=== PATIENT | male | born 1965 | race Caucasian/White ===

== ENCOUNTER 2019-11-17 17:40 | Inpatient (IN) | payer MEDICAID, SELFPAY ==
--- NOTE | 2019-11-17 17:54 | ED_ITS ---
HPI - Nausea/Vomiting/Diarrhea General Chief complaint: Fever Stated complaint: AMS Time Seen by Provider: 11/17/19 17:54 Source: patient Mode of arrival: EMS Limitations: altered mental status History of Present Illness HPI Narrative: 54-year-old male presents with nausea, vomiting, fever, and altered mental status. He is a patient at [facility], and nursing staff reports that this is a change of condition over the past 24 hour period. At this time, he is unable to answer questions accurately and appears to be confused. MD elicited complaint: nausea and vomiting Onset (ago): day(s) ( One) Description of vomiting: watery Location of pain: none Pain scale (0-10): 0 Relieving factors: none Associated symptoms: cough Related Data Home Medications Medication Instructions Recorded Confirmed cholecalciferol (vitamin D3) 2,000 unit PO DAILY 11/17/19 11/17/19 [Vitamin D3] diazepam 2 mg PO BEDTIME 11/17/19 11/17/19 divalproex [Depakote ER] 250 mg PO DAILY 11/17/19 11/17/19 divalproex [Depakote ER] 500 mg PO DAILY 11/17/19 11/17/19 melatonin 1 mg PO BEDTIME 11/17/19 11/17/19 metoprolol succinate 50 mg PO DAILY 11/17/19 11/17/19 metoprolol succinate 100 mg PO DAILY 11/17/19 11/17/19 polyethylene glycol 3350 1 packet PO DAILY 11/17/19 11/17/19 pregabalin [Lyrica] 300 mg PO BID 11/17/19 11/17/19 senna-docusate sodium [Senna Plus 1 tab PO BEDTIME 11/17/19 11/17/19 (senna-docusate)] Allergies Allergy/AdvReac Type Severity Reaction Status Date / Time aripiprazole [From ABILIFY] Allergy Unknown UNKNOWN Verified 11/17/19 20:30 droperidol [From INAPSINE] Allergy Unknown UNKNOWN Verified 11/17/19 20:30 haloperidol [From HALDOL] Allergy Unknown UNKNOWN Verified 11/17/19 20:30 prochlorperazine Allergy Unknown UNKNOWN Verified 11/17/19 20:30 [From COMPAZINE] promethazine [From PHENERGAN] Allergy Unknown UNKNOWN Verified 11/17/19 20:30 sulfamethoxazole Allergy Unknown UNKNOWN Verified 11/17/19 20:30 [From BACTRIM] trimethoprim [From BACTRIM] Allergy Unknown UNKNOWN Verified 11/17/19 20:30 Review of Systems Review of Systems: Constitutional: positive fever, positive chills, No Weight loss, No Night Sweats, No Fatigue, No Malaise ENT/Mouth: No Hearing loss, No Ear Pain, No Nasal Congestion, No Sinus Pain, No Hoarseness, No sore throat, No Rhinorrhea, No Swallowing Difficulty Eyes: No Eye Pain, No Swelling, No Redness, No Foreign Body, No Discharge, No Vision Changes Cardiovascular: positive wheezing, positive edema, No Chest Pain, No SOB, No Dyspnea on Exertion, No Orthopnea, No Palpitations Respiratory: positive Cough, No Sputum, No Wheezing, No Smoke Exposure, No Dyspnea Gastrointestinal: Positive Nausea, Positive Vomiting, no Diarrhea, noabdominal Pain, No Hematochezia, No Melena Genitourinary: no irregular bleeding, No Dysuria, No Urinary Frequency, No Hematuria, No Urinary Incontinence, No Urgency, No Flank Pain, No Urinary Flow Changes, No Hesitancy Musculoskeletal: No joint pain, No Myalgias, No Joint Swelling Skin: No Skin Lesions, No rash Neuro: No Weakness, No Numbness, No Paresthesias, No Loss of Consciousness, No Dizziness, No Headache Psych: No Anxiety/Panic, No Depression, No SI/HI/AH/VH, No Social Issues, Heme/Lymph: No Bruising, No Bleeding,No Lymphadenopathy Endocrine: No Polyuria, No Polydipsia, No Temperature Intolerance [facility] Past Medical History Medical History Deformity of left hand Epilepsy Generalized anxiety disorder Hypertension Major depressive disorder Mild cognitive impairment Social History Social History Household Members: Other Household Members Other:: Nursing facility Housing: Halfway Alcohol intake: unknown Smoking Status: Never smoker Second Hand Smoke Exposure: No Use of substances other than those prescribed or required for medical reasons: No Have you been hit, kicked, punched, or otherwise hurt by someone within the past year? If so, by whom?: No Do you feel safe in your current relationship?: Yes Is there a partner from a previous relationship who is making you feel unsafe now?: No Are you made to feel afraid or neglected: No Advance Directives: No Advance Directives Information Provided: Yes Do you have thoughts of harming others: None Do you have a plan to hurt others: No Plan Recently lost weight without trying: No Physical Exam Vital Signs: Vital Signs: Vital Signs Temp Pulse Resp BP Pulse Ox 11/17/19 20:26 100.9 F H 81 26 H 120/68 93 11/17/19 18:08 104.1 F H 84 22 H 129/69 92 Body Mass Index 38.0 Appearance: Alert. Oriented to person and situation. moderate distress, tachypneic. febrile Eyes: Pupils equal, round and reactive to light. ENT: Pharynx normal. Neck: Normal inspection. Neck supple. CVS: Normal heart rate and rhythm. Pulses normal. Respiratory: No respiratory distress. Breath sounds coarse throughout. Abdomen: Soft and nontender. Skin: Skin warm and dry. Normal skin color. Normal skin turgor. Extremities: No lower extremity edema. No lower extremity edema. Neuro: No motor deficit. No sensory deficit. Course Course Course Narrative: patient meets sirs criteria upon admission, to fluid resuscitation ordered, there is a high suspicion for aspiration pneumonia we will order antibiotics consistent For aspiration pneumonia, azithromycin and Zosyn. Antipyretics Tylenol p.o. and Toradol IV. This [employer] started fluid resuscitation and IV insertion. Patient will have to IV insertion sites. We will order CT scan of chest and abdomen. Reevaluation(s) Reevaluation #1: CT scan shows indication of aspiration. Discussion with hospitalist regarding plan of care to admit for sepsis and aspiration pneumonia. Time: 20:50 Consultations Consultation #1: Hany Time: 20:28 MDM - Nausea/Vomiting/Diarrhea Medical Records Attestation: I reviewed the patient's medical records. Lab Data Attestation: I reviewed the patient's lab results. Result diagrams: 11/17/19 18:22 11/17/19 18:22 Labs: Lab Results 11/17/19 11/17/19 11/17/19 Range/Units 18:22 18:22 18:22 WBC 9.6 (4.8-10.8) X10*3/uL RBC 5.30 (4.60-5.80) X10*6/uL Hgb 16.0 (14.0-18.0) g/dl Hct 48.8 (42-52) % MCV 92.1 (80-98) fL MCH 30.2 (27.0-33.0) pg MCHC 32.8 (31.0-36.0) g/dl RDW 13.5 (11.0-16.0) % Plt Count 86 L (160-400) X10*3/uL MPV 12.1 (9.4-12.4) fL Immature Gran % (Auto) 0.1 (0.0-0.4) % Neut % (Auto) 84.6 H (45-73) % Lymph % (Auto) 7.6 L (20-40) % [place] % (Auto) 6.9 (2-11) % Eos % (Auto) 0.6 (0-4) % Baso % (Auto) 0.2 (0-2) % Lymph # (Auto) 0.7 L (1.2-4.9) X10*3/uL [place] # (Auto) 0.7 (0.1-1.2) X10*3/uL Eos # (Auto) 0.1 (0.0-0.4) X10*3/uL Baso # (Auto) 0.0 (0.0-0.2) X10*3/uL Abs Immat Gran (auto) 0.01 (0.00-0.03) X10*3/uL Absolute Neuts (auto) 8.1 (2.0-8.3) X10*3/uL Absolute Nucleated RBC 0.000 (0.0-0.012) X10*3/uL Nucleated RBC % (auto) 0.0 (0.0-0.2) /100WBC PT 13.0 (10.8-13.0) SEC INR 1.1 (0.9-1.1) VBG pH (7.32-7.43) VBG pCO2 mmhg VBG Oxygen Liters/Min VBG pO2 mmhg VBG HCO3 mmol/L VBG O2 Saturation % VBG Base Excess mmol/L Sodium 146 H (135-145) mmol/L Potassium 4.2 (3.3-5.1) mmol/l Chloride 106 (96-108) mmol/L Carbon Dioxide 31 H (22-29) mmol/L Anion Gap 13 (12-20) BUN 28 H (9-16) mg/dL Creatinine 1.05 (0.5-1.4) mg/dL Estim Creat Clear Calc 95.1 Estimated GFR > 60 Random Glucose 135 H (60-115) mg/dL Lactic Acid (0.5-2.0) mmol/L Lactic Acid Fup @ 2Hr (0.5-2.0) mmol/L Calcium 9.3 (8.4-10.2) mg/dL Magnesium 1.8 (1.6-2.6) mg/dL Total Bilirubin 0.7 (0.0-1.0) mg/dL Direct Bilirubin 0.3 (0.0-0.5) mg/dL AST 15 (5-37) U/L ALT 11 (0-40) U/L Alkaline Phosphatase 58 (39-117) U/L Troponin I High Sens (<3.5-35.0) ng/L Total Protein 6.7 (6.5-8.0) g/dL Albumin 4.1 (3.5-5.0) g/dL Lipase 4 L (8-78) U/L 11/17/19 11/17/19 11/17/19 Range/Units 18:22 18:22 20:18 WBC (4.8-10.8) X10*3/uL RBC (4.60-5.80) X10*6/uL Hgb (14.0-18.0) g/dl Hct (42-52) % MCV (80-98) fL MCH (27.0-33.0) pg MCHC (31.0-36.0) g/dl RDW (11.0-16.0) % Plt Count (160-400) X10*3/uL MPV (9.4-12.4) fL Immature Gran % (Auto) (0.0-0.4) % Neut % (Auto) (45-73) % Lymph % (Auto) (20-40) % [place] % (Auto) (2-11) % Eos % (Auto) (0-4) % Baso % (Auto) (0-2) % Lymph # (Auto) (1.2-4.9) X10*3/uL [place] # (Auto) (0.1-1.2) X10*3/uL Eos # (Auto) (0.0-0.4) X10*3/uL Baso # (Auto) (0.0-0.2) X10*3/uL Abs Immat Gran (auto) (0.00-0.03) X10*3/uL Absolute Neuts (auto) (2.0-8.3) X10*3/uL Absolute Nucleated RBC (0.0-0.012) X10*3/uL Nucleated RBC % (auto) (0.0-0.2) /100WBC PT (10.8-13.0) SEC INR (0.9-1.1) VBG pH 7.39 (7.32-7.43) VBG pCO2 41 mmhg VBG Oxygen Liters/Min Not Reportable VBG pO2 70 mmhg VBG HCO3 24 mmol/L VBG O2 Saturation 94.4 % VBG Base Excess -0.8 mmol/L Sodium (135-145) mmol/L Potassium (3.3-5.1) mmol/l Chloride (96-108) mmol/L Carbon Dioxide (22-29) mmol/L Anion Gap (12-20) BUN (9-16) mg/dL Creatinine (0.5-1.4) mg/dL Estim Creat Clear Calc Estimated GFR Random Glucose (60-115) mg/dL Lactic Acid 2.6 H* (0.5-2.0) mmol/L Lactic Acid Fup @ 2Hr (0.5-2.0) mmol/L Calcium (8.4-10.2) mg/dL Magnesium (1.6-2.6) mg/dL Total Bilirubin (0.0-1.0) mg/dL Direct Bilirubin (0.0-0.5) mg/dL AST (5-37) U/L ALT (0-40) U/L Alkaline Phosphatase (39-117) U/L Troponin I High Sens 7.5 (<3.5-35.0) ng/L Total Protein (6.5-8.0) g/dL Albumin (3.5-5.0) g/dL Lipase (8-78) U/L 11/17/19 Range/Units 21:10 WBC (4.8-10.8) X10*3/uL RBC (4.60-5.80) X10*6/uL Hgb (14.0-18.0) g/dl Hct (42-52) % MCV (80-98) fL MCH (27.0-33.0) pg MCHC (31.0-36.0) g/dl RDW (11.0-16.0) % Plt Count (160-400) X10*3/uL MPV (9.4-12.4) fL Immature Gran % (Auto) (0.0-0.4) % Neut % (Auto) (45-73) % Lymph % (Auto) (20-40) % [place] % (Auto) (2-11) % Eos % (Auto) (0-4) % Baso % (Auto) (0-2) % Lymph # (Auto) (1.2-4.9) X10*3/uL [place] # (Auto) (0.1-1.2) X10*3/uL Eos # (Auto) (0.0-0.4) X10*3/uL Baso # (Auto) (0.0-0.2) X10*3/uL Abs Immat Gran (auto) (0.00-0.03) X10*3/uL Absolute Neuts (auto) (2.0-8.3) X10*3/uL Absolute Nucleated RBC (0.0-0.012) X10*3/uL Nucleated RBC % (auto) (0.0-0.2) /100WBC PT (10.8-13.0) SEC INR (0.9-1.1) VBG pH (7.32-7.43) VBG pCO2 mmhg VBG Oxygen Liters/Min VBG pO2 mmhg VBG HCO3 mmol/L VBG O2 Saturation % VBG Base Excess mmol/L Sodium (135-145) mmol/L Potassium (3.3-5.1) mmol/l Chloride (96-108) mmol/L Carbon Dioxide (22-29) mmol/L Anion Gap (12-20) BUN (9-16) mg/dL Creatinine (0.5-1.4) mg/dL Estim Creat Clear Calc Estimated GFR Random Glucose (60-115) mg/dL Lactic Acid (0.5-2.0) mmol/L Lactic Acid Fup @ 2Hr 1.3 (0.5-2.0) mmol/L Calcium (8.4-10.2) mg/dL Magnesium (1.6-2.6) mg/dL Total Bilirubin (0.0-1.0) mg/dL Direct Bilirubin (0.0-0.5) mg/dL AST (5-37) U/L ALT (0-40) U/L Alkaline Phosphatase (39-117) U/L Troponin I High Sens (<3.5-35.0) ng/L Total Protein (6.5-8.0) g/dL Albumin (3.5-5.0) g/dL Lipase (8-78) U/L Imaging Data CT scan - chest: Attestation: I personally reviewed and interpreted this imaging study as follows: Radiologist's impression: FINDINGS: CHEST: Lungs: Patchy bibasilar airspace disease is seen right more so the left. Suggestion of subtle tree-in-bud opacifications more likely representing infectious or inflammatory causes. There are some linear changes likely reflecting scarring or atelectasis as well. Mediastinum: Shotty mediastinal lymph nodes are again seen but no bulky hilar or mediastinal adenopathy. Air-filled esophagus suggests component of underlying esophageal dysmotility and/or reflux. Pericardium/Pleura: No significant effusion. No pleural mass or thickening. Chest Wall/Axilla: Unremarkable. ABDOMEN/PELVIS: Peritoneal Space:No significant free air or free fluid identified. Liver, Gallbladder, Biliary Tree: The non contrast liver is normal in size, shape, and attenuation. No focal hepatic lesion or biliary ductal dilatation is present. The gallbladder is unremarkable with no evidence of radiopaque gallstones, gallbladder wall thickening, or obvious pericholecystic inflammatory changes. Pancreas: Unremarkable. Spleen: Unremarkable. Adrenal Glands: Unremarkable. Kidneys and Ureters: The kidneys are normal in size, shape, and attenuation. No hydronephrosis, hydroureter, or calculi seen. No perinephric stranding. Bladder: Unremarkable. Gastrointestinal Tract: Large amount of stool seen distending the rectum and rectosigmoid colon. Anastomotic staple line in the sigmoid colon without obstruction. There is scattered colonic diverticulosis but no evidence for diverticulitis. Appendix is likely surgically absent. Abdominal Wall: Nonobstructed midline infraumbilical hernia containing small bowel and mesenteric fat Lymphovascular Structures: No lymphadenopathy. The aorta is unremarkable.. Pelvic Viscera: Unremarkable. Osseus Structures: Degenerative changes seen in the spine. There is evidence for prior right transverse process fractures associated fatty replacement of the right paraspinal muscles. I do not appreciate any definitive acute bony abnormality. IMPRESSION: Large stool seen throughout the rectum and rectosigmoid with nonobstructed anastomotic staple line in the sigmoid colon. There is scattered diverticulosis but no evidence for diverticulitis. I do not appreciate any definitive acute abnormality within the abdomen or pelvis otherwise. There is patchy airspace disease seen more so in the right lower lobe and dependent right upper lobe. Infectious or inflammatory causes would be favored. Silent aspiration could have this appearance and there is air filled esophagus which could be seen in the setting of reflux and/or dysmotility. This could be clinically correlated. CT scan - abdomen: Attestation: I personally reviewed and interpreted this imaging study as follows: Chest x-ray: Attestation: I personally reviewed and interpreted this imaging study as follows: Radiologist's impression: FINDINGS: Bibasilar subsegmental atelectasis. No parenchymal consolidation. No pleural effusion. No pneumothorax. Cardiomediastinal silhouette and pulmonary vascularity are within normal limits. No acute osseous abnormalities. IMPRESSION: No focal consolidation. Bibasilar subsegmental atelectasis. ECG Data Attestation: I personally reviewed and interpreted this ECG as follows: ECG interpretation date: 11/17/19 ECG interpretation time: 18:13 Prior ECG tracings: available for review Interpretation: Vent. Rate : 080 BPM Atrial Rate : 080 BPM P-R Int : 166 ms QRS Dur : 084 ms QT Int : 352 ms P-R-T Axes : 039 -12 027 degrees QTc Int : 405 ms Normal sinus rhythm Normal ECG When compared with ECG of 07-JUN-2016 12:16, No significant change was found Critical Care Time Critical Care Time Critical Care Time: Yes Total Critical Care Time: 75 Attestation: I have personally provided critical care time exclusive of time spent on separately billable procedures. Time includes review of laboratory data, radiology results, discussion with consultants, and monitoring for potential decompensation. Interventions were performed as documented. Discharge Plan Discharge Clinical Impression: Aspiration pneumonia Qualifiers: Aspiration pneumonia type: due to gastric secretions Laterality: bilateral Lung location: unspecified part of lung Qualified Code(s): J69.0 - Pneumonitis due to inhalation of food and vomit Sepsis Qualifiers: Sepsis type: sepsis due to unspecified organism Sepsis acute organ dysfunction status: unspecified Qualified Code(s): A41.9 - Sepsis, unspecified organism Patient Disposition: Admitted As Inpatient Interventions: Admission Worksheet (ED) Last Done: 11/17/19 23:41 Discharge Date/Time: 11/17/19 23:50
--- NOTE | 2019-11-17 17:56 | XR_ITS ---
EXAMINATION: XR CHEST CLINICAL INFORMATION: Nausea, vomiting and fever COMPARISON: 06/07/2016 TECHNIQUE: Frontal view of the chest was obtained. FINDINGS: Bibasilar subsegmental atelectasis. No parenchymal consolidation. No pleural effusion. No pneumothorax. Cardiomediastinal silhouette and pulmonary vascularity are within normal limits. No acute osseous abnormalities. IMPRESSION: No focal consolidation. Bibasilar subsegmental atelectasis.
--- NOTE | 2019-11-17 17:56 | ECG_ITS ---
Test Reason : SEPSIS Blood Pressure : / mmHG Vent. Rate : 080 BPM Atrial Rate : 080 BPM P-R Int : 166 ms QRS Dur : 084 ms QT Int : 352 ms P-R-T Axes : 039 -12 027 degrees QTc Int : 405 ms Normal sinus rhythm Left axis deviation Otherwise normal ECG When compared with ECG of 07-JUN-2016 12:16, No significant change was found Referred By: Pati Shah Electronically Signed By:CORTEZ STEVENS MD
[2019-11-17 18:08] VITALS: BP 129/69; PULSE 84; RESP 22; TEMP 40.1; O2SAT 92; BMI 38.0
[2019-11-17 18:30] LABS: MANUAL DIFF FLAG NO
[2019-11-17 18:31] LABS: Basophils Percent Auto 0.2 % (0-2); Eosinophils Absolute Auto 0.1 X10*3/uL (0.0-0.4); Eosinophils Percent Auto 0.6 % (0-4); Hematocrit 48.8 % (42-52); Imm Gran Abs Auto 0.01 X10*3/uL (0.00-0.03); Imm Gran Pct Auto 0.1 % (0.0-0.4); Lymphocytes Absolute Auto 0.7 X10*3/uL (1.2-4.9); Lymphocytes Percent Auto 7.6 % (20-40); Mean Corpuscular HGB Conc 32.8 g/dl (31.0-36.0); Mean Corpuscular Hemoglobin 30.2 pg (27.0-33.0); Mean Corpuscular Volume 92.1 fL (80-98); Mean Platelet Volume 12.1 fL (9.4-12.4); Monocytes Absolute Auto 0.7 X10*3/uL (0.1-1.2); Monocytes Percent Auto 6.9 % (2-11); Neutrophils Absolute Auto 8.1 X10*3/uL (2.0-8.3); Neutrophils Percent Auto 84.6 % (45-73); Red Cell Distribution Width 13.5 % (11.0-16.0); White Blood Count 9.6 X10*3/uL (4.8-10.8)
[2019-11-17] MEDS: 0.9 % Sodium Chloride 1,000 ML 999 ML IVCONT ×3 (18:37)
[2019-11-17 18:40] LABS: Platelet Count 86 X10*3/uL (160-400)
[2019-11-17 18:45] LABS: INTERNATIONAL NORM RATIO 1.1 (0.9-1.1)
[2019-11-17] MEDS: Ketorolac Tromethamine 30 MG/ML VIAL IVPUSH (18:49)
[2019-11-17] MEDS: Piperacillin Sodium/Tazobactam 3.375 GM in 0.9 % Sodium Chloride 50 ML IV (18:50)
[2019-11-17] MEDS: Acetaminophen 325 MG TABLET 975 MG PO (18:50)
--- NOTE | 2019-11-17 19:05 | CT_ITS ---
EXAMINATION: CT CHEST, ABDOMEN AND PELVIS WITHOUT CONTRAST. CLINICAL INFORMATION: nausea vomiting . COMPARISON: 06/07/2016 CT scan of the chest.. TECHNIQUE: Multidetector volumetric imaging was performed from the thoracic inlet through the pubic symphysis without intravenous contrast. Sagittal and coronal reformatted images were obtained on the technologist workstation. This CT examination was performed using dose optimization techniques as appropriate, variously including the following: *Automated exposure control *Adjustment of mA and/or kV according to patient size (this includes techniques or standardized protocols for targeted exams where dose is matched to indication/reason for exam; i.e. extremities or head) *Use of iterative reconstruction technique DLP: 1260 mGy-cm FINDINGS: CHEST: Lungs: Patchy bibasilar airspace disease is seen right more so the left. Suggestion of subtle tree-in-bud opacifications more likely representing infectious or inflammatory causes. There are some linear changes likely reflecting scarring or atelectasis as well. Mediastinum: Shotty mediastinal lymph nodes are again seen but no bulky hilar or mediastinal adenopathy. Air-filled esophagus suggests component of underlying esophageal dysmotility and/or reflux. Pericardium/Pleura: No significant effusion. No pleural mass or thickening. Chest Wall/Axilla: Unremarkable. ABDOMEN/PELVIS: Peritoneal Space:No significant free air or free fluid identified. Liver, Gallbladder, Biliary Tree: The non contrast liver is normal in size, shape, and attenuation. No focal hepatic lesion or biliary ductal dilatation is present. The gallbladder is unremarkable with no evidence of radiopaque gallstones, gallbladder wall thickening, or obvious pericholecystic inflammatory changes. Pancreas: Unremarkable. Spleen: Unremarkable. Adrenal Glands: Unremarkable. Kidneys and Ureters: The kidneys are normal in size, shape, and attenuation. No hydronephrosis, hydroureter, or calculi seen. No perinephric stranding. Bladder: Unremarkable. Gastrointestinal Tract: Large amount of stool seen distending the rectum and rectosigmoid colon. Anastomotic staple line in the sigmoid colon without obstruction. There is scattered colonic diverticulosis but no evidence for diverticulitis. Appendix is likely surgically absent. Abdominal Wall: Nonobstructed midline infraumbilical hernia containing small bowel and mesenteric fat Lymphovascular Structures: No lymphadenopathy. The aorta is unremarkable.. Pelvic Viscera: Unremarkable. Osseus Structures: Degenerative changes seen in the spine. There is evidence for prior right transverse process fractures associated fatty replacement of the right paraspinal muscles. I do not appreciate any definitive acute bony abnormality. IMPRESSION: Large stool seen throughout the rectum and rectosigmoid with nonobstructed anastomotic staple line in the sigmoid colon. There is scattered diverticulosis but no evidence for diverticulitis. I do not appreciate any definitive acute abnormality within the abdomen or pelvis otherwise. There is patchy airspace disease seen more so in the right lower lobe and dependent right upper lobe. Infectious or inflammatory causes would be favored. Silent aspiration could have this appearance and there is air filled esophagus which could be seen in the setting of reflux and/or dysmotility. This could be clinically correlated.
[2019-11-17 19:07] LABS: Alanine Aminotransferase 11 U/L (0-40); Albumin Level 4.1 g/dL (3.5-5.0); Alkaline Phosphatase 58 U/L (39-117); Anion Gap 13 (12-20); Aspartate Amino Transferase 15 U/L (5-37); Bilirubin Direct 0.3 mg/dL (0.0-0.5); Bilirubin Total 0.7 mg/dL (0.0-1.0); Blood Urea Nitrogen 28 mg/dL (9-16); Calcium 9.3 mg/dL (8.4-10.2); Carbon Dioxide 31 mmol/L (22-29); Chloride 106 mmol/L (96-108); Creatinine Clr Calc Pharmacy 95.1; Estimated Glomerular Filt Rate > 60; Glucose Random 135 mg/dL (60-115); Lipase 4 U/L (8-78); Magnesium 1.8 mg/dL (1.6-2.6); Potassium 4.2 mmol/l (3.3-5.1); Sodium 146 mmol/L (135-145); Total Protein 6.7 g/dL (6.5-8.0)
[2019-11-17 19:09] LABS: Troponin-I High Sensitivity 7.5 ng/L (<3.5-35.0)
[2019-11-17 19:12] LABS: Lactic Acid 2.6 mmol/L (0.5-2.0)
[2019-11-17 20:22] LABS: Base Excess VBG -0.8 mmol/L; HCO3 VBG 24 mmol/L; PCO2 VBG 41 mmhg; PO2 VBG 70 mmhg; pH VBG 7.39 (7.32-7.43)
[2019-11-17 20:23] LABS: Oxygen Saturation VBG 94.4 %
[2019-11-17 20:25] LABS: Reflex Lactate? Lactic Acid Added
[2019-11-17 20:26] VITALS: BP 120/68; PULSE 81; RESP 26; TEMP 38.3; O2SAT 93
[2019-11-17] MEDS: Azithromycin 500 MG in 0.9 % Sodium Chloride 250 ML 250 MG IV (20:32)
[2019-11-17 21:42] LABS: ~Lactic Acid-LAB USE ONLY 1.3 mmol/L (0.5-2.0)
[2019-11-17 21:46] VITALS: BP 107/62; PULSE 72; RESP 25; TEMP 37.7; O2SAT 95
[2019-11-17 22:10] VITALS: BP 121/71; PULSE 81; RESP 18; TEMP 37.9; O2SAT 94
--- NOTE | 2019-11-17 22:10 | PC.NURSE ---
Pt incontinent of urine. cleansed and repositioned. skin integrety is good. pt is aler. aware ofplan of are. no complaints at this time. po foods provided.
--- NOTE | 2019-11-17 23:43 | PM.IMHP ---
History of Present Illness Date of Service: 11/17/19 Chief Complaint: vomiting, fever this is a 54-year-old male, resident of [facility], with past medical history of neuroleptic malignant syndrome, hypertension, depression anxiety who presents to the hospital vomiting and fever. When discussed with patient he reports that he usually gets his breakfast in bed after the Covert pending michelle, and after finishing his breakfast he went to lay down but developed multiple episodes of vomiting. He reports he vomited while lying down Shortly after having breakfast. he denies having any shortness of breath, chest pain, or cough prior to this happening and post the vomiting patient developed a mild fever at [facility] and was brought here. Unclear how high the fever was. denies any hx of dysphagia or difficulty swallowing. Currently patient reports no cough, no sputum production, reports chills with no fever, no pleuritic chest pain, no shortness of breath no palpitations no abdominal pain, no diarrhea constipation, no urinary symptoms and no lower extremity edema. On arrival to the ED patient had temperature on 104.1, pulse rate of 84, respiratory rate of 22, blood pressure of 129/69, satting 92% on room air labs significant for sodium of 146, lactic acid of 2.6, which improved to 1.3 after fluids, otherwise unremarkable chest CT showed patchy airspace disease see more so in the right lower lobe and the hand and right upper lobe CT abdomen showed large stool throughout the rectum and rectosigmoid with nonobstructed anastomotic staple line in the sigmoid colon, past medical history: Hypertension, depression, anxiety, neuroleptic malignant syndrome past surgical history: Arm, ankle, and stomach surgery? patient not sure family history: father had prostate cancer mother had cancer of the kidney social history:from [facility], denies any tobacco alcohol or illicit drugs Review of Systems Review of Systems: Yes all other systems are reviewed and are negative [facility] Medical History Deformity of left hand Epilepsy Generalized anxiety disorder Hypertension Major depressive disorder Mild cognitive impairment Social History Household Members: Other Household Members Other:: Nursing facility Housing: Halfway Alcohol intake: unknown Smoking Status: Never smoker Second Hand Smoke Exposure: No Use of substances other than those prescribed or required for medical reasons: No Have you been hit, kicked, punched, or otherwise hurt by someone within the past year? If so, by whom?: No Do you feel safe in your current relationship?: Yes Is there a partner from a previous relationship who is making you feel unsafe now?: No Are you made to feel afraid or neglected: No Advance Directives: No Advance Directives Information Provided: Yes Do you have thoughts of harming others: None Do you have a plan to hurt others: No Plan Recently lost weight without trying: No Meds Allergies Allergy/AdvReac Type Severity Reaction Status Date / Time aripiprazole [From ABILIFY] Allergy Unknown UNKNOWN Verified 11/17/19 20:30 droperidol [From INAPSINE] Allergy Unknown UNKNOWN Verified 11/17/19 20:30 haloperidol [From HALDOL] Allergy Unknown UNKNOWN Verified 11/17/19 20:30 prochlorperazine Allergy Unknown UNKNOWN Verified 11/17/19 20:30 [From COMPAZINE] promethazine [From PHENERGAN] Allergy Unknown UNKNOWN Verified 11/17/19 20:30 sulfamethoxazole Allergy Unknown UNKNOWN Verified 11/17/19 20:30 [From BACTRIM] trimethoprim [From BACTRIM] Allergy Unknown UNKNOWN Verified 11/17/19 20:30 Home Medications Medication Instructions Recorded Confirmed Type cholecalciferol (vitamin D3) 2,000 unit PO DAILY 11/17/19 11/17/19 History [Vitamin D3] diazepam 2 mg PO BEDTIME 11/17/19 11/17/19 History divalproex [Depakote ER] 250 mg PO DAILY 11/17/19 11/17/19 History divalproex [Depakote ER] 500 mg PO DAILY 11/17/19 11/17/19 History melatonin 1 mg PO BEDTIME 11/17/19 11/17/19 History metoprolol succinate 50 mg PO DAILY 11/17/19 11/17/19 History metoprolol succinate 100 mg PO DAILY 11/17/19 11/17/19 History polyethylene glycol 3350 1 packet PO DAILY 11/17/19 11/17/19 History pregabalin [Lyrica] 300 mg PO BID 11/17/19 11/17/19 History senna-docusate sodium [Senna Plus 1 tab PO BEDTIME 11/17/19 11/17/19 History (senna-docusate)] Physical Exam Vital Signs and Narrative: Vital Signs: Last Vital Signs Temp 100.2 F 11/17/19 22:10 Pulse 81 11/17/19 22:10 Resp 18 11/17/19 22:10 BP 121/71 11/17/19 22:10 Pulse Ox 94 11/17/19 22:10 Body Mass Index 38.0 Const: General: cooperative and no acute distress Orientation/consciousness: patient oriented x3 Eyes: General: appearance normal, both eyes and all related structures Pupils: Equal, round and reactive pupils present Resp: Effort & Inspection: normal respiratory effort and able to speak in complete sentences Auscultation: clear to auscultation bilaterally Cardio: Rate: regular rate Rhythm: regular rhythm GI: Palpation (GI): Soft to palpation Auscultation: normal bowel sounds Skin: General skin exam: no rashes or lesions noted Neuro: General: patient oriented x3 Cranial nerves: Yes Equal, round and reactive pupils present Cognition (Neuro): normal cognition Extrem: General: Yes normal to inspection and Yes no pedal edema Results Labs Labs: Laboratory Tests 11/17/19 11/17/19 11/17/19 18:22 18:22 18:22 WBC 9.6 RBC 5.30 Hgb 16.0 Hct 48.8 MCV 92.1 MCH 30.2 MCHC 32.8 RDW 13.5 Plt Count 86 L MPV 12.1 Immature Gran % (Auto) 0.1 Neut % (Auto) 84.6 H Lymph % (Auto) 7.6 L [place] % (Auto) 6.9 Eos % (Auto) 0.6 Baso % (Auto) 0.2 Lymph # (Auto) 0.7 L [place] # (Auto) 0.7 Eos # (Auto) 0.1 Baso # (Auto) 0.0 Abs Immat Gran (auto) 0.01 Absolute Neuts (auto) 8.1 Absolute Nucleated RBC 0.000 Nucleated RBC % (auto) 0.0 PT 13.0 INR 1.1 VBG pH VBG pCO2 VBG Oxygen Liters/Min VBG pO2 VBG HCO3 VBG O2 Saturation VBG Base Excess Sodium 146 H Potassium 4.2 Chloride 106 Carbon Dioxide 31 H Anion Gap 13 BUN 28 H Creatinine 1.05 Estim Creat Clear Calc 95.1 Estimated GFR > 60 Random Glucose 135 H Lactic Acid Lactic Acid Fup @ 2Hr Calcium 9.3 Magnesium 1.8 Total Bilirubin 0.7 Direct Bilirubin 0.3 AST 15 ALT 11 Alkaline Phosphatase 58 Troponin I High Sens Total Protein 6.7 Albumin 4.1 Lipase 4 L 11/17/19 11/17/19 11/17/19 18:22 18:22 20:18 WBC RBC Hgb Hct MCV MCH MCHC RDW Plt Count MPV Immature Gran % (Auto) Neut % (Auto) Lymph % (Auto) [place] % (Auto) Eos % (Auto) Baso % (Auto) Lymph # (Auto) [place] # (Auto) Eos # (Auto) Baso # (Auto) Abs Immat Gran (auto) Absolute Neuts (auto) Absolute Nucleated RBC Nucleated RBC % (auto) PT INR VBG pH 7.39 VBG pCO2 41 VBG Oxygen Liters/Min Not Reportable VBG pO2 70 VBG HCO3 24 VBG O2 Saturation 94.4 VBG Base Excess -0.8 Sodium Potassium Chloride Carbon Dioxide Anion Gap BUN Creatinine Estim Creat Clear Calc Estimated GFR Random Glucose Lactic Acid 2.6 H* Lactic Acid Fup @ 2Hr Calcium Magnesium Total Bilirubin Direct Bilirubin AST ALT Alkaline Phosphatase Troponin I High Sens 7.5 Total Protein Albumin Lipase 11/17/19 21:10 WBC RBC Hgb Hct MCV MCH MCHC RDW Plt Count MPV Immature Gran % (Auto) Neut % (Auto) Lymph % (Auto) [place] % (Auto) Eos % (Auto) Baso % (Auto) Lymph # (Auto) [place] # (Auto) Eos # (Auto) Baso # (Auto) Abs Immat Gran (auto) Absolute Neuts (auto) Absolute Nucleated RBC Nucleated RBC % (auto) PT INR VBG pH VBG pCO2 VBG Oxygen Liters/Min VBG pO2 VBG HCO3 VBG O2 Saturation VBG Base Excess Sodium Potassium Chloride Carbon Dioxide Anion Gap BUN Creatinine Estim Creat Clear Calc Estimated GFR Random Glucose Lactic Acid Lactic Acid Fup @ 2Hr 1.3 Calcium Magnesium Total Bilirubin Direct Bilirubin AST ALT Alkaline Phosphatase Troponin I High Sens Total Protein Albumin Lipase Assessment and Plan (1) Aspiration pneumonia: Qualifiers: Aspiration pneumonia type: due to gastric secretions Laterality: bilateral Lung location: unspecified part of lung Qualified Code(s): J69.0 - Pneumonitis due to inhalation of food and vomit Status: Acute (2) Sepsis: Qualifiers: Sepsis acute organ dysfunction status: unspecified Sepsis type: sepsis due to unspecified organism Qualified Code(s): A41.9 - Sepsis, unspecified organism Status: Acute (3) Constipation: Status: Acute (4) Hypertension: Status: Acute (5) Generalized anxiety disorder: Status: Acute (6) Epilepsy: Status: Acute (7) Lactic acidosis: Status: Acute this is a 54-year-old male with past medical history who presents after having aspiration of his vomitus # Sepsis - 2/2 aspiration pna - febrile, tachycardia lactic acidosis - CT as above - no hypoxia plan: - Unasyn - blood cultures # aspiration pneumonia - developed after vomiting while lying in bed - pt has no hx of dysphgia or difficulty swallowing - has sepsis secondary to this pneumonia with fever, tachypnea - lactic acidosis Plan: - IV antibiotics with Unasyn - respiratory status monitoring - blood cultures # lactic acidosis - secondary to sepsis as above - resolved with IV fluids # constipation - significant amount of stool seen on CT of the abdomen - will start patient on bowel regimen # hypertension - continue home metoprolol # epilepsy - continue Depakote DVT prophylaxis Lovenox date of service 11/17/2019
[2019-11-17 23:57] VITALS: BP 125/83; PULSE 64; RESP 18; TEMP 37.8; O2SAT 96
[2019-11-18] VITALS (8 sets, daily range): BP systolic 102–128; BP diastolic 55–76; PULSE 54–120; RESP 16–25; TEMP 36.1–36.7; O2SAT 80–98; BMI 43.9
[2019-11-18] MEDS: Lactated Ringers 1,000 ML 100 ML IVCONT (00:01)
[2019-11-18] MEDS: 0.9 % Sodium Chloride Flush 3 ML SYRINGE IVFLUSH ×3 (00:04→20:59)
[2019-11-18] MEDS: Enoxaparin Sodium 40 MG/0.4 ML SYRINGE SUBCUT ×2 (00:04→23:58)
[2019-11-18] MEDS: Ampicillin Sodium/Sulbactam Na 3 GM in 0.9 % Sodium Chloride 100 ML IV ×3 (03:28→20:56)
[2019-11-18 06:25] LABS: MANUAL DIFF FLAG NO
[2019-11-18 06:44] LABS: Basophils Percent Auto 0.3 % (0-2); Eosinophils Percent Auto 0.4 % (0-4); Hematocrit 43.5 % (42-52); Hemoglobin 13.9 g/dl (14.0-18.0); Imm Gran Abs Auto 0.04 X10*3/uL (0.00-0.03); Imm Gran Pct Auto 0.4 % (0.0-0.4); Lymphocytes Absolute Auto 2.2 X10*3/uL (1.2-4.9); Lymphocytes Percent Auto 21.8 % (20-40); Mean Corpuscular Hemoglobin 30.2 pg (27.0-33.0); Mean Corpuscular Volume 94.6 fL (80-98); Mean Platelet Volume 12.8 fL (9.4-12.4); Monocytes Percent Auto 9.5 % (2-11); Neutrophils Absolute Auto 6.9 X10*3/uL (2.0-8.3); Neutrophils Percent Auto 67.6 % (45-73); Red Cell Distribution Width 13.9 % (11.0-16.0); White Blood Count 10.2 X10*3/uL (4.8-10.8)
[2019-11-18 07:07] LABS: Anion Gap 12 (12-20); Blood Urea Nitrogen 20 mg/dL (9-16); Calcium 8.2 mg/dL (8.4-10.2); Carbon Dioxide 27 mmol/L (22-29); Chloride 112 mmol/L (96-108); Creatinine Clr Calc Pharmacy 131.8; Estimated Glomerular Filt Rate > 60; Glucose Random 74 mg/dL (60-115); Potassium 4.2 mmol/l (3.3-5.1); Sodium 147 mmol/L (135-145)
[2019-11-18 07:12] LABS: Platelet Count 84 X10*3/uL (160-400)
[2019-11-18] MEDS: Cholecalciferol (Vitamin D3) 25 MCG TABLET PO (08:52)
[2019-11-18] MEDS: Pregabalin 150 MG CAPSULE 300 MG PO ×2 (08:52→20:58)
[2019-11-18] MEDS: Divalproex Sodium ER 500 MG TAB.ER.24H PO (08:52)
[2019-11-18] MEDS: Divalproex Sodium ER 250 MG TAB.ER.24H PO (08:52)
[2019-11-18] MEDS: polyethylene glycoL 3350 17 GM POWD.PACK PO (08:52)
--- NOTE | 2019-11-18 12:14 | MHC.CM.PN ---
CM met with patient at the bedside who reports he needs some assistance with ADL's and resides at [facility]. Patient states he has a HCP, requested copy. Discussed discharge plan, return to [facility] [place] via BLS transport. CM will continue to follow for discharge needs.
--- NOTE | 2019-11-18 17:03 | HO.PM.IMPN ---
Subjective Subjective Date of Service: 11/18/19 Interval History: the patient was seen and evaluated this morning Laying in bed, feels comfortable Denies any fever, chills or shortness of breath No reported other overnight events. Review of Systems Review of Systems: Yes all other systems are reviewed and are negative Physical Exam Vital Signs: Vital Signs: Vital Signs Temp Pulse Resp BP Pulse Ox 11/18/19 15:43 97.6 F 62 18 122/60 97 11/18/19 12:00 97.3 F 59 18 103/56 L 95 11/18/19 08:58 54 11/18/19 07:43 97.6 F 57 18 120/55 L 96 11/18/19 03:52 98.0 F 61 16 102/57 L 96 11/17/19 23:57 100.0 F 64 18 125/83 96 11/17/19 22:10 100.2 F 81 18 121/71 94 11/17/19 21:46 100 F 72 25 H 107/62 95 11/17/19 20:26 100.9 F H 81 26 H 120/68 93 11/17/19 18:08 104.1 F H 84 22 H 129/69 92 Body Mass Index 43.9 Constitutional : Alert, oriented, not in distress Neck : Normal inspection, Supple Cardiovascular : RRR, S1 S2, no lower extremity edema Respiratory : Good bilateral air entry, basal bilateral crackles mainly on the right side, no wheezes or rhonchi Gastrointestinal: soft, lax, Normal bowel sounds, Non tender Skin : Warm/Dry, No rash Neurological : Alert & oriented x3, No focal deficit Objective Data Current Medications Generic Name Dose Route Start Last Admin Trade Name Terenceq PRN Reason Stop Dose Admin Acetaminophen 650 mg 11/17/19 22:34 Acetaminophen 325 Mg Tablet PO Q6H PRN Pain, Mild (Pain Scale 1-3) Diazepam 2 mg 11/18/19 21:00 Diazepam 2 Mg Tablet PO BEDTIME MAIA Divalproex Sodium 500 mg 11/18/19 09:00 11/18/19 08:52 Divalproex Sodium Er 500 Mg Tab.Er.24h PO 500 mg DAILY MAIA Administration Divalproex Sodium 250 mg 11/18/19 09:00 11/18/19 08:52 Divalproex Sodium Er 250 Mg Tab.Er.24h PO 250 mg DAILY MAIA Administration Docusate Sodium 100 mg 11/17/19 22:34 Docusate Sodium 100 Mg Capsule PO DAILY PRN Constipation Enoxaparin Sodium 40 mg 11/17/19 23:00 11/18/19 00:04 Enoxaparin Sodium 40 Mg/0.4 Ml Syringe SUBCUT 40 mg Q24H MAIA Administration Ampicillin Sodium/Sulbactam 100 mls @ 200 mls/hr 11/18/19 03:00 11/18/19 13:28 Sodium 3 gm/ Sodium Chloride IV Infused Q8H MAIA Infusion Magnesium Hydroxide 15 ml 11/18/19 05:42 Milk Of Magnesia 30 Ml Oral.Susp PO BID PRN Constipation Metoprolol Succinate 50 mg 11/18/19 09:00 11/18/19 08:58 Metoprolol Succinate Er 50 Mg Tab.Er.24h PO Not Given DAILY [facility] Protocol Metoprolol Succinate 100 mg 11/18/19 09:00 11/18/19 08:58 Metoprolol Succinate Er 100 Mg Tab.Er.24h PO Not Given DAILY [facility] Protocol Ondansetron HCl 4 mg 11/17/19 22:34 Ondansetron Hcl 4 Mg/2 Ml Vial IVPUSH Q8H PRN Nausea and Vomiting Polyethylene Glycol 17 gm 11/18/19 09:00 11/18/19 08:52 Polyethylene Glycol 3350 17 Gm Powd.Pack PO 17 gm DAILY MAIA Administration Pregabalin 300 mg 11/18/19 09:00 11/18/19 08:52 Pregabalin 150 Mg Capsule PO 300 mg BID MAIA Administration Sodium Chloride 3 ml 11/18/19 00:00 11/18/19 08:54 0.9 % Sodium Chloride Flush 3 Ml Syringe IVFLUSH 3 ml QSHIFT MAIA Administration Vitamin D 25 mcg 11/18/19 09:00 11/18/19 08:52 Cholecalciferol (Vitamin D3) 25 Mcg Tablet PO 25 mcg DAILY MAIA Administration Labs CBC & Chem 7: 11/18/19 05:16 11/18/19 05:16 Assessment and Plan (1) Sepsis: Status: Acute (2) Aspiration pneumonia: Status: Acute (3) Constipation: Status: Acute (4) Hypertension: Status: Acute (5) Generalized anxiety disorder: Status: Acute (6) Epilepsy: Status: Acute Assessment and Plan: this is a 54-year-old male with past medical history mild cognitive impairment, depression, anxiety, epilepsy who presents after having aspiration of his vomitus in picture of sepsis Sepsis, resolved Secondary to aspiration pneumonia CT scan showing bilateral basal changes more in the right side suggestive infiltrate Pending blood cultures Continue Unasyn lactic acidosis Resolved constipation significant amount of stool seen on CT of the abdomen continue bowel regimen hypertension continue home metoprolol epilepsy continue Depakote DVT prophylaxis Lovenox
[2019-11-18] MEDS: diazePAM 2 MG TABLET PO (20:59)
[2019-11-19] VITALS (8 sets, daily range): BP systolic 113–138; BP diastolic 57–76; PULSE 52–78; RESP 16–18; TEMP 36.5–37.1; O2SAT 94–96; BMI 40.1
[2019-11-19] MEDS: 0.9 % Sodium Chloride Flush 3 ML SYRINGE IVFLUSH ×3 (01:16→16:57)
[2019-11-19] MEDS: Ampicillin Sodium/Sulbactam Na 3 GM in 0.9 % Sodium Chloride 100 ML IV ×3 (03:55→19:53)
[2019-11-19 06:23] LABS: MANUAL DIFF FLAG NO
[2019-11-19 06:46] LABS: Basophils Percent Auto 0.5 % (0-2); Eosinophils Absolute Auto 0.2 X10*3/uL (0.0-0.4); Eosinophils Percent Auto 3.5 % (0-4); Hematocrit 41.8 % (42-52); Hemoglobin 13.4 g/dl (14.0-18.0); Imm Gran Abs Auto 0.02 X10*3/uL (0.00-0.03); Imm Gran Pct Auto 0.3 % (0.0-0.4); Lymphocytes Absolute Auto 1.6 X10*3/uL (1.2-4.9); Lymphocytes Percent Auto 27.3 % (20-40); Mean Corpuscular HGB Conc 32.1 g/dl (31.0-36.0); Mean Corpuscular Hemoglobin 30.1 pg (27.0-33.0); Mean Corpuscular Volume 93.9 fL (80-98); Mean Platelet Volume 12.3 fL (9.4-12.4); Monocytes Absolute Auto 0.6 X10*3/uL (0.1-1.2); Monocytes Percent Auto 9.4 % (2-11); Neutrophils Absolute Auto 3.5 X10*3/uL (2.0-8.3); Red Blood Count 4.45 X10*6/uL (4.60-5.80); White Blood Count 5.9 X10*3/uL (4.8-10.8)
[2019-11-19 06:48] LABS: Platelet Count 79 X10*3/uL (160-400)
[2019-11-19 07:10] LABS: Anion Gap 10 (12-20); Blood Urea Nitrogen 21 mg/dL (9-16); Calcium 8.2 mg/dL (8.4-10.2); Carbon Dioxide 30 mmol/L (22-29); Chloride 112 mmol/L (96-108); Creatinine Clr Calc Pharmacy 137.1; Estimated Glomerular Filt Rate > 60; Glucose Random 86 mg/dL (60-115); Potassium 3.8 mmol/l (3.3-5.1); Sodium 148 mmol/L (135-145)
[2019-11-19] MEDS: Cholecalciferol (Vitamin D3) 25 MCG TABLET PO (08:08)
[2019-11-19] MEDS: Pregabalin 150 MG CAPSULE 300 MG PO ×2 (08:08→20:07)
[2019-11-19] MEDS: Divalproex Sodium ER 500 MG TAB.ER.24H PO (08:08)
[2019-11-19] MEDS: Divalproex Sodium ER 250 MG TAB.ER.24H PO (08:08)
[2019-11-19] MEDS: Metoprolol Succinate ER 50 MG TAB.ER.24H PO (08:09)
[2019-11-19] MEDS: polyethylene glycoL 3350 17 GM POWD.PACK PO (08:10)
[2019-11-19] MEDS: Metoprolol Succinate ER 100 MG TAB.ER.24H PO (09:37)
--- NOTE | 2019-11-19 13:00 | HO.PM.IMPN ---
Subjective Subjective Date of Service: 11/19/19 Interval History: weakness Respiratory Respiratory: Reports no additional respiratory complaints Gastrointestinal Gastrointestinal: Reports no additional gastrointestinal complaints Physical Exam Vital Signs: Vital Signs: Vital Signs Temp Pulse Resp BP Pulse Ox 11/19/19 11:12 97.7 F 53 18 118/68 11/19/19 09:37 78 11/19/19 08:09 75 11/19/19 08:00 98.1 F 78 18 128/76 94 11/19/19 03:54 98.6 F 57 18 133/69 94 11/18/19 23:43 97.6 F 67 18 124/76 98 11/18/19 19:10 97 F 69 20 119/63 96 11/18/19 17:59 97.8 F 120 H 25 H 128/61 80 L 11/18/19 15:43 97.6 F 62 18 122/60 97 Body Mass Index 40.1 General: AO X 3, no acute distress Resp: CTA bilateral CVS: S1,S2,RRR GI: soft, non tender, non distended Neuro: motor grossly intact Psych: appropriate affect Objective Data Current Medications Generic Name Dose Route Start Last Admin Trade Name Freq PRN Reason Stop Dose Admin Acetaminophen 650 mg 11/17/19 22:34 Acetaminophen 325 Mg Tablet PO Q6H PRN Pain, Mild (Pain Scale 1-3) Diazepam 2 mg 11/18/19 21:00 11/18/19 20:59 Diazepam 2 Mg Tablet PO 2 mg BEDTIME MAIA Administration Divalproex Sodium 500 mg 11/18/19 09:00 11/19/19 08:08 Divalproex Sodium Er 500 Mg Tab.Er.24h PO 500 mg DAILY MAIA Administration Divalproex Sodium 250 mg 11/18/19 09:00 11/19/19 08:08 Divalproex Sodium Er 250 Mg Tab.Er.24h PO 250 mg DAILY MAIA Administration Docusate Sodium 100 mg 11/17/19 22:34 Docusate Sodium 100 Mg Capsule PO DAILY PRN Constipation Enoxaparin Sodium 40 mg 11/17/19 23:00 11/18/19 23:58 Enoxaparin Sodium 40 Mg/0.4 Ml Syringe SUBCUT 40 mg Q24H MAIA Administration Ampicillin Sodium/Sulbactam 100 mls @ 200 mls/hr 11/18/19 03:00 11/19/19 09:38 Sodium 3 gm/ Sodium Chloride IV 200 mls/hr Q8H MAIA Administration Magnesium Hydroxide 15 ml 11/18/19 05:42 Milk Of Magnesia 30 Ml Oral.Susp PO BID PRN Constipation Metoprolol Succinate 50 mg 11/18/19 09:00 11/19/19 08:09 Metoprolol Succinate Er 50 Mg Tab.Er.24h PO 50 mg DAILY MAIA Administration Protocol Metoprolol Succinate 100 mg 11/18/19 09:00 11/19/19 09:37 Metoprolol Succinate Er 100 Mg Tab.Er.24h PO 100 mg DAILY MAIA Administration Protocol Ondansetron HCl 4 mg 11/17/19 22:34 Ondansetron Hcl 4 Mg/2 Ml Vial IVPUSH Q8H PRN Nausea and Vomiting Polyethylene Glycol 17 gm 11/18/19 09:00 11/19/19 08:10 Polyethylene Glycol 3350 17 Gm Powd.Pack PO 17 gm DAILY MAIA Administration Pregabalin 300 mg 11/18/19 09:00 11/19/19 08:08 Pregabalin 150 Mg Capsule PO 300 mg BID MAIA Administration Sodium Chloride 3 ml 11/18/19 00:00 11/19/19 08:07 0.9 % Sodium Chloride Flush 3 Ml Syringe IVFLUSH 3 ml QSHIFT MAIA Administration Vitamin D 25 mcg 11/18/19 09:00 11/19/19 08:08 Cholecalciferol (Vitamin D3) 25 Mcg Tablet PO 25 mcg DAILY MAIA Administration Labs CBC & Chem 7: 11/19/19 05:29 11/19/19 05:29 Microbiology Microbiology Results: Microbiology 11/17/19 19:17 Blood - Venous Blood Culture - Preliminary No growth after 24 hours. 11/17/19 18:22 Blood - Venous Blood Culture - Preliminary No growth after 24 hours. Assessment and Plan (1) Sepsis: Status: Acute (2) Aspiration pneumonia: Status: Acute (3) Epilepsy: Status: Acute (4) Generalized anxiety disorder: Status: Acute Assessment and Plan: 54-year-old presented with fever and nausea vomiting severe sepsis present mission secondary to aspiration pneumonia doubt COVID, patient had COVID back in April 2019 continue Unasyn hypertension metoprolol epilepsy Depakote
--- NOTE | 2019-11-19 13:52 | MHC.CM.PN ---
Patient may discharge back to [facility] tomorrow via BLS transport. CM will continue to follow for discharge needs.
[2019-11-19] MEDS: diazePAM 2 MG TABLET PO (20:07)
[2019-11-19] MEDS: Enoxaparin Sodium 40 MG/0.4 ML SYRINGE SUBCUT (21:06)
[2019-11-20] MEDS: Ampicillin Sodium/Sulbactam Na 3 GM in 0.9 % Sodium Chloride 100 ML IV ×2 (03:00→11:54)
[2019-11-20] MEDS: 0.9 % Sodium Chloride Flush 3 ML SYRINGE IVFLUSH ×2 (03:01→09:01)
[2019-11-20 04:00] VITALS: BP 108/56; PULSE 52; RESP 18; TEMP 36.8; O2SAT 93
[2019-11-20 05:56] VITALS: BMI 40.0
[2019-11-20 06:33] LABS: MANUAL DIFF FLAG NO
[2019-11-20 06:56] LABS: Basophils Percent Auto 0.5 % (0-2); Eosinophils Absolute Auto 0.3 X10*3/uL (0.0-0.4); Eosinophils Percent Auto 5.2 % (0-4); Hematocrit 39.3 % (42-52); Hemoglobin 12.9 g/dl (14.0-18.0); Imm Gran Abs Auto 0.02 X10*3/uL (0.00-0.03); Imm Gran Pct Auto 0.3 % (0.0-0.4); Lymphocytes Absolute Auto 1.8 X10*3/uL (1.2-4.9); Lymphocytes Percent Auto 30.2 % (20-40); Mean Corpuscular HGB Conc 32.8 g/dl (31.0-36.0); Mean Corpuscular Hemoglobin 30.8 pg (27.0-33.0); Mean Corpuscular Volume 93.8 fL (80-98); Mean Platelet Volume 12.6 fL (9.4-12.4); Monocytes Absolute Auto 0.7 X10*3/uL (0.1-1.2); Monocytes Percent Auto 11.8 % (2-11); Neutrophils Absolute Auto 3.1 X10*3/uL (2.0-8.3); Red Blood Count 4.19 X10*6/uL (4.60-5.80); Red Cell Distribution Width 14.1 % (11.0-16.0)
[2019-11-20 07:09] LABS: Platelet Count 92 X10*3/uL (160-400)
[2019-11-20 07:11] LABS: Anion Gap 11 (12-20); Blood Urea Nitrogen 17 mg/dL (9-16); Carbon Dioxide 28 mmol/L (22-29); Chloride 112 mmol/L (96-108); Creatinine Clr Calc Pharmacy 133.4; Estimated Glomerular Filt Rate > 60; Glucose Fasting 110 mg/dL (60-99); Potassium 3.7 mmol/l (3.3-5.1); Sodium 147 mmol/L (135-145)
[2019-11-20 07:13] VITALS: BP 139/76; PULSE 58; RESP 18; TEMP 36.4; O2SAT 96
[2019-11-20] MEDS: Pregabalin 150 MG CAPSULE 300 MG PO (09:01)
[2019-11-20] MEDS: Cholecalciferol (Vitamin D3) 25 MCG TABLET PO (09:01)
[2019-11-20] MEDS: Divalproex Sodium ER 250 MG TAB.ER.24H PO (09:01)
[2019-11-20] MEDS: Divalproex Sodium ER 500 MG TAB.ER.24H PO (09:01)
[2019-11-20 09:06] VITALS: BP 106/53; BP 106/63; PULSE 53
[2019-11-20] MEDS: polyethylene glycoL 3350 17 GM POWD.PACK PO (09:07)
[2019-11-20 10:54] VITALS: BP 96/58; RESP 18; TEMP 35.9; O2SAT 95
--- NOTE | 2019-11-20 11:21 | P.DS_ITS ---
DS: Providers Provider Date of admission: 11/17/19 21:46 Primary care physician: Unknown Physician DS: Diagnosis Discharge Diagnosis (1) Sepsis: Status: Acute (2) Aspiration pneumonia: Status: Acute (3) Epilepsy: Status: Acute (4) Generalized anxiety disorder: Status: Acute DS: Summary Hospital Course Hospital Course: from initial h and p this is a 54-year-old male, resident of [facility], with past medical history of neuroleptic malignant syndrome, hypertension, depression anxiety who presents to the hospital vomiting and fever. When discussed with patient he reports that he usually gets his breakfast in bed after the Covert pending michelle, and after finishing his breakfast he went to lay down but developed multiple episodes of vomiting. He reports he vomited while lying down Shortly after having breakfast. he denies having any shortness of breath, chest pain, or cough prior to this happening and post the vomiting patient developed a mild fever at [facility] and was brought here. Unclear how high the fever was. denies any hx of dysphagia or difficulty swallowing. Currently patient reports no cough, no sputum production, reports chills with no fever, no pleuritic chest pain, no shortness of breath no palpitations no abdominal pain, no diarrhea constipation, no urinary symptoms and no lower extremity edema. On arrival to the ED patient had temperature on 104.1, pulse rate of 84, respiratory rate of 22, blood pressure of 129/69, satting 92% on room air labs significant for sodium of 146, lactic acid of 2.6, which improved to 1.3 after fluids, otherwise unremarkable chest CT showed patchy airspace disease see more so in the right lower lobe and the hand and right upper lobe CT abdomen showed large stool throughout the rectum and rectosigmoid with nonobstructed anastomotic staple line in the sigmoid colon, hospital course: patient was treated for sepsis due to aspiration pneumonia. He was given Unasyn and sepsis resolved. He is now feeling back to baseline will be discharged back to [facility] on 7 more days of p.o. Augmentin. of note patient did have positive covid on discharge screening. he had been positive back in april 2019. unclear how to interpret this. patient is currently asymptomatic. Time Spent with Patient Time attestation: Total time spent providing and/or coordinating discharge services: Physical Exam Vital Signs: Vital Signs: Vital Signs Temp Pulse Resp BP Pulse Ox 11/20/19 10:54 96.7 F L 18 96/58 L 95 11/20/19 09:06 53 106/63 11/20/19 07:13 97.6 F 58 18 139/76 96 11/20/19 04:00 98.3 F 52 18 108/56 L 93 11/19/19 23:47 98.7 F 76 18 138/72 96 11/19/19 20:00 116/68 96 11/19/19 16:00 98.1 F 52 16 113/57 L 96 Body Mass Index 40.0 General: AO X 3, no acute distress Resp: CTA bilateral CVS: S1,S2,RRR GI: soft, non tender, non distended Neuro: motor grossly intact Psych: appropriate affect DS: Data Data Completed and Pending Labs on day of discharge: Labs from last 24 hours 11/20/19 11/20/19 05:25 05:25 WBC 6.0 RBC 4.19 L Hgb 12.9 L Hct 39.3 L MCV 93.8 MCH 30.8 MCHC 32.8 RDW 14.1 Plt Count 92 L MPV 12.6 H Immature Gran % (Auto) 0.3 Neut % (Auto) 52.0 Lymph % (Auto) 30.2 [place] % (Auto) 11.8 H Eos % (Auto) 5.2 H Baso % (Auto) 0.5 Lymph # (Auto) 1.8 [place] # (Auto) 0.7 Eos # (Auto) 0.3 Baso # (Auto) 0.0 Abs Immat Gran (auto) 0.02 Absolute Neuts (auto) 3.1 Absolute Nucleated RBC 0.000 Nucleated RBC % (auto) 0.0 Sodium 147 H Potassium 3.7 Chloride 112 H Carbon Dioxide 28 Anion Gap 11 L BUN 17 H Creatinine 0.77 Estim Creat Clear Calc 133.4 Estimated GFR > 60 Fasting Glucose 110 H Calcium 8.0 L Preliminary micro results at discharge 11/17/19 19:17 Blood Culture - Preliminary Blood - Venous No growth after 48 hours. 11/17/19 18:22 Blood Culture - Preliminary Blood - Venous No growth after 48 hours. Discharge Plan Discharge Patient Disposition: Xfer SNF Referrals: Dr Augustine Dan [Other] [facility] [Outside] Physician,Unknown [Primary Care Provider] - Discharge Medications: New amoxicillin-pot clavulanate [Augmentin] 875-125 mg tablet 1 tab PO Q12H Qty: 14 RF: 0 Continued metoprolol succinate 50 mg Tablet Extended Release 24 Hr 50 mg PO DAILY RF: 0 metoprolol succinate 100 mg Tablet Extended Release 24 Hr 100 mg PO DAILY RF: 0 diazepam 2 mg Tablet 2 mg PO BEDTIME RF: 0 divalproex [Depakote ER] 500 mg Tablet Extended Release 24 Hr 500 mg PO DAILY RF: 0 senna-docusate sodium Tablet 1 tab PO BEDTIME RF: 0 divalproex [Depakote ER] 250 mg Tablet Extended Release 24 Hr 250 mg PO DAILY RF: 0 melatonin 1 mg Tablet 1 mg PO BEDTIME RF: 0 pregabalin [Lyrica] 300 mg Capsule 300 mg PO BID RF: 0 cholecalciferol (vitamin D3) [Vitamin D3] 25 mcg (1,000 unit) Tablet 2,000 unit PO DAILY RF: 0 polyethylene glycol 3350 1 packet PO DAILY RF: 0 Discharge Orders: Discharge Order (Routine); Ordered 11/20/19 Ordered By: Greg Mckeon Activity on Discharge: As tolerated Stand Alone Forms: Community Support Visit Report Forms: Patient Portal Discharge page Care Plan Goals: agumetin one week Health Concerns: aspiration Plan of Treatment: augmentin
--- NOTE | 2019-11-20 11:48 | MHC.CM.PN ---
Addendum entered by Gabby Sow 11/20/19 12:30: Patient will still be discharged but his sister is providing transportation. Original Note: Patient will be discharged today at 3pm to return to [facility] via S transport.
[2019-11-20 14:16] LABS: SARS COV2 PCR INHOUSE POSITIVE (Negative)
--- NOTE | 2019-11-20 14:25 | PC.NURSE ---
Rapid Covid swab + for Coronavirus. MD, Case Mgt, & Telephone Installer notified. Case Mgt reaching out to [facility] to see if they will still accept Pt back to facility. Pt was to be discharged today at 1500 back to [facility]. Will continue to monitor.
== END 2019-11-20 17:08 | disposition skilled nursing facility (03) | DRG 871 ==
LOC: HO.ED 21:34 → HO.IMC 22:24
PROVIDERS: Nurse Practitioner Family; Student in an Organized Health Care Education/Training Program; Admitting Provider Internal Medicine; Emergency Provider Internal Medicine; Visit Provider Internal Medicine
DX: A41.9 Sepsis, unspecified organism (principal); J69.0 Pneumonitis due to inhalation of food and vomit; U07.1 COVID-19; F41.9 Anxiety disorder, unspecified; F32.9 Major depressive disorder, single episode, unspecified; G40.909 Epilepsy, unspecified, not intractable, without status epilepticus; K59.00 Constipation, unspecified; Z88.2 Allergy status to sulfonamides; Z79.899 Other long term (current) drug therapy
CPT/HCPCS: 36415; 71045; 71250; 74176; 80048; 80076; 82803; 83605; 83690; 83735; 84484; 85025; 85610; 87040; 87635; 93005; 96361; 96365; 96375; 99285; J1650; J1885

== ENCOUNTER 2020-02-13 02:57 | Inpatient (IN) | payer MEDICAID, SELFPAY ==
[2020-02-13] VITALS (10 sets, daily range): BP systolic 95–117; BP diastolic 37–65; PULSE 45–66; RESP 11–18; TEMP 36.3–36.8; O2SAT 90–99; BMI 38.3
--- NOTE | 2020-02-13 03:04 | ECG_ITS ---
Test Reason : AMS Blood Pressure : / mmHG Vent. Rate : 055 BPM Atrial Rate : 055 BPM P-R Int : 180 ms QRS Dur : 086 ms QT Int : 424 ms P-R-T Axes : 026 -01 029 degrees QTc Int : 405 ms Sinus bradycardia Otherwise normal ECG When compared with ECG of 17-NOV-2019 18:13, No significant change was found Referred By: Sherita Cardenas Electronically Signed By:Nilson Oliver
--- NOTE | 2020-02-13 03:04 | XR_ITS ---
EXAMINATION: XR CHEST CLINICAL INFORMATION: Low oxygen saturation. History of aspiration pneumonia. COMPARISON: 11/17/2019 TECHNIQUE: Frontal view of the chest was obtained. FINDINGS: The lungs are well expanded. Hazy opacity at the right base. No pleural effusion or pneumothorax. The cardiomediastinal silhouette is within normal limits. No acute osseous abnormality. XR/XR chest 1V IMPRESSION: Hazy right basilar opacity could represent atelectasis, aspiration, or pneumonia.
--- NOTE | 2020-02-13 03:05 | ED.AMS ---
HPI - Altered Mental Status General Chief Complaint: General Medical Stated Complaint: ams Time Seen by Provider: 02/13/20 02:58 Source: patient, EMS and RN notes reviewed Mode of arrival: EMS Limitations: no limitations History of Present Illness HPI narrative: 55 yo male with hx of cognitive impairment, seizures, pneumonia who was found with chills confusion O2 sat 88% on RA (doesn't use O2) BP in 90s - the AMS was brief upon EMS arrival he was alert and oriented x 3 but sent him given low O2 sats and concern for recurrent pneumonia, had COVID back at the start of pandemic per his reports MD complaint: confusion Onset (ago): unknown (resolved woke up from sleep this way) Timing confirmed by: caregiver Severity: mild Context: history of similar presentation Associated symptoms: denies other symptoms Treatments prior to arrival: oxygen Related Data Home Medications Medication Instructions Recorded Confirmed cholecalciferol (vitamin D3) 2,000 unit PO DAILY 11/17/19 11/17/19 [Vitamin D3] diazepam 2 mg PO BEDTIME 11/17/19 11/17/19 divalproex [Depakote ER] 250 mg PO DAILY 11/17/19 11/17/19 divalproex [Depakote ER] 500 mg PO DAILY 11/17/19 11/17/19 melatonin 1 mg PO BEDTIME 11/17/19 11/17/19 metoprolol succinate 50 mg PO DAILY 11/17/19 11/17/19 metoprolol succinate 100 mg PO DAILY 11/17/19 11/17/19 polyethylene glycol 3350 1 packet PO DAILY 11/17/19 11/17/19 pregabalin [Lyrica] 300 mg PO BID 11/17/19 11/17/19 senna-docusate sodium 1 tab PO BEDTIME 11/17/19 11/17/19 Previous Rx's Medication Instructions Recorded amoxicillin-pot clavulanate 1 tab PO Q12H #14 tab 11/20/19 [Augmentin] Allergies Allergy/AdvReac Type Severity Reaction Status Date / Time aripiprazole [From ABILIFY] Allergy Unknown UNKNOWN Verified 11/17/19 20:30 droperidol [From INAPSINE] Allergy Unknown UNKNOWN Verified 11/17/19 20:30 haloperidol [From HALDOL] Allergy Unknown UNKNOWN Verified 11/17/19 20:30 prochlorperazine Allergy Unknown UNKNOWN Verified 11/17/19 20:30 [From COMPAZINE] promethazine [From PHENERGAN] Allergy Unknown UNKNOWN Verified 11/17/19 20:30 sulfamethoxazole Allergy Unknown UNKNOWN Verified 11/17/19 20:30 [From BACTRIM] trimethoprim [From BACTRIM] Allergy Unknown UNKNOWN Verified 11/17/19 20:30 Review of Systems Review of Systems: Constitutional : No Weight loss, No Fever, No Chills, No Fatigue, No Malaise ENT/Mouth : No sore throat, No Rhinorrhea Eyes: No Eye Pain, No Swelling, No Redness Cardiovascular : No Chest Pain, No SOB, No Dyspnea on Exertion, No Orthopnea, No Edema, No Palpitations Respiratory : No Cough, No Sputum, No Wheezing Gastrointestinal : No Nausea, No Vomiting, No Diarrhea, No Constipation, No abdominal Pain, No Hematochezia, No Melena Genitourinary : No Dysuria, No Urinary Frequency, No Hematuria, Musculoskeletal : No joint pain, No Myalgias, No Joint Swelling Skin : No Skin Lesions, No rash Neuro : No Weakness, No Numbness, No Dizziness, No Headache Psych : No Anxiety/Panic, No Depression All other systems reviewed and are negative PMFSH Past Medical History Attestation statement: The following information was validated with the patient. Medical History Deformity of left hand Epilepsy Generalized anxiety disorder Hypertension Major depressive disorder Mild cognitive impairment Social History Social History Household Members: Other Housing: [facility] Alcohol intake: unknown Smoking Status: Never smoker Second Hand Smoke Exposure: No Advance Directives: No service: Yes Current occupational status: disabled Physical Exam Vital Signs: Vital Signs: Last Vital Signs Temp 98.2 F 02/13/20 03:05 Pulse 53 02/13/20 03:49 Resp 15 02/13/20 03:49 BP 100/59 L 02/13/20 03:49 Pulse Ox 95 02/13/20 03:49 Body Mass Index 38.3 Appearance: Alert. Oriented X3. No acute distress. Eyes: Pupils equal, round and reactive to light. ENT: Pharynx normal. Neck: Normal inspection. Neck supple. CVS: Normal heart rate and rhythm. Pulses normal. Respiratory: No respiratory distress. Breath sounds normal. Abdomen: Soft and non-tender. Skin: Skin warm and dry. Normal skin color. Normal skin turgor. Extremities: No lower extremity edema. No calf ttp Neuro: Oriented X 3. No motor deficit. No sensory deficit. Course Course Course Narrative: patient desaturates without O2 into upper 80s patient is obese IBW calculated at 66kg 30cc/kg bolus = 1980mL BP 110/64 after fluids, planned admit MDM - Altered Mental Status MDM Narrative Medical decision making narrative: 55 yo male with hx neurolepitic malignant syndrome, pneumonia, HTN, cognitive impairment - here with waking up low O2 sats, chills, brief confusion - confusion resolved alert and oriented x 3, will need infectious workup, at this time no focal deficits and is intact, he could have had a seizure, dispo per results and findings. Lab Data Result diagrams: 02/13/20 03:49 02/13/20 05:10 Labs: Lab Results 02/13/20 02/13/20 02/13/20 Range/Units 03:48 03:48 03:49 WBC 10.3 (4.8-10.8) X10*3/uL RBC 4.82 (4.60-5.80) X10*6/uL Hgb 14.4 (14.0-18.0) g/dl Hct 44.1 (42-52) % MCV 91.5 (80-98) fL MCH 29.9 (27.0-33.0) pg MCHC 32.7 (31.0-36.0) g/dl RDW 12.9 (11.0-16.0) % Plt Count 182 D (160-400) X10*3/uL MPV 11.6 (9.4-12.4) fL Immature Gran % (Auto) 0.2 (0.0-0.4) % Neut % (Auto) 73.8 H (45-73) % Lymph % (Auto) 19.4 L (20-40) % [place] % (Auto) 5.4 (2-11) % Eos % (Auto) 0.8 (0-4) % Baso % (Auto) 0.4 (0-2) % Lymph # (Auto) 2.0 (1.2-4.9) X10*3/uL [place] # (Auto) 0.6 (0.1-1.2) X10*3/uL Eos # (Auto) 0.1 (0.0-0.4) X10*3/uL Baso # (Auto) 0.0 (0.0-0.2) X10*3/uL Abs Immat Gran (auto) 0.02 (0.00-0.03) X10*3/uL Absolute Neuts (auto) 7.6 (2.0-8.3) X10*3/uL Absolute Nucleated RBC 0.000 (0.0-0.012) X10*3/uL Nucleated RBC % (auto) 0.0 (0.0-0.2) /100WBC Hold Blue Top Sodium Potassium Chloride Carbon Dioxide Anion Gap BUN Creatinine Estim Creat Clear Calc Estimated GFR Random Glucose Lactic Acid 1.4 (0.5-2.0) mmol/L Calcium Magnesium Total Bilirubin Direct Bilirubin AST ALT Alkaline Phosphatase Ammonia 43 (13-55) umol/L Troponin I High Sens (<3.5-35.0) ng/L Total Protein Albumin Lipase COVID-19 (DIEGO) (Negative) COVID-19 Clin Com 02/13/20 02/13/20 02/13/20 Range/Units 03:49 03:49 03:49 WBC (4.8-10.8) X10*3/uL RBC (4.60-5.80) X10*6/uL Hgb (14.0-18.0) g/dl Hct (42-52) % MCV (80-98) fL MCH (27.0-33.0) pg MCHC (31.0-36.0) g/dl RDW (11.0-16.0) % Plt Count (160-400) X10*3/uL MPV (9.4-12.4) fL Immature Gran % (Auto) (0.0-0.4) % Neut % (Auto) (45-73) % Lymph % (Auto) (20-40) % [place] % (Auto) (2-11) % Eos % (Auto) (0-4) % Baso % (Auto) (0-2) % Lymph # (Auto) (1.2-4.9) X10*3/uL [place] # (Auto) (0.1-1.2) X10*3/uL Eos # (Auto) (0.0-0.4) X10*3/uL Baso # (Auto) (0.0-0.2) X10*3/uL Abs Immat Gran (auto) (0.00-0.03) X10*3/uL Absolute Neuts (auto) (2.0-8.3) X10*3/uL Absolute Nucleated RBC (0.0-0.012) X10*3/uL Nucleated RBC % (auto) (0.0-0.2) /100WBC Hold Blue Top SEE NOTE Sodium Cancelled Potassium Cancelled Chloride Cancelled Carbon Dioxide Cancelled Anion Gap Cancelled BUN Cancelled Creatinine Cancelled Estim Creat Clear Calc Cancelled Estimated GFR Cancelled Random Glucose Cancelled Lactic Acid (0.5-2.0) mmol/L Calcium Cancelled Magnesium Cancelled Total Bilirubin Cancelled Direct Bilirubin Cancelled AST Cancelled ALT Cancelled Alkaline Phosphatase Cancelled Ammonia (13-55) umol/L Troponin I High Sens < 3.5 D (<3.5-35.0) ng/L Total Protein Cancelled Albumin Cancelled Lipase Cancelled COVID-19 (DIEGO) (Negative) COVID-19 Clin Com 02/13/20 Range/Units 03:49 WBC (4.8-10.8) X10*3/uL RBC (4.60-5.80) X10*6/uL Hgb (14.0-18.0) g/dl Hct (42-52) % MCV (80-98) fL MCH (27.0-33.0) pg MCHC (31.0-36.0) g/dl RDW (11.0-16.0) % Plt Count (160-400) X10*3/uL MPV (9.4-12.4) fL Immature Gran % (Auto) (0.0-0.4) % Neut % (Auto) (45-73) % Lymph % (Auto) (20-40) % [place] % (Auto) (2-11) % Eos % (Auto) (0-4) % Baso % (Auto) (0-2) % Lymph # (Auto) (1.2-4.9) X10*3/uL [place] # (Auto) (0.1-1.2) X10*3/uL Eos # (Auto) (0.0-0.4) X10*3/uL Baso # (Auto) (0.0-0.2) X10*3/uL Abs Immat Gran (auto) (0.00-0.03) X10*3/uL Absolute Neuts (auto) (2.0-8.3) X10*3/uL Absolute Nucleated RBC (0.0-0.012) X10*3/uL Nucleated RBC % (auto) (0.0-0.2) /100WBC Hold Blue Top Sodium Potassium Chloride Carbon Dioxide Anion Gap BUN Creatinine Estim Creat Clear Calc Estimated GFR Random Glucose Lactic Acid (0.5-2.0) mmol/L Calcium Magnesium Total Bilirubin Direct Bilirubin AST ALT Alkaline Phosphatase Ammonia (13-55) umol/L Troponin I High Sens (<3.5-35.0) ng/L Total Protein Albumin Lipase COVID-19 (DIEGO) Negative (Negative) COVID-19 Clin Com See Note ECG Data ECG #1: Attestation: I personally reviewed and interpreted this ECG as follows: ECG interpretation date: 02/13/20 ECG interpretation time: 03:27 Interpretation: Rate: 55 Rhythm: sinus bradycardia [place]: left Normal P waves. Normal [place]. Normal QRS complex. ST T wave : no PARVIN, nonspecific qTC: normal prior studies: no acute ischemia, artifact noted The study has been interpreted contemporaneously by me. . Discharge Plan Discharge Clinical Impression: Hypoxia Aspiration pneumonia Qualifiers: Aspiration pneumonia type: unspecified Laterality: right Lung location: lower lobe of lung Qualified Code(s): J69.0 - Pneumonitis due to inhalation of food and vomit Patient Disposition: Admitted As Inpatient
[2020-02-13 03:59] LABS: MANUAL DIFF FLAG NO
[2020-02-13 04:00] LABS: Basophils Percent Auto 0.4 % (0-2); Eosinophils Absolute Auto 0.1 X10*3/uL (0.0-0.4); Eosinophils Percent Auto 0.8 % (0-4); Hematocrit 44.1 % (42-52); Hemoglobin 14.4 g/dl (14.0-18.0); Imm Gran Abs Auto 0.02 X10*3/uL (0.00-0.03); Imm Gran Pct Auto 0.2 % (0.0-0.4); Lymphocytes Percent Auto 19.4 % (20-40); Mean Corpuscular HGB Conc 32.7 g/dl (31.0-36.0); Mean Corpuscular Hemoglobin 29.9 pg (27.0-33.0); Mean Corpuscular Volume 91.5 fL (80-98); Mean Platelet Volume 11.6 fL (9.4-12.4); Monocytes Absolute Auto 0.6 X10*3/uL (0.1-1.2); Monocytes Percent Auto 5.4 % (2-11); Neutrophils Absolute Auto 7.6 X10*3/uL (2.0-8.3); Neutrophils Percent Auto 73.8 % (45-73); Platelet Count 182 X10*3/uL (160-400); Red Blood Count 4.82 X10*6/uL (4.60-5.80); Red Cell Distribution Width 12.9 % (11.0-16.0); White Blood Count 10.3 X10*3/uL (4.8-10.8)
[2020-02-13] MEDS: Piperacillin Sodium/Tazobactam 3.375 GM in 0.9 % Sodium Chloride 50 ML IV ×4 (04:00→21:22)
[2020-02-13] MEDS: 0.9 % Sodium Chloride 1,000 ML 999 ML IVCONT ×2 (04:00→04:30)
[2020-02-13 04:20] LABS: COVID-19 Test Negative (Negative); IDNOW Serial# 9DD0AD1C
[2020-02-13 04:21] LABS: Lactic Acid 1.4 mmol/L (0.5-2.0)
[2020-02-13 04:23] LABS: Ammonia 43 umol/L (13-55)
[2020-02-13 04:31] LABS: Troponin-I High Sensitivity < 3.5 ng/L (<3.5-35.0)
--- NOTE | 2020-02-13 05:09 | PC.NURSE ---
pt taken off oxygen to stand and try to obtain urine sample. pt's spo2 on room air dropped to 90%, pt was not in any distress. sister called for an updaye. she reports that he is ambulatory with a walker. he has had multiple foot surgeries for hammer toe.
[2020-02-13 05:47] LABS: Alanine Aminotransferase 8 U/L (0-40); Albumin Level 3.2 g/dL (3.5-5.0); Alkaline Phosphatase 48 U/L (39-117); Anion Gap 11 (12-20); Aspartate Amino Transferase 9 U/L (5-37); Bilirubin Direct 0.2 mg/dL (0.0-0.5); Bilirubin Total 0.4 mg/dL (0.0-1.0); Blood Urea Nitrogen 21 mg/dL (9-16); Calcium 7.6 mg/dL (8.4-10.2); Carbon Dioxide 25 mmol/L (22-29); Chloride 109 mmol/L (96-108); Creatinine Clr Calc Pharmacy 119.5; Estimated Glomerular Filt Rate > 60; Glucose Random 96 mg/dL (60-115); Lipase 7 U/L (8-78); Magnesium 2.2 mg/dL (1.6-2.6); Potassium 3.9 mmol/l (3.3-5.1); Sodium 141 mmol/L (135-145); Total Protein 5.4 g/dL (6.5-8.0)
--- NOTE | 2020-02-13 05:58 | PC.NURSE ---
SISTER ASKED THAT IF PT REQUESTS TO AMBULATE, MAKE SURE HE HAS A WALKER AND LET HIM GET OUT OF BED TO STRETCH AND WALK.
--- NOTE | 2020-02-13 06:02 | PC.NURSE ---
PT AWAKE AND ALERT, HR 44 BPM SINUS RHETTMD AWARE.
[2020-02-13] MEDS: 0.9 % Sodium Chloride 500 ML IV (06:06)
[2020-02-13] MEDS: Acetaminophen 325 MG TABLET 650 MG PO (06:07)
--- NOTE | 2020-02-13 06:16 | P.HPHOSP_ITS ---
History of Present Illness Date of Service: 02/13/20 Chief Complaint: Hypoxia, confusion A 55 years old male with PMH of seizure disorder, cognitive impairment, resistant at [facility] who presents to the hospital with confusion, chills and reported O2 sat 88% on room air. The patient does not recall exactly what happened in the morning. He reports waking up confused and not remembering where you was. Denies any problems at night for with he felt around baseline. Along with confusion he reports some chills but no fever. Denies any chest pain, shortness of breath, cough, nausea or vomiting. In the emergency he required oxygen supplement to keep his sats above 90s with low blood pressure readings. Chest x-ray was concerning for possible aspiration pneumonia. Admitted to the hospital for further evaluation and treatment. At Review of Systems Review of Systems: No fever, but reports chills and weakness No chest pain, palpitation No shortness of breath or coughing No abdominal pain, nausea or vomiting No urinary symptoms No any rash or wounds PMFSH Medical History Deformity of left hand Epilepsy Generalized anxiety disorder Hypertension Major depressive disorder Mild cognitive impairment Social History Household Members: Other Housing: Residential Alcohol intake: unknown Smoking Status: Never smoker Second Hand Smoke Exposure: No Advance Directives: No service: Yes Current occupational status: disabled Meds Allergies Allergy/AdvReac Type Severity Reaction Status Date / Time aripiprazole [From ABILIFY] Allergy Unknown UNKNOWN Verified 11/17/19 20:30 droperidol [From INAPSINE] Allergy Unknown UNKNOWN Verified 11/17/19 20:30 haloperidol [From HALDOL] Allergy Unknown UNKNOWN Verified 11/17/19 20:30 prochlorperazine Allergy Unknown UNKNOWN Verified 11/17/19 20:30 [From COMPAZINE] promethazine [From PHENERGAN] Allergy Unknown UNKNOWN Verified 11/17/19 20:30 sulfamethoxazole Allergy Unknown UNKNOWN Verified 11/17/19 20:30 [From BACTRIM] trimethoprim [From BACTRIM] Allergy Unknown UNKNOWN Verified 11/17/19 20:30 Home Medications Medication Instructions Recorded Confirmed Type diazepam 2 mg PO BEDTIME 11/17/19 11/17/19 History divalproex [Depakote ER] 500 mg PO DAILY 11/17/19 11/17/19 History melatonin 1 mg PO BEDTIME 11/17/19 11/17/19 History metoprolol succinate 50 mg PO DAILY 11/17/19 11/17/19 History metoprolol succinate 100 mg PO DAILY 11/17/19 11/17/19 History polyethylene glycol 3350 1 packet PO DAILY 11/17/19 11/17/19 History pregabalin [Lyrica] 300 mg PO BID 11/17/19 11/17/19 History senna-docusate sodium 1 tab PO BEDTIME 11/17/19 11/17/19 History ibuprofen 800 TID PRN 02/13/20 History Physical Exam Vital Signs and Narrative: Vital Signs: Last Vital Signs Temp 98.2 F 02/13/20 03:05 Pulse 46 L 02/13/20 05:59 Resp 11 L 02/13/20 05:59 BP 101/55 L 02/13/20 05:59 Pulse Ox 98 02/13/20 05:59 Body Mass Index 38.3 Constitutional : Alert, oriented, not in distress Neck : Normal inspection, Supple Cardiovascular : RRR, S1 S2, no lower extremity edema Respiratory : Fair bilateral air entry, fine basis right-sided crackles, no wheezes or rhonchi Gastrointestinal: soft, lax, Normal bowel sounds, Non tender Skin : Warm/Dry, No rash Neurological : Alert & oriented x3, No focal deficit Results Labs CBC and Chem 7: 02/13/20 03:49 02/13/20 05:10 Labs: Laboratory Results - last 24 hr 02/13/20 02/13/20 02/13/20 03:48 03:48 03:49 MCV 91.5 MCH 29.9 MCHC 32.7 RDW 12.9 Plt Count 182 D MPV 11.6 Immature Gran % (Auto) 0.2 Neut % (Auto) 73.8 H Lymph % (Auto) 19.4 L [place] % (Auto) 5.4 Eos % (Auto) 0.8 Baso % (Auto) 0.4 Lymph # (Auto) 2.0 [place] # (Auto) 0.6 Eos # (Auto) 0.1 Baso # (Auto) 0.0 Abs Immat Gran (auto) 0.02 Absolute Neuts (auto) 7.6 Absolute Nucleated RBC 0.000 Nucleated RBC % (auto) 0.0 Hold Blue Top Anion Gap Estim Creat Clear Calc Estimated GFR Random Glucose Lactic Acid 1.4 Calcium Magnesium Total Bilirubin Direct Bilirubin AST ALT Alkaline Phosphatase Ammonia 43 Troponin I High Sens Total Protein Albumin Lipase COVID-19 ([facility]IEGO) COVID-19 [employer] 02/13/20 02/13/20 02/13/20 03:49 03:49 03:49 MCV MCH MCHC RDW Plt Count MPV Immature Gran % (Auto) Neut % (Auto) Lymph % (Auto) [place] % (Auto) Eos % (Auto) Baso % (Auto) Lymph # (Auto) [place] # (Auto) Eos # (Auto) Baso # (Auto) Abs Immat Gran (auto) Absolute Neuts (auto) Absolute Nucleated RBC Nucleated RBC % (auto) Hold Blue Top SEE NOTE Anion Gap Cancelled Estim Creat Clear Calc Cancelled Estimated GFR Cancelled Random Glucose Cancelled Lactic Acid Calcium Cancelled Magnesium Cancelled Total Bilirubin Cancelled Direct Bilirubin Cancelled AST Cancelled ALT Cancelled Alkaline Phosphatase Cancelled Ammonia Troponin I High Sens < 3.5 D Total Protein Cancelled Albumin Cancelled Lipase Cancelled COVID-19 (DIEGO) COVIDDr [facility] 02/13/20 02/13/20 03:49 05:10 MCV MCH MCHC RDW Plt Count MPV Immature Gran % (Auto) Neut % (Auto) Lymph % (Auto) [place] % (Auto) Eos % (Auto) Baso % (Auto) Lymph # (Auto) [place] # (Auto) Eos # (Auto) Baso # (Auto) Abs Immat Gran (auto) Absolute Neuts (auto) Absolute Nucleated RBC Nucleated RBC % (auto) Hold Blue Top Anion Gap 11 L Estim Creat Clear Calc 119.5 Estimated GFR > 60 Random Glucose 96 Lactic Acid Calcium 7.6 L Magnesium 2.2 Total Bilirubin 0.4 Direct Bilirubin 0.2 AST 9 ALT 8 Alkaline Phosphatase 48 Ammonia Troponin I High Sens Total Protein 5.4 L Albumin 3.2 L D Lipase 7 L COVID-19 (DIEGO) Negative [facility] [employer] See Note Imaging Radiologist's Impressions: Impressions Chest X-Ray 02/13/20 03:04 IMPRESSION: Hazy right basilar opacity could represent atelectasis, aspiration, or pneumonia. Assessment and Plan (1) Hypoxia: Status: Acute (2) Aspiration pneumonia: Qualifiers: Aspiration pneumonia type: unspecified Laterality: right Lung location: lower lobe of lung Qualified Code(s): J69.0 - Pneumonitis due to inhalation of food and vomit Status: Acute (3) Hypertension: Status: Acute (4) Generalized anxiety disorder: Status: Acute (5) Epilepsy: Status: Acute (6) Confusion: Status: Acute A 55 years old male with PMH of seizure disorder, cognitive impairment, resistant at [facility] who presents to the hospital with confusion, chills and reported O2 sat 88% on room air. Acute hypoxic respiratory failure Secondary to aspiration pneumonia Not septic O2 supplement as needed Pending blood cultures Started on IV Zosyn Confusion Reported in the morning, Resolved at time of interview Could be postictal, related to infection itself continue seizure medication and treat infection Seizure disorder a low continue home medications Hypertension Metoprolol held for low bp readings DVt ppx Lovenox
[2020-02-13] MEDS: Divalproex Sodium Sprinkles 125 MG CAP.DR.SPR 375 MG PO ×2 (09:19→21:18)
[2020-02-13] MEDS: Enoxaparin Sodium 40 MG/0.4 ML SYRINGE SUBCUT (09:20)
[2020-02-13] MEDS: 0.9 % Sodium Chloride Flush 3 ML SYRINGE IVFLUSH ×2 (09:25→16:00)
--- NOTE | 2020-02-13 12:47 | MHC.CM.PN ---
Attempted to meet with patient in regards to d/c planning. Patient has a history of cognitive impairment and malignant neuroleptic syndrome and is a emt intermediate care resident of [facility]. Spoke with patient's sister/HCP, Elizabeth via telephone at [phone]. Patient ambulates with a walker. Copy of HCP already on file. Anticipate patient will return to [facility] via BLS when medically stable. Elizabeth is requesting to be able to come visit patient. Kevin, medical record assistant has been contacted. Continue to monitor for d/c needs.
--- NOTE | 2020-02-13 16:18 | P.EN_ITS ---
Event Note Date of Service: 02/13/20 Event Note: patient seen and examined at bedside patient reported shortness of breath improving more awake and alert on exam alert abdomen soft CVS rate and rhythm regular lungs bibasilar rales admitted for acute hypoxic respiratory failure secondary to aspiration pneumo christina continue antibiotic follow-up cultures wean down oxygen as tolerated see H&P from today for more details
--- NOTE | 2020-02-13 16:34 | MHC.CM.PN ---
Per Kevin, medical collections, patient's sister/HCP Elizabeth has permission to visit daily. Spoke with Elizabeth via telephone at [phone] to explain this. She verbalized understanding and stated she would be at [facility] [place]. Continue to monitor for d/c needs.
[2020-02-14] MEDS: 0.9 % Sodium Chloride Flush 3 ML SYRINGE IVFLUSH ×3 (01:01→23:12)
[2020-02-14 01:04] VITALS: BP 97/66; PULSE 61; RESP 17; O2SAT 93
--- NOTE | 2020-02-14 01:05 | PC.NURSE ---
pt states he walks but with a walker, pt is calm cooperative, alert orientedx3.
[2020-02-14] MEDS: Piperacillin Sodium/Tazobactam 3.375 GM in 0.9 % Sodium Chloride 50 ML IV ×4 (04:14→23:12)
--- NOTE | 2020-02-14 04:31 | PC.NURSE ---
PT HAS BEEN INCONT OF URINE MULT TIMES. PT OFFERED A TEXCATH AND REFUSED. PT STATES HE WANTS NOTHING IN OR ON HIS PENIS.
[2020-02-14 05:04] VITALS: BP 128/75; PULSE 58; RESP 18; O2SAT 98
--- NOTE | 2020-02-14 06:42 | PC.NURSE ---
pt states at [facility] he uses a walker and is bathroom is in his room. pt has not been up to walk since arrival per pt.
[2020-02-14] MEDS: Enoxaparin Sodium 40 MG/0.4 ML SYRINGE SUBCUT (07:31)
--- NOTE | 2020-02-14 07:45 | PC.NURSE ---
pt is alert and oriented. aware plan of care for admission. denied having any questions at this time.
[2020-02-14] MEDS: Divalproex Sodium Sprinkles 125 MG CAP.DR.SPR 375 MG PO ×2 (09:49→21:52)
--- NOTE | 2020-02-14 09:55 | PC.NURSE ---
pt incontinent of urine, linen changed and pt given new hospital attire. pt cleaned and repositioned.
[2020-02-14 10:33] LABS: MANUAL DIFF FLAG NO
[2020-02-14 10:58] LABS: Glucose Urine UA NEG (NEG); Leukocyte Esterase Urine NEG (NEG); Nitrite Urine NEG (NEG); PH 6.5 (5.0-8.0); Urine Blood NEG (NEG); Urine Ketones NEG (NEG); Urine Protein NEG (NEG-TRACE)
[2020-02-14 10:59] LABS: Appearance Urine CLEAR; Color Urine YELLOW
[2020-02-14 11:00] LABS: Basophils Percent Auto 0.6 % (0-2); Eosinophils Absolute Auto 0.1 X10*3/uL (0.0-0.4); Eosinophils Percent Auto 1.8 % (0-4); Hematocrit 43.8 % (42-52); Hemoglobin 14.3 g/dl (14.0-18.0); Imm Gran Abs Auto 0.01 X10*3/uL (0.00-0.03); Imm Gran Pct Auto 0.2 % (0.0-0.4); Mean Corpuscular HGB Conc 32.6 g/dl (31.0-36.0); Mean Corpuscular Hemoglobin 29.8 pg (27.0-33.0); Mean Corpuscular Volume 91.3 fL (80-98); Mean Platelet Volume 11.7 fL (9.4-12.4); Monocytes Absolute Auto 0.3 X10*3/uL (0.1-1.2); Monocytes Percent Auto 5.9 % (2-11); Neutrophils Absolute Auto 3.5 X10*3/uL (2.0-8.3); Neutrophils Percent Auto 70.5 % (45-73); Platelet Count 148 X10*3/uL (160-400)
[2020-02-14 11:34] LABS: Anion Gap 12 (12-20); Blood Urea Nitrogen 15 mg/dL (9-16); Calcium 8.6 mg/dL (8.4-10.2); Carbon Dioxide 30 mmol/L (22-29); Chloride 109 mmol/L (96-108); Creatinine Clr Calc Pharmacy 125.6; Estimated Glomerular Filt Rate > 60; Glucose Random 94 mg/dL (60-115); Potassium 4.2 mmol/l (3.3-5.1); Sodium 147 mmol/L (135-145)
--- NOTE | 2020-02-14 12:06 | PC.NURSE ---
pt cleaned by pct. void in bed- small. linen changed.
[2020-02-14 13:18] VITALS: BP 152/94; PULSE 75; RESP 14; TEMP 36.4; O2SAT 97
--- NOTE | 2020-02-14 14:26 | HO.PM.IMPN ---
Subjective Subjective Date of Service: 02/14/20 Interval History: Patient seen and examined at bedside patient was reporting shortness of breath Review of Systems No fever, but reports chills and weakness No chest pain, palpitation reported shortness of breath or coughing No abdominal pain, nausea or vomiting No urinary symptoms No any rash or wounds Physical Exam Vital Signs: Vital Signs: Last Vital Signs Temp 97.6 F 02/14/20 13:18 Pulse 75 02/14/20 13:18 Resp 14 02/14/20 13:18 BP 152/94 H 02/14/20 13:18 Pulse Ox 97 02/14/20 13:18 Body Mass Index 38.3 Const: General: anxious Resp: Auscultation: rales Cardio: Jugular venous distension: no JVD GI: Palpation (GI): Soft to palpation and nontender Objective Data Current Medications Generic Name Dose Route Start Last Admin Trade Name Freq PRN Reason Stop Dose Admin Acetaminophen 650 mg 02/13/20 06:12 Acetaminophen 325 Mg Tablet PO Q6H PRN Pain, Mild (Pain Scale 1-3) Divalproex Sodium 375 mg 02/13/20 09:00 02/14/20 09:49 Divalproex Sodium Sprinkles 125 Mg Cap.Spr PO 375 mg BID MAIA Administration Enoxaparin Sodium 40 mg 02/13/20 07:49 02/14/20 07:31 Enoxaparin Sodium 40 Mg/0.4 Ml Syringe SUBCUT 40 mg Q24H MAIA Administration Piperacillin Sod/Tazobactam 50 mls @ 100 mls/hr 02/13/20 10:00 02/14/20 10:20 Sod 3.375 gm/ Sodium Chloride IV Infused Q6H MAIA Infusion Magnesium Hydroxide 30 ml 02/13/20 06:12 Milk Of Magnesia 30 Ml Oral.Susp PO DAILY PRN Constipation Pharmacy Consult 1 each 02/13/20 04:21 Consult Rx Perform Med Rec MISCELLANE ONCE PRN Consult order Sodium Chloride 3 ml 02/13/20 08:00 02/14/20 07:24 0.9 % Sodium Chloride Flush 3 Ml Syringe IVFLUSH Not Given QSHIFT [facility] Labs CBC & Chem 7: 02/14/20 10:17 02/14/20 10:17 Microbiology Microbiology Results: Microbiology 02/13/20 05:12 Blood - Venous Blood Culture - Preliminary No growth after 24 hours. 02/13/20 03:49 Blood - Venous Blood Culture - Preliminary No growth after 24 hours. 02/13/20 03:49 Blood - Venous Blood Culture - Preliminary No growth after 24 hours. 02/13/20 05:12 Blood - Venous Blood Culture - Final Assessment and Plan (1) Hypoxia: Status: Acute (2) Aspiration pneumonia: Status: Acute (3) Hypertension: Status: Acute (4) Generalized anxiety disorder: Status: Acute (5) Epilepsy: Status: Acute (6) Confusion: Status: Acute Assessment and Plan: A 55 years old male with PMH of seizure disorder, cognitive impairment, resistant at [facility] who presents to the hospital with confusion, chills and reported O2 sat 88% on room air. Acute hypoxic respiratory failure Secondary to aspiration pneumonia Still reporting shortness of breath continue O2 supplement as needed Pending blood cultures continue IV Zosyn Confusion resolved Seizure disorder continue depakote Hypertension will restart home medication DVt ppx Lovenox
[2020-02-14 16:36] VITALS: BP 137/73; PULSE 76; RESP 18; TEMP 36.6; O2SAT 96
[2020-02-14] MEDS: LORazepam 2 MG/ML VIAL 0.5 MG IVPUSH (19:25)
[2020-02-14 20:00] VITALS: BP 147/69; PULSE 78; RESP 19; TEMP 36.5; O2SAT 96
[2020-02-14] MEDS: Sennosides/Docusate Sodium TABLET 1 TAB PO (21:51)
[2020-02-14] MEDS: diazePAM 2 MG TABLET PO (21:51)
[2020-02-14 23:14] VITALS: BP 131/90; PULSE 73; RESP 20; TEMP 36.3; O2SAT 96
[2020-02-15] VITALS: RESP 20
[2020-02-15] MEDS: Piperacillin Sodium/Tazobactam 3.375 GM in 0.9 % Sodium Chloride 50 ML IV ×2 (05:32→10:27)
[2020-02-15 07:35] VITALS: BP 124/82; PULSE 73; RESP 18; TEMP 36.2; O2SAT 97
[2020-02-15] MEDS: Enoxaparin Sodium 40 MG/0.4 ML SYRINGE SUBCUT (08:58)
[2020-02-15] MEDS: Divalproex Sodium Sprinkles 125 MG CAP.DR.SPR 375 MG PO (08:58)
[2020-02-15] MEDS: polyethylene glycoL 3350 17 GM POWD.PACK PO (08:58)
--- NOTE | 2020-02-15 09:56 | MHC.CM.PN ---
PER CONVERSATION WITH RNMARINA, OF [facility], TRANSPORT TO BE ARRANGED FOR 13:30 FROM [facility] [place]. DC SUMMARY TO BE FAXED TO [phone], WELL INTO [employer]. RN AND UNIT AWARE OF PLAN. CALL TO HCP/SISTER JC @ [phone], WHO IS NOW AWARE OF DC PLAN.
--- NOTE | 2020-02-15 11:29 | PM.DS ---
DS: Providers Provider Date of Service: 02/15/20 Date of admission: 02/13/20 06:12 Primary care physician: Unknown Physician DS: Diagnosis Discharge Diagnosis (1) Hypoxia: Status: Acute (2) Aspiration pneumonia: Status: Acute (3) Hypertension: Status: Acute (4) Generalized anxiety disorder: Status: Acute (5) Epilepsy: Status: Acute (6) Confusion: Status: Acute DS: Medications Discharge Medications Home Medications: Home Medications Medication Instructions Recorded Confirmed diazepam 2 mg PO BEDTIME 11/17/19 02/13/20 melatonin 1 mg PO BEDTIME 11/17/19 02/13/20 metoprolol succinate 50 mg PO DAILY 11/17/19 02/13/20 pregabalin [Lyrica] 300 mg PO BID 11/17/19 02/13/20 Senna Plus 1 tab-cap PO BEDTIME 02/13/20 02/13/20 Senna Plus 1 tab-cap PO Q24H PRN 02/13/20 02/13/20 acetaminophen 500 mg PO Q6H PRN 02/13/20 02/13/20 bisacodyl 10 mg MT Q24H PRN 02/13/20 02/13/20 cholecalciferol (vitamin D3) 50 mcg PO DAILY 02/13/20 02/13/20 divalproex 500 mg PO BEDTIME 02/13/20 02/13/20 ibuprofen 800 mg PO Q8H PRN 02/13/20 02/13/20 lidocaine 1 appl TOPICAL Q6H PRN 02/13/20 02/13/20 polyethylene glycol 3350 17 g PO DAILY 02/13/20 02/13/20 polyethylene glycol 3350 17 g PO Q24H PRN 02/13/20 02/13/20 pregabalin 100 mg PO BID 02/13/20 02/13/20 witch monica 1 pad TOPICAL Q24H PRN 02/13/20 02/13/20 Previous Rx's Medication Instructions Recorded amoxicillin-pot clavulanate 1 tab PO BID #6 tab 02/15/20 [Augmentin] DS: Summary Hospital Course Hospital Course: History of presenting illness A 55 years old male with PMH of seizure disorder, cognitive impairment, resistant at [facility] who presents to the hospital with confusion, chills and reported O2 sat 88% on room air. The patient does not recall exactly what happened in the morning. He reports waking up confused and not remembering where you was. Denies any problems at night for with he felt around baseline. Along with confusion he reports some chills but no fever. Denies any chest pain, shortness of breath, cough, nausea or vomiting. In the emergency he required oxygen supplement to keep his sats above 90s with low blood pressure readings. Chest x-ray was concerning for possible aspiration pneumonia. Admitted to the hospital for further evaluation and treatment. Hospital course 55-year-old gentleman with past medical history of seizure disorder cognitive impairment resident of [facility] presented to [facility] with confusion chills and reported hypoxia of 88% on room air patient chest x-ray showed hazy opacity right base with concern for aspiration pneumonia/atelectasis patient had no fevers no leukocytosis, patient was treated with IV Zosyn currently he is hemodynamically stable oxygenation is 97% on room air therefore he has been transitioned to by mouth Augmentin for total 5 day course of antibiotic patient has been continued on all other home medications, patient was noted to have low blood pressure on arrival therefore his Toprol XL 100 mg has been discontinued and he has been maintained on Toprol-XL 50 mg daily. Time Spent with Patient Time attestation: Total time spent providing and/or coordinating discharge services: Discharge coordination time: Greater than 30 minutes Physical Exam Vital Signs: Vital Signs: Last Vital Signs Temp 97.2 F 02/15/20 07:35 Pulse 73 02/15/20 07:35 Resp 18 02/15/20 07:35 BP 124/82 02/15/20 07:35 Pulse Ox 97 02/15/20 07:35 Body Mass Index 38.3 General patient resting comfortably in no acute distress. Neck is supple no JVD. CVS regular rate rhythm, Respiratory lungs clear to auscultation, no respiratory distress, no wheeze, no rhonchi. Gastrointestinal abdomen soft, nontender, bowel sounds audible Neuro nonfocal, speech clear. Skin no rash Extremities no edema DS: Data Data Completed and Pending Labs on day of discharge: Laboratory Tests 02/13/20 02/13/20 02/13/20 03:48 03:48 03:49 WBC 10.3 RBC 4.82 Hgb 14.4 Hct 44.1 MCV 91.5 MCH 29.9 MCHC 32.7 RDW 12.9 Plt Count 182 D MPV 11.6 Immature Gran % (Auto) 0.2 Neut % (Auto) 73.8 H Lymph % (Auto) 19.4 L [place] % (Auto) 5.4 Eos % (Auto) 0.8 Baso % (Auto) 0.4 Lymph # (Auto) 2.0 [place] # (Auto) 0.6 Eos # (Auto) 0.1 Baso # (Auto) 0.0 Abs Immat Gran (auto) 0.02 Absolute Neuts (auto) 7.6 Absolute Nucleated RBC 0.000 Nucleated RBC % (auto) 0.0 Hold Blue Top Sodium Potassium Chloride Carbon Dioxide Anion Gap BUN Creatinine Estim Creat Clear Calc Estimated GFR Random Glucose Lactic Acid 1.4 Calcium Magnesium Total Bilirubin Direct Bilirubin AST ALT Alkaline Phosphatase Ammonia 43 Troponin I High Sens Total Protein Albumin Lipase Urine Color Urine Appearance Urine pH Ur Specific [place] Urine Protein Urine Glucose (UA) Urine Ketones Urine Blood Urine Nitrite Ur Leukocyte Esterase COVID-19 ([place]IEGO) COVID-[employer] 02/13/20 02/13/20 02/13/20 03:49 03:49 03:49 WBC RBC Hgb Hct MCV MCH MCHC RDW Plt Count MPV Immature Gran % (Auto) Neut % (Auto) Lymph % (Auto) [place] % (Auto) Eos % (Auto) Baso % (Auto) Lymph # (Auto) [place] # (Auto) Eos # (Auto) Baso # (Auto) Abs Immat Gran (auto) Absolute Neuts (auto) Absolute Nucleated RBC Nucleated RBC % (auto) Hold Blue Top SEE NOTE Sodium Cancelled Potassium Cancelled Chloride Cancelled Carbon Dioxide Cancelled Anion Gap Cancelled BUN Cancelled Creatinine Cancelled Estim Creat Clear Calc Cancelled Estimated GFR Cancelled Random Glucose Cancelled Lactic Acid Calcium Cancelled Magnesium Cancelled Total Bilirubin Cancelled Direct Bilirubin Cancelled AST Cancelled ALT Cancelled Alkaline Phosphatase Cancelled Ammonia Troponin I High Sens < 3.5 D Total Protein Cancelled Albumin Cancelled Lipase Cancelled Urine Color Urine Appearance Urine pH Ur Specific [place] Urine Protein Urine Glucose (UA) Urine Ketones Urine Blood Urine Nitrite Ur Leukocyte Esterase COVID-19 ([place]) COVID-[employer] 02/13/20 02/13/20 02/14/20 03:49 05:10 10:17 WBC 5.0 RBC 4.80 Hgb 14.3 Hct 43.8 MCV 91.3 MCH 29.8 MCHC 32.6 RDW 13.0 Plt Count 148 L MPV 11.7 Immature Gran % (Auto) 0.2 Neut % (Auto) 70.5 Lymph % (Auto) 21.0 [place] % (Auto) 5.9 Eos % (Auto) 1.8 Baso % (Auto) 0.6 Lymph # (Auto) 1.0 L [place] # (Auto) 0.3 Eos # (Auto) 0.1 Baso # (Auto) 0.0 Abs Immat Gran (auto) 0.01 Absolute Neuts (auto) 3.5 Absolute Nucleated RBC 0.000 Nucleated RBC % (auto) 0.0 Hold Blue Top Sodium 141 Potassium 3.9 Chloride 109 H Carbon Dioxide 25 Anion Gap 11 L BUN 21 H Creatinine 0.83 Estim Creat Clear Calc 119.5 Estimated GFR > 60 Random Glucose 96 Lactic Acid Calcium 7.6 L Magnesium 2.2 Total Bilirubin 0.4 Direct Bilirubin 0.2 AST 9 ALT 8 Alkaline Phosphatase 48 Ammonia Troponin I High Sens Total Protein 5.4 L Albumin 3.2 L D Lipase 7 L Urine Color Urine Appearance Urine pH Ur Specific [place] Urine Protein Urine Glucose (UA) Urine Ketones Urine Blood Urine Nitrite Ur Leukocyte Esterase COVID-19 ([place]) Negative COVID-19 Clin Com See Note 02/14/20 02/14/20 10:17 10:39 WBC RBC Hgb Hct MCV MCH MCHC RDW Plt Count MPV Immature Gran % (Auto) Neut % (Auto) Lymph % (Auto) [place] % (Auto) Eos % (Auto) Baso % (Auto) Lymph # (Auto) [place] # (Auto) Eos # (Auto) Baso # (Auto) Abs Immat Gran (auto) Absolute Neuts (auto) Absolute Nucleated RBC Nucleated RBC % (auto) Hold Blue Top Sodium 147 H Potassium 4.2 Chloride 109 H Carbon Dioxide 30 H Anion Gap 12 BUN 15 Creatinine 0.79 Estim Creat Clear Calc 125.6 Estimated GFR > 60 Random Glucose 94 Lactic Acid Calcium 8.6 D Magnesium Total Bilirubin Direct Bilirubin AST ALT Alkaline Phosphatase Ammonia Troponin I High Sens Total Protein Albumin Lipase Urine Color YELLOW Urine Appearance CLEAR Urine pH 6.5 Ur Specific [place] 1.010 Urine Protein NEG Urine Glucose (UA) NEG Urine Ketones NEG Urine Blood NEG Urine Nitrite NEG Ur Leukocyte Esterase NEG COVID-19 ([place]IE[facility]) COVID-19 Clin Com Preliminary micro results at discharge 02/13/20 05:12 Blood Culture - Preliminary Blood - Venous No growth after 48 hours. 02/13/20 03:49 Blood Culture - Preliminary Blood - Venous No growth after 48 hours. 02/13/20 03:49 Blood Culture - Preliminary Blood - Venous No growth after 48 hours. Discharge Plan Discharge Patient Disposition: [facility] Referrals: Physician,Unknown [Primary Care Provider] - Discharge Medications: New amoxicillin-pot clavulanate [Augmentin] 875-125 mg tablet 1 tab PO BID Qty: 6 RF: 0 Continued metoprolol succinate 50 mg Tablet Extended Release 24 Hr 50 mg PO DAILY RF: 0 diazepam 2 mg Tablet 2 mg PO BEDTIME RF: 0 melatonin 1 mg Tablet 1 mg PO BEDTIME RF: 0 pregabalin [Lyrica] 300 mg Capsule 300 mg PO BID RF: 0 ibuprofen 800 mg Tablet 800 mg PO Q8H PRN (Reason: FEVER/PAIN) RF: 0 divalproex 500 mg Tablet,Delayed Release (Dr/Ec) 500 mg PO BEDTIME RF: 0 acetaminophen 500 mg Tablet 500 mg PO Q6H PRN (Reason: FEVER/MILD PAIN) RF: 0 bisacodyl 10 mg Suppository 10 mg MT Q24H PRN (Reason: Constipation) RF: 0 polyethylene glycol 3350 17 gram/dose Powder 17 g PO DAILY RF: 0 polyethylene glycol 3350 17 gram/dose Powder 17 g PO Q24H PRN (Reason: Constipation) RF: 0 pregabalin 100 mg Capsule 100 mg PO BID RF: 0 witch monica 50 % Pads, Medicated 1 pad TOPICAL Q24H PRN (Reason: Hemorrhoids) RF: 0 lidocaine 5 % Ointment 1 appl TOPICAL Q6H PRN (Reason: Constipation) RF: 0 Senna Plus 8.6-50 mg Capsule 1 tab-cap PO Q24H PRN (Reason: Constipation) RF: 0 Senna Plus 8.6-50 mg Capsule 1 tab-cap PO BEDTIME RF: 0 cholecalciferol (vitamin D3) 25 mcg (1,000 unit) Tablet 50 mcg PO DAILY RF: 0 Discontinued metoprolol succinate 100 mg Tablet Extended Release 24 Hr 100 mg PO DAILY RF: 0 Discharge Orders: Discharge Order (Routine); Ordered 02/15/20 Ordered By: Zuly Antonio Diet: regular diet Activity on Discharge: As tolerated Visit Report Forms: Patient Portal Discharge page Care Plan Goals: Continue all home medication and take antibiotic as directed Health Concerns: Hypoxia resolved Plan of Treatment: Close outpatient follow-up with PCP
--- NOTE | 2020-02-15 13:58 | PC.NURSE ---
Pt c/o abd pain, nausea, and poor appetite. Dr. Antonio made aware. Dr. Antonio at bedside. No acute findings on assessment. Pt spoke with Case Management and sister, Elizabeth. Pt more comfortable with discharge. MD aware.
== END 2020-02-15 14:15 | disposition skilled nursing facility (03) | DRG 137 ==
LOC: HO.ED 03:45 → HO.IMC 02-14 16:02 → HO.S3 02-14 16:48
PROVIDERS: Admitting Provider Student in an Organized Health Care Education/Training Program; Emergency Provider Emergency Medicine; PCP Hospitalist; Visit Provider Hospitalist
DX: J69.0 Pneumonitis due to inhalation of food and vomit (principal); J96.01 Acute respiratory failure with hypoxia; I10 Essential (primary) hypertension; G40.909 Epilepsy, unspecified, not intractable, without status epilepticus; J98.11 Atelectasis; G31.84 Mild cognitive impairment of uncertain or unknown etiology; Z88.2 Allergy status to sulfonamides; Z20.828 Contact with and (suspected) exposure to other viral communicable diseases; Z79.1 Long term (current) use of non-steroidal anti-inflammatories (NSAID); Z79.899 Other long term (current) drug therapy
CPT/HCPCS: 36415; 71045; 80048; 80076; 81003; 82140; 83605; 83690; 83735; 84484; 85025; 87040; 87635; 93005; 96361; 96374; 99285; J1650; J2060; J2543

== ENCOUNTER 2020-11-01 18:33 | Emergency (ER) | payer MEDICAID, SELFPAY ==
--- NOTE | ~2020-11-01 | XR_ITS ---
EXAMINATION: PORTABLE CHEST 1 VIEW CLINICAL INFORMATION: sob . COMPARISON: 02/13/2020. TECHNIQUE: Portable frontal view of the chest was obtained. FINDINGS: The lungs are hypoexpanded with minimal left basilar markings more likely reflecting component of atelectasis. No focal infiltrate, effusion, edema, or pneumothorax. Cardiac and mediastinal silhouettes are within normal limits for technique. No acute bony abnormality seen. XR/XR chest 1V IMPRESSION: Hypoexpanded with minimal increased left basilar markings likely reflecting a component of atelectasis. No acute process seen otherwise.
--- NOTE | ~2020-11-01 | CT_ITS ---
EXAMINATION: CT ABDOMEN AND PELVIS WITHOUT CONTRAST CLINICAL INFORMATION: abd pain r/o sbo . COMPARISON: 11/17/2019. TECHNIQUE: Multidetector volumetric imaging was performed from the superior aspect of the liver through the pubic symphysis without contrast per request. Sagittal and coronal reformatted images were obtained on the technologist workstation. This CT examination was performed using dose optimization techniques as appropriate, variously including the following: *Automated exposure control *Adjustment of mA and/or kV according to patient size (this includes techniques or standardized protocols for targeted exams where dose is matched to indication/reason for exam; i.e. extremities or head) *Use of iterative reconstruction technique DLP: 916 mGy-cm. FINDINGS: LUNG BASES: There is patchy bilateral airspace disease possibly due to atelectasis although atypical or viral infectious etiology cannot be entirely excluded with this appearance LIVER, GALLBLADDER, BILIARY TREE: The non-contrast liver is normal in size, shape, and attenuation. No focal hepatic lesion or biliary ductal dilatation is present. The gallbladder is unremarkable with no evidence of radiopaque gallstones, gallbladder wall thickening, or obvious pericholecystic inflammatory changes. PANCREAS: Unremarkable. SPLEEN: Unremarkable. ADRENAL GLANDS: Unremarkable. KIDNEYS AND URETERS: The kidneys are normal in size, shape, and attenuation. No hydronephrosis, hydroureter, or calculi seen. No perinephric stranding. BLADDER: Decompressed GASTROINTESTINAL TRACT: Large amount of stool is again seen within the distended rectum. Stool and air seen throughout the colon otherwise. There is scattered colonic diverticulosis but no obvious diverticulitis nonobstructed small bowel seen within the infra helical ventral hernia similar to the prior study ABDOMINAL WALL: Infraumbilical nonobstructing small bowel containing hernia similar to the previous exam LYMPHOVASCULAR STRUCTURES: No lymphadenopathy. The aorta is unremarkable.. PELVIC VISCERA: Unremarkable. OSSEUS STRUCTURES: Mild multilevel degenerative changes to the spine again noted CT/CT abdomen pelvis wo con IMPRESSION: Rectum is distended with stool similar appearance to the prior study. There is scattered diverticulosis but no obvious diverticulitis.
[2020-11-01 18:37] VITALS: BP 112/63; PULSE 86; O2SAT 95
[2020-11-01 18:53] VITALS: BP 115/69; PULSE 80; RESP 20; TEMP 37.6; O2SAT 92; BMI 38.9
[2020-11-01 18:55] VITALS: BP 115/69; PULSE 80; RESP 20; TEMP 37.6; O2SAT 92
--- NOTE | 2020-11-01 18:59 | ECG_ITS ---
Test Reason : CHEST PAIN Blood Pressure : / mmHG Vent. Rate : 078 BPM Atrial Rate : 078 BPM P-R Int : 158 ms QRS Dur : 080 ms QT Int : 360 ms P-R-T Axes : 029 -12 016 degrees QTc Int : 410 ms Normal sinus rhythm Low voltage QRS Borderline ECG When compared with ECG of 13-FEB-2020 03:20, Heart rate has increased Referred By: Peggy Weaver Electronically Signed By:GURMEET PAUL
--- NOTE | 2020-11-01 19:03 | ED.ABDPAIN ---
HPI - Abdominal Pain General Chief Complaint: Abdominal Pain Stated Complaint: VOMITING Time Seen by Provider: 11/01/20 18:59 Source: patient and EMS Mode of arrival: EMS Limitations: no limitations History of Present Illness HPI narrative: 55 years old male with a history of mild cognitive disorder came in from [facility] for evaluation of vomiting. Patient somehow is a vague historian was complaining of abdominal pain today describes the pain as lower abdomen with no radiation, pain is constant about 5/10, nothing relieves the pain, nothing aggravated the pain,, patient had a history of intra-abdominal surgery, patient also has been vomiting. Depigmented by snf the patient had a period of hypoxia of 89% on room air improved with 3 L of oxygen to 99%. Related Data Home Medications Medication Instructions Recorded Confirmed diazepam 2 mg tablet 2 mg PO BEDTIME 11/17/19 11/01/20 melatonin 1 mg tablet 1 mg PO BEDTIME 11/17/19 11/01/20 metoprolol succinate 50 mg 50 mg PO DAILY 11/17/19 11/01/20 tablet,extended release 24 hr pregabalin 300 mg capsule (Lyrica) 300 mg PO BID 11/17/19 11/01/20 acetaminophen 500 mg tablet 500 mg PO Q6H PRN 02/13/20 11/01/20 bisacodyl 10 mg rectal suppository 10 mg WA Q24H PRN 02/13/20 11/01/20 cholecalciferol (vitamin D3) 25 50 mcg PO DAILY 02/13/20 11/01/20 mcg (1,000 unit) tablet divalproex 500 mg tablet,delayed 500 mg PO BEDTIME 02/13/20 02/13/20 release ibuprofen 800 mg tablet 800 mg PO Q8H PRN 02/13/20 02/13/20 lidocaine 5 % topical ointment 1 appl TOPICAL Q6H PRN 02/13/20 02/13/20 polyethylene glycol 3350 17 17 g PO DAILY 02/13/20 02/13/20 gram/dose oral powder polyethylene glycol 3350 17 17 g PO Q24H PRN 02/13/20 11/01/20 gram/dose oral powder pregabalin 100 mg capsule 100 mg PO BID 02/13/20 02/13/20 sennosides 8.6 mg-docusate sodium 1 tab-cap PO BEDTIME 02/13/20 02/13/20 50 mg capsule (Senna Plus) sennosides 8.6 mg-docusate sodium 1 tab-cap PO Q24H PRN 02/13/20 02/13/20 50 mg capsule (Senna Plus) witch monica 50 % topical pads 1 pad TOPICAL Q24H PRN 02/13/20 02/13/20 Previous Rx's Medication Instructions Recorded amoxicillin 875 mg-potassium 1 tab PO BID #6 tab 02/15/20 clavulanate 125 mg tablet (Augmentin) Allergies Allergy/AdvReac Type Severity Reaction Status Date / Time aripiprazole [From ABILIFY] Allergy Unknown UNKNOWN Verified 11/01/20 19:40 droperidol [From INAPSINE] Allergy Unknown UNKNOWN Verified 11/01/20 19:40 haloperidol [From HALDOL] Allergy Unknown UNKNOWN Verified 11/01/20 19:40 prochlorperazine Allergy Unknown UNKNOWN Verified 11/01/20 19:40 [From COMPAZINE] promethazine [From PHENERGAN] Allergy Unknown UNKNOWN Verified 11/01/20 19:40 sulfamethoxazole Allergy Unknown UNKNOWN Verified 11/01/20 19:40 [From BACTRIM] trimethoprim [From BACTRIM] Allergy Unknown UNKNOWN Verified 11/01/20 19:40 Review of Systems Review of Systems All other systems are reviewed and are negative Constitutional: Reports as per HPI and Reports no additional constitutional complaints Eyes: Reports as per HPI and Reports no additional eye complaints Reports system reviewed and no additional complaints, except as documented Cardiovascular: Reports as per HPI and Reports no additional cardiovascular complaints Respiratory: Reports as per HPI and Reports no additional respiratory complaints Gastrointestinal: Reports as per HPI and Reports no additional gastrointestinal complaints Genitourinary: Reports no additional female genitourinary complaints Musculoskeletal: Reports no additional musculoskeletal complaints Skin/Breast: Reports system reviewed and no additional complaints, except as docu Psychiatric: Reports no additional psychiatric complaints Endocrine: Reports no additional endocrine complaints Hematologic/Lymphatic: Reports no additional hematologic/lymphatic complaints Allergic/Immunologic: Reports no additional allergic/immunologic complaints Reports system reviewed and no additional complaints, except as documented and Reports Abnormal speech present Physical Exam Vital Signs: Vital Signs: Last Vital Signs Temp 99.7 F 11/01/20 18:55 Pulse 70 11/01/20 19:47 Resp 18 11/01/20 19:47 BP 176/96 H 11/01/20 19:47 Pulse Ox 95 11/01/20 19:47 Body Mass Index 38.9 Vital signs have been reviewed as appeared to be correct. Blood pressure normal. Heart rate normal. Respiration rate normal. Temperature normal. Oxygen saturation normal. Appearance: Alert. Oriented X3. No acute distress. Head: Normal external exam. Normocephalic. Atraumatic. No Valenzuela signs noted. No raccoon eyes noted Eyes: PERRLA. EOMI. Conjunctiva and sclera normal. Eyelids normal. ENT: TM's Normal. Pharynx normal. Uvula midline. Moist mucous membranes. No trismus noted. No drooling noted. No muffled voice noted. Neck: Normal inspection. Neck supple. FROM. No adenopathy. Thyroid Normal. No meningeal signs. No neck mass noted. CVS: Normal heart rate and rhythm. Heart sound normal. No murmurs noted. Pulses normal throughout. Respiratory: No respiratory distress. Painless inspiration. Breath sounds normal. No wheezes/rales/rhonchi noted. Chest nontender. No accessory muscle usage noted or decreased air movement noted. Abdomen: Soft, mild tenderness mostly to the lower abdomen/suprapubic area. Bowel sounds normal in all 4 quadrants. No distention noted. No organomegaly noted. No visible injury noted. Back: No CVA tenderness. Full range of motion noted. Skin: Skin warm and dry. Normal skin color. Normal skin turgor. No rashes/lesions/lacerations noted. Extremities: No lower extremity edema. Extremities exhibit normal range of motion. Extremities nontender. Neuro: Oriented X 3. Cranial nerve exam: II-XII are grossly intact No motor deficit. No sensory deficit. Reflexes normal. Course Course Course Narrative: Assessment and plan. 55-year-old male came in with abdominal pain , nausea, and vomiting. Patient received IV fluid and Zofran normal vomiting able tolerate p.o. intake. Labs are unremarkable, CT of the abdomen pelvis showed no acute pathology. Deep sent back to snf. MDM - Abdominal Pain Lab Data Attestation: I reviewed the patient's lab results. Result diagrams: 11/01/20 19:31 11/01/20 19:31 Labs: Lab Results 09/27/21 09/27/21 09/27/21 Range/Units 19:15 19:31 19:31 WBC 10.4 (4.8-10.8) X10*3/uL RBC 5.30 (4.60-5.80) X10*6/uL Hgb 16.2 (14.0-18.0) g/dl Hct 47.7 (42-52) % MCV 90.0 (80-98) fL MCH 30.6 (27.0-33.0) pg MCHC 34.0 (31.0-36.0) g/dl RDW 13.6 (11.0-16.0) % Plt Count 112 L (160-400) X10*3/uL MPV 11.8 (9.4-12.4) fL Immature Gran % (Auto) 0.4 (0.0-0.4) % Neut % (Auto) 87.9 H (45-73) % Lymph % (Auto) 5.6 L (20-40) % [place] % (Auto) 5.7 (2-11) % Eos % (Auto) 0.2 (0-4) % Baso % (Auto) 0.2 (0-2) % Lymph # (Auto) 0.6 L (1.2-4.9) X10*3/uL [place] # (Auto) 0.6 (0.1-1.2) X10*3/uL Eos # (Auto) 0.0 (0.0-0.4) X10*3/uL Baso # (Auto) 0.0 (0.0-0.2) X10*3/uL Abs Immat Gran (auto) 0.04 H (0.00-0.03) X10*3/uL Absolute Neuts (auto) 9.2 H (2.0-8.3) X10*3/uL Absolute Nucleated RBC 0.000 (0.0-0.012) X10*3/uL Nucleated RBC % (auto) 0.0 (0.0-0.2) /100WBC Smear Tech's Comments VERIFIED Sodium 143 (135-145) mmol/L Potassium 4.3 (3.3-5.1) mmol/L Chloride 105 (96-108) mmol/L Carbon Dioxide 28 (22-29) mmol/L Anion Gap 14 (12-20) BUN 20 H (9-16) mg/dL Creatinine 0.94 (0.5-1.4) mg/dL Estim Creat Clear Calc 106.5 Estimated GFR > 60 Random Glucose 119 H (60-115) mg/dL Calcium 9.3 D (8.4-10.2) mg/dL Total Bilirubin 0.7 (0.0-1.0) mg/dL Direct Bilirubin 0.2 (0.0-0.5) mg/dL AST 16 D (5-37) U/L ALT 20 (0-40) U/L Alkaline Phosphatase 85 D (39-117) U/L Troponin I High Sens (<3.5-35.0) ng/L B-Natriuretic Peptide (<100) pg/mL Total Protein 7.2 D (6.5-8.0) g/dL Albumin 4.2 D (3.5-5.0) g/dL Lipase 5 L (8-78) U/L Urine Color Urine Appearance Urine pH (5.0-8.0) Ur Specific [place] (1.005-1.025) Urine Protein (NEG-TRACE) MG/DL Urine Glucose (UA) (NEG) MG/DL Urine Ketones (NEG) MG/DL Urine Blood (NEG) Urine Nitrite (NEG) Ur Leukocyte Esterase (NEG) COVID-19 ([place]) Negative (Negative) COVID-19 Clin Com See Note 11/01/20 11/01/20 Range/Units 19:31 20:28 WBC (4.8-10.8) X10*3/uL RBC (4.60-5.80) X10*6/uL Hgb (14.0-18.0) g/dl Hct (42-52) % MCV (80-98) fL MCH (27.0-33.0) pg MCHC (31.0-36.0) g/dl RDW (11.0-16.0) % Plt Count (160-400) X10*3/uL MPV (9.4-12.4) fL Immature Gran % (Auto) (0.0-0.4) % Neut % (Auto) (45-73) % Lymph % (Auto) (20-40) % [place] % (Auto) (2-11) % Eos % (Auto) (0-4) % Baso % (Auto) (0-2) % Lymph # (Auto) (1.2-4.9) X10*3/uL [place] # (Auto) (0.1-1.2) X10*3/uL Eos # (Auto) (0.0-0.4) X10*3/uL Baso # (Auto) (0.0-0.2) X10*3/uL Abs Immat Gran (auto) (0.00-0.03) X10*3/uL Absolute Neuts (auto) (2.0-8.3) X10*3/uL Absolute Nucleated RBC (0.0-0.012) X10*3/uL Nucleated RBC % (auto) (0.0-0.2) /100WBC Smear Tech's Comments Sodium (135-145) mmol/L Potassium (3.3-5.1) mmol/L Chloride (96-108) mmol/L Carbon Dioxide (22-29) mmol/L Anion Gap (12-20) BUN (9-16) mg/dL Creatinine (0.5-1.4) mg/dL Estim Creat Clear Calc Estimated GFR Random Glucose (60-115) mg/dL Calcium (8.4-10.2) mg/dL Total Bilirubin (0.0-1.0) mg/dL Direct Bilirubin (0.0-0.5) mg/dL AST (5-37) U/L ALT (0-40) U/L Alkaline Phosphatase (39-117) U/L Troponin I High Sens < 3.5 (<3.5-35.0) ng/L B-Natriuretic Peptide 11 (<100) pg/mL Total Protein (6.5-8.0) g/dL Albumin (3.5-5.0) g/dL Lipase (8-78) U/L Urine Color YELLOW Urine Appearance CLEAR Urine pH 8.0 (5.0-8.0) Ur Specific [place] 1.015 (1.005-1.025) Urine Protein TRACE (NEG-TRACE) MG/DL Urine Glucose (UA) NEG (NEG) MG/DL Urine Ketones 15 (NEG) MG/DL Urine Blood NEG (NEG) Urine Nitrite NEG (NEG) Ur Leukocyte Esterase NEG (NEG) COVID-19 ([place]GO) (Negative) COVID-19 Clin Com Imaging Data CT scan - abdomen: Radiologist's impression: Rectum is distended with stool similar appearance to the prior study. There is scattered diverticulosis but no obvious diverticulitis. ? Discharge Plan Discharge Clinical Impression: Abdominal pain, Vomiting, Constipation Patient Disposition: Home, Self-Care Instructions: Abdominal Pain (ED) Prescriptions: No Action metoprolol succinate 50 mg Tablet Extended Release 24 Hr 50 mg PO DAILY RF: 0 diazepam 2 mg Tablet 2 mg PO BEDTIME RF: 0 melatonin 1 mg Tablet 1 mg PO BEDTIME RF: 0 pregabalin [Lyrica] 300 mg Capsule 300 mg PO BID RF: 0 ibuprofen 800 mg Tablet 800 mg PO Q8H PRN (Reason: FEVER/PAIN) RF: 0 divalproex 500 mg Tablet,Delayed Release (Dr/Ec) 500 mg PO BEDTIME RF: 0 acetaminophen 500 mg Tablet 500 mg PO Q6H PRN (Reason: FEVER/MILD PAIN) RF: 0 bisacodyl 10 mg Suppository 10 mg [place] Q24H PRN (Reason: Constipation) RF: 0 polyethylene glycol 3350 17 gram/dose Powder 17 g PO DAILY RF: 0 polyethylene glycol 3350 17 gram/dose Powder 17 g PO Q24H PRN (Reason: Constipation) RF: 0 pregabalin 100 mg Capsule 100 mg PO BID RF: 0 witch monica 50 % Pads, Medicated 1 pad TOPICAL Q24H PRN (Reason: Hemorrhoids) RF: 0 lidocaine 5 % Ointment 1 appl TOPICAL Q6H PRN (Reason: Constipation) RF: 0 Senna Plus 8.6-50 mg Capsule 1 tab-cap PO Q24H PRN (Reason: Constipation) RF: 0 Senna Plus 8.6-50 mg Capsule 1 tab-cap PO BEDTIME RF: 0 cholecalciferol (vitamin D3) 25 mcg (1,000 unit) Tablet 50 mcg PO DAILY RF: 0 amoxicillin-pot clavulanate [Augmentin] 875-125 mg tablet 1 tab PO BID Qty: 6 RF: 0 Referrals: Augustine Dan DO [Primary Care Provider] - 2 days PMF Past Medical History Medical History Deformity of left hand Epilepsy Generalized anxiety disorder Hypertension Major depressive disorder Mild cognitive impairment Social History Social History Household Members: Caregiver Household Members Other:: Nursing facility Housing: Detention Do you presently have visiting nurse or other home services: No Unable to assess alcohol history related to: Unable to respond Alcohol intake: never Patient Tobacco Use Status: Never used Tobacco Second Hand Smoke Exposure: No Use of substances other than those prescribed or required for medical reasons: No Advance Directives: No service: No Current occupational status: disabled
[2020-11-01 19:36] LABS: COVID-19 Test Negative (Negative)
[2020-11-01 19:36] LABS: Eosinophils Percent Auto 0.2 % (0-4); MANUAL DIFF FLAG SCAN; Monocytes Absolute Auto 0.6 X10*3/uL (0.1-1.2); Monocytes Percent Auto 5.7 % (2-11); PLT CLUMP 1; SCAN SMEAR FLAG 1
--- NOTE | 2020-11-01 19:37 | PC.NURSE ---
sister states he has a history of rectal prolapse, and had surgery to repair 5 years. Scheduled for a colonoscopy on 01/13/21. States patients stomach has been distended for several days.
[2020-11-01 19:38] LABS: Basophils Percent Auto 0.2 % (0-2); Hematocrit 47.7 % (42-52); Hemoglobin 16.2 g/dl (14.0-18.0); Imm Gran Abs Auto 0.04 X10*3/uL (0.00-0.03); Imm Gran Pct Auto 0.4 % (0.0-0.4); Lymphocytes Absolute Auto 0.6 X10*3/uL (1.2-4.9); Lymphocytes Percent Auto 5.6 % (20-40); Mean Corpuscular Hemoglobin 30.6 pg (27.0-33.0); Mean Platelet Volume 11.8 fL (9.4-12.4); Neutrophils Absolute Auto 9.2 X10*3/uL (2.0-8.3); Neutrophils Percent Auto 87.9 % (45-73); Platelet Count 112 X10*3/uL (160-400); Red Cell Distribution Width 13.6 % (11.0-16.0); White Blood Count 10.4 X10*3/uL (4.8-10.8)
[2020-11-01] MEDS: ondansetron HCL 4 MG/2 ML VIAL IVPUSH (19:44)
[2020-11-01] MEDS: 0.9 % Sodium Chloride 1,000 ML 999 ML IVCONT (19:44)
[2020-11-01 19:47] VITALS: BP 176/96; PULSE 70; RESP 18; O2SAT 95
[2020-11-01 19:51] LABS: Alanine Aminotransferase 20 U/L (0-40); Albumin Level 4.2 g/dL (3.5-5.0); Alkaline Phosphatase 85 U/L (39-117); Anion Gap 14 (12-20); Aspartate Amino Transferase 16 U/L (5-37); Bilirubin Direct 0.2 mg/dL (0.0-0.5); Bilirubin Total 0.7 mg/dL (0.0-1.0); Blood Urea Nitrogen 20 mg/dL (9-16); Calcium 9.3 mg/dL (8.4-10.2); Carbon Dioxide 28 mmol/L (22-29); Chloride 105 mmol/L (96-108); Creatinine Clr Calc Pharmacy 106.5; Estimated Glomerular Filt Rate > 60; Glucose Random 119 mg/dL (60-115); Lipase 5 U/L (8-78); Potassium 4.3 mmol/L (3.3-5.1); Sodium 143 mmol/L (135-145); Total Protein 7.2 g/dL (6.5-8.0)
[2020-11-01 19:56] LABS: B Type Natriuretic Peptide 11 pg/mL (<100); SLIDE REVIEW VERIFIED; Troponin-I High Sensitivity < 3.5 ng/L (<3.5-35.0)
[2020-11-01 20:42] LABS: Appearance Urine CLEAR; Color Urine YELLOW; Glucose Urine UA NEG (NEG); Leukocyte Esterase Urine NEG (NEG); Nitrite Urine NEG (NEG); Specific Gravity - Urine 1.015 (1.005-1.025); Urine Blood NEG (NEG); Urine Ketones 15 MG/DL (NEG); Urine Protein TRACE MG/DL (NEG-TRACE)
== END 2020-11-01 22:17 | disposition home or self-care (01) ==
PROVIDERS: Emergency Provider Emergency Medicine; PCP Hospitalist
DX: R11.10 Vomiting, unspecified (principal); K59.00 Constipation, unspecified; Z79.899 Other long term (current) drug therapy; Z20.822 Contact with and (suspected) exposure to COVID-19
CPT/HCPCS: 36415; 71045; 74176; 80048; 80076; 81003; 83690; 83880; 84484; 85025; 87635; 93005; 96361; 96374; 99284; 99285; J2405

== ENCOUNTER 2021-02-08 08:43 | Day surgery (SDC) | payer MEDICAID, SELFPAY ==
[2021-02-03 11:55] VITALS: BMI 38.7
--- NOTE | 2021-02-07 09:07 | P.CONAN_ITS ---
Documented by User: Alejandra Peacock NP 02/07/21 09:08 HPI - Anesthesia Eval Consult details Narrative: 56yo M for Colonoscopy *Multiple Med Allergies* PMFSH Active Problems Active Problems: All Active Problems (Updated 02/03/21 @ 11:32 by Maricarmen Romero, RN) Aspiration pneumonia (Acute) Sepsis (Acute) Constipation (Acute) Lactic acidosis (Acute) Hypoxia (Acute) Hypertension (Acute) Generalized anxiety disorder (Acute) Epilepsy (Acute) Past Medical History Medical History (Updated 02/03/21 @ 11:32 by Maricarmen Romero, RN) Bilateral cataracts Cognitive impairment Deformity of left hand Depression Diverticular disease Epilepsy Flexion contractures Generalized anxiety disorder History of GI bleed History of hemodialysis Hx of deep venous thrombosis Hypertension Major depressive disorder Mild cognitive impairment Neuroleptic malignant syndrome OCD (obsessive compulsive disorder) Osteoarthritis Personal history of COVID-19 Rectal prolapse Seizure disorder Thrombocytopenia Urinary incontinence Surgical History Surgical History History of repair of rectocele Hx of appendectomy Hx of colonoscopy Social History Social History Household Members: Caregiver Household Members Other:: Nursing facility Housing: Prison Do you presently have visiting nurse or other home services: No Unable to assess alcohol history related to: Unable to respond Alcohol intake: never Patient Tobacco Use Status: Never used Tobacco Second Hand Smoke Exposure: No Are you DNR?: No Advance Directives: Yes Advance Directives Information Provided: No Advance Directives on File: Yes Advance Directives Date on File: 11/21/19 service: No Current occupational status: disabled Meds Allergies Allergy/AdvReac Type Severity Reaction Status Date / Time aripiprazole [From ABILIFY] Allergy Unknown UNKNOWN Verified 11/01/20 19:40 droperidol [From INAPSINE] Allergy Unknown UNKNOWN Verified 11/01/20 19:40 haloperidol [From HALDOL] Allergy Unknown UNKNOWN Verified 11/01/20 19:40 prochlorperazine Allergy Unknown UNKNOWN Verified 11/01/20 19:40 [From COMPAZINE] promethazine [From PHENERGAN] Allergy Unknown UNKNOWN Verified 11/01/20 19:40 sulfamethoxazole Allergy Unknown UNKNOWN Verified 11/01/20 19:40 [From BACTRIM] trimethoprim [From BACTRIM] Allergy Unknown UNKNOWN Verified 11/01/20 19:40 Home Medications Medication Instructions Recorded Confirmed Last Taken Type diazepam 2 mg tablet 2 mg PO BEDTIME 11/17/19 02/03/21 11/16/19 History melatonin 1 mg tablet 1 mg PO BEDTIME 11/17/19 02/03/21 11/16/19 History metoprolol succinate 50 mg 50 mg PO DAILY 11/17/19 02/03/21 11/16/19 History tablet,extended release 24 hr pregabalin 300 mg capsule (Lyrica) 300 mg PO BID 11/17/19 02/03/21 11/17/19 History acetaminophen 500 mg tablet 500 mg PO Q6H PRN 02/13/20 02/03/21 Unknown History bisacodyl 10 mg rectal suppository 10 mg SD Q24H PRN 02/13/20 11/01/20 Unknown History cholecalciferol (vitamin D3) 25 50 mcg PO DAILY 02/13/20 02/03/21 Unknown History mcg (1,000 unit) tablet divalproex 500 mg tablet,delayed 500 mg PO BEDTIME 02/13/20 02/03/21 Unknown History release ibuprofen 800 mg tablet 800 mg PO Q8H PRN 02/13/20 02/13/20 Unknown History lidocaine 5 % topical ointment 1 appl TOPICAL Q6H PRN 02/13/20 02/13/20 Unknown History polyethylene glycol 3350 17 17 g PO DAILY 02/13/20 02/13/20 Unknown History gram/dose oral powder polyethylene glycol 3350 17 17 g PO Q24H PRN 02/13/20 11/01/20 Unknown History gram/dose oral powder pregabalin 100 mg capsule 100 mg PO BID 02/13/20 02/03/21 Unknown History sennosides 8.6 mg-docusate sodium 1 tab-cap PO BEDTIME 02/13/20 02/13/20 Unknown History 50 mg capsule (Senna Plus) sennosides 8.6 mg-docusate sodium 1 tab-cap PO Q24H PRN 02/13/20 02/03/21 Unknown History 50 mg capsule (Senna Plus) witch monica 50 % topical pads 1 pad TOPICAL Q24H PRN 02/13/20 02/13/20 Unknown History Exam Exam Date and Time: February 07, 2021 0907 Height,Weight and Vital Signs: Height 5 ft 7 in Weight 112.037 kg Pertinent Lab Results Pertinent Lab Results: Laboratory Tests 11/01/20 19:31 Sodium 143 Potassium 4.3 Chloride 105 Carbon Dioxide 28 BUN 20 H Creatinine 0.94 Narrative Narrative: EKG 10/2020 Vent. Rate : 078 BPM ? ? Atrial Rate : 078 BPM ?? P-R Int : 158 ms? QRS Dur : 080 ms ? ? QT Int : 360 ms ? ? ? P-R-T Axes : 029 -12 016 degrees ?? QTc Int : 410 ms ? Normal sinus rhythm Low voltage QRS Borderline ECG When compared with ECG of 13-FEB-2020 03:20, Heart rate has increased Assessment and Plan Assessment Anesthesia Assessment: Chart Reviewed Documented by User: Nathalia Stewart MD 02/08/21 08:50 COUNT INCLUDES THE [facility] Past Medical History Medical History (Updated 02/03/21 @ 11:32 by Maricarmen Romero RN) Bilateral cataracts Cognitive impairment Deformity of left hand Depression Diverticular disease Epilepsy Flexion contractures Generalized anxiety disorder History of GI bleed History of hemodialysis Hx of deep venous thrombosis Hypertension Major depressive disorder Mild cognitive impairment Neuroleptic malignant syndrome OCD (obsessive compulsive disorder) Osteoarthritis Personal history of COVID-19 Rectal prolapse Seizure disorder Thrombocytopenia Urinary incontinence Functional capacity: independent ambulation Family History Family history of problems with anesthesia: No Surgical History Surgical History History of repair of rectocele Hx of appendectomy Hx of colonoscopy History of Problems with Anesthesia: No Social History Social History Household Members: Caregiver Household Members Other:: Nursing facility Housing: Prison Do you presently have visiting nurse or other home services: No Unable to assess alcohol history related to: Unable to respond Alcohol intake: never Patient Tobacco Use Status: Never used Tobacco Second Hand Smoke Exposure: No Are you DNR?: No Advance Directives: Yes Advance Directives Information Provided: No Advance Directives on File: Yes Advance Directives Date on File: 11/21/19 service: No Current occupational status: disabled Meds Allergies Allergy/AdvReac Type Severity Reaction Status Date / Time aripiprazole [From ABILIFY] Allergy Unknown UNKNOWN Verified 11/01/20 19:40 droperidol [From INAPSINE] Allergy Unknown UNKNOWN Verified 11/01/20 19:40 haloperidol [From HALDOL] Allergy Unknown UNKNOWN Verified 11/01/20 19:40 prochlorperazine Allergy Unknown UNKNOWN Verified 11/01/20 19:40 [From COMPAZINE] promethazine [From PHENERGAN] Allergy Unknown UNKNOWN Verified 11/01/20 19:40 sulfamethoxazole Allergy Unknown UNKNOWN Verified 11/01/20 19:40 [From BACTRIM] trimethoprim [From BACTRIM] Allergy Unknown UNKNOWN Verified 11/01/20 19:40 Home Medications Medication Instructions Recorded Confirmed Last Taken Type diazepam 2 mg tablet 2 mg PO BEDTIME 11/17/19 02/03/21 11/16/19 History melatonin 1 mg tablet 1 mg PO BEDTIME 11/17/19 02/03/21 11/16/19 History metoprolol succinate 50 mg 50 mg PO DAILY 11/17/19 02/03/21 11/16/19 History tablet,extended release 24 hr pregabalin 300 mg capsule (Lyrica) 300 mg PO BID 11/17/19 02/03/21 11/17/19 History acetaminophen 500 mg tablet 500 mg PO Q6H PRN 02/13/20 02/03/21 Unknown History bisacodyl 10 mg rectal suppository 10 mg SD Q24H PRN 02/13/20 11/01/20 Unknown History cholecalciferol (vitamin D3) 25 50 mcg PO DAILY 02/13/20 02/03/21 Unknown H istory mcg (1,000 unit) tablet divalproex 500 mg tablet,delayed 500 mg PO BEDTIME 02/13/20 02/03/21 Unknown History release ibuprofen 800 mg tablet 800 mg PO Q8H PRN 02/13/20 02/13/20 Unknown History lidocaine 5 % topical ointment 1 appl TOPICAL Q6H PRN 02/13/20 02/13/20 Unknown History polyethylene glycol 3350 17 17 g PO DAILY 02/13/20 02/13/20 Unknown History gram/dose oral powder polyethylene glycol 3350 17 17 g PO Q24H PRN 02/13/20 11/01/20 Unknown History gram/dose oral powder pregabalin 100 mg capsule 100 mg PO BID 02/13/20 02/03/21 Unknown History sennosides 8.6 mg-docusate sodium 1 tab-cap PO BEDTIME 02/13/20 02/13/20 Unknown History 50 mg capsule (Senna Plus) sennosides 8.6 mg-docusate sodium 1 tab-cap PO Q24H PRN 02/13/20 02/03/21 Unk nown History 50 mg capsule (Senna Plus) witch monica 50 % topical pads 1 pad TOPICAL Q24H PRN 02/13/20 02/13/20 Unknown History Exam Airway Heart: RRR Lungs: CTA Assessment and Plan Final Anesthetic Review Family History of Problems with Anesthesia: No History of Problems with Anesthesia: No ASA Class: II Final Preanesthetic Review: No Changes in Pt Med Stat, Meds/Allgs Chart Reviewed, Consent Obtained/Reviewed and Anes Risks/Benef Reviewed Patient Risk: Low Procedure Risk: Low Anesthetic Plan Anesthetic Plan: MAC: Disposition: Standard PACU
[2021-02-08 08:48] VITALS: BP 140/99; PULSE 78; RESP 7; TEMP 36.1; O2SAT 97
[2021-02-08] MEDS: Lactated Ringers 1,000 ML 100 ML IVCONT (09:03)
--- NOTE | 2021-02-08 09:21 | MHC.SHP ---
Pre-Procedural Eval Section A Date of Service: 02/08/21 The patient is an INPATIENT: No Changes since office visit: No Cold of Flu in the past 2 weeks, No New Medical Problems, No Changes in Medication and No Patient answered all questions The History & Physical has been completed within 30 days and I have reviewed it.: Yes Section B Chief Complaint: screening Allergies: Allergies Allergy/AdvReac Type Severity Reaction Status Date / Time aripiprazole [From ABILIFY] Allergy Unknown UNKNOWN Verified 11/01/20 19:40 droperidol [From INAPSINE] Allergy Unknown UNKNOWN Verified 11/01/20 19:40 haloperidol [From HALDOL] Allergy Unknown UNKNOWN Verified 11/01/20 19:40 prochlorperazine Allergy Unknown UNKNOWN Verified 11/01/20 19:40 [From COMPAZINE] promethazine [From PHENERGAN] Allergy Unknown UNKNOWN Verified 11/01/20 19:40 sulfamethoxazole Allergy Unknown UNKNOWN Verified 11/01/20 19:40 [From BACTRIM] trimethoprim [From BACTRIM] Allergy Unknown UNKNOWN Verified 11/01/20 19:40 Plan I have reviewed the history and physical and performed a pertinent physical examination on my patient. No changes have occurred unless specified.
--- NOTE | 2021-02-08 10:11 | P.BOP_ITS ---
Brief Operative Note Date of Service: 02/08/21 Pre-op diagnosis: FH colon ca Post-op diagnosis: same (colon polyps) Surgeon: Pascual Tovar Anesthesia: MAC Was an Store Protection Specialist used for this Procedure?: No Estimated blood loss (mL): 2 Pathology: other (polyps cecum and 40cm) Condition: stable Disposition: PACU
[2021-02-08 10:12] VITALS: BP 110/70; PULSE 60; RESP 20; TEMP 36.8; O2SAT 99
[2021-02-08 10:27] VITALS: BP 126/79; PULSE 57; RESP 16; TEMP 36.8; O2SAT 98
--- NOTE | 2021-02-08 11:28 | OP_ITS ---
SURGEON: Pascual Tovar MD INDICATIONS: Family history of colon cancer. PREOPERATIVE DIAGNOSIS: POSTOPERATIVE DIAGNOSIS: PROCEDURE PERFORMED: ESTIMATED BLOOD LOSS: COMPLICATIONS: ANESTHESIA: ASSISTANTS: SPECIMENS: PROCEDURES: Colonoscopy to the terminal ileum with biopsy and snare polypectomy. MEDICATIONS: Monitored anesthesia care. DESCRIPTION OF PROCEDURE: History and physical was performed. The risks and benefits of the procedure were explained to the patient. Informed consent was obtained. The patient was placed in the left lateral decubitus position. A digital rectal exam was performed and was found to be normal. The Olympus pediatric video colonoscope was introduced into the rectum and advanced to the cecum without difficulty. The cecum was identified by transillumination, palpation, and identification of ileocecal valve. Examination was performed. The scope was removed. He tolerated the procedure well and was taken to Recovery in stable condition. FINDINGS: The terminal ileum was examined and appeared normal. The visualized colonic mucosa was normal. There was a moderate amount of liquid stool, some stool balls, and undigested food material. This limited the examination for detection of small polyps and was washed and suctioned as best possible. Two polyps were identified. The 1st was located in the cecum measuring less than 5 mm. This was removed with the biopsy forceps. The 2nd was located at 40 cm measuring approximately 6 mm. This was removed with a snare and recovered via suction. There was extensive sigmoid diverticulosis and there appeared to be some surgical changes about 20 cm to 30 cm from his previous surgery. Retroflexed examination was normal. IMPRESSION: Colon polyps. RECOMMENDATIONS: 1. Follow up biopsy results. 2. Repeat colonoscopy is recommended in 5 years. 3. Resume previous diet. MD LUIS F Mcelroy/PARISL / [phone]
--- NOTE | 2021-02-08 12:53 | HO.POSTANES ---
Post Anesthesia Evaluation Post Anesthesia Evaluation Vital Signs: Vital Signs Temp Pulse Resp BP Pulse Ox 02/08/21 10:27 98.2 F 57 16 126/79 98 02/08/21 10:12 98.2 F 60 20 110/70 99 02/08/21 08:48 97 F 78 7 L 140/99 H 97 Anesthesia: Monitored Mental Status: Awake Pain Control: Satisfactory Nausea/Vomiting: None Hydration: Adequate Anesthesia-Related Issues: No Anes. Related Issues
== END 2021-02-08 11:09 | disposition home or self-care (01) ==
PROVIDERS: PCP Hospitalist; Visit Provider Internal Medicine Gastroenterology
PROC: 0DJD8ZZ Inspection of Lower Intestinal Tract, Via Natural or Artificial Opening Endoscopic (ICD-10-PCS; CPT 45378; principal; 2021-02-08 09:30)
DX: Z12.11 Encounter for screening for malignant neoplasm of colon (principal); Z80.0 Family history of malignant neoplasm of digestive organs; Z83.71 Family history of colonic polyps; D12.5 Benign neoplasm of sigmoid colon; K63.5 Polyp of colon; K57.30 Diverticulosis of large intestine without perforation or abscess without bleeding; K63.89 Other specified diseases of intestine; D69.6 Thrombocytopenia, unspecified; I10 Essential (primary) hypertension; G21.0 Malignant neuroleptic syndrome; F42.9 Obsessive-compulsive disorder, unspecified; F32.9 Major depressive disorder, single episode, unspecified; G40.909 Epilepsy, unspecified, not intractable, without status epilepticus; M81.0 Age-related osteoporosis without current pathological fracture; R41.89 Other symptoms and signs involving cognitive functions and awareness; Z79.899 Other long term (current) drug therapy; Z79.1 Long term (current) use of non-steroidal anti-inflammatories (NSAID); Z88.8 Allergy status to other drugs, medicaments and biological substances
CPT/HCPCS: 45385; 45380; 88305

== ENCOUNTER 2021-11-17 13:41 | Emergency (ER) | payer MEDICAID, SELFPAY ==
--- NOTE | ~2021-11-17 | XR_ITS ---
EXAMINATION: XR CHEST CLINICAL INFORMATION: Hypoxia COMPARISON: None TECHNIQUE: 2 views of the chest were obtained. FINDINGS: Lungs grossly clear given portable AP lordotic technique. No pleural effusions. Heart size normal with normal caliber pulmonary vessels. There is degenerative change in both shoulder joints. XR/XR chest 2V IMPRESSION: No active disease.
--- NOTE | ~2021-11-17 | CT_ITS ---
EXAMINATION: CT ABDOMEN AND PELVIS WITH CONTRAST CLINICAL INFORMATION: Left lower quadrant pain and tenderness COMPARISON: Previous dated 11/01/2020 TECHNIQUE: Multidetector volumetric images were obtained from the superior aspect of the liver through the pubic symphysis following administration 85 mL of Omnipaque 350 intravenous contrast. Sagittal and coronal reformatted images were obtained on the technologist's workstation. Oral contrast: No This CT examination was performed using dose optimization techniques as appropriate, variously including the following: *Automated exposure control *Adjustment of mA and/or kV according to patient size (this includes techniques or standardized protocols for targeted exams where dose is matched to indication/reason for exam; i.e. extremities or head) *Use of iterative reconstruction technique DLP: 1075 mGy-cm FINDINGS: LUNG BASES: Bilateral basilar atelectasis LIVER, GALLBLADDER, AND BILIARY TREE: The liver is normal in size, shape, and attenuation. No focal hepatic lesion or biliary ductal dilatation is present. The gallbladder is unremarkable with no evidence of radiopaque gallstones, gallbladder wall thickening, or obvious pericholecystic inflammatory changes. PANCREAS: Unremarkable. SPLEEN: Unremarkable. ADRENAL GLANDS: Unremarkable. KIDNEYS AND URETERS: The kidneys are normal in size, shape, and attenuation. No hydronephrosis, hydroureter, or calculi seen. No perinephric stranding. BLADDER: Unremarkable. GASTROINTESTINAL TRACT: Moderate rectosigmoid stool Diverticulosis. No evidence for diverticulitis. Nonobstructing bowel pattern. ABDOMINAL WALL: Once again infraumbilical nonobstructing small bowel containing hernia LYMPH NODES: Normal. VASCULAR: Unremarkable. PELVIC VISCERA: Prominent prostate OSSEOUS STRUCTURES: Unremarkable. CT/CT abdomen pelvis w IV con IMPRESSION: Once again moderate rectosigmoid stool. The bowel pattern however is nonobstructing. There is no free fluid. Diverticulosis but no evidence for diverticulitis. Fleischner guidelines were followed.
[2021-11-17 13:54] VITALS: BP 114/60; BP 138/72; PULSE 50; PULSE 68; RESP 16; TEMP 36.8; O2SAT 95; O2SAT 98; BMI 37.1
--- NOTE | 2021-11-17 14:13 | ECG_ITS ---
Test Reason : bradycardia Blood Pressure : / mmHG Vent. Rate : 046 BPM Atrial Rate : 000 BPM P-R Int : 000 ms QRS Dur : 078 ms QT Int : 454 ms P-R-T Axes : 000 -13 016 degrees QTc Int : 397 ms Sinus bradycardia RSR' or QR pattern in V1 suggests right ventricular conduction delay Abnormal ECG When compared with ECG of 01-NOV-2020 19:18, Vent. rate has decreased BY 32 BPM Referred By: Tereza Mccarty Electronically Signed By:CORTEZ STEVENS MD
--- NOTE | 2021-11-17 14:15 | ED.GENADULT ---
HPI - General Adult General Chief complaint: General Medical <Tereza MccartyMAURA - Last Filed: 11/17/21 17:57> Stated complaint: GENERAL SICKNESS <Tereza MccartyMAURA - Last Filed: 11/17/21 17:57> Time Seen by Provider: 11/17/21 13:45 <Tereza Miller MAURA Mccarty - Last Filed: 11/17/21 17:57> Source: patient <Tereza MccartyMAURA - Last Filed: 11/17/21 17:57> Mode of arrival: EMS <Tereza MccartyMAURA - Last Filed: 11/17/21 17:57> Limitations: no limitations <Tereza MccartyMAURA - Last Filed: 11/17/21 17:57> History of Present Illness HPI narrative: Patient presents emergency department via EMS coming from [facility], he is a 56-year-old male. presenting today for evaluation of lower abdominal pain with concerns for constipation. Use a vague historian, is unclear exactly when this abdominal pain began. He states that he had surgery a few years ago, but is unable to provide much further detail in regards to this. Denies fevers, chills nausea many, chest pain, shortness of breath with pre, bloody or dark stool, pain with urination, urinary frequency, numbness or tingling of the extremities, generalized weakness. <Tereza FountainMAURA wilkins - Last Filed: 11/17/21 17:57> Related Data Home medications: Home Medications Medication Instructions Recorded Confirmed diazepam 2 mg tablet 2 mg PO BEDTIME 11/17/19 02/03/21 melatonin 1 mg tablet 1 mg PO BEDTIME 11/17/19 02/03/21 metoprolol succinate 50 mg 50 mg PO DAILY 11/17/19 02/03/21 tablet,extended release 24 hr pregabalin 300 mg capsule (Lyrica) 300 mg PO BID 11/17/19 02/03/21 acetaminophen 500 mg tablet 500 mg PO Q6H PRN FEVER/MILD PAIN 02/13/20 02/03/21 bisacodyl 10 mg rectal suppository 10 mg AR Q24H PRN Constipation 02/13/20 11/01/20 cholecalciferol (vitamin D3) 25 50 mcg PO DAILY 02/13/20 02/03/21 mcg (1,000 unit) tablet divalproex 500 mg tablet,delayed 500 mg PO BEDTIME 02/13/20 02/03/21 release ibuprofen 800 mg tablet 800 mg PO Q8H PRN FEVER/PAIN 02/13/20 02/13/20 lidocaine 5 % topical ointment 1 appl topical Q6H PRN Constipation 02/13/20 02/13/20 polyethylene glycol 3350 17 17 g PO DAILY 02/13/20 02/13/20 gram/dose oral powder polyethylene glycol 3350 17 17 g PO Q24H PRN Constipation 02/13/20 11/01/20 gram/dose oral powder pregabalin 100 mg capsule 100 mg PO BID 02/13/20 02/03/21 sennosides 8.6 mg-docusate sodium 1 tab-cap PO BEDTIME 02/13/20 02/13/20 50 mg capsule (Senna Plus) sennosides 8.6 mg-docusate sodium 1 tab-cap PO Q24H PRN Constipation 02/13/20 02/03/21 50 mg capsule (Senna Plus) witch monica 50 % topical pads 1 pad topical Q24H PRN Hemorrhoids 02/13/20 02/13/20 Previous Rx's Medication Instructions Recorded docusate sodium 100 mg capsule 100 mg PO BID #20 caps 11/17/21 (Colace) polyethylene glycol 3350 17 17 g PO BID PRN constipation #238 11/17/21 gram/dose oral powder (Miralax) grams sennosides 8.6 mg tablet (senna) 8.6 mg PO BEDTIME #14 tabs 11/17/21 <Tereza Mccarty CNP - Last Filed: 11/17/21 17:57> Allergies/adverse reactions: Allergies Allergy/AdvReac Type Severity Reaction Status Date / Time aripiprazole [From ABILIFY] Allergy Unknown UNKNOWN Verified 11/01/20 19:40 droperidol [From INAPSINE] Allergy Unknown UNKNOWN Verified 11/01/20 19:40 haloperidol [From HALDOL] Allergy Unknown UNKNOWN Verified 11/01/20 19:40 prochlorperazine Allergy Unknown UNKNOWN Verified 11/01/20 19:40 [From COMPAZINE] promethazine [From PHENERGAN] Allergy Unknown UNKNOWN Verified 11/01/20 19:40 sulfamethoxazole Allergy Unknown UNKNOWN Verified 11/01/20 19:40 [From BACTRIM] trimethoprim [From BACTRIM] Allergy Unknown UNKNOWN Verified 11/01/20 19:40 <Tereza Mccarty CNP - Last Filed: 11/17/21 17:57> Review of Systems Review of Systems: Constitutional : No Weight loss, No Fever, No Chills ENT/Mouth :? No sore throat, No Rhinorrhea Eyes: No Swelling, No Redness Cardiovascular : No Chest Pain, No SOB, No Edema Respiratory : No Cough, No Sputum, No Wheezing Gastrointestinal : no Nausea, no Vomiting, No Diarrhea, positive abdominal pain, No Hematochezia, No Melena Genitourinary : No Dysuria, No Urinary Frequency, No Hematuria, No Urgency? Musculoskeletal : No joint pain, No Myalgias, No Joint Swelling Skin : No Skin Lesions, No rash Neuro : No Weakness, No Numbness, No Dizziness, No Headache Psych : No Anxiety/Panic, No Depression <Tereza Mccarty CNP - Last Filed: 11/17/21 17:57> Yes all other systems are reviewed and are negative <Tereza Mccarty CNP - Last Filed: 11/17/21 17:57> [facility] Past Medical History Attestation statement: The following information was validated with the patient. <Tereza Mccarty CNP - Last Filed: 11/17/21 17:57> Source: old records reviewed <Tereza Mccarty CNP - Last Filed: 11/17/21 17:57> Medical History: Medical History Bilateral cataracts Cognitive impairment Deformity of left hand Depression Diverticular disease Epilepsy Flexion contractures Generalized anxiety disorder History of GI bleed History of hemodialysis Hx of deep venous thrombosis Hypertension Major depressive disorder Mild cognitive impairment Neuroleptic malignant syndrome OCD (obsessive compulsive disorder) Osteoarthritis Personal history of COVID-19 Rectal prolapse Seizure disorder Thrombocytopenia Urinary incontinence <Tereza Mccarty CNP - Last Filed: 11/17/21 17:57> Surgical History: Surgical History History of repair of rectocele Hx of appendectomy Hx of colonoscopy <Tereza Mccarty CNP - Last Filed: 11/17/21 17:57> Social History Social History: Social History Household Members: Caregiver Household Members Other:: Nursing facility Housing: Jail Do you presently have visiting nurse or other home services: No Unable to assess alcohol history related to: Unable to respond Alcohol intake: never Patient Tobacco Use Status: Never used Tobacco Second Hand Smoke Exposure: No Advance Directives: Yes Advance Directives on File: Yes Advance Directives Date on File: 11/21/19 service: No Current occupational status: disabled <Tereza Mccarty CNP - Last Filed: 11/17/21 17:57> Physical Exam ED Vital Signs: Vital Signs - 24 hr 11/17/21 13:54 11/17/21 18:39 Temperature 98.2 F 97.8 F Pulse Rate 50 Respiratory Rate 16 11 L Blood Pressure 114/60 110/56 L Pulse Oximetry 95 95 Oxygen Delivery Method Room Air Room Air BMI result Body Mass Index 37.1 <Tereza Mccarty CNP - Last Filed: 11/17/21 17:57> Vital Signs - 24 hr 11/17/21 13:54 11/17/21 18:39 Temperature 98.2 F 97.8 F Pulse Rate 50 Respiratory Rate 16 11 L Blood Pressure 114/60 110/56 L Pulse Oximetry 95 95 Oxygen Delivery Method Room Air Room Air BMI result Body Mass Index 37.1 <RADHA Nicole - Last Filed: 11/17/21 18:57> Appearance: Alert.?Oriented to person, place and time. No acute distress.?Normal affect. Eyes: Pupils equal, round and reactive to light.? ENT: Pharynx normal.?? Neck: Normal inspection.? Neck supple.?? CVS: Heart sounds normal. Normal heart rate and rhythm.? Pulses normal.?? Respiratory: No respiratory distress.? Lung sounds clear to auscultation bilaterally, diminished at the bases?? Abdomen: Soft a right lower quadrant and left lower quadrant tenderness upon palpation. Normoactive bowel sounds. No pulsatile mass.?? Skin: Skin warm and dry.? Normal skin color.? . Extremities: No lower extremity edema.? Neuro: Moves all extremities spontaneously. Sensation intact bilaterally.. No focal neuro deficits. Ambulates with normal steady gait. <Tereza Mccarty CNP - Last Filed: 11/17/21 17:57> Course Course Course Narrative: patient is a 56-year-old male with a past medical history of epilepsy, anxiety, depression, hypertension, mild cognitive impairment, GI bleeding, diverticular disease, appendectomy, rectal prolapse, pneumonia who is presenting to emergency department for evaluation of abdominal pain. He is overall well-appearing, no apparent respiratory distress. At the time of examination O2 saturation noted to be as low as 92% to 95% on room air, denies any shortness of breath or cough, lung sounds are diminished bilaterally, will obtain chest x-ray to exclude infiltrate, consolidation, pulmonary congestion. Patient noted to be bradycardic with heart rate in the 40s, chest pain, will obtain EKG for further evaluation of arrhythmia as well as troponin. prior EKG in February 2020 reveals a sinus bradycardia with rate in the 50s. Will obtain CBC to evaluate for leukocytosis/ anemia, CMP and lipase to evaluate for abnormal electrolytes /abnormal renal function/ abnormal hepatic/biliary function, and Urinalysis. <Tereza Mccarty CNP - Last Filed: 11/17/21 17:57> Reevaluation(s) Reevaluation #1: Troponin <3.5, EKG reveals a sinus bradycardia which is consistent with prior EKGs upon comparison, The rate is slightly lower. Patient without complaints of dizziness, lightheadedness, weakness. CBC reveals leukopenia with WBC at 3.6 and thrombocytopenia at 91 which appears consistent with prior labs obtained in 2019. CMP is overall unremarkable. urinalysis without evidence infection or hematuria. Pending CT of the abdomen at this time. <Tereza Mccarty CNP - Last Filed: 11/17/21 17:57> Time: 15:34 <Tereza Mccarty CNP - Last Filed: 11/17/21 17:57> Reevaluation #2: CT of the abdomen and pelvis are pending at this time. Delay in obtaining due to multiple critical patient's ahead of patients scan. Patient signed out to Saroj GARCIA, pending CT of abdomen and pelvis. <Tereza Mccarty CNP - Last Filed: 11/17/21 17:57> Time: 17:56 <Tereza Mccarty CNP - Last Filed: 11/17/21 17:57> Reevaluation #3: Spoke to Dr. Dan, discuss normal CT scan results with him, patient will be sent home on a bowel regimen. At this time I feel comfortable with plan Dr. Dan aware of plan. Will set up transportation back to [facility]. <RADHA Nicole - Last Filed: 11/17/21 18:57> Time: 18:56 <RADHA Nicole - Last Filed: 11/17/21 18:57> Medical Decision Making Medical Records Medical records reviewed: Yes I reviewed the patient's medical records. <Tereza Mccarty CNP - Last Filed: 11/17/21 17:57> Lab Data Lab results reviewed: Yes I reviewed the patient's lab results. <Tereza Mccarty CNP - Last Filed: 11/17/21 17:57> Result diagrams: : 11/17/21 14:23 11/17/21 14:55 <Tereza Mccarty CNP - Last Filed: 11/17/21 17:57> Labs: Lab Results 11/17/21 11/17/21 11/17/21 Range/Units 14:23 14:23 14:23 WBC 3.6 L (4.8-10.8) X10*3/uL RBC 5.11 (4.60-5.80) X10*6/uL Hgb 15.8 (14.0-18.0) g/dl Hct 46.6 (42.0-52.0) % MCV 91.2 (80.0-98.0) fL MCH 30.9 (27.0-33.0) pg MCHC 33.9 (31.0-36.0) g/dl RDW 13.6 (11.0-16.0) % Plt Count 91 L (160-400) X10*3/uL MPV 11.2 (9.4-12.4) fL Immature Gran % (Auto) 0.0 (0.0-0.4) % Neut % (Auto) 47.8 (45-73) % Lymph % (Auto) 37.2 (20-40) % [place] % (Auto) 10.7 (2-11) % Eos % (Auto) 3.7 (0-4) % Baso % (Auto) 0.6 (0-2) % Lymph # (Auto) 1.3 (1.2-4.9) X10*3/uL [place] # (Auto) 0.4 (0.1-1.2) X10*3/uL Eos # (Auto) 0.1 (0.0-0.4) X10*3/uL Baso # (Auto) 0.0 (0.0-0.2) X10*3/uL Abs Immat Gran (auto) 0.00 (0.00-0.03) X10*3/uL Absolute Neuts (auto) 1.7 L (2.0-8.3) x10*3/uL Absolute Nucleated RBC 0.000 (0.0-0.012) X10*3/uL Nucleated RBC % (auto) 0.0 (0.0-0.2) /100WBC Sodium (135-145) mmol/L Potassium (3.3-5.1) mmol/L Chloride (96-108) mmol/L Carbon Dioxide (22-29) mmol/L Anion Gap (12-20) BUN (9-16) mg/dL Creatinine (0.5-1.4) mg/dL Estim Creat Clear Calc Estimated GFR Random Glucose (60-115) mg/dL Calcium (8.4-10.2) mg/dL Magnesium (1.6-2.6) mg/dL Total Bilirubin (0.0-1.0) mg/dL AST (5-37) U/L ALT (0-40) U/L Alkaline Phosphatase (39-117) U/L Troponin I High Sens < 3.5 (<3.5-35.0) ng/L Total Protein (6.5-8.0) g/dL Albumin (3.5-5.0) g/dL Lipase (8-78) U/L Urine Color Urine Appearance Urine pH (5.0-9.0) Ur Specific Walker (1.005-1.025) Urine Protein (Neg-Trace) mg/dL Urine Glucose (UA) (Negative) mg/dL Urine Ketones (Negative) mg/dL Urine Blood (Negative) Urine Nitrite (Negative) Ur Leukocyte Esterase (Negative) COVID-19 (DIEGO) Negative (Negative) COVID-19 Clin Com See Note 11/17/21 11/17/21 Range/Units 14:55 15:15 WBC (4.8-10.8) X10*3/uL RBC (4.60-5.80) X10*6/uL Hgb (14.0-18.0) g/dl Hct (42.0-52.0) % MCV (80.0-98.0) fL MCH (27.0-33.0) pg MCHC (31.0-36.0) g/dl RDW (11.0-16.0) % Plt Count (160-400) X10*3/uL MPV (9.4-12.4) fL Immature Gran % (Auto) (0.0-0.4) % Neut % (Auto) (45-73) % Lymph % (Auto) (20-40) % [place] % (Auto) (2-11) % Eos % (Auto) (0-4) % Baso % (Auto) (0-2) % Lymph # (Auto) (1.2-4.9) X10*3/uL [place] # (Auto) (0.1-1.2) X10*3/uL Eos # (Auto) (0.0-0.4) X10*3/uL Baso # (Auto) (0.0-0.2) X10*3/uL Abs Immat Gran (auto) (0.00-0.03) X10*3/uL Absolute Neuts (auto) (2.0-8.3) x10*3/uL Absolute Nucleated RBC (0.0-0.012) X10*3/uL Nucleated RBC % (auto) (0.0-0.2) /100WBC Sodium 143 (135-145) mmol/L Potassium 4.4 (3.3-5.1) mmol/L Chloride 104 (96-108) mmol/L Carbon Dioxide 30 H (22-29) mmol/L Anion Gap 13 (12-20) BUN 13 (9-16) mg/dL Creatinine 0.80 (0.5-1.4) mg/dL Estim Creat Clear Calc 116.6 Estimated GFR > 60 Random Glucose 96 (60-115) mg/dL Calcium 8.7 D (8.4-10.2) mg/dL Magnesium 2.1 (1.6-2.6) mg/dL Total Bilirubin 0.4 (0.0-1.0) mg/dL AST 14 (5-37) U/L ALT 11 (0-40) U/L Alkaline Phosphatase 52 D (39-117) U/L Troponin I High Sens (<3.5-35.0) ng/L Total Protein 6.5 (6.5-8.0) g/dL Albumin 3.8 (3.5-5.0) g/dL Lipase 6 L (8-78) U/L Urine Color Yellow Urine Appearance Clear Urine pH 7.5 (5.0-9.0) Ur Specific Walker 1.015 (1.005-1.025) Urine Protein Negative (Neg-Trace) mg/dL Urine Glucose (UA) Negative (Negative) mg/dL Urine Ketones Trace (Negative) mg/dL Urine Blood Negative (Negative) Urine Nitrite Negative (Negative) Ur Leukocyte Esterase Negative (Negative) COVID-19 (DIEGO) (Negative) COVID-19 Clin Com <Tereza Mccatry, ENGINEERING AIDE - Last Filed: 11/17/21 17:57> Lab Results 11/17/21 11/17/21 11/17/21 Range/Units 14:23 14:23 14:23 WBC 3.6 L (4.8-10.8) X10*3/uL RBC 5.11 (4.60-5.80) X10*6/uL Hgb 15.8 (14.0-18.0) g/dl Hct 46.6 (42.0-52.0) % MCV 91.2 (80.0-98.0) fL MCH 30.9 (27.0-33.0) pg MCHC 33.9 (31.0-36.0) g/dl RDW 13.6 (11.0-16.0) % Plt Count 91 L (160-400) X10*3/uL MPV 11.2 (9.4-12.4) fL Immature Gran % (Auto) 0.0 (0.0-0.4) % Neut % (Auto) 47.8 (45-73) % Lymph % (Auto) 37.2 (20-40) % [place] % (Auto) 10.7 (2-11) % Eos % (Auto) 3.7 (0-4) % Baso % (Auto) 0.6 (0-2) % Lymph # (Auto) 1.3 (1.2-4.9) X10*3/uL [place] # (Auto) 0.4 (0.1-1.2) X10*3/uL Eos # (Auto) 0.1 (0.0-0.4) X10*3/uL Baso # (Auto) 0.0 (0.0-0.2) X10*3/uL Abs Immat Gran (auto) 0.00 (0.00-0.03) X10*3/uL Absolute Neuts (auto) 1.7 L (2.0-8.3) x10*3/uL Absolute Nucleated RBC 0.000 (0.0-0.012) X10*3/uL Nucleated RBC % (auto) 0.0 (0.0-0.2) /100WBC Sodium (135-145) mmol/L Potassium (3.3-5.1) mmol/L Chloride (96-108) mmol/L Carbon Dioxide (22-29) mmol/L Anion Gap (12-20) BUN (9-16) mg/dL Creatinine (0.5-1.4) mg/dL Estim Creat Clear Calc Estimated GFR Random Glucose (60-115) mg/dL Calcium (8.4-10.2) mg/dL Magnesium (1.6-2.6) mg/dL Total Bilirubin (0.0-1.0) mg/dL AST (5-37) U/L ALT (0-40) U/L Alkaline Phosphatase (39-117) U/L Troponin I High Sens < 3.5 (<3.5-35.0) ng/L Total Protein (6.5-8.0) g/dL Albumin (3.5-5.0) g/dL Lipase (8-78) U/L Urine Color Urine Appearance Urine pH (5.0-9.0) Ur Specific Walker (1.005-1.025) Urine Protein (Neg-Trace) mg/dL Urine Glucose (UA) (Negative) mg/dL Urine Ketones (Negative) mg/dL Urine Blood (Negative) Urine Nitrite (Negative) Ur Leukocyte Esterase (Negative) COVID-19 (DIEGO) Negative (Negative) COVID-19 Clin Com See Note 11/17/21 11/17/21 Range/Units 14:55 15:15 WBC (4.8-10.8) X10*3/uL RBC (4.60-5.80) X10*6/uL Hgb (14.0-18.0) g/dl Hct (42.0-52.0) % MCV (80.0-98.0) fL MCH (27.0-33.0) pg MCHC (31.0-36.0) g/dl RDW (11.0-16.0) % Plt Count (160-400) X10*3/uL MPV (9.4-12.4) fL Immature Gran % (Auto) (0.0-0.4) % Neut % (Auto) (45-73) % Lymph % (Auto) (20-40) % [place] % (Auto) (2-11) % Eos % (Auto) (0-4) % Baso % (Auto) (0-2) % Lymph # (Auto) (1.2-4.9) X10*3/uL [place] # (Auto) (0.1-1.2) X10*3/uL Eos # (Auto) (0.0-0.4) X10*3/uL Baso # (Auto) (0.0-0.2) X10*3/uL Abs Immat Gran (auto) (0.00-0.03) X10*3/uL Absolute Neuts (auto) (2.0-8.3) x10*3/uL Absolute Nucleated RBC (0.0-0.012) X10*3/uL Nucleated RBC % (auto) (0.0-0.2) /100WBC Sodium 143 (135-145) mmol/L Potassium 4.4 (3.3-5.1) mmol/L Chloride 104 (96-108) mmol/L Carbon Dioxide 30 H (22-29) mmol/L Anion Gap 13 (12-20) BUN 13 (9-16) mg/dL Creatinine 0.80 (0.5-1.4) mg/dL Estim Creat Clear Calc 116.6 Estimated GFR > 60 Random Glucose 96 (60-115) mg/dL Calcium 8.7 D (8.4-10.2) mg/dL Magnesium 2.1 (1.6-2.6) mg/dL Total Bilirubin 0.4 (0.0-1.0) mg/dL AST 14 (5-37) U/L ALT 11 (0-40) U/L Alkaline Phosphatase 52 D (39-117) U/L Troponin I High Sens (<3.5-35.0) ng/L Total Protein 6.5 (6.5-8.0) g/dL Albumin 3.8 (3.5-5.0) g/dL Lipase 6 L (8-78) U/L Urine Color Yellow Urine Appearance Clear Urine pH 7.5 (5.0-9.0) Ur Specific Walker 1.015 (1.005-1.025) Urine Protein Negative (Neg-Trace) mg/dL Urine Glucose (UA) Negative (Negative) mg/dL Urine Ketones Trace (Negative) mg/dL Urine Blood Negative (Negative) Urine Nitrite Negative (Negative) Ur Leukocyte Esterase Negative (Negative) COVID-19 (DIEGO) (Negative) COVID-19 Clin Com <RADHA Nicole - Last Filed: 11/17/21 18:57> ECG Data Attestation: I personally reviewed and interpreted this ECG as follows: <Tereza Mccarty CNP - Last Filed: 11/17/21 17:57> Prior ECG tracings: available for review <Tereza Mccarty CNP - Last Filed: 11/17/21 17:57> Interpretation: Rate: 45 Rhythm:? sinus bradycardia [place]:? Maria Alejandra Normal P waves.? Normal [place].?? Normal QRS complex.?? ST T wave :?? no ST elevation, no ST depression, no T-wave inversion qTC: 395 prior studies:? February 2020 The study has been interpreted contemporaneously by me. <Tereza Mccarty CNP - Last Filed: 11/17/21 17:57> Discharge Plan Discharge Clinical Impression: Abdominal pain, Constipation <Terezatom Mccarty CNP - Last Filed: 11/17/21 17:57> Patient Disposition: Home, Self-Care <Tereza Miller MAURA Mccarty - Last Filed: 11/17/21 17:57> Instructions: Constipation (ED), Abdominal Pain (ED) <Tereza Mccarty CNP - Last Filed: 11/17/21 17:57> Additional Instructions: Take your medications as prescribed. If you were prescribed antibiotics today, it is important that you take your medication to their entirety, do not skip any doses, do not finish them early. Follow-up with your primary care provider this week. Return to the emergency department with new or worsening symptoms. Such as fevers, chills, chest pain, shortness of breath, nausea, vomiting, dizziness, headache, vision changes, lethargy In case of emergency call 911 CT/CT abdomen pelvis w IV con IMPRESSION: Once again moderate rectosigmoid stool. The bowel pattern however is nonobstructing. There is no free fluid. Diverticulosis but no evidence for diverticulitis.? ? Fleischner guidelines were followed. XR/XR chest 2V IMPRESSION: No active disease. <Tereza Mccarty CNP - Last Filed: 11/17/21 17:57> Prescriptions: New sennosides [senna] 8.6 mg tablet 8.6 mg PO BEDTIME Qty: 14 0RF docusate sodium [Colace] 100 mg capsule 100 mg PO BID Qty: 20 0RF polyethylene glycol 3350 [Miralax] 17 gram/dose powder 17 g PO BID PRN (Reason: constipation) Qty: 238 0RF No Action metoprolol succinate 50 mg Tablet Extended Release 24 Hr 50 mg PO DAILY diazepam 2 mg Tablet 2 mg PO BEDTIME melatonin 1 mg Tablet 1 mg PO BEDTIME pregabalin [Lyrica] 300 mg Capsule 300 mg PO BID Rx Instructions: GIVE WITH 100 MG CAPSULE TO EQUAL 400 MG BID ibuprofen 800 mg Tablet 800 mg PO Q8H PRN (Reason: FEVER/PAIN) divalproex 500 mg Tablet,Delayed Release (Dr/Ec) 500 mg PO BEDTIME acetaminophen 500 mg Tablet 500 mg PO Q6H PRN (Reason: FEVER/MILD PAIN) bisacodyl 10 mg Suppository 10 mg AR Q24H PRN (Reason: Constipation) polyethylene glycol 3350 17 gram/dose Powder 17 g PO DAILY polyethylene glycol 3350 17 gram/dose Powder 17 g PO Q24H PRN (Reason: Constipation) pregabalin 100 mg Capsule 100 mg PO BID Rx Instructions: GIVE WITH 300 MG CAPSULE TO EQUAL 400 MG BID witch monica 50 % Pads, Medicated 1 pad TOPICAL Q24H PRN (Reason: Hemorrhoids) lidocaine 5 % Ointment 1 appl TOPICAL Q6H PRN (Reason: Constipation) Rx Instructions: APPLY A SMALL PEA SIZE AMOUNT TO ANAL AREA Senna Plus 8.6-50 mg Capsule 1 tab-cap PO Q24H PRN (Reason: Constipation) Senna Plus 8.6-50 mg Capsule 1 tab-cap PO BEDTIME cholecalciferol (vitamin D3) 25 mcg (1,000 unit) Tablet 50 mcg PO DAILY <Tereza Mccarty CNP - Last Filed: 11/17/21 17:57> Referrals: Jodi Campos LPN [Emergency Nurse] - 2 days <Tereza Mccarty CNP - Last Filed: 11/17/21 17:57>
[2021-11-17 14:29] LABS: MANUAL DIFF FLAG NO
[2021-11-17 14:33] LABS: Basophils Percent Auto 0.6 % (0-2); Eosinophils Absolute Auto 0.1 X10*3/uL (0.0-0.4); Eosinophils Percent Auto 3.7 % (0-4); Hematocrit 46.6 % (42.0-52.0); Hemoglobin 15.8 g/dl (14.0-18.0); Lymphocytes Absolute Auto 1.3 X10*3/uL (1.2-4.9); Lymphocytes Percent Auto 37.2 % (20-40); Mean Corpuscular HGB Conc 33.9 g/dl (31.0-36.0); Mean Corpuscular Hemoglobin 30.9 pg (27.0-33.0); Mean Corpuscular Volume 91.2 fL (80.0-98.0); Mean Platelet Volume 11.2 fL (9.4-12.4); Monocytes Absolute Auto 0.4 X10*3/uL (0.1-1.2); Monocytes Percent Auto 10.7 % (2-11); Neutrophils Absolute Auto 1.7 x10*3/uL (2.0-8.3); Neutrophils Percent Auto 47.8 % (45-73); Red Blood Count 5.11 X10*6/uL (4.60-5.80); Red Cell Distribution Width 13.6 % (11.0-16.0); White Blood Count 3.6 X10*3/uL (4.8-10.8)
[2021-11-17 14:34] LABS: Platelet Count 91 X10*3/uL (160-400)
[2021-11-17 14:50] LABS: Troponin-I High Sensitivity < 3.5 ng/L (<3.5-35.0)
--- NOTE | 2021-11-17 14:52 | ECG_ITS ---
Test Reason : bradycardia Blood Pressure : / mmHG Vent. Rate : 045 BPM Atrial Rate : 045 BPM P-R Int : 190 ms QRS Dur : 090 ms QT Int : 456 ms P-R-T Axes : 057 -10 027 degrees QTc Int : 394 ms Sinus bradycardia Low voltage QRS Borderline ECG When compared with ECG of 17-NOV-2021 14:30, No significant changes seen Referred By: Tereza Mccarty Electronically Signed By:CORTEZ STEVENS MD
[2021-11-17 14:53] LABS: COVID-19 Test Negative (Negative); IDNOW Serial# 16C4AD1C
[2021-11-17 15:18] LABS: Alanine Aminotransferase 11 U/L (0-40); Albumin Level 3.8 g/dL (3.5-5.0); Alkaline Phosphatase 52 U/L (39-117); Anion Gap 13 (12-20); Aspartate Amino Transferase 14 U/L (5-37); Bilirubin Total 0.4 mg/dL (0.0-1.0); Blood Urea Nitrogen 13 mg/dL (9-16); Calcium 8.7 mg/dL (8.4-10.2); Carbon Dioxide 30 mmol/L (22-29); Chloride 104 mmol/L (96-108); Creatinine Clr Calc Pharmacy 116.6; Estimated Glomerular Filt Rate > 60; Glucose Random 96 mg/dL (60-115); Lipase 6 U/L (8-78); Magnesium 2.1 mg/dL (1.6-2.6); Potassium 4.4 mmol/L (3.3-5.1); Sodium 143 mmol/L (135-145); Total Protein 6.5 g/dL (6.5-8.0)
[2021-11-17 15:26] LABS: Appearance Urine Clear; Color Urine Yellow; Glucose Urine UA Negative (Negative); Leukocyte Esterase Urine Negative (Negative); Nitrite Urine Negative (Negative); PH 7.5 (5.0-9.0); Specific Gravity - Urine 1.015 (1.005-1.025); Urine Blood Negative (Negative); Urine Ketones Trace mg/dL (Negative); Urine Protein Negative (Neg-Trace)
--- OUTSIDE RECORDS SUMMARY | 2021-11-17 15:31 | XMS_ITS ---
:1965 Author Organization [facility] Address [address] [place] [address] Care Team Providers Name Role Phone Guy Lepe Pascual Unavailable Unavailable PROBLEMS Type Condition ICD9-CM [id number] Onset Condition SNOMED Cod e Code Code Dates Status Problem Colon cancer Z12.11 Active 8707270 04 screening Problem FH: colon cancer Z80.0 Active 429 991134 Problem care home Z79.1 Active [id number] (current) use of non-steroidal anti-inflammatori es (NSAID) Problem Encounter for Z01.818 Active 620680 001 other preprocedural examination ALLERGIES Substance Reaction Event Type Date Status Abilify Unknown Drug Allergy Jan, Active Inapsine Unknown Drug Allergy Jan, Active Compazine Unknown Drug Allergy Jan, Active Haldol Unknown Drug Allergy Jan, Active Bactrim Unknown Drug Allergy Jan, Active Phenergan Unknown Drug Allergy Jan, Active ENCOUNTERS Encounter Location Date Diagnosis [address] Feb, [facility] [address] [place] [address] [facility] Outpatient [address] [facility] Feb, Colon cancer sc [place] [id number] Z12.11 and Family history of colon cancer Z80.[address] Jan, 2021 FH: colo n cancer Z80.0 ; [facility] [address] [place], [place] Encounter for other [id number] preprocedural ex amination Z01.818 ; Colon cancer screening Z12.11 and bed bug exterminator (current) u se of non-steroidal anti-inflammator ies (NSAID) Z79.1 IMMUNIZATIONS Vaccine Route Administration Date Status Influenza Unknown Dec 06, 2020 Administered SOCIAL HISTORY Qualifiers Date Never Smoker REASON FOR REFERRAL FUNCTIONAL STATUS PLAN OF CARE VITAL SIGNS Weight 246 lbs 2021-01-13 Height 66.5 in 2021-01-13 BMI 39.11 kg/m2 2021-01-13 Temperature 97.3 degrees Fahrenheit 2021-01-13 Blood pressure systolic 000 mm Hg 2021-01-13 Blood pressure diastolic 00 mm Hg 2021-01-13 MEDICATIONS Medication Instructions Dosage Frequency Start End Duration Statu s Date Date Depakote ER 500 Orally Once a 1 tablet 24h 30 day(s) Active MG day MiraLax (colon Orally begin at mixed with Jan, day Active prep) 17 GM/SCOOP 5:00 p.m. the Gatorade or 2020 day before the Crystal procedure Light Senna-Docusate Orally Once a 1 tablet in 24h 30 day( s) Active Sodium 8.6-50 MG day the evening as needed Fleet Enema 7-19 as directed Act charlie GM/118ML Lyrica 300 MG Orally twice a 1 capsule 12h A ctive day in the evening 1 to 3 hours before bedtime Acetaminophen 500 Orally every 6 1 capsule 6h Active MG hrs as needed diazePAM 2 MG Orally Once a 1 tablet as 24h Active day needed Metoprolol Orally Once a 1 tablet 24h 30 day(s) Acti ve Succinate ER 50 day MG Vitamin D3 25 MCG Orally Once a 1 capsule 24h 30 day (s) Active (1000 UT) day Pregabalin 100 MG Orally Once a 1 capsule 24h Active day carBAMazepine ER Orally Twice a 1 tablet 12h 30 day( s) Active 400 MG day Polyethylene as directed Active Glycol 3350 - Biscolax Active Melatonin Orally Once a 1 tablet at 24h 30 day(s) Ac tive Childrens 1 MG day bedtime as needed Ibuprofen 200 MG Orally Three 1 tablet 8h A ctive times a day with food or milk as needed PROCEDURES Procedure Date Ordered Result Body Site PATIENT NOT ELIG D/T ACTIVE DX HTN Jan 13, 2021 COLOREC CANCR SCR; COLNSCPY HI RISK Feb 08, 2021 Pt scrn tbco id as non user Jan 13, 2021 DOC MEDS VERIFIED W/PT OR RE Jan 13, 2021 INTRVL 3+YRS PTS CLNSCP DOCD Feb 08, 2021 LESION REMOVAL COLONOSCOPY Feb 08, 2021 COLORECTAL CA SCREEN DOC REV Jan 13, 2021 COLONOSCOPY AND BIOPSY Feb 08, 2021 RESULTS Name Result Date Reference Range Pathology 2021-02-08 REASON FOR VISIT pathology, screening, Patient presents today for a SCREENING COLON Insurance Providers [facility] Member Patient Patient Patient Patient Patient Subscriber Subscriber Subscriber Group Insurance Plan Plan Plan Plan ID Relationship Address Phone Name Date of ID Name Date of No Type Insurance Insurance Insurance Coverage to Subscriber Address Phone Name Dates CARE ONE [phone] CARE ONE [facility] [id number] [place] [address] [place] [address]
[2021-11-17] MEDS: iohexoL 350 MG/ML 100 ML INFUS..BTL IV (15:45)
[2021-11-17 18:39] VITALS: BP 110/56; RESP 11; TEMP 36.6; O2SAT 95
== END 2021-11-17 21:47 | disposition home or self-care (01) ==
PROVIDERS: Nurse Practitioner Family; Emergency Provider Student in an Organized Health Care Education/Training Program; PCP Hospitalist
DX: R10.30 Lower abdominal pain, unspecified (principal); K59.00 Constipation, unspecified; R00.1 Bradycardia, unspecified; I10 Essential (primary) hypertension; Z20.822 Contact with and (suspected) exposure to COVID-19
CPT/HCPCS: 71046; 74177; 80053; 81003; 83690; 83735; 84484; 85025; 87635; 93005; 99284; Q9967

== ENCOUNTER 2021-11-20 09:47 | Emergency (ER) | payer MEDICAID, SELFPAY ==
--- NOTE | ~2021-11-20 | CT_ITS ---
EXAMINATION: CT ABDOMEN AND PELVIS WITHOUT CONTRAST CLINICAL INFORMATION: Abdominal pain COMPARISON: CT abdomen pelvis 11/17/2021 CT abdomen pelvis 11/17/2019 TECHNIQUE: Multidetector volumetric imaging was performed from the superior aspect of the liver through the pubic symphysis. Sagittal and coronal reformatted images were obtained on the technologist's workstation. This CT examination was performed using dose optimization techniques as appropriate, variously including the following: *Automated exposure control *Adjustment of mA and/or kV according to patient size (this includes techniques or standardized protocols for targeted exams where dose is matched to indication/reason for exam; i.e. extremities or head) *Use of iterative reconstruction technique DLP: 947 mGy-cm FINDINGS: LUNG BASES: Unremarkable. ABDOMINAL AND PELVIC WALL: Mild trace symmetric gynecomastia. Midline ventral hernia with a 4.8 cm neck containing loops of nonobstructed small bowel. LIVER AND BILIARY TREE: Unremarkable. GALLBLADDER: Unremarkable. PANCREAS: Unremarkable. SPLEEN: Unremarkable. ADRENAL GLANDS: Unremarkable. KIDNEYS AND URETERS: Unremarkable. GASTROINTESTINAL TRACT: Duodenal diverticulum. Circumferential rectal wall thickening which can be seen in the setting of proctitis. Colonic diverticulosis without evidence of diverticulitis. No findings to suggest appendicitis. VASCULAR: Unremarkable. LYMPH NODES/PERITONEUM: Tiny nonspecific 5 mm retroperitoneal nodule posterior to the right kidney unchanged from 2020. FREE FLUID: None. BLADDER: Unremarkable. PELVIC VISCERA: Unremarkable. OSSEOUS STRUCTURES: Unremarkable. CT/CT abdomen pelvis wo IV con IMPRESSION: Circumferential rectal wall thickening which can be seen in the setting of proctitis. Midline ventral hernia with a 4.8 cm neck containing loops of nonobstructed small bowel.
[2021-11-20 10:18] VITALS: BP 109/53; PULSE 57; RESP 16; TEMP 36.9; O2SAT 95; BMI 37.5
--- NOTE | 2021-11-20 10:34 | ED_ITS ---
HPI - General Adult General Chief complaint: General Medical Stated complaint: CONSTIPATION Time Seen by Provider: 11/20/21 10:20 Source: patient, family (Sister and healthcare proxy), EMS and old records reviewed Mode of arrival: EMS Limitations: no limitations History of Present Illness HPI narrative: 56-year-old male history of NMS syndrome, patient is a resident of [facility], patient return to the ED for evaluation of lower abdominal pain, had a small bowel movement 2 days ago (Sister think was small bowel movement with small diameter) Patient was seen and evaluated in the emergency department 3 days ago had workup done showed constipation, patient still symptomatic. Patient had a history of appendectomy, and rectal prolapse repair via anterior abdominal incision. Patient is a limited historian history was obtained sister and old records. Related Data Home Medications Medication Instructions Recorded Confirmed diazepam 2 mg tablet 2 mg PO BEDTIME 11/17/19 02/03/21 melatonin 1 mg tablet 1 mg PO BEDTIME 11/17/19 02/03/21 metoprolol succinate 50 mg 50 mg PO DAILY 11/17/19 02/03/21 tablet,extended release 24 hr pregabalin 300 mg capsule (Lyrica) 300 mg PO BID 11/17/19 02/03/21 acetaminophen 500 mg tablet 500 mg PO Q6H PRN FEVER/MILD PAIN 02/13/20 02/03/21 bisacodyl 10 mg rectal suppository 10 mg MI Q24H PRN Constipation 02/13/20 11/01/20 cholecalciferol (vitamin D3) 25 50 mcg PO DAILY 02/13/20 02/03/21 mcg (1,000 unit) tablet divalproex 500 mg tablet,delayed 500 mg PO BEDTIME 02/13/20 02/03/21 release ibuprofen 800 mg tablet 800 mg PO Q8H PRN FEVER/PAIN 02/13/20 02/13/20 lidocaine 5 % topical ointment 1 appl topical Q6H PRN Constipation 02/13/20 02/13/20 polyethylene glycol 3350 17 17 g PO DAILY 02/13/20 02/13/20 gram/dose oral powder polyethylene glycol 3350 17 17 g PO Q24H PRN Constipation 02/13/20 11/01/20 gram/dose oral powder pregabalin 100 mg capsule 100 mg PO BID 02/13/20 02/03/21 sennosides 8.6 mg-docusate sodium 1 tab-cap PO BEDTIME 02/13/20 02/13/20 50 mg capsule (Senna Plus) sennosides 8.6 mg-docusate sodium 1 tab-cap PO Q24H PRN Constipation 02/13/20 02/03/21 50 mg capsule (Senna Plus) witch monica 50 % topical pads 1 pad topical Q24H PRN Hemorrhoids 02/13/20 02/13/20 Previous Rx's Medication Instructions Recorded docusate sodium 100 mg capsule 100 mg PO BID #20 caps 11/17/21 (Colace) polyethylene glycol 3350 17 17 g PO BID PRN constipation #238 11/17/21 gram/dose oral powder (Miralax) grams sennosides 8.6 mg tablet (senna) 8.6 mg PO BEDTIME #14 tabs 11/17/21 Allergies Allergy/AdvReac Type Severity Reaction Status Date / Time aripiprazole [From ABILIFY] Allergy Unknown UNKNOWN Verified 11/01/20 19:40 droperidol [From INAPSINE] Allergy Unknown UNKNOWN Verified 11/01/20 19:40 haloperidol [From HALDOL] Allergy Unknown UNKNOWN Verified 11/01/20 19:40 prochlorperazine Allergy Unknown UNKNOWN Verified 11/01/20 19:40 [From COMPAZINE] promethazine [From PHENERGAN] Allergy Unknown UNKNOWN Verified 11/01/20 19:40 sulfamethoxazole Allergy Unknown UNKNOWN Verified 11/01/20 19:40 [From BACTRIM] trimethoprim [From BACTRIM] Allergy Unknown UNKNOWN Verified 11/01/20 19:40 Review of Systems Review of Systems: Yes Unobtainable due to mental condition PMFSH Past Medical History Medical History Bilateral cataracts Cognitive impairment Deformity of left hand Depression Diverticular disease Epilepsy Flexion contractures Generalized anxiety disorder History of GI bleed History of hemodialysis Hx of deep venous thrombosis Hypertension Major depressive disorder Mild cognitive impairment Neuroleptic malignant syndrome OCD (obsessive compulsive disorder) Osteoarthritis Personal history of COVID-19 Rectal prolapse Seizure disorder Thrombocytopenia Urinary incontinence Surgical History History of repair of rectocele Hx of appendectomy Hx of colonoscopy Social History Social History Household Members: Caregiver Household Members Other:: Nursing facility Housing: Retirement Do you presently have visiting nurse or other home services: No Unable to assess alcohol history related to: Unable to respond Alcohol intake: never Patient Tobacco Use Status: Never used Tobacco Second Hand Smoke Exposure: No Advance Directives: Yes Advance Directives on File: Yes Advance Directives Date on File: 11/21/19 service: No Current occupational status: disabled Physical Exam ED Vital Signs: Vital Signs - 24 hr 11/20/21 10:18 11/20/21 12:10 Temperature 98.5 F 97.9 F Pulse Rate 57 46 L Respiratory Rate 16 16 Blood Pressure 109/53 L 108/55 L Pulse Oximetry 95 96 Oxygen Delivery Method Room Air Room Air BMI result Body Mass Index 37.5 Vital signs have been reviewed as appeared to be correct. Blood pressure normal. Heart rate normal. Respiration rate normal. Temperature normal. Oxygen saturation normal. Appearance: Alert. Oriented X3. No acute distress. Head: Normal external exam. Normocephalic. Atraumatic. No Valenzuela signs noted. No raccoon eyes noted Eyes: PERRLA. EOMI. Conjunctiva and sclera normal. Eyelids normal. ENT: TM's Normal. Pharynx normal. Uvula midline. Moist mucous membranes. No trismus noted. No drooling noted. No muffled voice noted. Neck: Normal inspection. Neck supple. FROM. No adenopathy. Thyroid Normal. No meningeal signs. No neck mass noted. CVS: Normal heart rate and rhythm. Heart sound normal. No murmurs noted. Pulses normal throughout. Respiratory: No respiratory distress. Painless inspiration. Breath sounds normal. No wheezes/rales/rhonchi noted. Chest nontender. No accessory muscle usage noted or decreased air movement noted. Abdomen: Soft and nontender. Bowel sounds normal in all 4 quadrants. No distention noted. No organomegaly noted. No visible injury noted. Rectal exam: No stool in the vault, no mass, no tenderness, no fluctuation. Back: No CVA tenderness. Full range of motion noted. Skin: Skin warm and dry. Normal skin color. Normal skin turgor. No rashes/lesions/lacerations noted. Extremities: No lower extremity edema. Extremities exhibit normal range of motion. Extremities nontender. Neuro: Oriented X 3. Cranial nerve exam: II-XII are grossly intact No motor deficit. No sensory deficit. Reflexes normal. Course Course Course Narrative: 56-year-old male from [facility] came in with his sister who is concern of bowel obstruction and bowel perforation, patient had unremarkable vital sign and unremarkable labs and CT of the abdomen and pelvis was not suspecting any acute findings except suspicion for proctitis which is not indicated clinically. CT s can showed noncomplicated and unchanged abdominal wall hernia. Patient had a recent a bowel movement 3 days ago, I recommended to the sister to continue with clear diet and drink plenty of fluid until he moved his bowel otherwise there is no indication for hospitalization or keeping now in the ED ri sking the patient for infection, and return with the patient if worsening of the symptoms or develops new symptoms. Medical Decision Making Lab Data Lab results reviewed: Yes I reviewed the patient's lab results. Result diagrams: 11/20/21 11:43 11/20/21 11:43 Labs: Lab Results 11/20/21 11/20/21 11/20/21 Range/Units 11:43 11:43 11:43 WBC 4.3 L (4.8-10.8) X10*3/uL RBC 4.58 L (4.60-5.80) X10*6/uL Hgb 13.7 L (14.0-18.0) g/dl Hct 42.0 (42.0-52.0) % MCV 91.7 (80.0-98.0) fL MCH 29.9 (27.0-33.0) pg MCHC 32.6 (31.0-36.0) g/dl RDW 13.8 (11.0-16.0) % Plt Count 90 L (160-400) X10*3/uL MPV 11.7 (9.4-12.4) fL Immature Gran % (Auto) 0.2 (0.0-0.4) % Neut % (Auto) 50.1 (45-73) % Lymph % (Auto) 30.6 (20-40) % [place] % (Auto) 16.0 H (2-11) % Eos % (Auto) 2.6 (0-4) % Baso % (Auto) 0.5 (0-2) % Lymph # (Auto) 1.3 (1.2-4.9) X10*3/uL [place] # (Auto) 0.7 (0.1-1.2) X10*3/uL Eos # (Auto) 0.1 (0.0-0.4) X10*3/uL Baso # (Auto) 0.0 (0.0-0.2) X10*3/uL Abs Immat Gran (auto) 0.01 (0.00-0.03) X10*3/uL Absolute Neuts (auto) 2.2 (2.0-8.3) x10*3/uL Absolute Nucleated RBC 0.000 (0.0-0.012) X10*3/uL Nucleated RBC % (auto) 0.0 (0.0-0.2) /100WBC Sodium 144 (135-145) mmol/L Potassium 4.6 (3.3-5.1) mmol/L Chloride 104 (96-108) mmol/L Carbon Dioxide 32 H (22-29) mmol/L Anion Gap 13 (12-20) BUN 15 (9-16) mg/dL Creatinine 0.81 (0.5-1.4) mg/dL Estim Creat Clear Calc 119.8 Estimated GFR > 60 Random Glucose 74 (60-115) mg/dL Calcium 8.7 (8.4-10.2) mg/dL Total Bilirubin 0.4 (0.0-1.0) mg/dL Direct Bilirubin 0.2 (0.0-0.5) mg/dL AST 11 (5-37) U/L ALT 10 (0-40) U/L Alkaline Phosphatase 51 (39-117) U/L Total Protein 6.2 L (6.5-8.0) g/dL Albumin 3.6 (3.5-5.0) g/dL Lipase 9 (8-78) U/L Urine Color Yellow Urine Appearance Clear Urine pH 6.5 (5.0-9.0) Ur Specific [place] 1.015 (1.005-1.025) Urine Protein Negative (Neg-Trace) mg/dL Urine Glucose (UA) Negative (Negative) mg/dL Urine Ketones Negative (Negative) mg/dL Urine Blood Negative (Negative) Urine Nitrite Negative (Negative) Ur Leukocyte Esterase Negative (Negative) Imaging Data Abdomen and pelvis CT: Attestation: I personally reviewed and interpreted this imaging study as follows: Radiologist's impression: Circumferential rectal wall thickening which can be seen in the setting of proctitis. ? Midline ventral hernia with a 4.8 cm neck containing loops of nonobstructed small bowel.? ? Discharge Plan Discharge Clinical Impression: Constipation, Hernia Patient Disposition: er [facility] Transfer Details: [facility] Instructions: Constipation (ED) Prescriptions: No Action metoprolol succinate 50 mg Tablet Extended Release 24 Hr 50 mg PO DAILY diazepam 2 mg Tablet 2 mg PO BEDTIME melatonin 1 mg Tablet 1 mg PO BEDTIME pregabalin [Lyrica] 300 mg Capsule 300 mg PO BID Rx Instructions: GIVE WITH 100 MG CAPSULE TO EQUAL 400 MG BID ibuprofen 800 mg Tablet 800 mg PO Q8H PRN (Reason: FEVER/PAIN) divalproex 500 mg Tablet,Delayed Release (Dr/Ec) 500 mg PO BEDTIME acetaminophen 500 mg Tablet 500 mg PO Q6H PRN (Reason: FEVER/MILD PAIN) bisacodyl 10 mg Suppository 10 mg MI Q24H PRN (Reason: Constipation) polyethylene glycol 3350 17 gram/dose Powder 17 g PO DAILY polyethylene glycol 3350 17 gram/dose Powder 17 g PO Q24H PRN (Reason: Constipation) pregabalin 100 mg Capsule 100 mg PO BID Rx Instructions: GIVE WITH 300 MG CAPSULE TO EQUAL 400 MG BID witch monica 50 % Pads, Medicated 1 pad TOPICAL Q24H PRN (Reason: Hemorrhoids) lidocaine 5 % Ointment 1 appl TOPICAL Q6H PRN (Reason: Constipation) Rx Instructions: APPLY A SMALL PEA SIZE AMOUNT TO ANAL AREA Senna Plus 8.6-50 mg Capsule 1 tab-cap PO Q24H PRN (Reason: Constipation) Senna Plus 8.6-50 mg Capsule 1 tab-cap PO BEDTIME cholecalciferol (vitamin D3) 25 mcg (1,000 unit) Tablet 50 mcg PO DAILY sennosides [senna] 8.6 mg tablet 8.6 mg PO BEDTIME Qty: 14 0RF docusate sodium [Colace] 100 mg capsule 100 mg PO BID Qty: 20 0RF polyethylene glycol 3350 [Miralax] 17 gram/dose powder 17 g PO BID PRN (Reason: constipation) Qty: 238 0RF Referrals: Augustine Dan DO [Primary Care Provider] -
[2021-11-20 11:49] LABS: Basophils Percent Auto 0.5 % (0-2); Imm Gran Abs Auto 0.01 X10*3/uL (0.00-0.03); Imm Gran Pct Auto 0.2 % (0.0-0.4); PLT CLUMP 1; Red Blood Count 4.58 X10*6/uL (4.60-5.80); Red Cell Distribution Width 13.8 % (11.0-16.0); SCAN SMEAR FLAG 1
[2021-11-20 11:51] LABS: Eosinophils Absolute Auto 0.1 X10*3/uL (0.0-0.4); Eosinophils Percent Auto 2.6 % (0-4); Hemoglobin 13.7 g/dl (14.0-18.0); Lymphocytes Absolute Auto 1.3 X10*3/uL (1.2-4.9); Lymphocytes Percent Auto 30.6 % (20-40); Mean Corpuscular HGB Conc 32.6 g/dl (31.0-36.0); Mean Corpuscular Hemoglobin 29.9 pg (27.0-33.0); Mean Corpuscular Volume 91.7 fL (80.0-98.0); Mean Platelet Volume 11.7 fL (9.4-12.4); Monocytes Absolute Auto 0.7 X10*3/uL (0.1-1.2); Neutrophils Absolute Auto 2.2 x10*3/uL (2.0-8.3); Neutrophils Percent Auto 50.1 % (45-73)
[2021-11-20 11:53] LABS: Appearance Urine Clear; Color Urine Yellow; Glucose Urine UA Negative (Negative); Leukocyte Esterase Urine Negative (Negative); MANUAL DIFF FLAG NO; Nitrite Urine Negative (Negative); PH 6.5 (5.0-9.0); Platelet Count 90 X10*3/uL (160-400); Specific Gravity - Urine 1.015 (1.005-1.025); Urine Blood Negative (Negative); Urine Ketones Negative (Negative); Urine Protein Negative (Neg-Trace); White Blood Count 4.3 X10*3/uL (4.8-10.8)
[2021-11-20 12:08] LABS: Alanine Aminotransferase 10 U/L (0-40); Albumin Level 3.6 g/dL (3.5-5.0); Alkaline Phosphatase 51 U/L (39-117); Anion Gap 13 (12-20); Aspartate Amino Transferase 11 U/L (5-37); Bilirubin Direct 0.2 mg/dL (0.0-0.5); Bilirubin Total 0.4 mg/dL (0.0-1.0); Blood Urea Nitrogen 15 mg/dL (9-16); Calcium 8.7 mg/dL (8.4-10.2); Carbon Dioxide 32 mmol/L (22-29); Chloride 104 mmol/L (96-108); Creatinine Clr Calc Pharmacy 119.8; Estimated Glomerular Filt Rate > 60; Glucose Random 74 mg/dL (60-115); Lipase 9 U/L (8-78); Potassium 4.6 mmol/L (3.3-5.1); Sodium 144 mmol/L (135-145); Total Protein 6.2 g/dL (6.5-8.0)
[2021-11-20 12:10] VITALS: BP 108/55; PULSE 46; RESP 16; TEMP 36.6; O2SAT 96
[2021-11-20] MEDS: Milk of Magnesia 30 ML ORAL.SUSP PO (13:37)
[2021-11-20] MEDS: bisacodyL 10 MG SUPP.RECT PR (13:37)
== END 2021-11-20 14:04 | disposition skilled nursing facility (03) ==
PROVIDERS: Emergency Provider Emergency Medicine; PCP Hospitalist
DX: K59.00 Constipation, unspecified (principal); K46.9 Unspecified abdominal hernia without obstruction or gangrene; Z79.899 Other long term (current) drug therapy
CPT/HCPCS: 36415; 74176; 80048; 80076; 81003; 83690; 85025; 99283

== ENCOUNTER → 2022-02-21 09:38 | Outpatient (BNVA) | payer MEDICAID, SELFPAY | PROVIDERS: PCP Hospitalist; Referring Provider Internal Medicine Gastroenterology; Visit Provider Surgery | DX: K43.2 Incisional hernia without obstruction or gangrene (principal) | CPT/HCPCS: 99202 ==

== ENCOUNTER 2022-03-15 09:02 | Inpatient (IN) | payer OTHER, SELFPAY ==
[2022-03-09 12:53] VITALS: BMI 36.1
[2022-03-15] VITALS (14 sets, daily range): BP systolic 104–153; BP diastolic 56–119; PULSE 52–73; RESP 15–20; TEMP 36.3–37.2; O2SAT 94–100
--- NOTE | ~2022-03-15 | XR_ITS ---
EXAMINATION: XR CHEST CLINICAL INFORMATION: Postoperative cough. COMPARISON: Chest radiograph dated 11/17/2021. TECHNIQUE: Frontal view of the chest was obtained. FINDINGS: The lungs are clear. The cardiomediastinal silhouette is normal in size. There is no pleural effusion or pneumothorax. No acute osseous abnormality. XR/XR chest 1V IMPRESSION: No acute cardiopulmonary findings.
[2022-03-15 07:56] LABS: COVID-19 Test Negative (Negative); IDNOW Serial# 16C4AD1C
[2022-03-15] MEDS: Lactated Ringers 1,000 ML 100 ML IVCONT (08:00)
--- NOTE | 2022-03-15 08:04 | P.CONAN_ITS ---
[facility] Active Problems Active Problems: All Active Problems (Updated 03/08/22 @ 14:58 by Kelsey Bro RN) Aspiration pneumonia (Acute) Sepsis (Acute) Constipation (Acute) Lactic acidosis (Acute) Hypoxia (Acute) Incisional hernia without mention of obstruction or gangrene (Acute) Hypertension (Acute) Generalized anxiety disorder (Acute) Epilepsy (Acute) Past Medical History Medical History Bilateral cataracts Cognitive impairment Deformity of left hand Depression Diverticular disease Epilepsy Flexion contractures Generalized anxiety disorder History of GI bleed History of hemodialysis Hx of deep venous thrombosis Hypertension Major depressive disorder Mild cognitive impairment Neuroleptic malignant syndrome OCD (obsessive compulsive disorder) Osteoarthritis Personal history of COVID-19 Rectal prolapse Resides in longterm facility Seizure disorder Thrombocytopenia Urinary incontinence Family History Family History Sister Breast CA, Onset Age: 51 Ovarian ca, Onset Age: 55 Father Prostate CA, Onset Age: 70 Mother Colorectal cancer, Onset Age: 39 Kidney carcinoma, Onset Age: 67 Maternal Grandmother Colorectal cancer, Onset Age: 70 Maternal Aunt Colorectal cancer Family history of problems with anesthesia: No Surgical History Surgical History History of repair of rectocele Hx of appendectomy Hx of colonoscopy History of Problems with Anesthesia: No Social History Social History Household Members: Caregiver Household Members Other:: Nursing facility Housing: Alf Housing Other:: longterm facility-[phone] Are you a primary career services manager to a significant other at home: No Do you presently have visiting nurse or other home services: Yes (as above noted) Unable to assess alcohol history related to: Unable to respond Alcohol intake: never Patient Tobacco Use Status: Never used Tobacco Second Hand Smoke Exposure: No Use of substances other than those prescribed or required for medical reasons: No Are you DNR?: No Advance Directives: Yes Advance Directives Information Provided: Yes Advance Directives on File: Yes Advance Directives Date on File: 11/21/19 Recently lost weight without trying: No Eating poorly because of decreased appetite: No service: No Current occupational status: disabled Meds Allergies Allergy/AdvReac Type Severity Reaction Status Date / Time aripiprazole [From ABILIFY] Allergy Severe Involuntary Verified 03/15/22 07:19 Spasms droperidol [From INAPSINE] Allergy Severe Involuntary Verified 03/15/22 07:22 Spasms haloperidol [From HALDOL] Allergy Severe Involuntary Verified 03/15/22 07:22 Spasms prochlorperazine Allergy Severe Involuntary Verified 03/15/22 07:22 [From COMPAZINE] Spasms promethazine [From PHENERGAN] Allergy Severe Involuntary Verified 03/15/22 07:22 Spasms sulfamethoxazole Allergy Severe Anaphylaxis Verified 03/15/22 07:21 [From BACTRIM] trimethoprim [From BACTRIM] Allergy Severe Anaphylaxis Verified 03/15/22 07:20 Active Medications: Current Medications Lactated Ringer's (Lr) 1,000 mls @ 100 mls/hr IVCONT .Q10H [facility] Last Admin: 03/15/22 08:00 Dose: 100 mls/hr Home Medications Medication Instructions Recorded Confirmed Last Taken Type diazepam 2 mg tablet 2 mg PO BID 11/17/19 03/09/22 03/15/22 History melatonin 1 mg tablet 1 mg PO BEDTIME 11/17/19 03/09/22 11/16/19 History acetaminophen 500 mg tablet 500 mg PO Q6H PRN FEVER/MILD PAIN 02/13/20 03/09/22 Unknown History bisacodyl 10 mg rectal suppository 10 mg [place] Q24H PRN Constipation 02/13/20 03/09/22 Unknown History cholecalciferol (vitamin D3) 25 50 mcg PO DAILY 02/13/20 03/09/22 Unknown History mcg (1,000 unit) tablet divalproex 500 mg tablet,delayed 500 mg PO BID 02/13/20 03/09/22 Unknown History release ibuprofen 800 mg tablet 800 mg PO Q8H PRN FEVER/PAIN 02/13/20 03/09/22 Unknown History lidocaine 5 % topical ointment 1 appl topical Q6H PRN Constipation 02/13/20 03/09/22 Unknown History polyethylene glycol 3350 17 17 g PO Q24H PRN Constipation 02/13/20 03/09/22 Unknown History gram/dose oral powder pregabalin 100 mg capsule 100 mg PO TID 02/13/20 03/09/22 03/15/22 History sennosides 8.6 mg-docusate sodium 1 tab-cap PO BEDTIME 02/13/20 03/09/22 Unknown History 50 mg capsule (Senna Plus) sennosides 8.6 mg-docusate sodium 1 tab-cap PO Q24H PRN Constipation 02/13/20 03/09/22 Unknown History 50 mg capsule (Senna Plus) witch monica 50 % topical pads 1 pad topical Q24H PRN Hemorrhoids 02/13/20 03/09/22 Unknown History lactulose 10 gram/15 mL (15 mL) 30 ml PO DAILY 03/09/22 03/09/22 Unknown History oral solution metoprolol succinate 25 mg capsule 25 mg PO BID 03/09/22 03/09/22 03/15/22 History sprinkle, ext. release 24 hr polyethylene glycol 3350 17 17 g PO BID 03/09/22 03/09/22 Unknown History gram/dose oral powder (Miralax) risperidone 0.25 mg tablet 0.125 mg PO QAM 03/09/22 03/09/22 03/15/22 History risperidone 0.25 mg tablet 0.25 mg PO BEDTIME 03/09/22 03/09/22 Unknown History Exam Exam Date and Time: March 15, 2022 0804 Height,Weight and Vital Signs: Height 5 ft 7 in Weight 104.78 kg Pertinent Lab Results Pertinent Lab Results: Laboratory Tests 03/15/22 07:29 COVID-19 ([facility]) Negative COVID-19 Clin Com See Note Airway Mallampati Class: IV TM Dist: >3cm Neck ROM: Full Loose/Missing/Broken Teeth: No Heart: RRR Other: CTA Assessment and Plan Assessment Anesthesia Assessment: Anesthesia Plan Discussed and Chart Reviewed Final Anesthetic Review Family History of Problems with Anesthesia: No History of Problems with Anesthesia: No NPO: Yes ASA Class: III Final Preanesthetic Review: Meds/Allgs Chart Reviewed, Consent Obtained/Reviewed and Anes Risks/Benef Reviewed Patient Risk: Intermediate Procedure Risk: Low Anesthetic Plan Anesthetic Plan: GA Disposition: Standard PACU
--- NOTE | 2022-03-15 08:37 | MHC.SHP ---
Pre-Procedural Eval Section A Date of Service: 03/15/22 The patient is an INPATIENT: No Changes since office visit: Yes Patient answered all questions; No Cold of Flu in the past 2 weeks, No New Medical Problems and No Changes in Medication The History & Physical has been completed within 30 days and I have reviewed it.: Yes Section B Chief Complaint: Incisional hernia without obstruction or gangrene Allergies: Allergies Allergy/AdvReac Type Severity Reaction Status Date / Time aripiprazole [From ABILIFY] Allergy Severe Involuntary Verified 03/15/22 07:19 Spasms droperidol [From INAPSINE] Allergy Severe Involuntary Verified 03/15/22 07:22 Spasms haloperidol [From HALDOL] Allergy Severe Involuntary Verified 03/15/22 07:22 Spasms prochlorperazine Allergy Severe Involuntary Verified 03/15/22 07:22 [From COMPAZINE] Spasms promethazine [From PHENERGAN] Allergy Severe Involuntary Verified 03/15/22 07:22 Spasms sulfamethoxazole Allergy Severe Anaphylaxis Verified 03/15/22 07:21 [From BACTRIM] trimethoprim [From BACTRIM] Allergy Severe Anaphylaxis Verified 03/15/22 07:20 Plan Diagnosis/Plan: Unchanged I have reviewed the history and physical and performed a pertinent physical examination on my patient. No changes have occurred unless specified. Time Spent With Patient Time: Total time managing care of this patient today ____ minutes.
--- OUTSIDE RECORDS SUMMARY | 2022-03-15 09:05 | XMS_ITS ---
:1965 Author Organization [facility] Address [address] [place] [address] Care Team Providers Name Role Phone Pascual Tovar Jr Unavailable Unavailable PROBLEMS Type Condition ICD9-CM IBI34-ON Onset Condition SNOMED Cod e Code Code Dates Status Problem FH: colon cancer Z80.0 Active 429 [id number] Problem Constipation, K59.00 Active 486246 08 unspecified constipation type Problem long term care administrator Z79.1 Active [id number] (current) use of non-steroidal anti-inflammatori es (NSAID) Problem Encounter for Z01.818 Active 033132 001 other preprocedural examination Problem Colon cancer Z12.11 Active 4048817 04 screening ALLERGIES Substance Reaction Event Type Date Status Abilify Unknown Drug Allergy Dec, Active Inapsine Unknown Drug Allergy Dec, Active Compazine Unknown Drug Allergy Dec, Active Haldol Unknown Drug Allergy Dec, Active Bactrim Unknown Drug Allergy Dec, Active Phenergan Unknown Drug Allergy Dec, Active ENCOUNTERS Encounter Location Date Diagnosis [address] Dec, [facility] [address] [place] [id number] Dec, Constipa tion, unspecified [facility] [address] [place] constipati on type K59.00 [id number] [place] [address] Nov, Constipa tion, unspecified [facility] [address] [place] constipati [place] type K59.00 [id number] [place] [address] Feb, [facility] [address] [place] [address] [facility] [address] 04 Feb, 2021 Colon cancer [place] [id number] Z12.11 and Family history of colon cancer Z80.0 [facility] [address] 09 Jan, 2021 FH: colo n cancer Z80.0 ; [facility] [address] [place] Encounter for other [id number] preprocedural ex amination Z01.818 ; Colon cancer screening Z12.11 and long term care administrator (current) u se of non-steroidal anti-inflammator ies (NSAID) Z79.1 IMMUNIZATIONS Vaccine Route Administration Date Status Influenza Unknown Nov 05, 2021 Administered Influenza Unknown Dec 06, 2020 Administered SOCIAL HISTORY Qualifiers Date Never Smoker REASON FOR REFERRAL FUNCTIONAL STATUS PLAN OF CARE Activity Details Follow Up 6 Months Reason: Pending Test TSH REFLEX FREE T4 VITAL SIGNS Weight 227 lbs 2021-12-08 Weight 246 lbs 2021-01-13 Height 66.5 in 2021-12-08 Height 66.5 in 2021-01-13 BMI 36.09 kg/m2 2021-12-08 BMI 39.11 kg/m2 2021-01-13 Temperature 97.7 degrees Fahrenheit 2021-12-08 Temperature 97.3 degrees Fahrenheit 2021-01-13 Blood pressure systolic 000 mm Hg 2021-12-08 Blood pressure diastolic 00 mm Hg 2021-12-08 MEDICATIONS Medication Instructions Dosage Frequency Start End Duration Statu s Date Date Fleet Enema 08-23 as directed Act charlie GM/118ML Melatonin Orally Once a 1 tablet at 24h 30 day(s) Ac tive Childrens 1 MG day bedtime as needed Acetaminophen 500 Orally every 6 1 capsule 6h Active MG hrs as needed Metamucil Active Depakote ER 500 Orally Once a 1 tablet 24h 30 day(s) Active MG day Lyrica 300 MG Orally twice a 1 capsule 12h A ctive day in the evening 1 to 3 hours before bedtime Metoprolol Orally Once a 1 tablet 24h 30 day(s) Acti ve Succinate ER 50 day MG diazePAM 2 MG Orally Once a 1 tablet as 24h Active day needed Vitamin D3 25 MCG Orally Once a 1 capsule 24h 30 day (s) Active (1000 UT) day Ibuprofen 200 MG Orally Three 1 tablet 8h A ctive times a day with food or milk as needed Pregabalin 100 MG Orally Once a 1 capsule 24h Active day Polyethylene as directed Active Glycol 3350 - Senna-Docusate Orally Once a 1 tablet in 24h 30 day( s) Active Sodium 8.6-50 MG day the evening as needed Lactulose 10 GM Orally three 1 packet as 8h Active times a day needed Biscolax Active carBAMazepine ER Orally Twice a 1 tablet 12h 30 day( s) Active 400 MG day PROCEDURES Procedure Date Ordered Result Body Site Pt scrn tbco id as non user Jan 13, 2021 INTRVL 3+YRS PTS CLNSCP DOCD Feb 08, 2021 Pt scrn tbco id as non user Dec 08, 2021 DOC MEDS VERIFIED W/PT OR RE Jan 13, 2021 DOC MEDS VERIFIED W/PT OR RE Dec 08, 2021 LESION REMOVAL COLONOSCOPY Feb 08, 2021 COLORECTAL CA SCREEN DOC REV Jan 13, 2021 PATIENT NOT ELIG D/T ACTIVE DX HTN Jan 13, 2021 COLORECTAL CA SCREEN DOC REV Dec 08, 2021 PATIENT NOT ELIG D/T ACTIVE DX HTN Dec 08, 2021 COLONOSCOPY AND BIOPSY Feb 08, 2021 COLOREC CANCR SCR; COLNSCPY HI RISK Feb 08, 2021 RESULTS Name Result Date Reference Range Pathology 2021-02-08 REASON FOR VISIT TSH, Patient presents today for constipation, constipation , pathology, screening, Patient presents today for a SCREENING COLON Insurance Providers [facility] Member Patient Patient Patient Patient Patient Subscriber Subscriber Subscriber Group Insurance Plan Plan Plan Plan ID Relationship Address Phone Name Date of ID Name Date of No Type Insurance Insurance Insurance Coverage to Subscriber Address Phone Name Dates CARE ONE [phone] CARE ONE self [place] [id number] [facility] [address] [place] [address]
--- NOTE | 2022-03-15 10:37 | P.OP_ITS ---
Operative Note Operative Note Date of Service: 03/15/22 Narrative: Preoperative diagnosis: Incisional hernia Postoperative diagnosis: same Procedure: repair of incisional hernia with mesh Surgeon: Kenji Flores MD Professor Of Literacy: Lui Adames MD; Maddi Ralph PA-C Anesthesia: general endotracheal Indications for procedure: 57-year-old male patient with a prior history of rectal prolapse repair Now with a incisional hernia in the lower abdomen. Operative findings: Incisional hernia located below the umbilicus measuring 10 cm in diameter. Hernia was reducible without incarceration. Specimen: Hernia sac Estimated blood loss: 20 mL Complications: none Procedure details: patient was brought to the OR placed in a supine position. After administering general anesthesia, the abdomen was prepped with ChloraPrep and draped in a sterile fashion. A surgical time-out was called the consent confirmed. Patient received preoperative antibiotics and Venodyne boots were in place. Local anesthesia consisting of 0.5% Sensorcaine with epinephrine was then infiltrated in the midline. Incision was then made over the previous incision and carried out through subcutaneous tissue up to the hernia sac. The hernia sac was then dissected circumferentially down to the fascial defect. The hernia sac was then entered and the contents reduced. The sac excised at the pathology as a specimen. The peritoneal was then closed using a running 0 Polysorb suture. A sub musculo plane was then dissected below the rectus muscle toward the oblique muscles. The hernia defect measured approximately 10 cm in diameter. A 14 x 10 Ventrio oval mesh was then obtained. The mesh was then secured in 4 quadrants using a 1 Tycron suture. The mesh was then tacked using the AbsorbaTack Circumferentially. Anterior rectus sheath was then closed over the mesh using interrupted [id number] 1 Tycron sutures. prior to completely closing the fascia Zenrelef was will traded over the mesh and the fascia completely closed. Wounds were irrigated with saline solution and suctioned dry. Subcutaneous tissue and dermis were then reapproximated using interrupted 3-0 Polysorb sutures. Skin was skin was closed using a running subcuticular 4-0 Polysorb suture. Steri-Strips, 4x4 gauze and Tegaderm were then applied. Abdominal binder was then applied. The patient tolerated the procedure well. Sponge, instrument, and needle counts reported as correct. The patient was transferred to PACU in stable condition.
[2022-03-15] MEDS: Dextrose 5 % and Lactated Ring 1,000 ML 125 ML IVCONT ×2 (11:15→18:36)
[2022-03-15] MEDS: Acetaminophen 325 MG TABLET 650 MG PO (11:25)
[2022-03-15] MEDS: Pregabalin 100 MG CAPSULE PO ×2 (14:01→19:57)
[2022-03-15] MEDS: oxyCODONE HCl Immed Release 5 MG TABLET PO ×2 (14:01→19:56)
[2022-03-15] MEDS: risperiDONE 0.25 MG TABLET 0.125 MG PO (14:53)
[2022-03-15] MEDS: Heparin Sodium,Porcine 5,000 UNIT/ML VIAL 5000 UNIT SUBCUT (18:10)
[2022-03-15] MEDS: Acetaminophen 1,000 MG/100 ML PIGGYBACK 400 MG IV (19:20)
[2022-03-15] MEDS: Divalproex Sodium 500 MG TABLET.DR PO (19:57)
[2022-03-15] MEDS: diazePAM 2 MG TABLET PO (19:57)
[2022-03-15] MEDS: risperiDONE 0.25 MG TABLET PO (19:57)
[2022-03-15] MEDS: Melatonin 3 MG TABLET PO (19:57)
[2022-03-15] MEDS: Metoprolol Succinate ER 25 MG TAB.ER.24H PO (19:57)
[2022-03-15] MEDS: polyethylene glycoL 3350 17 GM POWD.PACK PO (19:58)
[2022-03-16] MEDS: Acetaminophen 1,000 MG/100 ML PIGGYBACK 400 MG IV ×2 (01:58→07:58)
[2022-03-16] MEDS: Dextrose 5 % and Lactated Ring 1,000 ML 125 ML IVCONT ×3 (01:58→19:59)
[2022-03-16 03:43] VITALS: BP 101/55; PULSE 59; RESP 18; TEMP 37.1; O2SAT 94
[2022-03-16] MEDS: Heparin Sodium,Porcine 5,000 UNIT/ML VIAL 5000 UNIT SUBCUT ×2 (05:55→17:53)
--- NOTE | 2022-03-16 07:45 | PM.PNGS ---
Subjective Subjective Date of Service: 03/16/22 Interval history: Reports some incisional pain, tolerated some p.o. yesterday. Sister was able to ambulate in the hallways last evening. Plan to ambulate more today. Physical Exam Vital Signs: Vital Signs: Last Vital Signs Temp 98.8 F 03/16/22 03:43 Pulse 59 03/16/22 03:43 Resp 18 03/16/22 03:43 BP 101/55 L 03/16/22 03:43 Pulse Ox 94 03/16/22 03:43 O2 Del Method 03/16/22 03:43 O2 Flow Rate 1.5 03/15/22 15:03 BMI result Body Mass Index 36.1 Const: Other: Awake and alert, no acute distress Resp: Other: Breathing comfortably on room air, no respiratory distress GI: Other: Abdominal binder in place. Incision clean, dry, and intact with intact dressing. Small amount of ecchymosis surrounding the incision. Skin: Other: Warm, dry, no rash Extrem: Other: No pedal edema Objective Data Active Medications Acetaminophen (Acetaminophen 325 Mg Tablet) 650 mg PO Q6H PRN PRN Reason: FEVER/MILD PAIN Bisacodyl (Bisacodyl 10 Mg Supp.Rect) 10 mg NM Q24H PRN PRN Reason: Constipation Diazepam (Diazepam 2 Mg Tablet) 2 mg PO BID [facility] Last Admin: 03/15/22 19:57 Dose: 2 mg Documented By: KENDRA Divalproex Sodium (Divalproex Sodium 500 Mg Tablet.) 500 mg PO BID [facility] Last Admin: 03/15/22 19:57 Dose: 500 mg Documented By: KENDRA Heparin Sodium (Porcine) (Heparin Sodium,Porcine 5,000 Unit/Ml Vial) 5,000 unit SUBCUT Q12H [facility] Last Admin: 03/16/22 05:55 Dose: 5,000 unit Documented By: KENDRA Hydromorphone HCl (Hydromorphone Hcl 0.5 Mg/0.5 Ml Syringe) 0.5 mg IVPUSH Q3H PRN; Protocol PRN Reason: Pain, Severe (Pain Scale 7-10) Dextrose/Lactated Ringer's (D5lr) 1,000 mls @ 125 mls/hr IVCONT .Q8H [facility] Last Admin: 03/16/22 01:58 Dose: 125 mls/hr Documented By: KENDRA Acetaminophen (Ofirmev) 1,000 mg in 100 mls @ 400 mls/hr IV Q6H [facility] Stop: 03/16/22 08:14 Last Infusion: 03/16/22 02:16 Dose: 0 mls/hr Documented By: KENDRA Ibuprofen (Ibuprofen 800 Mg Tablet) 800 mg PO Q8H PRN PRN Reason: FEVER/PAIN Lactulose (Lactulose 20 Gm/30 Ml Solution) 20 gm PO DAILY [facility] Melatonin (Melatonin 3 Mg Tablet) 3 mg PO BEDTIME [facility] Last Admin: 03/15/22 19:57 Dose: 3 mg Documented By: KENDRA Metoprolol Succinate (Metoprolol Succinate Er 25 Mg Tab.Er.24h) 25 mg PO BID [facility]; Protocol Last Admin: 03/15/22 19:57 Dose: 25 mg Documented By: KENDRA Ondansetron HCl (Ondansetron Hcl 4 Mg/2 Ml Vial) 4 mg IVPUSH QID PRN PRN Reason: Nausea Oxycodone HCl (Oxycodone Hcl Immed Release 5 Mg Tablet) 5 mg PO Q4H PRN PRN Reason: Pain, Moderate (Pain Scale 4-6 Last Admin: 03/15/22 19:56 Dose: 5 mg Documented By: KENDRA Polyethylene Glycol (Polyethylene Glycol 3350 17 Gm Powd.Pack) 17 gm PO BID [facility] Last Admin: 03/15/22 19:58 Dose: 17 gm Documented By: KENDRA Polyethylene Glycol (Polyethylene Glycol 3350 17 Gm Powd.Pack) 17 gm PO Q24H PRN PRN Reason: Constipation Pregabalin (Pregabalin 100 Mg Capsule) 100 mg PO TID [facility] Last Admin: 03/15/22 19:57 Dose: 100 mg Documented By: KENDRA Risperidone (Risperidone 0.25 Mg Tablet) 0.125 mg PO DAILY [facility] Last Admin: 03/15/22 14:53 Dose: 0.125 mg Documented By: TORRES Risperidone (Risperidone 0.25 Mg Tablet) 0.25 mg PO BEDTIME [facility] Last Admin: 03/15/22 19:57 Dose: 0.25 mg Documented By: KENDRA Senna (Sennosides 8.6 Mg Tablet) 17.2 mg PO BEDTIME PRN PRN Reason: Constipation Sodium Chloride (0.9 % Sodium Chloride Flush 3 Ml Syringe) 3 ml IVFLUSH QSHIFT [facility] Last Admin: 03/15/22 20:01 Dose: Not Given Documented By: KENDRA Non-Admin Reason: IV Running Vitamin D (Cholecalciferol (Vitamin D3) 25 Mcg Tablet) 50 mcg PO DAILY [facility] Labs Labs: Laboratory Results - last 24 hr 03/15/22 07:29 COVID-19 ([facility]) Negative COVID-19 Clin Com See Note Procedures Date of Service Date of Service: 03/16/22 Progress Note: A&P Assessment and plan (1) Incisional hernia without mention of obstruction or gangrene: Status: Acute Plan Pod 1 following repair of incisional hernia with mesh. Patient remains hemodynamically stable. Pain seems to be well managed at this time. As patient is going to a assisted I will hold on discharge for 1 more day to allow patient become more independent with ambulation. Continue regular diet. Time Spent With Patient Time: Total time managing care of this patient today ____ minutes. Quality Stroke Does the patient have a stroke diagnosis?: No VTE Prior VTE?: No VTE Risk Level:: Surgical - moderate VTE Device Contraindication: N/A - Device Ordered VTE Drug Contraindication: N/A - Med Ordered
[2022-03-16] MEDS: polyethylene glycoL 3350 17 GM POWD.PACK PO ×2 (07:51→19:59)
[2022-03-16] MEDS: Pregabalin 100 MG CAPSULE PO ×3 (07:51→19:58)
[2022-03-16] MEDS: Lactulose 20 GM/30 ML SOLUTION PO (07:51)
[2022-03-16] MEDS: Cholecalciferol (Vitamin D3) 25 MCG TABLET 50 MCG PO (07:51)
[2022-03-16] MEDS: diazePAM 2 MG TABLET PO ×2 (07:51→19:58)
[2022-03-16] MEDS: risperiDONE 0.25 MG TABLET 0.125 MG PO (07:52)
[2022-03-16] MEDS: Metoprolol Succinate ER 25 MG TAB.ER.24H PO ×2 (07:52→19:58)
[2022-03-16] MEDS: Divalproex Sodium 500 MG TABLET.DR PO ×2 (07:52→19:58)
[2022-03-16 08:00] VITALS: BP 134/88; PULSE 63; RESP 18; TEMP 36.8; O2SAT 95
[2022-03-16 12:00] VITALS: BP 120/73; PULSE 88; RESP 18; TEMP 36.3; O2SAT 92
[2022-03-16] MEDS: oxyCODONE HCl Immed Release 5 MG TABLET PO (12:39)
--- NOTE | 2022-03-16 14:14 | HO.POSTANES ---
Post Anesthesia Evaluation Post Anesthesia Evaluation Vital Signs: Vital Signs Temp Pulse Resp BP Pulse Ox O2 Del Method 03/16/22 12:00 97.3 F 88 18 120/73 92 Room Air 03/16/22 08:00 98.3 F 63 18 134/88 95 Room Air 03/16/22 03:43 98.8 F 59 18 101/55 L 94 Room Air Anesthesia: General Mental Status: Awake Pain Control: Satisfactory (incisional pain) Nausea/Vomiting: None Hydration: Adequate Anesthesia-Related Issues: No Anes. Related Issues
--- NOTE | 2022-03-16 14:16 | MHC.CM.PN ---
EMR REVIEWED, PT ADMITTED WVENTRAL HERNIA REPAIR, CM MET WPT AND SISTER JC AT BEDSIDE, PT IS A LTC PT AT [facility] AND PLAN IS FOR RETURN ONCE MEDICALLY CLEARED, PT WILL NEED TRANSPORT BACK TO [facility].
[2022-03-16 15:11] VITALS: BP 136/60; PULSE 75; RESP 18; TEMP 37.7; O2SAT 94
[2022-03-16] MEDS: Acetaminophen 325 MG TABLET 650 MG PO ×2 (15:23→21:18)
[2022-03-16 19:04] VITALS: BP 116/57; PULSE 85; RESP 18; TEMP 37.6; O2SAT 92
[2022-03-16] MEDS: risperiDONE 0.25 MG TABLET PO (19:58)
[2022-03-16] MEDS: Melatonin 3 MG TABLET PO (19:58)
[2022-03-16 23:31] VITALS: BP 116/62; PULSE 72; RESP 18; TEMP 36.9; O2SAT 92
[2022-03-17] MEDS: Acetaminophen 325 MG TABLET 650 MG PO ×2 (03:02→13:37)
[2022-03-17] MEDS: Dextrose 5 % and Lactated Ring 1,000 ML 125 ML IVCONT ×2 (03:04→10:48)
[2022-03-17 03:06] VITALS: BP 109/60; PULSE 76; RESP 18; TEMP 37.5; O2SAT 94
[2022-03-17] MEDS: Heparin Sodium,Porcine 5,000 UNIT/ML VIAL 5000 UNIT SUBCUT ×2 (06:07→18:08)
--- NOTE | 2022-03-17 07:29 | PM.PNGS ---
Subjective Subjective Date of Service: 03/17/22 Interval history: patient feels tired this morning low-grade fever reported overnight. Denies abdominal pain. Was able to move his bowels yesterday. Physical Exam Vital Signs: Vital Signs: Last Vital Signs Temp 99.5 F 03/17/22 03:06 Pulse 76 03/17/22 03:06 Resp 18 03/17/22 03:06 BP 109/60 03/17/22 03:06 Pulse Ox 94 03/17/22 03:06 O2 Del Method 03/17/22 03:06 O2 Flow Rate 1.5 03/15/22 15:03 BMI result Body Mass Index 36.1 Const: Other: Sleepy General: no acute distress Nutritional Appearance: well nourished Orientation/consciousness: patient oriented x3 Resp: Other: shallow respiration, no shortness of breath or wheezing GI: Other: soft and nondistended, incision clean and intact without erythema or discharge Neuro: General: patient oriented x3 Extrem: Other: no edema, nontender calf muscles Objective Data Active Medications Acetaminophen (Acetaminophen 325 Mg Tablet) 650 mg PO Q6H PRN PRN Reason: FEVER/MILD PAIN Last Admin: 03/17/22 03:02 Dose: 650 mg Documented By: KENDRA Bisacodyl (Bisacodyl 10 Mg Supp.Rect) 10 mg GA Q24H PRN PRN Reason: Constipation Diazepam (Diazepam 2 Mg Tablet) 2 mg PO BID [facility] Last Admin: 03/16/22 19:58 Dose: 2 mg Documented By: KENDRA Divalproex Sodium (Divalproex Sodium 500 Mg Tablet.) 500 mg PO BID [facility] Last Admin: 03/16/22 19:58 Dose: 500 mg Documented By: KENDRA Heparin Sodium (Porcine) (Heparin Sodium,Porcine 5,000 Unit/Ml Vial) 5,000 unit SUBCUT Q12H [facility] Last Admin: 03/17/22 06:07 Dose: 5,000 unit Documented By: KENDRA Hydromorphone HCl (Hydromorphone Hcl 0.5 Mg/0.5 Ml Syringe) 0.5 mg IVPUSH Q3H PRN; Protocol PRN Reason: Pain, Severe (Pain Scale 7-10) Dextrose/Lactated Ringer's (D5lr) 1,000 mls @ 125 mls/hr IVCONT .Q8H [facility] Last Admin: 03/17/22 03:04 Dose: 125 mls/hr Documented By: KENDRA Ibuprofen (Ibuprofen 800 Mg Tablet) 800 mg PO Q8H PRN PRN Reason: FEVER/PAIN Lactulose (Lactulose 20 Gm/30 Ml Solution) 20 gm PO DAILY [facility] Last Admin: 03/16/22 07:51 Dose: 20 gm Documented By: TORRES Melatonin (Melatonin 3 Mg Tablet) 3 mg PO BEDTIME [facility] Last Admin: 03/16/22 19:58 Dose: 3 mg Documented By: KENDRA Metoprolol Succinate (Metoprolol Succinate Er 25 Mg Tab.Er.24h) 25 mg PO BID [facility]; Protocol Last Admin: 03/16/22 19:58 Dose: 25 mg Documented By: KENDRA Ondansetron HCl (Ondansetron Hcl 4 Mg/2 Ml Vial) 4 mg IVPUSH QID PRN PRN Reason: Nausea Oxycodone HCl (Oxycodone Hcl Immed Release 5 Mg Tablet) 5 mg PO Q4H PRN PRN Reason: Pain, Moderate (Pain Scale 4-6 Last Admin: 03/16/22 12:39 Dose: 5 mg Documented By: TORRES Polyethylene Glycol (Polyethylene Glycol 3350 17 Gm Powd.Pack) 17 gm PO BID [facility] Last Admin: 03/16/22 19:59 Dose: 17 gm Documented By: KENDRA Polyethylene Glycol (Polyethylene Glycol 3350 17 Gm Powd.Pack) 17 gm PO Q24H PRN PRN Reason: Constipation Pregabalin (Pregabalin 100 Mg Capsule) 100 mg PO TID [facility] Last Admin: 03/16/22 19:58 Dose: 100 mg Documented By: KENDRA Risperidone (Risperidone 0.25 Mg Tablet) 0.125 mg PO DAILY [facility] Last Admin: 03/16/22 07:52 Dose: 0.125 mg Documented By: TORRES Risperidone (Risperidone 0.25 Mg Tablet) 0.25 mg PO BEDTIME [facility] Last Admin: 03/16/22 19:58 Dose: 0.25 mg Documented By: KENDRA Senna (Sennosides 8.6 Mg Tablet) 17.2 mg PO BEDTIME PRN PRN Reason: Constipation Sodium Chloride (0.9 % Sodium Chloride Flush 3 Ml Syringe) 3 ml IVFLUSH QSHIFT [facility] Last Admin: 03/16/22 20:49 Dose: Not Given Documented By: KENDRA Non-Admin Reason: IV Running Vitamin D (Cholecalciferol (Vitamin D3) 25 Mcg Tablet) 50 mcg PO DAILY [facility] Last Admin: 03/16/22 07:51 Dose: 50 mcg Documented By: TORRES Procedures Date of Service Date of Service: 03/17/22 Progress Note: A&P Assessment and plan (1) Incisional hernia without mention of obstruction or gangrene: Status: Acute Plan pod 2 following repair of incisional hernia with mesh. Patient found to have low-grade temperature possibly due to atelectasis. the patient was instructed on incentive spirometry and will perform deep breathing exercises 10 times every hour. Continue out of bed and ambulation. Possible discharge later today if improved. Time Spent With Patient Time: Total time managing care of this patient today ____ minutes. Quality Stroke Does the patient have a stroke diagnosis?: No VTE Prior VTE?: No VTE Risk Level:: Surgical - moderate VTE Device Contraindication: N/A - Device Ordered VTE Drug Contraindication: N/A - Med Ordered
[2022-03-17 08:00] VITALS: BP 103/55; PULSE 68; RESP 18; TEMP 36.8; O2SAT 93
[2022-03-17] MEDS: polyethylene glycoL 3350 17 GM POWD.PACK PO ×2 (10:22→21:04)
[2022-03-17] MEDS: Lactulose 20 GM/30 ML SOLUTION PO (10:22)
[2022-03-17] MEDS: Metoprolol Succinate ER 25 MG TAB.ER.24H PO ×2 (10:22→21:05)
[2022-03-17] MEDS: diazePAM 2 MG TABLET PO ×2 (10:23→21:05)
[2022-03-17] MEDS: Divalproex Sodium 500 MG TABLET.DR PO ×2 (10:23→21:05)
[2022-03-17] MEDS: Pregabalin 100 MG CAPSULE PO ×3 (10:23→21:04)
[2022-03-17] MEDS: risperiDONE 0.25 MG TABLET 0.125 MG PO (10:23)
[2022-03-17] MEDS: Cholecalciferol (Vitamin D3) 25 MCG TABLET 50 MCG PO (10:24)
[2022-03-17] MEDS: 0.9 % Sodium Chloride Flush 3 ML SYRINGE IVFLUSH ×2 (10:24→21:05)
[2022-03-17 12:00] VITALS: BP 122/56; PULSE 70; RESP 18; TEMP 36.8; O2SAT 94
[2022-03-17] MEDS: oxyCODONE HCl Immed Release 5 MG TABLET PO ×2 (13:36→18:13)
--- NOTE | 2022-03-17 14:43 | P.DS_ITS ---
DS: Providers Provider Date of Service: 03/18/22 Date of admission: 03/15/22 09:02 Date of discharge: 03/18/22 Primary care physician: Augustine Dan DO Attending physician on admission: Kenji Flores Attending physician on discharge: Irene Ferrara DS: Transfer Hospital Acceptance Name of Facility: [facility] DS: Diagnosis Discharge Diagnosis (1) Incisional hernia without mention of obstruction or gangrene: Status: Acute DS: Summary Hospital Course Hospital Course: HPI AT ADMISSION: 57-year-old male patient with history of seizure disorder, cognitive impairment, and resident of [facility] presenting for evaluation of an abdominal wall hernia.? Hernia was noted after abdominal surgery in the lower abdomen for rectal prolapse.? Postoperatively he began to noted pain and swelling in the incision.? He was recently seen in the emergency department for increased abdominal pain and found to have constipation possibly related to the hernia.? The constipation is now improved after starting Metamucil however he continues to note the discomfort from the hernia.? He denies nausea, vomiting, fever or chills.? A CT abdomen and pelvis does confirm the 5 cm incisional hernia containing small bowel without obstruction in the lower midline.? He is requesting repair of this incisional hernia. ? HOSPITAL COURSE: On 03/14/22, repair of incisional hernia with mesh was performed by Dr. Flores without complication. The incisional hernia was located below the umbilicus measuring 10 cm in diameter and reducible without incarceration. The patient tolerated the procedure well and was admitted to the surgical service for observation post operatively. He had an uncomplicated recovery course. Due to the size of the hernia, he was kept inpatient for pain control. His activity was gradually increased. On the day of discharge, he was tolerating a solid diet without nausea or vomiting, he was passing flatus and had adequate pain control on PO analgesics. His abdomen was benign with appropriate post op tenderness and clean incision. He was transferred back to [facility] on 03/19/22 in stable condition. He can follow up with Dr. Flores in 1 week. Status at Discharge Functional status at discharge: independent ambulation Overall status at discharge: patient is progressing back to baseline Time Spent with Patient Time attestation: Total time managing care of this patient today ____ minutes. Discharge coordination time: Less than 30 minutes Quality: Safe Use of Opioids Does Pt have an Active Cancer Diagnosis on the Problem List?: No Quality: Stroke Does the patient have a stroke diagnosis?: No Physical Exam Vital Signs: Vital Signs: Last Vital Signs Temp 98.3 F 03/17/22 12:00 Pulse 70 03/17/22 12:00 Resp 18 03/17/22 12:00 BP 122/56 L 03/17/22 12:00 Pulse Ox 94 03/17/22 12:00 O2 Del Method 03/17/22 12:00 O2 Flow Rate 1.5 03/15/22 15:03 BMI result Body Mass Index 36.1 Const: General: comfortable, no acute distress and alert GI: Inspection: No distended and Yes incision (clean) Palpation (GI): Soft to palpation, Tenderness to palpation present (GI) (mild incisional), no guarding and not rigid Skin: General skin exam: no rashes or lesions noted Neuro: General: moves all extremities DS: Data Data Completed and Pending Completed studies during hospitalization [Text1]: Pending at discharge 03/15/22 09:42 Surgical [PTH] Routine Discharge Plan Discharge Anticipated Discharge Date/Time: 03/19/22 15:58 Patient Disposition: er Discharge Diagnosis: Incisional hernia status post repair with mesh Referrals: [facility] [Outside] - 1 Day (RESUMPTION OF CARE) Kenji Flores MD [Physician] - 1 Week Augustine Dan DO [Primary Care Provider] - 1 Week Discharge Medications: Continued diazepam 2 mg Tablet 2 mg PO BID melatonin 1 mg Tablet 1 mg PO BEDTIME ibuprofen 800 mg Tablet 800 mg PO Q8H PRN (Reason: FEVER/PAIN) divalproex 500 mg Tablet,Delayed Release (Dr/Ec) 500 mg PO BID acetaminophen 500 mg Tablet 500 mg PO Q6H PRN (Reason: FEVER/MILD PAIN) bisacodyl 10 mg Suppository 10 mg [place] Q24H PRN (Reason: Constipation) polyethylene glycol 3350 17 gram/dose Powder 17 g PO Q24H PRN (Reason: Constipation) pregabalin 100 mg Capsule 100 mg PO TID Rx Instructions: GIVE WITH 300 MG CAPSULE TO EQUAL 400 MG BID witch monica 50 % Pads, Medicated 1 pad TOPICAL Q24H PRN (Reason: Hemorrhoids) lidocaine 5 % Ointment 1 appl TOPICAL Q6H PRN (Reason: Constipation) Rx Instructions: APPLY A SMALL PEA SIZE AMOUNT TO ANAL AREA Senna Plus 8.6-50 mg Capsule 1 tab-cap PO Q24H PRN (Reason: Constipation) Senna Plus 8.6-50 mg Capsule 1 tab-cap PO BEDTIME cholecalciferol (vitamin D3) 25 mcg (1,000 unit) Tablet 50 mcg PO DAILY risperidone 0.25 mg Tablet 0.25 mg PO BEDTIME risperidone 0.25 mg Tablet 0.125 mg PO QAM lactulose 10 gram/15 mL (15 mL) Solution 30 ml PO DAILY metoprolol succinate 25 mg Capsule,Sprinkle,Er 24hr 25 mg PO BID polyethylene glycol 3350 [Miralax] 17 gram/dose powder 17 g PO BID No Action (DME) abdominal binder 2xl See Rx Instructions .Route .MEDSUPPLY Qty: 1 0RF Rx Instructions: Pt to wear binder during daytime hours - may remove for shower Discharge Orders: Discharge Order (Routine); Ordered 03/19/22 Ordered By: Irene Ferrara Diet: Advance to usual diet Activity on Discharge: No heavy lifting Stand Alone Forms: Patient Portal Discharge page Activity Restrictions/Additional Instructions: If the incision area is tender, you may apply an ice pack for short intervals (No more than 20 minutes on, followed by at least 20 minutes off). Do not apply heat. Do not use creams, lotions, or topical antibiotics unless instructed to do so by your surgeon. These can cause infection or allergic reaction. Ok to shower. Remove clear dressings 3 days following your procedure. You have steri strips (small white cloth strips) covering your incision- these will fall off ~1 week. No heavy lifting (>10lbs) or strenuous activity! Follow up in office with Dr. Flores in 1 week. ([phone]) Call Your Doctor If: -Your temperature exceeds 101.5? F -You experience excessive pain or swelling -You have an unexpected reaction to medication -You have excessive bleeding -You experience continued vomiting/nausea -Your incision begins to separate -Your incision shows signs of infection such as increased redness, swelling, excessive pain, drainage (light blood or clear fluid is normal) or heat Care Plan Goals: Return to baseline health and gradual return to activity following recovery period. Health Concerns: Large incisional hernia Plan of Treatment: s/p repair of incisional hernia with mesh Assessment: Doing well post op Discharge Date/Time: 03/19/22 18:20
--- NOTE | 2022-03-17 14:58 | P.DS_ITS ---
DS: Providers Provider Date of Service: 03/19/22 Date of admission: 03/15/22 09:02 Date of discharge: 03/19/22 Primary care physician: Augustine Dan DO Admitting clinician: Kenji Flores Attending physician on discharge: Kenji Flores DS: Transfer Hospital Acceptance Reason for Transfer: Return to home facility Name of Facility: [facility] Accepting Provider: Dr. Augustine Dan DS: Diagnosis Discharge Diagnosis (1) Incisional hernia without mention of obstruction or gangrene: Status: Acute DS: Summary Hospital Course Hospital Course: HPI AT ADMISSION: 57-year-old male patient with history of seizure disorder, cognitive impairment, and resident of [facility] presenting for evaluation of an abdominal wall hernia.? Hernia was noted after abdominal surgery in the lower abdomen for rectal prolapse.? Postoperatively he began to noted pain and swelling in the incision.? He was recently seen in the emergency department for increased abdominal pain and found to have constipation possibly related to the hernia.? The constipation is now improved after starting Metamucil however he continues to note the discomfort from the hernia.? He denies nausea, vomiting, fever or chills.? A CT abdomen and pelvis does confirm the 5 cm incisional hernia containing small bowel without obstruction in the lower midline.? He is requesting repair of this incisional hernia. ? HOSPITAL COURSE: On 03/14/22, repair of incisional hernia with mesh was performed by Dr. Flores without complication. The incisional hernia was located below the umbilicus measuring 10 cm in diameter and reducible without incarceration. The patient tolerated the procedure well and was admitted to the surgical service for observation post operatively. He had an uncomplicated recovery course. Due to the size of the hernia, he was kept inpatient for pain control. His activity was gradually increased. On the day of discharge, he was tolerating a solid diet without nausea or vomiting, he was passing flatus and had adequate pain control on PO analgesics. His abdomen was benign with appropriate post op tenderness and clean incision. He was transferred back to [facility] on 03/19/22 in stable condition. He can follow up with Dr. Flores in 1 week. Status at Discharge Functional status at discharge: independent ambulation Overall status at discharge: patient is not back to baseline Time Spent with Patient Time attestation: Total time managing care of this patient today ____ minutes. Discharge coordination time: Less than 30 minutes Quality: Safe Use of Opioids Does Pt have an Active Cancer Diagnosis on the Problem List?: No Quality: Stroke Does the patient have a stroke diagnosis?: No Physical Exam Vital Signs: Vital Signs: Last Vital Signs Temp 98.3 F 03/17/22 12:00 Pulse 70 03/17/22 12:00 Resp 18 03/17/22 12:00 BP 122/56 L 03/17/22 12:00 Pulse Ox 94 03/17/22 12:00 O2 Del Method 03/17/22 12:00 O2 Flow Rate 1.5 03/15/22 15:03 BMI result Body Mass Index 36.1 Const: Other: Sleepy General: no acute distress Nutritional Appearance: well nourished Orientation/consciousness: patient oriented x3 Resp: Other: shallow respiration, no shortness of breath or wheezing GI: Other: soft and nondistended, incision clean and intact without erythema or discharge Neuro: General: patient oriented x3 Extrem: Other: no edema, nontender calf muscles DS: Data Data Completed and Pending Completed studies during hospitalization [Text1]: Pending at discharge 03/15/22 09:42 Surgical [PTH] Routine Discharge Plan Discharge Anticipated Discharge Date/Time: 03/19/22 15:58 Patient Disposition: Xfer SNF Discharge Diagnosis: Incisional hernia status post repair with mesh Referrals: [facility] [Outside] - 1 Day (RESUMPTION OF CARE) Kenji Flores MD [Physician] - 1 Week Augustine Dan DO [Primary Care Provider] - 1 Week Discharge Medications: Continued diazepam 2 mg Tablet 2 mg PO BID melatonin 1 mg Tablet 1 mg PO BEDTIME ibuprofen 800 mg Tablet 800 mg PO Q8H PRN (Reason: FEVER/PAIN) divalproex 500 mg Tablet,Delayed Release (Dr/Ec) 500 mg PO BID acetaminophen 500 mg Tablet 500 mg PO Q6H PRN (Reason: FEVER/MILD PAIN) bisacodyl 10 mg Suppository 10 mg [place] Q24H PRN (Reason: Constipation) polyethylene glycol 3350 17 gram/dose Powder 17 g PO Q24H PRN (Reason: Constipation) pregabalin 100 mg Capsule 100 mg PO TID Rx Instructions: GIVE WITH 300 MG CAPSULE TO EQUAL 400 MG BID witch monica 50 % Pads, Medicated 1 pad TOPICAL Q24H PRN (Reason: Hemorrhoids) lidocaine 5 % Ointment 1 appl TOPICAL Q6H PRN (Reason: Constipation) Rx Instructions: APPLY A SMALL PEA SIZE AMOUNT TO ANAL AREA Senna Plus 8.6-50 mg Capsule 1 tab-cap PO Q24H PRN (Reason: Constipation) Senna Plus 8.6-50 mg Capsule 1 tab-cap PO BEDTIME cholecalciferol (vitamin D3) 25 mcg (1,000 unit) Tablet 50 mcg PO DAILY risperidone 0.25 mg Tablet 0.25 mg PO BEDTIME risperidone 0.25 mg Tablet 0.125 mg PO QAM lactulose 10 gram/15 mL (15 mL) Solution 30 ml PO DAILY metoprolol succinate 25 mg Capsule,Sprinkle,Er 24hr 25 mg PO BID polyethylene glycol 3350 [Miralax] 17 gram/dose powder 17 g PO BID Discharge Orders: Discharge Order (Routine); Ordered 03/19/22 Ordered By: Irene Ferrara Diet: Advance to usual diet Activity on Discharge: No heavy lifting Stand Alone Forms: Patient Portal Discharge page Activity Restrictions/Additional Instructions: If the incision area is tender, you may apply an ice pack for short intervals (No more than 20 minutes on, followed by at least 20 minutes off). Do not apply heat. Do not use creams, lotions, or topical antibiotics unless instructed to do so by your surgeon. These can cause infection or allergic reaction. Ok to shower. Remove clear dressings 3 days following your procedure. You have steri strips (small white cloth strips) covering your incision- these will fall off ~1 week. No heavy lifting (>10lbs) or strenuous activity! Follow up in office with Dr. Flores in 1 week. ([phone]) Call Your Doctor If: -Your temperature exceeds 101.5? F -You experience excessive pain or swelling -You have an unexpected reaction to medication -You have excessive bleeding -You experience continued vomiting/nausea -Your incision begins to separate -Your incision shows signs of infection such as increased redness, swelling, excessive pain, drainage (light blood or clear fluid is normal) or heat Care Plan Goals: Return to baseline health and gradual return to activity following recovery period. Health Concerns: Large incisional hernia Plan of Treatment: s/p repair of incisional hernia with mesh Assessment: Doing well post op Discharge Date/Time: 03/19/22 18:20
[2022-03-17 19:29] VITALS: BP 117/59; PULSE 73; RESP 18; TEMP 36.7; O2SAT 95
[2022-03-17] MEDS: Melatonin 3 MG TABLET PO (21:05)
[2022-03-17] MEDS: risperiDONE 0.25 MG TABLET PO (21:05)
[2022-03-17 23:21] VITALS: BP 123/59; PULSE 86; RESP 14; TEMP 37.1; O2SAT 93
[2022-03-18 04:00] VITALS: BP 127/59; PULSE 78; RESP 18; TEMP 37.8; O2SAT 94
[2022-03-18] MEDS: Acetaminophen 325 MG TABLET 650 MG PO ×2 (04:54→21:05)
[2022-03-18] MEDS: Heparin Sodium,Porcine 5,000 UNIT/ML VIAL 5000 UNIT SUBCUT ×2 (05:01→17:57)
[2022-03-18 07:22] VITALS: BP 97/55; PULSE 71; RESP 18; TEMP 37.3; O2SAT 95
[2022-03-18] MEDS: diazePAM 2 MG TABLET PO ×2 (09:13→21:05)
[2022-03-18] MEDS: Pregabalin 100 MG CAPSULE PO ×3 (09:13→21:04)
[2022-03-18] MEDS: Metoprolol Succinate ER 25 MG TAB.ER.24H PO ×2 (09:13→21:05)
[2022-03-18] MEDS: polyethylene glycoL 3350 17 GM POWD.PACK PO ×2 (09:14→21:04)
[2022-03-18] MEDS: Divalproex Sodium 500 MG TABLET.DR PO ×2 (09:14→21:05)
[2022-03-18] MEDS: Lactulose 20 GM/30 ML SOLUTION PO (09:14)
[2022-03-18] MEDS: Cholecalciferol (Vitamin D3) 25 MCG TABLET 50 MCG PO (09:14)
[2022-03-18] MEDS: risperiDONE 0.25 MG TABLET 0.125 MG PO (09:15)
[2022-03-18] MEDS: 0.9 % Sodium Chloride Flush 3 ML SYRINGE IVFLUSH ×3 (09:16→21:06)
[2022-03-18] MEDS: oxyCODONE HCl Immed Release 5 MG TABLET PO ×2 (09:21→14:46)
[2022-03-18 12:00] VITALS: BP 130/63; PULSE 73; RESP 18; TEMP 37.4; O2SAT 95
--- NOTE | 2022-03-18 12:53 | PM.PNGS ---
Subjective Subjective Date of Service: 03/18/22 Interval history: feels good but would like to spend one more night to get stronger, not as much pain, breathing ok but still with some wheezing sounds - xray yesterday looked fine Physical Exam Vital Signs: Vital Signs: Last Vital Signs Temp 99.3 F 03/18/22 12:00 Pulse 73 03/18/22 12:00 Resp 18 03/18/22 12:00 BP 130/63 03/18/22 12:00 Pulse Ox 95 03/18/22 12:00 O2 Del Method 03/18/22 12:00 O2 Flow Rate 1.5 03/15/22 15:03 BMI result Body Mass Index 36.1 Const: General: cooperative, healthy appearing, comfortable and no acute distress Resp: Effort & Inspection: normal respiratory effort Auscultation: clear to auscultation bilaterally Cardio: Rate: regular rate Rhythm: regular rhythm GI: Other: soft nondistended = hernia repair area is bruised but looks good Objective Data Active Medications Acetaminophen (Acetaminophen 325 Mg Tablet) 650 mg PO Q6H PRN PRN Reason: FEVER/MILD PAIN Last Admin: 03/18/22 04:54 Dose: 650 mg Documented By: WHIT Bisacodyl (Bisacodyl 10 Mg Supp.Rect) 10 mg [place] Q24H PRN PRN Reason: Constipation Diazepam (Diazepam 2 Mg Tablet) 2 mg PO BID [facility] Last Admin: 03/18/22 09:13 Dose: 2 mg Documented By: GRACE Divalproex Sodium (Divalproex Sodium 500 Mg Tablet.) 500 mg PO BID [facility] Last Admin: 03/18/22 09:14 Dose: 500 mg Documented By: GRACE Heparin Sodium (Porcine) (Heparin Sodium,Porcine 5,000 Unit/Ml Vial) 5,000 unit SUBCUT Q12H [facility] Last Admin: 03/18/22 05:01 Dose: 5,000 unit Documented By: WHIT Hydromorphone HCl (Hydromorphone Hcl 0.5 Mg/0.5 Ml Syringe) 0.5 mg IVPUSH Q3H PRN; Protocol PRN Reason: Pain, Severe (Pain Scale 7-10) Ibuprofen (Ibuprofen 800 Mg Tablet) 800 mg PO Q8H PRN PRN Reason: FEVER/PAIN Lactulose (Lactulose 20 Gm/30 Ml Solution) 20 gm PO DAILY [facility] Last Admin: 03/18/22 09:14 Dose: 20 gm Documented By: GRACE Melatonin (Melatonin 3 Mg Tablet) 3 mg PO BEDTIME [facility] Last Admin: 03/17/22 21:05 Dose: 3 mg Documented By: WHIT Metoprolol Succinate (Metoprolol Succinate Er 25 Mg Tab.Er.24h) 25 mg PO BID [facility]; Protocol Last Admin: 03/18/22 09:13 Dose: 25 mg Documented By: GRACE Ondansetron HCl (Ondansetron Hcl 4 Mg/2 Ml Vial) 4 mg IVPUSH QID PRN PRN Reason: Nausea Oxycodone HCl (Oxycodone Hcl Immed Release 5 Mg Tablet) 5 mg PO Q4H PRN PRN Reason: Pain, Moderate (Pain Scale 4-6 Last Admin: 03/18/22 09:21 Dose: 5 mg Documented By: GRACE Polyethylene Glycol (Polyethylene Glycol 3350 17 Gm Powd.Pack) 17 gm PO BID [facility] Last Admin: 03/18/22 09:14 Dose: 17 gm Documented By: GRACE Polyethylene Glycol (Polyethylene Glycol 3350 17 Gm Powd.Pack) 17 gm PO Q24H PRN PRN Reason: Constipation Pregabalin (Pregabalin 100 Mg Capsule) 100 mg PO TID [facility] Last Admin: 03/18/22 09:13 Dose: 100 mg Documented By: GRACE Risperidone (Risperidone 0.25 Mg Tablet) 0.125 mg PO DAILY [facility] Last Admin: 03/18/22 09:15 Dose: 0.125 mg Documented By: GRACE Risperidone (Risperidone 0.25 Mg Tablet) 0.25 mg PO BEDTIME [facility] Last Admin: 03/17/22 21:05 Dose: 0.25 mg Documented By: WHIT Senna (Sennosides 8.6 Mg Tablet) 17.2 mg PO BEDTIME PRN PRN Reason: Constipation Sodium Chloride (0.9 % Sodium Chloride Flush 3 Ml Syringe) 3 ml IVFLUSH QSHIFT [facility] Last Admin: 03/18/22 09:16 Dose: 3 ml Documented By: GRACE Vitamin D (Cholecalciferol (Vitamin D3) 25 Mcg Tablet) 50 mcg PO DAILY [facility] Last Admin: 03/18/22 09:14 Dose: 50 mcg Documented By: GRACE Procedures Date of Service Date of Service: 03/18/22 Progress Note: A&P Assessment and plan (1) Incisional hernia without mention of obstruction or gangrene: Status: Acute Assessment and Plan: doing well sp hernia repair - cont with po diet and ambulating and po pain meds [facility] pt and his sister. Time Spent With Patient Time: Total time managing care of this patient today ____ minutes. Quality Stroke Does the patient have a stroke diagnosis?: No VTE Prior VTE?: No VTE Risk Level:: Surgical - moderate VTE Device Contraindication: N/A - Device Ordered VTE Drug Contraindication: N/A - Med Ordered
[2022-03-18 15:00] VITALS: BP 129/63; PULSE 73; RESP 18; TEMP 36.1; O2SAT 95
--- NOTE | 2022-03-18 15:01 | MHC.CM.PN ---
PER SURGICAL PT WILL D/C BACK TO [facility] TOMORROW 03/19, SNF [facility]PD[facility] AND CM SPOKE W/SISTER AT BEDSIDE WHO WILL TRANSPORT.
[2022-03-18 20:00] VITALS: BP 111/66; PULSE 79; RESP 18; TEMP 37.7; O2SAT 95
[2022-03-18] MEDS: risperiDONE 0.25 MG TABLET PO (21:05)
[2022-03-18] MEDS: Melatonin 3 MG TABLET PO (21:07)
[2022-03-18 23:58] VITALS: BP 118/64; PULSE 73; RESP 16; TEMP 36.9; O2SAT 93
[2022-03-19 03:40] VITALS: BP 112/64; PULSE 59; RESP 18; TEMP 36.8; O2SAT 95
[2022-03-19] MEDS: Heparin Sodium,Porcine 5,000 UNIT/ML VIAL 5000 UNIT SUBCUT (05:00)
[2022-03-19] MEDS: oxyCODONE HCl Immed Release 5 MG TABLET PO ×2 (07:40→14:13)
[2022-03-19] MEDS: Metoprolol Succinate ER 25 MG TAB.ER.24H PO (07:40)
[2022-03-19] MEDS: Pregabalin 100 MG CAPSULE PO ×2 (07:40→14:13)
[2022-03-19] MEDS: diazePAM 2 MG TABLET PO (07:41)
[2022-03-19] MEDS: Divalproex Sodium 500 MG TABLET.DR PO (07:41)
[2022-03-19] MEDS: risperiDONE 0.25 MG TABLET 0.125 MG PO (07:41)
[2022-03-19] MEDS: polyethylene glycoL 3350 17 GM POWD.PACK PO (07:42)
[2022-03-19] MEDS: Lactulose 20 GM/30 ML SOLUTION PO (07:42)
[2022-03-19 07:43] VITALS: BP 101/58; PULSE 63; RESP 18; TEMP 37; O2SAT 91
[2022-03-19] MEDS: Cholecalciferol (Vitamin D3) 25 MCG TABLET 50 MCG PO (07:44)
[2022-03-19] MEDS: 0.9 % Sodium Chloride Flush 3 ML SYRINGE IVFLUSH ×2 (07:46→14:14)
--- NOTE | 2022-03-19 11:53 | P.CONHOSP_ITS ---
History of Present Illness Data of Consult Service Date: 03/19/22 Primary Care Provider: Augustine Dan DO HPI Reason for consult: Wheezing, edema Patient is a 57-year-old male with PMH significant seizure disorder, neuroleptic malignant syndrome, cognitive impairment, the and a resident of [facility] who presented to the hospital with an abdominal hernia that was noted after abdominal surgery for rectal prolapse. Patient underwent successful repair of incisional hernia with mesh on 03/14/2022. Patient was kept inpatient due to size of hernia for pain control. Patient seen today for evaluation for increasing right-sided edema and wheezing. Patient's sister at bedside who has a long history of taking care of her brother and helps provide HPI. Pt has been experiencing increasing swelling on the entire right side, including upper and lower extremities. Pt's sister noted swelling on his side when she repositioned him last night. States swelling particularly apparent in foot and hands. Sister also notes he is not back to baseline with ambulation, and occasionally stiffens up when walking around the halls. Pt has also been having increased urinary frequency and urgency with dark noris colored urine. No dysuria, hematuria. Pt denies chest pain/pressure, palpitations. No SOB. Abdominal tenderness at incisional sites. No numbness and tingling in extremities. Of note, there is no record of blood work/labs on pt for this admission. Review of Systems Review of Systems: Yes all other systems are reviewed and are negative [facility] Medical History Bilateral cataracts Cognitive impairment Deformity of left hand Depression Diverticular disease Epilepsy Flexion contractures Generalized anxiety disorder History of GI bleed History of hemodialysis Hx of deep venous thrombosis Hypertension Major depressive disorder Mild cognitive impairment Neuroleptic malignant syndrome OCD (obsessive compulsive disorder) Osteoarthritis Personal history of COVID-19 Rectal prolapse Resides in group home facility Seizure disorder Thrombocytopenia Urinary incontinence Family History Sister Breast CA, Onset Age: 51 Ovarian ca, Onset Age: 55 Father Prostate CA, Onset Age: 70 Mother Colorectal cancer, Onset Age: 39 Kidney carcinoma, Onset Age: 67 Maternal Grandmother Colorectal cancer, Onset Age: 70 Maternal Aunt Colorectal cancer Surgical History History of repair of rectocele Hx of appendectomy Hx of colonoscopy Social History Household Members: Caregiver Household Members Other:: Nursing facility Housing: Prison Housing Other:: group home facility[phone] Are you a primary day care center director to a significant other at home: No Do you presently have visiting nurse or other home services: Yes (as above noted) Unable to assess alcohol history related to: Unable to respond Alcohol intake: never Patient Tobacco Use Status: Never used Tobacco Second Hand Smoke Exposure: No Use of substances other than those prescribed or required for medical reasons: No Currently Displaying Signs/Symptoms of Drug Intoxication Withdrawal: No Are you DNR?: No Advance Directives: Yes Advance Directives Information Provided: Yes Advance Directives on File: Yes Advance Directives Date on File: 11/21/19 Recently lost weight without trying: No Eating poorly because of decreased appetite: No service: No Current occupational status: disabled Meds Allergies Allergy/AdvReac Type Severity Reaction Status Date / Time aripiprazole [From ABILIFY] Allergy Severe Involuntary Verified 03/15/22 07:19 Spasms droperidol [From INAPSINE] Allergy Severe Involuntary Verified 03/15/22 07:22 Spasms haloperidol [From HALDOL] Allergy Severe Involuntary Verified 03/15/22 07:22 Spasms prochlorperazine Allergy Severe Involuntary Verified 03/15/22 07:22 [From COMPAZINE] Spasms promethazine [From PHENERGAN] Allergy Severe Involuntary Verified 03/15/22 07:22 Spasms sulfamethoxazole Allergy Severe Anaphylaxis Verified 03/15/22 07:21 [From BACTRIM] trimethoprim [From BACTRIM] Allergy Severe Anaphylaxis Verified 03/15/22 07:20 Active Medications: Current Medications Acetaminophen (Acetaminophen 325 Mg Tablet) 650 mg PO Q6H PRN PRN Reason: FEVER/MILD PAIN Last Admin: 03/18/22 21:05 Dose: 650 mg Bisacodyl (Bisacodyl 10 Mg Supp.Rect) 10 mg [place] Q24H PRN PRN Reason: Constipation Diazepam (Diazepam 2 Mg Tablet) 2 mg PO BID [facility] Last Admin: 03/19/22 07:41 Dose: 2 mg Divalproex Sodium (Divalproex Sodium 500 Mg Tablet.Dr) 500 mg PO BID [facility] Last Admin: 03/19/22 07:41 Dose: 500 mg Heparin Sodium (Porcine) (Heparin Sodium,Porcine 5,000 Unit/Ml Vial) 5,000 unit SUBCUT Q12H [facility] Last Admin: 03/19/22 05:00 Dose: 5,000 unit Hydromorphone HCl (Hydromorphone Hcl 0.5 Mg/0.5 Ml Syringe) 0.5 mg IVPUSH Q3H PRN; Protocol PRN Reason: Pain, Severe (Pain Scale 7-10) Ibuprofen (Ibuprofen 800 Mg Tablet) 800 mg PO Q8H PRN PRN Reason: FEVER/PAIN Lactulose (Lactulose 20 Gm/30 Ml Solution) 20 gm PO DAILY [facility] Last Admin: 03/19/22 07:42 Dose: 20 gm Melatonin (Melatonin 3 Mg Tablet) 3 mg PO BEDTIME [facility] Last Admin: 03/18/22 21:07 Dose: 3 mg Metoprolol Succinate (Metoprolol Succinate Er 25 Mg Tab.Er.24h) 25 mg PO BID [facility]; Protocol Last Admin: 03/19/22 07:40 Dose: 25 mg Ondansetron HCl (Ondansetron Hcl 4 Mg/2 Ml Vial) 4 mg IVPUSH QID PRN PRN Reason: Nausea Oxycodone HCl (Oxycodone Hcl Immed Release 5 Mg Tablet) 5 mg PO Q4H PRN PRN Reason: Pain, Moderate (Pain Scale 4-6 Last Admin: 03/19/22 07:40 Dose: 5 mg Polyethylene Glycol (Polyethylene Glycol 3350 17 Gm Powd.Pack) 17 gm PO BID [facility] Last Admin: 03/19/22 07:42 Dose: 17 gm Polyethylene Glycol (Polyethylene Glycol 3350 17 Gm Powd.Pack) 17 gm PO Q24H PRN PRN Reason: Constipation Pregabalin (Pregabalin 100 Mg Capsule) 100 mg PO TID [facility] Last Admin: 03/19/22 07:40 Dose: 100 mg Risperidone (Risperidone 0.25 Mg Tablet) 0.125 mg PO DAILY [facility] Last Admin: 03/19/22 07:41 Dose: 0.125 mg Risperidone (Risperidone 0.25 Mg Tablet) 0.25 mg PO BEDTIME [facility] Last Admin: 03/18/22 21:05 Dose: 0.25 mg Senna (Sennosides 8.6 Mg Tablet) 17.2 mg PO BEDTIME PRN PRN Reason: Constipation Sodium Chloride (0.9 % Sodium Chloride Flush 3 Ml Syringe) 3 ml IVFLUSH QSHIFT [facility] Last Admin: 03/19/22 07:46 Dose: 3 ml Vitamin D (Cholecalciferol (Vitamin D3) 25 Mcg Tablet) 50 mcg PO DAILY [facility] Last Admin: 03/19/22 07:44 Dose: 50 mcg Home Medications Medication Instructions Recorded Confirmed Last Taken Type diazepam 2 mg tablet 2 mg PO BID 11/17/19 03/09/22 03/15/22 History melatonin 1 mg tablet 1 mg PO BEDTIME 11/17/19 03/09/22 11/16/19 History acetaminophen 500 mg tablet 500 mg PO Q6H PRN FEVER/MILD PAIN 02/13/20 03/09/22 Unknown History bisacodyl 10 mg rectal suppository 10 mg [place] Q24H PRN Constipation 02/13/20 03/09/22 Unknown History cholecalciferol (vitamin D3) 25 50 mcg PO DAILY 02/13/20 03/09/22 Unknown Histo ry mcg (1,000 unit) tablet divalproex 500 mg tablet,delayed 500 mg PO BID 02/13/20 03/09/22 Unknown History release ibuprofen 800 mg tablet 800 mg PO Q8H PRN FEVER/PAIN 02/13/20 03/09/22 Unknown History lidocaine 5 % topical ointment 1 appl topical Q6H PRN Constipation 02/13/20 03/09/22 Unknown History polyethylene glycol 3350 17 17 g PO Q24H PRN Constipation 02/13/20 03/09/22 Unknown History gram/dose oral powder pregabalin 100 mg capsule 100 mg PO TID 02/13/20 03/09/22 03/15/22 History sennosides 8.6 mg-docusate sodium 1 tab-cap PO BEDTIME 02/13/20 03/09/22 Unknown History 50 mg capsule (Senna Plus) sennosides 8.6 mg-docusate sodium 1 tab-cap PO Q24H PRN Constipation 02/13/20 03/09/22 Unknown History 50 mg capsule (Senna Plus) witch monica 50 % topical pads 1 pad topical Q24H PRN Hemorrhoids 02/13/20 03/09/22 Unknown History lactulose 10 gram/15 mL (15 mL) 30 ml PO DAILY 03/09/22 03/09/22 Unknown History oral solution metoprolol succinate 25 mg capsule 25 mg PO BID 03/09/22 03/09/22 03/15/22 History sprinkle, ext. release 24 hr polyethylene glycol 3350 17 17 g PO BID 03/09/22 03/09/22 Unknown History gram/dose oral powder (Miralax) risperidone 0.25 mg tablet 0.125 mg PO QAM 03/09/22 03/09/22 03/15/22 History risperidone 0.25 mg tablet 0.25 mg PO BEDTIME 03/09/22 03/09/22 Unknown History Physical Exam Vital Signs and Narrative: Vital Signs: Last Vital Signs Temp 98.6 F 03/19/22 07:43 Pulse 63 03/19/22 07:43 Resp 18 03/19/22 07:43 BP 101/58 L 03/19/22 07:43 Pulse Ox 91 L 03/19/22 07:43 O2 Del Method 03/19/22 07:43 O2 Flow Rate 1.5 03/15/22 15:03 BMI result Body Mass Index 36.1 General: AOx3, no acute distress Resp: Mild expiratory wheezing bilaterally CVS: S1, S2, RRR GI: +BS, NT, no distention Skin: No rash Neuro: Cranial nerves II-XII grossly intact. Motor grossly intact Extremities: Some increased non-pitting swelling on right side of upper and lower extremities. No erythema, warmth, tenderness Psych: Appropriate affect Assessment and Plan (1) Wheezing: Status: Acute (2) Swelling of right upper extremity: Status: Acute (3) Swelling of right lower extremity: Status: Acute Plan Patient is a 57-year-old male with PMH significant seizure disorder, neuroleptic malignant syndrome, cognitive impairment, the and a resident of [facility] who presented to the hospital with an abdominal hernia that was noted after abdominal surgery for rectal prolapse. Patient underwent successful repair of incisional hernia with mesh on 03/14/2022. Patient was kept inpatient due to size of hernia for pain control. Patient seen today for evaluation for increasing right-sided edema and wheezing. Right-sided swelling Non-pitting swelling, not erythematous or warm Check CBC, BMP, BNP Wheezing Pt with no hx of asthma or COPD CXR clear Incentive spirometry with 10-15 breaths every 1-2 hours Polyuria Patient with increased frequency and urgency, no dysuria, afebrile Check UA Difficulty with ambulation Patient is back baseline with ambulation, per sister PT evaluation Attending:?Dr. Gross Thank you for allowing us to participate in the care of this pt. We will follow at this time. Please let us know if there are any acute questions or concerns. Time Spent With Patient Time: Total time managing care of this patient today ____ minutes.
[2022-03-19 12:00] VITALS: BP 115/63; PULSE 69; RESP 16; TEMP 37; O2SAT 94
[2022-03-19 12:49] LABS: Hemoglobin 11.6 g/dl (14.0-18.0); Mean Corpuscular HGB Conc 32.2 g/dl (31.0-36.0); Mean Corpuscular Hemoglobin 30.1 pg (27.0-33.0); Mean Corpuscular Volume 93.3 fL (80.0-98.0); Mean Platelet Volume 11.4 fL (9.4-12.4); Platelet Count 108 X10*3/uL (160-400); Red Blood Count 3.86 X10*6/uL (4.60-5.80); Red Cell Distribution Width 13.5 % (11.0-16.0); White Blood Count 4.8 X10*3/uL (4.8-10.8)
[2022-03-19 12:50] LABS: Anion Gap 13 (12-20); Blood Urea Nitrogen 17 mg/dL (9-16); Calcium 8.5 mg/dL (8.4-10.2); Carbon Dioxide 30 mmol/L (22-29); Chloride 107 mmol/L (96-108); Creatinine Clr Calc Pharmacy 123.7; Estimated Glomerular Filt Rate > 60; Glucose Random 111 mg/dL (60-115); Potassium 4.2 mmol/L (3.3-5.1); Sodium 146 mmol/L (135-145)
[2022-03-19 12:58] LABS: B Type Natriuretic Peptide 57 pg/mL (<100)
[2022-03-19 15:05] VITALS: BP 128/76; PULSE 87; RESP 18; TEMP 37.1; O2SAT 97
[2022-03-19 15:05] LABS: Appearance Urine Clear; Color Urine Yellow; Glucose Urine UA Negative (Negative); Leukocyte Esterase Urine Trace (Negative); Nitrite Urine Negative (Negative); PH 5.5 (5.0-9.0); Specific Gravity - Urine 1.025 (1.005-1.025); UMIC TRIGGER UA YES; Urine Blood Negative (Negative); Urine Ketones Trace mg/dL (Negative); Urine Protein Trace mg/dL (Neg-Trace)
[2022-03-19 15:07] LABS: Bacteria Urine None Seen (None Seen); Hyaline Casts Urine 0-2 /LPF (0-2); RBC Urine 0-2 /HPF (0-2)
== END 2022-03-19 18:20 | disposition skilled nursing facility (03) | DRG 355 ==
LOC: HO.SSSA 09:03 → HO.S3 12:27
PROVIDERS: Student in an Organized Health Care Education/Training Program; Admitting Provider Surgery; PCP Hospitalist; Visit Provider Surgery
PROC: 0WUF0JZ Supplement Abdominal Wall with Synthetic Substitute, Open Approach (ICD-10-PCS; principal; 2022-03-15 09:10)
DX: K43.2 Incisional hernia without obstruction or gangrene (principal); F41.1 Generalized anxiety disorder; G40.909 Epilepsy, unspecified, not intractable, without status epilepticus; F32.9 Major depressive disorder, single episode, unspecified; F42.9 Obsessive-compulsive disorder, unspecified; Z20.822 Contact with and (suspected) exposure to COVID-19; Z86.16 Personal history of COVID-19; Z88.8 Allergy status to other drugs, medicaments and biological substances; Z79.899 Other long term (current) drug therapy
CPT/HCPCS: 36415; 71045; 80048; 81001; 83880; 85027; 87635; 88302; C1781; C9088; J0131; J0690; J1100; J1643; J1885; J2405; J3010

== ENCOUNTER → 2022-03-24 10:46 | Outpatient (BNVA) | payer OTHER, SELFPAY | PROVIDERS: PCP Hospitalist; Referring Provider Hospitalist; Visit Provider Surgery | DX: Z13.89 Encounter for screening for other disorder (principal) ==

== ENCOUNTER → 2022-04-20 12:49 | Outpatient (BNVA) | payer OTHER, SELFPAY | PROVIDERS: PCP Hospitalist; Visit Provider Surgery | DX: Z13.89 Encounter for screening for other disorder (principal) ==

== ENCOUNTER 2022-04-22 18:29 | Inpatient (IN) | payer MEDICAID, SELFPAY ==
[2022-04-22] VITALS (10 sets, daily range): BP systolic 108–163; BP diastolic 73–99; PULSE 90–132; RESP 20–33; TEMP 38.5–39.6; O2SAT 94–100; BMI 38.4
--- NOTE | ~2022-04-22 | CT_ITS ---
EXAMINATION: CT HEAD WITHOUT CONTRAST CLINICAL INFORMATION: Change in mental status. COMPARISON: None. TECHNIQUE: Contiguous axial imaging was performed from the skull base to vertex without intravenous contrast. This CT examination was performed using dose optimization techniques as appropriate, variously including the following: * Automated exposure control * Adjustment of mA and/or kV according to patient size (this includes techniques or standardized protocols for targeted exams where dose is matched to indication/reason for exam; i.e. extremities or head) Use of iterative reconstruction technique DLP: 882 mGy-cm. FINDINGS: There is no evidence of acute intracranial hemorrhage or territorial infarction. No abnormal mass effect or midline shift is seen. [place] to white matter differentiation is well preserved. No extra-axial fluid collections are identified. There is mild global cerebral volume loss. There is ventricular prominence which appears to be out of proportion to sulcal prominence.. There is no abnormal attenuation within the brain parenchyma. The osseous structures and soft tissues are normal. Partially opacified left and ethmoid air cells and left maxillary sinus. The mastoid air cells and visualized portions of the paranasal sinuses are otherwise well aerated. CT/CT head/brain wo IV con IMPRESSION: 1. No acute intracranial pathology. 2. Ventricular prominence which appears to be out of proportion to sulcal prominence. Correlate for normal pressure hydrocephalus.
--- NOTE | ~2022-04-22 | CT_ITS ---
EXAMINATION: CT ANGIOGRAM OF THE CHEST WITH AND WITHOUT CONTRAST (CT PULMONARY ANGIOGRAM FOR PE) CLINICAL INFORMATION: Reason for Exam Fever, hypoxic, rule out PE, pneumonia, COVID + COMPARISON: Chest radiograph from today. CT 06/07/2016. TECHNIQUE: Prior to contrast administration, noncontrast localization images were obtained. Subsequently, multidetector volumetric imaging was performed from the thoracic inlet to below the diaphragms following the administration of 65 mL Omnipaque 350 intravenous contrast. No contrast reaction reported Sagittal, coronal, and MIP oblique sagittal reformatted images were obtained on the CT workstation, uploaded to PACS, and reviewed. This CT examination was performed using dose optimization techniques as appropriate, variously including the following: *Automated exposure control *Adjustment of mA and/or kV according to patient size (this includes techniques or standardized protocols for targeted exams where dose is matched to indication/reason for exam; i.e. extremities or head) *Use of iterative reconstruction technique Total exam dose-length product 655 mGy-cm FINDINGS: QUALITY OF STUDY/CONTRAST BOLUS: Satisfactory. PULMONARY ARTERIES: No central or segmental pulmonary emboli. THORACIC AORTA: No aneurysm or dissection. LUNG: Motion limited evaluation. The central airways are patent. Right lower lobe atelectasis posteriorly. No pulmonary nodules. PLEURA: No pleural effusion or pneumothorax. MEDIASTINUM: Normal heart size. No pericardial effusion. No hilar or mediastinal lymphadenopathy. No evidence of septal bowing or right heart strain. CORONARY ARTERY CALCIFICATION: None visualized on this study. CHEST WALL/AXILLA: No axillary or internal mammary lymphadenopathy. OSSEOUS STRUCTURES: No acute or suspicious osseous abnormality. Mild degenerative change throughout the spine. UPPER ABDOMEN: Unremarkable. No reflux of contrast into the hepatic veins to suggest elevated right heart pressures. CT/CT angio chest PE protocol IMPRESSION: No pulmonary embolism. Right lower lobe opacity favors atelectasis at the costophrenic angle.. VTE: negative
--- NOTE | ~2022-04-22 | XR_ITS ---
EXAMINATION: XR CHEST CLINICAL INFORMATION: Cough. COMPARISON: None available. TECHNIQUE: Frontal view of the chest was obtained. 7:29 PM FINDINGS: Lung volume is low. No pulmonary vascular congestion allowing for low inspiratory effort. No focal consolidation. No pleural effusion or pneumothorax. XR/XR chest 1V IMPRESSION: No acute abnormality of chest.
--- NOTE | 2022-04-22 19:28 | PC.NURSE ---
assdumed care of pt expressed he needed help O2Sat on nonrebreather 97% mod tremors pt was soiled linens changed, pt cleaned and dried, repositioned attempting to obtain urine a&o
--- NOTE | 2022-04-22 19:35 | ED_ITS ---
HPI - Fever General Chief Complaint: Dyspnea Stated Complaint: TREMORS Time Seen by Provider: 04/22/22 19:17 Source: RN notes reviewed Mode of arrival: EMS Limitations: other (Patient has limited verbal ability) History of Present Illness HPI Narrative: 57-year-old male resident of [facility] who was sent to the emergency department for evaluation of increased, tremors which were described as a ?violent tremors ?. The patient's transfer papers were reviewed. Following information was obtained ?resident shaking, and appears very scared, cannot relax, slow to respond, denies pain. ?The patient was able to tell me his name, he is very slow to respond to questions. He does have a resting tremor but does not appear to be shaking violently at the time of my evaluation. Patient is able to move all his extremities symmetrically. The ED nurse reports that the paramedics found the patient to be hypoxic with an O2 saturation of 84% on room air. Patient was found to be febrile here in the emergency department with a temperature of a 103 degrees F. The [facility] did call the ED and reported that the patient tested COVID positive today just prior to being transferred to our facility. I did speak to the patient's sister, Elizabeth Iraheta. 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 She states that he gets fever but also gets severe behavioral changes were he screams, tears off his clothes and is out of control. She states that he had a hernia repair 1 month prior but not developed any symptoms after the surgery. She states that he has been in the nursing facility for chronic care secondary to his weakness which developed after he had neuroleptics malignant syndrome. He can dress himself, feed himself and walk with a walker. His sister can be reached at home: or on her cellphone listed under next of kin. Related Data Home Medications Medication Instructions Recorded Confirmed diazepam 2 mg tablet 2 mg PO BID 11/17/19 04/20/22 melatonin 1 mg tablet 1 mg PO BEDTIME 11/17/19 04/20/22 acetaminophen 500 mg tablet 500 mg PO Q6H PRN FEVER/MILD PAIN 02/13/20 04/20/22 bisacodyl 10 mg rectal suppository 10 mg VT Q24H PRN Constipation 02/13/20 04/20/22 cholecalciferol (vitamin D3) 25 50 mcg PO DAILY 02/13/20 04/20/22 mcg (1,000 unit) tablet divalproex 500 mg tablet,delayed 500 mg PO BID 02/13/20 04/20/22 release ibuprofen 800 mg tablet 800 mg PO Q8H PRN FEVER/PAIN 02/13/20 04/20/22 polyethylene glycol 3350 17 17 g PO Q24H PRN Constipation 02/13/20 04/20/22 gram/dose oral powder pregabalin 100 mg capsule 100 mg PO TID 02/13/20 04/20/22 sennosides 8.6 mg-docusate sodium 1 tab-cap PO BEDTIME 02/13/20 04/20/22 50 mg capsule (Senna Plus) sennosides 8.6 mg-docusate sodium 1 tab-cap PO Q24H PRN Constipation 02/13/20 04/20/22 50 mg capsule (Senna Plus) witch monica 50 % topical pads 1 pad topical Q24H PRN Hemorrhoids 02/13/20 04/20/22 lactulose 10 gram/15 mL (15 mL) 30 ml PO DAILY 03/09/22 04/20/22 oral solution metoprolol succinate 25 mg capsule 25 mg PO BID 03/09/22 04/20/22 sprinkle, ext. release 24 hr polyethylene glycol 3350 17 17 g PO BID 03/09/22 04/20/22 gram/dose oral powder (Miralax) risperidone 0.25 mg tablet 0.125 mg PO QAM 03/09/22 04/20/22 risperidone 0.25 mg tablet 0.25 mg PO BEDTIME 03/09/22 04/20/22 diazepam 2 mg tablet 2 mg PO BID PRN 03/24/22 04/20/22 divalproex 500 mg tablet,extended 500 mg PO DAILY 04/20/22 04/20/22 release 24 hr (Depakote ER) Previous Rx's Medication Instructions Recorded abdominal binder #1 ea 03/21/22 Allergies Allergy/AdvReac Type Severity Reaction Status Date / Time aripiprazole [From ABILIFY] Allergy Severe Involuntary Verified 04/20/22 13:01 Spasms droperidol [From INAPSINE] Allergy Severe Involuntary Verified 04/20/22 13:01 Spasms haloperidol [From HALDOL] Allergy Severe Involuntary Verified 04/20/22 13:01 Spasms prochlorperazine Allergy Severe Involuntary Verified 04/20/22 13:01 [From COMPAZINE] Spasms promethazine [From PHENERGAN] Allergy Severe Involuntary Verified 04/20/22 13:01 Spasms sulfamethoxazole Allergy Severe Anaphylaxis Verified 04/20/22 13:01 [From BACTRIM] trimethoprim [From BACTRIM] Allergy Severe Anaphylaxis Verified 04/20/22 13:01 Review of Systems Review of Systems: Yes Unobtainable due to mental status PMFSH Past Medical History [facility] Narrative: Past medical history: Reviewed. Social history: The patient is a resident at [facility]. Medical History Bilateral cataracts Cognitive impairment Deformity of left hand Depression Diverticular disease Epilepsy Flexion contractures Generalized anxiety disorder History of GI bleed History of hemodialysis Hx of deep venous thrombosis Hypertension Major depressive disorder Mild cognitive impairment Neuroleptic malignant syndrome OCD (obsessive compulsive disorder) Osteoarthritis Personal history of COVID-19 Rectal prolapse Resides in [facility] facility Seizure disorder Thrombocytopenia Urinary incontinence Surgical History History of incisional hernia repair (03/15/22) History of repair of rectocele Hx of appendectomy Hx of colonoscopy Family History Family History Sister Breast CA, Onset Age: 51 Ovarian ca, Onset Age: 55 Father Prostate CA, Onset Age: 70 Mother Colorectal cancer, Onset Age: 39 Kidney carcinoma, Onset Age: 67 Maternal Grandmother Colorectal cancer, Onset Age: 70 Maternal Aunt Colorectal cancer Social History Social History Household Members: Caregiver Household Members Other:: Nursing facility Housing: [facility] Housing Other:: [phone] Are you a primary health care marketing manager to a significant other at home: No Do you presently have visiting nurse or other home services: Yes (as above noted) Unable to assess alcohol history related to: Unable to respond Alcohol intake: never Patient Tobacco Use Status: Never used Tobacco Smoked in Last 30 Days: No Second Hand Smoke Exposure: No Use of substances other than those prescribed or required for medical reasons: No Advance Directives: Yes Advance Directives on File: Yes Advance Directives Date on File: 11/21/19 service: No Current occupational status: disabled Physical Exam Vital Signs: Vital Signs: Last Vital Signs Temp 101.3 F H 04/22/22 22:12 Pulse 102 H 04/22/22 21:13 Resp 28 H 04/22/22 21:13 BP 129/73 04/22/22 21:43 Pulse Ox 94 04/22/22 21:25 O2 Del Method 04/22/22 21:25 O2 Flow Rate 2 04/22/22 21:25 Oxygen Flow Rate 10 04/22/22 18:43 BMI result Body Mass Index 38.4 194: Vital signs reviewed, patient meets SIRS criteria General: Awake, alert male patient, slow to respond to questions, does not appear to be in distress HEENT: Head is normal cephalic atraumatic, pupils were equal round reactive light, sclera contact however normal, mouth revealed moist membranes Neck: Supple Lungs: Diminished breath sounds at the bases right greater than left, no wheezing, rales at the bases symmetric, no rhonchi Abdomen: Soft, nontender, nondistended, normoactive bowel sounds, obese Heart: Tachycardia, normal S1-S2, no murmurs rubs or gallops Extremities: Patient is able to move his legs side to side but has weakness and has difficulty holding his legs up against gravity, patient has symmetric strength his upper extremities but again has difficulty holding his arms up against gravity Neurologic exam: Patient is oriented to person, his speech is limited, unclear if this is baseline. Cranial nerves are intact, strength is symmetric but weak Medications Administered Discontinued Medications Generic Name Dose Route Start Last Admin Trade Name Freq PRN Reason Stop Dose Admin Acetaminophen 975 mg 04/22/22 20:05 04/22/22 20:22 Acetaminophen 325 Mg Tablet PO 04/22/22 20:06 975 mg ONCE STA Administration Dexamethasone Sodium Phosphate 6 mg 04/22/22 22:26 04/22/22 23:22 Dexamethasone Sod Phosphate 4 Mg/Ml Vial IVPUSH 04/22/22 22:27 6 mg ONCE ONE Administration Piperacillin Sod/Tazobactam 100 mls @ 200 mls/hr 04/22/22 19:34 04/22/22 20:48 Sod 4.5 gm/ Sodium Chloride IV 04/22/22 20:03 Infused ONCE ONE Infusion Sodium Chloride 1,983 mls @ 1,983 mls/hr 04/22/22 19:54 04/22/22 21:17 Ns IV 04/22/22 20:53 Infused .Q1H STA Infusion Ibuprofen 600 mg 04/22/22 21:49 04/22/22 22:23 Ibuprofen 600 Mg Tablet PO 04/22/22 21:50 600 mg ONCE STA Administration Iohexol 100 ml 04/22/22 22:28 04/22/22 22:34 Iohexol 350 Mg/Ml 100 Ml Infus..Btl IV 04/22/22 22:29 65 ml ONCE ONE Administration Medical Decision Making Medical Decision Making MDM Narrative: 57-year-old male who was sent to the emergency department from his [facility] facility for evaluation of shaking violently. Patient was reported to be hypoxic with an O2 saturation of 84% on room air. On a non-rebreather mass the patient's O2 saturation is 100%. Patient turned COVID positive today just prior to coming to the emergency department according to nursing staff. The patient has limited ability to speak, it is unclear if this is baseline, he has generalized weakness which again it is unclear if this is baseline. Lung exam did reveal diminished breath sounds at the bases with rales at the bases right greater than left. Patient did meet SIRS criteria with temperature of a 103 degrees F, respiratory rate of 32 and pulse of 132. I did order laboratory evaluation to include CBC, CMP, lactic acid, PT/INR, PTT, troponin, urinalysis, COVID-19, influenza. I also ordered an EKG and a chest x-ray. I am concerned the patient may have an aspiration pneumonia therefore I did order Zosyn 4.[address] scan of the patient's brain and CT pulmonary angiogram PE protocol also be obtained. Patient was ordered to get normal saline IV 30 cc/kilogram bolus. 2328: My Laboratory interpretation: WBC was normal 4900. Platelet count was low 82,000 this is chronic. CMP was normal. Lactate was normal 0.7 COVID-19 was positive, influenza negative. My interpretation the patient's chest x-ray was possible right lower lobe infiltrate. Radiologist interpretation was no acute disease. Given the patient's hypoxia, CT scan pulmonary embolism protocol was obtained, radiologist interpreted this as no acute PE, possible right lower lobe infiltrate. The patient does have hypoxia on room air with O2 saturations 80%, on 2-4 L the patient's O2 saturation is 90 T to 96%. At this time, I do not have a clear etiology for his severe hypoxia, it is possible that it may be secondary to COVID pneumonia however the CT scan did not reveal diffuse infiltrates as expected. Patient was ordered to get dexamethasone 6 mg IV. I will discuss the patient's presentation with the covering hospitalist. Differential Diagnosis Differential diagnosis includes was not limited to COVID-19 pneumonia, aspiration pneumonia, pulmonary embolism, pulmonary edema, stroke, cerebral bleed, viral syndrome, seizure, rigors Consult Healthcare Provider Management of the patient was discussed with: Hospitalist (Dr. Snyder) Lab Data [facility] Lab Attestation statement: I reviewed the patient's lab results. See [facility] for discussion 04/22/22 20:09 04/22/22 20:09 Labs: Lab Results 04/22/22 04/22/22 04/22/22 Range/Units 19:51 19:51 20:09 WBC 4.9 (4.8-10.8) X10*3/uL RBC 4.50 L (4.60-5.80) X10*6/uL Hgb 13.5 L (14.0-18.0) g/dl Hct 42.1 (42.0-52.0) % MCV 93.6 (80.0-98.0) fL MCH 30.0 (27.0-33.0) pg MCHC 32.1 (31.0-36.0) g/dl RDW 13.8 (11.0-16.0) % Plt Count 82 L (160-400) X10*3/uL MPV 10.7 (9.4-12.4) fL Immature Gran % (Auto) 0.4 (0.0-0.4) % Neut % (Auto) 66.4 (45-73) % Lymph % (Auto) 16.1 L (20-40) % [place] % (Auto) 14.5 H (2-11) % Eos % (Auto) 2.2 (0-4) % Baso % (Auto) 0.4 (0-2) % Lymph # (Auto) 0.8 L (1.2-4.9) X10*3/uL [place] # (Auto) 0.7 (0.1-1.2) X10*3/uL Eos # (Auto) 0.1 (0.0-0.4) X10*3/uL Baso # (Auto) 0.0 (0.0-0.2) X10*3/uL Abs Immat Gran (auto) 0.02 (0.00-0.03) X10*3/uL Absolute Neuts (auto) 3.3 (2.0-8.3) x10*3/uL Absolute Nucleated RBC 0.000 (0.0-0.012) X10*3/uL Nucleated RBC % (auto) 0.0 (0.0-0.2) /100WBC Smear Tech's Comments VERIFIED PT (10.0-13.1) SEC INR (0.9-1.1) APTT (26.0-36.4) SEC Sodium (135-145) mmol/L Potassium (3.3-5.1) mmol/L Chloride (96-108) mmol/L Carbon Dioxide (22-29) mmol/L Anion Gap (12-20) BUN (9-16) mg/dL Creatinine (0.5-1.4) mg/dL Estim Creat Clear Calc Estimated GFR Random Glucose (60-115) mg/dL Lactic Acid (0.5-2.0) mmol/L Calcium (8.4-10.2) mg/dL Total Bilirubin (0.0-1.0) mg/dL AST (5-37) U/L ALT (0-40) U/L Alkaline Phosphatase (39-117) U/L Troponin I High Sens (<3.5-35.0) ng/L Total Protein (6.5-8.0) g/dL Albumin (3.5-5.0) g/dL Urine Color Urine Appearance Urine pH (5.0-9.0) Ur Specific Emmet (1.005-1.025) Urine Protein (Neg-Trace) mg/dL Urine Glucose (UA) (Negative) mg/dL Urine Ketones (Negative) mg/dL Urine Blood (Negative) Urine Nitrite (Negative) Ur Leukocyte Esterase (Negative) Urine RBC (0-2) /HPF Urine WBC (0-5) /HPF Ur Squamous Epith Cells (0-2) /HPF Urine Bacteria (None Seen) Hyaline Casts (0-2) /LPF COVID-19 (DIGEO) Positive A (Negative) COVID-19 Clin Com See Note Influenza Type A (LENCHO) Negative (Negative) Influenza Type B (LENCHO) Negative (Negative) Influenza A & B Note See Note 04/22/22 04/22/22 04/22/22 Range/Units 20:09 20:09 20:09 WBC (4.8-10.8) X10*3/uL RBC (4.60-5.80) X10*6/uL Hgb (14.0-18.0) g/dl Hct (42.0-52.0) % MCV (80.0-98.0) fL MCH (27.0-33.0) pg MCHC (31.0-36.0) g/dl RDW (11.0-16.0) % Plt Count (160-400) X10*3/uL MPV (9.4-12.4) fL Immature Gran % (Auto) (0.0-0.4) % Neut % (Auto) (45-73) % Lymph % (Auto) (20-40) % [place] % (Auto) (2-11) % Eos % (Auto) (0-4) % Baso % (Auto) (0-2) % Lymph # (Auto) (1.2-4.9) X10*3/uL [place] # (Auto) (0.1-1.2) X10*3/uL Eos # (Auto) (0.0-0.4) X10*3/uL Baso # (Auto) (0.0-0.2) X10*3/uL Abs Immat Gran (auto) (0.00-0.03) X10*3/uL Absolute Neuts (auto) (2.0-8.3) x10*3/uL Absolute Nucleated RBC (0.0-0.012) X10*3/uL Nucleated RBC % (auto) (0.0-0.2) /100WBC Smear Tech's Comments PT 13.4 H (10.0-13.1) SEC INR 1.2 H (0.9-1.1) APTT 34.4 (26.0-36.4) SEC Sodium 144 (135-145) mmol/L Potassium 4.8 (3.3-5.1) mmol/L Chloride 106 (96-108) mmol/L Carbon Dioxide 27 (22-29) mmol/L Anion Gap 16 (12-20) BUN 15 (9-16) mg/dL Creatinine 0.86 (0.5-1.4) mg/dL Estim Creat Clear Calc 112.7 Estimated GFR > 60 Random Glucose 96 (60-115) mg/dL Lactic Acid (0.5-2.0) mmol/L Calcium 8.2 L (8.4-10.2) mg/dL Total Bilirubin 0.5 (0.0-1.0) mg/dL AST 22 (5-37) U/L ALT 10 (0-40) U/L Alkaline Phosphatase 42 (39-117) U/L Troponin I High Sens < 3.5 (<3.5-35.0) ng/L Total Protein 6.3 L (6.5-8.0) g/dL Albumin 3.3 L (3.5-5.0) g/dL Urine Color Urine Appearance Urine pH (5.0-9.0) Ur Specific Emmet (1.005-1.025) Urine Protein (Neg-Trace) mg/dL Urine Glucose (UA) (Negative) mg/dL Urine Ketones (Negative) mg/dL Urine Blood (Negative) Urine Nitrite (Negative) Ur Leukocyte Esterase (Negative) Urine RBC (0-2) /HPF Urine WBC (0-5) /HPF Ur Squamous Epith Cells (0-2) /HPF Urine Bacteria (None Seen) Hyaline Casts (0-2) /LPF COVID-19 (DIEGO) (Negative) COVID-19 Clin Com Influenza Type A (LENCHO) (Negative) Influenza Type B (LENCHO) (Negative) Influenza A & B Note 04/22/22 04/22/22 Range/Units 20:09 20:34 WBC (4.8-10.8) X10*3/uL RBC (4.60-5.80) X10*6/uL Hgb (14.0-18.0) g/dl Hct (42.0-52.0) % MCV (80.0-98.0) fL MCH (27.0-33.0) pg MCHC (31.0-36.0) g/dl RDW (11.0-16.0) % Plt Count (160-400) X10*3/uL MPV (9.4-12.4) fL Immature Gran % (Auto) (0.0-0.4) % Neut % (Auto) (45-73) % Lymph % (Auto) (20-40) % [place] % (Auto) (2-11) % Eos % (Auto) (0-4) % Baso % (Auto) (0-2) % Lymph # (Auto) (1.2-4.9) X10*3/uL [place] # (Auto) (0.1-1.2) X10*3/uL Eos # (Auto) (0.0-0.4) X10*3/uL Baso # (Auto) (0.0-0.2) X10*3/uL Abs Immat Gran (auto) (0.00-0.03) X10*3/uL Absolute Neuts (auto) (2.0-8.3) x10*3/uL Absolute Nucleated RBC (0.0-0.012) X10*3/uL Nucleated RBC % (auto) (0.0-0.2) /100WBC Smear Tech's Comments PT (10.0-13.1) SEC INR (0.9-1.1) APTT (26.0-36.4) SEC Sodium (135-145) mmol/L Potassium (3.3-5.1) mmol/L Chloride (96-108) mmol/L Carbon Dioxide (22-29) mmol/L Anion Gap (12-20) BUN (9-16) mg/dL Creatinine (0.5-1.4) mg/dL Estim Creat Clear Calc Estimated GFR Random Glucose (60-115) mg/dL Lactic Acid 0.7 (0.5-2.0) mmol/L Calcium (8.4-10.2) mg/dL Total Bilirubin (0.0-1.0) mg/dL AST (5-37) U/L ALT (0-40) U/L Alkaline Phosphatase (39-117) U/L Troponin I High Sens (<3.5-35.0) ng/L Total Protein (6.5-8.0) g/dL Albumin (3.5-5.0) g/dL Urine Color Yellow Urine Appearance Clear Urine pH 7.5 (5.0-9.0) Ur Specific Emmet 1.025 (1.005-1.025) Urine Protein 30 (1+) H (Neg-Trace) mg/dL Urine Glucose (UA) Negative (Negative) mg/dL Urine Ketones Trace (Negative) mg/dL Urine Blood Negative (Negative) Urine Nitrite Negative (Negative) Ur Leukocyte Esterase Negative (Negative) Urine RBC 0-2 (0-2) /HPF Urine WBC 0-5 (0-5) /HPF Ur Squamous Epith Cells 0-2 (0-2) /HPF Urine Bacteria None Seen (None Seen) Hyaline Casts 0-2 (0-2) /LPF COVID-19 (DIEGO) (Negative) COVID-19 Clin Com Influenza Type A (LENCHO) (Negative) Influenza Type B (LENCHO) (Negative) Influenza A & B Note Independent Interpretation I performed an independent interpretation of an: EKG Interpretation: My independent interpretation of the patient's EKG done at 2236 is as follows: Normal sinus rhythm rate of 86, normal VT interval, QRS duration QTC interval, no ST segment elevation, no ST segment depression, no PACs, no PVCs. Wandering baseline which makes V4 through V6 difficult to interpret. Radiology Impression Discussion of test interpretation with radiology: I have reviewed the radiologist's reading. Radiologist Impression: CT head/brain wo IV con IMPRESSION: 1. No acute intracranial pathology. 2. Ventricular prominence which appears to be out of proportion to sulcal prominence. Correlate for normal pressure hydrocephalus. Dictated By:Soren Harrington MD CT angio chest PE protocol IMPRESSION: No pulmonary embolism. Right lower lobe opacity favors atelectasis at the costophrenic angle.. VTE: negative Dictated By:Soren Harrington MDSigned By:<Electronically signed by Soren Harrington MD in OV>04/22/22 0748 Independent Historian Clinical information obtained from an independent historian. History obtained from or confirmed by: Other (Patient's sister, Elizabeth Iraheta) External Record Review External record reviewed: Outpatient record Critical Care Time Critical Care Time Critical Care Time: Yes Total Critical Care Time: 55 Attestation: Critical Care: The patient was critically ill with a high probability of imminent or life threatening deterioration. I spent greater than 30 minutes of discontinuous time evaluating the patient,delivering critical care at the bedside, discussing and evaluating pertinent data with consultants. Critical care time does not include time spent performing separately billable procedures or teaching. Total time spent performing critical care was 55 minutes. Discharge Plan Discharge Patient Disposition: Admitted As Inpatient Prescriptions: No Action (DME) abdominal binder 2xl See Rx Instructions .Route .MEDSUPPLY Qty: 1 0RF Rx Instructions: Pt to wear binder during daytime hours - may remove for shower diazepam 2 mg Tablet 2 mg PO BID melatonin 1 mg Tablet 1 mg PO BEDTIME ibuprofen 800 mg Tablet 800 mg PO Q8H PRN (Reason: FEVER/PAIN) divalproex 500 mg Tablet,Delayed Release (Dr/Ec) 500 mg PO BID acetaminophen 500 mg Tablet 500 mg PO Q6H PRN (Reason: FEVER/MILD PAIN) bisacodyl 10 mg Suppository 10 mg VT Q24H PRN (Reason: Constipation) polyethylene glycol 3350 17 gram/dose Powder 17 g PO Q24H PRN (Reason: Constipation) pregabalin 100 mg Capsule 100 mg PO TID Rx Instructions: GIVE WITH 300 MG CAPSULE TO EQUAL 400 MG BID witch monica 50 % Pads, Medicated 1 pad TOPICAL Q24H PRN (Reason: Hemorrhoids) Senna Plus 8.6-50 mg Capsule 1 tab-cap PO Q24H PRN (Reason: Constipation) Senna Plus 8.6-50 mg Capsule 1 tab-cap PO BEDTIME cholecalciferol (vitamin D3) 25 mcg (1,000 unit) Tablet 50 mcg PO DAILY risperidone 0.25 mg Tablet 0.25 mg PO BEDTIME risperidone 0.25 mg Tablet 0.125 mg PO QAM lactulose 10 gram/15 mL (15 mL) Solution 30 ml PO DAILY metoprolol succinate 25 mg Capsule,Sprinkle,Er 24hr 25 mg PO BID polyethylene glycol 3350 [Miralax] 17 gram/dose powder 17 g PO BID diazepam 2 mg tablet 2 mg PO BID PRN divalproex [Depakote ER] 500 mg tablet extended release 24 hr 500 mg PO DAILY
--- NOTE | 2022-04-22 19:55 | ECG_ITS ---
Test Reason : SOB Blood Pressure : / mmHG Vent. Rate : 086 BPM Atrial Rate : 086 BPM P-R Int : 182 ms QRS Dur : 082 ms QT Int : 356 ms P-R-T Axes : 071 -22 030 degrees QTc Int : 426 ms Normal sinus rhythm Nonspecific ST and T wave abnormality Abnormal ECG When compared with ECG of 17-NOV-2021 15:06, Vent. rate has increased BY 41 BPM Non-specific change in ST segment in Anterior leads Nonspecific T wave abnormality now evident in Lateral leads Referred By: Damien Holland Electronically Signed By:Nilson Oliver
[2022-04-22] MEDS: Piperacillin Sodium/Tazobactam 4.5 GM in 0.9 % Sodium Chloride 100 ML IV (20:15)
[2022-04-22] MEDS: 0.9 % Sodium Chloride 1,983 ML 1983 ML IV (20:15)
[2022-04-22 20:22] LABS: COVID-19 Test Positive (Negative); IDNOW Serial# 08D9AD1C; IDNOW Serial# BCCEAD1C; Influenza A Negative (Negative); Influenza B2 Negative (Negative)
[2022-04-22] MEDS: Acetaminophen 325 MG TABLET 975 MG PO (20:22)
[2022-04-22 20:36] LABS: Hemoglobin 13.5 g/dl (14.0-18.0); Imm Gran Abs Auto 0.02 X10*3/uL (0.00-0.03); Imm Gran Pct Auto 0.4 % (0.0-0.4); MANUAL DIFF FLAG SCAN; Neutrophils Absolute Auto 3.3 x10*3/uL (2.0-8.3); PLT CLUMP 1; SCAN SMEAR FLAG 1
--- NOTE | 2022-04-22 20:37 | PC.NURSE ---
difficulty obtaining labs and obtaining IV access; inc tremors significant
[2022-04-22 20:38] LABS: Basophils Percent Auto 0.4 % (0-2); Eosinophils Absolute Auto 0.1 X10*3/uL (0.0-0.4); Eosinophils Percent Auto 2.2 % (0-4); Hematocrit 42.1 % (42.0-52.0); Lymphocytes Absolute Auto 0.8 X10*3/uL (1.2-4.9); Lymphocytes Percent Auto 16.1 % (20-40); Mean Corpuscular HGB Conc 32.1 g/dl (31.0-36.0); Mean Corpuscular Volume 93.6 fL (80.0-98.0); Mean Platelet Volume 10.7 fL (9.4-12.4); Monocytes Absolute Auto 0.7 X10*3/uL (0.1-1.2); Monocytes Percent Auto 14.5 % (2-11); Neutrophils Percent Auto 66.4 % (45-73); Red Cell Distribution Width 13.8 % (11.0-16.0)
[2022-04-22 20:46] LABS: Appearance Urine Clear; Color Urine Yellow; Glucose Urine UA Negative (Negative); Leukocyte Esterase Urine Negative (Negative); Nitrite Urine Negative (Negative); PH 7.5 (5.0-9.0); Specific Gravity - Urine 1.025 (1.005-1.025); UMIC TRIGGER UACC YES; Urine Blood Negative (Negative); Urine Ketones Trace mg/dL (Negative); Urine Protein 30 (1+) mg/dL (Neg-Trace)
[2022-04-22 20:46] LABS: Platelet Count 82 X10*3/uL (160-400); White Blood Count 4.9 X10*3/uL (4.8-10.8)
[2022-04-22 20:47] LABS: INTERNATIONAL NORM RATIO 1.2 (0.9-1.1); Prothrombin Time 13.4 SEC (10.0-13.1)
[2022-04-22 20:49] LABS: Partial Thromboplastin Time 34.4 SEC (26.0-36.4)
[2022-04-22 20:52] LABS: Lactic Acid 0.7 mmol/L (0.5-2.0)
[2022-04-22 21:02] LABS: Bacteria Urine None Seen (None Seen); Hyaline Casts Urine 0-2 /LPF (0-2); RBC Urine 0-2 /HPF (0-2); Squamous Epithelial Cell Urine 0-2 /HPF (0-2); WBC Urine 0-5 /HPF (0-5)
[2022-04-22 21:06] LABS: Alanine Aminotransferase 10 U/L (0-40); Albumin Level 3.3 g/dL (3.5-5.0); Alkaline Phosphatase 42 U/L (39-117); Anion Gap 16 (12-20); Aspartate Amino Transferase 22 U/L (5-37); Bilirubin Total 0.5 mg/dL (0.0-1.0); Blood Urea Nitrogen 15 mg/dL (9-16); Calcium 8.2 mg/dL (8.4-10.2); Carbon Dioxide 27 mmol/L (22-29); Chloride 106 mmol/L (96-108); Creatinine Clr Calc Pharmacy 112.7; Estimated Glomerular Filt Rate > 60; Glucose Random 96 mg/dL (60-115); Potassium 4.8 mmol/L (3.3-5.1); Sodium 144 mmol/L (135-145); Total Protein 6.3 g/dL (6.5-8.0); Troponin-I High Sensitivity < 3.5 ng/L (<3.5-35.0)
--- NOTE | 2022-04-22 21:28 | PC.NURSE ---
resting quietly while watching tv, no respiratory distress, productive cough oral care provided
[2022-04-22] MEDS: Ibuprofen 600 MG TABLET PO (22:23)
[2022-04-22] MEDS: iohexoL 350 MG/ML 100 ML INFUS..BTL IV (22:34)
--- NOTE | 2022-04-22 22:42 | MHC.EDTECH ---
EKG done by this sports book writer , tech for this pt was unable to complete EKG at time of order
[2022-04-22 22:46] LABS: SLIDE REVIEW VERIFIED
[2022-04-22] MEDS: dexAMETHasone sod phosphate 4 MG/ML VIAL 6 MG IVPUSH (23:22)
[2022-04-23 01:00] VITALS: BP 90/49; PULSE 66; RESP 28; O2SAT 94
[2022-04-23] MEDS: Enoxaparin Sodium 40 MG/0.4 ML SYRINGE SUBCUT (01:15)
[2022-04-23] MEDS: Lactated Ringers 1,000 ML 999 ML IV (01:15)
[2022-04-23 01:21] VITALS: O2SAT 95
[2022-04-23 01:42] LABS: ABG Base Excess 0.6 mmol/L; ABG HCO3 27 mmol/L (22-26); ABG pCO2 52 mmHg (32-45); ABG pH 7.32 (7.35-7.45); ABG pO2 115 mmHg (83-108)
[2022-04-23 01:43] LABS: ABG Refer to POC result
--- NOTE | 2022-04-23 02:00 | MHC.EDTECH ---
Pt requested to be changed. Pt had a small BM and urinary incontinence. Jose westbrook assisted with me to changed the patient. Pt tolerated change well and went back to sleep. SG
[2022-04-23 02:23] VITALS: TEMP 37.1; O2SAT 96
[2022-04-23 02:40] LABS: ABG Refer to POC result
[2022-04-23 02:42] LABS: ABG Base Excess 1.5 mmol/L; ABG HCO3 26 mmol/L (22-26); ABG pCO2 44 mmHg (32-45); ABG pH 7.38 (7.35-7.45); ABG pO2 87 mmHg (83-108)
--- NOTE | 2022-04-23 02:48 | P.HPHOSP_ITS ---
History of Present Illness Date of Service: 04/23/22 Chief Complaint: Fevers This is a 57-year-old, resident of [facility] with pertinent history of essential hypertension, mood disorder, epilepsy, history of neuroleptic malignant syndrome who was sent to the emergency department for evaluation of confusion, fevers and chills. Unable to obtain any history from the patient. History obtained from chart review and ER provider. Paramedics found the patient to be febrile and hypoxemic on room air. Patient was tested positive for COVID-19 at the facility prior to being transferred. In the ER, patient's temperature was 103 degrees and he was intermittently confused. Able to respond occasionally and only oriented to self and place. Unable to obtain review of systems. Review of Systems Review of Systems: Yes Unobtainable due to mental status PMFSH Medical History Bilateral cataracts Cognitive impairment Deformity of left hand Depression Diverticular disease Epilepsy Flexion contractures Generalized anxiety disorder History of GI bleed History of hemodialysis Hx of deep venous thrombosis Hypertension Major depressive disorder Mild cognitive impairment Neuroleptic malignant syndrome OCD (obsessive compulsive disorder) Osteoarthritis Personal history of COVID-19 Rectal prolapse Resides in custodial facility Seizure disorder Thrombocytopenia Urinary incontinence Family History Sister Breast CA, Onset Age: 51 Ovarian ca, Onset Age: 55 Father Prostate CA, Onset Age: 70 Mother Colorectal cancer, Onset Age: 39 Kidney carcinoma, Onset Age: 67 Maternal Grandmother Colorectal cancer, Onset Age: 70 Maternal Aunt Colorectal cancer Surgical History History of incisional hernia repair (03/15/22) History of repair of rectocele Hx of appendectomy Hx of colonoscopy Social History Household Members: Caregiver Household Members Other:: Nursing facility Housing: Alf Housing Other:: custodial facility-Care [phone] Are you a primary rn patient care to a significant other at home: No Do you presently have visiting nurse or other home services: Yes (as above noted) Unable to assess alcohol history related to: Unable to respond Alcohol intake: never Patient Tobacco Use Status: Never used Tobacco Smoked in Last 30 Days: No Second Hand Smoke Exposure: No Use of substances other than those prescribed or required for medical reasons: No Advance Directives: Yes Advance Directives on File: Yes Advance Directives Date on File: 11/21/19 Nutrition Risks: No Nutritional Risk service: No Current occupational status: disabled Meds Allergies Allergy/AdvReac Type Severity Reaction Status Date / Time aripiprazole [From ABILIFY] Allergy Severe Involuntary Verified 04/23/22 00:10 Spasms droperidol [From INAPSINE] Allergy Severe Involuntary Verified 04/23/22 00:10 Spasms haloperidol [From HALDOL] Allergy Severe Involuntary Verified 04/23/22 00:10 Spasms prochlorperazine Allergy Severe Involuntary Verified 04/23/22 00:10 [From COMPAZINE] Spasms promethazine [From PHENERGAN] Allergy Severe Involuntary Verified 04/23/22 00:10 Spasms sulfamethoxazole Allergy Severe Anaphylaxis Verified 04/23/22 00:10 [From BACTRIM] trimethoprim [From BACTRIM] Allergy Severe Anaphylaxis Verified 04/23/22 00:10 Active Medications: Current Medications Acetaminophen (Acetaminophen 325 Mg Tablet) 650 mg PO Q6H PRN PRN Reason: Pain, Mild (Pain Scale 1-3) Acetaminophen (Acetaminophen Supp 650 Mg Supp.Rect) 650 mg MS Q6H PRN PRN Reason: Pain, Mild (Pain Scale 1-3) Dexamethasone Sodium Phosphate (Dexamethasone Sod Phosphate 4 Mg/Ml Vial) 6 mg IVPUSH DAILY [facility] Enoxaparin Sodium (Enoxaparin Sodium 40 Mg/0.4 Ml Syringe) 40 mg SUBCUT Q24H [facility] Last Admin: 04/23/22 01:15 Dose: 40 mg Melatonin (Melatonin 3 Mg Tablet) 6 mg PO BEDTIME PRN PRN Reason: Insomnia Ondansetron HCl (Ondansetron Hcl 4 Mg/2 Ml Vial) 4 mg IVPUSH Q8H PRN PRN Reason: Nausea and Vomiting Sodium Chloride (0.9 % Sodium Chloride Flush 3 Ml Syringe) 3 ml IVFLUSH QSHIFT [facility] Home Medications Medication Instructions Recorded Confirmed Last Taken Type diazepam 2 mg tablet 2 mg PO BID 11/17/19 04/20/22 03/15/22 History melatonin 1 mg tablet 1 mg PO BEDTIME 10/01/2404/20/22 11/16/19 History acetaminophen 500 mg tablet 500 mg PO Q6H PRN FEVER/MILD PAIN 02/13/20 04/20/22 Unknown History bisacodyl 10 mg rectal suppository 10 mg MS Q24H PRN Constipation 02/13/20 04/20/22 Unknown History cholecalciferol (vitamin D3) 25 50 mcg PO DAILY 02/13/20 04/20/22 Unknown History mcg (1,000 unit) tablet divalproex 500 mg tablet,delayed 500 mg PO BID 02/13/20 04/20/22 Unknown History release ibuprofen 800 mg tablet 800 mg PO Q8H PRN FEVER/PAIN 02/13/20 04/20/22 Unknown History polyethylene glycol 3350 17 17 g PO Q24H PRN Constipation 02/13/20 04/20/22 Unknown History gram/dose oral powder pregabalin 100 mg capsule 100 mg PO TID 02/13/20 04/20/22 03/15/22 History sennosides 8.6 mg-docusate sodium 1 tab-cap PO BEDTIME 02/13/20 04/20/22 Unknown History 50 mg capsule (Senna Plus) sennosides 8.6 mg-docusate sodium 1 tab-cap PO Q24H PRN Constipation 02/13/20 04/20/22 Unknown History 50 mg capsule (Senna Plus) witch monica 50 % topical pads 1 pad topical Q24H PRN Hemorrhoids 02/13/20 04/20/22 Unknown History lactulose 10 gram/15 mL (15 mL) 30 ml PO DAILY 03/09/22 04/20/22 Unknown History oral solution metoprolol succinate 25 mg capsule 25 mg PO BID 03/09/22 04/20/22 03/15/22 History sprinkle, ext. release 24 hr polyethylene glycol 3350 17 17 g PO BID 03/09/22 04/20/22 Unknown History gram/dose oral powder (Miralax) risperidone 0.25 mg tablet 0.125 mg PO QAM 03/09/22 04/20/22 03/15/22 History risperidone 0.25 mg tablet 0.25 mg PO BEDTIME 03/09/22 04/20/22 Unknown History diazepam 2 mg tablet 2 mg PO BID PRN 02/17/23 03/16/23 Unknown History divalproex 500 mg tablet,extended 500 mg PO DAILY 04/20/22 04/20/22 Unknown History release 24 hr ([facility]) Physical Exam Vital Signs and Narrative: Vital Signs: Last Vital Signs Temp 98.7 F 04/23/22 02:23 Pulse 66 04/23/22 01:00 Resp 28 H 04/23/22 01:00 BP 90/49 L 04/23/22 01:00 Pulse Ox 94 04/23/22 01:00 O2 Del Method 04/23/22 01:00 O2 Flow Rate 2 04/23/22 01:00 Oxygen Flow Rate 10 04/22/22 18:43 BMI result Body Mass Index 38.4 Middle-aged male lying in bed on supplemental oxygen Neck supple, no JVD Regular rate and rhythm, S1-S2 heard Decreased breath sound at bases with crackles Abdomen soft nontender, no guarding, no rigidity Patient is drowsy and awakens to sternal rub, intermittently responding to qu estions No pedal edema Results Labs 04/22/22 20:09 04/22/22 20:09 Labs: Laboratory Results - last 24 hr 04/22/22 04/22/22 04/22/22 19:51 19:51 20:09 MCV 93.6 MCH 30.0 MCHC 32.1 RDW 13.8 Plt Count 82 L MPV 10.7 Immature Gran % (Auto) 0.4 Neut % (Auto) 66.4 Lymph % (Auto) 16.1 L [place] % (Auto) 14.5 H Eos % (Auto) 2.2 Baso % (Auto) 0.4 Lymph # (Auto) 0.8 L [place] # (Auto) 0.7 Eos # (Auto) 0.1 Baso # (Auto) 0.0 Abs Immat Gran (auto) 0.02 Absolute Neuts (auto) 3.3 Absolute Nucleated RBC 0.000 Nucleated RBC % (auto) 0.0 Smear Tech's Comments VERIFIED PT INR APTT O2 Saturation ABG pH at Pt Temp ABG pCO2 at Pt Temp ABG pO2 at Pt Temp ABG HCO3 ABG Base Excess (Actual) Anion Gap Estim Creat Clear Calc Estimated GFR Random Glucose Lactic Acid Calcium Total Bilirubin AST ALT Alkaline Phosphatase Troponin I High Sens Total Protein Albumin Urine Color Urine Appearance Urine pH Ur Specific [place] Urine Protein Urine Glucose (UA) Urine Ketones Urine Blood Urine Nitrite Ur Leukocyte Esterase Urine RBC Urine WBC Ur Squamous Epith Cells Urine Bacteria Hyaline Casts COVID-19 (DIEGO) Positive A COVID-19 Clin Com See Note Influenza Type A (LENCHO) Negative Influenza Type B (LENCHO) Negative Influenza A & B Note See Note 04/22/22 04/22/22 04/22/22 20:09 20:09 20:09 MCV MCH MCHC RDW Plt Count MPV Immature Gran % (Auto) Neut % (Auto) Lymph % (Auto) [place] % (Auto) Eos % (Auto) Baso % (Auto) Lymph # (Auto) [place] # (Auto) Eos # (Auto) Baso # (Auto) Abs Immat Gran (auto) Absolute Neuts (auto) Absolute Nucleated RBC Nucleated RBC % (auto) Smear Tech's Comments PT 13.4 H INR 1.2 H APTT 34.4 O2 Saturation ABG pH at Pt Temp ABG pCO2 at Pt Temp ABG pO2 at Pt Temp ABG HCO3 ABG Base Excess (Actual) Anion Gap 16 Estim Creat Clear Calc 112.7 Estimated GFR > 60 Random Glucose 96 Lactic Acid Calcium 8.2 L Total Bilirubin 0.5 AST 22 ALT 10 Alkaline Phosphatase 42 Troponin I High Sens < 3.5 Total Protein 6.3 L Albumin 3.3 L Urine Color Urine Appearance Urine pH Ur Specific [place] Urine Protein Urine Glucose (UA) Urine Ketones Urine Blood Urine Nitrite Ur Leukocyte Esterase Urine RBC Urine WBC Ur Squamous Epith Cells Urine Bacteria Hyaline Casts COVID-19 (DIEGO) COVID-19 Clin Com Influenza Type A (LENCHO) Influenza Type B (LENCHO) Influenza A & B Note 04/22/22 04/22/22 04/23/22 20:09 20:34 01:36 MCV MCH MCHC RDW Plt Count MPV Immature Gran % (Auto) Neut % (Auto) Lymph % (Auto) [place] % (Auto) Eos % (Auto) Baso % (Auto) Lymph # (Auto) [place] # (Auto) Eos # (Auto) Baso # (Auto) Abs Immat Gran (auto) Absolute Neuts (auto) Absolute Nucleated RBC Nucleated RBC % (auto) Smear Tech's Comments PT INR APTT O2 Saturation 100.0 ABG pH at Pt Temp 7.32 L ABG pCO2 at Pt Temp 52 H ABG pO2 at Pt Temp 115 H ABG HCO3 27 H ABG Base Excess (Actual) 0.6 Anion Gap Estim Creat Clear Calc Estimated GFR Random Glucose Lactic Acid 0.7 Calcium Total Bilirubin AST ALT Alkaline Phosphatase Troponin I High Sens Total Protein Albumin Urine Color Yellow Urine Appearance Clear Urine pH 7.5 Ur Specific [place] 1.025 Urine Protein 30 (1+) H Urine Glucose (UA) Negative Urine Ketones Trace Urine Blood Negative Urine Nitrite Negative Ur Leukocyte Esterase Negative Urine RBC 0-2 Urine WBC 0-5 Ur Squamous Epith Cells 0-2 Urine Bacteria None Seen Hyaline Casts 0-2 COVID-19 (DIEGO) COVID-19 Clin Com Influenza Type A (LENCHO) Influenza Type B (LENCHO) Influenza A & B Note 04/23/22 02:35 MCV MCH MCHC RDW Plt Count MPV Immature Gran % (Auto) Neut % (Auto) Lymph % (Auto) [place] % (Auto) Eos % (Auto) Baso % (Auto) Lymph # (Auto) [place] # (Auto) Eos # (Auto) Baso # (Auto) Abs Immat Gran (auto) Absolute Neuts (auto) Absolute Nucleated RBC Nucleated RBC % (auto) Smear Tech's Comments PT INR APTT O2 Saturation 100.0 ABG pH at Pt Temp 7.38 ABG pCO2 at Pt Temp 44 ABG pO2 at Pt Temp 87 ABG HCO3 26 ABG Base Excess (Actual) 1.5 Anion Gap Estim Creat Clear Calc Estimated GFR Random Glucose Lactic Acid Calcium Total Bilirubin AST ALT Alkaline Phosphatase Troponin I High Sens Total Protein Albumin Urine Color Urine Appearance Urine pH Ur Specific [place] Urine Protein Urine Glucose (UA) Urine Ketones Urine Blood Urine Nitrite Ur Leukocyte Esterase Urine RBC Urine WBC Ur Squamous Epith Cells Urine Bacteria Hyaline Casts COVID-19 (DIEGO) COVID-19 Clin Com Influenza Type A (LENCHO) Influenza Type B (LENCHO) Influenza A & B Note Imaging Radiologist's Impressions: Impressions Chest X-Ray 04/22/22 19:30 IMPRESSION: No acute abnormality of chest. Head CT 04/22/22 22:39 IMPRESSION: 1. No acute intracranial pathology. 2. Ventricular prominence which appears to be out of proportion to sulcal prominence. Correlate for normal pressure hydrocephalus. Chest CTA 04/22/22 22:40 IMPRESSION: No pulmonary embolism. Right lower lobe opacity favors atelectasis at the costophrenic angle.. VTE: negative Assessment and Plan (1) Hypoxic: Status: Acute (2) COVID-19: Status: Acute Plan This is a 57-year-old, resident of [facility] with pertinent history of essential hypertension, mood disorder, epilepsy, history of neuroleptic malignant syndrome who was sent to the emergency department for evaluation of confusion, fevers and chills. #. Acute hypoxemic respiratory failure secondary to COVID-19: Will admit patient with supplemental oxygen and isolation precautions. Initiating Decadron 6 mg daily. No concern for bacterial superinfection, defer antibiotics. #. Acute metabolic encephalopathy in the setting of above #. Essential hypertension: Restart home antihypertensives as appropriate #. Epilepsy/mood disorder: Continue home medications Med rec pending DVT prophylaxis: Lovenox 40 mg daily Full code NPO until mentation improves Admit as inpatient and will require two night minimum hospital stay for supplemental oxygen Time Spent With Patient Time: Total time managing care of this patient today ____ minutes. Quality Stroke Does the patient have a stroke diagnosis?: No VTE Prior VTE?: No VTE Risk Level:: Medical - moderate - high VTE Device Contraindication: Treatment Not Indicated VTE Drug Contraindication: N/A - Med Ordered
[2022-04-23 02:59] VITALS: BP 136/75; PULSE 58; RESP 28; TEMP 37.2; O2SAT 93
--- NOTE | 2022-04-23 04:47 | MHC.EDTECH ---
Elizabeth(Sister of patient) phone number
--- NOTE | 2022-04-23 05:39 | PC.NURSE ---
Report given to GILBERTO Ruiz [facility]
[2022-04-23 08:00] VITALS: BP 99/62; PULSE 71; RESP 18; TEMP 36.8; O2SAT 92
[2022-04-23 08:24] LABS: MANUAL DIFF FLAG NO
[2022-04-23 08:27] LABS: Basophils Percent Auto 0.2 % (0-2); Monocytes Absolute Auto 0.3 X10*3/uL (0.1-1.2); PLT CLUMP 1; SCAN SMEAR FLAG 1
[2022-04-23 08:29] LABS: Eosinophils Percent Auto 0.2 % (0-4); Hematocrit 39.8 % (42.0-52.0); Hemoglobin 12.7 g/dl (14.0-18.0); Imm Gran Abs Auto 0.03 X10*3/uL (0.00-0.03); Imm Gran Pct Auto 0.7 % (0.0-0.4); Lymphocytes Absolute Auto 0.9 X10*3/uL (1.2-4.9); Mean Corpuscular HGB Conc 31.9 g/dl (31.0-36.0); Mean Corpuscular Hemoglobin 30.1 pg (27.0-33.0); Mean Corpuscular Volume 94.3 fL (80.0-98.0); Mean Platelet Volume 11.1 fL (9.4-12.4); Monocytes Percent Auto 7.3 % (2-11); Neutrophils Percent Auto 70.6 % (45-73); Red Blood Count 4.22 X10*6/uL (4.60-5.80); Red Cell Distribution Width 13.6 % (11.0-16.0)
[2022-04-23 08:31] LABS: Platelet Count 76 X10*3/uL (160-400); White Blood Count 4.2 X10*3/uL (4.8-10.8)
[2022-04-23 08:42] LABS: Anion Gap 14 (12-20); Blood Urea Nitrogen 15 mg/dL (9-16); Calcium 8.1 mg/dL (8.4-10.2); Carbon Dioxide 24 mmol/L (22-29); Chloride 110 mmol/L (96-108); Creatinine Clr Calc Pharmacy 127.6; Estimated Glomerular Filt Rate > 60; Glucose Random 114 mg/dL (60-115); Potassium 4.1 mmol/L (3.3-5.1); Sodium 144 mmol/L (135-145)
--- NOTE | 2022-04-23 09:05 | PHA.MEDREC ---
Pharmacy Consult ? Medication Reconciliation Pharmacy has completed the medication reconciliation. did not speak with patient. Medication list was sent from [facility].
[2022-04-23] MEDS: dexAMETHasone sod phosphate 4 MG/ML VIAL 6 MG IVPUSH (09:47)
[2022-04-23] MEDS: 0.9 % Sodium Chloride Flush 3 ML SYRINGE IVFLUSH (09:47)
--- NOTE | 2022-04-23 09:55 | MHC.CM.PN ---
pt from [facility] where he will retun today at 11;30 message left for sister hugh ..dr carr made arrangements for facilty return
--- NOTE | 2022-04-23 10:38 | PM.DS ---
DS: Providers Provider Date of Service: 04/23/22 Date of admission: 04/23/22 02:47 Date of discharge: 04/23/22 Primary care physician: Augustine Dan DO DS: Diagnosis Discharge Diagnosis (1) COVID-19: Status: Acute (2) Hypoxic: Status: Acute DS: Summary Hospital Course Hospital Course: 7-year-old, resident of [facility] with pertinent history of essential hypertension, mood disorder, epilepsy, history of neuroleptic malignant syndrome who was sent to the emergency department for evaluation of confusion, fevers and chills.? Unable to obtain any history from the patient.? History obtained from chart review and ER provider.? Paramedics found the patient to be febrile and hypoxemic on room air.? Patient was tested positive for COVID-19 at the facility prior to being transferred.? In the ER, patient's temperature was 103 degrees and he was intermittently confused.? Able to respond occasionally and only oriented to self and place.? Unable to obtain review of systems. Hospital Course In the emergency room, CT of head and CTA of chest failed to demonstrate any acute abnormality. Chest x-ray was clear. He has been afebrile since admission and has no O2 requirement. Discussed with sister given no extensive O2 requirement he will be sent back to [facility] ; I will see him this week Time Spent with Patient Time attestation: Total time managing care of this patient today ____ minutes. Discharge coordination time: Greater than 30 minutes Quality: Safe Use of Opioids Does Pt have an Active Cancer Diagnosis on the Problem List?: No Quality: Stroke Does the patient have a stroke diagnosis?: No Physical Exam Vital Signs: Vital Signs: Last Vital Signs Temp 98.2 F 04/23/22 08:00 Pulse 71 04/23/22 08:00 Resp 18 04/23/22 08:00 BP 99/62 04/23/22 08:00 Pulse Ox 92 04/23/22 08:00 O2 Del Method 04/23/22 02:59 O2 Flow Rate 2 04/23/22 02:59 Oxygen Flow Rate 10 04/22/22 18:43 BMI result Body Mass Index 38.4 Const: Other: Awake alert no acute distress Resp: Other: Clear to auscultation bilaterally no rales rhonchi wheezes Cardio: Other: No S4; positive S1-S2; no S3 murmurs rubs or gallops GI: Other: Soft nontender nondistended normoactive bowel sounds Extrem: Other: No edema bilaterally DS: Data Data Completed and Pending Completed studies during hospitalization [Text1]: Procedures Supplement Abdominal Wall with Synthetic Substitute, Open Approach (03/15/22) Labs on day of discharge: Laboratory Results - last 24 hr 04/22/22 04/22/22 04/22/22 19:51 19:51 20:09 WBC 4.9 RBC 4.50 L Hgb 13.5 L Hct 42.1 MCV 93.6 MCH 30.0 MCHC 32.1 RDW 13.8 Plt Count 82 L MPV 10.7 Immature Gran % (Auto) 0.4 Neut % (Auto) 66.4 Lymph % (Auto) 16.1 L Kenton % (Auto) 14.5 H Eos % (Auto) 2.2 Baso % (Auto) 0.4 Lymph # (Auto) 0.8 L Kenton # (Auto) 0.7 Eos # (Auto) 0.1 Baso # (Auto) 0.0 Abs Immat Gran (auto) 0.02 Absolute Neuts (auto) 3.3 Absolute Nucleated RBC 0.000 Nucleated RBC % (auto) 0.0 Smear Tech's Comments VERIFIED PT INR APTT O2 Saturation ABG pH at Pt Temp ABG pCO2 at Pt Temp ABG pO2 at Pt Temp ABG HCO3 ABG Base Excess (Actual) Sodium Potassium Chloride Carbon Dioxide Anion Gap BUN Creatinine Estim Creat Clear Calc Estimated GFR Random Glucose Lactic Acid Calcium Total Bilirubin AST ALT Alkaline Phosphatase Troponin I High Sens Total Protein Albumin Urine Color Urine Appearance Urine pH Ur Specific [place] Urine Protein Urine Glucose (UA) Urine Ketones Urine Blood Urine Nitrite Ur Leukocyte Esterase Urine RBC Urine WBC Ur Squamous Epith Cells Urine Bacteria Hyaline Casts COVID-19 (DIEGO) Positive A COVID-19 Clin Com See Note Influenza Type A (LENCHO) Negative Influenza Type B (LENCHO) Negative Influenza A & B Note See Note 04/22/22 04/22/22 04/22/22 20:09 20:09 20:09 WBC RBC Hgb Hct MCV MCH MCHC RDW Plt Count MPV Immature Gran % (Auto) Neut % (Auto) Lymph % (Auto) Kenton % (Auto) Eos % (Auto) Baso % (Auto) Lymph # (Auto) Kenton # (Auto) Eos # (Auto) Baso # (Auto) Abs Immat Gran (auto) Absolute Neuts (auto) Absolute Nucleated RBC Nucleated RBC % (auto) Smear Tech's Comments PT 13.4 H INR 1.2 H APTT 34.4 O2 Saturation ABG pH at Pt Temp ABG pCO2 at Pt Temp ABG pO2 at Pt Temp ABG HCO3 ABG Base Excess (Actual) Sodium 144 Potassium 4.8 Chloride 106 Carbon Dioxide 27 Anion Gap 16 BUN 15 Creatinine 0.86 Estim Creat Clear Calc 112.7 Estimated GFR > 60 Random Glucose 96 Lactic Acid Calcium 8.2 L Total Bilirubin 0.5 AST 22 ALT 10 Alkaline Phosphatase 42 Troponin I High Sens < 3.5 Total Protein 6.3 L Albumin 3.3 L Urine Color Urine Appearance Urine pH Ur Specific [place] Urine Protein Urine Glucose (UA) Urine Ketones Urine Blood Urine Nitrite Ur Leukocyte Esterase Urine RBC Urine WBC Ur Squamous Epith Cells Urine Bacteria Hyaline Casts COVID-19 (DIEGO) COVID-19 Clin Com Influenza Type A (LENCHO) Influenza Type B (LENCHO) Influenza A & B Note 04/22/22 04/22/22 04/23/22 20:09 20:34 01:36 WBC RBC Hgb Hct MCV MCH MCHC RDW Plt Count MPV Immature Gran % (Auto) Neut % (Auto) Lymph % (Auto) Kent[place] % (Auto) Eos % (Auto) Baso % (Auto) Lymph # (Auto) [place] # (Auto) Eos # (Auto) Baso # (Auto) Abs Immat Gran (auto) Absolute Neuts (auto) Absolute Nucleated RBC Nucleated RBC % (auto) Smear Tech's Comments PT INR APTT O2 Saturation 100.0 ABG pH at Pt Temp 7.32 L ABG pCO2 at Pt Temp 52 H ABG pO2 at Pt Temp 115 H ABG HCO3 27 H ABG Base Excess (Actual) 0.6 Sodium Potassium Chloride Carbon Dioxide Anion Gap BUN Creatinine Estim Creat Clear Calc Estimated GFR Random Glucose Lactic Acid 0.7 Calcium Total Bilirubin AST ALT Alkaline Phosphatase Troponin I High Sens Total Protein Albumin Urine Color Yellow Urine Appearance Clear Urine pH 7.5 Ur Specific [place] 1.025 Urine Protein 30 (1+) H Urine Glucose (UA) Negative Urine Ketones Trace Urine Blood Negative Urine Nitrite Negative Ur Leukocyte Esterase Negative Urine RBC 0-2 Urine WBC 0-5 Ur Squamous Epith Cells 0-2 Urine Bacteria None Seen Hyaline Casts 0-2 COVID-19 (DIEGO) COVID-19 Clin Com Influenza Type A (LENCHO) Influenza Type B (LENCHO) Influenza A & B Note 04/23/22 04/23/22 04/23/22 02:35 08:09 08:09 WBC 4.2 L RBC 4.22 L Hgb 12.7 L Hct 39.8 L MCV 94.3 MCH 30.1 MCHC 31.9 RDW 13.6 Plt Count 76 L MPV 11.1 Immature Gran % (Auto) 0.7 H Neut % (Auto) 70.6 Lymph % (Auto) 21.0 Kenton % (Auto) 7.3 Eos % (Auto) 0.2 Baso % (Auto) 0.2 Lymph # (Auto) 0.9 L [place] # (Auto) 0.3 Eos # (Auto) 0.0 Baso # (Auto) 0.0 Abs Immat Gran (auto) 0.03 Absolute Neuts (auto) 3.0 Absolute Nucleated RBC 0.000 Nucleated RBC % (auto) 0.0 Smear Tech's Comments PT INR APTT O2 Saturation 100.0 ABG pH at Pt Temp 7.38 ABG pCO2 at Pt Temp 44 ABG pO2 at Pt Temp 87 ABG HCO3 26 ABG Base Excess (Actual) 1.5 Sodium 144 Potassium 4.1 Chloride 110 H Carbon Dioxide 24 Anion Gap 14 BUN 15 Creatinine 0.76 Estim Creat Clear Calc 127.6 Estimated GFR > 60 Random Glucose 114 Lactic Acid Calcium 8.1 L Total Bilirubin AST ALT Alkaline Phosphatase Troponin I High Sens Total Protein Albumin Urine Color Urine Appearance Urine pH Ur Specific [place] Urine Protein Urine Glucose (UA) Urine Ketones Urine Blood Urine Nitrite Ur Leukocyte Esterase Urine RBC Urine WBC Ur Squamous Epith Cells Urine Bacteria Hyaline Casts COVID-19 (DIEGO) COVID-19 Clin Com Influenza Type A (LENCHO) Influenza Type B (LENCHO) Influenza A & B Note Discharge Plan Discharge Anticipated Discharge Date/Time: 04/23/22 10:34 Patient Disposition: Xfer LT Discharge Diagnosis: COVID-19 infection Referrals: [facility] [Other] - 1 Week Augustine Dan DO [Primary Care Provider] - 1 Week Discharge Medications: New dexamethasone 6 mg tablet 6 mg PO DAILY Qty: 10 0RF Continued (DME) abdominal binder 2xl See Rx Instructions .Route .MEDSUPPLY Qty: 1 0RF Rx Instructions: Pt to wear binder during daytime hours - may remove for shower diazepam 2 mg Tablet 2 mg PO BID melatonin 1 mg Tablet 1 mg PO BEDTIME ibuprofen 800 mg Tablet 800 mg PO Q8H PRN (Reason: FEVER/PAIN) acetaminophen 500 mg Tablet 500 mg PO Q6H PRN (Reason: FEVER/MILD PAIN) bisacodyl 10 mg Suppository 10 mg IN Q24H PRN (Reason: Constipation) polyethylene glycol 3350 17 gram/dose Powder 17 g PO Q24H PRN (Reason: Constipation) pregabalin 100 mg Capsule 100 mg PO TID Rx Instructions: GIVE WITH 300 MG CAPSULE TO EQUAL 400 MG BID witch monica 50 % Pads, Medicated 1 pad TOPICAL Q24H PRN (Reason: Hemorrhoids) Senna Plus 8.6-50 mg Capsule 1 tab-cap PO Q24H PRN (Reason: Constipation) Senna Plus 8.6-50 mg Capsule 1 tab-cap PO BEDTIME cholecalciferol (vitamin D3) 25 mcg (1,000 unit) Tablet 50 mcg PO DAILY Fleet Enema 19-7 gram/118 mL Enema 118 ml IN DAILY PRN (Reason: Constipation) Rx Instructions: use only if bisacodyl suppository is ineffective metoprolol succinate 25 mg Tablet Extended Release 24 Hr 25 mg PO BID Rx Instructions: take with or after meals lidocaine 5 % Ointment 1 appl topical Q6H PRN (Reason: Hemorrhoids) Rx Instructions: PER RECTUM. APPLY PEA SIZE AMOUNT risperidone 0.25 mg Tablet 0.25 mg PO BEDTIME risperidone 0.25 mg Tablet 0.125 mg PO DAILY lactulose 10 gram/15 mL (15 mL) Solution 30 ml PO DAILY polyethylene glycol 3350 [Miralax] 17 gram/dose powder 17 g PO BID Rx Instructions: dilute in 6-8 ounces of fluid divalproex [Depakote ER] 500 mg tablet extended release 24 hr 500 mg PO BID Discharge Orders: Discharge Order (Routine); Ordered 04/23/22 Ordered By: Augustine Dan Diet: Advance to usual diet Activity on Discharge: As tolerated Stand Alone Forms: Patient Portal Discharge page Care Plan Goals: Resume all meds as pre-hospital with the addition of dexamethasone 6 mg daily for 10 days Health Concerns: Monitor O2 sats closely Plan of Treatment: COVID-19 precautions Assessment: See discharge summary
== END 2022-04-23 11:34 | DRG 137 ==
LOC: HO.ED 04-23 00:04 → HO.EDOVER 04-23 03:00 → HO.IMC 04-23 04:05
PROVIDERS: Admitting Provider Student in an Organized Health Care Education/Training Program; Emergency Provider Emergency Medicine Emergency Medical Services; PCP Hospitalist; Visit Provider Hospitalist
DX: U07.1 COVID-19 (principal); J96.01 Acute respiratory failure with hypoxia; G93.41 Metabolic encephalopathy; F42.9 Obsessive-compulsive disorder, unspecified; I10 Essential (primary) hypertension; G40.909 Epilepsy, unspecified, not intractable, without status epilepticus; Z88.2 Allergy status to sulfonamides; Z88.8 Allergy status to other drugs, medicaments and biological substances; Z79.899 Other long term (current) drug therapy
CPT/HCPCS: 36415; 36600; 70450; 71045; 71275; 80048; 80053; 81001; 82803; 83605; 84484; 85025; 85610; 85730; 87040; 87502; 87635; 93005; 99285; J1100; J1650; J2543; Q9967

== ENCOUNTER 2022-05-11 13:31 | Inpatient (IN) | payer MEDICAID, SELFPAY ==
[2022-05-11] VITALS (10 sets, daily range): BP systolic 92–118; BP diastolic 59–80; PULSE 98–125; RESP 15–39; TEMP 36.7–39.3; O2SAT 77–98; BMI 33.3
--- NOTE | ~2022-05-11 | CT_ITS ---
EXAMINATION: CT ANGIOGRAM OF THE CHEST WITH AND WITHOUT CONTRAST (CT PULMONARY ANGIOGRAM FOR PE) CLINICAL INFORMATION: Reason for Exam hypoxic, tachycardic, elevated dimer COMPARISON: None available. TECHNIQUE: Prior to contrast administration, noncontrast localization images were obtained. Subsequently, multidetector volumetric imaging was performed from the thoracic inlet to below the diaphragms following the administration of 65 mL Omnipaque 350 intravenous contrast. No contrast reaction reported Sagittal, coronal, and MIP oblique sagittal reformatted images were obtained on the CT workstation, uploaded to PACS, and reviewed. This CT examination was performed using dose optimization techniques as appropriate, variously including the following: *Automated exposure control *Adjustment of mA and/or kV according to patient size (this includes techniques or standardized protocols for targeted exams where dose is matched to indication/reason for exam; i.e. extremities or head) *Use of iterative reconstruction technique Total exam dose-length product 662 mGy-cm FINDINGS: QUALITY OF STUDY/CONTRAST BOLUS: Suboptimal. Respiratory motion limits evaluation. PULMONARY ARTERIES: No central or lobar pulmonary embolism however respiratory motion limits assessment for segmental or subsegmental pulmonary emboli. THORACIC AORTA: No aneurysm. CHEST WALL/AXILLA: No axillary lymphadenopathy. Symmetric gynecomastia. LUNGS: Patchy bibasilar consolidation raises suspicion for aspiration. Respiratory motion limits evaluation of the pulmonary parenchyma. MEDIASTINUM: Heart is normal in size. No mediastinal lymphadenopathy. No hilar lymphadenopathy. CORONARY ARTERY CALCIFICATION: Coronary artery calcification is present. PLEURA: There is no pleural effusion. UPPER ABDOMEN: Gallbladder is distended without christiane radiopaque gallstones, partially imaged. OSSEOUS STRUCTURES: Unremarkable. CT/CT angio chest PE protocol IMPRESSION: No central or lobar pulmonary embolism however respiratory motion limits assessment for segmental or subsegmental pulmonary emboli. Patchy bibasilar consolidation raises suspicion for aspiration or infection. Gallbladder is distended without christiane radiopaque gallstones partially imaged.
--- NOTE | ~2022-05-11 | XR_ITS ---
EXAMINATION: XR CHEST CLINICAL INFORMATION: Cough. COMPARISON: Chest x-ray 04/22/2012 TECHNIQUE: Frontal view of the chest was obtained. FINDINGS: The lungs are well-expanded with mild elevation of right hemidiaphragm. The heart size and pulmonary vascularity is normal. No gross bony abnormality seen. XR/XR chest 1V IMPRESSION: Mild elevated right hemidiaphragm without any acute pulmonary process.
--- NOTE | 2022-05-11 13:58 | PHA.MEDREC ---
Pharmacy Consult ? Medication Reconciliation Pharmacy has completed the medication reconciliation. Patient came from [facility] with med list. Hollie Negrete, Victor ManuelD
--- NOTE | 2022-05-11 14:30 | ED.GENADULT ---
HPI - General Adult General Chief complaint: General Medical Stated complaint: LETHARGY Time Seen by Provider: 05/11/22 14:25 Source: patient and EMS Mode of arrival: EMS History of Present Illness HPI narrative: This is 57 years old male from the skilled nursing a sent for evaluation because of cough congestion no fever no vomiting no diarrhea. He has multiple medical problems which include hypertension, depression thrombocytopenia, obesity Onset (ago): day(s) (1) Radiation: non-radiation Severity: moderate Quality: burning Pain Consistency: constant Relieving factors: none Exacerbating factors: none Related Data Home Medications Medication Instructions Recorded Confirmed diazepam 2 mg tablet 2 mg PO BID 11/17/19 05/11/22 melatonin 1 mg tablet 1 mg PO BEDTIME 11/17/19 05/11/22 acetaminophen 500 mg tablet 500 mg PO Q6H PRN FEVER/MILD PAIN 02/13/20 05/11/22 bisacodyl 10 mg rectal suppository 10 mg PA Q24H PRN Constipation 02/13/20 05/11/22 cholecalciferol (vitamin D3) 25 50 mcg PO DAILY 02/13/20 05/11/22 mcg (1,000 unit) tablet ibuprofen 800 mg tablet 800 mg PO Q8H PRN FEVER/PAIN 02/13/20 05/11/22 polyethylene glycol 3350 17 17 g PO Q24H PRN Constipation 02/13/20 05/11/22 gram/dose oral powder pregabalin 100 mg capsule 100 mg PO TID 02/13/20 05/11/22 sennosides 8.6 mg-docusate sodium 1 tab-cap PO DAILY 02/13/20 05/11/22 50 mg capsule (Senna Plus) sennosides 8.6 mg-docusate sodium 1 tab-cap PO Q24H PRN Constipation 02/13/20 05/11/22 50 mg capsule (Senna Plus) witch monica 50 % topical pads 1 pad topical Q24H PRN Hemorrhoids 02/13/20 05/11/22 lactulose 10 gram/15 mL (15 mL) 30 ml PO DAILY 03/09/22 05/11/22 oral solution polyethylene glycol 3350 17 17 g PO BID 03/09/22 05/11/22 gram/dose oral powder (Miralax) risperidone 0.25 mg tablet 0.125 mg PO DAILY 03/09/22 05/11/22 risperidone 0.25 mg tablet 0.25 mg PO BEDTIME 03/09/22 05/11/22 divalproex 500 mg tablet,extended 500 mg PO BID 04/20/22 05/11/22 release 24 hr (Depakote ER) lidocaine 5 % topical ointment 1 appl topical Q6H PRN Hemorrhoids 04/23/22 05/11/22 metoprolol succinate 25 mg 25 mg PO BID 04/23/22 05/11/22 tablet,extended release 24 hr sodium phosphates 19 gram-7 118 ml PA DAILY PRN Constipation 04/23/22 05/11/22 gram/118 mL enema (Fleet Enema) aluminum-mag hydroxide-simethicone 30 ml PO Q4H PRN Heartburn 05/11/22 05/11/22 200 mg-200 mg-20 mg/5 mL oral susp dextromethorphan-guaifenesin 10 10 ml PO Q4H PRN Cough 05/11/22 05/11/22 mg-100 mg/5 mL oral syrup (Tussin DM) psyllium 1 packet PO BID 05/11/22 05/11/22 Previous Rx's Medication Instructions Recorded abdominal binder #1 ea 03/21/22 Allergies Allergy/AdvReac Type Severity Reaction Status Date / Time aripiprazole [From ABILIFY] Allergy Severe Involuntary Verified 04/23/22 00:10 Spasms droperidol [From INAPSINE] Allergy Severe Involuntary Verified 04/23/22 00:10 Spasms haloperidol [From HALDOL] Allergy Severe Involuntary Verified 04/23/22 00:10 Spasms prochlorperazine Allergy Severe Involuntary Verified 04/23/22 00:10 [From COMPAZINE] Spasms promethazine [From PHENERGAN] Allergy Severe Involuntary Verified 04/23/22 00:10 Spasms sulfamethoxazole Allergy Severe Anaphylaxis Verified 04/23/22 00:10 [From BACTRIM] trimethoprim [From BACTRIM] Allergy Severe Anaphylaxis Verified 04/23/22 00:10 Review of Systems Constitutional: Constitutional: Reports no additional constitutional complaints ENT: Reports system reviewed and no additional complaints, except as documented Cardiovascular: Cardiovascular: Reports no additional cardiovascular complaints Respiratory: Respiratory: Reports no additional respiratory complaints Integumentary/Breasts: Skin/Breast: Reports system reviewed and no additional complaints, except as docu [facility] Past Medical History Attestation statement: The following information was validated with the patient. Medical History Bilateral cataracts Cognitive impairment Deformity of left hand Depression Diverticular disease Epilepsy Flexion contractures Generalized anxiety disorder History of GI bleed History of hemodialysis Hx of deep venous thrombosis Hypertension Major depressive disorder Mild cognitive impairment Neuroleptic malignant syndrome OCD (obsessive compulsive disorder) Osteoarthritis Personal history of COVID-19 Rectal prolapse Resides in senior care facility Seizure disorder Thrombocytopenia Urinary incontinence Surgical History History of incisional hernia repair (03/15/22) History of repair of rectocele Hx of appendectomy Hx of colonoscopy Family History Family History Sister Breast CA, Onset Age: 51 Ovarian ca, Onset Age: 55 Father Prostate CA, Onset Age: 70 Mother Colorectal cancer, Onset Age: 39 Kidney carcinoma, Onset Age: 67 Maternal Grandmother Colorectal cancer, Onset Age: 70 Maternal Aunt Colorectal cancer Social History Social History Household Members: Caregiver Household Members Other:: lives [facility] Housing: Longterm Housing Other:: senior care [facility]-[phone] Are you a primary healthcare representative to a significant other at home: No Do you presently have visiting nurse or other home services: Yes (as above noted) Unable to assess alcohol history related to: Unable to respond Alcohol intake: never Patient Tobacco Use Status: Never used Tobacco Smoked in Last 30 Days: No Second Hand Smoke Exposure: No Use of substances other than those prescribed or required for medical reasons: No Advance Directives: Yes Advance Directives on File: Yes Advance Directives Date on File: 11/21/19 service: No Current occupational status: disabled Physical Exam ED Vital Signs: Vital Signs - 24 hr 05/11/22 13:50 05/11/22 13:50 05/11/22 14:43 Temperature 98.0 F Pulse Rate 98 98 99 Respiratory Rate 20 15 32 H Blood Pressure 98/78 98/78 109/59 L Pulse Oximetry 91 L 92 96 Oxygen Delivery Method Room Air Nasal Cannula Room Air Oxygen Flow Rate 2 4 05/11/22 15:47 Temperature 98.4 F Pulse Rate 103 H Respiratory Rate 20 Blood Pressure 107/65 Pulse Oximetry 98 Oxygen Delivery Method Room Air Oxygen Flow Rate BMI result Body Mass Index 33.3 Const General: cooperative Nutritional Appearance: well nourished Orientation/consciousness: oriented to time Limitations: no limitations HENMT Head: Yes normal to inspection General nose exam: Normal external nose present Face and sinus: Yes normal facial exam Mouth: Normal oral and palatal mucosa present Teeth and gingiva: dentition normal Throat: Yes posterior oropharynx normal Neck Neck: Yes normal visual inspection Chest Chest palpation & inspection: normal inspection of the chest Resp Auscultation: rhonchi GI Inspection: Yes normal to inspection Palpation (GI): Soft to palpation Percussion: Yes normal to percussion Skin General skin exam: no rashes or lesions noted and elasticity normal Lesions: no lesions Rashes: no rashes Neuro General: oriented to time Cranial nerves: Yes CN's II-XII intact bilaterally Course Reevaluation(s) Reevaluation #1: Labs are pending, the case will be signed out to Dr. Abraham Time: 16:15 Medications Administered Discontinued Medications Generic Name Dose Route Start Last Admin Trade Name Freq PRN Reason Stop Dose Admin Sodium Chloride 1,000 mls @ 999 mls/hr 05/11/22 14:30 05/11/22 15:54 Ns IVCONT 05/11/22 15:30 Infused .Q1H1M MAIA Infusion Medical Decision Making Medical Decision Making [facility] Narrative: Patient presented to the emergency department from the skilled nursing cough congestion will get a chest x-ray and reassess will get labs as well Differential Diagnosis Differential Diagnoses: The differential diagnosis associated with the presentation includes Admission/Observation Consideration of admission/observation: Escalation of care including admission/observation considered Lab Data [facility] Lab Attestation statement: I reviewed the patient's lab results. 05/11/22 15:33 05/11/22 15:33 Labs: Lab Results 05/11/22 05/11/22 05/11/22 Range/Units 15:33 15:33 15:33 PT 13.1 (10.0-13.1) SEC INR 1.1 (0.9-1.1) Sodium 143 (135-145) mmol/L Potassium 4.7 (3.3-5.1) mmol/L Chloride 104 (96-108) mmol/L Carbon Dioxide 29 (22-29) mmol/L Anion Gap 15 (12-20) BUN 16 (9-16) mg/dL Creatinine 0.92 (0.5-1.4) mg/dL Estim Creat Clear Calc 91.7 Estimated GFR > 60 Random Glucose 97 (60-115) mg/dL Calcium 8.9 D (8.4-10.2) mg/dL Total Bilirubin 1.0 (0.0-1.0) mg/dL AST 12 (5-37) U/L ALT 9 (0-40) U/L Alkaline Phosphatase 51 (39-117) U/L Troponin I High Sens 12.7 D (<3.5-35.0) ng/L Total Protein 6.1 L (6.5-8.0) g/dL Albumin 3.3 L (3.5-5.0) g/dL COVID-19 (DIEGO) (Negative) COVID-Beyond Verbal 05/11/22 Range/Units 15:33 PT (10.0-13.1) SEC INR (0.9-1.1) Sodium (135-145) mmol/L Potassium (3.3-5.1) mmol/L Chloride (96-108) mmol/L Carbon Dioxide (22-29) mmol/L Anion Gap (12-20) BUN (9-16) mg/dL Creatinine (0.5-1.4) mg/dL Estim Creat Clear Calc Estimated GFR Random Glucose (60-115) mg/dL Calcium (8.4-10.2) mg/dL Total Bilirubin (0.0-1.0) mg/dL AST (5-37) U/L ALT (0-40) U/L Alkaline Phosphatase (39-117) U/L Troponin I High Sens (<3.5-35.0) ng/L Total Protein (6.5-8.0) g/dL Albumin (3.5-5.0) g/dL COVID-19 (DIEGO) Negative (Negative) COVID-19 [employer] Com See Note Discharge Plan Discharge Clinical Impression: Shortness of breath, Cough Patient Disposition: Still a Patient Prescriptions: No Action (DME) abdominal binder 2xl See Rx Instructions .Route .MEDSUPPLY Qty: 1 0RF Rx Instructions: Pt to wear binder during daytime hours - may remove for shower diazepam 2 mg Tablet 2 mg PO BID melatonin 1 mg Tablet 1 mg PO BEDTIME ibuprofen 800 mg Tablet 800 mg PO Q8H PRN (Reason: FEVER/PAIN) acetaminophen 500 mg Tablet 500 mg PO Q6H PRN (Reason: FEVER/MILD PAIN) bisacodyl 10 mg Suppository 10 mg PA Q24H PRN (Reason: Constipation) polyethylene glycol 3350 17 gram/dose Powder 17 g PO Q24H PRN (Reason: Constipation) pregabalin 100 mg Capsule 100 mg PO TID Rx Instructions: GIVE WITH 300 MG CAPSULE TO EQUAL 400 MG BID witch monica 50 % Pads, Medicated 1 pad TOPICAL Q24H PRN (Reason: Hemorrhoids) Senna Plus 8.6-50 mg Capsule 1 tab-cap PO Q24H PRN (Reason: Constipation) Senna Plus 8.6-50 mg Capsule 1 tab-cap PO DAILY cholecalciferol (vitamin D3) 25 mcg (1,000 unit) Tablet 50 mcg PO DAILY Fleet Enema 19-7 gram/118 mL Enema 118 ml PA DAILY PRN (Reason: Constipation) Rx Instructions: use only if bisacodyl suppository is ineffective metoprolol succinate 25 mg Tablet Extended Release 24 Hr 25 mg PO BID Rx Instructions: take with or after meals lidocaine 5 % Ointment 1 appl topical Q6H PRN (Reason: Hemorrhoids) Rx Instructions: PER RECTUM. APPLY PEA SIZE AMOUNT risperidone 0.25 mg Tablet 0.25 mg PO BEDTIME risperidone 0.25 mg Tablet 0.125 mg PO DAILY lactulose 10 gram/15 mL (15 mL) Solution 30 ml PO DAILY polyethylene glycol 3350 [Miralax] 17 gram/dose powder 17 g PO BID Rx Instructions: dilute in 6-8 ounces of fluid Metamucil Packet 1 packet PO BID Rx Instructions: mix into at least 8 oz of water or juice before administering dextromethorphan-guaifenesin [Tussin DM] 10-100 mg/5 mL Syrup 10 ml PO Q4H PRN (Reason: Cough) alum-mag hydroxide-simeth [Mylanta] 200-200-20 mg/5 mL Suspension 30 ml PO Q4H PRN (Reason: Heartburn) Rx Instructions: administer between meals and at bedtime divalproex [Depakote ER] 500 mg tablet extended release 24 hr 500 mg PO BID
[2022-05-11] MEDS: 0.9 % Sodium Chloride 1,000 ML 999 ML IVCONT ×2 (14:46→19:58)
[2022-05-11 15:49] LABS: INTERNATIONAL NORM RATIO 1.1 (0.9-1.1); Prothrombin Time 13.1 SEC (10.0-13.1)
[2022-05-11 16:01] LABS: Alanine Aminotransferase 9 U/L (0-40); Albumin Level 3.3 g/dL (3.5-5.0); Alkaline Phosphatase 51 U/L (39-117); Anion Gap 15 (12-20); Aspartate Amino Transferase 12 U/L (5-37); Blood Urea Nitrogen 16 mg/dL (9-16); Calcium 8.9 mg/dL (8.4-10.2); Carbon Dioxide 29 mmol/L (22-29); Chloride 104 mmol/L (96-108); Creatinine Clr Calc Pharmacy 91.7; Estimated Glomerular Filt Rate > 60; Glucose Random 97 mg/dL (60-115); Potassium 4.7 mmol/L (3.3-5.1); Sodium 143 mmol/L (135-145); Total Protein 6.1 g/dL (6.5-8.0)
[2022-05-11 16:06] LABS: COVID-19 Test Negative (Negative); IDNOW Serial# 9DB6401D
[2022-05-11 16:09] LABS: Troponin-I High Sensitivity 12.7 ng/L (<3.5-35.0)
[2022-05-11 16:29] LABS: MANUAL DIFF FLAG SCAN; PLT CLUMP 1; Red Cell Distribution Width 14.1 % (11.0-16.0); SCAN SMEAR FLAG 1
[2022-05-11 16:31] LABS: Basophils Percent Auto 0.3 % (0-2); Eosinophils Absolute Auto 0.1 X10*3/uL (0.0-0.4); Hematocrit 51.5 % (42.0-52.0); Hemoglobin 16.4 g/dl (14.0-18.0); Imm Gran Abs Auto 0.04 X10*3/uL (0.00-0.03); Imm Gran Pct Auto 0.3 % (0.0-0.4); Lymphocytes Absolute Auto 1.2 X10*3/uL (1.2-4.9); Lymphocytes Percent Auto 10.3 % (20-40); Mean Corpuscular HGB Conc 31.8 g/dl (31.0-36.0); Mean Corpuscular Hemoglobin 30.1 pg (27.0-33.0); Mean Corpuscular Volume 94.5 fL (80.0-98.0); Mean Platelet Volume 11.7 fL (9.4-12.4); Monocytes Absolute Auto 0.7 X10*3/uL (0.1-1.2); Monocytes Percent Auto 6.3 % (2-11); Neutrophils Absolute Auto 9.4 x10*3/uL (2.0-8.3); Neutrophils Percent Auto 81.8 % (45-73); Red Blood Count 5.45 X10*6/uL (4.60-5.80)
[2022-05-11 16:33] LABS: White Blood Count 11.5 X10*3/uL (4.8-10.8)
[2022-05-11 16:48] LABS: B Type Natriuretic Peptide 79 pg/mL (<100)
[2022-05-11 16:53] LABS: Platelet Count 74 X10*3/uL (160-400); SLIDE REVIEW VERIFIED
[2022-05-11 18:07] LABS: D Dimer High Sensitivity 1387 NG/ML
[2022-05-11 18:13] LABS: Lactic Acid 2.5 mmol/L (0.5-2.0)
[2022-05-11] MEDS: cefTRIAXone sodium 1 GM in 0.9 % Sodium Chloride 50 ML IV (18:45)
[2022-05-11] MEDS: diazePAM 2 MG TABLET PO (18:45)
--- NOTE | 2022-05-11 19:03 | PC.NURSE ---
pt a difficult poke, multiple attempts made to obtain blood cultures - abx hung late
[2022-05-11] MEDS: iohexoL 350 MG/ML 100 ML INFUS..BTL IV (19:15)
[2022-05-11] MEDS: Acetaminophen 325 MG TABLET 975 MG PO (19:43)
[2022-05-11] MEDS: Azithromycin 500 MG in 0.9 % Sodium Chloride 250 ML 125 MG IV (19:45)
[2022-05-11 20:00] LABS: Reflex Lactate? Lactic Acid Added
[2022-05-11 20:24] LABS: ~Lactic Acid-LAB USE ONLY 1.2 mmol/L (0.5-2.0)
[2022-05-11 21:25] LABS: Appearance Urine Clear; Color Urine Yellow; Glucose Urine UA Negative (Negative); Leukocyte Esterase Urine Trace (Negative); Nitrite Urine Positive (Negative); PH 6.5 (5.0-9.0); Specific Gravity - Urine >= 1.030 (1.005-1.025); UMIC TRIGGER UACC YES; Urine Blood Negative (Negative); Urine Ketones 15 mg/dL (Negative); Urine Protein 30 (1+) mg/dL (Neg-Trace)
[2022-05-11 21:38] LABS: Bacteria Urine 1+ (None Seen); Hyaline Casts Urine 0-2 /LPF (0-2); RBC Urine 0-2 /HPF (0-2); Squamous Epithelial Cell Urine 0-2 /HPF (0-2); UACC Culture Trigger YES; WBC Urine 21-50 /HPF (0-5)
--- NOTE | 2022-05-11 21:59 | PM.IMHP ---
History of Present Illness Date of Service: 05/11/22 Chief Complaint: Cough congestion 57-year-old male with past medical history of cognitive impairment, epilepsy, anxiety, HTN, major depressive disorder, OCD, history of thrombocytopenia, among others who comes in from [facility] evaluation of difficulty breathing. Sister at bedside gives most of the history, as patient is a poor historian given his cognitive impairment. It appears the patient has been having a cough, as well as sputum production for the past 2 and half weeks. He was treated with p.o. antibiotics outpatient completed regimen 3 days ago but continued to have shortness of breath, cough, difficulty breathing. Patient complaining of chills with no fever. No chest pain, no abdominal pain nausea or vomiting, no diarrhea constipation, no urinary symptoms and no lower extremity edema. On arrival to the ED patient noted to be hypoxic satting to the 70s with minimal movement. While at rest not moving he is setting low 90s. Other vitals are significant for tachycardia and tachypnea in the 20s. Labs are significant for WBC count of 11.5, lactic acid of 2.5 improved after IV fluids, now elevated D-dimer, BNP of 79, UA positive for leukocyte Estrace and WBC COVID-[address] chest angiogram done showed negative PE, but has patchy bilateral consolidation Patient started on IV antibiotics and will be admitted for further management Review of Systems Review of Systems: Yes all other systems are reviewed and are negative [facility]LY [facility] Medical History Bilateral cataracts Cognitive impairment Deformity of left hand Depression Diverticular disease Epilepsy Flexion contractures Generalized anxiety disorder History of GI bleed History of hemodialysis Hx of deep venous thrombosis Hypertension Major depressive disorder Mild cognitive impairment Neuroleptic malignant syndrome OCD (obsessive compulsive disorder) Osteoarthritis Personal history of COVID-19 Rectal prolapse Resides in nursing home facility Seizure disorder Thrombocytopenia Urinary incontinence Family History Sister Breast CA, Onset Age: 51 Ovarian ca, Onset Age: 55 Father Prostate CA, Onset Age: 70 Mother Colorectal cancer, Onset Age: 39 Kidney carcinoma, Onset Age: 67 Maternal Grandmother Colorectal cancer, Onset Age: 70 Maternal Aunt Colorectal cancer Surgical History History of incisional hernia repair (03/15/22) History of repair of rectocele Hx of appendectomy Hx of colonoscopy Social History Household Members: Caregiver Household Members Other:: lives [facility] Housing: [facility] Housing Other:: nursing home [facility] [phone] Are you a primary patient care technician to a significant other at home: No Do you presently have visiting nurse or other home services: Yes (as above noted) Unable to assess alcohol history related to: Unable to respond Alcohol intake: never Patient Tobacco Use Status: Never used Tobacco Smoked in Last 30 Days: No Second Hand Smoke Exposure: No Use of substances other than those prescribed or required for medical reasons: No Advance Directives: Yes Advance Directives on File: Yes Advance Directives Date on File: 11/21/19 service: No Current occupational status: disabled Meds Allergies Allergy/AdvReac Type Severity Reaction Status Date / Time aripiprazole [From ABILIFY] Allergy Severe Involuntary Verified 04/23/22 00:10 Spasms droperidol [From INAPSINE] Allergy Severe Involuntary Verified 04/23/22 00:10 Spasms haloperidol [From HALDOL] Allergy Severe Involuntary Verified 04/23/22 00:10 Spasms prochlorperazine Allergy Severe Involuntary Verified 04/23/22 00:10 [From COMPAZINE] Spasms promethazine [From PHENERGAN] Allergy Severe Involuntary Verified 04/23/22 00:10 Spasms sulfamethoxazole Allergy Severe Anaphylaxis Verified 04/23/22 00:10 [From BACTRIM] trimethoprim [From BACTRIM] Allergy Severe Anaphylaxis Verified 04/23/22 00:10 Active Medications: Current Medications Acetaminophen (Acetaminophen 325 Mg Tablet) 650 mg PO Q6H PRN PRN Reason: Pain, Mild (Pain Scale 1-3) Docusate Sodium (Docusate Sodium 100 Mg Capsule) 100 mg PO DAILY PRN PRN Reason: Constipation Heparin Sodium (Porcine) (Heparin Sodium,Porcine 5,000 Unit/Ml Vial) 5,000 unit SUBCUT Q12H MAIA Ceftriaxone Sodium 1 gm/ (Sodium Chloride) 50 mls @ 100 mls/hr IV Q24H MAIA Azithromycin 500 mg/ Sodium (Chloride) 250 mls @ 125 mls/hr IV Q24H MAIA Ondansetron HCl (Ondansetron Hcl 4 Mg/2 Ml Vial) 4 mg IVPUSH Q8H PRN PRN Reason: Nausea and Vomiting Pharmacy Consult (Consult Rx Perform Med Rec) 1 each MISCELLANE ONCE PRN PRN Reason: Consult order Sodium Chloride (0.9 % Sodium Chloride Flush 3 Ml Syringe) [facility] Medication Instructions Recorded Confirmed Last Taken Type diazepam 2 mg tablet 2 mg PO BID 11/17/19 05/11/22 03/15/22 History melatonin 1 mg tablet 1 mg PO BEDTIME 11/17/19 05/11/22 11/16/19 History acetaminophen 500 mg tablet 500 mg PO Q6H PRN FEVER/MILD PAIN 02/13/20 05/11/22 Unknown History bisacodyl 10 mg rectal suppository 10 mg NJ Q24H PRN Constipation 02/13/20 05/11/22 Unknown History cholecalciferol (vitamin D3) 25 50 mcg PO DAILY 02/13/20 05/11/22 Unknown History mcg (1,000 unit) tablet ibuprofen 800 mg tablet 800 mg PO Q8H PRN FEVER/PAIN 02/13/20 05/11/22 Unknown History polyethylene glycol 3350 17 17 g PO Q24H PRN Constipation 02/13/20 05/11/22 Unknown History gram/dose oral powder pregabalin 100 mg capsule 100 mg PO TID 02/13/20 05/11/22 03/15/22 History sennosides 8.6 mg-docusate sodium 1 tab-cap PO DAILY 02/13/20 05/11/22 Unknown History 50 mg capsule (Senna Plus) sennosides 8.6 mg-docusate sodium 1 tab-cap PO Q24H PRN Constipation 02/13/20 05/11/22 Unknown History 50 mg capsule (Senna Plus) witch monica 50 % topical pads 1 pad topical Q24H PRN Hemorrhoids 02/13/20 05/11/22 Unknown History lactulose 10 gram/15 mL (15 mL) 30 ml PO DAILY 03/09/22 05/11/22 Unknown History oral solution polyethylene glycol 3350 17 17 g PO BID 03/09/22 05/11/22 Unknown History gram/dose oral powder (Miralax) risperidone 0.25 mg tablet 0.125 mg PO DAILY 03/09/22 05/11/22 03/15/22 History risperidone 0.25 mg tablet 0.25 mg PO BEDTIME 03/09/22 05/11/22 Unknown History divalproex 500 mg tablet,extended 500 mg PO BID 04/20/22 05/11/22 Unknown History release 24 hr (Depakote ER) lidocaine 5 % topical ointment 1 appl topical Q6H PRN Hemorrhoids 04/23/22 05/11/22 Unknown History metoprolol succinate 25 mg 25 mg PO BID 04/23/22 05/11/22 Unknown History tablet,extended release 24 hr sodium phosphates 19 gram-7 118 ml NJ DAILY PRN Constipation 04/23/22 05/11/22 Unknown History gram/118 mL enema (Fleet Enema) aluminum-mag hydroxide-simethicone 30 ml PO Q4H PRN Heartburn 05/11/22 05/11/22 Unknown History 200 mg-200 mg-20 mg/5 mL oral susp dextromethorphan-guaifenesin 10 10 ml PO Q4H PRN Cough 05/11/22 05/11/22 Unknown History mg-100 mg/5 mL oral syrup (Tussin DM) psyllium 1 packet PO BID 05/11/22 05/11/22 Unknown History Physical Exam Vital Signs and Narrative: Vital Signs: Last Vital Signs Temp 102.7 F H 05/11/22 19:27 Pulse 110 H 05/11/22 20:00 Resp 24 H 05/11/22 20:00 BP 118/80 05/11/22 20:00 Pulse Ox 94 05/11/22 20:00 O2 Del Method Room Air 05/11/22 20:00 O2 Flow Rate 4 05/11/22 14:43 BMI result Body Mass Index 33.3 Const: Other: Patient alert, oriented to self General: cooperative and no acute distress Eyes: General: appearance normal, both eyes and all related structures Resp: Other: Crackles bilaterally, normal respiratory effort Effort & Inspection: able to speak in complete sentences Cardio: Rate: regular rate Rhythm: regular rhythm GI: Palpation (GI): Soft to palpation Auscultation: normal bowel sounds Skin: General skin exam: no rashes or lesions noted Extrem: General: Yes normal to inspection and Yes no pedal edema Results Labs 05/11/22 16:23 05/11/22 15:33 Labs: Laboratory Results - last 24 hr 05/11/22 05/11/22 05/11/22 15:33 15:33 15:33 MCV MCH MCHC RDW Plt Count MPV Immature Gran % (Auto) Neut % (Auto) Lymph % (Auto) Reagan % (Auto) Eos % (Auto) Baso % (Auto) Lymph # (Auto) Reagan # (Auto) Eos # (Auto) Baso # (Auto) Abs Immat Gran (auto) Absolute Neuts (auto) Absolute Nucleated RBC Nucleated RBC % (auto) Smear Tech's Comments PT 13.1 INR 1.1 D-Dimer High Sensitivty 1387 Anion Gap 15 Estim Creat Clear Calc 91.7 Estimated GFR > 60 Random Glucose 97 Lactic Acid Lactic Acid F/U @ 2Hr Calcium 8.9 D Total Bilirubin 1.0 AST 12 ALT 9 Alkaline Phosphatase 51 Total Creatine Kinase 26 L Troponin I High Sens 12.7 D B-Natriuretic Peptide Total Protein 6.1 L Albumin 3.3 L Urine Color Urine Appearance Urine pH Ur Specific [place] Urine Protein Urine Glucose (UA) Urine Ketones Urine Blood Urine Nitrite Ur Leukocyte Esterase Urine RBC Urine WBC Ur Squamous Epith Cells Urine Bacteria Hyaline Casts COVID-19 (DIEGO) COVID-19 Clin Com 05/11/22 05/11/22 05/11/22 15:33 16:23 16:23 MCV 94.5 MCH 30.1 MCHC 31.8 RDW 14.1 Plt Count 74 L MPV 11.7 Immature Gran % (Auto) 0.3 Neut % (Auto) 81.8 H Lymph % (Auto) 10.3 L Reagan % (Auto) 6.3 Eos % (Auto) 1.0 Baso % (Auto) 0.3 Lymph # (Auto) 1.2 Reagan # (Auto) 0.7 Eos # (Auto) 0.1 Baso # (Auto) 0.0 Abs Immat Gran (auto) 0.04 H Absolute Neuts (auto) 9.4 H Absolute Nucleated RBC 0.000 Nucleated RBC % (auto) 0.0 Smear Tech's Comments VERIFIED PT INR D-Dimer High Sensitivty Anion Gap Estim Creat Clear Calc Estimated GFR Random Glucose Lactic Acid Lactic Acid F/U @ 2Hr Calcium Total Bilirubin AST ALT Alkaline Phosphatase Total Creatine Kinase Troponin I High Sens B-Natriuretic Peptide 79 Total Protein Albumin Urine Color Urine Appearance Urine pH Ur Specific [place] Urine Protein Urine Glucose (UA) Urine Ketones Urine Blood Urine Nitrite Ur Leukocyte Esterase Urine RBC Urine WBC Ur Squamous Epith Cells Urine Bacteria Hyaline Casts COVID-19 ([facility]IEGO) Negative COVID-19 Clin Com See Note 05/11/22 05/11/22 05/11/22 17:56 20:10 21:13 MCV MCH MCHC RDW Plt Count MPV Immature Gran % (Auto) Neut % (Auto) Lymph % (Auto) Reagan % (Auto) Eos % (Auto) Baso % (Auto) Lymph # (Auto) Reagan # (Auto) Eos # (Auto) Baso # (Auto) Abs Immat Gran (auto) Absolute Neuts (auto) Absolute Nucleated RBC Nucleated RBC % (auto) Smear Tech's Comments PT INR D-Dimer High Sensitivty Anion Gap Estim Creat Clear Calc Estimated GFR Random Glucose Lactic Acid 2.5 H* Lactic Acid F/U @ 2Hr 1.2 Calcium Total Bilirubin AST ALT Alkaline Phosphatase Total Creatine Kinase Troponin I High Sens B-Natriuretic Peptide Total Protein Albumin Urine Color Yellow Urine Appearance Clear Urine pH 6.5 Ur Specific [place] >= 1.030 H Urine Protein 30 (1+) H Urine Glucose (UA) Negative Urine Ketones 15 Urine Blood Negative Urine Nitrite Positive H Ur Leukocyte Esterase Trace H Urine RBC 0-2 Urine WBC 21-50 H Ur Squamous Epith Cells 0-2 Urine Bacteria 1+ Hyaline Casts 0-2 COVID-19 ([facility]) COVID-19 Clin Com Imaging Radiologist's Impressions: Impressions Chest X-Ray 05/11/22 14:33 IMPRESSION: Mild elevated right hemidiaphragm without any acute pulmonary process. Chest CTA 05/11/22 19:22 IMPRESSION: No central or lobar pulmonary embolism however respiratory motion limits assessment for segmental or subsegmental pulmonary emboli. Patchy bibasilar consolidation raises suspicion for aspiration or infection. Gallbladder is distended without christiane radiopaque gallstones partially imaged. Assessment and Plan (1) Acute respiratory failure with hypoxia: Status: Acute (2) Community acquired pneumonia: Status: Acute (3) Lactic acidosis: Status: Acute (4) Sepsis: Qualifiers: Sepsis acute organ dysfunction status: unspecified Sepsis type: sepsis due to unspecified organism Qualified Code(s): A41.9 - Sepsis, unspecified organism Status: Acute Plan 57-year-old male with past medical history of cognitive impairment, hypertension, among others presents to the hospital with complaints of shortness of breath, cough, found to have acute pneumonia failed outpatient therapy # sepsis - secondary to pneumonia - tachycardia, tachypnea, afebrile, has leukocytosis - will treat with IV antibiotics - follow cultures # community-acquired pneumonia - failed outpatient therapy - complicated by hypoxia and sepsis - will treat with IV antibiotics - follow cultures # lactic acidosis - secondary to above - improved with IV fluids # acute hypoxic respiratory failure - secondary to acute pneumonia - CTA negative for PE - will treat with oxygen supplement as required - monitor respiratory status - COVID-19 negative # hypertension - BP soft, will hold antihypertensives # history of seizure disorder - continue antiepileptics DVT prophylaxis: Heparin subQ Given patient's need for IV antibiotics after failing outpatient therapy, as well as history on presentation w sepsis patient will require minimum 2 nights inpatient hospital stay for further management and monitoring Time Spent With Patient Time: Total time managing care of this patient today ____ minutes. Quality Stroke Does the patient have a stroke diagnosis?: No VTE Prior VTE?: No VTE Risk Level:: Medical - moderate - high VTE Device Contraindication: Treatment Not Indicated VTE Drug Contraindication: N/A - Med Ordered
--- NOTE | 2022-05-11 22:03 | PC.NURSE ---
Pt reporting SOB, desatting to 84% on RA. O2 applied, 2 lpm via NC, O2 sat increased to 92%. Pt reports relief of SOB. Primary RN Charissa aware. Continue to monitor.
[2022-05-12] MEDS: Divalproex Sodium ER 500 MG TAB.ER.24H PO ×3 (01:09→19:37)
[2022-05-12] MEDS: Heparin Sodium,Porcine 5,000 UNIT/ML VIAL 5000 UNIT SUBCUT ×3 (01:09→20:53)
[2022-05-12] MEDS: Melatonin 3 MG TABLET PO ×2 (01:10→19:37)
[2022-05-12] MEDS: diazePAM 2 MG TABLET PO ×3 (01:10→19:38)
[2022-05-12] MEDS: 0.9 % Sodium Chloride Flush 3 ML SYRINGE IVFLUSH ×4 (01:11→20:54)
[2022-05-12 01:27] VITALS: BP 92/61; TEMP 36.6; O2SAT 92
--- NOTE | 2022-05-12 01:31 | PC.NURSE ---
RN to RN report given to GILBERTO Desir. Pt being transferred to room 369 and aware of plan of care.
[2022-05-12 01:44] VITALS: BMI 37.8
[2022-05-12 01:52] VITALS: BP 115/57; PULSE 104; RESP 20; TEMP 37.1; O2SAT 96
[2022-05-12 06:40] LABS: MANUAL DIFF FLAG NO
[2022-05-12 06:52] LABS: Basophils Percent Auto 0.1 % (0-2); Eosinophils Absolute Auto 0.2 X10*3/uL (0.0-0.4); Eosinophils Percent Auto 1.9 % (0-4); Hematocrit 40.4 % (42.0-52.0); Imm Gran Abs Auto 0.05 X10*3/uL (0.00-0.03); Imm Gran Pct Auto 0.5 % (0.0-0.4); Lymphocytes Percent Auto 10.8 % (20-40); Mean Corpuscular HGB Conc 32.2 g/dl (31.0-36.0); Mean Corpuscular Hemoglobin 30.1 pg (27.0-33.0); Mean Corpuscular Volume 93.5 fL (80.0-98.0); Mean Platelet Volume 11.7 fL (9.4-12.4); Monocytes Absolute Auto 0.7 X10*3/uL (0.1-1.2); Monocytes Percent Auto 7.1 % (2-11); Neutrophils Absolute Auto 7.3 x10*3/uL (2.0-8.3); Neutrophils Percent Auto 79.6 % (45-73); Red Blood Count 4.32 X10*6/uL (4.60-5.80); Red Cell Distribution Width 14.1 % (11.0-16.0); White Blood Count 9.2 X10*3/uL (4.8-10.8)
[2022-05-12 06:53] LABS: Platelet Count 71 X10*3/uL (160-400)
[2022-05-12 07:15] LABS: Anion Gap 10 (12-20); Blood Urea Nitrogen 12 mg/dL (9-16); Calcium 7.9 mg/dL (8.4-10.2); Carbon Dioxide 30 mmol/L (22-29); Chloride 107 mmol/L (96-108); Estimated Glomerular Filt Rate > 60; Glucose Random 94 mg/dL (60-115); Sodium 143 mmol/L (135-145)
[2022-05-12 07:38] VITALS: BP 109/50; PULSE 99; RESP 18; TEMP 37.3; O2SAT 96
[2022-05-12] MEDS: risperiDONE 0.25 MG TABLET 0.125 MG PO (09:29)
[2022-05-12] MEDS: Lactulose 20 GM/30 ML SOLUTION PO (09:29)
[2022-05-12] MEDS: Pregabalin 100 MG CAPSULE PO ×3 (09:30→19:37)
[2022-05-12] MEDS: Sennosides/Docusate Sodium TABLET 1 TAB PO (09:31)
[2022-05-12] MEDS: Metoprolol Succinate ER 25 MG TAB.ER.24H PO ×2 (09:31→19:38)
[2022-05-12] MEDS: Cholecalciferol (Vitamin D3) 25 MCG TABLET 50 MCG PO (09:31)
--- NOTE | 2022-05-12 11:03 | MHC.CM.PN ---
CM MET WITH PT AND HIS SISTER AT BEDSIDE PT IS A LTC RESIDENT OF [facility] HE USES A WALKER TO AMBULATE AND REQUIRES ASSISTANCE WITH CARE PT HAS A HCP AND MOLST ON FILE HE IS COVID VAX X 4 PCP: GIORGIO NGUYEN DCP: RETURN TO [facility] PTS SISTER MAY DRIVE HIM HOME DEPENDING ON HIS CONDITION/DC TIME, OTHERWISE HE WILL NEED BLS
[2022-05-12] MEDS: guaiFENesin DM 100/10/5 ML 5 ML SYRUP 10 ML PO ×2 (13:21→19:37)
[2022-05-12] MEDS: Acetaminophen 325 MG TABLET 650 MG PO ×2 (13:21→19:37)
[2022-05-12 15:50] VITALS: BP 104/55; PULSE 76; RESP 18; TEMP 36.4; O2SAT 96
[2022-05-12] MEDS: cefTRIAXone sodium 1 GM in 0.9 % Sodium Chloride 50 ML IV (16:09)
--- NOTE | 2022-05-12 16:18 | HO.PM.IMPN ---
Subjective Subjective Date of Service: 05/12/22 Interval History: acute hypoxemic respiratory failure secondary to pneumonia. Review of Systems Patient still short of breath and has cough no fevers Physical Exam Vital Signs: Vital Signs: Last Vital Signs Temp 97.6 F 05/12/22 15:50 Pulse 76 05/12/22 15:50 Resp 18 05/12/22 15:50 BP 104/55 L 05/12/22 15:50 Pulse Ox 96 05/12/22 15:50 O2 Del Method Nasal Cannula 05/12/22 15:50 O2 Flow Rate 2 05/12/22 15:50 BMI result Body Mass Index 37.8 Appearance: Alert.? Oriented X3.sob. cvs: rrr, [id number] . res: clear to auscultation ,no rhonchii or wheezing abd: no rebound or guarding ,nt, bs present. ext pulses present , no cyanosis . neuro: axo3 , nonfocal. Objective Data Active Medications Acetaminophen (Acetaminophen 325 Mg Tablet) 650 mg PO Q6H PRN PRN Reason: Pain, Mild (Pain Scale 1-3) Last Admin: 05/12/22 13:21 Dose: 650 mg Documented By: VILMA Al Hydroxide/Mg Hydroxide (Magnesium Hydrox/Alum Hydrox 30 Ml Oral.Susp) 30 ml PO Q4H PRN PRN Reason: Heartburn Bisacodyl (Bisacodyl 10 Mg Supp.Rect) 10 mg [place] Q24H PRN PRN Reason: Constipation Diazepam (Diazepam 2 Mg Tablet) 2 mg PO BID [facility] Last Admin: 05/12/22 09:31 Dose: 2 mg Documented By: MICHELE Divalproex Sodium (Divalproex Sodium Er 500 Mg Tab.Er.24h) 500 mg PO BID [facility] Last Admin: 05/12/22 09:30 Dose: 500 mg Documented By: MICHELE Docusate Sodium (Docusate Sodium 100 Mg Capsule) 100 mg PO DAILY PRN PRN Reason: Constipation Guaifenesin/Dextromethorphan (Guaifenesin Dm 100/10/5 Ml 5 Ml Syrup) 10 ml PO Q4H PRN PRN Reason: Cough Last Admin: 05/12/22 13:21 Dose: 10 ml Documented By: VILMA Heparin Sodium (Porcine) (Heparin Sodium,Porcine 5,000 Unit/Ml Vial) 5,000 unit SUBCUT Q12H [facility] Last Admin: 05/12/22 09:31 Dose: 5,000 unit Documented By: MICHELE Ceftriaxone Sodium 1 gm/ (Sodium Chloride) 50 mls @ 100 mls/hr IV Q24H [facility] Last Admin: 05/12/22 16:09 Dose: 100 mls/hr Documented By: MICHELE Azithromycin 500 mg/ Sodium (Chloride) 250 mls @ 125 mls/hr IV Q24H [facility] Lactulose (Lactulose 20 Gm/30 Ml Solution) 20 gm PO DAILY [facility] Last Admin: 05/12/22 09:29 Dose: 20 gm Documented By: MICHELE Lidocaine (Lidocaine 5 % Ointment 35 Gm) 1 appl TOPICAL Q6H PRN; Protocol PRN Reason: Hemorrhoids Melatonin (Melatonin 3 Mg Tablet) 3 mg PO BEDTIME [facility] Last Admin: 05/12/22 01:10 Dose: 3 mg Documented By: DONNA Metoprolol Succinate (Metoprolol Succinate Er 25 Mg Tab.Er.24h) 25 mg PO BID [facility]; Protocol Last Admin: 05/12/22 09:31 Dose: 25 mg Documented By: MICHELE Ondansetron HCl (Ondansetron Hcl 4 Mg/2 Ml Vial) 4 mg IVPUSH Q8H PRN PRN Reason: Nausea and Vomiting Pharmacy Consult (Consult Rx Perform Med Rec) 1 each MISCELLANE ONCE PRN PRN Reason: Consult order Polyethylene Glycol (Polyethylene Glycol 3350 17 Gm Powd.Pack) 17 gm PO Q24H PRN PRN Reason: Constipation Pregabalin (Pregabalin 100 Mg Capsule) 100 mg PO TID [facility] Last Admin: 05/12/22 16:09 Dose: 100 mg Documented By: MICHELE Psyllium Hydrophilic Mucilloid (Psyllium Seed 3.4 Gm Powd.Pack) 3.4 gm PO BID [facility] Last Admin: 05/12/22 09:31 Dose: 3.4 gm Documented By: MICHELE Risperidone (Risperidone 0.25 Mg Tablet) 0.125 mg PO DAILY [facility] Last Admin: 05/12/22 09:29 Dose: 0.125 mg Documented By: MICHELE Risperidone (Risperidone 0.25 Mg Tablet) 0.25 mg PO BEDTIME [facility] Last Admin: 05/12/22 01:10 Dose: Not Given Documented By: DONNA Non-Admin Reason: Patient Refused Senna/Docusate Sodium (Sennosides/Docusate Sodium Tablet) 1 tab PO DAILY [facility] Last Admin: 05/12/22 09:31 Dose: 1 tab Documented By: MICHELE Sodium Chloride (0.9 % Sodium Chloride Flush 3 Ml Syringe) 3 ml IVFLUSH QSHIFT [facility] Last Admin: 05/12/22 16:09 Dose: 3 ml Documented By: MICHELE Vitamin D (Cholecalciferol (Vitamin D3) 25 Mcg Tablet) 50 mcg PO DAILY [facility] Last Admin: 05/12/22 09:31 Dose: 50 mcg Documented By: MICHELE Labs 05/12/22 06:25 05/12/22 06:25 Labs: Laboratory Results - last 24 hr 05/11/22 05/11/22 05/11/22 15:33 15:33 16:23 MCV 94.5 MCH 30.1 MCHC 31.8 RDW 14.1 Plt Count 74 L MPV 11.7 Immature Gran % (Auto) 0.3 Neut % (Auto) 81.8 H Lymph % (Auto) 10.3 L Edwards % (Auto) 6.3 Eos % (Auto) 1.0 Baso % (Auto) 0.3 Lymph # (Auto) 1.2 Edwards # (Auto) 0.7 Eos # (Auto) 0.1 Baso # (Auto) 0.0 Abs Immat Gran (auto) 0.04 H Absolute Neuts (auto) 9.4 H Absolute Nucleated RBC 0.000 Nucleated RBC % (auto) 0.0 Smear Tech's Comments VERIFIED D-Dimer High Sensitivty 1387 Anion Gap Estim Creat Clear Calc Estimated GFR Random Glucose Lactic Acid Lactic Acid F/U @ 2Hr Calcium Total Creatine Kinase 26 L B-Natriuretic Peptide Urine Color Urine Appearance Urine pH Ur Specific [place] Urine Protein Urine Glucose (UA) Urine Ketones Urine Blood Urine Nitrite Ur Leukocyte Esterase Urine RBC Urine WBC Ur Squamous Epith Cells Urine Bacteria Hyaline Casts 05/11/22 05/11/22 05/11/22 16:23 17:56 20:10 MCV MCH MCHC RDW Plt Count MPV Immature Gran % (Auto) Neut % (Auto) Lymph % (Auto) Edwards % (Auto) Eos % (Auto) Baso % (Auto) Lymph # (Auto) Edwards # (Auto) Eos # (Auto) Baso # (Auto) Abs Immat Gran (auto) Absolute Neuts (auto) Absolute Nucleated RBC Nucleated RBC % (auto) Smear Tech's Comments D-Dimer High Sensitivty Anion Gap Estim Creat Clear Calc Estimated GFR Random Glucose Lactic Acid 2.5 H* Lactic Acid F/U @ 2Hr 1.2 Calcium Total Creatine Kinase B-Natriuretic Peptide 79 Urine Color Urine Appearance Urine pH Ur Specific [place] Urine Protein Urine Glucose (UA) Urine Ketones Urine Blood Urine Nitrite Ur Leukocyte Esterase Urine RBC Urine WBC Ur Squamous Epith Cells Urine Bacteria Hyaline Casts 05/11/22 05/12/22 05/12/22 21:13 06:25 06:25 MCV 93.5 MCH 30.1 MCHC 32.2 RDW 14.1 Plt Count 71 L MPV 11.7 Immature Gran % (Auto) 0.5 H Neut % (Auto) 79.6 H Lymph % (Auto) 10.8 L Edwards % (Auto) 7.1 Eos % (Auto) 1.9 Baso % (Auto) 0.1 Lymph # (Auto) 1.0 L Edwards # (Auto) 0.7 Eos # (Auto) 0.2 Baso # (Auto) 0.0 Abs Immat Gran (auto) 0.05 H Absolute Neuts (auto) 7.3 Absolute Nucleated RBC 0.000 Nucleated RBC % (auto) 0.0 Smear Tech's Comments D-Dimer High Sensitivty Anion Gap 10 L Estim Creat Clear Calc 125.0 Estimated GFR > 60 Random Glucose 94 Lactic Acid Lactic Acid F/U @ 2Hr Calcium 7.9 L D Total Creatine Kinase B-Natriuretic Peptide Urine Color Yellow Urine Appearance Clear Urine pH 6.5 Ur Specific [place] >= 1.030 H Urine Protein 30 (1+) H Urine Glucose (UA) Negative Urine Ketones 15 Urine Blood Negative Urine Nitrite Positive H Ur Leukocyte Esterase Trace H Urine RBC 0-2 Urine WBC 21-50 H Ur Squamous Epith Cells 0-2 Urine Bacteria 1+ Hyaline Casts 0-2 Microbiology Microbiology Results: Microbiology 05/11/22 Unknown Urine Culture - Preliminary Urine clean catch - Urine jasso top Culture too young to evaluate. Assessment and Plan (1) Community acquired pneumonia: Status: Acute (2) Acute respiratory failure with hypoxia: Status: Acute (3) Shortness of breath: Status: Acute Plan 57-year-old male with past medical history of cognitive impairment, hypertension, among others presents to the hospital with complaints of shortness of breath, cough, found to have acute pneumonia failed outpatient therapy sepsis- secondary to pneumonia tachycardia/ tachypnea improving, afebrile, leukocytosis resolved . continue IV antibiotics, follow cultures community-acquired pneumonia- failed outpatient therapy. complicated by hypoxia and sepsis continue treat with IV antibiotics, follow cultures acute lactic acidosis- secondary to above. resolved with IV fluids acute hypoxic respiratory failure- secondary to acute pneumonia. - CTA negative for PE,treat with oxygen supplement as required,monitor respiratory status COVID-19 negative hypertension- BP soft, will hold antihypertensives history of seizure disorder- continue antiepileptics. obesity: advised to lose weight. DVT prophylaxis:? Heparin subQ inpatient need:IV antibiotics after failing outpatient therapy, as well as history on presentation w sepsis- need iv antibiotics ,blood cultures pending. Time Spent With Patient Time: Total time managing care of this patient today ____ minutes. Quality Stroke Does the patient have a stroke diagnosis?: No VTE Prior VTE?: No VTE Risk Level:: Medical - moderate - high VTE Device Contraindication: Treatment Not Indicated VTE Drug Contraindication: N/A - Med Ordered
[2022-05-12] MEDS: Azithromycin 500 MG in 0.9 % Sodium Chloride 250 ML 125 MG IV (18:26)
[2022-05-12 19:28] VITALS: BP 107/55; PULSE 85; RESP 18; TEMP 36.5; O2SAT 95
[2022-05-13 03:09] VITALS: BP 102/54; PULSE 63; RESP 16; TEMP 36.3; O2SAT 97
[2022-05-13 07:11] VITALS: BP 104/58; PULSE 78; RESP 16; TEMP 36.6; O2SAT 97
[2022-05-13 08:55] VITALS: BP 125/63; PULSE 68
[2022-05-13] MEDS: Lactulose 20 GM/30 ML SOLUTION PO (09:16)
[2022-05-13] MEDS: Cholecalciferol (Vitamin D3) 25 MCG TABLET 50 MCG PO (09:17)
[2022-05-13] MEDS: Divalproex Sodium ER 500 MG TAB.ER.24H PO ×2 (09:17→20:37)
[2022-05-13] MEDS: Sennosides/Docusate Sodium TABLET 1 TAB PO (09:17)
[2022-05-13] MEDS: diazePAM 2 MG TABLET PO ×2 (09:17→20:36)
[2022-05-13] MEDS: Metoprolol Succinate ER 25 MG TAB.ER.24H PO ×2 (09:17→20:37)
[2022-05-13] MEDS: Pregabalin 100 MG CAPSULE PO ×2 (09:17→15:50)
[2022-05-13] MEDS: Heparin Sodium,Porcine 5,000 UNIT/ML VIAL 5000 UNIT SUBCUT ×2 (09:18→20:37)
[2022-05-13] MEDS: Acetaminophen 325 MG TABLET 650 MG PO ×2 (10:20→20:51)
[2022-05-13] MEDS: guaiFENesin DM 100/10/5 ML 5 ML SYRUP 10 ML PO ×2 (10:21→20:39)
[2022-05-13] MEDS: 0.9 % Sodium Chloride Flush 3 ML SYRINGE IVFLUSH ×3 (10:22→20:37)
--- NOTE | 2022-05-13 10:41 | HO.PM.IMPN ---
Subjective Subjective Date of Service: 05/13/22 Interval History: acute hypoxemic respiratory failure secondary to pneumonia. Review of Systems Patient still short of breath and has cough no fevers Physical Exam Vital Signs: Vital Signs: Last Vital Signs Temp 97.8 F 05/13/22 07:11 Pulse 68 05/13/22 08:55 Resp 16 05/13/22 07:11 BP 125/63 05/13/22 08:55 Pulse Ox 97 05/13/22 07:11 O2 Del Method Room Air 05/13/22 07:11 O2 Flow Rate 2 05/12/22 15:50 BMI result Body Mass Index 37.8 Appearance: Alert.? Oriented X3.sob. cvs: rrr, [id number] . res: clear to auscultation ,no rhonchii or wheezing abd: no rebound or guarding ,nt, bs present. ext pulses present , no cyanosis . neuro: axo3 , nonfocal. Objective Data Active Medications Acetaminophen (Acetaminophen 325 Mg Tablet) 650 mg PO Q6H PRN PRN Reason: Pain, Mild (Pain Scale 1-3) Last Admin: 05/13/22 10:20 Dose: 650 mg Documented By: GRACE Al Hydroxide/Mg Hydroxide (Magnesium Hydrox/Alum Hydrox 30 Ml Oral.Susp) 30 ml PO Q4H PRN PRN Reason: Heartburn Bisacodyl (Bisacodyl 10 Mg Supp.Rect) 10 mg [place] Q24H PRN PRN Reason: Constipation Diazepam (Diazepam 2 Mg Tablet) 2 mg PO BID [facility] Last Admin: 05/13/22 09:17 Dose: 2 mg Documented By: JANET Divalproex Sodium (Divalproex Sodium Er 500 Mg Tab.Er.24h) 500 mg PO BID [facility] Last Admin: 05/13/22 09:17 Dose: 500 mg Documented By: JANET Docusate Sodium (Docusate Sodium 100 Mg Capsule) 100 mg PO DAILY PRN PRN Reason: Constipation Guaifenesin/Dextromethorphan (Guaifenesin Dm 100/10/5 Ml 5 Ml Syrup) 10 ml PO Q4H PRN PRN Reason: Cough Last Admin: 05/13/22 10:21 Dose: 10 ml Documented By: GRACE Heparin Sodium (Porcine) (Heparin Sodium,Porcine 5,000 Unit/Ml Vial) 5,000 unit SUBCUT Q12H [facility] Last Admin: 05/13/22 09:18 Dose: 5,000 unit Documented By: JANET Ceftriaxone Sodium 1 gm/ (Sodium Chloride) 50 mls @ 100 mls/hr IV Q24H [facility] Last Infusion: 05/12/22 16:50 Dose: 0 mls/hr Documented By: MICHELE Azithromycin 500 mg/ Sodium (Chloride) 250 mls @ 125 mls/hr IV Q24H [facility] Last Infusion: 05/12/22 20:58 Dose: 0 mls/hr Documented By: ABRAHAM Lactulose (Lactulose 20 Gm/30 Ml Solution) 20 gm PO DAILY [facility] Last Admin: 05/13/22 09:16 Dose: 20 gm Documented By: JANET Lidocaine (Lidocaine 5 % Ointment 35 Gm) 1 appl TOPICAL Q6H PRN; Protocol PRN Reason: Hemorrhoids Melatonin (Melatonin 3 Mg Tablet) 3 mg PO BEDTIME [facility] Last Admin: 05/12/22 19:37 Dose: 3 mg Documented By: ABRAHAM Metoprolol Succinate (Metoprolol Succinate Er 25 Mg Tab.Er.24h) 25 mg PO BID [facility]; Protocol Last Admin: 05/13/22 09:17 Dose: 25 mg Documented By: JANET Ondansetron HCl (Ondansetron Hcl 4 Mg/2 Ml Vial) 4 mg IVPUSH Q8H PRN PRN Reason: Nausea and Vomiting Pharmacy Consult (Consult Rx Perform Med Rec) 1 each MISCELLANE ONCE PRN PRN Reason: Consult order Polyethylene Glycol (Polyethylene Glycol 3350 17 Gm Powd.Pack) 17 gm PO Q24H PRN PRN Reason: Constipation Pregabalin (Pregabalin 100 Mg Capsule) 100 mg PO TID [facility] Last Admin: 05/13/22 09:17 Dose: 100 mg Documented By: JANET Psyllium Hydrophilic Mucilloid (Psyllium Seed 3.4 Gm Powd.Pack) 3.4 gm PO BID [facility] Last Admin: 05/13/22 09:17 Dose: 3.4 gm Documented By: JANET Risperidone (Risperidone 0.25 Mg Tablet) 0.125 mg PO DAILY [facility] Last Admin: 05/13/22 09:18 Dose: Not Given Documented By: JANET Non-Admin Reason: Previously Administered Comments: not given per patient's sister, medication is being held Risperidone (Risperidone 0.25 Mg Tablet) 0.25 mg PO BEDTIME [facility] Last Admin: 05/12/22 19:43 Dose: Not Given Documented By: ABRAHAM Non-Admin Reason: Patient Refused Senna/Docusate Sodium (Sennosides/Docusate Sodium Tablet) 1 tab PO DAILY [facility] Last Admin: 05/13/22 09:17 Dose: 1 tab Documented By: JANET Sodium Chloride (0.9 % Sodium Chloride Flush 3 Ml Syringe) 3 ml IVFLUSH QSHIFT [facility] Last Admin: 05/13/22 10:22 Dose: 3 ml Documented By: GRACE Vitamin D (Cholecalciferol (Vitamin D3) 25 Mcg Tablet) 50 mcg PO DAILY [facility] Last Admin: 05/13/22 09:17 Dose: 50 mcg Documented By: JANET Labs 05/12/22 06:25 05/12/22 06:25 Microbiology Microbiology Results: Microbiology 05/11/22 18:16 Blood Culture - Preliminary Blood - Venous No growth after 24 hours. 05/11/22 17:56 Blood Culture - Preliminary Blood - Venous No growth after 24 hours. 05/11/22 Unknown Urine Culture - Preliminary Urine clean catch - Urine jasso top Culture too young to evaluate. Assessment and Plan (1) Acute respiratory failure with hypoxia: Status: Acute (2) Community acquired pneumonia: Status: Acute (3) Sepsis: Status: Acute Plan 57-year-old male with past medical history of cognitive impairment, hypertension, among others presents to the hospital with complaints of shortness of breath, cough, found to have acute pneumonia failed outpatient therapy ?sepsis- secondary to pneumonia tachycardia/ tachypnea improved , afebrile,? leukocytosis resolved : sepsis improved continue? IV antibiotics, follow cultures- urine culture prelimiary, blood culture neg 24hrs ?community-acquired pneumonia- failed outpatient therapy. complicated by hypoxia and sepsis continue treat with IV antibiotics, follow cultures ?acute lactic acidosis- secondary to above. resolved? with IV fluids ?acute hypoxic respiratory failure- secondary to acute pneumonia. somewhat improving ,on 2 liter oxygen feels sob with excersion CTA negative for PE,?COVID-19 negative added res panel. taper oxygen supplement as required,monitor respiratory status hypertension- BP soft, will hold antihypertensives. ? history of seizure disorder- continue antiepileptics. obesity: advised to lose weight. DVT prophylaxis:? Heparin subQ inpatient need:acute hypoxemic respiratory failure, pneumonia - need iv antibiotics ,blood cultures pending(need to wait 48hrs since presented with sepsis), taper oxygen , respiratory status is not optimal yet. Time Spent With Patient Time: Total time managing care of this patient today ____ minutes. Quality Stroke Does the patient have a stroke diagnosis?: No VTE Prior VTE?: No VTE Risk Level:: Medical - moderate - high VTE Device Contraindication: Treatment Not Indicated VTE Drug Contraindication: N/A - Med Ordered
[2022-05-13 15:03] VITALS: BP 113/61; PULSE 84; RESP 18; TEMP 36.7; O2SAT 98
[2022-05-13] MEDS: cefTRIAXone sodium 1 GM in 0.9 % Sodium Chloride 50 ML IV (17:12)
[2022-05-13 20:00] VITALS: BP 144/78; PULSE 56; RESP 16; TEMP 36.8; O2SAT 98
[2022-05-13] MEDS: Azithromycin 500 MG in 0.9 % Sodium Chloride 250 ML 125 MG IV (20:36)
[2022-05-13] MEDS: Melatonin 3 MG TABLET PO (20:37)
[2022-05-14 03:15] VITALS: BP 121/71; PULSE 72; RESP 17; TEMP 36.4; O2SAT 95
[2022-05-14] MEDS: Pregabalin 100 MG CAPSULE PO ×3 (06:17→17:01)
[2022-05-14] MEDS: Lactulose 20 GM/30 ML SOLUTION PO (07:46)
[2022-05-14] MEDS: Divalproex Sodium ER 500 MG TAB.ER.24H PO ×2 (07:47→21:15)
[2022-05-14] MEDS: Cholecalciferol (Vitamin D3) 25 MCG TABLET 50 MCG PO (07:47)
[2022-05-14] MEDS: Sennosides/Docusate Sodium TABLET 1 TAB PO (07:47)
[2022-05-14] MEDS: diazePAM 2 MG TABLET PO ×2 (07:47→21:15)
[2022-05-14] MEDS: Metoprolol Succinate ER 25 MG TAB.ER.24H PO ×2 (07:48→21:15)
[2022-05-14] MEDS: Acetaminophen 325 MG TABLET 650 MG PO (07:48)
[2022-05-14] MEDS: 0.9 % Sodium Chloride Flush 3 ML SYRINGE IVFLUSH ×3 (07:48→21:26)
[2022-05-14] MEDS: guaiFENesin DM 100/10/5 ML 5 ML SYRUP 10 ML PO (07:48)
[2022-05-14 08:00] VITALS: BP 131/71; PULSE 63; RESP 18; TEMP 36.6; O2SAT 96
--- NOTE | 2022-05-14 10:33 | HO.PM.IMPN ---
Subjective Subjective Date of Service: 05/15/22 Interval History: acute hypoxemic respiratory failure secondary to pneumonia Review of Systems short of breath little improvement , oxygen demand seems improving has cough no fevers Physical Exam Vital Signs: Vital Signs: Last Vital Signs Temp 97.9 F 05/14/22 08:00 Pulse 63 05/14/22 08:00 Resp 18 05/14/22 08:00 BP 131/71 05/14/22 08:00 Pulse Ox 96 05/14/22 08:00 O2 Del Method Room Air 05/14/22 08:00 O2 Flow Rate 2 05/12/22 15:50 BMI result Body Mass Index 37.8 Appearance: Alert.? Oriented X3.sob. cvs: rrr, [id number] . res: clear to auscultation ,no rhonchii or wheezing abd: no rebound or guarding ,nt, bs present. ext pulses present , no cyanosis . neuro: axo3 , nonfocal. Objective Data Active Medications Acetaminophen (Acetaminophen 325 Mg Tablet) 650 mg PO Q6H PRN PRN Reason: Pain, Mild (Pain Scale 1-3) Last Admin: 05/14/22 07:48 Dose: 650 mg Documented By: GRACE Al Hydroxide/Mg Hydroxide (Magnesium Hydrox/Alum Hydrox 30 Ml Oral.Susp) 30 ml PO Q4H PRN PRN Reason: Heartburn Bisacodyl (Bisacodyl 10 Mg Supp.Rect) 10 mg [place] Q24H PRN PRN Reason: Constipation Diazepam (Diazepam 2 Mg Tablet) 2 mg PO BID [facility] Last Admin: 05/14/22 07:47 Dose: 2 mg Documented By: GRACE Divalproex Sodium (Divalproex Sodium Er 500 Mg Tab.Er.24h) 500 mg PO BID [facility] Last Admin: 05/14/22 07:47 Dose: 500 mg Documented By: GRACE Docusate Sodium (Docusate Sodium 100 Mg Capsule) 100 mg PO DAILY PRN PRN Reason: Constipation Guaifenesin/Dextromethorphan (Guaifenesin Dm 100/10/5 Ml 5 Ml Syrup) 10 ml PO Q4H PRN PRN Reason: Cough Last Admin: 05/14/22 07:48 Dose: 10 ml Documented By: GRACE Heparin Sodium (Porcine) (Heparin Sodium,Porcine 5,000 Unit/Ml Vial) 5,000 unit SUBCUT Q12H [facility] Last Admin: 05/13/22 20:37 Dose: 5,000 unit Documented By: CODY Ceftriaxone Sodium 1 gm/ (Sodium Chloride) 50 mls @ 100 mls/hr IV Q24H [facility] Last Infusion: 05/13/22 18:49 Dose: 0 mls/hr Documented By: GRACE Azithromycin 500 mg/ Sodium (Chloride) 250 mls @ 125 mls/hr IV Q24H [facility] Last Infusion: 05/13/22 23:38 Dose: 0 mls/hr Documented By: CODY Lactulose (Lactulose 20 Gm/30 Ml Solution) 20 gm PO DAILY [facility] Last Admin: 05/14/22 07:46 Dose: 20 gm Documented By: GRACE Lidocaine (Lidocaine 5 % Ointment 35 Gm) 1 appl TOPICAL Q6H PRN; Protocol PRN Reason: Hemorrhoids Melatonin (Melatonin 3 Mg Tablet) 3 mg PO BEDTIME [facility] Last Admin: 05/13/22 20:37 Dose: 3 mg Documented By: CODY Metoprolol Succinate (Metoprolol Succinate Er 25 Mg Tab.Er.24h) 25 mg PO BID [facility]; Protocol Last Admin: 05/14/22 07:48 Dose: 25 mg Documented By: GRACE Ondansetron HCl (Ondansetron Hcl 4 Mg/2 Ml Vial) 4 mg IVPUSH Q8H PRN PRN Reason: Nausea and Vomiting Pharmacy Consult (Consult Rx Perform Med Rec) 1 each MISCELLANE ONCE PRN PRN Reason: Consult order Polyethylene Glycol (Polyethylene Glycol 3350 17 Gm Powd.Pack) 17 gm PO Q24H PRN PRN Reason: Constipation Pregabalin (Pregabalin 100 Mg Capsule) 100 mg PO TID@0630,1130,1630 [facility] Last Admin: 05/14/22 06:26 Dose: Not Given Documented By: BETH Non-Admin Reason: Duplicate Order Psyllium Hydrophilic Mucilloid (Psyllium Seed 3.4 Gm Powd.Pack) 3.4 gm PO BID [facility] Last Admin: 05/14/22 07:48 Dose: 3.4 gm Documented By: GRACE Risperidone (Risperidone 0.25 Mg Tablet) 0.125 mg PO DAILY [facility] Last Admin: 05/14/22 10:02 Dose: Not Given Documented By: GRACE Non-Admin Reason: Patient Refused Risperidone (Risperidone 0.25 Mg Tablet) 0.25 mg PO BEDTIME [facility] Last Admin: 05/13/22 20:39 Dose: Not Given Documented By: CODY Non-Admin Reason: family refused Senna/Docusate Sodium (Sennosides/Docusate Sodium Tablet) 1 tab PO DAILY [facility] Last Admin: 05/14/22 07:47 Dose: 1 tab Documented By: GRACE Sodium Chloride (0.9 % Sodium Chloride Flush 3 Ml Syringe) 3 ml IVFLUSH QSHIFT [facility] Last Admin: 05/14/22 07:48 Dose: 3 ml Documented By: GRACE Vitamin D (Cholecalciferol (Vitamin D3) 25 Mcg Tablet) 50 mcg PO DAILY [facility] Last Admin: 05/14/22 07:47 Dose: 50 mcg Documented By: GRACE Labs 05/12/22 06:25 05/12/22 06:25 Microbiology Microbiology Results: Microbiology 05/11/22 18:16 Blood Culture - Preliminary Blood - Venous No growth after 48 hours. 05/11/22 17:56 Blood Culture - Preliminary Blood - Venous No growth after 48 hours. 05/11/22 Unknown Urine Culture - Final Urine clean catch - Urine jasso top Assessment and Plan (1) Acute respiratory failure with hypoxia: Status: Acute (2) Community acquired pneumonia: Status: Acute (3) Sepsis: Status: Acute Plan 57-year-old male with past medical history of cognitive impairment, hypertension, among others presents to the hospital with complaints of shortness of breath, cough, found to have acute pneumonia failed outpatient therapy ?sepsis- secondary to pneumonia tachycardia/ tachypnea improved , afebrile,? leukocytosis resolved : sepsis improved continue? IV antibiotics, follow cultures- urine culture prelimiary, blood culture neg 24hrs ?community-acquired pneumonia- failed outpatient therapy. complicated by hypoxia and sepsis continue treat with IV antibiotics, follow cultures ?acute lactic acidosis- secondary to above. resolved? with IV fluids ?acute hypoxic respiratory failure- secondary to acute pneumonia. somewhat improving ,on 2 liter oxygen feels sob with excersion CTA negative for PE,?COVID-19 negative added res panel. taper oxygen supplement as required,monitor respiratory status hypertension- BP soft, will hold antihypertensives. ? history of seizure disorder- continue antiepileptics. obesity: advised to lose weight. DVT prophylaxis:? Heparin subQ inpatient need:acute hypoxemic respiratory failure, pneumonia - need iv antibiotics , respiratory status is not optimal yet. Time Spent With Patient Time: Total time managing care of this patient today ____ minutes. Quality Stroke Does the patient have a stroke diagnosis?: No VTE Prior VTE?: No VTE Risk Level:: Medical - moderate - high VTE Device Contraindication: Treatment Not Indicated VTE Drug Contraindication: N/A - Med Ordered
[2022-05-14] MEDS: Heparin Sodium,Porcine 5,000 UNIT/ML VIAL 5000 UNIT SUBCUT ×2 (11:18→21:14)
[2022-05-14 15:11] VITALS: BP 112/56; PULSE 65; RESP 18; TEMP 36.6; O2SAT 96
[2022-05-14] MEDS: Benzonatate 100 MG CAPSULE 200 MG PO ×2 (17:01→21:15)
[2022-05-14] MEDS: cefTRIAXone sodium 1 GM in 0.9 % Sodium Chloride 50 ML IV (17:02)
[2022-05-14] MEDS: guaiFENesin LA 600 MG TAB.ER.12H PO ×2 (17:10→21:15)
[2022-05-14] MEDS: Azithromycin 500 MG in 0.9 % Sodium Chloride 250 ML 125 MG IV (18:25)
[2022-05-14 19:41] VITALS: BP 115/57; PULSE 71; RESP 17; TEMP 36.9; O2SAT 94
[2022-05-14] MEDS: Melatonin 3 MG TABLET PO (21:24)
[2022-05-15 03:38] VITALS: BP 99/51; PULSE 66; RESP 20; TEMP 37; O2SAT 93
[2022-05-15] MEDS: Pregabalin 100 MG CAPSULE PO ×2 (06:05→12:11)
[2022-05-15 08:00] VITALS: BP 116/74; PULSE 69; RESP 18; TEMP 36.3; O2SAT 93
[2022-05-15] MEDS: Lactulose 20 GM/30 ML SOLUTION PO (08:48)
[2022-05-15] MEDS: diazePAM 2 MG TABLET PO (08:49)
[2022-05-15] MEDS: Benzonatate 100 MG CAPSULE 200 MG PO (08:49)
[2022-05-15] MEDS: Divalproex Sodium ER 500 MG TAB.ER.24H PO (08:49)
[2022-05-15] MEDS: Heparin Sodium,Porcine 5,000 UNIT/ML VIAL 5000 UNIT SUBCUT (08:49)
[2022-05-15] MEDS: guaiFENesin LA 600 MG TAB.ER.12H PO (08:49)
[2022-05-15] MEDS: Sennosides/Docusate Sodium TABLET 1 TAB PO (08:49)
[2022-05-15] MEDS: Cholecalciferol (Vitamin D3) 25 MCG TABLET 50 MCG PO (08:50)
[2022-05-15] MEDS: 0.9 % Sodium Chloride Flush 3 ML SYRINGE IVFLUSH (10:16)
--- NOTE | 2022-05-15 10:23 | MHC.CM.PN ---
DP: PT HAS BEEN MEDICALLY CLEARED FOR DC BACK TO [facility] FOR RESUMPTION OF LTC. RN AWARE. SISTER AT BEDSIDE AND AWARE. [facility] NURSE KATHLEEN NOTIFIED OF RETURN. BLS TRANSPORT BOOKED FOR 1 PM [facility]IA [facility].
[2022-05-15] MEDS: Azithromycin 500 MG TABLET PO (10:35)
--- NOTE | 2022-05-15 10:41 | P.DS_ITS ---
DS: Providers Provider Date of Service: 05/15/22 Date of admission: 05/11/22 21:51 Date of discharge: 05/15/22 Primary care physician: Augustine Dan DO Attending physician on discharge: Fiordlaiza Reynolds Discharging clinician: Fiordaliza Reynolds DS: Diagnosis Discharge Diagnosis (1) Acute respiratory failure with hypoxia: Status: Acute (2) Community acquired pneumonia: Status: Acute (3) Sepsis: Status: Acute DS: Summary Hospital Course Hospital Course: 57-year-old male with past medical history of cognitive impairment, epilepsy, anxiety, HTN, major depressive disorder, OCD, history of thrombocytopenia, among others who [facility]. Sister at bedside gives most of the history, as patient is a poor historian given his cognitive impairment.? It appears the patient has been having a cough, as well as sputum production for the past 2 and half weeks.? He was treated with p.o. antibiotics outpatient completed regimen 3 days ago but continued to have shortness of breath, cough, difficulty breathing.? Patient complaining of chills with no fever.? No chest pain, no abdominal pain nausea or vomiting, no diarrhea constipation, no urinary symptoms and no lower extremity edema.? On arrival to the ED patient noted to be hypoxic satting to the 70s with minimal movement.? While at rest not moving he is setting low 90s.? Other vitals are significant for tachycardia and tachypnea in the 20s.? Labs are significant for WBC count of 11.5, lactic acid of 2.5 improved after IV fluids, now elevated D-dimer, BNP of 79, UA positive for leukocyte Estrace and WBC COVID-[address] chest angiogram done showed negative PE, but has patchy bilateral consolidation Patient started on IV antibiotics and will be admitted for further management. Hospital course: Patient was admitted because of sepsis, acute hypoxemic respiratory failure, pneumonia,Patient also had leukocytosis and lactic acidosis acute, CTA chest was done-showed patchy bilateral consolidation: Patient was started on IV antibiotics, blood cultures sent, IV hydration: With above supportive care patient seems to be improved off oxygen, sepsis and leukocytosis as well as lactic acidosis resolved, blood culture negative at 48 hours. Patient will be going to the rehab-with p.o. antibiotics, please complete the course of antibiotics and repeat chest imaging in 3-4 weeks to see resolution of pneumonia. Plan: Please complete the course of antibiotics, repeat chest imaging in 3-4 weeks to see resolution of pneumonia. Above management discussed with the patient and his in detail length, time spent 50 minute. In addition patient was saying that he is planning discuss further use of risperidol. Time Spent with Patient Time attestation: Total time managing care of this patient today ____ minutes. Discharge coordination time: Greater than 30 minutes Quality: Safe Use of Opioids Does Pt have an Active Cancer Diagnosis on the Problem List?: No Quality: Stroke Does the patient have a stroke diagnosis?: No Physical Exam Vital Signs: Vital Signs: Last Vital Signs Temp 97.4 F 05/15/22 08:00 Pulse 69 05/15/22 08:00 Resp 18 05/15/22 08:00 BP 116/74 05/15/22 08:00 Pulse Ox 93 05/15/22 08:00 O2 Del Method Room Air 05/15/22 08:00 O2 Flow Rate 2 05/12/22 15:50 BMI result Body Mass Index 37.8 Appearance: Alert.? Oriented X3.sob. cvs: rrr, [id number] . res: clear to auscultation ,no rhonchii or wheezing abd: no rebound or guarding ,nt, bs present. ext pulses present , no cyanosis . neuro: axo3 , nonfocal. DS: Data Data Completed and Pending Completed studies during hospitalization [Text1]: Procedures Supplement Abdominal Wall with Synthetic Substitute, Open Approach (03/15/22) Labs on day of discharge: Preliminary micro results at discharge 05/11/22 18:16 Blood Culture - Preliminary Blood - Venous No growth after 48 hours. 05/11/22 17:56 Blood Culture - Preliminary Blood - Venous No growth after 48 hours. Imaging Chest x-ray: Radiologist's impression: ITS Impressions Chest X-Ray 05/11/22 14:33 IMPRESSION: Mild elevated right hemidiaphragm without any acute pulmonary process. Chest CTA 05/11/22 19:22 IMPRESSION: No central or lobar pulmonary embolism however respiratory motion limits assessment for segmental or subsegmental pulmonary emboli. Patchy bibasilar consolidation raises suspicion for aspiration or infection. Gallbladder is distended without christiane radiopaque gallstones partially imaged. Discharge Plan Discharge Anticipated Discharge Date/Time: 05/15/22 09:50 Patient Disposition: Xfer SNF Discharge Diagnosis: acute hypoxemic respiratory failure with sepsis and pneumonia Referrals: [facility] [Outside] - 1 Week (TRANSPORT TO LTC FACILITY FOR RESUMPTION OF CARE) Augustine Dan DO [Primary Care Provider] - 1 Week Discharge Medications: New cefuroxime axetil 500 mg tablet 500 mg PO BID Qty: 14 0RF azithromycin 500 mg tablet 500 mg PO DAILY 6 Days Qty: 6 0RF Continued (DME) abdominal binder 2xl See Rx Instructions .Route .MEDSUPPLY Qty: 1 0RF Rx Instructions: Pt to wear binder during daytime hours - may remove for shower diazepam 2 mg Tablet 2 mg PO BID melatonin 1 mg Tablet 1 mg PO BEDTIME ibuprofen 800 mg Tablet 800 mg PO Q8H PRN (Reason: FEVER/PAIN) acetaminophen 500 mg Tablet 500 mg PO Q6H PRN (Reason: FEVER/MILD PAIN) bisacodyl 10 mg Suppository 10 mg MA Q24H PRN (Reason: Constipation) polyethylene glycol 3350 17 gram/dose Powder 17 g PO Q24H PRN (Reason: Constipation) pregabalin 100 mg Capsule 100 mg PO TID Rx Instructions: GIVE WITH 300 MG CAPSULE TO EQUAL 400 MG BID witch monica 50 % Pads, Medicated 1 pad TOPICAL Q24H PRN (Reason: Hemorrhoids) Senna Plus 8.6-50 mg Capsule 1 tab-cap PO Q24H PRN (Reason: Constipation) Senna Plus 8.6-50 mg Capsule 1 tab-cap PO DAILY cholecalciferol (vitamin D3) 25 mcg (1,000 unit) Tablet 50 mcg PO DAILY Fleet Enema 19-7 gram/118 mL Enema 118 ml MA DAILY PRN (Reason: Constipation) Rx Instructions: use only if bisacodyl suppository is ineffective metoprolol succinate 25 mg Tablet Extended Release 24 Hr 25 mg PO BID Rx Instructions: take with or after meals lidocaine 5 % Ointment 1 appl topical Q6H PRN (Reason: Hemorrhoids) Rx Instructions: PER RECTUM. APPLY PEA SIZE AMOUNT risperidone 0.25 mg Tablet 0.25 mg PO BEDTIME risperidone 0.25 mg Tablet 0.125 mg PO DAILY lactulose 10 gram/15 mL (15 mL) Solution 30 ml PO DAILY polyethylene glycol 3350 [Miralax] 17 gram/dose powder 17 g PO BID Rx Instructions: dilute in 6-8 ounces of fluid psyllium Packet 1 packet PO BID Rx Instructions: mix into at least 8 oz of water or juice before administering dextromethorphan-guaifenesin [Tussin DM] 10-100 mg/5 mL Syrup 10 ml PO Q4H PRN (Reason: Cough) alum-mag hydroxide-simeth 200-200-20 mg/5 mL Suspension 30 ml PO Q4H PRN (Reason: Heartburn) Rx Instructions: administer between meals and at bedtime divalproex [Depakote ER] 500 mg tablet extended release 24 hr 500 mg PO BID Discharge Orders: Discharge Order (Routine); Ordered 05/15/22 Ordered By: Fiordaliza Reynolds Diet: Advance to usual diet Activity on Discharge: As tolerated Stand Alone Forms: Patient Portal Discharge page Care Plan Goals: Patient was admitted because of sepsis, acute hypoxemic respiratory failure, pneumonia,Patient also had leukocytosis and lactic acidosis acute: Patient was started on IV antibiotics, blood cultures sent, IV hydration: With above supportive care patient seems to be improved off oxygen, sepsis and leukocytosis as well as lactic acidosis resolved, blood culture negative at 48 hours. Patient will be going to the rehab-with p.o. antibiotics, please complete the course of antibiotics and repeat chest imaging in 3-4 weeks to see resolution of pneumonia. Above management discussed with the patient and his in detail length. In addition patient was saying that he is planning discuss further use of risperidol. Health Concerns: as above . Plan of Treatment: as above. Assessment: as above. Patient Instructions: Pneumonia (DC)
[2022-05-15 13:25] LABS: COVID-19 Test Negative (Negative); IDNOW Serial# 55D5AD1C
== END 2022-05-15 14:00 | disposition skilled nursing facility (03) | DRG 720 ==
LOC: HO.ED 16:16 → HO.EDOVER 22:02 → HO.S3 05-12 00:16
PROVIDERS: Emergency Medicine; Admitting Provider Internal Medicine; Emergency Provider Emergency Medicine; PCP Hospitalist; Visit Provider Internal Medicine
DX: A41.9 Sepsis, unspecified organism (principal); J96.01 Acute respiratory failure with hypoxia; E87.21 Acute metabolic acidosis; I10 Essential (primary) hypertension; G40.909 Epilepsy, unspecified, not intractable, without status epilepticus; G31.84 Mild cognitive impairment of uncertain or unknown etiology; E66.9 Obesity, unspecified; Z68.37 Body mass index [BMI] 37.0-37.9, adult; J18.9 Pneumonia, unspecified organism; F42.9 Obsessive-compulsive disorder, unspecified; Z20.822 Contact with and (suspected) exposure to COVID-19; Z88.2 Allergy status to sulfonamides; Z88.8 Allergy status to other drugs, medicaments and biological substances; Z79.899 Other long term (current) drug therapy
CPT/HCPCS: 36415; 71045; 71275; 80048; 80053; 81001; 82550; 83605; 83880; 84484; 85025; 85379; 85610; 87040; 87086; 87635; 99285; J0456; J0696; J1643; Q9967

== ENCOUNTER 2022-08-29 14:32 | Outpatient (AMB) | payer MEDICAID, SELFPAY ==
--- NOTE | 2022-08-29 15:13 | A.OFFVIS_ITS ---
Intake Intake Visit Reasons: family history of prostate cancer Intake Note: New Patient is present with Sister for Family History of Prostate cancer Antibiotic Allergy: Sulfa, Trimethroprim Blood Thinner: none Allergies aripiprazole [From ABILIFY] Allergy (Severe, Verified 08/29/22 15:15) Involuntary Spasms droperidol [From INAPSINE] Allergy (Severe, Verified 08/29/22 15:15) Involuntary Spasms haloperidol [From HALDOL] Allergy (Severe, Verified 08/29/22 15:15) Involuntary Spasms prochlorperazine [From COMPAZINE] Allergy (Severe, Verified 08/29/22 15:15) Involuntary Spasms promethazine [From PHENERGAN] Allergy (Severe, Verified 08/29/22 15:15) Involuntary Spasms sulfamethoxazole [From BACTRIM] Allergy (Severe, Verified 08/29/22 15:15) Anaphylaxis trimethoprim [From BACTRIM] Allergy (Severe, Verified 08/29/22 15:15) Anaphylaxis HPI HPI Comments History of Present Illness Details Matt is a pleasant male. He is a resident [facility]. He seen for the following urologic conditions - bladder outlet obstruction Bladder outlet obstruction Progressive Not currently taking prostate medications PSA have incomplete bladder emptying Recommend yearly PVR PFS Medical History Bilateral cataracts Cognitive impairment Deformity of left hand Depression Diverticular disease Epilepsy Flexion contractures Generalized anxiety disorder History of GI bleed History of hemodialysis Hx of deep venous thrombosis Hypertension Major depressive disorder Mild cognitive impairment Neuroleptic malignant syndrome OCD (obsessive compulsive disorder) Osteoarthritis Personal history of COVID-19 Rectal prolapse Resides in snf facility Seizure disorder Thrombocytopenia Urinary incontinence Surgical History History of incisional hernia repair (03/15/22) History of repair of rectocele Hx of appendectomy Hx of colonoscopy Family History Sister Breast CA, Onset Age: 51 Ovarian ca, Onset Age: 55 Father Prostate CA, Onset Age: 70 Mother Colorectal cancer, Onset Age: 39 Kidney carcinoma, Onset Age: 67 Maternal Grandmother Colorectal cancer, Onset Age: 70 Maternal Aunt Colorectal cancer Social History Household Members: None Household Members Other:: lives at [facility] Housing: Assisted Living Facility Housing Other:: snf facility-[facility] [phone] Are you a primary progressive care nurse to a significant other at home: No Do you presently have visiting nurse or other home services: No ([facility] Resident) Unable to assess alcohol history related to: Unable to respond Alcohol intake: never Patient Tobacco Use Status: Never used Tobacco Second Hand Smoke Exposure: No Advance Directives Date on File: 11/21/19 service: No Current occupational status: disabled Review of Systems Const Denies chills and Denies fever(s) Card Reports no additional complaints and Denies syncope Resp Denies cough GI Denies abdominal pain and Denies heartburn Reports as per HPI and Denies change in libido Neuro Denies syncope Psych Denies change in libido Endo Denies change in libido Physical Exam Const General: cooperative, healthy appearing, comfortable and no acute distress Orientation/consciousness: patient oriented x3 HEENT Face and sinus: Yes normal facial exam Mouth: moist mucous membranes Neck Neck: Yes normal visual inspection, Yes full ROM and Yes trachea midline Chest Chest palpation & inspection: normal inspection of the chest Resp Effort & Inspection: normal respiratory effort, able to speak in complete sentences and no respiratory distress GI Inspection: Yes normal to inspection Back/Spine/Pelvis Cervical Spine: normal cervical lordosis Thoracic/Lumbar Spine: thoracic and lumbar spine normal to inspection Skin General skin exam: no rashes or lesions noted Neuro General: patient oriented x3, gait normal, tone normal and moves all extremities Extrem General: Yes normal to inspection and Yes capillary refill normal Assessment & Plan Assessment & Plan (1) Bladder outlet obstruction: Code(s): N32.0 - Bladder-neck obstruction Plan Twelve month follow-up PSA Orders: Orders Prostate Specific Antigen 364 Days N32.0 - Bladder-neck obstruction Patient Instructions: Imaging studies, laboratory and physical exam results were discussed and reviewed in detail. No major barriers to patient understanding were identified. An opportunity to ask questions regarding the treatment plan was provided. All questions were answered. The patient expressed understanding and agreement with the above treatment plan. The patient is aware they should contact our office by phone for worsening of their current condition or the appearance of new urologic symptoms. Compliance is encouraged with any medications and followup testing that is ordered. It is a privilege to participate in the urologic care of your patient. If you have any questions or concerns regarding treatment for the above conditions, or other urologic issues, please do not hesitate to contact me. The office telephone contact is [phone]. This note is constructed using voice recognition software. While every effort has been made to ensure accuracy barbering instructor errors may have been included. Yours sincerely, Dr Barrie Robison MD, [facility] - Urology Providers of Expert, Compassionate Care for the Genitourinary System Coding Level of Care Code Est Pt Level 4 (98773) Diagnoses Bladder outlet obstruction N32.0
== END 2022-08-29 16:02 | disposition home or self-care (01) ==
PROVIDERS: Visit Provider Urology
DX: N32.0 Bladder-neck obstruction (principal)
CPT/HCPCS: 99214

== ENCOUNTER → 2022-08-29 14:32 | Outpatient (BNVA) | payer MEDICAID, SELFPAY | PROVIDERS: Visit Provider Urology | DX: N32.0 Bladder-neck obstruction (principal); Z80.42 Family history of malignant neoplasm of prostate | CPT/HCPCS: 99212 ==

== ENCOUNTER 2022-11-29 09:17 | Outpatient (REF) | payer MEDICAID, SELFPAY ==
--- NOTE | ~2022-11-29 | XR_ITS ---
EXAMINATION: XR CHEST 2 VIEWS CLINICAL INFORMATION: Fever and rhonchi. COMPARISON: Chest radiograph dated 04/22/2022. TECHNIQUE: Frontal and lateral views of the chest were obtained. FINDINGS: The heart, great vessels, pulmonary vasculature and mediastinum are normal. The lungs show no focal infiltrate, effusion or pneumothorax. There is no acute osseous abnormality. XR/XR chest 2V IMPRESSION: No active cardiopulmonary disease.
== END 2022-11-29 09:18 | disposition home or self-care (01) ==
LOC: HO.XRAY 09:17
PROVIDERS: PCP Hospitalist; Visit Provider Hospitalist
DX: R50.9 Fever, unspecified (principal)
CPT/HCPCS: 71046

== ENCOUNTER 2023-03-09 14:42 | Inpatient (IN) | payer MEDICAID, SELFPAY ==
[2023-03-09] VITALS (23 sets, daily range): BP systolic 71–138; BP diastolic 33–98; PULSE 62–119; RESP 14–24; TEMP 37.3–39.7; O2SAT 91–97; BMI 34.5; BMI 34.9
--- NOTE | ~2023-03-09 | XR_ITS ---
EXAMINATION: XR CHEST CLINICAL INFORMATION: Hypoxia COMPARISON: Chest 11/29/2022 TECHNIQUE: Frontal view of the chest was obtained. FINDINGS: The lungs are hypoexpanded with platelike atelectasis in both lung bases. The heart size and pulmonary vascularity is normal. There is mild elevated right hemidiaphragm. No gross bony abnormality seen. XR/XR chest 1V IMPRESSION: Hypoinflated lungs with bibasilar atelectasis.
--- NOTE | ~2023-03-09 | CT_ITS ---
EXAMINATION: CT ANGIOGRAM OF THE CHEST WITH AND WITHOUT CONTRAST (CT PULMONARY ANGIOGRAM FOR PE) CLINICAL INFORMATION: Reason for Exam shortness of breath COMPARISON: None available. TECHNIQUE: Prior to contrast administration, noncontrast localization images were obtained. Subsequently, multidetector volumetric imaging was performed from the thoracic inlet to below the diaphragms following the administration of 80 mL Omnipaque 350 intravenous contrast. No contrast reaction reported Sagittal, coronal, and MIP oblique sagittal reformatted images were obtained on the CT workstation, uploaded to PACS, and reviewed. This CT examination was performed using dose optimization techniques as appropriate, variously including the following: *Automated exposure control *Adjustment of mA and/or kV according to patient size (this includes techniques or standardized protocols for targeted exams where dose is matched to indication/reason for exam; i.e. extremities or head) *Use of iterative reconstruction technique Total exam dose-length product 449 mGy-cm FINDINGS: QUALITY OF STUDY/CONTRAST BOLUS: Satisfactory. PULMONARY ARTERIES: No THORACIC AORTA: No aneurysm. LUNG: There is a right lower lobe consolidation/atelectasis. Minimal left basilar atelectasis is noted. Rest of lungs are expanded and clear. PLEURA: No pleural effusion or pneumothorax. MEDIASTINUM: Thyroid lobes are normal and symmetrical. Normal heart size. No pericardial effusion. No hilar or mediastinal lymphadenopathy. No evidence of septal bowing or right heart strain. CORONARY ARTERY CALCIFICATION: Mild coronary artery calcification CHEST WALL/AXILLA: No axillary or internal mammary lymphadenopathy. OSSEOUS STRUCTURES: No aggressive lytic or sclerotic process seen. There is mild ventral spondylosis mid and lower dorsal spine. UPPER ABDOMEN: Visualized liver, spleen, pancreas and bilateral adrenal glands unremarkable. No reflux of contrast into the hepatic veins to suggest elevated right heart pressures. CT/CT angio chest PE protocol IMPRESSION: No evidence of PE. No evidence aortic aneurysm or dissection. Right lower lobe consolidation/atelectasis. There is minimal left basilar atelectasis. VTE: Negative
--- NOTE | ~2023-03-09 | CT_ITS ---
EXAMINATION: CT ABDOMEN AND PELVIS WITH CONTRAST CLINICAL INFORMATION: Fever abdominal pain. COMPARISON: CT abdomen and pelvis 11/20/2021. TECHNIQUE: Multidetector volumetric images were obtained from the superior aspect of the liver through the pubic symphysis following administration 85 mL of Omnipaque 350 intravenous contrast. Sagittal and coronal reformatted images were obtained on the technologist's workstation. Oral contrast: No This CT examination was performed using dose optimization techniques as appropriate, variously including the following: *Automated exposure control *Adjustment of mA and/or kV according to patient size (this includes techniques or standardized protocols for targeted exams where dose is matched to indication/reason for exam; i.e. extremities or head) *Use of iterative reconstruction technique DLP: 1182 mGy-cm FINDINGS: LUNG BASES: There is a patchy airspace disease in right lower lobe and minimal opacity left lung base. Heart size is normal. LIVER, GALLBLADDER, AND BILIARY TREE: The liver is normal in size, shape, and attenuation. No focal hepatic lesion or biliary ductal dilatation is present. The gallbladder is unremarkable with no evidence of radiopaque gallstones, gallbladder wall thickening, or obvious pericholecystic inflammatory changes. PANCREAS: Unremarkable. SPLEEN: Unremarkable. ADRENAL GLANDS: Unremarkable. KIDNEYS AND URETERS: The kidneys are normal in size, shape, and attenuation. No hydronephrosis, hydroureter, or calculi seen. No perinephric stranding. BLADDER: Unremarkable. GASTROINTESTINAL TRACT: There is large amount of stool and gas seen throughout the colon without significant distention. The small bowel loops are normal caliber. Appendix is normal caliber. No obstruction, free air or free fluid seen. No inflammatory process. ABDOMINAL WALL: No significant hernia is appreciated. LYMPH NODES: Normal. VASCULAR: Unremarkable. PELVIC VISCERA: No free air or free fluid. OSSEOUS STRUCTURES: There are mild degenerative disc changes L2-L3 through L5-S1 disc level with mild ventral spondylosis. No aggressive lytic or sclerotic process seen. CT/CT abdomen pelvis w IV con IMPRESSION: 1. No acute intra-abdominal process seen. 2. Moderate to significant constipation without obstruction. 3. There is a patchy airspace disease/infiltrate in right lower lobe and minimal opacity/infiltrate/atelectasis in left lung base. Fleischner guidelines were followed.
--- NOTE | ~2023-03-09 | XR_ITS ---
EXAMINATION: XR CHEST CLINICAL INFORMATION: Line placement COMPARISON: None available. TECHNIQUE: Frontal view of the chest was obtained. FINDINGS: The lungs are well-expanded with right basilar platelike atelectasis. Rest of the lungs are clear. Heart size and pulmonary vascularity is normal. There is a right jugular central line with its tip in mid SVC. No gross bony abnormality seen. XR/XR chest 1V IMPRESSION: 1. Right basilar platelike atelectasis. 2. Right jugular central line tip in mid SVC.
--- NOTE | ~2023-03-09 | XR_ITS ---
EXAMINATION: XR CHEST CLINICAL INFORMATION: Hypoxia COMPARISON: CT chest 03/09/2023. TECHNIQUE: Frontal view of the chest was obtained. FINDINGS: Elevated right hemidiaphragm unchanged. Improved aeration however at the right base. New infiltrates are not seen. Heart and pulmonary vessels normal. Right-sided central line stable in position. Degenerative changes in the right shoulder stable. XR/XR chest 1V IMPRESSION: Improved aeration at the right base.
--- NOTE | 2023-03-09 15:06 | ECG_ITS ---
Test Reason : GENERAL MEDICAL Blood Pressure : / mmHG Vent. Rate : 110 BPM Atrial Rate : 111 BPM P-R Int : 192 ms QRS Dur : 076 ms QT Int : 474 ms P-R-T Axes : 056 -05 023 degrees QTc Int : 641 ms Poor data quality Possible ST abnormality and Prolonged QT Abnormal ECG When compared with ECG of 22-APR-2022 22:36, Poor data quality in current ECG precludes serial comparison Referred By: Caryn Seymour Electronically Signed By:ROSITA FREGOSO MD
--- NOTE | 2023-03-09 15:07 | ED.GENADULT ---
HPI - General Adult General Chief complaint: General Medical Stated complaint: HYPOXIA POSSIBLE GI BLEED Time Seen by Provider: 03/09/23 14:56 Source: patient, EMS, RN notes reviewed and old records reviewed Mode of arrival: EMS History of Present Illness HPI narrative: 58-year-old male with a past medical history of depression, malignant neuroleptic syndrome, anxiety, HTN, thrombocytopenia, mild cognitive impairment, epilepsy, presenting to the ED via EMS from [facility] s/p episode of emesis followed by respiratory distress with hypoxia, O2 noted to be in the mid-70-80s, and febrile to 102.9. Bright red blood per rectum also noted by patient x today. Patient denies chest pain, shortness breath, abdominal pain, diarrhea, dysuria/hematuria. No reported anticoagulation use Related Data Home Medications Medication Instructions Recorded Confirmed diazepam 2 mg tablet 2 mg PO TID 11/17/19 03/09/23 melatonin 1 mg tablet 1 mg PO BEDTIME 11/17/19 03/09/23 acetaminophen 500 mg tablet 500 mg PO Q6H PRN FEVER/MILD PAIN 02/13/20 03/09/23 bisacodyl 10 mg rectal suppository 10 mg [place] Q24H PRN Constipation 02/13/20 03/09/23 cholecalciferol (vitamin D3) 25 50 mcg PO DAILY 02/13/20 03/09/23 mcg (1,000 unit) tablet ibuprofen 800 mg tablet 800 mg PO Q8H PRN FEVER/PAIN 02/13/20 03/09/23 pregabalin 100 mg capsule 100 mg PO TID 02/13/20 03/09/23 sennosides 8.6 mg-docusate sodium 1 tab-cap PO DAILY 02/13/20 03/09/23 50 mg capsule (Senna Plus) sennosides 8.6 mg-docusate sodium 1 tab-cap PO Q24H PRN Constipation 02/13/20 03/09/23 50 mg capsule (Senna Plus) lactulose 10 gram/15 mL (15 mL) 30 ml PO DAILY 03/09/22 03/09/23 oral solution polyethylene glycol 3350 17 17 g PO BID 03/09/22 03/09/23 gram/dose oral powder (Miralax) divalproex 500 mg tablet,extended 500 mg PO BID 04/20/22 03/09/23 release 24 hr (Depakote ER) metoprolol succinate 25 mg 25 mg PO BID 04/23/22 03/09/23 tablet,extended release 24 hr sodium phosphates 19 gram-7 118 ml [place] DAILY PRN Constipation 04/23/22 03/09/23 gram/118 mL enema (Fleet Enema) aluminum-mag hydroxide-simethicone 30 ml PO Q4H PRN Heartburn 05/11/22 03/09/23 200 mg-200 mg-20 mg/5 mL oral susp dextromethorphan-guaifenesin 10 10 ml PO Q4H PRN Cough 05/11/22 03/09/23 mg-100 mg/5 mL oral syrup (Tussin DM) psyllium 1 packet PO BID 05/11/22 03/09/23 guaifenesin 600 mg tablet, 600 mg PO BID 03/09/23 03/09/23 extended release 12 hr Previous Rx's Medication Instructions Recorded abdominal binder #1 ea 03/21/22 Allergies Allergy/AdvReac Type Severity Reaction Status Date / Time aripiprazole [From ABILIFY] Allergy Severe Involuntary Verified 08/29/22 15:15 Spasms droperidol [From INAPSINE] Allergy Severe Involuntary Verified 08/29/22 15:15 Spasms haloperidol [From HALDOL] Allergy Severe Involuntary Verified 08/29/22 15:15 Spasms prochlorperazine Allergy Severe Involuntary Verified 08/29/22 15:15 [From COMPAZINE] Spasms promethazine [From PHENERGAN] Allergy Severe Involuntary Verified 08/29/22 15:15 Spasms sulfamethoxazole Allergy Severe Anaphylaxis Verified 08/29/22 15:15 [From BACTRIM] trimethoprim [From BACTRIM] Allergy Severe Anaphylaxis Verified 08/29/22 15:15 Review of Systems Review of Systems: Constitutional: + Fever, No Chills ENT/Mouth: No Ear Pain, No Nasal Congestion, No sore throat, No Rhinorrhea, No Swallowing Difficulty Cardiovascular: No Chest Pain, No SOB Respiratory: No Cough, No Sputum, No Wheezing Gastrointestinal: +Nausea, + Vomiting, No Diarrhea, No Constipation, No Abdominal pain, +brbpr Genitourinary: No Dysuria, No Hematuria, No Flank Pain Musculoskeletal: No joint pain, No Myalgias, No Joint Swelling Skin: No Skin Lesions, No rash Neuro: No Weakness Yes all other systems are reviewed and are negative Constitutional: Constitutional: Reports as per [facility] Past Medical History Attestation statement: The following information was validated with the patient. Source: old records reviewed Medical History Resides in retirement facility History of GI bleed Seizure disorder Urinary incontinence Osteoarthritis Rectal prolapse Cognitive impairment Hx of deep venous thrombosis Thrombocytopenia Bilateral cataracts Personal history of COVID-19 Diverticular disease Flexion contractures OCD (obsessive compulsive disorder) History of hemodialysis Depression Neuroleptic malignant syndrome Epilepsy Deformity of left hand Generalized anxiety disorder Major depressive disorder Mild cognitive impairment Hypertension Surgical History History of incisional hernia repair (03/15/22) History of repair of rectocele Hx of appendectomy Hx of colonoscopy Family History Family History Sister Breast CA, Onset Age: 51 Ovarian ca, Onset Age: 55 Father Prostate CA, Onset Age: 70 Mother Colorectal cancer, Onset Age: 39 Kidney carcinoma, Onset Age: 67 Maternal Grandmother Colorectal cancer, Onset Age: 70 Maternal Aunt Colorectal cancer Social History Social History Household Members: None Household Members Other:: lives at [facility] Housing: Assisted Living Facility Housing Other:: retirement [facility]-[phone] Are you a primary rn patient care to a significant other at home: No Do you presently have visiting nurse or other home services: No ([facility] Resident) Unable to assess alcohol history related to: Unable to respond Alcohol intake: never Comment: [facility] [place] Tobacco Use Status: Never used Tobacco Smoked in Last 30 Days: No Second Hand Smoke Exposure: No Use of substances other than those prescribed or required for medical reasons: No Advance Directives: Yes Advance Directives on File: Yes Advance Directives Date on File: 11/21/19 service: No Current occupational status: disabled Physical Exam ED Vital Signs: Vital Signs - 24 hr 03/09/23 14:50 03/09/23 15:47 03/09/23 16:25 Temperature 103.5 F H Pulse Rate 119 H 101 H 97 Respiratory Rate 18 22 H Blood Pressure 109/70 100/56 L 81/40 L Pulse Oximetry 91 L 96 93 Oxygen Delivery Method Nasal Cannula Nasal Cannula Nasal Cannula Oxygen Flow Rate 4 03/09/23 16:38 03/09/23 16:54 03/09/23 17:54 Temperature 101.4 F H Pulse Rate 90 83 Respiratory Rate 24 H 18 Blood Pressure 84/40 L 86/40 L Pulse Oximetry 97 93 Oxygen Delivery Method Nasal Cannula Nasal Cannula Oxygen Flow Rate 4 03/09/23 18:57 03/09/23 19:15 03/09/23 19:25 Temperature 99.5 F Pulse Rate 78 89 Respiratory Rate 20 24 H 20 Blood Pressure 93/44 L 86/48 L Pulse Oximetry 97 93 Oxygen Delivery Method Nasal Cannula Nasal Cannula Oxygen Flow Rate 3 3 03/09/23 19:37 03/09/23 19:48 03/09/23 20:00 Temperature Pulse Rate 63 Respiratory Rate 23 H Blood Pressure 98/58 L 78/42 L 82/40 L Pulse Oximetry 94 Oxygen Delivery Method Nasal Cannula Oxygen Flow Rate 3 03/09/23 20:48 03/09/23 21:04 Temperature 99.1 F Pulse Rate 69 Respiratory Rate 20 Blood Pressure 92/35 L 79/45 L Pulse Oximetry 97 Oxygen Delivery Method Nasal Cannula Oxygen Flow Rate 4 BMI result Body Mass Index 34.9 Const General: cooperative, healthy appearing and no acute distress Orientation/consciousness: patient oriented x3 Limitations: no limitations HENMT Head: Yes normal to inspection and Yes atraumatic Ears: hearing grossly normal bilaterally General nose exam: Normal external nose present Face and sinus: Yes normal facial exam Eyes General: appearance normal, both eyes and all related structures EOM: EOMs intact bilaterally Neck Neck: Yes normal visual inspection and Yes no meningeal signs Resp Effort & Inspection: no respiratory distress and tachypneic Auscultation: clear to auscultation bilaterally Cardio Rate: regular rate and tachycardic Heart sounds: S1 normal heart sound present and S2 normal heart sound present GI Inspection: Yes normal to inspection Palpation (GI): Soft to palpation, nontender, no guarding and not rigid Skin Rashes: no rashes Wounds: no wounds Neuro General: patient oriented x3, tone normal, moves all extremities and no meningeal signs Cranial nerves: Yes CN's II-XII intact bilaterally Extrem General: Yes normal to inspection and Yes edema Course Course Course Narrative: -no leukocytosis. Lactic acid WNL. Initial troponin 6.1 > will obtain 3 hour repeat. Labs otherwise reassuring. -ABG compensated > no BiPAP indicated at this time -occult stool negative -1630--ED care transferred to RADHA Stoner pending viral testing, UA, CXR, CT abdomen/pelvis and anticipated admission Reevaluation(s) Reevaluation #1: Patient re-evaluated, he was noted to be hypotensive and therefore met criteria for severe sepsis due to episodes of hypotension with a systolic pressure below 90. He was given 30 per kilos of IV fluids. On re-evaluation his mental status has not changed. Will continue to follow closely. Time: 17:47 Reevaluation #2: Patient's blood pressures have been low for a couple of hours now. He has received 30 per kilos of IV fluids as well as albumin in his most recent blood pressure was 80/42. Will start peripheral pressors. I discussed with the patient about starting a central line and admission to the ICU. He asked that I speak with his sister Elizabeth who was a nurse prior to consenting. I called gynecology teacher as number provided and spoke to her. She reports that she will be here in about 30 minutes but gives verbal consent for the procedure. Time: 20:10 Reevaluation #3: Patient evaluated by ICU team, I have week as who will admit the patient for severe sepsis. He recommends CT angiography, Time: 22:08 Medications Administered Discontinued Medications Generic Name Dose Route Start Last Admin Trade Name Freq PRN Reason Stop Dose Admin Acetaminophen 650 mg 03/09/23 15:08 03/09/23 15:31 Acetaminophen Supp 650 Mg Supp.Rect [place] 03/09/23 15:09 650 mg ONCE ONE Administration Piperacillin Sod/Tazobactam 50 mls @ 100 mls/hr 03/09/23 15:05 03/09/23 16:25 Sod 3.375 gm/ Sodium Chloride IV 03/09/23 15:34 Infused ONCE ONE Infusion Sodium Chloride 500 mls @ 999 mls/hr 03/09/23 15:15 03/09/23 16:25 Ns IV 03/09/23 15:45 Infused .Q31M MAIA Infusion Sodium Chloride 2,493.7 mls @ 2,993.7 mls/hr 03/09/23 16:35 03/09/23 19:23 Ns IV 03/09/23 17:24 Infused .Q50M STA Infusion Albumin Human 50 mls @ 100 mls/hr 03/09/23 16:45 03/09/23 19:25 Kedbumin 25 % IV 03/09/23 18:44 Infused Q30M MAIA Infusion Iohexol 100 ml 03/09/23 16:00 03/09/23 16:01 Iohexol 350 Mg/Ml 100 Ml Infus..Btl IV 03/09/23 16:01 85 ml ONCE ONE Administration Medical Decision Making Medical Decision Making MDM Narrative: 58-year-old male with a past medical history of depression, malignant neuroleptic syndrome, anxiety, HTN, thrombocytopenia, mild cognitive impairment, epilepsy, presenting to the ED via EMS from [facility] s/p episode of emesis followed by respiratory distress with hypoxia, O2 noted to be in the mid-70-80s, and febrile to 102.9. Bright red blood per rectum also noted by patient x today. On exam febrile 103.5, tachycardic, tachypneic, satting 90% on 4L NC, lungs CTA, abdomen soft/nontender, no melena appreciated on rectal. Bilateral LE edema noted. Sepsis protocol initiated. Concern for aspiration/pneumonia vs viral syndrome vs GI bleed vs anemia vs CHF. Low suspicion for dissection, PE, DVT, appendicitis/diverticulitis Plan: EKG, labs, UA, viral testing, CXR, CT AP, IVF, rectal Tylenol, empiric antibiotics. Please refer to course for remaining clinical decision making, interpretation of labs/imaging results, and discussions with consultants and/or family members. Differential Diagnosis Differential Diagnoses: The differential diagnosis associated with the presentation includes As above Admission/Observation Consideration of admission/observation: Escalation of care including admission/observation considered Consult Healthcare Provider Management of the patient was discussed with: Hospitalist Lab Data [facility] Lab Attestation statement: I reviewed the patient's lab results. 03/09/23 15:14 03/09/23 15:14 Labs: Lab Results 03/09/23 03/09/23 03/09/23 Range/Units 15:09 15:14 15:15 WBC 5.8 (4.8-10.8) X10*3/uL RBC 4.90 (4.60-5.80) X10*6/uL Hgb 14.9 (14.0-18.0) g/dl Hct 45.4 (42.0-52.0) % MCV 92.7 (80.0-98.0) fL MCH 30.4 (27.0-33.0) pg MCHC 32.8 (31.0-36.0) g/dl RDW 13.5 (11.0-16.0) % Plt Count 89 L D (160-400) X10*3/uL MPV 11.8 (9.4-12.4) fL Immature Gran % (Auto) 0.3 (0.0-0.4) % Neut % (Auto) 79.5 H (45-73) % Lymph % (Auto) 9.4 L (20-40) % Dickens % (Auto) 10.3 (2-11) % Eos % (Auto) 0.3 (0-4) % Baso % (Auto) 0.2 (0-2) % Lymph # (Auto) 0.5 L (1.2-4.9) X10*3/uL Dickens # (Auto) 0.6 (0.1-1.2) X10*3/uL Eos # (Auto) 0.0 (0.0-0.4) X10*3/uL Baso # (Auto) 0.0 (0.0-0.2) X10*3/uL Abs Immat Gran (auto) 0.02 (0.00-0.03) X10*3/uL Absolute Neuts (auto) 4.6 (2.0-8.3) x10*3/uL Absolute Nucleated RBC 0.000 (0.0-0.012) X10*3/uL Nucleated RBC % (auto) 0.0 (0.0-0.2) /100WBC PT 12.9 (11.1-13.3) SEC INR 1.1 (0.9-1.1) O2 Saturation 92.0 % ABG pH at Pt Temp 7.42 (7.35-7.45) ABG pCO2 at Pt Temp 50 H (32-45) mmHg ABG pO2 at Pt Temp 65 L (83-108) mmHg ABG HCO3 33 H (22-26) mmol/L ABG Base Excess (Actual) 7.7 mmol/L Sodium 143 (135-145) mmol/L Potassium 3.7 (3.3-5.1) mmol/L Chloride 105 (96-108) mmol/L Carbon Dioxide 28 (22-29) mmol/L Anion Gap 14 (12-20) BUN 22 H (9-16) mg/dL Creatinine 0.96 (0.5-1.4) mg/dL Estim Creat Clear Calc 94.4 Estimated GFR > 60 Random Glucose 110 (60-115) mg/dL Lactic Acid 1.4 (0.5-2.0) mmol/L Calcium 8.9 D (8.4-10.2) mg/dL Magnesium 2.0 (1.6-2.6) mg/dL Total Bilirubin 0.6 (0.0-1.0) mg/dL Direct Bilirubin 0.2 (0.0-0.5) mg/dL AST 14 (5-37) U/L ALT 8 (0-40) U/L Alkaline Phosphatase 40 (39-117) U/L Troponin I High Sens 6.1 D (<3.5-35.0) ng/L B-Natriuretic Peptide 23 (<100) pg/mL Total Protein 7.1 (6.5-8.0) g/dL Albumin 3.8 (3.5-5.0) g/dL Lipase 7 L (8-78) U/L Urine Color Urine Appearance Urine pH (5.0-9.0) Ur Specific [place] (1.005-1.025) Urine Protein (Neg-Trace) mg/dL Urine Glucose (UA) (Negative) mg/dL Urine Ketones (Negative) mg/dL Urine Blood (Negative) Urine Nitrite (Negative) Ur Leukocyte Esterase (Negative) Stool Occult Blood (NEGATIVE) COVID-19 (DIEGO) (Negative) COVID-19 Clin Com Influenza Type A (LENCHO) (Negative) Influenza Type B (LENCHO) (Negative) Influenza A & B Note 03/09/23 03/09/23 03/09/23 Range/Units 15:38 18:45 21:05 WBC (4.8-10.8) X10*3/uL RBC (4.60-5.80) X10*6/uL Hgb (14.0-18.0) g/dl Hct (42.0-52.0) % MCV (80.0-98.0) fL MCH (27.0-33.0) pg MCHC (31.0-36.0) g/dl RDW (11.0-16.0) % Plt Count (160-400) X10*3/uL MPV (9.4-12.4) fL Immature Gran % (Auto) (0.0-0.4) % Neut % (Auto) (45-73) % Lymph % (Auto) (20-40) % Dickens % (Auto) (2-11) % Eos % (Auto) (0-4) % Baso % (Auto) (0-2) % Lymph # (Auto) (1.2-4.9) X10*3/uL Dickens # (Auto) (0.1-1.2) X10*3/uL Eos # (Auto) (0.0-0.4) X10*3/uL Baso # (Auto) (0.0-0.2) X10*3/uL Abs Immat Gran (auto) (0.00-0.03) X10*3/uL Absolute Neuts (auto) (2.0-8.3) x10*3/uL Absolute Nucleated RBC (0.0-0.012) X10*3/uL Nucleated RBC % (auto) (0.0-0.2) /100WBC PT (11.1-13.3) SEC INR (0.9-1.1) O2 Saturation % ABG pH at Pt Temp (7.35-7.45) ABG pCO2 at Pt Temp (32-45) mmHg ABG pO2 at Pt Temp (83-108) mmHg ABG HCO3 (22-26) mmol/L ABG Base Excess (Actual) mmol/L Sodium (135-145) mmol/L Potassium (3.3-5.1) mmol/L Chloride (96-108) mmol/L Carbon Dioxide (22-29) mmol/L Anion Gap (12-20) BUN (9-16) mg/dL Creatinine (0.5-1.4) mg/dL Estim Creat Clear Calc Estimated GFR Random Glucose (60-115) mg/dL Lactic Acid (0.5-2.0) mmol/L Calcium (8.4-10.2) mg/dL Magnesium (1.6-2.6) mg/dL Total Bilirubin (0.0-1.0) mg/dL Direct Bilirubin (0.0-0.5) mg/dL AST (5-37) U/L ALT (0-40) U/L Alkaline Phosphatase (39-117) U/L Troponin I High Sens 14.6 D (<3.5-35.0) ng/L B-Natriuretic Peptide (<100) pg/mL Total Protein (6.5-8.0) g/dL Albumin (3.5-5.0) g/dL Lipase (8-78) U/L Urine Color Yellow Urine Appearance Clear Urine pH 5.5 (5.0-9.0) Ur Specific [place] >= 1.030 H (1.005-1.025) Urine Protein Negative (Neg-Trace) mg/dL Urine Glucose (UA) Negative (Negative) mg/dL Urine Ketones 15 (Negative) mg/dL Urine Blood Negative (Negative) Urine Nitrite Negative (Negative) Ur Leukocyte Esterase Negative (Negative) Stool Occult Blood NEGATIVE (NEGATIVE) COVID-19 (DIEGO) Negative (Negative) COVID-19 Clin Com See Note Influenza Type A (LENCHO) Negative (Negative) Influenza Type B (LENCHO) Negative (Negative) Influenza A & B Note See Note Independent Interpretation I performed an independent interpretation of an: EKG, Plain X-Ray and CT Scan Radiology Impression Discussion of test interpretation with radiology: I have reviewed the radiologist's reading. Independent Historian Clinical information obtained from an independent historian. History obtained from or confirmed by: EMS External Record Review External record reviewed: Inpatient record, Office record, Outpatient record, Prior outpatient labs, Prior outpatient radiology, Primary care record and Outside ED record Tests considered The following testing was considered but not selected: As above Prescription Management I considered prescription management with: Pain Medication and Antibiotic Chronic Conditions Patient?s care impacted by: Hypertension and Other Critical Care Time Critical Care Time Critical Care Time: Yes Total Critical Care Time: 45 Attestation: I have personally provided critical care time exclusive of time spent on separately billable procedures. Time includes review of lab data, radiology results, discussion with consultants, and monitoring for potential decompensation. Intervention performed as documented. Discharge Plan Discharge Clinical Impression: Fever, Hypoxia, Severe sepsis Patient Disposition: Admitted As Inpatient Prescriptions: No Action (DME) abdominal binder 2xl See Rx Instructions .Route .MEDSUPPLY Qty: 1 0RF Rx Instructions: Pt to wear binder during daytime hours - may remove for shower diazepam 2 mg Tablet 2 mg PO TID melatonin 1 mg Tablet 1 mg PO BEDTIME ibuprofen 800 mg Tablet 800 mg PO Q8H PRN (Reason: FEVER/PAIN) acetaminophen 500 mg Tablet 500 mg PO Q6H PRN (Reason: FEVER/MILD PAIN) bisacodyl 10 mg Suppository 10 mg [place] Q24H PRN (Reason: Constipation) pregabalin 100 mg Capsule 100 mg PO TID Rx Instructions: GIVE WITH 300 MG CAPSULE TO EQUAL 400 MG BID Senna Plus 8.6-50 mg Capsule 1 tab-cap PO Q24H PRN (Reason: Constipation) Senna Plus 8.6-50 mg Capsule 1 tab-cap PO DAILY cholecalciferol (vitamin D3) 25 mcg (1,000 unit) Tablet 50 mcg PO DAILY Fleet Enema 19-7 gram/118 mL Enema 118 ml [place] DAILY PRN (Reason: Constipation) Rx Instructions: use only if bisacodyl suppository is ineffective metoprolol succinate 25 mg Tablet Extended Release 24 Hr 25 mg PO BID Rx Instructions: take with or after meals lactulose 10 gram/15 mL (15 mL) Solution 30 ml PO DAILY polyethylene glycol 3350 [Miralax] 17 gram/dose powder 17 g PO BID Rx Instructions: dilute in 6-8 ounces of fluid psyllium Packet 1 packet PO BID Rx Instructions: mix into at least 8 oz of water or juice before administering dextromethorphan-guaifenesin [Tussin DM] 10-100 mg/5 mL Syrup 10 ml PO Q4H PRN (Reason: Cough) alum-mag hydroxide-simeth 200-200-20 mg/5 mL Suspension 30 ml PO Q4H PRN (Reason: Heartburn) Rx Instructions: administer between meals and at bedtime guaifenesin 600 mg Tablet Extended Release 12hr 600 mg PO BID divalproex [Depakote ER] 500 mg tablet extended release 24 hr 500 mg PO BID
[2023-03-09 15:16] LABS: ABG Base Excess 7.7 mmol/L; ABG HCO3 33 mmol/L (22-26); ABG pCO2 50 mmHg (32-45); ABG pH 7.42 (7.35-7.45); ABG pO2 65 mmHg (83-108)
[2023-03-09 15:21] LABS: MANUAL DIFF FLAG NO
[2023-03-09 15:24] LABS: Basophils Percent Auto 0.2 % (0-2); Eosinophils Percent Auto 0.3 % (0-4); Hematocrit 45.4 % (42.0-52.0); Hemoglobin 14.9 g/dl (14.0-18.0); Imm Gran Abs Auto 0.02 X10*3/uL (0.00-0.03); Imm Gran Pct Auto 0.3 % (0.0-0.4); Lymphocytes Absolute Auto 0.5 X10*3/uL (1.2-4.9); Lymphocytes Percent Auto 9.4 % (20-40); Mean Corpuscular HGB Conc 32.8 g/dl (31.0-36.0); Mean Corpuscular Hemoglobin 30.4 pg (27.0-33.0); Mean Corpuscular Volume 92.7 fL (80.0-98.0); Mean Platelet Volume 11.8 fL (9.4-12.4); Monocytes Absolute Auto 0.6 X10*3/uL (0.1-1.2); Monocytes Percent Auto 10.3 % (2-11); Neutrophils Absolute Auto 4.6 x10*3/uL (2.0-8.3); Neutrophils Percent Auto 79.5 % (45-73); Red Cell Distribution Width 13.5 % (11.0-16.0); White Blood Count 5.8 X10*3/uL (4.8-10.8)
[2023-03-09 15:25] LABS: Platelet Count 89 X10*3/uL (160-400)
[2023-03-09 15:28] LABS: INTERNATIONAL NORM RATIO 1.1 (0.9-1.1); Prothrombin Time 12.9 SEC (11.1-13.3)
[2023-03-09] MEDS: 0.9 % Sodium Chloride 500 ML 999 ML IV (15:30)
[2023-03-09] MEDS: Acetaminophen Supp 650 MG SUPP.RECT PR (15:31)
[2023-03-09 15:32] LABS: Lactic Acid 1.4 mmol/L (0.5-2.0)
[2023-03-09] MEDS: Piperacillin Sodium/Tazobactam 3.375 GM in 0.9 % Sodium Chloride 50 ML IV (15:38)
--- NOTE | 2023-03-09 15:39 | PC.NURSE ---
ABX late by 3 minutes due to difficulty obtaining second set of blood cultures
[2023-03-09 15:42] LABS: B Type Natriuretic Peptide 23 pg/mL (<100)
[2023-03-09 15:44] LABS: Troponin-I High Sensitivity 6.1 ng/L (<3.5-35.0)
[2023-03-09 15:48] LABS: Alanine Aminotransferase 8 U/L (0-40); Albumin Level 3.8 g/dL (3.5-5.0); Alkaline Phosphatase 40 U/L (39-117); Anion Gap 14 (12-20); Aspartate Amino Transferase 14 U/L (5-37); Bilirubin Direct 0.2 mg/dL (0.0-0.5); Bilirubin Total 0.6 mg/dL (0.0-1.0); Blood Urea Nitrogen 22 mg/dL (9-16); Calcium 8.9 mg/dL (8.4-10.2); Carbon Dioxide 28 mmol/L (22-29); Chloride 105 mmol/L (96-108); Creatinine Clr Calc Pharmacy 94.4; Estimated Glomerular Filt Rate > 60; Glucose Random 110 mg/dL (60-115); Lipase 7 U/L (8-78); Potassium 3.7 mmol/L (3.3-5.1); Sodium 143 mmol/L (135-145); Total Protein 7.1 g/dL (6.5-8.0)
[2023-03-09 15:51] LABS: OBS Int Ctl Valid YES; OBS1 NEGATIVE (NEGATIVE)
--- NOTE | 2023-03-09 15:52 | PC.NURSE ---
pt [facility] where [facility] was reportedly found at 78% on RA.. EMS applied non-rebreather at 15L for Spo2 in the low 90s. IN ED, pt switched to NC 4L and saturation is maintaining in the low 90s. pt febrile, rectal 103, tachy 112. PA notified of pts condition. labs and EKG done, pt very tremulous and difficulty obtaining clear EKG. IV inserted, second set of blood cultures was a difficult draw. Tylenol MD given, fluids given, ABX infusing
[2023-03-09] MEDS: iohexoL 350 MG/ML 100 ML INFUS..BTL IV (16:01)
[2023-03-09 16:08] LABS: IDNOW Serial# 9DB6401D; Influenza A Negative (Negative); Influenza B2 Negative (Negative)
[2023-03-09 16:20] LABS: COVID-19 Test Negative (Negative); IDNOW Serial# 58CA691E
--- NOTE | 2023-03-09 16:36 | HE.PHANOTE ---
Provider originally order 500 ml bolus of NS. Then wanted a total dose of fluid to be 30 ml/kg = 2993.7 ml. Patient already received 500 ml, NS sepsis order 30ml/kg was adjust to 2493.7 for the total amount of fluids to be 2993.7 mL.
--- NOTE | 2023-03-09 16:43 | PHA.MEDREC ---
Pharmacy Consult ? Medication Reconciliation Pharmacy has completed the medication reconciliation.Confirmed medications through list brought in by facility ([facility])
[2023-03-09] MEDS: Albumin Human 25 % 50 ML 100 ML IV ×5 (16:51→22:29)
[2023-03-09 19:11] LABS: Troponin-I High Sensitivity 14.6 ng/L (<3.5-35.0)
--- NOTE | 2023-03-09 19:29 | PC.NURSE ---
assumed care of pt at 1900 - per previous RN [place], sepsis sheet complete aside from second documented BP post fluids. pt resting comfortably on stretcher, BPs remain 80s/40s. RADHA Stoner aware.
--- NOTE | 2023-03-09 20:18 | PC.NURSE ---
Pt sister called for consent for PA to place central line in order to administer levofed. Pt sister gave consent, will be here in 20 mins. Procedure to be done when pt sister arrives. PT A&O baseline, alert, speaking clear full sentences, pt understands what is going on, asks please wait for my sister to come pt moved into ED room 4, on dietetics teacher, plan of care ongoing
[2023-03-09 21:14] LABS: Appearance Urine Clear; Color Urine Yellow; Glucose Urine UA Negative (Negative); Leukocyte Esterase Urine Negative (Negative); Nitrite Urine Negative (Negative); PH 5.5 (5.0-9.0); Specific Gravity - Urine >= 1.030 (1.005-1.025); Urine Blood Negative (Negative); Urine Ketones 15 mg/dL (Negative); Urine Protein Negative (Neg-Trace)
--- NOTE | 2023-03-09 21:39 | PC.NURSE ---
RADHA Sparks in room placing central line.
--- NOTE | 2023-03-09 22:23 | PC.NURSE ---
[facility] ICU PA in room assessing pt. Per PA hold off on levofed for now as MAP >65. Administer albumin as ordered. Pt go to to ICU pending nurse to nurse report.
--- NOTE | 2023-03-09 22:27 | W.PM.CCHP ---
Procedures Date of Service Date of Service: 03/09/23 Central Line Placement Right IJ: Consent for Procedure: Elective - informed consent obtained Time out performed: Yes Sterile Technique Used: Yes Patient placed on monitor/pulse ox: Yes MD prep: mask, gown and gloves Central line prep: Chlorhexidine scrub Local anesthesia used: lidocaine 1% Amount of anesthesia used (ml): 5 Ultrasound used for placement: Yes Central line lumen inserted: triple Post procedure: sutured in place, good blood return, all ports aspirated, flushed, capped and sterile dressing applied Post procedure x-ray: tip of catheter in good position and no pneumothorax seen Patient tolerated procedure: well Complications: none
[2023-03-09] MEDS: iohexoL 350 MG/ML 100 ML INFUS..BTL 65 ML IV (22:34)
[2023-03-09] MEDS: Norepinephrine Bitartrate/D5W 8 MG/250 ML PLAST..BAG 3.8 MG IV (22:58)
[2023-03-09 23:14] LABS: MANUAL DIFF FLAG NO
[2023-03-09 23:18] LABS: Basophils Percent Auto 0.3 % (0-2); Eosinophils Percent Auto 0.1 % (0-4); Hemoglobin 11.5 g/dl (14.0-18.0); Imm Gran Abs Auto 0.02 X10*3/uL (0.00-0.03); Imm Gran Pct Auto 0.3 % (0.0-0.4); Lymphocytes Percent Auto 14.5 % (20-40); Mean Corpuscular HGB Conc 32.9 g/dl (31.0-36.0); Mean Corpuscular Hemoglobin 30.7 pg (27.0-33.0); Mean Corpuscular Volume 93.3 fL (80.0-98.0); Mean Platelet Volume 11.7 fL (9.4-12.4); Monocytes Absolute Auto 0.6 X10*3/uL (0.1-1.2); Monocytes Percent Auto 8.6 % (2-11); Neutrophils Absolute Auto 5.4 x10*3/uL (2.0-8.3); Neutrophils Percent Auto 76.2 % (45-73); Red Blood Count 3.75 X10*6/uL (4.60-5.80); Red Cell Distribution Width 13.7 % (11.0-16.0); White Blood Count 7.1 X10*3/uL (4.8-10.8)
[2023-03-09 23:20] LABS: Platelet Count 78 X10*3/uL (160-400)
[2023-03-09 23:26] LABS: Lactic Acid 0.7 mmol/L (0.5-2.0)
--- NOTE | 2023-03-09 23:34 | PM.CCHP ---
History of Present Illness Date of Service: 03/09/23 Attending physician on admission: Caryn Seymour Chief Complaint: SEPTIC SHOCK, CAP BILATRAL LUNGS HPI: ?The majority of the history was obtained from the patient's sister who is at bedside.? Patient has some level of cognitive delay.?50 year old who has an underlying history of neuroleptic malignant syndrome due to Abilify, who has chronic upper extremity contracture and lower extremity weakness for which he ambulates with the use of a walker, chronic constipation and [id number] neurogenic bladder, status post appendectomy and abdominal surgical revision surgery, anxiety, depression, PTSD, hypertension. Patient presented to the emergency room with complaints of 1 episode of emesis and history of thrombocytopenia with long term facility concerns for recurrent GI bleed; in addition they reported that he had respiratory distress and hypoxia with an O2 sat in the 70s to 80s, febrile of 102.9.? They also had reported bright red blood per rectum x1 at the long-term.? Patient is not known to be on anticoagulation therapy. ?Initially in the emergency room the patient was noted to be normotensive however he was tachycardic at 01:19 and febrile at 01:03 0.5 F requiring 4 L nasal cannula oxygen supplementation with normally does not use oxygen, subsequently a couple hours later the patient became hypotensive.? He did not show a white count or lactic acidosis.? There was no evidence of bleeding for his H&H was at his baseline and he had a negative stool guaiac study.? His chest x-ray did show possible infiltrates and/or atelectasis and they question whether or not the patient might have aspirated during his vomiting episode, the patient was started on IV fluids per sepsis protocol, was given Zosyn and albumin.? Although initially the patient seemed to have improved, his blood pressure continued to deteriorate and we were called for admission. Upon evaluating the patient in the emergency room, it was clear that the patient's blood pressure was very labile but low, he did appear well and both the patient's well as his sister stated that he looks much better however 80s concerning that he was requiring oxygen.? My initial evaluation did reveal adventitious lung sounds, given the lack of lactic acidosis and or white count, will rule out other causes of hypoxia therefore a CT angiogram to rule out PE was requested prior transferred to the ICU, a central line will be placed in the ER and we will start him on Levophed. ROS:? As above Unable to obtain from patient Past Medical History:? 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 As above Family history:? Mother had colorectal and kidney carcinoma, his father had prostate cancer, his sister had ovarian cancer and breast cancer, patient is grandmother and maternal aunt had colon cancer. Social History:? Lives at SNF for the past 4 years.? There is no history of alcohol, tobacco or drug use ever.? He does use a walker to ambulate.? CODE STATUS: FULL CODE Allergies: ?Bactrim (anaphylactic reaction), Abilify, droperidol, Haldol, prochlorperazine, Phenergan (they all trigger NMS) Home Medications: See [facility] Rec Sepsis PHYSICAL EXAM done at 10 30 p.m: VS: ?79/45, 70, 20, 97% on 4 L nasal cannula, 99.5 General:? Alert oriented x3 no acute distress.? Speaking full sentences.? Speech is well articulated, thought process is coherent.? Following all commands. Skin:? Intact, no lesions, edema, erythema, clubbing or cyanosis.? No ulcers. HEENT:? Head is normocephalic, atraumatic, pupils equal round reactive to light accommodation bilaterally.? Extraocular movements appear intact.? Buccal mucosa is moist, Neck is supple without lymphadenopathy. Cardiac:? Clear S1-S2, no murmurs rubs or gallops. Pulmonary:? Diminished lung sounds bilaterally with fine distinguishable rhonchi at the right base more than left, no crackles or wheezes. Abdomen:? Protuberant, positive bowel sounds in all 4 quadrants.? Soft, nontender, no rebound or guarding.? Musculoskeletal:? There is some digital contracture of the fingers on the left upper extremity, good flexion extension of all major joints at the upper and lower extremities upon request although with some difficulty.? There is no leg edema, no asymmetry. Neurologic:? As above, cranial nerves 2-12 are grossly intact.? No focal deficits noted. Vascular:? 2+ pulses upper and lower extremities distally. ?Less than 2nd capillary refill of the finger and toes bilaterally.? SIGNIFICANT LABORATORY DATA:? As above; influenza and COVID negative, guaiac negative. Urinalysis negative. CT angiogram of the chest reveals no PE, confirms right lower lobe pneumonia more than left. Chest x-ray post right IJ placement reveals good position of the central venous catheter without pneumothorax. REVIEW OF IMAGES: ?As above EKG REVIEW: To be obtained ASSESSMENT : 1. Acute septic shock 2. Bilateral Nosocomial vs Aspiration pneumonia of both lungs 3. Acute hypoxic respiratory failure 4. Chronic thrombocytopenia ? related to Depakote 5. Metabolic Anion gap acidosis without lactic acidosis 6. Bradycardia and QT prolongation ? related to long acting Metoprolol tox, Diazepam; there is no hypomagnesemia, no hypokalemia, will rule out thyroid disease 7. Pseudo hypocalcemia with corrected calcium of 9.6 8. Hypoalbuminemia PLAN OF CARE: Patient will be admitted to the ICU, will start him on pressors for which I will place a central line, monitor vital signs, I and O's, so far his received adequate IV fluid resuscitation per sepsis protocol, I will broaden his antibiotics by increasing dose of Zosyn and adding vancomycin, blood cultures pending, will obtain sputum culture and Gram stain, aspiration precautions, head of the bed and swallow eval. Will check phosphorus level, TSH and do a trial of glucagon to see if the intermittent bradycardia will improve although this could also be related to diazepam side effect which also can decreased blood pressure.? Continue now with albumin replacement. ?His magnesium is borderline low, will give him 2 g of magnesium sulfate to prevent torsade de pointe. Will obtain an EKG and correlate with the rhythm strips. If the patient's bradycardia becomes more constant or permanent may need dopamine and a Cardiology consult.? GI PROPHYLAXIS: ?IV Pepcid DVT PROPHYLAXIS: ?Pneumatic stockings while in bed only due to thrombocytopenia. 0250 am CLINICAL UPDATE: Patient continues to have tachy-luc episodes with heart rate in the high 90s although it was in the 120s before, as low as 42 beats per minute in a nonsustained but very recurrent manner. He remains hypotensive, I will switch Levophed to dopamine at this point and will request a cardiac consult. EKG to my view shows sinus tachycardia 104 beats per minute with premature atrial contractions. There is no discernible ST elevations , there is ST depressions in the lateral and inferior leads which are also present on prior EKG from 2022. QTC is 510 MS. Follow-up sepsis exam done at 04:40am 03/10/2023 120/60, 80, 18, 90% on 3 L nasal cannula Alert and oriented x3 no acute distress. Skin no changes. Regular rate and rhythm, no murmurs, rubs, gallops. Diminished lung sounds bilaterally with remaining rhonchi at the bases. Abdomen soft and nontender. Neurologically intact without focal deficits. 2+ pulses bilaterally upper and lower extremities with less than 2nd capillary refill of the finger and toes bilaterally.? No edema. Patient remains stable will follow with the above-mentioned management. Since dopamine was started, the patient has had increasing his heart rate as well as his blood pressure without further bradycardia or hypotensive episodes. Critical care time used for critical evaluation of this patient, diagnosis, treatment and coordination of care, review her records and documentation TOTAL CRITICAL CARE TIME?120?MIN . discussion and coordination with consultants, completely separate from any procedures performed. Patient's care was discussed in detail with Dr. Seymour is aware of all the above as well as the plan of care for this patient. [facility] Past Medical History Medical History Constipation Resides in long term facility History of GI bleed Seizure disorder Urinary incontinence Osteoarthritis Rectal prolapse Cognitive impairment Hx of deep venous thrombosis Thrombocytopenia Bilateral cataracts Personal history of COVID-19 Diverticular disease Flexion contractures OCD (obsessive compulsive disorder) History of hemodialysis Depression Neuroleptic malignant syndrome Epilepsy Deformity of left hand Generalized anxiety disorder Major depressive disorder Mild cognitive impairment Hypertension Family History Family History Sister Breast CA, Onset Age: 51 Ovarian ca, Onset Age: 55 Father Prostate CA, Onset Age: 70 Mother Colorectal cancer, Onset Age: 39 Kidney carcinoma, Onset Age: 67 Maternal Grandmother Colorectal cancer, Onset Age: 70 Maternal Aunt Colorectal cancer Surgical History Surgical History History of incisional hernia repair (03/15/22) History of repair of rectocele Hx of appendectomy Hx of colonoscopy Social History Social History Household Members: None Household Members Other:: lives at [facility] Housing: Assisted Living Facility Housing Other:: long term facility-[facility] [phone] Are you a primary pharmacy care coordinator to a significant other at home: No Do you presently have visiting nurse or other home services: No ([facility]) Unable to assess alcohol history related to: Unable to respond Alcohol intake: never Comment: [facility] Tobacco Use Status: Never used Tobacco Smoked in Last 30 Days: No Second Hand Smoke Exposure: No Use of substances other than those prescribed or required for medical reasons: No Currently Displaying Signs/Symptoms of Drug Intoxication Withdrawal: No Have you been hit, kicked, punched, or otherwise hurt by someone within the past year? If so, by whom?: No Do you feel safe in your current relationship?: No Current Relationship Is there a partner from a previous relationship who is making you feel unsafe now?: No Are you made to feel afraid or neglected: No Advance Directives: Yes Advance Directives on File: Yes Advance Directives Date on File: 11/21/19 Do you have thoughts of harming others: None Do you have a plan to hurt others: No Plan Recently lost weight without trying: No Nutrition Risks: No Nutritional Risk Poor oral hygiene: No service: No Current occupational status: disabled Meds Allergies Allergy/AdvReac Type Severity Reaction Status Date / Time aripiprazole [From ABILIFY] Allergy Severe Involuntary Verified 08/29/22 15:15 Spasms droperidol [From INAPSINE] Allergy Severe Involuntary Verified 08/29/22 15:15 Spasms haloperidol [From HALDOL] Allergy Severe Involuntary Verified 08/29/22 15:15 Spasms prochlorperazine Allergy Severe Involuntary Verified 08/29/22 15:15 [From COMPAZINE] Spasms promethazine [From PHENERGAN] Allergy Severe Involuntary Verified 08/29/22 15:15 Spasms sulfamethoxazole Allergy Severe Anaphylaxis Verified 08/29/22 15:15 [From BACTRIM] trimethoprim [From BACTRIM] Allergy Severe Anaphylaxis Verified 08/29/22 15:15 Active Medications: Current Medications Diazepam (Diazepam 2 Mg Tablet) 2 mg PO TID PENDING SALE TO [facility] Divalproex Sodium (Divalproex Sodium Er 500 Mg Tab.Er.24h) 500 mg PO BID PENDING SALE TO [facility] Famotidine (Famotidine/Pf 20 Mg/2 Ml Vial) 20 mg IVPUSH DAILY PENDING SALE TO [facility] Norepinephrine Bitartrate (Levophed) 8 mg in 250 mls @ 0 mls/hr IV .Q0M PENDING SALE TO [facility]; Protocol Last Titration: 03/09/23 23:29 Dose: 0.5 mcg/kg/min, 94.88 mls/hr Albumin Human (Kedbumin 25 %) 50 mls @ 100 mls/hr IV Q30M PENDING SALE TO [facility] Stop: 03/10/23 00:14 Last Infusion: 03/09/23 22:59 Dose: Infused Piperacillin Sod/Tazobactam (Sod 4.5 gm/ Sodium Chloride) 100 mls @ 200 mls/hr IV Q8H PENDING SALE TO [facility] Vancomycin HCl (Vancomycin/Ns) 2,000 mg in 520 mls @ 250 mls/hr IV ONCE ONE Stop: 03/10/23 00:34 Melatonin (Melatonin 3 Mg Tablet) 3 mg PO BEDTIME PENDING SALE TO [facility] Pharmacy Consult (Consult Rx Vancomycin Dosing) 1 each MISCELLANE DAILY PRN PRN Reason: Consult order Home Medications Medication Instructions Recorded Confirmed Last Taken Type diazepam 2 mg tablet 2 mg PO TID 11/17/19 03/09/23 03/15/22 History melatonin 1 mg tablet 1 mg PO BEDTIME 11/17/19 03/09/23 11/16/19 History acetaminophen 500 mg tablet 500 mg PO Q6H PRN FEVER/MILD PAIN 02/13/20 03/09/23 Unknown History bisacodyl 10 mg rectal suppository 10 mg FL Q24H PRN Constipation 02/13/20 03/09/23 Unknown History cholecalciferol (vitamin D3) 25 50 mcg PO DAILY 02/13/20 03/09/23 Unknown History mcg (1,000 unit) tablet ibuprofen 800 mg tablet 800 mg PO Q8H PRN FEVER/PAIN 02/13/20 03/09/23 Unknown History pregabalin 100 mg capsule 100 mg PO TID 02/13/20 03/09/23 03/15/22 History sennosides 8.6 mg-docusate sodium 1 tab-cap PO DAILY 02/13/20 03/09/23 Unknown History 50 mg capsule (Senna Plus) sennosides 8.6 mg-docusate sodium 1 tab-cap PO Q24H PRN Constipation 02/13/20 03/09/23 Unknown History 50 mg capsule (Senna Plus) lactulose 10 gram/15 mL (15 mL) 30 ml PO DAILY 03/09/22 03/09/23 Unknown History oral solution polyethylene glycol 3350 17 17 g PO BID 03/09/22 03/09/23 Unknown History gram/dose oral powder (Miralax) divalproex 500 mg tablet,extended 500 mg PO BID 04/20/22 03/09/23 Unknown History release 24 hr (Depakote ER) metoprolol succinate 25 mg 25 mg PO BID 04/23/22 03/09/23 Unknown History tablet,extended release 24 hr sodium phosphates 19 gram-7 118 ml FL DAILY PRN Constipation 04/23/22 03/09/23 Unknown History gram/118 mL enema (Fleet Enema) aluminum-mag hydroxide-simethicone 30 ml PO Q4H PRN Heartburn 05/11/22 03/09/23 Unknown History 200 mg-200 mg-20 mg/5 mL oral susp dextromethorphan-guaifenesin 10 10 ml PO Q4H PRN Cough 05/11/22 03/09/23 Unknown History mg-100 mg/5 mL oral syrup (Tussin DM) psyllium 1 packet PO BID 05/11/22 03/09/23 Unknown History guaifenesin 600 mg tablet, 600 mg PO BID 03/09/23 03/09/23 Unknown History extended release 12 hr Physical Exam Vital Signs: Vital Signs: Last Vital Signs Temp 99.5 F 03/09/23 23:00 Pulse 68 03/09/23 23:29 Resp 14 03/09/23 23:00 BP 95/57 L 03/09/23 23:34 Pulse Ox 95 03/09/23 23:00 O2 Del Method Nasal Cannula 03/09/23 23:00 O2 Flow Rate 4 03/09/23 23:00 Oxygen Flow Rate 3 03/09/23 14:50 BMI result Body Mass Index 34.9 Results Labs 03/10/23 04:38 03/10/23 04:38 Labs: Laboratory Results - last 24 hr 03/09/23 03/09/23 03/09/23 15:09 15:14 15:15 MCV 92.7 MCH 30.4 MCHC 32.8 RDW 13.5 Plt Count 89 L D MPV 11.8 Immature Gran % (Auto) 0.3 Neut % (Auto) 79.5 H Lymph % (Auto) 9.4 L Cass % (Auto) 10.3 Eos % (Auto) 0.3 Baso % (Auto) 0.2 Lymph # (Auto) 0.5 L Cass # (Auto) 0.6 Eos # (Auto) 0.0 Baso # (Auto) 0.0 Abs Immat Gran (auto) 0.02 Absolute Neuts (auto) 4.6 Absolute Nucleated RBC 0.000 Nucleated RBC % (auto) 0.0 PT 12.9 INR 1.1 O2 Saturation 92.0 ABG pH at Pt Temp 7.42 ABG pCO2 at Pt Temp 50 H ABG pO2 at Pt Temp 65 L ABG HCO3 33 H ABG Base Excess (Actual) 7.7 Anion Gap 14 Estim Creat Clear Calc 94.4 Estimated GFR > 60 Random Glucose 110 Lactic Acid 1.4 Calcium 8.9 D Magnesium 2.0 Total Bilirubin 0.6 Direct Bilirubin 0.2 AST 14 ALT 8 Alkaline Phosphatase 40 B-Natriuretic Peptide 23 Total Protein 7.1 Albumin 3.8 Lipase 7 L Urine Color Urine Appearance Urine pH Ur Specific Landenberg Urine Protein Urine Glucose (UA) Urine Ketones Urine Blood Urine Nitrite Ur Leukocyte Esterase Stool Occult Blood COVID-19 (DIEGO) COVID-19 Clin Com Influenza Type A (LENCHO) Influenza Type B (LENCHO) Influenza A & B Note 03/09/23 03/09/23 03/09/23 15:38 21:05 23:08 MCV 93.3 MCH 30.7 MCHC 32.9 RDW 13.7 Plt Count 78 L MPV 11.7 Immature Gran % (Auto) 0.3 Neut % (Auto) 76.2 H Lymph % (Auto) 14.5 L Cass % (Auto) 8.6 Eos % (Auto) 0.1 Baso % (Auto) 0.3 Lymph # (Auto) 1.0 L Cass # (Auto) 0.6 Eos # (Auto) 0.0 Baso # (Auto) 0.0 Abs Immat Gran (auto) 0.02 Absolute Neuts (auto) 5.4 Absolute Nucleated RBC 0.000 Nucleated RBC % (auto) 0.0 PT INR O2 Saturation ABG pH at Pt Temp ABG pCO2 at Pt Temp ABG pO2 at Pt Temp ABG HCO3 ABG Base Excess (Actual) Anion Gap Estim Creat Clear Calc Estimated GFR Random Glucose Lactic Acid 0.7 Calcium Magnesium Total Bilirubin Direct Bilirubin AST ALT Alkaline Phosphatase B-Natriuretic Peptide Total Protein Albumin Lipase Urine Color Yellow Urine Appearance Clear Urine pH 5.5 Ur Specific Landenberg >= 1.030 H Urine Protein Negative Urine Glucose (UA) Negative Urine Ketones 15 Urine Blood Negative Urine Nitrite Negative Ur Leukocyte Esterase Negative Stool Occult Blood NEGATIVE COVID-19 (DIEGO) Negative COVID-19 Clin Com See Note Influenza Type A (LENCHO) Negative Influenza Type B (LENCHO) Negative Influenza A & B Note See Note Imaging Radiologist's Impressions: Impressions Abdomen/Pelvis CT 03/09/23 16:13 IMPRESSION: 1. No acute intra-abdominal process seen. 2. Moderate to significant constipation without obstruction. 3. There is a patchy airspace disease/infiltrate in right lower lobe and minimal opacity/infiltrate/atelectasis in left lung base. Fleischner guidelines were followed. Chest X-Ray 03/09/23 16:15 IMPRESSION: Hypoinflated lungs with bibasilar atelectasis. Chest X-Ray 03/09/23 22:12 IMPRESSION: 1. Right basilar platelike atelectasis. 2. Right jugular central line tip in mid SVC.
[2023-03-09 23:40] LABS: Alanine Aminotransferase < 5 U/L (0-40); Albumin Level 3.4 g/dL (3.5-5.0); Alkaline Phosphatase 27 U/L (39-117); Anion Gap 10 (12-20); Aspartate Amino Transferase 9 U/L (5-37); Bilirubin Total 0.7 mg/dL (0.0-1.0); Blood Urea Nitrogen 16 mg/dL (9-16); Carbon Dioxide 31 mmol/L (22-29); Chloride 109 mmol/L (96-108); Creatinine Clr Calc Pharmacy 121.6; Estimated Glomerular Filt Rate > 60; Glucose Random 98 mg/dL (60-115); Sodium 146 mmol/L (135-145); Total Protein 5.6 g/dL (6.5-8.0)
--- NOTE | 2023-03-09 23:52 | PC.NURSE ---
Levofed titrated per Chance PA verbal orders (reflected in MAR) titrated up to 0.5 as MAP was only 43. Per Chance titrate up to 0.5 until map reaches > 70. - en route to ICU drip titrated back down from 0.5 to 0.2 for HR > 120 and MAP > 70. pt alert speaking clear full sentences, info transmitted to accepting RN in ICU.
[2023-03-10] VITALS (44 sets, daily range): BP systolic 81–146; BP diastolic 40–90; PULSE 48–122; RESP 11–34; TEMP 37–38; O2SAT 90–100; BMI 36.4; BMI 33.4
--- NOTE | 2023-03-10 | ECG_ITS ---
Test Reason : TACHY RHETT Blood Pressure : / mmHG Vent. Rate : 066 BPM Atrial Rate : 066 BPM P-R Int : 232 ms QRS Dur : 084 ms QT Int : 384 ms P-R-T Axes : 000 -13 024 degrees QTc Int : 402 ms Poor data quality Sinus rhythm with 1st degree A-V block Low voltage QRS Nonspecific ST abnormality Abnormal ECG When compared to the previous EKG of Poor data quality in current ECG precludes serial comparison Referred By: Caryn Seymour Electronically Signed By:ROSITA FREGOSO MD
[2023-03-10] MEDS: Piperacillin Sodium/Tazobactam 4.5 GM in 0.9 % Sodium Chloride 100 ML IV ×4 (00:11→22:58)
[2023-03-10] MEDS: Albumin Human 25 % 100 ML 133.33 ML IV ×2 (00:31→01:34)
[2023-03-10 00:32] LABS: VBG Base Excess 4.1 mmol/L; VBG HCO3 29 mmol/L (22-26); VBG pCO2 46 mmHg; VBG pO2 68 mmHg
[2023-03-10 00:59] LABS: Venous Blood Gas Refer to POC result
[2023-03-10 01:22] LABS: Glucose, Whole Blood 127 mg/dL (60-115)
[2023-03-10 01:27] LABS: Phosphorus 3.7 mg/dL (2.7-4.5)
[2023-03-10] MEDS: glucagon HCL 1 MG VIAL IVPUSH (01:33)
[2023-03-10] MEDS: Magnesium Sulfate/H2O 2 GM/50 ML PIGGYBACK IV (01:33)
[2023-03-10 01:45] LABS: Free T4 (Free Thyroxine) 0.83 ng/dL (0.71-1.85); Thyroid Stimulating Hormone 0.65 uIU/mL (0.32-4.0)
[2023-03-10] MEDS: DOPamine HCL/D5W 400 MG/250 ML PLAST..BAG 19.76 MG IVCONT ×2 (02:52→11:05)
--- NOTE | 2023-03-10 03:21 | ECG_ITS ---
Test Reason : rhythm change Blood Pressure : / mmHG Vent. Rate : 104 BPM Atrial Rate : 104 BPM P-R Int : 168 ms QRS Dur : 082 ms QT Int : 342 ms P-R-T Axes : 062 -11 042 degrees QTc Int : 450 ms Sinus tachycardia with Premature atrial complexes Low voltage QRS Nonspecific ST abnormality Abnormal ECG When compared to the previous EKG of Premature atrial complexes are now Present Referred By: Caryn Seymour Electronically Signed By:ROSITA FREGOSO MD
[2023-03-10] MEDS: Metoclopramide HCl 10 MG/2 ML VIAL 5 MG IVPUSH (03:41)
[2023-03-10 04:47] LABS: Venous Blood Gas Refer to POC result
[2023-03-10 04:50] LABS: VBG Base Excess 5.4 mmol/L; VBG HCO3 30 mmol/L (22-26); VBG pCO2 48 mmHg; VBG pO2 75 mmHg
[2023-03-10 04:53] LABS: Basophils Percent Auto 0.3 % (0-2); Imm Gran Abs Auto 0.02 X10*3/uL (0.00-0.03); Imm Gran Pct Auto 0.3 % (0.0-0.4); MANUAL DIFF FLAG SCAN; PLT CLUMP 1; Red Cell Distribution Width 13.6 % (11.0-16.0); SCAN SMEAR FLAG 1
[2023-03-10 04:55] LABS: Eosinophils Absolute Auto 0.1 X10*3/uL (0.0-0.4); Eosinophils Percent Auto 0.8 % (0-4); Hematocrit 38.2 % (42.0-52.0); Hemoglobin 12.3 g/dl (14.0-18.0); Lymphocytes Percent Auto 15.1 % (20-40); Mean Corpuscular HGB Conc 32.2 g/dl (31.0-36.0); Mean Corpuscular Hemoglobin 30.4 pg (27.0-33.0); Mean Corpuscular Volume 94.6 fL (80.0-98.0); Mean Platelet Volume 11.7 fL (9.4-12.4); Monocytes Absolute Auto 0.7 X10*3/uL (0.1-1.2); Neutrophils Absolute Auto 4.9 x10*3/uL (2.0-8.3); Neutrophils Percent Auto 73.5 % (45-73); Red Blood Count 4.04 X10*6/uL (4.60-5.80)
[2023-03-10 04:56] LABS: Platelet Count 76 X10*3/uL (160-400); White Blood Count 6.6 X10*3/uL (4.8-10.8)
[2023-03-10 05:06] LABS: Alanine Aminotransferase 5 U/L (0-40); Albumin Level 4.1 g/dL (3.5-5.0); Alkaline Phosphatase 29 U/L (39-117); Anion Gap 11 (12-20); Aspartate Amino Transferase 10 U/L (5-37); Bilirubin Total 0.8 mg/dL (0.0-1.0); Blood Urea Nitrogen 15 mg/dL (9-16); Calcium 8.5 mg/dL (8.4-10.2); Carbon Dioxide 29 mmol/L (22-29); Chloride 111 mmol/L (96-108); Creatinine Clr Calc Pharmacy 107.1; Estimated Glomerular Filt Rate > 60; Glucose Random 163 mg/dL (60-115); Potassium 3.3 mmol/L (3.3-5.1); Sodium 148 mmol/L (135-145); Total Protein 6.4 g/dL (6.5-8.0)
[2023-03-10 05:25] LABS: SLIDE REVIEW VERIFIED
[2023-03-10] MEDS: Potassium Chloride Packet 20 MEQ PACKET 40 MEQ PO (06:43)
--- NOTE | 2023-03-10 06:51 | PHA.PROG ---
Admission Date/Time: March 09, 2023 22:19 Indication: SEPSIS Weight in k.4 kg Adjusted body weight in K.82 [place] body weight in K.1 Obesity Dosing Indication % IBW: OBESE Serum Creatinine - Last 168 Hours 03/09/23 03/09/23 03/10/23 15:14 23:08 04:38 Creatinine 0.96 0.75 0.87 Estimated CrCl and GFR - Last 168 Hours 03/09/23 03/09/23 03/10/23 15:14 23:08 04:38 Estim Creat Clear Calc 94.4 121.6 107.1 Estimated GFR > 60 > 60 > 60 Vancomycin Loading Dose: 2000 Current Vancomycin Dosing Regimen: 1500 Q12H Vancomycin Monitoring using AUC goal of 400 - 600 range with trough as surrogate marker: 588 Date and Time for next Vancomycin Level to be drawn: 03/11 @1000 Pharmacist Comments on Vancomycin Plan: Patient has CAP and sepsis, will get level after doses of 1500 to adjust for safety vs efficacy. Current goal is to get patients AUC/trough up as quickly as we can. Vancomycin dosing will take advantage of [employer] as a clinical decision support tool that uses Bayesian modeling to calculate individual patient's pharmacokinetic parameters and forecast the patient's drug concentration time course with the target goal AUC 24 range of 400 - 600 mg/L/hr.
[2023-03-10] MEDS: ondansetron HCL 4 MG/2 ML VIAL IVPUSH (07:42)
--- NOTE | 2023-03-10 07:48 | PM.CCPN ---
Subjective Subjective Date of Service: 03/10/23 Critical Care Time (minutes): 90 Physical Exam Vital Signs: Vital Signs: Last Vital Signs Temp 99.9 F 03/10/23 07:00 Pulse 70 03/10/23 07:00 Resp 11 L 03/10/23 07:00 BP 131/66 03/10/23 07:00 Pulse Ox 99 03/10/23 07:00 O2 Del Method Nasal Cannula 03/10/23 07:00 O2 Flow Rate 3 03/10/23 07:00 Oxygen Flow Rate 3 03/09/23 14:50 BMI result Body Mass Index 36.4 Const: General: cooperative, comfortable, no acute distress, well developed, alert, awake and Physically active Orientation/consciousness: patient oriented x3 HEENT: Head: Yes normal to inspection, Yes normocephalic and Yes atraumatic Eyes: General: appearance normal, both eyes and all related structures Neck: Neck: Yes normal visual inspection, Yes no meningeal signs and Yes supple Chest: Chest palpation & inspection: normal inspection of the chest Resp: Other: some appreciable rhonchi bilateral lower lung charles; no appreciable rales, wheezing Effort & Inspection: normal respiratory effort Cardio: Rate: regular rate Rhythm: regular rhythm GI: Other: normoactive bowel sounds Inspection: Yes normal to inspection, No Abdominal wall edema and No distended Palpation (GI): Soft to palpation, not firm, nontender, no guarding and not rigid Skin: General skin exam: no rashes or lesions noted Neuro: General: patient oriented x3, tone normal, moves all extremities, no meningeal signs and no focal motor deficits Extrem: Other: 2+ pitting edema to bilateral shins General: Yes normal to inspection and Yes capillary refill normal Psych: Appearance: grossly normal Objective Data Labs 03/10/23 04:38 03/10/23 04:38 Labs: Laboratory Results - last 24 hr 03/09/23 03/09/23 03/09/23 15:09 15:14 15:15 WBC 5.8 RBC 4.90 Hgb 14.9 Hct 45.4 MCV 92.7 MCH 30.4 MCHC 32.8 RDW 13.5 Plt Count 89 L D MPV 11.8 Immature Gran % (Auto) 0.3 Neut % (Auto) 79.5 H Lymph % (Auto) 9.4 L [place] % (Auto) 10.3 Eos % (Auto) 0.3 Baso % (Auto) 0.2 Lymph # (Auto) 0.5 L [place] # (Auto) 0.6 Eos # (Auto) 0.0 Baso # (Auto) 0.0 Abs Immat Gran (auto) 0.02 Absolute Neuts (auto) 4.6 Absolute Nucleated RBC 0.000 Nucleated RBC % (auto) 0.0 Smear Tech's Comments PT 12.9 INR 1.1 O2 Saturation 92.0 ABG pH at Pt Temp 7.42 ABG pCO2 at Pt Temp 50 H ABG pO2 at Pt Temp 65 L ABG HCO3 33 H ABG Base Excess (Actual) 7.7 VBG pH VBG pCO2 VBG pO2 VBG HCO3 VBG O2 Saturation VBG Base Excess Sodium 143 Potassium 3.7 Chloride 105 Carbon Dioxide 28 Anion Gap 14 BUN 22 H Creatinine 0.96 Estim Creat Clear Calc 94.4 Estimated GFR > 60 POC Glucose Random Glucose 110 Lactic Acid 1.4 Calcium 8.9 D Phosphorus Magnesium 2.0 Total Bilirubin 0.6 Direct Bilirubin 0.2 AST 14 ALT 8 Alkaline Phosphatase 40 Total Creatine Kinase Troponin I High Sens 6.1 D B-Natriuretic Peptide 23 Total Protein 7.1 Albumin 3.8 Lipase 7 L TSH Free T4 Urine Color Urine Appearance Urine pH Ur Specific [place] Urine Protein Urine Glucose (UA) Urine Ketones Urine Blood Urine Nitrite Ur Leukocyte Esterase Stool Occult Blood COVID-19 (DIEGO) COVID-19 Clin Com Influenza Type A (LENCHO) Influenza Type B (LENCHO) Influenza A & B Note 03/09/23 03/09/23 03/09/23 15:38 18:45 21:05 WBC RBC Hgb Hct MCV MCH MCHC RDW Plt Count MPV Immature Gran % (Auto) Neut % (Auto) Lymph % (Auto) [place] % (Auto) Eos % (Auto) Baso % (Auto) Lymph # (Auto) [place] # (Auto) Eos # (Auto) Baso # (Auto) Abs Immat Gran (auto) Absolute Neuts (auto) Absolute Nucleated RBC Nucleated RBC % (auto) Smear Tech's Comments PT INR O2 Saturation ABG pH at Pt Temp ABG pCO2 at Pt Temp ABG pO2 at Pt Temp ABG HCO3 ABG Base Excess (Actual) VBG pH VBG pCO2 VBG pO2 VBG HCO3 VBG O2 Saturation VBG Base Excess Sodium Potassium Chloride Carbon Dioxide Anion Gap BUN Creatinine Estim Creat Clear Calc Estimated GFR POC Glucose Random Glucose Lactic Acid Calcium Phosphorus Magnesium Total Bilirubin Direct Bilirubin AST ALT Alkaline Phosphatase Total Creatine Kinase Troponin I High Sens 14.6 D B-Natriuretic Peptide Total Protein Albumin Lipase TSH Free T4 Urine Color Yellow Urine Appearance Clear Urine pH 5.5 Ur Specific [place] >= 1.030 H Urine Protein Negative Urine Glucose (UA) Negative Urine Ketones 15 Urine Blood Negative Urine Nitrite Negative Ur Leukocyte Esterase Negative Stool Occult Blood NEGATIVE COVID-19 (DIEGO) Negative COVID-19 Clin Com See Note Influenza Type A (LENCHO) Negative Influenza Type B (LENCHO) Negative Influenza A & B Note See Note 03/09/23 03/10/23 03/10/23 23:08 00:25 01:18 WBC 7.1 RBC 3.75 L D Hgb 11.5 L D Hct 35.0 L D MCV 93.3 MCH 30.7 MCHC 32.9 RDW 13.7 Plt Count 78 L MPV 11.7 Immature Gran % (Auto) 0.3 Neut % (Auto) 76.2 H Lymph % (Auto) 14.5 L [place] % (Auto) 8.6 Eos % (Auto) 0.1 Baso % (Auto) 0.3 Lymph # (Auto) 1.0 L [place] # (Auto) 0.6 Eos # (Auto) 0.0 Baso # (Auto) 0.0 Abs Immat Gran (auto) 0.02 Absolute Neuts (auto) 5.4 Absolute Nucleated RBC 0.000 Nucleated RBC % (auto) 0.0 Smear Tech's Comments PT INR O2 Saturation ABG pH at Pt Temp ABG pCO2 at Pt Temp ABG pO2 at Pt Temp ABG HCO3 ABG Base Excess (Actual) VBG pH 7.40 VBG pCO2 46 VBG pO2 68 VBG HCO3 29 H VBG O2 Saturation 95.0 VBG Base Excess 4.1 Sodium 146 H Potassium 4.0 Chloride 109 H Carbon Dioxide 31 H Anion Gap 10 L BUN 16 Creatinine 0.75 Estim Creat Clear Calc 121.6 Estimated GFR > 60 POC Glucose 127 H Random Glucose 98 Lactic Acid 0.7 Calcium 8.0 L D Phosphorus 3.7 Magnesium Total Bilirubin 0.7 Direct Bilirubin AST 9 ALT < 5 Alkaline Phosphatase 27 L Total Creatine Kinase 68 Troponin I High Sens B-Natriuretic Peptide Total Protein 5.6 L Albumin 3.4 L Lipase TSH 0.65 Free T4 0.83 Urine Color Urine Appearance Urine pH Ur Specific [place] Urine Protein Urine Glucose (UA) Urine Ketones Urine Blood Urine Nitrite Ur Leukocyte Esterase Stool Occult Blood COVID-19 (DIEGO) COVID-19 Clin Com Influenza Type A (LENCHO) Influenza Type B (LENCHO) Influenza A & B Note 03/10/23 03/10/23 04:38 04:44 WBC 6.6 RBC 4.04 L Hgb 12.3 L Hct 38.2 L MCV 94.6 MCH 30.4 MCHC 32.2 RDW 13.6 Plt Count 76 L MPV 11.7 Immature Gran % (Auto) 0.3 Neut % (Auto) 73.5 H Lymph % (Auto) 15.1 L [place] % (Auto) 10.0 Eos % (Auto) 0.8 Baso % (Auto) 0.3 Lymph # (Auto) 1.0 L [place] # (Auto) 0.7 Eos # (Auto) 0.1 Baso # (Auto) 0.0 Abs Immat Gran (auto) 0.02 Absolute Neuts (auto) 4.9 Absolute Nucleated RBC 0.000 Nucleated RBC % (auto) 0.0 Smear Tech's Comments VERIFIED PT INR O2 Saturation ABG pH at Pt Temp ABG pCO2 at Pt Temp ABG pO2 at Pt Temp ABG HCO3 ABG Base Excess (Actual) VBG pH 7.40 VBG pCO2 48 VBG pO2 75 VBG HCO3 30 H VBG O2 Saturation 96.0 VBG Base Excess 5.4 Sodium 148 H Potassium 3.3 Chloride 111 H Carbon Dioxide 29 Anion Gap 11 L BUN 15 Creatinine 0.87 Estim Creat Clear Calc 107.1 Estimated GFR > 60 POC Glucose Random Glucose 163 H Lactic Acid Calcium 8.5 D Phosphorus Magnesium Total Bilirubin 0.8 Direct Bilirubin AST 10 ALT 5 Alkaline Phosphatase 29 L Total Creatine Kinase Troponin I High Sens B-Natriuretic Peptide Total Protein 6.4 L Albumin 4.1 Lipase TSH Free T4 Urine Color Urine Appearance Urine pH Ur Specific [place] Urine Protein Urine Glucose (UA) Urine Ketones Urine Blood Urine Nitrite Ur Leukocyte Esterase Stool Occult Blood COVID-19 (DIEGO) COVID-19 Clin Com Influenza Type A (LENCHO) Influenza Type B (LENCHO) Influenza A & B Note Progress Note: A&P Assessment and plan (1) Septic shock: Status: Acute (2) Acute respiratory failure with hypoxia: Status: Acute Plan Patient is a 58 Y M with prior neuroleptic malignant syndrome, c/b residual neurological deficits, neurogenic bladder, chronic constipation, recurrent aspiration, resides at nursing facility, initially presenting on 03/09 to ED w/ emesis, found to be hypotensive, hypoxic, and febrile, c/f septic shock, admitted ICU on vasopressors N: prior neuroleptic malignant syndrome; no acute issues CV: c/f septic shock, intermittent bradycardia, on dopamine gtt, wean as tolerated R: acute hypoxia, c/f pneumonia, on NC, wean as tolerated GI: chronic constipation, on extensive home regimen; of note, patient w/ intermittent nausea, judicious use of anti-emetics d/t prior neuroleptic malignant syndrome, prolonged QTc : neurogenic bladder; no acute issues H: no acute issues ID: septic shock, likely d/t pneumonia; empiric vancomycin, zosyn; to follow-up blood cultures E: no acute issues P: intermittent anxiety, though easily re-directable Quality Stroke Does the patient have a stroke diagnosis?: No Reason for No Anti-thrombotic by Day Two: N/A - Med Ordered VTE Prior VTE?: No VTE Risk Level:: Medical - moderate - high VTE Device Contraindication: N/A - Device Ordered VTE Drug Contraindication: N/A - Med Ordered
--- NOTE | 2023-03-10 08:00 | ECG_ITS ---
Test Reason : tach luc Blood Pressure : / mmHG Vent. Rate : 067 BPM Atrial Rate : 000 BPM P-R Int : 000 ms QRS Dur : 084 ms QT Int : 366 ms P-R-T Axes : 000 -18 025 degrees QTc Int : 386 ms Normal sinus rhythm Junctional ST depression, probably normal Abnormal ECG When compared to the previous EKG of Vent. rate has decreased Referred By: Caryn Seymour Electronically Signed By:ROSITA FREGOSO MD
[2023-03-10] MEDS: Calcium Chloride 1 GM/10 ML SYRINGE IVPUSH (08:19)
[2023-03-10] MEDS: Famotidine/PF 20 MG/2 ML VIAL IVPUSH (08:24)
[2023-03-10 08:44] LABS: Magnesium 2.4 mg/dL (1.6-2.6)
[2023-03-10] MEDS: LORazepam 2 MG/ML VIAL 0.5 MG IVPUSH (09:17)
--- NOTE | 2023-03-10 09:17 | MHC.CM.PN ---
CM SPOKE WITH SISTER /HCP JC WHO IS AT BEDSIDE IN ICU. PT IS A LTC RESIDENT OF [facility] AND PLAN IS TO RETURN ON DC FOR RESUMPTION OF LTC. PT WILL TRANSFER ON RECOVERY VIA BLS. [facility] CM WILL CONTINUE TO FOLLOW FOR ANY CHANGE IN DC PLAN/NEEDS
[2023-03-10] MEDS: Lactulose 20 GM/30 ML SOLUTION 10 GM PO (09:38)
[2023-03-10] MEDS: polyethylene glycoL 3350 17 GM POWD.PACK PO ×2 (09:39→20:00)
[2023-03-10] MEDS: Divalproex Sodium ER 500 MG TAB.ER.24H PO ×2 (09:39→19:59)
[2023-03-10] MEDS: diazePAM 2 MG TABLET 1 MG PO ×3 (09:39→20:35)
--- NOTE | 2023-03-10 10:55 | P.CONCA_ITS ---
History of Present Illness History of Present Illness Date of Service: 03/10/23 Requesting physician: Chance Flores Consult reason: hypotension and other (Slow heart rate) Chief complaint: sepsis CAP Narrative: I was consulted to see Matt in cardiology consultation today for relatively slow heart rate and hypertension. Patient currently living at [facility] and had episode of vomiting and high fevers and hypoxemia. He was therefore referred to the emergency room very was noted to be significantly hypoxic and subsequently while in the emergency room became hypotensive. This required vasopressor infusion and subsequently patient remained febrile without any significant leukocytosis or lactic acidosis but was treated as sepsis syndrome. Patient then was noted to have relative bradycardia with heart rate dipping in the sinus bradycardia at 48. Patient is at home on metoprolol. Patient was therefore started on dopamine as vasopressor agent for his hypertension bradycardia. Since then his heart rate is remained stable. One episode of heart rate up to 56 beats per minute. He was given calcium gluconate. Patient denies any prior cardiac history. Has history of hypertension. Currently feeling well and no cardiac symptoms. His admission troponin as well as BNP were within normal limits. Suspicion is for aspiration pneumonia. Patient denies any palpitations, lightheadedness, chest pain. Review of Systems 2 Constitutional: Constitutional: Reports no additional constitutional complaints Cardiovascular: Cardiovascular: Reports no additional cardiovascular complaints and Reports dyspnea Respiratory: Respiratory: Reports cough and Reports dyspnea Gastrointestinal: Gastrointestinal: Reports vomiting Musculoskeletal: Musculoskeletal: Reports no additional musculoskeletal complaints Integumentary/Breasts: Skin/Breast: Reports system reviewed and no additional complaints, except as docu Neurologic: Reports system reviewed and no additional complaints, except as documented Psychiatric: Psychiatric: Reports no additional psychiatric complaints Endocrine: Endocrine: Reports no additional endocrine complaints Hematologic/Lymphatic: Hematologic/Lymphatic: Reports no additional hematologic/lymphatic complaints [facility] Past Medical History Medical History Constipation Resides in intermediate facility History of GI bleed Seizure disorder Urinary incontinence Osteoarthritis Rectal prolapse Cognitive impairment Hx of deep venous thrombosis Thrombocytopenia Bilateral cataracts Personal history of COVID-19 Diverticular disease Flexion contractures OCD (obsessive compulsive disorder) History of hemodialysis Depression Neuroleptic malignant syndrome Epilepsy Deformity of left hand Generalized anxiety disorder Major depressive disorder Mild cognitive impairment Hypertension Family History Family History Sister Breast CA, Onset Age: 51 Ovarian ca, Onset Age: 55 Father Prostate CA, Onset Age: 70 Mother Colorectal cancer, Onset Age: 39 Kidney carcinoma, Onset Age: 67 Maternal Grandmother Colorectal cancer, Onset Age: 70 Maternal Aunt Colorectal cancer Surgical History Surgical History History of incisional hernia repair (03/15/22) History of repair of rectocele Hx of appendectomy Hx of colonoscopy Social History Social History Household Members: None Household Members Other:: [facility] Housing: Assisted Living Facility Housing Other:: intermediate [facility]-[phone] Are you a primary home care rn to a significant other at home: No Do you presently have visiting nurse or other home services: No ([facility] Res[facility]) Unable to assess alcohol history related to: Unable to respond Alcohol intake: never Comment: [facility] [place] Patient Tobacco Use Status: Never used Tobacco Smoked in Last 30 Days: No Second Hand Smoke Exposure: No Use of substances other than those prescribed or required for medical reasons: No Currently Displaying Signs/Symptoms of Drug Intoxication Withdrawal: No Have you been hit, kicked, punched, or otherwise hurt by someone within the past year? If so, by whom?: No Do you feel safe in your current relationship?: No Current Relationship Is there a partner from a previous relationship who is making you feel unsafe now?: No Are you made to feel afraid or neglected: No Advance Directives: Yes Advance Directives on File: Yes Advance Directives Date on File: 11/21/19 Do you have thoughts of harming others: None Do you have a plan to hurt others: No Plan Recently lost weight without trying: No Nutrition Risks: No Nutritional Risk Poor oral hygiene: No service: No Current occupational status: disabled Meds Allergies Allergy/AdvReac Type Severity Reaction Status Date / Time aripiprazole [From ABILIFY] Allergy Severe Involuntary Verified 08/29/22 15:15 Spasms droperidol [From INAPSINE] Allergy Severe Involuntary Verified 08/29/22 15:15 Spasms haloperidol [From HALDOL] Allergy Severe Involuntary Verified 08/29/22 15:15 Spasms prochlorperazine Allergy Severe Involuntary Verified 08/29/22 15:15 [From COMPAZINE] Spasms promethazine [From PHENERGAN] Allergy Severe Involuntary Verified 08/29/22 15:15 Spasms sulfamethoxazole Allergy Severe Anaphylaxis Verified 08/29/22 15:15 [From BACTRIM] trimethoprim [From BACTRIM] Allergy Severe Anaphylaxis Verified 08/29/22 15:15 Active Medications: Current Medications Bisacodyl (Bisacodyl 5 Mg Tablet.Dr) 10 mg PO DAILY [facility] Diazepam (Diazepam 2 Mg Tablet) 1 mg PO TID [facility] Last Admin: 03/10/23 09:39 Dose: 1 mg Divalproex Sodium (Divalproex Sodium Er 500 Mg Tab.Er.24h) 500 mg PO BID [facility] Last Admin: 03/10/23 09:39 Dose: 500 mg Famotidine (Famotidine/Pf 20 Mg/2 Ml Vial) 20 mg IVPUSH DAILY [facility] Last Admin: 03/10/23 08:24 Dose: 20 mg Piperacillin Sod/Tazobactam (Sod 4.5 gm/ Sodium Chloride) 100 mls @ 200 mls/hr IV Q8H [facility] Last Infusion: 03/10/23 07:06 Dose: Infused Dopamine HCl/Dextrose (Dopamine Hcl/D5w) 400 mg in 250 mls @ 0 mls/hr IVCONT .Q0M [facility]; Protocol Last Titration: 03/10/23 10:02 Dose: 5 mcg/kg/min, 19.76 mls/hr Vancomycin HCl 1,500 mg/ (Sodium Chloride) 500 mls @ 333.333 mls/hr IV Q12H [facility] Acetaminophen (Ofirmev) 1,000 mg in 100 mls @ 400 mls/hr IV Q6H PRN PRN Reason: Fever >100.4 Lactulose (Lactulose 20 Gm/30 Ml Solution) 10 gm PO DAILY [facility] Last Admin: 03/10/23 09:38 Dose: 10 gm Melatonin (Melatonin 3 Mg Tablet) 3 mg PO BEDTIME [facility] Ondansetron HCl (Ondansetron Hcl 4 Mg/2 Ml Vial) 4 mg IVPUSH Q8H PRN PRN Reason: Nausea and Vomiting Last Admin: 03/10/23 07:42 Dose: 4 mg Pharmacy Consult (Consult Rx Vancomycin Dosing) 1 each MISCELLANE DAILY PRN PRN Reason: Consult order Polyethylene Glycol (Polyethylene Glycol 3350 17 Gm Powd.Pack) 17 gm PO BID [facility] Last Admin: 03/10/23 09:39 Dose: 17 gm Senna (Senna Pettibone Extract Oral Syrup 15 Ml Syrup) 7.5 ml PO BEDTIME [facility] Last Admin: 03/10/23 09:39 Dose: 7.5 ml Sodium Biphosphate/Sodium Phosphate (Sodium Phosphate,Burnett-Dibasic 133 Ml Enema) 133 ml TX ONCE PRN PRN Reason: Constipation Home Medications Medication Instructions Recorded Confirmed Last Taken Type diazepam 2 mg tablet 2 mg PO TID 11/17/19 03/09/23 03/15/22 History melatonin 1 mg tablet 1 mg PO BEDTIME 11/17/19 03/09/23 11/16/19 History acetaminophen 500 mg tablet 500 mg PO Q6H PRN FEVER/MILD PAIN 02/13/20 03/09/23 Unknown History bisacodyl 10 mg rectal suppository 10 mg TX Q24H PRN Constipation 02/13/20 03/09/23 Unknown History cholecalciferol (vitamin D3) 25 50 mcg PO DAILY 02/13/20 03/09/23 Unknown History mcg (1,000 unit) tablet ibuprofen 800 mg tablet 800 mg PO Q8H PRN FEVER/PAIN 02/13/20 03/09/23 Unknown History pregabalin 100 mg capsule 100 mg PO TID 02/13/20 03/09/23 03/15/22 History sennosides 8.6 mg-docusate sodium 1 tab-cap PO DAILY 02/13/20 03/09/23 Unknown History 50 mg capsule (Senna Plus) sennosides 8.6 mg-docusate sodium 1 tab-cap PO Q24H PRN Constipation 02/13/20 03/09/23 Unknown History 50 mg capsule (Senna Plus) lactulose 10 gram/15 mL (15 mL) 30 ml PO DAILY 03/09/22 03/09/23 Unknown History oral solution polyethylene glycol 3350 17 17 g PO BID 03/09/22 03/09/23 Unknown History gram/dose oral powder (Miralax) divalproex 500 mg tablet,extended 500 mg PO BID 04/20/22 03/09/23 Unknown History release 24 hr (Depakote ER) metoprolol succinate 25 mg 25 mg PO BID 04/23/22 03/09/23 Unknown History tablet,extended release 24 hr sodium phosphates 19 gram-7 118 ml TX DAILY PRN Constipation 04/23/22 03/09/23 Unknown History gram/118 mL enema (Fleet Enema) aluminum-mag hydroxide-simethicone 30 ml PO Q4H PRN Heartburn 05/11/22 03/09/23 Unknown History 200 mg-200 mg-20 mg/5 mL oral susp dextromethorphan-guaifenesin 10 10 ml PO Q4H PRN Cough 05/11/22 03/09/23 Unknown History mg-100 mg/5 mL oral syrup (Tussin DM) psyllium 1 packet PO BID 05/11/22 03/09/23 Unknown History guaifenesin 600 mg tablet, 600 mg PO BID 03/09/23 03/09/23 Unknown History extended release 12 hr Physical Exam 2 Vital Signs: Vital Signs: Last Vital Signs Temp 100.0 F 03/10/23 10:00 Pulse 75 03/10/23 10:02 Resp 32 H 03/10/23 10:00 BP 140/89 H 03/10/23 10:02 Pulse Ox 100 03/10/23 10:00 O2 Del Method Nasal Cannula 03/10/23 10:00 O2 Flow Rate 3 03/10/23 10:00 Oxygen Flow Rate 3 03/09/23 14:50 BMI result Body Mass Index 33.4 Const: General: cooperative, comfortable, no acute distress, alert and awake Nutritional Appearance: overweight Orientation/consciousness: patient oriented x3 HEENT: Head: Yes normocephalic and Yes atraumatic Neck: Neck: Yes trachea midline, Yes supple and Yes no JVD Resp: Effort & Inspection: normal respiratory effort Auscultation: crackles on the right at the base Cardio: Jugular venous distension: no JVD Palpation: normal PMI Rate: r egular rate Rhythm: regular rhythm Heart sounds: S1 normal heart sound present, S2 normal heart sound present, no click, no gallops, no murmurs and no rubs GI: Auscultation: normal bowel sounds Skin: General skin exam: no rashes or lesions noted Neuro: General: patient oriented x3 and no focal motor deficits Extrem: General: Yes no clubbing, cyanosis or edema Objective Labs and Meds 03/10/23 04:38 03/10/23 04:38 Lab results: Laboratory Results - last 24 hr 03/09/23 03/09/23 03/09/23 15:09 15:14 15:15 WBC 5.8 RBC 4.90 Hgb 14.9 Hct 45.4 MCV 92.7 MCH 30.4 MCHC 32.8 RDW 13.5 Plt Count 89 L D MPV 11.8 Immature Gran % (Auto) 0.3 Neut % (Auto) 79.5 H Lymph % (Auto) 9.4 L Burnett % (Auto) 10.3 Eos % (Auto) 0.3 Baso % (Auto) 0.2 Lymph # (Auto) 0.5 L Burnett # (Auto) 0.6 Eos # (Auto) 0.0 Baso # (Auto) 0.0 Abs Immat Gran (auto) 0.02 Absolute Neuts (auto) 4.6 Absolute Nucleated RBC 0.000 Nucleated RBC % (auto) 0.0 Smear Tech's Comments PT 12.9 INR 1.1 O2 Saturation 92.0 ABG pH at Pt Temp 7.42 ABG pCO2 at Pt Temp 50 H ABG pO2 at Pt Temp 65 L ABG HCO3 33 H ABG Base Excess (Actual) 7.7 VBG pH VBG pCO2 VBG pO2 VBG HCO3 VBG O2 Saturation VBG Base Excess Sodium 143 Potassium 3.7 Chloride 105 Carbon Dioxide 28 Anion Gap 14 BUN 22 H Creatinine 0.96 Estim Creat Clear Calc 94.4 Estimated GFR > 60 POC Glucose Random Glucose 110 Lactic Acid 1.4 Calcium 8.9 D Phosphorus Magnesium 2.0 Total Bilirubin 0.6 Direct Bilirubin 0.2 AST 14 ALT 8 Alkaline Phosphatase 40 Total Creatine Kinase Troponin I High Sens 6.1 D B-Natriuretic Peptide 23 Total Protein 7.1 Albumin 3.8 Lipase 7 L TSH Free T4 Urine Color Urine Appearance Urine pH Ur Specific [place] Urine Protein Urine Glucose (UA) Urine Ketones Urine Blood Urine Nitrite Ur Leukocyte Esterase Stool Occult Blood COVID-19 (DIEGO) COVID-19 Clin Com Influenza Type A (LENCHO) Influenza Type B (LENCHO) Influenza A & B Note 03/09/23 03/09/23 03/09/23 15:38 18:45 21:05 WBC RBC Hgb Hct MCV MCH MCHC RDW Plt Count MPV Immature Gran % (Auto) Neut % (Auto) Lymph % (Auto) Burnett % (Auto) Eos % (Auto) Baso % (Auto) Lymph # (Auto) Burnett # (Auto) Eos # (Auto) Baso # (Auto) Abs Immat Gran (auto) Absolute Neuts (auto) Absolute Nucleated RBC Nucleated RBC % (auto) Smear Tech's Comments PT INR O2 Saturation ABG pH at Pt Temp ABG pCO2 at Pt Temp ABG pO2 at Pt Temp ABG HCO3 ABG Base Excess (Actual) VBG pH VBG pCO2 VBG pO2 VBG HCO3 VBG O2 Saturation VBG Base Excess Sodium Potassium Chloride Carbon Dioxide Anion Gap BUN Creatinine Estim Creat Clear Calc Estimated GFR POC Glucose Random Glucose Lactic Acid Calcium Phosphorus Magnesium Total Bilirubin Direct Bilirubin AST ALT Alkaline Phosphatase Total Creatine Kinase Troponin I High Sens 14.6 D B-Natriuretic Peptide Total Protein Albumin Lipase TSH Free T4 Urine Color Yellow Urine Appearance Clear Urine pH 5.5 Ur Specific [place] >= 1.030 H Urine Protein Negative Urine Glucose (UA) Negative Urine Ketones 15 Urine Blood Negative Urine Nitrite Negative Ur Leukocyte Esterase Negative Stool Occult Blood NEGATIVE COVID-19 (DIEGO) Negative COVID-19 Clin Com See Note Influenza Type A (LENCHO) Negative Influenza Type B (LENCHO) Negative Influenza A & B Note See Note 03/09/23 03/10/23 03/10/23 23:08 00:25 01:18 WBC 7.1 RBC 3.75 L D Hgb 11.5 L D Hct 35.0 L D MCV 93.3 MCH 30.7 MCHC 32.9 RDW 13.7 Plt Count 78 L MPV 11.7 Immature Gran % (Auto) 0.3 Neut % (Auto) 76.2 H Lymph % (Auto) 14.5 L Burnett % (Auto) 8.6 Eos % (Auto) 0.1 Baso % (Auto) 0.3 Lymph # (Auto) 1.0 L Burnett # (Auto) 0.6 Eos # (Auto) 0.0 Baso # (Auto) 0.0 Abs Immat Gran (auto) 0.02 Absolute Neuts (auto) 5.4 Absolute Nucleated RBC 0.000 Nucleated RBC % (auto) 0.0 Smear Tech's Comments PT INR O2 Saturation ABG pH at Pt Temp ABG pCO2 at Pt Temp ABG pO2 at Pt Temp ABG HCO3 ABG Base Excess (Actual) VBG pH 7.40 VBG pCO2 46 VBG pO2 68 VBG HCO3 29 H VBG O2 Saturation 95.0 VBG Base Excess 4.1 Sodium 146 H Potassium 4.0 Chloride 109 H Carbon Dioxide 31 H Anion Gap 10 L BUN 16 Creatinine 0.75 Estim Creat Clear Calc 121.6 Estimated GFR > 60 POC Glucose 127 H Random Glucose 98 Lactic Acid 0.7 Calcium 8.0 L D Phosphorus 3.7 Magnesium Total Bilirubin 0.7 Direct Bilirubin AST 9 ALT < 5 Alkaline Phosphatase 27 L Total Creatine Kinase 68 Troponin I High Sens B-Natriuretic Peptide Total Protein 5.6 L Albumin 3.4 L Lipase TSH 0.65 Free T4 0.83 Urine Color Urine Appearance Urine pH Ur Specific [place] Urine Protein Urine Glucose (UA) Urine Ketones Urine Blood Urine Nitrite Ur Leukocyte Esterase Stool Occult Blood COVID-19 (DIGEO) COVID-19 Clin Com Influenza Type A (LENCHO) Influenza Type B (LENCHO) Influenza A & B Note 03/10/23 03/10/23 03/10/23 04:38 04:44 08:10 WBC 6.6 RBC 4.04 L Hgb 12.3 L Hct 38.2 L MCV 94.6 MCH 30.4 MCHC 32.2 RDW 13.6 Plt Count 76 L MPV 11.7 Immature Gran % (Auto) 0.3 Neut % (Auto) 73.5 H Lymph % (Auto) 15.1 L Burnett % (Auto) 10.0 Eos % (Auto) 0.8 Baso % (Auto) 0.3 Lymph # (Auto) 1.0 L Burnett # (Auto) 0.7 Eos # (Auto) 0.1 Baso # (Auto) 0.0 Abs Immat Gran (auto) 0.02 Absolute Neuts (auto) 4.9 Absolute Nucleated RBC 0.000 Nucleated RBC % (auto) 0.0 Smear Tech's Comments VERIFIED PT INR O2 Saturation ABG pH at Pt Temp ABG pCO2 at Pt Temp ABG pO2 at Pt Temp ABG HCO3 ABG Base Excess (Actual) VBG pH 7.40 VBG pCO2 48 VBG pO2 75 VBG HCO3 30 H VBG O2 Saturation 96.0 VBG Base Excess 5.4 Sodium 148 H Potassium 3.3 Chloride 111 H Carbon Dioxide 29 Anion Gap 11 L BUN 15 Creatinine 0.87 Estim Creat Clear Calc 107.1 Estimated GFR > 60 POC Glucose Random Glucose 163 H Lactic Acid Calcium 8.5 D Phosphorus Magnesium 2.4 Total Bilirubin 0.8 Direct Bilirubin AST 10 ALT 5 Alkaline Phosphatase 29 L Total Creatine Kinase Troponin I High Sens B-Natriuretic Peptide Total Protein 6.4 L Albumin 4.1 Lipase TSH Free T4 Urine Color Urine Appearance Urine pH Ur Specific [place] Urine Protein Urine Glucose (UA) Urine Ketones Urine Blood Urine Nitrite Ur Leukocyte Esterase Stool Occult Blood COVID-19 (DIEGO) COVID-19 Clin Com Influenza Type A (LENCHO) Influenza Type B (LENCHO) Influenza A & B Note Two of the EKGs over poor quality. Repeat 3 EKG shows sinus rhythm with PACs with no obvious QT prolongation Imaging Radiologist's impression: Impressions Abdomen/Pelvis CT 03/09/23 16:13 IMPRESSION: 1. No acute intra-abdominal process seen. 2. Moderate to significant constipation without obstruction. 3. There is a patchy airspace disease/infiltrate in right lower lobe and minimal opacity/infiltrate/atelectasis in left lung base. Fleischner guidelines were followed. Chest X-Ray 03/09/23 16:15 IMPRESSION: Hypoinflated lungs with bibasilar atelectasis. Chest X-Ray 03/09/23 22:12 IMPRESSION: 1. Right basilar platelike atelectasis. 2. Right jugular central line tip in mid SVC. Chest CTA 03/09/23 22:35 IMPRESSION: No evidence of PE. No evidence aortic aneurysm or dissection. Right lower lobe consolidation/atelectasis. There is minimal left basilar atelectasis. VTE: Negative Assessment and Plan (1) Sinus bradycardia: Status: Acute Sinus bradycardia, relative in this middle-aged man presented with vomiting and possible aspiration pneumonia with hypoxic respiratory failure and hypotension probably due to SIRS. His blood pressure is not improved and his heart rate is remained stable on dopamine drip. Dopamine can be slowly tapered and discontinued. Probable bradycardia related to his ongoing metoprolol therapy although at low-dose. In the future would avoid metoprolol therapy and switch him to Norvasc if her blood pressure is elevated. His QTC is not significantly prolonged after discounting the U wave. Replace potassium to above 4. Also try to avoid QT prolonging drugs although if required can be used. Continue treat with supportive care. No other cardiac intervention including pacing required at this point time. Will sign of the case. Thank you for allowing me to partake in his care Procedures Date of Service Date of Service: 03/10/23
[2023-03-10] MEDS: vancomycin HCL 1,500 MG in 0.9 % Sodium Chloride 500 ML 333.33 MG IV (11:42)
[2023-03-10] MEDS: Melatonin 3 MG TABLET PO (19:59)
[2023-03-11] VITALS (28 sets, daily range): BP systolic 89–157; BP diastolic 48–92; PULSE 43–96; RESP 12–35; TEMP 36.9–37.3; O2SAT 90–99; BMI 33.4
[2023-03-11] MEDS: vancomycin HCL 1,500 MG in 0.9 % Sodium Chloride 500 ML 333.33 MG IV ×2 (00:08→11:20)
[2023-03-11] MEDS: DOPamine HCL/D5W 400 MG/250 ML PLAST..BAG 23.72 MG IVCONT (04:23)
[2023-03-11 05:01] LABS: Imm Gran Abs Auto 0.02 X10*3/uL (0.00-0.03); Imm Gran Pct Auto 0.4 % (0.0-0.4); Lymphocytes Absolute Auto 1.2 X10*3/uL (1.2-4.9); Monocytes Absolute Auto 0.6 X10*3/uL (0.1-1.2); PLT CLUMP 1; SCAN SMEAR FLAG 1
[2023-03-11 05:02] LABS: Basophils Percent Auto 0.4 % (0-2); Eosinophils Absolute Auto 0.2 X10*3/uL (0.0-0.4); Eosinophils Percent Auto 4.9 % (0-4); Hematocrit 41.3 % (42.0-52.0); Hemoglobin 13.4 g/dl (14.0-18.0); Lymphocytes Percent Auto 24.5 % (20-40); Mean Corpuscular HGB Conc 32.4 g/dl (31.0-36.0); Mean Corpuscular Hemoglobin 30.2 pg (27.0-33.0); Mean Corpuscular Volume 93.2 fL (80.0-98.0); Monocytes Percent Auto 11.2 % (2-11); Neutrophils Absolute Auto 2.9 x10*3/uL (2.0-8.3); Neutrophils Percent Auto 58.6 % (45-73); Red Blood Count 4.43 X10*6/uL (4.60-5.80); Red Cell Distribution Width 13.3 % (11.0-16.0)
[2023-03-11 05:03] LABS: MANUAL DIFF FLAG NO; Platelet Count 79 X10*3/uL (160-400); White Blood Count 4.9 X10*3/uL (4.8-10.8)
[2023-03-11 05:13] LABS: Valproate 65.7 mcg/mL (50.0-100.0)
[2023-03-11 05:18] LABS: Anion Gap 14 (12-20); Blood Urea Nitrogen 9 mg/dL (9-16); Calcium 8.9 mg/dL (8.4-10.2); Carbon Dioxide 32 mmol/L (22-29); Chloride 107 mmol/L (96-108); Creatinine Clr Calc Pharmacy 112.9; Estimated Glomerular Filt Rate > 60; Glucose Random 114 mg/dL (60-115); Magnesium 2.1 mg/dL (1.6-2.6); Phosphorus 2.6 mg/dL (2.7-4.5); Potassium 3.8 mmol/L (3.3-5.1); Sodium 149 mmol/L (135-145)
[2023-03-11] MEDS: Piperacillin Sodium/Tazobactam 4.5 GM in 0.9 % Sodium Chloride 100 ML IV ×3 (06:25→23:42)
[2023-03-11] MEDS: Lactulose 20 GM/30 ML SOLUTION 10 GM PO (07:56)
[2023-03-11] MEDS: Sodium,Potassium Phosphates POWD.PACK 2 PACKET PO ×2 (07:56→20:31)
[2023-03-11] MEDS: Divalproex Sodium ER 500 MG TAB.ER.24H PO ×2 (07:56→20:31)
[2023-03-11] MEDS: polyethylene glycoL 3350 17 GM POWD.PACK PO (07:56)
[2023-03-11] MEDS: Famotidine/PF 20 MG/2 ML VIAL IVPUSH (07:56)
[2023-03-11] MEDS: diazePAM 2 MG TABLET 1 MG PO ×3 (07:56→20:32)
--- NOTE | 2023-03-11 08:12 | PM.CCPN ---
Subjective Subjective Date of Service: 03/11/23 Interval History: some hypotension overnight, re-started on dopamine gtt Critical Care Time (minutes): 90 Physical Exam Vital Signs: Vital Signs: Last Vital Signs Temp 98.6 F 03/11/23 08:00 Pulse 49 L 03/11/23 08:00 Resp 19 03/11/23 08:00 BP 142/75 H 03/11/23 08:00 Pulse Ox 95 03/11/23 08:00 O2 Del Method Nasal Cannula 03/11/23 08:00 O2 Flow Rate 3 03/11/23 08:00 Oxygen Flow Rate 3 03/09/23 14:50 BMI result Body Mass Index 33.4 Const: General: cooperative, comfortable, no acute distress, well developed, alert, awake and Physically active Orientation/consciousness: patient oriented x3 HEENT: Head: Yes normal to inspection, Yes normocephalic and Yes atraumatic Eyes: General: appearance normal, both eyes and all related structures Neck: Neck: Yes normal visual inspection, Yes no meningeal signs and Yes supple Chest: Chest palpation & inspection: normal inspection of the chest Resp: Other: no appreciable rales, rhonchi, wheezing Effort & Inspection: normal respiratory effort Cardio: Rate: regular rate Rhythm: regular rhythm GI: Inspection: Yes normal to inspection, No Abdominal wall edema and No distended Palpation (GI): Soft to palpation, not firm, nontender, no guarding and not rigid Skin: General skin exam: no rashes or lesions noted Neuro: General: patient oriented x3, tone normal, moves all extremities, no meningeal signs and no focal motor deficits Extrem: Other: 1+ pitting edema to bilateral knees General: Yes normal to inspection and Yes capillary refill normal Psych: Appearance: grossly normal Objective Data Labs 03/11/23 04:47 03/11/23 04:47 Labs: Laboratory Results - last 24 hr 03/10/23 03/11/23 08:10 04:47 WBC 4.9 RBC 4.43 L Hgb 13.4 L Hct 41.3 L MCV 93.2 MCH 30.2 MCHC 32.4 RDW 13.3 Plt Count 79 L MPV 11.0 Immature Gran % (Auto) 0.4 Neut % (Auto) 58.6 Lymph % (Auto) 24.5 Waldo % (Auto) 11.2 H Eos % (Auto) 4.9 H Baso % (Auto) 0.4 Lymph # (Auto) 1.2 Waldo # (Auto) 0.6 Eos # (Auto) 0.2 Baso # (Auto) 0.0 Abs Immat Gran (auto) 0.02 Absolute Neuts (auto) 2.9 Absolute Nucleated RBC 0.000 Nucleated RBC % (auto) 0.0 Sodium 149 H Potassium 3.8 Chloride 107 Carbon Dioxide 32 H Anion Gap 14 BUN 9 Creatinine 0.79 Estim Creat Clear Calc 112.9 Estimated GFR > 60 Random Glucose 114 Calcium 8.9 Phosphorus 2.6 L Magnesium 2.4 2.1 Valproic Acid 65.7 Microbiology Microbiology Results: Microbiology 03/09/23 15:37 Blood - Venous Blood Culture - Preliminary No growth after 24 hours. 03/09/23 15:15 Blood - Venous Blood Culture - Preliminary No growth after 24 hours. Progress Note: A&P Assessment and plan (1) Sinus bradycardia: Status: Acute (2) Septic shock: Status: Acute (3) Epilepsy: Status: Acute (4) Acute respiratory failure with hypoxia: Status: Acute (5) Community acquired pneumonia: Status: Acute Plan Patient is a 58 Y M with prior neuroleptic malignant syndrome, c/b residual neurological deficits, neurogenic bladder, chronic constipation, recurrent aspiration, resides at nursing facility, initially presenting on 03/09 to ED w/ emesis, found to be hypotensive, hypoxic, and febrile, c/f septic shock, admitted ICU on vasopressors N: prior neuroleptic malignant syndrome; no acute issues CV: c/f septic shock, intermittent bradycardia, on dopamine gtt, wean as tolerated R: acute hypoxia, c/f pneumonia, on NC, wean as tolerated GI: chronic constipation, on extensive home regimen; of note, patient w/ intermittent nausea, judicious use of anti-emetics d/t prior neuroleptic malignant syndrome, prolonged QTc : neurogenic bladder; no acute issues H: no acute issues ID: septic shock, likely d/t pneumonia; empiric vancomycin, zosyn; to follow-up blood cultures E: no acute issues P: intermittent anxiety, though easily re-directable Quality Stroke Does the patient have a stroke diagnosis?: No Reason for No Anti-thrombotic by Day Two: N/A - Med Ordered VTE Prior VTE?: No VTE Risk Level:: Medical - moderate - high VTE Device Contraindication: N/A - Device Ordered VTE Drug Contraindication: N/A - Med Ordered
--- NOTE | 2023-03-11 08:29 | PC.NURSE ---
on 03/10/23, automobile service writer scanned pt's first (0900) dose of 1mg diazepam at 0830. Pt complained of nausea and asked to take medications later. Silk Folder forgot to undo the scan at that time. Medication wasted in pyxis and properly disposed of. When pt was able to take oral medications, automobile service writer rescanned med, but it populated for the 1500 dose. Similar result for the 2100 dose. At that time GILBERTO Beatty contacted this automobile service writer and described the problem. On 03/11, this automobile service writer attempted to fix the issue, but edited the wrong entry (the original 0900 dose). The following doses were edited and the 0900 dose on 03/10 was rescanned and backtimed to reflect reality.
[2023-03-11] MEDS: Pregabalin 50 MG CAPSULE PO ×3 (10:00→20:31)
[2023-03-11 10:21] LABS: Vancomycin Random 16.5 mcg/mL (15-20)
--- NOTE | 2023-03-11 10:31 | HE.PHANOTE ---
re: vanco Patients level came back at 16.5. Patient is within AUC goal. will continue current dose given indication however will get another level after 2 more doses to ensure sfaety vs efficacy. next draw 03/12 @1000 predicted AUC 560
[2023-03-11] MEDS: DOPamine HCL/D5W 400 MG/250 ML PLAST..BAG 19.76 MG IVCONT (15:24)
[2023-03-11 16:18] LABS: Triiodothyronine T3 Total 64 ng/dL (76-181)
[2023-03-11 18:19] LABS: Alanine Aminotransferase 7 U/L (0-40); Albumin Level 3.9 g/dL (3.5-5.0); Alkaline Phosphatase 36 U/L (39-117); Anion Gap 12 (12-20); Aspartate Amino Transferase 9 U/L (5-37); Bilirubin Total 0.9 mg/dL (0.0-1.0); Blood Urea Nitrogen 8 mg/dL (9-16); Calcium 9.1 mg/dL (8.4-10.2); Carbon Dioxide 36 mmol/L (22-29); Chloride 106 mmol/L (96-108); Creatinine Clr Calc Pharmacy 107.5; Estimated Glomerular Filt Rate > 60; Glucose Random 141 mg/dL (60-115); Phosphorus 2.9 mg/dL (2.7-4.5); Potassium 3.6 mmol/L (3.3-5.1); Sodium 150 mmol/L (135-145); Total Protein 6.8 g/dL (6.5-8.0)
[2023-03-11] MEDS: Melatonin 3 MG TABLET PO (20:31)
[2023-03-11] MEDS: Dextrose 5 % and 0.45 % NaCl 500 ML 100 ML IVCONT (23:41)
[2023-03-12] VITALS (31 sets, daily range): BP systolic 74–173; BP diastolic 41–106; PULSE 47–105; RESP 14–33; TEMP 36.7–37.6; O2SAT 91–96; BMI 35.3
[2023-03-12] MEDS: vancomycin HCL 1,500 MG in 0.9 % Sodium Chloride 500 ML 333.33 MG IV (00:13)
[2023-03-12] MEDS: DOPamine HCL/D5W 400 MG/250 ML PLAST..BAG 19.76 MG IVCONT ×2 (04:02→17:15)
[2023-03-12 05:33] LABS: MANUAL DIFF FLAG NO
[2023-03-12 05:37] LABS: Basophils Percent Auto 0.4 % (0-2); Eosinophils Absolute Auto 0.5 X10*3/uL (0.0-0.4); Eosinophils Percent Auto 9.9 % (0-4); Hematocrit 43.7 % (42.0-52.0); Hemoglobin 14.2 g/dl (14.0-18.0); Imm Gran Abs Auto 0.01 X10*3/uL (0.00-0.03); Imm Gran Pct Auto 0.2 % (0.0-0.4); Lymphocytes Percent Auto 21.7 % (20-40); Mean Corpuscular HGB Conc 32.5 g/dl (31.0-36.0); Mean Corpuscular Hemoglobin 30.2 pg (27.0-33.0); Mean Platelet Volume 10.3 fL (9.4-12.4); Monocytes Absolute Auto 0.5 X10*3/uL (0.1-1.2); Monocytes Percent Auto 11.4 % (2-11); Neutrophils Absolute Auto 2.7 x10*3/uL (2.0-8.3); Neutrophils Percent Auto 56.4 % (45-73); Red Cell Distribution Width 13.3 % (11.0-16.0); White Blood Count 4.8 X10*3/uL (4.8-10.8)
[2023-03-12 05:40] LABS: Platelet Count 79 X10*3/uL (160-400)
[2023-03-12 05:51] LABS: Alanine Aminotransferase 5 U/L (0-40); Albumin Level 3.5 g/dL (3.5-5.0); Alkaline Phosphatase 34 U/L (39-117); Anion Gap 13 (12-20); Aspartate Amino Transferase 9 U/L (5-37); Bilirubin Total 0.9 mg/dL (0.0-1.0); Blood Urea Nitrogen 9 mg/dL (9-16); Calcium 9.4 mg/dL (8.4-10.2); Carbon Dioxide 33 mmol/L (22-29); Chloride 108 mmol/L (96-108); Creatinine Clr Calc Pharmacy 95.9; Estimated Glomerular Filt Rate > 60; Glucose Random 92 mg/dL (60-115); Potassium 3.6 mmol/L (3.3-5.1); Sodium 150 mmol/L (135-145); Total Protein 6.7 g/dL (6.5-8.0)
[2023-03-12] MEDS: Piperacillin Sodium/Tazobactam 4.5 GM in 0.9 % Sodium Chloride 100 ML IV (06:28)
--- NOTE | 2023-03-12 07:00 | CA_ITS ---
Transthoracic Echocardiogram Patient (Last, First, Middle): Matt Iraheta, Gender: Male Date of : 1965 Age: 58 Procedure Date: 03/12/2023 Procedure Type: Transthoracic Echocardiogram Location: ICU Height: 170.18 cm Weight: 102.51 kg BSA: 2.13 m2 Heart Rate: bpm BP: 124 / 89 mmHg Assembly Inspector Helper: SB Referring MD: Caryn Seymour MD Symptoms: HF, Assess Function Study Quality: Fair, adequate with contrast ECG Rhythm: Sinus Conclusions: - The left ventricular systolic function is normal. The calculated ejection fraction is 65% by biplane method. - No obvious valvular pathology seen on this study. Findings Procedure Information Contrast agent, definity, is being given per protocol without apparent complications. Left Ventricle Normal left ventricular cavity size. There is normal left ventricular wall thickness. The left ventricular systolic function is normal. The calculated ejection fraction is 65% by biplane method. There is no evidence of regional wall motion abnormalities. Diastolic function is normal for age. There is mild septal asymmetric hypertrophy. Right Ventricle Normal right ventricular cavity size and systolic function. Atria Both atria are normal in size. Aortic Valve The aortic valve structure and function is likely normal. There is no aortic valve stenosis. There is no aortic valve regurgitation. Mitral Valve The mitral valve appears normal. There is no mitral valve regurgitation. There is no mitral valve stenosis. Pulmonic Valve The pulmonic valve is likely normal. Tricuspid Valve There is trace tricuspid valve regurgitation. There is no evidence of pulmonary hypertension. Great Vessels The asc aorta is normal in size. Venous The inferior vena cava was not well visualized. Pericardium/Pleural There is no evidence of pericardial effusion. Prior Study Comparison No prior study available for comparison. Recommendations, Care & Conclusions No obvious valvular pathology seen on this study. Measurements 2D Linear Measurements IVSd: 1.09 0.6-0.9/0.6-1.0 cm LVIDd: 5.06 3.9-5.3/4.2-5.9 cm LVIDd Index: 2.38 2.4-3.2/2.2-3.1 cm/m2 LVIDs: 2.81 2.0-3.6 cm LVPWd: 0.73 0.7-1.1 cm LA Diam: 2.90 2.7-3.8/3.0-4.0 cm LAIDs Index: 1.36 1.5-2.3 cm/m2 LV Mass: 203.80 67-162/88-224 g LV Mass Index: 95.68 43-95/49-115 g/m2 LVOT Diam: 2.40 3.0+(-)1.3 cm 2D Systolic Function EF 4C: 61.30 >55% EF 2C: 65.90 >55% EF BiP: 64.80 >55% Mitral Valve MV Pk E: 0.57 MV PK A: 0.52 MV Decel Time: 151.00 E/A: 1.10 E'Lateral: 7.29 E'Medial: 5.77 E/E' Med: 9.90 E/E' Lat: 7.90 PHT: 44.00 MVA PHT: 5.00 Decel [place]: 3.80 Aortic Valve AoV Pk [place]: 1.17 AoV Pk Grad: 5.00 LVOT LVOT Pk [place]: 0.84 LVOT Mn [place]: 0.58 LVOT VTI: 0.13 LVOT Pk Grad: 3.00 LVOT Mn Grad: 2.00 LVOT Diam: 2.40 LVOT Area: 4.52 Diastolic Function MV Pk E: 0.57 MV Pk A: 0.52 E/A: 1.10 E'Medial: 5.77 E/E' Med: 9.90 E' Laterial: 7.29 E/E' Lat: 7.90 Right Ventricle TVS' [place]: 16.30 Great Vessels Aorta Sinus of Valsalva: 3.50 2.0-3.5 cm Ao Asc: 3.20 2.1-3.4 cm Pulmonary Veins Pulm Vein S/D 1.70 Updated in Other Vendor System with Status of Final Adrian Moore MD electronically signed on 03/12/2023 8:19:42 AM with status of Final
--- NOTE | 2023-03-12 08:00 | ECG_ITS ---
Test Reason : check qtc Blood Pressure : / mmHG Vent. Rate : 098 BPM Atrial Rate : 098 BPM P-R Int : 158 ms QRS Dur : 086 ms QT Int : 366 ms P-R-T Axes : 063 -20 010 degrees QTc Int : 467 ms Normal sinus rhythm Low voltage QRS Nonspecific ST and T wave abnormality Abnormal ECG When compared with ECG of 10-MAR-2023 08:12, Nonspecific T wave abnormality, worse in Inferior leads Nonspecific T wave abnormality now evident in Lateral leads QT has lengthened Referred By: Caryn Seymour Electronically Signed By:ECHO MADRIGAL
--- NOTE | 2023-03-12 09:44 | PM.CCPN ---
Subjective Subjective Date of Service: 03/12/23 Interval History: 58-year-old gentleman with underlying history of neuroleptic malignant syndrome secondary to Abilify in 2008, chronic upper extremity contractures, chronic constipation with prior rectal prolapse, neurogenic bladder, anxiety, hypertension admitted on 03/09/2023 with vomiting and hypoxia, likely secondary to aspiration. In ER patient with bradycardia and hypotension requiring initiation dopamine. Evaluated by Cardiology service with suggestion beta-gilbert related bradycardia. Maintained of beta-gilbert for 48 hours, still with episodes of bradycardia down to 30s. Also initially on empiric antibiotics. Remains pressor dependent. No events overnight. Critical Care Time (minutes): 60 Physical Exam Vital Signs: Vital Signs: Last Vital Signs Temp 98.4 F 03/12/23 09:00 Pulse 69 03/12/23 09:00 Resp 17 03/12/23 09:00 BP 116/76 03/12/23 09:00 Pulse Ox 96 03/12/23 09:00 O2 Del Method Nasal Cannula 03/12/23 09:00 O2 Flow Rate 1 03/12/23 09:00 Oxygen Flow Rate 3 03/09/23 14:50 BMI result Body Mass Index 35.3 Const: General: no acute distress, alert and awake Eyes: Sclerae: sclerae normal EOM: EOMs intact bilaterally Neck: Neck: Yes no lymphadenopathy, Yes trachea midline and Yes supple Resp: Effort & Inspection: normal respiratory effort and no respiratory distress Auscultation: clear to auscultation bilaterally Cardio: Rate: regular rate Rhythm: regular rhythm Heart sounds: no gallops, no murmurs and no rubs GI: Palpation (GI): Soft to palpation and Other GI palpation findings present ( Nontender) Auscultation: normal bowel sounds Extrem: General: Yes no pedal edema, No clubbing and No cyanosis Objective Data Labs 03/12/23 05:10 03/12/23 05:10 Labs: Laboratory Results - last 24 hr 03/10/23 03/11/23 03/11/23 04:38 09:59 18:00 WBC RBC Hgb Hct MCV MCH MCHC RDW Plt Count MPV Immature Gran % (Auto) Neut % (Auto) Lymph % (Auto) [place] % (Auto) Eos % (Auto) Baso % (Auto) Lymph # (Auto) [place] # (Auto) Eos # (Auto) Baso # (Auto) Abs Immat Gran (auto) Absolute Neuts (auto) Absolute Nucleated RBC Nucleated RBC % (auto) Sodium 150 H Potassium 3.6 Chloride 106 Carbon Dioxide 36 H Anion Gap 12 BUN 8 L Creatinine 0.83 Estim Creat Clear Calc 107.5 Estimated GFR > 60 Random Glucose 141 H Calcium 9.1 Phosphorus 2.9 Total Bilirubin 0.9 AST 9 ALT 7 Alkaline Phosphatase 36 L Total Protein 6.8 Albumin 3.9 Total T3 64 L Random Vancomycin 16.5 03/12/23 05:10 WBC 4.8 RBC 4.70 Hgb 14.2 Hct 43.7 MCV 93.0 MCH 30.2 MCHC 32.5 RDW 13.3 Plt Count 79 L MPV 10.3 Immature Gran % (Auto) 0.2 Neut % (Auto) 56.4 Lymph % (Auto) 21.7 [place] % (Auto) 11.4 H Eos % (Auto) 9.9 H Baso % (Auto) 0.4 Lymph # (Auto) 1.0 L [place] # (Auto) 0.5 Eos # (Auto) 0.5 H Baso # (Auto) 0.0 Abs Immat Gran (auto) 0.01 Absolute Neuts (auto) 2.7 Absolute Nucleated RBC 0.000 Nucleated RBC % (auto) 0.0 Sodium 150 H Potassium 3.6 Chloride 108 Carbon Dioxide 33 H Anion Gap 13 BUN 9 Creatinine 0.93 Estim Creat Clear Calc 95.9 Estimated GFR > 60 Random Glucose 92 Calcium 9.4 Phosphorus Total Bilirubin 0.9 AST 9 ALT 5 Alkaline Phosphatase 34 L Total Protein 6.7 Albumin 3.5 Total T3 Random Vancomycin Microbiology Microbiology Results: Microbiology 03/09/23 15:37 Blood - Venous Blood Culture - Preliminary No growth after 48 hours. 03/09/23 15:15 Blood - Venous Blood Culture - Preliminary No growth after 48 hours. Progress Note: A&P Assessment and plan (1) Sinus bradycardia: Status: Acute (2) Pulmonary aspiration: Status: Acute (3) Neurogenic bladder: Status: Acute Plan Assessment: 58-year-old gentleman admitted with acute hypoxic respiratory failure likely secondary to pulmonary aspiration further complicated by intermittent bradycardia requiring dopamine support. Plan: Neuro: No acute issues. Cardiac: Intermittent bradycardia, shock. Continue to titrate off dopamine as tolerated. Cardiology service care appreciated. Pulmonary: Acute respiratory failure with hypoxia secondary to aspiration continue to titrate off supplemental oxygen as tolerated. Renal: Hypernatremia, likely secondary to volume loss with diarrhea, started on D5W. Continue to monitor electrolytes, renal indices, and urine output. Endo: No acute issues. GI: Diarrhea, stool softeners stopped. Prior history of C diff. ID: No leukocytosis, fevers, causes negative to date. Will monitor off antibiotics. Heme/Onc: No acute issues. Psych: No acute issues. Miscellaneous: No acute issues. Prophylaxis: Pneumatic compression Diet: Regular Critical care time spent: 60 minutes Quality Stroke Does the patient have a stroke diagnosis?: No Reason for No Anti-thrombotic by Day Two: N/A - Med Ordered VTE Prior VTE?: No VTE Risk Level:: Medical - moderate - high VTE Device Contraindication: N/A - Device Ordered VTE Drug Contraindication: N/A - Med Ordered
--- NOTE | 2023-03-12 09:50 | P.PNCA_ITS ---
Subjective Subjective Date of Service: 03/12/23 Interval history: Patient himself is offering no clear complaints. Stress at the bedside and discussed with her as well. Events from we can reviewed. Essentially admitted for infection/sepsis and was noted to have bradycardia. He is on dopamine drip. Beta-blockers have been held. We were asked to review the situation today. Review of Systems Review of Systems Yes all other systems are reviewed and are negative Constitutional: Reports as per HPI and Reports no additional constitutional complaints Eyes: Reports as per HPI and Denies no additional eye complaints Denies system reviewed and no additional complaints, except as documented and Reports as per HPI Cardiovascular: Reports as per HPI, Reports no additional cardiovascular complaints, Denies acrocyanosis, Denies cool extremities, Denies chest pain, Denies leg edema, Denies lightheadedness, Denies palpitations and Denies dyspnea Respiratory: Reports as per HPI, Denies no additional respiratory complaints and Denies dyspnea Gastrointestinal: Reports as per HPI and Denies no additional gastrointestinal complaints Genitourinary: Reports no additional male genitourinary complaints and Reports as per HPI Musculoskeletal: Reports no additional musculoskeletal complaints and Reports as per HPI Skin/Breast: Reports system reviewed and no additional complaints, except as docu Reports system reviewed and no additional complaints, except as documented and Reports as per HPI Psychiatric: Reports no additional psychiatric complaints and Reports as per HPI Endocrine: Reports no additional endocrine complaints, Reports as per HPI and Denies palpitations Hematologic/Lymphatic: Reports no additional hematologic/lymphatic complaints and Reports as per HPI Allergic/Immunologic: Reports no additional allergic/immunologic complaints and Reports as per HPI Physical Exam Vital Signs: Last Vital Signs Temp 98.4 F 03/12/23 09:00 Pulse 69 03/12/23 09:00 Resp 17 03/12/23 09:00 BP 116/76 03/12/23 09:00 Pulse Ox 96 03/12/23 09:00 O2 Del Method Nasal Cannula 03/12/23 09:00 O2 Flow Rate 1 03/12/23 09:00 Oxygen Flow Rate 3 03/09/23 14:50 BMI result Body Mass Index 35.3 Const General: comfortable and no acute distress Orientation/consciousness: patient oriented x3 HEENT Other: Unremarkable Head: Yes normal to inspection Neck Neck: Yes normal visual inspection Chest Chest palpation & inspection: normal inspection of the chest Resp Auscultation: clear to auscultation bilaterally Cardio Palpation: normal PMI Heart sounds: S1 normal heart sound present, S2 normal heart sound present, no gallops, no murmurs and no rubs GI Palpation (GI): Soft to palpation Back/Spine/Pelvis Other: unremarkable Skin General skin exam: no rashes or lesions noted Neuro General: patient oriented x3 Extrem General: Yes normal to inspection Psych Mental Status: mental status grossly normal Objective Labs and Meds 03/12/23 05:10 03/12/23 05:10 Lab results: Laboratory Results - last 24 hr 03/10/23 03/11/23 03/11/23 04:38 09:59 18:00 WBC RBC Hgb Hct MCV MCH MCHC RDW Plt Count MPV Immature Gran % (Auto) Neut % (Auto) Lymph % (Auto) [place] % (Auto) Eos % (Auto) Baso % (Auto) Lymph # (Auto) [place] # (Auto) Eos # (Auto) Baso # (Auto) Abs Immat Gran (auto) Absolute Neuts (auto) Absolute Nucleated RBC Nucleated RBC % (auto) Sodium 150 H Potassium 3.6 Chloride 106 Carbon Dioxide 36 H Anion Gap 12 BUN 8 L Creatinine 0.83 Estim Creat Clear Calc 107.5 Estimated GFR > 60 Random Glucose 141 H Calcium 9.1 Phosphorus 2.9 Total Bilirubin 0.9 AST 9 ALT 7 Alkaline Phosphatase 36 L Total Protein 6.8 Albumin 3.9 Total T3 64 L Random Vancomycin 16.5 03/12/23 05:10 WBC 4.8 RBC 4.70 Hgb 14.2 Hct 43.7 MCV 93.0 MCH 30.2 MCHC 32.5 RDW 13.3 Plt Count 79 L MPV 10.3 Immature Gran % (Auto) 0.2 Neut % (Auto) 56.4 Lymph % (Auto) 21.7 [place] % (Auto) 11.4 H Eos % (Auto) 9.9 H Baso % (Auto) 0.4 Lymph # (Auto) 1.0 L [place] # (Auto) 0.5 Eos # (Auto) 0.5 H Baso # (Auto) 0.0 Abs Immat Gran (auto) 0.01 Absolute Neuts (auto) 2.7 Absolute Nucleated RBC 0.000 Nucleated RBC % (auto) 0.0 Sodium 150 H Potassium 3.6 Chloride 108 Carbon Dioxide 33 H Anion Gap 13 BUN 9 Creatinine 0.93 Estim Creat Clear Calc 95.9 Estimated GFR > 60 Random Glucose 92 Calcium 9.4 Phosphorus Total Bilirubin 0.9 AST 9 ALT 5 Alkaline Phosphatase 34 L Total Protein 6.7 Albumin 3.5 Total T3 Random Vancomycin Progress Note: A&P Assessment and plan (1) Sinus bradycardia: Status: Acute (2) Severe sepsis: Status: Acute (3) Septic shock: Status: Acute Plan On telemetry, heart rate is in the 80s-90s. After stopping dopamine for a few minutes, it still stayed in that range and went up to over 100/Min. Cardiac BNP as well as high sensitivity troponins are well within normal limits. At this time, recommend holding off on the dopamine and monitoring the heart rate. Unless profound bradycardia may not need this. May get an echocardiogram for cardiac function assessment. Discussed with grain commodity manager. Time Spent With Patient Time: Total time managing care of this patient today ____ minutes. Progress Note: Quality Stroke Does the patient have a stroke diagnosis?: No Reason for No Anti-thrombotic by Day Two: N/A - Med Ordered Procedures Date of Service Date of Service: 03/12/23
[2023-03-12] MEDS: Famotidine/PF 20 MG/2 ML VIAL IVPUSH (09:54)
[2023-03-12] MEDS: Dextrose 5 % 1,000 ML 125 ML IVCONT (09:55)
[2023-03-12] MEDS: Divalproex Sodium ER 500 MG TAB.ER.24H PO ×2 (09:55→20:56)
[2023-03-12] MEDS: diazePAM 2 MG TABLET 1 MG PO ×3 (09:55→20:56)
[2023-03-12] MEDS: Pregabalin 50 MG CAPSULE PO ×3 (09:55→20:56)
[2023-03-12 10:40] LABS: Vancomycin Random 22.6 mcg/mL (15-20)
--- NOTE | 2023-03-12 17:00 | ECG_ITS ---
Test Reason : rhythm check Blood Pressure : / mmHG Vent. Rate : 046 BPM Atrial Rate : 046 BPM P-R Int : 158 ms QRS Dur : 086 ms QT Int : 438 ms P-R-T Axes : 064 -27 010 degrees QTc Int : 383 ms Sinus bradycardia with sinus arrhythmia Low voltage QRS Nonspecific T wave abnormality Abnormal ECG When compared to the previous EKG of same day, decrease in ventricular rate Referred By: Caryn Seymour Electronically Signed By:ECHO MADRIGAL
[2023-03-12] MEDS: Melatonin 3 MG TABLET PO (20:56)
[2023-03-13] VITALS (34 sets, daily range): BP systolic 74–185; BP diastolic 39–101; PULSE 32–92; RESP 10–33; TEMP 36.9–37.6; O2SAT 89–97; BMI 34.6
[2023-03-13] MEDS: ondansetron HCL 4 MG/2 ML VIAL IVPUSH (04:59)
[2023-03-13] MEDS: DOPamine HCL/D5W 400 MG/250 ML PLAST..BAG 19.76 MG IVCONT (05:04)
[2023-03-13 05:31] LABS: VBG Base Excess 13.2 mmol/L; VBG HCO3 40 mmol/L (22-26); VBG pCO2 60 mmHg; VBG pH 7.43 (7.32-7.43); VBG pO2 48 mmHg
[2023-03-13 05:43] LABS: Basophils Percent Auto 0.5 % (0-2); PLT CLUMP 1; SCAN SMEAR FLAG 1
[2023-03-13 05:45] LABS: Eosinophils Absolute Auto 0.6 X10*3/uL (0.0-0.4); Eosinophils Percent Auto 10.7 % (0-4); Hematocrit 44.6 % (42.0-52.0); Hemoglobin 14.7 g/dl (14.0-18.0); Imm Gran Abs Auto 0.02 X10*3/uL (0.00-0.03); Imm Gran Pct Auto 0.4 % (0.0-0.4); Lymphocytes Absolute Auto 1.3 X10*3/uL (1.2-4.9); Lymphocytes Percent Auto 23.6 % (20-40); MANUAL DIFF FLAG SCAN; Mean Corpuscular Hemoglobin 30.1 pg (27.0-33.0); Mean Corpuscular Volume 91.4 fL (80.0-98.0); Mean Platelet Volume 9.7 fL (9.4-12.4); Monocytes Absolute Auto 0.5 X10*3/uL (0.1-1.2); Monocytes Percent Auto 8.5 % (2-11); Neutrophils Absolute Auto 3.1 x10*3/uL (2.0-8.3); Neutrophils Percent Auto 56.3 % (45-73); Red Blood Count 4.88 X10*6/uL (4.60-5.80); Red Cell Distribution Width 13.4 % (11.0-16.0)
[2023-03-13 05:48] LABS: Platelet Count 78 X10*3/uL (160-400); White Blood Count 5.5 X10*3/uL (4.8-10.8)
[2023-03-13 05:54] LABS: Albumin Level 3.8 g/dL (3.5-5.0); Anion Gap 14 (12-20); Blood Urea Nitrogen 13 mg/dL (9-16); Calcium 9.5 mg/dL (8.4-10.2); Carbon Dioxide 34 mmol/L (22-29); Chloride 104 mmol/L (96-108); Creatinine Clr Calc Pharmacy 87.8; Estimated Glomerular Filt Rate > 60; Glucose Random 113 mg/dL (60-115); Magnesium 2.3 mg/dL (1.6-2.6); Phosphorus 3.2 mg/dL (2.7-4.5); Potassium 3.6 mmol/L (3.3-5.1); Sodium 148 mmol/L (135-145)
[2023-03-13 06:08] LABS: SLIDE REVIEW VERIFIED
[2023-03-13 06:30] LABS: Venous Blood Gas Refer to POC result
--- NOTE | 2023-03-13 08:00 | ECG_ITS ---
Test Reason : check qtc Blood Pressure : / mmHG Vent. Rate : 050 BPM Atrial Rate : 050 BPM P-R Int : 152 ms QRS Dur : 086 ms QT Int : 362 ms P-R-T Axes : 033 -16 -12 degrees QTc Int : 330 ms Sinus bradycardia Low voltage QRS Nonspecific T wave abnormality Abnormal ECG When compared with ECG of 12-MAR-2023 17:27, No significant changes seen Referred By: Caryn Seymour Electronically Signed By:ECHO MADRIGAL
[2023-03-13] MEDS: Divalproex Sodium ER 500 MG TAB.ER.24H PO ×2 (09:22→20:44)
[2023-03-13] MEDS: Pregabalin 50 MG CAPSULE PO ×3 (09:22→20:44)
[2023-03-13] MEDS: diazePAM 2 MG TABLET 1 MG PO ×3 (09:23→20:44)
[2023-03-13] MEDS: Phenylephrine HCL 20 MG in 0.9 % Sodium Chloride 250 ML 37.88 MG IVCONT (09:31)
--- NOTE | 2023-03-13 09:37 | MHC.CM.PN ---
Pt continues care in ICU: dopamine gtt to be d/c'd today for assessment of bradycardia. Pt is a LTC resident of [facility] and will return via BLS when medically stable. Clinical updates remitted to facility. CM to follow for d/c needs.
--- NOTE | 2023-03-13 09:44 | P.PNCA_ITS ---
Subjective Subjective Date of Service: 03/13/23 Interval history: According to patient, no specific cardiac symptoms. Review of Systems Review of Systems Yes all other systems are reviewed and are negative Constitutional: Reports as per HPI and Reports no additional constitutional complaints Eyes: Reports as per HPI and Denies no additional eye complaints Denies system reviewed and no additional complaints, except as documented and Reports as per HPI Cardiovascular: Reports as per HPI, Reports no additional cardiovascular complaints, Denies acrocyanosis, Denies cool extremities, Denies chest pain, Denies leg edema, Denies lightheadedness, Denies palpitations and Denies dyspnea Respiratory: Reports as per HPI, Denies no additional respiratory complaints and Denies dyspnea Gastrointestinal: Reports as per HPI and Denies no additional gastrointestinal complaints Genitourinary: Reports no additional male genitourinary complaints and Reports as per HPI Musculoskeletal: Reports no additional musculoskeletal complaints and Reports as per HPI Skin/Breast: Reports system reviewed and no additional complaints, except as docu Reports system reviewed and no additional complaints, except as documented and Reports as per HPI Psychiatric: Reports no additional psychiatric complaints and Reports as per HPI Endocrine: Reports no additional endocrine complaints, Reports as per HPI and Denies palpitations Hematologic/Lymphatic: Reports no additional hematologic/lymphatic complaints and Reports as per HPI Allergic/Immunologic: Reports no additional allergic/immunologic complaints and Reports as per HPI Physical Exam Vital Signs: Last Vital Signs Temp 98.6 F 03/13/23 09:00 Pulse 50 03/13/23 09:31 Resp 28 H 03/13/23 09:00 BP 91/51 L 03/13/23 09:31 Pulse Ox 91 L 03/13/23 09:00 O2 Del Method Room Air 03/13/23 09:00 O2 Flow Rate 1 03/13/23 07:00 Oxygen Flow Rate 3 03/09/23 14:50 BMI result Body Mass Index 34.6 Const General: comfortable and no acute distress Orientation/consciousness: patient oriented x3 HEENT Other: Unremarkable Head: Yes normal to inspection Neck Neck: Yes normal visual inspection Chest Chest palpation & inspection: normal inspection of the chest Resp Auscultation: crackles Cardio Palpation: normal PMI Heart sounds: S1 normal heart sound present, S2 normal heart sound present, no gallops, no murmurs and no rubs GI Palpation (GI): Soft to palpation Back/Spine/Pelvis Other: unremarkable Skin General skin exam: no rashes or lesions noted Neuro General: patient oriented x3 Extrem General: Yes normal to inspection Psych Mental Status: mental status grossly normal Objective Labs and Meds 03/13/23 05:16 03/13/23 05:16 Lab results: Laboratory Results - last 24 hr 03/12/23 03/13/23 03/13/23 09:59 05:16 05:16 WBC Cancelled 5.5 RBC Cancelled Hgb Hct MCV MCH MCHC RDW Plt Count MPV Immature Gran % (Auto) Neut % (Auto) Lymph % (Auto) Caroline % (Auto) Eos % (Auto) Baso % (Auto) Lymph # (Auto) Caroline # (Auto) Eos # (Auto) Baso # (Auto) Abs Immat Gran (auto) Absolute Neuts (auto) Absolute Nucleated RBC Nucleated RBC % (auto) Smear Tech's Comments VBG pH VBG pCO2 VBG pO2 VBG HCO3 VBG O2 Saturation VBG Base Excess Sodium Potassium Chloride Carbon Dioxide Anion Gap BUN Creatinine Estim Creat Clear Calc Estimated GFR Random Glucose Calcium Phosphorus Magnesium Albumin Random Vancomycin 22.6 H 03/13/23 03/13/23 03/13/23 05:16 05:16 05:16 WBC RBC 4.88 Hgb Cancelled 14.7 Hct Cancelled 44.6 MCV Cancelled MCH MCHC RDW Plt Count MPV Immature Gran % (Auto) Neut % (Auto) Lymph % (Auto) Caroline % (Auto) Eos % (Auto) Baso % (Auto) Lymph # (Auto) Caroline # (Auto) Eos # (Auto) Baso # (Auto) Abs Immat Gran (auto) Absolute Neuts (auto) Absolute Nucleated RBC Nucleated RBC % (auto) Smear Tech's Comments VBG pH VBG pCO2 VBG pO2 VBG HCO3 VBG O2 Saturation VBG Base Excess Sodium Potassium Chloride Carbon Dioxide Anion Gap BUN Creatinine Estim Creat Clear Calc Estimated GFR Random Glucose Calcium Phosphorus Magnesium Albumin Random Vancomycin 03/13/23 03/13/23 03/13/23 05:16 05:16 05:16 WBC RBC Hgb Hct MCV 91.4 MCH Cancelled 30.1 MCHC Cancelled 33.0 RDW Cancelled Plt Count MPV Immature Gran % (Auto) Neut % (Auto) Lymph % (Auto) Caroline % (Auto) Eos % (Auto) Baso % (Auto) Lymph # (Auto) Caroline # (Auto) Eos # (Auto) Baso # (Auto) Abs Immat Gran (auto) Absolute Neuts (auto) Absolute Nucleated RBC Nucleated RBC % (auto) Smear Tech's Comments VBG pH VBG pCO2 VBG pO2 VBG HCO3 VBG O2 Saturation VBG Base Excess Sodium Potassium Chloride Carbon Dioxide Anion Gap BUN Creatinine Estim Creat Clear Calc Estimated GFR Random Glucose Calcium Phosphorus Magnesium Albumin Random Vancomycin 03/13/23 03/13/23 03/13/23 05:16 05:16 05:16 WBC RBC Hgb Hct MCV MCH MCHC RDW 13.4 Plt Count Cancelled 78 L MPV Cancelled 9.7 Immature Gran % (Auto) Cancelled Neut % (Auto) Lymph % (Auto) Caroline % (Auto) Eos % (Auto) Baso % (Auto) Lymph # (Auto) Caroline # (Auto) Eos # (Auto) Baso # (Auto) Abs Immat Gran (auto) Absolute Neuts (auto) Absolute Nucleated RBC Nucleated RBC % (auto) Smear Tech's Comments VBG pH VBG pCO2 VBG pO2 VBG HCO3 VBG O2 Saturation VBG Base Excess Sodium Potassium Chloride Carbon Dioxide Anion Gap BUN Creatinine Estim Creat Clear Calc Estimated GFR Random Glucose Calcium Phosphorus Magnesium Albumin Random Vancomycin 03/13/23 03/13/23 03/13/23 05:16 05:16 05:16 WBC RBC Hgb Hct MCV MCH MCHC RDW Plt Count MPV Immature Gran % (Auto) 0.4 Neut % (Auto) Cancelled 56.3 Lymph % (Auto) Cancelled 23.6 Caroline % (Auto) Cancelled Eos % (Auto) Baso % (Auto) Lymph # (Auto) Caroline # (Auto) Eos # (Auto) Baso # (Auto) Abs Immat Gran (auto) Absolute Neuts (auto) Absolute Nucleated RBC Nucleated RBC % (auto) Smear Tech's Comments VBG pH VBG pCO2 VBG pO2 VBG HCO3 VBG O2 Saturation VBG Base Excess Sodium Potassium Chloride Carbon Dioxide Anion Gap BUN Creatinine Estim Creat Clear Calc Estimated GFR Random Glucose Calcium Phosphorus Magnesium Albumin Random Vancomycin 03/13/23 03/13/23 03/13/23 05:16 05:16 05:16 WBC RBC Hgb Hct MCV MCH MCHC RDW Plt Count MPV Immature Gran % (Auto) Neut % (Auto) Lymph % (Auto) Caroline % (Auto) 8.5 Eos % (Auto) Cancelled 10.7 H Baso % (Auto) Cancelled 0.5 Lymph # (Auto) Cancelled Caroline # (Auto) Eos # (Auto) Baso # (Auto) Abs Immat Gran (auto) Absolute Neuts (auto) Absolute Nucleated RBC Nucleated RBC % (auto) Smear Tech's Comments VBG pH VBG pCO2 VBG pO2 VBG HCO3 VBG O2 Saturation VBG Base Excess Sodium Potassium Chloride Carbon Dioxide Anion Gap BUN Creatinine Estim Creat Clear Calc Estimated GFR Random Glucose Calcium Phosphorus Magnesium Albumin Random Vancomycin 03/13/23 03/13/23 03/13/23 05:16 05:16 05:16 WBC RBC Hgb Hct MCV MCH MCHC RDW Plt Count MPV Immature Gran % (Auto) Neut % (Auto) Lymph % (Auto) Caroline % (Auto) Eos % (Auto) Baso % (Auto) Lymph # (Auto) 1.3 Caroline # (Auto) Cancelled 0.5 Eos # (Auto) Cancelled 0.6 H Baso # (Auto) Cancelled Abs Immat Gran (auto) Absolute Neuts (auto) Absolute Nucleated RBC Nucleated RBC % (auto) Smear Tech's Comments VBG pH VBG pCO2 VBG pO2 VBG HCO3 VBG O2 Saturation VBG Base Excess Sodium Potassium Chloride Carbon Dioxide Anion Gap BUN Creatinine Estim Creat Clear Calc Estimated GFR Random Glucose Calcium Phosphorus Magnesium Albumin Random Vancomycin 03/13/23 03/13/23 03/13/23 05:16 05:16 05:16 WBC RBC Hgb Hct MCV MCH MCHC RDW Plt Count MPV Immature Gran % (Auto) Neut % (Auto) Lymph % (Auto) Caroline % (Auto) Eos % (Auto) Baso % (Auto) Lymph # (Auto) Caroline # (Auto) Eos # (Auto) Baso # (Auto) 0.0 Abs Immat Gran (auto) Cancelled 0.02 Absolute Neuts (auto) Cancelled 3.1 Absolute Nucleated RBC Cancelled Nucleated RBC % (auto) Smear Tech's Comments VBG pH VBG pCO2 VBG pO2 VBG HCO3 VBG O2 Saturation VBG Base Excess Sodium Potassium Chloride Carbon Dioxide Anion Gap BUN Creatinine Estim Creat Clear Calc Estimated GFR Random Glucose Calcium Phosphorus Magnesium Albumin Random Vancomycin 03/13/23 03/13/23 03/13/23 05:16 05:16 05:25 WBC RBC Hgb Hct MCV MCH MCHC RDW Plt Count MPV Immature Gran % (Auto) Neut % (Auto) Lymph % (Auto) Caroline % (Auto) Eos % (Auto) Baso % (Auto) Lymph # (Auto) Caroline # (Auto) Eos # (Auto) Baso # (Auto) Abs Immat Gran (auto) Absolute Neuts (auto) Absolute Nucleated RBC 0.000 Nucleated RBC % (auto) Cancelled 0.0 Smear Tech's Comments VERIFIED VBG pH 7.43 VBG pCO2 60 VBG pO2 48 VBG HCO3 40 H VBG O2 Saturation 82.0 VBG Base Excess 13.2 Sodium 148 H Potassium 3.6 Chloride 104 Carbon Dioxide 34 H Anion Gap 14 BUN 13 Creatinine 0.95 Estim Creat Clear Calc 87.8 Estimated GFR > 60 Random Glucose 113 Calcium 9.5 Phosphorus 3.2 Magnesium 2.3 Albumin 3.8 Random Vancomycin Progress Note: A&P Assessment and plan (1) Sinus bradycardia: Status: Acute (2) Severe sepsis: Status: Acute (3) Septic shock: Status: Acute Plan Cardiac BNP as well as high sensitivity troponins are well within normal limits. Echocardiogram with no significant cardiac dysfunction. Still there is a concern for bradycardia. He was switched over to Kit- Synephrine but the heart rate dropped into the 30s. Then he is back on dopamine. Will discuss with EP about pacemaker. Discussed with sister as well and she would like to be conservative as much possible. Will follow-up with you. Discussed with Dr. Love. Time Spent With Patient Time: Total time managing care of this patient today ____ minutes. Progress Note: Quality Stroke Does the patient have a stroke diagnosis?: No Reason for No Anti-thrombotic by Day Two: N/A - Med Ordered Procedures Date of Service Date of Service: 03/13/23
[2023-03-13] MEDS: DOPamine HCL/D5W 400 MG/250 ML PLAST..BAG 18.79 MG IVCONT (09:50)
--- NOTE | 2023-03-13 11:18 | P.PNCC_ITS ---
Subjective Subjective Date of Service: 03/13/23 Interval History: 58-year-old gentleman with underlying history of neuroleptic malignant syndrome secondary to Abilify in 2008, chronic upper extremity contractures, chronic constipation with prior rectal prolapse, neurogenic bladder, anxiety, hypertension admitted on 03/09/2023 with vomiting and hypoxia, likely secondary to aspiration. In ER patient with bradycardia and hypotension requiring initiation dopamine. Evaluated by Cardiology service with suggestion beta-gilbert related bradycardia. Maintained of beta-gilbert for 48 hours, still with episodes of bradycardia down to 30s. Also initially on empiric antibiotics, now monitored off. Remains chronotropic support dependent. No events overnight. Critical Care Time (minutes): 45 Physical Exam 2 Vital Signs: Vital Signs: Last Vital Signs Temp 99.0 F 03/13/23 11:00 Pulse 86 03/13/23 11:00 Resp 18 03/13/23 11:00 BP 99/52 L 03/13/23 11:00 Pulse Ox 94 03/13/23 11:00 O2 Del Method Nasal Cannula 03/13/23 11:00 O2 Flow Rate 2 03/13/23 11:00 Oxygen Flow Rate 3 03/09/23 14:50 BMI result Body Mass Index 34.6 Const: General: no acute distress, alert and awake Eyes: Sclerae: sclerae normal EOM: EOMs intact bilaterally Neck: Neck: Yes no lymphadenopathy, Yes trachea midline and Yes supple Resp: Effort & Inspection: normal respiratory effort and no respiratory distress Auscultation: clear to auscultation bilaterally Cardio: Rate: regular rate Rhythm: regular rhythm Heart sounds: no gallops, no murmurs and no rubs GI: Palpation (GI): Soft to palpation and Other GI palpation findings present ( Nontender) Auscultation: normal bowel sounds Extrem: General: Yes no pedal edema, No clubbing and No cyanosis Objective Data Labs 03/13/23 05:16 03/13/23 05:16 Labs: Laboratory Results - last 24 hr 03/13/23 03/13/23 03/13/23 05:16 05:16 05:16 WBC Cancelled 5.5 RBC Cancelled 4.88 Hgb Cancelled Hct MCV MCH MCHC RDW Plt Count MPV Immature Gran % (Auto) Neut % (Auto) Lymph % (Auto) Wharton % (Auto) Eos % (Auto) Baso % (Auto) Lymph # (Auto) [place]arton # (Auto) Eos # (Auto) Baso # (Auto) Abs Immat Gran (auto) Absolute Neuts (auto) Absolute Nucleated RBC Nucleated RBC % (auto) Smear Tech's Comments VBG pH VBG pCO2 VBG pO2 VBG HCO3 VBG O2 Saturation VBG Base Excess Sodium Potassium Chloride Carbon Dioxide Anion Gap BUN Creatinine Estim Creat Clear Calc Estimated GFR Random Glucose Calcium Phosphorus Magnesium Albumin 03/13/23 03/13/23 03/13/23 05:16 05:16 05:16 WBC RBC Hgb 14.7 Hct Cancelled 44.6 MCV Cancelled 91.4 MCH Cancelled MCHC RDW Plt Count MPV Immature Gran % (Auto) Neut % (Auto) Lymph % (Auto) [place]arton % (Auto) Eos % (Auto) Baso % (Auto) Lymph # (Auto) [place]arton # (Auto) Eos # (Auto) Baso # (Auto) Abs Immat Gran (auto) Absolute Neuts (auto) Absolute Nucleated RBC Nucleated RBC % (auto) Smear Tech's Comments VBG pH VBG pCO2 VBG pO2 VBG HCO3 VBG O2 Saturation VBG Base Excess Sodium Potassium Chloride Carbon Dioxide Anion Gap BUN Creatinine Estim Creat Clear Calc Estimated GFR Random Glucose Calcium Phosphorus Magnesium Albumin 03/13/23 03/13/23 03/13/23 05:16 05:16 05:16 WBC RBC Hgb Hct MCV MCH 30.1 MCHC Cancelled 33.0 RDW Cancelled 13.4 Plt Count Cancelled MPV Immature Gran % (Auto) Neut % (Auto) Lymph % (Auto) [place]arton % (Auto) Eos % (Auto) Baso % (Auto) Lymph # (Auto) [place]arton # (Auto) Eos # (Auto) Baso # (Auto) Abs Immat Gran (auto) Absolute Neuts (auto) Absolute Nucleated RBC Nucleated RBC % (auto) Smear Tech's Comments VBG pH VBG pCO2 VBG pO2 VBG HCO3 VBG O2 Saturation VBG Base Excess Sodium Potassium Chloride Carbon Dioxide Anion Gap BUN Creatinine Estim Creat Clear Calc Estimated GFR Random Glucose Calcium Phosphorus Magnesium Albumin 03/13/23 03/13/23 03/13/23 05:16 05:16 05:16 WBC RBC Hgb Hct MCV MCH MCHC RDW Plt Count 78 L MPV Cancelled 9.7 Immature Gran % (Auto) Cancelled 0.4 Neut % (Auto) Cancelled Lymph % (Auto) Wharton % (Auto) Eos % (Auto) Baso % (Auto) Lymph # (Auto) [place]arton # (Auto) Eos # (Auto) Baso # (Auto) Abs Immat Gran (auto) Absolute Neuts (auto) Absolute Nucleated RBC Nucleated RBC % (auto) Smear Tech's Comments VBG pH VBG pCO2 VBG pO2 VBG HCO3 VBG O2 Saturation VBG Base Excess Sodium Potassium Chloride Carbon Dioxide Anion Gap BUN Creatinine Estim Creat Clear Calc Estimated GFR Random Glucose Calcium Phosphorus Magnesium Albumin 03/13/23 03/13/23 03/13/23 05:16 05:16 05:16 WBC RBC Hgb Hct MCV MCH MCHC RDW Plt Count MPV Immature Gran % (Auto) Neut % (Auto) 56.3 Lymph % (Auto) Cancelled 23.6 Wharton % (Auto) Cancelled 8.5 Eos % (Auto) Cancelled Baso % (Auto) Lymph # (Auto) [place]arton # (Auto) Eos # (Auto) Baso # (Auto) Abs Immat Gran (auto) Absolute Neuts (auto) Absolute Nucleated RBC Nucleated RBC % (auto) Smear Tech's Comments VBG pH VBG pCO2 VBG pO2 VBG HCO3 VBG O2 Saturation VBG Base Excess Sodium Potassium Chloride Carbon Dioxide Anion Gap BUN Creatinine Estim Creat Clear Calc Estimated GFR Random Glucose Calcium Phosphorus Magnesium Albumin 03/13/23 03/13/23 03/13/23 05:16 05:16 05:16 WBC RBC Hgb Hct MCV MCH MCHC RDW Plt Count MPV Immature Gran % (Auto) Neut % (Auto) Lymph % (Auto) [place]arton % (Auto) Eos % (Auto) 10.7 H Baso % (Auto) Cancelled 0.5 Lymph # (Auto) Cancelled 1.3 Wharton # (Auto) Cancelled Eos # (Auto) Baso # (Auto) Abs Immat Gran (auto) Absolute Neuts (auto) Absolute Nucleated RBC Nucleated RBC % (auto) Smear Tech's Comments VBG pH VBG pCO2 VBG pO2 VBG HCO3 VBG O2 Saturation VBG Base Excess Sodium Potassium Chloride Carbon Dioxide Anion Gap BUN Creatinine Estim Creat Clear Calc Estimated GFR Random Glucose Calcium Phosphorus Magnesium Albumin 03/13/23 03/13/23 03/13/23 05:16 05:16 05:16 WBC RBC Hgb Hct MCV MCH MCHC RDW Plt Count MPV Immature Gran % (Auto) Neut % (Auto) Lymph % (Auto) [place]arton % (Auto) Eos % (Auto) Baso % (Auto) Lymph # (Auto) [place]arton # (Auto) 0.5 Eos # (Auto) Cancelled 0.6 H Baso # (Auto) Cancelled 0.0 Abs Immat Gran (auto) Cancelled Absolute Neuts (auto) Absolute Nucleated RBC Nucleated RBC % (auto) Smear Tech's Comments VBG pH VBG pCO2 VBG pO2 VBG HCO3 VBG O2 Saturation VBG Base Excess Sodium Potassium Chloride Carbon Dioxide Anion Gap BUN Creatinine Estim Creat Clear Calc Estimated GFR Random Glucose Calcium Phosphorus Magnesium Albumin 03/13/23 03/13/23 03/13/23 05:16 05:16 05:16 WBC RBC Hgb Hct MCV MCH MCHC RDW Plt Count MPV Immature Gran % (Auto) Neut % (Auto) Lymph % (Auto) [place]arton % (Auto) Eos % (Auto) Baso % (Auto) Lymph # (Auto) [place]arton # (Auto) Eos # (Auto) Baso # (Auto) Abs Immat Gran (auto) 0.02 Absolute Neuts (auto) Cancelled 3.1 Absolute Nucleated RBC Cancelled 0.000 Nucleated RBC % (auto) Cancelled Smear Tech's Comments VBG pH VBG pCO2 VBG pO2 VBG HCO3 VBG O2 Saturation VBG Base Excess Sodium Potassium Chloride Carbon Dioxide Anion Gap BUN Creatinine Estim Creat Clear Calc Estimated GFR Random Glucose Calcium Phosphorus Magnesium Albumin 03/13/23 03/13/23 05:16 05:25 WBC RBC Hgb Hct MCV MCH MCHC RDW Plt Count MPV Immature Gran % (Auto) Neut % (Auto) Lymph % (Auto) [place]arton % (Auto) Eos % (Auto) Baso % (Auto) Lymph # (Auto) [place]arton # (Auto) Eos # (Auto) Baso # (Auto) Abs Immat Gran (auto) Absolute Neuts (auto) Absolute Nucleated RBC Nucleated RBC % (auto) 0.0 Smear Tech's Comments VERIFIED VBG pH 7.43 VBG pCO2 60 VBG pO2 48 VBG HCO3 40 H VBG O2 Saturation 82.0 VBG Base Excess 13.2 Sodium 148 H Potassium 3.6 Chloride 104 Carbon Dioxide 34 H Anion Gap 14 BUN 13 Creatinine 0.95 Estim Creat Clear Calc 87.8 Estimated GFR > 60 Random Glucose 113 Calcium 9.5 Phosphorus 3.2 Magnesium 2.3 Albumin 3.8 Microbiology Microbiology Results: Microbiology 03/09/23 15:37 Blood - Venous Blood Culture - Preliminary No growth after 48 hours. 03/09/23 15:15 Blood - Venous Blood Culture - Preliminary No growth after 48 hours. Progress Note: A&P Assessment and plan (1) Sinus bradycardia: Status: Acute (2) Neurogenic bladder: Status: Acute (3) Generalized anxiety disorder: Status: Acute (4) Epilepsy: Status: Acute Plan Assessment: 58-year-old gentleman admitted with acute hypoxic respiratory failure likely secondary to pulmonary aspiration further complicated by intermittent bradycardia requiring dopamine support. Plan: Neuro: No acute issues. Cardiac: Intermittent bradycardia, shock. Remains chronotropic support dependent. Cardiology service care appreciated. Will likely require pacemaker. Pulmonary: Acute respiratory failure with hypoxia secondary to aspiration continue to titrate off supplemental oxygen as tolerated. Renal: Hypernatremia, likely secondary to volume loss with diarrhea, improved. Continue to monitor electrolytes, renal indices, and urine output. Endo: No acute issues. GI: Diarrhea, stool softeners stopped. Prior history of C diff. ID: No leukocytosis, fevers, causes negative to date. Continue to monitor off antibiotics. Heme/Onc: No acute issues. Psych: No acute issues. Miscellaneous: No acute issues. Prophylaxis: Pneumatic compression Diet: NPO for possible procedure Critical care time spent: 45 minutes Quality Stroke Does the patient have a stroke diagnosis?: No Reason for No Anti-thrombotic by Day Two: N/A - Med Ordered VTE Prior VTE?: No VTE Risk Level:: Medical - moderate - high VTE Device Contraindication: N/A - Device Ordered VTE Drug Contraindication: N/A - Med Ordered
--- NOTE | 2023-03-13 17:18 | PM.CNCAR ---
History of Present Illness History of Present Illness Date of Service: 03/13/23 Chief complaint: sepsis CAP Narrative: Consult for bradycardia 58 year old male with past medical history of neuroleptic malignant syndrome secondary to Abilify in 2008, chronic upper extremity contractures, chronic constipation with prior rectal prolapse, neurogenic bladder, anxiety, hypertension admitted on 03/09/2023 with vomiting and hypoxia, likely secondary to aspiration. In ER patient with bradycardia and hypotension requiring initiation dopamine. Evaluated by Cardiology service with suggestion beta-gilbert related bradycardia. On sunday patient had bradycardia in 40-50s without intervention. Today patient was on dopamine drip which was switched to phenylephrine and patient developed bradycardia and dopamine was restarted. Review of Systems Review of Systems: All other review of systems are negative except mentioned in HPI PMFSH Past Medical History Medical History Constipation Resides in snf facility History of GI bleed Seizure disorder Urinary incontinence Osteoarthritis Rectal prolapse Cognitive impairment Hx of deep venous thrombosis Thrombocytopenia Bilateral cataracts Personal history of COVID-19 Diverticular disease Flexion contractures OCD (obsessive compulsive disorder) History of hemodialysis Depression Neuroleptic malignant syndrome Epilepsy Deformity of left hand Generalized anxiety disorder Major depressive disorder Mild cognitive impairment Hypertension Family History Family History Sister Breast CA, Onset Age: 51 Ovarian ca, Onset Age: 55 Father Prostate CA, Onset Age: 70 Mother Colorectal cancer, Onset Age: 39 Kidney carcinoma, Onset Age: 67 Maternal Grandmother Colorectal cancer, Onset Age: 70 Maternal Aunt Colorectal cancer Surgical History Surgical History History of incisional hernia repair (03/15/22) History of repair of rectocele Hx of appendectomy Hx of colonoscopy Social History Social History Household Members: None Household Members Other:: lives at [facility] Housing[phone] Are you a primary wound care coordinator to a significant other at home: No Do you presently have visiting nurse or other home services: No ([facility] Resident) Unable to assess alcohol history related to: Unable to respond Alcohol intake: never Comment: [facility] Patient Tobacco Use Status: Never used Tobacco Smoked in Last 30 Days: No Second Hand Smoke Exposure: No Use of substances other than those prescribed or required for medical reasons: No Currently Displaying Signs/Symptoms of Drug Intoxication Withdrawal: No Have you been hit, kicked, punched, or otherwise hurt by someone within the past year? If so, by whom?: No Do you feel safe in your current relationship?: No Current Relationship Is there a partner from a previous relationship who is making you feel unsafe now?: No Are you made to feel afraid or neglected: No Advance Directives: Yes Advance Directives on File: Yes Advance Directives Date on File: 11/21/19 Do you have thoughts of harming others: None Do you have a plan to hurt others: No Plan Recently lost weight without trying: No Nutrition Risks: No Nutritional Risk Poor oral hygiene: No service: No Current occupational status: disabled Meds Allergies Allergy/AdvReac Type Severity Reaction Status Date / Time aripiprazole [From ABILIFY] Allergy Severe Involuntary Verified 08/29/22 15:15 Spasms droperidol [From INAPSINE] Allergy Severe Involuntary Verified 08/29/22 15:15 Spasms haloperidol [From HALDOL] Allergy Severe Involuntary Verified 08/29/22 15:15 Spasms prochlorperazine Allergy Severe Involuntary Verified 08/29/22 15:15 [From COMPAZINE] Spasms promethazine [From PHENERGAN] Allergy Severe Involuntary Verified 08/29/22 15:15 Spasms sulfamethoxazole Allergy Severe Anaphylaxis Verified 08/29/22 15:15 [From BACTRIM] trimethoprim [From BACTRIM] Allergy Severe Anaphylaxis Verified 08/29/22 15:15 Active Medications: Current Medications Diazepam (Diazepam 2 Mg Tablet) 1 mg PO TID [facility] Last Admin: 03/13/23 15:22 Dose: 1 mg Divalproex Sodium (Divalproex Sodium Er 500 Mg Tab.Er.24h) 500 mg PO BID [facility] Last Admin: 03/13/23 09:22 Dose: 500 mg Dopamine HCl/Dextrose (Dopamine Hcl/D5w) 400 mg in 250 mls @ 0 mls/hr IVCONT .Q0M [facility]; Protocol Last Titration: 03/13/23 16:05 Dose: 0 mcg/kg/min, 0 mls/hr Melatonin (Melatonin 3 Mg Tablet) 3 mg PO BEDTIME [facility] Last Admin: 03/12/23 20:56 Dose: 3 mg Ondansetron HCl (Ondansetron Hcl 4 Mg/2 Ml Vial) 4 mg IVPUSH Q8H PRN PRN Reason: Nausea and Vomiting Last Admin: 03/13/23 04:59 Dose: 4 mg Pregabalin (Pregabalin 50 Mg Capsule) 50 mg PO TID [facility] Last Admin: 03/13/23 15:22 Dose: 50 mg Sodium Biphosphate/Sodium Phosphate (Sodium Phosphate,Robertson-Dibasic 133 Ml Enema) 133 ml NC ONCE PRN PRN Reason: Constipation Home Medications Medication Instructions Recorded Confirmed Last Taken Type diazepam 2 mg tablet 2 mg PO TID 11/17/19 03/09/23 03/15/22 History melatonin 1 mg tablet 1 mg PO BEDTIME 11/17/19 03/09/23 11/16/19 History acetaminophen 500 mg tablet 500 mg PO Q6H PRN FEVER/MILD PAIN 02/13/20 03/09/23 Unknown History bisacodyl 10 mg rectal suppository 10 mg NC Q24H PRN Constipation 02/13/20 03/09/23 Unknown History cholecalciferol (vitamin D3) 25 50 mcg PO DAILY 02/13/20 03/09/23 Unknown History mcg (1,000 unit) tablet ibuprofen 800 mg tablet 800 mg PO Q8H PRN FEVER/PAIN 02/13/20 03/09/23 Unknown History pregabalin 100 mg capsule 100 mg PO TID 02/13/20 03/09/23 03/15/22 History sennosides 8.6 mg-docusate sodium 1 tab-cap PO DAILY 02/13/20 03/09/23 Unknown History 50 mg capsule (Senna Plus) sennosides 8.6 mg-docusate sodium 1 tab-cap PO Q24H PRN Constipation 02/13/20 03/09/23 Unknown History 50 mg capsule (Senna Plus) lactulose 10 gram/15 mL (15 mL) 30 ml PO DAILY 03/09/22 03/09/23 Unknown History oral solution polyethylene glycol 3350 17 17 g PO BID 03/09/22 03/09/23 Unknown History gram/dose oral powder (Miralax) divalproex 500 mg tablet,extended 500 mg PO BID 04/20/22 03/09/23 Unknown History release 24 hr (Depakote ER) metoprolol succinate 25 mg 25 mg PO BID 04/23/22 03/09/23 Unknown History tablet,extended release 24 hr sodium phosphates 19 gram-7 118 ml NC DAILY PRN Constipation 04/23/22 03/09/23 Unknown History gram/118 mL enema (Fleet Enema) aluminum-mag hydroxide-simethicone 30 ml PO Q4H PRN Heartburn 05/11/22 03/09/23 Unknown History 200 mg-200 mg-20 mg/5 mL oral susp dextromethorphan-guaifenesin 10 10 ml PO Q4H PRN Cough 05/11/22 03/09/23 Unknown History mg-100 mg/5 mL oral syrup (Tussin DM) psyllium 1 packet PO BID 05/11/22 03/09/23 Unknown History guaifenesin 600 mg tablet, 600 mg PO BID 03/09/23 03/09/23 Unknown History extended release 12 hr Physical Exam Vital Signs: Vital Signs: Last Vital Signs Temp 99.1 F 03/13/23 16:53 Pulse 71 03/13/23 16:53 Resp 10 L 03/13/23 16:53 BP 95/58 L 03/13/23 16:53 Pulse Ox 91 L 03/13/23 16:53 O2 Del Method Nasal Cannula 03/13/23 15:00 O2 Flow Rate 1 03/13/23 15:00 Oxygen Flow Rate 3 03/09/23 14:50 BMI result Body Mass Index 34.6 Const: General: cooperative and healthy appearing Orientation/consciousness: oriented to person, oriented to place and oriented to time HEENT: Head: Yes normal to inspection Chest: Chest palpation & inspection: normal inspection of the chest Resp: Effort & Inspection: normal respiratory effort and able to speak in complete sentences Cardio: Jugular venous distension: no JVD Palpation: normal PMI Rate: regular rate GI: Inspection: Yes normal to inspection Skin: General skin exam: no rashes or lesions noted Neuro: General: oriented to person, oriented to place and oriented to time Objective Labs and Meds 03/13/23 05:16 03/13/23 05:16 Lab results: Laboratory Results - last 24 hr 03/13/23 03/13/23 03/13/23 05:16 05:16 05:16 WBC Cancelled 5.5 RBC Cancelled 4.88 Hgb Cancelled Hct MCV MCH MCHC RDW Plt Count MPV Immature Gran % (Auto) Neut % (Auto) Lymph % (Auto) [place] % (Auto) Eos % (Auto) Baso % (Auto) Lymph # (Auto) [place] # (Auto) Eos # (Auto) Baso # (Auto) Abs Immat Gran (auto) Absolute Neuts (auto) Absolute Nucleated RBC Nucleated RBC % (auto) Smear Tech's Comments VBG pH VBG pCO2 VBG pO2 VBG HCO3 VBG O2 Saturation VBG Base Excess Sodium Potassium Chloride Carbon Dioxide Anion Gap BUN Creatinine Estim Creat Clear Calc Estimated GFR Random Glucose Calcium Phosphorus Magnesium Albumin 03/13/23 03/13/23 03/13/23 05:16 05:16 05:16 WBC RBC Hgb 14.7 Hct Cancelled 44.6 MCV Cancelled 91.4 MCH Cancelled MCHC RDW Plt Count MPV Immature Gran % (Auto) Neut % (Auto) Lymph % (Auto) Robertson % (Auto) Eos % (Auto) Baso % (Auto) Lymph # (Auto) [place] # (Auto) Eos # (Auto) Baso # (Auto) Abs Immat Gran (auto) Absolute Neuts (auto) Absolute Nucleated RBC Nucleated RBC % (auto) Smear Tech's Comments VBG pH VBG pCO2 VBG pO2 VBG HCO3 VBG O2 Saturation VBG Base Excess Sodium Potassium Chloride Carbon Dioxide Anion Gap BUN Creatinine Estim Creat Clear Calc Estimated GFR Random Glucose Calcium Phosphorus Magnesium Albumin 03/13/23 03/13/23 03/13/23 05:16 05:16 05:16 WBC RBC Hgb Hct MCV MCH 30.1 MCHC Cancelled 33.0 RDW Cancelled 13.4 Plt Count Cancelled MPV Immature Gran % (Auto) Neut % (Auto) Lymph % (Auto) Robertson % (Auto) Eos % (Auto) Baso % (Auto) Lymph # (Auto) Robertson # (Auto) Eos # (Auto) Baso # (Auto) Abs Immat Gran (auto) Absolute Neuts (auto) Absolute Nucleated RBC Nucleated RBC % (auto) Smear Tech's Comments VBG pH VBG pCO2 VBG pO2 VBG HCO3 VBG O2 Saturation VBG Base Excess Sodium Potassium Chloride Carbon Dioxide Anion Gap BUN Creatinine Estim Creat Clear Calc Estimated GFR Random Glucose Calcium Phosphorus Magnesium Albumin 03/13/23 03/13/23 03/13/23 05:16 05:16 05:16 WBC RBC Hgb Hct MCV MCH MCHC RDW Plt Count 78 L MPV Cancelled 9.7 Immature Gran % (Auto) Cancelled 0.4 Neut % (Auto) Cancelled Lymph % (Auto) Robertson % (Auto) Eos % (Auto) Baso % (Auto) Lymph # (Auto) Robertson # (Auto) Eos # (Auto) Baso # (Auto) Abs Immat Gran (auto) Absolute Neuts (auto) Absolute Nucleated RBC Nucleated RBC % (auto) Smear Tech's Comments VBG pH VBG pCO2 VBG pO2 VBG HCO3 VBG O2 Saturation VBG Base Excess Sodium Potassium Chloride Carbon Dioxide Anion Gap BUN Creatinine Estim Creat Clear Calc Estimated GFR Random Glucose Calcium Phosphorus Magnesium Albumin 03/13/23 03/13/23 03/13/23 05:16 05:16 05:16 WBC RBC Hgb Hct MCV MCH MCHC RDW Plt Count MPV Immature Gran % (Auto) Neut % (Auto) 56.3 Lymph % (Auto) Cancelled 23.6 Robertson % (Auto) Cancelled 8.5 Eos % (Auto) Cancelled Baso % (Auto) Lymph # (Auto) Robertson # (Auto) Eos # (Auto) Baso # (Auto) Abs Immat Gran (auto) Absolute Neuts (auto) Absolute Nucleated RBC Nucleated RBC % (auto) Smear Tech's Comments VBG pH VBG pCO2 VBG pO2 VBG HCO3 VBG O2 Saturation VBG Base Excess Sodium Potassium Chloride Carbon Dioxide Anion Gap BUN Creatinine Estim Creat Clear Calc Estimated GFR Random Glucose Calcium Phosphorus Magnesium Albumin 03/13/23 03/13/23 03/13/23 05:16 05:16 05:16 WBC RBC Hgb Hct MCV MCH MCHC RDW Plt Count MPV Immature Gran % (Auto) Neut % (Auto) Lymph % (Auto) Robertson % (Auto) Eos % (Auto) 10.7 H Baso % (Auto) Cancelled 0.5 Lymph # (Auto) Cancelled 1.3 Robertson # (Auto) Cancelled Eos # (Auto) Baso # (Auto) Abs Immat Gran (auto) Absolute Neuts (auto) Absolute Nucleated RBC Nucleated RBC % (auto) Smear Tech's Comments VBG pH VBG pCO2 VBG pO2 VBG HCO3 VBG O2 Saturation VBG Base Excess Sodium Potassium Chloride Carbon Dioxide Anion Gap BUN Creatinine Estim Creat Clear Calc Estimated GFR Random Glucose Calcium Phosphorus Magnesium Albumin 03/13/23 03/13/23 03/13/23 05:16 05:16 05:16 WBC RBC Hgb Hct MCV MCH MCHC RDW Plt Count MPV Immature Gran % (Auto) Neut % (Auto) Lymph % (Auto) Robertson % (Auto) Eos % (Auto) Baso % (Auto) Lymph # (Auto) Robertson # (Auto) 0.5 Eos # (Auto) Cancelled 0.6 H Baso # (Auto) Cancelled 0.0 Abs Immat Gran (auto) Cancelled Absolute Neuts (auto) Absolute Nucleated RBC Nucleated RBC % (auto) Smear Tech's Comments VBG pH VBG pCO2 VBG pO2 VBG HCO3 VBG O2 Saturation VBG Base Excess Sodium Potassium Chloride Carbon Dioxide Anion Gap BUN Creatinine Estim Creat Clear Calc Estimated GFR Random Glucose Calcium Phosphorus Magnesium Albumin 03/13/23 03/13/23 03/13/23 05:16 05:16 05:16 WBC RBC Hgb Hct MCV MCH MCHC RDW Plt Count MPV Immature Gran % (Auto) Neut % (Auto) Lymph % (Auto) Robertson % (Auto) Eos % (Auto) Baso % (Auto) Lymph # (Auto) Robertson # (Auto) Eos # (Auto) Baso # (Auto) Abs Immat Gran (auto) 0.02 Absolute Neuts (auto) Cancelled 3.1 Absolute Nucleated RBC Cancelled 0.000 Nucleated RBC % (auto) Cancelled Smear Tech's Comments VBG pH VBG pCO2 VBG pO2 VBG HCO3 VBG O2 Saturation VBG Base Excess Sodium Potassium Chloride Carbon Dioxide Anion Gap BUN Creatinine Estim Creat Clear Calc Estimated GFR Random Glucose Calcium Phosphorus Magnesium Albumin 03/13/23 03/13/23 05:16 05:25 WBC RBC Hgb Hct MCV MCH MCHC RDW Plt Count MPV Immature Gran % (Auto) Neut % (Auto) Lymph % (Auto) Robertson % (Auto) Eos % (Auto) Baso % (Auto) Lymph # (Auto) Robertson # (Auto) Eos # (Auto) Baso # (Auto) Abs Immat Gran (auto) Absolute Neuts (auto) Absolute Nucleated RBC Nucleated RBC % (auto) 0.0 Smear Tech's Comments VERIFIED VBG pH 7.43 VBG pCO2 60 VBG pO2 48 VBG HCO3 40 H VBG O2 Saturation 82.0 VBG Base Excess 13.2 Sodium 148 H Potassium 3.6 Chloride 104 Carbon Dioxide 34 H Anion Gap 14 BUN 13 Creatinine 0.95 Estim Creat Clear Calc 87.8 Estimated GFR > 60 Random Glucose 113 Calcium 9.5 Phosphorus 3.2 Magnesium 2.3 Albumin 3.8 Assessment and Plan (1) Sinus bradycardia: Status: Acute (2) Shock: Status: Acute Plan Bradycardia Low blood pressure Possible infection Cognitive impairment Patient had bradycardia on admission in the setting of Metoprolol which improved He needed dopamine later on Today dopamine was stopped and switched to Phenylephrine and patient developed bradycardia. Dopamine was restarted In evening dopamine was stopped heart rate stayed in normal limits. Phenylephrine is prone to cause bradycardia and after stopping of phenylephrine patient is doing better from heart rate point of view Avoid phenylephrine if pressor is needed. Its unlikely that bradycardia is the reason for hypotension No clear evidence of high degree AV block on monitor npo after midnight. Will monitor response off dopamine Will followup tomorrow Procedures Date of Service Date of Service: 03/13/23
[2023-03-13] MEDS: Melatonin 3 MG TABLET PO (20:45)
[2023-03-14] VITALS (25 sets, daily range): BP systolic 78–145; BP diastolic 44–84; PULSE 46–76; RESP 9–30; TEMP 36.2–37.4; O2SAT 87–96; BMI 34.6
[2023-03-14] MEDS: Midodrine HCl 10 MG TABLET PO ×4 (00:15→20:06)
[2023-03-14] MEDS: Norepinephrine Bitartrate/D5W 8 MG/250 ML PLAST..BAG 9.39 MG IV (00:19)
[2023-03-14] MEDS: ondansetron HCL 4 MG/2 ML VIAL IVPUSH (03:53)
[2023-03-14 05:26] LABS: Hematocrit 43.3 % (42.0-52.0); Hemoglobin 13.9 g/dl (14.0-18.0); Mean Corpuscular HGB Conc 32.1 g/dl (31.0-36.0); Neutrophils Percent Auto 59.3 % (45-73); PLT CLUMP 1; SCAN SMEAR FLAG 1
[2023-03-14 05:28] LABS: Basophils Percent Auto 0.6 % (0-2); Eosinophils Absolute Auto 0.5 X10*3/uL (0.0-0.4); Eosinophils Percent Auto 7.8 % (0-4); Imm Gran Abs Auto 0.03 X10*3/uL (0.00-0.03); Imm Gran Pct Auto 0.4 % (0.0-0.4); Lymphocytes Absolute Auto 1.5 X10*3/uL (1.2-4.9); Lymphocytes Percent Auto 21.9 % (20-40); MANUAL DIFF FLAG SCAN; Mean Corpuscular Hemoglobin 30.3 pg (27.0-33.0); Mean Corpuscular Volume 94.5 fL (80.0-98.0); Mean Platelet Volume 10.6 fL (9.4-12.4); Monocytes Absolute Auto 0.7 X10*3/uL (0.1-1.2); Neutrophils Absolute Auto 4.1 x10*3/uL (2.0-8.3); Red Blood Count 4.58 X10*6/uL (4.60-5.80); Red Cell Distribution Width 13.4 % (11.0-16.0)
[2023-03-14 05:29] LABS: Platelet Count 77 X10*3/uL (160-400); White Blood Count 6.9 X10*3/uL (4.8-10.8)
[2023-03-14 05:30] LABS: SLIDE REVIEW VERIFIED
[2023-03-14 05:46] LABS: Albumin Level 3.6 g/dL (3.5-5.0); Anion Gap 11 (12-20); Blood Urea Nitrogen 23 mg/dL (9-16); Calcium 9.4 mg/dL (8.4-10.2); Carbon Dioxide 37 mmol/L (22-29); Chloride 105 mmol/L (96-108); Creatinine Clr Calc Pharmacy 83.3; Estimated Glomerular Filt Rate > 60; Glucose Random 89 mg/dL (60-115); Magnesium 2.4 mg/dL (1.6-2.6); Phosphorus 3.5 mg/dL (2.7-4.5); Potassium 4.1 mmol/L (3.3-5.1); Sodium 149 mmol/L (135-145)
[2023-03-14] MEDS: Albuterol Sulfate (0.083%) 2.5 MG/3 ML VIAL.NEB INHALE (06:30)
--- NOTE | 2023-03-14 08:00 | ECG_ITS ---
Test Reason : luc pre pacemaker Blood Pressure : / mmHG Vent. Rate : 070 BPM Atrial Rate : 070 BPM P-R Int : 160 ms QRS Dur : 088 ms QT Int : 402 ms P-R-T Axes : 041 -23 -14 degrees QTc Int : 434 ms Normal sinus rhythm T wave abnormality, consider anterior ischemia Abnormal ECG When compared with ECG of 13-MAR-2023 09:27, T wave inversion now evident in Anterior leads Referred By: Caryn Seymour Electronically Signed By:ECHO MADRIGAL
[2023-03-14] MEDS: diazePAM 2 MG TABLET 1 MG PO ×3 (08:27→20:06)
[2023-03-14] MEDS: Divalproex Sodium ER 500 MG TAB.ER.24H PO ×2 (08:27→20:06)
[2023-03-14] MEDS: Pregabalin 50 MG CAPSULE PO ×3 (08:28→20:06)
[2023-03-14] MEDS: levoFLOXacin/D5W 750 MG/150 ML PIGGYBACK 100 MG IV (09:48)
--- NOTE | 2023-03-14 11:16 | P.PNCC_ITS ---
Subjective Subjective Date of Service: 03/14/23 Interval History: 58-year-old gentleman with underlying history of neuroleptic malignant syndrome secondary to Abilify in 2008, chronic upper extremity contractures, chronic constipation with prior rectal prolapse, neurogenic bladder, anxiety, hypertension admitted on 03/09/2023 with vomiting and hypoxia, likely secondary to aspiration. In ER patient with bradycardia and hypotension requiring initiation dopamine. Evaluated by Cardiology service with suggestion beta-gilbert related bradycardia. Maintained of beta-gilbert for 48 hours, still with episodes of bradycardia down to 30s. Also initially on empiric antibiotics, now monitored off. No events overnight. Titrated off pressors. Critical Care Time (minutes): 45 Physical Exam 2 Vital Signs: Vital Signs: Last Vital Signs Temp 99.0 F 03/14/23 11:00 Pulse 76 03/14/23 11:00 Resp 12 03/14/23 11:00 BP 114/67 03/14/23 11:00 Pulse Ox 94 03/14/23 11:00 O2 Del Method Oxymask 03/14/23 11:00 O2 Flow Rate 5 03/14/23 11:00 Oxygen Flow Rate 3 03/09/23 14:50 BMI result Body Mass Index 34.6 Const: General: no acute distress, alert and awake Eyes: Sclerae: sclerae normal EOM: EOMs intact bilaterally Neck: Neck: Yes no lymphadenopathy, Yes trachea midline and Yes supple Resp: Effort & Inspection: normal respiratory effort and no respiratory distress Auscultation: clear to auscultation bilaterally Cardio: Rate: regular rate Rhythm: regular rhythm Heart sounds: no gallops, no murmurs and no rubs GI: Palpation (GI): Soft to palpation and Other GI palpation findings present ( Nontender) Auscultation: normal bowel sounds Extrem: General: Yes no pedal edema, No clubbing and No cyanosis Objective Data Labs 03/14/23 04:28 03/14/23 04:28 Labs: Laboratory Results - last 24 hr 03/14/23 04:28 WBC 6.9 RBC 4.58 L Hgb 13.9 L Hct 43.3 MCV 94.5 MCH 30.3 MCHC 32.1 RDW 13.4 Plt Count 77 L MPV 10.6 Immature Gran % (Auto) 0.4 Neut % (Auto) 59.3 Lymph % (Auto) 21.9 [place] % (Auto) 10.0 Eos % (Auto) 7.8 H Baso % (Auto) 0.6 Lymph # (Auto) 1.5 [place] # (Auto) 0.7 Eos # (Auto) 0.5 H Baso # (Auto) 0.0 Abs Immat Gran (auto) 0.03 Absolute Neuts (auto) 4.1 Absolute Nucleated RBC 0.000 Nucleated RBC % (auto) 0.0 Smear Tech's Comments VERIFIED Sodium 149 H Potassium 4.1 Chloride 105 Carbon Dioxide 37 H Anion Gap 11 L BUN 23 H Creatinine 1.09 Estim Creat Clear Calc 83.3 Estimated GFR > 60 Random Glucose 89 Calcium 9.4 Phosphorus 3.5 Magnesium 2.4 Albumin 3.6 Microbiology Microbiology Results: Microbiology 03/09/23 15:37 Blood - Venous Blood Culture - Preliminary No growth after 48 hours. 03/09/23 15:15 Blood - Venous Blood Culture - Preliminary No growth after 48 hours. Progress Note: A&P Assessment and plan (1) Sinus bradycardia: Status: Acute (2) Constipation: Status: Acute (3) Hypoxia: Status: Acute (4) Generalized anxiety disorder: Status: Acute (5) Epilepsy: Status: Acute (6) OCD (obsessive compulsive disorder): Status: Acute Plan Assessment: 58-year-old gentleman admitted with acute hypoxic respiratory failure likely secondary to pulmonary aspiration further complicated by intermittent bradycardia requiring dopamine support. Plan: Neuro: No acute issues. Cardiac: Intermittent bradycardia. No longer chronotropic support dependent. Cardiology service care appreciated. Pulmonary: Acute respiratory failure with hypoxia secondary to aspiration continue to titrate off supplemental oxygen as tolerated. Renal: Hypernatremia, likely secondary to volume loss with diarrhea, improved. Continue to monitor electrolytes, renal indices, and urine output. Endo: No acute issues. GI: Diarrhea, stool softeners stopped. Prior history of C diff. ID: Empiric Levaquin for 7 days. Heme/Onc: No acute issues. Psych: No acute issues. Miscellaneous: No acute issues. Prophylaxis: Pneumatic compression Diet: Regular Critical care time spent: 45 minutes Quality Stroke Does the patient have a stroke diagnosis?: No Reason for No Anti-thrombotic by Day Two: N/A - Med Ordered VTE Prior VTE?: No VTE Risk Level:: Medical - moderate - high VTE Device Contraindication: N/A - Device Ordered VTE Drug Contraindication: N/A - Med Ordered
--- NOTE | 2023-03-14 12:18 | P.PNCA_ITS ---
Subjective Subjective Date of Service: 03/14/23 Interval history: Denies any symptoms Review of Systems Review of Systems All other review of systems are negative Physical Exam Vital Signs: Last Vital Signs Temp 99.1 F 03/14/23 12:00 Pulse 70 03/14/23 12:00 Resp 9 L 03/14/23 12:00 BP 112/67 03/14/23 12:00 Pulse Ox 94 03/14/23 12:00 O2 Del Method Oxymask 03/14/23 12:00 O2 Flow Rate 5 03/14/23 12:00 Oxygen Flow Rate 3 03/09/23 14:50 BMI result Body Mass Index 34.6 Const General: cooperative Chest Chest palpation & inspection: normal inspection of the chest Resp Effort & Inspection: normal respiratory effort Auscultation: clear to auscultation bilaterally Cardio Jugular venous distension: no JVD Palpation: normal PMI Rate: regular rate Rhythm: regular rhythm Heart sounds: S1 normal heart sound present and S2 normal heart sound present GI Inspection: Yes normal to inspection Auscultation: normal bowel sounds Skin General skin exam: no rashes or lesions noted Objective Labs and Meds 03/14/23 04:28 03/14/23 04:28 Lab results: Laboratory Results - last 24 hr 03/14/23 04:28 WBC 6.9 RBC 4.58 L Hgb 13.9 L Hct 43.3 MCV 94.5 MCH 30.3 MCHC 32.1 RDW 13.4 Plt Count 77 L MPV 10.6 Immature Gran % (Auto) 0.4 Neut % (Auto) 59.3 Lymph % (Auto) 21.9 [place] % (Auto) 10.0 Eos % (Auto) 7.8 H Baso % (Auto) 0.6 Lymph # (Auto) 1.5 [place] # (Auto) 0.7 Eos # (Auto) 0.5 H Baso # (Auto) 0.0 Abs Immat Gran (auto) 0.03 Absolute Neuts (auto) 4.1 Absolute Nucleated RBC 0.000 Nucleated RBC % (auto) 0.0 Smear Tech's Comments VERIFIED Sodium 149 H Potassium 4.1 Chloride 105 Carbon Dioxide 37 H Anion Gap 11 L BUN 23 H Creatinine 1.09 Estim Creat Clear Calc 83.3 Estimated GFR > 60 Random Glucose 89 Calcium 9.4 Phosphorus 3.5 Magnesium 2.4 Albumin 3.6 Imaging Radiologist's impression: Impressions Chest X-Ray 03/14/23 06:47 IMPRESSION: Improved aeration at the right base. Progress Note: A&P Assessment and plan (1) Shock: Status: Acute (2) Sinus bradycardia: Status: Acute Plan Patient had an episode of bradycardia while his IV lines were being manipulated. It was short lived and self terminated after 10-15 seconds. We had a detailed discussion with regards to pacemaker placement. Patient and patient's family wants to hold off as of now There is no urgent indication for pacemaker currently. In view of dizziness and hypotension and bradycardia telemetry while inpatient and event monitor at discharge will help to find out whether bradycardia is contributing to dizziness. Time Spent With Patient Time: Total time managing care of this patient today ____ minutes. Progress Note: Quality Stroke Does the patient have a stroke diagnosis?: No Reason for No Anti-thrombotic by Day Two: N/A - Med Ordered Procedures Date of Service Date of Service: 03/14/23
--- NOTE | 2023-03-14 15:02 | MHC.SLORD ---
Speech Language Pathology Order Status: MENTAL HEALTH SOCIAL WORKER consult received for reported concern of silent aspiration and/or microaspiration. RN reports toleration of regular solids/thin liquids and unexplained desatting overnight. MENTAL HEALTH SOCIAL WORKER visited patient and sister at bedside, both denied hx of or concern for dysphagia/ swallowing difficulties. Denied hx aspiration PNA or reflux. MENTAL HEALTH SOCIAL WORKER did not complete bedside swallow eval as patient was needing to be reclined in bed pending transfer from ICU. Patient on regular solids and thin liquids at [facility]. MENTAL HEALTH SOCIAL WORKER eval to be completed tomorrow.
[2023-03-14] MEDS: Melatonin 3 MG TABLET PO (20:06)
[2023-03-14] MEDS: guaiFEN/Codeine SF 200/20/10ML 10 ML LIQUID PO (23:43)
[2023-03-15 03:30] VITALS: BP 119/61; PULSE 52; RESP 17; TEMP 36.4; O2SAT 95
[2023-03-15] MEDS: guaiFEN/Codeine SF 200/20/10ML 10 ML LIQUID PO (05:30)
[2023-03-15 06:00] VITALS: BMI 34.6
[2023-03-15 07:05] LABS: MANUAL DIFF FLAG NO
[2023-03-15 07:12] LABS: Basophils Percent Auto 0.6 % (0-2); Eosinophils Absolute Auto 0.4 X10*3/uL (0.0-0.4); Eosinophils Percent Auto 6.8 % (0-4); Hematocrit 42.4 % (42.0-52.0); Hemoglobin 13.3 g/dl (14.0-18.0); Imm Gran Abs Auto 0.03 X10*3/uL (0.00-0.03); Imm Gran Pct Auto 0.5 % (0.0-0.4); Lymphocytes Absolute Auto 1.7 X10*3/uL (1.2-4.9); Lymphocytes Percent Auto 26.7 % (20-40); Mean Corpuscular HGB Conc 31.4 g/dl (31.0-36.0); Mean Corpuscular Hemoglobin 29.7 pg (27.0-33.0); Mean Corpuscular Volume 94.6 fL (80.0-98.0); Mean Platelet Volume 10.5 fL (9.4-12.4); Monocytes Absolute Auto 0.6 X10*3/uL (0.1-1.2); Neutrophils Absolute Auto 3.5 x10*3/uL (2.0-8.3); Neutrophils Percent Auto 55.4 % (45-73); Red Blood Count 4.48 X10*6/uL (4.60-5.80); Red Cell Distribution Width 13.5 % (11.0-16.0); White Blood Count 6.4 X10*3/uL (4.8-10.8)
[2023-03-15 07:18] LABS: Platelet Count 72 X10*3/uL (160-400)
[2023-03-15 07:26] LABS: Anion Gap 11 (12-20); Blood Urea Nitrogen 27 mg/dL (9-16); Carbon Dioxide 35 mmol/L (22-29); Chloride 105 mmol/L (96-108); Estimated Glomerular Filt Rate > 60; Glucose Random 96 mg/dL (60-115); Magnesium 2.4 mg/dL (1.6-2.6); Phosphorus 2.4 mg/dL (2.7-4.5); Potassium 3.9 mmol/L (3.3-5.1); Sodium 147 mmol/L (135-145)
[2023-03-15 07:52] VITALS: BP 101/61; PULSE 52; RESP 18; TEMP 36.4; O2SAT 94
--- NOTE | 2023-03-15 08:00 | ECG_ITS ---
Test Reason : check qtc Blood Pressure : / mmHG Vent. Rate : 060 BPM Atrial Rate : 060 BPM P-R Int : 174 ms QRS Dur : 084 ms QT Int : 412 ms P-R-T Axes : 055 -08 -37 degrees QTc Int : 412 ms Normal sinus rhythm Low voltage QRS Nonspecific T wave abnormality Abnormal ECG When compared with ECG of 14-MAR-2023 08:13, No significant change was found Referred By: Caryn Seymour Electronically Signed By:ECHO MADRIGAL
[2023-03-15] MEDS: Divalproex Sodium ER 500 MG TAB.ER.24H PO ×2 (09:20→21:45)
[2023-03-15] MEDS: Midodrine HCl 10 MG TABLET PO ×3 (09:20→21:45)
[2023-03-15] MEDS: Pregabalin 50 MG CAPSULE PO ×3 (09:20→21:45)
[2023-03-15] MEDS: levoFLOXacin/D5W 750 MG/150 ML PIGGYBACK 100 MG IV (09:21)
[2023-03-15] MEDS: diazePAM 2 MG TABLET 1 MG PO ×3 (09:21→21:44)
[2023-03-15] MEDS: ondansetron HCL 4 MG/2 ML VIAL IVPUSH (10:56)
--- NOTE | 2023-03-15 11:08 | MHC.SL.SWA ---
Speech Pathologist Impression: Risk of Aspiration Due to: Neurological Condition Reduced Cognition Dysphasia Diet Status: Liquid Consistency and Strategies for Safe Swallow: Liquid Intake Recommendation: Thin Liquid Intake Strategies: Small Sips Solid Food Consistency: Dietary Recommendations: Regular Additional Modifications to Solid Foods: Due to UE weakness, contractures, patient will need direct supervision during meals with direct assistance as needed to manage cutlery e.g. Patient will need to have food cut into manageable pieces, and have all items open on tray. Oral Medication Intake: Whole with Liquid Please contact the pharmacy regarding appropriate crushable or liquid drug formulations that are available whenever modified delivery is recommended. Compensatory Strategies and Precautions to be Taken for Safe Swallow: Sitting Upright (90 deg) Liquids from Cup Liquids from Straw Small Bites and Sips Alternate Liquids/Solids Supervision While Eating and Drinking for Safe Swallow: Total Supervision (1:1) Foods to Avoid: Swallowing Recommended Treatments: Recommendation for Speech: NA:Typical Evaluation Comment: Patient presents with all aspects of oral motor function and all aspects of swallow WFL. Recommend patient continue on Regular Diet with thin liquids, pills whole with liquid. Patient has upper extremity weakness and contracted fingers and requires direct supervision with direct assistance as needed during meals. Patient on Regular Diet will need larger pieces of food cut into manageable, bite size pieces, and have all items on tray open and available to him. As swallow is WFL, no further speech therapy services are warranted at this time and UNDERGROUND ELECTRICIAN will discharge patient. Frequency/Duration: Date Range for Service Req: Timeline to reassess: Adult Basic Education Manager Clinican/Clinical Fellow: No Supervisory Statement: I have reviewed and agree with the student/clinical fellow's documentation: N/A Speech Language Pathologist: Monique Nagy M.A., CCC-UNDERGROUND ELECTRICIAN
[2023-03-15 12:00] VITALS: BP 114/66; PULSE 65; RESP 18; TEMP 36.8; O2SAT 94
--- NOTE | 2023-03-15 13:00 | MHC.CM.PN ---
PER MD ROUNDS, PT EXPECTED TO DC TOMORROW BACK TO [facility] [place] [facility] VIA BLS
--- NOTE | 2023-03-15 14:05 | HO.PM.IMPN ---
Subjective Subjective Date of Service: 03/16/23 Interval History: Continues to improve. Still with O2 requirement Review of Systems Denies chest pain Denies shortness of breath Denies nausea vomiting diarrhea Denies fever chills Physical Exam Vital Signs: Vital Signs: Last Vital Signs Temp 98.3 F 03/15/23 12:00 Pulse 65 03/15/23 12:00 Resp 18 03/15/23 12:00 BP 114/66 03/15/23 12:00 Pulse Ox 94 03/15/23 12:00 O2 Del Method Nasal Cannula 03/15/23 12:00 O2 Flow Rate 2 03/15/23 12:00 Oxygen Flow Rate 3 03/09/23 14:50 BMI result Body Mass Index 34.6 Const: Other: Awake alert no acute distress Resp: Other: Clear to auscultation bilaterally no rales rhonchi or wheezes Cardio: Other: No S4; positive S1-S2; no S3 murmurs rubs or gallops GI: Other: Soft nontender nondistended normoactive bowel sounds Extrem: Other: No edema bilaterally Objective Data Active Medications Diazepam (Diazepam 2 Mg Tablet) 1 mg PO TID [facility] Last Admin: 03/15/23 09:21 Dose: 1 mg Documented By: HUE Divalproex Sodium (Divalproex Sodium Er 500 Mg Tab.Er.24h) 500 mg PO BID [facility] Last Admin: 03/15/23 09:20 Dose: 500 mg Documented By: HUE Guaifenesin/Codeine Phosphate (Guaifen/Codeine Sf 200/20/10ml 10 Ml Liquid) 10 ml PO Q4H PRN PRN Reason: Cough Last Admin: 03/15/23 05:30 Dose: 10 ml Documented By: COREY Levofloxacin (Levaquin) 750 mg in 150 mls @ 100 mls/hr IV Q24H [facility] Last Infusion: 03/15/23 11:01 Dose: Infused Documented By: HUE Melatonin (Melatonin 3 Mg Tablet) 3 mg PO BEDTIME [facility] Last Admin: 03/14/23 20:06 Dose: 3 mg Documented By: PENNY Midodrine (Midodrine Hcl 10 Mg Tablet) 10 mg PO TID [facility] Last Admin: 03/15/23 09:20 Dose: 10 mg Documented By: HUE Ondansetron HCl (Ondansetron Hcl 4 Mg/2 Ml Vial) 4 mg IVPUSH Q8H PRN PRN Reason: Nausea and Vomiting Last Admin: 03/15/23 10:56 Dose: 4 mg Documented By: HUE Pregabalin (Pregabalin 50 Mg Capsule) 50 mg PO TID [facility] Last Admin: 03/15/23 09:20 Dose: 50 mg Documented By: HUE Sodium Biphosphate/Sodium Phosphate (Sodium Phosphate,[place]-Dibasic 133 Ml Enema) 133 ml PA ONCE PRN PRN Reason: Constipation Labs 03/16/23 06:15 03/16/23 06:15 Labs: Laboratory Results - last 24 hr 03/15/23 05:49 MCV 94.6 MCH 29.7 MCHC 31.4 RDW 13.5 Plt Count 72 L MPV 10.5 Immature Gran % (Auto) 0.5 H Neut % (Auto) 55.4 Lymph % (Auto) 26.7 [place] % (Auto) 10.0 Eos % (Auto) 6.8 H Baso % (Auto) 0.6 Lymph # (Auto) 1.7 [place] # (Auto) 0.6 Eos # (Auto) 0.4 Baso # (Auto) 0.0 Abs Immat Gran (auto) 0.03 Absolute Neuts (auto) 3.5 Absolute Nucleated RBC 0.000 Nucleated RBC % (auto) 0.0 Anion Gap 11 L Estim Creat Clear Calc 108.0 Estimated GFR > 60 Random Glucose 96 Calcium 9.0 Phosphorus 2.4 L Magnesium 2.4 Microbiology Microbiology Results: Microbiology 03/09/23 15:37 Blood Culture - Final Blood - Venous No growth after 5 days. 03/09/23 15:15 Blood Culture - Final Blood - Venous No growth after 5 days. Assessment and Plan (1) Pulmonary aspiration: Status: Acute (2) Shock: Status: Acute (3) Acute respiratory failure with hypoxia: Status: Acute Quality Stroke Does the patient have a stroke diagnosis?: No Reason for No Anti-thrombotic by Day Two: N/A - Med Ordered VTE Prior VTE?: No VTE Risk Level:: Medical - moderate - high VTE Device Contraindication: N/A - Device Ordered VTE Drug Contraindication: N/A - Med Ordered
[2023-03-15 15:16] VITALS: BP 113/67; PULSE 62; RESP 18; TEMP 37; O2SAT 95
[2023-03-15 19:29] VITALS: BP 126/64; PULSE 65; RESP 18; TEMP 36.7; O2SAT 95
[2023-03-15] MEDS: Melatonin 3 MG TABLET PO (21:45)
[2023-03-15 23:16] VITALS: BP 109/59; PULSE 55; RESP 18; TEMP 36; O2SAT 94
[2023-03-16 03:32] VITALS: BP 149/64; PULSE 52; RESP 18; TEMP 36.5; O2SAT 97
[2023-03-16 05:54] VITALS: BMI 35.2
[2023-03-16 06:22] LABS: MANUAL DIFF FLAG NO
[2023-03-16 06:29] LABS: Basophils Percent Auto 0.6 % (0-2); Eosinophils Absolute Auto 0.5 X10*3/uL (0.0-0.4); Eosinophils Percent Auto 7.7 % (0-4); Hemoglobin 12.9 g/dl (14.0-18.0); Imm Gran Abs Auto 0.03 X10*3/uL (0.00-0.03); Imm Gran Pct Auto 0.4 % (0.0-0.4); Lymphocytes Absolute Auto 1.5 X10*3/uL (1.2-4.9); Lymphocytes Percent Auto 22.3 % (20-40); Mean Corpuscular HGB Conc 32.3 g/dl (31.0-36.0); Mean Corpuscular Hemoglobin 30.4 pg (27.0-33.0); Mean Corpuscular Volume 94.1 fL (80.0-98.0); Mean Platelet Volume 10.6 fL (9.4-12.4); Monocytes Absolute Auto 0.6 X10*3/uL (0.1-1.2); Monocytes Percent Auto 9.5 % (2-11); Neutrophils Percent Auto 59.5 % (45-73); Red Blood Count 4.25 X10*6/uL (4.60-5.80); Red Cell Distribution Width 13.4 % (11.0-16.0); White Blood Count 6.7 X10*3/uL (4.8-10.8)
[2023-03-16 06:30] LABS: Platelet Count 80 X10*3/uL (160-400)
[2023-03-16 07:01] LABS: Anion Gap 12 (12-20); Blood Urea Nitrogen 24 mg/dL (9-16); Calcium 8.9 mg/dL (8.4-10.2); Carbon Dioxide 35 mmol/L (22-29); Chloride 102 mmol/L (96-108); Estimated Glomerular Filt Rate > 60; Glucose Random 100 mg/dL (60-115); Magnesium 2.2 mg/dL (1.6-2.6); Phosphorus 2.9 mg/dL (2.7-4.5); Potassium 3.9 mmol/L (3.3-5.1); Sodium 145 mmol/L (135-145)
[2023-03-16 07:55] VITALS: BP 125/67; PULSE 54; RESP 18; TEMP 36.2; O2SAT 95
--- NOTE | 2023-03-16 08:00 | ECG_ITS ---
Test Reason : CHECK RHYTHM Blood Pressure : / mmHG Vent. Rate : 053 BPM Atrial Rate : 053 BPM P-R Int : 154 ms QRS Dur : 094 ms QT Int : 414 ms P-R-T Axes : 038 -05 000 degrees QTc Int : 388 ms Sinus bradycardia Nonspecific T wave abnormality Abnormal ECG When compared with ECG of 15-MAR-2023 08:40, No significant change was found Referred By: Caryn Seymour Electronically Signed By:ECHO MADRIGAL
[2023-03-16] MEDS: Divalproex Sodium ER 500 MG TAB.ER.24H PO (08:14)
[2023-03-16] MEDS: levoFLOXacin 750 MG TABLET PO (08:14)
[2023-03-16] MEDS: Midodrine HCl 10 MG TABLET PO (08:14)
[2023-03-16] MEDS: Pregabalin 50 MG CAPSULE PO (08:14)
[2023-03-16] MEDS: diazePAM 2 MG TABLET 1 MG PO (08:14)
--- NOTE | 2023-03-16 11:32 | MHC.CM.PN ---
pt to be dcd at 2 today back to [facility]er hugh notified of dc
[2023-03-16] MEDS: ondansetron HCL 4 MG/2 ML VIAL IVPUSH (11:50)
--- NOTE | 2023-03-16 11:50 | P.DS_ITS ---
DS: Providers Provider Date of Service: 03/16/23 Date of admission: 03/09/23 22:19 Date of discharge: 03/16/23 Primary care physician: Augustine Dan DO Consults: 03/10/23 02:40 Consult to Cardiology Routine Consulting Provider: [facility] Reason for consultation: TACHY [facility]HETT EPISODES Has provider been notified: Yes DS: Diagnosis Discharge Diagnosis (1) Pulmonary aspiration: Status: Acute (2) Shock: Status: Acute (3) Acute respiratory failure with hypoxia: Status: Acute DS: Summary Hospital Course Hospital Course: 50 year old who has an underlying history of neuroleptic malignant syndrome due to Abilify, who has chronic upper extremity contracture and lower extremity weakness for which he ambulates with the use of a walker, chronic constipation and [id number] neurogenic bladder, status post appendectomy and abdominal surgical revision surgery, anxiety, depression, PTSD, hypertension. Patient presented to the emergency room with complaints of 1 episode of emesis and history of thrombocytopenia with [facility] concerns for recurrent GI bleed; in addition they reported that he had respiratory distress and hypoxia with an O2 sat in the 70s to 80s, febrile of 102.9.? They also had reported bright red blood per rectum x1 at the residential.? Patient is not known to be on anticoagulation therapy. ?Initially in the emergency room the patient was noted to be normotensive however he was tachycardic at 01:19 and fe brile at 01:03 0.5 F requiring 4 L nasal cannula oxygen supplementation with normally does not use oxygen, subsequently a couple hours later the patient became hypotensive.? He did not show a white count or lactic acidosis.? There was no evidence of bleeding for his H&H was at his baseline and he had a negative stool guaiac study.? His chest x-ray did show possible infiltrates and/or atelectasis and they question whether or not the patient might have aspirated during his vomiting episode, the patient was started on IV fluids per sepsis protocol, was given Zosyn and albumin.? Although initially the patient seemed to have improved, his blood pressure continued to deteriorate and we were called for admission. Upon evaluating the patient in the emergency room, it was clear that the patient's blood pressure was very labile but low, he did appear well and both the patient's well as his sister stated that he looks much better however 80s concerning that he was requiring oxygen.? My initial evaluation did reveal adventitious lung sounds, given the lack of lactic acidosis and or white count, will rule out other causes of hypoxia therefore a CT angiogram to rule out PE was requested prior transferred to the ICU, a central line will be placed in the ER and we will start him on Levophed. [facility] Admitted to ICU on Levophed drip. Empirically treated for aspiration pneumonia with Levaquin; x-rays have remained clear thus far. He was weaned off Levophed drip in the ICU and transferred to general medical floor. The thought was aspiration pneumonia however speech failed to find evidence of aspiration. He did have episodes of bradycardia; cardiology consulted EP who saw patient and felt at this time pacemaker was not indicated. Their recommendation was outpatient monitoring with follow-up with local Cardiology. Over the 48 hours since his transfer out from ICU he is continued to improve although still has an O2 requirement. At this point in time is medically acceptable for discharge on O2. He will complete an oral course of Levaquin. He will be ordered an outpatient monitor and follow up with Cardiology will be arranged Time Attestation Discharge coordination time: Greater than 30 minutes Quality: Safe Use of Opioids Does Pt have an Active Cancer Diagnosis on the Problem List?: No Quality: Stroke Does the patient have a stroke diagnosis?: No Physical Exam Vital Signs: Vital Signs: Last Vital Signs Temp 97.2 F 03/16/23 07:55 Pulse 54 03/16/23 07:55 Resp 18 03/16/23 07:55 BP 125/67 03/16/23 07:55 Pulse Ox 95 03/16/23 07:55 O2 Del Method Nasal Cannula 03/16/23 07:55 O2 Flow Rate 2 03/16/23 07:55 Oxygen Flow Rate 3 03/09/23 14:50 BMI result Body Mass Index 35.2 Const: General: cooperative, healthy appearing, comfortable, no acute distress, well developed, alert, awake and Physically active Nutritional Appearance: overweight Orientation/consciousness: oriented to person, or iented to place, oriented to time and patient oriented x3 Limitations: no limitations HEENT: Other: Unremarkable Head: Yes normal to inspection, Yes normocephalic and Yes atraumatic Ears: hearing grossly normal bilaterally General nose exam: Normal external nose present Face and sinus: Yes normal facial exam Eyes: General: appearance normal, both eyes and all related structures Sclerae: sclerae normal EOM: EOMs intact bilaterally Neck: Neck: Yes normal visual inspection, Yes no lymphadenopathy, Yes no meningeal signs, Yes trachea midline, Yes supple and Yes no JVD Chest: Chest palpation & inspection: normal inspection of the chest Resp: Effort & Inspection: normal respiratory effort, able to speak in com plete sentences, no respiratory distress and tachypneic Auscultation: clear to auscultation bilaterally and crackles on the right at the base Cardio: Jugular venous distension: no JVD Palpation: normal PMI Rate: regular rate and tachycardic Rhythm: regular rhythm Heart sounds: S1 normal heart sound present, S2 normal heart sound present, no click, no gallops, no murmurs and no rubs GI: Inspection: Yes normal to inspection, No Abdominal wall edema and No distended Palpation (GI): Soft to palpation, not firm, nontender, no gua rding, not rigid and Other GI palpation findings present ( Nontender) Auscultation: normal bowel sounds Back/Spine/Pelvis: Other: unremarkable Skin: General skin exam: no rashes or lesions noted Rashes: no rashes Wounds: no wounds Neuro: General: oriented to person, oriented to place, oriented to time, patient oriented x3, tone normal, moves all extremities, no meningeal signs and no focal motor deficits Cranial nerves: Yes CN's II-XII intact bilaterally Extrem: General: Yes normal to inspection, Yes capillary refill normal, Yes no clubbing, cyanosis or edema, Yes no pedal edema, No clubbing, No cyanosis and Yes edema Psych: Appearance: grossly normal Mental Status: mental status grossly normal DS: Data Data Completed and Pending Completed studies during hospitalization [Text1]: Procedures Supplement Abdominal Wall with Synthetic Substitute, Open Approach (03/15/22) Labs on day of discharge: Laboratory Results - last 24 hr 03/16/23 06:15 WBC 6.7 RBC 4.25 L Hgb 12.9 L Hct 40.0 L MCV 94.1 MCH 30.4 MCHC 32.3 RDW 13.4 Plt Count 80 L MPV 10.6 Immature Gran % (Auto) 0.4 Neut % (Auto) 59.5 Lymph % (Auto) 22.3 [place] % (Auto) 9.5 Eos % (Auto) 7.7 H Baso % (Auto) 0.6 Lymph # (Auto) 1.5 [place] # (Auto) 0.6 Eos # (Auto) 0.5 H Baso # (Auto) 0.0 Abs Immat Gran (auto) 0.03 Absolute Neuts (auto) 4.0 Absolute Nucleated RBC 0.000 Nucleated RBC % (auto) 0.0 Sodium 145 Potassium 3.9 Chloride 102 Carbon Dioxide 35 H Anion Gap 12 BUN 24 H Creatinine 0.84 Estim Creat Clear Calc 109.0 Estimated GFR > 60 Random Glucose 100 Calcium 8.9 Phosphorus 2.9 Magnesium 2.2 Discharge Plan Discharge Anticipated Discharge Date/Time: 03/16/23 11:21 Patient Disposition: Xfer LTC Discharge Diagnosis: Sepsis secondary to aspiration pneumonia [facility]errals: [facility] [Other] - 1 Week Augustine Dan DO [Primary Care Provider] - 1 Week Discharge Medications: New levofloxacin 750 mg Tablet 750 mg PO Q24H Qty: 5 0RF midodrine 10 mg Tablet 10 mg PO TID Qty: 90 0RF Continued (DME) abdominal binder 2xl See Rx Instructions .Route .MEDSUPPLY Qty: 1 0RF Rx Instructions: Pt to wear binder during daytime hours - may remove for shower diazepam 2 mg Tablet 2 mg PO TID melatonin 1 mg Tablet 1 mg PO BEDTIME ibuprofen 800 mg Tablet 800 mg PO Q8H PRN (Reason: FEVER/PAIN) acetaminophen 500 mg Tablet 500 mg PO Q6H PRN (Reason: FEVER/MILD PAIN) bisacodyl 10 mg Suppository 10 mg AR Q24H PRN (Reason: Constipation) pregabalin 100 mg Capsule 100 mg PO TID Rx Instructions: GIVE WITH 300 MG CAPSULE TO EQUAL 400 MG BID Senna Plus 8.6-50 mg Capsule 1 tab-cap PO Q24H PRN (Reason: Constipation) Senna Plus 8.6-50 mg Capsule 1 tab-cap PO DAILY cholecalciferol (vitamin D3) 25 mcg (1,000 unit) Tablet 50 mcg PO DAILY Fleet Enema 19-7 gram/118 mL Enema 118 ml AR DAILY PRN (Reason: Constipation) Rx Instructions: use only if bisacodyl suppository is ineffective lactulose 10 gram/15 mL (15 mL) Solution 30 ml PO DAILY polyethylene glycol 3350 [Miralax] 17 gram/dose powder 17 g PO BID Rx Instructions: dilute in 6-8 ounces of fluid psyllium Packet 1 packet PO BID Rx Instructions: mix into at least 8 oz of water or juice before administering dextromethorphan-guaifenesin [Tussin DM] 10-100 mg/5 mL Syrup 10 ml PO Q4H PRN (Reason: Cough) alum-mag hydroxide-simeth 200-200-20 mg/5 mL Suspension 30 ml PO Q4H PRN (Reason: Heartburn) Rx Instructions: administer between meals and at bedtime guaifenesin 600 mg Tablet Extended Release 12hr 600 mg PO BID divalproex [Depakote ER] 500 mg tablet extended release 24 hr 500 mg PO BID Discontinued metoprolol succinate 25 mg Tablet Extended Release 24 Hr 25 mg PO BID Rx Instructions: take with or after meals Discharge Orders: Discharge Order (Routine); Ordered 03/16/23 Ordered By: Augustine Dan Diet: Advance to usual diet Activity on Discharge: As tolerated Stand Alone Forms: Patient Portal Discharge page Care Plan Goals: Complete course of Levaquin as ordered midodrine 10 mg 3 times a day has been added to your medical regimen Health Concerns: Resume all medicine as and therapies as taken prior to the hospital Plan of Treatment: As per receiving facility Assessment: See discharge summary
[2023-03-16 12:00] VITALS: O2SAT 95
== END 2023-03-16 14:16 | DRG 720 ==
LOC: HO.ED 22:08 → HO.EDOVER 22:31 → HO.ICU 23:28 → HO.S3 03-14 12:36
PROVIDERS: Internal Medicine Critical Care Medicine; Internal Medicine Pulmonary Disease; Physician Assistant; Admitting Provider Physician Assistant Medical; Emergency Provider Emergency Medicine; PCP Hospitalist; Visit Provider Hospitalist
DX: A41.9 Sepsis, unspecified organism (principal); J96.01 Acute respiratory failure with hypoxia; R65.21 Severe sepsis with septic shock; J69.0 Pneumonitis due to inhalation of food and vomit; F41.1 Generalized anxiety disorder; N31.9 Neuromuscular dysfunction of bladder, unspecified; R00.1 Bradycardia, unspecified; T44.7X5A Adverse effect of beta-adrenoreceptor antagonists, initial encounter; G31.84 Mild cognitive impairment of uncertain or unknown etiology; G40.909 Epilepsy, unspecified, not intractable, without status epilepticus; E87.0 Hyperosmolality and hypernatremia; K59.09 Other constipation; D69.6 Thrombocytopenia, unspecified; M62.442 Contracture of muscle, left hand; Z20.822 Contact with and (suspected) exposure to COVID-19; Z79.899 Other long term (current) drug therapy
CPT/HCPCS: 36415; 71045; 71275; 74177; 80048; 80053; 80076; 80164; 80202; 81003; 82040; 82272; 82550; 82803; 82947; 83605; 83690; 83735; 83880; 84100; 84439; 84443; 84480; 84484; 85025; 85610; 87040; 87502; 87635; 92610; 93005; 93306; 94640; 99223; 99233; 99285; C1758; J1265; J1610; J1956; J2060; J2371; J2405; J2543; J2765; J3370; J3371; J3475; P9047; Q9967

== ENCOUNTER → 2023-03-09 15:06 | Outpatient (BNV) | payer MEDICAID, SELFPAY | PROVIDERS: Admitting Provider Physician Assistant Medical; Emergency Provider Emergency Medicine; Visit Provider Internal Medicine Cardiovascular Disease | DX: I45.81 Long QT syndrome (principal) | CPT/HCPCS: 93010 ==

== ENCOUNTER 2023-03-09 22:19 | Outpatient (BNV) | payer MEDICAID, SELFPAY | END 2023-03-12 07:00 | PROVIDERS: Admitting Provider Physician Assistant Medical; Emergency Provider Emergency Medicine; PCP Hospitalist; Visit Provider Internal Medicine | DX: I49.9 Cardiac arrhythmia, unspecified (principal); R94.31 Abnormal electrocardiogram [ECG] [EKG] | CPT/HCPCS: 93010; 93306 ==

== ENCOUNTER 2023-03-09 22:19 | Outpatient (BNV) | payer MEDICAID, SELFPAY | END 2023-03-14 08:00 | PROVIDERS: Admitting Provider Physician Assistant Medical; Emergency Provider Emergency Medicine; PCP Hospitalist; Visit Provider Internal Medicine | DX: R94.31 Abnormal electrocardiogram [ECG] [EKG] (principal) | CPT/HCPCS: 93010 ==

== ENCOUNTER 2023-03-09 22:19 | Outpatient (BNV) | payer MEDICAID, SELFPAY | END 2023-03-13 08:00 | PROVIDERS: Admitting Provider Physician Assistant Medical; Emergency Provider Emergency Medicine; PCP Hospitalist; Visit Provider Internal Medicine | DX: R00.1 Bradycardia, unspecified (principal); R94.31 Abnormal electrocardiogram [ECG] [EKG] | CPT/HCPCS: 93010 ==

== ENCOUNTER 2023-03-09 22:19 | Outpatient (BNV) | payer MEDICAID, SELFPAY | END 2023-03-16 08:00 | PROVIDERS: Admitting Provider Physician Assistant Medical; Emergency Provider Emergency Medicine; PCP Hospitalist; Visit Provider Internal Medicine | DX: R00.1 Bradycardia, unspecified (principal); R94.31 Abnormal electrocardiogram [ECG] [EKG] | CPT/HCPCS: 93010 ==

== ENCOUNTER 2023-03-09 22:19 | Outpatient (BNV) | payer MEDICAID, SELFPAY | END 2023-03-15 08:00 | PROVIDERS: Admitting Provider Physician Assistant Medical; Emergency Provider Emergency Medicine; PCP Hospitalist; Visit Provider Internal Medicine | DX: R94.31 Abnormal electrocardiogram [ECG] [EKG] (principal) | CPT/HCPCS: 93010 ==

== ENCOUNTER 2023-03-09 22:19 | Outpatient (BNV) | payer MEDICAID, SELFPAY | END 2023-03-10 02:50 | PROVIDERS: Admitting Provider Physician Assistant Medical; Emergency Provider Emergency Medicine; Visit Provider Internal Medicine Cardiovascular Disease | DX: R94.31 Abnormal electrocardiogram [ECG] [EKG] (principal) | CPT/HCPCS: 93010 ==

== ENCOUNTER → 2023-03-09 22:19 | Outpatient (BNV) | payer MEDICAID, SELFPAY | PROVIDERS: Admitting Provider Physician Assistant Medical; Emergency Provider Emergency Medicine; PCP Hospitalist; Visit Provider Internal Medicine Pulmonary Disease | DX: R00.1 Bradycardia, unspecified (principal); R09.02 Hypoxemia; G40.909 Epilepsy, unspecified, not intractable, without status epilepticus; K59.00 Constipation, unspecified; F41.1 Generalized anxiety disorder; F42.9 Obsessive-compulsive disorder, unspecified | CPT/HCPCS: 99291 ==

== ENCOUNTER → 2023-03-09 22:19 | Outpatient (BNV) | payer MEDICAID, SELFPAY | PROVIDERS: Admitting Provider Physician Assistant Medical; Emergency Provider Emergency Medicine; Visit Provider Physician Assistant Medical | DX: A41.9 Sepsis, unspecified organism (principal); R65.21 Severe sepsis with septic shock; J96.01 Acute respiratory failure with hypoxia | CPT/HCPCS: 36556; 99291; 99292 ==

== ENCOUNTER → 2023-03-09 22:19 | Outpatient (BNV) | payer MEDICAID, SELFPAY | PROVIDERS: Admitting Provider Physician Assistant Medical; Emergency Provider Emergency Medicine; PCP Hospitalist; Visit Provider Hospitalist | DX: T17.900A Unspecified foreign body in respiratory tract, part unspecified causing asphyxiation, initial encounter (principal); R57.9 Shock, unspecified; J96.01 Acute respiratory failure with hypoxia | CPT/HCPCS: 99238 ==

== ENCOUNTER → 2023-03-09 22:19 | Outpatient (BNV) | payer MEDICAID, SELFPAY | PROVIDERS: Admitting Provider Physician Assistant Medical; Emergency Provider Emergency Medicine; Visit Provider Internal Medicine Cardiovascular Disease | DX: R00.1 Bradycardia, unspecified (principal); A41.9 Sepsis, unspecified organism; R65.20 Severe sepsis without septic shock; R65.21 Severe sepsis with septic shock | CPT/HCPCS: 99222; 99233 ==

== ENCOUNTER → 2023-03-30 13:20 | Outpatient (REF) | payer MEDICAID, SELFPAY ==
--- NOTE | 2023-03-30 13:25 | HM_ITS ---
Conclusion: 1. Patient was monitored for total period of 7 days 2. Baseline was normal sinus rhythm with average heart of 68 beats per minute 3. No significant pauses noted with one 11 beat run of ectopic atrial tachycardia 4. No patient reported events MTDD
== END ==
LOC: HO.CARD 13:20
PROVIDERS: PCP Hospitalist; Visit Provider Internal Medicine
DX: R00.1 Bradycardia, unspecified (principal)
CPT/HCPCS: 93242

== ENCOUNTER → 2023-03-30 13:25 | Outpatient (BNV) | payer MEDICAID, SELFPAY | PROVIDERS: PCP Hospitalist; Visit Provider Internal Medicine Cardiovascular Disease | DX: R00.1 Bradycardia, unspecified (principal) | CPT/HCPCS: 93244 ==

== ENCOUNTER 2023-04-06 12:53 | Outpatient (AMB) | payer MEDICAID, SELFPAY ==
[2023-04-06 13:02] VITALS: BP 140/80; PULSE 60; BMI 34.7
--- NOTE | 2023-04-06 13:02 | A.OFFVIS_ITS ---
Intake Vital Signs 04/06/23 13:02 Height 5 ft 7 in Weight 221 lb 12.56 oz BMI 34.7 BP 140/80 H Blood Pressure Location Rt brachial Position Sitting Pulse 60 Pulse Source Pulse Oximeter Intake Visit Reasons: hospital follow up Tafe Registrar Required: No Allergies aripiprazole [From ABILIFY] Allergy (Severe, Verified 04/06/23 13:08) Involuntary Spasms droperidol [From INAPSINE] Allergy (Severe, Verified 04/06/23 13:08) Involuntary Spasms haloperidol [From HALDOL] Allergy (Severe, Verified 04/06/23 13:08) Involuntary Spasms prochlorperazine [From COMPAZINE] Allergy (Severe, Verified 04/06/23 13:08) Involuntary Spasms promethazine [From PHENERGAN] Allergy (Severe, Verified 04/06/23 13:08) Involuntary Spasms sulfamethoxazole [From BACTRIM] Allergy (Severe, Verified 04/06/23 13:08) Anaphylaxis trimethoprim [From BACTRIM] Allergy (Severe, Verified 04/06/23 13:08) Anaphylaxis Medication List - Last Reconciled 04/06/23 by Gabby Rodarte NP-C [abdominal binder Pt to wear binder during daytime hours - may remove for shower ] acetaminophen 500 mg PO Q6H PRN alum-mag hydroxide-simeth 200-200-20 mg/5 mL 30 mL PO Q4H PRN bisacodyl 10 mg OR Q24H PRN cholecalciferol (vitamin D3) 50 mcg PO DAILY dextromethorphan-guaifenesin 10-100 mg/5 mL (Tussin DM) 10 mL PO Q4H PRN diazepam 2 mg PO TID divalproex ER (Depakote ER) 500 mg PO BID guaifenesin ER 600 mg PO BID ibuprofen 800 mg PO Q8H PRN lactulose 30 mL PO DAILY levofloxacin 750 mg PO Q24H melatonin 1 mg PO BEDTIME midodrine 10 mg PO TID polyethylene glycol 3350 (Miralax) 17 grams PO BID pregabalin 100 mg PO TID psyllium 1 packet PO BID sennosides-docusate sodium 8.6-50 mg (Senna Plus) 1 tab-cap PO Q24H PRN sennosides-docusate sodium 8.6-50 mg (Senna Plus) 1 tab-cap PO DAILY sodium phosphates 19-7 gram/118 mL (Fleet Enema) 118 mL OR DAILY PRN HPI hospital follow up HPI Details Matt is a 58-year-old male with past medical history of neuroleptic malignant syndrome secondary to Abilify in 2008, chronic upper extremity contractures, anxiety, hypertension who was recently admitted to [facility] with vomiting and hypoxia, likely related to aspiration. He then developed sepsis requiring vasopressors. He was noted to have bradycardia and was given calcium gluconate. During his admission he had pulse rate down into the 30s with use of Kit-Synephrine requiring changed back to dopamine. He was evaluated by Dr. Alegria and pacemaker not indicated at that time. Upon discharge a Holter monitor was applied. His antihypertensives were held and he was put on midodrine for blood pressure support. Today he presents for post hospital follow-up with his sister. She is very involved in his care and goes to all his appointments with him. Patient states that he has been doing well since his hospital discharge. He has not had any issues with excess fatigue, lightheadedness, shortness of breath. Denies any chest discomfort at rest or with activity. No heart palpitations, presyncope, syncope, falls. No PND, orthopnea, he does have chronic mild leg edema. He resides at [facility] and they provide him his medications. His blood pressure has been more elevated recently. He continues on midodrine 10 mg t.i.d.. He is currently wearing his Holter monitor and plans to return it to the Cardiology Department after this visit. [facility] Medical History Neurogenic bladder Constipation Resides in penitentiary facility History of GI bleed Seizure disorder Urinary incontinence Osteoarthritis Rectal prolapse Cognitive impairment Hx of deep venous thrombosis Thrombocytopenia Bilateral cataracts Personal history of COVID-19 Diverticular disease Flexion contractures OCD (obsessive compulsive disorder) History of hemodialysis Depression Neuroleptic malignant syndrome Epilepsy Deformity of left hand Generalized anxiety disorder Major depressive disorder Mild cognitive impairment Hypertension Surgical History History of incisional hernia repair (03/15/22) History of repair of rectocele Hx of appendectomy Hx of colonoscopy Family History Sister Breast CA, Onset Age: 51 Ovarian ca, Onset Age: 55 Father Prostate CA, Onset Age: 70 Mother Colorectal cancer, Onset Age: 39 Kidney carcinoma, Onset Age: 67 Maternal Grandmother Colorectal cancer, Onset Age: 70 Maternal Aunt Colorectal cancer Social History Household Members: None Household Members Other:: lives at [facility] Housing: Assisted Living Facility Housing Other:: penitentiary facility[facility]-[phone] Are you a primary care professionals to a significant other at home: No Do you presently have visiting nurse or other home services: No ([facility] Resident) Unable to assess alcohol history related to: Unable to respond Alcohol intake: never Comment: [facility] Patient Tobacco Use Status: Never used Tobacco Second Hand Smoke Exposure: No Advance Directives Date on File: 11/21/19 service: No Current occupational status: disabled Review of Systems Const All systems reviewed & are unremarkable except as noted in HPI and below ENT Denies dizziness Card Denies chest pain, Denies chest pain at rest, Denies chest pain with activity, Denies rapid heart rate, Denies pedal edema, Denies edema, Denies leg edema, Denies lightheadedness, Denies palpitations, Denies dyspnea, Denies dyspnea on exertion and Denies orthopnea Resp Denies cough, Denies dyspnea and Denies dyspnea on exertion GI Denies hematochezia and Denies change in stool character Musc Denies abnormal gait, Denies limited range of motion, Denies muscle cramps, Denies muscle weakness, Denies numbness, Denies radiating pain into limb, Denies stiffness and Denies tingling Neuro Denies abnormal gait, Denies dizziness, Denies numbness and Denies tingling Endo Denies palpitations Physical Exam Vital Signs: Last Vital Signs Pulse 60 04/06/23 13:02 BP 140/80 H 04/06/23 13:02 BMI result Body Mass Index 34.7 Const Other: ambulates with walker General: cooperative, healthy appearing, comfortable and no acute distress Orientation/consciousness: patient oriented x3 Neck Neck: Yes normal visual inspection and Yes no JVD Resp Effort & Inspection: normal respiratory effort Auscultation: clear to auscultation bilaterally, no crackles, no rales, no rhonchi and no wheezes Cardio Jugular venous distension: no JVD Rate: regular rate Rhythm: regular rhythm Heart sounds: S1 normal heart sound present, S2 normal heart sound present, no m urmurs and no rubs Neuro General: patient oriented x3 Extrem General: Yes normal to inspection, No no pedal edema and No calf tenderness Psych Appearance: grossly normal Mental Status: mental status grossly normal Speech and movement: Normal speech and movement present Assessment & Plan Assessment & Plan (1) Bradycardia: Code(s): R00.1 - Bradycardia, unspecified Plan: Findings of sinus bradycardia during hospital admission for sepsis requiring vasopressors. He was more bradycardic on norepinephrine and required change back to dobutamine. An echocardiogram showed EF 65%, no regional wall motion abnormalities and no significant valve abnormalities. He was evaluated by Cardiology and electrophysiology. Pacemaker placement not indicated at that time. Upon discharge a Holter monitor was applied. He has his Holter monitor on and plans to return to Cardiology following this visit. He has not had any lightheadedness, presyncope, syncope, no excess fatigue or shortness of breath since his hospital discharge. His pulse is regular on examination today with rate of 60. Plan to get Holter monitor results in a few days and call patient's sister and Dr. Dan with results. Would continue to keep him off all rate slowing agents. Prior to his admission he was on metoprolol which was then discontinued. Cardiology follow-up to be determined based on Holter results. (2) Hypertension: Code(s): I10 - Essential (primary) hypertension Plan: History of hypertension. He previously was on metoprolol. During his hospitalization for sepsis he had hypotension requiring vasopressors. Upon discharge he was sent home with midodrine 10 mg t.i.d.. Blood pressure is now more elevated. Recommend reduction in midodrine dose down to 5 mg t.i.d. and further titrate to off as needed. This recommendation was written on his return forms for care 1. According to sister Sr Dan is the primary care provider at that facility. (3) Hospital discharge follow-up: Code(s): Z09 - Encounter for follow-up examination after completed treatment for conditions other than malignant neoplasm Plan: As above Plan Time spent on chart review, documentation, interview and assessment Coding Level of Care Code Est Pt Level 4 (70149) Diagnoses Bradycardia R00.1 Hypertension I10 Hospital discharge follow-up Z09 Time Spent (min) 28
== END 2023-04-06 13:34 | disposition home or self-care (01) ==
PROVIDERS: PCP Hospitalist; Visit Provider Nurse Practitioner Family
DX: R00.1 Bradycardia, unspecified (principal); I10 Essential (primary) hypertension; Z09 Encounter for follow-up examination after completed treatment for conditions other than malignant neoplasm
CPT/HCPCS: 99214

== ENCOUNTER → 2023-04-06 12:53 | Outpatient (BNVA) | payer MEDICAID, SELFPAY | PROVIDERS: PCP Hospitalist; Visit Provider Nurse Practitioner Family | DX: Z09 Encounter for follow-up examination after completed treatment for conditions other than malignant neoplasm (principal); R00.1 Bradycardia, unspecified; I10 Essential (primary) hypertension | CPT/HCPCS: 99212 ==

== ENCOUNTER 2023-10-04 10:42 | Outpatient (AMB) | payer MEDICAID, SELFPAY ==
--- NOTE | 2023-10-04 11:31 | A.OFFVIS_ITS ---
Intake Visit Reasons: 1yr follow up Intake Note: Patient is Present for Follow Up PSA Urology Medication:None Antibiotic Allergies: Sulfa, Trimethroprim Blood Thinners:None Hall Clerk Required: No Shell Press Operator: Shell Press Operator Present Accompanied by: nurse Allergies aripiprazole [From ABILIFY] Allergy (Severe, Verified 10/04/23 11:40) Involuntary Spasms droperidol [From INAPSINE] Allergy (Severe, Verified 10/04/23 11:40) Involuntary Spasms haloperidol [From HALDOL] Allergy (Severe, Verified 10/04/23 11:40) Involuntary Spasms prochlorperazine [From COMPAZINE] Allergy (Severe, Verified 10/04/23 11:40) Involuntary Spasms promethazine [From PHENERGAN] Allergy (Severe, Verified 10/04/23 11:40) Involuntary Spasms sulfamethoxazole [From BACTRIM] Allergy (Severe, Verified 10/04/23 11:40) Anaphylaxis trimethoprim [From BACTRIM] Allergy (Severe, Verified 10/04/23 11:40) Anaphylaxis HPI Comments Details: Matt is a pleasant male. He is a resident [facility]. He seen for the following urologic conditions - bladder outlet obstruction Accompanied by his sister Father had prostate cancer in his 70s Yearly PVR Remains low No longer on prostate medications Recommend p.r.n. follow-up PSA- 2023 0.6 Bladder outlet obstruction Progressive Not currently taking prostate medications PSA have incomplete bladder emptying Recommend yearly PVR PFSH Medical History Neurogenic bladder Constipation Resides in senior living facility History of GI bleed Seizure disorder Urinary incontinence Osteoarthritis Rectal prolapse Cognitive impairment Hx of deep venous thrombosis Thrombocytopenia Bilateral cataracts Personal history of COVID-19 Diverticular disease Flexion contractures OCD (obsessive compulsive disorder) History of hemodialysis Depression Neuroleptic malignant syndrome Epilepsy Deformity of left hand Generalized anxiety disorder Major depressive disorder Mild cognitive impairment Hypertension Surgical History History of incisional hernia repair (03/15/22) History of repair of rectocele Hx of appendectomy Hx of colonoscopy Family History Sister Breast CA, Onset Age: 51 Ovarian ca, Onset Age: 55 Father Prostate CA, Onset Age: 70 Mother Colorectal cancer, Onset Age: 39 Kidney carcinoma, Onset Age: 67 Maternal Grandmother Colorectal cancer, Onset Age: 70 Maternal Aunt Colorectal cancer Social History Household Members: None Household Members Other:: lives at [facility] Housing[phone] Are you a primary daytime caregiver to a significant other at home: No Do you presently have visiting nurse or other home services: No ([facility] Resident) Unable to assess alcohol history related to: Unable to respond Alcohol intake: never Comment: [facility] Patient Tobacco Use Status: Never used Tobacco Second Hand Smoke Exposure: No Advance Directives Date on File: 11/21/19 service: No Current occupational status: disabled Review of Systems Const Denies chills and Denies fever(s) Card Reports no additional complaints and Denies syncope Resp Denies cough GI Denies abdominal pain and Denies heartburn Reports as per HPI and Denies change in libido Neuro Denies syncope Psych Denies change in libido Endo Denies change in libido Physical Exam Const General: cooperative, healthy appearing, comfortable and no acute distress Orientation/consciousness: patient oriented x3 HEENT Face and sinus: Yes normal facial exam Mouth: moist mucous membranes Neck Neck: Yes normal visual inspection, Yes full ROM and Yes trachea midline Chest Chest palpation & inspection: normal inspection of the chest Resp Effort & Inspection: normal respiratory effort, able to speak in complete sentences and no respiratory distress GI Inspection: Yes normal to inspection Back/Spine/Pelvis Cervical Spine: normal cervical lordosis Thoracic/Lumbar Spine: thoracic and lumbar spine normal to inspection Skin General skin exam: no rashes or lesions noted Neuro General: patient oriented x3, gait normal, tone normal and moves all extremities Extrem General: Yes normal to inspection and Yes capillary refill normal Assessment & Plan Assessment & Plan (1) Bladder outlet obstruction: Code(s): N32.0 - Bladder-neck obstruction Category: Medical Plan P.r.n. follow-up Patient Instructions: Imaging studies, laboratory and physical exam results were discussed and reviewed in detail. No major barriers to patient understanding were identified. An opportunity to ask questions regarding the treatment plan was provided. All questions were answered. The patient expressed understanding and agreement with the above treatment plan. The patient is aware they should contact our office by phone for worsening of their current condition or the appearance of new urologic symptoms. Compliance is encouraged with any medications and followup testing that is ordered. It is a privilege to participate in the urologic care of your patient. If you have any questions or concerns regarding treatment for the above conditions, or other urologic issues, please do not hesitate to contact me. The office telephone contact is [phone]. This note is constructed using voice recognition software. While every effort has been made to ensure accuracy assurance manager errors may have been included. Yours sincerely, Dr Barrie Robison MD, [facility] - Urology Providers of Expert, Compassionate Care for the Genitourinary System Coding Level of Care Code Est Pt Level 4 (41606) Diagnoses Bladder outlet obstruction N32.0
== END 2023-10-04 11:49 | disposition home or self-care (01) ==
PROVIDERS: PCP Hospitalist; Visit Provider Urology
DX: N32.0 Bladder-neck obstruction (principal)
CPT/HCPCS: 99214

== ENCOUNTER → 2023-10-04 10:42 | Outpatient (BNVA) | payer MEDICAID, SELFPAY | PROVIDERS: PCP Hospitalist; Visit Provider Urology | DX: Z09 Encounter for follow-up examination after completed treatment for conditions other than malignant neoplasm (principal); N32.0 Bladder-neck obstruction | CPT/HCPCS: 99212 ==

== ENCOUNTER 2024-02-23 13:58 | Inpatient (IN) | payer MEDICAID, SELFPAY ==
[2024-02-23] VITALS (8 sets, daily range): BP systolic 120–177; BP diastolic 70–93; PULSE 58–97; RESP 18–28; TEMP 36.7–40; O2SAT 91–98; BMI 31.4
--- NOTE | ~2024-02-23 | XR_ITS ---
CLINICAL HISTORY: fever 1 view chest x-ray Comparison: CR/SR - XR CHEST 1V - 03/14/23 06:29 EST Findings: 2 films were obtained. Hazy right lower lobe and left basilar opacities. No pneumothorax or large pleural effusion. Normal size heart. No acute fracture. IMPRESSION: 1. Hypoventilation. 2. Right lower lobe opacity secondary to infection or inflammation. 3. Left basilar opacity likely secondary to volume loss /atelectasis. This document has been electronically signed by: Monica Mark DO on 02/23/2024 15:22:06
--- NOTE | 2024-02-23 14:08 | ECG_ITS ---
Test Reason : WEAKNESS Blood Pressure : */* mmHG Vent. Rate : 75 BPM Atrial Rate : 75 BPM P-R Int : 182 ms QRS Dur : 86 ms QT Int : 376 ms P-R-T Axes : 57 -19 19 degrees QTcB Int : 419 ms Normal sinus rhythm Low voltage QRS Borderline ECG When compared with ECG of 16-Mar-2023 10:20, Nonspecific T wave abnormality no longer evident in Anterolateral leads Referred By: Angela Cardenas Electronically Signed By: Nilson Oliver
--- NOTE | 2024-02-23 14:16 | ED.FEVER ---
HPI - Fever General Chief Complaint: Fever Stated Complaint: FEVER Time Seen by Provider: 02/23/24 14:02 Source: patient, EMS and old records reviewed Mode of arrival: EMS Limitations: altered mental status History of Present Illness ED Provider: SOFI HPI Narrative: 59 yo male with PMH of aspiration pneumonia, hypoxia, HTN, neuroleptic malignant syndrome due to abilify - chronic contractures of UE and LE weakness, chronic constipation, neurogenic bladder, PTSD, who is from [facility] they note he seems more off and had an oral temp of 102 this AM but then rechecked 99.6 and they did not treat it. He is confused and asking for milk. He has no complaints at this time and is not able to answer questions. No further hx from SNF given. MD elicited complaint: fever, malaise and weakness Onset (ago): day(s) (1) Measured temperature: 102 F Context: sick contacts Exacerbating factors: nothing Relieving factors: nothing Associated symptoms: chills, rigors and other (confusion) Treatments prior to arrival fever: none Related Data Home Medications ?Medication ?Instructions ?Recorded ?Confirmed diazepam 2 mg tablet 2 mg PO TID 11/17/19 04/06/23 melatonin 1 mg tablet 1 mg PO BEDTIME 11/17/19 04/06/23 acetaminophen 500 mg tablet 500 mg PO Q6H PRN FEVER/MILD PAIN 02/13/20 04/06/23 bisacodyl 10 mg rectal suppository 10 mg IN Q24H PRN Constipation 02/13/20 04/06/23 cholecalciferol (vitamin D3) 25 50 mcg PO DAILY 02/13/20 04/06/23 mcg (1,000 unit) tablet ibuprofen 800 mg tablet 800 mg PO Q8H PRN FEVER/PAIN 02/13/20 04/06/23 pregabalin 100 mg capsule 100 mg PO TID 02/13/20 04/06/23 sennosides 8.6 mg-docusate sodium 1 tab-cap PO DAILY 02/13/20 04/06/23 50 mg capsule (Senna Plus) sennosides 8.6 mg-docusate sodium 1 tab-cap PO Q24H PRN Constipation 02/13/20 04/06/23 50 mg capsule (Senna Plus) lactulose 10 gram/15 mL (15 mL) 30 ml PO DAILY 03/09/22 04/06/23 oral solution polyethylene glycol 3350 17 17 g PO BID 03/09/22 04/06/23 gram/dose oral powder (Miralax) divalproex 500 mg tablet,extended 500 mg PO BID 04/20/22 04/06/23 release 24 hr (Depakote ER) sodium phosphates 19 gram-7 118 ml IN DAILY PRN Constipation 04/23/22 04/06/23 gram/118 mL enema (Fleet Enema) aluminum-mag hydroxide-simethicone 30 ml PO Q4H PRN Heartburn 05/11/22 04/06/23 200 mg-200 mg-20 mg/5 mL oral susp dextromethorphan-guaifenesin 10 10 ml PO Q4H PRN Cough 05/11/22 03/09/23 mg-100 mg/5 mL oral syrup (Tussin DM) psyllium 1 packet PO BID 05/11/22 04/06/23 guaifenesin 600 mg tablet, 600 mg PO BID 03/09/23 04/06/23 extended release 12 hr Previous Rx's ?Medication ?Instructions ?Recorded abdominal binder #1 ea 03/21/22 levofloxacin 750 mg tablet 750 mg PO Q24H #5 tabs 03/16/23 midodrine 10 mg tablet 10 mg PO TID #90 tabs 03/16/23 Allergies Allergy/AdvReac Type Severity Reaction Status Date / Time aripiprazole [From ABILIFY] Allergy Severe Involuntary Verified 02/23/24 14:11 Spasms droperidol [From INAPSINE] Allergy Severe Involuntary Verified 02/23/24 14:11 Spasms haloperidol [From HALDOL] Allergy Severe Involuntary Verified 02/23/24 14:11 Spasms prochlorperazine Allergy Severe Involuntary Verified 02/23/24 14:11 [From COMPAZINE] Spasms promethazine [From PHENERGAN] Allergy Severe Involuntary Verified 02/23/24 14:11 Spasms sulfamethoxazole Allergy Severe Anaphylaxis Verified 02/23/24 14:11 [From BACTRIM] trimethoprim [From BACTRIM] Allergy Severe Anaphylaxis Verified 02/23/24 14:11 Review of Systems Review of Systems: ROS unable to be obtained due to altered mental status PMFSH Past Medical History Attestation statement: The following information was validated with the patient. Source: old records reviewed Medical History Neurogenic bladder Constipation Resides in [facility] facility History of GI bleed Seizure disorder Urinary incontinence Osteoarthritis Rectal prolapse Cognitive impairment Hx of deep venous thrombosis Thrombocytopenia Bilateral cataracts Personal history of COVID-19 Diverticular disease Flexion contractures OCD (obsessive compulsive disorder) History of hemodialysis Depression Neuroleptic malignant syndrome Epilepsy Deformity of left hand Generalized anxiety disorder Major depressive disorder Mild cognitive impairment Hypertension Surgical History History of incisional hernia repair (03/15/22) History of repair of rectocele Hx of appendectomy Hx of colonoscopy Family History Family History Sister Breast CA, Onset Age: 51 Ovarian ca, Onset Age: 55 Father Prostate CA, Onset Age: 70 Mother Colorectal cancer, Onset Age: 39 Kidney carcinoma, Onset Age: 67 Maternal Grandmother Colorectal cancer, Onset Age: 70 Maternal Aunt Colorectal cancer Social History Social History Household Members: None Household Members Other:: [phone] Are you a primary multi care technician to a significant other at home: No Do you presently have visiting nurse or other home services: No ([facility] Resident) Unable to assess alcohol history related to: Unable to respond Alcohol intake: never Comment: [facility] [place] Patient Tobacco Use Status: Never used Tobacco Smoked in Last 30 Days: No Second Hand Smoke Exposure: No Use of substances other than those prescribed or required for medical reasons: No Advance Directives: Yes Advance Directives on File: Yes Advance Directives Date on File: 11/21/19 Do you have a plan to hurt others: No Plan service: No Current occupational status: disabled Physical Exam Vital Signs: Vital Signs: Last Vital Signs Temp 104 F H 02/23/24 14:09 Pulse 76 02/23/24 14:52 Resp 18 02/23/24 14:52 BP 123/70 02/23/24 14:52 Pulse Ox 98 02/23/24 14:52 O2 Del Method Nasal Cannula 02/23/24 14:52 O2 Flow Rate 3 02/23/24 14:52 Oxygen Flow Rate 2 02/23/24 14:09 BMI result Body Mass Index 31.4 Appearance: Alert. Oriented X1. No acute distress. Eyes: Pupils equal, round and reactive to light. ENT: Pharynx normal. Neck: Normal inspection. Neck supple. CVS: Normal heart rate and rhythm. Pulses normal. Respiratory: No respiratory distress. Breath sounds diminished. Abdomen: Soft and non-tender. Skin: Skin warm and dry. Normal skin color. Extremities: No lower extremity edema. Neuro: Oriented X 1. localizes to pain, diffusely weak Medications Administered Discontinued Medications Generic Name Dose Route Start Last Admin Trade Name Freq PRN Reason Stop Dose Admin Ceftriaxone Sodium 1 gm 02/23/24 14:08 02/23/24 14:34 Ceftriaxone Sodium 1 Gm Vial IVPUSH 02/23/24 14:09 1 gm ONCE ONE Administration Acetaminophen 1,000 mg in 100 mls @ 400 mls/hr 02/23/24 14:08 02/23/24 15:39 Ofirmev IV 02/23/24 14:22 Infused ONCE ONE Infusion Lactated Ringer's 2,979 mls @ 2,979 mls/hr 02/23/24 14:31 02/23/24 14:42 Lr 30 ml/kg infuse over 1 hr (2979 ml) 02/23/24 15:30 2,979 mls/hr IV Administration .Q1H ONE Medical Decision Making Medical Decision Making [facility] Narrative: 59 yo male with PMH of aspiration pneumonia, hypoxia, HTN, neuroleptic malignant syndrome due to abilify - chronic contractures of UE and LE weakness, chronic constipation, neurogenic bladder, PTSD here with fever and really no other history his O2 sats are low has hx of aspiration pneumonia at this time will obtain basic labs, call sepsis protocol, start on IVF, IV tylenol, empiric ceftriaxone. I have ordered UA and CXR as well. Differential Diagnosis Differential Diagnoses: The differential diagnosis associated with the presentation includes aspiration pneumonia, UTI, viral syndrome, pneumonia Admission/Observation Consideration of admission/observation: Escalation of care including admission/observation considered admit for hypoxia, pneumonia Consult Healthcare Provider Management of the patient was discussed with: Hospitalist (will admit) Lab Data [facility] Lab Attestation statement: I reviewed the patient's lab results. 02/23/24 14:33 02/23/24 14:33 Labs: Lab Results 02/23/24 Range/Units 14:33 WBC 5.2 (4.8-10.8) X10*3/uL RBC 4.66 (4.60-5.80) X10*6/uL Hgb 14.4 (14.0-18.0) g/dl Hct 42.0 (42.0-52.0) % MCV 90.1 (80.0-98.0) fL MCH 30.9 (27.0-33.0) pg MCHC 34.3 (31.0-36.0) g/dl RDW 14.0 (11.0-16.0) % Plt Count 88 L (160-400) X10*3/uL MPV 12.9 H (9.4-12.4) fL Immature Gran % (Auto) 0.6 H (0.0-0.4) % Neut % (Auto) 70.1 (45-73) % Lymph % (Auto) 15.9 L (20-40) % [place] % (Auto) 11.7 H (2-11) % Eos % (Auto) 1.3 (0-4) % Baso % (Auto) 0.4 (0-2) % Lymph # (Auto) 0.8 L (1.2-4.9) X10*3/uL [place] # (Auto) 0.6 (0.1-1.2) X10*3/uL Eos # (Auto) 0.1 (0.0-0.4) X10*3/uL Baso # (Auto) 0.0 (0.0-0.2) X10*3/uL Abs Immat Gran (auto) 0.03 (0.00-0.03) X10*3/uL Absolute Neuts (auto) 3.7 (2.0-8.3) x10*3/uL Absolute Nucleated RBC 0.000 (0.0-0.012) X10*3/uL Nucleated RBC % (auto) 0.0 (0.0-0.2) /100WBC Smear Tech's Comments VERIFIED Sodium 141 (135-145) mmol/L Potassium 3.9 (3.3-5.1) mmol/L Chloride 108 (96-108) mmol/L Carbon Dioxide 29 (22-29) mmol/L Anion Gap 8 L (12-20) BUN 19 H (9-16) mg/dL Creatinine 0.92 (0.5-1.4) mg/dL Estim Creat Clear Calc 102.1 Estimated GFR > 60 Random Glucose 104 (60-115) mg/dL Lactic Acid 1.3 (0.5-2.0) mmol/L Calcium 8.6 (8.4-10.2) mg/dL Magnesium 1.9 (1.6-2.6) mg/dL Total Bilirubin 0.5 (0.0-1.0) mg/dL Direct Bilirubin 0.2 (0.0-0.5) mg/dL AST 19 (5-37) U/L ALT 8 (0-40) U/L Alkaline Phosphatase 51 (39-117) U/L Troponin I High Sens < 2.7 D (<3.5-35.0) ng/L Total Protein 6.9 (6.5-8.0) g/dL Albumin 3.8 (3.5-5.0) g/dL Lipase 7 L (8-78) U/L Valproic Acid 84.0 (50.0-100.0) mcg/mL Influenza Type A (PCR) NEGATIVE (Negative) Influenza Type B (PCR) NEGATIVE (Negative) RSV RNA Qual (PCR) NEGATIVE (Negative) SARS-CoV-2 RNA (RT-PCR) NEGATIVE (Negative) Independent Interpretation I performed an independent interpretation of an: EKG and Plain X-Ray Interpretation: Rate: Rhythm: [place]: Normal P waves. Normal [place]. Normal QRS complex. ST T wave : qTC: prior studies: The study has been interpreted contemporaneously by me. . Radiology Impression Discussion of test interpretation with radiology: I have reviewed the radiologist's reading. Independent Historian Clinical information obtained from an independent historian. History obtained from or confirmed by: EMS External Record Review External record reviewed: Outpatient record Critical Care Time Critical Care Time Critical Care Time: Yes Total Critical Care Time: 45 Attestation: sepsis protocol, 2L of IVF, repeat assessment, admission, review of records I attest to this time spent taking care of the patient Discharge Plan Discharge Clinical Impression: Hypoxia, Aspiration pneumonia Fever Qualifiers: Fever type: unspecified Qualified Code(s): R50.9 - Fever, unspecified Patient Disposition: Admitted As Inpatient
[2024-02-23] MEDS: Acetaminophen 1,000 MG/100 ML PIGGYBACK 400 MG IV (14:34)
[2024-02-23] MEDS: cefTRIAXone sodium 1 GM VIAL IVPUSH (14:34)
[2024-02-23] MEDS: LACTATED RINGERS 2979 ML IV (14:42)
[2024-02-23 14:57] LABS: Basophils Percent Auto 0.4 % (0-2); Eosinophils Absolute Auto 0.1 X10*3/uL (0.0-0.4); Eosinophils Percent Auto 1.3 % (0-4); Hemoglobin 14.4 g/dl (14.0-18.0); Imm Gran Abs Auto 0.03 X10*3/uL (0.00-0.03); Imm Gran Pct Auto 0.6 % (0.0-0.4); Lymphocytes Absolute Auto 0.8 X10*3/uL (1.2-4.9); Lymphocytes Percent Auto 15.9 % (20-40); MANUAL DIFF FLAG SCAN; Mean Corpuscular HGB Conc 34.3 g/dl (31.0-36.0); Mean Corpuscular Hemoglobin 30.9 pg (27.0-33.0); Mean Corpuscular Volume 90.1 fL (80.0-98.0); Mean Platelet Volume 12.9 fL (9.4-12.4); Monocytes Absolute Auto 0.6 X10*3/uL (0.1-1.2); Monocytes Percent Auto 11.7 % (2-11); Neutrophils Absolute Auto 3.7 x10*3/uL (2.0-8.3); Neutrophils Percent Auto 70.1 % (45-73); Red Blood Count 4.66 X10*6/uL (4.60-5.80); SCAN SMEAR FLAG 1; White Blood Count 5.2 X10*3/uL (4.8-10.8)
[2024-02-23 15:00] LABS: Platelet Count 88 X10*3/uL (160-400)
[2024-02-23 15:03] LABS: Lactic Acid 1.3 mmol/L (0.5-2.0)
[2024-02-23 15:05] LABS: Alanine Aminotransferase 8 U/L (0-40); Albumin Level 3.8 g/dL (3.5-5.0); Alkaline Phosphatase 51 U/L (39-117); Anion Gap 8 (12-20); Aspartate Amino Transferase 19 U/L (5-37); Bilirubin Direct 0.2 mg/dL (0.0-0.5); Bilirubin Total 0.5 mg/dL (0.0-1.0); Blood Urea Nitrogen 19 mg/dL (9-16); Calcium 8.6 mg/dL (8.4-10.2); Carbon Dioxide 29 mmol/L (22-29); Chloride 108 mmol/L (96-108); Creatinine Clr Calc Pharmacy 102.1; Estimated Glomerular Filt Rate > 60; Glucose Random 104 mg/dL (60-115); Lipase 7 U/L (8-78); Magnesium 1.9 mg/dL (1.6-2.6); Potassium 3.9 mmol/L (3.3-5.1); Sodium 141 mmol/L (135-145); Total Protein 6.9 g/dL (6.5-8.0)
[2024-02-23 15:25] LABS: Influenza A PCR NEGATIVE (Negative); Influenza B PCR NEGATIVE (Negative); Resp Syncy Virus RNA Qual PCR NEGATIVE (Negative); SARS COV2 PCR INHOUSE NEGATIVE (Negative); SLIDE REVIEW VERIFIED
[2024-02-23 15:30] LABS: Troponin-I High Sensitivity < 2.7 ng/L (<3.5-35.0)
--- NOTE | 2024-02-23 15:48 | P.HPHOSP_ITS ---
History of Present Illness Date of Service: 02/23/24 Chief Complaint: fever 59M PMH neuroleptic malignant syndrome, intellectual delay, hypertension, dysphagia, presented from [facility] with fevers and altered mental status. Symptoms began on day of presentation. Was noted to have a fever of 102. Was sleepier and difficult to understand, in ED found to be septic with fever and tachycardia, chest x-ray with right lower lobe pneumonia. Patient is mentation improved as fever improved, denies any symptoms. Review of Systems 2 Review of Systems: Yes all other systems are reviewed and are negative [facility] Medical History Neurogenic bladder Constipation Resides in snf facility History of GI bleed Seizure disorder Urinary incontinence Osteoarthritis Rectal prolapse Cognitive impairment Hx of deep venous thrombosis Thrombocytopenia Bilateral cataracts Personal history of COVID-19 Diverticular disease Flexion contractures OCD (obsessive compulsive disorder) History of hemodialysis Depression Neuroleptic malignant syndrome Epilepsy Deformity of left hand Generalized anxiety disorder Major depressive disorder Mild cognitive impairment Hypertension Family History Sister Breast CA, Onset Age: 51 Ovarian ca, Onset Age: 55 Father Prostate CA, Onset Age: 70 Mother Colorectal cancer, Onset Age: 39 Kidney carcinoma, Onset Age: 67 Maternal Grandmother Colorectal cancer, Onset Age: 70 Maternal Aunt Colorectal cancer Surgical History History of incisional hernia repair (03/15/22) History of repair of rectocele Hx of appendectomy Hx of colonoscopy Social History Household Members: None Household Members Other:: lives at [facility] Housing: Assisted Living Facility Housing Other:: sn[facility][phone] Are you a primary childbirth and infant care teacher to a significant other at home: No Do you presently have visiting nurse or other home services: No ([facility] Resident) Unable to assess alcohol history related to: Unable to respond Alcohol intake: never Comment: [facility] Patient Tobacco Use Status: Never used Tobacco Smoked in Last 30 Days: No Second Hand Smoke Exposure: No Use of substances other than those prescribed or required for medical reasons: No Advance Directives: Yes Advance Directives on File: Yes Advance Directives Date on File: 11/21/19 Do you have a plan to hurt others: No Plan Nutrition Risks: On aspiration precautions service: No Current occupational status: disabled Meds Allergies Allergy/AdvReac Type Severity Reaction Status Date / Time aripiprazole [From ABILIFY] Allergy Severe Involuntary Verified 02/23/24 14:11 Spasms droperidol [From INAPSINE] Allergy Severe Involuntary Verified 02/23/24 14:11 Spasms haloperidol [From HALDOL] Allergy Severe Involuntary Verified 02/23/24 14:11 Spasms prochlorperazine Allergy Severe Involuntary Verified 02/23/24 14:11 [From COMPAZINE] Spasms promethazine [From PHENERGAN] Allergy Severe Involuntary Verified 02/23/24 14:11 Spasms sulfamethoxazole Allergy Severe Anaphylaxis Verified 02/23/24 14:11 [From BACTRIM] trimethoprim [From BACTRIM] Allergy Severe Anaphylaxis Verified 02/23/24 14:11 Active Medications: Current Medications Metronidazole (Flagyl) 500 mg in 100 mls @ 100 mls/hr IV ONCE ONE Stop: 02/23/24 16:24 Home Medications ?Medication ?Instructions ?Recorded ?Confirmed ?Last Taken ?Type diazepam 2 mg tablet 2 mg PO TID 11/17/19 02/23/24 03/15/22 History melatonin 1 mg tablet 1 mg PO BEDTIME 11/17/19 02/23/24 11/16/19 History acetaminophen 500 mg tablet 500 mg PO Q6H PRN FEVER/MILD PAIN 02/13/20 02/23/24 Unknown History bisacodyl 10 mg rectal suppository [address] Q24H PRN Constipation 02/13/20 02/23/24 Unknown History cholecalciferol (vitamin D3) 25 50 mcg PO DAILY 02/13/20 02/23/24 Unknown History mcg (1,000 unit) tablet ibuprofen 800 mg tablet 800 mg PO Q8H PRN moderate/severe 02/13/20 02/23/24 Unknown History pain pregabalin 100 mg capsule 100 mg PO TID 02/13/20 02/23/24 03/15/22 History lactulose 10 gram/15 mL (15 mL) 30 ml PO DAILY Constipation 03/09/22 02/23/24 Unknown History oral solution polyethylene glycol 3350 17 17 g PO BID 03/09/22 02/23/24 Unknown History gram/dose oral powder (Miralax) divalproex 500 mg tablet,extended 500 mg PO BID 04/20/22 02/23/24 Unknown History release 24 hr (Depakote ER) sodium phosphates 19 gram-[address] DAILY PRN Constipation 04/23/22 02/23/24 Unknown History gram/118 mL enema (Fleet Enema) aluminum-mag hydroxide-simethicone 30 ml PO Q4H PRN Heartburn 05/11/22 02/23/24 Unknown History 200 mg-200 mg-20 mg/5 mL oral susp dextromethorphan-guaifenesin 10 10 ml PO Q4H PRN Cough/congestion 05/11/22 02/23/24 Unknown History mg-100 mg/5 mL oral syrup (Tussin DM) psyllium 1 packet PO BID 05/11/22 02/23/24 Unknown History guaifenesin 600 mg tablet, 600 mg PO BID 03/09/23 02/23/24 Unknown History extended release 12 hr divalproex 250 mg tablet,extended 250 mg PO BID 02/23/24 02/23/24 Unknown History release 24 hr (Depakote ER) metoprolol succinate 25 mg 25 mg PO BID 02/23/24 02/23/24 Unknown History tablet,extended release 24 hr midodrine 5 mg tablet 5 mg PO TID 02/23/24 02/23/24 Unknown History nystatin 100,000 unit/gram topical 1 appl topical BID 02/23/24 02/23/24 Unknown History powder sennosides 8.6 mg-docusate sodium 1 tab-cap PO DAILY 02/23/24 02/23/24 Unknown History 50 mg tablet sennosides 8.6 mg-docusate sodium 1 tab-cap PO Q24H PRN Constipation 02/23/24 02/23/24 Unknown History 50 mg tablet Physical Exam 2 Vital Signs and Narrative: Vital Signs: Last Vital Signs Temp 104 F H 02/23/24 14:09 Pulse 76 02/23/24 14:52 Resp 18 02/23/24 14:52 BP 123/70 02/23/24 14:52 Pulse Ox 98 02/23/24 14:52 O2 Del Method Nasal Cannula 02/23/24 14:52 O2 Flow Rate 3 02/23/24 14:52 Oxygen Flow Rate 2 02/23/24 14:09 BMI result Body Mass Index 31.4 Alert oriented to person and place not time, poor insight, slow speech, flat affect, expiratory wheezes Results Labs 02/23/24 14:33 02/23/24 14:33 Labs: Laboratory Results - last 24 hr 02/23/24 14:33 MCV 90.1 MCH 30.9 MCHC 34.3 RDW 14.0 Plt Count 88 L MPV 12.9 H Immature Gran % (Auto) 0.6 H Neut % (Auto) 70.1 Lymph % (Auto) 15.9 L [place] % (Auto) 11.7 H Eos % (Auto) 1.3 Baso % (Auto) 0.4 Lymph # (Auto) 0.8 L [place] # (Auto) 0.6 Eos # (Auto) 0.1 Baso # (Auto) 0.0 Abs Immat Gran (auto) 0.03 Absolute Neuts (auto) 3.7 Absolute Nucleated RBC 0.000 Nucleated RBC % (auto) 0.0 Smear Tech's Comments VERIFIED Anion Gap 8 L Estim Creat Clear Calc 102.1 Estimated GFR > 60 Random Glucose 104 Lactic Acid 1.3 Calcium 8.6 Magnesium 1.9 Total Bilirubin 0.5 Direct Bilirubin 0.2 AST 19 ALT 8 Alkaline Phosphatase 51 Troponin I High Sens < 2.7 D Total Protein 6.9 Albumin 3.8 Lipase 7 L Valproic Acid 84.0 Influenza Type A (PCR) NEGATIVE Influenza Type B (PCR) NEGATIVE RSV RNA Qual (PCR) NEGATIVE SARS-CoV-2 RNA (RT-PCR) NEGATIVE Assessment and Plan (1) Sepsis: Qualifiers: Sepsis acute organ dysfunction status: unspecified Sepsis type: sepsis due to unspecified organism Qualified Code(s): A41.9 - Sepsis, unspecified organism Status: Acute Plan 59M PMH neuroleptic malignant syndrome, intellectual delay, hypertension, dysphagia, presented from [facility] with fevers and altered mental status Sepsis and acute hypoxic respiratory failure and acute metabolic encephalopathy due to pneumonia Ceftriaxone and azithromycin, follow up cultures, speech eval Wean O2 as tolerated Intellectual delay and mood disorder lyrica, depakote DVT prophylaxis with Lovenox Full Code Given sepsis, hypoxia and encephalopathy expected require at least 2 midnights inpatient Quality Stroke Does the patient have a stroke diagnosis?: No VTE Prior VTE?: No VTE Risk Level:: Medical - moderate - high VTE Device Contraindication: Treatment Not Indicated VTE Drug Contraindication: N/A - Med Ordered
[2024-02-23] MEDS: metroNIDAZOLE/NS 500 MG/100 ML PIGGYBACK 100 MG IV (16:02)
--- NOTE | 2024-02-23 16:07 | PHA.MEDREC ---
Addendum entered by Salma Hurtado RPh 02/23/24 16:34: reviewed by [facility] Original Note: Pharmacy Consult ? Medication Reconciliation Pharmacy has completed the medication reconciliation. [facility].
[2024-02-23 16:37] LABS: Appearance Urine Clear; Color Urine Yellow; Glucose Urine UA Negative (Negative); Leukocyte Esterase Urine Negative (Negative); Nitrite Urine Negative (Negative); Specific Gravity - Urine 1.015 (1.005-1.025); Urine Blood Negative (Negative); Urine Ketones Trace mg/dL (Negative); Urine Protein Negative (Neg-Trace)
[2024-02-23] MEDS: Metoprolol Succinate ER 25 MG TAB.ER.24H PO (20:12)
[2024-02-23] MEDS: Divalproex Sodium ER 250 MG TAB.ER.24H PO (20:12)
[2024-02-23] MEDS: guaiFENesin LA 600 MG TAB.ER.12H PO (20:12)
[2024-02-23] MEDS: Divalproex Sodium ER 500 MG TAB.ER.24H PO (20:12)
[2024-02-23] MEDS: Psyllium seed 3.7 GM PACKET PO (20:13)
[2024-02-23] MEDS: polyethylene glycoL 3350 17 GM POWD.PACK PO (20:13)
[2024-02-23] MEDS: Pregabalin 100 MG CAPSULE PO (20:13)
[2024-02-23] MEDS: Midodrine HCl 5 MG TABLET PO (20:13)
[2024-02-23] MEDS: diazePAM 2 MG TABLET PO (20:13)
[2024-02-23] MEDS: 0.9 % Sodium Chloride Flush 3 ML SYRINGE IVFLUSH (20:13)
[2024-02-24 03:23] VITALS: BP 115/62; PULSE 71; RESP 18; TEMP 37.4; O2SAT 97
--- NOTE | 2024-02-24 06:10 | PC.ADMIT ---
Patient admitted to med/tele from ED at approx. 1930. Patient is alert and oriented to person. His sister Elizabeth called [phone] for an update. She expresses that he is not mentally challenged but has neuroleptic malignant syndrome. Patient is able to give yes or no answers but it takes him some time and he has alot of difficulty expressing his needs. He asks for help but cant express what he needs. Last night it was mostly that he was incontinent of urine. He remembers names. He has difficultly using the call jones and will cry out. High falls risk and camera in room. Patient had quite a few medications with mirilax and fiber that patient took all at once and he ended up vomiting about an hour after medication administration. Patients skin is warm to touch but not febrile. His lower extremities are puffy, +2 non pitting edema Feet and hands are contracted. He has use of his hands with limited rom. Tremulous and has difficulty holding a cup and drinking it himself without spilling it. He was very anxious at the beginning of the shift, couldnt express why, but ended up settling down on his own. RN let patients sister speak to him on a cell phone, RN had to hold it up to his ear for him, patient cannot do it himself. He is a total care patient. Turned and repositioned for skin care and comfort. Patient arrived with a condom catheter that he ended up ripping off. He wears a brief at his nursing facility. His skin is intact. VSS. Lungs have fine crackles throughout. He is on 2L n/c. VSS, no bowel movement for us last night. Bed alarm on for safety. No acute events. Will continue to monitor.
[2024-02-24 08:00] VITALS: BP 135/89; PULSE 89; RESP 17; TEMP 37.6; O2SAT 94
[2024-02-24 08:35] LABS: Hemoglobin 14.2 g/dl (14.0-18.0); PLT CLUMP 1
[2024-02-24 08:37] LABS: Hematocrit 41.7 % (42.0-52.0); Mean Corpuscular HGB Conc 34.1 g/dl (31.0-36.0); Mean Corpuscular Hemoglobin 31.1 pg (27.0-33.0); Mean Corpuscular Volume 91.2 fL (80.0-98.0); Mean Platelet Volume 11.2 fL (9.4-12.4); Red Blood Count 4.57 X10*6/uL (4.60-5.80); Red Cell Distribution Width 13.8 % (11.0-16.0)
--- NOTE | 2024-02-24 08:40 | P.PNIM_ITS ---
Subjective Subjective Date of Service: 02/24/24 Interval History: feeling better Physical Exam 2 Vital Signs: Vital Signs: Last Vital Signs Temp 99.4 F 02/24/24 03:23 Pulse 71 02/24/24 03:23 Resp 18 02/24/24 03:23 BP 115/62 02/24/24 03:23 Pulse Ox 97 02/24/24 03:23 O2 Del Method Nasal Cannula 02/24/24 03:23 O2 Flow Rate 2 02/24/24 03:23 Oxygen Flow Rate 2 02/23/24 14:09 BMI result Body Mass Index 31.4 Alert oriented to person and place not time, poor insight, slow speech, flat affect, expiratory wheezes Objective Data Active Medications Acetaminophen (Acetaminophen 325 Mg Tablet) 650 mg PO Q6H PRN PRN Reason: Pain, Mild 1-3,fever,headache Bisacodyl (Bisacodyl 10 Mg Supp.Rect) 10 mg SD Q24H PRN PRN Reason: Constipation Calcium Carbonate (Calcium Carbonate 750 Mg Tab.Chew) 750 mg PO Q4H PRN PRN Reason: Heartburn Ceftriaxone Sodium (Ceftriaxone Sodium 1 Gm Vial) 1 gm IVPUSH Q24H [facility] Diazepam (Diazepam 2 Mg Tablet) 2 mg PO TID [facility] Last Admin: 02/23/24 20:13 Dose: 2 mg Documented By: JUANY Divalproex Sodium (Divalproex Sodium Er 250 Mg Tab.Er.24h) 250 mg PO BID [facility] Last Admin: 02/23/24 20:12 Dose: 250 mg Documented By: JUANY Divalproex Sodium (Divalproex Sodium Er 500 Mg Tab.Er.24h) 500 mg PO BID [facility] Last Admin: 02/23/24 20:12 Dose: 500 mg Documented By: JUANY Enoxaparin Sodium (Enoxaparin Sodium 40 Mg/0.4 Ml Syringe) 40 mg SUBCUT Q24H [facility] Guaifenesin (Guaifenesin La 600 Mg Tab.Er.12h) 600 mg PO BID [facility] Last Admin: 02/23/24 20:12 Dose: 600 mg Documented By: JUANY Guaifenesin/Dextromethorphan (Guaifenesin Dm 100/10/5 Ml 5 Ml Syrup) 10 ml PO Q4H PRN PRN Reason: Cough/congestion Azithromycin 500 mg/ Sodium (Chloride) 250 mls @ 125 mls/hr IV Q24H [facility] Ibuprofen (Ibuprofen 800 Mg Tablet) 800 mg PO Q8H PRN PRN Reason: moderate/severe pain Magnesium Hydroxide (Milk Of Magnesia 30 Ml Oral.Susp) 30 ml PO DAILY PRN PRN Reason: Constipation Melatonin (Melatonin 3 Mg Tablet) 6 mg PO BEDTIME PRN PRN Reason: Insomnia Metoprolol Succinate (Metoprolol Succinate Er 25 Mg Tab.Er.24h) 25 mg PO BID [facility]; Protocol Last Admin: 02/23/24 20:12 Dose: 25 mg Documented By: JUANY Midodrine (Midodrine Hcl 5 Mg Tablet) 5 mg PO TID@0800,1300,1800 [facility] Last Admin: 02/23/24 20:13 Dose: 5 mg Documented By: JUANY Polyethylene Glycol (Polyethylene Glycol 3350 17 Gm Powd.Pack) 17 gm PO BID [facility] Last Admin: 02/23/24 20:13 Dose: 17 gm Documented By: JUANY Pregabalin (Pregabalin 100 Mg Capsule) 100 mg PO TID [facility] Last Admin: 02/23/24 20:13 Dose: 100 mg Documented By: JUANY Psyllium Hydrophilic Mucilloid (Psyllium Seed 3.7 Gm Packet) 3.7 gm PO BID [facility] Last Admin: 02/23/24 20:13 Dose: 3.7 gm Documented By: JUANY Senna/Docusate Sodium (Sennosides/Docusate Sodium Tablet) 1 tab PO Q24H PRN PRN Reason: Constipation Senna/Docusate Sodium (Sennosides/Docusate Sodium Tablet) 1 tab PO DAILY [facility] Sodium Biphosphate/Sodium Phosphate (Sodium Phosphate,[place]-Dibasic 133 Ml Enema) 133 ml [place] DAILY PRN PRN Reason: Constipation Sodium Chloride (0.9 % Sodium Chloride Flush 3 Ml Syringe) 3 ml IVFLUSH QSHIFT [facility] Last Admin: 02/23/24 20:13 Dose: 3 ml Documented By: JUANY Vitamin D (Cholecalciferol (Vitamin D3) 25 Mcg Tablet) 50 mcg PO DAILY [facility] Labs 02/23/24 14:33 02/23/24 14:33 Labs: Laboratory Results - last 24 hr 02/23/24 02/23/24 14:33 16:30 MCV 90.1 MCH 30.9 MCHC 34.3 RDW 14.0 Plt Count 88 L MPV 12.9 H Immature Gran % (Auto) 0.6 H Neut % (Auto) 70.1 Lymph % (Auto) 15.9 L Prentiss % (Auto) 11.7 H Eos % (Auto) 1.3 Baso % (Auto) 0.4 Lymph # (Auto) 0.8 L Prentiss # (Auto) 0.6 Eos # (Auto) 0.1 Baso # (Auto) 0.0 Abs Immat Gran (auto) 0.03 Absolute Neuts (auto) 3.7 Absolute Nucleated RBC 0.000 Nucleated RBC % (auto) 0.0 Smear Tech's Comments VERIFIED Anion Gap 8 L Estim Creat Clear Calc 102.1 Estimated GFR > 60 Random Glucose 104 Lactic Acid 1.3 Calcium 8.6 Magnesium 1.9 Total Bilirubin 0.5 Direct Bilirubin 0.2 AST 19 ALT 8 Alkaline Phosphatase 51 Troponin I High Sens < 2.7 D Total Protein 6.9 Albumin 3.8 Lipase 7 L Urine Color Yellow Urine Appearance Clear Urine pH 7.0 Ur Specific Bow 1.015 Urine Protein Negative Urine Glucose (UA) Negative Urine Ketones Trace Urine Blood Negative Urine Nitrite Negative Ur Leukocyte Esterase Negative Valproic Acid 84.0 Influenza Type A (PCR) NEGATIVE Influenza Type B (PCR) NEGATIVE RSV RNA Qual (PCR) NEGATIVE SARS-CoV-2 RNA (RT-PCR) NEGATIVE Assessment and Plan (1) Hypertension: Status: Acute Plan 59M PMH neuroleptic malignant syndrome, intellectual delay, hypertension, dysphagia, presented from [facility] with fevers and altered mental status Sepsis and acute hypoxic respiratory failure and acute metabolic encephalopathy due to pneumonia mental status back to baseline Ceftriaxone and azithromycin, follow up cultures, speech eval Wean O2 as tolerated Intellectual delay and mood disorder lyrica, depakote DVT prophylaxis with Lovenox Full Code reason for continued hospitalization:monitoring for fevers, weaning o2, cultures Quality Stroke Does the patient have a stroke diagnosis?: No VTE Prior VTE?: No VTE Risk Level:: Medical - moderate - high VTE Device Contraindication: Treatment Not Indicated VTE Drug Contraindication: N/A - Med Ordered
[2024-02-24 08:46] LABS: Platelet Count 61 X10*3/uL (160-400); White Blood Count 6.5 X10*3/uL (4.8-10.8)
[2024-02-24 09:05] LABS: Anion Gap 15 (12-20); Blood Urea Nitrogen 14 mg/dL (9-16); Calcium 8.6 mg/dL (8.4-10.2); Carbon Dioxide 27 mmol/L (22-29); Chloride 104 mmol/L (96-108); Estimated Glomerular Filt Rate > 60; Glucose Random 102 mg/dL (60-115); Potassium 3.6 mmol/L (3.3-5.1); Sodium 142 mmol/L (135-145)
[2024-02-24] MEDS: Midodrine HCl 5 MG TABLET PO ×3 (09:06→17:55)
[2024-02-24] MEDS: Cholecalciferol (Vitamin D3) 25 MCG TABLET 50 MCG PO (09:06)
[2024-02-24] MEDS: Metoprolol Succinate ER 25 MG TAB.ER.24H PO ×2 (09:06→20:43)
[2024-02-24] MEDS: Divalproex Sodium ER 250 MG TAB.ER.24H PO ×2 (09:06→20:43)
[2024-02-24] MEDS: diazePAM 2 MG TABLET PO ×3 (09:06→20:43)
[2024-02-24] MEDS: Pregabalin 100 MG CAPSULE PO ×3 (09:06→20:43)
[2024-02-24] MEDS: Divalproex Sodium ER 500 MG TAB.ER.24H PO ×2 (09:06→20:43)
[2024-02-24] MEDS: guaiFENesin LA 600 MG TAB.ER.12H PO ×2 (09:06→20:43)
[2024-02-24] MEDS: Sennosides/Docusate Sodium TABLET 1 TAB PO (09:06)
[2024-02-24] MEDS: polyethylene glycoL 3350 17 GM POWD.PACK PO ×2 (09:11→20:42)
[2024-02-24] MEDS: Psyllium seed 3.7 GM PACKET PO ×2 (09:11→20:42)
[2024-02-24] MEDS: Enoxaparin Sodium 40 MG/0.4 ML SYRINGE SUBCUT (09:14)
[2024-02-24] MEDS: 0.9 % Sodium Chloride Flush 3 ML SYRINGE IVFLUSH ×3 (09:23→23:03)
[2024-02-24] MEDS: cefTRIAXone sodium 1 GM VIAL IVPUSH (15:14)
[2024-02-24 15:30] VITALS: BP 117/61; PULSE 64; RESP 18; TEMP 36.7; O2SAT 98
--- NOTE | 2024-02-24 16:03 | MHC.CM.PN ---
PT IS A LTC RESIDENT OF [facility] HE USES A WALKER AT BL AND REQUIRES ASSISTANCE WITH CARE HCP AND MOLST ON FILE PCP: GIORGIO NGUYEN VM MESSAGE LEFT FOR HCP: ELSIE NGUYEN AT NUMBER ON FILE DCP: RETURN TO SNF VIA BLS
[2024-02-24] MEDS: Azithromycin 500 MG in 0.9 % Sodium Chloride 250 ML 125 MG IV (16:10)
[2024-02-24 19:20] VITALS: BP 132/72; PULSE 70; RESP 18; TEMP 36.6; O2SAT 96
[2024-02-24 20:43] VITALS: BP 130/68; PULSE 72
[2024-02-25] VITALS (10 sets, daily range): BP systolic 103–132; BP diastolic 56–89; PULSE 64–101; RESP 18–20; TEMP 36.3–37.6; O2SAT 89–96
[2024-02-25] MEDS: Melatonin 3 MG TABLET 6 MG PO (02:16)
[2024-02-25] MEDS: Midodrine HCl 5 MG TABLET PO ×3 (08:56→18:05)
[2024-02-25] MEDS: Pregabalin 100 MG CAPSULE PO ×3 (08:56→20:22)
[2024-02-25] MEDS: Cholecalciferol (Vitamin D3) 25 MCG TABLET 50 MCG PO (08:57)
[2024-02-25] MEDS: Psyllium seed 3.7 GM PACKET PO ×2 (08:57→20:22)
[2024-02-25] MEDS: Enoxaparin Sodium 40 MG/0.4 ML SYRINGE SUBCUT (08:57)
[2024-02-25] MEDS: polyethylene glycoL 3350 17 GM POWD.PACK PO ×2 (08:57→20:22)
[2024-02-25] MEDS: guaiFENesin LA 600 MG TAB.ER.12H PO ×2 (08:57→20:22)
[2024-02-25] MEDS: Metoprolol Succinate ER 25 MG TAB.ER.24H PO ×2 (08:57→20:22)
[2024-02-25] MEDS: Divalproex Sodium ER 500 MG TAB.ER.24H PO ×2 (08:57→20:22)
[2024-02-25] MEDS: Sennosides/Docusate Sodium TABLET 1 TAB PO (08:57)
[2024-02-25] MEDS: Divalproex Sodium ER 250 MG TAB.ER.24H PO ×2 (08:57→20:22)
[2024-02-25] MEDS: diazePAM 2 MG TABLET PO ×3 (08:57→20:22)
[2024-02-25] MEDS: 0.9 % Sodium Chloride Flush 3 ML SYRINGE IVFLUSH ×3 (08:58→20:23)
--- NOTE | 2024-02-25 09:12 | HO.PM.IMPN ---
Subjective Subjective Date of Service: 02/25/24 Interval History: feeling better, hungry Physical Exam Vital Signs: Vital Signs: Last Vital Signs Temp 99.0 F 02/25/24 08:00 Pulse 77 02/25/24 08:00 Resp 18 02/25/24 08:00 BP 114/59 L 02/25/24 08:00 Pulse Ox 95 02/25/24 08:00 O2 Del Method Nasal Cannula 02/25/24 08:00 O2 Flow Rate 2 02/25/24 08:00 Oxygen Flow Rate 2 02/23/24 14:09 BMI result Body Mass Index 31.4 Alert oriented to person and place not time, poor insight, slow speech, flat affect, expiratory wheezes Objective Data Active Medications Acetaminophen (Acetaminophen 325 Mg Tablet) 650 mg PO Q6H PRN PRN Reason: Pain, Mild 1-3,fever,headache Bisacodyl (Bisacodyl 10 Mg Supp.Rect) 10 mg [place] Q24H PRN PRN Reason: Constipation Calcium Carbonate (Calcium Carbonate 750 Mg Tab.Chew) 750 mg PO Q4H PRN PRN Reason: Heartburn Ceftriaxone Sodium (Ceftriaxone Sodium 1 Gm Vial) 1 gm IVPUSH Q24H [facility] Last Admin: 02/24/24 15:14 Dose: 1 gm Documented By: LUCAS Diazepam (Diazepam 2 Mg Tablet) 2 mg PO TID [facility] Last Admin: 02/25/24 08:57 Dose: 2 mg Documented By: FELICIANO Divalproex Sodium (Divalproex Sodium Er 250 Mg Tab.Er.24h) 250 mg PO BID [facility] Last Admin: 02/25/24 08:57 Dose: 250 mg Documented By: FELICIANO Divalproex Sodium (Divalproex Sodium Er 500 Mg Tab.Er.24h) 500 mg PO BID [facility] Last Admin: 02/25/24 08:57 Dose: 500 mg Documented By: FELICIANO Enoxaparin Sodium (Enoxaparin Sodium 40 Mg/0.4 Ml Syringe) 40 mg SUBCUT Q24H [facility] Last Admin: 02/25/24 08:57 Dose: 40 mg Documented By: FELICIANO Guaifenesin (Guaifenesin La 600 Mg Tab.Er.12h) 600 mg PO BID [facility] Last Admin: 02/25/24 08:57 Dose: 600 mg Documented By: FELICIANO Guaifenesin/Dextromethorphan (Guaifenesin Dm 100/10/5 Ml 5 Ml Syrup) 10 ml PO Q4H PRN PRN Reason: Cough/congestion Azithromycin 500 mg/ Sodium (Chloride) 250 mls @ 125 mls/hr IV Q24H [facility] Last Infusion: 02/24/24 18:15 Dose: Infused Documented By: LUCAS Ibuprofen (Ibuprofen 800 Mg Tablet) 800 mg PO Q8H PRN PRN Reason: moderate/severe pain Magnesium Hydroxide (Milk Of Magnesia 30 Ml Oral.Susp) 30 ml PO DAILY PRN PRN Reason: Constipation Melatonin (Melatonin 3 Mg Tablet) 6 mg PO BEDTIME PRN PRN Reason: Insomnia Last Admin: 02/25/24 02:16 Dose: 6 mg Documented By: RUDDY Metoprolol Succinate (Metoprolol Succinate Er 25 Mg Tab.Er.24h) 25 mg PO BID [facility]; Protocol Last Admin: 02/25/24 08:57 Dose: 25 mg Documented By: FELICIANO Midodrine (Midodrine Hcl 5 Mg Tablet) 5 mg PO TID@0800,1300,1800 [facility] Last Admin: 02/25/24 08:56 Dose: 5 mg Documented By: FELICIANO Polyethylene Glycol (Polyethylene Glycol 3350 17 Gm Powd.Pack) 17 gm PO BID [facility] Last Admin: 02/25/24 08:57 Dose: 17 gm Documented By: FELICIANO Pregabalin (Pregabalin 100 Mg Capsule) 100 mg PO TID [facility] Last Admin: 02/25/24 08:56 Dose: 100 mg Documented By: FELICIANO Psyllium Hydrophilic Mucilloid (Psyllium Seed 3.7 Gm Packet) 3.7 gm PO BID [facility] Last Admin: 02/25/24 08:57 Dose: 3.7 gm Documented By: FELICIANO Senna/Docusate Sodium (Sennosides/Docusate Sodium Tablet) 1 tab PO Q24H PRN PRN Reason: Constipation Senna/Docusate Sodium (Sennosides/Docusate Sodium Tablet) 1 tab PO DAILY [facility] Last Admin: 02/25/24 08:57 Dose: 1 tab Documented By: FELICIANO Sodium Biphosphate/Sodium Phosphate (Sodium Phosphate,[place]-Dibasic 133 Ml Enema) 133 ml [place] DAILY PRN PRN Reason: Constipation Sodium Chloride (0.9 % Sodium Chloride Flush 3 Ml Syringe) 3 ml IVFLUSH QSHIFT [facility] Last Admin: 02/25/24 08:58 Dose: 3 ml Documented By: FELICIANO Vitamin D (Cholecalciferol (Vitamin D3) 25 Mcg Tablet) 50 mcg PO DAILY [facility] Last Admin: 02/25/24 08:57 Dose: 50 mcg Documented By: FELICIANO Labs 02/24/24 08:22 02/24/24 08:22 Microbiology Microbiology Results: Microbiology 02/23/24 14:34 Blood Culture - Preliminary Blood - Venous No growth after 24 hours. 02/23/24 14:33 Blood Culture - Preliminary Blood - Venous No growth after 24 hours. Assessment and Plan (1) Hypertension: Status: Acute Plan 59M PMH neuroleptic malignant syndrome, intellectual delay, hypertension, dysphagia, presented from [facility] with fevers and altered mental status Sepsis and acute hypoxic respiratory failure and acute metabolic encephalopathy due to pneumonia mental status back to baseline Ceftriaxone and azithromycin, follow up cultures, speech eval Wean O2 as tolerated Intellectual delay and mood disorder lula conklin DVT prophylaxis with Lovenox Full Code reason for continued hospitalization:monitoring for fevers, weaning o2, cultures Quality Stroke Does the patient have a stroke diagnosis?: No VTE Prior VTE?: No VTE Risk Level:: Medical - moderate - high VTE Device Contraindication: Treatment Not Indicated VTE Drug Contraindication: N/A - Med Ordered
[2024-02-25] MEDS: cefTRIAXone sodium 1 GM VIAL IVPUSH (15:00)
--- NOTE | 2024-02-25 16:06 | MHC.CM.PN ---
pe rounds pt not medically ready for dc plan remians return to [facility]
--- NOTE | 2024-02-25 16:34 | MHC.SL.SWA ---
Speech Pathologist Impression: Pt presents with adequate oropharyngeal coordination Risk of Aspiration Due to: Reduced Cognition Dysphagia Diet Status: Regular with thins, supervision and assist with set up, self feeding Liquid Consistency and Strategies for Safe Swallow: Liquid Intake Recommendation: Thin Liquid Intake Strategies: Solid Food Consistency: Dietary Recommendations: Regular Additional Modifications to Solid Foods: Pt able to hold containers, utensils but needs supervision and assistance Oral Medication Intake: Whole with Puree Please contact the pharmacy regarding appropriate crushable or liquid drug formulations that are available whenever modified delivery is recommended. Compensatory Strategies and Precautions to be Taken for Safe Swallow: Sitting Upright (90 deg) Small Bites and Sips Alternate Liquids/Solids Rate of Ingestion Change Supervision While Eating and Drinking for Safe Swallow: Supervision Foods to Avoid: Swallowing Recommended Treatments: Compens. Strategy Educat. Recommendation for Speech: Comment: Frequency/Duration: Date Range for Service Req: Timeline to reassess: Used Car Lot Attendant Clinican/Clinical Fellow: No Supervisory Statement: I have reviewed and agree with the student/clinical fellow's documentation: N/A Speech Language Pathologist: Katya Garcia M.S., CCC-FIXED WING PILOT
[2024-02-25] MEDS: Azithromycin 500 MG in 0.9 % Sodium Chloride 250 ML 125 MG IV (16:58)
[2024-02-26] MEDS: Melatonin 3 MG TABLET 6 MG PO (00:25)
[2024-02-26 03:58] VITALS: BP 113/60; PULSE 61; RESP 18; TEMP 36.2; O2SAT 98
[2024-02-26 07:35] VITALS: BP 122/67; PULSE 52; RESP 16; TEMP 36.4; O2SAT 95
[2024-02-26 08:44] VITALS: BP 113/60; PULSE 62; O2SAT 92
[2024-02-26] MEDS: Divalproex Sodium ER 500 MG TAB.ER.24H PO (08:47)
[2024-02-26] MEDS: guaiFENesin LA 600 MG TAB.ER.12H PO (08:47)
[2024-02-26] MEDS: Cholecalciferol (Vitamin D3) 25 MCG TABLET 50 MCG PO (08:48)
[2024-02-26] MEDS: Metoprolol Succinate ER 25 MG TAB.ER.24H PO (08:48)
[2024-02-26] MEDS: Sennosides/Docusate Sodium TABLET 1 TAB PO (08:48)
[2024-02-26] MEDS: Divalproex Sodium ER 250 MG TAB.ER.24H PO (08:48)
[2024-02-26] MEDS: Psyllium seed 3.7 GM PACKET PO (08:48)
[2024-02-26] MEDS: Midodrine HCl 5 MG TABLET PO ×2 (08:48→12:55)
[2024-02-26] MEDS: Enoxaparin Sodium 40 MG/0.4 ML SYRINGE SUBCUT (08:49)
[2024-02-26] MEDS: diazePAM 2 MG TABLET PO (08:49)
[2024-02-26] MEDS: polyethylene glycoL 3350 17 GM POWD.PACK PO (08:49)
[2024-02-26] MEDS: 0.9 % Sodium Chloride Flush 3 ML SYRINGE IVFLUSH (08:49)
--- NOTE | 2024-02-26 09:00 | P.DS_ITS ---
DS: Providers Provider Date of Service: 02/26/24 Date of admission: 02/23/24 15:47 Date of discharge: 02/26/24 Primary care physician: Augustine Dan, DS: Diagnosis Discharge Diagnosis (1) Hypertension: Status: Acute DS: Summary Hospital Course Hospital Course: from initial hpi: 59M PMH neuroleptic malignant syndrome, intellectual delay, hypertension, dysphagia, presented from [facility] with fevers and altered mental status. Symptoms began on day of presentation. Was noted to have a fever of 102. Was sleepier and difficult to understand, in ED found to be septic with fever and tachycardia, chest x-ray with right lower lobe pneumonia. Patient is mentation improved as fever improved, denies any symptoms. hospital course: This, acute hypoxic respiratory failure, acute metabolic encephalopathy due to pneumonia possibly due to aspiration. Was treated with ceftriaxone azithromycin. Cultures were negative. Mental status returned to baseline sepsis resolved and patient was weaned off oxygen. Was seen by speech therapy recommended continuing aspiration precautions with regular solids and thin liquids. On discharge we will continue 5 more days of cefuroxime and azithromycin. For intellectual delay and mood disorder was continued on Lyrica and Depakote. Patient was feeling back to baseline and will be discharged back to [facility]. Time Attestation Discharge Coordination Time (in mins): 33 Quality: Safe Use of Opioids Does Pt have an Active Cancer Diagnosis on the Problem List?: No Quality: Stroke Does the patient have a stroke diagnosis?: No Physical Exam Vital Signs: Vital Signs: Last Vital Signs Temp 97.5 F 02/26/24 07:35 Pulse 62 02/26/24 08:44 Resp 16 02/26/24 07:35 BP 113/60 02/26/24 08:44 Pulse Ox 92 02/26/24 08:44 O2 Del Method Room Air 02/26/24 08:44 O2 Flow Rate 2 02/26/24 07:35 Oxygen Flow Rate 2 02/23/24 14:09 BMI result Body Mass Index 31.4 Alert oriented to person and place not time, poor insight, slow speech, flat affect, lungs clear DS: Data Data Completed and Pending Completed studies during hospitalization [Text1]: Procedures Insertion of Infusion Device into Superior Vena Cava, Percutaneous Approach (03/09/23) Introduction of Vasopressor into Central Vein, Percutaneous Approach (03/09/23) Supplement Abdominal Wall with Synthetic Substitute, Open Approach (03/15/22) Ultrasonography of Superior Vena Cava, Guidance (03/09/23) Labs on day of discharge: Preliminary micro results at discharge 02/23/24 14:34 Blood Culture - Preliminary Blood - Venous No growth after 48 hours. 02/23/24 14:33 Blood Culture - Preliminary Blood - Venous No growth after 48 hours. Discharge Plan Discharge Anticipated Discharge Date/Time: 02/26/24 08:58 Patient Disposition: Xfer SNF Discharge Diagnosis: pna Referrals: Augustine Dan DO [Primary Care Provider] - 1 Week Discharge Medications: New cefuroxime axetil 500 mg tablet 500 mg PO BID Qty: 10 0RF azithromycin 500 mg tablet 500 mg PO DAILY 5 Days Qty: 5 0RF Continued (DME) abdominal binder 2xl See Rx Instructions .Route .MEDSUPPLY Qty: 1 0RF Rx Instructions: Pt to wear binder during daytime hours - may remove for shower diazepam 2 mg Tablet 2 mg PO TID melatonin 1 mg Tablet 1 mg PO BEDTIME ibuprofen 800 mg Tablet 800 mg PO Q8H PRN (Reason: moderate/severe pain) acetaminophen 500 mg Tablet 500 mg PO Q6H MDD 3g PRN (Reason: FEVER/MILD PAIN) bisacodyl 10 mg Suppository 10 mg ID Q24H PRN (Reason: Constipation) pregabalin 100 mg Capsule 100 mg PO TID cholecalciferol (vitamin D3) 25 mcg (1,000 unit) Tablet 50 mcg PO DAILY Fleet Enema 19-7 gram/118 mL Enema 118 ml ID DAILY PRN (Reason: Constipation) Rx Instructions: use only if bisacodyl suppository is ineffective lactulose 10 gram/15 mL (15 mL) Solution 30 ml PO DAILY polyethylene glycol 3350 [Miralax] 17 gram/dose powder 17 g PO BID Rx Instructions: dilute in 6-8 ounces of fluid sennosides-docusate sodium 8.6-50 mg Tablet 1 tab-cap PO Q24H PRN (Reason: Constipation) sennosides-docusate sodium 8.6-50 mg Tablet 1 tab-cap PO DAILY midodrine 5 mg Tablet 5 mg PO TID@0900,1400,1800 Rx Instructions: do not give last dose of day after 6PM or within 4 hrs of bedtime metoprolol succinate 25 mg Tablet Extended Release 24 Hr 25 mg PO BID Protocol: Hold for SBP/HR < HOLD for SBP < : 100 HOLD for HR < : 60 nystatin 100,000 unit/gram Powder 1 appl TOPICAL BID Rx Instructions: to groin and groin creases divalproex [Depakote ER] 250 mg Tablet Extended Release 24 Hr 250 mg PO BID Rx Instructions: with 500 mg = 750mg bid psyllium Packet 1 packet PO BID dextromethorphan-guaifenesin [Tussin DM] 10-100 mg/5 mL Syrup 10 ml PO Q4H PRN (Reason: Cough/congestion) alum-mag hydroxide-simeth 200-200-20 mg/5 mL Suspension 30 ml PO Q4H PRN (Reason: Heartburn) Rx Instructions: administer between meals and at bedtime guaifenesin 600 mg Tablet Extended Release 12hr 600 mg PO BID Rx Instructions: take with plenty of water divalproex [Depakote ER] 500 mg tablet extended release 24 hr 500 mg PO BID Rx Instructions: with 250 mg = 750mg bid Discharge Orders: Discharge Order (Routine); Ordered 02/26/24 Ordered By: Greg Mckeon Diet: Advance to usual diet Activity on Discharge: As tolerated Stand Alone Forms: Patient Portal Discharge page Print Language: German Care Plan Goals: recovery Health Concerns: pna Plan of Treatment: 5 more days [place] Assessment: see above
[2024-02-26] MEDS: Pregabalin 100 MG CAPSULE PO (09:01)
--- NOTE | 2024-02-26 11:45 | MHC.SL.SWA ---
Speech Pathologist Impression: Risk of Aspiration Risk of Aspiration Due to: Reduced Cognition Dysphasia Diet Status: No Change Liquid Consistency and Strategies for Safe Swallow: Liquid Intake Recommendation: Thin Liquid Intake Strategies: Small Sips Solid Food Consistency: Dietary Recommendations: Regular Additional Modifications to Solid Foods: Patient tolerating regular/thin diet. Recommend 1:1 supervision with cues as needed: take one bite at a time, chew food well, swallow food that's in mouth before talking or taking another bite, take small sips, alternate bites/sips, remain upright during PO intake. Oral Medication Intake: Whole with Puree Please contact the pharmacy regarding appropriate crushable or liquid drug formulations that are available whenever modified delivery is recommended. Compensatory Strategies and Precautions to be Taken for Safe Swallow: Sitting Upright (90 deg) Small Bites and Sips Alternate Liquids/Solids Rate of Ingestion Change Supervision While Eating and Drinking for Safe Swallow: Total Supervision (1:1) Swallowing Recommended Treatments: Compens. Strategy Educat. Recommendation for Speech: D/C Recooperer Clinican/Clinical Fellow: No Supervisory Statement: I have reviewed and agree with the student/clinical fellow's documentation: N/A Speech Language Pathologist: Marylou Kearney M.A., CCC-PAYROLL COORDINATOR
--- NOTE | 2024-02-26 12:00 | MHC.CM.PN ---
Patient discharged today. He will return to [facility] today. JANINE has cleared the patient to return today. S is booked for 1pm orange picker.
[2024-02-26 12:51] VITALS: BP 108/58; PULSE 60; RESP 18; TEMP 36.9; O2SAT 91
--- NOTE | 2024-02-26 13:03 | PC.NURSE ---
Sister Fatemeh Moseley called for update, this Nurse called her back but no reply, voice message left to call back the Hospital on her convenience.
== END 2024-02-26 13:25 | disposition skilled nursing facility (03) | DRG 720 ==
LOC: HO.ED 15:31 → HO.EDOVER 15:56 → HO.S3 16:44
PROVIDERS: Admitting Provider Internal Medicine; Emergency Provider Emergency Medicine; PCP Hospitalist; Visit Provider Internal Medicine
DX: A41.9 Sepsis, unspecified organism (principal); J96.01 Acute respiratory failure with hypoxia; J69.0 Pneumonitis due to inhalation of food and vomit; G93.41 Metabolic encephalopathy; F43.10 Post-traumatic stress disorder, unspecified; K59.09 Other constipation; N31.9 Neuromuscular dysfunction of bladder, unspecified; G40.909 Epilepsy, unspecified, not intractable, without status epilepticus; F39 Unspecified mood [affective] disorder; F81.9 Developmental disorder of scholastic skills, unspecified; Z20.822 Contact with and (suspected) exposure to COVID-19; Z79.899 Other long term (current) drug therapy
CPT/HCPCS: 0241U; 36415; 71045; 80048; 80076; 80164; 81003; 83605; 83690; 83735; 84484; 85025; 85027; 87040; 92526; 92610; 93005; 99285; J0131; J0456; J0696; J1650; J1836; J7120

== ENCOUNTER → 2024-02-23 14:08 | Outpatient (BNV) | payer MEDICAID, SELFPAY | PROVIDERS: Admitting Provider Internal Medicine; Emergency Provider Emergency Medicine; Visit Provider Internal Medicine Cardiovascular Disease | DX: R53.1 Weakness (principal) | CPT/HCPCS: 93010 ==

== ENCOUNTER → 2024-02-23 14:09 | Outpatient (BNV) | payer MEDICAID, SELFPAY | PROVIDERS: Admitting Provider Internal Medicine; Emergency Provider Emergency Medicine; Visit Provider Radiology Diagnostic Radiology | DX: R06.89 Other abnormalities of breathing (principal); J98.4 Other disorders of lung | CPT/HCPCS: 71045 ==

== ENCOUNTER → 2024-02-23 15:47 | Outpatient (BNV) | payer MEDICAID, SELFPAY | PROVIDERS: Admitting Provider Internal Medicine; Emergency Provider Emergency Medicine; Visit Provider Internal Medicine | DX: I10 Essential (primary) hypertension (principal); J96.01 Acute respiratory failure with hypoxia | CPT/HCPCS: 99223; 99232; 99239 ==

== ENCOUNTER 2024-03-20 14:35 | Inpatient (IN) | payer MEDICAID, SELFPAY ==
[2024-03-20] VITALS (10 sets, daily range): BP systolic 86–139; BP diastolic 46–118; PULSE 46–91; RESP 16–20; TEMP 36.6–36.7; O2SAT 92–98; BMI 29.5
--- NOTE | ~2024-03-20 | CT_ITS ---
CLINICAL HISTORY: hypotension, ?pna, hypoxia, ?PE CT angiography chest with contrast. 3D Postprocessing. Comparison: CR - XR CHEST 1V - 03/20/24 17:[address]/REG/SR - CT ANGIO CHEST PE PROTOCOL - 03/09/23 22:15 EST Findings: Mild cardiomegaly. Unremarkable thoracic aorta and great vessels. No aneurysm. No acute pulmonary embolus. The visualized thyroid and mediastinum are unremarkable. Moderate cardiomegaly. There is patchy ground-glass opacity in the left upper lobe. There is right base atelectasis. There is asymmetric elevation of the right hemidiaphragm, Which appears chronic. The upper abdomen is unremarkable. The bones are intact. IMPRESSION: 1. No pulmonary emboli. 2. Left upper lobe opacities concerning for pneumonia. This document has been electronically signed by: Abiodun Cast MD on 03/20/2024 21:00:08
--- NOTE | ~2024-03-20 | XR_ITS ---
EXAMINATION: XR CHEST CLINICAL INFORMATION: gen weakness COMPARISON: 02/23/2024, 03/14/2023. TECHNIQUE: Frontal view of the chest was obtained. FINDINGS: The cardiac, hilar, and mediastinal contours are normal. Lungs demonstrate very subtle increased opacity in the left midlung, possible pneumonia. Right lung is clear. No pneumothorax or effusion. No focal osseous or soft tissue abnormality. Degenerative changes shoulder joints and spine. XR/XR chest 1V IMPRESSION: Increased subtle opacity left midlung, pneumonia is a consideration. Radiographic follow-up with a lateral projection may be of benefit to further elucidate. Electronically signed by: Kal Downey MD 03/20/2024 04:49 PM EST RP
--- NOTE | ~2024-03-20 | XR_ITS ---
CLINICAL HISTORY: lateral view 1 view chest x-ray Comparison: CR/MD/SR - XR CHEST 1V - 03/20/24 16:06 EST CR - XR CHEST 1V - 02/23/24 14:13 EST Findings: No pleural effusion or pneumothorax. Lung volumes are slightly low. Normal size heart. No acute fracture. No focal infiltrate seen on the lateral view. IMPRESSION: 1. No acute findings. Hypoventilatory chest. This document has been electronically signed by: Abiodun Cast MD on 03/20/2024 18:08:46
--- NOTE | 2024-03-20 15:12 | ED_ITS ---
HPI - Weakness General Chief complaint: General Medical Stated complaint: WEAK,LETHARGIC,FALL THIS AM FROM SNF PER EMS Time Seen by Provider: 03/20/24 14:56 Source: patient, EMS, RN notes reviewed and old records reviewed Mode of arrival: EMS History of Present Illness ED Provider: Selma Frances PA-C HPI Narrative: 59-year-old male with a past medical history of neuroleptic malignant syndrome, intellectual delay, hypertension, dysphagia, recent aspiration PNA discharged from our facility 02/26/24, presented to ED from [facility] s/p witnessed fall at facility [facility] without head strike or LOC. Patient states he felt lightheaded/generalized weakness/fatigue and then fell. Denies anticoagulation use. Reports cough. Denies other complaints at present including headache, neck/back pain, CP/SOB, abdominal pain, nausea/vomiting. MD Complaint: generalized weakness Related Data Home Medications ?Medication ?Instructions ?Recorded ?Confirmed diazepam 2 mg tablet 2 mg PO TID 11/17/19 02/23/24 melatonin 1 mg tablet 1 mg PO BEDTIME 11/17/19 02/23/24 acetaminophen 500 mg tablet 500 mg PO Q6H PRN FEVER/MILD PAIN 02/13/20 02/23/24 bisacodyl 10 mg rectal suppository 10 mg NJ Q24H PRN Constipation 02/13/20 02/23/24 cholecalciferol (vitamin D3) 25 50 mcg PO DAILY 02/13/20 02/23/24 mcg (1,000 unit) tablet ibuprofen 800 mg tablet 800 mg PO Q8H PRN moderate/severe 02/13/20 02/23/24 pain pregabalin 100 mg capsule 100 mg PO TID 02/13/20 02/23/24 lactulose 10 gram/15 mL (15 mL) 30 ml PO DAILY Constipation 03/09/22 02/23/24 oral solution polyethylene glycol 3350 17 17 g PO BID 03/09/22 02/23/24 gram/dose oral powder (Miralax) divalproex 500 mg tablet,extended 500 mg PO BID 04/20/22 02/23/24 release 24 hr (Depakote ER) sodium phosphates 19 gram-7 118 ml NJ DAILY PRN Constipation 04/23/22 02/23/24 gram/118 mL enema (Fleet Enema) aluminum-mag hydroxide-simethicone 30 ml PO Q4H PRN Heartburn 05/11/22 02/23/24 200 mg-200 mg-20 mg/5 mL oral susp dextromethorphan-guaifenesin 10 10 ml PO Q4H PRN Cough/congestion 05/11/22 02/23/24 mg-100 mg/5 mL oral syrup (Tussin DM) psyllium 1 packet PO BID 05/11/22 02/23/24 guaifenesin 600 mg tablet, 600 mg PO BID 03/09/23 02/23/24 extended release 12 hr divalproex 250 mg tablet,extended 250 mg PO BID 02/23/24 02/23/24 release 24 hr (Depakote ER) metoprolol succinate 25 mg 25 mg PO BID 02/23/24 02/23/24 tablet,extended release 24 hr midodrine 5 mg tablet 5 mg PO TID@0900,1400,1800 02/23/24 02/23/24 nystatin 100,000 unit/gram topical 1 appl topical BID 02/23/24 02/23/24 powder sennosides 8.6 mg-docusate sodium 1 tab-cap PO DAILY 02/23/24 02/23/24 50 mg tablet sennosides 8.6 mg-docusate sodium 1 tab-cap PO Q24H PRN Constipation 02/23/24 02/23/24 50 mg tablet Previous Rx's ?Medication ?Instructions ?Recorded abdominal binder #1 ea 03/21/22 azithromycin 500 mg tablet 500 mg PO DAILY 5 days #5 tabs 02/26/24 cefuroxime axetil 500 mg tablet 500 mg PO BID #10 tabs 02/26/24 Allergies Allergy/AdvReac Type Severity Reaction Status Date / Time aripiprazole [From ABILIFY] Allergy Severe Involuntary Verified 03/20/24 15:21 Spasms droperidol [From INAPSINE] Allergy Severe Involuntary Verified 03/20/24 15:21 Spasms haloperidol [From HALDOL] Allergy Severe Involuntary Verified 03/20/24 15:21 Spasms prochlorperazine Allergy Severe Involuntary Verified 03/20/24 15:21 [From COMPAZINE] Spasms promethazine [From PHENERGAN] Allergy Severe Involuntary Verified 03/20/24 15:21 Spasms sulfamethoxazole Allergy Severe Anaphylaxis Verified 03/20/24 15:21 [From BACTRIM] trimethoprim [From BACTRIM] Allergy Severe Anaphylaxis Verified 03/20/24 15:21 Review of Systems 2 Review of Systems: Yes all other systems are reviewed and are negative Constitutional: Constitutional: Reports as per [facility] Past Medical History Attestation statement: The following information was validated with the patient. Source: old records reviewed Medical History Neurogenic bladder Constipation Resides in fdc facility History of GI bleed Seizure disorder Urinary incontinence Osteoarthritis Rectal prolapse Cognitive impairment Hx of deep venous thrombosis Thrombocytopenia Bilateral cataracts Personal history of COVID-19 Diverticular disease Flexion contractures OCD (obsessive compulsive disorder) History of hemodialysis Depression Neuroleptic malignant syndrome Epilepsy Deformity of left hand Generalized anxiety disorder Major depressive disorder Mild cognitive impairment Hypertension Surgical History History of incisional hernia repair (03/15/22) History of repair of rectocele Hx of appendectomy Hx of colonoscopy Family History Family History Sister Breast CA, Onset Age: 51 Ovarian ca, Onset Age: 55 Father Prostate CA, Onset Age: 70 Mother Colorectal cancer, Onset Age: 39 Kidney carcinoma, Onset Age: 67 Maternal Grandmother Colorectal cancer, Onset Age: 70 Maternal Aunt Colorectal cancer Social History Social History Household Members: None Household Members Other:: lives at [facility] Housing: Assisted Living Facility Housing Other:: [facility] Are you a primary healthcare administration internship to a significant other at home: No Do you presently have visiting nurse or other home services: Yes Unable to assess alcohol history related to: Unable to respond Alcohol intake: never Comment: [facility] [place] Patient Tobacco Use Status: Never used Tobacco e-Cigarette/Vaping Use: Never Used Second Hand Smoke Exposure: No Use of substances other than those prescribed or required for medical reasons: No Advance Directives: Yes Advance Directives on File: Yes Advance Directives Date on File: 11/21/19 service: No Current occupational status: disabled Physical Exam 2 Vital Signs: Vital Signs: Last Vital Signs Temp 98.0 F 03/20/24 20:39 Pulse 62 03/20/24 20:59 Resp 16 03/20/24 20:59 BP 123/98 H 03/20/24 20:59 Pulse Ox 97 03/20/24 20:59 O2 Del Method Room Air 03/20/24 20:59 O2 Flow Rate 3 03/20/24 20:39 BMI result Body Mass Index 29.5 Const: General: cooperative, healthy appearing and no acute distress O rientation/consciousness: patient oriented x3 Limitations: no limitations HEENT: Head: Yes normal to inspection and Yes atraumatic Ears: hearing grossly normal bilaterally General nose exam: Normal external nose present Face and sinus: Yes normal facial exam Eyes: General: appearance normal, both eyes and all related structures EOM: EOMs intact bilaterally Neck: Neck: Yes normal visual inspection and Yes no meningeal signs Resp: Effort & Inspection: normal respiratory effort and no respiratory distress Auscultation: rhonchi lower bilaterally Cardio: Rate: regular rate Heart sounds: S1 normal heart sound present and S2 normal heart sound present GI: Inspection: Yes normal to inspection Palpation (GI): Soft to palpation, nontender, no guarding and not rigid Skin: Rashes: no rashes Wounds: no wounds Neuro: General: patient oriented x3, tone normal and no meningeal signs C ranial nerves: Yes CN's II-XII intact bilaterally Extrem: General: Yes normal to inspection Course Course Course Narrative: -EKG today showing AFib, rate controlled, unclear if this is new or old, however do not see history of AFib and patient's chart. Also spoke with patient's nurse, Augustine at [facility] and he denied patient having history of AFib. He is not currently anticoagulated per med list. >> patient is fall risk. Beau Vasc score = 4 recommending anticoagulation however benefit vs risk to be discussed. Will consult with Dr. Dan from [facility] >1620--spoke with Dr. Dan who recommended initiating patient on Eliquis > if workup today unremarkable can be discharged back to [facility], otherwise recommend admission with echo -repeat EKG confirming A fib vs flutter -mild leukopenia 3.3. BUN acute on chronically elevated. Troponin negative. XR chest 1V IMPRESSION: Increased subtle opacity left midlung, pneumonia is a consideration. Radiographic follow-up with a lateral projection may be of benefit to further elucidate. > will obtain lateral view for further eval and blood cultures. XR chest 1V IMPRESSION: 1. No acute findings. Hypoventilatory chest. -BUN 450 > clinically not fluid overloaded -1805--patient's blood pressure down trending, 70s / 50s, alert and oriented however lethargic. Infection now suspected. Patient's nurse recorded episode of desaturation to 88% on RA > suspect from increased lethargy however will obtain CT chest to rule out PE/underlying pneumonia, & give empiric cefepime. Additional IVF and albumin ordered. Will monitor closely. CT angio chest PE protocol IMPRESSION: 1. No pulmonary emboli. 2. Left upper lobe opacities concerning for pneumonia. > 2100--BP stabilized, hypoxia resolved. plan to admit for further management. Case discussed with hospitalist, Dr. Snyder who accepted admission Medications Administered Discontinued Medications Generic Name Dose Route Start Last Admin Trade Name Freq PRN Reason Stop Dose Admin Albuterol/Ipratropium 3 ml 03/20/24 16:13 03/20/24 16:15 Albuterol/Iprat 2.5/0.5mg 3 Ml Ampul.Neb INHALE 03/20/24 16:14 3 ml ONCE ONE Administration Sodium Chloride 500 mls @ 999 mls/hr 03/20/24 15:30 03/20/24 17:10 Ns IV 03/20/24 16:00 Infused .Q31M MAIA Infusion Sodium Chloride 1,000 mls @ 999 mls/hr 03/20/24 17:15 03/20/24 19:40 Ns IV 03/20/24 18:15 Infused .Q1H1M MAIA Infusion Sodium Chloride 1,000 mls @ 999 mls/hr 03/20/24 18:00 03/20/24 19:40 Ns IV 03/20/24 19:00 Infused .Q1H1M MAIA Infusion Albumin Human 50 mls @ 100 mls/hr 03/20/24 18:05 03/20/24 19:17 Kedbumin 25 % IV 03/20/24 18:34 Infused ONCE ONE Infusion Cefepime HCl 2 gm in 50 mls @ 100 mls/hr 03/20/24 18:12 03/20/24 19:15 Maxipime IV 03/20/24 18:41 Infused ONCE ONE Infusion Iohexol 100 ml 03/20/24 19:47 03/20/24 19:47 Iohexol 350 Mg/Ml 100 Ml Infus..Btl IV 03/20/24 19:48 65 ml ONCE ONE Administration Medical Decision Making Medical Decision Making [facility] Narrative: [birth year]54- 59-year-old male with a past medical history of neuroleptic malignant syndrome, intellectual delay, hypertension, dysphagia, recent aspiration PNA discharged from our facility 02/26/24, presented to ED from [facility] s/p witnessed fall at facility [facility] without head strike or LOC. Patient states he felt lightheaded/generalized weakness/fatigue and then fell. On exam vital signs stable, NAD, nontoxic appearing, A&O x3, no focal deficits, lungs with bibasilar rhonchi, no evidence of trauma, abdomen soft and nontender. Concern for viral illness vs metabolic abnormalities. Rule out infectious etiology including pneumonia/bronchitis. Low suspicion for ICH/fractures or ACS. Low suspicion for severe sepsis Plan: EKG, labs, UA, CXR, re-evaluate Please refer to course for remaining clinical decision making, interpretation of labs/imaging results, and discussions with consultants and/or family members. Differential Diagnosis Differential Diagnoses: The differential diagnosis associated with the presentation includes As above Admission/Observation Consideration of admission/observation: Escalation of care including admission/observation considered Consult Healthcare Provider Management of the patient was discussed with: Slip Box Changer (Dr. Dan) Lab Data [facility] Lab Attestation statement: I reviewed the patient's lab results. 03/20/24 15:55 03/20/24 15:55 Labs: Lab Results 03/20/24 03/20/24 03/20/24 Range/Units 15:55 17:17 18:39 WBC 3.3 L (4.8-10.8) X10*3/uL RBC 4.67 (4.60-5.80) X10*6/uL Hgb 14.4 (14.0-18.0) g/dl Hct 44.6 (42.0-52.0) % MCV 95.5 (80.0-98.0) fL MCH 30.8 (27.0-33.0) pg MCHC 32.3 (31.0-36.0) g/dl RDW 14.7 (11.0-16.0) % Plt Count 83 L D (160-400) X10*3/uL MPV 11.9 (9.4-12.4) fL Immature Gran % (Auto) 0.6 H (0.0-0.4) % Neut % (Auto) 47.9 (45-73) % Lymph % (Auto) 32.9 (20-40) % Bates % (Auto) 14.0 H (2-11) % Eos % (Auto) 4.0 (0-4) % Baso % (Auto) 0.6 (0-2) % Lymph # (Auto) 1.1 L (1.2-4.9) X10*3/uL Bates # (Auto) 0.5 (0.1-1.2) X10*3/uL Eos # (Auto) 0.1 (0.0-0.4) X10*3/uL Baso # (Auto) 0.0 (0.0-0.2) X10*3/uL Abs Immat Gran (auto) 0.02 (0.00-0.03) X10*3/uL Absolute Neuts (auto) 1.6 L (2.0-8.3) x10*3/uL Absolute Nucleated RBC 0.000 (0.0-0.012) X10*3/uL Nucleated RBC % (auto) 0.0 (0.0-0.2) /100WBC PT 11.6 (10.9-12.4) SEC INR 1.0 (0.9-1.1) APTT 32.8 (26.0-36.8) SEC VBG pH (7.32-7.43) VBG pCO2 mmHg VBG pO2 mmHg VBG HCO3 (22-26) mmol/L VBG O2 Saturation % VBG Base Excess mmol/L Sodium 144 (135-145) mmol/L Potassium 4.5 D (3.3-5.1) mmol/L Chloride 106 (96-108) mmol/L Carbon Dioxide 32 H (22-29) mmol/L Anion Gap 11 L (12-20) BUN 25 H (9-16) mg/dL Creatinine 0.83 (0.5-1.4) mg/dL Estim Creat Clear Calc 113.2 Estimated GFR > 60 Random Glucose 92 (60-115) mg/dL Lactic Acid 0.9 (0.5-2.0) mmol/L Calcium 8.3 L (8.4-10.2) mg/dL Magnesium 2.2 (1.6-2.6) mg/dL Total Bilirubin 0.5 (0.0-1.0) mg/dL Direct Bilirubin 0.2 (0.0-0.5) mg/dL AST 14 (5-37) U/L ALT 6 (0-40) U/L Alkaline Phosphatase 34 L (39-117) U/L Troponin I High Sens < 2.7 (<3.5-35.0) ng/L B-Natriuretic Peptide 450 H (<100) pg/mL Total Protein 6.3 L (6.5-8.0) g/dL Albumin 3.2 L (3.5-5.0) g/dL Urine Color Dark Yellow Urine Appearance Clear Urine pH 5.5 (5.0-9.0) Ur Specific [place] 1.025 (1.005-1.025) Urine Protein Trace (Neg-Trace) mg/dL Urine Glucose (UA) Negative (Negative) mg/dL Urine Ketones Negative (Negative) mg/dL Urine Blood Negative (Negative) Urine Nitrite Negative (Negative) Ur Leukocyte Esterase Negative (Negative) Influenza Type A (PCR) NEGATIVE (Negative) Influenza Type B (PCR) NEGATIVE (Negative) RSV RNA Qual (PCR) NEGATIVE (Negative) SARS-CoV-2 RNA (RT-PCR) NEGATIVE (Negative) 03/20/24 Range/Units 18:42 WBC (4.8-10.8) X10*3/uL RBC (4.60-5.80) X10*6/uL Hgb (14.0-18.0) g/dl Hct (42.0-52.0) % MCV (80.0-98.0) fL MCH (27.0-33.0) pg MCHC (31.0-36.0) g/dl RDW (11.0-16.0) % Plt Count (160-400) X10*3/uL MPV (9.4-12.4) fL Immature Gran % (Auto) (0.0-0.4) % Neut % (Auto) (45-73) % Lymph % (Auto) (20-40) % Bates % (Auto) (2-11) % Eos % (Auto) (0-4) % Baso % (Auto) (0-2) % Lymph # (Auto) (1.2-4.9) X10*3/uL Bates # (Auto) (0.1-1.2) X10*3/uL Eos # (Auto) (0.0-0.4) X10*3/uL Baso # (Auto) (0.0-0.2) X10*3/uL Abs Immat Gran (auto) (0.00-0.03) X10*3/uL Absolute Neuts (auto) (2.0-8.3) x10*3/uL Absolute Nucleated RBC (0.0-0.012) X10*3/uL Nucleated RBC % (auto) (0.0-0.2) /100WBC PT (10.9-12.4) SEC INR (0.9-1.1) APTT (26.0-36.8) SEC VBG pH 7.38 (7.32-7.43) VBG pCO2 60 mmHg VBG pO2 28 mmHg VBG HCO3 35 H (22-26) mmol/L VBG O2 Saturation 46.0 % VBG Base Excess 8.6 mmol/L Sodium (135-145) mmol/L Potassium (3.3-5.1) mmol/L Chloride (96-108) mmol/L Carbon Dioxide (22-29) mmol/L Anion Gap (12-20) BUN (9-16) mg/dL Creatinine (0.5-1.4) mg/dL Estim Creat Clear Calc Estimated GFR Random Glucose (60-115) mg/dL Lactic Acid (0.5-2.0) mmol/L Calcium (8.4-10.2) mg/dL Magnesium (1.6-2.6) mg/dL Total Bilirubin (0.0-1.0) mg/dL Direct Bilirubin (0.0-0.5) mg/dL AST (5-37) U/L ALT (0-40) U/L Alkaline Phosphatase (39-117) U/L Troponin I High Sens (<3.5-35.0) ng/L B-Natriuretic Peptide (<100) pg/mL Total Protein (6.5-8.0) g/dL Albumin (3.5-5.0) g/dL Urine Color Urine Appearance Urine pH (5.0-9.0) Ur Specific [place] (1.005-1.025) Urine Protein (Neg-Trace) mg/dL Urine Glucose (UA) (Negative) mg/dL Urine Ketones (Negative) mg/dL Urine Blood (Negative) Urine Nitrite (Negative) Ur Leukocyte Esterase (Negative) Influenza Type A (PCR) (Negative) Influenza Type B (PCR) (Negative) RSV RNA Qual (PCR) (Negative) SARS-CoV-2 RNA (RT-PCR) (Negative) Independent Interpretation I performed an independent interpretation of an: EKG (My interpretation: EKG AFib rate of 72. T-wave inversion now evident in anterior leads. No STEMI. AFib has replaced sinus rhythm when compared to prior) and Plain X-Ray Interpretation: EKG #2 : My interpretation EKG AFib rate of 66, some saw tooth changes appreciated. No significant change when compared to prior/earlier today. No STEMI. Radiology Impression Discussion of test interpretation with radiology: I have reviewed the radiologist's reading. Independent Historian Clinical information obtained from an independent historian. History obtained from or confirmed by: EMS External Record Review External record reviewed: Inpatient record, Office record, Outpatient record, Prior outpatient labs, Prior outpatient radiology, Primary care record and Outside ED record Tests considered The following testing was considered but not selected: As above Prescription Management I considered prescription management with: Antibiotic and Other Chronic Conditions Patient?s care impacted by: Hypertension and Other Social Determinants Patient?s care significantly limited by Social Determinants of Health including: Inadequate housing, Problems related to primary support group and Other Social Determinant of Health Critical Care Time Critical Care Time Critical Care Time: Yes Total Critical Care Time: 60 Attestation: I have personally provided critical care time exclusive of time spent on separately billable procedures. Time includes review of lab data, radiology results, discussion with consultants, and monitoring for potential decompensation. Intervention performed as documented. Discharge Plan Discharge Clinical Impression: Pneumonia, New onset a-fib, Hypotension Patient Disposition: Admitted As Inpatient
--- NOTE | 2024-03-20 15:25 | ECG_ITS ---
Test Reason : WEAKNESS Blood Pressure : */* mmHG Vent. Rate : 72 BPM Atrial Rate : * BPM P-R Int : * ms QRS Dur : 90 ms QT Int : 394 ms P-R-T Axes : * -10 11 degrees QTcB Int : 431 ms Atrial fibrillation Abnormal ECG When compared with ECG of 23-Feb-2024 15:00, Atrial fibrillation has replaced Sinus rhythm T wave inversion now evident in Anterior leads Referred By: Selma Frances Electronically Signed By: ROSITA FREGOSO MD
[2024-03-20] MEDS: 0.9 % Sodium Chloride 500 ML 999 ML IV (15:54)
[2024-03-20 16:06] LABS: MANUAL DIFF FLAG NO
--- OUTSIDE RECORDS SUMMARY | 2024-03-20 16:09 | XMS_ITS | Encounter Summary ---
Author Organization [employer] Address [address] [place] [address] Care Team Providers Care Continuous Improvement Director Name Role Phone Unavailable Primary Care Provider Unavailabl e Encounter Details Date Type Department Care Team (Latest Contact Info) Description 06/09/2020 Abstract C CONVERSIONS Dental, Provider, DDS Social History Tobacco Use Types Packs/Day Years Used Date Smoking Tobacco: Never Assessed Sex and Gender Information Value Date Recorded Sex Assigned at Male 12/05/2021 10:35 AM EDT Legal Sex Male 10:35 AM EDT Gender Identity Male 12/05/2021 10:35 AM EDT Sexual Orientation Straight 12/05/2021 10 :35 AM EDT documented as of this encounter Plan of Treatment Not on file documented as of this encounter Visit Diagnoses Not on filedocumented in this encounter
--- OUTSIDE RECORDS SUMMARY | 2024-03-20 16:09 | XMS_ITS | Encounter Summary ---
Author Organization [employer] Address [address] [place] [address] Care Team Providers Care Nuclear Plant Construction Worker Name Role Phone Unavailable Primary Care Provider Unavailabl e Encounter Details Date Type Department Care Team (Late st Contact Info) Description 01/21/[address] [facility] [address] [place] [address] Augustine Dan MD [address] [place] [address] [address] [place] Major depressive disorder, recurrent, unspecified (CMS/HCC) Social History Tobacco Use Types Packs/Day Years Used Date Smoking Tobacco: Never Assessed Sex and Gender Information Value Date Recorded Sex Assigned at Not on file Legal Sex Male 6:57 AM EST Gender Identity Not on file Sexual Orientation Not on file documented as of this encounter Plan of Treatment Not on file documented as of this encounter Procedures Procedure Name Priority Date/Time Associated Diagnosis Comments CBC WITH AUTO DIFFERENTIAL Routine 01/21/2024 6:25 AM EST Major depressive disorder, recurrent, unspecified (CMS/HCC) CBC AND DIFFERENTIAL Routine 01/21/2024 6:25 AM EST Major depressive disorder, recurrent, unspecified (CMS/HCC) VALPROIC ACID LEVEL, TOTAL Routine 01/21/2024 6:25 AM EST Major depressive disorder, recurrent, unspecified (CMS/HCC) documented in this encounter Results * (ABNORMAL) CBC auto differential (01/21/2024 6:25 AM EST) WBC 4.9 4.8 - 10.8 [facility] LAB HEMETOLOGY METHOD 01/21/2024 7:29 AM EST [facility] RBC 5.10 4.50 - 5.50 M/[facility] LAB HEMETOLOGY METHOD 01/21/2024 7:29 AM [facility] Hemoglobin 15.5 13.5 - 17.5 g/dL LAB HEMETOLOGY METHOD 01/21/2024 7:29 AM [facility] Hematocrit 48.0 42.0 - 54.0 % LAB HEMETOLOGY METHOD 01/21/2024 7:29 AM [facility] MCV 93.9 79.0 - 98.0 FL LAB HEMETOLOGY METHOD 01/21/2024 7:29 AM [facility] MCH 30.3 27.0 - 32.0 pcg LAB HEMETOLOGY METHOD 01/21/2024 7:29 AM [facility] MCHC 32.3 32.0 - 37.0 g/dL LAB HEMETOLOGY METHOD 01/21/2024 7:29 AM [facility] RDW 13.5 11.0 - 15.0 % LAB HEMETOLOGY METHOD 01/21/2024 7:29 AM [facility] Platelets 118(L) 130 - 400 K/mcL LAB HEMETOLOGY METHOD 01/21/2024 7:29 AM [facility] MPV 11.3(H) 7.0 - 11.0 FL LAB HEMETOLOGY METHOD 01/21/2024 7:29 AM [facility] NRBC 0.0 <1.0 % LAB HEMETOLOGY METHOD 01/21/2024 7:29 AM [facility] NRBC Absolute 0.00 <0.10 K/mcL LAB HEMETOLOGY METHOD 01/21/2024 7:29 AM [facility] Neutrophils Relative 37.6 % LAB HEMETOLOGY METHOD 01/21/2024 7:29 AM [facility] Lymphocytes Relative 47.7 % LAB HEMETOLOGY METHOD 01/21/2024 7:29 AM [facility] Monocytes Relative 10.2 % LAB HEMETOLOGY METHOD 01/21/2024 7:29 AM [facility] Eosinophils Relative 3.7 % LAB HEMETOLOGY METHOD 01/21/2024 7:29 AM [facility] Basophils Relative 0.6 % LAB HEMETOLOGY METHOD 01/21/2024 7:29 AM [facility] Immature Granulocytes Relative 0.2 % LAB HEMETOLOGY METHOD 01/21/2024 7:29 AM [facility] Neutrophils Absolute 1.83 1.50 - 7.00 K/mcL LAB HEMETOLOGY METHOD 01/21/2024 7:29 AM [facility] Lymphocytes Absolute 2.33 1.00 - 5.00 K/mcL LAB HEMETOLOGY METHOD 01/21/2024 7:29 AM [facility] Monocytes Absolute 0.50 0.20 - 1.00 K/mcL LAB HEMETOLOGY METHOD 01/21/2024 7:29 AM EST [facility] Eosinophils Absolute 0.18 0.00 - 0.50 K/mcL LAB HEMETOLOGY METHOD 01/21/2024 7:29 AM [facility] Basophils Absolute 0.03 0.00 - 0.20 K/mcL LAB HEMETOLOGY METHOD 01/21/2024 7:29 AM [facility] Immature Granulocytes Absolute 0.01 0.00 - 0.03 K/mcL LAB HEMETOLOGY METHOD 01/21/2024 7:29 AM [facility] Blood Venous blood specimen / Unknown 01/21/2024 6:25 AM EST 01/21/2024 7:16 AM EST us Augustine Dan MD LAB BLOOD ORDERABLES Final Resul t [facility] [address] [place] [address], * Valproic acid level, total (01/21/2024 6:25 AM EST) Valproic Acid, Total 88 50 - 100 mcg/mL LAB CHEMISTRY METHOD 01/21/2024 7:34 AM EST [facility] Blood Venous blood specimen / Unknown 01/21/2024 6:25 AM EST 01/21/2024 7:16 AM EST us Augustine Dan MD LAB BLOOD ORDERABLES Final Resul t [email or web address] [address] [place] [address], documented in this encounter Visit Diagnoses Diagnosis Major depressive disorder, recurrent, unspecified (CMS/HCC) documented in this encounter
--- OUTSIDE RECORDS SUMMARY | 2024-03-20 16:09 | XMS_ITS | Encounter Summary ---
Author Organization [facility] Address [address] [place] [address] Care Team Providers Care Decal Cutter Name Role Phone Unavailable Primary Care Provider Unavailabl e Encounter Details Date Type Department Care Team (Late st Contact Info) Description 02/08/2024 Lab Requisition [facility] Lab [address] [place] [address] Augustine Dan MD [address] [place] [address] [address] [place], [place] Other ocean transportation intermediary (current) drug therapy Social History Tobacco Use Types Packs/Day Years [...] Procedure Name Priority Date/Time Associated Diagnosis Comments VALPROIC ACID LEVEL, TOTAL Routine 02/08/2024 5:05 AM EST Other ocean transportation intermediary (current) drug therapy documented in this encounter Results * Valproic acid level, total (02/08/2024 5:05 AM EST) Valproic Acid, Total 80 50 - 100 mcg/mL LAB CHEMISTRY METHOD 02/08/2024 6:22 AM EST [facility] Blood Venous blood specimen / Unknown 02/08/2024 5:05 AM EST 02/08/2024 5:55 AM EST us Augustine Dan MD LAB BLOOD ORDERABLES Final Resul t [facility] [address] [place] [address], [place] [phone] documented in this encounter Visit Diagnoses Diagnosis Other ocean transportation intermediary (current) drug therapy documented in this encounter
--- OUTSIDE RECORDS SUMMARY | 2024-03-20 16:09 | XMS_ITS | Encounter Summary ---
Author Organization [facility] Address [address] [place] [address] Care Team Providers Care Combatant Diver Officer Name Role Phone Unavailable Primary Care Provider Unavailabl e Encounter Details Date Type Department Care Team (Late st Contact Info) Description 02/04/[address] [facility] Lab [address] [place] [id number] Augustine Dan MD [address] [place] [address] [address] [place], [place] Dysuria Social History Tobacco Use Types Packs/Day Years [...] Procedure Name Priority Date/Time Associated Diagnosis Comments URINALYSIS WITH REFLEX MICROSCOPIC AND CULTURE Routine 02/04/2024 1:30 PM EST Dysuria [place] URINE CULTURE TUBE Routine 02/04/2024 1:30 PM EST Dysuria URINALYSIS WITH REFLEX MICROSCOPIC AND CULTURE Routine 02/04/2024 1:30 PM EST Dysuria documented in this encounter Results * [place] urine culture tube (02/04/2024 1:30 PM EST) Extra Tube Hold for add-ons. 02/04/2024 7:02 PM EST [facility] Comment:Auto resulted. Urine Urine specimen obtained by clean catch procedure / Unknown 02/04/2024 1:30 PM EST 02/04/2024 5:27 PM EST us Augustine Dan MD LAB URINE ORDERABLES Final Resul t Performing Organization Address City/State/[facility] Co de Phone Number [facility] [address] [place] [address], [place] [phone] * Urinalysis with reflex microscopic and culture (02/04/2024 1:30 PM EST) Specific [place] Urine 1.015 1.003 - 1.030 LAB URINALYSIS - AUTOMATED METHOD 02/04/2024 5:44 PM [facility] pH, Urine 7.5 5.0 - 8.0 pH LAB URINALYSIS - AUTOMATED METHOD 02/04/2024 5:44 PM [facility] Leukocytes, Urine Negative Negative LAB URINALYSIS - AUTOMATED METHOD 02/04/2024 5:44 PM [facility] Nitrite, Urine Negative Negative LAB URINALYSIS - AUTOMATED METHOD 02/04/2024 5:44 PM [facility] Protein, Urine Negative <=Trace mg/dL LAB URINALYSIS - AUTOMATED METHOD 02/04/2024 5:44 PM [facility] Glucose, Urine Negative Negative mg/dL LAB URINALYSIS - AUTOMATED METHOD 02/04/2024 5:44 PM [facility] Ketones, Urine Negative Negative mg/dL LAB URINALYSIS - AUTOMATED METHOD 02/04/2024 5:44 PM [facility] Urobilinogen, Urine 0.2 0.2 - 1.0 mg/dL LAB URINALYSIS - AUTOMATED METHOD 02/04/2024 5:44 PM [facility] Bilirubin, Urine Negative Negative LAB URINALYSIS - AUTOMATED METHOD 02/04/2024 5:44 PM [facility] Blood, Urine Negative Negative LAB URINALYSIS - AUTOMATED METHOD 02/04/2024 5:44 PM [facility] Urine Urine specimen obtained by clean catch procedure / Unknown 02/04/2024 1:30 PM EST 02/04/2024 5:12 PM EST us Augustine Dan MD LAB URINE ORDERABLES Final Resul t [facility] [address] [place] [address], documented in this encounter Visit Diagnoses Diagnosis Dysuria documented in this encounter
--- OUTSIDE RECORDS SUMMARY | 2024-03-20 16:09 | XMS_ITS | Encounter Summary ---
Author Organization [facility] Address [address] [place] [address] Care Team Providers Care Machine Riveter Name Role Phone Unavailable Primary Care Provider Unavailabl e Encounter Details Date Type Department Care Team (Late st Contact Info) Description 01/14/2024 Lab Requisition [facility] Lab [address] [place] [phone] Augustine Dan MD [address] [place] [address] Dr [address] [place], [place] Malignant neuroleptic syndrome Social History Tobacco Use Types Packs/Day Years [...] Procedure Name Priority Date/Time Associated Diagnosis Comments PLATELET COUNT Routine 01/14/2024 12:00 AM EST Malignant neuroleptic syndrome documented in this encounter Results * (ABNORMAL) Platelet count (01/14/2024 12:00 AM EST) Platelets 110(L) 130 - 400 K/mcL LAB HEMETOLOGY METHOD 01/14/2024 7:46 PM EST [facility] MPV 11.4(H) 7.0 - 11.0 FL LAB HEMETOLOGY METHOD 01/14/2024 7:46 PM EST [facility] Blood Venous blood specimen / Unknown 01/14/2024 01/14/2024 6:53 PM EST us Augustine Dan MD LAB BLOOD ORDERABLES Final Resul t [facility] [address] [place] [address], documented in this encounter Visit Diagnoses Diagnosis Malignant neuroleptic syndrome Neuroleptic malignant syndrome documented in this encounter
--- OUTSIDE RECORDS SUMMARY | 2024-03-20 16:09 | XMS_ITS | Encounter Summary ---
Author Organization [facility] Address [address] [place] [address] Care Team Providers Care Reaming Machine Operator For Plastic Name Role Phone Unavailable Primary Care Provider Unavailabl e Encounter Details Date Type Department Care Team (Late st Contact Info) Description 02/05/2024 Lab Requisition [facility] [address] [facility] [place] [address] Augustine Dan MD [address] [place] [address] [address] [place] Other technician terminal and repeater (current) drug therapy Social History Tobacco Use [...] Procedure Name Priority Date/Time Associated Diagnosis Comments SST - GOLD Routine 02/05/2024 6:20 AM EST Other technician terminal and repeater (current) drug therapy PREGABALIN Routine 02/05/2024 6:20 AM EST Other technician terminal and repeater (current) drug therapy LEVETIRACETAM LEVEL Routine 02/05/2024 6 :20 AM EST Other [facility] (current) drug therapy COMPLETE BLOOD COUNT Routine 02/05/2024 6:20 AM EST Other [facility] (current) drug therapy AMMONIA Routine 02/05/2024 6:20 AM EST Other [facility] (current) drug therapy VALPROIC ACID LEVEL, TOTAL Routine 02/05/2024 6:20 AM EST Other technician terminal and repeater (current) drug therapy COMPREHENSIVE METABOLIC PANEL Routine 02/05/2024 6:20 AM EST Other [facility] (current) drug therapy documented in this encounter Results * Valproic acid level, total (02/05/2024 6:20 AM EST) Valproic Acid, Total 92 50 - 100 mcg/mL LAB CHEMISTRY METHOD 02/05/2024 7:30 PM EST [facility] Blood Venous blood specimen / Unknown 02/05/2024 6:20 AM EST 02/05/2024 7:31 AM EST us Augustine Dan MD LAB BLOOD ORDERABLES Final Resul t Performing Organization Address [facility]/ZIP Co de Phone Number [facility] [address] [place] [address], [place] [phone] * SST tube (02/05/2024 6:20 AM EST) Extra Tube Hold for add-ons. 02/05/2024 9:01 AM EST [facility] Comment:Auto resulted. Blood Venous blood specimen / Unknown 02/05/2024 6:20 AM EST 02/05/2024 7:31 AM EST us Augustine Dan MD LAB BLOOD ORDERABLES Final Resul t Performing Organization Address [facility]/ZIP Co de Phone Number [facility] [address] [place] [address], [place] [phone] * Pregabalin (02/05/2024 6:20 AM EST) Pregabalin 2.5 ug/mL 02/08/2024 4:05 PM EST [facility] Comment: Therapeutic and toxic ranges have not been established. Expected steady state pregabalin concentrations in patients taking recommended daily dosages: ??up to 10 ug/mL. This test was developed and its performance characteristics determined by [facility]. It has not been cleared or approved by the Food and Drug Administration. Blood Venous blood specimen / Unknown 02/05/2024 6:20 AM EST 02/05/2024 7:25 AM EST Narrative [facility] - 02/08/2024 4:05 PM EST Performed at: ??01 - [employer] [address] [place] [address] ??[phone] Maintenance Parts Technician: Monique Gerber [facility], Phone: ??[phone] us Augustine Dan MD LAB BLOOD ORDERABLES Final Resul t Performing Organization Address [facility] de Phone Number [email or web address] * Levetiracetam level (02/05/2024 6:20 AM EST) Levetiracetam <1.0 3.0 - 60.0 ug/mL 02/11/2024 7:53 AM EST [facility] Comment: Steady state trough serum or plasma levels following doses of 1000 to 3000 mg/Day: ??3 to 37 ug/mL. The same dosage regimen will typically result in peak levels of 10 to 60 ug/mL, at approximately 1.5 hours post dose. If applicable, any drug confirmation testing reported here was developed and the performance characteristics determined by [facility]. This confirmation testing has not been cleared or approved by the FDA. The laboratory is regulated under CLIA as qualified to perform high-complexity testing. This test is used for patient testing purposes. It should not be regarded as investigational or for research. Test performed at [facility], [address] [facility], [place], [place] ??[address] ? [phone] Alicia Mclain MD, PhD - Demurrage Clerk Blood Venous blood specimen / Unknown 02/05/2024 6:20 AM EST 02/05/2024 7:25 AM EST us Augustine Dan MD LAB BLOOD ORDERABLES Final Resul t Performing Organization Address [facility] Co de Phone Number [facility] [address] [place] [address] * (ABNORMAL) Ammonia (02/05/2024 6:20 AM EST) Ammonia 39(H) 11 - 35 mcmol/L LAB CHEMISTRY METHOD 02/05/2024 7:55 AM [facility] Blood Venous blood specimen / Unknown 02/05/2024 6:20 AM EST 02/05/2024 7:25 AM EST us Augustine Dan MD LAB BLOOD ORDERABLES Final Resul t [facility] [address] [place] [address], * (ABNORMAL) Complete blood count (02/05/2024 6:20 AM EST) WBC 3.9(L) 4.8 - 10.8 K/mcL LAB HEMETOLOGY METHOD 02/05/2024 7:52 AM [facility] RBC 4.90 4.50 - 5.50 M/mcL LAB HEMETOLOGY METHOD 02/05/2024 7:52 AM [facility] Hemoglobin 14.8 13.5 - 17.5 g/dL LAB HEMETOLOGY METHOD 02/05/2024 7:52 AM [facility] Hematocrit 44.4 42.0 - 54.0 % LAB HEMETOLOGY METHOD 02/05/2024 7:52 AM [facility] MCV 91.2 79.0 - 98.0 FL LAB HEMETOLOGY METHOD 02/05/2024 7:52 AM [facility] MCH 30.4 27.0 - 32.0 pcg LAB HEMETOLOGY METHOD 02/05/2024 7:52 AM [facility] MCHC 33.3 32.0 - 37.0 g/dL LAB HEMETOLOGY METHOD 02/05/2024 7:52 AM [facility] RDW 13.4 11.0 - 15.0 % LAB HEMETOLOGY METHOD 02/05/2024 7:52 AM [facility] Platelets 111(L) 130 - 400 K/mcL LAB HEMETOLOGY METHOD 02/05/2024 7:52 AM EST [facility] MPV 11.6(H) 7.0 - 11.0 FL LAB HEMETOLOGY METHOD 02/05/2024 7:52 AM EST [facility] NRBC 0.0 <1.0 % LAB HEMETOLOGY METHOD 02/05/2024 7:52 AM EST [facility] NRBC Absolute 0.00 <0.10 K/mcL LAB HEMETOLOGY METHOD 02/05/2024 7:52 AM EST [facility] Blood Venous blood specimen / Unknown 02/05/2024 6:20 AM EST 02/05/2024 7:25 AM EST us Augustine Dan MD LAB BLOOD ORDERABLES Final Resul t [facility] [address] [place] [address], * (ABNORMAL) Comprehensive metabolic panel (02/05/2024 6:20 AM EST) Sodium 138 133 - 145 mmol/L LAB CHEMISTRY METHOD 02/05/2024 8:23 AM [facility] Potassium 4.0 3.5 - 5.5 mmol/L LAB CHEMISTRY METHOD 02/05/2024 8:23 AM [facility] Chloride 103 96 - 110 mmol/L LAB CHEMISTRY METHOD 02/05/2024 8:23 AM [facility] CO2 31 21 - 32 mmol/L LAB CHEMISTRY METHOD 02/05/2024 8:23 AM [facility] Anion Gap 4 3 - 11 LAB CHEMISTRY METHOD 02/05/2024 8:23 AM [facility] Glucose 85 70 - 100 mg/dL LAB CHEMISTRY METHOD 02/05/2024 8:23 AM [facility] BUN 21 5 - 25 mg/dL LAB CHEMISTRY METHOD 02/05/2024 8:23 AM [facility] Creatinine 0.84 0.70 - 1.30 mg/dL LAB CHEMISTRY METHOD 02/05/2024 8:23 AM [facility] eGFR 100 >=60 mL/min/1. 73m2 LAB CHEMISTRY METHOD 02/05/2024 8:23 AM [facility] Comment:Calculation based on the??Chronic Kidney Disease Epidemiology Collaboration (CKD-EPI) equation refit??without adjustment for race. BUN/Creatinine Ratio 25.0 LAB CHEMISTRY METHOD 02/05/2024 8:23 AM [facility] Calcium 9.0 8.5 - 10.5 mg/dL LAB CHEMISTRY METHOD 02/05/2024 8:23 AM [facility] AST (SGOT) 9(L) 10 - 42 unit/L LAB CHEMISTRY METHOD 02/05/2024 8:23 AM [facility] Comment:Results verified by repeat testing ALT (SGPT) 14 10 - 60 unit/L LAB CHEMISTRY METHOD 02/05/2024 8:23 AM [facility] Alkaline Phosphatase 49 42 - 121 unit/L LAB CHEMISTRY METHOD 02/05/2024 8:23 AM [facility] Total Protein 7.0 6.0 - 8.0 g/dL LAB CHEMISTRY METHOD 02/05/2024 8:23 AM [facility] Albumin 3.7 3.2 - 5.0 g/dL LAB CHEMISTRY METHOD 02/05/2024 8:23 AM [facility] Total Bilirubin 0.7 0.0 - 1.4 mg/dL LAB CHEMISTRY METHOD 02/05/2024 8:23 AM [facility] Blood Venous blood specimen / Unknown 02/05/2024 6:20 AM EST 02/05/2024 7:25 AM EST Augustine Dan MD LAB BLOOD ORDERABLES Final Resul t [facility] [address] [place] [address], documented in this encounter Visit Diagnoses Diagnosis Other technician terminal and repeater (current) drug therapy documented in this encounter
--- OUTSIDE RECORDS SUMMARY | 2024-03-20 16:09 | XMS_ITS | Encounter Summary ---
Author Organization [employer] Address [address] [place] [address] Care Team Providers Care Grocery Shopper Name Role Phone Unavailable Primary Care Provider Unavailabl e Encounter Details Date Type Department Care Team (Late st Contact Info) Description 02/20/2024 Lab Requisition [facility] Lab [address] [facility] [place] [address] Augustine Dan MD [address] [place] [address] [address] [place] Major depressive disorder, recurrent, unspecified (CMS/HCC) Social [...] Diagnosis Comments CBC WITH AUTO DIFFERENTIAL Routine 02/20/2024 6:28 AM EST Major depressive disorder, recurrent, unspecified (CMS/HCC) VITAMIN D 25 HYDROXY Routine 02/20/2024 6:28 AM EST Major depressive disorder, recurrent, unspecified (CMS/HCC) CBC AND DIFFERENTIAL Routine 02/20/2024 6:28 AM EST Major depressive disorder, recurrent, unspecified (CMS/HCC) THYROID STIMULATING HORMONE Routine 02/20/2024 6:28 AM EST Major depressive disorder, recurrent, unspecified (CMS/HCC) COMPREHENSIVE METABOLIC PANEL Routine 02/20/2024 6:28 AM EST Major depressive disorder, recurrent, unspecified (CMS/HCC) documented in this encounter Results * (ABNORMAL) CBC auto differential (02/20/2024 6:28 AM EST) [facility] WBC 4.2(L) 4.8 - 10.8 K/mcL LAB HEMETOLOGY METHOD 02/20/2024 8:35 AM [facility] RBC 4.60 4.50 - 5.50 M/mcL LAB HEMETOLOGY METHOD 02/20/2024 8:35 AM [facility] Hemoglobin 13.9 13.5 - 17.5 g/dL LAB HEMETOLOGY METHOD 02/20/2024 8:35 AM [facility] Hematocrit 43.5 42.0 - 54.0 % LAB HEMETOLOGY METHOD 02/20/2024 8:35 AM [facility] MCV 94.8 79.0 - 98.0 FL LAB HEMETOLOGY METHOD 02/20/2024 8:35 AM [facility] MCH 30.3 27.0 - 32.0 pcg LAB HEMETOLOGY METHOD 02/20/2024 8:35 AM [facility] MCHC 32.0 32.0 - 37.0 g/dL LAB HEMETOLOGY METHOD 02/20/2024 8:35 AM [facility] RDW 13.7 11.0 - 15.0 % LAB HEMETOLOGY METHOD 02/20/2024 8:35 AM [facility] Platelets 76(L) 130 - 400 K/mcL LAB HEMETOLOGY METHOD 02/20/2024 8:35 AM [facility] Comment:reviewed by slide MPV 12.0(H) 7.0 - 11.0 FL LAB HEMETOLOGY METHOD 02/20/2024 8:35 AM [facility] NRBC 0.0 <1.0 % LAB HEMETOLOGY METHOD 02/20/2024 8:35 AM [facility] NRBC Absolute 0.00 <0.10 K/mcL LAB HEMETOLOGY METHOD 02/20/2024 8:35 AM [facility] Neutrophils Relative 42.7 % LAB HEMETOLOGY METHOD 02/20/2024 8:35 AM [facility] Lymphocytes Relative 38.4 % LAB HEMETOLOGY METHOD 02/20/2024 8:35 AM [facility] Monocytes Relative 12.1 % LAB HEMETOLOGY METHOD 02/20/2024 8:35 AM [facility] Eosinophils Relative 5.9 % LAB HEMETOLOGY METHOD 02/20/2024 8:35 AM [facility] Basophils Relative 0.7 % LAB HEMETOLOGY METHOD 02/20/2024 8:35 AM [facility] Immature Granulocytes Relative 0.2 % LAB HEMETOLOGY METHOD 02/20/2024 8:35 AM [facility] Neutrophils Absolute 1.80 1.50 - 7.00 K/mcL LAB HEMETOLOGY METHOD 02/20/2024 8:35 AM [facility] Lymphocytes Absolute 1.62 1.00 - 5.00 K/mcL LAB HEMETOLOGY METHOD 02/20/2024 8:35 AM [facility] Monocytes Absolute 0.51 0.20 - 1.00 K/mcL LAB HEMETOLOGY METHOD 02/20/2024 8:35 AM [facility] Eosinophils Absolute 0.25 0.00 - 0.50 K/mcL LAB HEMETOLOGY METHOD 02/20/2024 8:35 AM [facility] Basophils Absolute 0.03 0.00 - 0.20 K/mcL LAB HEMETOLOGY METHOD 02/20/2024 8:35 AM [facility] Immature Granulocytes Absolute 0.01 0.00 - 0.03 K/mcL LAB HEMETOLOGY METHOD 02/20/2024 8:35 AM [facility] Blood Venous blood specimen / Unknown 02/20/2024 6:28 AM EST 02/20/2024 7:34 AM EST us Augustine Dan MD LAB BLOOD ORDERABLES Final Resul t Performing Organization Address [facility] Co de Phone Number [facility] [address] [place] [address], [place] [phone] * Thyroid stimulating hormone (02/20/2024 6:28 AM EST) TSH 3.34 0.40 - 4.00 mcIU/mL LAB CHEMISTRY METHOD 02/20/2024 8:25 AM EST [facility] Blood Venous blood specimen / Unknown 02/20/2024 6:28 AM EST 02/20/2024 7:34 AM EST us Augustine Dan MD LAB BLOOD ORDERABLES Final Resul t Performing Organization Address [facility] de Phone Number [facility] [address] [place] [address], [place] [phone] * Vitamin D 25 hydroxy (02/20/2024 6:28 AM EST) Pathologist [facility] Vit D, 25-Hydroxy 51.1 30.0 - 80.0 ng/mL LAB CHEMISTRY METHOD 02/20/2024 8:25 AM EST [facility] Blood Venous blood specimen / Unknown 02/20/2024 6:28 AM EST 02/20/2024 7:34 AM EST us Augustine Dan MD LAB BLOOD ORDERABLES Final Resul t Performing Organization Address [facility] Co de Phone Number [facility] [address] [place] [address], [place] [phone] * (ABNORMAL) Comprehensive metabolic panel (02/20/2024 6:28 AM EST) Pathologist [facility] Sodium 142 133 - 145 mmol/L LAB CHEMISTRY METHOD 02/20/2024 8:23 AM EST [facility] Potassium 3.5 3.5 - 5.5 mmol/L LAB CHEMISTRY METHOD 02/20/2024 8:23 AM [facility] Chloride 105 96 - 110 mmol/L LAB CHEMISTRY METHOD 02/20/2024 8:23 AM [facility] CO2 35(H) 21 - 32 mmol/L LAB CHEMISTRY METHOD 02/20/2024 8:23 AM [facility] Anion Gap 2(L) 3 - 11 LAB CHEMISTRY METHOD 02/20/2024 8:23 AM [facility] Glucose 81 70 - 100 mg/dL LAB CHEMISTRY METHOD 02/20/2024 8:23 AM [facility] BUN 22 5 - 25 mg/dL LAB CHEMISTRY METHOD 02/20/2024 8:23 AM [facility] Creatinine 0.87 0.70 - 1.30 mg/dL LAB CHEMISTRY METHOD 02/20/2024 8:23 AM [facility] eGFR 99 >=60 mL/min/1. 73m2 LAB CHEMISTRY METHOD 02/20/2024 8:23 AM [facility] Comment:Calculation based on the??Chronic Kidney Disease Epidemiology Collaboration (CKD-EPI) equation refit??without adjustment for race. BUN/Creatinine Ratio 25.3 LAB CHEMISTRY METHOD 02/20/2024 8:23 AM [facility] Calcium 8.6 8.5 - 10.5 mg/dL LAB CHEMISTRY METHOD 02/20/2024 8:23 AM [facility] AST (SGOT) 10 10 - 42 unit/L LAB CHEMISTRY METHOD 02/20/2024 8:23 AM [facility] ALT (SGPT) 12 10 - 60 unit/L LAB CHEMISTRY METHOD 02/20/2024 8:23 AM [facility] Alkaline Phosphatase 46 42 - 121 unit/L LAB CHEMISTRY METHOD 02/20/2024 8:23 AM [facility] Total Protein 6.0 6.0 - 8.0 g/dL LAB CHEMISTRY METHOD 02/20/2024 8:23 AM EST [facility] Albumin 3.3 3.2 - 5.0 g/dL LAB CHEMISTRY METHOD 02/20/2024 8:23 AM EST [facility] Total Bilirubin 0.6 0.0 - 1.4 mg/dL LAB CHEMISTRY METHOD 02/20/2024 8:23 AM EST [facility] Blood Venous blood specimen / Unknown 02/20/2024 6:28 AM EST 02/20/2024 7:34 AM EST us Augustine Dan MD LAB BLOOD ORDERABLES Final Resul t [facility] [address] [place] [address], documented in this encounter Visit Diagnoses Diagnosis Major depressive disorder, recurrent, unspecified (CMS/HCC) documented in this encounter
--- OUTSIDE RECORDS SUMMARY | 2024-03-20 16:09 | XMS_ITS | Clinical Summary ---
Author Organization [employer] Address [address] [place] [address] [address] [place] [address] Care Team Providers Care Driving School Instructor Name Role Phone Unavailable Primary Care Provider Unavailabl e Allergies Active Allergy Reactions Criticality Noted Date Comments Sulfamethoxazole 08/30/2018 Medications acetaminophen (Tylenol) 500 MG tablet Active divalproex (Depakote) 125 MG EC tablet Take by mouth. Active Melatonin 5 MG capsule Active metoprolol tartrate (Lopressor) 5 MG/5ML injection Infuse into a venous catheter. Active cholecalciferol (Vitamin D-3) 10 MCG (400 UNIT) capsule Active Social History Tobacco Use Types Packs/Day Years Used Date Smoking Tobacco: Never Smokeless Tobacco: Never Tobacco Cessation:Counseling Given: Not Answered Sex and Gender Information Value Date Recorded Sex Assigned at Male 12/05/2021 10:35 AM EDT Legal Sex Male 10:35 AM EDT Gender Identity Male 12/05/2021 10:35 AM EDT Sexual Orientation Straight 12/05/2021 10 :35 AM EDT Last Filed Vital Signs Vital Sign Reading Time Taken Comments Blood Pressure 77/61 11/27/2022 3:11 PM EDT Pulse 147 11/27/2022 3:11 PM EDT Temperature - - Respiratory Rate - - Oxygen Saturation - - Inhaled Oxygen Concentration - - Weight - - Height - - Body Mass Index - - Plan of Treatment Health Maintenance Due Date Last Done Comments CT Colonography 1965 Colonoscopy 1965 Colorectal Cancer Screening 1965 Depression Screening 1965 FIT DNA/Cologuard 1965 FIT 1965 FOBT 1965 HIV Screening 1965 Lipid Panel 1965 SDOH Screening 1965 Sigmoidoscopy 1965 Alcohol/Substance Use Screening 1977 Hepatitis C Screening 1983 DTaP/Tdap/Td Vaccines (1 - Tdap) 01/23/1984 Hepatitis B Vaccines (1 of 3 - 19+ 3-dose series) 01/23/1984 Pneumococcal Vaccine: 50+ Years (1 of 1 - PCV) 2015 Zoster Vaccines (1 of 2) 2015 Dental X-Ray: Full Mouth 08/31/2021 08/30/2018 Dental Oral Exam 05/30/2023 11/27/2022, , 06/09/2020, Additional history exists Dental Prophylaxis 05/30/2023 11/27/2022, 0 10/19/2021, 06/09/2020, Additional history exists COVID-19 Vaccine ( season) 2023 08/31/2021, 02/02/2021, 07/30/2020, Additional history exists Influenza Vaccine (#1) 2023 , 12/06/2020, 11/18/2020 Tobacco Screening 11/28/2023 11/27/2022 Dental X-Ray: Bitewings 11/29/2023 11/28/19, 10/19/2021, 06/09/2020, Additional history exists RSV Patients and Patients Aged 60 years or older (1 - 1-dose 75+ series) 01/23/2040 HIB Vaccines Aged Out No longer eligi ble based on patient's age to complete this topic HPV Vaccines Aged Out No longer eligi ble based on patient's age to complete this topic Hepatitis A Vaccines Aged Out No long er eligible based on patient's age to complete this topic IPV Vaccines Aged Out No longer eligi ble based on patient's age to complete this topic Meningococcal Vaccine Aged Out No rafat joey eligible based on patient's age to complete this topic Pneumococcal Vaccine: Pediatrics (0 to 5 Years) and At-Risk Patients (6 to 49) Years) Aged Out No longer eligible based on patient's age to complete this topic RSV under 20 months Aged Out No longe r eligible based on patient's age to complete this topic Rotavirus Vaccines Aged Out No longer eligible based on patient's age to complete this topic Procedures Procedure Name Priority Date/Time Associated Diagnosis Comments PROPHYLAXIS - ADULT Routine 11/27/2022 3 :00 PM EDT BITEWINGS - 4 RADIOGRAPHIC IMAGES Routine 11/27/2022 3:00 PM EDT COMPREHENSIVE ORAL EVALUATION - NEW OR ESTABLISHED PATIENT Routine 11/27/2022 3:00 PM EDT INTRAORAL - COMPLETE SERIES OF RADIOGRAPHIC IMAGES Routine 08/30/2018 12:00 AM EDT from Last 3 Months or Most Recently Relevant to Health Maintenance Insurance GENERIC DENTAL
--- OUTSIDE RECORDS SUMMARY | 2024-03-20 16:09 | XMS_ITS | Encounter Summary ---
Author Organization [employer] [facility] Address [address] [place] [address] Care Team Providers Care Meter Repair Shop Supervisor Name Role Phone Unavailable Primary Care Provider Unavailabl e Encounter Details Date Type Department Care Team (Late st Contact Info) Description 01/20/2024 Lab Requisition [facility] Lab [address] [place] [phone] Augustine Dan MD [address] [place] [address] [address] [place], [place] Urinary tract infection, site not specified Social History Tobacco Use Types Packs/Day Years [...] Associated Diagnosis Comments URINALYSIS WITH REFLEX MICROSCOPIC Routine 01/20/2024 6:00 PM EST Urinary tract infection, site not specified URINALYSIS WITH REFLEX MICROSCOPIC Routine 01/20/2024 6:00 PM EST Urinary tract infection, site not specified CULTURE URINE Routine 01/20/2024 6:00 PM EST Urinary tract infection, site not specified documented in this encounter Results * (ABNORMAL) Urinalysis with reflex microscopic (01/20/2024 6:00 PM EST) Specific [place] Urine 1.029 1.003 - 1.030 LAB URINALYSIS - AUTOMATED METHOD 01/20/2024 8:20 PM [facility] pH, Urine 5.5 5.0 - 8.0 pH LAB URINALYSIS - AUTOMATED METHOD 01/20/2024 8:20 PM [facility] Leukocytes, Urine Negative Negative LAB URINALYSIS - AUTOMATED METHOD 01/20/2024 8:20 PM [facility] Nitrite, Urine Negative Negative LAB URINALYSIS - AUTOMATED METHOD 01/20/2024 8:20 PM [facility] Protein, Urine Negative <=Trace mg/dL LAB URINALYSIS - AUTOMATED METHOD 01/20/2024 8:20 PM [facility] Glucose, Urine Negative Negative mg/dL LAB URINALYSIS - AUTOMATED METHOD 01/20/2024 8:20 PM [facility] Ketones, Urine 15(A) Negative mg/dL LAB URINALYSIS - AUTOMATED METHOD 01/20/2024 8:20 PM [facility] Urobilinogen, Urine 0.2 0.2 - 1.0 mg/dL LAB URINALYSIS - AUTOMATED METHOD 01/20/2024 8:20 PM [facility] Bilirubin, Urine Negative Negative LAB URINALYSIS - AUTOMATED METHOD 01/20/2024 8:20 PM [facility] Blood, Urine Negative Negative LAB URINALYSIS - AUTOMATED METHOD 01/20/2024 8:20 PM [facility] Urine Urine specimen obtained by clean catch procedure / Unknown 01/20/2024 6:00 PM EST 01/20/2024 8:17 PM EST us Augustine Dan MD LAB URINE ORDERABLES Final Resul t [facility] [address] [place] [address], * Culture urine (01/20/2024 6:00 PM EST) Culture, Urine No growth 01/21/2024 1:22 PM [facility] Urine Urine specimen obtained by clean catch procedure / Unknown 01/20/2024 6:00 PM EST 01/20/2024 8:17 PM EST us Augustine Dan MD LAB MICROBIOLOGY - GENERAL ORDER KETTY Final Result [facility] [address] [place] [address], documented in this encounter Visit Diagnoses Diagnosis Urinary tract infection, site not specified documented in this encounter
--- OUTSIDE RECORDS SUMMARY | 2024-03-20 16:09 | XMS_ITS | Encounter Summary ---
Author Organization [facility] Address [address] [place] [address] Care Team Providers Care Camera Machinist Name Role Phone Unavailable Primary Care Provider Unavailabl e Encounter Details Date Type Department Care Team (Late st Contact Info) Description 01/25/2024 Lab Requisition [facility] Lab [address] [place] [phone] Augustine Dan MD [address] [place] [address] [address] [place] Other long term care social worker (current) drug therapy Social History Tobacco Use [...] Procedure Name Priority Date/Time Associated Diagnosis Comments AMMONIA Routine 01/25/2024 6:10 AM EST Other long term care social worker (current) drug therapy VALPROIC ACID LEVEL, TOTAL Routine 01/25/2024 6:10 AM EST Other long term care social worker (current) drug therapy documented in this encounter Results * Valproic acid level, total (01/25/2024 6:10 AM EST) Valproic Acid, Total 82 50 - 100 mcg/mL LAB CHEMISTRY METHOD 01/25/2024 7:35 AM EST [facility] Blood Venous blood specimen / Unknown 01/25/2024 6:10 AM EST 01/25/2024 6:49 AM EST us Augustine Dan MD LAB BLOOD ORDERABLES Final Resul t [facility] [address] [place] [address], [place] [phone] * Ammonia (01/25/2024 6:10 AM EST) Ammonia 22 11 - 35 mcmol/L LAB CHEMISTRY METHOD 01/25/2024 7:28 AM EST [facility] Blood Venous blood specimen / Unknown 01/25/2024 6:10 AM EST 01/25/2024 6:49 AM EST us Augustine Dan MD LAB BLOOD ORDERABLES Final Resul t [facility] [address] [place] [address], [place] [phone] documented in this encounter Visit Diagnoses Diagnosis Other long term care social worker (current) drug therapy documented in this encounter
--- OUTSIDE RECORDS SUMMARY | 2024-03-20 16:09 | XMS_ITS | Encounter Summary ---
Author Organization [employer] Address [address] [place] [address] Care Team Providers Care Development Editor Name Role Phone Unavailable Primary Care Provider Unavailabl e Encounter Details Date Type Department Care Team (Late st Contact Info) Description 02/04/[address] [facility] [address] [facility] [place] [address] Social History Tobacco Use Types Packs/Day Years [...]
--- OUTSIDE RECORDS SUMMARY | 2024-03-20 16:09 | XMS_ITS | Encounter Summary ---
Author Organization [employer] [facility] Address [address] [place] [address] Care Team Providers Care Pediatric Registered Nurse Name Role Phone Unavailable Primary Care Provider Unavailabl e Encounter Details Date Type Department Care Team (Late st Contact Info) Description 01/11/2024 Lab Requisition [facility] Lab [address] [facility] [place] [phone] Augustine Dan MD [address] [place] [address] [address] [place] Other buttermaker continuous churn (current) drug therapy Social History Tobacco Use [...] Procedure Name Priority Date/Time Associated Diagnosis Comments COMPLETE BLOOD COUNT Routine 01/11/2024 5:10 AM EST Other intermediate (current) drug therapy COMPREHENSIVE METABOLIC PANEL Routine 01/11/2024 5:10 AM EST Other intermediate (current) drug therapy documented in this encounter Results * (ABNORMAL) Comprehensive metabolic panel (01/11/2024 5:10 AM EST) Sodium 144 133 - 145 mmol/L LAB CHEMISTRY METHOD 01/11/2024 6:57 AM EST [facility] Potassium 3.8 3.5 - 5.5 mmol/L LAB CHEMISTRY METHOD 01/11/2024 6:57 AM EST [facility] Chloride 109 96 - 110 mmol/L LAB CHEMISTRY METHOD 01/11/2024 6:57 AM EST [facility] CO2 30 21 - 32 mmol/L LAB CHEMISTRY METHOD 01/11/2024 6:57 AM [facility] Anion Gap 5 3 - 11 LAB CHEMISTRY METHOD 01/11/2024 6:57 AM [facility] Glucose 87 70 - 100 mg/dL LAB CHEMISTRY METHOD 01/11/2024 6:57 AM [facility] BUN 20 5 - 25 mg/dL LAB CHEMISTRY METHOD 01/11/2024 6:57 AM [facility] Creatinine 0.82 0.70 - 1.30 mg/dL LAB CHEMISTRY METHOD 01/11/2024 6:57 AM [facility] eGFR 102 >=60 mL/min/1. 73m2 LAB CHEMISTRY METHOD 01/11/2024 6:57 AM [facility] Comment:Calculation based on the??Chronic Kidney Disease Epidemiology Collaboration (CKD-EPI) equation refit??without adjustment for race. BUN/Creatinine Ratio 24.4 LAB CHEMISTRY METHOD 01/11/2024 6:57 AM [facility] Calcium 9.0 8.5 - 10.5 mg/dL LAB CHEMISTRY METHOD 01/11/2024 6:57 AM [facility] AST (SGOT) 47(H) 10 - 42 unit/L LAB CHEMISTRY METHOD 01/11/2024 6:57 AM [facility] ALT (SGPT) 19 10 - 60 unit/L LAB CHEMISTRY METHOD 01/11/2024 6:57 AM [facility] Alkaline Phosphatase 46 42 - 121 unit/L LAB CHEMISTRY METHOD 01/11/2024 6:57 AM [facility] Total Protein 6.3 6.0 - 8.0 g/dL LAB CHEMISTRY METHOD 01/11/2024 6:57 AM [facility] Albumin 3.3 3.2 - 5.0 g/dL LAB CHEMISTRY METHOD 01/11/2024 6:57 AM [facility] Total Bilirubin 0.5 0.0 - 1.4 mg/dL LAB CHEMISTRY METHOD 01/11/2024 6:57 AM [facility] Blood Venous blood specimen / Unknown 01/11/2024 5:10 AM EST 01/11/2024 6:11 AM EST us Augustine Dan MD LAB BLOOD ORDERABLES Final Resul t [facility] [address] [place] [address], * (ABNORMAL) Complete blood count (01/11/2024 5:10 AM EST) WBC 6.9 4.8 - 10.8 K/mcL LAB HEMETOLOGY METHOD 01/11/2024 6:52 AM [facility] RBC 4.70 4.50 - 5.50 M/mcL LAB HEMETOLOGY METHOD 01/11/2024 6:52 AM [facility] Hemoglobin 14.3 13.5 - 17.5 g/dL LAB HEMETOLOGY METHOD 01/11/2024 6:52 AM [facility] Hematocrit 43.5 42.0 - 54.0 % LAB HEMETOLOGY METHOD 01/11/2024 6:52 AM [facility] MCV 92.8 79.0 - 98.0 FL LAB HEMETOLOGY METHOD 01/11/2024 6:52 AM [facility] MCH 30.5 27.0 - 32.0 pcg LAB HEMETOLOGY METHOD 01/11/2024 6:52 AM [facility] MCHC 32.9 32.0 - 37.0 g/dL LAB HEMETOLOGY METHOD 01/11/2024 6:52 AM [facility] RDW 13.8 11.0 - 15.0 % LAB HEMETOLOGY METHOD 01/11/2024 6:52 AM [facility] Platelets 83(L) 130 - 400 K/mcL LAB HEMETOLOGY METHOD 01/11/2024 6:52 AM EST [facility] Comment:reviewed by slide MPV 12.0(H) 7.0 - 11.0 FL LAB HEMETOLOGY METHOD 01/11/2024 6:52 AM EST [facility] NRBC 0.0 <1.0 % LAB HEMETOLOGY METHOD 01/11/2024 6:52 AM EST [facility] NRBC Absolute 0.00 <0.10 K/mcL LAB HEMETOLOGY METHOD 01/11/2024 6:52 AM EST [facility] Blood Venous blood specimen / Unknown 01/11/2024 5:10 AM EST 01/11/2024 6:11 AM EST us Augustine Dan MD LAB BLOOD ORDERABLES Final Resul t [facility] [address] [place] [address], documented in this encounter Visit Diagnoses Diagnosis Other intermediate (current) drug therapy documented in this encounter
--- OUTSIDE RECORDS SUMMARY | 2024-03-20 16:09 | XMS_ITS | Encounter Summary ---
Author Organization [employer] Address [address] [facility] [address] [place] [address] Care Team Providers Care Head Setter Name Role Phone Unavailable Primary Care Provider Unavailabl e Encounter Details Date Type Department Care Team (Latest Contact Info) Description 10/19/2021 Abstract [facility] CONVERSIONS Dental, Provider, DDS Social History Tobacco [...]
--- OUTSIDE RECORDS SUMMARY | 2024-03-20 16:09 | XMS_ITS | Clinical Summary ---
Author Organization [address] [facility] Address [address] [place] [address] Phone Care Team Providers Care Quill Buncher And Sorter Name Role Phone Unavailable Primary Care Provider Unavailabl e Encounters Date Type Department Care Team Description 02/20/2024 Lab Requisition [facility] Lab [address] [place] [phone] Augustine Dan MD Major depressive disorder, recurrent, unspecified (CMS/HCC) 02/08/2024 Lab Requisition [facility] Lab [address] [place] [phone] Augustine Dan MD Other correction (current) drug therapy 02/05/2024 Lab Requisition [facility] Lab [address] [place] [phone] Augustine Dan MD Other intermodal owner operator truck driver (current) drug therapy 02/04/2024 Lab Requisition [facility] Lab [address] [place] [phone] 02/04/2024 Lab Requisition [facility] Lab [address] [place] [phone] Augustine Dan MD Dysuria 01/25/2024 Lab Requisition [facility] Lab [address] [place] [phone] Augustine Dan MD Other correction (current) drug therapy 01/21/2024 Lab Requisition [facility] Lab [address] [place] [phone] Augustine Dan MD Major depressive disorder, recurrent, unspecified (CMS/HCC) 01/20/2024 Lab Requisition [facility] Lab [address] [place] [address] Augustine Dan MD Urinary tract infection, site not specified 01/14/2024 Lab Requisition [facility] [address] [place] [address] Augustine Dan MD Malignant neuroleptic syndrome 01/11/2024 Lab Requisition [facility] [address] [place] [address] Augustine Dan MD Other correction (current) drug therapy from Last 3 Months Social History Tobacco Use Types Packs/Day Years Used Date Smoking Tobacco: Never Assessed Sex and Gender Information Value Date Recorded Sex Assigned at Not on file Legal Sex Male 6:57 AM EST Gender Identity Not on file Sexual Orientation Not on file Plan of Treatment Health Maintenance Due Date Last Done Comments DTaP,Tdap,and Td Vaccines (1 - Tdap) 01/23/1984 Hepatitis B Vaccines (1 of 3 - 19+ 3-dose series) 01/23/1984 Zoster Vaccines (1 of 2) 2015 Cholesterol Screening (Lipid Panel) 01/08/2022 Colorectal Cancer Screening: Colonoscopy 01/08/2022 Depression Screening 01/08/2022 HIV Screening 01/08/2022 Hepatitis C Screening 01/08/2022 Social Influencers of Health Screening 01/08/2022 COVID-19 Vaccine (2023-2 5 season) 2023 Influenza Vaccine (#1) 2023 RSV Immunization Patients 60 + Years Old (1 - 1-dose 75+ series) 01/23/2040 HIB [...] on patient's age to complete this topic MMR Vaccines Aged Out No longer eligi ble based on patient's age to complete this topic Meningococcal ACWY Vaccine Aged Out N o longer eligible based on patient's age to complete this topic Pneumococcal Vaccine: Pediat rics (0 to 5 Years) and At-Risk Patients (6 to 64 Years) Aged Out No longer eligible b ased on patient's age to complete this topic RSV Immunization Patients Un dontrell 20 months Aged Out No longer eligible b ased on patient's age to complete this topic Varicella Vaccines Aged Out No longer eligible based [...] unspecified (CMS/HCC) VALPROIC ACID LEVEL, TOTAL Routine 02/08/2024 5:05 AM EST Other intermodal owner operator truck driver (current) drug therapy VALPROIC ACID LEVEL, TOTAL Routine 02/05/2024 6:20 AM EST Other intermodal owner operator truck driver (current) drug therapy SST - GOLD Routine 02/05/2024 6:20 AM EST Other intermodal owner operator truck driver (current) drug therapy PREGABALIN Routine 02/05/2024 6:20 AM EST Other correction (current) drug therapy LEVETIRACETAM LEVEL Routine 02/05/2024 6 :20 AM EST Other correction (current) drug therapy AMMONIA Routine 02/05/2024 6:20 AM EST Other intermodal owner operator truck driver (current) drug therapy COMPLETE BLOOD COUNT Routine 02/05/2024 6:20 AM EST Other correction (current) drug therapy COMPREHENSIVE METABOLIC PANEL Routine 02/05/2024 6:20 AM EST Other intermodal owner operator truck driver (current) drug therapy R[place]HERFORD URINE CULTURE TUBE Routine 02/04/2024 1:30 PM EST Dysuria URINALYSIS WITH REFLEX MICROSCOPIC AND CULTURE Routine 02/04/2024 1:30 PM EST Dysuria URINALYSIS WITH REFLEX MICROSCOPIC AND CULTURE Routine 02/04/2024 1:30 PM EST Dysuria VALPROIC ACID LEVEL, TOTAL Routine 01/25/2024 6:10 AM EST Other correction (current) drug therapy AMMONIA Routine 01/25/2024 6:10 AM EST Other correction (current) drug therapy CBC WITH AUTO DIFFERENTIAL Routine 01/21/2024 6:25 AM EST Major depressive disorder, recurrent, unspecified (CMS/HCC) VALPROIC ACID LEVEL, TOTAL Routine 01/21/2024 6:25 AM EST Major depressive disorder, recurrent, unspecified (CMS/HCC) CBC AND DIFFERENTIAL Routine 01/21/2024 6:25 AM EST Major depressive disorder, recurrent, unspecified (CMS/HCC) URINALYSIS WITH REFLEX MICROSCOPIC Routine 01/20/2024 6:00 PM EST Urinary tract infection, site not specified URINALYSIS WITH REFLEX MICROSCOPIC Routine 01/20/2024 6:00 PM EST Urinary tract infection, site not specified CULTURE URINE Routine 01/20/2024 6:00 PM EST Urinary tract infection, site not specified PLATELET COUNT Routine 01/14/2024 12:00 AM EST Malignant neuroleptic syndrome COMPREHENSIVE METABOLIC PANEL Routine 01/11/2024 5:10 AM EST Other correction (current) drug therapy COMPLETE BLOOD COUNT Routine 01/11/2024 5:10 AM EST Other intermodal owner operator truck driver (current) drug therapy from Last 3 Months Results * (ABNORMAL) CBC auto differential (02/20/2024 6:28 AM EST) Only the most recent of2 resultswithin the time period is included. WBC 4.2(L) 4.8 - 10.8 K/mcL LAB [...] K/mcL LAB HEMETOLOGY METHOD 02/20/2024 8:35 AM EST [facility] Immature Granulocytes Absolute 0.01 0.00 - 0.03 K/[facility] LAB HEMETOLOGY METHOD 02/20/2024 8:35 AM EST [facility] Blood Venous blood specimen / Unknown 02/20/2024 6:28 AM EST 02/20/2024 7:34 AM EST us Augustine Dan MD LAB BLOOD ORDERABLES Final Resul t Performing Organization Address City/[facility]/ZIP Co de Phone Number [facility] [address] [place] [address], [place] [phone] * Vitamin D 25 hydroxy (02/20/2024 6:28 AM EST) Vit D, 25-Hydroxy 51.1 30.0 - 80.0 ng/mL LAB CHEMISTRY METHOD 02/20/2024 8:25 AM EST [facility] Blood Venous blood specimen / Unknown 02/20/2024 6:28 AM EST 02/20/2024 7:34 AM EST us Augustine Dan MD LAB BLOOD ORDERABLES Final Resul t Performing Organization Address City/[facility]/ZIP Co de Phone Number [facility] [address] [place] [address], [place] [phone] * Thyroid stimulating hormone (02/20/2024 6:28 AM EST) TSH 3.34 0.40 - 4.00 mcIU/mL LAB CHEMISTRY METHOD 02/20/2024 8:25 AM EST [facility] Blood Venous blood specimen / Unknown 02/20/2024 6:28 AM EST 02/20/2024 7:34 AM EST us Augustine Dan MD LAB BLOOD ORDERABLES Final Resul t [facility] [address] [place] [address], [place] [phone] * (ABNORMAL) Comprehensive metabolic panel (02/20/2024 6:28 AM EST) Only the most recent of3 resultswithin the time period is included. Sodium 142 133 - 145 mmol/L LAB CHEMISTRY METHOD 02/20/2024 8:23 AM [facility] Potassium 3.5 3.5 - 5.5 mmol/L LAB CHEMISTRY METHOD 02/20/2024 8:23 AM [facility] Chloride 105 96 - 110 mmol/L LAB CHEMISTRY METHOD 02/20/2024 8:23 AM [facility] CO2 35(H) 21 - 32 mmol/L LAB CHEMISTRY METHOD 02/20/2024 8:23 AM EST [facility] Anion Gap 2(L) 3 - 11 [...] g/dL LAB CHEMISTRY METHOD 02/20/2024 8:23 AM [facility] Albumin 3.3 3.2 - 5.0 g/dL LAB CHEMISTRY METHOD 02/20/2024 8:23 AM [facility] Total Bilirubin 0.6 0.0 - 1.4 mg/dL LAB CHEMISTRY METHOD 02/20/2024 8:23 AM [facility] Blood Venous blood specimen / Unknown 02/20/2024 6:28 AM EST 02/20/2024 7:34 AM EST us Augustine Dan MD LAB BLOOD ORDERABLES Final Resul t Performing Organization Address City/[facility]/ZIP Co de Phone Number [facility] [address] [place] [address], [place] [phone] * Valproic acid level, total (02/08/2024 5:05 AM EST) Only the most recent of4 resultswithin the time period is included. Valproic Acid, Total 80 50 - 100 mcg/mL LAB CHEMISTRY METHOD 02/08/2024 6:22 AM EST [facility] Blood Venous blood specimen / Unknown 02/08/2024 5:05 AM EST 02/08/2024 5:55 AM EST us Augustine Dan MD LAB BLOOD ORDERABLES Final Resul t [facility] [address] [place] [address], [place] [phone] * SST tube (02/05/2024 6:20 AM EST) Extra Tube Hold for add-ons. 02/05/2024 9:01 AM EST [facility] Comment:Auto resulted. Blood Venous blood specimen / Unknown 02/05/2024 6:20 AM EST 02/05/2024 7:31 AM EST us Augustine Dan MD LAB BLOOD ORDERABLES Final Resul t Performing Organization Address City/[facility]/ZIP Co de Phone Number [facility] [address] [place] [address], [place] [phone] * Pregabalin (02/05/2024 6:20 AM EST) Pregabalin [...] 4:05 PM EST Performed at: ??01 - [employer] [address] [place] [address] ??[phone] Medieval English Literature Professor: Monique Gerber [facility], Phone: ??[phone] us Augustine Dan MD LAB BLOOD ORDERABLES Final Resul t [facility] * Levetiracetam level (02/05/2024 6:20 AM EST) Levetiracetam <1.0 3.0 - 60.0 ug/mL 02/11/2024 7:[address] [facility] Comment: Steady state trough serum or plasma levels following doses of 1000 to 3000 mg/Day: ??3 to 37 ug/mL. The same dosage regimen will typically result in peak levels of 10 to 60 ug/mL, at approximately 1.5 hours post dose. If applicable, any drug confirmation testing reported here was developed and the performance characteristics determined by [facility]. This confirmation testing has not been cleared or approved by the FDA. The laboratory is regulated under CLIA as qualified to perform high-complexity testing. This test is used for patient testing purposes. It should not be regarded as investigational or for research. Test performed at [facility], [address], [place], [place] ??[address] ? [phone] Alicia Mclain MD, PhD - Colorist Formulator Blood Venous blood specimen / Unknown 02/05/2024 6:20 AM EST 02/05/2024 7:25 AM EST us Augustine Dan MD LAB BLOOD ORDERABLES Final Resul t [facility] [address] [place] [address] * (ABNORMAL) Complete blood count (02/05/2024 6:20 AM EST) Only the most recent of2 resultswithin the time period is included. WBC 3.9(L) 4.8 - 10.8 K/mcL LAB HEMETOLOGY METHOD 02/05/2024 7:52 AM EST [facility] RBC 4.90 4.50 - 5.50 M/mcL LAB HEMETOLOGY METHOD 02/05/2024 7:52 AM EST [facility] Hemoglobin 14.8 13.5 - 17.5 g/dL LAB HEMETOLOGY METHOD 02/05/2024 7:52 AM [facility] Hematocrit 44.4 42.0 - 54.0 % LAB HEMETOLOGY METHOD 02/05/2024 7:52 AM EST [facility] MCV 91.2 79.0 - 98.0 FL LAB HEMETOLOGY METHOD 02/05/2024 7:52 AM [facility] MCH 30.4 27.0 - 32.0 pcg LAB HEMETOLOGY METHOD 02/05/2024 7:52 AM [facility] MCHC 33.3 32.0 - 37.0 g/dL LAB HEMETOLOGY METHOD 02/05/2024 7:52 AM [facility] RDW 13.4 11.0 - 15.0 % LAB HEMETOLOGY METHOD 02/05/2024 7:52 AM [facility] Platelets 111(L) 130 - 400 K/mcL LAB HEMETOLOGY METHOD 02/05/2024 7:52 AM [facility] MPV 11.6(H) 7.0 - 11.0 FL LAB HEMETOLOGY METHOD 02/05/2024 7:52 AM [facility] NRBC 0.0 <1.0 % LAB HEMETOLOGY METHOD 02/05/2024 7:52 AM [facility] NRBC Absolute 0.00 <0.10 K/mcL LAB HEMETOLOGY METHOD 02/05/2024 7:52 AM [facility] Blood Venous blood specimen / Unknown 02/05/2024 6:20 AM EST 02/05/2024 7:25 AM EST us Augustine Dan MD LAB BLOOD ORDERABLES Final Resul t [facility] [address] [place] [address], * (ABNORMAL) Ammonia (02/05/2024 6:20 AM EST) Only the most recent of2 resultswithin the time period is included. Ammonia 39(H) 11 - 35 mcmol/L LAB CHEMISTRY METHOD 02/05/2024 7:55 AM [facility] Blood Venous blood specimen / Unknown 02/05/2024 6:20 AM EST 02/05/2024 7:25 AM EST us Augustine Dan MD LAB BLOOD ORDERABLES Final Resul t [facility] [address] [place] [address], [place] [phone] * Urinalysis with reflex microscopic and culture (02/04/2024 1:30 PM EST) Specific [place] Urine 1.015 1.003 - 1.030 LAB URINALYSIS [...] URINALYSIS - AUTOMATED METHOD 02/04/2024 5:44 PM EST [facility] Blood, Urine Negative Negative LAB URINALYSIS - AUTOMATED METHOD 02/04/2024 5:44 PM EST [facility] Urine Urine specimen obtained by clean catch procedure / Unknown 02/04/2024 1:30 PM EST 02/04/2024 5:12 PM EST us Augustine Dan MD LAB URINE ORDERABLES Final Resul t Performing Organization Address City/[facility]/ZIP Co de Phone Number [facility] [address] [place] [address], [place] [phone] * [place] urine culture tube (02/04/2024 1:30 PM EST) Pathologist [facility] Extra Tube Hold for add-ons. 02/04/2024 7:02 PM EST [facility] Comment:Auto resulted. Urine Urine specimen obtained by clean catch procedure / Unknown 02/04/2024 1:30 PM EST 02/04/2024 5:27 PM EST us Augustine Dan MD LAB URINE ORDERABLES Final Resul t Performing Organization Address [facility] Co de Phone Number [facility] [address] [place] [address], [place] [phone] * (ABNORMAL) Urinalysis with reflex microscopic (01/20/2024 6:00 PM EST) Specific [place] Urine 1.029 1.003 - 1.030 LAB URINALYSIS - AUTOMATED METHOD 01/20/2024 8:20 PM EST [facility] pH, Urine 5.5 5.0 - 8.0 pH LAB URINALYSIS - AUTOMATED METHOD 01/20/2024 8:20 PM [facility] Leukocytes, Urine Negative Negative LAB URINALYSIS - AUTOMATED METHOD 01/20/2024 8:20 PM EST [facility] Nitrite, Urine Negative Negative LAB URINALYSIS - AUTOMATED METHOD 01/20/2024 8:20 PM [facility] Protein, Urine Negative <=Trace mg/dL LAB URINALYSIS - AUTOMATED METHOD 01/20/2024 8:20 PM [facility] Glucose, Urine Negative Negative mg/dL LAB URINALYSIS - AUTOMATED METHOD 01/20/2024 8:20 PM [facility] Ketones, Urine 15(A) Negative mg/dL LAB URINALYSIS - AUTOMATED METHOD 01/20/2024 8:20 PM [facility] Urobilinogen, Urine 0.2 0.2 - 1.0 mg/dL LAB URINALYSIS - AUTOMATED METHOD 01/20/2024 8:20 PM [facility] Bilirubin, Urine Negative Negative LAB URINALYSIS - AUTOMATED METHOD 01/20/2024 8:20 PM [facility] Blood, Urine Negative Negative LAB URINALYSIS - AUTOMATED METHOD 01/20/2024 8:20 PM [facility] Urine Urine specimen obtained by clean catch procedure / Unknown 01/20/2024 6:00 PM EST 01/20/2024 8:17 PM EST us Augustine Dan MD LAB URINE ORDERABLES Final Resul t Performing Organization Address [facility]/ZIP Co de Phone Number [facility] [address] [place] [address], [place] [phone] * Culture urine (01/20/2024 6:00 PM EST) Culture, Urine No growth 01/21/2024 1:22 PM EST [facility] Urine Urine specimen obtained by clean catch procedure / Unknown 01/20/2024 6:00 PM EST 01/20/2024 8:17 PM EST us Augustine Dan MD LAB MICROBIOLOGY - GENERAL ORDER KETTY Final Result [facility] [address] [place] [address], [place] [phone] * (ABNORMAL) Platelet count (01/14/2024 12:00 AM EST) Platelets 110(L) 130 - 400 K/mcL LAB HEMETOLOGY METHOD 01/14/2024 7:46 PM EST [facility] MPV 11.4(H) 7.0 - 11.0 FL LAB HEMETOLOGY METHOD 01/14/2024 7:46 PM EST [facility] Blood Venous blood specimen / Unknown 01/14/2024 01/14/2024 6:53 PM EST Augustine Dan MD LAB BLOOD ORDERABLES Final Resul t [facility] [address] [place] [address], [place] [phone] from Last 3 Months Insurance MEDICAID - [place]
--- OUTSIDE RECORDS SUMMARY | 2024-03-20 16:09 | XMS_ITS | Encounter Summary ---
Author Organization [employer] Address [address] [place] [address] Care Team Providers Care Molding Supervisor Name Role Phone Unavailable Primary Care Provider Unavailabl e Encounter Details Date Type Department Care Team (Latest Contact Info) Description 08/30/2018 Abstract C CONVERSIONS Dental, Provider, DDS Social [...]
--- OUTSIDE RECORDS SUMMARY | 2024-03-20 16:09 | XMS_ITS | Encounter Summary ---
Author Organization [employer] [facility] Address [address] [place] [address] Care Team Providers Care Business Lawyer Name Role Phone Unavailable Primary Care Provider Unavailabl e Encounter Details Date Type Department Care Team (Late st Contact Info) Description 12/12/2023 Lab Requisition [facility] [address] [facility] [place] [address] Augustine Dan MD [address] [place] [address] [address] [place] Major depressive disorder, recurrent, unspecified (CMS/HCC) Social [...] Diagnosis Comments CBC WITH AUTO DIFFERENTIAL Routine 12/12/2023 5:05 AM EST Major depressive disorder, recurrent, unspecified (CMS/HCC) CBC AND DIFFERENTIAL Routine 12/12/2023 5:05 AM EST Major depressive disorder, recurrent, unspecified (CMS/HCC) VALPROIC ACID LEVEL, TOTAL Routine 12/12/2023 5:05 AM EST Major depressive disorder, recurrent, unspecified (CMS/HCC) documented in this encounter Results * (ABNORMAL) CBC auto differential (12/12/2023 5:05 AM EST) WBC 4.9 4.8 - 10.8 K/[facility] LAB HEMETOLOGY METHOD 12/12/2023 6:58 AM EST [facility] RBC 4.70 4.50 - 5.50 M/[facility] LAB HEMETOLOGY METHOD 12/12/2023 6:58 AM [facility] Hemoglobin 14.3 13.5 - 17.5 g/dL LAB HEMETOLOGY METHOD 12/12/2023 6:58 AM [facility] Hematocrit 44.8 42.0 - 54.0 % LAB HEMETOLOGY METHOD 12/12/2023 6:58 AM [facility] MCV 94.5 79.0 - 98.0 FL LAB HEMETOLOGY METHOD 12/12/2023 6:58 AM [facility] MCH 30.2 27.0 - 32.0 pcg LAB HEMETOLOGY METHOD 12/12/2023 6:58 AM [facility] MCHC 31.9(L) 32.0 - 37.0 g/dL LAB HEMETOLOGY METHOD 12/12/2023 6:58 AM [facility] RDW 13.6 11.0 - 15.0 % LAB HEMETOLOGY METHOD 12/12/2023 6:58 AM [facility] Platelets 101(L) 130 - 400 K/mcL LAB HEMETOLOGY METHOD 12/12/2023 6:58 AM [facility] MPV 12.1(H) 7.0 - 11.0 FL LAB HEMETOLOGY METHOD 12/12/2023 6:58 AM [facility] NRBC 0.0 <1.0 % LAB HEMETOLOGY METHOD 12/12/2023 6:58 AM [facility] NRBC Absolute 0.00 <0.10 K/mcL LAB HEMETOLOGY METHOD 12/12/2023 6:58 AM [facility] Neutrophils Relative 43.6 % LAB HEMETOLOGY METHOD 12/12/2023 6:58 AM [facility] Lymphocytes Relative 40.1 % LAB HEMETOLOGY METHOD 12/12/2023 6:58 AM [facility] Monocytes Relative 11.2 % LAB HEMETOLOGY METHOD 12/12/2023 6:58 AM [facility] Eosinophils Relative 4.3 % LAB HEMETOLOGY METHOD 12/12/2023 6:58 AM [facility] Basophils Relative 0.8 % LAB HEMETOLOGY METHOD 12/12/2023 6:58 AM [facility] Immature Granulocytes Relative 0.0 % LAB HEMETOLOGY METHOD 12/12/2023 6:58 AM [facility] Neutrophils Absolute 2.13 1.50 - 7.00 K/mcL LAB HEMETOLOGY METHOD 12/12/2023 6:58 AM [facility] Lymphocytes Absolute 1.96 1.00 - 5.00 K/mcL LAB HEMETOLOGY METHOD 12/12/2023 6:58 AM [facility] Monocytes Absolute 0.55 0.20 - 1.00 K/mcL LAB HEMETOLOGY METHOD 12/12/2023 6:58 AM EST [facility] Eosinophils Absolute 0.21 0.00 - 0.50 K/mcL LAB HEMETOLOGY METHOD 12/12/2023 6:58 AM [facility] Basophils Absolute 0.04 0.00 - 0.20 K/mcL LAB HEMETOLOGY METHOD 12/12/2023 6:58 AM [facility] Immature Granulocytes Absolute 0.00 0.00 - 0.03 K/mcL LAB HEMETOLOGY METHOD 12/12/2023 6:58 AM [facility] Blood Venous blood specimen / Unknown 12/12/2023 5:05 AM EST 12/12/2023 6:26 AM EST us Augustine Dan MD LAB BLOOD ORDERABLES Final Resul t [facility] [address] [place] [address], * Valproic acid level, total (12/12/2023 5:05 AM EST) Valproic Acid, Total 78 50 - 100 mcg/mL LAB CHEMISTRY METHOD 12/12/2023 7:01 AM EST [facility] Blood Venous blood specimen / Unknown 12/12/2023 5:05 AM EST 12/12/2023 6:26 AM EST us Augustine Dan MD LAB BLOOD ORDERABLES Final Resul t [facility] [address] [place] [address], documented in this encounter Visit Diagnoses Diagnosis Major depressive disorder, recurrent, unspecified (CMS/HCC) documented in this encounter
--- NOTE | 2024-03-20 16:11 | ECG_ITS ---
Test Reason : WEAKNESS Blood Pressure : */* mmHG Vent. Rate : 66 BPM Atrial Rate : * BPM P-R Int : * ms QRS Dur : 90 ms QT Int : 398 ms P-R-T Axes : * -13 -18 degrees QTcB Int : 417 ms Atrial fibrillation Nonspecific ST and T wave abnormality Abnormal ECG When compared with ECG of 20-Mar-2024 15:44, No significant change was found Referred By: Selma Frances Electronically Signed By: ROSITA FREGOSO MD
[2024-03-20] MEDS: Albuterol/Iprat 2.5/0.5MG 3 ML AMPUL.NEB INHALE (16:15)
[2024-03-20 16:18] LABS: Basophils Percent Auto 0.6 % (0-2); Eosinophils Absolute Auto 0.1 X10*3/uL (0.0-0.4); Hematocrit 44.6 % (42.0-52.0); Hemoglobin 14.4 g/dl (14.0-18.0); Imm Gran Abs Auto 0.02 X10*3/uL (0.00-0.03); Imm Gran Pct Auto 0.6 % (0.0-0.4); Lymphocytes Absolute Auto 1.1 X10*3/uL (1.2-4.9); Lymphocytes Percent Auto 32.9 % (20-40); Mean Corpuscular HGB Conc 32.3 g/dl (31.0-36.0); Mean Corpuscular Hemoglobin 30.8 pg (27.0-33.0); Mean Corpuscular Volume 95.5 fL (80.0-98.0); Mean Platelet Volume 11.9 fL (9.4-12.4); Monocytes Absolute Auto 0.5 X10*3/uL (0.1-1.2); Neutrophils Absolute Auto 1.6 x10*3/uL (2.0-8.3); Neutrophils Percent Auto 47.9 % (45-73); Red Blood Count 4.67 X10*6/uL (4.60-5.80); Red Cell Distribution Width 14.7 % (11.0-16.0); White Blood Count 3.3 X10*3/uL (4.8-10.8)
[2024-03-20 16:19] LABS: Platelet Count 83 X10*3/uL (160-400)
[2024-03-20 16:21] LABS: Prothrombin Time 11.6 SEC (10.9-12.4)
[2024-03-20 16:25] LABS: Alanine Aminotransferase 6 U/L (0-40); Albumin Level 3.2 g/dL (3.5-5.0); Alkaline Phosphatase 34 U/L (39-117); Anion Gap 11 (12-20); Aspartate Amino Transferase 14 U/L (5-37); Bilirubin Direct 0.2 mg/dL (0.0-0.5); Bilirubin Total 0.5 mg/dL (0.0-1.0); Blood Urea Nitrogen 25 mg/dL (9-16); Calcium 8.3 mg/dL (8.4-10.2); Carbon Dioxide 32 mmol/L (22-29); Chloride 106 mmol/L (96-108); Creatinine Clr Calc Pharmacy 113.2; Estimated Glomerular Filt Rate > 60; Glucose Random 92 mg/dL (60-115); Magnesium 2.2 mg/dL (1.6-2.6); Potassium 4.5 mmol/L (3.3-5.1); Sodium 144 mmol/L (135-145); Total Protein 6.3 g/dL (6.5-8.0)
[2024-03-20 16:36] LABS: Troponin-I High Sensitivity < 2.7 ng/L (<3.5-35.0)
[2024-03-20 16:38] LABS: Partial Thromboplastin Time 32.8 SEC (26.0-36.8)
[2024-03-20 16:57] LABS: B Type Natriuretic Peptide 450 pg/mL (<100)
[2024-03-20 17:02] LABS: Influenza A PCR NEGATIVE (Negative); Influenza B PCR NEGATIVE (Negative); Resp Syncy Virus RNA Qual PCR NEGATIVE (Negative); SARS COV2 PCR INHOUSE NEGATIVE (Negative)
[2024-03-20] MEDS: 0.9 % Sodium Chloride 1,000 ML 999 ML IV ×2 (17:10→18:14)
[2024-03-20 17:51] LABS: Lactic Acid 0.9 mmol/L (0.5-2.0)
--- NOTE | 2024-03-20 18:07 | PC.NURSE ---
BP trending down and pt noted with decreased LOC, Selma GARCIA aware, additional fluid boluses ordered. Will place another IV access. A fib on tele. Placed on oxymask as 02 noted from 88-93% on room air and pt primarily mouth breathing sat now on 2lpm via Oxymask 97%. External cath placed.
[2024-03-20] MEDS: Albumin Human 25 % 50 ML 100 ML IV (18:15)
[2024-03-20] MEDS: cefEPime HCl/D5W 2 GM/50 ML PIGGYBACK IV (18:43)
[2024-03-20 18:47] LABS: Appearance Urine Clear; Color Urine Dark Yellow; Glucose Urine UA Negative (Negative); Leukocyte Esterase Urine Negative (Negative); Nitrite Urine Negative (Negative); PH 5.5 (5.0-9.0); Specific Gravity - Urine 1.025 (1.005-1.025); Urine Blood Negative (Negative); Urine Ketones Negative (Negative); Urine Protein Trace mg/dL (Neg-Trace)
[2024-03-20 18:49] LABS: VBG Base Excess 8.6 mmol/L; VBG HCO3 35 mmol/L (22-26); VBG pCO2 60 mmHg; VBG pH 7.38 (7.32-7.43); VBG pO2 28 mmHg
[2024-03-20 18:50] LABS: Venous Blood Gas Refer to POC result
[2024-03-20] MEDS: iohexoL 350 MG/ML 100 ML INFUS..BTL IV (19:47)
--- NOTE | 2024-03-20 21:13 | PM.IMHP ---
History of Present Illness Date of Service: 03/20/24 Chief Complaint: Presyncope and fall This is a 59-year-old male, resident of [facility] with pertinent history of neuroleptic malignant syndrome, intellectual delay, hypertension, mood disorder, seizure disorder who was sent to the emergency department after a fall. Patient had a witnessed fall at the facility without head strike. States he got dizzy and lightheaded before he fell. Did not lose consciousness. No jerking movement of extremities. No urinary or bowel incontinence or tongue bite. Also reports productive cough that has been ongoing for the last few days. Admits weakness and easy fatigability. No fever, chills, chest pain, palpitations, abdominal pain, changes in urinary or bowel habits. In the emergency department, patient was found to be hypotensive initially and blood pressure improved with crystalloid resuscitation. Imaging with left upper lobe pneumonia. Also found to be hypoxic and requiring supplemental oxygen. Review of Systems ENT: Reports dizziness Cardiovascular: Cardiovascular: Reports no additional cardiovascular complaints Respiratory: Respiratory: Reports cough Gastrointestinal: Gastrointestinal: Reports no additional gastrointestinal complaints Neurologic: Reports dizziness [facility] Medical History Neurogenic bladder Constipation Resides in nursing home facility History of GI bleed Seizure disorder Urinary incontinence Osteoarthritis Rectal prolapse Cognitive impairment Hx of deep venous thrombosis Thrombocytopenia Bilateral cataracts Personal history of COVID-19 Diverticular disease Flexion contractures OCD (obsessive compulsive disorder) History of hemodialysis Depression Neuroleptic malignant syndrome Epilepsy Deformity of left hand Generalized anxiety disorder Major depressive disorder Mild cognitive impairment Hypertension Family History Sister Breast CA, Onset Age: 51 Ovarian ca, Onset Age: 55 Father Prostate CA, Onset Age: 70 Mother Colorectal cancer, Onset Age: 39 Kidney carcinoma, Onset Age: 67 Maternal Grandmother Colorectal cancer, Onset Age: 70 Maternal Aunt Colorectal cancer Surgical History History of incisional hernia repair (03/15/22) History of repair of rectocele Hx of appendectomy Hx of colonoscopy Social History Household Members: None Household Members Other:: lives at [facility] Housing: Assisted Living Facility Housing Other:: [facility] Are you a primary care partner to a significant other at home: No Do you presently have visiting nurse or other home services: Yes Unable to assess alcohol history related to: Unable to respond Alcohol intake: never [place] [facility] [place] Tobacco Use Status: Never used Tobacco e-Cigarette/Vaping Use: Never Used Second Hand Smoke Exposure: No Use of substances other than those prescribed or required for medical reasons: No Advance Directives: Yes Advance Directives on File: Yes Advance Directives Date on File: 11/21/19 service: No Current occupational status: disabled Meds Allergies Allergy/AdvReac Type Severity Reaction Status Date / Time aripiprazole [From ABILIFY] Allergy Severe Involuntary Verified 03/20/24 15:21 Spasms droperidol [From INAPSINE] Allergy Severe Involuntary Verified 03/20/24 15:21 Spasms haloperidol [From HALDOL] Allergy Severe Involuntary Verified 03/20/24 15:21 Spasms prochlorperazine Allergy Severe Involuntary Verified 03/20/24 15:21 [From COMPAZINE] Spasms promethazine [From PHENERGAN] Allergy Severe Involuntary Verified 03/20/24 15:21 Spasms sulfamethoxazole Allergy Severe Anaphylaxis Verified 03/20/24 15:21 [From BACTRIM] trimethoprim [From BACTRIM] Allergy Severe Anaphylaxis Verified 03/20/24 15:21 Home Medications ?Medication ?Instructions ?Recorded ?Confirmed ?Last Taken ?Type diazepam 2 mg tablet 2 mg PO TID 11/17/19 02/23/24 03/15/22 History melatonin 1 mg tablet 1 mg PO BEDTIME 11/17/19 02/23/24 11/16/19 History acetaminophen 500 mg tablet 500 mg PO Q6H PRN FEVER/MILD PAIN 02/13/20 02/23/24 Unknown History bisacodyl 10 mg rectal suppository 10 mg AZ Q24H PRN Constipation 02/13/20 02/23/24 Unknown History cholecalciferol (vitamin D3) 25 50 mcg PO DAILY 02/13/20 02/23/24 Unknown History mcg (1,000 unit) tablet ibuprofen 800 mg tablet 800 mg PO Q8H PRN moderate/severe 02/13/20 02/23/24 Unknown History pain pregabalin 100 mg capsule 100 mg PO TID 02/13/20 02/23/2403/15/23 History lactulose 10 gram/15 mL (15 mL) 30 ml PO DAILY Constipation 03/09/22 02/23/24 Unknown History oral solution polyethylene glycol 3350 17 17 g PO BID 03/09/22 02/23/24 Unknown History gram/dose oral powder (Miralax) divalproex 500 mg tablet,extended 500 mg PO BID 04/20/22 02/23/24 Unknown History release 24 hr (Depakote ER) sodium phosphates 19 gram-7 118 ml [place] DAILY PRN Constipation 04/23/22 02/23/24 Unknown History gram/118 mL enema (Fleet Enema) aluminum-mag hydroxide-simethicone 30 ml PO Q4H PRN Heartburn 05/11/22 02/23/24 Unknown History 200 mg-200 mg-20 mg/5 mL oral susp dextromethorphan-guaifenesin 10 10 ml PO Q4H PRN Cough/congestion 05/11/22 02/23/24 Unknown History mg-100 mg/5 mL oral syrup (Tussin DM) psyllium 1 packet PO BID 05/11/22 02/23/24 Unknown History guaifenesin 600 mg tablet, 600 mg PO BID 03/09/23 02/23/24 Unknown History extended release 12 hr divalproex 250 mg tablet,extended 250 mg PO BID 02/23/24 02/23/24 Unknown History release 24 hr (Depakote ER) metoprolol succinate 25 mg 25 mg PO BID 02/23/24 02/23/24 Unknown History tablet,extended release 24 hr midodrine 5 mg tablet 5 mg PO TID@0900,1400,1800 02/23/24 02/23/24 Unknown History nystatin 100,000 unit/gram topical 1 appl topical BID 02/23/24 02/23/24 Unknown History powder sennosides 8.6 mg-docusate sodium 1 tab-cap PO DAILY 02/23/24 02/23/24 Unknown History 50 mg tablet sennosides 8.6 mg-docusate sodium 1 tab-cap PO Q24H PRN Constipation 02/23/24 02/23/24 Unknown History 50 mg tablet Physical Exam Vital Signs and Narrative: Vital Signs: Last Vital Signs Temp 98.0 F 03/20/24 20:39 Pulse 62 03/20/24 20:59 Resp 16 03/20/24 20:59 BP 123/98 H 03/20/24 20:59 Pulse Ox 97 03/20/24 20:59 O2 Del Method Room Air 03/20/24 20:59 O2 Flow Rate 3 03/20/24 20:39 BMI result Body Mass Index 29.5 Middle-aged male lying in bed in no distress Neck supple, no JVD Regular rate and rhythm, S1-S2 heard Left-sided crackles no wheezing Abdomen soft nontender, no guarding, no rigidity Patient is awake, alert and oriented x2, slow but appropriate responses to questions; no focal motor deficit Flat affect No pedal edema Results Labs 03/20/24 15:55 03/20/24 15:55 Labs: Laboratory Results - last 24 hr 03/20/24 03/20/24 03/20/24 15:55 17:17 18:39 MCV 95.5 MCH 30.8 MCHC 32.3 RDW 14.7 Plt Count 83 L D MPV 11.9 Immature Gran % (Auto) 0.6 H Neut % (Auto) 47.9 Lymph % (Auto) 32.9 [place] % (Auto) 14.0 H Eos % (Auto) 4.0 Baso % (Auto) 0.6 Lymph # (Auto) 1.1 L [place] # (Auto) 0.5 Eos # (Auto) 0.1 Baso # (Auto) 0.0 Abs Immat Gran (auto) 0.02 Absolute Neuts (auto) 1.6 L Absolute Nucleated RBC 0.000 Nucleated RBC % (auto) 0.0 PT 11.6 INR 1.0 APTT 32.8 VBG pH VBG pCO2 VBG pO2 VBG HCO3 VBG O2 Saturation VBG Base Excess Anion Gap 11 L Estim Creat Clear Calc 113.2 Estimated GFR > 60 Random Glucose 92 Lactic Acid 0.9 Calcium 8.3 L Magnesium 2.2 Total Bilirubin 0.5 Direct Bilirubin 0.2 AST 14 ALT 6 Alkaline Phosphatase 34 L B-Natriuretic Peptide 450 H Total Protein 6.3 L Albumin 3.2 L Urine Color Dark Yellow Urine Appearance Clear Urine pH 5.5 Ur Specific [place] 1.025 Urine Protein Trace Urine Glucose (UA) Negative Urine Ketones Negative Urine Blood Negative Urine Nitrite Negative Ur Leukocyte Esterase Negative Influenza Type A (PCR) NEGATIVE Influenza Type B (PCR) NEGATIVE RSV RNA Qual (PCR) NEGATIVE SARS-CoV-2 RNA (RT-PCR) NEGATIVE 03/20/24 18:42 MCV MCH MCHC RDW Plt Count MPV Immature Gran % (Auto) Neut % (Auto) Lymph % (Auto) [place] % (Auto) Eos % (Auto) Baso % (Auto) Lymph # (Auto) [place] # (Auto) Eos # (Auto) Baso # (Auto) Abs Immat Gran (auto) Absolute Neuts (auto) Absolute Nucleated RBC Nucleated RBC % (auto) PT INR APTT VBG pH 7.38 VBG pCO2 60 VBG pO2 28 VBG HCO3 35 H VBG O2 Saturation 46.0 VBG Base Excess 8.6 Anion Gap Estim Creat Clear Calc Estimated GFR Random Glucose Lactic Acid Calcium Magnesium Total Bilirubin Direct Bilirubin AST ALT Alkaline Phosphatase B-Natriuretic Peptide Total Protein Albumin Urine Color Urine Appearance Urine pH Ur Specific [place] Urine Protein Urine Glucose (UA) Urine Ketones Urine Blood Urine Nitrite Ur Leukocyte Esterase Influenza Type A (PCR) Influenza Type B (PCR) RSV RNA Qual (PCR) SARS-CoV-2 RNA (RT-PCR) Imaging Radiologist's Impressions: Impressions Chest X-Ray 03/20/24 16:05 IMPRESSION: Increased subtle opacity left midlung, pneumonia is a consideration. Radiographic follow-up with a lateral projection may be of benefit to further elucidate. Electronically signed by: Kal Downey MD 03/20/2024 04:49 PM [facility] Assessment and Plan (1) Hypotension: Status: Acute (2) Pneumonia: Status: Acute (3) New onset a-fib: Status: Acute (4) Hypoxia: Status: Acute Plan This is a 59-year-old male, resident of [facility] with pertinent history of neuroleptic malignant syndrome, intellectual delay, hypertension, mood disorder, seizure disorder who was sent to the emergency department after a fall. #. Fall due to orthostatic presyncope: Patient admits dizziness/lightheadedness prior to the fall. Did not lose consciousness. Orthostatic presyncope as evidenced by hypotension (upon arrival) in the setting of intravascular volume depletion. Blood pressure since has improved with crystalloid resuscitation in the ER. Repeat orthostatics in a.m. #. Acute hypoxemic respiratory failure due to left-sided pneumonia: Recently admitted with right-sided pneumonia but imaging reveals new left upper lobe opacity. Will admit with supplemental oxygen and broad-spectrum IV antibiotics, vancomycin and cefepime. No sepsis. #. New onset AFib: New diagnosis. Rate controlled in the ER. Will obtain TSH and transthoracic echocardiogram. On beta-gilbert. Chads Vasc score 1. Initiating Eliquis #. Seizure disorder/mood disorder: Continue home Lyrica and Depakote Med rec pending DVT prophylaxis: Eliquis Full code Admit as inpatient and will require two night minimum hospital stay for IV antibiotics, supplemental oxygen, monitoring of hemodynamics and heart rate (as above), which is not possible in a lesser acute setting. Quality Stroke Does the patient have a stroke diagnosis?: No VTE Prior VTE?: No VTE Risk Level:: Medical - moderate - high VTE Device Contraindication: Treatment Not Indicated VTE Drug Contraindication: N/A - Med Ordered
[2024-03-20] MEDS: Apixaban 5 MG TABLET PO (22:23)
[2024-03-20] MEDS: vancomycin/NS 2,000 MG/500 ML PLAST..BAG 250 MG IV (22:29)
--- NOTE | 2024-03-20 22:38 | PHA.PROG ---
Admission Date/Time: March 20, 2024 21:11 Indication: Respiratory Weight in k.935 kg Adjusted body weight in Kg: [place] body weight in Kg: Obesity Dosing Indication % IBW: Serum Creatinine - Last 168 Hours 03/20/24 15:55 Creatinine 0.83 Estimated CrCl and GFR - Last 168 Hours 03/20/24 15:55 Estim Creat Clear Calc 113.2 Estimated GFR > 60 Vancomycin Loading Dose: 2000mg Current Vancomycin Dosing Regimen: 1250 Q12H Vancomycin Monitoring using AUC goal of 400 - 600 range with trough as surrogate marker: 508 mg/L Date and Time for next Vancomycin Level to be drawn: 03/21/2024 @2100 Pharmacist Comments on Vancomycin Plan: Vancomycin dosing will take advantage of [employer] as a clinical decision support tool that uses Bayesian modeling to calculate individual patient's pharmacokinetic parameters and forecast the patient's drug concentration time course with the target goal AUC 24 range of 400 - 600 mg/L/hr.
--- NOTE | 2024-03-20 22:51 | PHA.MEDREC ---
Pharmacy Consult ? Medication Reconciliation Pharmacy has completed the medication reconciliation. MED REC COMPLETE USING LIST FROM SNF
[2024-03-21] VITALS (12 sets, daily range): BP systolic 103–154; BP diastolic 62–86; PULSE 66–89; RESP 12–19; TEMP 36.7–37.3; O2SAT 93–97; BMI 29.5
--- NOTE | 2024-03-21 00:30 | PC.NURSE ---
this rn assisted pt in changing bed linens after bowel incontinence pt repositioned to back lights dimmed to promote sleep
[2024-03-21] MEDS: 0.9 % Sodium Chloride Flush 3 ML SYRINGE IVFLUSH ×3 (02:16→15:00)
[2024-03-21] MEDS: cefEPime HCl/D5W 2 GM/50 ML PIGGYBACK IV ×3 (02:18→17:47)
--- NOTE | 2024-03-21 03:45 | PC.NURSE ---
pt calling out stating i peed pt assisted with changing bed linens pt repositioned and boosted in bed lights dimmed to promote sleep
--- NOTE | 2024-03-21 07:00 | CA_ITS ---
Transthoracic Echocardiogram Patient (Last, First, Middle): Matt Iraheta, Gender: Male Date of : 1965 Age: 59 Procedure Date: 03/21/2024 Procedure Type: Transthoracic Echocardiogram [place] [facility] [place] Height: 180.34 cm Weight: 95.71 kg BSA: 2.16 m2 Heart Rate: 74 bpm BP: 107 / 78 mmHg Delivery And Mail Sorter: YARY Referring MD: Garima Snyder MD Boat Laborer: Ant Anthony MD Symptoms: afib Study Quality: Technically Difficult ECG Rhythm: Atrial Fibrillation Conclusions: - 1. Technically limited study 2. Normal LV ejection fraction of 60-65% with mild LVH 3. Limited cardiac valvular Dopplers within normal limits Findings Left Ventricle Normal left ventricular size and systolic function. There is mildly increased left ventricular wall thickness. The visually estimated ejection fraction is between 60-65%. Diastolic function is indeterminate on the basis of available data. Right Ventricle The right ventricle was not well visualized. Atria The left atrium was not well visualized. Interatrial shunt cannot be excluded. The right atrium was not well visualized. Aortic Valve The aortic valve was not well visualized. There is no aortic valve stenosis. There is no aortic valve regurgitation. Mitral Valve The mitral valve was not well visualized. There is trace mitral valve regurgitation. There is no mitral valve stenosis. Pulmonic Valve The pulmonic valve was not well visualized. Tricuspid Valve The tricuspid valve was not well visualized. Great Vessels The aorta was not well visualized. The pulmonary artery was not well visualized. Venous The inferior vena cava was not well visualized. Pericardium/Pleural The pericardium was not well visualized. Measurements 2D Linear Measurements IVSd: 1.08 0.6-0.9/0.6-1.0 cm LVIDd: 4.59 3.9-5.3/4.2-5.9 cm LVIDd Index: 2.13 2.4-3.2/2.2-3.1 cm/m2 LVIDs: 3.37 2.0-3.6 cm LVPWd: 1.24 0.7-1.1 cm LA Diam: 3.60 2.7-3.8/3.0-4.0 cm LAIDs Index: 1.67 1.5-2.3 cm/m2 LV Mass: 242.57 67-162/88-224 g LV Mass Index: 112.30 43-95/49-115 g/m2 LVOT Diam: 2.30 3.0+(-)1.3 cm 2D Systolic Function EF 4C: 66.80 >55% EF 2C: 56.30 >55% EF BiP: 61.10 >55% Mitral Valve MV Pk E: 0.71 MV Decel Time: 307.00 E'Lateral: 15.00 E'Medial: 11.60 E/E' Med: 6.10 E/E' Lat: 4.70 PHT: 90.00 MVA PHT: 2.44 Decel [place]: 2.30 Aortic Valve AoV Pk [place]: 1.04 AoV Mn [place]: 0.76 AoV VTI: 0.18 AoV Pk Grad: 4.00 Aov Mn Grad: 3.00 [place] Cont.VTI: 3.03 LVOT LVOT Pk [place]: 0.74 LVOT Mn [place]: 0.54 LVOT VTI: 0.13 LVOT Pk Grad: 2.00 LVOT Mn Grad: 1.00 LVOT Diam: 2.30 LVOT Area: 4.15 Diastolic Function MV Pk E: 0.71 E'Medial: 11.60 E/E' Med: 6.10 E' Laterial: 15.00 E/E' Lat: 4.70 Right Ventricle TAPSE (mm): 19.70 TVS' [place]: 11.30 Tricuspid Valve RA Press: 3.00 Great Vessels Aorta Sinus of Valsalva: 3.60 2.0-3.5 cm Ao Asc: 3.20 2.1-3.4 cm Pulmonary Valve PV Pk [place]: 0.73 Peak PV Grad: 2.00 Updated in Other Vendor System with Status of Final Ant Anthony MD electronically signed on 03/21/2024 3:26:21 PM with status of Final
[2024-03-21 07:03] LABS: Anion Gap 12 (12-20); Blood Urea Nitrogen 16 mg/dL (9-16); Calcium 7.8 mg/dL (8.4-10.2); Carbon Dioxide 25 mmol/L (22-29); Chloride 114 mmol/L (96-108); Creatinine Clr Calc Pharmacy 130.5; Estimated Glomerular Filt Rate > 60; Glucose Random 86 mg/dL (60-115); Potassium 4.5 mmol/L (3.3-5.1); Sodium 146 mmol/L (135-145)
--- NOTE | 2024-03-21 09:05 | MHC.CM.PN ---
Patient is a LTC Resident @ [facility] and it is the goal for him to return there at dc via BLS. CM has initiated and will follow for dc planning. Sister/Elizabeth is the HCP.
--- NOTE | 2024-03-21 09:08 | HO.PM.IMPN ---
Subjective Subjective Date of Service: 03/21/24 Interval History: no complaints Physical Exam Vital Signs: Vital Signs: Last Vital Signs Temp 98.0 F 03/21/24 05:26 Pulse 89 03/21/24 05:26 Resp 17 03/21/24 05:26 BP 107/78 03/21/24 05:26 Pulse Ox 93 03/21/24 05:26 O2 Del Method Room Air 03/21/24 05:26 O2 Flow Rate 3 03/20/24 20:39 BMI result Body Mass Index 29.5 General: AO X 3, no acute distress Resp: CTA bilateral, no accessory muscles used CVS: S1,S2,RRR GI: soft, non tender, non distended Neuro: motor grossly intact, alert Psych: appropriate affect, impaired insight Objective Data Active Medications Acetaminophen (Acetaminophen 325 Mg Tablet) 650 mg PO Q6H PRN PRN Reason: Pain, Mild 1-3,fever,headache Apixaban (Apixaban 5 Mg Tablet) 5 mg PO BID [facility] Calcium Carbonate (Calcium Carbonate 750 Mg Tab.Chew) 750 mg PO Q4H PRN PRN Reason: Heartburn Diazepam (Diazepam 2 Mg Tablet) 2 mg PO TID [facility] Divalproex Sodium (Divalproex Sodium Er 250 Mg Tab.Er.24h) 250 mg PO BID [place] Divalproex Sodium (Divalproex Sodium Er 500 Mg Tab.Er.24h) 500 mg PO BID [facility] Guaifenesin (Guaifenesin [place] 600 Mg Tab.Er.12h) 600 mg PO BID [facility] Cefepime HCl (Maxipime) 2 gm in 50 mls @ 100 mls/hr IV Q8H [facility] Last Infusion: 03/21/24 03:00 Dose: Infused Documented By: ROSETTA Vancomycin HCl 1,250 mg/ (Sodium Chloride) 250 mls @ 166.667 mls/hr IV Q12H [facility] Magnesium Hydroxide (Milk Of Magnesia 30 Ml Oral.Susp) 30 ml PO DAILY PRN PRN Reason: Constipation Melatonin (Melatonin 3 Mg Tablet) 6 mg PO BEDTIME PRN PRN Reason: Insomnia Metoprolol Succinate (Metoprolol Succinate Er 25 Mg Tab.Er.24h) 25 mg PO BID [facility]; Protocol Midodrine (Midodrine Hcl 5 Mg Tablet) 5 mg PO TID@0900,1400,1800 [facility] Nystatin (Nystatin Powder 15 Gm Bottle) 1 appl TOPICAL BID [facility]; Protocol Ondansetron HCl (Ondansetron Hcl 4 Mg/2 Ml Vial) 4 mg IVPUSH Q8H PRN PRN Reason: Nausea and Vomiting Pharmacy Consult (Consult Rx Vancomycin Dosing) 1 each MISCELLANE DAILY PRN PRN Reason: Consult order Pregabalin (Pregabalin 100 Mg Capsule) 100 mg PO TID [facility] Psyllium Hydrophilic Mucilloid (Psyllium Seed 3.7 Gm Packet) 3.7 gm PO BID [facility] Sodium Chloride (0.9 % Sodium Chloride Flush 3 Ml Syringe) 3 ml IVFLUSH QSHIFT [facility] Last Admin: 03/21/24 08:24 Dose: 3 ml Documented By: MATTHEW Vitamin D (Cholecalciferol (Vitamin D3) 25 Mcg Tablet) 50 mcg PO DAILY [facility] Labs 03/20/24 15:55 03/21/24 06:32 Labs: Laboratory Results - last 24 hr 03/20/24 03/20/24 03/20/24 15:55 17:17 18:39 MCV 95.5 MCH 30.8 MCHC 32.3 RDW 14.7 Plt Count 83 L D MPV 11.9 Immature Gran % (Auto) 0.6 H Neut % (Auto) 47.9 Lymph % (Auto) 32.9 [place] % (Auto) 14.0 H Eos % (Auto) 4.0 Baso % (Auto) 0.6 Lymph # (Auto) 1.1 L [place] # (Auto) 0.5 Eos # (Auto) 0.1 Baso # (Auto) 0.0 Abs Immat Gran (auto) 0.02 Absolute Neuts (auto) 1.6 L Absolute Nucleated RBC 0.000 Nucleated RBC % (auto) 0.0 PT 11.6 INR 1.0 APTT 32.8 VBG pH VBG pCO2 VBG pO2 VBG HCO3 VBG O2 Saturation VBG Base Excess Anion Gap 11 L Estim Creat Clear Calc 113.2 Estimated GFR > 60 Random Glucose 92 Lactic Acid 0.9 Calcium 8.3 L Magnesium 2.2 Total Bilirubin 0.5 Direct Bilirubin 0.2 AST 14 ALT 6 Alkaline Phosphatase 34 L B-Natriuretic Peptide 450 H Total Protein 6.3 L Albumin 3.2 L Urine Color Dark Yellow Urine Appearance Clear Urine pH 5.5 Ur Specific [place] 1.025 Urine Protein Trace Urine Glucose (UA) Negative Urine Ketones Negative Urine Blood Negative Urine Nitrite Negative Ur Leukocyte Esterase Negative Influenza Type A (PCR) NEGATIVE Influenza Type B (PCR) NEGATIVE RSV RNA Qual (PCR) NEGATIVE SARS-CoV-2 RNA (RT-PCR) NEGATIVE 03/20/24 03/21/24 18:42 06:32 MCV MCH MCHC RDW Plt Count MPV Immature Gran % (Auto) Neut % (Auto) Lymph % (Auto) [place] % (Auto) Eos % (Auto) Baso % (Auto) Lymph # (Auto) [place] # (Auto) Eos # (Auto) Baso # (Auto) Abs Immat Gran (auto) Absolute Neuts (auto) Absolute Nucleated RBC Nucleated RBC % (auto) PT INR APTT VBG pH 7.38 VBG pCO2 60 VBG pO2 28 VBG HCO3 35 H VBG O2 Saturation 46.0 VBG Base Excess 8.6 Anion Gap 12 Estim Creat Clear Calc 130.5 Estimated GFR > 60 Random Glucose 86 Lactic Acid Calcium 7.8 L D Magnesium Total Bilirubin Direct Bilirubin AST ALT Alkaline Phosphatase B-Natriuretic Peptide Total Protein Albumin Urine Color Urine Appearance Urine pH Ur Specific [place] Urine Protein Urine Glucose (UA) Urine Ketones Urine Blood Urine Nitrite Ur Leukocyte Esterase Influenza Type A (PCR) Influenza Type B (PCR) RSV RNA Qual (PCR) SARS-CoV-2 RNA (RT-PCR) Assessment and Plan (1) Pneumonia: Status: Acute Plan 59M PMH neuroleptic malignant syndrome, intellectual delay, hypertension, mood disorder, seizure disorder presented after fall found to have new onset AFib Fall due to orthostatic hypotension Resolved Acute hypoxic respiratory failure secondary to pneumonia Now on room air, doubt MRSA and will DC vanco, continue cefepime Follow up cultures New onset AFib Follow up echo, continue metoprolol, Eliquis Seizure Continue Depakote DVT prophylaxis on Eliquis Full Code reason for continued hospitalization: Working up new onset AFib Quality Stroke Does the patient have a stroke diagnosis?: No VTE Prior VTE?: No VTE Risk Level:: Medical - moderate - high VTE Device Contraindication: Treatment Not Indicated VTE Drug Contraindication: N/A - Med Ordered
[2024-03-21 09:50] LABS: Hematocrit 41.9 % (42.0-52.0); Hemoglobin 13.8 g/dl (14.0-18.0); Mean Corpuscular HGB Conc 32.9 g/dl (31.0-36.0); Mean Corpuscular Volume 94.2 fL (80.0-98.0); Mean Platelet Volume 11.7 fL (9.4-12.4); Red Blood Count 4.45 X10*6/uL (4.60-5.80); Red Cell Distribution Width 14.8 % (11.0-16.0); White Blood Count 3.7 X10*3/uL (4.8-10.8)
[2024-03-21 09:51] LABS: Platelet Count 74 X10*3/uL (160-400)
[2024-03-21] MEDS: Nystatin Powder 15 GM BOTTLE 1 APPL TOPICAL ×2 (11:14→19:59)
[2024-03-21] MEDS: Divalproex Sodium ER 500 MG TAB.ER.24H PO ×2 (11:15→19:58)
[2024-03-21] MEDS: diazePAM 2 MG TABLET PO ×3 (11:15→19:59)
[2024-03-21] MEDS: Apixaban 5 MG TABLET PO ×2 (11:15→19:58)
[2024-03-21] MEDS: Divalproex Sodium ER 250 MG TAB.ER.24H PO ×2 (11:15→19:58)
[2024-03-21] MEDS: guaiFENesin LA 600 MG TAB.ER.12H PO ×2 (11:15→19:58)
[2024-03-21] MEDS: Cholecalciferol (Vitamin D3) 25 MCG TABLET 50 MCG PO (11:16)
[2024-03-21] MEDS: Metoprolol Succinate ER 25 MG TAB.ER.24H PO ×2 (11:16→20:03)
[2024-03-21] MEDS: Pregabalin 100 MG CAPSULE PO ×3 (11:16→19:59)
[2024-03-21] MEDS: Midodrine HCl 5 MG TABLET PO ×3 (11:20→17:47)
[2024-03-21] MEDS: Psyllium seed 3.7 GM PACKET PO (19:59)
[2024-03-21] MEDS: Melatonin 3 MG TABLET 6 MG PO (19:59)
[2024-03-22] VITALS (7 sets, daily range): BP systolic 98–123; BP diastolic 60–87; PULSE 62–70; RESP 16–19; TEMP 36.6–37.2; O2SAT 93–96
[2024-03-22] MEDS: cefEPime HCl/D5W 2 GM/50 ML PIGGYBACK IV ×3 (03:07→16:56)
[2024-03-22 07:58] LABS: Hematocrit 42.1 % (42.0-52.0); Mean Corpuscular HGB Conc 33.3 g/dl (31.0-36.0); Mean Corpuscular Hemoglobin 30.7 pg (27.0-33.0); Mean Corpuscular Volume 92.3 fL (80.0-98.0); Mean Platelet Volume 11.2 fL (9.4-12.4); Platelet Count 78 X10*3/uL (160-400); Red Blood Count 4.56 X10*6/uL (4.60-5.80); Red Cell Distribution Width 14.4 % (11.0-16.0); White Blood Count 4.2 X10*3/uL (4.8-10.8)
[2024-03-22 08:04] LABS: Anion Gap 11 (12-20); Blood Urea Nitrogen 12 mg/dL (9-16); Calcium 8.4 mg/dL (8.4-10.2); Carbon Dioxide 30 mmol/L (22-29); Chloride 109 mmol/L (96-108); Creatinine Clr Calc Pharmacy 136.2; Estimated Glomerular Filt Rate > 60; Glucose Random 91 mg/dL (60-115); Magnesium 1.9 mg/dL (1.6-2.6); Potassium 3.6 mmol/L (3.3-5.1); Sodium 146 mmol/L (135-145)
--- NOTE | 2024-03-22 08:59 | P.PNIM_ITS ---
Subjective Subjective Date of Service: 03/22/24 Interval History: Diarrhea Physical Exam 2 Vital Signs: Vital Signs: Last Vital Signs Temp 99.0 F 03/22/24 07:37 Pulse 68 03/22/24 07:37 Resp 18 03/22/24 07:37 BP 105/76 03/22/24 07:37 Pulse Ox 93 03/22/24 07:37 O2 Del Method Room Air 03/22/24 07:37 O2 Flow Rate 3 03/20/24 20:39 BMI result Body Mass Index 29.5 General: AO X 3, no acute distress Resp: CTA bilateral, no accessory muscles used CVS: S1,S2,RRR GI: soft, non tender, non distended Neuro: motor grossly intact, alert Psych: appropriate affect, impaired insight Objective Data Active Medications Acetaminophen (Acetaminophen 325 Mg Tablet) 650 mg PO Q6H PRN PRN Reason: Pain, Mild 1-3,fever,headache Apixaban (Apixaban 5 Mg Tablet) 5 mg PO BID [facility] Last Admin: 03/21/24 19:58 Dose: 5 mg Documented By: SEBAS Calcium Carbonate (Calcium Carbonate 750 Mg Tab.Chew) 750 mg PO Q4H PRN PRN Reason: Heartburn Diazepam (Diazepam 2 Mg Tablet) 2 mg PO TID [facility] Last Admin: 03/21/24 19:59 Dose: 2 mg Documented By: SEBAS Divalproex Sodium (Divalproex Sodium Er 250 Mg Tab.Er.24h) 250 mg PO BID [facility] Last Admin: 03/21/24 19:58 Dose: 250 mg Documented By: SEBAS Divalproex Sodium (Divalproex Sodium Er 500 Mg Tab.Er.24h) 500 mg PO BID [facility] Last Admin: 03/21/24 19:58 Dose: 500 mg Documented By: SEBAS Guaifenesin (Guaifenesin La 600 Mg Tab.Er.12h) 600 mg PO BID [facility] Last Admin: 03/21/24 19:58 Dose: 600 mg Documented By: SEBAS Cefepime HCl (Maxipime) 2 gm in 50 mls @ 100 mls/hr IV Q8H [facility] Last Infusion: 03/22/24 03:58 Dose: Infused Documented By: SEBAS Magnesium Hydroxide (Milk Of Magnesia 30 Ml Oral.Susp) 30 ml PO DAILY PRN PRN Reason: Constipation Melatonin (Melatonin 3 Mg Tablet) 6 mg PO BEDTIME PRN PRN Reason: Insomnia Last Admin: 03/21/24 19:59 Dose: 6 mg Documented By: SEBAS Metoprolol Succinate (Metoprolol Succinate Er 25 Mg Tab.Er.24h) 25 mg PO BID [facility]; Protocol Last Admin: 03/21/24 20:03 Dose: 25 mg Documented By: SEBAS Midodrine (Midodrine Hcl 5 Mg Tablet) 5 mg PO TID@0900,1400,1800 [facility] Last Admin: 03/21/24 17:47 Dose: 5 mg Documented By: MANDA Nystatin (Nystatin Powder 15 Gm Bottle) 1 appl TOPICAL BID [facility]; Protocol Last Admin: 03/21/24 19:59 Dose: 1 appl Documented By: SEBAS Ondansetron HCl (Ondansetron Hcl 4 Mg/2 Ml Vial) 4 mg IVPUSH Q8H PRN PRN Reason: Nausea and Vomiting Pregabalin (Pregabalin 100 Mg Capsule) 100 mg PO TID [facility] Last Admin: 03/21/24 19:59 Dose: 100 mg Documented By: SEBAS Psyllium Hydrophilic Mucilloid (Psyllium Seed 3.7 Gm Packet) 3.7 gm PO BID [facility] Last Admin: 03/21/24 19:59 Dose: 3.7 gm Documented By: SEBAS Sodium Chloride (0.9 % Sodium Chloride Flush 3 Ml Syringe) 3 ml IVFLUSH QSHIFT [facility] Last Admin: 03/22/24 00:35 Dose: Not Given Documented By: SEBAS Non-Admin Reason: Previously Administered Vitamin D (Cholecalciferol (Vitamin D3) 25 Mcg Tablet) 50 mcg PO DAILY [facility] Last Admin: 03/21/24 11:16 Dose: 50 mcg Documented By: MANDA Labs 03/22/24 07:25 03/22/24 07:25 Labs: Laboratory Results - last 24 hr 03/21/24 03/22/24 09:14 07:25 MCV 94.2 92.3 MCH 31.0 30.7 MCHC 32.9 33.3 RDW 14.8 14.4 Plt Count 74 L 78 L MPV 11.7 11.2 Absolute Nucleated RBC 0.000 0.000 Nucleated RBC % (auto) 0.0 0.0 Anion Gap 11 L Estim Creat Clear Calc 136.2 Estimated GFR > 60 Random Glucose 91 Calcium 8.4 D Magnesium 1.9 TSH 2.20 Microbiology Microbiology Results: Microbiology 03/20/24 10:17 Blood Culture - Preliminary Blood - Venous No growth after 24 hours. 03/20/24 10:17 Blood Culture - Preliminary Blood - Venous No growth after 24 hours. Assessment and Plan (1) Pneumonia: Status: Acute Plan 59M PMH neuroleptic malignant syndrome, intellectual delay, hypertension, mood disorder, seizure disorder presented after fall found to have new onset AFib Fall due to orthostatic hypotension Resolved Acute hypoxic respiratory failure secondary to pneumonia Now on room air, continue cefepime Follow up cultures Diarrhea Check stool studies New onset AFib Echo unremarkable, continue metoprolol, Eliquis Rate controlled Seizure Continue Depakote DVT prophylaxis on Eliquis Full Code reason for continued hospitalization: Working up diarrhea Quality Stroke Does the patient have a stroke diagnosis?: No VTE Prior VTE?: No VTE Risk Level:: Medical - moderate - high VTE Device Contraindication: Treatment Not Indicated VTE Drug Contraindication: N/A - Med Ordered
[2024-03-22] MEDS: diazePAM 2 MG TABLET PO ×3 (09:36→20:11)
[2024-03-22] MEDS: guaiFENesin LA 600 MG TAB.ER.12H PO ×2 (09:36→20:11)
[2024-03-22] MEDS: 0.9 % Sodium Chloride Flush 3 ML SYRINGE IVFLUSH ×3 (09:36→20:12)
[2024-03-22] MEDS: Apixaban 5 MG TABLET PO ×2 (09:37→20:11)
[2024-03-22] MEDS: Pregabalin 100 MG CAPSULE PO ×3 (09:37→20:11)
[2024-03-22] MEDS: Divalproex Sodium ER 500 MG TAB.ER.24H PO ×2 (09:37→20:11)
[2024-03-22] MEDS: Metoprolol Succinate ER 25 MG TAB.ER.24H PO ×2 (09:37→20:11)
[2024-03-22] MEDS: Divalproex Sodium ER 250 MG TAB.ER.24H PO ×2 (09:37→20:11)
[2024-03-22] MEDS: Nystatin Powder 15 GM BOTTLE 1 APPL TOPICAL ×2 (09:37→20:20)
[2024-03-22] MEDS: Midodrine HCl 5 MG TABLET PO ×3 (09:41→17:37)
[2024-03-22] MEDS: Cholecalciferol (Vitamin D3) 25 MCG TABLET 50 MCG PO (09:41)
[2024-03-22 13:38] LABS: CDiff Gene PCR NEGATIVE (Negative)
[2024-03-22 14:40] LABS: Adenovirus F 40/41 Not Detected (Not Detect.); Astrovirus Not Detected (Not Detect.); Campylobacter Not Detected (Not Detect.); Cryptosporidium Not Detected (Not Detect.); Cyclospora cayetanensis Not Detected (Not Detect.); E. coli EAEC Not Detected (Not Detect.); E. coli EPEC Not Detected (Not Detect.); E. coli ETEC Not Detected (Not Detect.); E. coli STEC Not Detected (Not Detect.); Entamoeba histolytica Not Detected (Not Detect.); Giardia lamblia Not Detected (Not Detect.); Plesiomonas shigelloides Not Detected (Not Detect.); Rotavirus A Not Detected (Not Detect.); Salmonella Not Detected (Not Detect.); Sapovirus Detected (Not Detect.); Shigella sp./EIEC Not Detected (Not Detect.); Vibrio Not Detected (Not Detect.); Vibrio Cholerae Not Detected (Not Detect.); Yersinia enterocolitica Not Detected (Not Detect.)
[2024-03-22 15:06] LABS: Norovirus GI/GII Detected (Not Detect.)
[2024-03-22] MEDS: Psyllium seed 3.7 GM PACKET PO (20:11)
[2024-03-22] MEDS: Melatonin 3 MG TABLET 6 MG PO (20:11)
[2024-03-23] MEDS: cefEPime HCl/D5W 2 GM/50 ML PIGGYBACK IV ×2 (02:31→08:58)
[2024-03-23 04:00] VITALS: BP 128/77; PULSE 61; RESP 20; TEMP 37.2; O2SAT 93
[2024-03-23 07:41] VITALS: BP 119/71; PULSE 57; RESP 16; TEMP 36.9; O2SAT 95
[2024-03-23] MEDS: diazePAM 2 MG TABLET PO ×2 (08:58→15:04)
[2024-03-23] MEDS: Cholecalciferol (Vitamin D3) 25 MCG TABLET 50 MCG PO (08:58)
[2024-03-23] MEDS: Pregabalin 100 MG CAPSULE PO ×2 (08:58→15:04)
[2024-03-23] MEDS: Apixaban 5 MG TABLET PO (08:58)
[2024-03-23] MEDS: Divalproex Sodium ER 250 MG TAB.ER.24H PO (08:58)
[2024-03-23] MEDS: Divalproex Sodium ER 500 MG TAB.ER.24H PO (08:58)
[2024-03-23] MEDS: Metoprolol Succinate ER 25 MG TAB.ER.24H PO (08:58)
[2024-03-23] MEDS: guaiFENesin LA 600 MG TAB.ER.12H PO (08:59)
[2024-03-23] MEDS: 0.9 % Sodium Chloride Flush 3 ML SYRINGE IVFLUSH ×2 (08:59→15:05)
[2024-03-23 09:00] VITALS: PULSE 64; RESP 16
[2024-03-23] MEDS: Midodrine HCl 5 MG TABLET PO ×2 (09:00→15:04)
[2024-03-23] MEDS: Nystatin Powder 15 GM BOTTLE 1 APPL TOPICAL (09:01)
--- NOTE | 2024-03-23 10:16 | PM.DS ---
DS: Providers Provider Date of Service: 03/23/24 Date of admission: 03/20/24 21:11 Date of discharge: 03/23/24 Primary care physician: Augustine Dan DO DS: Diagnosis Discharge Diagnosis (1) Pneumonia: Status: Acute DS: Summary Hospital Course Hospital Course: From initial hpi: 59-year-old male, resident of [facility] with pertinent history of neuroleptic malignant syndrome, intellectual delay, hypertension, mood disorder, seizure disorder who was sent to the emergency department after a fall. Patient had a witnessed fall at the facility without head strike. States he got dizzy and lightheaded before he fell. Did not lose consciousness. No jerking movement of extremities. No urinary or bowel incontinence or tongue bite. Also reports productive cough that has been ongoing for the last few days. Admits weakness and easy fatigability. No fever, chills, chest pain, palpitations, abdominal pain, changes in urinary or bowel habits. In the emergency department, patient was found to be hypotensive initially and blood pressure improved with crystalloid resuscitation. Imaging with left upper lobe pneumonia. Also found to be hypoxic and requiring supplemental oxygen. Hospital course: Patient was admitted for fall due to orthostatic hypotension which resolved. Also had acute hypoxic respiratory failure due to pneumonia which was treated with cefepime, was weaned to room air and will be discharged on 5 more days of Ceftin. Patient noted to have diarrhea stool studies revealed norovirus. Stool softeners have been held and should be held until diarrhea resolves. Course complicated by new onset atrial fibrillation with normal rate. Was continued on baseline metoprolol and Eliquis added. Echo was unremarkable. For seizure disorder was continued on Depakote. Patient is feeling better will be discharged back to [facility]. Time Attestation Discharge Coordination Time (in mins): 33 Quality: Safe Use of Opioids Does Pt have an Active Cancer Diagnosis on the Problem List?: No Quality: Stroke Does the patient have a stroke diagnosis?: No Physical Exam Vital Signs: Vital Signs: Last Vital Signs Temp 98.4 F 03/23/24 07:41 Pulse 64 03/23/24 09:00 Resp 16 03/23/24 09:00 BP 119/71 03/23/24 07:41 Pulse Ox 95 03/23/24 07:41 O2 Del Method Room Air 03/23/24 07:41 O2 Flow Rate 3 03/20/24 20:39 BMI result Body Mass Index 29.5 General: AO X 3, no acute distress Resp: CTA bilateral, no accessory muscles used CVS: S1,S2,RRR GI: soft, non tender, non distended Neuro: motor grossly intact, alert Psych: appropriate affect, impaired insight DS: Data Data Completed and Pending Completed studies during hospitalization [Text1]: Procedures Insertion of Infusion Device into Superior Vena Cava, Percutaneous Approach (03/09/23) Introduction of Vasopressor into Central Vein, Percutaneous Approach (03/09/23) Supplement Abdominal Wall with Synthetic Substitute, Open Approach (03/15/22) Ultrasonography of Superior Vena Cava, Guidance (03/09/23) Labs on day of discharge: Laboratory Results - last 24 hr 03/22/24 03/22/24 08:47 12:13 Stl C. cayetanensis PCR Cancelled Not Detected Stool Rotavirus A PCR Cancelled Not Detected Stl Adenov F 40/41 PCR Cancelled Not Detected Stool Astrovirus (PCR) Cancelled Not Detected Stool Campylobacter PCR Cancelled Not Detected Stool Cryptosporidium PCR Cancelled Not Detected Stl Sh Tox Pr E STEC PCR Cancelled Not Detected Stool E coli O157 PCR Cancelled Not applicable Stl Enterotoxigenic E PCR Cancelled Not Detected Stool EPEC (PCR) Cancelled Not Detected Stool EAEC (PCR) Cancelled Not Detected Stl E. histolytica PCR Cancelled Not Detected Stool Giardia Lamblia PCR Cancelled Not Detected Stl P. shigelloides PCR Cancelled Not Detected Stool Salmonella PCR Cancelled Not Detected Stool Sapovirus (PCR) Cancelled Detected A Stl Shigella/EIEC PCR Cancelled Not Detected St Y.enterocolitica PCR Cancelled Not Detected Stool Vibrio (PCR) Cancelled Not Detected Stl Vibrio cholerae PCR Cancelled Not Detected Stl Norovirus GI/GII PCR Cancelled Detected A C. difficile Tox B Gene NEGATIVE Preliminary micro results at discharge 03/20/24 10:17 Blood Culture - Preliminary Blood - Venous No growth after 48 hours. 03/20/24 10:17 Blood Culture - Preliminary Blood - Venous No growth after 48 hours. Discharge Plan Discharge Anticipated Discharge Date/Time: 03/23/24 10:11 Patient Disposition: Xfer SNF Discharge Diagnosis: new afib, norovirus, pna Referrals: Augustine Dan DO [Primary Care Provider] - 1 Week Discharge Medications: New Eliquis 5 mg Tablet 5 mg PO BID Qty: 0 0RF cefuroxime axetil 500 mg tablet 500 mg PO BID Qty: 10 0RF Continued (DME) abdominal binder 2xl See Rx Instructions .Route .MEDSUPPLY Qty: 1 0RF Rx Instructions: Pt to wear binder during daytime hours - may remove for shower diazepam 2 mg Tablet 2 mg PO TID melatonin 1 mg Tablet 1 mg PO BEDTIME acetaminophen 500 mg Tablet 500 mg PO Q6H MDD 3g PRN (Reason: FEVER/MILD PAIN) pregabalin 100 mg Capsule 100 mg PO TID cholecalciferol (vitamin D3) 25 mcg (1,000 unit) Tablet 50 mcg PO DAILY midodrine 5 mg Tablet 5 mg PO TID@0900,1400,1800 Rx Instructions: do not give last dose of day after 6PM or within 4 hrs of bedtime metoprolol succinate 25 mg Tablet Extended Release 24 Hr 25 mg PO BID Protocol: Hold for SBP/HR < HOLD for SBP < : 100 HOLD for HR < : 60 nystatin 100,000 unit/gram Powder 1 appl TOPICAL BID Rx Instructions: to groin and groin creases divalproex [Depakote ER] 250 mg Tablet Extended Release 24 Hr 250 mg PO BID Rx Instructions: with 500 mg = 750mg bid psyllium Packet 1 packet PO BID dextromethorphan-guaifenesin [Tussin DM] 10-100 mg/5 mL Syrup 10 ml PO Q4H PRN (Reason: Cough/congestion) alum-mag hydroxide-simeth 200-200-20 mg/5 mL Suspension 30 ml PO Q4H PRN (Reason: HEARTBURN OR NAUSEA) Rx Instructions: administer between meals and at bedtime guaifenesin 600 mg Tablet Extended Release 12hr 600 mg PO BID Rx Instructions: take with plenty of water ondansetron 4 mg Tablet,Disintegrating 4 mg PO Q6H PRN (Reason: NAUSEA, VOMITING) divalproex [Depakote ER] 500 mg tablet extended release 24 hr 500 mg PO BID Rx Instructions: with 250 mg = 750mg bid Held polyethylene glycol 3350 [Miralax] 17 gram/dose powder 17 g PO BID Hold Instructions: Resume on 03/31/24. Rx Instructions: dilute in 6-8 ounces of fluid sennosides-docusate sodium 8.6-50 mg Tablet 1 tab-cap PO DAILY Hold Instructions: Resume on 03/31/24. Discontinued ibuprofen 800 mg Tablet 800 mg PO TID Rx Instructions: GIVE WITH FOOD OR MILK Discharge Orders: Discharge Order (Routine); Ordered 03/23/24 Ordered By: Greg Mckeon Diet: Advance to usual diet Activity on Discharge: As tolerated Stand Alone Forms: Patient Portal Discharge page Print Language: Malian Care Plan Goals: recovery Health Concerns: New onset AFib, pneumonia, norovirus Plan of Treatment: Five more days of Ceftin, hold stool softeners until resolution of diarrhea Started on Eliquis Assessment: See above
[2024-03-23 11:20] VITALS: BP 122/70; PULSE 63; RESP 16; TEMP 37.1; O2SAT 94
--- NOTE | 2024-03-23 12:11 | MHC.CM.PN ---
Addendum entered by Ifrah Eaton 03/23/24 14:57: CM RECEIVED A RETURN CALL FROM PTS HCP/SISTER, ELSIE FRAIRE, SHE IS AWARE PT WILL RETURN TO [facility] TODAY AT 1630 HOURS Addendum entered by Ifrah Eaton 03/23/24 14:41: CM RECEIVED NO RESPONSE FROM [facility] CM CALLED THE NURSING RETAIL PRODUCT ADVISOR AT [facility] AND INFORMED HER OF PTS PENDING RETURN TRANSPORT BOOKED FOR 1630 V[address] [employer] VM MESSAGE LEFT FOR HCP, ELSIE NGUYEN [phone] Original Note: PT MEDICALLY CLEARED FOR DC UPDATES SENT TO SNF FOR REVIEW AWAITING RESPONSE TO ARRANGE TIME FOR TRANSPORT
[2024-03-23 15:04] VITALS: BP 106/61
[2024-03-23 15:29] VITALS: BP 106/61; PULSE 68; TEMP 37.2; O2SAT 95
== END 2024-03-23 18:28 | disposition skilled nursing facility (03) | DRG 139 ==
LOC: HO.ED 21:07 → HO.EDOVER 21:27 → HO.IMC 03-21 07:34
PROVIDERS: Physician Assistant; Admitting Provider Student in an Organized Health Care Education/Training Program; Emergency Provider Emergency Medicine Emergency Medical Services; PCP Hospitalist; Visit Provider Internal Medicine
DX: J18.9 Pneumonia, unspecified organism (principal); J96.01 Acute respiratory failure with hypoxia; I95.1 Orthostatic hypotension; G40.909 Epilepsy, unspecified, not intractable, without status epilepticus; A08.11 Acute gastroenteropathy due to Norwalk agent; I48.91 Unspecified atrial fibrillation; W19.XXXA Unspecified fall, initial encounter; Z20.822 Contact with and (suspected) exposure to COVID-19; Z79.899 Other long term (current) drug therapy
CPT/HCPCS: 0241U; 36415; 71045; 71275; 80048; 80076; 81003; 82803; 83605; 83735; 83880; 84443; 84484; 85025; 85027; 85610; 85730; 87040; 87493; 87507; 93005; 93306; 94640; 99285; J0692; J3370; P9047; Q9957; Q9967

== ENCOUNTER → 2024-03-20 15:25 | Outpatient (BNV) | payer MEDICAID, SELFPAY | PROVIDERS: Emergency Provider Emergency Medicine Emergency Medical Services; Visit Provider Radiology Diagnostic Radiology | DX: R91.8 Other nonspecific abnormal finding of lung field (principal); R06.89 Other abnormalities of breathing | CPT/HCPCS: 71045; 71275 ==

== ENCOUNTER → 2024-03-20 15:25 | Outpatient (BNV) | payer MEDICAID, SELFPAY | PROVIDERS: Admitting Provider Student in an Organized Health Care Education/Training Program; Emergency Provider Emergency Medicine Emergency Medical Services; PCP Hospitalist; Visit Provider Internal Medicine Cardiovascular Disease | DX: I48.91 Unspecified atrial fibrillation (principal) | CPT/HCPCS: 93010 ==

== ENCOUNTER 2024-03-20 21:11 | Outpatient (BNV) | payer MEDICAID, SELFPAY | END 2024-03-21 07:00 | PROVIDERS: Admitting Provider Student in an Organized Health Care Education/Training Program; Emergency Provider Emergency Medicine Emergency Medical Services; PCP Hospitalist; Visit Provider Internal Medicine Cardiovascular Disease | DX: I48.91 Unspecified atrial fibrillation (principal) | CPT/HCPCS: 93306 ==

== ENCOUNTER → 2024-03-20 21:11 | Outpatient (BNV) | payer MEDICAID, SELFPAY | PROVIDERS: Admitting Provider Student in an Organized Health Care Education/Training Program; Emergency Provider Emergency Medicine Emergency Medical Services; Visit Provider Student in an Organized Health Care Education/Training Program | DX: J18.9 Pneumonia, unspecified organism (principal) | CPT/HCPCS: 99223; 99232; 99233; 99239 ==

== ENCOUNTER 2024-05-13 15:13 | Emergency (ER) | payer MEDICAID, SELFPAY ==
--- NOTE | ~2024-05-13 | XR_ITS ---
EXAMINATION: XR CHEST CLINICAL INFORMATION: weakness COMPARISON: March 20, [address] images chest dated March 20, 2024. TECHNIQUE: Frontal view of the chest was obtained. FINDINGS: Poor inspiration. No consolidation, pleural effusion or pneumothorax. Cardiomediastinal silhouette size is normal. Multilevel thoracic and upper lumbar spondylosis. Degenerative changes in the shoulders. Calcification in the inferior left glenoid humeral joint. XR/XR chest 1V IMPRESSION: No acute airspace disease. Electronically signed by: Paul Rangel MD 05/13/2024 03:59 PM EDT
[2024-05-13 15:34] VITALS: BP 126/84; PULSE 96; RESP 24; TEMP 39.2; O2SAT 95; BMI 31.0
--- NOTE | 2024-05-13 15:36 | ECG_ITS ---
Test Reason : WEAKNESS Blood Pressure : */* mmHG Vent. Rate : 93 BPM Atrial Rate : * BPM P-R Int : * ms QRS Dur : 80 ms QT Int : 360 ms P-R-T Axes : * -19 -24 degrees QTcB Int : 447 ms Atrial fibrillation Low voltage QRS Nonspecific ST abnormality Abnormal ECG When compared with ECG of 20-Mar-2024 16:45, Nonspecific T wave abnormality has replaced inverted T waves in Anterior leads Referred By: Generic ED Physician Electronically Signed By: Nilosn Oliver
[2024-05-13 15:53] LABS: MANUAL DIFF FLAG NO
[2024-05-13 15:57] LABS: Basophils Percent Auto 0.4 % (0-2); Eosinophils Absolute Auto 0.1 X10*3/uL (0.0-0.4); Eosinophils Percent Auto 0.7 % (0-4); Hematocrit 44.9 % (42.0-52.0); Hemoglobin 15.1 g/dl (14.0-18.0); Imm Gran Abs Auto 0.03 X10*3/uL (0.00-0.03); Imm Gran Pct Auto 0.4 % (0.0-0.4); Lymphocytes Absolute Auto 0.8 X10*3/uL (1.2-4.9); Lymphocytes Percent Auto 10.7 % (20-40); Mean Corpuscular HGB Conc 33.6 g/dl (31.0-36.0); Mean Corpuscular Hemoglobin 30.8 pg (27.0-33.0); Mean Corpuscular Volume 91.6 fL (80.0-98.0); Monocytes Absolute Auto 0.6 X10*3/uL (0.1-1.2); Neutrophils Percent Auto 79.8 % (45-73); Red Cell Distribution Width 14.1 % (11.0-16.0); White Blood Count 7.5 X10*3/uL (4.8-10.8)
--- NOTE | 2024-05-13 15:58 | PC.NURSE ---
verbal order from provider for IV tylenol
--- NOTE | 2024-05-13 16:09 | PC.NURSE ---
coming from [facility] for fever, weakness and increased AMS. upon arrival, patient answering most questions appropriately, able to follow commands properly. rectal temp obtained showing fever at 102.5. IV established, labs obtained and sent. medicated w/ IV tylenol per verbal order.
[2024-05-13 16:11] LABS: Lactic Acid 1.5 mmol/L (0.5-2.0)
[2024-05-13 16:16] LABS: Mean Platelet Volume 11.1 fL (9.4-12.4); Platelet Count 110 X10*3/uL (160-400)
[2024-05-13 16:19] LABS: Alanine Aminotransferase 10 U/L (0-40); Albumin Level 3.9 g/dL (3.5-5.0); Anion Gap 14 (12-20); Aspartate Amino Transferase 18 U/L (5-37); Bilirubin Total 0.6 mg/dL (0.0-1.0); Blood Urea Nitrogen 26 mg/dL (9-16); Calcium 9.4 mg/dL (8.4-10.2); Carbon Dioxide 29 mmol/L (22-29); Chloride 107 mmol/L (96-108); Creatinine Clr Calc Pharmacy 93.4; Estimated Glomerular Filt Rate > 60; Glucose Random 109 mg/dL (60-115); Potassium 4.3 mmol/L (3.3-5.1); Sodium 146 mmol/L (135-145); Total Protein 7.2 g/dL (6.5-8.0)
[2024-05-13 16:22] LABS: Alkaline Phosphatase 44 U/L (39-117)
--- NOTE | 2024-05-13 16:22 | ED_ITS ---
HPI - Fever General Chief Complaint: Fever Stated Complaint: FEVER,DIZZY, FROM SNF PER EMS Time Seen by Provider: 05/13/24 16:20 Source: patient, EMS, RN notes reviewed and old records reviewed Mode of arrival: EMS Limitations: no limitations History of Present Illness ED Provider: Susan Carter PA-C HPI Narrative: 59 yo male with history of prior neuroleptic malignant syndrome, intellectual delay,a fib on eliquis, HTN, OCD, seizure disorder mood disorder, neurogenic bladder, chronic constipation, recurrent aspiration w/ hx aspiration pneumonia, who presents to the ER from [facility] for evaluation of fever and lethargy that started today. Per documentation patient was found to have increased weakness and had a temporal temp of 104 which was 100.8 orally. He was sent to the ER for evaluation. On arrival patient reports feeling unwell but cannot elaborate. He states his fingers feel stiff. He denies SOB, cough, chest pain, abdominal pain, N/V/D, dysuria. He is incontinent of stool and urine at baseline. MD elicited complaint: fever and weakness Onset (ago): hour(s) Context: recent hospitalization (03/20-03/23) Exacerbating factors: nothing Relieving factors: nothing Treatments prior to arrival fever: none Related Data Home Medications ?Medication ?Instructions ?Recorded ?Confirmed diazepam 2 mg tablet 2 mg PO TID 11/17/19 03/20/24 melatonin 1 mg tablet 1 mg PO BEDTIME 11/17/19 03/20/24 acetaminophen 500 mg tablet 500 mg PO Q6H PRN FEVER/MILD PAIN 02/13/20 03/20/24 cholecalciferol (vitamin D3) 25 50 mcg PO DAILY 02/13/20 03/20/24 mcg (1,000 unit) tablet pregabalin 100 mg capsule 100 mg PO TID 02/13/20 03/20/24 polyethylene glycol 3350 17 17 g PO BID 03/09/22 03/20/24 gram/dose oral powder (Miralax) divalproex 500 mg tablet,extended 500 mg PO BID 04/20/22 03/20/24 release 24 hr (Depakote ER) aluminum-mag hydroxide-simethicone 30 ml PO Q4H PRN HEARTBURN OR 05/11/22 03/20/24 200 mg-200 mg-20 mg/5 mL oral susp NAUSEA dextromethorphan-guaifenesin 10 10 ml PO Q4H PRN Cough/congestion 05/11/22 03/20/24 mg-100 mg/5 mL oral syrup (Tussin DM) psyllium 1 packet PO BID 05/11/22 03/20/24 guaifenesin 600 mg tablet, 600 mg PO BID 03/09/23 03/20/24 extended release 12 hr divalproex 250 mg tablet,extended 250 mg PO BID 02/23/24 03/20/24 release 24 hr (Depakote ER) metoprolol succinate 25 mg 25 mg PO BID 02/23/24 03/20/24 tablet,extended release 24 hr midodrine 5 mg tablet 5 mg PO TID@0900,1400,1800 02/23/24 03/20/24 nystatin 100,000 unit/gram topical 1 appl topical BID 02/23/24 03/20/24 powder sennosides 8.6 mg-docusate sodium 1 tab-cap PO DAILY Constipation 02/23/24 03/20/24 50 mg tablet ondansetron 4 mg disintegrating 4 mg PO Q6H PRN NAUSEA, VOMITING 03/20/24 03/20/24 tablet Previous Rx's ?Medication ?Instructions ?Recorded abdominal binder #1 ea 03/21/22 apixaban 5 mg tablet (Eliquis) 5 mg PO BID #0 tabs 03/23/24 cefuroxime axetil 500 mg tablet 500 mg PO BID #10 tabs 03/23/24 Allergies Allergy/AdvReac Type Severity Reaction Status Date / Time aripiprazole [From ABILIFY] Allergy Severe Involuntary Verified 05/13/24 15:35 Spasms droperidol [From INAPSINE] Allergy Severe Involuntary Verified 05/13/24 15:35 Spasms haloperidol [From HALDOL] Allergy Severe Involuntary Verified 05/13/24 15:35 Spasms prochlorperazine Allergy Severe Involuntary Verified 05/13/24 15:35 [From COMPAZINE] Spasms promethazine [From PHENERGAN] Allergy Severe Involuntary Verified 05/13/24 15:35 Spasms sulfamethoxazole Allergy Severe Anaphylaxis Verified 05/13/24 15:35 [From BACTRIM] trimethoprim [From BACTRIM] Allergy Severe Anaphylaxis Verified 05/13/24 15:35 Review of Systems 2 Review of Systems: Yes all other systems are reviewed and are negative [facility] Past Medical History Medical History Neurogenic bladder Constipation Resides in longterm facility History of GI bleed Seizure disorder Urinary incontinence Osteoarthritis Rectal prolapse Cognitive impairment Hx of deep venous thrombosis Thrombocytopenia Bilateral cataracts Personal history of COVID-19 Diverticular disease Flexion contractures OCD (obsessive compulsive disorder) History of hemodialysis Depression Neuroleptic malignant syndrome Epilepsy Deformity of left hand Generalized anxiety disorder Major depressive disorder Mild cognitive impairment Hypertension Surgical History History of incisional hernia repair (03/15/22) History of repair of rectocele Hx of appendectomy Hx of colonoscopy Family History Family History Sister Breast CA, Onset Age: 51 Ovarian ca, Onset Age: 55 Father Prostate CA, Onset Age: 70 Mother Colorectal cancer, Onset Age: 39 Kidney carcinoma, Onset Age: 67 Maternal Grandmother Colorectal cancer, Onset Age: 70 Maternal Aunt Colorectal cancer Social History Social History Household Members: None Household Members Other:: [facility] Housing: Assisted Living Facility Housing Other:: patient coming from [facility] Are you a primary career development consultant to a significant other at home: No Do you presently have visiting nurse or other home services: Yes Unable to assess alcohol history related to: Unable to respond Alcohol intake: never [place] [facility] [place] Tobacco Use Status: Never used Tobacco e-Cigarette/Vaping Use: Never Used Second Hand Smoke Exposure: No Advance Directives: Yes Advance Directives on File: Yes Advance Directives Date on File: 11/21/19 Do you have a plan to hurt others: No Plan service: No Current occupational status: disabled Physical Exam 2 Vital Signs: Vital Signs: Last Vital Signs Temp 100.5 F H 05/13/24 17:47 Pulse 87 05/13/24 17:47 Resp 18 05/13/24 17:47 BP 117/72 05/13/24 17:47 Pulse Ox 94 05/13/24 17:47 O2 Del Method Room Air 05/13/24 17:47 BMI result Body Mass Index 31.0 Appearance: Alert. Oriented X3. No acute distress. Head: normocephalic, atraumatic. Eyes: Pupils equal, round and reactive to light. ENT: Pharynx normal. No tonsillar swelling or exudate. Dry mucus membranes Neck: Normal inspection. Neck supple. CVS: Normal heart rate and rhythm. Pulses normal. Respiratory: No respiratory distress. Breath sounds normal. Abdomen: Soft and nontender. +BS x4 Skin: Skin warm and dry. Normal skin color. Normal skin turgor. No rashes. Extremities: No lower extremity edema. No joint swelling. Neuro/psych: Oriented X 3. Slow to respond at times. left hand resting tremor. moves all extremities, generalized weakness. Medications Administered Discontinued Medications Generic Name Dose Route Start Last Admin Trade Name Freq PRN Reason Stop Dose Admin Acetaminophen 1,000 mg in 100 mls @ 400 mls/hr 05/13/24 16:20 05/13/24 16:28 Ofirmev IV 05/13/24 16:34 400 mls/hr ONCE ONE Administration Lactated Ringer's 1,000 mls @ 999 mls/hr 05/13/24 16:30 05/13/24 16:29 Lr IV 05/13/24 17:30 999 mls/hr .Q1H1M MAIA Administration Medical Decision Making Medical Decision Making MDM Narrative: 59 yo male with history of prior neuroleptic malignant syndrome, intellectual delay,a fib on eliquis, HTN, OCD, seizure disorder mood disorder, neurogenic bladder, chronic constipation, recurrent aspiration w/ hx aspiration pneumonia presenting to the ER for evaluation of fever. Patient awake, alert, and answering questions appropriately. He has a fever of 102.5 on arrival. RR low 20s , no respiratory distress and lungs are clear to auscultation. mild cough. rest of his exam is benign he was given 1g IV tylenol and 1L IVF. labs reassuring with no leukocytosis, platelets 110, he has chronic thrombocytopenia. sodium is 146 which appears chronic as well. His SCr is up slightly 1.00 from baseline 0.6-0.7. lactic acid is normal 1.5. no evidence of end organ damage. UA is negative for infection. CXR without PNA. Viral swab negative No abdominal symptoms. No skin issues. temp improved to 100.5. will give another liter of IVF and low dose toradol. Case d/w Dr. Dan - comfortable with discharge back to [facility]. no role for abx as no source of bacterial infection has been identified. Differential Diagnosis Differential Diagnoses: The differential diagnosis associated with the presentation includes UTI, viral illness, aspiration pneumonia, HCAP, Admission/Observation Consideration of admission/observation: Escalation of care including admission/observation considered Consult Healthcare Provider Management of the patient was discussed with: Gun Stock Checker Dr. Dan Lab Data MDM Lab Attestation statement: I reviewed the patient's lab results. 05/13/24 15:44 05/13/24 15:44 Labs: Lab Results 05/13/24 05/13/24 05/13/24 Range/Units 15:44 16:04 17:13 WBC 7.5 (4.8-10.8) X10*3/uL RBC 4.90 (4.60-5.80) X10*6/uL Hgb 15.1 (14.0-18.0) g/dl Hct 44.9 (42.0-52.0) % MCV 91.6 (80.0-98.0) fL MCH 30.8 (27.0-33.0) pg MCHC 33.6 (31.0-36.0) g/dl RDW 14.1 (11.0-16.0) % Plt Count 110 L D (160-400) X10*3/uL MPV 11.1 (9.4-12.4) fL Immature Gran % (Auto) 0.4 (0.0-0.4) % Neut % (Auto) 79.8 H (45-73) % Lymph % (Auto) 10.7 L (20-40) % [place] % (Auto) 8.0 (2-11) % Eos % (Auto) 0.7 (0-4) % Baso % (Auto) 0.4 (0-2) % Lymph # (Auto) 0.8 L (1.2-4.9) X10*3/uL [place] # (Auto) 0.6 (0.1-1.2) X10*3/uL Eos # (Auto) 0.1 (0.0-0.4) X10*3/uL Baso # (Auto) 0.0 (0.0-0.2) X10*3/uL Abs Immat Gran (auto) 0.03 (0.00-0.03) X10*3/uL Absolute Neuts (auto) 6.0 (2.0-8.3) x10*3/uL Absolute Nucleated RBC 0.000 (0.0-0.012) X10*3/uL Nucleated RBC % (auto) 0.0 (0.0-0.2) /100WBC Hold Purple Top SEE NOTE Hold Blue Top SEE NOTE Sodium 146 H (135-145) mmol/L Potassium 4.3 (3.3-5.1) mmol/L Chloride 107 (96-108) mmol/L Carbon Dioxide 29 (22-29) mmol/L Anion Gap 14 (12-20) BUN 26 H (9-16) mg/dL Creatinine 1.00 (0.5-1.4) mg/dL Estim Creat Clear Calc 93.4 Estimated GFR > 60 Random Glucose 109 (60-115) mg/dL Lactic Acid 1.5 (0.5-2.0) mmol/L Calcium 9.4 D (8.4-10.2) mg/dL Total Bilirubin 0.6 (0.0-1.0) mg/dL AST 18 (5-37) U/L ALT 10 (0-40) U/L Alkaline Phosphatase 44 (39-117) U/L Total Protein 7.2 (6.5-8.0) g/dL Albumin 3.9 (3.5-5.0) g/dL Urine Color Dark Yellow Urine Appearance Clear Urine pH 8.0 (5.0-9.0) Ur Specific [place] >= 1.030 H (1.005-1.025) Urine Protein Trace (Neg-Trace) mg/dL Urine Glucose (UA) Negative (Negative) mg/dL Urine Ketones 15 (Negative) mg/dL Urine Blood Negative (Negative) Urine Nitrite Negative (Negative) Ur Leukocyte Esterase Negative (Negative) Influenza Type A (PCR) NEGATIVE (Negative) Influenza Type B (PCR) NEGATIVE (Negative) RSV RNA Qual (PCR) NEGATIVE (Negative) SARS-CoV-2 RNA (RT-PCR) NEGATIVE (Negative) Independent Interpretation I performed an independent interpretation of an: Plain X-Ray Interpretation: CXR without no focal consolidation or effusion Radiology Impression Discussion of test interpretation with radiology: I have reviewed the radiologist's reading. Independent Historian Clinical information obtained from an independent historian. History obtained from or confirmed by: EMS External Record Review External record reviewed: Inpatient record, Outpatient record, Prior outpatient labs and Prior outpatient radiology Tests considered The following testing was considered but not selected: CT chest,abd,pelvis considered for evaluation of fever of unknown origin Prescription Management I considered prescription management with: Pain Medication and Antibiotic Chronic Conditions Patient?s care impacted by: Hypertension and Other (hx NMS, seizures, afib on eliquis) Critical Care Time Critical Care Time Critical Care Time: No Discharge Plan Discharge Clinical Impression: Fever Qualifiers: Fever type: unspecified Qualified Code(s): R50.9 - Fever, unspecified Patient Disposition: Xfer LTC Transfer Details: [facility] Instructions: Fever in Adults (ED) Additional Instructions: Your lab workup today was unremarkable You tested negative for COVID, Flu and RSV Your chest x-ray was normal Your urine test was normal Recommend continuing to monitor his fever curve over the next 48-72 hours Give Motrin and Tylenol as needed for fevers Rest and drink plenty of fluids If you develop new or worsening symptoms call 911 or come back to the ER for further evaluation. Prescriptions: No Action (DME) abdominal binder 2xl See Rx Instructions .Route .MEDSUPPLY Qty: 1 0RF Rx Instructions: Pt to wear binder during daytime hours - may remove for shower diazepam 2 mg Tablet 2 mg PO TID melatonin 1 mg Tablet 1 mg PO BEDTIME acetaminophen 500 mg Tablet 500 mg PO Q6H MDD 3g PRN (Reason: FEVER/MILD PAIN) pregabalin 100 mg Capsule 100 mg PO TID cholecalciferol (vitamin D3) 25 mcg (1,000 unit) Tablet 50 mcg PO DAILY polyethylene glycol 3350 [Miralax] 17 gram/dose powder 17 g PO BID Rx Instructions: dilute in 6-8 ounces of fluid sennosides-docusate sodium 8.6-50 mg Tablet 1 tab-cap PO DAILY midodrine 5 mg Tablet 5 mg PO TID@0900,1400,1800 Rx Instructions: do not give last dose of day after 6PM or within 4 hrs of bedtime metoprolol succinate 25 mg Tablet Extended Release 24 Hr 25 mg PO BID Protocol: Hold for SBP/HR < HOLD for SBP < : 100 HOLD for HR < : 60 nystatin 100,000 unit/gram Powder 1 appl TOPICAL BID Rx Instructions: to groin and groin creases divalproex [Depakote ER] 250 mg Tablet Extended Release 24 Hr 250 mg PO BID Rx Instructions: with 500 mg = 750mg bid psyllium Packet 1 packet PO BID dextromethorphan-guaifenesin [Tussin DM] 10-100 mg/5 mL Syrup 10 ml PO Q4H PRN (Reason: Cough/congestion) alum-mag hydroxide-simeth 200-200-20 mg/5 mL Suspension 30 ml PO Q4H PRN (Reason: HEARTBURN OR NAUSEA) Rx Instructions: administer between meals and at bedtime guaifenesin 600 mg Tablet Extended Release 12hr 600 mg PO BID Rx Instructions: take with plenty of water ondansetron 4 mg Tablet,Disintegrating 4 mg PO Q6H PRN (Reason: NAUSEA, VOMITING) Eliquis 5 mg Tablet 5 mg PO BID Qty: 0 0RF cefuroxime axetil 500 mg tablet 500 mg PO BID Qty: 10 0RF divalproex [Depakote ER] 500 mg tablet extended release 24 hr 500 mg PO BID Rx Instructions: with 250 mg = 750mg bid Print Language: Maltese
[2024-05-13] MEDS: Acetaminophen 1,000 MG/100 ML PIGGYBACK 400 MG IV (16:28)
[2024-05-13] MEDS: Lactated Ringers 1,000 ML 999 ML IV ×2 (16:29→18:04)
[2024-05-13 16:31] VITALS: BP 118/79; PULSE 93; RESP 18; O2SAT 94
[2024-05-13 16:47] LABS: Influenza A PCR NEGATIVE (Negative); Influenza B PCR NEGATIVE (Negative); Resp Syncy Virus RNA Qual PCR NEGATIVE (Negative); SARS COV2 PCR INHOUSE NEGATIVE (Negative)
[2024-05-13 17:27] LABS: Appearance Urine Clear; Color Urine Dark Yellow; Glucose Urine UA Negative (Negative); Leukocyte Esterase Urine Negative (Negative); Nitrite Urine Negative (Negative); Specific Gravity - Urine >= 1.030 (1.005-1.025); Urine Blood Negative (Negative); Urine Ketones 15 mg/dL (Negative); Urine Protein Trace mg/dL (Neg-Trace)
[2024-05-13 17:47] VITALS: BP 117/72; PULSE 87; RESP 18; TEMP 38.1; O2SAT 94
[2024-05-13] MEDS: Ketorolac Tromethamine 15 MG/ML VIAL IVPUSH (18:03)
--- OUTSIDE RECORDS SUMMARY | 2024-05-13 18:52 | XMS_ITS | Encounter Summary ---
Author Organization [facility] [employer] Address [address] [place] [address] Care Team Providers Care Railroad Repairer Name Role Phone Augustine Dan MD Primary Care Provider [phone] Encounter Details Date Type Department Care Team (Late st Contact Info) Description 12/12/2023 Lab Requisition [facility] - Main Lab [address] [place] [address] Augustine Dan MD [address] [place] [address] Dr [address] KALANI Camacho Major depressive disorder, recurrent, unspecified (CMS/HCC) Social [...] AM EST) WBC 4.9 4.8 - 10.8 K/[facility] LAB HEMETOLOGY METHOD 12/12/2023 6:58 AM EST [facility] RBC 4.70 4.50 - 5.50 M/mcL LAB HEMETOLOGY METHOD 12/12/2023 6:58 AM [facility] LAB Hemoglobin 14.3 13.5 - 17.5 g/dL LAB HEMETOLOGY METHOD 12/12/2023 6:58 AM [facility] LAB Hematocrit 44.8 42.0 - 54.0 % LAB HEMETOLOGY METHOD 12/12/2023 6:58 AM [facility] LAB MCV 94.5 79.0 - 98.0 FL LAB HEMETOLOGY METHOD 12/12/2023 6:58 AM [facility] LAB MCH 30.2 27.0 - 32.0 pcg LAB HEMETOLOGY METHOD 12/12/2023 6:58 AM [facility] LAB MCHC 31.9(L) 32.0 - 37.0 g/dL LAB HEMETOLOGY METHOD 12/12/2023 6:58 AM [facility] LAB RDW 13.6 11.0 - 15.0 % LAB HEMETOLOGY METHOD 12/12/2023 6:58 AM [facility] LAB Platelets 101(L) 130 - 400 K/mcL LAB HEMETOLOGY METHOD 12/12/2023 6:58 AM [facility] LAB MPV 12.1(H) 7.0 - 11.0 FL LAB HEMETOLOGY METHOD 12/12/2023 6:58 AM [facility] LAB NRBC 0.0 <1.0 % LAB HEMETOLOGY METHOD 12/12/2023 6:58 AM [facility] LAB NRBC Absolute 0.00 <0.10 K/mcL LAB HEMETOLOGY METHOD 12/12/2023 6:58 AM [facility] LAB Neutrophils Relative 43.6 % LAB HEMETOLOGY METHOD 12/12/2023 6:58 AM [facility] LAB Lymphocytes Relative 40.1 % LAB HEMETOLOGY METHOD 12/12/2023 6:58 AM [facility] LAB Monocytes Relative 11.2 % LAB HEMETOLOGY METHOD 12/12/2023 6:58 AM [facility] LAB Eosinophils Relative 4.3 % LAB HEMETOLOGY METHOD 12/12/2023 6:58 AM [facility] LAB Basophils Relative 0.8 % LAB HEMETOLOGY METHOD 12/12/2023 6:58 AM [facility] LAB Immature Granulocytes Relative 0.0 % LAB HEMETOLOGY METHOD 12/12/2023 6:58 AM [facility] LAB Neutrophils Absolute 2.13 1.50 - 7.00 K/mcL LAB HEMETOLOGY METHOD 12/12/2023 6:58 AM [facility] LAB Lymphocytes Absolute 1.96 1.00 - 5.00 K/mcL LAB HEMETOLOGY METHOD 12/12/2023 6:58 AM [facility] LAB Monocytes Absolute 0.55 0.20 - 1.00 K/mcL LAB HEMETOLOGY METHOD 12/12/2023 6:58 AM [facility] LAB Eosinophils Absolute 0.21 0.00 - 0.50 K/mcL LAB HEMETOLOGY METHOD 12/12/2023 6:58 AM [facility] LAB Basophils Absolute 0.04 0.00 - 0.20 K/mcL LAB HEMETOLOGY METHOD 12/12/2023 6:58 AM [facility] LAB Immature Granulocytes Absolute 0.00 0.00 - 0.03 K/mcL LAB HEMETOLOGY METHOD 12/12/2023 6:58 AM [facility] LAB Blood Venous blood specimen / Unknown 12/12/2023 5:05 AM EST 12/12/2023 6:26 AM EST us Augustine Dan MD LAB BLOOD ORDERABLES Final Resul t [facility] LAB [address] [place] [address], [place] [phone] * Valproic acid level, total (12/12/2023 5:05 AM EST) Valproic Acid, Total 78 50 - 100 mcg/mL LAB CHEMISTRY METHOD 12/12/2023 7:01 AM EST [facility] LAB Blood Venous blood specimen / Unknown 12/12/2023 5:05 AM EST 12/12/2023 6:26 AM EST us Augustine Dan MD LAB BLOOD ORDERABLES Final Resul t [facility] [address] [place] [address], [place] [phone] documented in this encounter Visit Diagnoses Diagnosis Major depressive disorder, recurrent, unspecified documented in this encounter Care Teams Railroad Repairer Relationship Specialty Start Date End Date Augustine Dan MD [address] [place] [address] Dr [address] [place], [place] PCP - General Internal Medicine 04/21/24 documented as of this encounter
--- OUTSIDE RECORDS SUMMARY | 2024-05-13 18:52 | XMS_ITS | Encounter Summary ---
Author Organization [employer] Address [address] [place] [address] Care Team Providers Care Operations Research Scientist Name Role Phone Augustine Dan MD Primary Care Provider [phone] Encounter Details Date Type Department Care Team (Late st Contact Info) Description 02/04/2024 Lab Requisition [facility] - Main Lab [address] [facility] [employer] [place] [address] Social History Tobacco Use Types [...] Diagnoses Not on filedocumented in this encounter Care Teams Operations Research Scientist Relationship Specialty Start Date End Date Augustine Dan MD [address] [place] [address] Dr [address] KALANI Camacho PCP - General Internal Medicine 04/21/24 documented as of this encounter
--- OUTSIDE RECORDS SUMMARY | 2024-05-13 18:52 | XMS_ITS | Encounter Summary ---
Author Organization [employer] Address [address] [place] [address] Care Team Providers Care Cold Roll Packer Sheet Iron Name Role Phone Augustine Dan MD Primary Care Provider [phone] Encounter Details Date Type Department Care Team (Late st Contact Info) Description 01/11/2024 Lab Requisition [facility] - Main Lab [address] [facility] [place] [address] Augustine Dan MD [address] [place] [address] [address] KALANI Camacho [facility] drug therapy Social History Tobacco Use [...] COUNT Routine 01/11/2024 5:10 AM EST Other long term care pharmacist (current) drug therapy COMPREHENSIVE METABOLIC PANEL Routine 01/11/2024 5:10 AM EST Other long term care pharmacist (current) drug therapy documented in this encounter Results * (ABNORMAL) Comprehensive metabolic panel (01/11/2024 5:10 AM EST) Sodium 144 133 - 145 mmol/L LAB CHEMISTRY METHOD 01/11/2024 6:57 AM EST [facility] Potassium 3.8 3.5 - 5.5 mmol/L LAB CHEMISTRY METHOD 01/11/2024 6:57 AM EST [facility] Chloride 109 96 - 110 mmol/L LAB CHEMISTRY METHOD 01/11/2024 6:57 AM EST [facility] CO2 30 21 - 32 mmol/L LAB CHEMISTRY METHOD 01/11/2024 6:57 AM [facility] LAB Anion Gap 5 3 - 11 LAB CHEMISTRY METHOD 01/11/2024 6:57 AM [facility] LAB Glucose 87 70 - 100 mg/dL LAB CHEMISTRY METHOD 01/11/2024 6:57 AM [facility] LAB BUN 20 5 - 25 mg/dL LAB CHEMISTRY METHOD 01/11/2024 6:57 AM [facility] LAB Creatinine 0.82 0.70 - 1.30 mg/dL LAB CHEMISTRY METHOD 01/11/2024 6:57 AM [facility] LAB eGFR 102 >=60 mL/min/1. 73m2 LAB CHEMISTRY METHOD 01/11/2024 6:57 AM [facility] LAB Comment:Calculation based on the??Chronic Kidney Disease Epidemiology Collaboration (CKD-EPI) equation refit??without adjustment for race. BUN/Creatinine Ratio 24.4 LAB CHEMISTRY METHOD 01/11/2024 6:57 AM [facility] LAB Calcium 9.0 8.5 - 10.5 mg/dL LAB CHEMISTRY METHOD 01/11/2024 6:57 AM [facility] LAB AST (SGOT) 47(H) 10 - 42 unit/L LAB CHEMISTRY METHOD 01/11/2024 6:57 AM [facility] LAB ALT (SGPT) 19 10 - 60 unit/L LAB CHEMISTRY METHOD 01/11/2024 6:57 AM [facility] LAB Alkaline Phosphatase 46 42 - 121 unit/L LAB CHEMISTRY METHOD 01/11/2024 6:57 AM [facility] LAB Total Protein 6.3 6.0 - 8.0 g/dL LAB CHEMISTRY METHOD 01/11/2024 6:57 AM [facility] LAB Albumin 3.3 3.2 - 5.0 g/dL LAB CHEMISTRY METHOD 01/11/2024 6:57 AM [facility] LAB Total Bilirubin 0.5 0.0 - 1.4 mg/dL LAB CHEMISTRY METHOD 01/11/2024 6:57 AM [facility] LAB Blood Venous blood specimen / Unknown 01/11/2024 5:10 AM EST 01/11/2024 6:11 AM EST us Augustine Dan MD LAB BLOOD ORDERABLES Final Resul t [facility] [address] [place] [address], * (ABNORMAL) Complete blood count (01/11/2024 5:10 AM EST) WBC 6.9 4.8 - 10.8 K/mcL LAB HEMETOLOGY METHOD 01/11/2024 6:52 AM [facility] LAB RBC 4.70 4.50 - 5.50 M/mcL LAB HEMETOLOGY METHOD 01/11/2024 6:52 AM [facility] LAB Hemoglobin 14.3 13.5 - 17.5 g/dL LAB HEMETOLOGY METHOD 01/11/2024 6:52 AM [facility] LAB Hematocrit 43.5 42.0 - 54.0 % LAB HEMETOLOGY METHOD 01/11/2024 6:52 AM [facility] LAB MCV 92.8 79.0 - 98.0 FL LAB HEMETOLOGY METHOD 01/11/2024 6:52 AM [facility] LAB MCH 30.5 27.0 - 32.0 pcg LAB HEMETOLOGY METHOD 01/11/2024 6:52 AM [facility] LAB MCHC 32.9 32.0 - 37.0 g/dL LAB HEMETOLOGY METHOD 01/11/2024 6:52 AM [facility] LAB RDW 13.8 11.0 - 15.0 % LAB HEMETOLOGY METHOD 01/11/2024 6:52 AM [facility] LAB Platelets 83(L) 130 - 400 K/mcL LAB HEMETOLOGY METHOD 01/11/2024 6:52 AM EST [facility] LAB Comment:reviewed by slide MPV 12.0(H) 7.0 - 11.0 FL LAB HEMETOLOGY METHOD 01/11/2024 6:52 AM EST [facility] LAB NRBC 0.0 <1.0 % LAB HEMETOLOGY METHOD 01/11/2024 6:52 AM EST [facility] LAB NRBC Absolute 0.00 <0.10 K/mcL LAB HEMETOLOGY METHOD 01/11/2024 6:52 AM EST [facility] Blood Venous blood specimen / Unknown 01/11/2024 5:10 AM EST 01/11/2024 6:11 AM EST us Augustine Dan MD LAB BLOOD ORDERABLES Final Resul t [facility] [address] [place] [address], [place] [phone] documented in this encounter Visit Diagnoses Diagnosis Other long term care pharmacist (current) drug therapy documented in this encounter Care Teams Cold Roll Packer Sheet Iron Relationship Specialty Start Date End Date Augustine Dan MD [address] [place] [address] [address] KALANI Camacho PCP - General Internal Medicine 04/21/24 documented as of this encounter
--- OUTSIDE RECORDS SUMMARY | 2024-05-13 18:52 | XMS_ITS | Encounter Summary ---
Author Organization [facility] Address [address] [place] [address] Care Team Providers Care Automotive Production Worker Name Role Phone Augustine Dan MD Primary Care Provider Encounter Details Date Type Department Care Team (Late st Contact Info) Description 01/25/2024 Lab Requisition [facility] - Main Lab [address] [place] [address] Augustine Dan MD [address] [place] [address] [address] KALANI Camacho Other nursing home (current) drug therapy Social History Tobacco Use [...] AMMONIA Routine 01/25/2024 6:10 AM EST Other termination clerk (current) drug therapy VALPROIC ACID LEVEL, TOTAL Routine 01/25/2024 6:10 AM EST Other nursing home (current) drug therapy documented in this encounter Results * Valproic acid level, total (01/25/2024 6:10 AM EST) Valproic Acid, Total 82 50 - 100 mcg/mL LAB CHEMISTRY METHOD 01/25/2024 7:35 AM EST [facility] [place] [facility] Blood Venous blood specimen / Unknown 01/25/2024 6:10 AM EST 01/25/2024 6:49 AM EST us Augustine Dan MD LAB BLOOD ORDERABLES Final Resul t [facility] [address] [place] [address], [place] [phone] * Ammonia (01/25/2024 6:10 AM EST) Ammonia 22 11 - 35 mcmol/L LAB CHEMISTRY METHOD 01/25/2024 7:28 AM EST [facility] Blood Venous blood specimen / Unknown 01/25/2024 6:10 AM EST 01/25/2024 6:49 AM EST us Augustine Dan MD LAB BLOOD ORDERABLES Final Resul t [facility] [address] [place] [address], [place] [phone] documented in this encounter Visit Diagnoses Diagnosis Other termination clerk (current) drug therapy documented in this encounter Care Teams Automotive Production Worker Relationship Specialty Start Date End Date Augustine Dan MD [address] [place] [address] Dr [address] [place] PCP - General Internal Medicine 04/21/24 documented as of this encounter
--- OUTSIDE RECORDS SUMMARY | 2024-05-13 18:52 | XMS_ITS | Encounter Summary ---
Author Organization [employer] Address [address] [place] [address] Care Team Providers Care Family Court Justice Name Role Phone Augustine Dan MD Primary Care Provider Encounter Details Date Type Department Care Team (Late st Contact Info) Description 02/08/2024 Lab Requisition [facility] - Main Lab [address] [place] [address] Augustine Dan MD [address] [place] [address] [address] KALANI Camacho Other assisted (current) drug therapy Social History Tobacco Use [...] TOTAL Routine 02/08/2024 5:05 AM EST Other assisted (current) drug therapy documented in this encounter Results * Valproic acid level, total (02/08/2024 5:05 AM EST) Valproic Acid, Total 80 50 - 100 mcg/mL LAB CHEMISTRY METHOD 02/08/2024 6:22 AM EST [facility] Blood Venous blood specimen / Unknown 02/08/2024 5:05 AM EST 02/08/2024 5:55 AM EST us Augustine Dan MD LAB BLOOD ORDERABLES Final Resul t [facility] [address] [place] [address], documented in this encounter Visit Diagnoses Diagnosis Other assisted (current) drug therapy documented in this encounter Care Teams Family Court Justice Relationship Specialty Start Date End Date Augustine Dan MD [address] [place] [address] Dr [address] KALANI Camacho PCP - General Internal Medicine 04/21/24 documented as of this encounter
--- OUTSIDE RECORDS SUMMARY | 2024-05-13 18:52 | XMS_ITS | Encounter Summary ---
Author Organization [employer] Address [address] [place] [address] Care Team Providers Care Phone Triage Specialist Name Role Phone Augustine Dan MD Primary Care Provider [phone] Encounter Details Date Type Department Care Team (Late st Contact Info) Description 01/20/2024 Lab Requisition [facility] - Main Lab [address] [place] [address] Augustine Dan MD [address] [place] [address] [address] KALANI Camacho Urinary tract infection, site not specified Social [...] reflex microscopic (01/20/2024 6:00 PM EST) Specific [place] Urine 1.029 1.003 - 1.030 LAB URINALYSIS - AUTOMATED METHOD 01/20/2024 8:20 PM EST [facility] pH, Urine 5.5 5.0 - 8.0 pH LAB URINALYSIS - AUTOMATED METHOD 01/20/2024 8:20 PM [facility] Leukocytes, Urine Negative Negative LAB URINALYSIS - AUTOMATED METHOD 01/20/2024 8:20 PM [facility] Nitrite, Urine Negative Negative LAB URINALYSIS - AUTOMATED METHOD 01/20/2024 8:20 PM [facility] Protein, Urine Negative <=Trace mg/dL LAB URINALYSIS - AUTOMATED METHOD 01/20/2024 8:20 PM [facility] Glucose, Urine Negative Negative mg/dL LAB URINALYSIS - AUTOMATED METHOD 01/20/2024 8:20 PM [facility] Ketones, Urine 15(A) Negative mg/dL LAB URINALYSIS - AUTOMATED METHOD 01/20/2024 8:20 PM [facility] Urobilinogen, Urine 0.2 0.2 - 1.0 mg/dL LAB URINALYSIS - AUTOMATED METHOD 01/20/2024 8:20 PM [facility] Bilirubin, Urine Negative Negative LAB URINALYSIS - AUTOMATED METHOD 01/20/2024 8:20 PM [facility] Blood, Urine Negative Negative LAB URINALYSIS - AUTOMATED METHOD 01/20/2024 8:20 PM [facility] Urine Urine specimen obtained by clean catch procedure / Unknown 01/20/2024 6:00 PM EST 01/20/2024 8:17 PM EST us Augustine Dan MD LAB URINE ORDERABLES Final Resul t [facility] [address] [place] [address], * Culture urine (01/20/2024 6:00 PM EST) Culture, Urine No growth 01/21/2024 1:22 PM EST [facility] Urine Urine specimen obtained by clean catch procedure / Unknown 01/20/2024 6:00 PM EST 01/20/2024 8:17 PM EST us Augustine Dan MD LAB MICROBIOLOGY - GENERAL ORDER KETTY Final Result [facility] [address] [place] [address], documented in this encounter Visit Diagnoses Diagnosis Urinary tract infection, site not specified documented in this encounter Care Teams Phone Triage Specialist Relationship Specialty Start Date End Date Augustine Dan MD [address] [place] [address] Dr [address] [place], [place] PCP - General Internal Medicine 04/21/24 documented as of this encounter
--- OUTSIDE RECORDS SUMMARY | 2024-05-13 18:52 | XMS_ITS | Encounter Summary ---
Author Organization [facility] Address [address] [place] [address] Care Team Providers Care Regional Medical Director Name Role Phone Augustine Dan MD Primary Care Provider [phone] Encounter Details Date Type Department Care Team (Late st Contact Info) Description 01/14/2024 Lab Requisition [facility] - Main Lab [address] [place] [address] Augustine Dan MD [address] [place] [address] [address] [place] Malignant neuroleptic syndrome Social History Tobacco Use [...] LAB HEMETOLOGY METHOD 01/14/2024 7:[address] [facility] MPV 11.4(H) 7.0 - 11.0 FL LAB HEMETOLOGY METHOD 01/14/2024 7:[address] [facility] Blood Venous blood specimen / Unknown 01/14/2024 01/14/2024 6:53 PM EST us Augustine Dan MD LAB BLOOD ORDERABLES Final Resul t [facility] [address] [place] [address], documented in this encounter Visit Diagnoses Diagnosis Malignant neuroleptic syndrome Neuroleptic malignant syndrome documented in this encounter Care Teams Regional Medical Director Relationship Specialty Start Date End Date Augustine Dan MD [address] [place] [address] Dr [address] [place] PCP - General Internal Medicine 04/21/24 documented as of this encounter
--- OUTSIDE RECORDS SUMMARY | 2024-05-13 18:52 | XMS_ITS | Patient Health Record ---
Author Organization [facility] Address [address] [place] [address] Care Team Providers Care Loader Machine Name Role Phone Augustine Dan Primary Care Provider Pascual Banegas Jr Unavailable Allergies Allergen (clinical drug ingredient) Drug/Non Drug Allergy documented on EMR Reaction Allergy Type Onset Date Status promethazine Phenergan Unknown Drug Allergy Acti ve Inapsine Unknown Drug Allergy Active Haldol Unknown Drug Allergy Active sulfamethoxazole / trimethoprim Bactrim Unknown Drug Allergy Active aripiprazole Abilify Unknown Drug Allergy Acti ve Compazine Unknown Drug Allergy Active Reason For Referral No Information Medications Medication SIG (Take, Route, Frequency, Duration) Notes Start Date End Date Status Depakote ER 500 MG 1 tablet Orally Once a day for 30 day(s) Active carBAMazepine ER 400 MG 1 tablet Orally Twice a day for 30 day(s) Active Fleet Enema 7-19 GM/118ML as directed Rectal Active Melatonin Childrens 1 MG 1 tablet at bed time as needed Orally Once a day for 30 day(s) Active diazePAM 2 MG 1 tablet as needed Orally Once a day Active Lyrica 300 MG 1 capsule in the rashi paolo 1 to 3 hours before bedtime Orally twice a day Active Lactulose 10 GM 1 packet as needed Orally three times a day Active Polyethylene Glycol 3350 - as directed Active Ibuprofen 200 MG 1 tablet with food o r milk as needed Orally Three times a day Active Metoprolol Succinate ER 50 MG 1 tablet Orally Once a day for 30 day(s) Active Pregabalin 100 MG 1 capsule Orally Onc e a day Active Metamucil Active Vitamin D3 25 MCG (1000 UT) 1 capsule Or ally Once a day for 30 day(s) Active Senna-Docusate Sodium 8.6-50 MG 1 tablet in the evening as needed Orally Once a day for 30 day(s) Active Biscolax Active Acetaminophen 500 MG 1 capsule as needed Orally every 6 hrs Active Immunizations Vaccine Route Administration Date Status Comme nts Influenza Unknown 12/06/2020 Administered Influenza Unknown 11/05/2021 Administered Social History Tobacco Use: Social History Observation Description Date Details (start date - stop date) Never Smoker NA - NA Tobacco Use/Smoking Question Answer Notes Patient is a nonsmoker Alcohol Screen Question Answer Notes Did you have a drink containing alcohol in the p ast year? No Points 0 Interpretation Negative Problems Problem Type SNOMED Code ICD Code Onset Dates Problem Status W/U Status Risk Notes Problem 650469931 Colon cancer screening (Z12.11) Active confirmed Problem 194629511 watermelon inspector (current) use of non-steroidal anti-inflammatorie s (NSAID) (Z79.1) Active confirmed Problem 703104216 Encounter for other preprocedural examination (Z01.818) Active confirmed Problem 37454474 Constipation, unspecified constipation type (K59.00) Active confirmed Problem 450666910 FH: colon cancer (Z80.0) Active confirmed Plan Of Treatment Pending Test Test Name Order Date TSH REFLEX FREE T4 11/23/2021 Insurance Providers Payer Name Payer Address Payer Phone Subscriber Number Group Number Insured Name Patient Relationship to Insured Coverage Start Date Coverage End Date [employer] [address] [place] [id number] [phone] [id number] QUINCY NGUYEN Self - patient is the insured Medical (General) History Medical History History ICD Code Anxiety/depression hypertension neuroleptic malignant syndro me, complicated by respiratory and renal failure requiring hemodialysis temporarily, and prolonged ICU stay. obessive compulsive disorder Extremity contractures Diverticular disease Covid 19 infection Cataracts thrombocytopenia, platelet count 112 9/2 08/25 hx of other venous thrombosis and emboli sm Cognitive impairment related to NMS constipation rectal prolapse osteoarthritis Osteoporosis urinary incontinence Seizure disorder Surgical History Surgery Date(Month/Year) appendectomy rectocele repair muscle release on bilateral legs and fee t with botox
--- OUTSIDE RECORDS SUMMARY | 2024-05-13 18:52 | XMS_ITS | Encounter Summary ---
Author Organization [employer] Address [address] [place] [address] Care Team Providers Care Stamp Press Operator Name Role Phone Augustine Dan MD Primary Care Provider Encounter Details Date Type Department Care Team (Late st Contact Info) Description 02/20/2024 Lab Requisition [facility] - Main Lab [address] [facility] [place] [address] Augustine Dan MD [address] [place] [address] [address] KALANI Camacho Major depressive disorder, [...] CBC auto differential (02/20/2024 6:28 AM EST) [facility] WBC 4.2(L) 4.8 - 10.8 K/mcL LAB HEMETOLOGY METHOD 02/20/2024 8:35 AM [facility] RBC 4.60 4.50 - 5.50 M/mcL LAB HEMETOLOGY METHOD 02/20/2024 8:35 AM [facility] Hemoglobin 13.9 13.5 - 17.5 g/dL LAB HEMETOLOGY METHOD 02/20/2024 8:35 AM [facility] Hematocrit 43.5 42.0 - 54.0 % LAB HEMETOLOGY METHOD 02/20/2024 8:35 AM [facility] MCV 94.8 79.0 - 98.0 FL LAB HEMETOLOGY METHOD 02/20/2024 8:35 AM [facility] MCH 30.3 27.0 - 32.0 pcg LAB HEMETOLOGY METHOD 02/20/2024 8:35 AM [facility] MCHC 32.0 32.0 - 37.0 g/dL LAB HEMETOLOGY METHOD 02/20/2024 8:35 AM [facility] RDW 13.7 11.0 - 15.0 % LAB HEMETOLOGY METHOD 02/20/2024 8:35 AM [facility] Platelets 76(L) 130 - 400 K/mcL LAB HEMETOLOGY METHOD 02/20/2024 8:35 AM [facility] Comment:reviewed by slide MPV 12.0(H) 7.0 - 11.0 FL LAB HEMETOLOGY METHOD 02/20/2024 8:35 AM [facility] NRBC 0.0 <1.0 % LAB HEMETOLOGY METHOD 02/20/2024 8:35 AM [facility] NRBC Absolute 0.00 <0.10 K/[facility] LAB HEMETOLOGY METHOD 02/20/2024 8:35 AM [facility] Neutrophils Relative 42.7 % LAB HEMETOLOGY METHOD 02/20/2024 8:35 AM [facility] Lymphocytes Relative 38.4 % LAB HEMETOLOGY METHOD 02/20/2024 8:35 AM [facility] Monocytes Relative 12.1 % LAB HEMETOLOGY METHOD 02/20/2024 8:35 AM [facility] Eosinophils Relative 5.9 % LAB HEMETOLOGY METHOD 02/20/2024 8:35 AM [facility] Basophils Relative 0.7 % LAB HEMETOLOGY METHOD 02/20/2024 8:35 AM [facility] Immature Granulocytes Relative 0.2 % LAB HEMETOLOGY METHOD 02/20/2024 8:35 AM [facility] Neutrophils Absolute 1.80 1.50 - 7.00 K/mcL LAB HEMETOLOGY METHOD 02/20/2024 8:35 AM [facility] Lymphocytes Absolute 1.62 1.00 - 5.00 K/mcL LAB HEMETOLOGY METHOD 02/20/2024 8:35 AM [facility] Monocytes Absolute 0.51 0.20 - 1.00 K/mcL LAB HEMETOLOGY METHOD 02/20/2024 8:35 AM [facility] Eosinophils Absolute 0.25 0.00 - 0.50 K/mcL LAB HEMETOLOGY METHOD 02/20/2024 8:35 AM [facility] Basophils Absolute 0.03 0.00 - 0.20 K/mcL LAB HEMETOLOGY METHOD 02/20/2024 8:35 AM [facility] Immature Granulocytes Absolute 0.01 0.00 - 0.03 K/mcL LAB HEMETOLOGY METHOD 02/20/2024 8:35 AM [facility] Blood Venous blood specimen / Unknown 02/20/2024 6:28 AM EST 02/20/2024 7:34 AM EST us Augustine Dan MD LAB BLOOD ORDERABLES Final Resul t Performing Organization Address [facility]/ZIP Co de Phone Number [facility] [address] [place] [address], [place] [phone] * Thyroid stimulating hormone (02/20/2024 6:28 AM EST) Pathologist [facility] TSH 3.34 0.40 - 4.00 mcIU/mL LAB CHEMISTRY METHOD 02/20/2024 8:25 AM EST [facility] Blood Venous blood specimen / Unknown 02/20/2024 6:28 AM EST 02/20/2024 7:34 AM EST us Augustine Dan MD LAB BLOOD ORDERABLES Final Resul t Performing Organization Address [facility] de Phone Number [facility] [address] [place] [address], [place] [phone] * Vitamin D 25 hydroxy (02/20/2024 6:28 AM EST) Pathologist [facility] Vit D, 25-Hydroxy 51.1 30.0 - 80.0 ng/mL LAB CHEMISTRY METHOD 02/20/2024 8:25 AM EST [facility] Blood Venous blood specimen / Unknown 02/20/2024 6:28 AM EST 02/20/2024 7:34 AM EST us Augustine Dan MD LAB BLOOD ORDERABLES Final Resul t Performing Organization Address [facility] Co de Phone Number [facility] [address] [place] [address], [place] [phone] * (ABNORMAL) Comprehensive metabolic panel (02/20/2024 6:28 AM EST) Pathologist [facility] Sodium 142 133 - 145 mmol/L LAB CHEMISTRY METHOD 02/20/2024 8:23 AM [facility] Potassium 3.5 3.5 - 5.5 mmol/L LAB CHEMISTRY METHOD 02/20/2024 8:23 AM [facility] Chloride 105 96 - 110 mmol/L LAB CHEMISTRY METHOD 02/20/2024 8:23 AM [facility] CO2 35(H) 21 - 32 mmol/L LAB CHEMISTRY METHOD 02/20/2024 8:23 AM [facility] Anion Gap 2(L) 3 - 11 LAB CHEMISTRY METHOD 02/20/2024 8:23 AM [facility] Glucose 81 70 - 100 mg/dL LAB CHEMISTRY METHOD 02/20/2024 8:23 AM [facility] BUN 22 5 - 25 mg/dL LAB CHEMISTRY METHOD 02/20/2024 8:23 AM [facility] Creatinine 0.87 0.70 - 1.30 mg/dL LAB CHEMISTRY METHOD 02/20/2024 8:23 AM [facility] eGFR 99 >=60 mL/min/1. 73m2 LAB CHEMISTRY METHOD 02/20/2024 8:23 AM [facility] Comment:Calculation based on the??Chronic Kidney Disease Epidemiology Collaboration (CKD-EPI) equation refit??without adjustment for race. BUN/Creatinine Ratio 25.3 LAB CHEMISTRY METHOD 02/20/2024 8:23 AM [facility] Calcium 8.6 8.5 - 10.5 mg/dL LAB CHEMISTRY METHOD 02/20/2024 8:23 AM [facility] AST (SGOT) 10 10 - 42 unit/L LAB CHEMISTRY METHOD 02/20/2024 8:23 AM [facility] ALT (SGPT) 12 10 - 60 unit/L LAB CHEMISTRY METHOD 02/20/2024 8:23 AM [facility] Alkaline Phosphatase 46 42 - 121 unit/L LAB CHEMISTRY METHOD 02/20/2024 8:23 AM EST [facility] Total Protein 6.0 6.0 - 8.0 g/dL LAB CHEMISTRY METHOD 02/20/2024 8:23 AM EST [facility] Albumin 3.3 3.2 - 5.0 g/dL LAB CHEMISTRY METHOD 02/20/2024 8:23 AM [facility] Total Bilirubin 0.6 0.0 - 1.4 mg/dL LAB CHEMISTRY METHOD 02/20/2024 8:23 AM [facility] Blood Venous blood specimen / Unknown 02/20/2024 6:28 AM EST 02/20/2024 7:34 AM EST us Augustine Dan MD LAB BLOOD ORDERABLES Final Resul t [facility] [address] [place] [address], documented in this encounter Visit Diagnoses Diagnosis Major depressive disorder, recurrent, unspecified documented in this encounter Care Teams Stamp Press Operator Relationship Specialty Start Date End Date Augustine Dan MD [address] [place], [place] PCP - General Internal Medicine 04/21/24 documented as of this encounter
--- OUTSIDE RECORDS SUMMARY | 2024-05-13 18:52 | XMS_ITS | Clinical Summary ---
Author Organization [employer] Address [address] [place] [address] [address] [place] [address] Care Team Providers Care Drill Rig Operator Helper Name Role Phone Unavailable Primary Care Provider [...]
--- OUTSIDE RECORDS SUMMARY | 2024-05-13 18:52 | XMS_ITS | Clinical Summary ---
Author Organization 299 [facility] Address [address] [place] [address] Phone Care Team Providers Care Stamps Or Coins Salesperson Name Role Phone Augustine Dan MD Primary Care Provider [phone] Encounters Date Type Department Care Team Description 04/21/2024 Lab Requisition [facility] Lab [address] [place] [address] Augustine Dan MD Major depressive disorder, recurrent, unspecified (CMS/HCC) 02/20/2024 Lab Requisition [facility] Lab [address] [place] [address] Augustine Dan MD Major depressive disorder, recurrent, unspecified (CMS/HCC) from Last 3 Months Social History Tobacco [...] 19+ 3-dose series) 01/23/1984 Pneumococcal Vaccine: 50+ Ye ars (1 of 1 - PCV) 2015 Zoster Vaccines (1 of 2) 2015 Cholesterol Screening (Lipid Panel) 01/08/2022 Colorectal Cancer Screening: Colonoscopy 01/08/2022 Depression Screening 01/08/2022 HIV Screening 01/08/2022 Hepatitis C Screening 01/08/2022 Social Influencers of Health Screening 01/08/2022 COVID-19 Vaccine ( - 2023-2 5 season) 2023 Influenza Vaccine (#1) 2023 RSV Immunization Adult Patie nts (1 - 1-dose 75+ series) 01/23/2040 HIB [...] patient's age to complete this topic Meningococcal B Vaccine Aged Out No l onger eligible based on patient's age to complete [...] Diagnosis Comments CBC WITH AUTO DIFFERENTIAL Routine 04/21/2024 4:50 AM EDT Major depressive disorder, recurrent, unspecified (CMS/HCC) VITAMIN D 25 HYDROXY Routine 04/21/2024 4:50 AM EDT Major depressive disorder, recurrent, unspecified (CMS/HCC) THYROID STIMULATING HORMONE Routine 04/21/2024 4:50 AM EDT Major depressive disorder, recurrent, unspecified (CMS/HCC) COMPREHENSIVE METABOLIC PANEL Routine 04/21/2024 4:50 AM EDT Major depressive disorder, recurrent, unspecified (CMS/HCC) CBC AND DIFFERENTIAL Routine 04/21/2024 4:50 AM EDT Major depressive disorder, recurrent, unspecified (CMS/HCC) CBC WITH AUTO DIFFERENTIAL Routine 02/20/2024 6:28 [...] EST Major depressive disorder, recurrent, unspecified (CMS/HCC) from Last 3 Months Results * (ABNORMAL) CBC auto differential (04/21/2024 4:50 AM EDT) Only the most recent of2 resultswithin the time period is included. WBC 4.3(L) 4.8 - 10.8 K/mcL LAB [facility] RBC 4.50 4.50 - 5.50 M/mcL LAB HEMETOLOGY METHOD [facility]2024 [facility] Hemoglobin 13.7 13.5 - 17.5 g/dL LAB HEMETOLOGY METHOD 04/21[facility]2024 5[facility] Hematocrit 42.9 42.0 - 54.0 % LAB HEMETOLOGY METHOD 04/21/2024 5[facility] MCV 95.8 79.0 - 98.0 FL LAB HEMETOLOGY METHOD 04/21/2024 5[facility] MCH 30.6 27.0 - 32.0 pcg LAB HEMETOLOGY METHOD 04/21/2024 5:57 AM [facility] LAB MCHC 31.9(L) 32.0 - 37.0 g/dL LAB HEMETOLOGY METHOD 04/21/2024 5:57 AM [facility] LAB RDW 14.5 11.0 - 15.0 % LAB HEMETOLOGY METHOD 04/21/2024 5:57 AM [facility] LAB Platelets 84(L) 130 - 400 K/mcL LAB HEMETOLOGY METHOD 04/21/2024 5:57 AM [facility] LAB Comment:previously verified by slide MPV 12.5(H) 7.0 - 11.0 FL LAB HEMETOLOGY METHOD 04/21/2024 5[facility] NRBC 0.0 <1.0 % LAB HEMETOLOGY METHOD 04/21/2024 5:57 AM [facility] LAB NRBC Absolute 0.00 <0.10 K/mcL LAB HEMETOLOGY METHOD 04/21/2024 5:57 AM [facility] LAB Neutrophils Relative 30.0 % LAB HEMETOLOGY METHOD 04/21/2024 5:57 AM [facility] LAB Lymphocytes Relative 50.1 % LAB HEMETOLOGY METHOD 04/21/2024 5:57 AM [facility] LAB Monocytes Relative 12.3 % LAB HEMETOLOGY METHOD 04/21/2024 5:57 AM [facility] LAB Eosinophils Relative 6.7 % LAB HEMETOLOGY METHOD 04/21/2024 5:57 AM [facility] LAB Basophils Relative 0.7 % LAB HEMETOLOGY METHOD 04/21/2024 5:57 AM [facility] LAB Immature Granulocytes Relative 0.2 % LAB HEMETOLOGY METHOD 04/21/2024 5:57 AM [facility] LAB Neutrophils Absolute 1.29(L) 1.50 - 7.00 K/mcL LAB HEMETOLOGY METHOD 04/21/2024 5:57 AM [facility] LAB Lymphocytes Absolute 2.16 1.00 - 5.00 K/mcL LAB HEMETOLOGY METHOD 04/21/2024 5:57 AM EDT [facility] LAB Monocytes Absolute 0.53 0.20 - 1.00 K/mcL LAB HEMETOLOGY METHOD 04/21/2024 5:57 AM EDT [facility] LAB Eosinophils Absolute 0.29 0.00 - 0.50 K/mcL LAB HEMETOLOGY METHOD 04/21/2024 5:57 AM EDT [facility] LAB Basophils Absolute 0.03 0.00 - 0.20 K/mcL LAB HEMETOLOGY METHOD 04/21/2024 5:57 AM EDT [facility] LAB Immature Granulocytes Absolute 0.01 0.00 - 0.03 K/mcL LAB HEMETOLOGY METHOD 04/21/2024 5:57 AM EDT [facility] LAB Blood Venous blood specimen / Unknown 04/21/2024 4:50 AM EDT 04/21/2024 5:35 AM EDT us Augustine Dan MD LAB BLOOD ORDERABLES Final Resul t Performing Organization Address City/[facility]/ZIP Co de Phone Number [facility] LAB [address] [place] [address], [place] [phone] * Vitamin D 25 hydroxy (04/21/2024 4:50 AM EDT) Only the most recent of2 resultswithin the time period is included. Vit D, 25-Hydroxy 47.8 30.0 - 80.0 ng/mL LAB CHEMISTRY METHOD 04/21/2024 6:07 AM EDT [facility] LAB Blood Venous blood specimen / Unknown 04/21/2024 4:50 AM EDT 04/21/2024 5:35 AM EDT us Augustine Dan MD LAB BLOOD ORDERABLES Final Resul t Performing Organization Address City/[facility]/ZIP Co de Phone Number [facility] [address] [place] [address], [place] [phone] * Thyroid stimulating hormone (04/21/2024 4:50 AM EDT) Only the most recent of2 resultswithin the time period is included. [facility] TSH 2.64 0.40 - 4.00 mcIU/mL LAB CHEMISTRY METHOD 04/21/2024 6:08 AM EDT [facility] LAB Blood Venous blood specimen / Unknown 04/21/2024 4:50 AM EDT 04/21/2024 5:35 AM EDT us Augustine Dan MD LAB BLOOD ORDERABLES Final Resul t [facility] [address] [place] [address], [place] [phone] * (ABNORMAL) Comprehensive metabolic panel (04/21/2024 4:50 AM EDT) Only the most recent of2 resultswithin the time period is included. [facility] Sodium 143 133 - 145 mmol/L LAB CHEMISTRY METHOD 04/21/2024 5:58 AM [facility] LAB Potassium 4.0 3.5 - 5.5 mmol/L LAB CHEMISTRY METHOD 04/21/2024 5:58 AM [facility] LAB Chloride 105 96 - 110 mmol/L LAB CHEMISTRY METHOD 04/21/2024 5:58 AM [facility] LAB CO2 35(H) 21 - 32 mmol/L LAB CHEMISTRY METHOD 04/21/2024 5:58 AM [facility] LAB Anion Gap 3 3 - 11 LAB CHEMISTRY METHOD 04/21/2024 5:58 AM [facility] LAB Glucose 90 70 - 100 mg/dL LAB CHEMISTRY METHOD 04/21/2024 5:58 AM [facility] BUN 19 5 - 25 mg/dL LAB CHEMISTRY METHOD 04/21/2024 5:58 AM [facility] LAB Creatinine 0.87 0.70 - 1.30 mg/dL LAB CHEMISTRY METHOD 04/21/2024 5:58 AM [facility] LAB eGFR 99 >=60 mL/min/1. 73m2 LAB CHEMISTRY METHOD 04/21/2024 5:58 AM [facility] LAB Comment:Calculation based on the??Chronic Kidney Disease Epidemiology Collaboration (CKD-EPI) equation refit??without adjustment for race. BUN/Creatinine Ratio 21.8 LAB CHEMISTRY METHOD 04/21/2024 5:58 AM [facility] LAB Calcium 9.0 8.5 - 10.5 mg/dL LAB CHEMISTRY METHOD 04/21/2024 5:58 AM [facility] LAB AST (SGOT) 9(L) 10 - 42 unit/L LAB CHEMISTRY METHOD 04/21/2024 5:58 AM [facility] LAB ALT (SGPT) 11 10 - 60 unit/L LAB CHEMISTRY METHOD 04/21/2024 5:58 AM [facility] LAB Alkaline Phosphatase 43 42 - 121 unit/L LAB CHEMISTRY METHOD 04/21/2024 5:58 AM [facility] Total Protein 6.3 6.0 - 8.0 g/dL LAB CHEMISTRY METHOD 04/21/2024 5:58 AM [facility] Albumin 3.0(L) 3.2 - 5.0 g/dL LAB CHEMISTRY METHOD 04/21/2024 5:58 AM [facility] LAB Total Bilirubin 0.5 0.0 - 1.4 mg/dL LAB CHEMISTRY METHOD 04/21/2024 5:58 AM [facility] LAB Blood Venous blood specimen / Unknown 04/21/2024 4:50 AM EDT 04/21/2024 5:35 AM EDT us Augustine Dan MD LAB BLOOD ORDERABLES Final Resul t [facility] [address] [place] [address], [place] [phone] from Last 3 Months Insurance MEDICAID - [place] Care Teams Stamps Or Coins Salesperson Relationship Specialty Start Date End Date Augustine Dan MD [address] [place] [address] [address] KALANI Camacho PCP - General Internal Medicine 04/21/24
--- OUTSIDE RECORDS SUMMARY | 2024-05-13 18:52 | XMS_ITS | Encounter Summary ---
Author Organization [employer] Address [address] [facility] 7[address] [place] [address] Care Team Providers Care Casino Banker Name Role Phone Unavailable Primary Care Provider [...]
--- OUTSIDE RECORDS SUMMARY | 2024-05-13 18:52 | XMS_ITS | Encounter Summary ---
Author Organization [employer] Address [address] [place] [address] Care Team Providers Care Intervention Specialist Name Role Phone Augustine Dan MD Primary Care Provider [phone] Encounter Details Date Type Department Care Team (Late st Contact Info) Description 02/04/2024 Lab Requisition [facility] - Main Lab [address] [place] [address] Augustine Dan MD [address] [place] [address] [address] KALANI Camacho Dysuria Social History Tobacco Use Types Packs/Day [...] Hold for add-ons. 02/04/2024 7:02 PM EST [facility] ([facility] LAB Comment:Auto resulted. Urine Urine specimen obtained by clean catch procedure / Unknown 02/04/2024 1:30 PM EST 02/04/2024 5:27 PM EST us Augustine Dan MD LAB URINE ORDERABLES Final Resul t [facility] LAB [address] [place] [address], * Urinalysis with reflex microscopic and culture (02/04/2024 1:30 PM EST) Specific [place] Urine 1.015 1.003 - 1.030 LAB URINALYSIS - AUTOMATED METHOD 02/04/2024 5:44 PM [facility] LAB pH, Urine 7.5 5.0 - 8.0 pH LAB URINALYSIS - AUTOMATED METHOD 02/04/2024 5:44 PM [facility] Leukocytes, Urine Negative Negative LAB URINALYSIS - AUTOMATED METHOD 02/04/2024 5:44 PM [facility] Nitrite, Urine Negative Negative LAB URINALYSIS - AUTOMATED METHOD 02/04/2024 5:44 PM [facility] Protein, Urine Negative <=Trace mg/dL LAB URINALYSIS - AUTOMATED METHOD 02/04/2024 5:44 PM [facility] Glucose, Urine Negative Negative mg/dL LAB URINALYSIS - AUTOMATED METHOD 02/04/2024 5:44 PM [facility] Ketones, Urine Negative Negative mg/dL LAB URINALYSIS - AUTOMATED METHOD 02/04/2024 5:44 PM [facility] LAB Urobilinogen, Urine 0.2 0.2 - 1.0 mg/dL LAB URINALYSIS - AUTOMATED METHOD 02/04/2024 5:44 PM [facility] LAB Bilirubin, Urine Negative Negative LAB URINALYSIS - AUTOMATED METHOD 02/04/2024 5:44 PM [facility] Blood, Urine Negative Negative LAB URINALYSIS - AUTOMATED METHOD 02/04/2024 5:44 PM [facility] Urine Urine specimen obtained by clean catch procedure / Unknown 02/04/2024 1:30 PM EST 02/04/2024 5:12 PM EST us Augustine Dan MD LAB URINE ORDERABLES Final Resul t [facility] ([facility]) [facility] LAB [address] [place] [address], documented in this encounter Visit Diagnoses Diagnosis Dysuria documented in this encounter Care Teams Intervention Specialist Relationship Specialty Start Date End Date Augustine Dan MD [address] [place], [place] PCP - General Internal Medicine 04/21/24 documented as of this encounter
--- OUTSIDE RECORDS SUMMARY | 2024-05-13 18:52 | XMS_ITS | Encounter Summary ---
Author Organization [employer] Address [address] [place] [address] Care Team Providers Care Laboratory Chemist Name Role Phone Augustine Dan MD Primary Care Provider [phone] Encounter Details Date Type Department Care Team (Late st Contact Info) Description 01/21/2024 Lab Requisition [facility] - Main Lab [address] [place] [address] Augustine Dan MD [address] [place] [address] Dr [address] KALANI Camacho Major depressive [...] AM EST) WBC 4.9 4.8 - 10.8 K/[facility] LAB HEMETOLOGY METHOD 01/21/2024 7:29 AM EST [facility] ([facility] LAB RBC 5.10 4.50 - 5.50 M/mcL LAB HEMETOLOGY METHOD 01/21/2024 7:29 AM [facility] LAB Hemoglobin 15.5 13.5 - 17.5 g/dL LAB HEMETOLOGY METHOD 01/21/2024 7:29 AM [facility] LAB Hematocrit 48.0 42.0 - 54.0 % LAB HEMETOLOGY METHOD 01/21/2024 7:29 AM [facility] LAB MCV 93.9 79.0 - 98.0 FL LAB HEMETOLOGY METHOD 01/21/2024 7:29 AM [facility] LAB MCH 30.3 27.0 - 32.0 pcg LAB HEMETOLOGY METHOD 01/21/2024 7:29 AM [facility] LAB MCHC 32.3 32.0 - 37.0 g/dL LAB HEMETOLOGY METHOD 01/21/2024 7:29 AM [facility] LAB RDW 13.5 11.0 - 15.0 % LAB HEMETOLOGY METHOD 01/21/2024 7:29 AM [facility] LAB Platelets 118(L) 130 - 400 K/mcL LAB HEMETOLOGY METHOD 01/21/2024 7:29 AM [facility] LAB MPV 11.3(H) 7.0 - 11.0 FL LAB HEMETOLOGY METHOD 01/21/2024 7:29 AM [facility] LAB NRBC 0.0 <1.0 % LAB HEMETOLOGY METHOD 01/21/2024 7:29 AM [facility] LAB NRBC Absolute 0.00 <0.10 K/mcL LAB HEMETOLOGY METHOD 01/21/2024 7:29 AM [facility] LAB Neutrophils Relative 37.6 % LAB HEMETOLOGY METHOD 01/21/2024 7:29 AM [facility] LAB Lymphocytes Relative 47.7 % LAB HEMETOLOGY METHOD 01/21/2024 7:29 AM [facility] LAB Monocytes Relative 10.2 % LAB HEMETOLOGY METHOD 01/21/2024 7:29 AM [facility] LAB Eosinophils Relative 3.7 % LAB HEMETOLOGY METHOD 01/21/2024 7:29 AM [facility] Basophils Relative 0.6 % LAB HEMETOLOGY METHOD 01/21/2024 7:29 AM [facility] LAB Immature Granulocytes Relative 0.2 % LAB HEMETOLOGY METHOD 01/21/2024 7:29 AM [facility] LAB Neutrophils Absolute 1.83 1.50 - 7.00 K/mcL LAB HEMETOLOGY METHOD 01/21/2024 7:29 AM [facility] LAB Lymphocytes Absolute 2.33 1.00 - 5.00 K/mcL LAB HEMETOLOGY METHOD 01/21/2024 7:29 AM [facility] LAB Monocytes Absolute 0.50 0.20 - 1.00 K/mcL LAB HEMETOLOGY METHOD 01/21/2024 7:29 AM [facility] LAB Eosinophils Absolute 0.18 0.00 - 0.50 K/mcL LAB HEMETOLOGY METHOD 01/21/2024 7:29 AM [facility] LAB Basophils Absolute 0.03 0.00 - 0.20 K/mcL LAB HEMETOLOGY METHOD 01/21/2024 7:29 AM [facility] LAB Immature Granulocytes Absolute 0.01 0.00 - 0.03 K/mcL LAB HEMETOLOGY METHOD 01/21/2024 7:29 AM [facility] LAB Blood Venous blood specimen / Unknown 01/21/2024 6:25 AM EST 01/21/2024 7:16 AM EST us Augustine Dan MD LAB BLOOD ORDERABLES Final Resul t [facility] [address] [place] [address], * Valproic acid level, total (01/21/2024 6:25 AM EST) Valproic Acid, Total 88 50 - 100 mcg/mL LAB CHEMISTRY METHOD 01/21/2024 7:34 AM EST [facility] Blood Venous blood specimen / Unknown 01/21/2024 6:25 AM EST 01/21/2024 7:16 AM EST us Augustine Dan MD LAB BLOOD ORDERABLES Final Resul t [facility] [address] [place] [address], documented in this encounter Visit Diagnoses Diagnosis Major depressive disorder, recurrent, unspecified documented in this encounter Care Teams Laboratory Chemist Relationship Specialty Start Date End Date Augustine Dan MD [address] [place] [address] Dr [address] [place], [place] PCP - General Internal Medicine 04/21/24 documented as of this encounter
--- OUTSIDE RECORDS SUMMARY | 2024-05-13 18:52 | XMS_ITS | Encounter Summary ---
Author Organization [employer] Address [address] [place] [address] Care Team Providers Care Walking Dragline Operator Name Role Phone Augustine Dan MD Primary Care Provider [phone] Encounter Details Date Type Department Care Team (Late st Contact Info) Description 04/21/2024 Lab Requisition [facility] - Main Lab [address] [facility] [place] [address] Augustine Dan MD [address] [place] [address] [address] KALANI Camacho Major depressive disorder, [...] EDT Major depressive disorder, recurrent, unspecified (CMS/HCC) documented in this encounter Results * (ABNORMAL) CBC auto differential (04/21/2024 4:50 AM EDT) [facility] WBC 4.3(L) 4.8 - 10.8 K/mcL LAB HEMETOLOGY METHOD [facility]24 5[facility] RBC 4.50 4.50 - 5.50 M/mcL LAB HEMETOLOGY METHOD 04/21/2024 5:57 AM EDT [facility] Hemoglobin 13.7 13.5 - 17.5 g/dL LAB HEMETOLOGY METHOD 04/21/2024 5[facility] Hematocrit 42.9 42.0 - 54.0 % LAB HEMETOLOGY METHOD 04/21/2024 5:57 AM [facility] LAB MCV 95.8 79.0 - 98.0 FL LAB HEMETOLOGY METHOD 04/21/2024 5:57 [facility] MCH 30.6 27.0 - 32.0 pcg LAB HEMETOLOGY METHOD 04/21/2024 5:57 AM [facility] LAB MCHC 31.9(L) 32.0 - 37.0 g/dL LAB HEMETOLOGY METHOD 04/21/2024 5:57 AM [facility] RDW 14.5 11.0 - 15.0 % LAB HEMETOLOGY METHOD 04/21/2024 5:57 [facility] Platelets 84(L) 130 - 400 K/mcL LAB HEMETOLOGY METHOD 04/21/2024 5:57 AM [facility] LAB Comment:previously verified by slide MPV 12.5(H) 7.0 - 11.0 FL LAB HEMETOLOGY METHOD 04/21/2024 5:57 [facility] NRBC 0.0 <1.0 % LAB HEMETOLOGY METHOD 04/21/2024 5:57 [facility] NRBC Absolute 0.00 <0.10 K/mcL LAB HEMETOLOGY METHOD 04/21/2024 5:57 AM EDT [facility] Neutrophils Relative 30.0 % LAB HEMETOLOGY METHOD 04/21/2024 5:57 AM [facility] Lymphocytes Relative 50.1 % LAB HEMETOLOGY METHOD 04/21/2024 5:57 AM EDT [facility] Monocytes Relative 12.3 % LAB HEMETOLOGY METHOD 04/21/2024 5:57 AM [facility] Eosinophils Relative 6.7 % LAB HEMETOLOGY METHOD 04/21/2024 5:57 AM [facility] Basophils Relative 0.7 % LAB HEMETOLOGY METHOD 04/21/2024 5:57 AM [facility] Immature Granulocytes Relative 0.2 % LAB HEMETOLOGY METHOD 04/21/2024 5:57 AM [facility] Neutrophils Absolute 1.29(L) 1.50 - 7.00 K/mcL LAB HEMETOLOGY METHOD 04/21/2024 5:57 AM [facility] Lymphocytes Absolute 2.16 1.00 - 5.00 K/mcL LAB HEMETOLOGY METHOD 04/21/2024 5:57 AM [facility] Monocytes Absolute 0.53 0.20 - 1.00 K/mcL LAB HEMETOLOGY METHOD 04/21/2024 5:57 AM [facility] Eosinophils Absolute 0.29 0.00 - 0.50 K/mcL LAB HEMETOLOGY METHOD 04/21/2024 5:57 AM [facility] Basophils Absolute 0.03 0.00 - 0.20 K/mcL LAB HEMETOLOGY METHOD 04/21/2024 5:57 AM [facility] Immature Granulocytes Absolute 0.01 0.00 - 0.03 K/mcL LAB HEMETOLOGY METHOD 04/21/2024 5:57 AM EDT [facility] Blood Venous blood specimen / Unknown 04/21/2024 4:50 AM EDT 04/21/2024 5:35 AM EDT us Augustine Dan MD LAB BLOOD ORDERABLES Final Resul t Performing Organization Address [facility] Co de Phone Number [facility] [address] [place] [address], [place] [phone] * Vitamin D 25 hydroxy (04/21/2024 4:50 AM EDT) Vit D, 25-Hydroxy 47.8 30.0 - 80.0 ng/mL LAB CHEMISTRY METHOD 04/21/2024 6:07 AM EDT [facility] Blood Venous blood specimen / Unknown 04/21/2024 4:50 AM EDT 04/21/2024 5:35 AM EDT us Augustine Dan MD LAB BLOOD ORDERABLES Final Resul t Performing Organization Address [facility] de Phone Number [facility] [address] [place] [address], [place] [phone] * Thyroid stimulating hormone (04/21/2024 4:50 AM EDT) TSH 2.64 0.40 - 4.00 mcIU/mL LAB CHEMISTRY METHOD 04/21/2024 6:08 AM EDT [facility] Blood Venous blood specimen / Unknown 04/21/2024 4:50 AM EDT 04/21/2024 5:35 AM EDT us Augustine Dan MD LAB BLOOD ORDERABLES Final Resul t Performing Organization Address City/[facility]/ZIP Co de Phone Number [facility] [address] [place] [address], [place] [phone] * (ABNORMAL) Comprehensive metabolic panel (04/21/2024 4:50 AM EDT) Sodium 143 133 - 145 mmol/L LAB CHEMISTRY METHOD 04/21/2024 5:58 AM [facility] Potassium 4.0 3.5 - 5.5 mmol/L LAB CHEMISTRY METHOD 04/21/2024 5:58 AM [facility] Chloride 105 96 - 110 mmol/L LAB CHEMISTRY METHOD 04/21/2024 5:58 AM [facility] CO2 35(H) 21 - 32 mmol/L LAB CHEMISTRY METHOD 04/21/2024 5:58 AM [facility] Anion Gap 3 3 - 11 LAB CHEMISTRY METHOD 04/21/2024 5:58 AM [facility] Glucose 90 70 - 100 mg/dL LAB CHEMISTRY METHOD 04/21/2024 5:58 AM [facility] BUN 19 5 - 25 mg/dL LAB CHEMISTRY METHOD 04/21/2024 5:58 AM [facility] Creatinine 0.87 0.70 - 1.30 mg/dL LAB CHEMISTRY METHOD 04/21/2024 5:58 AM [facility] LAB eGFR 99 >=60 mL/min/1. 73m2 LAB CHEMISTRY METHOD 04/21/2024 5:58 AM [facility] LAB Comment:Calculation based on the??Chronic Kidney Disease Epidemiology Collaboration (CKD-EPI) equation refit??without adjustment for race. BUN/Creatinine Ratio 21.8 LAB CHEMISTRY METHOD 04/21/2024 5:58 AM [facility] Calcium 9.0 8.5 - 10.5 mg/dL LAB CHEMISTRY METHOD 04/21/2024 5:58 AM [facility] AST (SGOT) 9(L) 10 - 42 unit/L LAB CHEMISTRY METHOD 04/21/2024 5:58 AM [facility] ALT (SGPT) 11 10 - 60 unit/L LAB CHEMISTRY METHOD 04/21/2024 5:58 AM EDT [facility] Alkaline Phosphatase 43 42 - 121 unit/L LAB CHEMISTRY METHOD 04/21/2024 5:58 AM EDT [facility] Total Protein 6.3 6.0 - 8.0 g/dL LAB CHEMISTRY METHOD 04/21/2024 5:58 AM EDT [facility] Albumin 3.0(L) 3.2 - 5.0 g/dL LAB CHEMISTRY METHOD 04/21/2024 5:58 AM EDT [facility] Total Bilirubin 0.5 0.0 - 1.4 mg/dL LAB CHEMISTRY METHOD 04/21/2024 5:58 AM T [facility] Blood Venous blood specimen / Unknown 04/21/2024 4:50 AM EDT 04/21/2024 5:35 AM EDT us Augustine Dan MD LAB BLOOD ORDERABLES Final Resul t [facility] [address] [place] [address], documented in this encounter Visit Diagnoses Diagnosis Major depressive disorder, recurrent, unspecified documented in this encounter Care Teams Walking Dragline Operator Relationship Specialty Start Date End Date Augustine Dan MD [address] [place] [address] Dr [address] [place], [place] PCP - General Internal Medicine 04/21/24 documented as of this encounter
--- OUTSIDE RECORDS SUMMARY | 2024-05-13 18:52 | XMS_ITS | Encounter Summary ---
Author Organization [employer] Address [address] [facility] [address]t [place] [address] Care Team Providers Care Environmental Sampler Name Role Phone Unavailable Primary Care Provider Unavailabl e Encounter Details Date Type Department Care Team (Latest Contact Info) Description 06/09/2020 Abstract [facility] CONVERSIONS Dental, Provider, DDS Social [...]
--- OUTSIDE RECORDS SUMMARY | 2024-05-13 18:52 | XMS_ITS | Encounter Summary ---
Author Organization [employer] Address [address] [facility] [address]t [place] [address] Care Team Providers Care Green Building Architect Name Role Phone Unavailable Primary Care Provider [...]
--- OUTSIDE RECORDS SUMMARY | 2024-05-13 18:52 | XMS_ITS | Encounter Summary ---
Author Organization [id number] Address [address] [place] [address] Care Team Providers Care Physical Therapy Nurse Name Role Phone Augustine Dan MD Primary Care Provider [phone] Encounter Details Date Type Department Care Team (Late st Contact Info) Description 02/05/2024 Lab Requisition [facility] - Main Lab [address] [facility] [place] [address] Augustine Dan MD [address] [place] [address] [address] KALANI Camacho Other retirement (current) drug therapy Social History Tobacco Use [...] GOLD Routine 02/05/2024 6:20 AM EST Other retirement (current) drug therapy PREGABALIN Routine 02/05/2024 6:20 AM EST Other retirement (current) drug therapy LEVETIRACETAM LEVEL Routine 02/05/2024 6:20 AM EST Other retirement (current) drug therapy COMPLETE BLOOD COUNT Routine 02/05/2024 6:20 AM EST Other retirement (current) drug therapy AMMONIA Routine 02/05/2024 6:20 AM EST Other rn long term care (current) drug therapy VALPROIC ACID LEVEL, TOTAL Routine 02/05/2024 6:20 AM EST Other rn long term care (current) drug therapy COMPREHENSIVE METABOLIC PANEL Routine 02/05/2024 6:20 AM EST Other rn long term care (current) drug therapy documented in this encounter Results * Valproic acid level, total (02/05/2024 6:20 AM EST) Valproic Acid, Total 92 50 - 100 mcg/mL LAB CHEMISTRY METHOD 02/05/2024 7:30 PM EST [facility] Blood Venous blood specimen / Unknown 02/05/2024 6:20 AM EST 02/05/2024 7:31 AM EST us Augustine Dan MD LAB BLOOD ORDERABLES Final Resul t Performing Organization Address City/[facility]/ZIP Co de Phone Number [facility] [address] [place] [address], [place] [phone] * SST tube (02/05/2024 6:20 AM EST) Extra Tube Hold for add-ons. 02/05/2024 9:01 AM EST [facility] Comment:Auto resulted. Blood Venous blood specimen / Unknown 02/05/2024 6:20 AM EST 02/05/2024 7:31 AM EST us Augustine Dan MD LAB BLOOD ORDERABLES Final Resul t Performing Organization Address City/[facility]/ZIP Co de Phone Number [facility] [address] [place] [address], [place] [phone] * Pregabalin (02/05/2024 6:20 AM EST) Pregabalin [...] 4:05 PM EST Performed at: ??01 - [facility] [address] [place] [address] ??[phone] Title I Coordinator: Monique Buzz [facility], Phone: ??[phone] Augustine Dan MD LAB BLOOD ORDERABLES Final Resul t Performing Organization Address City/[facility]/ZIP Co de Phone Number [facility] * Levetiracetam level (02/05/2024 6:20 AM EST) Levetiracetam <1.0 3.0 - 60.0 ug/mL 02/11/2024 7:53 AM EST [facility] Comment: Steady state trough serum or plasma levels following doses of 1000 to 3000 mg/Day: ??3 to 37 ug/mL. The same dosage regimen will typically result in peak levels of 10 to 60 ug/mL, at approximately 1.5 hours post dose. If applicable, any drug confirmation testing reported here was developed and the performance characteristics determined by [facility]. This confirmation testing has not been cleared or approved by the FDA. The laboratory is regulated under CLIA as qualified to perform high-complexity testing. This test is used for patient testing purposes. It should not be regarded as investigational or for research. Test performed at [facility], [address] , [place], [place] ??[address] ? [phone] Alicia Mclain MD, PhD - Al[facility]er Blood Venous blood specimen / Unknown 02/05/2024 6:20 AM EST 02/05/2024 7:25 AM EST us Augustine Dan MD LAB BLOOD ORDERABLES Final Resul t Performing Organization Address City/[facility]/ZIP Co de Phone Number [facility] [address] [place] [address] * (ABNORMAL) Ammonia (02/05/2024 6:20 AM EST) Ammonia 39(H) 11 - 35 mcmol/L LAB CHEMISTRY METHOD 02/05/2024 7:55 AM [facility] Blood Venous blood specimen / Unknown 02/05/2024 6:20 AM EST 02/05/2024 7:25 AM EST us Augustine Dan MD LAB BLOOD ORDERABLES Final Resul t [facility] [address] [place] [address], [place] [phone] * (ABNORMAL) Complete blood count (02/05/2024 6:20 AM EST) [facility] WBC 3.9(L) 4.8 - 10.8 K/mcL LAB HEMETOLOGY METHOD 02/05/2024 7:52 AM [facility] RBC 4.90 4.50 - 5.50 M/mcL LAB HEMETOLOGY METHOD 02/05/2024 7:52 AM [facility] Hemoglobin 14.8 13.5 - 17.5 g/dL LAB HEMETOLOGY METHOD 02/05/2024 7:52 AM [facility] Hematocrit 44.4 42.0 - 54.0 % LAB HEMETOLOGY METHOD 02/05/2024 7:52 AM [facility] MCV 91.2 79.0 - 98.0 FL LAB HEMETOLOGY METHOD 02/05/2024 7:52 AM [facility] MCH 30.4 27.0 - 32.0 pcg LAB HEMETOLOGY METHOD 02/05/2024 7:52 AM [facility] MCHC 33.3 32.0 - 37.0 g/dL LAB HEMETOLOGY METHOD 02/05/2024 7:52 AM [facility] RDW 13.4 11.0 - 15.0 % LAB HEMETOLOGY METHOD 02/05/2024 7:52 AM EST [facility] Platelets 111(L) 130 - 400 K/mcL LAB HEMETOLOGY METHOD 02/05/2024 7:52 AM EST [facility] MPV 11.6(H) 7.0 - 11.0 FL LAB HEMETOLOGY METHOD 02/05/2024 7:52 AM EST [facility] NRBC 0.0 <1.0 % LAB HEMETOLOGY METHOD 02/05/2024 7:52 AM EST [facility] NRBC Absolute 0.00 <0.10 K/mcL LAB HEMETOLOGY METHOD 02/05/2024 7:52 AM [facility] Blood Venous blood specimen / Unknown 02/05/2024 6:20 AM EST 02/05/2024 7:25 AM EST Augustine Dan MD LAB BLOOD ORDERABLES Final Resul t [facility] [address] [place] [address], * (ABNORMAL) Comprehensive metabolic panel (02/05/2024 6:20 AM EST) Sodium 138 133 - 145 mmol/L LAB CHEMISTRY METHOD 02/05/2024 8:23 AM [facility] Potassium 4.0 3.5 - 5.5 mmol/L LAB CHEMISTRY METHOD 02/05/2024 8:23 AM [facility] Chloride 103 96 - 110 mmol/L LAB CHEMISTRY METHOD 02/05/2024 8:23 AM [facility] CO2 31 21 - 32 mmol/L LAB CHEMISTRY METHOD 02/05/2024 8:23 AM [facility] Anion Gap 4 3 - 11 LAB CHEMISTRY METHOD 02/05/2024 8:23 AM [facility] Glucose 85 70 - 100 mg/dL LAB CHEMISTRY METHOD 02/05/2024 8:23 AM [facility] BUN 21 5 - 25 mg/dL LAB CHEMISTRY METHOD 02/05/2024 8:23 AM [facility] Creatinine 0.84 0.70 - 1.30 mg/dL LAB CHEMISTRY METHOD 02/05/2024 8:23 AM [facility] eGFR 100 >=60 mL/min/1. 73m2 LAB CHEMISTRY METHOD 02/05/2024 8:23 AM [facility] Comment:Calculation based on the??Chronic Kidney Disease Epidemiology Collaboration (CKD-EPI) equation refit??without adjustment for race. BUN/Creatinine Ratio 25.0 LAB CHEMISTRY METHOD 02/05/2024 8:23 AM [facility] Calcium 9.0 8.5 - 10.5 mg/dL LAB CHEMISTRY METHOD 02/05/2024 8:23 AM [facility] AST (SGOT) 9(L) 10 - 42 unit/L LAB CHEMISTRY METHOD 02/05/2024 8:23 AM [facility] Comment:Results verified by repeat testing ALT (SGPT) 14 10 - 60 unit/L LAB CHEMISTRY METHOD 02/05/2024 8:23 AM [facility] Alkaline Phosphatase 49 42 - 121 unit/L LAB CHEMISTRY METHOD 02/05/2024 8:23 AM [facility] Total Protein 7.0 6.0 - 8.0 g/dL LAB CHEMISTRY METHOD 02/05/2024 8:23 AM [facility] Albumin 3.7 3.2 - 5.0 g/dL LAB CHEMISTRY METHOD 02/05/2024 8:23 AM [facility] Total Bilirubin 0.7 0.0 - 1.4 mg/dL LAB CHEMISTRY METHOD 02/05/2024 8:23 AM [facility] Blood Venous blood specimen / Unknown 02/05/2024 6:20 AM EST 02/05/2024 7:25 AM EST us Augustine Dan MD LAB BLOOD ORDERABLES Final Resul t [facility] [address] [place] [address], documented in this encounter Visit Diagnoses Diagnosis Other rn long term care (current) drug therapy documented in this encounter Care Teams Physical Therapy Nurse Relationship Specialty Start Date End Date Augustine Dan MD [address] [place] [address] Dr [address] [place], [place] PCP - General Internal Medicine 04/21/24 documented as of this encounter
--- NOTE | 2024-05-13 19:25 | PC.NURSE ---
this rn assumed care of pt, pt resting in stretcher, no acute distress noted. pt tachy intermittent 130s. provider aware, plan for transport back to [facility] in place.
[2024-05-13 19:30] VITALS: BP 99/52; PULSE 81; RESP 18; TEMP 36.7; O2SAT 93
[2024-05-13 21:52] VITALS: BP 132/78; PULSE 87; RESP 20; TEMP 36.9; O2SAT 95
--- NOTE | 2024-05-13 21:53 | PC.NURSE ---
ems at bedside for transport.
[2024-05-13 22:00] VITALS: BP 132/78; PULSE 87; RESP 20; TEMP 36.9; O2SAT 95
== END 2024-05-13 22:01 ==
PROVIDERS: Emergency Provider Emergency Medicine Emergency Medical Services; PCP Hospitalist
DX: R50.9 Fever, unspecified (principal); Z03.818 Encounter for observation for suspected exposure to other biological agents ruled out; R06.02 Shortness of breath; R05.9 Cough, unspecified; Z87.01 Personal history of pneumonia (recurrent); Z79.899 Other long term (current) drug therapy
CPT/HCPCS: 0241U; 36415; 71045; 80053; 81003; 83605; 85025; 87040; 87205; 93005; 96361; 96374; 96375; 99284; 99285; J0131; J1885; J7120

== ENCOUNTER → 2024-05-13 15:36 | Outpatient (BNV) | payer MEDICAID, SELFPAY | PROVIDERS: Emergency Provider Emergency Medicine Emergency Medical Services; PCP Hospitalist; Visit Provider Internal Medicine Cardiovascular Disease | DX: I48.91 Unspecified atrial fibrillation (principal) | CPT/HCPCS: 93010 ==

== ENCOUNTER → 2024-05-13 15:50 | Outpatient (BNV) | payer MEDICAID, SELFPAY | PROVIDERS: Emergency Provider Emergency Medicine Emergency Medical Services; PCP Hospitalist; Visit Provider Radiology Diagnostic Radiology | DX: R53.1 Weakness (principal) | CPT/HCPCS: 71045 ==

== ENCOUNTER 2024-05-20 09:00 | Outpatient (AMB) | payer MEDICAID, SELFPAY ==
[2024-05-20 09:35] VITALS: BP 90/62; PULSE 72; BMI 30.7
--- NOTE | 2024-05-20 09:35 | A.OFFVIS_ITS ---
Vital Signs 05/20/24 09:35 Height 5 ft 10 in Weight 214 lb 4.629 oz BMI 30.7 BP 90/62 Blood Pressure Location Lt brachial Position Sitting Pulse 72 Pulse Source Monitor Intake Visit Reasons: Follow up-AFIB Customer Care Assistant Required: No Sld Educational Aide: Sld Educational Aide Present Allergies aripiprazole [From ABILIFY] Allergy (Severe, Verified 05/20/24 09:42) Involuntary Spasms droperidol [From INAPSINE] Allergy (Severe, Verified 05/20/24 09:42) Involuntary Spasms haloperidol [From HALDOL] Allergy (Severe, Verified 05/20/24 09:42) Involuntary Spasms prochlorperazine [From COMPAZINE] Allergy (Severe, Verified 05/20/24 09:42) Involuntary Spasms promethazine [From PHENERGAN] Allergy (Severe, Verified 05/20/24 09:42) Involuntary Spasms sulfamethoxazole [From BACTRIM] Allergy (Severe, Verified 05/20/24 09:42) Anaphylaxis trimethoprim [From BACTRIM] Allergy (Severe, Verified 05/20/24 09:42) Anaphylaxis Medication List - Last Reconciled 05/20/24 by Gabby Rodarte NP-C [abdominal binder Pt to wear binder during daytime hours - may remove for shower ] acetaminophen 500 mg PO Q6H PRN MDD 3g alum-mag hydroxide-simeth 200-200-20 mg/5 mL 30 mL PO Q4H PRN apixaban (Eliquis) 5 mg PO BID cefuroxime axetil 500 mg PO BID cholecalciferol (vitamin D3) 50 mcg PO DAILY dextromethorphan-guaifenesin 10-100 mg/5 mL (Tussin DM) 10 mL PO Q4H PRN diazepam 2 mg PO TID divalproex ER (Depakote ER) 250 mg PO BID divalproex ER (Depakote ER) 500 mg PO BID guaifenesin ER 600 mg PO BID melatonin 1 mg PO BEDTIME metoprolol succinate ER 25 mg See Protocol PO BID midodrine 5 mg PO TID@0900,1400,1800 nystatin 1 appl topical BID ondansetron 4 mg PO Q6H PRN polyethylene glycol 3350 (Miralax) 17 grams PO BID pregabalin 100 mg PO TID psyllium 1 packet PO BID sennosides-docusate sodium 8.6-50 mg 1 tab-cap PO DAILY HPI HPI Follow up-AFIB: Details: Matt is a 59-year-old male with past medical history of neuroleptic malignant syndrome secondary to Abilify in 2008, chronic upper extremity contractures, anxiety, hypertension, bradycardia, who was recently admitted to [facility] with report of sepsis and new finding of atrial fibrillation. He was put on Eliquis for anticoagulation and has been on metoprolol which was continued. Today he presents for post hospital follow-up with his sister. She is very involved in his care and goes to all his appointments with him. Patient states that he has been doing well since his hospital discharge. He has been noticing some increasing fatigue. No shortness of breath, PND, orthopnea. He does have some chronic mild leg edema. No chest discomfort at rest or with activity. No lightheadedness, presyncope, syncope. At the time of sepsis he did have 2 falls. He has not had any time. He ambulates with the use of the walker. He resides at [facility] 1 he takes all medications as provided. No bleeding issues reported with Eliquis use. [facility] Medical History Neurogenic bladder Constipation Resides in [facility] facility History of GI bleed Seizure disorder Urinary incontinence Osteoarthritis Rectal prolapse Cognitive impairment Hx of deep venous thrombosis Thrombocytopenia Bilateral cataracts Personal history of COVID-19 Diverticular disease Flexion contractures OCD (obsessive compulsive disorder) History of hemodialysis Depression Neuroleptic malignant syndrome Epilepsy Deformity of left hand Generalized anxiety disorder Major depressive disorder Mild cognitive impairment Hypertension Surgical History History of incisional hernia repair (03/15/22) History of repair of rectocele Hx of appendectomy Hx of colonoscopy Family History Sister Breast CA, Onset Age: 51 Ovarian ca, Onset Age: 55 Father Prostate CA, Onset Age: 70 Mother Colorectal cancer, Onset Age: 39 Kidney carcinoma, Onset Age: 67 Maternal Grandmother Colorectal cancer, Onset Age: 70 Maternal Aunt Colorectal cancer Social History Household Members: None Household Members Other:: lives at [facility] Housing: Assisted Living Facility Housing Other:: patient coming from [facility] one Are you a primary animal care attendant to a significant other at home: No Do you presently have visiting nurse or other home services: Yes Unable to assess alcohol history related to: Unable to respond Alcohol intake: never Comment: [facility] Patient Tobacco Use Status: Never used Tobacco e-Cigarette/Vaping Use: Never Used Second Hand Smoke Exposure: No Advance Directives Date on File: 11/21/19 service: No Current occupational status: disabled Review of Systems Const All systems reviewed & are unremarkable except as noted in HPI and below Reports fatigue ENT Denies dizziness Card Denies chest pain, Denies chest pain at rest, Denies chest pain with activity, Denies rapid heart rate, Denies pedal edema, Denies edema, Denies leg edema, Denies lightheadedness, Denies palpitations, Denies dyspnea, Denies dyspnea on exertion and Denies orthopnea Resp Denies cough, Denies dyspnea and Denies dyspnea on exertion GI Denies hematochezia and Denies change in stool character Musc Details: sedentary Reports abnormal gait, Denies limited range of motion, Denies muscle cramps, Denies muscle weakness, Denies numbness, Denies radiating pain into limb, Denies stiffness and Denies tingling Neuro Reports abnormal gait, Denies dizziness, Denies numbness and Denies tingling Endo Reports fatigue and Denies palpitations Physical Exam Vital Signs: Last Vital Signs Pulse 72 05/20/24 09:35 BP 90/62 05/20/24 09:35 BMI result Body Mass Index 30.7 Const General: cooperative, healthy appearing, comfortable and no acute distress Orientation/consciousness: patient oriented x3 Neck Neck: Yes normal visual inspection Resp Effort & Inspection: normal respiratory effort Auscultation: clear to auscultation bilaterally, no rales, no rhonchi and no wheezes Cardio Rate: regular rate Rhythm: abnormal rhythm Heart sounds: S1 normal heart sound present, S2 normal heart sound present, no gallops, no murmurs and no rubs Neuro General: patient oriented x3 Extrem General: Yes normal to inspection, No no pedal edema and No calf tenderness Psych Appearance: grossly normal Mental Status: mental status grossly normal Speech and movement: Normal speech and movement present Office Procedures EKG Details: Today, read by me, atrial fibrillation, nonspecific T-wave abnormality, rate 72, QTC 433 milliseconds [id number], Complete Assessment & Plan Assessment & Plan (1) New onset a-fib: Code(s): I48.91 - Unspecified atrial fibrillation Category: Medical Plan: New atrial fibrillation at the time of sepsis admission at [facility] in March. Will need to reach out and obtain those records. He was put on Eliquis for anticoagulation which he is tolerating. He was taking metoprolol XL 25 mg b.i.d. which was continued. EKG done today showing atrial fibrillation with nonspecific T-wave abnormality, rate 72. He is not noticing any heart palpitations but does report some newer fatigue. Will check Holter monitor see if he is having paroxysmal versus persistent atrial fibrillation and to assess rate control. Echocardiogram done 03/21/2024 shows EF 60-65%, mild LVH. Diagnosis of AFib, stroke risk, need for anticoagulation and treatment options reviewed with him. Pending Holter results we will determine if rhythm control will be pursued. Cardiology follow-up 6-8 weeks, sooner if needed. (2) Bradycardia: Code(s): R00.1 - Bradycardia, unspecified Category: Medical Plan: Prior episode of sinus bradycardia during hospital admission for sepsis, last year. He was evaluated by EP at that time and pacemaker was not indicated. A Holter monitor was done 03/2023 which showed sinus rhythm with an average heart rate 68 beats per minute with one 11 beat atrial tach. He is on low-dose metoprolol. Heart rate normal at this time. Holter pending as above. (3) Hypertension: Code(s): I10 - Essential (primary) hypertension Category: Medical Plan: History of hypertension. Blood pressure running low since his most recent sepsis episode according to sister. He is now on midodrine 3 times daily. Blood pressure today 90/62, asymptomatic. Reviewed need for good hydration, use caution from sitting to standing. (4) Hospital discharge follow-up: Code(s): Z09 - Encounter for follow-up examination after completed treatment for conditions other than malignant neoplasm Category: Medical Plan: As above Plan Time spent on chart review, documentation, interview and assessment Orders: Orders ECG 3 day holter monitor Today I48.91 - Unspecified atrial fibrillation, R00.1 - Bradycardia, unspecified Coding Level of Care Code Est Pt Level 4 (20551) Complex EM visit Add On G2211 Diagnoses New onset a-fib I48.91 Bradycardia R00.1 Hypertension I10 Hospital discharge follow-up Z09 CPT Codes EKG - CPT: 73930-[id number], Complete ([id number]) Time Spent (min) 28
--- OUTSIDE RECORDS SUMMARY | 2024-05-20 09:42 | XMS_ITS | Encounter Summary ---
Author Organization [facility] Address [address] [place] [address] Care Team Providers Care Head Machine Feeder Name Role Phone Augustine Dan MD Primary Care Provider [phone] Encounter Details Date Type Department Care Team (Late st Contact Info) Description 01/14/2024 Lab Requisition [facility] - Main Lab [address] [place] [address] Augustine Dan MD [address] [place] [address] [address] [place] Malignant neuroleptic syndrome Social History Tobacco Use [...] HEMETOLOGY METHOD 01/14/2024 7:46 PM EST [facility] MPV 11.4(H) 7.0 - 11.0 FL LAB HEMETOLOGY METHOD 01/14/2024 7:46 PM EST [facility] Blood Venous blood specimen / Unknown 01/14/2024 01/14/2024 6:53 PM EST us Augustine Dan MD LAB BLOOD ORDERABLES Final Resul t [facility] [address] [place] [address], documented in this encounter Visit Diagnoses Diagnosis Malignant neuroleptic syndrome Neuroleptic malignant syndrome documented in this encounter Care Teams Head Machine Feeder Relationship Specialty Start Date End Date Augustine Dan MD [address] [place] [address] Dr [address] [place] PCP - General Internal Medicine 04/21/24 documented as of this encounter
--- OUTSIDE RECORDS SUMMARY | 2024-05-20 09:42 | XMS_ITS | Encounter Summary ---
Author Organization [employer] Address [address] [place] [address] Care Team Providers Care Ceramic Tiler Name Role Phone Augustine Dan MD Primary Care Provider [phone] Encounter Details Date Type Department Care Team (Late st Contact Info) Description 01/11/2024 Lab Requisition [facility] - Main Lab [address] [facility] [place] [address] Augustine Dan MD [address] [place] [address] [address] KALANI Camacho Other long term care pharmacist (current) drug therapy Social History Tobacco Use [...] PANEL Routine 01/11/2024 5:10 AM EST Other half-way (current) drug therapy documented in this encounter Results * (ABNORMAL) Comprehensive metabolic panel (01/11/2024 5:10 AM EST) Sodium 144 133 - 145 mmol/L LAB CHEMISTRY METHOD 01/11/2024 6:57 AM EST [facility] Potassium 3.8 3.5 - 5.5 mmol/L LAB CHEMISTRY METHOD 01/11/2024 6:57 AM EST [facility] Chloride 109 96 - 110 mmol/L LAB CHEMISTRY METHOD 01/11/2024 6:57 AM EST [facility] CO2 30 21 - 32 mmol/L LAB CHEMISTRY METHOD 01/11/2024 6:57 AM [facility] Anion Gap 5 3 - 11 LAB CHEMISTRY METHOD 01/11/2024 6:57 AM [facility] Glucose 87 70 - 100 mg/dL LAB CHEMISTRY METHOD 01/11/2024 6:57 AM [facility] BUN 20 5 - 25 mg/dL LAB CHEMISTRY METHOD 01/11/2024 6:57 AM [facility] Creatinine 0.82 0.70 - 1.30 mg/dL LAB CHEMISTRY METHOD 01/11/2024 6:57 AM [facility] eGFR 102 >=60 mL/min/1. 73m2 LAB CHEMISTRY METHOD 01/11/2024 6:57 AM [facility] Comment:Calculation based on the??Chronic Kidney Disease Epidemiology Collaboration (CKD-EPI) equation refit??without adjustment for race. BUN/Creatinine Ratio 24.4 LAB CHEMISTRY METHOD 01/11/2024 6:57 AM [facility] Calcium 9.0 8.5 - 10.5 mg/dL LAB CHEMISTRY METHOD 01/11/2024 6:57 AM [facility] AST (SGOT) 47(H) 10 - 42 unit/L LAB CHEMISTRY METHOD 01/11/2024 6:57 AM [facility] ALT (SGPT) 19 10 - 60 unit/L LAB CHEMISTRY METHOD 01/11/2024 6:57 AM [facility] Alkaline Phosphatase 46 42 - 121 unit/L LAB CHEMISTRY METHOD 01/11/2024 6:57 AM [facility] Total Protein 6.3 6.0 - 8.0 g/dL LAB CHEMISTRY METHOD 01/11/2024 6:57 AM [facility] Albumin 3.3 3.2 - 5.0 g/dL LAB CHEMISTRY METHOD 01/11/2024 6:57 AM [facility] Total Bilirubin 0.5 0.0 - 1.4 mg/dL LAB CHEMISTRY METHOD 01/11/2024 6:57 AM [facility] Blood Venous blood specimen / Unknown 01/11/2024 5:10 AM EST 01/11/2024 6:11 AM EST us Augustine Dan MD LAB BLOOD ORDERABLES Final Resul t [facility] [address] [place] [address], * (ABNORMAL) Complete blood count (01/11/2024 5:10 AM EST) WBC 6.9 4.8 - 10.8 K/mcL LAB HEMETOLOGY METHOD 01/11/2024 6:52 AM [facility] RBC 4.70 4.50 - 5.50 M/mcL LAB HEMETOLOGY METHOD 01/11/2024 6:52 AM [facility] Hemoglobin 14.3 13.5 - 17.5 g/dL LAB HEMETOLOGY METHOD 01/11/2024 6:52 AM [facility] Hematocrit 43.5 42.0 - 54.0 % LAB HEMETOLOGY METHOD 01/11/2024 6:52 AM [facility] MCV 92.8 79.0 - 98.0 FL LAB HEMETOLOGY METHOD 01/11/2024 6:52 AM [facility] MCH 30.5 27.0 - 32.0 pcg LAB HEMETOLOGY METHOD 01/11/2024 6:52 AM [facility] MCHC 32.9 32.0 - 37.0 g/dL LAB HEMETOLOGY METHOD 01/11/2024 6:52 AM [facility] RDW 13.8 11.0 - 15.0 % LAB HEMETOLOGY METHOD 01/11/2024 6:52 AM [facility] Platelets 83(L) 130 - 400 K/mcL LAB HEMETOLOGY METHOD 01/11/2024 6:52 AM EST [facility] Comment:reviewed by slide MPV 12.0(H) 7.0 - 11.0 FL LAB HEMETOLOGY METHOD 01/11/2024 6:52 AM EST [facility] NRBC 0.0 <1.0 % LAB HEMETOLOGY METHOD 01/11/2024 6:52 AM EST [facility] NRBC Absolute 0.00 <0.10 K/mcL LAB HEMETOLOGY METHOD 01/11/2024 6:52 AM EST [facility] Blood Venous blood specimen / Unknown 01/11/2024 5:10 AM EST 01/11/2024 6:11 AM EST us Augustine Dan MD LAB BLOOD ORDERABLES Final Resul t [facility] [address] [place] [address], [place] [phone] documented in this encounter Visit Diagnoses Diagnosis Other half-way (current) drug therapy documented in this encounter Care Teams Ceramic Tiler Relationship Specialty Start Date End Date Augustine Dan MD [address] [place] [address] [address] KALANI Camacho PCP - General Internal Medicine 04/21/24 documented as of this encounter
--- OUTSIDE RECORDS SUMMARY | 2024-05-20 09:42 | XMS_ITS | Encounter Summary ---
Author Organization [email or web address] Address [address] [place] [address] Care Team Providers Care Electronic Commerce Specialist Name Role Phone Augustine Dan MD Primary Care Provider [phone] Encounter Details Date Type Department Care Team (Late st Contact Info) Description 02/20/2024 Lab Requisition [facility] - Main Lab [address] [facility] [place] [address] Augustine Dan MD [address] [place] [address] [address] KALANI Camacho Major depressive disorder, recurrent, unspecified (CMS/HCC V24) Social History Tobacco Use Types Packs/Day Years [...] CBC auto differential (02/20/2024 6:28 AM EST) [facility] WBC 4.2(L) 4.8 - 10.8 K/mcL LAB HEMETOLOGY METHOD 02/20/2024 8:35 AM [facility] RBC 4.60 4.50 - 5.50 M/mcL LAB HEMETOLOGY METHOD 02/20/2024 8:35 AM [facility] Hemoglobin 13.9 13.5 - 17.5 g/dL LAB HEMETOLOGY METHOD 02/20/2024 8:35 AM [facility] Hematocrit 43.5 42.0 - 54.0 % LAB HEMETOLOGY METHOD 02/20/2024 8:35 AM [facility] MCV 94.8 79.0 - 98.0 FL LAB HEMETOLOGY METHOD 02/20/2024 8:35 AM [facility] MCH 30.3 27.0 - 32.0 pcg LAB HEMETOLOGY METHOD 02/20/2024 8:35 AM [facility] MCHC 32.0 32.0 - 37.0 g/dL LAB HEMETOLOGY METHOD 02/20/2024 8:35 AM [facility] RDW 13.7 11.0 - 15.0 % LAB HEMETOLOGY METHOD 02/20/2024 8:35 AM [facility] Platelets 76(L) 130 - 400 K/mcL LAB HEMETOLOGY METHOD 02/20/2024 8:35 AM [facility] Comment:reviewed by slide MPV 12.0(H) 7.0 - 11.0 FL LAB HEMETOLOGY METHOD 02/20/2024 8:35 AM [facility] NRBC 0.0 <1.0 % LAB HEMETOLOGY METHOD 02/20/2024 8:35 AM [facility] NRBC Absolute 0.00 <0.10 K/mcL LAB HEMETOLOGY METHOD 02/20/2024 8:35 AM [facility] Neutrophils Relative 42.7 % LAB HEMETOLOGY METHOD 02/20/2024 8:35 AM [facility] Lymphocytes Relative 38.4 % LAB HEMETOLOGY METHOD 02/20/2024 8:35 AM [facility] Monocytes Relative 12.1 % LAB HEMETOLOGY METHOD 02/20/2024 8:35 AM [facility] Eosinophils Relative 5.9 % LAB HEMETOLOGY METHOD 02/20/2024 8:35 AM [facility] Basophils Relative 0.7 % LAB HEMETOLOGY METHOD 02/20/2024 8:35 AM [facility] Immature Granulocytes Relative 0.2 % LAB HEMETOLOGY METHOD 02/20/2024 8:35 AM [facility] Neutrophils Absolute 1.80 1.50 - 7.00 K/[facility] LAB HEMETOLOGY METHOD 02/20/2024 8:35 AM [facility] Lymphocytes Absolute 1.62 1.00 - 5.00 K/[facility] LAB HEMETOLOGY METHOD 02/20/2024 8:35 AM [facility] Monocytes Absolute 0.51 0.20 - 1.00 K/[facility] LAB HEMETOLOGY METHOD 02/20/2024 8:35 AM [facility] Eosinophils Absolute 0.25 0.00 - 0.50 K/[facility] LAB HEMETOLOGY METHOD 02/20/2024 8:35 AM [facility] Basophils Absolute 0.03 0.00 - 0.20 K/[facility] LAB HEMETOLOGY METHOD 02/20/2024 8:35 AM [facility] Immature Granulocytes Absolute 0.01 0.00 - 0.03 K/[facility] LAB HEMETOLOGY METHOD 02/20/2024 8:35 AM [facility] Blood Venous blood specimen / Unknown 02/20/2024 6:28 AM EST 02/20/2024 7:34 AM EST us Augustine Dan MD LAB BLOOD ORDERABLES Final Resul t Performing Organization Address [facility] de Phone Number [facility] [address] [place] [address], [place] [phone] * Thyroid stimulating hormone (02/20/2024 6:28 AM EST) [facility] TSH 3.34 0.40 - 4.00 mcIU/mL LAB CHEMISTRY METHOD 02/20/2024 8:25 AM EST [facility] Blood Venous blood specimen / Unknown 02/20/2024 6:28 AM EST 02/20/2024 7:34 AM EST us Augustine Dan MD LAB BLOOD ORDERABLES Final Resul t Performing Organization Address [facility] [place] [facility] de Phone Number [facility] [address] [place] [address], [place] [phone] * Vitamin D 25 hydroxy (02/20/2024 6:28 AM EST) [facility] Vit D, 25-Hydroxy 51.1 30.0 - 80.0 ng/mL LAB CHEMISTRY METHOD 02/20/2024 8:25 AM EST [facility] Blood Venous blood specimen / Unknown 02/20/2024 6:28 AM EST 02/20/2024 7:34 AM EST us Augustine Dan MD LAB BLOOD ORDERABLES Final Resul t Performing Organization Address [facility] Co de Phone Number [facility] [address] [place] [address], [place] [phone] * (ABNORMAL) Comprehensive metabolic panel (02/20/2024 6:28 AM EST) [facility] Sodium 142 133 - 145 mmol/L LAB CHEMISTRY METHOD 02/20/2024 8:23 AM [facility] Potassium 3.5 3.5 - 5.5 mmol/L LAB CHEMISTRY METHOD 02/20/2024 8:23 AM [facility] Chloride 105 96 - 110 mmol/L LAB CHEMISTRY METHOD 02/20/2024 8:23 AM [facility] CO2 35(H) 21 - 32 mmol/L LAB CHEMISTRY METHOD 02/20/2024 8:23 AM [facility] Anion Gap 2(L) 3 - 11 LAB CHEMISTRY METHOD 02/20/2024 8:23 AM [facility] Glucose 81 70 - 100 mg/dL LAB CHEMISTRY METHOD 02/20/2024 8:23 AM [facility] BUN 22 5 - 25 mg/dL LAB CHEMISTRY METHOD 02/20/2024 8:23 AM [facility] Creatinine 0.87 0.70 - 1.30 mg/dL LAB CHEMISTRY METHOD 02/20/2024 8:23 AM [facility] eGFR 99 >=60 mL/min/1. 73m2 LAB CHEMISTRY METHOD 02/20/2024 8:23 AM [facility] Comment:Calculation based on the??Chronic Kidney Disease Epidemiology Collaboration (CKD-EPI) equation refit??without adjustment for race. BUN/Creatinine Ratio 25.3 LAB CHEMISTRY METHOD 02/20/2024 8:23 AM [facility] Calcium 8.6 8.5 - 10.5 mg/dL LAB CHEMISTRY METHOD 02/20/2024 8:23 AM [facility] AST (SGOT) 10 10 - 42 unit/L LAB CHEMISTRY METHOD 02/20/2024 8:23 AM [facility] ALT (SGPT) 12 10 - 60 unit/L LAB CHEMISTRY METHOD 02/20/2024 8:23 AM [facility] Alkaline Phosphatase 46 42 - 121 unit/L LAB CHEMISTRY METHOD 02/20/2024 8:23 AM EST [facility] Total Protein 6.0 6.0 - 8.0 g/dL LAB CHEMISTRY METHOD 02/20/2024 8:23 AM EST [facility] Albumin 3.3 3.2 - 5.0 g/dL LAB CHEMISTRY METHOD 02/20/2024 8:23 AM [facility] Total Bilirubin 0.6 0.0 - 1.4 mg/dL LAB CHEMISTRY METHOD 02/20/2024 8:23 AM EST [facility] Blood Venous blood specimen / Unknown 02/20/2024 6:28 AM EST 02/20/2024 7:34 AM EST us Augustine Dan MD LAB BLOOD ORDERABLES Final Resul t [facility] [address] [place] [address], documented in this encounter Visit Diagnoses Diagnosis Major depressive disorder, recurrent, unspecified (CMS/HCC V24) documented in this encounter Care Teams Electronic Commerce Specialist Relationship Specialty Start Date End Date Augustine Dan MD [address] [place] [address] [address] [place] PCP - General Internal Medicine 04/21/24 documented as of this encounter
--- OUTSIDE RECORDS SUMMARY | 2024-05-20 09:42 | XMS_ITS | Encounter Summary ---
Author Organization [employer] Address [address] [place] [address] Care Team Providers Care Tree Topper Name Role Phone Augustine Dan MD Primary Care Provider [phone] Encounter Details Date Type Department Care Team (Late st Contact Info) Description 01/21/2024 Lab Requisition [facility] - Main Lab [address] [place] [address] Augustine Dan MD [address] [place] [address] [address] KALANI Camacho Major depressive [...] AM EST) WBC 4.9 4.8 - 10.8 K/[facility] LAB HEMETOLOGY METHOD 01/21/2024 7:29 AM EST [facility] RBC 5.10 4.50 - 5.50 M/mcL LAB HEMETOLOGY METHOD 01/21/2024 7:[address] [facility] Hemoglobin 15.5 13.5 - 17.5 g/dL LAB HEMETOLOGY METHOD 01/21/2024 7:[address] [facility] Hematocrit 48.0 42.0 - 54.0 % LAB HEMETOLOGY METHOD 01/21/2024 7:[address] [facility] MCV 93.9 79.0 - 98.0 FL LAB HEMETOLOGY METHOD 01/21/2024 7:[address] [facility] MCH 30.3 27.0 - 32.0 pcg LAB HEMETOLOGY METHOD 01/21/2024 7:[address] [facility] MCHC 32.3 32.0 - 37.0 g/dL LAB HEMETOLOGY METHOD 01/21/2024 7:[address] [facility] RDW 13.5 11.0 - 15.0 % LAB HEMETOLOGY METHOD 01/21/2024 7:[address] [facility] Platelets 118(L) 130 - 400 K/mcL LAB HEMETOLOGY METHOD 01/21/2024 7:[address] [facility] MPV 11.3(H) 7.0 - 11.0 FL LAB HEMETOLOGY METHOD 01/21/2024 7:[address] [facility] NRBC 0.0 <1.0 % LAB HEMETOLOGY METHOD 01/21/2024 7:[address] [facility] NRBC Absolute 0.00 <0.10 K/mcL LAB HEMETOLOGY METHOD 01/21/2024 7:[address] [facility] Neutrophils Relative 37.6 % LAB HEMETOLOGY METHOD 01/21/2024 7:[address] [facility] Lymphocytes Relative 47.7 % LAB HEMETOLOGY METHOD 01/21/2024 7:[address] [facility] Monocytes Relative 10.2 % LAB HEMETOLOGY METHOD 01/21/2024 7:[address] [facility] Eosinophils Relative 3.7 % LAB HEMETOLOGY METHOD 01/21/2024 7:[address] [facility] Basophils Relative 0.6 % LAB HEMETOLOGY METHOD 01/21/2024 7:[address] [facility] Immature Granulocytes Relative 0.2 % LAB HEMETOLOGY METHOD 01/21/2024 7:[address] [facility] Neutrophils Absolute 1.83 1.50 - 7.00 K/mcL LAB HEMETOLOGY METHOD 01/21/2024 7:[address] [facility] Lymphocytes Absolute 2.33 1.00 - 5.00 K/mcL LAB HEMETOLOGY METHOD 01/21/2024 7:[address] [facility] Monocytes Absolute 0.50 0.20 - 1.00 K/mcL LAB HEMETOLOGY METHOD 01/21/2024 7:[address] [facility] Eosinophils Absolute 0.18 0.00 - 0.50 K/mcL LAB HEMETOLOGY METHOD 01/21/2024 7:[address] [facility] Basophils Absolute 0.03 0.00 - 0.20 K/mcL LAB HEMETOLOGY METHOD 01/21/2024 7:29 AM EST [facility] Immature Granulocytes Absolute 0.01 0.00 - 0.03 K/mcL LAB HEMETOLOGY METHOD 01/21/2024 7:[address] [facility] Blood Venous blood specimen / Unknown 01/21/2024 6:25 AM EST 01/21/2024 7:16 AM EST us Augustine Dan MD LAB BLOOD ORDERABLES Final Resul t [facility] [address] [place] [address], * Valproic acid level, total (01/21/2024 6:25 AM EST) Valproic Acid, Total 88 50 - 100 mcg/mL LAB CHEMISTRY METHOD 01/21/2024 7:34 AM EST [facility] Blood Venous blood specimen / Unknown 01/21/2024 6:25 AM EST 01/21/2024 7:16 AM EST us Augustine Dan MD LAB BLOOD ORDERABLES Final Resul t [facility] [address] [place] [address], [place] [phone] documented in this encounter Visit Diagnoses Diagnosis Major depressive disorder, recurrent, unspecified (CMS/HCC V24) documented in this encounter Care Teams Tree Topper Relationship Specialty Start Date End Date Augustine Dan MD [address] [place] [address] [address] [place], [place] PCP - General Internal Medicine 04/21/24 documented as of this encounter
--- OUTSIDE RECORDS SUMMARY | 2024-05-20 09:42 | XMS_ITS | Clinical Summary ---
Author Organization 299 [facility] Address [address] [place] [address] Phone Care Team Providers Care Sprinkling System Installer Name Role Phone Augustine Dan MD Primary Care Provider [phone] Encounters Date Type Department Care Team Description 04/21/2024 Lab Requisition [facility] [address] [place] [address] Augustine Dan MD Major depressive disorder, recurrent, unspecified ([facility] V24) 02/20/2024 Lab Requisition [facility] [address] [place] [address] Augustine Dan MD Major depressive disorder, recurrent, unspecified ([facility] V24) from Last 3 Months Social History Tobacco [...] - 2023-2 5 season) 2023 Influenza Vaccine (Season Ended) 2024 RSV Immunization Adult Patie nts (1 - [...] K/mcL LAB HEMETOLOGY METHOD 04/21/2024 5:57 AM [facility] RBC 4.50 4.50 - 5.50 M/mcL LAB HEMETOLOGY METHOD 04/21/2024 5:57 AM [facility] Hemoglobin 13.7 13.5 - 17.5 g/dL LAB HEMETOLOGY METHOD 04/21/2024 5:57 AM [facility] Hematocrit 42.9 42.0 - 54.0 % LAB HEMETOLOGY METHOD [facility] MCV 95.8 79.0 - 98.0 FL LAB HEMETOLOGY METHOD 04/21/2024 5:57 AM [facility] MCH 30.6 27.0 - 32.0 pcg LAB HEMETOLOGY METHOD 04/21/2024 5:57 AM [facility] MCHC 31.9(L) 32.0 - 37.0 g/dL LAB HEMETOLOGY METHOD 04/21/2024 5:57 AM [facility] RDW 14.5 11.0 - 15.0 % LAB HEMETOLOGY METHOD 04/21/2024 5:57 AM [facility] Platelets 84(L) 130 - 400 K/mcL LAB HEMETOLOGY METHOD 04/21/2024 5:57 AM [facility] Comment:previously verified by slide MPV 12.5(H) 7.0 - 11.0 FL LAB HEMETOLOGY METHOD [facility]24 [facility] NRBC 0.0 <1.0 % LAB HEMETOLOGY METHOD 04/21/2024 5:57 AM [facility] NRBC Absolute 0.00 <0.10 K/mcL LAB HEMETOLOGY METHOD 04/21/2024 5:57 AM [facility] Neutrophils Relative 30.0 % LAB HEMETOLOGY METHOD 04/21/2024 5:57 AM [facility] Lymphocytes Relative 50.1 % LAB HEMETOLOGY METHOD 04/21/2024 5:57 AM [facility] Monocytes Relative 12.3 % LAB HEMETOLOGY METHOD 04/21/2024 5:57 AM [facility] Eosinophils Relative 6.7 % LAB HEMETOLOGY METHOD 04/21/2024 5:57 AM [facility] Basophils Relative 0.7 % LAB HEMETOLOGY METHOD 04/21/2024 5:57 AM [facility] Immature Granulocytes Relative 0.2 % LAB HEMETOLOGY METHOD 04/21/2024 5:57 AM [facility] Neutrophils Absolute 1.29(L) 1.50 - 7.00 K/mcL LAB HEMETOLOGY METHOD 04/21/2024 5:57 AM [facility] Lymphocytes Absolute 2.16 1.00 - 5.00 K/mcL LAB HEMETOLOGY METHOD 04/21/2024 5:57 AM EDT [facility] Monocytes Absolute 0.53 0.20 - 1.00 K/mcL LAB HEMETOLOGY METHOD 04/21/2024 5:57 AM EDT [facility] Eosinophils Absolute 0.29 0.00 - 0.50 K/mcL LAB HEMETOLOGY METHOD 04/21/2024 5:57 AM EDT [facility] Basophils Absolute 0.03 0.00 - 0.20 K/mcL LAB HEMETOLOGY METHOD 04/21/2024 5:57 AM EDT [facility] Immature Granulocytes Absolute 0.01 0.00 - 0.03 K/mcL LAB HEMETOLOGY METHOD 04/21/2024 5:57 AM EDT [facility] Blood Venous blood specimen / Unknown 04/21/2024 4:50 AM EDT 04/21/2024 5:35 AM EDT us Augustine Dan MD LAB BLOOD ORDERABLES Final Resul t Performing Organization Address [facility]/ZIP Co de Phone Number [facility] [address] [place] [address], [place] [phone] * Vitamin D 25 hydroxy (04/21/2024 4:50 AM EDT) Only the most recent of2 resultswithin the time period is included. Vit D, 25-Hydroxy 47.8 30.0 - 80.0 ng/mL LAB CHEMISTRY METHOD 04/21/2024 6:07 AM EDT [facility] Blood Venous blood specimen / Unknown 04/21/2024 4:50 AM EDT 04/21/2024 5:35 AM EDT us Augustine Dan MD LAB BLOOD ORDERABLES Final Resul t Performing Organization Address [facility]/ZIP Co de Phone Number [facility] [address] [place] [address], [place] [phone] * Thyroid stimulating hormone (04/21/2024 4:50 AM EDT) Only the most recent of2 resultswithin the time period is included. [facility] TSH 2.64 0.40 - 4.00 mcIU/mL LAB CHEMISTRY METHOD 04/21/2024 6:08 AM EDT [facility] Blood Venous blood specimen / Unknown 04/21/2024 4:50 AM EDT 04/21/2024 5:35 AM EDT us Augustine Dan MD LAB BLOOD ORDERABLES Final Resul t [facility] [address] [place] [address], * (ABNORMAL) Comprehensive metabolic panel (04/21/2024 4:50 AM EDT) Only the most recent of2 resultswithin the time period is included. [facility] Sodium 143 133 - 145 mmol/L LAB CHEMISTRY METHOD 04/21/2024 5:58 AM [facility] Potassium 4.0 3.5 - 5.5 mmol/L LAB CHEMISTRY METHOD 04/21/2024 5:58 AM [facility] Chloride 105 96 - 110 mmol/L LAB CHEMISTRY METHOD 04/21/2024 5:58 AM [facility] CO2 35(H) 21 - 32 mmol/L LAB CHEMISTRY METHOD 04/21/2024 5:58 AM [facility] Anion Gap 3 3 - 11 LAB CHEMISTRY METHOD 04/21/2024 5:58 AM [facility] Glucose 90 70 - 100 mg/dL LAB CHEMISTRY METHOD 04/21/2024 5:58 AM [facility] BUN 19 5 - 25 mg/dL LAB CHEMISTRY METHOD 04/21/2024 5:58 AM [facility] Creatinine 0.87 0.70 - 1.30 mg/dL LAB CHEMISTRY METHOD 04/21/2024 5:58 AM [facility] eGFR 99 >=60 mL/min/1. 73m2 LAB CHEMISTRY METHOD 04/21/2024 5:58 AM [facility] Comment:Calculation based on the??Chronic Kidney Disease Epidemiology Collaboration (CKD-EPI) equation refit??without adjustment for race. BUN/Creatinine Ratio 21.8 LAB CHEMISTRY METHOD 04/21/2024 5:58 AM [facility] Calcium 9.0 8.5 - 10.5 mg/dL LAB CHEMISTRY METHOD 04/21/2024 5:58 AM [facility] AST (SGOT) 9(L) 10 - 42 unit/L LAB CHEMISTRY METHOD 04/21/2024 5:58 AM [facility] ALT (SGPT) 11 10 - 60 unit/L LAB CHEMISTRY METHOD 04/21/2024 5:58 AM [facility] Alkaline Phosphatase 43 42 - 121 unit/L LAB CHEMISTRY METHOD 04/21/2024 5:58 AM [facility] Total Protein 6.3 6.0 - 8.0 g/dL LAB CHEMISTRY METHOD 04/21/2024 5:58 AM [facility] Albumin 3.0(L) 3.2 - 5.0 g/dL LAB CHEMISTRY METHOD 04/21/2024 5:58 AM [facility] Total Bilirubin 0.5 0.0 - 1.4 mg/dL LAB CHEMISTRY METHOD 04/21/2024 5:58 AM [facility] Blood Venous blood specimen / Unknown 04/21/2024 4:50 AM EDT 04/21/2024 5:35 AM EDT us Augustine Dan MD LAB BLOOD ORDERABLES Final Resul t [facility] [address] [place] [address], from Last 3 Months Insurance MEDICAID - [place] Care Teams Sprinkling System Installer Relationship Specialty Start Date End Date Augustine Dan MD [address] [place] [address] [address] KALANI Camacho PCP - General Internal Medicine 04/21/24
--- OUTSIDE RECORDS SUMMARY | 2024-05-20 09:42 | XMS_ITS | Encounter Summary ---
Author Organization [employer] Address [address] [place] [address] Care Team Providers Care Insurance Verification Clerk Name Role Phone Augustine Dan MD Primary Care Provider [phone] Encounter Details Date Type Department Care Team (Late st Contact Info) Description 12/12/[address] [facility] - Main Lab [address] [place] [address] Augustine Dan MD [address] [place] [address] [address] KALANI Camacho Major depressive disorder, [...] AM EST) WBC 4.9 4.8 - 10.8 K/[facility] LAB HEMETOLOGY METHOD 12/12/2023 6:58 AM EST [facility] LAB RBC 4.70 4.50 - 5.50 M/mcL LAB HEMETOLOGY METHOD 12/12/2023 6:58 AM [facility] Hemoglobin 14.3 13.5 - 17.5 g/dL LAB HEMETOLOGY METHOD 12/12/2023 6:58 AM [facility] LAB Hematocrit 44.8 42.0 - 54.0 % LAB HEMETOLOGY METHOD 12/12/2023 6:58 AM [facility] LAB MCV 94.5 79.0 - 98.0 FL LAB HEMETOLOGY METHOD 12/12/2023 6:58 AM [facility] LAB MCH 30.2 27.0 - 32.0 pcg LAB HEMETOLOGY METHOD 12/12/2023 6:58 AM [facility] LAB MCHC 31.9(L) 32.0 - 37.0 g/dL LAB HEMETOLOGY METHOD 12/12/2023 6:58 AM [facility] LAB RDW 13.6 11.0 - 15.0 % LAB HEMETOLOGY METHOD 12/12/2023 6:58 AM [facility] Platelets 101(L) 130 - 400 K/mcL LAB HEMETOLOGY METHOD 12/12/2023 6:58 AM [facility] LAB MPV 12.1(H) 7.0 - 11.0 FL LAB HEMETOLOGY METHOD 12/12/2023 6:58 AM [facility] LAB NRBC 0.0 <1.0 % LAB HEMETOLOGY METHOD 12/12/2023 6:58 AM [facility] LAB NRBC Absolute 0.00 <0.10 K/mcL LAB HEMETOLOGY METHOD 12/12/2023 6:58 AM [facility] Neutrophils Relative 43.6 % LAB HEMETOLOGY METHOD 12/12/2023 6:58 AM [facility] Lymphocytes Relative 40.1 % LAB HEMETOLOGY METHOD 12/12/2023 6:58 AM [facility] Monocytes Relative 11.2 % LAB HEMETOLOGY METHOD 12/12/2023 6:58 AM [facility] Eosinophils Relative 4.3 % LAB HEMETOLOGY METHOD 12/12/2023 6:58 AM [facility] Basophils Relative 0.8 % LAB HEMETOLOGY METHOD 12/12/2023 6:58 AM [facility] Immature Granulocytes Relative 0.0 % LAB HEMETOLOGY METHOD 12/12/2023 6:58 AM [facility] Neutrophils Absolute 2.13 1.50 - 7.00 K/mcL LAB HEMETOLOGY METHOD 12/12/2023 6:58 AM [facility] Lymphocytes Absolute 1.96 1.00 - 5.00 K/mcL LAB HEMETOLOGY METHOD 12/12/2023 6:58 AM [facility] Monocytes Absolute 0.55 0.20 - 1.00 K/mcL LAB HEMETOLOGY METHOD 12/12/2023 6:58 AM [facility] Eosinophils Absolute 0.21 0.00 - 0.50 K/mcL LAB HEMETOLOGY METHOD 12/12/2023 6:58 AM [facility] Basophils Absolute 0.04 0.00 - 0.20 K/mcL LAB HEMETOLOGY METHOD 12/12/2023 6:58 AM [facility] Immature Granulocytes Absolute 0.00 0.00 - 0.03 K/mcL LAB HEMETOLOGY METHOD 12/12/2023 6:58 AM [facility] Blood Venous blood specimen / Unknown 12/12/2023 5:05 AM EST 12/12/2023 6:26 AM EST us Augustine Dan MD LAB BLOOD ORDERABLES Final Resul t [facility] [address] [place] [address], [place] [phone] * Valproic acid level, total (12/12/2023 5:05 AM EST) Valproic Acid, Total 78 50 - 100 mcg/mL LAB CHEMISTRY METHOD 12/12/2023 7:01 AM EST [facility] Blood Venous blood specimen / Unknown 12/12/2023 5:05 AM EST 12/12/2023 6:26 AM EST us Augustine Dan MD LAB BLOOD ORDERABLES Final Resul t [facility] [address] [place] [address], [place] [phone] documented in this encounter Visit Diagnoses Diagnosis Major depressive disorder, recurrent, unspecified (CMS/HCC V24) documented in this encounter Care Teams Insurance Verification Clerk Relationship Specialty Start Date End Date Augustine Dan MD [address] [place] [address] [address] [place], [place] PCP - General Internal Medicine 04/21/24 documented as of this encounter
--- OUTSIDE RECORDS SUMMARY | 2024-05-20 09:42 | XMS_ITS | Encounter Summary ---
Author Organization [facility] Address [address] [place] [address] Care Team Providers Care Heater Engineer Helper Name Role Phone Augustine Dan MD Primary Care Provider [phone] Encounter Details Date Type Department Care Team (Late st Contact Info) Description 01/25/2024 Lab Requisition [facility] - Main Lab [address] [place] [address] Augustine Dan MD [address] [place] [address] [address] KALANI Camacho Other roasterman (current) drug therapy Social History Tobacco Use [...] AMMONIA Routine 01/25/2024 6:10 AM EST Other assisted (current) drug therapy VALPROIC ACID LEVEL, TOTAL Routine 01/25/2024 6:10 AM EST Other roasterman (current) drug therapy documented in this encounter Results * Valproic acid level, total (01/25/2024 6:10 AM EST) Valproic Acid, Total 82 50 - 100 mcg/mL LAB CHEMISTRY METHOD 01/25/2024 7:35 AM EST [facility] Blood Venous blood specimen / Unknown 01/25/2024 6:10 AM EST 01/25/2024 6:49 AM EST us Augustine Dan MD LAB BLOOD ORDERABLES Final Resul t [facility] [address] [place] [address], [place] [phone] * Ammonia (01/25/2024 6:10 AM EST) Ammonia 22 11 - 35 mcmol/L LAB CHEMISTRY METHOD 01/25/2024 7:28 AM EST [facility] Blood Venous blood specimen / Unknown 01/25/2024 6:10 AM EST 01/25/2024 6:49 AM EST us Augustine Dan MD LAB BLOOD ORDERABLES Final Resul t [facility] [address] [place] [address], [place] [phone] documented in this encounter Visit Diagnoses Diagnosis Other roasterman (current) drug therapy documented in this encounter Care Teams Heater Engineer Helper Relationship Specialty Start Date End Date Augustine Dan MD [address] [place] [address] [address] [place] PCP - General Internal Medicine 04/21/24 documented as of this encounter
--- OUTSIDE RECORDS SUMMARY | 2024-05-20 09:42 | XMS_ITS | Encounter Summary ---
Author Organization [employer] Address [address] [place] [address] Care Team Providers Care Arts Administrator Or Manager Name Role Phone Augustine Dan MD Primary Care Provider [phone] Encounter Details Date Type Department Care Team (Late st Contact Info) Description 02/08/2024 Lab Requisition [facility] - Main Lab [address] [place] [address] Augustine Dan MD [address] [place] [address] [address] KALANI Camacho Other intermediate project manager (current) drug therapy Social History Tobacco Use [...] TOTAL Routine 02/08/2024 5:05 AM EST Other long-term (current) drug therapy documented in this encounter Results * Valproic acid level, total (02/08/2024 5:05 AM EST) Valproic Acid, Total 80 50 - 100 mcg/mL LAB CHEMISTRY METHOD 02/08/2024 6:22 AM EST [facility] Blood Venous blood specimen / Unknown 02/08/2024 5:05 AM EST 02/08/2024 5:55 AM EST us Augustine Dan MD LAB BLOOD ORDERABLES Final Resul t [facility] [address] [place] [address], documented in this encounter Visit Diagnoses Diagnosis Other intermediate project manager (current) drug therapy documented in this encounter Care Teams Arts Administrator Or Manager Relationship Specialty Start Date End Date Augustine Dan MD [address] [place] [address] Dr [address] KALANI Camacho PCP - General Internal Medicine 04/21/24 documented as of this encounter
--- OUTSIDE RECORDS SUMMARY | 2024-05-20 09:42 | XMS_ITS | Encounter Summary ---
Author Organization [employer] Address [address] [place] [address] Care Team Providers Care Negative Assembler Name Role Phone Augustine Dan MD Primary Care Provider Encounter Details Date Type Department Care Team (Late st Contact Info) Description 01/20/[address] [facility] - Main Lab [address] [place] [address] Augustine Dan MD [address] [place] [address] [address] KALANI Camacho Urinary tract infection, [...] reflex microscopic (01/20/2024 6:00 PM EST) Specific [place] Urine 1.029 1.003 - 1.030 LAB URINALYSIS - AUTOMATED METHOD 01/20/2024 8:20 PM EST [facility] pH, Urine 5.5 5.0 - 8.0 pH LAB URINALYSIS - AUTOMATED METHOD 01/20/2024 8:20 PM [facility] Leukocytes, Urine Negative Negative LAB URINALYSIS - AUTOMATED METHOD 01/20/2024 8:20 PM [facility] Nitrite, Urine Negative Negative LAB URINALYSIS - AUTOMATED METHOD 01/20/2024 8:20 PM [facility] Protein, Urine Negative <=Trace mg/dL LAB URINALYSIS - AUTOMATED METHOD 01/20/2024 8:20 PM [facility] Glucose, Urine Negative Negative mg/dL LAB URINALYSIS - AUTOMATED METHOD 01/20/2024 8:20 PM [facility] Ketones, Urine 15(A) Negative mg/dL LAB URINALYSIS - AUTOMATED METHOD 01/20/2024 8:20 PM [facility] Urobilinogen, Urine 0.2 0.2 - 1.0 mg/dL LAB URINALYSIS - AUTOMATED METHOD 01/20/2024 8:20 PM [facility] Bilirubin, Urine Negative Negative LAB URINALYSIS - AUTOMATED METHOD 01/20/2024 8:20 PM [facility] Blood, Urine Negative Negative LAB URINALYSIS - AUTOMATED METHOD 01/20/2024 8:20 PM [facility] Urine Urine specimen obtained by clean catch procedure / Unknown 01/20/2024 6:00 PM EST 01/20/2024 8:17 PM EST us Augustine Dan MD LAB URINE ORDERABLES Final Resul t [facility] [address] [place] [address], * Culture urine (01/20/2024 6:00 PM EST) Culture, Urine No growth 01/21/2024 1:22 PM EST [facility] Urine Urine specimen obtained by clean catch procedure / Unknown 01/20/2024 6:00 PM EST 01/20/2024 8:17 PM EST us Augustine Dan MD LAB MICROBIOLOGY - GENERAL ORDER KETTY Final Result [facility] [address] [place] [address], documented in this encounter Visit Diagnoses Diagnosis Urinary tract infection, site not specified documented in this encounter Care Teams Negative Assembler Relationship Specialty Start Date End Date Augustine Dan MD [address] [place] [address] Dr [address] [place], [place] PCP - General Internal Medicine 04/21/24 documented as of this encounter
--- OUTSIDE RECORDS SUMMARY | 2024-05-20 09:42 | XMS_ITS | Encounter Summary ---
Author Organization [employer] Address [address] [place] [address] Care Team Providers Care Merchandise Stocker Name Role Phone Augustine Dan MD Primary Care Provider [phone] Encounter Details Date Type Department Care Team (Late st Contact Info) Description 02/04/2024 Lab Requisition [facility] - Main Lab [address] [facility] [place] [place] [place] [address] Social History Tobacco Use Types [...] on filedocumented in this encounter Care Teams Merchandise Stocker Relationship Specialty Start Date End Date Augustine Dan MD [address] [place] [address] Dr [address] KALANI Camacho PCP - General Internal Medicine 04/21/24 documented as of this encounter
--- OUTSIDE RECORDS SUMMARY | 2024-05-20 09:42 | XMS_ITS | Encounter Summary ---
Author Organization [employer] Address [address] [place] [address] Care Team Providers Care Fiber Optic Assembler Name Role Phone Augustine Dan MD Primary Care Provider [phone] Encounter Details Date Type Department Care Team (Late st Contact Info) Description 02/05/2024 Lab Requisition [facility] - Main Lab [address] [facility] [place] [address] Augustine Dan MD [address] [place] [address] [address] KALANI Camacho Other halfway (current) drug therapy Social History Tobacco Use [...] GOLD Routine 02/05/2024 6:20 AM EST Other long winder tender (current) drug therapy PREGABALIN Routine 02/05/2024 6:20 AM EST Other halfway (current) drug therapy LEVETIRACETAM LEVEL Routine 02/05/2024 6:20 AM EST Other long winder tender (current) drug therapy COMPLETE BLOOD COUNT Routine 02/05/2024 6:20 AM EST Other long winder tender (current) drug therapy AMMONIA Routine 02/05/2024 6:20 AM EST Other long winder tender (current) drug therapy VALPROIC ACID LEVEL, TOTAL Routine 02/05/2024 6:20 AM EST Other halfway (current) drug therapy COMPREHENSIVE METABOLIC PANEL Routine 02/05/2024 6:20 AM EST Other halfway (current) drug therapy documented in this encounter Results * Valproic acid level, total (02/05/2024 6:20 AM EST) Valproic Acid, Total 92 50 - 100 mcg/mL LAB CHEMISTRY METHOD 02/05/2024 7:30 PM EST [facility] Blood Venous blood specimen / Unknown 02/05/2024 6:20 AM EST 02/05/2024 7:31 AM EST us Augustine Dan MD LAB BLOOD ORDERABLES Final Resul t Performing Organization Address City/[facility]/ZIP Co de Phone Number [facility] [address] [place] [address], [place] [phone] * SST tube (02/05/2024 6:20 AM EST) Extra Tube Hold for add-ons. 02/05/2024 9:01 AM EST [facility] Comment:Auto resulted. Blood Venous blood specimen / Unknown 02/05/2024 6:20 AM EST 02/05/2024 7:31 AM EST us Augustine Dan MD LAB BLOOD ORDERABLES Final Resul t Performing Organization Address City/[facility]/ZIP Co de Phone Number [facility] [address] [place] [address], [place] [phone] * Pregabalin (02/05/2024 6:20 AM EST) Pregabalin [...] 4:05 PM EST Performed at: ??01 - [employer] [address] [place] [address] ??[phone] Assistant Baseball Coach: Monique Buzz [facility], Phone: ??[phone] Augustine Dan MD LAB BLOOD ORDERABLES Final Resul t Performing Organization Address City/[facility]/ZIP Co de Phone Number [id number] * Levetiracetam level (02/05/2024 6:20 AM EST) Levetiracetam <1.0 3.0 - 60.0 ug/mL 02/11/2024 7:53 AM EST [facility] Comment: Steady state trough serum or plasma levels following doses of 1000 to 3000 mg/Day: ??3 to 37 ug/mL. The same dosage regimen will typically result in peak levels of 10 to 60 ug/mL, at approximately 1.5 hours post dose. If applicable, any drug confirmation testing reported here was developed and the performance characteristics determined by [facility]. This confirmation testing has not been cleared or approved by the FDA. The laboratory is regulated under CLIA as qualified to perform high-complexity testing. This test is used for patient testing purposes. It should not be regarded as investigational or for research. Test performed at [facility], [address] , [place], [place] ??[address] ? [phone] Alicia Mclain MD, PhD - Graining Operator Blood Venous blood specimen / Unknown 02/05/2024 6:20 AM EST 02/05/2024 7:25 AM EST us Augustine Dan MD LAB BLOOD ORDERABLES Final Resul t Performing Organization Address City/[facility]/ZIP Co de Phone Number [facility] [address] [place] [address] * (ABNORMAL) Ammonia (02/05/2024 6:20 AM EST) Ammonia 39(H) 11 - 35 mcmol/L LAB CHEMISTRY METHOD 02/05/2024 7:55 AM [facility] Blood Venous blood specimen / Unknown 02/05/2024 6:20 AM EST 02/05/2024 7:25 AM EST us Augustine Dan MD LAB BLOOD ORDERABLES Final Resul t [facility] [address] [place] [address], [place] [phone] * (ABNORMAL) Complete blood count (02/05/2024 6:20 AM EST) [facility] WBC 3.9(L) 4.8 - 10.8 K/mcL LAB HEMETOLOGY METHOD 02/05/2024 7:52 AM [facility] RBC 4.90 4.50 - 5.50 M/mcL LAB HEMETOLOGY METHOD 02/05/2024 7:52 AM [facility] Hemoglobin 14.8 13.5 - 17.5 g/dL LAB HEMETOLOGY METHOD 02/05/2024 7:52 AM [facility] Hematocrit 44.4 42.0 - 54.0 % LAB HEMETOLOGY METHOD 02/05/2024 7:52 AM [facility] MCV 91.2 79.0 - 98.0 FL LAB HEMETOLOGY METHOD 02/05/2024 7:52 AM [facility] MCH 30.4 27.0 - 32.0 pcg LAB HEMETOLOGY METHOD 02/05/2024 7:52 AM [facility] MCHC 33.3 32.0 - 37.0 g/dL LAB HEMETOLOGY METHOD 02/05/2024 7:52 AM [facility] RDW 13.4 11.0 - 15.0 % LAB HEMETOLOGY METHOD 02/05/2024 7:52 AM EST [facility] Platelets 111(L) 130 - 400 K/mcL LAB HEMETOLOGY METHOD 02/05/2024 7:52 AM EST [facility] MPV 11.6(H) 7.0 - 11.0 FL LAB HEMETOLOGY METHOD 02/05/2024 7:52 AM EST [facility] NRBC 0.0 <1.0 % LAB HEMETOLOGY METHOD 02/05/2024 7:52 AM EST [facility] NRBC Absolute 0.00 <0.10 K/mcL LAB HEMETOLOGY METHOD 02/05/2024 7:52 AM [facility] Blood Venous blood specimen / Unknown 02/05/2024 6:20 AM EST 02/05/2024 7:25 AM EST Augustine Dan MD LAB BLOOD ORDERABLES Final Resul t [facility] [address] [place] [address], * (ABNORMAL) Comprehensive metabolic panel (02/05/2024 6:20 AM EST) Sodium 138 133 - 145 mmol/L LAB CHEMISTRY METHOD 02/05/2024 8:23 AM [facility] Potassium 4.0 3.5 - 5.5 mmol/L LAB CHEMISTRY METHOD 02/05/2024 8:23 AM [facility] Chloride 103 96 - 110 mmol/L LAB CHEMISTRY METHOD 02/05/2024 8:23 AM [facility] CO2 31 21 - 32 mmol/L LAB CHEMISTRY METHOD 02/05/2024 8:23 AM [facility] Anion Gap 4 3 - 11 LAB CHEMISTRY METHOD 02/05/2024 8:23 AM [facility] Glucose 85 70 - 100 mg/dL LAB CHEMISTRY METHOD 02/05/2024 8:23 AM [facility] BUN 21 5 - 25 mg/dL LAB CHEMISTRY METHOD 02/05/2024 8:23 AM [facility] Creatinine 0.84 0.70 - 1.30 mg/dL LAB CHEMISTRY METHOD 02/05/2024 8:23 AM [facility] eGFR 100 >=60 mL/min/1. 73m2 LAB CHEMISTRY METHOD 02/05/2024 8:23 AM [facility] Comment:Calculation based on the??Chronic Kidney Disease Epidemiology Collaboration (CKD-EPI) equation refit??without adjustment for race. BUN/Creatinine Ratio 25.0 LAB CHEMISTRY METHOD 02/05/2024 8:23 AM [facility] Calcium 9.0 8.5 - 10.5 mg/dL LAB CHEMISTRY METHOD 02/05/2024 8:23 AM [facility] AST (SGOT) 9(L) 10 - 42 unit/L LAB CHEMISTRY METHOD 02/05/2024 8:23 AM [facility] Comment:Results verified by repeat testing ALT (SGPT) 14 10 - 60 unit/L LAB CHEMISTRY METHOD 02/05/2024 8:23 AM [facility] Alkaline Phosphatase 49 42 - 121 unit/L LAB CHEMISTRY METHOD 02/05/2024 8:23 AM [facility] Total Protein 7.0 6.0 - 8.0 g/dL LAB CHEMISTRY METHOD 02/05/2024 8:23 AM [facility] Albumin 3.7 3.2 - 5.0 g/dL LAB CHEMISTRY METHOD 02/05/2024 8:23 AM [facility] Total Bilirubin 0.7 0.0 - 1.4 mg/dL LAB CHEMISTRY METHOD 02/05/2024 8:23 AM [facility] Blood Venous blood specimen / Unknown 02/05/2024 6:20 AM EST 02/05/2024 7:25 AM EST us Augustine Dan MD LAB BLOOD ORDERABLES Final Resul t [facility] [address] [place] [address], documented in this encounter Visit Diagnoses Diagnosis Other long winder tender (current) drug therapy documented in this encounter Care Teams Fiber Optic Assembler Relationship Specialty Start Date End Date Augustine Dan MD [address] [place] [address] Dr [address] [place], [place] PCP - General Internal Medicine 04/21/24 documented as of this encounter
--- OUTSIDE RECORDS SUMMARY | 2024-05-20 09:42 | XMS_ITS | Encounter Summary ---
Author Organization [employer] Address [address] [place] [address] Care Team Providers Care Local Hazmat Driver Name Role Phone Augustine Dan MD Primary Care Provider [phone] Encounter Details Date Type Department Care Team (Late st Contact Info) Description 04/21/[address] [facility] - Main Lab [address] [facility] [employer] [place] [address] Augustine Dan MD [address] [place] [address] [address] KALANI Camacho Major depressive disorder, [...] CBC auto differential (04/21/2024 4:50 AM EDT) [facility] WBC 4.3(L) 4.8 - 10.8 K/mcL LAB HEMETOLOGY METHOD 04/21/2024 5:57 AM EDT [facility] LAB RBC 4.50 4.50 - 5.50 M/mcL LAB HEMETOLOGY METHOD 04/21/2024 5:57 AM EDT [facility] LAB Hemoglobin 13.7 13.5 - 17.5 g/dL LAB HEMETOLOGY METHOD 04/21/2024 5:57 AM EDT [facility] LAB Hematocrit 42.9 42.0 - 54.0 % LAB HEMETOLOGY METHOD [facility]24 [facility] MCV 95.8 79.0 - 98.0 FL LAB HEMETOLOGY METHOD 04/21/2024 5:57 [facility] MCH 30.6 27.0 - 32.0 pcg LAB HEMETOLOGY METHOD 04/21/2024 5:57 [facility] MCHC 31.9(L) 32.0 - 37.0 g/dL LAB HEMETOLOGY METHOD 04/21/2024 5:57 [facility] RDW 14.5 11.0 - 15.0 % LAB HEMETOLOGY METHOD 04/21/2024 5:57 AM EDT [facility] LAB Platelets 84(L) 130 - 400 K/mcL LAB HEMETOLOGY METHOD 04/21/2024 5:57 AM EDT [facility] LAB Comment:previously verified by slide MPV 12.5(H) 7.0 - 11.0 FL LAB HEMETOLOGY METHOD 04/21/2024 5:57 [facility] NRBC 0.0 <1.0 % LAB HEMETOLOGY METHOD 04/21/2024 5:57 AM EDT [facility] LAB NRBC Absolute 0.00 <0.10 K/mcL LAB HEMETOLOGY METHOD 04/21/2024 5:57 AM EDT [facility] LAB Neutrophils Relative 30.0 % LAB HEMETOLOGY METHOD 04/21/2024 5:57 [facility] Lymphocytes Relative 50.1 % LAB HEMETOLOGY METHOD 04/21/2024 5:57 AM EDT [facility] LAB Monocytes Relative 12.3 % LAB HEMETOLOGY METHOD 04/21/2024 5:57 AM EDT [facility] LAB Eosinophils Relative 6.7 % LAB HEMETOLOGY METHOD 04/21/2024 5:[address] [facility] Basophils Relative 0.7 % LAB HEMETOLOGY METHOD 04/21/2024 5:[address] [facility] Immature Granulocytes Relative 0.2 % LAB HEMETOLOGY METHOD 04/21/2024 5:[address] [facility] Neutrophils Absolute 1.29(L) 1.50 - 7.00 K/mcL LAB HEMETOLOGY METHOD 04/21/2024 5:[address] [facility] Lymphocytes Absolute 2.16 1.00 - 5.00 K/mcL LAB HEMETOLOGY METHOD 04/21/2024 5:[address] [facility] Monocytes Absolute 0.53 0.20 - 1.00 K/mcL LAB HEMETOLOGY METHOD 04/21/2024 5:57 [facility] Eosinophils Absolute 0.29 0.00 - 0.50 K/mcL LAB HEMETOLOGY METHOD 04/21/2024 5:57 [facility] Basophils Absolute 0.03 0.00 - 0.20 K/mcL LAB HEMETOLOGY METHOD 04/21/2024 5:[address] [facility] Immature Granulocytes Absolute 0.01 0.00 - 0.03 K/mcL LAB HEMETOLOGY METHOD 04/21/2024 5:57 AM EDT [facility] LAB Blood Venous blood specimen / Unknown 04/21/2024 4:50 AM EDT 04/21/2024 5:35 AM EDT us Augustine Dan MD LAB BLOOD ORDERABLES Final Resul t Performing Organization Address [facility]/ZIP Co de Phone Number [facility] LAB [address] [place] [address], [place] [phone] * Vitamin D 25 hydroxy (04/21/2024 4:50 AM EDT) Pathologist [facility] Vit D, 25-Hydroxy 47.8 30.0 - 80.0 ng/mL LAB CHEMISTRY METHOD 04/21/2024 6:07 AM EDT [facility] LAB Blood Venous blood specimen / Unknown 04/21/2024 4:50 AM EDT 04/21/2024 5:35 AM EDT us Augustine Dan MD LAB BLOOD ORDERABLES Final Resul t Performing Organization Address [facility] de Phone Number [facility] LAB [address] [place] [address], [place] [phone] * Thyroid stimulating hormone (04/21/2024 4:50 AM EDT) [facility] TSH 2.64 0.40 - 4.00 mcIU/mL LAB CHEMISTRY METHOD 04/21/2024 6:08 AM EDT [facility] LAB Blood Venous blood specimen / Unknown 04/21/2024 4:50 AM EDT 04/21/2024 5:35 AM EDT us Augustine Dan MD LAB BLOOD ORDERABLES Final Resul t Performing Organization Address [facility]/ZIP Co de Phone Number [facility] LAB [address] [place] [address], [place] [phone] * (ABNORMAL) Comprehensive metabolic panel (04/21/2024 4:50 AM EDT) Sodium 143 133 - 145 mmol/L LAB CHEMISTRY METHOD 04/21/2024 5:[address] [facility] Potassium 4.0 3.5 - 5.5 mmol/L LAB CHEMISTRY METHOD 04/21/2024 5:[address] [facility] Chloride 105 96 - 110 mmol/L LAB CHEMISTRY METHOD 04/21/2024 5:[address] [facility] CO2 35(H) 21 - 32 mmol/L LAB CHEMISTRY METHOD 04/21/2024 5:[address] [facility] Anion Gap 3 3 - 11 LAB CHEMISTRY METHOD 04/21/2024 5:[address] [facility] Glucose 90 70 - 100 mg/dL LAB CHEMISTRY METHOD 04/21/2024 5:[address] [facility] BUN 19 5 - 25 mg/dL LAB CHEMISTRY METHOD 04/21/2024 5:[address] [facility] Creatinine 0.87 0.70 - 1.30 mg/dL LAB CHEMISTRY METHOD 04/21/2024 5:[address] [facility] eGFR 99 >=60 mL/min/1. 73m2 LAB CHEMISTRY METHOD 04/21/2024 5:[address] [facility] LAB Comment:Calculation based on the??Chronic Kidney Disease Epidemiology Collaboration (CKD-EPI) equation refit??without adjustment for race. BUN/Creatinine Ratio 21.8 LAB CHEMISTRY METHOD 04/21/2024 5:[address] [facility] Calcium 9.0 8.5 - 10.5 mg/dL LAB CHEMISTRY METHOD 04/21/2024 5:[address] [facility] AST (SGOT) 9(L) 10 - 42 unit/L LAB CHEMISTRY METHOD 04/21/2024 5:[address] [facility] ALT (SGPT) 11 10 - 60 unit/L LAB CHEMISTRY METHOD 04/21/2024 5:58 AM EDT [facility] Alkaline Phosphatase 43 42 - 121 unit/L LAB CHEMISTRY METHOD 04/21/2024 5:58 AM EDT [facility] Total Protein 6.3 6.0 - 8.0 g/dL LAB CHEMISTRY METHOD 04/21/2024 5:58 AM EDT [facility] Albumin 3.0(L) 3.2 - 5.0 g/dL LAB CHEMISTRY METHOD 04/21/2024 5:58 AM EDT [facility] LAB Total Bilirubin 0.5 0.0 - 1.4 mg/dL LAB CHEMISTRY METHOD 04/21/2024 5:58 AM EDT [facility] LAB Blood Venous blood specimen / Unknown 04/21/2024 4:50 AM EDT 04/21/2024 5:35 AM EDT us Augustine Dan MD LAB BLOOD ORDERABLES Final Resul t [facility] [address] [place] [address], documented in this encounter Visit Diagnoses Diagnosis Major depressive disorder, recurrent, unspecified (CMS/HCC V24) documented in this encounter Care Teams Local Hazmat Driver Relationship Specialty Start Date End Date Augustine Dan MD [address] [place] [address] Dr [address] [facility] [place], [place] PCP - General Internal Medicine 04/21/24 documented as of this encounter
--- OUTSIDE RECORDS SUMMARY | 2024-05-20 09:42 | XMS_ITS | Encounter Summary ---
Author Organization [employer] Address [address] [place] [address] Care Team Providers Care Salon/Spa Manager Name Role Phone Augustine Dan MD Primary Care Provider [phone] Encounter Details Date Type Department Care Team (Late st Contact Info) Description 02/04/2024 Lab Requisition [facility] - Main Lab [address] [place] [address] Augustine Dan MD [address] [place] [address] Dr [address] KALANI Camacho Dysuria Social [...] Hold for add-ons. 02/04/2024 7:02 PM EST [facility] LAB Comment:Auto resulted. Urine Urine specimen obtained by clean catch procedure / Unknown 02/04/2024 1:30 PM EST 02/04/2024 5:27 PM EST us Augustine Dan MD LAB URINE ORDERABLES Final Resul t [facility] [address] [place] [address], * Urinalysis with reflex microscopic and culture (02/04/2024 1:30 PM EST) Specific [place] Urine 1.015 1.003 - 1.030 LAB URINALYSIS - AUTOMATED METHOD 02/04/2024 5:44 PM [facility] LAB pH, Urine 7.5 5.0 - 8.0 pH LAB URINALYSIS - AUTOMATED METHOD 02/04/2024 5:44 PM [facility] LAB Leukocytes, Urine Negative Negative LAB URINALYSIS - AUTOMATED METHOD 02/04/2024 5:44 PM [facility] LAB Nitrite, Urine Negative Negative LAB URINALYSIS - AUTOMATED METHOD 02/04/2024 5:44 PM [facility] Protein, Urine Negative <=Trace mg/dL LAB URINALYSIS - AUTOMATED METHOD 02/04/2024 5:44 PM [facility] LAB Glucose, Urine Negative Negative mg/dL LAB URINALYSIS - AUTOMATED METHOD 02/04/2024 5:44 PM [facility] Ketones, Urine Negative Negative mg/dL LAB URINALYSIS - AUTOMATED METHOD 02/04/2024 5:44 PM [facility] Urobilinogen, Urine 0.2 0.2 - 1.0 mg/dL LAB URINALYSIS - AUTOMATED METHOD 02/04/2024 5:44 PM [facility] LAB Bilirubin, Urine Negative Negative LAB URINALYSIS - AUTOMATED METHOD 02/04/2024 5:44 PM [facility] Blood, Urine Negative Negative LAB URINALYSIS - AUTOMATED METHOD 02/04/2024 5:44 PM [facility] Urine Urine specimen obtained by clean catch procedure / Unknown 02/04/2024 1:30 PM EST 02/04/2024 5:12 PM EST us Augustine Dan MD LAB URINE ORDERABLES Final Resul t [facility] ([facility]) [facility] [address] [place] [address], documented in this encounter Visit Diagnoses Diagnosis Dysuria documented in this encounter Care Teams Salon/Spa Manager Relationship Specialty Start Date End Date Augustine Dan MD [address] [place], [place] PCP - General Internal Medicine 04/21/24 documented as of this encounter
== END 2024-05-20 10:16 | disposition home or self-care (01) ==
LOC: HO.HCS 09:06
PROVIDERS: PCP Hospitalist; Visit Provider Nurse Practitioner Family
DX: I48.91 Unspecified atrial fibrillation (principal); R00.1 Bradycardia, unspecified; I10 Essential (primary) hypertension; Z09 Encounter for follow-up examination after completed treatment for conditions other than malignant neoplasm
CPT/HCPCS: 93010; 99214; G2211

== ENCOUNTER → 2024-05-20 09:00 | Outpatient (BNVA) | payer MEDICAID, SELFPAY | PROVIDERS: PCP Hospitalist; Visit Provider Nurse Practitioner Family | DX: I48.91 Unspecified atrial fibrillation (principal); I10 Essential (primary) hypertension; R00.1 Bradycardia, unspecified; Z09 Encounter for follow-up examination after completed treatment for conditions other than malignant neoplasm | CPT/HCPCS: 93005; 99212 ==

== ENCOUNTER 2024-06-06 13:53 | Inpatient (IN) | payer MEDICAID, SELFPAY ==
[2024-06-06] VITALS (12 sets, daily range): BP systolic 95–139; BP diastolic 43–82; PULSE 75–130; RESP 11–28; TEMP 36.7–40.3; O2SAT 88–99; BMI 30.3; BMI 30.7
--- NOTE | ~2024-06-06 | XR_ITS ---
EXAMINATION: XR CHEST 1 VIEW HISTORY: ? aspiration COMPARISON: Comparison is made with the prior examination dated 425. FINDINGS: A single AP portable view of the chest performed at 2:43 PM is submitted. There are low lung volumes. There is hazy opacification of the right lung base which may represent atelectasis, pneumonia, or a small pleural effusion. The left lung is clear. There is no pleural effusion, pneumothorax, or pulmonary vascular congestion. The heart is normal in size. The bones are intact. XR/XR chest 1V IMPRESSION: Low lung volumes. Hazy opacity at the right lung base which may represent atelectasis, pneumonia, or a small pleural effusion. Follow-up is recommended. Electronically signed by: Garett Garcia MD 06/06/2024 02:57 PM EDT
--- NOTE | 2024-06-06 14:17 | ED_ITS ---
HPI - General Adult General Chief complaint: Altered Mental Status Stated complaint: VOMITING Time Seen by Provider: 06/06/24 14:17 History of Present Illness ED Provider: Frieda HAWKINS narrative: The patient is a 59-year-old male who was chronically ill and lives at the [facility]. Apparently he had an episode of vomiting after eating lunch today. He was later noted to be very tremulous and febrile. He has a history of previous aspiration pneumonias. The patient arrived rigorous. Despite looking quite ill the patient says that he feels fine. Related Data Home Medications ?Medication ?Instructions ?Recorded ?Confirmed diazepam 2 mg tablet 2 mg PO TID 11/17/19 06/06/24 melatonin 1 mg tablet 1 mg PO BEDTIME 11/17/19 06/06/24 acetaminophen 500 mg tablet 500 mg PO Q6H PRN FEVER/MILD PAIN 02/13/20 06/06/24 cholecalciferol (vitamin D3) 25 50 mcg PO DAILY 02/13/20 06/06/24 mcg (1,000 unit) tablet pregabalin 100 mg capsule 100 mg PO TID 02/13/20 06/06/24 polyethylene glycol 3350 17 17 g PO BID 03/09/22 06/06/24 gram/dose oral powder (Miralax) divalproex 500 mg tablet,extended 500 mg PO BID 04/20/22 06/06/24 release 24 hr (Depakote ER) aluminum-mag hydroxide-simethicone 30 ml PO Q4H PRN HEARTBURN OR 05/11/22 06/06/24 200 mg-200 mg-20 mg/5 mL oral susp NAUSEA dextromethorphan-guaifenesin 10 10 ml PO Q4H PRN Cough/congestion 05/11/22 06/06/24 mg-100 mg/5 mL oral syrup (Tussin DM) psyllium 1 packet PO BID 05/11/22 06/06/24 divalproex 250 mg tablet,extended 250 mg PO BID 02/23/24 06/06/24 release 24 hr (Depakote ER) metoprolol succinate 25 mg 25 mg PO BID 02/23/24 06/06/24 tablet,extended release 24 hr midodrine 5 mg tablet 5 mg PO TID@0900,1400,1800 02/23/24 06/06/24 nystatin 100,000 unit/gram topical 1 appl topical BID 02/23/24 06/06/24 powder sennosides 8.6 mg-docusate sodium 1 tab-cap PO DAILY Constipation 02/23/24 06/06/24 50 mg tablet ondansetron 4 mg disintegrating 4 mg PO Q6H PRN NAUSEA, VOMITING 03/20/24 06/06/24 tablet bisacodyl 10 mg rectal suppository 10 mg DC DAILY PRN Constipation 06/06/24 06/06/24 lactulose 10 gram/15 mL oral 30 ml PO DAILY Constipation 06/06/24 06/06/24 solution sodium phosphates 19 gram-7 118 ml DC DAILY PRN Constipation 06/06/24 06/06/24 gram/118 mL enema (Fleet Enema) witch monica 20 % topical pads 1 pad topical NEEDED PRN 06/06/24 06/06/24 Hemorrhoids on anus Previous Rx's ?Medication ?Instructions ?Recorded abdominal binder #1 ea 03/21/22 apixaban 5 mg tablet (Eliquis) 5 mg PO BID #0 tabs 03/23/24 Allergies Allergy/AdvReac Type Severity Reaction Status Date / Time aripiprazole [From ABILIFY] Allergy Severe Involuntary Verified 06/06/24 14:18 Spasms droperidol [From INAPSINE] Allergy Severe Involuntary Verified 06/06/24 14:18 Spasms haloperidol [From HALDOL] Allergy Severe Involuntary Verified 06/06/24 14:18 Spasms prochlorperazine Allergy Severe Involuntary Verified 06/06/24 14:18 [From COMPAZINE] Spasms promethazine [From PHENERGAN] Allergy Severe Involuntary Verified 06/06/24 14:18 Spasms sulfamethoxazole Allergy Severe Anaphylaxis Verified 06/06/24 14:18 [From BACTRIM] trimethoprim [From BACTRIM] Allergy Severe Anaphylaxis Verified 06/06/24 14:18 Review of Systems 2 Review of Systems: Yes all other systems are reviewed and are negative PMFSH Past Medical History Medical History Neurogenic bladder Constipation Resides in intermediate facility History of GI bleed Seizure disorder Urinary incontinence Osteoarthritis Rectal prolapse Cognitive impairment Hx of deep venous thrombosis Thrombocytopenia Bilateral cataracts Personal history of COVID-19 Diverticular disease Flexion contractures OCD (obsessive compulsive disorder) History of hemodialysis Depression Neuroleptic malignant syndrome Epilepsy Deformity of left hand Generalized anxiety disorder Major depressive disorder Mild cognitive impairment Hypertension Surgical History History of incisional hernia repair (03/15/22) History of repair of rectocele Hx of appendectomy Hx of colonoscopy Family History Family History Sister Breast CA, Onset Age: 51 Ovarian ca, Onset Age: 55 Father Prostate CA, Onset Age: 70 Mother Colorectal cancer, Onset Age: 39 Kidney carcinoma, Onset Age: 67 Maternal Grandmother Colorectal cancer, Onset Age: 70 Maternal Aunt Colorectal cancer Social History Social History Household Members: Other Household Members Other:: From [facility] Housing: Longterm Housing Other:: patient coming from [facility] Are you a primary human services care specialist to a significant other at home: No Unable to assess alcohol history related to: Unable to respond Alcohol intake: never Comment: [facility] [place] Tobacco Use Status: Never used Tobacco e-Cigarette/Vaping Use: Never Used Second Hand Smoke Exposure: No Use of substances other than those prescribed or required for medical reasons: No Currently Displaying Signs/Symptoms of Drug Intoxication Withdrawal: No Have you been hit, kicked, punched, or otherwise hurt by someone within the past year? If so, by whom?: No Do you feel safe in your current relationship?: Yes Is there a partner from a previous relationship who is making you feel unsafe now?: No Are you made to feel afraid or neglected: No Advance Directives: Yes Advance Directives on File: Yes Advance Directives Date on File: 11/21/19 Do you have a plan to hurt others: No Plan Recently lost weight without trying: Unsure Nutrition Risks: No Nutritional Risk service: No Current occupational status: disabled Physical Exam ED Vital Signs: Vital Signs - 24 hr 06/06/24 14:09 06/06/24 15:39 06/06/24 15:44 Temperature 104.6 F H 102.6 F H 102.4 F H Pulse Rate 130 H 106 H 105 H Respiratory Rate 28 H 23 H 21 H Blood Pressure 139/82 106/63 102/46 L Pulse Oximetry 88 L 99 99 Oxygen Delivery Method Nasal Cannula Room Air Nasal Cannula Oxygen Flow Rate 3 06/06/24 16:03 06/06/24 17:09 Temperature 102 F H 100.6 F H Pulse Rate 75 Respiratory Rate 11 L Blood Pressure 101/43 L Pulse Oximetry 99 Oxygen Delivery Method Nasal Cannula Oxygen Flow Rate 3 BMI result Body Mass Index 30.3 Const Other: The patient is a chronically ill-appearing 59-year-old male who was rigorous and looked somewhat ill although he claimed he felt fine. HENMT Other: Face is symmetrical, mucous membranes moist Eyes General: appearance normal, both eyes and all related structures Neck Neck: Yes full ROM and Yes no JVD Resp Other: no obvious increased work of breathing, some rhonchorous breath sounds bilaterally Cardio Rate: tachycardic Rhythm: abnormal rhythm ( ) irregularly irregular Heart sounds: S1 normal heart sound present and S2 normal heart sound present GI Other: abdomen is soft and nontender Skin Other: skin was pale and sweaty, felt very warm Neuro Other: the patient is awake and alert. He has an unusual affect. No obvious cranial nerve at defect but his speech is slow with a paucity of speech. He perseverated that he felt fine. He seems to have significant chronic deconditioning but no focal findings. Extrem Other: Patient has mildly edematous legs bilaterally without asymmetry or tenderness or erythema. Medications Administered Generic Name Dose Route Start Last Admin Trade Name Terenceq PRN Reason Stop Dose Admin Acetaminophen 650 mg 06/06/24 20:20 06/07/24 09:16 Acetaminophen 325 Mg Tablet PO 650 mg Q6H PRN Administration Pain, Mild 1-3,fever,headache Ampicillin Sodium/Sulbactam Sodium 3 gm 06/06/24 22:00 06/07/24 09:17 Ampicillin Sodium/Sulbactam Na 3 Gm Vial IV 3 gm Q6H MAIA Administration Apixaban 5 mg 06/06/24 21:00 06/07/24 09:17 Apixaban 5 Mg Tablet PO 5 mg BID MAIA Administration Diazepam 2 mg 06/06/24 21:00 06/07/24 09:16 Diazepam 2 Mg Tablet PO 2 mg TID MAIA Administration Divalproex Sodium 250 mg 06/06/24 21:00 06/07/24 09:17 Divalproex Sodium Er 250 Mg Tab.Er.24h PO 250 mg BID MAIA Administration Divalproex Sodium 500 mg 06/06/24 21:00 06/07/24 09:16 Divalproex Sodium Er 500 Mg Tab.Er.24h PO 500 mg BID MAIA Administration Lactulose 20 gm 06/07/24 09:00 06/07/24 09:17 Lactulose 20 Gm/30 Ml Solution PO 20 gm DAILY MAIA Administration Metoprolol Succinate 25 mg 06/06/24 21:00 06/07/24 09:16 Metoprolol Succinate Er 25 Mg Tab.Er.24h PO 25 mg BID MAIA Administration Protocol Midodrine 5 mg 06/06/24 20:30 06/07/24 09:31 Midodrine Hcl 5 Mg Tablet PO 5 mg TID@0900,1400,1800 MAIA Administration Polyethylene Glycol 17 gm 06/06/24 21:00 06/07/24 09:17 Polyethylene Glycol 3350 17 Gm Powd.Pack PO 17 gm BID MAIA Administration Pregabalin 100 mg 06/06/24 21:00 06/07/24 09:16 Pregabalin 100 Mg Capsule PO 100 mg TID MAIA Administration Psyllium Hydrophilic Mucilloid 3.7 gm 06/06/24 21:00 06/07/24 09:17 Psyllium Seed 3.7 Gm Packet PO 3.7 gm BID MAIA Administration Senna/Docusate Sodium 1 tab 06/07/24 09:00 06/07/24 09:17 Sennosides/Docusate Sodium Tablet PO 1 tab DAILY MAIA Administration Sodium Chloride 3 ml 06/07/24 00:00 06/07/24 09:18 0.9 % Sodium Chloride Flush 3 Ml Syringe IVFLUSH 3 ml QSHIFT MAIA Administration Vitamin D 50 mcg 06/07/24 09:00 06/07/24 09:17 Cholecalciferol (Vitamin D3) 25 Mcg Tablet PO 50 mcg DAILY MAIA Administration Discontinued Medications Generic Name Dose Route Start Last Admin Trade Name Freq PRN Reason Stop Dose Admin Ceftriaxone Sodium 1 gm 06/06/24 14:25 06/06/24 14:32 Ceftriaxone Sodium 1 Gm Vial IVPUSH 06/06/24 14:26 1 gm ONCE ONE Administration Sodium Chloride 1,000 mls @ 999 mls/hr 06/06/24 14:30 06/06/24 15:30 Ns IV 06/06/24 15:30 Infused .Q1H1M MAIA Infusion Acetaminophen 1,000 mg in 100 mls @ 400 mls/hr 06/06/24 14:24 06/06/24 21:51 Ofirmev IV 06/06/24 14:38 Infused ONCE ONE Infusion Metronidazole 500 mg in 100 mls @ 100 mls/hr 06/06/24 14:25 06/06/24 21:51 Flagyl IV 06/06/24 15:24 Infused ONCE ONE Infusion Lactated Ringer's 1,000 mls @ 999 mls/hr 06/06/24 16:00 06/06/24 21:51 Lr IV 06/06/24 17:00 Infused .Q1H1M MAIA Infusion Lactated Ringer's 1,000 mls @ 999 mls/hr 06/06/24 17:30 06/06/24 21:51 Lr IV 06/06/24 18:30 Infused .Q1H1M MAIA Infusion Melatonin 1 mg 06/06/24 21:00 06/06/24 21:52 Melatonin 3 Mg Tablet PO Not Given BEDTIME MAIA Medical Decision Making Medical Decision Making [facility] Narrative: The patient is a 59-year-old male who lives chronically a chcf. I believe he has a history of a traumatic brain injury. He has a history of prior aspiration events. Apparently had an episode of vomiting was later found to be quite ill with hypoxia and fever. He was tachycardic and febrile and hypoxic here in the emergency room. He looks quite ill. Although he was vomiting earlier his abdomen seems benign and he denies abdominal pain. I suspect that he has had an aspiration pneumonia or pneumonitis. Blood cultures were obtained. He was given empiric antibiotics of ceftriaxone and metronidazole for a possible aspiration pneumonia. Is hyperpyrexia was treated with IV acetaminophen and a cooling blanket. He was given IV fluids. He is in chronic atrial fibrillation. His vital signs improved significantly and he was admitted to the hospitalist service. Lab Data 06/06/24 14:24 06/07/24 06:51 Labs: Lab Results 06/06/24 06/06/24 Range/Units 14:24 14:35 WBC 4.9 (4.8-10.8) X10*3/uL RBC 4.85 (4.60-5.80) X10*6/uL Hgb 15.0 (14.0-18.0) g/dl Hct 46.3 (42.0-52.0) % MCV 95.5 (80.0-98.0) fL MCH 30.9 (27.0-33.0) pg MCHC 32.4 (31.0-36.0) g/dl RDW 13.5 (11.0-16.0) % Plt Count 99 L (160-400) X10*3/uL MPV 11.2 (9.4-12.4) fL Immature Gran % (Auto) 0.4 (0.0-0.4) % Neut % (Auto) 71.0 (45-73) % Lymph % (Auto) 18.8 L (20-40) % [place] % (Auto) 8.0 (2-11) % Eos % (Auto) 1.6 (0-4) % Baso % (Auto) 0.2 (0-2) % Lymph # (Auto) 0.9 L (1.2-4.9) X10*3/uL [place] # (Auto) 0.4 (0.1-1.2) X10*3/uL Eos # (Auto) 0.1 (0.0-0.4) X10*3/uL Baso # (Auto) 0.0 (0.0-0.2) X10*3/uL Abs Immat Gran (auto) 0.02 (0.00-0.03) X10*3/uL Absolute Neuts (auto) 3.4 (2.0-8.3) x10*3/uL Absolute Nucleated RBC 0.000 (0.0-0.012) X10*3/uL Nucleated RBC % (auto) 0.0 (0.0-0.2) /100WBC VBG pH 7.36 (7.32-7.43) VBG pCO2 63 mmHg VBG pO2 51 mmHg VBG HCO3 36 H (22-26) mmol/L VBG O2 Saturation 78.0 % VBG Base Excess 8.1 mmol/L Sodium 146 H (135-145) mmol/L Potassium 4.0 (3.3-5.1) mmol/L Chloride 107 (96-108) mmol/L Carbon Dioxide 28 (22-29) mmol/L Anion Gap 15 (12-20) BUN 17 H (9-16) mg/dL Creatinine 0.92 (0.5-1.4) mg/dL Estim Creat Clear Calc 100.4 Estimated GFR > 60 Random Glucose 109 (60-115) mg/dL Lactic Acid 2.0 (0.5-2.0) mmol/L Calcium 8.9 (8.4-10.2) mg/dL Magnesium 2.0 (1.6-2.6) mg/dL Total Bilirubin 0.5 (0.0-1.0) mg/dL Direct Bilirubin 0.2 (0.0-0.5) mg/dL AST 16 (5-37) U/L ALT 11 (0-40) U/L Alkaline Phosphatase 39 (39-117) U/L Troponin I High Sens < 2.7 (<3.5-35.0) ng/L C-Reactive Protein 0.62 H (< or = 0.50) mg/dL Total Protein 6.7 (6.5-8.0) g/dL Albumin 3.7 (3.5-5.0) g/dL Valproic Acid 76.2 (50.0-100.0) mcg/mL Influenza Type A (PCR) NEGATIVE (Negative) Influenza Type B (PCR) NEGATIVE (Negative) RSV RNA Qual (PCR) NEGATIVE (Negative) SARS-CoV-2 RNA (RT-PCR) NEGATIVE (Negative) Critical Care Time Critical Care Time Critical Care Time: Yes Total Critical Care Time: 35 Attestation: The patient was critically ill with a high probability of imminent or life- threatening deterioration. I spent greater than 30 minutes of discontinuous time evaluating the patient, delivering critical care at the bedside, discussing evaluating data with consultants. Critical care time does not include time spent performing separately billable procedures or teaching. Time spent performing critical care with 35 minutes. Discharge Plan Discharge Clinical Impression: Aspiration pneumonia Patient Disposition: Admitted As Inpatient Interventions: Admission Worksheet (ED) Last Done: 06/06/24 19:43 Discharge Date/Time: 06/06/24 21:00
[2024-06-06] MEDS: 0.9 % Sodium Chloride 1,000 ML 999 ML IV (14:29)
[2024-06-06] MEDS: Acetaminophen 1,000 MG/100 ML PIGGYBACK 400 MG IV (14:32)
[2024-06-06] MEDS: cefTRIAXone sodium 1 GM VIAL IVPUSH (14:32)
[2024-06-06] MEDS: metroNIDAZOLE/NS 500 MG/100 ML PIGGYBACK 100 MG IV (14:32)
[2024-06-06 14:34] LABS: MANUAL DIFF FLAG NO
[2024-06-06 14:38] LABS: VBG Base Excess 8.1 mmol/L; VBG HCO3 36 mmol/L (22-26); VBG pCO2 63 mmHg; VBG pH 7.36 (7.32-7.43); VBG pO2 51 mmHg
[2024-06-06 14:39] LABS: Venous Blood Gas Refer to POC result
[2024-06-06 14:43] LABS: Basophils Percent Auto 0.2 % (0-2); Eosinophils Absolute Auto 0.1 X10*3/uL (0.0-0.4); Eosinophils Percent Auto 1.6 % (0-4); Hematocrit 46.3 % (42.0-52.0); Imm Gran Abs Auto 0.02 X10*3/uL (0.00-0.03); Imm Gran Pct Auto 0.4 % (0.0-0.4); Lymphocytes Absolute Auto 0.9 X10*3/uL (1.2-4.9); Lymphocytes Percent Auto 18.8 % (20-40); Mean Corpuscular HGB Conc 32.4 g/dl (31.0-36.0); Mean Corpuscular Hemoglobin 30.9 pg (27.0-33.0); Mean Corpuscular Volume 95.5 fL (80.0-98.0); Mean Platelet Volume 11.2 fL (9.4-12.4); Monocytes Absolute Auto 0.4 X10*3/uL (0.1-1.2); Neutrophils Absolute Auto 3.4 x10*3/uL (2.0-8.3); Red Blood Count 4.85 X10*6/uL (4.60-5.80); Red Cell Distribution Width 13.5 % (11.0-16.0); White Blood Count 4.9 X10*3/uL (4.8-10.8)
[2024-06-06 14:44] LABS: Platelet Count 99 X10*3/uL (160-400)
--- OUTSIDE RECORDS SUMMARY | 2024-06-06 14:51 | XMS_ITS | Encounter Summary ---
Author Organization [employer] Address [address] [place] [address] Care Team Providers Care Storehouse Clerk Name Role Phone Augustine Dan MD Primary Care Provider [phone] Encounter Details Date Type Department Care Team (Late st Contact Info) Description 02/04/2024 Lab Requisition [facility] - Main Lab [address] [place] [address] Augustine Dan MD [address] [place] [address] [address] KALANI Camacho Dysuria Social [...] Hold for add-ons. 02/04/2024 7:02 PM EST [facility] ([facility] Comment:Auto resulted. Urine Urine specimen obtained by clean catch procedure / Unknown 02/04/2024 1:30 PM EST 02/04/2024 5:27 PM EST us Augustine Dan MD LAB URINE ORDERABLES Final Resul t [facility] [address] [place] [address], * Urinalysis with reflex microscopic and culture (02/04/2024 1:30 PM EST) Specific [place] Urine 1.015 1.003 - 1.030 LAB URINALYSIS - AUTOMATED METHOD 02/04/2024 5:44 PM [facility] pH, Urine 7.5 5.0 - 8.0 pH LAB URINALYSIS - AUTOMATED METHOD 02/04/2024 5:44 PM [facility] Leukocytes, Urine Negative Negative LAB URINALYSIS - AUTOMATED METHOD 02/04/2024 5:44 PM [facility] Nitrite, Urine Negative Negative LAB URINALYSIS - AUTOMATED METHOD 02/04/2024 5:44 PM [facility] Protein, Urine Negative <=Trace mg/dL LAB URINALYSIS - AUTOMATED METHOD 02/04/2024 5:44 PM [facility] Glucose, Urine Negative Negative mg/dL LAB URINALYSIS - AUTOMATED METHOD 02/04/2024 5:44 PM [facility] Ketones, Urine Negative Negative mg/dL LAB URINALYSIS - AUTOMATED METHOD 02/04/2024 5:44 PM [facility] Urobilinogen, Urine 0.2 0.2 - 1.0 mg/dL LAB URINALYSIS - AUTOMATED METHOD 02/04/2024 5:44 PM [facility] Bilirubin, Urine Negative Negative LAB URINALYSIS - AUTOMATED METHOD 02/04/2024 5:44 PM [facility] Blood, Urine Negative Negative LAB URINALYSIS - AUTOMATED METHOD 02/04/2024 5:44 PM [facility] Urine Urine specimen obtained by clean catch procedure / Unknown 02/04/2024 1:30 PM EST 02/04/2024 5:12 PM EST us Augustine Dan MD LAB URINE ORDERABLES Final Resul t [facility] ([facility] [address] [place] [address], documented in this encounter Visit Diagnoses Diagnosis Dysuria documented in this encounter Care Teams Storehouse Clerk Relationship Specialty Start Date End Date Augustine Dan MD [address] [place], [place] PCP - General Internal Medicine 04/21/24 documented as of this encounter
--- OUTSIDE RECORDS SUMMARY | 2024-06-06 14:51 | XMS_ITS | Encounter Summary ---
Author Organization [employer] Address [address] [place] [address] Care Team Providers Care Securities Counselor Name Role Phone Augustine Dan MD Primary Care Provider [phone] Encounter Details Date Type Department Care Team (Late st Contact Info) Description 04/21/2024 Lab Requisition [facility] - Main Lab [address] [facility] [address] [place] [address] Augustine Dan MD [address] [place] [address] [address] KALANI Camacho Major depressive disorder, [...] CBC auto differential (04/21/2024 4:50 AM EDT) [facility] WBC 4.3(L) 4.8 - 10.8 K/mcL LAB HEMETOLOGY METHOD 04/21/2024 5:57 AM EDT [facility] RBC 4.50 4.50 - 5.50 M/mcL LAB HEMETOLOGY METHOD 04/21/2024 5:57 AM EDT [facility] Hemoglobin 13.7 13.5 - 17.5 g/dL LAB HEMETOLOGY METHOD 04/21/2024 5:57 AM EDT [facility] Hematocrit 42.9 42.0 - 54.0 % LAB HEMETOLOGY METHOD 04/21/2024 5:57 AM [facility] MCV 95.8 79.0 - 98.0 FL LAB HEMETOLOGY METHOD 04/21/2024 5:57 AM [facility] MCH 30.6 27.0 - 32.0 pcg LAB HEMETOLOGY METHOD 04/21/2024 5:57 AM [facility] MCHC 31.9(L) 32.0 - 37.0 g/dL LAB HEMETOLOGY METHOD 04/21/2024 5:57 AM [facility] RDW 14.5 11.0 - 15.0 % LAB HEMETOLOGY METHOD 04/21/2024 5:57 AM EDT [facility] Platelets 84(L) 130 - 400 K/mcL LAB HEMETOLOGY METHOD 04/21/2024 5:57 AM EDT [facility] Comment:previously verified by slide MPV 12.5(H) 7.0 - 11.0 FL LAB HEMETOLOGY METHOD 04/21/2024 5:57 AM [facility] NRBC 0.0 <1.0 % LAB HEMETOLOGY METHOD 04/21/2024 5:57 AM EDT [facility] NRBC Absolute 0.00 <0.10 K/mcL LAB HEMETOLOGY METHOD 04/21/2024 5:57 AM EDT [facility] Neutrophils Relative 30.0 % LAB HEMETOLOGY METHOD 04/21/2024 5:57 AM [facility] Lymphocytes Relative 50.1 % LAB HEMETOLOGY METHOD 04/21/2024 5:57 AM EDT [facility] Monocytes Relative 12.3 % LAB HEMETOLOGY METHOD 04/21/2024 5:57 AM EDT [facility] Eosinophils Relative 6.7 % LAB HEMETOLOGY METHOD 04/21/2024 5:[address] [facility] Basophils Relative 0.7 % LAB HEMETOLOGY METHOD 04/21/2024 5:[address] [facility] Immature Granulocytes Relative 0.2 % LAB HEMETOLOGY METHOD 04/21/2024 5:[address] [facility] Neutrophils Absolute 1.29(L) 1.50 - 7.00 K/mcL LAB HEMETOLOGY METHOD 04/21/2024 5:[address] [facility] Lymphocytes Absolute 2.16 1.00 - 5.00 K/mcL LAB HEMETOLOGY METHOD 04/21/2024 5:[address] [facility] Monocytes Absolute 0.53 0.20 - 1.00 K/mcL LAB HEMETOLOGY METHOD 04/21/2024 5:57 AM [facility] Eosinophils Absolute 0.29 0.00 - 0.50 K/mcL LAB HEMETOLOGY METHOD 04/21/2024 5:57 AM [facility] Basophils Absolute 0.03 0.00 - 0.20 K/mcL LAB HEMETOLOGY METHOD 04/21/2024 5:[address] [facility] Immature Granulocytes Absolute 0.01 0.00 - 0.03 K/mcL LAB HEMETOLOGY METHOD 04/21/2024 5:57 AM EDT [facility] Blood Venous blood specimen / Unknown 04/21/2024 4:50 AM EDT 04/21/2024 5:35 AM EDT us Augustine Dan MD LAB BLOOD ORDERABLES Final Resul t Performing Organization Address [facility]/ZIP Co de Phone Number [facility] [address] [place] [address], [place] [phone] * Vitamin D 25 hydroxy (04/21/2024 4:50 AM EDT) Pathologist [facility] Vit D, 25-Hydroxy 47.8 30.0 - 80.0 ng/mL LAB CHEMISTRY METHOD 04/21/2024 6:07 AM EDT [facility] Blood Venous blood specimen / Unknown 04/21/2024 4:50 AM EDT 04/21/2024 5:35 AM EDT us Augustine Dan MD LAB BLOOD ORDERABLES Final Resul t Performing Organization Address [facility] de Phone Number [facility] [address] [place] [address], [place] [phone] * Thyroid stimulating hormone (04/21/2024 4:50 AM EDT) [facility] TSH 2.64 0.40 - 4.00 mcIU/mL LAB CHEMISTRY METHOD 04/21/2024 6:08 AM EDT [facility] Blood Venous blood specimen / Unknown 04/21/2024 4:50 AM EDT 04/21/2024 5:35 AM EDT us Augustine Dan MD LAB BLOOD ORDERABLES Final Resul t Performing Organization Address City/[facility]/ZIP Co de Phone Number [facility] [address] [place] [address], [place] [phone] * (ABNORMAL) Comprehensive metabolic panel (04/21/2024 4:50 AM EDT) Sodium 143 133 - 145 mmol/L LAB CHEMISTRY METHOD 04/21/2024 5:[address] [facility] Potassium 4.0 3.5 - 5.5 mmol/L LAB CHEMISTRY METHOD 04/21/2024 5:[address] [facility] Chloride 105 96 - 110 mmol/L LAB CHEMISTRY METHOD 04/21/2024 5:[address] [facility] CO2 35(H) 21 - 32 mmol/L LAB CHEMISTRY METHOD 04/21/2024 5:[address] [facility] Anion Gap 3 3 - 11 LAB CHEMISTRY METHOD 04/21/2024 5:[address] [facility] Glucose 90 70 - 100 mg/dL LAB CHEMISTRY METHOD 04/21/2024 5:[address] [facility] BUN 19 5 - 25 mg/dL LAB CHEMISTRY METHOD 04/21/2024 5:[address] [facility] Creatinine 0.87 0.70 - 1.30 mg/dL LAB CHEMISTRY METHOD 04/21/2024 5:[address] [facility] eGFR 99 >=60 mL/min/1. 73m2 LAB CHEMISTRY METHOD 04/21/2024 5:[address] [facility] Comment:Calculation based on the??Chronic Kidney Disease Epidemiology Collaboration (CKD-EPI) equation refit??without adjustment for race. BUN/Creatinine Ratio 21.8 LAB CHEMISTRY METHOD 04/21/2024 5:[address] [facility] Calcium 9.0 8.5 - 10.5 mg/dL LAB CHEMISTRY METHOD 04/21/2024 5:[address] [facility] AST (SGOT) 9(L) 10 - 42 unit/L LAB CHEMISTRY METHOD 04/21/2024 5:[address] [facility] ALT (SGPT) 11 10 - 60 unit/L LAB CHEMISTRY METHOD 04/21/2024 5:58 AM EDT [facility] Alkaline Phosphatase 43 42 - 121 unit/L LAB CHEMISTRY METHOD 04/21/2024 5:58 AM EDT [facility] Total Protein 6.3 6.0 - 8.0 g/dL LAB CHEMISTRY METHOD 04/21/2024 5:58 AM EDT [facility] Albumin 3.0(L) 3.2 - 5.0 g/dL LAB CHEMISTRY METHOD 04/21/2024 5:58 AM EDT [facility] Total Bilirubin 0.5 0.0 - 1.4 mg/dL LAB CHEMISTRY METHOD 04/21/2024 5:58 AM EDT [facility] Blood Venous blood specimen / Unknown 04/21/2024 4:50 AM EDT 04/21/2024 5:35 AM EDT us Augustine Dan MD LAB BLOOD ORDERABLES Final Resul t [facility] [address] [place] [address], documented in this encounter Visit Diagnoses Diagnosis Major depressive disorder, recurrent, unspecified (CMS/HCC V24) documented in this encounter Care Teams Securities Counselor Relationship Specialty Start Date End Date Augustine Dan MD [address] [place] [address] Dr [address] [facility] [place], [place] PCP - General Internal Medicine 04/21/24 documented as of this encounter
--- OUTSIDE RECORDS SUMMARY | 2024-06-06 14:51 | XMS_ITS | Encounter Summary ---
Author Organization [email or web address] Address [address] [place] [address] Care Team Providers Care Principal Software Engineer Name Role Phone Augustine Dan MD Primary Care Provider [phone] Encounter Details Date Type Department Care Team (Late st Contact Info) Description 02/04/[address] [facility] - Main Lab [address] [facility] [place] [address] Social History Tobacco Use Types [...] on filedocumented in this encounter Care Teams Principal Software Engineer Relationship Specialty Start Date End Date Augustine Dan MD [address] [place] [address] Dr [address] KALANI Camacho PCP - General Internal Medicine 04/21/24 documented as of this encounter
--- OUTSIDE RECORDS SUMMARY | 2024-06-06 14:52 | XMS_ITS | Encounter Summary ---
Author Organization [employer] Address [address] [place] [address] Care Team Providers Care Health Economist Name Role Phone Augustine Dan MD Primary Care Provider [phone] Encounter Details Date Type Department Care Team (Late st Contact Info) Description 01/20/[address] [facility] - Main Lab [address] [place] [address] Augustine Dan MD [address] [place] [address] [address] KALANI Camacho Urinary tract infection, [...] reflex microscopic (01/20/2024 6:00 PM EST) Specific [place] Urine 1.029 1.003 - 1.030 LAB URINALYSIS - AUTOMATED METHOD 01/20/2024 8:20 PM EST [facility] pH, Urine 5.5 5.0 - 8.0 pH LAB URINALYSIS - AUTOMATED METHOD 01/20/2024 8:20 PM [facility] Leukocytes, Urine Negative Negative LAB URINALYSIS - AUTOMATED METHOD 01/20/2024 8:20 PM [facility] Nitrite, Urine Negative Negative LAB URINALYSIS - AUTOMATED METHOD 01/20/2024 8:20 PM [facility] Protein, Urine Negative <=Trace mg/dL LAB URINALYSIS - AUTOMATED METHOD 01/20/2024 8:20 PM [facility] Glucose, Urine Negative Negative mg/dL LAB URINALYSIS - AUTOMATED METHOD 01/20/2024 8:20 PM [facility] Ketones, Urine 15(A) Negative mg/dL LAB URINALYSIS - AUTOMATED METHOD 01/20/2024 8:20 PM [facility] Urobilinogen, Urine 0.2 0.2 - 1.0 mg/dL LAB URINALYSIS - AUTOMATED METHOD 01/20/2024 8:20 PM [facility] Bilirubin, Urine Negative Negative LAB URINALYSIS - AUTOMATED METHOD 01/20/2024 8:20 PM [facility] Blood, Urine Negative Negative LAB URINALYSIS - AUTOMATED METHOD 01/20/2024 8:20 PM [facility] Urine Urine specimen obtained by clean catch procedure / Unknown 01/20/2024 6:00 PM EST 01/20/2024 8:17 PM EST us Augustine Dan MD LAB URINE ORDERABLES Final Resul t [facility] [address] [place] [address], * Culture urine (01/20/2024 6:00 PM EST) Culture, Urine No growth 01/21/2024 1:22 PM EST [facility] Urine Urine specimen obtained by clean catch procedure / Unknown 01/20/2024 6:00 PM EST 01/20/2024 8:17 PM EST us Augustine Dan MD LAB MICROBIOLOGY - GENERAL ORDER KETTY Final Result [facility] ([facility]) [facility] [address] [place] [address], documented in this encounter Visit Diagnoses Diagnosis Urinary tract infection, site not specified documented in this encounter Care Teams Health Economist Relationship Specialty Start Date End Date Augustine Dan MD [address] [place] [address] [address] [place], [place] PCP - General Internal Medicine 04/21/24 documented as of this encounter
--- OUTSIDE RECORDS SUMMARY | 2024-06-06 14:52 | XMS_ITS | Encounter Summary ---
Author Organization [facility] Address [address] [place] [address] Care Team Providers Care Blindstitch Hemmer Name Role Phone Augustine Dan MD Primary Care Provider [phone] Encounter Details Date Type Department Care Team (Late st Contact Info) Description 01/25/2024 Lab Requisition [facility] - Main Lab [address] [place] [address] Augustine Dan MD [address] [place] [address] [address] KALANI Camacho Other joint terminal attack controller (current) drug therapy Social History Tobacco Use [...] AMMONIA Routine 01/25/2024 6:10 AM EST Other retirement (current) drug therapy VALPROIC ACID LEVEL, TOTAL Routine 01/25/2024 6:10 AM EST Other joint terminal attack controller (current) drug therapy documented in this encounter Results * Valproic acid level, total (01/25/2024 6:10 AM EST) Valproic Acid, Total 82 50 - 100 mcg/mL LAB CHEMISTRY METHOD 01/25/2024 7:35 AM EST [facility] [place] [facility] Blood Venous blood specimen / Unknown 01/25/2024 6:10 AM EST 01/25/2024 6:49 AM EST us Augustine Dan MD LAB BLOOD ORDERABLES Final Resul t [facility] [address] [place] [address], [place] [phone] * Ammonia (01/25/2024 6:10 AM EST) Ammonia 22 11 - 35 mcmol/L LAB CHEMISTRY METHOD 01/25/2024 7:28 AM EST [facility] Blood Venous blood specimen / Unknown 01/25/2024 6:10 AM EST 01/25/2024 6:49 AM EST us Augustine Dan MD LAB BLOOD ORDERABLES Final Resul t [facility] [address] [place] [address], [place] [phone] documented in this encounter Visit Diagnoses Diagnosis Other retirement (current) drug therapy documented in this encounter Care Teams Blindstitch Hemmer Relationship Specialty Start Date End Date Augustine Dan MD [address] [place] [address] [address] [place] PCP - General Internal Medicine 04/21/24 documented as of this encounter
--- OUTSIDE RECORDS SUMMARY | 2024-06-06 14:52 | XMS_ITS | Encounter Summary ---
Author Organization [employer] Address [address] [place] [address] Care Team Providers Care Legal Biller Name Role Phone Augustine Dan MD Primary Care Provider [phone] Encounter Details Date Type Department Care Team (Late st Contact Info) Description 05/21/2024 Lab Requisition [facility] - Main Lab [address] [place] [address] Augustine Dan MD [address] [place] [address] [address] KALANI Camacho Major depressive disorder, [...] Diagnosis Comments CBC WITH AUTO DIFFERENTIAL Routine 05/21/2024 6:15 AM EDT Major depressive disorder, recurrent, unspecified (CMS/HCC V24) CBC AND DIFFERENTIAL Routine 05/21/2024 6:15 AM EDT Major depressive disorder, recurrent, unspecified (CMS/HCC V24) documented in this encounter Results * (ABNORMAL) CBC auto differential (05/21/2024 6:15 AM EDT) WBC 5.4 4.8 - 10.8 K/[facility] LAB HEMETOLOGY METHOD 05/21/2024 7:48 AM EDT [facility] RBC 4.60 4.50 - 5.50 M/[facility] LAB HEMETOLOGY METHOD 05/21/2024 7:48 AM EDT [facility] Hemoglobin 14.3 13.5 - 17.5 g/dL LAB HEMETOLOGY METHOD 05/21/2024 7:48 AM [facility] Hematocrit 44.7 42.0 - 54.0 % LAB HEMETOLOGY METHOD 05/21/2024 7:48 AM [facility] MCV 97.8 79.0 - 98.0 FL LAB HEMETOLOGY METHOD 05/21/2024 7:48 AM [facility] MCH 31.3 27.0 - 32.0 pcg LAB HEMETOLOGY METHOD 05/21/2024 7:48 AM [facility] MCHC 32.0 32.0 - 37.0 g/dL LAB HEMETOLOGY METHOD 05/21/2024 7:48 AM [facility] RDW 14.2 11.0 - 15.0 % LAB HEMETOLOGY METHOD 05/21/2024 7:48 AM [facility] Platelets 114(L) 130 - 400 K/mcL LAB HEMETOLOGY METHOD 05/21/2024 7:48 AM [facility] MPV 11.9(H) 7.0 - 11.0 FL LAB HEMETOLOGY METHOD 05/21/2024 7:48 AM [facility] NRBC 0.0 <1.0 % LAB HEMETOLOGY METHOD 05/21/2024 7:48 AM [facility] NRBC Absolute 0.00 <0.10 K/mcL LAB HEMETOLOGY METHOD 05/21/2024 7:48 AM [facility] Neutrophils Relative 36.1 % LAB HEMETOLOGY METHOD 05/21/2024 7:48 AM [facility] Lymphocytes Relative 43.4 % LAB HEMETOLOGY METHOD 05/21/2024 7:48 AM [facility] Monocytes Relative 10.7 % LAB HEMETOLOGY METHOD 05/21/2024 7:48 AM EDT [facility] Eosinophils Relative 8.9 % LAB HEMETOLOGY METHOD 05/21/2024 7:48 AM EDT [facility] Basophils Relative 0.7 % LAB HEMETOLOGY METHOD 05/21/2024 7:48 AM EDT [facility] Immature Granulocytes Relative 0.2 % LAB HEMETOLOGY METHOD 05/21/2024 7:48 AM EDT [facility] Neutrophils Absolute 1.95 1.50 - 7.00 K/mcL LAB HEMETOLOGY METHOD 05/21/2024 7:48 AM EDT [facility] Lymphocytes Absolute 2.35 1.00 - 5.00 K/mcL LAB HEMETOLOGY METHOD 05/21/2024 7:48 AM EDT [facility] Monocytes Absolute 0.58 0.20 - 1.00 K/mcL LAB HEMETOLOGY METHOD 05/21/2024 7:48 AM EDT [facility] Eosinophils Absolute 0.48 0.00 - 0.50 K/mcL LAB HEMETOLOGY METHOD 05/21/2024 7:48 AM EDT [facility] Basophils Absolute 0.04 0.00 - 0.20 K/mcL LAB HEMETOLOGY METHOD 05/21/2024 7:48 AM EDT [facility] Immature Granulocytes Absolute 0.01 0.00 - 0.03 K/mcL LAB HEMETOLOGY METHOD 05/21/2024 7:48 AM EDT [facility] Blood Venous blood specimen / Unknown 05/21/2024 6:15 AM EDT 05/21/2024 7:29 AM EDT us Augustine Dan MD LAB BLOOD ORDERABLES Final Resul t [facility] [address] [place] [address], documented in this encounter Visit Diagnoses Diagnosis Major depressive disorder, recurrent, unspecified (CMS[facility]) documented in this encounter Care Teams Legal Biller Relationship Specialty Start Date End Date Augustine Dan MD [address] [place] [address] Dr [address] KALANI Camacho PCP - General Internal Medicine 04/21/24 documented as of this encounter
--- OUTSIDE RECORDS SUMMARY | 2024-06-06 14:52 | XMS_ITS | Encounter Summary ---
Author Organization [employer] Address [address] [place] [address] Care Team Providers Care Facility Maintenance Helper Name Role Phone Augustine Dan MD Primary Care Provider [phone] Encounter Details Date Type Department Care Team (Late st Contact Info) Description 02/20/2024 Lab Requisition [facility] - Main Lab [address] [facility] [place] [address] Augustine Dan MD [address] [place] [address] Dr [address] KALANI Camacho Major depressive [...] CBC auto differential (02/20/2024 6:28 AM EST) [facility] WBC 4.2(L) 4.8 - 10.8 K/mcL LAB HEMETOLOGY METHOD 02/20/2024 8:35 AM [facility] RBC 4.60 4.50 - 5.50 M/mcL LAB HEMETOLOGY METHOD 02/20/2024 8:35 AM [facility] Hemoglobin 13.9 13.5 - 17.5 g/dL LAB HEMETOLOGY METHOD 02/20/2024 8:35 AM [facility] Hematocrit 43.5 42.0 - 54.0 % LAB HEMETOLOGY METHOD 02/20/2024 8:35 AM [facility] MCV 94.8 79.0 - 98.0 FL LAB HEMETOLOGY METHOD 02/20/2024 8:35 AM [facility] MCH 30.3 27.0 - 32.0 pcg LAB HEMETOLOGY METHOD 02/20/2024 8:35 AM [facility] MCHC 32.0 32.0 - 37.0 g/dL LAB HEMETOLOGY METHOD 02/20/2024 8:35 AM [facility] RDW 13.7 11.0 - 15.0 % LAB HEMETOLOGY METHOD 02/20/2024 8:35 AM [facility] Platelets 76(L) 130 - 400 K/mcL LAB HEMETOLOGY METHOD 02/20/2024 8:35 AM [facility] Comment:reviewed by slide MPV 12.0(H) 7.0 - 11.0 FL LAB HEMETOLOGY METHOD 02/20/2024 8:35 AM [facility] NRBC 0.0 <1.0 % LAB HEMETOLOGY METHOD 02/20/2024 8:35 AM [facility] NRBC Absolute 0.00 <0.10 K/mcL LAB HEMETOLOGY METHOD 02/20/2024 8:35 AM [facility] Neutrophils Relative 42.7 % LAB HEMETOLOGY METHOD 02/20/2024 8:35 AM [facility] Lymphocytes Relative 38.4 % LAB HEMETOLOGY METHOD 02/20/2024 8:35 AM [facility] Monocytes Relative 12.1 % LAB HEMETOLOGY METHOD 02/20/2024 8:35 AM [facility] Eosinophils Relative 5.9 % LAB HEMETOLOGY METHOD 02/20/2024 8:35 AM [facility] Basophils Relative 0.7 % LAB HEMETOLOGY METHOD 02/20/2024 8:35 AM [facility] Immature Granulocytes Relative 0.2 % LAB HEMETOLOGY METHOD 02/20/2024 8:35 AM [facility] Neutrophils Absolute 1.80 1.50 - 7.00 K/[facility] LAB HEMETOLOGY METHOD 02/20/2024 8:35 AM [facility] Lymphocytes Absolute 1.62 1.00 - 5.00 K/[facility] LAB HEMETOLOGY METHOD 02/20/2024 8:35 AM [facility] Monocytes Absolute 0.51 0.20 - 1.00 K/[facility] LAB HEMETOLOGY METHOD 02/20/2024 8:35 AM [facility] Eosinophils Absolute 0.25 0.00 - 0.50 K/[facility] LAB HEMETOLOGY METHOD 02/20/2024 8:35 AM [facility] Basophils Absolute 0.03 0.00 - 0.20 K/[facility] LAB HEMETOLOGY METHOD 02/20/2024 8:35 AM [facility] Immature Granulocytes Absolute 0.01 0.00 - 0.03 K/[facility] LAB HEMETOLOGY METHOD 02/20/2024 8:35 AM [facility] Blood Venous blood specimen / Unknown 02/20/2024 6:28 AM EST 02/20/2024 7:34 AM EST us Augustine Dan MD LAB BLOOD ORDERABLES Final Resul t Performing Organization Address [facility] de Phone Number [facility] [address] [place] [address], [place] [phone] * Thyroid stimulating hormone (02/20/2024 6:28 AM EST) [facility] TSH 3.34 0.40 - 4.00 mcIU/mL LAB CHEMISTRY METHOD 02/20/2024 8:25 AM EST [facility] Blood Venous blood specimen / Unknown 02/20/2024 6:28 AM EST 02/20/2024 7:34 AM EST us Augustine Dan MD LAB BLOOD ORDERABLES Final Resul t Performing Organization Address [facility] de Phone Number [facility] [address] [place] [address], [place] [phone] * Vitamin D 25 hydroxy (02/20/2024 6:28 AM EST) [facility] Vit D, 25-Hydroxy 51.1 30.0 - 80.0 ng/mL LAB CHEMISTRY METHOD 02/20/2024 8:25 AM EST [facility] Blood Venous blood specimen / Unknown 02/20/2024 6:28 AM EST 02/20/2024 7:34 AM EST us Augustine Dan MD LAB BLOOD ORDERABLES Final Resul t Performing Organization Address [facility] Co de Phone Number [facility] [address] [place] [address], [place] [phone] * (ABNORMAL) Comprehensive metabolic panel (02/20/2024 6:28 AM EST) [facility] Sodium 142 133 - 145 mmol/L LAB CHEMISTRY METHOD 02/20/2024 8:23 AM [facility] Potassium 3.5 3.5 - 5.5 mmol/L LAB CHEMISTRY METHOD 02/20/2024 8:23 AM [facility] Chloride 105 96 - 110 mmol/L LAB CHEMISTRY METHOD 02/20/2024 8:23 AM [facility] CO2 35(H) 21 - 32 mmol/L LAB CHEMISTRY METHOD 02/20/2024 8:23 AM [facility] Anion Gap 2(L) 3 - 11 LAB CHEMISTRY METHOD 02/20/2024 8:23 AM [facility] Glucose 81 70 - 100 mg/dL LAB CHEMISTRY METHOD 02/20/2024 8:23 AM [facility] BUN 22 5 - 25 mg/dL LAB CHEMISTRY METHOD 02/20/2024 8:23 AM [facility] Creatinine 0.87 0.70 - 1.30 mg/dL LAB CHEMISTRY METHOD 02/20/2024 8:23 AM [facility] eGFR 99 >=60 mL/min/1. 73m2 LAB CHEMISTRY METHOD 02/20/2024 8:23 AM [facility] Comment:Calculation based on the??Chronic Kidney Disease Epidemiology Collaboration (CKD-EPI) equation refit??without adjustment for race. BUN/Creatinine Ratio 25.3 LAB CHEMISTRY METHOD 02/20/2024 8:23 AM [facility] Calcium 8.6 8.5 - 10.5 mg/dL LAB CHEMISTRY METHOD 02/20/2024 8:23 AM [facility] AST (SGOT) 10 10 - 42 unit/L LAB CHEMISTRY METHOD 02/20/2024 8:23 AM [facility] ALT (SGPT) 12 10 - 60 unit/L LAB CHEMISTRY METHOD 02/20/2024 8:23 AM [facility] Alkaline Phosphatase 46 42 - 121 unit/L LAB CHEMISTRY METHOD 02/20/2024 8:23 AM EST [facility] Total Protein 6.0 6.0 - 8.0 g/dL LAB CHEMISTRY METHOD 02/20/2024 8:23 AM EST [facility] Albumin 3.3 3.2 - 5.0 g/dL LAB CHEMISTRY METHOD 02/20/2024 8:23 AM [facility] Total Bilirubin 0.6 0.0 - 1.4 mg/dL LAB CHEMISTRY METHOD 02/20/2024 8:23 AM EST [facility] Blood Venous blood specimen / Unknown 02/20/2024 6:28 AM EST 02/20/2024 7:34 AM EST us Augustine Dan MD LAB BLOOD ORDERABLES Final Resul t [facility] [address] [place] [address], documented in this encounter Visit Diagnoses Diagnosis Major depressive disorder, recurrent, unspecified (CMS/HCC V24) documented in this encounter Care Teams Facility Maintenance Helper Relationship Specialty Start Date End Date uAgustine Dan MD [address] [place] [address] Dr [address] McintoshKALANI PCP - General Internal Medicine 04/21/24 documented as of this encounter
--- OUTSIDE RECORDS SUMMARY | 2024-06-06 14:52 | XMS_ITS | Encounter Summary ---
Author Organization [employer] Address [address] [place] [address] Care Team Providers Care Rounding Machine Operator Name Role Phone Augustine Dan MD Primary Care Provider [phone] Encounter Details Date Type Department Care Team (Late st Contact Info) Description 02/05/2024 Lab Requisition [facility] - Main Lab [address] [facility] [place] [address] Augustine Dan MD [address] [place] [address] [address] KALANI Camacho Other exterminator helper termite (current) drug therapy Social History Tobacco Use [...] GOLD Routine 02/05/2024 6:20 AM EST Other assisted (current) drug therapy PREGABALIN Routine 02/05/2024 6:20 AM EST Other assisted (current) drug therapy LEVETIRACETAM LEVEL Routine 02/05/2024 6:20 AM EST Other assisted (current) drug therapy COMPLETE BLOOD COUNT Routine 02/05/2024 6:20 AM EST Other assisted (current) drug therapy AMMONIA Routine 02/05/2024 6:20 AM EST Other assisted (current) drug therapy VALPROIC ACID LEVEL, TOTAL Routine 02/05/2024 6:20 AM EST Other exterminator helper termite (current) drug therapy COMPREHENSIVE METABOLIC PANEL Routine 02/05/2024 6:20 AM EST Other assisted (current) drug therapy documented in this encounter Results * Valproic acid level, total (02/05/2024 6:20 AM EST) Valproic Acid, Total 92 50 - 100 mcg/mL LAB CHEMISTRY METHOD 02/05/2024 7:30 PM EST [facility] Blood Venous blood specimen / Unknown 02/05/2024 6:20 AM EST 02/05/2024 7:31 AM EST us Augustine Dan MD LAB BLOOD ORDERABLES Final Resul t Performing Organization Address [facility]/ZIP Co de Phone Number [facility] [address] [place] [address], [place] [phone] * SST tube (02/05/2024 6:20 AM EST) Extra Tube Hold for add-ons. 02/05/2024 9:01 AM EST [facility] Comment:Auto resulted. Blood Venous blood specimen / Unknown 02/05/2024 6:20 AM EST 02/05/2024 7:31 AM EST us Augustine Dan MD LAB BLOOD ORDERABLES Final Resul t Performing Organization Address [facility]/ZIP Co de Phone Number [facility] [address] [place] [address], [place] [phone] * Pregabalin (02/05/2024 6:20 AM EST) Pregabalin [...] 4:05 PM EST Performed at: ??01 - [employer] [address] [place] [address] ??[phone] Personal Consultant: Monique Buzz [facility], Phone: ??[phone] Augustine Dan MD LAB BLOOD ORDERABLES Final Resul t Performing Organization Address [facility]/ZIP Co de Phone Number [facility] * Levetiracetam level (02/05/2024 6:20 AM EST) Levetiracetam <1.0 3.0 - 60.0 ug/mL 02/11/2024 7:53 AM EST [facility] Comment: Steady state trough serum or plasma levels following doses of 1000 to 3000 mg/Day: ??3 to 37 ug/mL. The same dosage regimen will typically result in peak levels of 10 to 60 ug/mL, at approximately 1.5 hours post dose. If applicable, any drug confirmation testing reported here was developed and the performance characteristics determined by [facility]. This confirmation testing has not been cleared or approved by the FDA. The laboratory is regulated under CLIA as qualified to perform high-complexity testing. This test is used for patient testing purposes. It should not be regarded as investigational or for research. Test performed at [facility], [address] , [place], [place] ??[address] ? [phone] Alicia Mclain MD, PhD - Oncology Technician Blood Venous blood specimen / Unknown 02/05/2024 6:20 AM EST 02/05/2024 7:25 AM EST us Augustine Dan MD LAB BLOOD ORDERABLES Final Resul t Performing Organization Address [facility]/ZIP Co de Phone Number [facility] [address] [place] [address] * (ABNORMAL) Ammonia (02/05/2024 6:20 AM EST) Ammonia 39(H) 11 - 35 mcmol/L LAB CHEMISTRY METHOD 02/05/2024 7:[address] [facility] Blood Venous blood specimen / Unknown 02/05/2024 6:20 AM EST 02/05/2024 7:25 AM EST us Augustine Dan MD LAB BLOOD ORDERABLES Final Resul t [facility] [address] [place] [address], [place] [phone] * (ABNORMAL) Complete blood count (02/05/2024 6:20 AM EST) [facility] WBC 3.9(L) 4.8 - 10.8 K/mcL LAB HEMETOLOGY METHOD 02/05/2024 7:[address] [facility] RBC 4.90 4.50 - 5.50 M/mcL LAB HEMETOLOGY METHOD 02/05/2024 7:[address] [facility] Hemoglobin 14.8 13.5 - 17.5 g/dL LAB HEMETOLOGY METHOD 02/05/2024 7:[address] [facility] Hematocrit 44.4 42.0 - 54.0 % LAB HEMETOLOGY METHOD 02/05/2024 7:[address] [facility] MCV 91.2 79.0 - 98.0 FL LAB HEMETOLOGY METHOD 02/05/2024 7:[address] [facility] MCH 30.4 27.0 - 32.0 pcg LAB HEMETOLOGY METHOD 02/05/2024 7:[address] [facility] MCHC 33.3 32.0 - 37.0 g/dL LAB HEMETOLOGY METHOD 02/05/2024 7:[address] [facility] RDW 13.4 11.0 - 15.0 % LAB HEMETOLOGY METHOD 02/05/2024 7:52 AM EST [facility] Platelets 111(L) 130 - 400 K/mcL LAB HEMETOLOGY METHOD 02/05/2024 7:52 AM EST [facility] MPV 11.6(H) 7.0 - 11.0 FL LAB HEMETOLOGY METHOD 02/05/2024 7:52 AM EST [facility] NRBC 0.0 <1.0 % LAB HEMETOLOGY METHOD 02/05/2024 7:52 AM EST [facility] NRBC Absolute 0.00 <0.10 K/mcL LAB HEMETOLOGY METHOD 02/05/2024 7:[address] [facility] Blood Venous blood specimen / Unknown 02/05/2024 6:20 AM EST 02/05/2024 7:25 AM EST Augustine Dan MD LAB BLOOD ORDERABLES Final Resul t [facility] [address] [place] [address], * (ABNORMAL) Comprehensive metabolic panel (02/05/2024 6:20 AM EST) Sodium 138 133 - 145 mmol/L LAB CHEMISTRY METHOD 02/05/2024 8:[address] [facility] Potassium 4.0 3.5 - 5.5 mmol/L LAB CHEMISTRY METHOD 02/05/2024 8:[address] [facility] Chloride 103 96 - 110 mmol/L LAB CHEMISTRY METHOD 02/05/2024 8:[address] [facility] CO2 31 21 - 32 mmol/L LAB CHEMISTRY METHOD 02/05/2024 8:[address] [facility] Anion Gap 4 3 - 11 LAB CHEMISTRY METHOD 02/05/2024 8:[address] [facility] Glucose 85 70 - 100 mg/dL LAB CHEMISTRY METHOD 02/05/2024 8:[address] [facility] BUN 21 5 - 25 mg/dL LAB CHEMISTRY METHOD 02/05/2024 8:[address] [facility] Creatinine 0.84 0.70 - 1.30 mg/dL LAB CHEMISTRY METHOD 02/05/2024 8:[address] [facility] eGFR 100 >=60 mL/min/1. 73m2 LAB CHEMISTRY METHOD 02/05/2024 8:[address] [facility] Comment:Calculation based on the??Chronic Kidney Disease Epidemiology Collaboration (CKD-EPI) equation refit??without adjustment for race. BUN/Creatinine Ratio 25.0 LAB CHEMISTRY METHOD 02/05/2024 8:[address] [facility] Calcium 9.0 8.5 - 10.5 mg/dL LAB CHEMISTRY METHOD 02/05/2024 8:[address] [facility] AST (SGOT) 9(L) 10 - 42 unit/L LAB CHEMISTRY METHOD 02/05/2024 8:[address] [facility] Comment:Results verified by repeat testing ALT (SGPT) 14 10 - 60 unit/L LAB CHEMISTRY METHOD 02/05/2024 8:[address] [facility] Alkaline Phosphatase 49 42 - 121 unit/L LAB CHEMISTRY METHOD 02/05/2024 8:[address] [facility] Total Protein 7.0 6.0 - 8.0 g/dL LAB CHEMISTRY METHOD 02/05/2024 8:[address] [facility] Albumin 3.7 3.2 - 5.0 g/dL LAB CHEMISTRY METHOD 02/05/2024 8:[address] [facility] Total Bilirubin 0.7 0.0 - 1.4 mg/dL LAB CHEMISTRY METHOD 02/05/2024 8:[address] [facility] Blood Venous blood specimen / Unknown 02/05/2024 6:20 AM EST 02/05/2024 7:25 AM EST us Augusitne Dan MD LAB BLOOD ORDERABLES Final Resul t [facility] [address] [place] [address], documented in this encounter Visit Diagnoses Diagnosis Other exterminator helper termite (current) drug therapy documented in this encounter Care Teams Rounding Machine Operator Relationship Specialty Start Date End Date Augustine Dan MD [address] [place] [address] [address] [place], [place] PCP - General Internal Medicine 04/21/24 documented as of this encounter
--- OUTSIDE RECORDS SUMMARY | 2024-06-06 14:52 | XMS_ITS | Encounter Summary ---
Author Organization [employer] Address [address] [place] [address] Care Team Providers Care Ssds Mk 2 Advanced Operator Name Role Phone Augustine Dan MD Primary Care Provider [phone] Encounter Details Date Type Department Care Team (Late st Contact Info) Description 01/11/2024 Lab Requisition [facility] - Main Lab 299 [facility] [place] [address] Augustine Dan MD [address] [place] [address] [address] KALANI Camacho Other emt intermediate (current) drug therapy Social History Tobacco Use [...] COUNT Routine 01/11/2024 5:10 AM EST Other alf (current) drug therapy COMPREHENSIVE METABOLIC PANEL Routine 01/11/2024 5:10 AM EST Other alf (current) drug therapy documented in this encounter Results * (ABNORMAL) Comprehensive metabolic panel (01/11/2024 5:10 AM EST) Sodium 144 133 - 145 mmol/L LAB CHEMISTRY METHOD 01/11/2024 6:57 AM EST [facility] Potassium 3.8 3.5 - 5.5 mmol/L LAB CHEMISTRY METHOD 01/11/2024 6:57 AM EST [facility] Chloride 109 96 - 110 mmol/L LAB CHEMISTRY METHOD 01/11/2024 6:57 AM EST [facility] CO2 30 21 - 32 [...] Final Resul t [facility] [address] [place] [address], * (ABNORMAL) Complete blood count (01/11/2024 5:10 [...] LAB HEMETOLOGY METHOD 01/11/2024 6:52 AM EST [facility] Comment:reviewed by slide MPV 12.0(H) 7.0 - 11.0 FL LAB HEMETOLOGY METHOD 01/11/2024 6:52 AM EST [facility] NRBC 0.0 <1.0 % LAB HEMETOLOGY METHOD 01/11/2024 6:52 AM EST [facility] NRBC Absolute 0.00 <0.10 K/mcL LAB HEMETOLOGY METHOD 01/11/2024 6:52 AM EST [facility] Blood Venous blood specimen / Unknown 01/11/2024 5:10 AM EST 01/11/2024 6:11 AM EST us Augustine Dan MD LAB BLOOD ORDERABLES Final Resul t [facility] [address] [place] [address], [place] [phone] documented in this encounter Visit Diagnoses Diagnosis Other alf (current) drug therapy documented in this encounter Care Teams Ssds Mk 2 Advanced Operator Relationship Specialty Start Date End Date Augustine Dan MD [address] [place] [address] [address] KALANI Camacho PCP - General Internal Medicine 04/21/24 documented as of this encounter
--- OUTSIDE RECORDS SUMMARY | 2024-06-06 14:52 | XMS_ITS | Encounter Summary ---
Author Organization [employer] Address [address] [place] [address] Care Team Providers Care Lead Loader Name Role Phone Augustine Dan MD Primary Care Provider [phone] Encounter Details Date Type Department Care Team (Late st Contact Info) Description 01/21/2024 Lab Requisition [facility] - Main Lab [address] [place] [address] Augustine Dan MD [address] [place] [address] [address] KALANI Camacho Major depressive [...] AM EST) WBC 4.9 4.8 - 10.8 K/[facility] LAB HEMETOLOGY METHOD 01/21/2024 7:29 AM EST [facility] RBC 5.10 4.50 - 5.50 M/mcL LAB HEMETOLOGY METHOD 01/21/2024 7:29 AM [facility] Hemoglobin 15.5 13.5 - 17.5 g/dL LAB HEMETOLOGY METHOD 01/21/2024 7:29 AM [facility] Hematocrit 48.0 42.0 - 54.0 % LAB HEMETOLOGY METHOD 01/21/2024 7:29 AM [facility] MCV 93.9 79.0 - 98.0 FL LAB HEMETOLOGY METHOD 01/21/2024 7:29 AM [facility] MCH 30.3 27.0 - 32.0 pcg LAB HEMETOLOGY METHOD 01/21/2024 7:29 AM [facility] MCHC 32.3 32.0 - 37.0 g/dL LAB HEMETOLOGY METHOD 01/21/2024 7:29 AM [facility] RDW 13.5 11.0 - 15.0 % LAB HEMETOLOGY METHOD 01/21/2024 7:29 AM [facility] Platelets 118(L) 130 - 400 K/mcL LAB HEMETOLOGY METHOD 01/21/2024 7:29 AM [facility] MPV 11.3(H) 7.0 - 11.0 FL LAB HEMETOLOGY METHOD 01/21/2024 7:29 AM [facility] NRBC 0.0 <1.0 % LAB HEMETOLOGY METHOD 01/21/2024 7:29 AM [facility] NRBC Absolute 0.00 <0.10 K/mcL LAB HEMETOLOGY METHOD 01/21/2024 7:29 AM [facility] Neutrophils Relative 37.6 % LAB HEMETOLOGY METHOD 01/21/2024 7:29 AM [facility] Lymphocytes Relative 47.7 % LAB HEMETOLOGY METHOD 01/21/2024 7:29 AM [facility] Monocytes Relative 10.2 % LAB HEMETOLOGY METHOD 01/21/2024 7:29 AM [facility] Eosinophils Relative 3.7 % LAB HEMETOLOGY METHOD 01/21/2024 7:29 AM [facility] Basophils Relative 0.6 % LAB HEMETOLOGY METHOD 01/21/2024 7:29 AM [facility] Immature Granulocytes Relative 0.2 % LAB HEMETOLOGY METHOD 01/21/2024 7:29 AM [facility] Neutrophils Absolute 1.83 1.50 - 7.00 K/mcL LAB HEMETOLOGY METHOD 01/21/2024 7:29 AM [facility] Lymphocytes Absolute 2.33 1.00 - 5.00 K/mcL LAB HEMETOLOGY METHOD 01/21/2024 7:29 AM [facility] Monocytes Absolute 0.50 0.20 - 1.00 K/mcL LAB HEMETOLOGY METHOD 01/21/2024 7:29 AM [facility] Eosinophils Absolute 0.18 0.00 - 0.50 K/mcL LAB HEMETOLOGY METHOD 01/21/2024 7:29 AM [facility] Basophils Absolute 0.03 0.00 - 0.20 K/mcL LAB HEMETOLOGY METHOD 01/21/2024 7:29 AM EST [facility] Immature Granulocytes Absolute 0.01 0.00 - 0.03 K/mcL LAB HEMETOLOGY METHOD 01/21/2024 7:29 AM [facility] Blood Venous blood specimen / Unknown 01/21/2024 6:25 AM EST 01/21/2024 7:16 AM EST us Augustine Dan MD LAB BLOOD ORDERABLES Final Resul t [facility] [address] [place] [address], * Valproic acid level, total (01/21/2024 6:25 AM EST) Valproic Acid, Total 88 50 - 100 mcg/mL LAB CHEMISTRY METHOD 01/21/2024 7:34 AM EST [facility] Blood Venous blood specimen / Unknown 01/21/2024 6:25 AM EST 01/21/2024 7:16 AM EST us Augustine Dan MD LAB BLOOD ORDERABLES Final Resul t [facility] [address] [place] [address], [place] [phone] documented in this encounter Visit Diagnoses Diagnosis Major depressive disorder, recurrent, unspecified (CMS/HCC V24) documented in this encounter Care Teams Lead Loader Relationship Specialty Start Date End Date Augustine Dan MD [address] [place] [address] [address] [place], [place] PCP - General Internal Medicine 04/21/24 documented as of this encounter
--- OUTSIDE RECORDS SUMMARY | 2024-06-06 14:52 | XMS_ITS | Clinical Summary ---
Author Organization [address] [facility] Address [address] [place] [address] Phone Care Team Providers Care Developmental Training Counselor Name Role Phone Augustine Dan MD Primary Care Provider [phone] Encounters Date Type Department Care Team Description 05/21/2024 Lab Requisition [facility] Lab [address] [place] [address] Augustine Dan MD Major depressive disorder, recurrent, unspecified ([facility] V24) 04/21/2024 Lab Requisition [facility] Lab [address] [place] [address] Augustine Dan MD Major depressive disorder, recurrent, unspecified ([facility] V24) from Last 3 Months Social History [...] depressive disorder, recurrent, unspecified (CMS/HCC V24) CBC WITH AUTO DIFFERENTIAL Routine 04/21/2024 4:50 [...] EDT Major depressive disorder, recurrent, unspecified (CMS/HCC) from Last 3 Months Results * (ABNORMAL) CBC auto differential (05/21/2024 6:15 AM EDT) Only the most recent of2 resultswithin the time period is included. [facility] WBC 5.4 4.8 - 10.8 K/mcL LAB HEMETOLOGY METHOD 05/21/2024 7:48 AM [facility] LAB RBC 4.60 4.50 - 5.50 M/mcL LAB HEMETOLOGY METHOD 05/21/2024 7:48 AM [facility] LAB Hemoglobin 14.3 13.5 - 17.5 g/dL LAB HEMETOLOGY METHOD 05/21/2024 7:48 AM [facility] LAB Hematocrit 44.7 42.0 - 54.0 % LAB HEMETOLOGY METHOD 05/21/2024 7:48 AM [facility] LAB MCV 97.8 79.0 - 98.0 FL LAB HEMETOLOGY METHOD 05/21/2024 7:48 AM [facility] LAB MCH 31.3 27.0 - 32.0 pcg LAB HEMETOLOGY METHOD 05/21/2024 7:48 AM [facility] LAB MCHC 32.0 32.0 - 37.0 g/dL LAB HEMETOLOGY METHOD 05/21/2024 7:48 AM [facility] LAB RDW 14.2 11.0 - 15.0 % LAB HEMETOLOGY METHOD 05/21/2024 7:48 AM [facility] LAB Platelets 114(L) 130 - 400 K/mcL LAB HEMETOLOGY METHOD 05/21/2024 7:48 AM [facility] LAB MPV 11.9(H) 7.0 - 11.0 FL LAB HEMETOLOGY METHOD 05/21/2024 7:48 AM [facility] NRBC 0.0 <1.0 % LAB HEMETOLOGY METHOD 05/21/2024 7:48 AM [facility] LAB NRBC Absolute 0.00 <0.10 K/mcL LAB HEMETOLOGY METHOD 05/21/2024 7:48 AM [facility] Neutrophils Relative 36.1 % LAB HEMETOLOGY METHOD 05/21/2024 7:48 AM [facility] Lymphocytes Relative 43.4 % LAB HEMETOLOGY METHOD 05/21/2024 7:48 AM [facility] Monocytes Relative 10.7 % LAB HEMETOLOGY METHOD 05/21/2024 7:48 AM [facility] Eosinophils Relative 8.9 % LAB HEMETOLOGY METHOD 05/21/2024 7:48 AM [facility] Basophils Relative 0.7 % LAB HEMETOLOGY METHOD 05/21/2024 7:48 AM [facility] Immature Granulocytes Relative 0.2 % LAB HEMETOLOGY METHOD 05/21/2024 7:48 AM [facility] Neutrophils Absolute 1.95 1.50 - 7.00 K/mcL LAB HEMETOLOGY METHOD 05/21/2024 7:48 AM [facility] Lymphocytes Absolute 2.35 1.00 - 5.00 K/mcL LAB HEMETOLOGY METHOD 05/21/2024 7:48 AM [facility] Monocytes Absolute 0.58 0.20 - 1.00 K/mcL LAB HEMETOLOGY METHOD 05/21/2024 7:48 AM [facility] Eosinophils Absolute 0.48 0.00 - 0.50 K/mcL LAB HEMETOLOGY METHOD 05/21/2024 7:48 AM [facility] Basophils Absolute 0.04 0.00 - 0.20 K/mcL LAB HEMETOLOGY METHOD 05/21/2024 7:48 AM EDT [facility] Immature Granulocytes Absolute 0.01 0.00 - 0.03 K/mcL LAB HEMETOLOGY METHOD 05/21/2024 7:48 AM EDT [facility] Blood Venous blood specimen / Unknown 05/21/2024 6:15 AM EDT 05/21/2024 7:29 AM EDT us Augustine Dan MD LAB BLOOD ORDERABLES Final Resul t [facility] [address] [place] [address], [place] [phone] * Vitamin D 25 hydroxy (04/21/2024 4:50 AM EDT) Vit D, 25-Hydroxy 47.8 30.0 - 80.0 ng/mL LAB CHEMISTRY METHOD 04/21/2024 6:07 AM EDT [facility] Blood Venous blood specimen / Unknown 04/21/2024 4:50 AM EDT 04/21/2024 5:35 AM EDT us Augustine Dan MD LAB BLOOD ORDERABLES Final Resul t Performing Organization Address [facility]/ZIP Co de Phone Number [facility] [address] [place] [address], [place] [phone] * Thyroid stimulating hormone (04/21/2024 4:50 AM EDT) TSH 2.64 0.40 - 4.00 mcIU/mL LAB CHEMISTRY METHOD 04/21/2024 6:08 AM EDT [facility] Blood Venous blood specimen / Unknown 04/21/2024 4:50 AM EDT 04/21/2024 5:35 AM EDT us Augustine Dan MD LAB BLOOD ORDERABLES Final Resul t [facility] [address] [place] [address], * (ABNORMAL) Comprehensive metabolic panel (04/21/2024 4:50 AM EDT) Sodium 143 133 - 145 mmol/L LAB CHEMISTRY METHOD 04/21/2024 5:58 AM EDT [facility] Potassium 4.0 3.5 - 5.5 mmol/L LAB CHEMISTRY METHOD 04/21/2024 5:58 AM EDT [facility] Chloride 105 96 - [...] mg/dL LAB CHEMISTRY METHOD [facility] e[facility] 99 >=60 mL/min/1. 73m2 [...] LAB CHEMISTRY METHOD 04/21/2024 5:58 AM EDT [facility] ALT (SGPT) 11 10 - 60 unit/L LAB CHEMISTRY METHOD 04/21/2024 5:58 AM EDT [facility] Alkaline Phosphatase 43 42 - 121 unit/L LAB CHEMISTRY METHOD 04/21/2024 5:58 AM EDT [facility] Total Protein 6.3 6.0 - 8.0 g/dL LAB CHEMISTRY METHOD 04/21/2024 5:58 AM EDT [facility] Albumin 3.0(L) 3.2 - 5.0 g/dL LAB CHEMISTRY METHOD 04/21/2024 5:58 AM EDT [facility] Total Bilirubin 0.5 0.0 - 1.4 mg/dL LAB CHEMISTRY METHOD 04/21/2024 5:58 AM EDT [facility] Blood Venous blood specimen / Unknown 04/21/2024 4:50 AM EDT 04/21/2024 5:35 AM EDT Augustine Dan MD LAB BLOOD ORDERABLES Final Resul t [facility] [address] [place] [address], from Last 3 Months Insurance [place] - [place] Care Teams Developmental Training Counselor Relationship Specialty Start Date End Date Augustine Dan MD [address] [place] [address] [address] KALANI Camacho PCP - General Internal Medicine 04/21/24
--- OUTSIDE RECORDS SUMMARY | 2024-06-06 14:52 | XMS_ITS | Encounter Summary ---
Author Organization [facility] Address [address] [place] [address] Care Team Providers Care Sheet Folder Name Role Phone Augustine Dan MD Primary Care Provider [phone] Encounter Details Date Type Department Care Team (Late st Contact Info) Description 12/12/2023 Lab Requisition [facility] Lab [address] [place] [address] Augustine Dan MD [address] [place] [address] Dr [address] KALANI Camacho Major depressive [...] AM EST) WBC 4.9 4.8 - 10.8 K/[facility] LAB HEMETOLOGY METHOD 12/12/2023 6:58 AM EST [facility] RBC 4.70 4.50 - 5.50 M/mcL LAB HEMETOLOGY METHOD 12/12/2023 6:58 AM [facility] Hemoglobin 14.3 13.5 - 17.5 g/dL LAB HEMETOLOGY METHOD 12/12/2023 6:58 AM [facility] LAB Hematocrit 44.8 42.0 - 54.0 % LAB HEMETOLOGY METHOD 12/12/2023 6:58 AM [facility] LAB MCV 94.5 79.0 - 98.0 FL LAB HEMETOLOGY METHOD 12/12/2023 6:58 AM [facility] LAB MCH 30.2 27.0 - 32.0 pcg LAB HEMETOLOGY METHOD 12/12/2023 6:58 AM [facility] LAB MCHC 31.9(L) 32.0 - 37.0 g/dL LAB HEMETOLOGY METHOD 12/12/2023 6:58 AM [facility] LAB RDW 13.6 11.0 - 15.0 % LAB HEMETOLOGY METHOD 12/12/2023 6:58 AM [facility] LAB Platelets 101(L) 130 - 400 K/mcL LAB HEMETOLOGY METHOD 12/12/2023 6:58 AM [facility] LAB MPV 12.1(H) 7.0 - 11.0 FL LAB HEMETOLOGY METHOD 12/12/2023 6:58 AM [facility] LAB NRBC 0.0 <1.0 % LAB HEMETOLOGY METHOD 12/12/2023 6:58 AM [facility] LAB NRBC Absolute 0.00 <0.10 K/mcL LAB HEMETOLOGY METHOD 12/12/2023 6:58 AM [facility] LAB Neutrophils Relative 43.6 % LAB HEMETOLOGY METHOD 12/12/2023 6:58 AM [facility] Lymphocytes Relative 40.1 % LAB HEMETOLOGY METHOD 12/12/2023 6:58 AM [facility] Monocytes Relative 11.2 % LAB HEMETOLOGY METHOD 12/12/2023 6:58 AM [facility] Eosinophils Relative 4.3 % LAB HEMETOLOGY METHOD 12/12/2023 6:58 AM [facility] Basophils Relative 0.8 % LAB HEMETOLOGY METHOD 12/12/2023 6:58 AM [facility] LAB Immature Granulocytes Relative 0.0 % LAB HEMETOLOGY METHOD 12/12/2023 6:58 AM [facility] LAB Neutrophils Absolute 2.13 1.50 - 7.00 K/mcL LAB HEMETOLOGY METHOD 12/12/2023 6:58 AM [facility] LAB Lymphocytes Absolute 1.96 1.00 - 5.00 K/mcL LAB HEMETOLOGY METHOD 12/12/2023 6:58 AM [facility] Monocytes Absolute 0.55 0.20 - 1.00 K/mcL LAB HEMETOLOGY METHOD 12/12/2023 6:58 AM [facility] Eosinophils Absolute 0.21 0.00 - 0.50 K/mcL LAB HEMETOLOGY METHOD 12/12/2023 6:58 AM [facility] Basophils Absolute 0.04 0.00 - 0.20 K/mcL LAB HEMETOLOGY METHOD 12/12/2023 6:58 AM [facility] Immature Granulocytes Absolute 0.00 0.00 - 0.03 K/mcL LAB HEMETOLOGY METHOD 12/12/2023 6:58 AM [facility] Blood Venous blood specimen / Unknown 12/12/2023 5:05 AM EST 12/12/2023 6:26 AM EST us Augustine aDn MD LAB BLOOD ORDERABLES Final Resul t [facility] [address] [place] [address], [place] [phone] * Valproic acid level, total (12/12/2023 5:05 AM EST) Valproic Acid, Total 78 50 - 100 mcg/mL LAB CHEMISTRY METHOD 12/12/2023 7:01 AM EST [facility] LAB Blood Venous blood specimen / Unknown 12/12/2023 5:05 AM EST 12/12/2023 6:26 AM EST us Augustine Dan MD LAB BLOOD ORDERABLES Final Resul t [facility] [address] [place] [address], [place] [phone] documented in this encounter Visit Diagnoses Diagnosis Major depressive disorder, recurrent, unspecified (CMS/HCC V24) documented in this encounter Care Teams Sheet Folder Relationship Specialty Start Date End Date Augustine aDn MD [address] [place] [address] Dr [address] [place], [place] PCP - General Internal Medicine 04/21/24 documented as of this encounter
--- OUTSIDE RECORDS SUMMARY | 2024-06-06 14:52 | XMS_ITS | Encounter Summary ---
Author Organization [facility] Address [address] [place] [address] Care Team Providers Care Nurse Manager Name Role Phone Augustine Dan MD Primary Care Provider [phone] Encounter Details Date Type Department Care Team (Late st Contact Info) Description 02/08/2024 Lab Requisition [facility] - [facility] Lab [address] [place] [address] Augustine Dan MD [address] [place] [address] [address] KALANI Camacho Other watermaster (current) drug therapy Social History Tobacco Use [...] TOTAL Routine 02/08/2024 5:05 AM EST Other watermaster (current) drug therapy documented in this encounter Results * Valproic acid level, total (02/08/2024 5:05 AM EST) Valproic Acid, Total 80 50 - 100 mcg/mL LAB CHEMISTRY METHOD 02/08/2024 6:22 AM EST [facility] Blood Venous blood specimen / Unknown 02/08/2024 5:05 AM EST 02/08/2024 5:55 AM EST us Augustine Dan MD LAB BLOOD ORDERABLES Final Resul t [facility] [address] [place] [address], documented in this encounter Visit Diagnoses Diagnosis Other half-way (current) drug therapy documented in this encounter Care Teams Nurse Manager Relationship Specialty Start Date End Date Augustine Dan MD [address] [place] [address] Dr [address] KALANI Camacho PCP - General Internal Medicine 04/21/24 documented as of this encounter
--- OUTSIDE RECORDS SUMMARY | 2024-06-06 14:52 | XMS_ITS | Encounter Summary ---
Author Organization [facility] Address [address] [place] [address] Care Team Providers Care Overlock Waistline Joiner Name Role Phone Augustine Dan MD Primary Care Provider [phone] Encounter Details Date Type Department Care Team (Late st Contact Info) Description 01/14/2024 Lab Requisition [facility] Lab [address] [place] [address] Augustine Dan MD [address] [place] [address] [address] KALANI Camacho Malignant neuroleptic syndrome Social History Tobacco Use [...] LAB HEMETOLOGY METHOD 01/14/2024 7:46 PM EST [facility] LAB MPV 11.4(H) 7.0 - 11.0 FL LAB HEMETOLOGY METHOD 01/14/2024 7:46 PM EST [facility] LAB Blood Venous blood specimen / Unknown 01/14/2024 01/14/2024 6:53 PM EST us Augustine Dan MD LAB BLOOD ORDERABLES Final Resul t [facility] [address] [place] [address], documented in this encounter Visit Diagnoses Diagnosis Malignant neuroleptic syndrome Neuroleptic malignant syndrome documented in this encounter Care Teams Overlock Waistline Joiner Relationship Specialty Start Date End Date Augustine Dan MD [address] [place] [address] Dr [address] [place] PCP - General Internal Medicine 04/21/24 documented as of this encounter
[2024-06-06 15:14] LABS: Influenza A PCR NEGATIVE (Negative); Influenza B PCR NEGATIVE (Negative); Resp Syncy Virus RNA Qual PCR NEGATIVE (Negative); SARS COV2 PCR INHOUSE NEGATIVE (Negative)
[2024-06-06] MEDS: Lactated Ringers 1,000 ML 999 ML IV ×2 (16:02→17:51)
--- NOTE | 2024-06-06 16:03 | PC.NURSE ---
cooling blanket started at 1544
[2024-06-06 16:13] LABS: Valproate 76.2 mcg/mL (50.0-100.0)
[2024-06-06 16:15] LABS: Alanine Aminotransferase 11 U/L (0-40); Albumin Level 3.7 g/dL (3.5-5.0); Alkaline Phosphatase 39 U/L (39-117); Anion Gap 15 (12-20); Aspartate Amino Transferase 16 U/L (5-37); Bilirubin Direct 0.2 mg/dL (0.0-0.5); Bilirubin Total 0.5 mg/dL (0.0-1.0); Blood Urea Nitrogen 17 mg/dL (9-16); C Reactive Protein 0.62 mg/dL (< or = 0.50); Calcium 8.9 mg/dL (8.4-10.2); Carbon Dioxide 28 mmol/L (22-29); Chloride 107 mmol/L (96-108); Creatinine Clr Calc Pharmacy 100.4; Estimated Glomerular Filt Rate > 60; Glucose Random 109 mg/dL (60-115); Sodium 146 mmol/L (135-145); Total Protein 6.7 g/dL (6.5-8.0)
[2024-06-06 16:20] LABS: Troponin-I High Sensitivity < 2.7 ng/L (<3.5-35.0)
--- NOTE | 2024-06-06 17:30 | ECG_ITS ---
Test Reason : AFIB Blood Pressure : */* mmHG Vent. Rate : 84 BPM Atrial Rate : 97 BPM P-R Int : * ms QRS Dur : 68 ms QT Int : 388 ms P-R-T Axes : * -20 -30 degrees QTcB Int : 458 ms Atrial fibrillation Low voltage QRS Nonspecific ST abnormality Abnormal ECG When compared with ECG of 13-May-2024 16:10, Inverted T waves have replaced nonspecific T wave abnormality in Inferior leads Referred By: Flaquito Malave Electronically Signed By: Nilson Oliver
--- NOTE | 2024-06-06 18:38 | P.HPHOSP_ITS ---
History of Present Illness Date of Service: 06/06/24 Attending physician on admission: Garima Snyder Chief Complaint: Fever, vomiting Pt is a 59-year-old male with a PMH significant for?neuroleptic malignant syndrome due to omeprazole, intellectual delay, atrial fibrillation on Eliquis, HTN, seizure disorder, mood disorder, dysphagia, and long-term resident of [facility] who presents to the ED from [facility] for evaluation elevated temperature and BP after episode of vomiting. ?Staff at [facility] report pt had an episode of vomiting after eating lunch earlier this afternoon. Reportedly became very tremulous and elevated temperature of 100.7 degrees. Pt arrived to the ED with rigors and was noted to be febrile up to 104.6. pt was given Tylenol IV and placed in a cooling blanket for around 1 hour with good response. Pt is alert and oriented x3 and reports overall that he feels fine without any acute complaints. Denies shortness or breath or difficulty breathing. Denies cough. No chest pain/pressure, palpitations. Denies fever, chills, nausea, vomiting, abdominal pain. In the ED pt was febrile up to 104.6, tachycardic up to 130, tachypneic up to 28, hypoxic at 88% on 3 L NC, and with soft BP as low as 100/43. Labs were grossly unremarkable and around baseline for pt. No leukocytosis. Stable H&H. Chronic mild hyponatremia of 146, electrolytes otherwise WNL. Renal function baseline. Hepatic function WNL. Troponin negative. Valproic acid therapeutic. Tested negative for flu, COVID, RSV. CXR showed hazy opacity at right lung base concerning for atelectasis vs pneumonia vs pleural effusion. EKG demonstrated atrial flutter without evidence of significant ST elevations or depressions. Pt was treated in the ED with 3 L IVF, Tylenol IV, ceftriaxone, and metronidazole. Pt is admitted to the hospital for treatment and further evaluation of acute hypoxic respiratory failure in the setting of aspiration pneumonia with sepsis. Review of Systems 2 Review of Systems: Negative except for that which is stated in the HPI. COUNT INCLUDES THE [facility] Medical History Neurogenic bladder Constipation Resides in care home facility History of GI bleed Seizure disorder Urinary incontinence Osteoarthritis Rectal prolapse Cognitive impairment Hx of deep venous thrombosis Thrombocytopenia Bilateral cataracts Personal history of COVID-19 Diverticular disease Flexion contractures OCD (obsessive compulsive disorder) History of hemodialysis Depression Neuroleptic malignant syndrome Epilepsy Deformity of left hand Generalized anxiety disorder Major depressive disorder Mild cognitive impairment Hypertension Family History Sister Breast CA, Onset Age: 51 Ovarian ca, Onset Age: 55 Father Prostate CA, Onset Age: 70 Mother Colorectal cancer, Onset Age: 39 Kidney carcinoma, Onset Age: 67 Maternal Grandmother Colorectal cancer, Onset Age: 70 Maternal Aunt Colorectal cancer Surgical History History of incisional hernia repair (03/15/22) History of repair of rectocele Hx of appendectomy Hx of colonoscopy Social History Household Members: None Household Members Other:: lives at [facility] Housing: Assisted Living Facility Housing Other:: patient coming from [facility] Are you a primary day care home provider to a significant other at home: No Do you presently have visiting nurse or other home services: Yes Unable to assess alcohol history related to: Unable to respond Alcohol intake: never Comment: [facility] Patient Tobacco Use Status: Never used Tobacco e-Cigarette/Vaping Use: Never Used Second Hand Smoke Exposure: No Advance Directives: Yes Advance Directives on File: Yes Advance Directives Date on File: 11/21/19 Do you have a plan to hurt others: No Plan service: No Current occupational status: disabled Meds Allergies Allergy/AdvReac Type Severity Reaction Status Date / Time aripiprazole [From ABILIFY] Allergy Severe Involuntary Verified 06/06/24 14:18 Spasms droperidol [From INAPSINE] Allergy Severe Involuntary Verified 06/06/24 14:18 Spasms haloperidol [From HALDOL] Allergy Severe Involuntary Verified 06/06/24 14:18 Spasms prochlorperazine Allergy Severe Involuntary Verified 06/06/24 14:18 [From COMPAZINE] Spasms promethazine [From PHENERGAN] Allergy Severe Involuntary Verified 06/06/24 14:18 Spasms sulfamethoxazole Allergy Severe Anaphylaxis Verified 06/06/24 14:18 [From BACTRIM] trimethoprim [From BACTRIM] Allergy Severe Anaphylaxis Verified 06/06/24 14:18 Home Medications ?Medication ?Instructions ?Recorded ?Confirmed ?Last Taken ?Type diazepam 2 mg tablet 2 mg PO TID 11/17/19 06/06/24 03/15/22 History melatonin 1 mg tablet 1 mg PO BEDTIME 11/17/19 06/06/24 11/16/19 History acetaminophen 500 mg tablet 500 mg PO Q6H PRN FEVER/MILD PAIN 02/13/20 06/06/24 Unknown History cholecalciferol (vitamin D3) 25 50 mcg PO DAILY 02/13/20 06/06/24 Unknown History mcg (1,000 unit) tablet pregabalin 100 mg capsule 100 mg PO TID 02/13/20 06/06/24 03/15/22 History polyethylene glycol 3350 17 17 g PO BID 03/09/22 06/06/24 Unknown History gram/dose oral powder (Miralax) divalproex 500 mg tablet,extended 500 mg PO BID 04/20/22 06/06/24 Unknown History release 24 hr (Depakote ER) aluminum-mag hydroxide-simethicone 30 ml PO Q4H PRN HEARTBURN OR 05/11/22 06/06/24 Unknown History 200 mg-200 mg-20 mg/5 mL oral susp NAUSEA dextromethorphan-guaifenesin 10 10 ml PO Q4H PRN Cough/congestion 05/11/22 06/06/24 Unknown History mg-100 mg/5 mL oral syrup (Tussin DM) psyllium 1 packet PO BID 05/11/22 06/06/24 Unknown History divalproex 250 mg tablet,extended 250 mg PO BID 02/23/24 06/06/24 Unknown History release 24 hr (Depakote ER) metoprolol succinate 25 mg 25 mg PO BID 02/23/24 06/06/24 Unknown History tablet,extended release 24 hr midodrine 5 mg tablet 5 mg PO TID@0900,1400,1800 02/23/24 06/06/24 Unknown History nystatin 100,000 unit/gram topical 1 appl topical BID 02/23/24 06/06/24 Unknown History powder sennosides 8.6 mg-docusate sodium 1 tab-cap PO DAILY Constipation 02/23/24 06/06/24 Unknown History 50 mg tablet ondansetron 4 mg disintegrating 4 mg PO Q6H PRN NAUSEA, VOMITING 03/20/24 06/06/24 Unknown History tablet bisacodyl 10 mg rectal suppository 10 mg IN DAILY PRN Constipation 06/06/24 06/06/24 Unknown History lactulose 10 gram/15 mL oral 30 ml PO DAILY Constipation 06/06/24 06/06/24 Unknown History solution sodium phosphates 19 gram-7 118 ml IN DAILY PRN Constipation 06/06/24 06/06/24 Unknown History gram/118 mL enema (Fleet Enema) witch monica 20 % topical pads 1 pad topical NEEDED PRN 06/06/24 06/06/24 Unknown History Hemorrhoids on anus Physical Exam 2 Vital Signs and Narrative: Vital Signs: Last Vital Signs Temp 99.1 F 06/06/24 18:31 Pulse 77 06/06/24 17:52 Resp 16 06/06/24 17:52 BP 108/53 L 06/06/24 17:52 Pulse Ox 99 06/06/24 17:52 O2 Del Method Nasal Cannula 06/06/24 17:52 O2 Flow Rate 3 06/06/24 17:52 Oxygen Flow Rate 3 06/06/24 14:09 BMI result Body Mass Index 30.3 General: AOx3, no acute distress Resp: Expiratory rhonchi at right lung base CVS: S1, S2, RRR GI: +BS, NT, no distention Skin: Warm, dry Neuro: Cranial nerves II-XII grossly intact bilaterally. Motor grossly intact bilaterally. Minor whole-body resting tremors. Extremities: Non-pitting bilateral lower leg edema Psych: Pleasant, cooperative Results Labs 06/06/24 14:24 06/06/24 14:24 Labs: Laboratory Results - last 24 hr 06/06/24 06/06/24 14:24 14:35 MCV 95.5 MCH 30.9 MCHC 32.4 RDW 13.5 Plt Count 99 L MPV 11.2 Immature Gran % (Auto) 0.4 Neut % (Auto) 71.0 Lymph % (Auto) 18.8 L [place] % (Auto) 8.0 Eos % (Auto) 1.6 Baso % (Auto) 0.2 Lymph # (Auto) 0.9 L [place] # (Auto) 0.4 Eos # (Auto) 0.1 Baso # (Auto) 0.0 Abs Immat Gran (auto) 0.02 Absolute Neuts (auto) 3.4 Absolute Nucleated RBC 0.000 Nucleated RBC % (auto) 0.0 VBG pH 7.36 VBG pCO2 63 VBG pO2 51 VBG HCO3 36 H VBG O2 Saturation 78.0 VBG Base Excess 8.1 Anion Gap 15 Estim Creat Clear Calc 100.4 Estimated GFR > 60 Random Glucose 109 Lactic Acid 2.0 Calcium 8.9 Magnesium 2.0 Total Bilirubin 0.5 Direct Bilirubin 0.2 AST 16 ALT 11 Alkaline Phosphatase 39 C-Reactive Protein 0.62 H Total Protein 6.7 Albumin 3.7 Valproic Acid 76.2 Influenza Type A (PCR) NEGATIVE Influenza Type B (PCR) NEGATIVE RSV RNA Qual (PCR) NEGATIVE SARS-CoV-2 RNA (RT-PCR) NEGATIVE Imaging Radiologist's Impressions: Impressions Chest X-Ray 06/06/24 14:22 IMPRESSION: Low lung volumes. Hazy opacity at the right lung base which may represent atelectasis, pneumonia, or a small pleural effusion. Follow-up is recommended. Electronically signed by: Garett Garcia MD 06/06/2024 02:57 PM EDT RP Assessment and Plan (1) Aspiration pneumonia: Status: Acute (2) Acute respiratory failure with hypoxia: Status: Resolved Plan Pt is a 59-year-old male with a PMH significant for?neuroleptic malignant syndrome due to omeprazole, intellectual delay, atrial fibrillation on Eliquis, HTN, seizure disorder, mood disorder, dysphagia, and long-term resident of [facility] who presents to the ED from SNF for evaluation elevated temperature and BP after episode of vomiting. Pt is admitted to the hospital for treatment and further evaluation of acute hypoxic respiratory failure in the setting of aspiration pneumonia with sepsis. Acute hypoxic respiratory failure in the setting of aspiration pneumonia with sepsis Pt with episode of vomiting after lunch this afternoon CXR showing hazy opacity at right lung base, concerning for pneumonia, pt desatting to 88% on 3 L NC Pt meets sepsis criteria with fever, tachycardia, tachypnea; lactic acid WNL Pt given IVF and started on broad-spectrum antibiotics in the ED Treat with Unasyn, started 06/06/2024 Speech and swallow evaluation Titrate supplemental O2>92, wean as tolerated Chronic Hypernatremia Patient's sodium mildly elevated at 146, in line with previous No need for intervention at this time Follow up BMP Paroxysmal AFib Continue metoprolol and Eliquis Seizure disorder Continue Depakote Mood disorder Continue diazepam, pregabalin Hypotension Continue midodrine Full Code Attending:?Dr. Snyder DVT Prophylaxis: On Eliquis Pt will require a hospitalization of at least two nights for treatment of acute hypoxic respiratory failure in the setting of aspiration pneumonia with sepsis. Pt will require hospital level care for administration of IV antibiotics and supplemental oxygen with close monitoring of vitals. Quality Stroke Does the patient have a stroke diagnosis?: No VTE Prior VTE?: No VTE Risk Level:: Medical - moderate - high VTE Device Contraindication: Treatment Not Indicated VTE Drug Contraindication: N/A - Med Ordered
[2024-06-06 18:54] LABS: Appearance Urine Clear; Color Urine Yellow; Glucose Urine UA Negative (Negative); Leukocyte Esterase Urine Negative (Negative); Nitrite Urine Negative (Negative); PH 5.5 (5.0-9.0); UMIC TRIGGER UACC YES; Urine Blood Trace (Negative); Urine Ketones Negative (Negative); Urine Protein Negative (Neg-Trace)
[2024-06-06 18:56] LABS: Bacteria Urine None Seen (None Seen); Hyaline Casts Urine 0-2 /LPF (0-2); Squamous Epithelial Cell Urine 0-2 /HPF (0-2); WBC Urine 0-5 /HPF (0-5)
--- NOTE | 2024-06-06 19:14 | PHA.MEDREC ---
Addendum entered by Griffin Craft RPh 06/06/24 19:29: Reviewed by [facility] Original Note: Pharmacy Consult ? Medication Reconciliation Pharmacy has completed the medication reconciliation. Utilized med list from [facility].
--- NOTE | 2024-06-06 20:45 | PC.NURSE ---
pt to inpatient assignment via entertainment [employer] media correspondent on continuous telemetry monitoring
[2024-06-06] MEDS: diazePAM 2 MG TABLET PO (21:35)
[2024-06-06] MEDS: Psyllium seed 3.7 GM PACKET PO (21:35)
[2024-06-06] MEDS: polyethylene glycoL 3350 17 GM POWD.PACK PO (21:35)
[2024-06-06] MEDS: Divalproex Sodium ER 500 MG TAB.ER.24H PO (21:35)
[2024-06-06] MEDS: Apixaban 5 MG TABLET PO (21:35)
[2024-06-06] MEDS: Divalproex Sodium ER 250 MG TAB.ER.24H PO (21:35)
[2024-06-06] MEDS: Pregabalin 100 MG CAPSULE PO (21:35)
[2024-06-06] MEDS: Ampicillin Sodium/Sulbactam Na 3 GM VIAL IV (21:36)
[2024-06-06] MEDS: Midodrine HCl 5 MG TABLET PO (21:38)
[2024-06-06] MEDS: Metoprolol Succinate ER 25 MG TAB.ER.24H PO (21:46)
[2024-06-06] MEDS: 0.9 % Sodium Chloride Flush 3 ML SYRINGE IVFLUSH (23:53)
[2024-06-07] MEDS: Ampicillin Sodium/Sulbactam Na 3 GM VIAL IV ×4 (03:35→20:53)
[2024-06-07 03:44] VITALS: BP 107/62; PULSE 77; RESP 16; TEMP 37.1; O2SAT 97
[2024-06-07 07:12] VITALS: BP 103/59; PULSE 74; RESP 17; TEMP 37.3; O2SAT 94
[2024-06-07 08:07] LABS: Anion Gap 11 (12-20); Blood Urea Nitrogen 14 mg/dL (9-16); Calcium 8.4 mg/dL (8.4-10.2); Carbon Dioxide 33 mmol/L (22-29); Chloride 110 mmol/L (96-108); Creatinine Clr Calc Pharmacy 132.8; Estimated Glomerular Filt Rate > 60; Glucose Random 91 mg/dL (60-115); Potassium 4.3 mmol/L (3.3-5.1); Sodium 150 mmol/L (135-145)
--- NOTE | 2024-06-07 08:46 | MHC.CM.PN ---
Patient is a LTC Resident at [facility] and returning there, at time of dc, is the goal. CM has initiated and will follow for dc planning. HCP is Sister/Leann and Patient will need BLS transport at time of dc.
[2024-06-07] MEDS: diazePAM 2 MG TABLET PO ×3 (09:16→20:48)
[2024-06-07] MEDS: Metoprolol Succinate ER 25 MG TAB.ER.24H PO ×2 (09:16→20:48)
[2024-06-07] MEDS: Acetaminophen 325 MG TABLET 650 MG PO (09:16)
[2024-06-07] MEDS: Divalproex Sodium ER 500 MG TAB.ER.24H PO ×2 (09:16→20:47)
[2024-06-07] MEDS: Pregabalin 100 MG CAPSULE PO ×3 (09:16→20:48)
[2024-06-07] MEDS: Psyllium seed 3.7 GM PACKET PO ×2 (09:17→20:47)
[2024-06-07] MEDS: Lactulose 20 GM/30 ML SOLUTION PO (09:17)
[2024-06-07] MEDS: Divalproex Sodium ER 250 MG TAB.ER.24H PO ×2 (09:17→20:47)
[2024-06-07] MEDS: Cholecalciferol (Vitamin D3) 25 MCG TABLET 50 MCG PO (09:17)
[2024-06-07] MEDS: Sennosides/Docusate Sodium TABLET 1 TAB PO (09:17)
[2024-06-07] MEDS: polyethylene glycoL 3350 17 GM POWD.PACK PO ×2 (09:17→20:47)
[2024-06-07] MEDS: Apixaban 5 MG TABLET PO ×2 (09:17→20:48)
[2024-06-07] MEDS: 0.9 % Sodium Chloride Flush 3 ML SYRINGE IVFLUSH ×3 (09:18→20:48)
[2024-06-07] MEDS: Midodrine HCl 5 MG TABLET PO ×3 (09:31→18:26)
[2024-06-07 10:12] VITALS: TEMP 37.7
--- NOTE | 2024-06-07 12:09 | MHC.SLORD ---
Speech Language Pathology Order Status: Order received for Bedside Swallow, discussed with Dr. Dan who is familiar with patient from [facility], patient on appropriate diet, MD does not feel Swallow Eval indicated for this inpatient stay. Will D/C order.
--- NOTE | 2024-06-07 13:15 | HO.PM.IMPN ---
Subjective Subjective Date of Service: 06/07/24 Interval History: Containing was a low-grade fever. Notes improvement overall. No acute issues overnight Review of Systems Denies chest pain Denies shortness of breath Denies nausea vomiting diarrhea Denies fever chills Physical Exam Vital Signs: Vital Signs: Last Vital Signs Temp 100 F 06/07/24 10:12 Pulse 74 06/07/24 07:12 Resp 17 06/07/24 07:12 BP 103/59 L 06/07/24 07:12 Pulse Ox 94 06/07/24 07:12 O2 Del Method Nasal Cannula 06/07/24 07:12 O2 Flow Rate 2 06/07/24 07:12 Oxygen Flow Rate 3 06/06/24 14:09 BMI result Body Mass Index 30.7 Const: Other: Awake alert oriented x3 no acute distress Resp: Other: Diminished at bases with faint crackles right base Cardio: Other: Irregularly irregular; no S4; positive S1-S2; no S3 murmurs rubs or gallops GI: Other: Soft nontender nondistended normoactive bowel sounds Extrem: Other: No edema bilaterally Objective Data Active Medications Acetaminophen (Acetaminophen 325 Mg Tablet) 650 mg PO Q6H PRN PRN Reason: Pain, Mild 1-3,fever,headache Last Admin: 06/07/24 09:16 Dose: 650 mg Documented By: EVE Al Hydroxide/Mg Hydroxide (Magnesium Hydrox/Alum Hydrox 30 Ml Oral.Susp) 30 ml PO Q4H PRN PRN Reason: HEARTBURN OR NAUSEA Ampicillin Sodium/Sulbactam Sodium (Ampicillin Sodium/Sulbactam Na 3 Gm Vial) 3 gm IV Q6H [facility] Last Admin: 06/07/24 09:17 Dose: 3 gm Documented By: EVE Apixaban (Apixaban 5 Mg Tablet) 5 mg PO BID [facility] Last Admin: 06/07/24 09:17 Dose: 5 mg Documented By: EVE Bisacodyl (Bisacodyl 10 Mg Supp.Rect) 10 mg GA DAILY PRN PRN Reason: Constipation Diazepam (Diazepam 2 Mg Tablet) 2 mg PO TID [facility] Last Admin: 06/07/24 09:16 Dose: 2 mg Documented By: EVE Divalproex Sodium (Divalproex Sodium Er 250 Mg Tab.Er.24h) 250 mg PO BID [facility] Last Admin: 06/07/24 09:17 Dose: 250 mg Documented By: EVE Divalproex Sodium (Divalproex Sodium Er 500 Mg Tab.Er.24h) 500 mg PO BID [facility] Last Admin: 06/07/24 09:16 Dose: 500 mg Documented By: EVE Guaifenesin/Dextromethorphan (Guaifenesin Dm 100/10/5 Ml 5 Ml Syrup) 10 ml PO Q4H PRN PRN Reason: Cough/congestion Lactulose (Lactulose 20 Gm/30 Ml Solution) 20 gm PO DAILY [facility] Last Admin: 06/07/24 09:17 Dose: 20 gm Documented By: EVE Melatonin (Melatonin 3 Mg Tablet) 6 mg PO BEDTIME PRN PRN Reason: Insomnia Melatonin (Melatonin 3 Mg Tablet) 3 mg PO BEDTIME [facility] Metoprolol Succinate (Metoprolol Succinate Er 25 Mg Tab.Er.24h) 25 mg PO BID [facility]; Protocol Last Admin: 06/07/24 09:16 Dose: 25 mg Documented By: EVE Midodrine (Midodrine Hcl 5 Mg Tablet) 5 mg PO TID@0900,1400,1800 [facility] Last Admin: 06/07/24 09:31 Dose: 5 mg Documented By: EVE Ondansetron HCl (Ondansetron Hcl 4 Mg/2 Ml Vial) 4 mg IVPUSH Q8H PRN PRN Reason: Nausea and Vomiting Polyethylene Glycol (Polyethylene Glycol 3350 17 Gm Powd.Pack) 17 gm PO BID [facility] Last Admin: 06/07/24 09:17 Dose: 17 gm Documented By: EVE Pregabalin (Pregabalin 100 Mg Capsule) 100 mg PO TID [facility] Last Admin: 06/07/24 09:16 Dose: 100 mg Documented By: EVE Psyllium Hydrophilic Mucilloid (Psyllium Seed 3.7 Gm Packet) 3.7 gm PO BID [facility] Last Admin: 06/07/24 09:17 Dose: 3.7 gm Documented By: EVE Senna/Docusate Sodium (Sennosides/Docusate Sodium Tablet) 1 tab PO DAILY [facility] Last Admin: 06/07/24 09:17 Dose: 1 tab Documented By: EVE Sodium Biphosphate/Sodium Phosphate (Sodium Phosphate,[place]ow[place]-Dibasic 133 Ml Enema) 118 ml GA DAILY PRN PRN Reason: Constipation Sodium Chloride (0.9 % Sodium Chloride Flush 3 Ml Syringe) 3 ml IVFLUSH QSHIFT [facility] Last Admin: 06/07/24 09:18 Dose: 3 ml Documented By: EVE Vitamin D (Cholecalciferol (Vitamin D3) 25 Mcg Tablet) 50 mcg PO DAILY [facility] Last Admin: 06/07/24 09:17 Dose: 50 mcg Documented By: EVE Labs 06/06/24 14:24 06/07/24 06:51 Labs: Laboratory Results - last 24 hr 06/06/24 06/06/24 06/06/24 14:24 14:35 18:47 MCV 95.5 MCH 30.9 MCHC 32.4 RDW 13.5 Plt Count 99 L MPV 11.2 Immature Gran % (Auto) 0.4 Neut % (Auto) 71.0 Lymph % (Auto) 18.8 L [place] % (Auto) 8.0 Eos % (Auto) 1.6 Baso % (Auto) 0.2 Lymph # (Auto) 0.9 L [place] # (Auto) 0.4 Eos # (Auto) 0.1 Baso # (Auto) 0.0 Abs Immat Gran (auto) 0.02 Absolute Neuts (auto) 3.4 Absolute Nucleated RBC 0.000 Nucleated RBC % (auto) 0.0 Hold Purple Top VBG pH 7.36 VBG pCO2 63 VBG pO2 51 VBG HCO3 36 H VBG O2 Saturation 78.0 VBG Base Excess 8.1 Anion Gap 15 Estim Creat Clear Calc 100.4 Estimated GFR > 60 Random Glucose 109 Lactic Acid 2.0 Calcium 8.9 Magnesium 2.0 Total Bilirubin 0.5 Direct Bilirubin 0.2 AST 16 ALT 11 Alkaline Phosphatase 39 C-Reactive Protein 0.62 H Total Protein 6.7 Albumin 3.7 Hold Yellow Top Urine Color Yellow Urine Appearance Clear Urine pH 5.5 Ur Specific [place] 1.010 Urine Protein Negative Urine Glucose (UA) Negative Urine Ketones Negative Urine Blood Trace H Urine Nitrite Negative Ur Leukocyte Esterase Negative Urine RBC 3-5 H Urine WBC 0-5 Ur Squamous Epith Cells 0-2 Urine Bacteria None Seen Hyaline Casts 0-2 Valproic Acid 76.2 Influenza Type A (PCR) NEGATIVE Influenza Type B (PCR) NEGATIVE RSV RNA Qual (PCR) NEGATIVE SARS-CoV-2 RNA (RT-PCR) NEGATIVE 06/07/24 06/07/24 06:51 07:00 MCV MCH MCHC RDW Plt Count MPV Immature Gran % (Auto) Neut % (Auto) Lymph % (Auto) [place] % (Auto) Eos % (Auto) Baso % (Auto) Lymph # (Auto) [place] # (Auto) Eos # (Auto) Baso # (Auto) Abs Immat Gran (auto) Absolute Neuts (auto) Absolute Nucleated RBC Nucleated RBC % (auto) Hold Purple Top SEE NOTE VBG pH VBG pCO2 VBG pO2 VBG HCO3 VBG O2 Saturation VBG Base Excess Anion Gap 11 L Estim Creat Clear Calc 132.8 Estimated GFR > 60 Random Glucose 91 Lactic Acid Calcium 8.4 Magnesium Total Bilirubin Direct Bilirubin AST ALT Alkaline Phosphatase C-Reactive Protein Total Protein Albumin Hold Yellow Top See Note Urine Color Urine Appearance Urine pH Ur Specific [place] Urine Protein Urine Glucose (UA) Urine Ketones Urine Blood Urine Nitrite Ur Leukocyte Esterase Urine RBC Urine WBC Ur Squamous Epith Cells Urine Bacteria Hyaline Casts Valproic Acid Influenza Type A (PCR) Influenza Type B (PCR) RSV RNA Qual (PCR) SARS-CoV-2 RNA (RT-PCR) Assessment and Plan (1) Aspiration pneumonia: Status: Acute Plan Pt is a 59-year-old male with a PMH significant for?neuroleptic malignant syndrome due to omeprazole, intellectual delay, atrial fibrillation on Eliquis, HTN, seizure disorder, mood disorder, dysphagia, and long-term resident of [facility] who presents to the ED from SNF for evaluation elevated temperature and BP after episode of vomiting. Pt is admitted to the hospital for treatment and further evaluation of acute hypoxic respiratory failure in the setting of aspiration pneumonia with sepsis. 1.Acute hypoxic respiratory failure in the setting of aspiration pneumonia with sepsis(resolved) -Unasyn(2) -methylprednisolone pulse dose -Titrate supplemental O2>92, wean as tolerated 2.Chronic Hypernatremia -at baseline -follow renals/divalents 3.Paroxysmal AFib -acceptable rate control -continue Eliquis 4.Seizure disorder -stable and well compensated Full Code Eliquis Patient requires ongoing hospitalization for IV antibiotics to treat aspiration pneumonia Quality Stroke Does the patient have a stroke diagnosis?: No VTE Prior VTE?: No VTE Risk Level:: Medical - moderate - high VTE Device Contraindication: Treatment Not Indicated VTE Drug Contraindication: N/A - Med Ordered
[2024-06-07] MEDS: methylPREDNISolone Sod Succ 125 MG/2 ML VIAL 60 MG IVPUSH ×2 (14:01→20:47)
[2024-06-07 15:27] VITALS: BP 99/56; PULSE 76; RESP 18; TEMP 36.4; O2SAT 96
--- NOTE | 2024-06-07 18:32 | PC.NURSE ---
Pt having jerky tremors, starring and confusion. Dr. Dan notified. Pt's sister at bedside.
--- NOTE | 2024-06-07 18:47 | PC.NURSE ---
[place] removed @ 1330. Incontinent large amount urine @ 1630.
[2024-06-07 19:56] VITALS: BP 125/67; PULSE 74; RESP 16; TEMP 36.4; O2SAT 92
[2024-06-07] MEDS: Melatonin 3 MG TABLET PO (20:48)
[2024-06-08] VITALS (7 sets, daily range): BP systolic 97–119; BP diastolic 54–71; PULSE 57–73; RESP 16–17; TEMP 36.7–36.9; O2SAT 92–95
[2024-06-08] MEDS: Ampicillin Sodium/Sulbactam Na 3 GM VIAL IV ×2 (03:32→08:41)
[2024-06-08] MEDS: methylPREDNISolone Sod Succ 125 MG/2 ML VIAL 60 MG IVPUSH (03:32)
[2024-06-08] MEDS: Cholecalciferol (Vitamin D3) 25 MCG TABLET 50 MCG PO (08:41)
[2024-06-08] MEDS: Divalproex Sodium ER 250 MG TAB.ER.24H PO ×2 (08:41→20:43)
[2024-06-08] MEDS: predniSONE 20 MG TABLET PO (08:41)
[2024-06-08] MEDS: Sennosides/Docusate Sodium TABLET 1 TAB PO (08:41)
[2024-06-08] MEDS: Metoprolol Succinate ER 25 MG TAB.ER.24H PO ×2 (08:41→20:43)
[2024-06-08] MEDS: Psyllium seed 3.7 GM PACKET PO (08:41)
[2024-06-08] MEDS: Pregabalin 100 MG CAPSULE PO ×3 (08:41→20:43)
[2024-06-08] MEDS: diazePAM 2 MG TABLET PO ×3 (08:42→20:42)
[2024-06-08] MEDS: Divalproex Sodium ER 500 MG TAB.ER.24H PO ×2 (08:42→20:42)
[2024-06-08] MEDS: 0.9 % Sodium Chloride Flush 3 ML SYRINGE IVFLUSH (08:42)
[2024-06-08] MEDS: Apixaban 5 MG TABLET PO ×2 (08:42→20:43)
[2024-06-08] MEDS: Midodrine HCl 5 MG TABLET PO ×3 (08:43→16:41)
--- NOTE | 2024-06-08 10:54 | P.PNIM_ITS ---
Subjective Subjective Date of Service: 06/08/24 Interval History: Follow-up on aspiration pneumonia Still on oxygen at 2 L, and desat with ambulation Physical Exam 2 Vital Signs: Vital Signs: Last Vital Signs Temp 98.1 F 06/08/24 07:40 Pulse 65 06/08/24 08:41 Resp 17 06/08/24 07:40 BP 119/71 06/08/24 08:41 Pulse Ox 93 06/08/24 07:40 O2 Del Method Nasal Cannula 06/08/24 07:40 O2 Flow Rate 2 06/08/24 07:40 Oxygen Flow Rate 3 06/06/24 14:09 BMI result Body Mass Index 30.7 Const: Other: General: AO X 2, no acute distress Resp: CTA bilateral CVS: S1,S2,RRR GI: +BS, NT, no distention Skin: No rash Neuro: motor grossly intact Psych: appropriate affect Objective Data Active Medications Acetaminophen (Acetaminophen 325 Mg Tablet) 650 mg PO Q6H PRN PRN Reason: Pain, Mild 1-3,fever,headache Last Admin: 06/07/24 09:16 Dose: 650 mg Documented By: EVE Al Hydroxide/Mg Hydroxide (Magnesium Hydrox/Alum Hydrox 30 Ml Oral.Susp) 30 ml PO Q4H PRN PRN Reason: HEARTBURN OR NAUSEA Ampicillin Sodium/Sulbactam Sodium (Ampicillin Sodium/Sulbactam Na 3 Gm Vial) 3 gm IV Q6H [facility] Last Admin: 06/08/24 08:41 Dose: 3 gm Documented By: HEATHER Apixaban (Apixaban 5 Mg Tablet) 5 mg PO BID [facility] Last Admin: 06/08/24 08:42 Dose: 5 mg Documented By: HEATHER Bisacodyl (Bisacodyl 10 Mg Supp.Rect) 10 mg [place] DAILY PRN PRN Reason: Constipation Diazepam (Diazepam 2 Mg Tablet) 2 mg PO TID [facility] Last Admin: 06/08/24 08:42 Dose: 2 mg Documented By: HEATHER Divalproex Sodium (Divalproex Sodium Er 250 Mg Tab.Er.24h) 250 mg PO BID [facility] Last Admin: 06/08/24 08:41 Dose: 250 mg Documented By: HEATHER Divalproex Sodium (Divalproex Sodium Er 500 Mg Tab.Er.24h) 500 mg PO BID [facility] Last Admin: 06/08/24 08:42 Dose: 500 mg Documented By: HEATHER Guaifenesin/Dextromethorphan (Guaifenesin Dm 100/10/5 Ml 5 Ml Syrup) 10 ml PO Q4H PRN PRN Reason: Cough/congestion Lactulose (Lactulose 20 Gm/30 Ml Solution) 20 gm PO DAILY [facility] Last Admin: 06/08/24 09:11 Dose: Not Given Documented By: HEATHER Non-Admin Reason: Patient Refused Melatonin (Melatonin 3 Mg Tablet) 6 mg PO BEDTIME PRN PRN Reason: Insomnia Melatonin (Melatonin 3 Mg Tablet) 3 mg PO BEDTIME [facility] Last Admin: 06/07/24 20:48 Dose: 3 mg Documented By: FELICIA Metoprolol Succinate (Metoprolol Succinate Er 25 Mg Tab.Er.24h) 25 mg PO BID [facility]; Protocol Last Admin: 06/08/24 08:41 Dose: 25 mg Documented By: HEATHER Midodrine (Midodrine Hcl 5 Mg Tablet) 5 mg PO TID@0900,1400,1800 [facility] Last Admin: 06/08/24 08:43 Dose: 5 mg Documented By: HEATHER Ondansetron HCl (Ondansetron Hcl 4 Mg/2 Ml Vial) 4 mg IVPUSH Q8H PRN PRN Reason: Nausea and Vomiting Polyethylene Glycol (Polyethylene Glycol 3350 17 Gm Powd.Pack) 17 gm PO BID [facility] Last Admin: 06/08/24 09:11 Dose: Not Given Documented By: HEATHER Non-Admin Reason: Patient Refused Prednisone (Prednisone 20 Mg Tablet) 20 mg PO DAILY [facility] Last Admin: 06/08/24 08:41 Dose: 20 mg Documented By: HEATHER Pregabalin (Pregabalin 100 Mg Capsule) 100 mg PO TID [facility] Last Admin: 06/08/24 08:41 Dose: 100 mg Documented By: HEATHER Psyllium Hydrophilic Mucilloid (Psyllium Seed 3.7 Gm Packet) 3.7 gm PO BID [facility] Last Admin: 06/08/24 08:41 Dose: 3.7 gm Documented By: HEATHER Senna/Docusate Sodium (Sennosides/Docusate Sodium Tablet) 1 tab PO DAILY [facility] Last Admin: 06/08/24 08:41 Dose: 1 tab Documented By: HEATHER Sodium Biphosphate/Sodium Phosphate (Sodium Phosphate,[place]-Dibasic 133 Ml Enema) 118 ml [place] DAILY PRN PRN Reason: Constipation Sodium Chloride (0.9 % Sodium Chloride Flush 3 Ml Syringe) 3 ml IVFLUSH QSHIFT [facility] Last Admin: 06/08/24 08:42 Dose: 3 ml Documented By: HEATHER Vitamin D (Cholecalciferol (Vitamin D3) 25 Mcg Tablet) 50 mcg PO DAILY [facility] Last Admin: 06/08/24 08:41 Dose: 50 mcg Documented By: HEATHER Labs 06/06/24 14:24 06/07/24 06:51 Microbiology Microbiology Results: Microbiology 06/06/24 14:24 Blood Culture - Preliminary Blood - Venous No growth after 24 hours. 06/06/24 14:24 Blood Culture - Preliminary Blood - Venous No growth after 24 hours. Assessment and Plan (1) Aspiration pneumonia: Status: Acute Plan Pt is a 59-year-old male with a PMH significant for?neuroleptic malignant syndrome due to omeprazole, intellectual delay, atrial fibrillation on Eliquis, HTN, seizure disorder, mood disorder, dysphagia, and long-term resident of [facility] who presents to the ED from SNF for evaluation elevated temperature and BP after episode of vomiting. Pt is admitted to the hospital for treatment and further evaluation of acute hypoxic respiratory failure in the setting of aspiration pneumonia with sepsis. Acute hypoxic respiratory failure in the setting of aspiration pneumonia with sepsis(resolved) -Unasyn(2) -methylprednisolone pulse dose--> PO prednisone -Titrate supplemental O2>92, wean as tolerated Chronic Hypernatremia -check today and fluid if going up -follow renals/divalents Paroxysmal AFib -acceptable rate control -continue Eliquis Seizure disorder -stable and well compensated Full Code Eliquis Patient requires ongoing hospitalization for IV antibiotics to treat aspiration pneumonia discussed with sister Lazaro Stroke Does the patient have a stroke diagnosis?: No VTE Prior VTE?: No VTE Risk Level:: Medical - moderate - high VTE Device Contraindication: Treatment Not Indicated VTE Drug Contraindication: N/A - Med Ordered
[2024-06-08] MEDS: Dextrose 5 % 1,000 ML 75 ML IVCONT (11:23)
[2024-06-08 11:57] LABS: Anion Gap 13 (12-20); Blood Urea Nitrogen 20 mg/dL (9-16); Calcium 8.7 mg/dL (8.4-10.2); Carbon Dioxide 32 mmol/L (22-29); Chloride 105 mmol/L (96-108); Creatinine Clr Calc Pharmacy 122.3; Estimated Glomerular Filt Rate > 60; Glucose Random 208 mg/dL (60-115); Potassium 4.1 mmol/L (3.3-5.1); Sodium 146 mmol/L (135-145)
[2024-06-08] MEDS: Amoxicillin/Potassium Clav 875 MG TABLET PO ×2 (13:30→20:42)
[2024-06-08] MEDS: Melatonin 3 MG TABLET PO (20:43)
[2024-06-09 04:00] VITALS: BP 91/53; PULSE 50; RESP 16; TEMP 36.3; O2SAT 93
[2024-06-09 06:50] VITALS: BP 120/60; PULSE 68; RESP 16; TEMP 36.6; O2SAT 92
[2024-06-09 08:43] VITALS: BP 120/70; PULSE 65; TEMP 36.6
[2024-06-09] MEDS: Cholecalciferol (Vitamin D3) 25 MCG TABLET 50 MCG PO (08:47)
[2024-06-09] MEDS: Psyllium seed 3.7 GM PACKET PO (08:47)
[2024-06-09] MEDS: Pregabalin 100 MG CAPSULE PO (08:47)
[2024-06-09] MEDS: Divalproex Sodium ER 250 MG TAB.ER.24H PO (08:48)
[2024-06-09] MEDS: predniSONE 20 MG TABLET PO (08:48)
[2024-06-09] MEDS: Metoprolol Succinate ER 25 MG TAB.ER.24H PO (08:48)
[2024-06-09] MEDS: diazePAM 2 MG TABLET PO (08:48)
[2024-06-09] MEDS: Amoxicillin/Potassium Clav 875 MG TABLET PO (08:48)
[2024-06-09] MEDS: Divalproex Sodium ER 500 MG TAB.ER.24H PO (08:48)
[2024-06-09] MEDS: Apixaban 5 MG TABLET PO (08:48)
[2024-06-09] MEDS: Midodrine HCl 5 MG TABLET PO (08:56)
--- NOTE | 2024-06-09 10:31 | PM.DS ---
DS: Providers Provider Date of Service: 06/09/24 Date of admission: 06/06/24 17:29 Date of discharge: 06/09/24 Primary care physician: Augustine Dan DO DS: Diagnosis Discharge Diagnosis (1) Aspiration pneumonia: Status: Acute DS: Summary Hospital Course Hospital Course: Chief Complaint: Fever, vomiting Pt is a 59-year-old male with a PMH significant for?neuroleptic malignant syndrome due to omeprazole, intellectual delay, atrial fibrillation on Eliquis, HTN, seizure disorder, mood disorder, dysphagia, and long-term resident of [facility] who presents to the ED from [facility] for evaluation elevated temperature and BP after episode of vomiting. ?Staff at [facility] report pt had an episode of vomiting after eating lunch earlier this afternoon. Reportedly became very tremulous and elevated temperature of 100.7 degrees. Pt arrived to the ED with rigors and was noted to be febrile up to 104.6. pt was given Tylenol IV and placed in a cooling blanket for around 1 hour with good response. Pt is alert and oriented x3 and reports overall that he feels fine without any acute complaints. Denies shortness or breath or difficulty breathing. Denies cough. No chest pain/pressure, palpitations. Denies fever, chills, nausea, vomiting, abdominal pain. In the ED pt was febrile up to 104.6, tachycardic up to 130, tachypneic up to 28, hypoxic at 88% on 3 L NC, and with soft BP as low as 100/43. Labs were grossly unremarkable and around baseline for pt. No leukocytosis. Stable H&H. Chronic mild hyponatremia of 146, electrolytes otherwise WNL. Renal function baseline. Hepatic function WNL. Troponin negative. Valproic acid therapeutic. Tested negative for flu, COVID, RSV. CXR showed hazy opacity at right lung base concerning for atelectasis vs pneumonia vs pleural effusion. EKG demonstrated atrial flutter without evidence of significant ST elevations or depressions. Pt was treated in the ED with 3 L IVF, Tylenol IV, ceftriaxone, and metronidazole. Pt is admitted to the hospital for treatment and further evaluation of acute hypoxic respiratory failure in the setting of aspiration pneumonia with sepsis. Hospital course: Pt is a 59-year-old male with a PMH significant for?neuroleptic malignant syndrome due to omeprazole, intellectual delay, atrial fibrillation on Eliquis, HTN, seizure disorder, mood disorder, dysphagia, and long-term resident of [facility] who presents to the ED from SNF for evaluation elevated temperature and BP after episode of vomiting. Pt is admitted to the hospital for treatment and further evaluation of acute hypoxic respiratory failure in the setting of aspiration pneumonia with sepsia, he was treated with Unasyn for 3 days and then changed to oral Augmentin and will complete a total of 7 days of antibiotics. Initially required oxygen, but has been succesfully weaned off. He is tolerating regular diet and has no sings of dysphagia Chronic Hypernatremia, stble, las sodium 146 on 06/08 -check today and fluid if going up -follow renals/divalents Paroxysmal AFib, continue eliquis for rate stroke prevention Seizure disorder continue home meds Final diagnosis: Aspiration pneumonia Acute hypoxic respiratory failure Time Attestation Discharge Coordination Time (in mins): 45 Quality: Safe Use of Opioids Does Pt have an Active Cancer Diagnosis on the Problem List?: No Quality: Stroke Does the patient have a stroke diagnosis?: No Physical Exam Vital Signs: Vital Signs: Last Vital Signs Temp 98 F 06/09/24 08:43 Pulse 65 06/09/24 08:43 Resp 16 06/09/24 06:50 BP 120/70 06/09/24 08:43 Pulse Ox 92 06/09/24 06:50 O2 Del Method Room Air 06/09/24 06:50 O2 Flow Rate 1 06/08/24 16:00 Oxygen Flow Rate 3 06/06/24 14:09 BMI result Body Mass Index 30.7 DS: Data Data Completed and Pending Completed studies during hospitalization [Text1]: Procedures Insertion of Infusion Device into Superior Vena Cava, Percutaneous Approach (03/09/23) Introduction of Vasopressor into Central Vein, Percutaneous Approach (03/09/23) Supplement Abdominal Wall with Synthetic Substitute, Open Approach (03/15/22) Ultrasonography of Superior Vena Cava, Guidance (03/09/23) Labs on day of discharge: Laboratory Results - last 24 hr 06/08/24 11:38 Sodium 146 H Potassium 4.1 Chloride 105 Carbon Dioxide 32 H Anion Gap 13 BUN 20 H Creatinine 0.76 Estim Creat Clear Calc 122.3 Estimated GFR > 60 Random Glucose 208 H Calcium 8.7 Preliminary micro results at discharge 06/06/24 14:24 Blood Culture - Preliminary Blood - Venous No growth after 48 hours. 06/06/24 14:24 Blood Culture - Preliminary Blood - Venous No growth after 48 hours. Discharge Plan Discharge Anticipated Discharge Date/Time: 06/09/24 09:55 Patient Disposition: Xfer SNF Discharge Diagnosis: Aspiration pneumonia Referrals: Augustine Dan DO [Primary Care Provider] - 1 Week Discharge Medications: New amoxicillin-pot clavulanate 875-125 mg Tablet 1 tab PO BID Qty: 6 0RF Continued (DME) abdominal binder 2xl See Rx Instructions .Route .MEDSUPPLY Qty: 1 0RF Rx Instructions: Pt to wear binder during daytime hours - may remove for shower diazepam 2 mg Tablet 2 mg PO TID melatonin 1 mg Tablet 1 mg PO BEDTIME acetaminophen 500 mg Tablet 500 mg PO Q6H MDD 3g PRN (Reason: FEVER/MILD PAIN) pregabalin 100 mg Capsule 100 mg PO TID cholecalciferol (vitamin D3) 25 mcg (1,000 unit) Tablet 50 mcg PO DAILY polyethylene glycol 3350 [Miralax] 17 gram/dose powder 17 g PO BID Rx Instructions: dilute in 6-8 ounces of fluid sennosides-docusate sodium 8.6-50 mg Tablet 1 tab-cap PO DAILY midodrine 5 mg Tablet 5 mg PO TID@0900,1400,1800 Rx Instructions: do not give last dose of day after 6PM or within 4 hrs of bedtime metoprolol succinate 25 mg Tablet Extended Release 24 Hr 25 mg PO BID Protocol: Hold for SBP/HR < HOLD for SBP < : 100 HOLD for HR < : 60 nystatin 100,000 unit/gram Powder 1 appl TOPICAL BID Rx Instructions: to groin and groin creases divalproex [Depakote ER] 250 mg Tablet Extended Release 24 Hr 250 mg PO BID Rx Instructions: with 500 mg = 750mg bid bisacodyl 10 mg Suppository 10 mg [place] DAILY PRN (Reason: Constipation) Rx Instructions: if senna infective Fleet Enema 19-7 gram/118 mL Enema 118 ml [place] DAILY PRN (Reason: Constipation) Rx Instructions: if bisacodyl ineffective lactulose 10 gram/15 mL Solution 30 ml PO DAILY witch monica 20 % Pads, Medicated 1 pad TOPICAL NEEDED PRN (Reason: Hemorrhoids on anus) psyllium Packet 1 packet PO BID dextromethorphan-guaifenesin [Tussin DM] 10-100 mg/5 mL Syrup 10 ml PO Q4H PRN (Reason: Cough/congestion) alum-mag hydroxide-simeth 200-200-20 mg/5 mL Suspension 30 ml PO Q4H PRN (Reason: HEARTBURN OR NAUSEA) Rx Instructions: administer between meals and at bedtime ondansetron 4 mg Tablet,Disintegrating 4 mg PO Q6H PRN (Reason: NAUSEA, VOMITING) Eliquis 5 mg Tablet 5 mg PO BID Qty: 0 0RF divalproex [Depakote ER] 500 mg tablet extended release 24 hr 500 mg PO BID Rx Instructions: with 250 mg = 750mg bid Discharge Orders: Discharge Order (Routine); Ordered 06/09/24 Ordered By: Jamie Gross Diet: Advance to usual diet Activity on Discharge: As tolerated Stand Alone Forms: Patient Portal Discharge page Print Language: Venezuelan Care Plan Goals: recovery from aspiration pneumonia and respiratory failure Health Concerns: aspiration pneumonia Plan of Treatment: take Augmentin as recommended and follow up with your Doctor in a week Assessment: see above
--- NOTE | 2024-06-09 11:28 | MHC.CM.PN ---
Per MD patient medically cleared for dc back to LTC @ [facility]. Sister requesting BLS transport - contacted [facility] who declined transport d/t insurance. Offered [facility] - sister declined stating patient gets anxious in chair van. Sister then attempted to close the door on this CM, said she would transport and take care of it and asking this CM not to return. RN aware. Per RN patient safe to dc w/ sister transport.
[2024-06-09 13:06] VITALS: BP 114/65; PULSE 68; RESP 18; TEMP 37.2; O2SAT 97
== END 2024-06-09 13:07 | disposition skilled nursing facility (03) | DRG 720 ==
LOC: HO.ED 17:34 → HO.EDOVER 17:43 → HO.IMC 19:33 → HO.S3 06-08 17:14
PROVIDERS: Admitting Provider Student in an Organized Health Care Education/Training Program; Emergency Provider Emergency Medicine; PCP Hospitalist; Visit Provider Internal Medicine
DX: A41.9 Sepsis, unspecified organism (principal); J96.01 Acute respiratory failure with hypoxia; J69.0 Pneumonitis due to inhalation of food and vomit; I95.9 Hypotension, unspecified; E87.0 Hyperosmolality and hypernatremia; I48.0 Paroxysmal atrial fibrillation; Z20.822 Contact with and (suspected) exposure to COVID-19; F39 Unspecified mood [affective] disorder; G40.909 Epilepsy, unspecified, not intractable, without status epilepticus; Z79.01 Long term (current) use of anticoagulants; Z79.899 Other long term (current) drug therapy
CPT/HCPCS: 0241U; 36415; 71045; 80048; 80076; 80164; 81001; 82803; 83605; 83735; 84484; 85025; 86140; 87040; 93005; 99285; J0131; J0295; J0696; J1836; J2919; J7120

== ENCOUNTER → 2024-06-06 14:22 | Outpatient (BNV) | payer MEDICAID, SELFPAY | PROVIDERS: Emergency Provider Emergency Medicine; PCP Hospitalist; Visit Provider Radiology Diagnostic Radiology | DX: R94.2 Abnormal results of pulmonary function studies (principal) | CPT/HCPCS: 71045 ==

== ENCOUNTER 2024-06-06 17:29 | Outpatient (BNV) | payer MEDICAID, SELFPAY | END 2024-06-06 17:30 | PROVIDERS: Admitting Provider Student in an Organized Health Care Education/Training Program; Emergency Provider Emergency Medicine; PCP Hospitalist; Visit Provider Internal Medicine Cardiovascular Disease | DX: I48.91 Unspecified atrial fibrillation (principal) | CPT/HCPCS: 93010 ==

== ENCOUNTER → 2024-06-06 17:29 | Outpatient (BNV) | payer MEDICAID, SELFPAY | PROVIDERS: Admitting Provider Student in an Organized Health Care Education/Training Program; Emergency Provider Emergency Medicine; PCP Hospitalist; Visit Provider Student in an Organized Health Care Education/Training Program | DX: J96.01 Acute respiratory failure with hypoxia (principal); J69.0 Pneumonitis due to inhalation of food and vomit | CPT/HCPCS: 99223; 99232; 99239 ==

== ENCOUNTER → 2024-06-12 09:27 | Outpatient (REF) | payer MEDICAID, SELFPAY | LOC: HO.CARD 09:27 | PROVIDERS: PCP Hospitalist; Visit Provider Nurse Practitioner Family | DX: I48.91 Unspecified atrial fibrillation (principal); R00.1 Bradycardia, unspecified | CPT/HCPCS: 93242 ==

== ENCOUNTER → 2024-06-12 09:31 | Outpatient (BNV) | payer MEDICAID, SELFPAY | PROVIDERS: PCP Hospitalist; Visit Provider Internal Medicine Cardiovascular Disease | DX: I48.91 Unspecified atrial fibrillation (principal) | CPT/HCPCS: 93244 ==

== ENCOUNTER 2024-07-18 07:16 | Day surgery (SDC) | payer MEDICAID, SELFPAY ==
--- OUTSIDE RECORDS SUMMARY | 2024-07-08 16:19 | XMS_ITS | Clinical Summary ---
Author Organization [employer] Address [address] [place] [address] Care Team Providers Care Educational Adviser Name Role Phone Unavailable Primary Care Provider [...] Panel 1965 SDOH Screening 1965 Sigmoidoscopy 1965 Disability Screening 1965 Alcohol/Substance Use Screening 1977 Hepatitis C [...] 2023 08/31/2021, 02/02/2021, 07/30/2020, Additional history exists Tobacco Screening 11/28/2023 11/27/2022 Dental X-Ray: Bitewings 11/29/2023 11/28/19, 10/19/2021, 06/09/2020, Additional history exists Influenza Vaccine (Season Ended) 2024 11/05/2021, 12/06/2020, 11/18/2020 RSV Patients and Patients Aged 60 years [...]
[2024-07-16 13:31] VITALS: BMI 30.7
--- NOTE | 2024-07-18 08:26 | P.HPSUR_ITS ---
Pre-Procedural Eval Section A - 24 Hr Update-Section A only Date of Service: 07/18/24 Section B - Complete if H&P > 30 days Chief Complaint: Unspecified atrial fibrillation Details of Present Illness: Patient with persistent atrial fibrillation symptoms of fatigue with prior history of bradycardia but rate controlled on low-dose metoprolol. Has been on Eliquis. Plan for pursuing rhythm control Relevant Family History (Specify if Yes): No Relevant Social History: None Present Medications: see Short Stay Collaborative assessment Medical History: No relevant PMH History of Previous Operations: No relevant previous surgery Allergies: Allergies Allergy/AdvReac Type Severity Reaction Status Date / Time aripiprazole [From ABILIFY] Allergy Severe Involuntary Verified 06/06/24 14:18 Spasms droperidol [From INAPSINE] Allergy Severe Involuntary Verified 06/06/24 14:18 Spasms haloperidol [From HALDOL] Allergy Severe Involuntary Verified 06/06/24 14:18 Spasms prochlorperazine Allergy Severe Involuntary Verified 06/06/24 14:18 [From COMPAZINE] Spasms promethazine [From PHENERGAN] Allergy Severe Involuntary Verified 06/06/24 14:18 Spasms sulfamethoxazole Allergy Severe Anaphylaxis Verified 06/06/24 14:18 [From BACTRIM] trimethoprim [From BACTRIM] Allergy Severe Anaphylaxis Verified 06/06/24 14:18 Review of Systems Sugical H&P ROS: Negative: Respiratory, Neurological, Hem-Onc, Lambert rgic/Immunologic, Gastrointestinal, Genitourinary and Musculoskeletal and Yes, Specify: Constitution (Fatigued with exertion) and Cardiovascular Exam Surgical H&P Exam: Normal: HEENT, Normal: Lungs, Normal: Extremities, Normal: Abdomen, Normal: Skin and Normal: Neurological and Significant Findings: Heart (Irregularly irregular rhythm) Plan Diagnosis/Plan: Unchanged I have reviewed the history and physical and performed a pertinent physical examination on my patient. No changes have occurred unless specified. Time Spent With Patient Time: Total time managing care of this patient today ____ minutes.
[2024-07-18 08:32] VITALS: BP 92/58; PULSE 68; RESP 16; TEMP 36.6; O2SAT 96
--- NOTE | 2024-07-18 08:33 | HO.ANESPROP2 ---
Documented by User: Alejandra Peacock NP 07/17/24 11:06 HPI - Anesthesia Eval Consult details Narrative: 59yo M for Cardioversion [facility] resident: neuroleptic malignant syndrome, seizure ds Sister is guardian for consents - will be bringing patient Eliquis for afib Currently on augmentin for URI. Per facility staff, pt asymptomatic and afebrile Hx aspiration p[facility] with [facility]2024 [facility] Active Problems Active Problems: All Active Problems Aspiration pneumonia (Acute) Pneumonia (Acute) New onset a-fib (Acute) Hospital discharge follow-up (Acute) Bradycardia (Acute) Bladder outlet obstruction (Acute) Shortness of breath (Acute) Cough (Acute) COVID-19 (Acute) Swelling of right lower extremity (Acute) Swelling of right upper extremity (Acute) Aspiration pneumonia (Acute) Lactic acidosis (Acute) Hypoxia (Acute) Incisional hernia without mention of obstruction or gangrene (Acute) Hypertension (Acute) Past Medical History Medical History Neurogenic bladder Constipation Resides in [facility] facility History of GI bleed Seizure disorder Urinary incontinence Osteoarthritis Rectal prolapse Cognitive impairment Hx of deep venous thrombosis Thrombocytopenia Bilateral cataracts Personal history of COVID-19 Diverticular disease Flexion contractures OCD (obsessive compulsive disorder) History of hemodialysis Depression Neuroleptic malignant syndrome Epilepsy Deformity of left hand Generalized anxiety disorder Major depressive disorder Mild cognitive impairment Hypertension Family History Family History Sister Breast CA, Onset Age: 51 Ovarian ca, Onset Age: 55 Father Prostate CA, Onset Age: 70 Mother Colorectal cancer, Onset Age: 39 Kidney carcinoma, Onset Age: 67 Maternal Grandmother Colorectal cancer, Onset Age: 70 Maternal Aunt Colorectal cancer Family history of problems with anesthesia: No Surgical History Surgical History History of incisional hernia repair (03/15/22) History of repair of rectocele Hx of appendectomy Hx of colonoscopy History of Problems with Anesthesia: No Social History Social History Household Members: Other Household Members Other:: From [facility] Facility Housing: Shelter Housing Other:: patient coming from [facility] Are you a primary home care physical therapist to a significant other at home: No Do you presently have visiting nurse or other home services: Yes Unable to assess alcohol history related to: Unable to respond Alcohol intake: never [place] [facility] Tobacco Use Status: Never used Tobacco e-Cigarette/Vaping Use: Never Used Second Hand Smoke Exposure: No Use of substances other than those prescribed or required for medical reasons: No Have you been hit, kicked, punched, or otherwise hurt by someone within the past year? If so, by whom?: No Are you DNR?: No Advance Directives: No Advance Directives Information Provided: Yes Advance Directives on File: No Advance Directives Date on File: 11/21/19 Poor oral hygiene: No service: No Current occupational status: disabled Meds Allergies Allergy/AdvReac Type Severity Reaction Status Date / Time aripiprazole [From ABILIFY] Allergy Severe Involuntary Verified 06/06/24 14:18 Spasms droperidol [From INAPSINE] Allergy Severe Involuntary Verified 06/06/24 14:18 Spasms haloperidol [From HALDOL] Allergy Severe Involuntary Verified 06/06/24 14:18 Spasms prochlorperazine Allergy Severe Involuntary Verified 06/06/24 14:18 [From COMPAZINE] Spasms promethazine [From PHENERGAN] Allergy Severe Involuntary Verified 06/06/24 14:18 Spasms sulfamethoxazole Allergy Severe Anaphylaxis Verified 06/06/24 14:18 [From BACTRIM] trimethoprim [From BACTRIM] Allergy Severe Anaphylaxis Verified 06/06/24 14:18 Home Medications ?Medication ?Instructions ?Recorded ?Confirmed ?Last Taken ?Type diazepam 2 mg tablet 2 mg PO TID 11/17/19 07/16/24 07/18/24 History melatonin 1 mg tablet 1 mg PO BEDTIME 11/17/19 07/16/24 11/16/19 History acetaminophen 500 mg tablet 500 mg PO Q6H PRN FEVER/MILD PAIN 02/13/20 07/16/24 Unknown History cholecalciferol (vitamin D3) 25 50 mcg PO DAILY 02/13/20 07/16/24 Unknown History mcg (1,000 unit) tablet pregabalin 100 mg capsule 100 mg PO TID 02/13/20 07/16/24 03/15/22 History polyethylene glycol 3350 17 17 g PO BID 03/09/22 07/16/24 Unknown History gram/dose oral powder (Miralax) divalproex 500 mg tablet,extended 500 mg PO BID 04/20/22 07/16/24 07/18/24 History release 24 hr (Depakote ER) aluminum-mag hydroxide-simethicone 30 ml PO Q4H PRN HEARTBURN OR 05/11/22 07/16/24 Unknown History 200 mg-200 mg-20 mg/5 mL oral susp NAUSEA dextromethorphan-guaifenesin 10 10 ml PO Q4H PRN Cough/congestion 05/11/22 07/16/24 Unknown History mg-100 mg/5 mL oral syrup (Tussin DM) psyllium 1 packet PO BID 05/11/22 07/16/24 Unknown History divalproex 250 mg tablet,extended 250 mg PO BID 02/23/24 07/16/24 07/18/24 History release 24 hr (Depakote ER) metoprolol succinate 25 mg 25 mg PO BID 02/23/24 07/16/24 07/18/24 History tablet,extended release 24 hr midodrine 5 mg tablet 5 mg PO TID@0900,1400,1800 02/23/24 07/16/24 07/18/24 History nystatin 100,000 unit/gram topical 1 appl topical BID 02/23/24 07/16/24 Unknown History powder sennosides 8.6 mg-docusate sodium 1 tab-cap PO DAILY Constipation 02/23/24 07/16/24 Unknown History 50 mg tablet ondansetron 4 mg disintegrating 4 mg PO Q6H PRN NAUSEA, VOMITING 03/20/24 07/16/24 Unknown History tablet bisacodyl 10 mg rectal suppository 10 mg AL DAILY PRN Constipation 06/06/24 07/16/24 Unknown History lactulose 10 gram/15 mL oral 30 ml PO DAILY Constipation 06/06/24 07/16/24 Unknown History solution sodium phosphates 19 gram-7 118 ml AL DAILY PRN Constipation 06/06/24 07/16/24 Unknown History gram/118 mL enema (Fleet Enema) witch monica 20 % topical pads 1 pad topical NEEDED PRN 06/06/24 06/06/24 Unknown History Hemorrhoids on anus Exam Height,Weight and Vital Signs: Height 5 ft 10 in Weight 97.069 kg Pertinent Lab Results Pertinent Lab Results: Laboratory Tests 06/06/24 06/08/24 14:24 11:38 WBC 4.9 Hgb 15.0 Hct 46.3 Plt Count 99 L Sodium 146 H Potassium 4.1 Chloride 105 Carbon Dioxide 32 H BUN 20 H Creatinine 0.76 Narrative Narrative: ECHO 03/2024 Conclusions: - 1. Technically limited study 2. Normal LV ejection fraction of 60-65% with mild LVH 3. Limited cardiac valvular Dopplers within normal limits Assessment and Plan Assessment Anesthesia Assessment: Chart Reviewed Final Anesthetic Review Family History of Problems with Anesthesia: No History of Problems with Anesthesia: No Documented by User: Yenny Cao DO 07/18/24 08:35 HPI - Anesthesia Eval Consult details Narrative: 59yo M for Cardioversion [facility] resident: neuroleptic malignant syndrome in 2008, seizure ds Sister is guardian for consents - will be bringing patient Eliquis for afib Currently on augmentin for URI. Per facility staff, pt asymptomatic and afebrile Hx [facility]24 [facility] Past Medical History Medical History Neurogenic bladder Constipation Resides in [facility] facility History of GI bleed Seizure disorder Urinary incontinence Osteoarthritis Rectal prolapse Cognitive impairment Hx of deep venous thrombosis Thrombocytopenia Bilateral cataracts Personal history of COVID-19 Diverticular disease Flexion contractures OCD (obsessive compulsive disorder) History of hemodialysis Depression Neuroleptic malignant syndrome Epilepsy Deformity of left hand Generalized anxiety disorder Major depressive disorder Mild cognitive impairment Hypertension Family History Family History Sister Breast CA, Onset Age: 51 Ovarian ca, Onset Age: 55 Father Prostate CA, Onset Age: 70 Mother Colorectal cancer, Onset Age: 39 Kidney carcinoma, Onset Age: 67 Maternal Grandmother Colorectal cancer, Onset Age: 70 Maternal Aunt Colorectal cancer Family history of problems with anesthesia: No Surgical History Surgical History History of incisional hernia repair (03/15/22) History of repair of rectocele Hx of appendectomy Hx of colonoscopy History of Problems with Anesthesia: No Social History Social History Household Members: Other Household Members Other:: From [facility] Facility Housing: Shelter Housing Other:: patient coming from [facility] Are you a primary home care physical therapist to a significant other at home: No Do you presently have visiting nurse or other home services: Yes Unable to assess alcohol history related to: Unable to respond Alcohol intake: never Comment: [facility] [place] Tobacco Use Status: Never used Tobacco e-Cigarette/Vaping Use: Never Used Second Hand Smoke Exposure: No Use of substances other than those prescribed or required for medical reasons: No Have you been hit, kicked, punched, or otherwise hurt by someone within the past year? If so, by whom?: No Are you DNR?: No Advance Directives: No Advance Directives Information Provided: Yes Advance Directives on File: No Advance Directives Date on File: 11/21/19 Poor oral hygiene: No service: No Current occupational status: disabled Meds Allergies Allergy/AdvReac Type Severity Reaction Status Date / Time aripiprazole [From ABILIFY] Allergy Severe Involuntary Verified 06/06/24 14:18 Spasms droperidol [From INAPSINE] Allergy Severe Involuntary Verified 06/06/24 14:18 Spasms haloperidol [From HALDOL] Allergy Severe Involuntary Verified 06/06/24 14:18 Spasms prochlorperazine Allergy Severe Involuntary Verified 06/06/24 14:18 [From COMPAZINE] Spasms promethazine [From PHENERGAN] Allergy Severe Involuntary Verified 06/06/24 14:18 Spasms sulfamethoxazole Allergy Severe Anaphylaxis Verified 06/06/24 14:18 [From BACTRIM] trimethoprim [From BACTRIM] Allergy Severe Anaphylaxis Verified 06/06/24 14:18 Home Medications ?Medication ?Instructions ?Recorded ?Confirmed ?Last Taken ?Type diazepam 2 mg tablet 2 mg PO TID 11/17/19 07/16/24 07/18/24 History melatonin 1 mg tablet 1 mg PO BEDTIME 11/17/19 07/16/24 11/16/19 History acetaminophen 500 mg tablet 500 mg PO Q6H PRN FEVER/MILD PAIN 02/13/20 07/16/24 Unknown History cholecalciferol (vitamin D3) 25 50 mcg PO DAILY 02/13/20 07/16/24 Unknown History mcg (1,000 unit) tablet pregabalin 100 mg capsule 100 mg PO TID 02/13/20 07/16/24 03/15/22 History polyethylene glycol 3350 17 17 g PO BID 03/09/22 07/16/24 Unknown History gram/dose oral powder (Miralax) divalproex 500 mg tablet,extended 500 mg PO BID 04/20/22 07/16/24 07/18/24 History release 24 hr (Depakote ER) aluminum-mag hydroxide-simethicone 30 ml PO Q4H PRN HEARTBURN OR 05/11/22 07/16/24 Unknown History 200 mg-200 mg-20 mg/5 mL oral susp NAUSEA dextromethorphan-guaifenesin 10 10 ml PO Q4H PRN Cough/congestion 05/11/22 07/16/24 Unknown History mg-100 mg/5 mL oral syrup (Tussin DM) psyllium 1 packet PO BID 05/11/22 07/16/24 Unknown History divalproex 250 mg tablet,extended 250 mg PO BID 02/23/24 07/16/24 07/18/24 History release 24 hr (Depakote ER) metoprolol succinate 25 mg 25 mg PO BID 02/23/24 07/16/24 07/18/24 History tablet,extended release 24 hr midodrine 5 mg tablet 5 mg PO TID@0900,1400,1800 02/23/24 07/16/24 07/18/24 History nystatin 100,000 unit/gram topical 1 appl topical BID 02/23/24 07/16/24 Unknown History powder sennosides 8.6 mg-docusate sodium 1 tab-cap PO DAILY Constipation 02/23/24 07/16/24 Unknown History 50 mg tablet ondansetron 4 mg disintegrating 4 mg PO Q6H PRN NAUSEA, VOMITING 03/20/24 07/16/24 Unknown History tablet bisacodyl 10 mg rectal suppository 10 mg AL DAILY PRN Constipation 06/06/24 07/16/24 Unknown History lactulose 10 gram/15 mL oral 30 ml PO DAILY Constipation 06/06/24 07/16/24 Unknown History solution sodium phosphates 19 gram-7 118 ml AL DAILY PRN Constipation 06/06/24 07/16/24 Unknown History gram/118 mL enema (Fleet Enema) witch monica 20 % topical pads 1 pad topical NEEDED PRN 06/06/24 06/06/24 Unknown History Hemorrhoids on anus Exam Exam Date and Time: 07/18/24 0832 Height,Weight and Vital Signs: Height 5 ft 10 in Weight 97.069 kg Vital Signs Temperature 97.8 F 07/18/24 08:32 Pulse Rate 68 07/18/24 08:32 Respiratory Rate 16 07/18/24 08:32 Blood Pressure 92/58 L 07/18/24 08:32 Pulse Oximetry 96 07/18/24 08:32 Oxygen Delivery Method Room Air 07/18/24 08:32 Temperature 97.8 F 07/18/24 08:32 Pulse Rate 68 07/18/24 08:32 Respiratory Rate 16 07/18/24 08:32 Blood Pressure 92/58 L 07/18/24 08:32 Pulse Oximetry 96 07/18/24 08:32 Oxygen Delivery Method Room Air 07/18/24 08:32 Airway Mallampati Class: II TM Dist: <=3cm Neck ROM: Limited Loose/Missing/Broken Teeth: No (patient denies any loose or broken teeth) Heart: S1S2 Lungs: CTAB Assessment and Plan Assessment Anesthesia Assessment: Anesthesia Plan Discussed and Chart Reviewed Final Anesthetic Review Family History of Problems with Anesthesia: No History of Problems with Anesthesia: No NPO: Yes ASA Class: III Final Preanesthetic Review: No Changes in Pt Med Stat, Meds/Allgs Chart Reviewed, Consent Obtained/Reviewed and Anes Risks/Benef Reviewed Patient Risk: Intermediate Procedure Risk: Intermediate Anesthetic Plan Anesthetic Plan: MAC: and Agree w/ Assess. and Plan Disposition: Standard PACU
[2024-07-18] MEDS: Lactated Ringers 1,000 ML 100 ML IVCONT (08:34)
--- NOTE | 2024-07-18 09:01 | ECG_ITS ---
Test Reason : POST CARDIOVERSION EKG Blood Pressure : */* mmHG Vent. Rate : 55 BPM Atrial Rate : 55 BPM P-R Int : 212 ms QRS Dur : 94 ms QT Int : 452 ms P-R-T Axes : 56 -18 29 degrees QTcB Int : 432 ms Sinus bradycardia with 1st degree A-V block Low voltage QRS Borderline ECG When compared with ECG of 06-Jun-2024 17:40, Previous ECG has undetermined rhythm, needs review ST no longer depressed in Inferior leads ST no longer depressed in Anterior leads Non-specific change in ST segment in Lateral leads Nonspecific T wave abnormality has replaced inverted T waves in Inferior leads Referred By: Ant Anthony Electronically Signed By: ANT ANTHONY MD
[2024-07-18 09:52] VITALS: BP 112/71; PULSE 59; RESP 24; TEMP 36.9; O2SAT 94
[2024-07-18 09:57] VITALS: BP 106/55; PULSE 52; RESP 22; O2SAT 91
[2024-07-18 10:02] VITALS: BP 98/61; PULSE 51; RESP 17; O2SAT 97
[2024-07-18 10:05] VITALS: BP 108/60; PULSE 57; RESP 16; O2SAT 98
[2024-07-18 10:20] VITALS: BP 107/53; PULSE 61; RESP 16; TEMP 36.6; O2SAT 95
--- NOTE | 2024-07-18 10:25 | HO.CARDIVERS ---
Cardioversion Procedure Note Cardioversion Date of Procedure: 07/18/2024 Ordering Provider: Gabby Rodarte Performing Provider: James Anthony Indication for Procedure: Symptomatic persistent atrial fibrillation Pre-Op Diagnosis: Same Post-Op Diagnosis: Normal sinus rhythm Performed with Transesophageal Echo: No History: See the consult note Consent: Verbal and Written consent was obtained from the patient's sister before starting. The patient was made aware of the risk of synchronized cardioversion including benefits and alternatives Procedure: After consent obtained, cardioversion pads were attached in anteroposterior configuration and the patient was sedated by the anesthesia team. Once adequate sedation achieved, patient was delivered 200 joules of biphasic synchronized energy in anteroposterior configuration. Complications: Not Impression: Successful conversion to sinus rhythm Recommendations: 1. Continue metoprolol and oral anticoagulant therapy 2. Twelve lead EKG 3. Follow up in the office in 3-4 weeks
== END 2024-07-18 11:06 | disposition home or self-care (01) ==
PROVIDERS: PCP Hospitalist; Visit Provider Internal Medicine Cardiovascular Disease
PROC: 5A2204Z Restoration of Cardiac Rhythm, Single (ICD-10-PCS; principal; 2024-07-18 09:00)
DX: I48.19 Other persistent atrial fibrillation (principal); Z79.01 Long term (current) use of anticoagulants; I10 Essential (primary) hypertension; Z79.899 Other long term (current) drug therapy; Z88.8 Allergy status to other drugs, medicaments and biological substances
CPT/HCPCS: 92960; 93005

== ENCOUNTER → 2024-07-18 07:16 | Outpatient (BNV) | payer MEDICAID, SELFPAY | PROVIDERS: PCP Hospitalist; Visit Provider Internal Medicine Cardiovascular Disease | DX: I48.19 Other persistent atrial fibrillation (principal); I44.0 Atrioventricular block, first degree | CPT/HCPCS: 92960; 93010 ==

== ENCOUNTER 2024-08-11 14:28 | Outpatient (REF) | payer MEDICAID, SELFPAY ==
--- NOTE | ~2024-08-11 | FL_ITS ---
EXAMINATION: XR BARIUM SWALLOW CLINICAL INFORMATION: Aspiration pneumonia COMPARISON: None available. TECHNIQUE: Routine modified barium swallow was performed under lateral fluoroscopy with patient sitting on a wheelchair in presence of speech therapist FINDINGS: On oral administration of thin barium there is trace laryngeal penetration seen. On subsequent images this is not visualized. Otherwise there is normal propagation bolus from the oral cavity, pharynx into esophagus with thin, thick barium, barium coated puree and barium with crackers. There is normal oral mastication with solid food/cracker. FLUOROSCOPY TIME: 2 minute 24 seconds DOSE AREA PRODUCT: 96.1 uGy-m2 (microgray-meter squared) FL/FL Modified Barium Swallow IMPRESSION: Trace laryngeal penetration seen with thin barium. Otherwise unremarkable modified barium swallow. Correlate with speech therapy report. Electronically signed by: Alex Coleman MD 08/11/2024 03:30 PM EDT
--- OUTSIDE RECORDS SUMMARY | 2024-08-11 15:01 | XMS_ITS | Clinical Summary ---
Author Organization [employer] Address [address] [place] [address] Care Team Providers Care Rn Radiology Name Role Phone Unavailable Primary Care Provider [...] 10/19/2021, 06/09/2020, Additional history exists Influenza Vaccine (#1) 2024 , 12/06/2020, 11/18/2020 RSV Patients and Patients Aged [...]
--- OUTSIDE RECORDS SUMMARY | 2024-08-11 15:01 | XMS_ITS | Encounter Summary ---
Author Organization [employer] Address [address] [place] [address] Care Team Providers Care Booking Prizer Name Role Phone Augustine Dan MD Primary Care Provider [phone] Encounter Details Date Type Department Care Team (Late st Contact Info) Description 02/04/2024 Lab Requisition [facility] - Main Lab [address] [place] [address] Augustine Dan MD [address] [place] [address] Dr [address] KALANI Camacho Dysuria Social [...] Hold for add-ons. 02/04/2024 7:02 PM EST [facility] Comment:Auto resulted. Urine Urine specimen obtained by clean catch procedure / Unknown 02/04/2024 1:30 PM EST 02/04/2024 5:27 PM EST us Augustine Dan MD LAB URINE ORDERABLES Final Resul t [facility] [address] [place] [address], * Urinalysis with reflex microscopic and culture (02/04/2024 1:30 PM EST) Specific [place] Urine 1.015 1.003 - 1.030 LAB URINALYSIS - AUTOMATED METHOD 02/04/2024 5:44 PM [facility] pH, Urine 7.5 5.0 - 8.0 pH LAB URINALYSIS - AUTOMATED METHOD 02/04/2024 5:44 PM [facility] Leukocytes, Urine Negative Negative LAB URINALYSIS - AUTOMATED METHOD 02/04/2024 5:44 PM [facility] Nitrite, Urine Negative Negative LAB URINALYSIS - AUTOMATED METHOD 02/04/2024 5:44 PM [facility] Protein, Urine Negative <=Trace mg/dL LAB URINALYSIS - AUTOMATED METHOD 02/04/2024 5:44 PM [facility] Glucose, Urine Negative Negative mg/dL LAB URINALYSIS - AUTOMATED METHOD 02/04/2024 5:44 PM [facility] Ketones, Urine Negative Negative mg/dL LAB URINALYSIS - AUTOMATED METHOD 02/04/2024 5:44 PM [facility] Urobilinogen, Urine 0.2 0.2 - 1.0 mg/dL LAB URINALYSIS - AUTOMATED METHOD 02/04/2024 5:44 PM [facility] Bilirubin, Urine Negative Negative LAB URINALYSIS - AUTOMATED METHOD 02/04/2024 5:44 PM [facility] Blood, Urine Negative Negative LAB URINALYSIS - AUTOMATED METHOD 02/04/2024 5:44 PM [facility] Urine Urine specimen obtained by clean catch procedure / Unknown 02/04/2024 1:30 PM EST 02/04/2024 5:12 PM EST us Augustine Dan MD LAB URINE ORDERABLES Final Resul t [facility] ([facility] [address] [place] [address], documented in this encounter Visit Diagnoses Diagnosis Dysuria documented in this encounter Care Teams Booking Prizer Relationship Specialty Start Date End Date Augustine Dan MD [address] [place], [place] PCP - General Internal Medicine 04/21/24 documented as of this encounter
--- NOTE | 2024-08-12 10:10 | MHC.SL.IMP ---
Date of Plan of Treatment: 08/11/24 Onset of Symptoms/Illness: 03/14/23 Date Treatment Started: 08/11/24 Admitting Diagnosis: Hx aspiration PNA Primary Speech & Language Diagnosis: R13.12 Oropharyngeal Phase Dysphagia Reason for Today's Visit: 25767 Modified Barium Swallow Study Pre-evaluation Dietary Consistencies: Soft & Bite Sized Pre-evaluation Liquid Consistency: Mildly Thick Pre-evaluation Medication Administration: UNK Medical History: Modified Barium Swallow Study Fluoroscopic Evaluation of Swallowing Function CPT Code 33028 Evaluation Year: 2024 Reason for Study: Hx of aspiration pneumonia; R/O subclinical aspiration Referring Physician: Augustine Dan DO Evaluating Clinician: Marylou Kearney MA, [facility]-[employer] SUPERVIS[employer] Study Number: 1 Patient Name: Matt Iraheta Status: Outpatient, Wheelchair Age: 59 Sex: Male Medical History Medical History Neurogenic bladder Constipation Resides in [facility] facility History of GI bleed Seizure disorder Urinary incontinence Osteoarthritis Rectal prolapse Cognitive impairment Hx of deep venous thrombosis Thrombocytopenia Bilateral cataracts Personal history of COVID-19 Diverticular disease Flexion contractures OCD (obsessive compulsive disorder) History of hemodialysis Depression Neuroleptic malignant syndrome Epilepsy Deformity of left hand Generalized anxiety disorder Major depressive disorder Mild cognitive impairment Hypertension Surgical History History of incisional hernia repair (03/15/22) History of repair of rectocele Hx of appendectomy Hx of colonoscopy Current (pre-evaluation) Intake/Diet: Route: PO Diet Grade: Soft & Bite-Sized Liquid Consistencies: Mildly Thick Pre-Study Functional Oral Intake Scale (FOIS): 5- Total oral intake of multiple consistencies requiring special preparation Pain: None reported at time of study SUBJECTIVE: Patient is a 59 year old male referred for a modified barium swallow study by Augustine BECK to rule in/out silent aspiration. Patient is known to [facility] [employer] [facility]PER[facility] team at [facility] and was seen during multiple prior hospitalizations 03/2023-06/2024. Patient was recently hospitalized in June with aspiration pneumonia, did not present with any oral phase difficulties or overt signs of aspiration on clinical swallow evaluation, was cleared by ANODE CREW SUPERVISOR to resume Regular texture diet and Thin liquids, per MD, ?with no signs of dysphagia.? Patient is a long-term care resident at [facility] and is seen by the ANODE CREW SUPERVISOR there. He is currently on a Soft and Bite Sized diet with Mildly Thick liquids. Patient denies having any difficulty managing solids and denies coughing/choking. Patient was accompanied to today?s exam by his sister/healthcare proxy, Aparna, who also endorses patient does not have trouble swallowing. Pertinent medical history includes neuroleptic malignant syndrome, intellectual delay, atrial fibrillation on Eliquis, hypertension, seizure d/o, hx GI bleed, and diverticular disease. Oral Motor Exam Facial Symmetry: Symmetrical Mouth Occlusion: Normal Lower Protrusion Oral-Facial Teeth Characteristics: Intact/Normal Oral-Facial Smile (Lips) Description: Normal Oral-Facial Puff Cheeks Description: Normal Tongue Size: Normal Tongue Excursion Description: Normal Tongue Range of Movement Description: Reduced Tongue Speed of Movement Description: Normal Tongue Strength of Movement (against opposing pressure): Normal Tongue Movement Characteristics: Normal/Absent Is patient able to manage secretions?: Yes Food and Liquid Trials: Oral Impairment: Lip Closure: 0=No labial escape Oral Impairment: Tongue Control During Bolus Hold: 2=Posterior escape of less than half of bolus Oral Impairment: Bolus Preparation/Mastication: 0=Timely and efficient chewing and mashing Oral Impairment: Bolus Transport/Lingual Motion: 1= Delayed initiation of tongue motion Oral Impairment: Oral Residue: 1=Trace residue lining oral structures Oral Impairment:Initiation of Pharyngeal Swallow: 3=Bolus head in pyriforms Pharyngeal Impairment: Soft Palate Elevation: 0=No bolus between soft palate (SP)/pharyngeal wall (PW) Pharyngeal Impairment: Laryngeal Elevation: 0=Complete superior movement of thyroid cartilage (see description) Pharyngeal Impairment: Anterior Hyoid Excursion: 0=Complete anterior movement Pharyngeal Impairment: Epiglottic Movement: 1=Partial inversion Pharyngeal Impairment: Laryngeal Vestibular Closure:: 1=Incomplete: narrow column air/contrast in laryngeal vestibule Pharyngeal Impairment: Pharyngeal Stripping Wave: 0=Present: complete Pharyngeal Impairment: Pharyngeal Contraction: Did not test Pharyngeal Impairment: Pharyngoesophageal Segment Openin=Complete distension and complete duration: no obstruction of flow Pharyngeal Impairment: Tongue Base (TB) Retraction: 2=Narrow column of contrast/air between TB and posterior PW Pharyngeal Impairment: Pharyngeal Residue: 2=Collection of residue within or on pharyngeal structures Pharyngeal Impairment: Esophageal Clearance Upright Position: Did not test Impressions and Recommendations OBJECTIVE: Time-out: performed at 15:00 Evaluation Start: 14:45; Stop: 14:50 Patient Positioning: Seated 70-90 degrees Viewing Planes: LATERAL ONLY Contrast: MBSImP? Standardized Protocol using commercially prepared, standardized Barium viscosities, including: Varibar? THIN LIQUID (40% w/v, <15 cps) , Varibar? NECTAR (40% w/v, <150-450 cps) , Varibar? PUDDING (40% w/v, <7056-8506 cps) , 1/2 Shortbread Cookie (1 x1 x.25 ) MBSImP ID: [id number] MBSImP Results: Lip closure for intraoral bolus containment resulted in no labial escape. Tongue control during bolus hold resulted in posterior escape of less than half of the bolus. Bolus preparation and mastication resulted in timely and efficient chewing and mashing. Bolus transport/lingual motion demonstrated delayed initiation of tongue motion. Oral residue was a trace, lining oral structures. Initiation of the pharyngeal swallow occurred when the bolus head was in the pyriform sinuses. Soft palate elevation resulted in no bolus between the soft palate and the pharyngeal wall. Laryngeal elevation demonstrated complete superior movement of the thyroid cartilage with complete approximation of the arytenoids to the epiglottic petiole. Anterior hyoid excursion demonstrated complete anterior movement. Epiglottic movement resulted in partial inversion. Laryngeal vestibular closure was incomplete, with a narrow column of air/contrast noted within the laryngeal vestibule at the height of the swallow. Pharyngeal stripping wave was present and complete. Pharyngeal contraction could not be determined due to logistical reasons not related to physiologic impairment. Pharyngoesophageal segment opening was completely distended for complete duration with no obstruction of bolus flow. Tongue base retraction allowed a narrow column of contrast or air between the retracted tongue base and the posterior pharyngeal wall. Pharyngeal residue was a collection of residue within or on pharyngeal structures. Esophageal clearance in the upright position could not be assessed due to logistical reasons not related to physiologic impairment. Oral Impairment Score: 6 Pharyngeal Impairment Score: 6 (absence of score, component 13) Esophageal Impairment Score: --- (absence of score, component 17) Laryngeal Penetration and Aspiration: Neither penetration nor aspiration was observed in today's study with Cookie, Pudding-thick, Marrowstone-thick. Penetration was observed in today's study. Thin Contrast entered the airway, remained above the vocal folds, and was ejected from the airway. ASSESSMENT: This exam was performed by the radiologist and the speech pathologist. Patient was seated upright in a wheelchair for lateral view only. Patient fed himself without difficulty and trialed the following consistencies: Thin liquid (via individual cup sips) Marrowstone thick liquid (via individual cup sips) Puree (mixture applesauce with barium pudding) Regular (bennie crackers coated with barium pudding) Adequate lip closure with no anterior loss of bolus. Posterior lingual bolus transport was delayed Poor tongue control with premature spillage seen posteriorly into the pharynx prior to the pharyngeal swallow, with contrast pooling in the valleculae and pyriforms. Mastication was timely and efficient.. Trace residue coated the floor of mouth and tongue and cleared on secondary swallows. Pharyngeal swallow trigger was delayed, initiated as the bolus head reached the pyriforms. No evidence of nasopharyngeal reflux. Complete laryngeal elevation. Epiglottic inversion was partial and laryngeal vestibular closure incomplete. There was trace penetration above the vocal folds intermittently on trials of thin liquid, which spontaneously cleared with no subsequent aspiration. No evidence of aspiration or penetration with trials of nectar thick, puree, and regular solid textures. Mild pooling of liquid seen in the valleculae and pyriforms, which cleared on cued dry swallow. Complete pharyngeal clearance seen with trials of solid textures. Liquid Intake Recommendation: Thin Liquid Intake Strategies: Small Sips, No Straws, Double Swallow Dietary Recommendations: Regular Medication Administration: Whole with Liquid Please contact the pharmacy regarding appropriate crushable or liquid drug formulations that are available whenever modified delivery is recommended. Compensatory Strategies Recommended: Sitting Upright (90 deg), Double Swallow, No Straw, Small Bites and Sips, Rate of Ingestion Change Supervision during eating and or drinking: Direct Supervision (1:1) Recommended Treatments: Compens. Strategy Educat. Recommendation for Speech Therapy: Speech Therapy through Rehab Facility Text Comment: Intake Recommendations: Route: PO Diet Grade: Regular Liquid Consistencies: Thin Post-Study Functional Oral Intake Scale (FOIS): 7- Total oral intake with no restrictions Exam revealed mild oropharyngeal dysphagia, characterized by poor tongue control and premature posterior spillage, delayed AP transport and pharyngeal swallow trigger, partial epiglottic inversion and incomplete laryngeal vestibular closure. There was trace penetration above the vocal folds intermittently on trials of thin liquid, which spontaneously cleared from the airway. No evidence of aspiration during this exam. Minimal pooling of liquid seen in the pharynx, cleared with cued dry swallow. Complete clearance seen with trials of solid textures. Recommend UPGRADE to REGULAR texture diet and THIN liquids, pills WHOLE with LIQUID or PUREE depending on patient?s tolerance/preference. Patient is able to feed himself independently, but may benefit from supervision at meal time to monitor tolerance and provide cues if needed. Recommend feeding precautions to maximize safety: -upright during meals and for at least 30 minutes afterwards -one small sip at a time -avoid ?chugging? liquids -avoid the use of straws -take one bite at a time and chew well -dry swallow between bites/sips to clear pharyngeal residue Therapy Recommendations: Follow-up with [facility] [employer]W SUPERVISOR at [facility] facility for patient education/training of compensatory strategies Short Term Goals: ? Diet - The patient will tolerate a regular diet with thin liquids without signs or symptoms of penetration/aspiration 100% of the time. - The patient will participate in therapeutic PO trials with the ANODE CREW SUPERVISOR. ? Guidelines - The patient will comply with/recall the following guidelines/strategies 100% of the time with minimal cuing: Bolus Volume Change, Rate of Ingestion Change, Additional Swallow(s) per Bolus, No Straws. ? Education - The patient, family, caregiver, nurse will verbalize/demonstrate understanding of the results of this evaluation, the above recommendations, and the swallowing guidelines. Frequency/Duration: 2-4 visits Date Range for Service Requested: Timeline to reassess: PRN Clinician - Supplemental, Miscellaneous Communication: It is important to note MBSS objective studies are snapshots in time and Patient function might vary with factors such as time of day or concomitant medical conditions. For this reason, the final treatment plan for this patient should rest with their medical care team. Additional recommendations should be considered with the totality of the Patient in mind. Thank for the opportunity to participate in the care of this patient. If you have any questions about the content of this report, please contact the [facility] at [facility]. Education: Education regarding findings from today's study and plans for therapy were provided to Patient and family/caregiver through Verbal Instruction, Written Instruction. Understanding was expressed by the Patient and family/caregiver. Supply Chain Systems Manager Clinician/Clinical Fellow: No Supervisory Statement: N/A Speech Language Pathologist: Marylou Kearney M.A., [facility] [facility]
== END 2024-08-11 14:29 | disposition home or self-care (01) ==
LOC: HO.XRAY 14:28
PROVIDERS: Visit Provider Hospitalist
DX: R13.12 Dysphagia, oropharyngeal phase (principal)
CPT/HCPCS: 74230; 92611

== ENCOUNTER → 2024-08-11 14:30 | Outpatient (BNV) | payer MEDICAID, SELFPAY | PROVIDERS: Visit Provider Radiology Diagnostic Radiology | DX: J69.0 Pneumonitis due to inhalation of food and vomit (principal) | CPT/HCPCS: 74230 ==

== ENCOUNTER 2024-08-18 13:25 | Outpatient (AMB) | payer MEDICAID, SELFPAY ==
[2024-08-18 13:41] VITALS: BP 114/54; PULSE 70; BMI 32.3
--- NOTE | 2024-08-18 13:41 | MHC.OFFVIS ---
Vital Signs 08/18/24 13:41 Height 5 ft 10 in Weight 225 lb 4.999 oz BMI 32.3 BP 114/54 L Blood Pressure Location Lt brachial Position Sitting Pulse 70 Pulse Source Monitor Intake Visit Reasons: Follow up post cardioversion Chief Station Engineer Required: No Supervisor Water Treatment Plant: Supervisor Water Treatment Plant Present Allergies aripiprazole (From ABILIFY) Allergy (Severe, Verified 08/18/24 13:46) Involuntary Spasms droperidol (From INAPSINE) Allergy (Severe, Verified 08/18/24 13:46) Involuntary Spasms haloperidol (From HALDOL) Allergy (Severe, Verified 08/18/24 13:46) Involuntary Spasms prochlorperazine (From COMPAZINE) Allergy (Severe, Verified 08/18/24 13:46) Involuntary Spasms promethazine (From PHENERGAN) Allergy (Severe, Verified 08/18/24 13:46) Involuntary Spasms sulfamethoxazole (From BACTRIM) Allergy (Severe, Verified 08/18/24 13:46) Anaphylaxis trimethoprim (From BACTRIM) Allergy (Severe, Verified 08/18/24 13:46) Anaphylaxis Medication List - Last Reconciled 08/18/24 by Gabby Rodarte NP-C [abdominal binder Pt to wear binder during daytime hours - may remove for shower ] acetaminophen 500 mg PO Q6H PRN MDD 3g alum-mag hydroxide-simeth 200-200-20 mg/5 mL 30 mL PO Q4H PRN amoxicillin-pot clavulanate 875-125 mg 1 tab PO BID apixaban (Eliquis) 5 mg PO BID bisacodyl 10 mg [place] DAILY PRN cholecalciferol (vitamin D3) 50 mcg PO DAILY dextromethorphan-guaifenesin 10-100 mg/5 mL (Tussin DM) 10 mL PO Q4H PRN diazepam 2 mg PO TID divalproex ER (Depakote ER) 250 mg PO BID divalproex ER (Depakote ER) 500 mg PO BID lactulose 30 mL PO DAILY melatonin 1 mg PO BEDTIME metoprolol succinate ER 25 mg See Protocol PO BID midodrine 5 mg PO TID@0900,1400,1800 nystatin 1 appl topical BID ondansetron 4 mg PO Q6H PRN polyethylene glycol 3350 (Miralax) 17 grams PO BID pregabalin 100 mg PO TID psyllium 1 packet PO BID sennosides-docusate sodium 8.6-50 mg 1 tab-cap PO DAILY sodium phosphates 19-7 gram/118 mL (Fleet Enema) 118 mL [place] DAILY PRN witch monica 20% 1 pad topical NEEDED PRN HPI HPI Follow up post cardioversion: Details: Matt is a 59-year-old male with past medical history of neuroleptic malignant syndrome secondary to Abilify in 2008, chronic upper extremity contractures, anxiety, hypertension, bradycardia, newer finding of atrial fibrillation who recently had a cardioversion and now presents for follow-up. Today he presents for follow-up with his sister. She is very involved in his care and goes to all his appointments with him. Patient states that he has been doing well since his last hospital discharge for aspiration pneumonia. He has not had any heart palpitations since his outpatient cardioversion on 07/18/2024. He is noticing less fatigue. No shortness of breath, PND, orthopnea. He does have some chronic mild leg edema. No chest discomfort at rest or with activity. No lightheadedness, presyncope, syncope. He ambulates with the use of the walker. He resides at [facility] he takes all medications as provided. No bleeding issues reported with Eliquis use. [facility]LY [facility] Medical History Encounter for cardioversion procedure Neurogenic bladder Constipation Resides in snf facility History of GI bleed Seizure disorder Urinary incontinence Osteoarthritis Rectal prolapse Cognitive impairment Hx of deep venous thrombosis Thrombocytopenia Bilateral cataracts Personal history of COVID-19 Diverticular disease Flexion contractures OCD (obsessive compulsive disorder) History of hemodialysis Depression Neuroleptic malignant syndrome Epilepsy Deformity of left hand Generalized anxiety disorder Major depressive disorder Mild cognitive impairment Hypertension Surgical History History of incisional hernia repair (03/15/22) History of repair of rectocele Hx of appendectomy Hx of colonoscopy Family History Sister Breast CA, Onset Age: 51 Ovarian ca, Onset Age: 55 Father Prostate CA, Onset Age: 70 Mother Colorectal cancer, Onset Age: 39 Kidney carcinoma, Onset Age: 67 Maternal Grandmother Colorectal cancer, Onset Age: 70 Maternal Aunt Colorectal cancer Social History Household Members: Other Household Members Other:: From [facility] Facility Housing: [facility] Housing Other:: [facility] Are you a primary animal care provider to a significant other at home: No Do you presently have visiting nurse or other home services: Yes Unable to assess alcohol history related to: Unable to respond Alcohol intake: never Comment: [facility] Patient Tobacco Use Status: Never used Tobacco e-Cigarette/Vaping Use: Never Used Second Hand Smoke Exposure: No Advance Directives Date on File: 11/21/19 service: No Current occupational status: disabled Review of Systems Const All systems reviewed & are unremarkable except as noted in HPI and below ENT Denies dizziness Card Denies chest pain, Denies chest pain at rest, Denies chest pain with activity, Denies rapid heart rate, Reports pedal edema, Denies edema, Reports leg edema, Denies lightheadedness, Denies palpitations, Denies dyspnea, Denies dyspnea on exertion and Denies orthopnea Resp Denies cough, Denies dyspnea and Denies dyspnea on exertion GI Denies hematochezia and Denies change in stool character Musc Denies abnormal gait, Denies limited range of motion, Denies muscle cramps, Denies muscle weakness, Denies numbness, Denies radiating pain into limb, Denies stiffness and Denies tingling Neuro Denies abnormal gait, Denies dizziness, Denies numbness and Denies tingling Endo Denies palpitations Physical Exam Vital Signs: Last Vital Signs Pulse 70 08/18/24 13:41 BP 114/54 L 08/18/24 13:41 BMI result Body Mass Index 32.3 Const General: cooperative, healthy appearing, comfortable and no acute distress Orientation/consciousness: patient oriented x3 Neck Neck: Yes normal visual inspection Resp Effort & Inspection: normal respiratory effort Auscultation: clear to auscultation bilaterally, no rales, no rhonchi and no wheezes Cardio Rate: regular rate Rhythm: abnormal rhythm Heart sounds: S1 normal heart sound present, S2 normal heart sound present, no gallops, no murmurs and no rubs Neuro General: patient oriented x3 Extrem Other: pitting ankle and pedal edema General: No calf tenderness Psych Appearance: grossly normal Mental Status: mental status grossly normal Speech and movement: Normal speech and movement present Office Procedures EKG Details: Today, read by me, sinus rhythm, low-voltage QRS, rate 70, QTC 416 milliseconds [id number], Complete Assessment & Plan Assessment & Plan (1) New onset a-fib: Code(s): I48.91 - Unspecified atrial fibrillation Category: Medical Plan: New atrial fibrillation at the time of sepsis admission at [facility] in March 2024, which remained persistent. Holter monitor done 06/12/2024 for 4 days shows atrial fibrillation with average heart rate 69, rare PVCs. He underwent successful cardioversion on 07/18/[address] Anthony. EKG done today showing normal sinus rhythm, rate 70. Echocardiogram done 03/21/2024 shows EF 60-65%, mild LVH. Continue metoprolol XL 25 mg b.i.d. for heart rate control. Continue Eliquis 5 mg b.i.d. for anticoagulation. Cardiology follow-up 3-4 months, sooner if needed. (2) Hypertension: Code(s): I10 - Essential (primary) hypertension Category: Medical Plan: Blood pressure goal less than 130/80. Blood pressure has been running low for the last few months and he continues to take midodrine 3 times daily. According to sister they have tried to cut down midodrine at his snf facility and his blood pressure again goes too low. No med changes made at this time. Reviewed need for good hydration, use caution from sitting to standing. (3) Edema: Code(s): R60.9 - Edema, unspecified Category: Medical Plan: Chronic mild leg edema. Sister reports recent increase in swelling of feet and around ankle. +1-2 pitting edema noted around each lateral malleolus and top of feet. Labs today, BMP and BNP. Results available prior to the completion of this note, reviewed with his sister. Has chronic mild hypernatremia. BNP 66. Edema is likely related to frequent dependent position, sedentary lifestyle, venous insufficiency not excluded. Discuss this with sister. Reviewed low-salt diet, leg elevation, increase ambulation, increase p.o. fluid intake and compression stocking use if able. Plan I discussed with the patient the management of atrial fibrillation, emphasizing the importance of continuing metoprolol and Eliquis to manage heart rate and reduce stroke risk. We agreed to conduct blood tests to evaluate potential causes of edema, including electrolytes, kidney function, and BNP levels. I advised that if the tests are normal, the edema could be managed with lifestyle modifications such as leg elevation and monitoring salt intake. I encouraged regular walking to improve circulation and advised follow-up if symptoms change or worsen. Orders: Orders Basic Metabolic Panel Today R60.9 - Edema, unspecified B Type Natriuretic Peptide Today R60.9 - Edema, unspecified Patient Instructions: - Continue taking metoprolol and Eliquis as prescribed. - Attend scheduled blood tests for electrolytes, kidney function, and BNP. - Elevate legs and monitor salt intake if blood tests are normal. - Walk regularly to improve circulation. - Follow up if symptoms change or worsen. Patient was informed and verbally consented to the use of an ambient scribe for clinic note documentation during this visit. Visit time spent on chart review, interview, assessment, orders, documentation. Coding Level of Care Code Est Pt Level 4 (31836) Complex EM visit Add On G2211 Diagnoses New onset a-fib I48.91 Hypertension I10 Edema R60.9 CPT Codes EKG - CPT: 21635-[id number], Complete ([id number]) Time Spent (min) 28
--- OUTSIDE RECORDS SUMMARY | 2024-08-18 14:33 | XMS_ITS | Clinical Summary ---
Author Organization [email or web address] Address [address] [place] [address] Care Team Providers Care Roll Grinder Name Role Phone Unavailable Primary Care Provider [...]
== END 2024-08-18 14:26 | disposition home or self-care (01) ==
LOC: HO.HCS 13:26
PROVIDERS: PCP Hospitalist; Visit Provider Nurse Practitioner Family
DX: I48.91 Unspecified atrial fibrillation (principal); I10 Essential (primary) hypertension; R60.9 Edema, unspecified
CPT/HCPCS: 93010; 99214; G2211

== ENCOUNTER 2024-08-18 13:25 | Outpatient (REF) | payer MEDICAID, SELFPAY ==
--- OUTSIDE RECORDS SUMMARY | 2024-08-18 15:51 | XMS_ITS | Encounter Summary ---
Author Organization [employer] Address [address] [place] [address] Care Team Providers Care Statistics Tutor Name Role Phone Augustine Dan MD Primary Care Provider [phone] Encounter Details Date Type Department Care Team (Late st Contact Info) Description 02/04/2024 Lab Requisition [facility] - Main Lab [address] [place] [address] Augustine Dan MD [address] [place] [address] Dr [address] KALANI Camacho Dysuria Social [...] Hold for add-ons. 02/04/2024 7:02 PM EST [facility] ([facility] Comment:Auto resulted. Urine Urine specimen obtained by clean catch procedure / Unknown 02/04/2024 1:30 PM EST 02/04/2024 5:27 PM EST us Augustine Dan MD LAB URINE ORDERABLES Final Resul t [facility] [address] [place] [address], * Urinalysis with reflex microscopic and culture (02/04/2024 1:30 PM EST) Specific [place] Urine 1.015 1.003 - 1.030 LAB URINALYSIS - AUTOMATED METHOD 02/04/2024 5:44 PM [facility] pH, Urine 7.5 5.0 - 8.0 pH LAB URINALYSIS - AUTOMATED METHOD 02/04/2024 5:44 PM [facility] Leukocytes, Urine Negative Negative LAB URINALYSIS - AUTOMATED METHOD 02/04/2024 5:44 PM [facility] Nitrite, Urine Negative Negative LAB URINALYSIS - AUTOMATED METHOD 02/04/2024 5:44 PM [facility] Protein, Urine Negative <=Trace mg/dL LAB URINALYSIS - AUTOMATED METHOD 02/04/2024 5:44 PM [facility] Glucose, Urine Negative Negative mg/dL LAB URINALYSIS - AUTOMATED METHOD 02/04/2024 5:44 PM [facility] Ketones, Urine Negative Negative mg/dL LAB URINALYSIS - AUTOMATED METHOD 02/04/2024 5:44 PM [facility] Urobilinogen, Urine 0.2 0.2 - 1.0 mg/dL LAB URINALYSIS - AUTOMATED METHOD 02/04/2024 5:44 PM [facility] Bilirubin, Urine Negative Negative LAB URINALYSIS - AUTOMATED METHOD 02/04/2024 5:44 PM [facility] Blood, Urine Negative Negative LAB URINALYSIS - AUTOMATED METHOD 02/04/2024 5:44 PM [facility] Urine Urine specimen obtained by clean catch procedure / Unknown 02/04/2024 1:30 PM EST 02/04/2024 5:12 PM EST us Augustine Dan MD LAB URINE ORDERABLES Final Resul t [facility] ([facility]) [facility] [address] [place] [address], documented in this encounter Visit Diagnoses Diagnosis Dysuria documented in this encounter Care Teams Statistics Tutor Relationship Specialty Start Date End Date Augustine Dan MD [address] [place], [place] PCP - General Internal Medicine 04/21/24 documented as of this encounter
[2024-08-18 16:35] LABS: Anion Gap 12 (12-20); Blood Urea Nitrogen 22 mg/dL (9-16); Calcium 9.1 mg/dL (8.4-10.2); Carbon Dioxide 32 mmol/L (22-29); Chloride 110 mmol/L (96-108); Estimated Glomerular Filt Rate > 60; Potassium 4.6 mmol/L (3.3-5.1); Sodium 149 mmol/L (135-145)
[2024-08-18 16:40] LABS: B Type Natriuretic Peptide 66 pg/mL (<100)
== END 2024-08-18 13:26 | disposition home or self-care (01) ==
LOC: HO.LAB 13:25
PROVIDERS: PCP Hospitalist; Visit Provider Nurse Practitioner Family
DX: I48.91 Unspecified atrial fibrillation (principal); I10 Essential (primary) hypertension; R60.0 Localized edema; E87.0 Hyperosmolality and hypernatremia; Z79.3 Long term (current) use of hormonal contraceptives; Z79.899 Other long term (current) drug therapy; Z79.01 Long term (current) use of anticoagulants
CPT/HCPCS: 36415; 80048; 83880; 93005; 99212

== ENCOUNTER 2024-09-11 09:49 | Emergency (ER) | payer MEDICAID, SELFPAY ==
[2024-09-11 10:23] VITALS: BP 110/50; BP 99/49; PULSE 57; PULSE 64; RESP 18; TEMP 36.6; O2SAT 93; BMI 28.2
[2024-09-11 10:26] VITALS: BP 99/49; PULSE 57; RESP 18; TEMP 36.6; O2SAT 93
--- NOTE | 2024-09-11 10:28 | PC.NURSE ---
Pt comes to ED via EMS from [facility] for concerns of rectal bleeding. Per EMS, Pt with Hx Hemorrhoids, prolapsed colon, and is on Eliquis. Pt reports bleeding began this AM. He denies any new pain, but reports chronic RLQ pains. Pt denies SOB, LEBRON, N/V/D, dizzy/lightheaded; he states he is able to eat like normal Pt is A&Ox3 VSS: BP slightly low. Skin is warm and dry Breaths and speech are even and unlabored. Pt resting quietly at this time Awaiting ED provider.
[2024-09-11 11:12] VITALS: BP 94/53; PULSE 59; RESP 18; TEMP 36.7; O2SAT 96
--- NOTE | 2024-09-11 11:21 | ED_ITS ---
HPI - General Adult General Chief complaint: General Medical Stated complaint: RECTAL BLEEDING ON BLOOD THINNER PER EMS Time Seen by Provider: 09/11/24 11:21 History of Present Illness ED Provider: Frieda HAWKINS narrative: The patient is a 59-year-old male who lives at the [facility]. He has a history of paroxysmal atrial fibrillation and is on apixaban. Today he had some bright red blood per rectum and was sent to the emergency room for evaluation. He has a history of hemorrhoids. He also has a history of prolapse colon. The patient had an outpatient scheduled electrical cardioversion done 2 months ago on August 17 at this hospital. The cardioversion from atrial fibrillation to a sinus rhythm was successful. As far as the patient knows he has remained in a sinus rhythm. He has been on his apixaban since then as well. He denies any abdominal pain associated with the rectal bleeding today. No nausea or vomiting. No hematemesis. No fever, sweats, chills. Related Data Home Medications ?Medication ?Instructions ?Recorded ?Confirmed diazepam 2 mg tablet 2 mg PO TID 11/17/19 5 melatonin 1 mg tablet 1 mg PO BEDTIME 11/17/19 acetaminophen 500 mg tablet 500 mg PO Q6H PRN FEVER/CO LD PAIN 02/13/20 08/18/24 cholecalciferol (vitamin D3) 25 50 mcg PO DAILY 08/18/24 mcg (1,000 unit) tablet pregabalin 100 mg capsule 100 mg PO TID 02/13/2008/18 polyethylene glycol 3350 17 17 g PO BID 03/09/2208/18 gram/dose oral powder (Miralax) divalproex 500 mg tablet,extended 500 mg PO BID 08/18/24 release 24 hr (Depakote ER) aluminum-mag hydroxide-simethicone 30 ml PO Q4H PRN HE ARTBURN OR 05/11/22 08/18/24 200 mg-200 mg-20 mg/5 mL oral susp NAUSEA dextromethorphan-guaifenesin 10 10 ml PO Q4H PRN Cough /congestion 05/11/22 08/18/24 mg-100 mg/5 mL oral syrup (Tussin DM) psyllium 1 packet PO BID 05/11/22 divalproex 250 mg tablet,extended 250 mg PO BID 08/18/24 release 24 hr (Depakote ER) metoprolol succinate 25 mg 25 mg PO BID 02/23/2408/18 tablet,extended release 24 hr midodrine 5 mg tablet 5 mg PO TID@0900,1400,1800 0 02/23/24 08/18/24 nystatin 100,000 unit/gram topical 1 appl topical BID 02/23/24 08/18/24 powder sennosides 8.6 mg-docusate sodium 1 tab-cap PO DAILY C onstipation 02/23/24 08/18/24 50 mg tablet ondansetron 4 mg disintegrating 4 mg PO Q6H PRN NAUSEA , VOMITING 03/20/24 08/18/24 tablet bisacodyl 10 mg rectal suppository 10 mg SC DAILY PRN Constipation 06/06/24 08/18/24 lactulose 10 gram/15 mL oral 30 ml PO DAILY Constipati on 06/06/24 08/18/24 solution sodium phosphates 19 gram-7 118 ml SC DAILY PRN Consti pation 06/06/24 08/18/24 gram/118 mL enema (Fleet Enema) witch monica 20 % topical pads 1 pad topical NEEDED PRN 06/06/24 08/18/24 Hemorrhoids on anus Previous Rx's ?Medication ?Instructions ?Recorded abdominal binder #1 ea 03/21/22 apixaban 5 mg tablet (Eliquis) 5 mg PO BID #0 tabs amoxicillin 875 mg-potassium 1 tab PO BID #6 tabs 0506/29 clavulanate 125 mg tablet Allergies Allergy/AdvReac Type Severity Reaction Status Date / Time aripiprazole (From ABILIFY) Allergy Severe Involuntary Verified 09/11/24 10:25 Spasms droperidol (From INAPSINE) Allergy Severe Involuntary Verified 09/11/24 10:25 Spasms haloperidol (From HALDOL) Allergy Severe Involuntary Verified 09/11/24 10:25 Spasms prochlorperazine (From Allergy Severe Involuntary Verified 09/11/24 10:25 COMPAZINE) Spasms promethazine (From PHENERGAN) Allergy Severe Involuntary Verified 09/11/24 10:25 Spasms sulfamethoxazole (From Allergy Severe Anaphylaxis Verified 09/11/24 10:25 BACTRIM) trimethoprim (From BACTRIM) Allergy Severe Anaphylaxis Verified 09/11/24 10:25 Review of Systems 2 Review of Systems: Yes all other systems are reviewed and are negative [facility] Past Medical History Medical History Encounter for cardioversion procedure Neurogenic bladder Constipation Resides in [facility] facility History of GI bleed Seizure disorder Urinary incontinence Osteoarthritis Rectal prolapse Cognitive impairment Hx of deep venous thrombosis Thrombocytopenia Bilateral cataracts Personal history of COVID-19 Diverticular disease Flexion contractures OCD (obsessive compulsive disorder) History of hemodialysis Depression Neuroleptic malignant syndrome Epilepsy Deformity of left hand Generalized anxiety disorder Major depressive disorder Mild cognitive impairment Hypertension Surgical History History of incisional hernia repair (03/15/22) History of repair of rectocele Hx of appendectomy Hx of colonoscopy Family History Family History Sister Breast CA, Onset Age: 51 Ovarian ca, Onset Age: 55 Father Prostate CA, Onset Age: 70 Mother Colorectal cancer, Onset Age: 39 Kidney carcinoma, Onset Age: 67 Maternal Grandmother Colorectal cancer, Onset Age: 70 Maternal Aunt Colorectal cancer Social History Social History Household Members: Other Household Members Other:: From [facility] [place] [facility] Housing: Penitentiary Housing Other:: patient coming from [facility] Are you a primary care transition mgr to a significant other at home: No Do you presently have visiting nurse or other home services: Yes Unable to assess alcohol history related to: Unable to respond Alcohol intake: never Comment: [facility] Patient Tobacco Use Status: Never used Tobacco Smoked in Last 30 Days: No e-Cigarette/Vaping Use: Never Used Second Hand Smoke Exposure: No Use of substances other than those prescribed or required for medical reasons: No Advance Directives: Yes Advance Directives on File: Yes Advance Directives Date on File: 11/21/19 Do you have a plan to hurt others: No Plan service: No Current occupational status: disabled Physical Exam ED Vital Signs: Vital Signs - 24 hr 09/11/24 10:23 09/11/24 10:26 09/11/24 11:12 Temperature 97.9 F 97.9 F 98.1 F Pulse Rate 57 57 59 Respiratory Rate 18 18 18 Blood Pressure 99/49 L 99/49 L 94/53 L Pulse Oximetry 93 93 96 Oxygen Delivery Method Room Air Room Air Room Air 09/11/24 13:52 09/11/24 16:04 Temperature 97.9 F 97.9 F Pulse Rate 64 64 Respiratory Rate 18 18 Blood Pressure 109/76 109/76 Pulse Oximetry 95 95 Oxygen Delivery Method Room Air Room Air BMI result Body Mass Index 28.2 Const Other: The patient is a chronically ill-appearing 59-year-old male. He is awake and alert. He does not seem in acute distress. HENMT Other: The face is symmetrical. Mucous membranes moist. Eyes Other: Pupils are round equal, conjunctivae are clear, extraocular movements intact Neck Neck: Yes normal visual inspection, Yes full ROM and Yes no lymphadenopathy Resp Effort & Inspection: normal respiratory effort Auscultation: clear to auscultation bilaterally Cardio Rate: regular rate Rhythm: regular rhythm Heart sounds: S1 normal heart sound present and S2 normal heart sound present GI Other: Abdomen is soft and nontender Digital rectal exam revealed external hemorrhoids apparent which were not actively bleeding. Rectal tone was normal. No masses in the rectum. There was no blood in the rectum. Skin Other: The skin is dry and unremarkable Neuro Other: the patient is awake and alert. He has some psychomotor retardation which I think is baseline for him. Pupils are round equal, extraocular movements are intact, face is symmetrical, he moves his extremities symmetrically. I think he is at his neurological baseline. Extrem Other: No pitting edema Medical Decision Making Medical Decision Making MDM Narrative: the patient is a chronically ill 59-year-old who lives at the [facility] chronically. He has a history of atrial fibrillation. Two months ago he had an outpatient electrical cardioversion which was successful. He currently is in sinus rhythm. He is on apixaban. He has a history of rectal prolapse. There is no rectal prolapse present currently. There are external hemorrhoids. He was sent to the emergency room because of bright red blood per rectum. There was no sign of blood in his rectum at the time that I did a digital rectal exam. There was no active bleeding. He does have external hemorrhoids. His vital signs are unremarkable. His hemoglobin today is 12.6 which is a drop from his previous hemoglobin of 15. however his previous hemoglobin is from 3 months ago. He is not showing signs of active bleeding at the moment. He has no associated symptoms of any kind. I suspect his bleeding might be hemorrhoidal. I think holding his apixaban for 3 days would be reasonable. I think he can be further observed at the [facility] facility. I think returning to the facility is reasonable today. Lab Data 09/11/24 11:38 09/11/24 11:38 Labs: Lab Results 09/11/24 Range/Units 11:38 WBC 4.8 (4.8-10.8) X10*3/uL RBC 3.98 L (4.60-5.80) X10*6/uL Hgb 12.6 L (14.0-18.0) g/dl Hct 37.0 L D (42.0-52.0) % MCV 93.0 (80.0-98.0) fL MCH 31.7 (27.0-33.0) pg MCHC 34.1 (31.0-36.0) g/dl RDW 13.5 (11.0-16.0) % Plt Count 91 L (160-400) X10*3/uL MPV 10.6 (9.4-12.4) fL Immature Gran % (Auto) 0.2 (0.0-0.4) % Neut % (Auto) 57.7 (45-73) % Lymph % (Auto) 27.0 (20-40) % [place] % (Auto) 10.3 (2-11) % Eos % (Auto) 4.4 H (0-4) % Baso % (Auto) 0.4 (0-2) % Lymph # (Auto) 1.3 (1.2-4.9) X10*3/uL [place] # (Auto) 0.5 (0.1-1.2) X10*3/uL Eos # (Auto) 0.2 (0.0-0.4) X10*3/uL Baso # (Auto) 0.0 (0.0-0.2) X10*3/uL Abs Immat Gran (auto) 0.01 (0.00-0.03) X10*3/uL Absolute Neuts (auto) 2.8 (2.0-8.3) x10*3/uL Absolute Nucleated RBC 0.000 (0.0-0.012) X10*3/uL Nucleated RBC % (auto) 0.0 (0.0-0.2) /100WBC PT 13.0 H (10.9-12.4) SEC INR 1.1 (0.9-1.1) Sodium 145 (135-145) mmol/L Potassium 4.1 (3.3-5.1) mmol/L Chloride 108 (96-108) mmol/L Carbon Dioxide 31 H (22-29) mmol/L Anion Gap 10 L (12-20) BUN 16 (9-16) mg/dL Creatinine 0.75 (0.5-1.4) mg/dL Estim Creat Clear Calc 108.4 Estimated GFR > 60 Random Glucose 81 (60-115) mg/dL Calcium 8.5 D (8.4-10.2) mg/dL Total Bilirubin 0.4 (0.0-1.0) mg/dL AST 16 (5-37) U/L ALT 6 (0-40) U/L Alkaline Phosphatase 48 (39-117) U/L Total Protein 5.8 L (6.5-8.0) g/dL Albumin 3.3 L (3.5-5.0) g/dL Blood Type O Negative Antibody Screen NEGATIVE Discharge Plan Discharge Clinical Impression: Bright red rectal bleeding Patient Disposition: Xfer LTC Transfer Details: BACK TO [facility] Additional Instructions: I think the bleeding was hemorrhoidal bleeding. There does not seem to active bleeding. I think holding his apixaban (Eliquis) for 3 day s would be reasonable. Please have him follow-up with his PCP. Return to the ER if worse. Prescriptions: No Action (DME) abdominal binder 2xl See Rx Instructions .Route .MEDSUPPLY Qty: 1 0RF Rx Instructions: Pt to wear binder during daytime hours - may remove for shower diazepam 2 mg Tablet 2 mg PO TID melatonin 1 mg Tablet 1 mg PO BEDTIME acetaminophen 500 mg Tablet 500 mg PO Q6H MDD 3g PRN (Reason: FEVER/MILD PAIN) pregabalin 100 mg Capsule 100 mg PO TID cholecalciferol (vitamin D3) 25 mcg (1,000 unit) Tablet 50 mcg PO DAILY polyethylene glycol 3350 [Miralax] 17 gram/dose powder 17 g PO BID Rx Instructions: dilute in 6-8 ounces of fluid sennosides-docusate sodium 8.6-50 mg Tablet 1 tab-cap PO DAILY midodrine 5 mg Tablet 5 mg PO TID@0900,1400,1800 Rx Instructions: do not give last dose of day after 6PM or within 4 hrs of bedtime metoprolol succinate 25 mg Tablet Extended Release 24 Hr 25 mg PO BID Protocol: Hold for SBP/HR < HOLD for SBP < : 100 HOLD for HR < : 60 nystatin 100,000 unit/gram Powder 1 appl TOPICAL BID Rx Instructions: to groin and groin creases divalproex [Depakote ER] 250 mg Tablet Extended Release 24 Hr 250 mg PO BID Rx Instructions: with 500 mg = 750mg bid bisacodyl 10 mg Suppository 10 mg SC DAILY PRN (Reason: Constipation) Rx Instructions: if senna infective Fleet Enema 19-7 gram/118 mL Enema 118 ml SC DAILY PRN (Reason: Constipation) Rx Instructions: if bisacodyl ineffective lactulose 10 gram/15 mL Solution 30 ml PO DAILY witch monica 20 % Pads, Medicated 1 pad TOPICAL NEEDED PRN (Reason: Hemorrhoids on anus) amoxicillin-pot clavulanate 875-125 mg Tablet 1 tab PO BID Qty: 6 0RF psyllium Packet 1 packet PO BID dextromethorphan-guaifenesin [Tussin DM] 10-100 mg/5 mL Syrup 10 ml PO Q4H PRN (Reason: Cough/congestion) alum-mag hydroxide-simeth 200-200-20 mg/5 mL Suspension 30 ml PO Q4H PRN (Reason: HEARTBURN OR NAUSEA) Rx Instructions: administer between meals and at bedtime ondansetron 4 mg Tablet,Disintegrating 4 mg PO Q6H PRN (Reason: NAUSEA, VOMITING) Eliquis 5 mg Tablet 5 mg PO BID Qty: 0 0RF divalproex [Depakote ER] 500 mg tablet extended release 24 hr 500 mg PO BID Rx Instructions: with 250 mg = 750mg bid Referrals: Augustine Dan DO [Primary Care Provider, Internal Medicine] Interventions: ED Discharge Assessment Last Done: 09/11/24 16:04 Discharge Date/Time: 09/11/24 16:16 Print Language: Uzbek
--- NOTE | 2024-09-11 11:45 | ECG_ITS ---
Test Reason : RECTAL BLEED Blood Pressure : */* mmHG Vent. Rate : 52 BPM Atrial Rate : 52 BPM P-R Int : 174 ms QRS Dur : 72 ms QT Int : 412 ms P-R-T Axes : 90 -9 51 degrees QTcB Int : 383 ms Artifact in tracing Sinus bradycardia Low voltage QRS cannot exclude old Septal infarct , age undetermined Abnormal ECG When compared with ECG of 18-Jul-2024 09:57, DC interval has decreased possible Septal infarct is now Present Referred By: Flaquito Malave Electronically Signed By: ECHO MADRIGAL
[2024-09-11 11:47] LABS: MANUAL DIFF FLAG NO
--- OUTSIDE RECORDS SUMMARY | 2024-09-11 11:51 | XMS_ITS | Encounter Summary ---
Author Organization [employer] Address [address] [place] [address] Care Team Providers Care Oxygen Equipment Technician Name Role Phone Augustine Dan MD Primary Care Provider [phone] Encounter Details Date Type Department Care Team (Late st Contact Info) Description 02/04/2024 Lab Requisition [facility] - Main Lab [address] [place] [address] Augustine Dan MD [address] [place] [address] Dr [address] KALANI Camacho Dysuria Social [...] Hold for add-ons. 02/04/2024 7:02 PM EST [facility] Comment:Auto resulted. Urine Urine specimen obtained by clean catch procedure / Unknown 02/04/2024 1:30 PM EST 02/04/2024 5:27 PM EST us Augustine Dan MD LAB URINE ORDERABLES Final Resul t [facility] [address] [place] [address], * Urinalysis with reflex microscopic and culture (02/04/2024 1:30 PM EST) Specific [place] Urine 1.015 1.003 - 1.030 LAB URINALYSIS - AUTOMATED METHOD 02/04/2024 5:44 PM [facility] pH, Urine 7.5 5.0 - 8.0 pH LAB URINALYSIS - AUTOMATED METHOD 02/04/2024 5:44 PM [facility] Leukocytes, Urine Negative Negative LAB URINALYSIS - AUTOMATED METHOD 02/04/2024 5:44 PM [facility] Nitrite, Urine Negative Negative LAB URINALYSIS - AUTOMATED METHOD 02/04/2024 5:44 PM [facility] Protein, Urine Negative <=Trace mg/dL LAB URINALYSIS - AUTOMATED METHOD 02/04/2024 5:44 PM [facility] Glucose, Urine Negative Negative mg/dL LAB URINALYSIS - AUTOMATED METHOD 02/04/2024 5:44 PM [facility] Ketones, Urine Negative Negative mg/dL LAB URINALYSIS - AUTOMATED METHOD 02/04/2024 5:44 PM [facility] Urobilinogen, Urine 0.2 0.2 - 1.0 mg/dL LAB URINALYSIS - AUTOMATED METHOD 02/04/2024 5:44 PM [facility] Bilirubin, Urine Negative Negative LAB URINALYSIS - AUTOMATED METHOD 02/04/2024 5:44 PM [facility] Blood, Urine Negative Negative LAB URINALYSIS - AUTOMATED METHOD 02/04/2024 5:44 PM [facility] Urine Urine specimen obtained by clean catch procedure / Unknown 02/04/2024 1:30 PM EST 02/04/2024 5:12 PM EST us Augustine Dan MD LAB URINE ORDERABLES Final Resul t [facility] ([facility]) [facility] [address] [place] [address], documented in this encounter Visit Diagnoses Diagnosis Dysuria documented in this encounter Care Teams Oxygen Equipment Technician Relationship Specialty Start Date End Date Augustine Dan MD [address] [place], [place] PCP - General Internal Medicine 04/21/24 documented as of this encounter
--- OUTSIDE RECORDS SUMMARY | 2024-09-11 11:51 | XMS_ITS | Clinical Summary ---
Author Organization [facility] Address [address] [place] [address] Care Team Providers Care Building Maintenance Technician Name Role Phone Unavailable Primary Care Provider [...]
[2024-09-11 11:56] LABS: Hematocrit 37.0 % (42.0-52.0); Hemoglobin 12.6 g/dl (14.0-18.0); Imm Gran Abs Auto 0.01 X10*3/uL (0.00-0.03); Imm Gran Pct Auto 0.2 % (0.0-0.4); Lymphocytes Absolute Auto 1.3 X10*3/uL (1.2-4.9); Mean Corpuscular HGB Conc 34.1 g/dl (31.0-36.0); Mean Corpuscular Hemoglobin 31.7 pg (27.0-33.0); Mean Corpuscular Volume 93.0 fL (80.0-98.0); NRBC Abs Auto 0.000 X10*3/uL (0.0-0.012); NRBC Pct Auto 0.0 /100WBC (0.0-0.2); Red Blood Count 3.98 X10*6/uL (4.60-5.80); White Blood Count 4.8 X10*3/uL (4.8-10.8)
[2024-09-11 11:57] LABS: Platelet Count 91 X10*3/uL (160-400)
[2024-09-11 12:04] LABS: INTERNATIONAL NORM RATIO 1.1 (0.9-1.1); Prothrombin Time 13.0 SEC (10.9-12.4)
[2024-09-11 12:05] LABS: Alanine Aminotransferase 6 U/L (0-40); Albumin Level 3.3 g/dL (3.5-5.0); Alkaline Phosphatase 48 U/L (39-117); Anion Gap 10 (12-20); Aspartate Amino Transferase 16 U/L (5-37); Blood Urea Nitrogen 16 mg/dL (9-16); Calcium 8.5 mg/dL (8.4-10.2); Carbon Dioxide 31 mmol/L (22-29); Chloride 108 mmol/L (96-108); Creatinine Clr Calc Pharmacy 108.4; Estimated Glomerular Filt Rate > 60; Potassium 4.1 mmol/L (3.3-5.1); Sodium 145 mmol/L (135-145); Total Protein 5.8 g/dL (6.5-8.0)
[2024-09-11 13:52] VITALS: BP 109/76; PULSE 64; RESP 18; TEMP 36.6; O2SAT 95
--- NOTE | 2024-09-11 15:40 | PC.NURSE ---
Call place [facility]. RN to RN report completed with GILBERTO Rubin. Caryn given opportunity for questions, no questions at this time. Pt will be transported back to [facility] via [facility] vehicle.
[2024-09-11 16:04] VITALS: BP 109/76; PULSE 64; RESP 18; TEMP 36.6; O2SAT 95
== END 2024-09-11 16:16 ==
PROVIDERS: Physician Assistant Medical; Emergency Provider Emergency Medicine; PCP Hospitalist
DX: K62.5 Hemorrhage of anus and rectum (principal); I48.0 Paroxysmal atrial fibrillation; I10 Essential (primary) hypertension; G40.909 Epilepsy, unspecified, not intractable, without status epilepticus; Z79.01 Long term (current) use of anticoagulants; Z87.19 Personal history of other diseases of the digestive system; Z79.899 Other long term (current) drug therapy
CPT/HCPCS: 36415; 80053; 85025; 85610; 86850; 86900; 86901; 93005; 99283; 99284

== ENCOUNTER → 2024-09-11 11:45 | Outpatient (BNV) | payer MEDICAID, SELFPAY | PROVIDERS: Emergency Provider Emergency Medicine; PCP Hospitalist; Visit Provider Internal Medicine | DX: R00.1 Bradycardia, unspecified (principal) | CPT/HCPCS: 93010 ==

== ENCOUNTER 2024-09-13 18:32 | Inpatient (IN) | payer MEDICAID, SELFPAY ==
[2024-09-13] VITALS (8 sets, daily range): BP systolic 92–150; BP diastolic 42–94; PULSE 58–116; RESP 16–26; TEMP 37.4–38.6; O2SAT 90–95; BMI 36.6
--- NOTE | ~2024-09-13 | CT_ITS ---
CLINICAL HISTORY: altered mental status on anticoagulant CT head without contrast Comparison: CT/CA/SR - CT HEAD WITHOUT IV CONTRAST - 04/22/22 21:58 EDT Findings: No acute intracranial hemorrhage, transcortical infarct or mass effect. Enlarged lateral and 3rd ventricles, similar to prior. Intracranial atherosclerosis. The visualized paranasal sinuses and mastoid air cells are normal. The orbits are within normal limits. There is no acute fracture. IMPRESSION: 1. No acute intracranial findings. 2. Stable enlargement of the lateral and 3rd ventricles when compared to 04/22/2022. This document has been electronically signed by: Claudia Welch MD on 09/13/2024 19:22:25
--- NOTE | ~2024-09-13 | XR_ITS ---
CLINICAL HISTORY: fever 1 view chest x-ray Comparison: CR/SR - XR CHEST 1 VIEW - 06/06/24 14:[address]/SR - CT ANGIO CHEST PE PROTOCOL - 03/20/24 19:43 EST Findings: Medial right basilar opacity may be atelectasis or pneumonia. No large effusion or pneumothorax. Heart size is normal. No acute fracture. IMPRESSION: Medial right basilar opacity may be atelectasis or pneumonia. This document has been electronically signed by: Claudia Welch MD on 09/13/2024 19:18:30
--- NOTE | ~2024-09-13 | CT_ITS ---
CLINICAL HISTORY: fever, vomiting, diffue abdo tenderness CT abdomen and pelvis with contrast Comparison: CT/REG/SR - CT ABDOMEN PELVIS W IV CON - 03/09/23 15:57 EST Findings: Lungs demonstrate dependent atelectasis. Hepatic parenchyma is normal. Gallbladder is distended. Spleen is normal. Pancreas is normal. Stomach is decompressed. Adrenal glands are normal. Kidneys are normal. No renal lithiasis or ureteral lithiasis. No small bowel dilatation. Moderate stool burden in the large bowel. No pneumatosis or pneumoperitoneum. There is diverticulosis without evidence of diverticulitis. Appendix is normal. There is a moderate stool burden in the rectum and sigmoid. Vascular enhancement is normal. No anterior abdominal wall or inguinal hernia. Bladder is distended. Prostatic hypertrophy is present. Moderate degenerative disc disease at L5/S1. IMPRESSION: No acute intra-abdominal or pelvic findings. Diverticulosis without diverticulitis. This document has been electronically signed by: Hero Fuller III, MD PHD on 09/13/2024 23:07:55
--- NOTE | 2024-09-13 18:36 | ED.GENADULT ---
HPI - General Adult General Chief complaint: Altered Mental Status Stated complaint: weakness right sided, facial droop Time Seen by Provider: 09/13/24 18:36 History of Present Illness ED Provider: Frieda HAWKINS narrative: The patient is a chronically ill 59-year-old who was a long-term patient at the [facility]. According to the nursing staff at the facility the patient started to seem unwell at around 13:00 today. He seemed to be shaking in his bed and he seemed to be sleepier than usual. He was checked for a fever but initially did not seem to have a fever. These symptoms seemed to persist and ultimately he was found to have a temperature of 102.3 degrees F. at that point they called an ambulance and he was brought to the hospital. He vomited with paramedics. The patient is awake but seems very sleepy. I think he has a somewhat unusual demeanor at baseline. He is able to answer very simple questions. He says he does not feel well but can not really characterize in what way he does not feel well. He denies headache, he denies chest pain, he denies abdominal pain. Paramedics felt that he might have a right facial droop and right facial weakness but I do not appreciate that on my initial exam. Related Data Home Medications ?Medication ?Instructions ?Recorded ?Confirmed diazepam 2 mg tablet 2 mg PO TID 11/17/19 08/18/24 melatonin 1 mg tablet 1 mg PO BEDTIME 11/17/19 08/18/24 acetaminophen 500 mg tablet 500 mg PO Q6H PRN FEVER/MILD PAIN 02/13/20 08/18/24 cholecalciferol (vitamin D3) 25 50 mcg PO DAILY 02/13/20 08/18/24 mcg (1,000 unit) tablet pregabalin 100 mg capsule 100 mg PO TID 02/13/20 08/18/24 polyethylene glycol 3350 17 17 g PO BID 03/09/22 08/18/24 gram/dose oral powder (Miralax) divalproex 500 mg tablet,extended 500 mg PO BID 04/20/22 08/18/24 release 24 hr (Depakote ER) aluminum-mag hydroxide-simethicone 30 ml PO Q4H PRN HEARTBURN OR 05/11/22 08/18/24 200 mg-200 mg-20 mg/5 mL oral susp NAUSEA dextromethorphan-guaifenesin 10 10 ml PO Q4H PRN Cough/congestion 05/11/22 08/18/24 mg-100 mg/5 mL oral syrup (Tussin DM) psyllium 1 packet PO BID 05/11/22 08/18/24 divalproex 250 mg tablet,extended 250 mg PO BID 02/23/24 08/18/24 release 24 hr (Depakote ER) metoprolol succinate 25 mg 25 mg PO BID 02/23/24 08/18/24 tablet,extended release 24 hr midodrine 5 mg tablet 5 mg PO TID@0900,1400,1800 02/23/24 08/18/24 nystatin 100,000 unit/gram topical 1 appl topical BID 02/23/24 08/18/24 powder sennosides 8.6 mg-docusate sodium 1 tab-cap PO DAILY Constipation 02/23/24 08/18/24 50 mg tablet ondansetron 4 mg disintegrating 4 mg PO Q6H PRN NAUSEA, VOMITING 03/20/24 08/18/24 tablet bisacodyl 10 mg rectal suppository 10 mg OR DAILY PRN Constipation 06/06/24 08/18/24 lactulose 10 gram/15 mL oral 30 ml PO DAILY Constipation 06/06/24 08/18/24 solution sodium phosphates 19 gram-7 118 ml OR DAILY PRN Constipation 06/06/24 08/18/24 gram/118 mL enema (Fleet Enema) witch monica 20 % topical pads 1 pad topical NEEDED PRN 06/06/24 08/18/24 Hemorrhoids on anus Previous Rx's ?Medication ?Instructions ?Recorded abdominal binder #1 ea 03/21/22 apixaban 5 mg tablet (Eliquis) 5 mg PO BID #0 tabs 03/23/24 amoxicillin 875 mg-potassium 1 tab PO BID #6 tabs 06/09/24 clavulanate 125 mg tablet Allergies Allergy/AdvReac Type Severity Reaction Status Date / Time aripiprazole (From ABILIFY) Allergy Severe Involuntary Verified 09/13/24 19:04 Spasms droperidol (From INAPSINE) Allergy Severe Involuntary Verified 09/13/24 19:04 Spasms haloperidol (From HALDOL) Allergy Severe Involuntary Verified 09/13/24 19:04 Spasms prochlorperazine (From Allergy Severe Involuntary Verified 09/13/24 19:04 COMPAZINE) Spasms promethazine (From PHENERGAN) Allergy Severe Involuntary Verified 09/13/24 19:04 Spasms sulfamethoxazole (From Allergy Severe Anaphylaxis Verified 09/13/24 19:04 BACTRIM) trimethoprim (From BACTRIM) Allergy Severe Anaphylaxis Verified 09/13/24 19:04 Review of Systems Review of Systems: Yes all other systems are reviewed and are negative [facility] Past Medical History Medical History Encounter for cardioversion procedure Neurogenic bladder Constipation [facility]ides in jail facility History of GI bleed Seizure disorder Urinary incontinence Osteoarthritis Rectal prolapse Cognitive impairment Hx of deep venous thrombosis Thrombocytopenia Bilateral cataracts Personal history of COVID-19 Diverticular disease Flexion contractures OCD (obsessive compulsive disorder) History of hemodialysis Depression Neuroleptic malignant syndrome Epilepsy Deformity of left hand Generalized anxiety disorder Major depressive disorder Mild cognitive impairment Hypertension Surgical History History of incisional hernia repair (03/15/22) History of repair of rectocele Hx of appendectomy Hx of colonoscopy Family History Family History Sister Breast CA, Onset Age: 51 Ovarian ca, Onset Age: 55 Father Prostate CA, Onset Age: 70 Mother Colorectal cancer, Onset Age: 39 Kidney carcinoma, Onset Age: 67 Maternal Grandmother Colorectal cancer, Onset Age: 70 Maternal Aunt Colorectal cancer Social History Social History Household Members: Other Household Members Other:: From [facility] Facility Housing: Half-Way Housing Other:: patient [facility] Are you a primary auto care center manager to a significant other at home: No Do you presently have visiting nurse or other home services: Yes Unable to assess alcohol history related to: Unable to respond Alcohol intake: never Comment: [facility] Patient Tobacco Use Status: Never used Tobacco Smoked in Last 30 Days: No e-Cigarette/Vaping Use: Never Used Second Hand Smoke Exposure: No Use of substances other than those prescribed or required for medical reasons: No Advance Directives: Yes Advance Directives on File: Yes Advance Directives Date on File: 11/21/19 Do you have a plan to hurt others: No Plan Nutrition Risks: On aspiration precautions service: No Current occupational status: disabled Physical Exam ED Vital Signs: Vital Signs - 24 hr 09/13/24 19:03 09/13/24 19:48 09/13/24 20:03 Temperature 101.4 F H Pulse Rate 116 H 62 58 Respiratory Rate 16 Blood Pressure 112/94 H 92/49 L 97/42 L Pulse Oximetry Oxygen Delivery Method Room Air 09/13/24 20:41 09/13/24 22:04 09/13/24 23:04 Temperature 99.3 F Pulse Rate 69 68 Respiratory Rate 19 26 H Blood Pressure 109/59 L 101/57 L Pulse Oximetry 95 Oxygen Delivery Method Room Air 09/13/24 23:26 Temperature Pulse Rate Respiratory Rate Blood Pressure 100/62 Pulse Oximetry Oxygen Delivery Method BMI result Body Mass Index 36.6 Const Other: The patient is a chronically ill-appearing 59-year-old who was initially awake but seemed tired. He seemed to have a lot of shaking in his arms bilaterally. He did not seem to be seizing. No increased work of breathing. He did not seem in obvious pain. HENMT Other: The patient had some signs of emesis on his chin. His airway was clear. Pharynx was unremarkable. Mucous membranes moist. Face is symmetrical. Eyes Other: Pupils are round equal, conjunctivae are clear, extraocular movements intact Neck Neck: Yes normal visual inspection, Yes full ROM, Yes no lymphadenopathy and Yes no JVD Resp Effort & Inspection: normal respiratory effort Auscultation: clear to auscultation bilaterally Cardio Rate: regular rate Rhythm: regular rhythm Heart sounds: S1 normal heart sound present and S2 normal heart sound present GI Other: Abdomen was soft. Possibly some mild right upper quadrant tenderness but this was an equivocal finding. Skin Other: Skin is pale and dry Neuro Other: The patient seemed fatigued but would make eye contact with loud verbal stimuli. He seemed diffusely weak. Cranial nerves were intact. Tone in his extremities was symmetrical. He was able to move all extremities but seemed quite weak. Extrem Other: No calf tenderness or asymmetry. Medications Administered Discontinued Medications Generic Name Dose Route Start Last Admin Trade Name Freq PRN Reason Stop Dose Admin Sodium Chloride 1,000 mls @ 999 mls/hr 09/13/24 19:30 09/13/24 20:37 Ns IV 09/13/24 20:30 Infused .Q1H1M MAIA Infusion Piperacillin Sod/Tazobactam 100 mls @ 200 mls/hr 09/13/24 19:33 09/13/24 20:37 Sod 4.5 gm/ Sodium Chloride IV 09/13/24 20:02 Infused ONCE ONE Infusion Sodium Chloride 1,000 mls @ 999 mls/hr 09/13/24 20:30 09/13/24 21:40 Ns IV 09/13/24 21:30 Infused .Q1H1M MAIA Infusion Acetaminophen 1,000 mg in 100 mls @ 400 mls/hr 09/13/24 21:11 09/13/24 22:30 Ofirmev IV 09/13/24 21:25 Infused ONCE ONE Infusion Lactated Ringer's 1,000 mls @ 999 mls/hr 09/13/24 22:15 09/13/24 23:10 Lr IV 09/13/24 23:15 999 mls/hr .Q1H1M MAIA Administration Iohexol 100 ml 09/13/24 21:50 09/13/24 21:50 Iohexol 350 Mg/Ml 100 Ml Infus..Btl IV 09/13/24 21:51 100 ml ONCE ONE Administration Midodrine 10 mg 09/13/24 23:11 09/13/24 23:26 Midodrine Hcl 10 Mg Tablet PO 09/13/24 23:12 10 mg ONCE ONE Administration Medical Decision Making Medical Decision Making [facility] Narrative: The patient is a 59-year-old male who was sent to the emergency room from the [facility] facility where he lives chronically with a fever and a diminished level of alertness. He seems quite fatigued but was able to answer very simple questions. He had no significant headache or chest pain or significant abdominal pain. His temperature was 102 [facility] the jail, 101.4 here. Source of his fever is not entirely clear. Chest x-ray potentially shows findings of an infiltrate but there was no description of a lot of coughing when I spoke to the nurse at the jail. His urinalysis is unremarkable. Since he had vomited and possibly had some mild abdominal tenderness I obtained a CT of the abdomen and pelvis to look for a possible source of fever although the patient was not complaining of any significant abdominal pain. The patient has been treated empirically with the IV antibiotics and fluids. His lactate is normal. I do not think he is showing signs of christiane sepsis. The patient seems to usually run low blood pressures. He was here 2 days ago for a question of a GI bleed. His blood pressures were relatively low at that visit as well. (his hemoglobin is higher today than it was 2 days ago). My overall assessment is that the patient might have an aspiration pneumonia. The patient was given Zosyn in the emergency room. He was given IV fluids. He will be admitted to the hospitalist service. Lab Data 09/13/24 19:16 09/13/24 19:16 Labs: Lab Results 09/13/24 09/13/24 09/13/24 Range/Units 19:16 19:23 19:30 WBC 8.2 (4.8-10.8) X10*3/uL RBC 4.34 L (4.60-5.80) X10*6/uL Hgb 13.5 L (14.0-18.0) g/dl Hct 39.5 L (42.0-52.0) % MCV 91.0 (80.0-98.0) fL MCH 31.1 (27.0-33.0) pg MCHC 34.2 (31.0-36.0) g/dl RDW 13.3 (11.0-16.0) % Plt Count 84 L (160-400) X10*3/uL MPV 11.0 (9.4-12.4) fL Immature Gran % (Auto) 0.5 H (0.0-0.4) % Neut % (Auto) 84.2 H (45-73) % Lymph % (Auto) 8.8 L (20-40) % [place] % (Auto) 6.2 (2-11) % Eos % (Auto) 0.2 (0-4) % Baso % (Auto) 0.1 (0-2) % Lymph # (Auto) 0.7 L (1.2-4.9) X10*3/uL [place] # (Auto) 0.5 (0.1-1.2) X10*3/uL Eos # (Auto) 0.0 (0.0-0.4) X10*3/uL Baso # (Auto) 0.0 (0.0-0.2) X10*3/uL Abs Immat Gran (auto) 0.04 H (0.00-0.03) X10*3/uL Absolute Neuts (auto) 6.9 (2.0-8.3) x10*3/uL Absolute Nucleated RBC 0.000 (0.0-0.012) X10*3/uL Nucleated RBC % (auto) 0.0 (0.0-0.2) /100WBC Smear Tech's Comments VERIFIED PT 12.7 H (10.9-12.4) SEC INR 1.1 (0.9-1.1) VBG pH 7.46 H (7.32-7.43) VBG pCO2 46 mmHg VBG pO2 90 mmHg VBG HCO3 33 H (22-26) mmol/L VBG O2 Saturation 99.0 % VBG Base Excess 8.5 mmol/L Sodium 140 (135-145) mmol/L Potassium 3.8 (3.3-5.1) mmol/L Chloride 103 (96-108) mmol/L Carbon Dioxide 29 (22-29) mmol/L Anion Gap 12 (12-20) BUN 18 H (9-16) mg/dL Creatinine 0.80 (0.5-1.4) mg/dL Estim Creat Clear Calc 104.4 Estimated GFR > 60 Random Glucose 103 (60-115) mg/dL Lactic Acid 1.2 (0.5-2.0) mmol/L Calcium 8.7 (8.4-10.2) mg/dL Magnesium 1.8 (1.6-2.6) mg/dL Total Bilirubin 0.7 (0.0-1.0) mg/dL Direct Bilirubin 0.3 (0.0-0.5) mg/dL AST 20 (5-37) U/L ALT 7 (0-40) U/L Alkaline Phosphatase 51 (39-117) U/L C-Reactive Protein 1.10 H (< or = 0.50) mg/dL Total Protein 6.6 (6.5-8.0) g/dL Albumin 3.8 (3.5-5.0) g/dL Lipase 6 L (8-78) U/L Urine Color Urine Appearance Urine pH (5.0-9.0) Ur Specific [place] (1.005-1.025) Urine Protein (Neg-Trace) mg/dL Urine Glucose (UA) (Negative) mg/dL Urine Ketones (Negative) mg/dL Urine Blood (Negative) Urine Nitrite (Negative) Ur Leukocyte Esterase (Negative) Urine RBC (0-2) /HPF Urine WBC (0-5) /HPF Ur Squamous Epith Cells (0-2) /HPF Urine Bacteria (None Seen) Hyaline Casts (0-2) /LPF Valproic Acid (50.0-100.0) mcg/mL Influenza Type A (PCR) NEGATIVE (Negative) Influenza Type B (PCR) NEGATIVE (Negative) RSV RNA Qual (PCR) NEGATIVE (Negative) SARS-CoV-2 RNA (RT-PCR) NEGATIVE (Negative) 09/13/24 09/13/24 Range/Units 19:36 22:03 WBC (4.8-10.8) X10*3/uL RBC (4.60-5.80) X10*6/uL Hgb (14.0-18.0) g/dl Hct (42.0-52.0) % MCV (80.0-98.0) fL MCH (27.0-33.0) pg MCHC (31.0-36.0) g/dl RDW (11.0-16.0) % Plt Count (160-400) X10*3/uL MPV (9.4-12.4) fL Immature Gran % (Auto) (0.0-0.4) % Neut % (Auto) (45-73) % Lymph % (Auto) (20-40) % [place] % (Auto) (2-11) % Eos % (Auto) (0-4) % Baso % (Auto) (0-2) % Lymph # (Auto) (1.2-4.9) X10*3/uL [place] # (Auto) (0.1-1.2) X10*3/uL Eos # (Auto) (0.0-0.4) X10*3/uL Baso # (Auto) (0.0-0.2) X10*3/uL Abs Immat Gran (auto) (0.00-0.03) X10*3/uL Absolute Neuts (auto) (2.0-8.3) x10*3/uL Absolute Nucleated RBC (0.0-0.012) X10*3/uL Nucleated RBC % (auto) (0.0-0.2) /100WBC Smear Tech's Comments PT (10.9-12.4) SEC INR (0.9-1.1) VBG pH (7.32-7.43) VBG pCO2 mmHg VBG pO2 mmHg VBG HCO3 (22-26) mmol/L VBG O2 Saturation % VBG Base Excess mmol/L Sodium (135-145) mmol/L Potassium (3.3-5.1) mmol/L Chloride (96-108) mmol/L Carbon Dioxide (22-29) mmol/L Anion Gap (12-20) BUN (9-16) mg/dL Creatinine (0.5-1.4) mg/dL Estim Creat Clear Calc Estimated GFR Random Glucose (60-115) mg/dL Lactic Acid (0.5-2.0) mmol/L Calcium (8.4-10.2) mg/dL Magnesium (1.6-2.6) mg/dL Total Bilirubin (0.0-1.0) mg/dL Direct Bilirubin (0.0-0.5) mg/dL AST (5-37) U/L ALT (0-40) U/L Alkaline Phosphatase (39-117) U/L C-Reactive Protein (< or = 0.50) mg/dL Total Protein (6.5-8.0) g/dL Albumin (3.5-5.0) g/dL Lipase (8-78) U/L Urine Color Yellow Urine Appearance Clear Urine pH 8.5 (5.0-9.0) Ur Specific [place] 1.015 (1.005-1.025) Urine Protein Negative (Neg-Trace) mg/dL Urine Glucose (UA) Negative (Negative) mg/dL Urine Ketones Trace (Negative) mg/dL Urine Blood Negative (Negative) Urine Nitrite Negative (Negative) Ur Leukocyte Esterase Trace H (Negative) Urine RBC 0-2 (0-2) /HPF Urine WBC 0-5 (0-5) /HPF Ur Squamous Epith Cells 0-2 (0-2) /HPF Urine Bacteria None Seen (None Seen) Hyaline Casts 0-2 (0-2) /LPF Valproic Acid 69.3 (50.0-100.0) mcg/mL Influenza Type A (PCR) (Negative) Influenza Type B (PCR) (Negative) RSV RNA Qual (PCR) (Negative) SARS-CoV-2 RNA (RT-PCR) (Negative) Independent Interpretation I performed an independent interpretation of an: EKG Interpretation: An initial EKG has been done at 19:06. This EKG was uninterpretable because of excess artifact. Another EKG was done at 23:48 which showed sinus rhythm with premature atrial complexes at 61 beats per minute. I felt this was a normal EKG. Discharge Plan Discharge Clinical Impression: Fever, Vomiting Patient Disposition: Admitted As Inpatient Print Language: Irish
--- NOTE | 2024-09-13 18:39 | ECG_ITS ---
Test Reason : WEAKNESS, AMS Blood Pressure : */* mmHG Vent. Rate : 94 BPM Atrial Rate : 76 BPM P-R Int : * ms QRS Dur : 80 ms QT Int : 690 ms P-R-T Axes : * -4 -50 degrees QTcB Int : 862 ms Artifact in tracing Undetermined rhythm due to quality, cannot interpret study. When compared with ECG of 11-Sep-2024 11:50, due to poor quality, cannot compare Referred By: Flaquito Malave Electronically Signed By: ECHO MADRIGAL
[2024-09-13 19:33] LABS: Venous Blood Gas Refer to POC result
[2024-09-13 19:35] LABS: VBG HCO3 33 mmol/L (22-26); VBG O2 % Saturation 99.0 %
[2024-09-13 19:38] LABS: INTERNATIONAL NORM RATIO 1.1 (0.9-1.1); Prothrombin Time 12.7 SEC (10.9-12.4)
[2024-09-13 19:40] LABS: Hemoglobin 13.5 g/dl (14.0-18.0); NRBC Abs Auto 0.000 X10*3/uL (0.0-0.012); NRBC Pct Auto 0.0 /100WBC (0.0-0.2); PLT CLUMP 1; SCAN SMEAR FLAG 1
[2024-09-13 19:42] LABS: Hematocrit 39.5 % (42.0-52.0); Imm Gran Abs Auto 0.04 X10*3/uL (0.00-0.03); Imm Gran Pct Auto 0.5 % (0.0-0.4); Lymphocytes Absolute Auto 0.7 X10*3/uL (1.2-4.9); MANUAL DIFF FLAG SCAN; Mean Corpuscular HGB Conc 34.2 g/dl (31.0-36.0); Mean Corpuscular Hemoglobin 31.1 pg (27.0-33.0); Mean Corpuscular Volume 91.0 fL (80.0-98.0); Red Blood Count 4.34 X10*6/uL (4.60-5.80)
--- NOTE | 2024-09-13 19:43 | PC.NURSE ---
BUCK from [facility] for evaluation of fever (102), unsteady and shakiness for approx 1-4 hours per EMS. R sided general weakness. CT scan completed, 20 G IV line established in L AC, labs drawen and sent to lab, urine sample obtained via straight cath and sent to lab, bolus of 1 L NS hung and infusing w/o issues. Patient is alert and oriented x3 at present and noted to answer questions appropriately. Patient oriented to ED room, call jones placed within patient's reeach,
[2024-09-13 19:45] LABS: Appearance Urine Clear; Glucose Urine UA Negative (Negative); PH 8.5 (5.0-9.0); Specific Gravity - Urine 1.015 (1.005-1.025); UMIC TRIGGER UACC YES
[2024-09-13 19:47] LABS: White Blood Count 8.2 X10*3/uL (4.8-10.8)
[2024-09-13 19:48] LABS: Platelet Count 84 X10*3/uL (160-400)
[2024-09-13 19:49] LABS: Alanine Aminotransferase 7 U/L (0-40); Albumin Level 3.8 g/dL (3.5-5.0); Alkaline Phosphatase 51 U/L (39-117); Anion Gap 12 (12-20); Aspartate Amino Transferase 20 U/L (5-37); Blood Urea Nitrogen 18 mg/dL (9-16); Calcium 8.7 mg/dL (8.4-10.2); Carbon Dioxide 29 mmol/L (22-29); Chloride 103 mmol/L (96-108); Creatinine Clr Calc Pharmacy 104.4; Estimated Glomerular Filt Rate > 60; Lipase 6 U/L (8-78); Magnesium 1.8 mg/dL (1.6-2.6); Potassium 3.8 mmol/L (3.3-5.1); Sodium 140 mmol/L (135-145); Total Protein 6.6 g/dL (6.5-8.0)
--- OUTSIDE RECORDS SUMMARY | 2024-09-13 19:52 | XMS_ITS ---
Author Organization [facility] Care Team Providers Care Risk Analyst Name Role Phone Christopher David Unavailable Unavailable Collin Hurtado Unavailable Unavailable [facility] Unavailable Unavailable Soren Antony Unavailable Unavailable Augustine Dan Unavailable Unavailable Caryn Johansen Unavailable Unavailable Garett Cervantes Unavailable Unavailable Allergies and adverse reactions Code CodeSystem Substance Reaction Severity StartDate Concern Status 509774122 SNOMED CT Sulfa Antibiotics Unknown 02/15/2020 active Phenergan Unknown 04/06/2016 active Inapsine Unknown 04/06/2016 active Haldol Unknown 04/06/2016 active Compazine Unknown 04/06/2016 active Bactrim Unknown 04/06/2016 active Abilify Unknown 04/06/2016 active Care Team Name Role Address Phone Organization Dates Augustine Dan PCP [address] [facility], [place], [address], [place] (Office): : [facility] 03/16/2023 - present Christopher David [address] [place] [address] [place], [address], [facility] (Office): : [facility] 03/16/2023 - present Collin Hurtado [address] [place], [address], [facility] (Office): : [facility] 03/16/2023 - present Care [facility] [address] [place], [address], [facility] (Office): [facility] 03/16/2023 - present Sorenangelita Antony [address] [facility] [address] [place] [address], [address], [facility] (Office): [facility] 03/16/2023 - present Caryn Johansen [address] [place], [place], [facility], [facility] (Office): [facility] 03/16/2023 - present Garett Cervantes [address] [facility] [address], [place], [place], [facility], [facility] (Office): [facility] 03/16/2023 - present Goals Section Goals Description Status Target Date 1. Will have a decrease in i ncidents of verbal aggression through next review Active 11/18/2024 2. Will have a decrease in p roperty destruction through next review Active 11/18/2024 Care needs will be met at a facility of choice A ctive 11/18/2024 Resident will not exhibit any negative symptoms related to trauma. Active 11/18/2024 Resident will participate in at least 25% of LE groups per week through next review Active 11/18/2024 Resident's Advance Directive s are in effect, and their wishes and directions will be carried out in accordance with their advanced directives on an ongoing basis through next review Active Skin will remain in tact, fr ee from erythema, breakdown, excoriation or bruising until next review Active 11/18/2024 Jacob will verbalize that he i s getting adequate sleep thru next review. Active 11/18/2024 Will actively participate in leisure pursuits, either independently or in recreational group activities, to maintain a current level of functioning. Active 11/18/2024 Will attend at least one scheduled community out trip per quarter Active 11/18/2024 Will be able to eat and drink free of pain thru next review. Active 11/18/2024 Will be able to make decisio ns about ADL/activity choices or preferences thru next review. Active 11/18/2024 Will be clean, dressed and w ell groomed daily to promote dignity and psychosocial well-being thru next review. Active 11/19/19 25 Will be maintained in as nancy an and dry a dignified state as possible Active 11/18/2024 Will develop no signs or sym ptoms of thrombosis/DVT thru next review. Active 11/18/2024 Will exhibit no signs or sym ptoms of aspirations such as coughing, fever, etc. thru next review. Active 11/18/2024 Will express that pain manag ement is within acceptable limits thru next review. Active 11/18/2024 Will have medication dose re duction/elimination as indicated thru next review. Active 11/18/2024 Will have no acute respiratory distress thru nex t review. Active 11/18/2024 Will have no adverse effects related to anticoagulant therapy thru next review. Active 11/18/2024 Will have no adverse effects related to anticonvulsant therapy thru next review. Active 11/18/2024 Will have no complications due to incontinence t hru next review. Active 11/18/2024 Will have no complications r elated to constipation thru next review. Active 11/18/2024 Will have no complications s uch as rash, dyspnea, anaphylaxis thru next review. Active 11/18/2024 Will have no injuries as the result of impaired vision thru next review. Active 11/18/2024 Will maintain ability to par ticipate in all ADL's and activities of choice as condition permits thru next review. Active 11/18 Will maintain good oral hygiene thru next review . Active 11/18/2024 Will minimize risk for injury related to falls t hru next review. Active 11/18/2024 Will not experience a signif icant change in weight through next review Active 11/18/2024 Will receive assistance dayna johnson to meet ADL needs thru next review. Active 11/18/2024 Will reduce risk of injury a ssociated from seizures thru next review. Active 11/18/2024 Will remain free from compli cations related to HTN and A-Fib thru next review. Active 11/18/2024 Will remain free from compli cations related to Vitamin D deficiency thru next review. Active 11/18/2024 Will remain free from compli cations related to diverticulosis thru next review. Active 11/18/2024 Will remain free from compli cations related to elevated serum ammonia thru next review. Active 11/18/2024 Will remain free from compli cations related to thrombocytopenia thru next review. Active 11/18/2024 Will show improvement in mood/behavior thru next review. Active 11/18/2024 Will show no side effects of medication use thru next review. Active 11/18/2024 Will show no signs of dehydration thru next revi ew. Active 11/18/2024 Will tolerate diet, texture and fluid consistency without signs and symptoms of aspiration Active 11/18/2024 Immunizations Immunization Status Vaccine Details Vaccine Code CodeSystem Date Notes Influenza completed Influenza, split virus, trivalent, injectable, contains preservative lotNumber: [id number] expiry: 08/04/2024 Mfg: [employer] Given 0.5 ml Left Deltoid by mouth 141 CVX created date: 11/06/19 24 consent date: 11/06/19 24 administ ered date: 11/06/19 24 Influenza completed Influenza, split virus, trivalent, injectable, contains preservative lotNumber: [id number] expiry: 08/05/2023 Mfg: [employer] Given 0.5 ml Right Deltoid intramuscularly 141 CVX created date: 12/21/19 consent date: 12/21/19 administ ered date: 12/21/19 Influenza completed Influenza, split virus, trivalent, injectable, contains preservative lotNumber: [id number] expiry: 08/04/2022 Mfg: Quadarivalent flucelvax Given 0.5 ml Right Deltoid intramuscularly 141 CVX created date: 11/19/19 consent date: 11/19/19 administ ered date: 11/18/19 ADMINISTERED BY: ABDIRIZAK MALCOLM Influenza completed Influenza, split virus, trivalent, injectable, contains preservative lotNumber: [id number] expiry: 08/04/2021 Mfg: Flucelavax Quadrivalent Given 0.5 ml Left Deltoid intramuscularly 141 CVX created date: 12/19/19 consent date: 12/19/19 administ ered date: 12/07/19 Influenza aborted Influenza, split virus, trivalent, injectable, contains preservative 141 CVX created date: 11/20/19 consent date: 11/20/19 Influenza aborted Influenza, split virus, trivalent, injectable, contains preservative 141 CVX created date: 10/31/19 consent date: 10/31/19 Resident unable to have Influenza Vaccine due to allergies. Influenza cancelled Influenza, split virus, trivalent, injectable, contains preservative 141 CVX created date: 11/23/19 19 consent date: 11/23/19 19 Influenza cancelled Influenza, split virus, trivalent, injectable, contains preservative 141 CVX created date: 12/09/19 18 consent date: 12/08/19 18 Educated by on 10/29/2017 Guardian states history of negative effects from vaccines. medically contraindicated Influenza cancelled Influenza, split virus, trivalent, injectable, contains preservative 141 CVX created date: 11/07/19 17 consent date: 11/07/19 17 Educated by on 10/27/2016 Refused Vaccine Influenza cancelled Influenza, split virus, trivalent, injectable, contains preservative 141 CVX created date: 05/08/19 17 consent date: 05/08/19 17 Educated by on 05/07/2016 Guardian declined consent for vaccine related to history of adverse reaction to vaccines. Pneumovax Dose 1 cancelled created date: 05/08/19 17 consent date: 05/08/19 17 Guardian declined consent for influenza vaccine related to history of adverse reaction to vaccines. SARS-COV-2 (COVID-19) completed SARS-COV-2 (COVID-19) vaccine, mRNA, spike protein, LNP, preservative free, 100 mcg/0.5mL dose or 50 mcg/0.25mL dose lotNumber: [id number] expiry: 02/20/2021 Mfg: [employer] Given 0.25 ml Left Deltoid intramuscularly Step 1 of Multi-step 207 CVX created date: 02/08/19 22 consent date: 02/07/19 22 administ ered date: 02/04/20 21 BOOSTER SARS-COV-2 (COVID-19) completed SARS-COV-2 (COVID-19) vaccine, mRNA, spike protein, LNP, preservative free, 30 mcg/0.3mL dose lotNumber: [id number] Mfg: Moderna Given 0.3 ml Left Deltoid intramuscularly Step 2 of Multi-step with next step required 208 CVX created date: 09/07/19 consent date: 09/07/19 administ ered date: 07/31/19 SARS-COV-2 (COVID-19) completed SARS-COV-2 (COVID-19) vaccine, mRNA, spike protein, LNP, preservative free, 100 mcg/0.5mL dose or 50 mcg/0.25mL dose lotNumber: [id number] expiry: 08/01/2020 Mfg: Moderna Given 0.5 ml Left Deltoid intramuscularly Step 1 of Multi-step with next step required 207 CVX created date: 07/03/19 consent date: 07/03/19 administ ered date: 07/03/19 SARS-COV-2 (COVID-19) cancelled SARS-COV-2 (COVID-19) vaccine, mRNA, spike protein, LNP, preservative free, 30 mcg/0.3mL dose 208 CVX created date: 01/28/20 consent date: 01/28/20 Educated by on 01/28/2020 HCP refused COVID 19 vaccine consent per Resident's request Prevnar 20 Pneumococcal conjugate (PCV20) completed Pneumococcal conjugate vaccine 20-valent (PCV20), polysaccharide [id number] conjugate, adjuvant, preservative free lotNumber: [id number] expiry: 07/06/2025 Mfg: [employer] Given 0.5 216 CVX created date: 01/10/20 25 consent date: 02/10/19 administ ered date: 02/14/19 Educated by on 02/15/2024 SARS-COV-2 (COVID-19 BOOSTER) completed SARS-COV-2 (COVID-19) vaccine, mRNA, spike protein, LNP, bivalent, preservative free, 30 mcg/0.3 mL dose, silvia-sucrose formulation lotNumber: [id number] expiry: 04/19/2023 Mfg: Moderna [employer] Given 0.5 ml Right Deltoid intramuscularly 300 CVX created date: 07/12/19 consent date: 12/16/19 administ ered date: 12/16/19 SARS-COV-2 (COVID-19 BOOSTER) cancelled SARS-COV-2 (COVID-19) vaccine, mRNA, spike protein, LNP, bivalent, preservative free, 30 mcg/0.3 mL dose, silvia-sucrose formulation 300 CVX created date: 03/21/19 consent date: 03/21/19 Educated by on 03/21/2022 SARS-COV-2 (COVID-19 BOOSTER) completed SARS-COV-2 (COVID-19) vaccine, mRNA, spike protein, LNP, preservative free, 100 mcg/0.5mL dose or 50 mcg/0.25mL dose lotNumber: [id number] expiry: 09/23/2021 Mfg: Moderna Given 0.25 ml Right Deltoid intramuscularly 207 CVX created date: 09/02/19 administ ered date: 09/01/19 COVID-19 mRNA, bivalent, original/Omicr on BA.1, Non-US Vaccine (Spikevax Bivalent), Moderna completed SARS-COV-2 COVID-19 mRNA, bivalent, original/Omicron BA.1, Non-US Vaccine (Spikevax Bivalent), Moderna lotNumber: [id number] expiry: 07/16/2024 Mfg: Spikevax-Moderna 24-25 Given 0.5 ml Left Deltoid intramuscularly 519 CVX created date: 01/08/20 24 consent date: 01/08/20 administ ered date: 01/08/20 Medications Section Medication Name Status Code CodeSystem Dose Route Frequency Admin Type Sig Text Start Date End Date Fleet Enema Enema 7-19 GM/118ML active 189525 RXNORM 1 unit Rectal as needed PRN Insert 1 unit rectal ly every 24 hours as needed for Consti pation Use only if Bisaco dyl Suppos itory is ineffe ctive 2024 - Acetaminophen Oral Tablet 500 MG aborted RXNORM 1 tablet Oral as needed PRN Give 1 tablet by mouth every 6 hours as needed for pain NTE 3G/24H rs AND Give 1 tablet by mouth every 6 hours as needed for fever greate r than 100.1 NTE 3G/24H rs 09/02 RXNORM 1 tablet Oral as needed PRN Give 1 tablet by mouth every 6 hours as needed for pain NTE 3G/24H rs AND Give 1 tablet by mouth every 6 hours as needed for fever greate r than 100.1 NTE 3G/24H rs 09/02 Mylanta Oral Suspension 200-200-20 MG/5ML active 30 ml Oral as needed PRN Give 30 ml by mouth every 4 hours as needed for Heartb urn;Na usea 2024 - Tussin DM Oral Syrup 10-100 MG/5ML active 10 ml Oral as needed PRN Give 10 ml by mouth every 4 hours as needed for cough; conges tion 2024 - Vitamin D3 Tablet 25 MCG (1000 UT) active 19920707 RXNORM 2 tablet Oral one time a day Routine Give 2 tablet by mouth one time a day for supple ment 2024 - Senna-Docusat e Sodium Tablet 8.6-50 MG active 336538 RXNORM 1 tablet Oral one time a day Routine Give 1 tablet by mouth one time a day for preven tion of Consti pation AND Give 1 tablet by mouth every 24 hours as needed for Consti pation 2024 - 542107 RXNORM 1 tablet Oral as needed PRN Give 1 tablet by mouth one time a day for preven tion of Consti pation AND Give 1 tablet by mouth every 24 hours as needed for Consti pation 2024 - Melatonin Tablet 1 MG active 19930312 RXNORM 1 tablet Oral one time a day Routine Give 1 tablet by mouth one time a day for sleep aid 2024 - Lactulose Oral Solution 10 GM/15ML active 977197 RXNORM 30 ml Oral one time a day Routine Give 30 ml by mouth one time a day for consti pation 2024 - Eliquis Oral Tablet 5 MG suspende d 379622 7 RXNORM 1 tablet Oral two times a day Routine Give 1 tablet by mouth two times a day for atrial fibril lation 2024 - Metamucil Packet 28 % active 1 packet Oral two times a day Routine Give 1 packet by mouth two times a day for consti pation 2024 - Polyethylene Glycol 3350 Powder active 689694 RXNORM 17 gram Oral two times a day Routine Give 17 gram by mouth two times a day for Osmoti c laxati ve Dilute in 6-8 ounces of fluid 2024 - Midodrine HCl Oral Tablet 5 MG active 137685 RXNORM 1 tablet Oral three times a day Routine Give 1 tablet by mouth three times a day for bradyc ardia/ hypote nsion 2024 - Depakote ER Tablet Extended Release 24 Hour 500 MG active 162598 1 RXNORM 1 tablet Oral two times a day Routine Give 1 tablet by mouth two times a day for seizur es (as part of 750mg dose) 2024 - Depakote ER Oral Tablet Extended Release 24 Hour 250 MG active 445302 5 RXNORM 1 tablet Oral two times a day Routine Give 1 tablet by mouth two times a day for seizur e d/o (as part of 750mg dose) 2024 - Metoprolol Succinate ER Oral Tablet Extended Release 24 Hour 25 MG active 216902 RXNORM 1 tablet Oral two times a day Routine Give 1 tablet by mouth two times a day for anxiet y d/o HOLD for SBP less than 100 and/or HR less than 60 2024 - Ondansetron Oral Tablet Disintegratin g 4 MG active 264555 RXNORM 1 tablet Oral as needed PRN Give 1 tablet by mouth every 6 hours as needed for nausea , vomtin g 2024 - Bisacodyl Suppository 10 MG active 197131 RXNORM 1 suppos itory Rectal as needed PRN Insert 1 suppos itory rectal ly every 24 hours as needed for consti pation Use if Senna is Ineffe ctive 2024 - Witbest Sarah External Pad active 455819 RXNORM n/a n/a Topical as needed PRN Apply to anus topica lly as needed for hemorr hoids 2024 - Lyrica Oral Capsule 100 MG active 998534 RXNORM 1 capsul e Oral three times a day Routine Give 1 capsul e by mouth three times a day for depres sive disord er 2024 - diazePAM Oral Tablet 2 MG active 290846 RXNORM 1 tablet Oral three times a day Routine Give 1 tablet by mouth three times a day for genera timothyed anxiet y 2024 - Acetaminophen Oral Tablet 325 MG complete d 927907 RXNORM 2 tablet Oral every 6 hours Routine Give 2 tablet by mouth every 6 hours for genera lized discom fort for 1 Day 09/03 Acetaminophen Oral Tablet 325 MG active 769088 RXNORM 2 tablet Oral every 6 hours Routine Give 2 tablet by mouth every 6 hours for genera lized discom fort 2024 - hydrOXYzine HCl Oral Tablet 50 MG active 310899 RXNORM 1 tablet Oral one time only One Time Only Give 1 tablet by mouth one time only for anxiet y for 1 Day 09/14 Mental Status Section Date Assessment Total Score Description 07/04/2024 BIMS 12 moderate cognit edgardo impairment CAM 0 No delirium ind icated PHQ-9 00 06/06/2024 CAM 0 No delirium ind icated Problems Problem # Description Date of onset Resolved Date Code CodeSystem Concern Status 1 DYSPHAGIA, OROPHARYNGEAL PHASE 08/15/[address] active 2 UNSPECIFIED ATRIAL FIBRILLATION 03/23/[address] active 3 PNEUMONITIS DUE TO INHALATION OF FOOD AND VOMIT 02/25/[address] active 4 COVID-19 04/23/19 23 04/29/[address] completed 5 UNSPECIFIED ASTIGMATISM, BILATERAL 04/06/[address] active 6 UNSPECIFIED ABDOMINAL HERNIA WITHOUT OBSTRUCTION OR GANGRENE 02/24/[address] active 7 DIVERTICULOSIS OF INTESTINE, PART UNSPECIFIED, WITHOUT PERFORATION OR ABSCESS WITH BLEEDING 11/02/[address] active 8 PERSONAL HISTORY OF COVID-19 08/06/[address] active 9 AGE-RELATED NUCLEAR CATARACT, BILATERAL 04/14/[address] active 10 PRESBYOPIA 04/14/[address] active 11 DEFICIENCY OF OTHER VITAMINS 03/03/[address] active 12 PNEUMONITIS DUE TO INHALATION OF FOOD AND VOMIT 02/14/19 21 05/06/[address] completed 13 COVID-19 05/22/19 20 12/07/[address] completed 14 THROMBOCYTOPENIA, UNSPECIFIED 04/26/[address] active 15 ESSENTIAL (PRIMARY) HYPERTENSION 04/08/[address] active 16 PERSONAL HISTORY OF OTHER VENOUS THROMBOSIS AND EMBOLISM 04/08/[address] active 17 ACQUIRED ABSENCE OF OTHER SPECIFIED PARTS OF DIGESTIVE TRACT 04/07/[address] active 18 ADVERSE EFFECT OF OTHER DRUGS, MEDICAMENTS AND BIOLOGICAL SUBSTANCES, INITIAL ENCOUNTER 04/07/[address] active 19 ALLERGY STATUS TO OTHER DRUGS, MEDICAMENTS AND BIOLOGICAL SUBSTANCES 04/07/[address] active 20 ALLERGY STATUS TO SULFONAMIDES 04/07/[address] active 21 CONSTIPATION, UNSPECIFIED 04/07/[address] active 22 EPILEPSY, UNSPECIFIED, NOT INTRACTABLE, WITHOUT STATUS EPILEPTICUS 04/07/[address] active 23 GENERALIZED ANXIETY DISORDER 04/07/[address] active 24 IMPACTED CERUMEN, UNSPECIFIED EAR 04/07/19 17 05/06/[address] completed 25 MAJOR DEPRESSIVE DISORDER, RECURRENT, UNSPECIFIED 04/07/[address] active 26 MALIGNANT NEUROLEPTIC SYNDROME 04/07/[address] active 27 MILD COGNITIVE IMPAIRMENT OF UNCERTAIN OR UNKNOWN ETIOLOGY 04/07/[address] active 28 OBESITY, UNSPECIFIED 04/07/[address] active 29 OBSESSIVE-COMPULS EDGARDO DISORDER, UNSPECIFIED 04/07/[address] active 30 OTHER ACQUIRED DEFORMITIES OF UNSPECIFIED FOOT 04/07/[address] active 31 OTHER DISORDERS OF PSYCHOLOGICAL DEVELOPMENT 04/07/[address] active 32 OTHER MUSCLE SPASM 04/07/[address] active 33 OTHER ORAL MUCOSITIS (ULCERATIVE) 04/07/[address] active 34 OTHER OSTEOPOROSIS WITHOUT CURRENT PATHOLOGICAL FRACTURE 04/07/[address] active 35 PERSONAL HISTORY OF OTHER DISEASES OF THE CIRCULATORY SYSTEM 04/07/[address] active 36 PERSONAL HISTORY OF OTHER DISEASES OF URINARY SYSTEM 04/07/[address] active 37 PERSONAL HISTORY OF OTHER INFECTIOUS AND PARASITIC DISEASES 04/07/19 17 08/05/[address] completed 38 RECTAL PROLAPSE 04/07/[address] active 39 TACHYCARDIA, UNSPECIFIED 04/07/19 17 03/16/[address] completed 40 UNSPECIFIED ACQUIRED DEFORMITY OF HAND, UNSPECIFIED HAND 04/07/[address] active 41 UNSPECIFIED OSTEOARTHRITIS, UNSPECIFIED SITE 04/07/[address] active 42 UNSPECIFIED URINARY INCONTINENCE 04/07/[address] active 43 VITAMIN D DEFICIENCY, UNSPECIFIED 04/07/19 17 03/03/[address] completed Reason for Referral No Reasons for Referral Entered Social History Social History Observation Description Start Date End Date Code Code System Current Smoking Status Tobacco smoking consumption unknown 684722943 SNOMED CT Sex Assigned At Male 1965 42482-[address] [facility] Gender Identity Vital Signs Code Code System Vitals Name Values and Units Timing Information 31318-[address] [facility] Pain Level Value=0.0 09/13/2024 9279-[address] [facility] Respiratory Rate Value=18.0 Units=/m in 09/13/2024 8310-[address] [facility] Body Temperature Trxxo=930.3 Units= F 09/13/2024 8867-4 [facility] Heart rate Value=92.0 Units=/min 10/2024 85106-[address] [facility] O2 % BldC Oximetry Value=94.0 Units= % 09/13/2024 8462-[address] [facility] Blood Pressure-Diastolic Value=79 Un its=mmHg 09/13/2024 8480-[address] [facility] Blood Pressure-Systolic Hsavq=850 Un its=mmHg 09/13/2024 45863-[address] [facility] Weight Obgss=200.5 Units=Lbs 12/2024 8302-[address] [facility] Height Value=67.0 Units=Inches 07/04/2024
--- OUTSIDE RECORDS SUMMARY | 2024-09-13 19:52 | XMS_ITS | Clinical Summary ---
Author Organization [employer] Address [address] [facility] [address] [place] [address] Care Team Providers Care Commutator Tester Name Role Phone Unavailable Primary Care Provider [...]
--- OUTSIDE RECORDS SUMMARY | 2024-09-13 19:52 | XMS_ITS | Encounter Summary ---
Author Organization [employer] Address [address] [place] [address] Care Team Providers Care Director Of Advertising Sales Name Role Phone Augustine Dan MD Primary Care Provider [phone] Encounter Details Date Type Department Care Team (Late st Contact Info) Description 02/04/[address] [facility] - Main Lab [address] [place] [address] Augustine Dan MD [address] [place] [address] Dr [address] KALANI Camacho Dysuria Social [...] Hold for add-ons. 02/04/2024 7:02 PM EST [facility] ([facility] Comment:Auto resulted. Urine Urine specimen obtained by clean catch procedure / Unknown 02/04/2024 1:30 PM EST 02/04/2024 5:27 PM EST us Augustine Dan MD LAB URINE ORDERABLES Final Resul t [facility] [address] [place] [address], * Urinalysis with reflex microscopic and culture (02/04/2024 1:30 PM EST) Specific Sarah Urine 1.015 1.003 - 1.030 LAB URINALYSIS - AUTOMATED METHOD 02/04/2024 5:[address] [facility] pH, Urine 7.5 5.0 - 8.0 pH LAB URINALYSIS - AUTOMATED METHOD 02/04/2024 5:[address] [facility] Leukocytes, Urine Negative Negative LAB URINALYSIS - AUTOMATED METHOD 02/04/2024 5:[address] [facility] Nitrite, Urine Negative Negative LAB URINALYSIS - AUTOMATED METHOD 02/04/2024 5:[address] [facility] Protein, Urine Negative <=Trace mg/dL LAB URINALYSIS - AUTOMATED METHOD 02/04/2024 5:[address] [facility] Glucose, Urine Negative Negative mg/dL LAB URINALYSIS - AUTOMATED METHOD 02/04/2024 5:[address] [facility] Ketones, Urine Negative Negative mg/dL LAB URINALYSIS - AUTOMATED METHOD 02/04/2024 5:[address] [facility] Urobilinogen, Urine 0.2 0.2 - 1.0 mg/dL LAB URINALYSIS - AUTOMATED METHOD 02/04/2024 5:[address] [facility] Bilirubin, Urine Negative Negative LAB URINALYSIS - AUTOMATED METHOD 02/04/2024 5:[address] [facility] Blood, Urine Negative Negative LAB URINALYSIS - AUTOMATED METHOD 02/04/2024 5:[address] [facility] Urine Urine specimen obtained by clean catch procedure / Unknown 02/04/2024 1:30 PM EST 02/04/2024 5:12 PM EST us Augustine Dan MD LAB URINE ORDERABLES Final Resul t [facility] ([facility]) [facility] [address] [place] [address], documented in this encounter Visit Diagnoses Diagnosis Dysuria documented in this encounter Care Teams Director Of Advertising Sales Relationship Specialty Start Date End Date Augustine Dan MD [address] [place], [place] PCP - General Internal Medicine 04/21/24 documented as of this encounter
[2024-09-13 20:09] LABS: Resp Syncy Virus RNA Qual PCR NEGATIVE (Negative); SARS COV2 PCR INHOUSE NEGATIVE (Negative)
[2024-09-13] MEDS: iohexoL 350 MG/ML 100 ML INFUS..BTL IV (21:50)
--- NOTE | 2024-09-13 22:45 | ECG_ITS ---
Test Reason : ALTERED MENTAL STATUS Blood Pressure : */* mmHG Vent. Rate : 61 BPM Atrial Rate : 61 BPM P-R Int : 192 ms QRS Dur : 92 ms QT Int : 438 ms P-R-T Axes : 76 -1 41 degrees QTcB Int : 440 ms Sinus rhythm with Premature atrial complexes Otherwise normal ECG When compared with ECG of 13-Sep-2024 19:06, prior EKG had poor quality and cannot compare Referred By: Flaquito Malave Electronically Signed By: ECHO MADRIGAL
[2024-09-13] MEDS: Lactated Ringers 1,000 ML 999 ML IV (23:10)
--- NOTE | 2024-09-13 23:19 | PM.IMHP ---
History of Present Illness Date of Service: 09/13/24 Chief Complaint: Fever This has a 59-year-old male, resident of [facility] with pertinent history of intellectual delay, paroxysmal atrial fibrillation on Eliquis status post ablation, hypertension, seizure disorder, mood disorder, dysphagia with history of aspiration pneumonia, neuroleptic malignant syndrome who was sent to the emergency department for evaluation of fever. Patient is a poor historian and history obtained with the help of chart review and ER provider. Patient was found to be with chills and shaking at outside facility, temperature was found to be 102.3 degrees F. Patient had an episode of vomiting with EMS. He denies any complaints at the time of my evaluation. Does have history of dysphagia with previous hospitalization due to sepsis and hypoxia in the setting of aspiration pneumonia. Unable to obtain complete review of systems. In the emergency department, patient was found to be septic and imaging concerning for right-sided pneumonia. Review of Systems Review of Systems: Yes Unobtainable due to mental condition PMFSH Medical History Encounter for cardioversion procedure Neurogenic bladder Constipation Resides in snf facility History of GI bleed Seizure disorder Urinary incontinence Osteoarthritis Rectal prolapse Cognitive impairment Hx of deep venous thrombosis Thrombocytopenia Bilateral cataracts Personal history of COVID-19 Diverticular disease Flexion contractures OCD (obsessive compulsive disorder) History of hemodialysis Depression Neuroleptic malignant syndrome Epilepsy Deformity of left hand Generalized anxiety disorder Major depressive disorder Mild cognitive impairment Hypertension Family History Sister Breast CA, Onset Age: 51 Ovarian ca, Onset Age: 55 Father Prostate CA, Onset Age: 70 Mother Colorectal cancer, Onset Age: 39 Kidney carcinoma, Onset Age: 67 Maternal Grandmother Colorectal cancer, Onset Age: 70 Maternal Aunt Colorectal cancer Surgical History History of incisional hernia repair (03/15/22) History of repair of rectocele Hx of appendectomy Hx of colonoscopy Social History Household Members: Other Household Members Other:: From [facility] Facility Housing: Skilled Nursing Housing Other:: patient coming from [facility] Are you a primary ambulatory care coordinator to a significant other at home: No Do you presently have visiting nurse or other home services: Yes Unable to assess alcohol history related to: Unable to respond Alcohol intake: never [place] [facility] Tobacco Use Status: Never used Tobacco Smoked in Last 30 Days: No e-Cigarette/Vaping Use: Never Used Second Hand Smoke Exposure: No Use of substances other than those prescribed or required for medical reasons: No Advance Directives: Yes Advance Directives on File: Yes Advance Directives Date on File: 11/21/19 Do you have a plan to hurt others: No Plan Nutrition Risks: On aspiration precautions service: No Current occupational status: disabled Meds Allergies Allergy/AdvReac Type Severity Reaction Status Date / Time aripiprazole (From ABILIFY) Allergy Severe Involuntary Verified 09/13/24 19:04 Spasms droperidol (From INAPSINE) Allergy Severe Involuntary Verified 09/13/24 19:04 Spasms haloperidol (From HALDOL) Allergy Severe Involuntary Verified 09/13/24 19:04 Spasms prochlorperazine (From Allergy Severe Involuntary Verified 09/13/24 19:04 COMPAZINE) Spasms promethazine (From PHENERGAN) Allergy Severe Involuntary Verified 09/13/24 19:04 Spasms sulfamethoxazole (From Allergy Severe Anaphylaxis Verified 09/13/24 19:04 BACTRIM) trimethoprim (From BACTRIM) Allergy Severe Anaphylaxis Verified 09/13/24 19:04 Home Medications ?Medication ?Instructions ?Recorded ?Confirmed ?Last Taken ?Type diazepam 2 mg tablet 2 mg PO TID 11/17/19 08/18/24 07/18/24 History melatonin 1 mg tablet 1 mg PO BEDTIME 11/17/19 08/18/24 11/16/19 History acetaminophen 500 mg tablet 500 mg PO Q6H PRN FEVER/MILD PAIN 02/13/20 08/18/24 Unknown History cholecalciferol (vitamin D3) 25 50 mcg PO DAILY 02/13/20 08/18/24 Unknown History mcg (1,000 unit) tablet pregabalin 100 mg capsule 100 mg PO TID 02/13/20 08/18/24 03/15/22 History polyethylene glycol 3350 17 17 g PO BID 03/09/22 08/18/24 Unknown History gram/dose oral powder (Miralax) divalproex 500 mg tablet,extended 500 mg PO BID 04/20/22 08/18/24 07/18/24 History release 24 hr (Depakote ER) aluminum-mag hydroxide-simethicone 30 ml PO Q4H PRN HEARTBURN OR 05/11/22 08/18/24 Unknown History 200 mg-200 mg-20 mg/5 mL oral susp NAUSEA dextromethorphan-guaifenesin 10 10 ml PO Q4H PRN Cough/congestion 05/11/22 08/18/24 Unknown History mg-100 mg/5 mL oral syrup (Tussin DM) psyllium 1 packet PO BID 05/11/22 08/18/24 Unknown History divalproex 250 mg tablet,extended 250 mg PO BID 02/23/24 08/18/24 07/18/24 History release 24 hr (Depakote ER) metoprolol succinate 25 mg 25 mg PO BID 02/23/24 08/18/24 07/18/24 History tablet,extended release 24 hr midodrine 5 mg tablet 5 mg PO TID@0900,1400,1800 02/23/24 08/18/24 07/18/24 History nystatin 100,000 unit/gram topical 1 appl topical BID 02/23/24 08/18/24 Unknown History powder sennosides 8.6 mg-docusate sodium 1 tab-cap PO DAILY Constipation 02/23/24 08/18/24 Unknown History 50 mg tablet ondansetron 4 mg disintegrating 4 mg PO Q6H PRN NAUSEA, VOMITING 03/20/24 08/18/24 Unknown History tablet bisacodyl 10 mg rectal suppository 10 mg [place] DAILY PRN Constipation 06/06/24 08/18/24 Unknown History lactulose 10 gram/15 mL oral 30 ml PO DAILY Constipation 06/06/24 08/18/24 Unknown History solution sodium phosphates 19 gram-7 118 ml [place] DAILY PRN Constipation 06/06/24 08/18/24 Unknown History gram/118 mL enema (Fleet Enema) witch monica 20 % topical pads 1 pad topical NEEDED PRN 06/06/24 08/18/24 Unknown History Hemorrhoids on anus Physical Exam Vital Signs and Narrative: Vital Signs: Last Vital Signs Temp 99.3 F 09/13/24 23:04 Pulse 68 09/13/24 22:04 Resp 26 H 09/13/24 22:04 BP 101/57 L 09/13/24 22:04 Pulse Ox 95 09/13/24 20:41 O2 Del Method Room Air 09/13/24 20:41 BMI result Body Mass Index 36.6 Const: Other: Middle-aged male lying in bed in no distress Neck supple, no JVD Regular rate and rhythm, S1-S2 heard Right-sided crackles without wheezing Abdomen soft nontender, no guarding, no rigidity Patient is awake, alert and oriented x2 ; no focal motor deficit Psych: Lethargic Results Labs 09/13/24 19:16 09/13/24 19:16 Labs: Laboratory Results - last 24 hr 09/13/24 09/13/24 09/13/24 19:16 19:23 19:30 MCV 91.0 MCH 31.1 MCHC 34.2 RDW 13.3 Plt Count 84 L MPV 11.0 Immature Gran % (Auto) 0.5 H Neut % (Auto) 84.2 H Lymph % (Auto) 8.8 L [place] % (Auto) 6.2 Eos % (Auto) 0.2 Baso % (Auto) 0.1 Lymph # (Auto) 0.7 L [place] # (Auto) 0.5 Eos # (Auto) 0.0 Baso # (Auto) 0.0 Abs Immat Gran (auto) 0.04 H Absolute Neuts (auto) 6.9 Absolute Nucleated RBC 0.000 Nucleated RBC % (auto) 0.0 Smear Tech's Comments VERIFIED PT 12.7 H INR 1.1 VBG pH 7.46 H VBG pCO2 46 VBG pO2 90 VBG HCO3 33 H VBG O2 Saturation 99.0 VBG Base Excess 8.5 Anion Gap 12 Estim Creat Clear Calc 104.4 Estimated GFR > 60 Random Glucose 103 Lactic Acid 1.2 Calcium 8.7 Magnesium 1.8 Total Bilirubin 0.7 Direct Bilirubin 0.3 AST 20 ALT 7 Alkaline Phosphatase 51 C-Reactive Protein 1.10 H Total Protein 6.6 Albumin 3.8 Lipase 6 L Urine Color Urine Appearance Urine pH Ur Specific [place] Urine Protein Urine Glucose (UA) Urine Ketones Urine Blood Urine Nitrite Ur Leukocyte Esterase Urine RBC Urine WBC Ur Squamous Epith Cells Urine Bacteria Hyaline Casts Valproic Acid Influenza Type A (PCR) NEGATIVE Influenza Type B (PCR) NEGATIVE RSV RNA Qual (PCR) NEGATIVE SARS-CoV-2 RNA (RT-PCR) NEGATIVE 09/13/24 09/13/24 19:36 22:03 MCV MCH MCHC RDW Plt Count MPV Immature Gran % (Auto) Neut % (Auto) Lymph % (Auto) [place] % (Auto) Eos % (Auto) Baso % (Auto) Lymph # (Auto) [place] # (Auto) Eos # (Auto) Baso # (Auto) Abs Immat Gran (auto) Absolute Neuts (auto) Absolute Nucleated RBC Nucleated RBC % (auto) Smear Tech's Comments PT INR VBG pH VBG pCO2 VBG pO2 VBG HCO3 VBG O2 Saturation VBG Base Excess Anion Gap Estim Creat Clear Calc Estimated GFR Random Glucose Lactic Acid Calcium Magnesium Total Bilirubin Direct Bilirubin AST ALT Alkaline Phosphatase C-Reactive Protein Total Protein Albumin Lipase Urine Color Yellow Urine Appearance Clear Urine pH 8.5 Ur Specific [place] 1.015 Urine Protein Negative Urine Glucose (UA) Negative Urine Ketones Trace Urine Blood Negative Urine Nitrite Negative Ur Leukocyte Esterase Trace H Urine RBC 0-2 Urine WBC 0-5 Ur Squamous Epith Cells 0-2 Urine Bacteria None Seen Hyaline Casts 0-2 Valproic Acid 69.3 Influenza Type A (PCR) Influenza Type B (PCR) RSV RNA Qual (PCR) SARS-CoV-2 RNA (RT-PCR) Assessment and Plan (1) Aspiration pneumonia: Qualifiers: Aspiration pneumonia type: unspecified Laterality: right Lung location: lower lobe of lung Qualified Code(s): J69.0 - Pneumonitis due to inhalation of food and vomit Status: Acute Plan This has a 59-year-old male, resident of [facility] with pertinent history of intellectual delay, paroxysmal atrial fibrillation on Eliquis status post ablation, hypertension, seizure disorder, mood disorder, dysphagia with history of aspiration pneumonia, neuroleptic malignant syndrome who was sent to the emergency department for evaluation of fever. #. Sepsis due to aspiration pneumonia: Resuscitated with IV crystalloids. Lactic acid and blood culture obtained. Initiating empiric broad-spectrum IV antibiotics. NPO until speech eval #. Paroxysmal atrial fibrillation: Continue Eliquis when able to take p.o.. Hold beta-gilbert in the setting of hypotension #. Seizure disorder: On Depakote #. Mood disorder: Continue home mood stabilizers Med rec pending DVT prophylaxis: Eliquis Full code Admit as inpatient and will require two night minimum hospital stay for IV antibiotics (as above), which is not possible in a lesser acute setting. Quality Stroke Does the patient have a stroke diagnosis?: No VTE Prior VTE?: No VTE Risk Level:: Medical - moderate - high VTE Device Contraindication: Treatment Not Indicated VTE Drug Contraindication: N/A - Med Ordered
--- NOTE | 2024-09-14 | ECG_ITS ---
Test Reason : RHETT Blood Pressure : */* mmHG Vent. Rate : 41 BPM Atrial Rate : 41 BPM P-R Int : 196 ms QRS Dur : 98 ms QT Int : 482 ms P-R-T Axes : 62 -3 18 degrees QTcB Int : 397 ms Marked sinus bradycardia Low voltage QRS Abnormal ECG When compared with ECG of 13-Sep-2024 23:48, Premature atrial complexes are no longer Present Vent. rate has decreased by 20 bpm Referred By: Garima Snyder Electronically Signed By: ECHO MADRIGAL
[2024-09-14] MEDS: vancomycin/NS 2,000 MG/500 ML PLAST..BAG 250 MG IV (01:50)
[2024-09-14 01:52] VITALS: BP 119/67; PULSE 62; RESP 14; O2SAT 92
[2024-09-14 05:23] VITALS: BP 125/95; PULSE 62; RESP 16; TEMP 36.6; O2SAT 94
--- NOTE | 2024-09-14 06:13 | PC.NURSE ---
Pt noted on campus monitor to be in low 40s and may have dipped down to 38 but that was unable to be captured. Messaged Dr. Snyder and order for repeat EKG dose and if it shows sinus bradycardia then the patient can be admitted to med surg with cardiac monitoring. EKG image messaged to Dr. Snyder and pt will continue with admission to med surg floor per Dr. Snyder.
[2024-09-14 06:37] LABS: MANUAL DIFF FLAG NO
[2024-09-14 07:03] LABS: Anion Gap 10 (12-20); Blood Urea Nitrogen 13 mg/dL (9-16); Calcium 8.2 mg/dL (8.4-10.2); Carbon Dioxide 29 mmol/L (22-29); Chloride 111 mmol/L (96-108); Creatinine Clr Calc Pharmacy 114.4; Estimated Glomerular Filt Rate > 60; Potassium 3.8 mmol/L (3.3-5.1); Sodium 146 mmol/L (135-145)
[2024-09-14 07:15] LABS: Hemoglobin 12.0 g/dl (14.0-18.0); Imm Gran Abs Auto 0.01 X10*3/uL (0.00-0.03); Imm Gran Pct Auto 0.1 % (0.0-0.4); NRBC Abs Auto 0.000 X10*3/uL (0.0-0.012); NRBC Pct Auto 0.0 /100WBC (0.0-0.2); PLT CLUMP 1; SCAN SMEAR FLAG 1
[2024-09-14 07:17] LABS: Hematocrit 36.6 % (42.0-52.0); Lymphocytes Absolute Auto 1.7 X10*3/uL (1.2-4.9); Mean Corpuscular HGB Conc 32.8 g/dl (31.0-36.0); Mean Corpuscular Hemoglobin 30.8 pg (27.0-33.0); Mean Corpuscular Volume 94.1 fL (80.0-98.0); Red Blood Count 3.89 X10*6/uL (4.60-5.80)
[2024-09-14 07:18] LABS: White Blood Count 6.8 X10*3/uL (4.8-10.8)
[2024-09-14 07:19] LABS: Platelet Count 71 X10*3/uL (160-400)
[2024-09-14 07:49] VITALS: BMI 36.6
[2024-09-14 07:50] VITALS: BP 138/60; PULSE 71; RESP 18; TEMP 36.6; O2SAT 98
--- NOTE | 2024-09-14 08:29 | PHA.MEDREC ---
Addendum entered by Tong Torres PharmD 09/14/24 08:40: reviewed Original Note: Pharmacy Consult ? Medication Reconciliation Pharmacy has completed the medication reconciliation. Utilized list from [facility] to confirm med list.
--- NOTE | 2024-09-14 09:15 | MHC.CM.PN ---
pts hcp marguerite dickson [phone] confirms that p will return to [facility] when dcd
[2024-09-14] MEDS: 0.9 % Sodium Chloride Flush 3 ML SYRINGE IVFLUSH ×2 (09:55→16:00)
--- NOTE | 2024-09-14 11:37 | P.PNIM_ITS ---
Subjective Subjective Date of Service: 09/14/24 Interval History: No acute issues overnight. Maintained NPO awaiting speech eval Review of Systems Unable to obtain Physical Exam 2 Vital Signs: Vital Signs: Last Vital Signs Temp 97.8 F 09/14/24 07:50 Pulse 71 09/14/24 07:50 Resp 18 09/14/24 07:50 BP 138/60 09/14/24 07:50 Pulse Ox 98 09/14/24 07:50 O2 Del Method Room Air 09/14/24 07:50 BMI result Body Mass Index 36.6 Const: Other: Awake alert no no acute distress Resp: Other: Diminished at bases right base with scattered crackles and inspiratory wheezes Cardio: Other: No S4; positive S1-S2; no S3 murmurs rubs or gallops GI: Other: Soft nontender nondistended active bowel sounds Extrem: Other: No edema bilaterally Objective Data Active Medications Acetaminophen (Acetaminophen 325 Mg Tablet) 650 mg PO Q6H PRN PRN Reason: Pain, Mild 1-3,fever,headache Calcium Carbonate (Calcium Carbonate 750 Mg Tab.Chew) 750 mg PO Q4H PRN PRN Reason: Heartburn Piperacillin Sod/Tazobactam (Sod 4.5 gm/ Sodium Chloride) 100 mls @ 200 mls/hr IV Q6H [facility] Last Infusion: 09/14/24 10:39 Dose: Infused Documented By: EDY Vancomycin HCl 1,500 mg/ (Sodium Chloride) 500 mls @ 333.333 mls/hr IV Q12H [facility] Magnesium Hydroxide (Milk Of Magnesia 30 Ml Oral.Susp) 30 ml PO DAILY PRN PRN Reason: Constipation Melatonin (Melatonin 3 Mg Tablet) 6 mg PO BEDTIME PRN PRN Reason: Insomnia Ondansetron HCl (Ondansetron Hcl 4 Mg/2 Ml Vial) 4 mg IVPUSH Q8H PRN PRN Reason: Nausea and Vomiting Pharmacy Consult (Consult Rx Vancomycin Dosing) 1 each MISCELLANE DAILY PRN PRN Reason: Consult order Sodium Chloride (0.9 % Sodium Chloride Flush 3 Ml Syringe) 3 ml IVFLUSH QSHIFT [facility] Last Admin: 09/14/24 09:55 Dose: 3 ml Documented By: EDY Labs 09/14/24 06:26 09/14/24 06:26 Labs: Laboratory Results - last 24 hr 09/13/24 09/13/24 09/13/24 19:16 19:23 19:30 MCV 91.0 MCH 31.1 MCHC 34.2 RDW 13.3 Plt Count 84 L MPV 11.0 Immature Gran % (Auto) 0.5 H Neut % (Auto) 84.2 H Lymph % (Auto) 8.8 L [place] % (Auto) 6.2 Eos % (Auto) 0.2 Baso % (Auto) 0.1 Lymph # (Auto) 0.7 L [place] # (Auto) 0.5 Eos # (Auto) 0.0 Baso # (Auto) 0.0 Abs Immat Gran (auto) 0.04 H Absolute Neuts (auto) 6.9 Absolute Nucleated RBC 0.000 Nucleated RBC % (auto) 0.0 Smear Tech's Comments VERIFIED PT 12.7 H INR 1.1 VBG pH 7.46 H VBG pCO2 46 VBG pO2 90 VBG HCO3 33 H VBG O2 Saturation 99.0 VBG Base Excess 8.5 Anion Gap 12 Estim Creat Clear Calc 104.4 Estimated GFR > 60 Random Glucose 103 Lactic Acid 1.2 Calcium 8.7 Magnesium 1.8 Total Bilirubin 0.7 Direct Bilirubin 0.3 AST 20 ALT 7 Alkaline Phosphatase 51 C-Reactive Protein 1.10 H Total Protein 6.6 Albumin 3.8 Lipase 6 L Urine Color Urine Appearance Urine pH Ur Specific [place] Urine Protein Urine Glucose (UA) Urine Ketones Urine Blood Urine Nitrite Ur Leukocyte Esterase Urine RBC Urine WBC Ur Squamous Epith Cells Urine Bacteria Hyaline Casts Valproic Acid Influenza Type A (PCR) NEGATIVE Influenza Type B (PCR) NEGATIVE RSV RNA Qual (PCR) NEGATIVE SARS-CoV-2 RNA (RT-PCR) NEGATIVE 09/13/24 09/13/24 09/14/24 19:36 22:03 06:26 MCV 94.1 MCH 30.8 MCHC 32.8 RDW 13.6 Plt Count 71 L MPV 11.2 Immature Gran % (Auto) 0.1 Neut % (Auto) 62.0 Lymph % (Auto) 25.0 [place] % (Auto) 10.0 Eos % (Auto) 2.5 Baso % (Auto) 0.4 Lymph # (Auto) 1.7 [place] # (Auto) 0.7 Eos # (Auto) 0.2 Baso # (Auto) 0.0 Abs Immat Gran (auto) 0.01 Absolute Neuts (auto) 4.2 Absolute Nucleated RBC 0.000 Nucleated RBC % (auto) 0.0 Smear Tech's Comments PT INR VBG pH VBG pCO2 VBG pO2 VBG HCO3 VBG O2 Saturation VBG Base Excess Anion Gap 10 L Estim Creat Clear Calc 114.4 Estimated GFR > 60 Random Glucose 80 Lactic Acid Calcium 8.2 L Magnesium Total Bilirubin Direct Bilirubin AST ALT Alkaline Phosphatase C-Reactive Protein Total Protein Albumin Lipase Urine Color Yellow Urine Appearance Clear Urine pH 8.5 Ur Specific [place] 1.015 Urine Protein Negative Urine Glucose (UA) Negative Urine Ketones Trace Urine Blood Negative Urine Nitrite Negative Ur Leukocyte Esterase Trace H Urine RBC 0-2 Urine WBC 0-5 Ur Squamous Epith Cells 0-2 Urine Bacteria None Seen Hyaline Casts 0-2 Valproic Acid 69.3 Influenza Type A (PCR) Influenza Type B (PCR) RSV RNA Qual (PCR) SARS-CoV-2 RNA (RT-PCR) Assessment and Plan (1) Aspiration pneumonia: Status: Acute (2) New onset a-fib: Status: Acute Plan This has a 59-year-old male, resident of [facility] with pertinent history of intellectual delay, paroxysmal atrial fibrillation on Eliquis status post ablation, hypertension, seizure disorder, mood disorder, dysphagia with history of aspiration pneumonia, neuroleptic malignant syndrome who was sent to the emergency department for evaluation of fever. 1.Aspiration pneumonia (sepsis resolved) -vanco/Zosyn (2) -NPO pending speech eval 2.Paroxysmal atrial fibrillation -Eliquis on hold pending swallow eval -restart beta-gilbert as above 3.Seizure disorder -stable and well compensated -continue outpatient therapy Med rec pending Lovenox Full code Requires ongoing hospitalization for IV antibiotics to treat recurrent aspiration pneumonia Quality Stroke Does the patient have a stroke diagnosis?: No VTE Prior VTE?: No VTE Risk Level:: Medical - moderate - high VTE Device Contraindication: Treatment Not Indicated VTE Drug Contraindication: N/A - Med Ordered
[2024-09-14 15:10] VITALS: BP 130/71; PULSE 59; RESP 18; TEMP 36.6; O2SAT 95
[2024-09-14 19:29] VITALS: BP 139/75; PULSE 60; RESP 18; TEMP 36.7; O2SAT 95
[2024-09-15] MEDS: 0.9 % Sodium Chloride Flush 3 ML SYRINGE IVFLUSH ×3 (02:11→16:40)
[2024-09-15 03:44] VITALS: BP 116/59; PULSE 62; RESP 18; TEMP 37.1; O2SAT 95
[2024-09-15 06:05] LABS: Creatinine Clr Calc Pharmacy 100.6; Estimated Glomerular Filt Rate > 60
[2024-09-15 07:32] VITALS: BP 134/69; PULSE 70; RESP 16; TEMP 36.8; O2SAT 94
--- NOTE | 2024-09-15 12:27 | P.PNIM_ITS ---
Subjective Subjective Date of Service: 09/15/24 Interval History: No acute issues overnight. Maintained NPO awaiting speech eval Review of Systems Unable to obtain Physical Exam 2 Exam: Exam: Appearing in no acute distress lung sounds are clear to auscultation heart regular rate rhythm, clear S1, S2 positive bowel sounds, abdomen is soft, nontender neuro patient is alert x3, no focal deficits Vital Signs: Vital Signs: Last Vital Signs Temp 98.3 F 09/15/24 07:32 Pulse 70 09/15/24 07:32 Resp 16 09/15/24 07:32 BP 134/69 09/15/24 07:32 Pulse Ox 94 09/15/24 07:32 O2 Del Method Room Air 09/15/24 07:32 BMI result Body Mass Index 36.6 Objective Data Active Medications Acetaminophen (Acetaminophen 325 Mg Tablet) 650 mg PO Q6H PRN PRN Reason: Pain, Mild 1-3,fever,headache Calcium Carbonate (Calcium Carbonate 750 Mg Tab.Chew) 750 mg PO Q4H PRN PRN Reason: Heartburn Enoxaparin Sodium (Enoxaparin Sodium 40 Mg/0.4 Ml Syringe) 40 mg SUBCUT Q24H [facility] Last Admin: 09/15/24 11:43 Dose: 40 mg Documented By: CELESTINA Piperacillin Sod/Tazobactam (Sod 4.5 gm/ Sodium Chloride) 100 mls @ 200 mls/hr IV Q6H [facility] Last Infusion: 09/15/24 10:18 Dose: Infused Documented By: CELESTINA Vancomycin HCl 1,500 mg/ (Sodium Chloride) 500 mls @ 333.333 mls/hr IV Q12H [facility] Last Infusion: 09/15/24 03:51 Dose: Infused Documented By: GISELL Magnesium Hydroxide (Milk Of Magnesia 30 Ml Oral.Susp) 30 ml PO DAILY PRN PRN Reason: Constipation Melatonin (Melatonin 3 Mg Tablet) 6 mg PO BEDTIME PRN PRN Reason: Insomnia Last Admin: 09/14/24 21:59 Dose: 6 mg Documented By: GISELL Ondansetron HCl (Ondansetron Hcl 4 Mg/2 Ml Vial) 4 mg IVPUSH Q8H PRN PRN Reason: Nausea and Vomiting Pharmacy Consult (Consult Rx Vancomycin Dosing) 1 each MISCELLANE DAILY PRN PRN Reason: Consult order Sodium Chloride (0.9 % Sodium Chloride Flush 3 Ml Syringe) 3 ml IVFLUSH QSHIFT [facility] Last Admin: 09/15/24 07:15 Dose: 3 ml Documented By: CELESTINA Labs 09/14/24 06:26 09/15/24 05:30 Labs: Laboratory Results - last 24 hr 09/15/24 05:30 Hold Purple Top SEE NOTE Estim Creat Clear Calc 100.6 Estimated GFR > 60 Microbiology Microbiology Results: Microbiology 09/13/24 19:16 Blood Culture - Preliminary Blood - Venous No growth after 24 hours. 09/13/24 19:17 Blood Culture - Preliminary Blood - Venous No growth after 24 hours. Assessment and Plan (1) Aspiration pneumonia: Status: Acute (2) New onset a-fib: Status: Acute Plan 59-year-old male, resident of [facility] with pertinent history of intellectual delay, paroxysmal atrial fibrillation on Eliquis status post ablation, hypertension, seizure disorder, mood disorder, dysphagia with history of aspiration pneumonia, neuroleptic malignant syndrome who was sent to the emergency department for evaluation of fever. Aspiration pneumonia (sepsis resolved) continue vanco/Zosyn NPO pending speech eval Paroxysmal atrial fibrillation Eliquis on hold pending swallow eval restart beta-gilbert as above Seizure disorder stable and well compensated continue outpatient therapy Lovenox Full code Quality Stroke Does the patient have a stroke diagnosis?: No VTE Prior VTE?: No VTE Risk Level:: Medical - moderate - high VTE Device Contraindication: Treatment Not Indicated VTE Drug Contraindication: N/A - Med Ordered
--- NOTE | 2024-09-15 12:55 | MHC.SL.SWA ---
Speech Pathologist Impression: Mild to moderate persisting dypshagia Risk of Aspiration Due to: Hx PNA Dysphasia Diet Status: Pt seen in February 2024 for clinical bedside swallow evaluation and in August 2024 for Modified Barium Swallow Study. [place] [facility] [place] regular diet/thin consistencies, and safety strategies to reduce risk for aspiration. Liquid Consistency and Strategies for Safe Swallow: Liquid Intake Recommendation: Thin Liquid Intake Strategies: Solid Food Consistency: Dietary Recommendations: Chopped/Advanced (NDD3) Additional Modifications to Solid Foods: Recommend 1:1 supervision with cues as needed: take one bite at a time, chew food well, swallow food that's in mouth before talking or taking another bite, take small sips, alternate bites/sips, remain upright during PO intake. Oral Medication Intake: Whole with Liquid Please contact the pharmacy regarding appropriate crushable or liquid drug formulations that are available whenever modified delivery is recommended. Compensatory Strategies and Precautions to be Taken for Safe Swallow: Supervision While Eating and Drinking for Safe Swallow: Direct Supervision (1:1) Foods to Avoid: Swallowing Recommended Treatments: Recommendation for Speech: Inpatient Speech Therapy Speech Therapy through Rehab Facility Comment: Pt repositioned upright in bed. Pt needed assist to open containers and consistent cueing to reduce size of bolus, slow pace when eating. Pt tolerated regular solids with adequate oropharyngeal coordination; pt did take large bites which required extended time chewing. MANAGER PRODUCT DESIGN recommended pt take smaller bites; pt endorsed that he forgets. Pt tolerated purees with efficient oropharyngeal control; timing of anterior to posterior transit and trigger of pharyngeal swallow WNL. Pt sipped thins by straw, but again was impulsive, taking large gulps in consecutive swallows. Pt elicited cough x1 after multiple gulps of thin liquid. MANAGER PRODUCT DESIGN reiterated the importance of slow pacing, small sips/bites. Pt in agreement but is unable to generalize safety precautions at this time. Pt needs supervision to improve safety in PO intake. PA consulted, recc NDD3 with thins, aspiration precautions. MANAGER PRODUCT DESIGN following. Recc NDD3 with thins, aspiration precautions. MANAGER PRODUCT DESIGN intervention indicated upon d/c. Frequency/Duration: Daily M-F Date Range for Service Req: Timeline to reassess: Cable Worker Helper Clinican/Clinical Fellow: No Supervisory Statement: I have reviewed and agree with the student/clinical fellow's documentation: N/A Speech Language Pathologist: Katya Garcia M.S., CCC-MANAGER PRODUCT DESIGN
--- NOTE | 2024-09-15 13:22 | HE.PHANOTE ---
RE: VANCO Trough returned at 22.3. next dose for tonight @2300. Will reevaluate with trough tonight @2100.
[2024-09-15 15:42] VITALS: BP 132/74; PULSE 63; RESP 18; TEMP 37.1; O2SAT 94
--- NOTE | 2024-09-15 15:48 | MHC.CM.PN ---
per rounds pt not medically ready for dc
[2024-09-15 19:26] VITALS: BP 128/70; PULSE 70; RESP 18; TEMP 37.3; O2SAT 93
[2024-09-15 20:43] VITALS: BP 128/70; PULSE 70
[2024-09-15] MEDS: Metoprolol Succinate ER 25 MG TAB.ER.24H PO (20:43)
[2024-09-15] MEDS: Divalproex Sodium ER 250 MG TAB.ER.24H PO (20:43)
[2024-09-15] MEDS: Psyllium seed 3.7 GM PACKET PO (20:45)
[2024-09-16] MEDS: 0.9 % Sodium Chloride Flush 3 ML SYRINGE IVFLUSH ×2 (00:49→09:22)
[2024-09-16 03:00] VITALS: BP 126/67; PULSE 77; RESP 20; TEMP 36.4; O2SAT 93
[2024-09-16 06:16] LABS: Creatinine Clr Calc Pharmacy 66.8; Estimated Glomerular Filt Rate 59
[2024-09-16 07:50] VITALS: BP 135/72; PULSE 50; RESP 18; TEMP 36.5; O2SAT 93
[2024-09-16 09:17] VITALS: BP 140/68; PULSE 60
[2024-09-16] MEDS: Metoprolol Succinate ER 25 MG TAB.ER.24H PO (09:17)
[2024-09-16] MEDS: Divalproex Sodium ER 250 MG TAB.ER.24H PO (09:22)
[2024-09-16] MEDS: Psyllium seed 3.7 GM PACKET PO (09:23)
--- NOTE | 2024-09-16 09:48 | PM.DS ---
DS: Providers Provider Date of Service: 09/16/24 Date of admission: 09/13/24 23:05 Date of discharge: 09/16/24 Primary care physician: Augustine Dan DO DS: Diagnosis Discharge Diagnosis (1) Aspiration pneumonia: Status: Acute (2) New onset a-fib: Status: Acute DS: Summary Hospital Course Hospital Course: History and physical as per admitting provider. This has a 59-year-old male, resident of [facility] with pertinent history of intellectual delay, paroxysmal atrial fibrillation on Eliquis status post ablation, hypertension, seizure disorder, mood disorder, dysphagia with history of aspiration pneumonia, neuroleptic malignant syndrome who was sent to the emergency department for evaluation of fever. Patient is a poor historian and history obtained with the help of chart review and ER provider. Patient was found to be with chills and shaking at outside facility, temperature was found to be 102.3 degrees F. Patient had an episode of vomiting with EMS. He denies any complaints at the time of my evaluation. Does have history of dysphagia with previous hospitalization due to sepsis and hypoxia in the setting of aspiration pneumonia. Unable to obtain complete review of systems. In the emergency department, patient was found to be septic and imaging concerning for right-sided pneumonia. 59-year-old man from [facility] treated for aspiration pneumonia. Treated with IV vancomycin and Zosyn. Seen evaluated by speech therapy who recommended chopped advanced diet with one-to-one feedings. Patient has not been hypoxic and has not required oxygen. Plan will be to discharge back to [facility] facility with Augmentin for a few more days. Paroxysmal atrial fibrillation. Continue metoprolol and Eliquis Seizure disorder. Stable and well compensated. Continue outpatient therapy Time Attestation Discharge Coordination Time (in mins): 40 Quality: Safe Use of Opioids Does Pt have an Active Cancer Diagnosis on the Problem List?: No Quality: Stroke Does the patient have a stroke diagnosis?: No Physical Exam Exam: Exam: Appearing in no acute distress head is normocephalic atraumatic eyes pupils are PERRLA sclera is anicteric mouth throat mucous membranes are intact and moist neck is supple no lymphadenopathy, no JVD noted lung sounds are clear to auscultation heart regular rate rhythm, clear S1, S2 positive bowel sounds, abdomen is soft, nontender neuro patient is alert x3, no focal deficits Vital Signs: Vital Signs: Last Vital Signs Temp 97.7 F 09/16/24 07:50 Pulse 60 09/16/24 09:17 Resp 18 09/16/24 07:50 BP 140/68 H 09/16/24 09:17 Pulse Ox 93 09/16/24 07:50 O2 Del Method Room Air 09/16/24 07:50 BMI result Body Mass Index 36.6 DS: Data Data Completed and Pending Completed studies during hospitalization [Text1]: Procedures Insertion of Infusion Device into Superior Vena Cava, Percutaneous Approach (03/09/23) Introduction of Vasopressor into Central Vein, Percutaneous Approach (03/09/23) Supplement Abdominal Wall with Synthetic Substitute, Open Approach (03/15/22) Ultrasonography of Superior Vena Cava, Guidance (03/09/23) Labs on day of discharge: Laboratory Results - last 24 hr 09/15/24 09/15/24 09/16/24 12:05 21:09 05:37 Creatinine 1.25 Estim Creat Clear Calc 66.8 Estimated GFR 59 Vancomycin Trough 22.3 H Random Vancomycin 15.2 Preliminary micro results at discharge 09/13/24 19:16 Blood Culture - Preliminary Blood - Venous No growth after 48 hours. 09/13/24 19:17 Blood Culture - Preliminary Blood - Venous No growth after 48 hours. Discharge Plan Discharge Anticipated Discharge Date/Time: 09/16/24 09:43 Patient Disposition: Xfer SNF Discharge Diagnosis: Aspiration pneumonia Referrals: Augustine Dan DO [Primary Care Provider, Hospitalist] - 1 Week Discharge Medications: New amoxicillin-pot clavulanate 875-125 mg tablet 1 tab PO BID Qty: 10 0RF Continued (DME) abdominal binder 2xl See Rx Instructions .Route .MEDSUPPLY Qty: 1 0RF Rx Instructions: Pt to wear binder during daytime hours - may remove for shower diazepam 2 mg Tablet 2 mg PO TID melatonin 1 mg Tablet 1 mg PO BEDTIME pregabalin 100 mg Capsule 100 mg PO TID cholecalciferol (vitamin D3) 25 mcg (1,000 unit) Tablet 50 mcg PO DAILY polyethylene glycol 3350 [Miralax] 17 gram/dose powder 17 g PO BID Rx Instructions: dilute in 6-8 ounces of fluid sennosides-docusate sodium 8.6-50 mg Tablet 1 tab-cap PO DAILY midodrine 5 mg Tablet 5 mg PO TID@0900,1400,1800 Rx Instructions: do not give last dose of day after 6PM or within 4 hrs of bedtime metoprolol succinate 25 mg Tablet Extended Release 24 Hr 25 mg PO BID Protocol: Hold for SBP/HR < HOLD for SBP < : 100 HOLD for HR < : 60 divalproex [Depakote ER] 250 mg Tablet Extended Release 24 Hr 250 mg PO BID Rx Instructions: with 500 mg = 750mg bid bisacodyl 10 mg Suppository 10 mg MI DAILY PRN (Reason: Constipation) Rx Instructions: if senna infective Fleet Enema 19-7 gram/118 mL Enema 118 ml MI DAILY PRN (Reason: Constipation) Rx Instructions: if bisacodyl ineffective lactulose 10 gram/15 mL Solution 30 ml PO DAILY witch monica 20 % Pads, Medicated 1 pad TOPICAL NEEDED PRN (Reason: Hemorrhoids on anus) acetaminophen 325 mg Tablet 650 mg PO Q6H PRN (Reason: Fever Or Pain) hydroxyzine HCl 50 mg Tablet 50 mg PO ONCE PRN (Reason: Anxiety) psyllium Packet 1 packet PO BID dextromethorphan-guaifenesin [Tussin DM] 10-100 mg/5 mL Syrup 10 ml PO Q4H PRN (Reason: Cough/congestion) alum-mag hydroxide-simeth 200-200-20 mg/5 mL Suspension 30 ml PO Q4H PRN (Reason: HEARTBURN OR NAUSEA) Rx Instructions: administer between meals and at bedtime ondansetron 4 mg Tablet,Disintegrating 4 mg PO Q6H PRN (Reason: NAUSEA, VOMITING) Eliquis 5 mg Tablet 5 mg PO BID Qty: 0 0RF Rx Instructions: hold 09/11/24-09/14/24 divalproex [Depakote ER] 500 mg tablet extended release 24 hr 500 mg PO BID Rx Instructions: with 250 mg = 750mg bid Discharge Orders: Discharge Order (Routine); Ordered 09/16/24 Ordered By: Sammie Mccurdy Diet: Advance to usual diet Activity on Discharge: As tolerated Stand Alone Forms: Patient Portal Discharge page Print Language: Congolese Activity Restrictions/Additional Instructions: Speech Pathologist Impression: Mild to moderate persisting dypshagia Risk of Aspiration Due to: Hx PNA Liquid Consistency and Strategies for Safe Swallow: Liquid Intake Recommendation: Thin Liquid Intake Strategies: Solid Food Consistency: Dietary Recommendations: Chopped/Advanced (NDD3) Additional Modifications to Solid Foods: Recommend 1:1 supervision with cues as needed: take one bite at a time, chew food well, swallow food that's in mouth before talking or taking another bite, take small sips, alternate bites/sips, remain upright during PO intake. Oral Medication Intake: Whole with Liquid Supervision While Eating and Drinking for Safe Swallow: Direct Supervision (1:1) Care Plan Goals: Complete course of antibiotics Health Concerns: Aspiration pneumonia Plan of Treatment: Follow up with primary care provider as needed Take all medications as prescribed Assessment: See discharge summary
--- NOTE | 2024-09-16 10:32 | MHC.CM.PN ---
pt to be transferred at 11;30 BACK TO [facility] PROVIDING TRANSPORT
--- NOTE | 2024-09-16 10:46 | MHC.CM.PN ---
pts sister scotty notified of dc
== END 2024-09-16 11:59 | disposition skilled nursing facility (03) | DRG 720 ==
LOC: HO.ED 23:50 → HO.EDOVER 09-14 01:37 → HO.S3 09-14 05:36
PROVIDERS: Admitting Provider Student in an Organized Health Care Education/Training Program; Emergency Provider Emergency Medicine; PCP Hospitalist; Visit Provider Nurse Practitioner Acute Care
DX: A41.9 Sepsis, unspecified organism (principal); J69.0 Pneumonitis due to inhalation of food and vomit; I48.0 Paroxysmal atrial fibrillation; F39 Unspecified mood [affective] disorder; G40.909 Epilepsy, unspecified, not intractable, without status epilepticus; Z20.822 Contact with and (suspected) exposure to COVID-19; Z79.01 Long term (current) use of anticoagulants; Z79.899 Other long term (current) drug therapy
CPT/HCPCS: 36415; 70450; 71045; 74177; 80048; 80076; 80164; 80202; 81001; 81003; 82565; 82803; 83605; 83690; 83735; 85025; 85610; 86140; 87040; 87637; 92526; 92610; 93005; 99285; J0131; J1650; J2543; J3373; J3374; J7120; Q9967

== ENCOUNTER → 2024-09-13 18:36 | Outpatient (BNV) | payer MEDICAID, SELFPAY | PROVIDERS: Emergency Provider Emergency Medicine; PCP Hospitalist; Visit Provider Radiology Diagnostic Radiology | DX: R41.82 Altered mental status, unspecified (principal); R50.9 Fever, unspecified | CPT/HCPCS: 70450; 71045; 74177 ==

== ENCOUNTER → 2024-09-13 18:39 | Outpatient (BNV) | payer MEDICAID, SELFPAY | PROVIDERS: Admitting Provider Student in an Organized Health Care Education/Training Program; Emergency Provider Emergency Medicine; PCP Hospitalist; Visit Provider Internal Medicine | DX: R53.1 Weakness (principal); R41.82 Altered mental status, unspecified; I49.1 Atrial premature depolarization | CPT/HCPCS: 93010 ==

== ENCOUNTER 2024-09-13 23:05 | Outpatient (BNV) | payer MEDICAID, SELFPAY | END 2024-09-14 06:05 | PROVIDERS: Admitting Provider Student in an Organized Health Care Education/Training Program; Emergency Provider Emergency Medicine; PCP Hospitalist; Visit Provider Internal Medicine | DX: R00.1 Bradycardia, unspecified (principal) | CPT/HCPCS: 93010 ==

== ENCOUNTER → 2024-09-13 23:05 | Outpatient (BNV) | payer MEDICAID, SELFPAY | PROVIDERS: Admitting Provider Student in an Organized Health Care Education/Training Program; Emergency Provider Emergency Medicine; PCP Hospitalist; Visit Provider Student in an Organized Health Care Education/Training Program | DX: J69.0 Pneumonitis due to inhalation of food and vomit (principal); I48.91 Unspecified atrial fibrillation | CPT/HCPCS: 99232 ==

== ENCOUNTER 2024-10-14 15:13 | Inpatient (IN) | payer MEDICAID, SELFPAY ==
[2024-10-14] VITALS (7 sets, daily range): BP systolic 94–113; BP diastolic 55–75; PULSE 55–76; RESP 16–24; TEMP 36.7–38.3; O2SAT 92–96; BMI 28.8
--- NOTE | ~2024-10-14 | XR_ITS ---
CLINICAL HISTORY: bruising mid arm s p fall --- Additional Notes or Special Instructions: not ready [id number] [id number] Two views of the right humerus. COMPARISON: None provided. FINDINGS: Humerus appears intact. Large osteophyte present along the inferior margin of the humeral head. Decreased glenohumeral joint space with osteophytes along the inferior margin of the glenoid. There is remodeling of the glenoid and humeral head. Mild degenerative changes of the right acromioclavicular joint. Visualized portions of the right elbow appear intact. IMPRESSION: 1. No radiographic evidence of acute injury to the right humerus. 2. Advanced degenerative changes of the right glenohumeral joint. This document has been electronically signed by: Benji Riddle MD on 10/14/2024 18:03:18
--- NOTE | ~2024-10-14 | XR_ITS ---
CLINICAL HISTORY: cough, hx of aspiration --- Additional Notes or Special Instructions: not ready [id number] [id number] 1 view chest x-ray Comparison: CR - XR CHEST 1V - 09/13/24 18:40 EDT Findings: No consolidation or effusion. Heart size is normal. No acute fracture. Degenerative changes of the shoulders. IMPRESSION: 1. No acute findings. This document has been electronically signed by: Abiodun Cast MD on 10/14/2024 23:54:08
--- NOTE | ~2024-10-14 | CT_ITS ---
CLINICAL HISTORY: fall with headstrike, on thinners CT head without contrast. COMPARISON: CT head dated 09/13/24 at 18:38 EDT FINDINGS: Small amount of layering fluid present within the maxillary sinuses and ethmoid sinuses. Mastoid air cells are clear. No calvarial fracture. No evidence for mass or mass effect. No intracranial hemorrhage or abnormal extra-axial fluid collection. No CT evidence of acute infarct. Enlargement of the lateral and 3rd ventricles, similar to prior imaging. Posterior fossa appears unremarkable. IMPRESSION: 1. No acute intracranial findings. Specifically, no evidence of intracranial hemorrhage. 2. Stable enlargement of the lateral and 3rd ventricles, which can be associated with normal pressure hydrocephalus. This document has been electronically signed by: Benji Riddle MD on 10/14/2024 18:52:57
--- NOTE | 2024-10-14 15:40 | ECG_ITS ---
Test Reason : SEPSIS Blood Pressure : */* mmHG Vent. Rate : 73 BPM Atrial Rate : * BPM P-R Int : * ms QRS Dur : 80 ms QT Int : 342 ms P-R-T Axes : * -21 26 degrees QTcB Int : 376 ms Poor data quality with Normal sinus rhythm Low voltage QRS Abnormal ECG When compared with ECG of 14-Sep-2024 06:05, Vent. rate has increased by 32 bpm Referred By: Angela Cardenas Electronically Signed By: ROSITA FREGOSO MD
[2024-10-14] MEDS: LACTATED RINGERS 2892 ML IV (15:48)
--- NOTE | 2024-10-14 15:53 | ED.GENADULT ---
HPI - General Adult General Chief complaint: Altered Mental Status Stated complaint: AMS, ?UTI, fever Time Seen by Provider: 10/14/24 15:43 Source: patient, EMS, RN notes reviewed and old records reviewed Mode of arrival: EMS Limitations: altered mental status History of Present Illness ED Provider: Bernard HPI narrative: Patient is a 59-year-old male with history of cognitive impairment, HTN, aspiration pneumonia, seizure disorder, history of DVT and PE on Eliquis, OCD presenting to the emergency department via EMS from [facility] for altered mental status. Staff reported to EMS that patient had a fall yesterday without head strike or loss of consciousness, he is on Eliquis. Last night developed a fever of 101.6 was given Tylenol. Today sent to the emergency department for further evaluation. Per staff, patient typically alert and oriented x4, today only alert and oriented x2. Patient states that he ?feels like shit. ? MD complaint: AMS Related Data Home Medications ?Medication ?Instructions ?Recorded ?Confirmed diazepam 2 mg tablet 2 mg PO TID 11/17/19 10/14/24 melatonin 1 mg tablet 1 mg PO BEDTIME 11/17/19 10/14/24 cholecalciferol (vitamin D3) 25 50 mcg PO DAILY 02/13/20 10/14/24 mcg (1,000 unit) tablet pregabalin 100 mg capsule 100 mg PO TID 02/13/20 10/14/24 polyethylene glycol 3350 17 17 g PO BID 03/09/22 10/14/24 gram/dose oral powder (Miralax) divalproex 500 mg tablet,extended 500 mg PO BID 04/20/22 10/14/24 release 24 hr (Depakote ER) aluminum-mag hydroxide-simethicone 30 ml PO Q4H PRN HEARTBURN OR 05/11/22 10/14/24 200 mg-200 mg-20 mg/5 mL oral susp NAUSEA dextromethorphan-guaifenesin 10 10 ml PO Q4H PRN Cough/congestion 05/11/22 10/14/24 mg-100 mg/5 mL oral syrup (Tussin DM) psyllium 1 packet PO BID 05/11/22 10/14/24 metoprolol succinate 25 mg 25 mg PO BID 02/23/24 10/14/24 tablet,extended release 24 hr midodrine 5 mg tablet 5 mg PO TID@0900,1400,1800 02/23/24 10/14/24 sennosides 8.6 mg-docusate sodium 1 tab-cap PO DAILY PRN Constipation 02/23/24 10/14/24 50 mg tablet ondansetron 4 mg disintegrating 4 mg PO Q6H PRN NAUSEA, VOMITING 03/20/24 10/14/24 tablet lactulose 10 gram/15 mL oral 30 ml PO DAILY Constipation 06/06/24 10/14/24 solution witch monica 20 % topical pads 1 pad topical NEEDED PRN 06/06/24 10/14/24 Hemorrhoids on anus acetaminophen 325 mg tablet 650 mg PO Q6H PRN Fever Or Pain 09/14/24 10/14/24 bisacodyl 10 mg rectal suppository 10 mg IL DAILY PRN Constipation 10/14/24 10/14/24 sennosides 8.6 mg-docusate sodium 1 tab-cap PO BEDTIME 10/14/24 10/14/24 50 mg tablet sodium phosphates 19 gram-7 118 ml IL DAILY PRN Constipation 10/14/24 10/14/24 gram/118 mL enema (Fleet Enema) Previous Rx's ?Medication ?Instructions ?Recorded abdominal binder #1 ea 03/21/22 apixaban 5 mg tablet (Eliquis) 5 mg PO BID #0 tabs 03/23/24 Allergies Allergy/AdvReac Type Severity Reaction Status Date / Time aripiprazole (From ABILIFY) Allergy Severe Involuntary Verified 10/14/24 15:35 Spasms droperidol (From INAPSINE) Allergy Severe Involuntary Verified 10/14/24 15:35 Spasms haloperidol (From HALDOL) Allergy Severe Involuntary Verified 10/14/24 15:35 Spasms prochlorperazine (From Allergy Severe Involuntary Verified 10/14/24 15:35 COMPAZINE) Spasms promethazine (From PHENERGAN) Allergy Severe Involuntary Verified 10/14/24 15:35 Spasms sulfamethoxazole (From Allergy Severe Anaphylaxis Verified 10/14/24 15:35 BACTRIM) trimethoprim (From BACTRIM) Allergy Severe Anaphylaxis Verified 10/14/24 15:35 Review of Systems Review of Systems: As per HPI Yes all other systems are reviewed and are negative Constitutional: Constitutional: Reports as per HPI Neurologic: Reports confusion Psychiatric: Psychiatric: Reports confusion [facility] Past Medical History Medical History Encounter for cardioversion procedure Neurogenic bladder Constipation Resides in half-way facility History of GI bleed Seizure disorder Urinary incontinence Osteoarthritis Rectal prolapse Cognitive impairment Hx of deep venous thrombosis Thrombocytopenia Bilateral cataracts Personal history of COVID-19 Diverticular disease Flexion contractures OCD (obsessive compulsive disorder) History of hemodialysis Depression Neuroleptic malignant syndrome Epilepsy Deformity of left hand Generalized anxiety disorder Major depressive disorder Mild cognitive impairment Hypertension Surgical History History of incisional hernia repair (03/15/22) History of repair of rectocele Hx of appendectomy Hx of colonoscopy Family History Family History Sister Breast CA, Onset Age: 51 Ovarian ca, Onset Age: 55 Father Prostate CA, Onset Age: 70 Mother Colorectal cancer, Onset Age: 39 Kidney carcinoma, Onset Age: 67 Maternal Grandmother Colorectal cancer, Onset Age: 70 Maternal Aunt Colorectal cancer Social History Social History Household Members: Other Household Members Other:: From [facility] Facility Housing: [facility] Housing Other:: patient coming from [facility] Are you a primary healthcare representative to a significant other at home: No Unable to assess alcohol history related to: Unable to respond Alcohol intake: never Comment: [facility] [place] [facility] [place] Patient Tobacco Use Status: Never used Tobacco Smoked in Last 30 Days: No e-Cigarette/Vaping Use: Never Used Second Hand Smoke Exposure: No Use of substances other than those prescribed or required for medical reasons: No Advance Directives: Yes Advance Directives on File: Yes Advance Directives Date on File: 11/21/19 Nutrition Risks: No Nutritional Risk service: No Current occupational status: disabled Physical Exam ED Vital Signs: Vital Signs - 24 hr 10/14/24 15:26 10/14/24 16:25 10/14/24 18:01 Temperature 100.1 F 101.0 F H Pulse Rate 76 71 74 Respiratory Rate 22 H 18 24 H Blood Pressure 105/57 L 105/55 L 113/68 Pulse Oximetry 94 94 94 Oxygen Delivery Method Room Air Room Air Room Air 10/14/24 18:23 10/14/24 19:20 Temperature 98.3 F 98.4 F Pulse Rate 67 75 Respiratory Rate 22 H 18 Blood Pressure 113/75 94/55 L Pulse Oximetry 96 95 Oxygen Delivery Method Room Air Room Air BMI result Body Mass Index 28.8 Vital signs have been reviewed and appear to be correct. Blood pressure normal. Heart rate normal. Respiratory rate normal. Temperature elevated. Oxygen saturation normal. Const General: cooperative, no acute distress, alert, awake and confusion Orientation/consciousness: oriented to person, oriented to place, confusion and Other orientation findings (unable to state year, able to name the president) Limitations: altered mental status [facility] Head: Yes normocephalic and Yes atraumatic Ears: hearing grossly normal bilaterally, external ears normal and TM's normal bilaterally General nose exam: Normal external nose present Face and sinus: Yes face symmetric Mouth: oropharynx normal and moist mucous membranes Throat: Yes uvula midline Eyes Pupils: Equal, round and reactive pupils present Neck Neck: Yes normal visual inspection and Yes supple Resp Effort & Inspection: normal respiratory effort and able to speak in complete sentences Auscultation: clear to auscultation bilaterally Cardio Rate: regular rate Rhythm: regular rhythm Heart sounds: S1 normal heart sound present and S2 normal heart sound present GI Palpation (GI): Soft to palpation and nontender Auscultation: normoactive bowel sounds General: Yes no CVA tenderness Back/Spine/Pelvis Back: no CVA tenderness Cervical Spine: No Cervical spine tenderness and No step off deformity Thoracic/Lumbar Spine: No thoracic spinal tenderness and No lumbar spinal tenderness Pelvis: no pain with anterior-posterior compression and no pain with lateral compression Skin General skin exam: elasticity normal and turgor normal Neuro General: oriented to person, oriented to place, moves all extremities, no focal motor deficits, CN's II-XI intact bilaterally and confusion Cranial nerves: Yes Equal, round and reactive pupils present Cognition (Neuro): normal cognition Extrem General: Yes full ROM, Yes no pedal edema and Yes no calf tenderness Right upper extremity: shoulder/upper arm (large area of swelling and ecchymosis to mid right upper arm) and Extremity exam: right hand Details: vascular exam Details: radial pulse present and normal capillary refill and normal ROM of fingers Psych Mental Status: mental status grossly normal Affect: normal affect Thought process: Normal thought process present Course Reevaluation(s) Reevaluation #1: Approximately 17:00 PM 10/14/2024 (Dr. Shaheen Saucedo): I assumed care of this patient around this time patient was pending admission after CT and x-ray. Working diagnosis is sepsis however the patient is COVID positive. I discussed the case with the hospitalist as the patient met sepsis criteria. Urine is pending at this time but there is no other clear bacterial infectious source. He was covered broadly and is not hypotensive Medications Administered Generic Name Dose Route Start Last Admin Trade Name Freq PRN Reason Stop Dose Admin Diazepam 2 mg 10/15/24 09:00 10/15/24 09:14 Diazepam 2 Mg Tablet PO 2 mg TID MAIA Administration Divalproex Sodium 500 mg 10/14/24 22:30 10/15/24 09:06 Divalproex Sodium Er 500 Mg Tab.Er.24h PO 500 mg BID MAIA Administration Lactulose 20 gm 10/15/24 09:00 10/15/24 09:14 Lactulose 20 Gm/30 Ml Solution PO 20 gm DAILY MAIA Administration Melatonin 1 mg 10/14/24 22:30 10/14/24 23:00 Melatonin 3 Mg Tablet PO 1 mg BEDTIME MAIA Administration Polyethylene Glycol 17 gm 10/15/24 09:00 10/15/24 09:14 Polyethylene Glycol 3350 17 Gm Powd.Pack PO 17 gm BID MAIA Administration Pregabalin 100 mg 10/15/24 09:00 10/15/24 09:06 Pregabalin 100 Mg Capsule PO 100 mg TID MAIA Administration Sodium Chloride 3 ml 10/15/24 00:00 10/15/24 01:32 0.9 % Sodium Chloride Flush 3 Ml Syringe IVFLUSH Not Given QSHIFT MAIA Vitamin D 50 mcg 10/15/24 09:00 10/15/24 09:06 Cholecalciferol (Vitamin D3) 25 Mcg Tablet PO 50 mcg DAILY MAIA Administration Discontinued Medications Generic Name Dose Route Start Last Admin Trade Name Freq PRN Reason Stop Dose Admin Ceftriaxone Sodium 2 gm 10/14/24 15:44 10/14/24 15:59 Ceftriaxone Sodium 2 Gm Vial IVPUSH 10/14/24 15:45 2 gm ONCE ONE Administration Enoxaparin Sodium 40 mg 10/14/24 20:00 10/14/24 20:26 Enoxaparin Sodium 40 Mg/0.4 Ml Syringe SUBCUT 40 mg Q24H MAIA Administration Lactated Ringer's 2,892 mls @ 2,892 mls/hr 10/14/24 15:40 10/14/24 17:59 Lr 30 ml/kg infuse over 1 hr (2892 ml) 10/14/24 16:39 Infused IV Infusion .Q1H ONE Acetaminophen 1,000 mg in 100 mls @ 400 mls/hr 10/14/24 15:40 10/14/24 16:41 Ofirmev IV 10/14/24 15:54 Infused ONCE ONE Infusion Medical Decision Making Medical Decision Making [facility] Narrative: Patient is a 59-year-old male with history of cognitive impairment, HTN, aspiration pneumonia, seizure disorder, history of DVT and PE on Eliquis, OCD presenting to the emergency department via EMS from [facility] for altered mental status. On exam patient is awake, A+Ox3, VS WNL, afebrile, normal neurological exam without focal deficits, physical exam findings as above. Given reported symptoms and physical exam findings, initial differential includes but is not limited to sepsis, aspiration pneumonia, viral illness, UTI, ICH, right humerus contusion vs fracture. Sepsis protocol initiated, IV abx and fluids ordered. Viral serology positive for Covid. Labs notable for no leukocytosis, normal lactic. Patient signed out to Dr. Saucedo pending imaging results and anticipated admission. Differential Diagnosis Differential Diagnoses: The differential diagnosis associated with the presentation includes As per [facility] Admission/Observation Consideration of admission/observation: Escalation of care including admission/observation considered Lab Data [facility] Lab Attestation statement: I reviewed the patient's lab results. as per [facility] 10/15/24 04:03 10/15/24 04:03 Labs: Lab Results 10/14/24 10/14/24 10/14/24 Range/Units 15:55 15:56 15:58 WBC 6.0 (4.8-10.8) X10*3/uL RBC 4.27 L (4.60-5.80) X10*6/uL Hgb 13.1 L (14.0-18.0) g/dl Hct 38.8 L (42.0-52.0) % MCV 90.9 (80.0-98.0) fL MCH 30.7 (27.0-33.0) pg MCHC 33.8 (31.0-36.0) g/dl RDW 13.6 (11.0-16.0) % Plt Count 76 L (160-400) X10*3/uL MPV 11.4 (9.4-12.4) fL Immature Gran % (Auto) 0.3 (0.0-0.4) % Neut % (Auto) 63.5 (45-73) % Lymph % (Auto) 17.6 L (20-40) % Josephine % (Auto) 15.4 H (2-11) % Eos % (Auto) 2.7 (0-4) % Baso % (Auto) 0.5 (0-2) % Lymph # (Auto) 1.1 L (1.2-4.9) X10*3/uL Josephine # (Auto) 0.9 (0.1-1.2) X10*3/uL Eos # (Auto) 0.2 (0.0-0.4) X10*3/uL Baso # (Auto) 0.0 (0.0-0.2) X10*3/uL Abs Immat Gran (auto) 0.02 (0.00-0.03) X10*3/uL Absolute Neuts (auto) 3.8 (2.0-8.3) x10*3/uL Absolute Nucleated RBC 0.000 (0.0-0.012) X10*3/uL Nucleated RBC % (auto) 0.0 (0.0-0.2) /100WBC Sodium 144 (135-145) mmol/L Potassium 3.9 (3.3-5.1) mmol/L Chloride 106 (96-108) mmol/L Carbon Dioxide 30 H (22-29) mmol/L Anion Gap 12 (12-20) BUN 19 H (9-16) mg/dL Creatinine 0.99 (0.5-1.4) mg/dL Estim Creat Clear Calc 96.7 Estimated GFR > 60 Random Glucose 99 (60-115) mg/dL Lactic Acid 1.3 (0.5-2.0) mmol/L Calcium 8.7 D (8.4-10.2) mg/dL Magnesium 2.0 (1.6-2.6) mg/dL Total Bilirubin 0.4 (0.0-1.0) mg/dL Direct Bilirubin 0.1 (0.0-0.5) mg/dL AST 18 (5-37) U/L ALT 6 (0-40) U/L Alkaline Phosphatase 42 (39-117) U/L B-Natriuretic Peptide 57 (<100) pg/mL Total Protein 6.4 L (6.5-8.0) g/dL Albumin 3.8 (3.5-5.0) g/dL Lipase 11 (8-78) U/L Urine Color Urine Appearance Urine pH (5.0-9.0) Ur Specific [place] (1.005-1.025) Urine Protein (Neg-Trace) mg/dL Urine Glucose (UA) (Negative) mg/dL Urine Ketones (Negative) mg/dL Urine Blood (Negative) Urine Nitrite (Negative) Ur Leukocyte Esterase (Negative) COVID-19 (DIEGO) Positive A (Negative) COVID-19 Clin Com See Note 10/14/24 Range/Units 19:49 WBC (4.8-10.8) X10*3/uL RBC (4.60-5.80) X10*6/uL Hgb (14.0-18.0) g/dl Hct (42.0-52.0) % MCV (80.0-98.0) fL MCH (27.0-33.0) pg MCHC (31.0-36.0) g/dl RDW (11.0-16.0) % Plt Count (160-400) X10*3/uL MPV (9.4-12.4) fL Immature Gran % (Auto) (0.0-0.4) % Neut % (Auto) (45-73) % Lymph % (Auto) (20-40) % Josephine % (Auto) (2-11) % Eos % (Auto) (0-4) % Baso % (Auto) (0-2) % Lymph # (Auto) (1.2-4.9) X10*3/uL Josephine # (Auto) (0.1-1.2) X10*3/uL Eos # (Auto) (0.0-0.4) X10*3/uL Baso # (Auto) (0.0-0.2) X10*3/uL Abs Immat Gran (auto) (0.00-0.03) X10*3/uL Absolute Neuts (auto) (2.0-8.3) x10*3/uL Absolute Nucleated RBC (0.0-0.012) X10*3/uL Nucleated RBC % (auto) (0.0-0.2) /100WBC Sodium (135-145) mmol/L Potassium (3.3-5.1) mmol/L Chloride (96-108) mmol/L Carbon Dioxide (22-29) mmol/L Anion Gap (12-20) BUN (9-16) mg/dL Creatinine (0.5-1.4) mg/dL Estim Creat Clear Calc Estimated GFR Random Glucose (60-115) mg/dL Lactic Acid (0.5-2.0) mmol/L Calcium (8.4-10.2) mg/dL Magnesium (1.6-2.6) mg/dL Total Bilirubin (0.0-1.0) mg/dL Direct Bilirubin (0.0-0.5) mg/dL AST (5-37) U/L ALT (0-40) U/L Alkaline Phosphatase (39-117) U/L B-Natriuretic Peptide (<100) pg/mL Total Protein (6.5-8.0) g/dL Albumin (3.5-5.0) g/dL Lipase (8-78) U/L Urine Color Yellow Urine Appearance Clear Urine pH 6.0 (5.0-9.0) Ur Specific [place] 1.015 (1.005-1.025) Urine Protein Negative (Neg-Trace) mg/dL Urine Glucose (UA) Negative (Negative) mg/dL Urine Ketones Trace (Negative) mg/dL Urine Blood Negative (Negative) Urine Nitrite Negative (Negative) Ur Leukocyte Esterase Negative (Negative) COVID-19 (DIEGO) (Negative) COVID-19 Clin Com External Record Review External record reviewed: Inpatient record, Office record and Outpatient record Discharge Plan Discharge Clinical Impression: COVID-19 Patient Disposition: Admitted As Inpatient
--- NOTE | 2024-10-14 16:03 | PC.NURSE ---
pt came to ED today via EMS from [facility]. Report was that yesterday had a mechanical fall without headstrike and no eval at ED yesterday. Last night staff at [facility] recorded a temp of over 101 and gave some tylenol. Today, fever continues and pt was sent in. Pt also appeared confused and not fully oriented. Per report he is usually AOX4, and it now AOx2 with forgetfulness and some on/off confusion. He has a hx of a TBI. IV established by EMS. Triage vitals soft BP 105/57, HR WNL, tachypneic 24 and temp 101.5 oral. MD Angela Cardenas and Malu COLD MOLDING PRESS OPERATOR notified. Sepsis protocol initiated. Upon return to room after notifying provider pt is sitting up, attempting to cough, not breathing with red face. Hypoxic in the 80s. Shortly, pt clears secretions and is breathing. Aspiration risk in chart - appears pt choked on his own saliva. O2 applied, suction established. At this time breathing back to baseline. Labs drawn and ABX given after 1st set of cultures due to concern that the 2nd set would but be drawn in time.
[2024-10-14 16:06] LABS: MANUAL DIFF FLAG NO
[2024-10-14 16:12] LABS: Hematocrit 38.8 % (42.0-52.0); Imm Gran Abs Auto 0.02 X10*3/uL (0.00-0.03); Imm Gran Pct Auto 0.3 % (0.0-0.4); NRBC Abs Auto 0.000 X10*3/uL (0.0-0.012); NRBC Pct Auto 0.0 /100WBC (0.0-0.2); PLT CLUMP 1; SCAN SMEAR FLAG 1
[2024-10-14 16:14] LABS: Hemoglobin 13.1 g/dl (14.0-18.0); Lymphocytes Absolute Auto 1.1 X10*3/uL (1.2-4.9); Mean Corpuscular HGB Conc 33.8 g/dl (31.0-36.0); Mean Corpuscular Hemoglobin 30.7 pg (27.0-33.0); Mean Corpuscular Volume 90.9 fL (80.0-98.0); Red Blood Count 4.27 X10*6/uL (4.60-5.80); White Blood Count 6.0 X10*3/uL (4.8-10.8)
[2024-10-14 16:15] LABS: Platelet Count 76 X10*3/uL (160-400)
[2024-10-14 16:21] LABS: COVID-19 Test Positive (Negative); IDNOW Serial# 55D5AD1C
[2024-10-14 16:27] LABS: Alanine Aminotransferase 6 U/L (0-40); Albumin Level 3.8 g/dL (3.5-5.0); Alkaline Phosphatase 42 U/L (39-117); Anion Gap 12 (12-20); Aspartate Amino Transferase 18 U/L (5-37); Blood Urea Nitrogen 19 mg/dL (9-16); Calcium 8.7 mg/dL (8.4-10.2); Carbon Dioxide 30 mmol/L (22-29); Chloride 106 mmol/L (96-108); Creatinine Clr Calc Pharmacy 96.7; Estimated Glomerular Filt Rate > 60; Lipase 11 U/L (8-78); Magnesium 2.0 mg/dL (1.6-2.6); Potassium 3.9 mmol/L (3.3-5.1); Sodium 144 mmol/L (135-145); Total Protein 6.4 g/dL (6.5-8.0)
--- NOTE | 2024-10-14 16:30 | ECG_ITS ---
Test Reason : SEPSIS Blood Pressure : */* mmHG Vent. Rate : 75 BPM Atrial Rate : 75 BPM P-R Int : 194 ms QRS Dur : 80 ms QT Int : 376 ms P-R-T Axes : 75 -11 29 degrees QTcB Int : 419 ms Normal sinus rhythm Normal ECG When compared with ECG of 14-Oct-2024 16:17, Sinus rhythm has replaced Junctional rhythm Referred By: Malu Wagner Electronically Signed By: ROSITA FREGOSO MD
[2024-10-14 16:32] LABS: B Type Natriuretic Peptide 57 pg/mL (<100)
--- OUTSIDE RECORDS SUMMARY | 2024-10-14 18:22 | XMS_ITS | Encounter Summary ---
Author Organization [employer] Address [address] [place] [address] Care Team Providers Care Cigarette Tester Name Role Phone Unavailable Primary Care [...]
--- OUTSIDE RECORDS SUMMARY | 2024-10-14 18:22 | XMS_ITS | Encounter Summary ---
Author Organization [employer] Address [address] [place] [address] Care Team Providers Care Community Youth Secretary Name Role Phone Augustine Dan MD Primary Care Provider Encounter Details Date Type Department Care Team (Late st Contact Info) Description 06/20/2024 Lab Requisition [facility] - Main Lab [address] [facility] [facility] [place] [address] Augustine Dan MD [address] [place] [address] [address] [place], [place] Major depressive disorder, recurrent, unspecified (CMS/HCC V24) [...] Associated Diagnosis Comments COMPLETE BLOOD COUNT Routine 06/20/2024 5:45 AM EDT Major depressive disorder, recurrent, unspecified (CMS/HCC V24) documented in this encounter Results * (ABNORMAL) Complete blood count (06/20/2024 5:45 AM EDT) WBC 5.5 4.8 - 10.8 K/mcL LAB HEMETOLOGY METHOD 06/20/2024 6:59 AM EDT [facility] RBC 4.90 4.50 - 5.50 M/[facility] LAB HEMETOLOGY METHOD 06/20/2024 6:59 AM EDT [facility] Hemoglobin 15.3 13.5 - 17.5 g/dL LAB HEMETOLOGY METHOD 06/20/2024 6:59 AM EDT [facility] Hematocrit 48.3 42.0 - 54.0 % LAB HEMETOLOGY METHOD 06/20/2024 6:59 AM EDT [facility] MCV 98.0 79.0 - 98.0 FL LAB HEMETOLOGY METHOD 06/20/2024 6:59 AM EDT [facility] MCH 31.0 27.0 - 32.0 pcg LAB HEMETOLOGY METHOD 06/20/2024 6:59 AM EDT [facility] MCHC 31.7(L) 32.0 - 37.0 g/dL LAB HEMETOLOGY METHOD 06/20/2024 6:59 AM EDT [facility] RDW 13.9 11.0 - 15.0 % LAB HEMETOLOGY METHOD 06/20/2024 6:59 AM EDT [facility] Platelets 130 130 - 400 K/mcL LAB HEMETOLOGY METHOD 06/20/2024 6:59 AM EDT [facility] MPV 11.7(H) 7.0 - 11.0 FL LAB HEMETOLOGY METHOD 06/20/2024 6:59 AM EDT [facility] NRBC 0.0 <1.0 % LAB HEMETOLOGY METHOD 06/20/2024 6:59 AM EDT [facility] NRBC Absolute 0.00 <0.10 K/mcL LAB HEMETOLOGY METHOD 06/20/2024 6:59 AM EDT [facility] Blood Venous blood specimen / Unknown 06/20/2024 5:45 AM EDT 06/20/2024 6:49 AM EDT us Augustine Dan MD LAB BLOOD ORDERABLES Final Resul t [facility] [address] [place] [address], documented in this encounter Visit Diagnoses Diagnosis Major depressive disorder, recurrent, unspecified (CMS/HCC V24) documented in this encounter Care Teams Community Youth Secretary Relationship Specialty Start Date End Date Augustine Dan MD [address] KALANI Camacho PCP - General Internal Medicine 04/21/24 documented as of this encounter
--- OUTSIDE RECORDS SUMMARY | 2024-10-14 18:22 | XMS_ITS | Encounter Summary ---
Author Organization [employer] Address [address] [place] [address] Care Team Providers Care Chess Instructor Name Role Phone Augustine Dan MD Primary Care Provider [phone] Encounter Details Date Type Department Care Team (Late st Contact Info) Description 12/12/2023 Lab Requisition [facility] - Main Lab [address] [place] [address] Augustine Dan MD [address] [place] [address] [address] KALANI Camacho Major depressive disorder, [...] AM EST) WBC 4.9 4.8 - 10.8 K/[facility] LAB HEMETOLOGY METHOD 12/12/2023 6:58 AM EST [facility] ([facility] LAB RBC 4.70 4.50 - 5.50 M/mcL LAB HEMETOLOGY METHOD 12/12/2023 6:58 AM [facility] Hemoglobin 14.3 13.5 - 17.5 g/dL LAB HEMETOLOGY METHOD 12/12/2023 6:58 AM [facility] LAB Hematocrit 44.8 42.0 - 54.0 % LAB HEMETOLOGY METHOD 12/12/2023 6:58 AM [facility] LAB MCV 94.5 79.0 - 98.0 FL LAB HEMETOLOGY METHOD 12/12/2023 6:58 AM [facility] LAB MCH 30.2 27.0 - 32.0 pcg LAB HEMETOLOGY METHOD 12/12/2023 6:58 AM [facility] LAB MCHC 31.9(L) 32.0 - 37.0 g/dL LAB HEMETOLOGY METHOD 12/12/2023 6:58 AM [facility] LAB RDW 13.6 11.0 - 15.0 % LAB HEMETOLOGY METHOD 12/12/2023 6:58 AM [facility] LAB Platelets 101(L) 130 - 400 K/mcL LAB HEMETOLOGY METHOD 12/12/2023 6:58 AM [facility] LAB MPV 12.1(H) 7.0 - 11.0 FL LAB HEMETOLOGY METHOD 12/12/2023 6:58 AM [facility] LAB NRBC 0.0 <1.0 % LAB HEMETOLOGY METHOD 12/12/2023 6:58 AM [facility] LAB NRBC Absolute 0.00 <0.10 K/mcL LAB HEMETOLOGY METHOD 12/12/2023 6:58 AM [facility] LAB Neutrophils Relative 43.6 % LAB HEMETOLOGY METHOD 12/12/2023 6:58 AM [facility] Lymphocytes Relative 40.1 % LAB HEMETOLOGY METHOD 12/12/2023 6:58 AM [facility] Monocytes Relative 11.2 % LAB HEMETOLOGY METHOD 12/12/2023 6:58 AM [facility] Eosinophils Relative 4.3 % LAB HEMETOLOGY METHOD 12/12/2023 6:58 AM [facility] Basophils Relative 0.8 % LAB HEMETOLOGY METHOD 12/12/2023 6:58 AM [facility] LAB Immature Granulocytes Relative 0.0 % LAB HEMETOLOGY METHOD 12/12/2023 6:58 AM [facility] LAB Neutrophils Absolute 2.13 1.50 - 7.00 K/mcL LAB HEMETOLOGY METHOD 12/12/2023 6:58 AM [facility] Lymphocytes Absolute 1.96 1.00 - 5.00 K/mcL LAB HEMETOLOGY METHOD 12/12/2023 6:58 AM [facility] Monocytes Absolute 0.55 0.20 - 1.00 K/mcL LAB HEMETOLOGY METHOD 12/12/2023 6:58 AM [facility] Eosinophils Absolute 0.21 0.00 - 0.50 K/mcL LAB HEMETOLOGY METHOD 12/12/2023 6:58 AM [facility] Basophils Absolute 0.04 0.00 - 0.20 K/mcL LAB HEMETOLOGY METHOD 12/12/2023 6:58 AM [facility] Immature Granulocytes Absolute 0.00 0.00 - 0.03 K/mcL LAB HEMETOLOGY METHOD 12/12/2023 6:58 AM [facility] Blood Venous blood specimen / Unknown 12/12/2023 5:05 AM EST 12/12/2023 6:26 AM EST us Augustnie Dna MD LAB BLOOD ORDERABLES Final Resul t [facility] [address] [place] [address], [place] [phone] * Valproic acid level, total (12/12/2023 5:05 AM EST) Valproic Acid, Total 78 50 - 100 mcg/mL LAB CHEMISTRY METHOD 12/12/2023 7:[address] [facility] Blood Venous blood specimen / Unknown 12/12/2023 5:05 AM EST 12/12/2023 6:26 AM EST us Augustine Dan MD LAB BLOOD ORDERABLES Final Resul t [facility] [address] [place] [address], [place] [phone] documented in this encounter Visit Diagnoses Diagnosis Major depressive disorder, recurrent, unspecified (CMS/HCC V24) documented in this encounter Care Teams Chess Instructor Relationship Specialty Start Date End Date Augustine Dan MD [address] [place] [address] Dr [address] [place], [place] PCP - General Internal Medicine 04/21/24 documented as of this encounter
--- OUTSIDE RECORDS SUMMARY | 2024-10-14 18:22 | XMS_ITS | Encounter Summary ---
Author Organization [employer] Address [address] [place] [address] Care Team Providers Care Receptionist Doctor'S Office Name Role Phone Augustine Dan MD Primary Care Provider [phone] Encounter Details Date Type Department Care Team (Late st Contact Info) Description 09/18/2024 Lab Requisition [facility] - Main Lab [address] [facility] [email or web address] [address] Augustine Dan MD [address] [place] [address] [address] KALANI Camacho Thrombocytopenia, unspecified (CMS/HCC V24); Encounter for screening for malignant neoplasm of prostate; Encounter for screening for lipoid disorders Social History Tobacco Use Types Packs/Day Years [...] Procedure Name Priority Date/Time Associated Diagnosis Comments PROSTATE SPECIFIC ANTIGEN SCREEN Routine 09/18/2024 6:09 AM EDT Thrombocytopenia, unspecified (CMS/HCC V24) Encounter for screening for malignant neoplasm of prostate Encounter for screening for lipoid disorders LIPID PANEL WITH REFLEX TO DIRECT LDL Routine 09/18/2024 6:09 AM EDT Thrombocytopenia, unspecified (CMS/HCC V24) Encounter for screening for malignant neoplasm of prostate Encounter for screening for lipoid disorders COMPLETE BLOOD COUNT Routine 09/18/2024 6:09 AM EDT Thrombocytopenia, unspecified (CMS/HCC V24) Encounter for screening for malignant neoplasm of prostate Encounter for screening for lipoid disorders documented in this encounter Results * (ABNORMAL) Complete blood count (09/18/2024 6:09 AM EDT) WBC 4.3(L) 4.8 - 10.8 K/mcL LAB HEMETOLOGY METHOD 09/18/2024 8:44 AM [facility] RBC 4.00(L) 4.50 - 5.50 M/mcL LAB HEMETOLOGY METHOD 09/18/2024 8:44 AM [facility] LAB Hemoglobin 12.5(L) 13.5 - 17.5 g/dL LAB HEMETOLOGY METHOD 09/18/2024 8:44 AM [facility] LAB Hematocrit 38.2(L) 42.0 - 54.0 % LAB HEMETOLOGY METHOD 09/18/2024 8:44 AM [facility] LAB MCV 94.6 79.0 - 98.0 FL LAB HEMETOLOGY METHOD 09/18/2024 8:44 AM [facility] LAB MCH 30.9 27.0 - 32.0 pcg LAB HEMETOLOGY METHOD 09/18/2024 8:44 AM [facility] LAB MCHC 32.7 32.0 - 37.0 g/dL LAB HEMETOLOGY METHOD 09/18/2024 8:44 AM [facility] LAB RDW 13.8 11.0 - 15.0 % LAB HEMETOLOGY METHOD 09/18/2024 8:44 AM [facility] LAB Platelets 89(L) 130 - 400 K/mcL LAB HEMETOLOGY METHOD 09/18/2024 8:44 AM [facility] LAB MPV 10.6 7.0 - 11.0 FL LAB HEMETOLOGY METHOD 09/18/2024 8:44 AM [facility] LAB NRBC 0.0 <1.0 % LAB HEMETOLOGY METHOD 09/18/2024 8:44 AM [facility] LAB NRBC Absolute 0.00 <0.10 K/mcL LAB HEMETOLOGY METHOD 09/18/2024 8:44 AM EDT [facility] Blood Venous blood specimen / Unknown 09/18/2024 6:09 AM EDT 09/18/2024 7:51 AM EDT us Augustine Dan MD LAB BLOOD ORDERABLES Final Resul t [facility] [address] [place] [address], [place] [phone] * Lipid panel with reflex to direct LDL (09/18/2024 6:09 AM EDT) Cholesterol 144 0 - 200 mg/dL LAB CHEMISTRY METHOD 09/18/2024 7:56 AM EDT [facility] Triglycerides 72 0 - 150 mg/dL LAB CHEMISTRY METHOD 09/18/2024 7:56 AM [facility] HDL 47 >=40 mg/dL LAB CHEMISTRY METHOD 09/18/2024 7:56 AM EDT [facility] LDL Calculated 83 0 - 100 mg/dL LAB CHEMISTRY METHOD 09/18/2024 7:56 AM EDT [facility] Comment:Estimated LDL Calcul ated using equation: Total cholesterol - HDL cholesterol - (Triglycerides/5) VLDL Cholesterol Von 14.4 mg/dL LAB CHEMISTRY METHOD 09/18/2024 7:56 AM [facility] Non HDL Chol. (LDL+VLDL) 97 <145 mg/dL LAB CHEMISTRY METHOD 09/18/2024 7:56 AM T [facility] Chol/HDL Ratio 3.1 0.0 - 4.4 LAB CHEMISTRY METHOD 09/18/2024 7:56 AM [facility] Blood Venous blood specimen / Unknown 09/18/2024 6:09 AM EDT 09/18/2024 7:56 AM EDT us Augustine Dan MD LAB BLOOD ORDERABLES Final Resul t Performing Organization Address City/[facility] [employer] de Phone Number [facility] [address] [place] [address], [place] [phone] * Prostate specific antigen screen (09/18/2024 6:09 AM EDT) PSA 0.62 0.00 - 4.00 ng/mL LAB CHEMISTRY METHOD 09/18/2024 8:42 AM EDT [facility] Blood Venous blood specimen / Unknown 09/18/2024 6:09 AM EDT 09/18/2024 7:56 AM EDT Narrative [facility] - 09/18/2024 8:42 AM EDT The Siemens Advia Nevigoaur Chemiluminescent Immunoassay is used. Results obtained with different assay methods or kits cannot be used interchangeably. Results cannot be interpreted as absolute evidence of the presence or absence of malignant disease. Augustine Dan MD LAB BLOOD ORDERABLES Final Resul t Performing Organization Address [facility] [employer] de Phone Number [facility] [address] [place] [address], [place] [phone] documented in this encounter Visit Diagnoses Diagnosis Thrombocytopenia, unspecified (CMS/HCC V24) Thrombocytopenia, unspecified Encounter for screening for malignant neoplasm of prostate Encounter for screening for lipoid disorders documented in this encounter Care Teams Receptionist Doctor'S Office Relationship Specialty Start Date End Date Augustine Dan MD [address] [place] [address] Dr [address] KALANI Camacho PCP - General Internal Medicine 04/21/24 documented as of this encounter
--- OUTSIDE RECORDS SUMMARY | 2024-10-14 18:22 | XMS_ITS | Encounter Summary ---
Author Organization [facility] Address [address] [place] [address] Care Team Providers Care Special Distribution Clerk Name Role Phone Augustine Dan MD Primary Care Provider [phone] Encounter Details Date Type Department Care Team (Late st Contact Info) Description 01/25/2024 Lab Requisition [facility] - Main Lab [address] [place] [address] Augustine aDn MD [address] [place] [address] [address] KALANI Camacho Other assisted (current) [...] AMMONIA Routine 01/25/2024 6:10 AM EST Other manager long term care (current) drug therapy VALPROIC ACID LEVEL, TOTAL Routine 01/25/2024 6:10 AM EST Other manager long term care (current) drug therapy documented in this encounter Results * Valproic acid level, total (01/25/2024 6:10 AM EST) Valproic Acid, Total 82 50 - 100 mcg/mL LAB CHEMISTRY METHOD 01/25/2024 7:35 AM EST [place] [facility] Blood Venous blood specimen / Unknown 01/25/2024 6:10 AM EST 01/25/2024 6:49 AM EST us Augustine Dan MD LAB BLOOD ORDERABLES Final Resul t [facility] [address] [place] [address], [place] [phone] * Ammonia (01/25/2024 6:10 AM EST) Ammonia 22 11 - 35 mcmol/L LAB CHEMISTRY METHOD 01/25/2024 7:28 AM EST [facility] Blood Venous blood specimen / Unknown 01/25/2024 6:10 AM EST 01/25/2024 6:49 AM EST us Augustine Dan MD LAB BLOOD ORDERABLES Final Resul t [facility] [address] [place] [address], [place] [phone] documented in this encounter Visit Diagnoses Diagnosis Other manager long term care (current) drug therapy documented in this encounter Care Teams Special Distribution Clerk Relationship Specialty Start Date End Date Augustine Dan MD [address] [place] [address] [address] [place] PCP - General Internal Medicine 04/21/24 documented as of this encounter
--- OUTSIDE RECORDS SUMMARY | 2024-10-14 18:22 | XMS_ITS | Encounter Summary ---
Author Organization [employer] Address [address] [facility] [address] [place] [address] Care Team Providers Care Stogy Roller Name Role Phone Unavailable Primary Care Provider [...]
--- OUTSIDE RECORDS SUMMARY | 2024-10-14 18:22 | XMS_ITS | Encounter Summary ---
Author Organization [employer] Address [address] [place] [address] Care Team Providers Care Voip Network Technician Name Role Phone Augustine Dan MD Primary Care Provider Encounter Details Date Type Department Care Team (Late st Contact Info) Description 08/20/2024 Lab Requisition [facility] - Main Lab [address] [facility] [place] [address] Augustine Dan MD [address] [place] [address] [address] KALANI Camacho Encounter for therapeutic drug level monitoring; Other nursing home (current) drug therapy Social [...] Associated Diagnosis Comments SST - GOLD Routine 08/20/2024 6:35 AM EDT Encounter for therapeutic drug level monitoring Other ocean transportation intermediary (current) drug therapy B-TYPE NATRIURETIC PEPTIDE Routine 08/20/2024 6:35 AM EDT Encounter for therapeutic drug level monitoring Other ocean transportation intermediary (current) drug therapy AMMONIA Routine 08/20/2024 6:35 AM EDT Encounter for therapeutic drug level monitoring Other nursing home (current) drug therapy VALPROIC ACID LEVEL, TOTAL Routine 08/20/2024 6:35 AM EDT Encounter for therapeutic drug level monitoring Other nursing home (current) drug therapy BASIC METABOLIC PANEL Routine 08/20/2024 6:35 AM EDT Encounter for therapeutic drug level monitoring Other nursing home (current) drug therapy documented in this encounter Results * SST tube (08/20/2024 6:35 AM EDT) Extra Tube Hold for add-ons. 08/20/2024 9:02 AM EDT [facility] Comment:Auto resulted. Blood Venous blood specimen / Unknown 08/20/2024 6:35 AM EDT 08/20/2024 7:28 AM EDT us Augustine Dan MD LAB BLOOD ORDERABLES Final Resul t Performing Organization Address [facility] de Phone Number [facility] [address] [place] [address], [place] [phone] * (ABNORMAL) B-type natriuretic peptide (08/20/2024 6:35 AM EDT) BNP 112(H) <=100 pcg/mL LAB CHEMISTRY METHOD 08/20/2024 10:06 AM EDT [facility] Blood Venous blood specimen / Unknown 08/20/2024 6:35 AM EDT 08/20/2024 7:28 AM EDT us Augustine Dan MD LAB BLOOD ORDERABLES Final Resul t Performing Organization Address [facility] de Phone Number [facility] [address] [place] [address], [place] [phone] * Ammonia (08/20/2024 6:35 AM EDT) Ammonia 26 11 - 35 mcmol/L LAB CHEMISTRY METHOD 08/20/2024 7:53 AM EDT [facility] Blood Venous blood specimen / Unknown 08/20/2024 6:35 AM EDT 08/20/2024 7:28 AM EDT us Augustine Dan MD LAB BLOOD ORDERABLES Final Resul t Performing Organization Address City/[facility]/ZIP Co de Phone Number [facility] [address] [place] [address], [place] [phone] * Valproic acid level, total (08/20/2024 6:35 AM EDT) [facility] Valproic Acid, Total 92 50 - 100 mcg/mL LAB CHEMISTRY METHOD 08/20/2024 8:51 AM EDT [facility] Blood Venous blood specimen / Unknown 08/20/2024 6:35 AM EDT 08/20/2024 7:28 AM EDT us Augustine Dan MD LAB BLOOD ORDERABLES Final Resul t [facility] [address] [place] [address], [place] [phone] * (ABNORMAL) Basic metabolic panel (08/20/2024 6:35 AM EDT) [facility] Sodium 141 133 - 145 mmol/L LAB CHEMISTRY METHOD 08/20/2024 8:38 AM [facility] Potassium 4.6 3.5 - 5.5 mmol/L LAB CHEMISTRY METHOD 08/20/2024 8:38 AM [facility] Chloride 102 96 - 110 mmol/L LAB CHEMISTRY METHOD 08/20/2024 8:38 AM [facility] CO2 35(H) 21 - 32 mmol/L LAB CHEMISTRY METHOD 08/20/2024 8:38 AM [facility] Anion Gap 4 3 - 11 LAB CHEMISTRY METHOD 08/20/2024 8:38 AM [facility] Glucose 84 70 - 100 mg/dL LAB CHEMISTRY METHOD 08/20/2024 8:38 AM [facility] BUN 17 5 - 25 mg/dL LAB CHEMISTRY METHOD 08/20/2024 8:38 AM [facility] Creatinine 0.82 0.70 - 1.30 mg/dL LAB CHEMISTRY METHOD 08/20/2024 8:38 AM EDT [facility] eGFR 101 >=60 mL/min/1. 73m2 LAB CHEMISTRY METHOD 08/20/2024 8:38 AM EDT [facility] Comment:Calculation based on the Chronic Kidney Disease Epidemiology Collaboration (CKD-EPI) equation refit without adjustment for race. BUN/Creatinine Ratio 20.7 LAB CHEMISTRY METHOD 08/20/2024 8:38 AM EDT [facility] Calcium 9.0 8.5 - 10.5 mg/dL LAB CHEMISTRY METHOD 08/20/2024 8:38 AM EDT [facility] Blood Venous blood specimen / Unknown 08/20/2024 6:35 AM EDT 08/20/2024 7:28 AM EDT us Augustine Dan MD LAB BLOOD ORDERABLES Final Resul t [facility] [address] [place] [address], documented in this encounter Visit Diagnoses Diagnosis Encounter for therapeutic drug level monitoring Other ocean transportation intermediary (current) drug therapy documented in this encounter Care Teams Voip Network Technician Relationship Specialty Start Date End Date Augustine Dan MD [address] [place] [address] Dr [address] [place], [place] PCP - General Internal Medicine 04/21/24 documented as of this encounter
--- OUTSIDE RECORDS SUMMARY | 2024-10-14 18:22 | XMS_ITS | Encounter Summary ---
Author Organization [employer] Address [address] [place] [address] Care Team Providers Care Retort Forker Name Role Phone Augustine Dan MD Primary Care Provider [phone] Encounter Details Date Type Department Care Team (Late st Contact Info) Description 02/20/2024 Lab Requisition [facility] - Main Lab 299 [facility] [place] [address] Augustine Dan MD [address] [place] [address] [address] KALANI Camacho Major depressive disorder, [...] CBC auto differential (02/20/2024 6:28 AM EST) [facility] WBC 4.2(L) 4.8 - 10.8 K/mcL LAB HEMETOLOGY METHOD 02/20/2024 8:35 AM [facility] RBC 4.60 4.50 - 5.50 M/mcL LAB HEMETOLOGY METHOD 02/20/2024 8:35 AM [facility] Hemoglobin 13.9 13.5 - 17.5 g/dL LAB HEMETOLOGY METHOD 02/20/2024 8:35 AM [facility] Hematocrit 43.5 42.0 - 54.0 % LAB HEMETOLOGY METHOD 02/20/2024 8:35 AM [facility] MCV 94.8 79.0 - 98.0 FL LAB HEMETOLOGY METHOD 02/20/2024 8:35 AM [facility] MCH 30.3 27.0 - 32.0 pcg LAB HEMETOLOGY METHOD 02/20/2024 8:35 AM [facility] MCHC 32.0 32.0 - 37.0 g/dL LAB HEMETOLOGY METHOD 02/20/2024 8:35 AM [facility] RDW 13.7 11.0 - 15.0 % LAB HEMETOLOGY METHOD 02/20/2024 8:35 AM [facility] Platelets 76(L) 130 - 400 K/mcL LAB HEMETOLOGY METHOD 02/20/2024 8:35 AM [facility] LAB Comment:reviewed by slide MPV 12.0(H) 7.0 - 11.0 FL LAB HEMETOLOGY METHOD 02/20/2024 8:35 AM [facility] NRBC 0.0 <1.0 % LAB HEMETOLOGY METHOD 02/20/2024 8:35 AM [facility] NRBC Absolute 0.00 <0.10 K/mcL LAB HEMETOLOGY METHOD 02/20/2024 8:35 AM [facility] Neutrophils Relative 42.7 % LAB HEMETOLOGY METHOD 02/20/2024 8:35 AM [facility] Lymphocytes Relative 38.4 % LAB HEMETOLOGY METHOD 02/20/2024 8:35 AM [facility] Monocytes Relative 12.1 % LAB HEMETOLOGY METHOD 02/20/2024 8:35 AM [facility] Eosinophils Relative 5.9 % LAB HEMETOLOGY METHOD 02/20/2024 8:35 AM [facility] Basophils Relative 0.7 % LAB HEMETOLOGY METHOD 02/20/2024 8:35 AM [facility] Immature Granulocytes Relative 0.2 % LAB HEMETOLOGY METHOD 02/20/2024 8:35 AM [facility] Neutrophils Absolute 1.80 1.50 - 7.00 K/[facility] LAB HEMETOLOGY METHOD 02/20/2024 8:35 AM [facility] Lymphocytes Absolute 1.62 1.00 - 5.00 K/[facility] LAB HEMETOLOGY METHOD 02/20/2024 8:35 AM [facility] Monocytes Absolute 0.51 0.20 - 1.00 K/[facility] LAB HEMETOLOGY METHOD 02/20/2024 8:35 AM [facility] Eosinophils Absolute 0.25 0.00 - 0.50 K/[facility] LAB HEMETOLOGY METHOD 02/20/2024 8:35 AM [facility] Basophils Absolute 0.03 0.00 - 0.20 K/[facility] LAB HEMETOLOGY METHOD 02/20/2024 8:35 AM [facility] Immature Granulocytes Absolute 0.01 0.00 - 0.03 K/[facility] LAB HEMETOLOGY METHOD 02/20/2024 8:35 AM [facility] Blood Venous blood specimen / Unknown 02/20/2024 6:28 AM EST 02/20/2024 7:34 AM EST us Augustine Dan MD LAB BLOOD ORDERABLES Final Resul t Performing Organization Address [facility] de Phone Number [facility] [address] [place] [address], [place] [phone] * Thyroid stimulating hormone (02/20/2024 6:28 AM EST) [facility] TSH 3.34 0.40 - 4.00 mcIU/mL LAB CHEMISTRY METHOD 02/20/2024 8:25 AM EST [facility] Blood Venous blood specimen / Unknown 02/20/2024 6:28 AM EST 02/20/2024 7:34 AM EST us Augustine Dan MD LAB BLOOD ORDERABLES Final Resul t Performing Organization Address [facility] de Phone Number [facility] [address] [place] [address], [place] [phone] * Vitamin D 25 hydroxy (02/20/2024 6:28 AM EST) [facility] Vit D, 25-Hydroxy 51.1 30.0 - 80.0 ng/mL LAB CHEMISTRY METHOD 02/20/2024 8:25 AM EST [facility] Blood Venous blood specimen / Unknown 02/20/2024 6:28 AM EST 02/20/2024 7:34 AM EST us Augustine Dan MD LAB BLOOD ORDERABLES Final Resul t Performing Organization Address [facility] Co de Phone Number [facility] [address] [place] [address], [place] [phone] * (ABNORMAL) Comprehensive metabolic panel (02/20/2024 6:28 AM EST) [facility] Sodium 142 133 - 145 mmol/L LAB CHEMISTRY METHOD 02/20/2024 8:23 AM [facility] Potassium 3.5 3.5 - 5.5 mmol/L LAB CHEMISTRY METHOD 02/20/2024 8:23 AM [facility] Chloride 105 96 - 110 mmol/L LAB CHEMISTRY METHOD 02/20/2024 8:23 AM [facility] CO2 35(H) 21 - 32 mmol/L LAB CHEMISTRY METHOD 02/20/2024 8:23 AM [facility] Anion Gap 2(L) 3 - 11 LAB CHEMISTRY METHOD 02/20/2024 8:23 AM [facility] Glucose 81 70 - 100 mg/dL LAB CHEMISTRY METHOD 02/20/2024 8:23 AM [facility] BUN 22 5 - 25 mg/dL LAB CHEMISTRY METHOD 02/20/2024 8:23 AM [facility] Creatinine 0.87 0.70 - 1.30 mg/dL LAB CHEMISTRY METHOD 02/20/2024 8:23 AM [facility] eGFR 99 >=60 mL/min/1. 73m2 LAB CHEMISTRY METHOD 02/20/2024 8:23 AM [facility] Comment:Calculation based on the Chronic Kidney Disease Epidemiology Collaboration (CKD-EPI) equation refit without adjustment for race. BUN/Creatinine Ratio 25.3 LAB CHEMISTRY METHOD 02/20/2024 8:23 AM [facility] Calcium 8.6 8.5 - 10.5 mg/dL LAB CHEMISTRY METHOD 02/20/2024 8:23 AM [facility] AST (SGOT) 10 10 - 42 unit/L LAB CHEMISTRY METHOD 02/20/2024 8:23 AM [facility] ALT (SGPT) 12 10 - 60 unit/L LAB CHEMISTRY METHOD 02/20/2024 8:23 AM [facility] Alkaline Phosphatase 46 42 - 121 unit/L LAB CHEMISTRY METHOD 02/20/2024 8:23 AM [facility] Total Protein 6.0 6.0 - 8.0 g/dL LAB CHEMISTRY METHOD 02/20/2024 8:23 AM EST [facility] Albumin 3.3 3.2 - 5.0 g/dL LAB CHEMISTRY METHOD 02/20/2024 8:23 AM EST [facility] Total Bilirubin 0.6 0.0 - 1.4 mg/dL LAB CHEMISTRY METHOD 02/20/2024 8:23 AM EST [facility] Blood Venous blood specimen / Unknown 02/20/2024 6:28 AM EST 02/20/2024 7:34 AM EST us Augustine Dan MD LAB BLOOD ORDERABLES Final Resul t [facility] [address] [place] [address], documented in this encounter Visit Diagnoses Diagnosis Major depressive disorder, recurrent, unspecified (CMS/HCC V24) documented in this encounter Care Teams Retort Forker Relationship Specialty Start Date End Date Augustine Dan MD [address] [place] PCP - General Internal Medicine 04/21/24 documented as of this encounter
--- OUTSIDE RECORDS SUMMARY | 2024-10-14 18:22 | XMS_ITS | Clinical Summary ---
Author Organization [employer] Address [address] [facility] [address] [place] [address] Care Team Providers Care Therapeutic Recreation Assistant Name Role Phone Unavailable Primary Care Provider [...] 11/27/2022, 0 10/19/2021, 06/09/2020, Additional history exists Tobacco Screening 11/28/2023 11/27/2022 Dental X-Ray: [facility]ings 11/29/2023 11/28/19, 10/19/2021, 06/09/2020, Additional history exists COVID-19 Vaccine (2024- season) 2024 08/31/2021, 02/02/2021, 07/30/2020, Additional history exists Influenza Vaccine (#1) 2024 [...]
--- OUTSIDE RECORDS SUMMARY | 2024-10-14 18:22 | XMS_ITS | Encounter Summary ---
Author Organization [facility] Address [address] [place] [address] Care Team Providers Care Shredded Filler Machine Wrapper Layer Name Role Phone Augustine Dan MD Primary Care Provider [phone] Encounter Details Date Type Department Care Team (Late st Contact Info) Description 09/22/2024 Lab Requisition [facility] - Main Lab [address] [place] [address] Augustine Dan MD [address] [place] [address] [address] [place] Other residential (current) drug therapy Social History Tobacco Use [...] Date/Time Associated Diagnosis Comments PLATELET COUNT Routine 09/22/2024 5:40 AM EDT Other residential (current) drug therapy documented in this encounter Results * (ABNORMAL) Platelet count (09/22/2024 5:40 AM EDT) Platelets 118(L) 130 - 400 K/mcL LAB HEMETOLOGY METHOD 09/22/2024 7:28 AM EDT [facility] MPV 10.4 7.0 - 11.0 FL LAB HEMETOLOGY METHOD 09/22/2024 7:28 AM EDT [facility] Blood Venous blood specimen / Unknown 09/22/2024 5:40 AM EDT 09/22/2024 6:39 AM EDT us Augustine Dan MD LAB BLOOD ORDERABLES Final Resul t [facility] [address] [place] [address], documented in this encounter Visit Diagnoses Diagnosis Other residential (current) drug therapy documented in this encounter Care Teams Shredded Filler Machine Wrapper Layer Relationship Specialty Start Date End Date Augustine Dan MD [address] [place] [address] Dr [address] [place] PCP - General Internal Medicine 04/21/24 documented as of this encounter
--- OUTSIDE RECORDS SUMMARY | 2024-10-14 18:22 | XMS_ITS | Encounter Summary ---
Author Organization [employer] Address [address] [place] [address] Care Team Providers Care Women'S Studies Professor Name Role Phone Augustine Dan MD Primary Care Provider [phone] Encounter Details Date Type Department Care Team (Late st Contact Info) Description 02/04/2024 Lab Requisition [facility] - Main Lab 299 [facility] [address] Social History Tobacco Use Types [...] on filedocumented in this encounter Care Teams Women'S Studies Professor Relationship Specialty Start Date End Date Augustine Dan MD [address] [place] [address] Dr [address] KALANI Camacho PCP - General Internal Medicine 04/21/24 documented as of this encounter
--- OUTSIDE RECORDS SUMMARY | 2024-10-14 18:22 | XMS_ITS | Encounter Summary ---
Author Organization [employer] Address [address] [place] [address] Care Team Providers Care Horse Stud Manager Name Role Phone Augustine Dan MD Primary Care Provider [phone] Encounter Details Date Type Department Care Team (Late st Contact Info) Description 01/11/2024 Lab Requisition [facility] - Main Lab 299 [facility] [place] [address] Augustine Dan MD [address] [place] [address] [address] KALANI Camacho Other half-way (current) drug therapy Social History Tobacco Use [...] COUNT Routine 01/11/2024 5:10 AM EST Other superintendent marine oil terminal (current) drug therapy COMPREHENSIVE METABOLIC PANEL Routine 01/11/2024 5:10 AM EST Other half-way (current) drug therapy documented in this encounter Results * (ABNORMAL) Comprehensive metabolic panel (01/11/2024 5:10 AM EST) Sodium 144 133 - 145 mmol/L LAB CHEMISTRY METHOD 01/11/2024 6:57 AM EST [facility] Potassium 3.8 3.5 - 5.5 mmol/L LAB CHEMISTRY METHOD 01/11/2024 6:57 AM EST [facility] Chloride 109 96 - 110 mmol/L LAB CHEMISTRY METHOD 01/11/2024 6:57 AM EST [facility] CO2 30 21 - [...] refit without adjustment for race. BUN/Creatinine Ratio 24.4 LAB [...] Resul t [facility] [address] [place] [address], [place] [phone] * (ABNORMAL) Complete blood count (01/11/2024 5:10 [...] LAB HEMETOLOGY METHOD 01/11/2024 6:52 AM EST [facility] Comment:reviewed by slide MPV 12.0(H) 7.0 - 11.0 FL LAB HEMETOLOGY METHOD 01/11/2024 6:52 AM EST [facility] NRBC 0.0 <1.0 % LAB HEMETOLOGY METHOD 01/11/2024 6:52 AM EST [facility] NRBC Absolute 0.00 <0.10 K/mcL LAB HEMETOLOGY METHOD 01/11/2024 6:52 AM EST [facility] Blood Venous blood specimen / Unknown 01/11/2024 5:10 AM EST 01/11/2024 6:11 AM EST us Augustine Dan MD LAB BLOOD ORDERABLES Final Resul t [facility] [address] [place] [address], documented in this encounter Visit Diagnoses Diagnosis Other half-way (current) drug therapy documented in this encounter Care Teams Horse Stud Manager Relationship Specialty Start Date End Date Augustine Dan MD [address] [place] [address] Dr [address] KALANI Camacho PCP - General Internal Medicine 04/21/24 documented as of this encounter
--- OUTSIDE RECORDS SUMMARY | 2024-10-14 18:22 | XMS_ITS | Encounter Summary ---
Author Organization [email or web address] Address [address] [place] [address] Care Team Providers Care Rn Trauma Name Role Phone Augustine Dan MD Primary Care Provider [phone] Encounter Details Date Type Department Care Team (Late st Contact Info) Description 01/21/2024 Lab Requisition [facility] - Main Lab [address] [place] [address] Augustine Dan MD [address] [place] [address] [address] KALANI Camacho Major depressive [...] AM EST) WBC 4.9 4.8 - 10.8 K/[facility] LAB HEMETOLOGY METHOD 01/21/2024 7:29 AM EST [facility] RBC 5.10 4.50 - 5.50 M/mcL LAB HEMETOLOGY METHOD 01/21/2024 7:29 AM [facility] Hemoglobin 15.5 13.5 - 17.5 g/dL LAB HEMETOLOGY METHOD 01/21/2024 7:29 AM [facility] LAB Hematocrit 48.0 42.0 - 54.0 % LAB HEMETOLOGY METHOD 01/21/2024 7:29 AM [facility] LAB MCV 93.9 79.0 - 98.0 FL LAB HEMETOLOGY METHOD 01/21/2024 7:29 AM [facility] LAB MCH 30.3 27.0 - 32.0 pcg LAB HEMETOLOGY METHOD 01/21/2024 7:29 AM [facility] LAB MCHC 32.3 32.0 - 37.0 g/dL LAB HEMETOLOGY METHOD 01/21/2024 7:29 AM [facility] LAB RDW 13.5 11.0 - 15.0 % LAB HEMETOLOGY METHOD 01/21/2024 7:29 AM [facility] LAB Platelets 118(L) 130 - 400 K/mcL LAB HEMETOLOGY METHOD 01/21/2024 7:29 AM [facility] MPV 11.3(H) 7.0 - 11.0 FL LAB HEMETOLOGY METHOD 01/21/2024 7:29 AM [facility] NRBC 0.0 <1.0 % LAB HEMETOLOGY METHOD 01/21/2024 7:29 AM [facility] NRBC Absolute 0.00 <0.10 K/mcL LAB HEMETOLOGY METHOD 01/21/2024 7:29 AM [facility] Neutrophils Relative 37.6 % LAB HEMETOLOGY METHOD 01/21/2024 7:29 AM [facility] Lymphocytes Relative 47.7 % LAB HEMETOLOGY METHOD 01/21/2024 7:29 AM [facility] Monocytes Relative 10.2 % LAB HEMETOLOGY METHOD 01/21/2024 7:29 AM [facility] Eosinophils Relative 3.7 % LAB HEMETOLOGY METHOD 01/21/2024 7:29 AM [facility] Basophils Relative 0.6 % LAB HEMETOLOGY METHOD 01/21/2024 7:29 AM [facility] Immature Granulocytes Relative 0.2 % LAB HEMETOLOGY METHOD 01/21/2024 7:29 AM [facility] Neutrophils Absolute 1.83 1.50 - 7.00 K/mcL LAB HEMETOLOGY METHOD 01/21/2024 7:29 AM [facility] Lymphocytes Absolute 2.33 1.00 - 5.00 K/mcL LAB HEMETOLOGY METHOD 01/21/2024 7:29 AM [facility] Monocytes Absolute 0.50 0.20 - 1.00 K/mcL LAB HEMETOLOGY METHOD 01/21/2024 7:29 AM [facility] Eosinophils Absolute 0.18 0.00 - 0.50 K/mcL LAB HEMETOLOGY METHOD 01/21/2024 7:29 AM [facility] Basophils Absolute 0.03 0.00 - 0.20 K/mcL LAB HEMETOLOGY METHOD 01/21/2024 7:29 AM EST [facility] Immature Granulocytes Absolute 0.01 0.00 - 0.03 K/mcL LAB HEMETOLOGY METHOD 01/21/2024 7:29 AM [facility] LAB Blood Venous blood specimen / Unknown 01/21/2024 6:25 AM EST 01/21/2024 7:16 AM EST us Augustine Dan MD LAB BLOOD ORDERABLES Final Resul t [facility] [address] [place] [address], * Valproic acid level, total (01/21/2024 6:25 AM EST) Valproic Acid, Total 88 50 - 100 mcg/mL LAB CHEMISTRY METHOD 01/21/2024 7:34 AM EST [facility] Blood Venous blood specimen / Unknown 01/21/2024 6:25 AM EST 01/21/2024 7:16 AM EST us Augustine Dan MD LAB BLOOD ORDERABLES Final Resul t [facility] [address] [place] [address], [place] [phone] documented in this encounter Visit Diagnoses Diagnosis Major depressive disorder, recurrent, unspecified (CMS/HCC V24) documented in this encounter Care Teams Rn Trauma Relationship Specialty Start Date End Date Augustine Dan MD [address] [place] [address] Dr [address] [place], [place] PCP - General Internal Medicine 04/21/24 documented as of this encounter
--- OUTSIDE RECORDS SUMMARY | 2024-10-14 18:22 | XMS_ITS | Encounter Summary ---
Author Organization [employer] Address [address] [place] [address] Care Team Providers Care Aircraft Designer Name Role Phone Augustine Dan MD Primary Care Provider [phone] Encounter Details Date Type Department Care Team (Late st Contact Info) Description 01/20/2024 Lab Requisition [facility] - Main Lab [address] [place] [address] Augustine Dan MD [address] [place] [address] [address] KALANI Camacho Urinary tract infection, [...] reflex microscopic (01/20/2024 6:00 PM EST) Specific [place] Urine 1.029 1.003 - 1.030 LAB URINALYSIS - AUTOMATED METHOD 01/20/2024 8:20 PM EST [facility] pH, Urine 5.5 5.0 - 8.0 pH LAB URINALYSIS - AUTOMATED METHOD 01/20/2024 8:20 PM [facility] Leukocytes, Urine Negative Negative LAB URINALYSIS - AUTOMATED METHOD 01/20/2024 8:20 PM [facility] Nitrite, Urine Negative Negative LAB URINALYSIS - AUTOMATED METHOD 01/20/2024 8:20 PM [facility] Protein, Urine Negative <=Trace mg/dL LAB URINALYSIS - AUTOMATED METHOD 01/20/2024 8:20 PM [facility] Glucose, Urine Negative Negative mg/dL LAB URINALYSIS - AUTOMATED METHOD 01/20/2024 8:20 PM [facility] Ketones, Urine 15(A) Negative mg/dL LAB URINALYSIS - AUTOMATED METHOD 01/20/2024 8:20 PM [facility] Urobilinogen, Urine 0.2 0.2 - 1.0 mg/dL LAB URINALYSIS - AUTOMATED METHOD 01/20/2024 8:20 PM [facility] Bilirubin, Urine Negative Negative LAB URINALYSIS - AUTOMATED METHOD 01/20/2024 8:20 PM [facility] Blood, Urine Negative Negative LAB URINALYSIS - AUTOMATED METHOD 01/20/2024 8:20 PM [facility] Urine Urine specimen obtained by clean catch procedure / Unknown 01/20/2024 6:00 PM EST 01/20/2024 8:17 PM EST us Augustine Dan MD LAB URINE ORDERABLES Final Resul t [facility] [address] [place] [address], * Culture urine (01/20/2024 6:00 PM EST) Culture, Urine No growth 01/21/2024 1:22 PM EST [facility] Urine Urine specimen obtained by clean catch procedure / Unknown 01/20/2024 6:00 PM EST 01/20/2024 8:17 PM EST us Augustine Dan MD LAB MICROBIOLOGY - GENERAL ORDER KETTY Final Result [facility] [address] [place] [address], documented in this encounter Visit Diagnoses Diagnosis Urinary tract infection, site not specified documented in this encounter Care Teams Aircraft Designer Relationship Specialty Start Date End Date Augustine Dan MD [address] [place] [address] Dr [address] [place], [place] PCP - General Internal Medicine 04/21/24 documented as of this encounter
--- OUTSIDE RECORDS SUMMARY | 2024-10-14 18:22 | XMS_ITS | Encounter Summary ---
Author Organization [facility] Address [address] [place] [address] Care Team Providers Care Marine Oiler Name Role Phone Augustine Dan MD Primary Care Provider [phone] Encounter Details Date Type Department Care Team (Late st Contact Info) Description 01/14/2024 Lab Requisition [facility] - Main Lab [address] [place] [address] Augustine Dan MD [address] [place] [address] [address] [place] Malignant neuroleptic syndrome Social History Tobacco Use [...] LAB HEMETOLOGY METHOD 01/14/2024 7:46 PM EST [facility] MPV 11.4(H) 7.0 - 11.0 FL LAB HEMETOLOGY METHOD 01/14/2024 7:46 PM EST [facility] Blood Venous blood specimen / Unknown 01/14/2024 01/14/2024 6:53 PM EST us Augustine Dan MD LAB BLOOD ORDERABLES Final Resul t [facility] [address] [place] [address], documented in this encounter Visit Diagnoses Diagnosis Malignant neuroleptic syndrome Neuroleptic malignant syndrome documented in this encounter Care Teams Marine Oiler Relationship Specialty Start Date End Date Augustine Dan MD [address] [place] [address] [address] [place] PCP - General Internal Medicine 04/21/24 documented as of this encounter
--- OUTSIDE RECORDS SUMMARY | 2024-10-14 18:22 | XMS_ITS | Encounter Summary ---
Author Organization [employer] Address [address] [place] [address] Care Team Providers Care Manager Technical Services Name Role Phone Augustine Dan MD Primary Care Provider [phone] Encounter Details Date Type Department Care Team (Late st Contact Info) Description 02/08/2024 Lab Requisition [facility] - Main Lab [address] [place] [address] Augustine Dan MD [address] [place] [address] [address] KALANI Camacho Other nursing home [...] TOTAL Routine 02/08/2024 5:05 AM EST Other nursing home (current) drug therapy documented in this encounter Results * Valproic acid level, total (02/08/2024 5:05 AM EST) Valproic Acid, Total 80 50 - 100 mcg/mL LAB CHEMISTRY METHOD 02/08/2024 6:22 AM EST [facility] Blood Venous blood specimen / Unknown 02/08/2024 5:05 AM EST 02/08/2024 5:55 AM EST us Augustine Dan MD LAB BLOOD ORDERABLES Final Resul t [facility] [address] [place] [address], documented in this encounter Visit Diagnoses Diagnosis Other equipment operator intermodal yard (current) drug therapy documented in this encounter Care Teams Manager Technical Services Relationship Specialty Start Date End Date Augustine Dan MD [address] [place] [address] Dr [address] KALANI Camacho PCP - General Internal Medicine 04/21/24 documented as of this encounter
--- OUTSIDE RECORDS SUMMARY | 2024-10-14 18:22 | XMS_ITS | Encounter Summary ---
Author Organization [employer] Address [address] [place] [address] Care Team Providers Care Manager Of Hospital Name Role Phone Augustine Dan MD Primary Care Provider [phone] Encounter Details Date Type Department Care Team (Late st Contact Info) Description 05/21/2024 Lab Requisition [facility] - Main Lab [address] [place] [address] Augustine Dan MD [address] [place] [address] [address] KALANI Camacho Major depressive disorder, [...] AM EDT) WBC 5.4 4.8 - 10.8 K/[facility] LAB HEMETOLOGY METHOD 05/21/2024 7:48 AM EDT [facility] LAB RBC 4.60 4.50 - 5.50 M/[facility] LAB HEMETOLOGY METHOD 05/21/2024 7:48 AM EDT [facility] LAB Hemoglobin 14.3 13.5 - 17.5 g/dL LAB HEMETOLOGY METHOD 05/21/2024 7:48 AM [facility] LAB Hematocrit 44.7 42.0 - 54.0 % LAB HEMETOLOGY METHOD 05/21/2024 7:48 AM [facility] LAB MCV 97.8 79.0 - 98.0 FL LAB HEMETOLOGY METHOD 05/21/2024 7:48 AM [facility] LAB MCH 31.3 27.0 - 32.0 pcg LAB HEMETOLOGY METHOD 05/21/2024 7:48 AM [facility] LAB MCHC 32.0 32.0 - 37.0 g/dL LAB HEMETOLOGY METHOD 05/21/2024 7:48 AM [facility] LAB RDW 14.2 11.0 - 15.0 % LAB HEMETOLOGY METHOD 05/21/2024 7:48 AM [facility] LAB Platelets 114(L) 130 - 400 K/mcL LAB HEMETOLOGY METHOD 05/21/2024 7:48 AM [facility] LAB MPV 11.9(H) 7.0 - 11.0 FL LAB HEMETOLOGY METHOD 05/21/2024 7:48 AM [facility] LAB NRBC 0.0 <1.0 % LAB HEMETOLOGY METHOD 05/21/2024 7:48 AM [facility] LAB NRBC Absolute 0.00 <0.10 K/mcL LAB HEMETOLOGY METHOD 05/21/2024 7:48 AM [facility] LAB Neutrophils Relative 36.1 % LAB HEMETOLOGY METHOD 05/21/2024 7:48 AM [facility] LAB Lymphocytes Relative 43.4 % LAB HEMETOLOGY METHOD 05/21/2024 7:48 AM [facility] LAB Monocytes Relative 10.7 % LAB HEMETOLOGY METHOD 05/21/2024 7:48 AM EDT [facility] LAB Eosinophils Relative 8.9 % LAB HEMETOLOGY METHOD 05/21/2024 7:48 AM EDT [facility] LAB Basophils Relative 0.7 % LAB HEMETOLOGY METHOD 05/21/2024 7:48 AM EDT [facility] LAB Immature Granulocytes Relative 0.2 % LAB HEMETOLOGY METHOD 05/21/2024 7:48 AM EDT [facility] LAB Neutrophils Absolute 1.95 1.50 - 7.00 K/mcL LAB HEMETOLOGY METHOD 05/21/2024 7:48 AM EDT [facility] LAB Lymphocytes Absolute 2.35 1.00 - 5.00 K/mcL LAB HEMETOLOGY METHOD 05/21/2024 7:48 AM EDT [facility] LAB Monocytes Absolute 0.58 0.20 - 1.00 K/mcL LAB HEMETOLOGY METHOD 05/21/2024 7:48 AM EDT [facility] LAB Eosinophils Absolute 0.48 0.00 - 0.50 K/mcL LAB HEMETOLOGY METHOD 05/21/2024 7:48 AM EDT [facility] LAB Basophils Absolute 0.04 0.00 - 0.20 K/mcL LAB HEMETOLOGY METHOD 05/21/2024 7:48 AM EDT [facility] LAB Immature Granulocytes Absolute 0.01 0.00 - 0.03 K/mcL LAB HEMETOLOGY METHOD 05/21/2024 7:48 AM EDT [facility] LAB Blood Venous blood specimen / Unknown 05/21/2024 6:15 AM EDT 05/21/2024 7:29 AM EDT us Augustine Dan MD LAB BLOOD ORDERABLES Final Resul t [facility] [address] [place] [address], documented in this encounter Visit Diagnoses Diagnosis Major depressive disorder, recurrent, unspecified (CMS/[facility] V24) documented in this encounter Care Teams Manager Of Hospital Relationship Specialty Start Date End Date Augustine Dan MD [address] [place] [address] Dr [address] AKLANI Camacho PCP - General Internal Medicine 04/21/24 documented as of this encounter
--- OUTSIDE RECORDS SUMMARY | 2024-10-14 18:22 | XMS_ITS | Encounter Summary ---
Author Organization [employer] Address [address] [place] [address] Care Team Providers Care Collections Clerk Name Role Phone Augustine Dan MD Primary Care Provider [phone] Encounter Details Date Type Department Care Team (Late st Contact Info) Description 07/20/2024 Lab Requisition [facility] - Main Lab [address] [place] [address] Augustine Dan MD [address] [place] [address] [address] KALANI Camacho Other group home (current) drug therapy Social History Tobacco [...] Associated Diagnosis Comments SST - GOLD Routine 07/20/2024 7:36 AM EDT Other director recreation (current) drug therapy COMPLETE BLOOD COUNT Routine 07/20/2024 7:36 AM EDT Other director recreation (current) drug therapy documented in this encounter Results * SST tube (07/20/2024 7:36 AM EDT) Extra Tube Hold for add-ons. 07/21/2024 11:01 AM EDT [facility] [place] [place] [facility] Comment:Auto resulted. Blood Venous blood specimen / Unknown 07/20/2024 7:36 AM EDT 07/20/2024 10:15 AM EDT us Augustine Dan MD LAB BLOOD ORDERABLES Final Resul t [facility] [address] [place] [address], * (ABNORMAL) Complete blood count (07/20/2024 7:36 AM EDT) [facility] Signature WBC 4.1(L) 4.8 - 10.8 K/mcL LAB HEMETOLOGY METHOD 07/20/2024 10:35 AM EDT [facility] RBC 4.30(L) 4.50 - 5.50 M/mcL LAB HEMETOLOGY METHOD 07/20/2024 10:35 AM EDT [facility] LAB Hemoglobin 12.8(L) 13.5 - 17.5 g/dL LAB HEMETOLOGY METHOD 07/20/2024 10:35 AM EDT [facility] LAB Hematocrit 41.7(L) 42.0 - 54.0 % LAB HEMETOLOGY METHOD 07/20/2024 10:35 AM EDT [facility] LAB MCV 96.8 79.0 - 98.0 FL LAB HEMETOLOGY METHOD 07/20/2024 10:35 AM EDT [facility] LAB MCH 29.7 27.0 - 32.0 pcg LAB HEMETOLOGY METHOD 07/[facility] MCHC 30.7(L) 32.0 - 37.0 g/dL LAB HEMETOLOGY METHOD 07/20/2024 10:35 AM EDT [facility] LAB RDW 13.3 11.0 - 15.0 % LAB HEMETOLOGY METHOD 07/20/2024 10:35 AM EDT [facility] LAB Platelets 109(L) 130 - 400 K/mcL LAB HEMETOLOGY METHOD 07/20/2024 10:35 AM EDT [facility] LAB MPV 11.8(H) 7.0 - 11.0 FL LAB HEMETOLOGY METHOD 07/20/2024 10:35 AM EDT [facility] NRBC 0.0 <1.0 % LAB HEMETOLOGY METHOD 07/20/2024 10:35 AM EDT [facility] LAB NRBC Absolute 0.00 <0.10 K/mcL LAB HEMETOLOGY METHOD 07/20/2024 10:35 AM EDT [facility] Blood Venous blood specimen / Unknown 07/20/2024 7:36 AM EDT 07/20/2024 10:15 AM EDT us Augustine Dan MD LAB BLOOD ORDERABLES Final Resul t [facility] [address] [place] [address], documented in this encounter Visit Diagnoses Diagnosis Other director recreation (current) drug therapy documented in this encounter Care Teams Collections Clerk Relationship Specialty Start Date End Date Augustine Dan MD [address] [place], [place] PCP - General Internal Medicine 04/21/24 documented as of this encounter
--- OUTSIDE RECORDS SUMMARY | 2024-10-14 18:22 | XMS_ITS | Encounter Summary ---
Author Organization [employer] Address [address] [place] [address] Care Team Providers Care Mattress Spring Encaser Name Role Phone Augustine Dan MD Primary Care Provider [phone] Encounter Details Date Type Department Care Team (Late st Contact Info) Description 02/05/2024 Lab Requisition [facility] - Main Lab [address] [facility] [place] [address] Augustine Dan MD [address] [place] [address] [address] KALANI Camacho Other prison (current) drug therapy Social History Tobacco Use [...] GOLD Routine 02/05/2024 6:20 AM EST Other rodent exterminator (current) drug therapy PREGABALIN Routine 02/05/2024 6:20 AM EST Other rodent exterminator (current) drug therapy LEVETIRACETAM LEVEL Routine 02/05/2024 6 :20 AM EST Other rodent exterminator (current) drug therapy COMPLETE BLOOD COUNT Routine 02/05/2024 6:20 AM EST Other prison (current) drug therapy AMMONIA Routine 02/05/2024 6:20 AM EST Other rodent exterminator (current) drug therapy VALPROIC ACID LEVEL, TOTAL Routine 02/05/2024 6:20 AM EST Other rodent exterminator (current) drug therapy COMPREHENSIVE METABOLIC PANEL Routine 02/05/2024 6:20 AM EST Other prison (current) drug therapy documented in this encounter Results * Valproic acid level, total (02/05/2024 6:20 AM EST) Valproic Acid, Total 92 50 - 100 mcg/mL LAB CHEMISTRY METHOD 02/05/2024 7:30 PM EST [facility] Blood Venous blood specimen / Unknown 02/05/2024 6:20 AM EST 02/05/2024 7:31 AM EST us Augustine Dan MD LAB BLOOD ORDERABLES Final Resul t Performing Organization Address City/[facility]/ZIP Co de Phone Number [facility] [address] [place] [address], [place] [phone] * SST tube (02/05/2024 6:20 AM EST) Extra Tube Hold for add-ons. 02/05/2024 9:01 AM EST [facility] Comment:Auto resulted. Blood Venous blood specimen / Unknown 02/05/2024 6:20 AM EST 02/05/2024 7:31 AM EST us Augustine Dan MD LAB BLOOD ORDERABLES Final Resul t Performing Organization Address City/[facility]/ZIP Co de Phone Number [facility] [address] [place] [address], [place] [phone] * Pregabalin (02/05/2024 6:20 AM EST) Pregabalin 2.5 ug/mL 02/08/2024 4:05 PM EST [facility] Comment: Therapeutic and toxic ranges have not been established. Expected steady state pregabalin concentrations in patients taking recommended daily dosages: up to 10 ug/mL. This test was developed and its performance characteristics determined by [facility]. It has not been cleared or approved by the Food and Drug Administration. Blood Venous blood specimen / Unknown 02/05/2024 6:20 AM EST 02/05/2024 7:25 AM EST Narrative [facility] - 02/08/2024 4:05 PM EST Performed at: 01 - [facility] [address] [place] [id number] Taxicab Driver: Monique Gerber [facility] [place], Phone: [phone] us Augustine Dan MD LAB BLOOD ORDERABLES Final Resul t Performing Organization Address City/[facility]/ZIP Co de Phone Number [facility] * Levetiracetam level (02/05/2024 6:20 AM EST) Levetiracetam <1.0 3.0 - 60.0 ug/mL 02/11/2024 7:53 AM EST [facility] Comment: Steady state trough serum or plasma levels following doses of 1000 to 3000 mg/Day: 3 to 37 ug/mL. The same dosage regimen will typically result in peak levels of 10 to 60 ug/mL, at approximately 1.5 hours post dose. If applicable, any drug confirmation testing reported here was developed and the performance characteristics determined by [facility]. This confirmation testing has not been cleared or approved by the FDA. The laboratory is regulated under CLIA as qualified to perform high-complexity testing. This test is used for patient testing purposes. It should not be regarded as investigational or for research. Test performed at [facility], [address] , [place] [address] Alicia Mclain MD, PhD - [employer] Blood Venous blood specimen / Unknown 02/05/2024 6:20 AM EST 02/05/2024 7:25 AM EST us Augustine Dan MD LAB BLOOD ORDERABLES Final Resul t Performing Organization Address City/[facility]/ZIP Co de Phone Number [facility] [address] [place] [address] * (ABNORMAL) Ammonia (02/05/2024 6:20 AM EST) Ammonia 39(H) 11 - 35 mcmol/L LAB CHEMISTRY METHOD 02/05/2024 7:55 AM [facility] Blood Venous blood specimen / Unknown 02/05/2024 6:20 AM EST 02/05/2024 7:25 AM EST us Augustine Dan MD LAB BLOOD ORDERABLES Final Resul t [facility] [address] [place] [address], * (ABNORMAL) Complete blood count (02/05/2024 6:20 [...] 02/05/2024 7:52 AM [facility] Platelets 111(L) 130 - 400 [...] Final Resul t [facility] [address] [place] [address], [place] [phone] * (ABNORMAL) Comprehensive metabolic panel (02/05/2024 6:20 [...] [facility] Comment:Calculation based on the Chronic Kidney Disease Epidemiology Collaboration (CKD-EPI) equation refit without adjustment for race. BUN/Creatinine Ratio 25.0 LAB [...] LAB BLOOD ORDERABLES Final Resul t [facility] [address] [place] [address], documented in this encounter Visit Diagnoses Diagnosis Other prison (current) drug therapy documented in this encounter Care Teams Mattress Spring Encaser Relationship Specialty Start Date End Date Augustine Dan MD [address] [place], [place] PCP - General Internal Medicine 04/21/24 documented as of this encounter
--- OUTSIDE RECORDS SUMMARY | 2024-10-14 18:22 | XMS_ITS | Encounter Summary ---
Author Organization [employer] Address [address] [place] [address] Care Team Providers Care Marine Operations Coordinator Name Role Phone Augustine Dan MD Primary Care Provider [phone] Encounter Details Date Type Department Care Team (Late st Contact Info) Description 02/04/2024 Lab Requisition [facility] - Main Lab [address] [place] [address] Augustine Dan MD [address] [place] [address] Dr [address] KALANI Camacho Dysuria Social [...] for add-ons. 02/04/2024 7:02 PM EST [facility] Comment:Auto resulted. Urine Urine specimen obtained by clean catch procedure / Unknown 02/04/2024 1:30 PM EST 02/04/2024 5:27 PM EST us Augustine Dan MD LAB URINE ORDERABLES Final Resul t [facility] [address] [place] [address], * Urinalysis with reflex microscopic and culture (02/04/2024 1:30 PM EST) Specific [place] Urine 1.015 1.003 - 1.030 LAB URINALYSIS - AUTOMATED METHOD 02/04/2024 5:44 PM [facility] pH, Urine 7.5 5.0 - 8.0 pH LAB URINALYSIS - AUTOMATED METHOD 02/04/2024 5:44 PM [facility] Leukocytes, Urine Negative Negative LAB URINALYSIS - AUTOMATED METHOD 02/04/2024 5:44 PM [facility] Nitrite, Urine Negative Negative LAB URINALYSIS - AUTOMATED METHOD 02/04/2024 5:44 PM [facility] Protein, Urine Negative <=Trace mg/dL LAB URINALYSIS - AUTOMATED METHOD 02/04/2024 5:44 PM [facility] Glucose, Urine Negative Negative mg/dL LAB URINALYSIS - AUTOMATED METHOD 02/04/2024 5:44 PM [facility] Ketones, Urine Negative Negative mg/dL LAB URINALYSIS - AUTOMATED METHOD 02/04/2024 5:44 PM [facility] Urobilinogen, Urine 0.2 0.2 - 1.0 mg/dL LAB URINALYSIS - AUTOMATED METHOD 02/04/2024 5:44 PM [facility] Bilirubin, Urine Negative Negative LAB URINALYSIS - AUTOMATED METHOD 02/04/2024 5:44 PM [facility] Blood, Urine Negative Negative LAB URINALYSIS - AUTOMATED METHOD 02/04/2024 5:44 PM [facility] Urine Urine specimen obtained by clean catch procedure / Unknown 02/04/2024 1:30 PM EST 02/04/2024 5:12 PM EST us Augustine Dan MD LAB URINE ORDERABLES Final Resul t [facility] ([facility]) [facility] [address] [place] [address], documented in this encounter Visit Diagnoses Diagnosis Dysuria documented in this encounter Care Teams Marine Operations Coordinator Relationship Specialty Start Date End Date Augustine Dan MD [address] [place], [place] PCP - General Internal Medicine 04/21/24 documented as of this encounter
--- OUTSIDE RECORDS SUMMARY | 2024-10-14 18:22 | XMS_ITS | Encounter Summary ---
Author Organization [employer] Address [address] [place] [address] Care Team Providers Care Wildfire Prevention Specialist Name Role Phone Augustine Dan MD Primary Care Provider [phone] Encounter Details Date Type Department Care Team (Late st Contact Info) Description 04/21/[address] [facility] - Main Lab [address] [facility] [place] [address] Augustine Dan MD [address] [place] [address] [address] KALANI Camacho Major depressive disorder, [...] CBC auto differential (04/21/2024 4:50 AM EDT) [facility] WBC 4.3(L) 4.8 - 10.8 K/mcL LAB HEMETOLOGY METHOD 04/21/2024 5:57 AM EDT [facility] RBC 4.50 4.50 - 5.50 M/mcL LAB HEMETOLOGY METHOD 04/21/2024 5:57 AM EDT [facility] Hemoglobin 13.7 13.5 - 17.5 g/dL LAB HEMETOLOGY METHOD 04/21/2024 5:57 AM EDT [facility] Hematocrit 42.9 42.0 - 54.0 % LAB HEMETOLOGY METHOD 04/21/2024 5[facility] MCV 95.8 79.0 - 98.0 FL LAB HEMETOLOGY METHOD 04/21/2024 5:57 [facility] MCH 30.6 27.0 - 32.0 pcg LAB HEMETOLOGY METHOD 04/21/2024 5:57 [facility] MCHC 31.9(L) 32.0 - 37.0 g/dL LAB HEMETOLOGY METHOD 04/21/2024 5:57 [facility] RDW 14.5 11.0 - 15.0 % LAB HEMETOLOGY METHOD 04/21/2024 5:57 AM EDT [facility] Platelets 84(L) 130 - 400 K/mcL LAB HEMETOLOGY METHOD 04/21/2024 5:57 AM EDT [facility] Comment:previously verified by slide MPV 12.5(H) 7.0 - 11.0 FL LAB HEMETOLOGY METHOD 04/21/2024 5:57 [facility] NRBC 0.0 <1.0 % LAB HEMETOLOGY METHOD 04/21/2024 5:57 AM EDT [facility] NRBC Absolute 0.00 <0.10 K/mcL LAB HEMETOLOGY METHOD 04/21/2024 5:57 AM EDT [facility] Neutrophils Relative 30.0 % LAB HEMETOLOGY METHOD 04/21/2024 5:57 [facility] Lymphocytes Relative 50.1 % LAB HEMETOLOGY METHOD 04/21/2024 5:57 AM EDT [facility] Monocytes Relative 12.3 % LAB HEMETOLOGY METHOD 04/21/2024 5:57 AM EDT [facility] Eosinophils Relative 6.7 % LAB HEMETOLOGY METHOD 04/21/2024 5:57 AM [facility] Basophils Relative 0.7 % LAB HEMETOLOGY METHOD 04/21/2024 5:57 AM [facility] Immature Granulocytes Relative 0.2 % LAB HEMETOLOGY METHOD 04/21/2024 5:57 AM [facility] Neutrophils Absolute 1.29(L) 1.50 - 7.00 K/mcL LAB HEMETOLOGY METHOD 04/21/2024 5:57 AM [facility] Lymphocytes Absolute 2.16 1.00 - 5.00 K/mcL LAB HEMETOLOGY METHOD 04/21/2024 5:57 AM [facility] Monocytes Absolute 0.53 0.20 - 1.00 K/mcL LAB HEMETOLOGY METHOD 04/21/2024 5:57 [facility] Eosinophils Absolute 0.29 0.00 - 0.50 K/mcL LAB HEMETOLOGY METHOD 04/21/2024 5:57 [facility] Basophils Absolute 0.03 0.00 - 0.20 K/mcL LAB HEMETOLOGY METHOD 04/21/2024 5:57 AM [facility] Immature Granulocytes Absolute 0.01 0.00 - 0.03 K/mcL LAB HEMETOLOGY METHOD 04/21/2024 5:57 AM EDT [facility] Blood Venous blood specimen / Unknown 04/21/2024 4:50 AM EDT 04/21/2024 5:35 AM EDT us Augustine Dan MD LAB BLOOD ORDERABLES Final Resul t Performing Organization Address [facility]/ZIP Co de Phone Number [facility] [address] [place] [address], [place] [phone] * Vitamin D 25 hydroxy (04/21/2024 4:50 AM EDT) Pathologist [facility] Vit D, 25-Hydroxy 47.8 30.0 - 80.0 ng/mL LAB CHEMISTRY METHOD 04/21/2024 6:07 AM EDT [facility] Blood Venous blood specimen / Unknown 04/21/2024 4:50 AM EDT 04/21/2024 5:35 AM EDT us Augustine Dan MD LAB BLOOD ORDERABLES Final Resul t Performing Organization Address [facility] de Phone Number [facility] [address] [place] [address], [place] [phone] * Thyroid stimulating hormone (04/21/2024 4:50 AM EDT) [facility] TSH 2.64 0.40 - 4.00 mcIU/mL LAB CHEMISTRY METHOD 04/21/2024 6:08 AM EDT [facility] Blood Venous blood specimen / Unknown 04/21/2024 4:50 AM EDT 04/21/2024 5:35 AM EDT us Augustine Dan MD LAB BLOOD ORDERABLES Final Resul t Performing Organization Address City/[facility]/ZIP Co de Phone Number [facility] [address] [place] [address], [place] [phone] * (ABNORMAL) Comprehensive metabolic panel (04/21/2024 4:50 AM EDT) [facility] Signature Sodium 143 133 - 145 mmol/L LAB CHEMISTRY METHOD 04/21/2024 5:58 AM [facility] Potassium 4.0 3.5 - 5.5 mmol/L LAB CHEMISTRY METHOD 04/21/2024 5:58 AM [facility] Chloride 105 96 - 110 mmol/L LAB CHEMISTRY METHOD 04/21/2024 5:58 AM [facility] CO2 35(H) 21 - 32 mmol/L LAB CHEMISTRY METHOD 04/21/2024 5:58 AM [facility] Anion Gap 3 3 - 11 LAB CHEMISTRY METHOD 04/21/2024 5:58 AM [facility] Glucose 90 70 - 100 mg/dL LAB CHEMISTRY METHOD 04/21/2024 5:58 AM [facility] BUN 19 5 - 25 mg/dL LAB CHEMISTRY METHOD 04/21/2024 5:58 AM [facility] Creatinine 0.87 0.70 - 1.30 mg/dL LAB CHEMISTRY METHOD 04/21/2024 5:58 AM [facility] eGFR 99 >=60 mL/min/1. 73m2 LAB CHEMISTRY METHOD 04/21/2024 5:58 AM [facility] Comment:Calculation based on the Chronic Kidney Disease Epidemiology Collaboration (CKD-EPI) equation refit without adjustment for race. BUN/Creatinine Ratio 21.8 LAB CHEMISTRY METHOD 04/21/2024 5:58 AM [facility] Calcium 9.0 8.5 - 10.5 mg/dL LAB CHEMISTRY METHOD 04/21/2024 5:58 AM [facility] AST (SGOT) 9(L) 10 - 42 unit/L LAB CHEMISTRY METHOD 04/21/2024 5:58 AM [facility] ALT (SGPT) 11 10 - 60 unit/L LAB CHEMISTRY METHOD 04/21/2024 5:58 AM EDT [facility] Alkaline Phosphatase 43 42 - 121 unit/L LAB CHEMISTRY METHOD 04/21/2024 5:58 AM EDT [facility] Total Protein 6.3 6.0 - 8.0 g/dL LAB CHEMISTRY METHOD 04/21/2024 5:58 AM EDT [facility] Albumin 3.0(L) 3.2 - 5.0 g/dL LAB CHEMISTRY METHOD 04/21/2024 5:58 AM EDT [facility] Total Bilirubin 0.5 0.0 - 1.4 mg/dL LAB CHEMISTRY METHOD 04/21/2024 5:58 AM T [facility] Blood Venous blood specimen / Unknown 04/21/2024 4:50 AM EDT 04/21/2024 5:35 AM EDT us Augustine Dan MD LAB BLOOD ORDERABLES Final Resul t [facility] [address] [place] [address], documented in this encounter Visit Diagnoses Diagnosis Major depressive disorder, recurrent, unspecified (CMS/HCC V24) documented in this encounter Care Teams Wildfire Prevention Specialist Relationship Specialty Start Date End Date Augustine Dan MD [address] [place] [address] [address] [place] PCP - General Internal Medicine 04/21/24 documented as of this encounter
--- OUTSIDE RECORDS SUMMARY | 2024-10-14 18:22 | XMS_ITS | Clinical Summary ---
Author Organization [address] [facility] Address [address] [place] [address] Phone Care Team Providers Care Manager It Security Name Role Phone Augustine Dan MD Primary Care Provider [phone] Encounters Date Type Department Care Team Description 09/22/2024 Lab Requisition [facility] Lab [address] [place] [phone] Augustine Dan MD Other retirement (current) drug therapy 09/18/2024 Lab Requisition [facility] Lab [address] [place] [phone] Augustine Dan MD Thrombocytopenia, unspecified (CMS/HCC V24); Encounter for screening for malignant neoplasm of prostate; Encounter for screening for lipoid disorders 08/20/2024 Lab Requisition [facility] Lab [address] [place] [phone] Augustine Dan MD Encounter for therapeutic drug level monitoring; Other local company intermodal truck driver (current) drug therapy 07/20/2024 Lab Requisition [facility] Lab [address] [place] [phone] Augustine Dan MD Other local company intermodal truck driver (current) drug therapy from Last [...] 2015 Zoster Vaccines (1 of 2) 2015 Colorectal Cancer Screening: Colonoscopy 01/08/2022 HIV Screening 01/08/2022 Hepatitis C Screening 01/08/2022 Social Influencers of Health Screening 01/08/2022 Depression Screening 02/06/2024 COVID-19 Vaccine (1 - 2023-2 5 season) 2024 Influenza Vaccine (#1) 2024 Cholesterol Screening (Lipid Panel) 09/18/2029 09/18/2024 RSV Immunization Adult Patie nts (1 - [...] COUNT Routine 09/22/2024 5:40 AM EDT Other local company intermodal truck driver (current) drug therapy COMPLETE BLOOD COUNT Routine 09/18/2024 6:09 AM EDT Thrombocytopenia, unspecified ([facility]/HCC V24) Encounter for screening for malignant neoplasm of prostate Encounter for screening for lipoid disorders LIPID PANEL WITH REFLEX TO DIRECT LDL Routine 09/18/2024 6:09 AM EDT Thrombocytopenia, unspecified ([facility]/HCC V24) Encounter for screening for malignant neoplasm of prostate Encounter for screening for lipoid disorders PROSTATE SPECIFIC ANTIGEN SCREEN Routine 09/18/2024 6:09 AM EDT Thrombocytopenia, unspecified ([facility]/HCC V24) Encounter for screening for malignant neoplasm of prostate Encounter for screening for lipoid disorders SST - GOLD Routine 08/20/2024 6:35 AM EDT Encounter for therapeutic drug level monitoring Other retirement (current) drug therapy B-TYPE NATRIURETIC PEPTIDE Routine 08/20/2024 6:35 AM EDT Encounter for therapeutic drug level monitoring Other retirement (current) drug therapy AMMONIA Routine 08/20/2024 6:35 AM EDT Encounter for therapeutic drug level monitoring Other local company intermodal truck driver (current) drug therapy VALPROIC ACID LEVEL, TOTAL Routine 08/20/2024 6:35 AM EDT Encounter for therapeutic drug level monitoring Other retirement (current) drug therapy BASIC METABOLIC PANEL Routine 08/20/2024 6:35 AM EDT Encounter for therapeutic drug level monitoring Other retirement (current) drug therapy SST - GOLD Routine 07/20/2024 7:36 AM EDT Other retirement (current) drug therapy COMPLETE BLOOD COUNT Routine 07/20/2024 7:36 AM EDT Other retirement (current) drug therapy from Last 3 Months Results * (ABNORMAL) Platelet count (09/22/2024 5:40 AM EDT) Platelets 118(L) 130 - 400 K/mcL LAB HEMETOLOGY METHOD 09/22/2024 7:28 AM EDT [facility] MPV 10.4 7.0 - 11.0 FL LAB HEMETOLOGY METHOD 09/22/2024 7:28 AM EDT [facility] Blood Venous blood specimen / Unknown 09/22/2024 5:40 AM EDT 09/22/2024 6:39 AM EDT us Augustine Dan MD LAB BLOOD ORDERABLES Final Resul t [facility] [address] [place] [address], [place] [phone] * Prostate specific antigen screen (09/18/2024 6:09 AM EDT) Pathologist [facility] PSA 0.62 0.00 - 4.00 ng/mL LAB CHEMISTRY METHOD 09/18/2024 8:42 AM EDT [facility] Blood Venous blood specimen / Unknown 09/18/2024 6:09 AM EDT 09/18/2024 7:56 AM EDT Narrative [facility] - 09/18/2024 8:42 AM EDT The Siemens Advia Chrysallisaur Chemiluminescent Immunoassay is used. Results obtained with different assay methods or kits cannot be used interchangeably. Results cannot be interpreted as absolute evidence of the presence or absence of malignant disease. Augustine Dan MD LAB BLOOD ORDERABLES Final Resul t [facility] [address] [place] [address], [place] [phone] * Lipid panel with reflex to direct LDL (09/18/2024 6:09 AM EDT) [facility] Cholesterol 144 0 - 200 mg/dL LAB CHEMISTRY METHOD 09/18/2024 7:56 AM EDT [facility] Triglycerides 72 0 - 150 mg/dL LAB CHEMISTRY METHOD 09/18/2024 7:56 AM EDT [facility] HDL 47 >=40 mg/dL LAB CHEMISTRY METHOD 09/18/2024 7:56 AM EDT [facility] LDL Calculated 83 0 - 100 mg/dL LAB CHEMISTRY METHOD 09/18/2024 7:56 AM EDT [facility] Comment:Estimated LDL Calcul ated using equation: Total cholesterol - HDL cholesterol - (Triglycerides/5) VLDL Cholesterol Von 14.4 mg/dL LAB CHEMISTRY METHOD 09/18/2024 7:56 AM EDT [facility] Non HDL Chol. (LDL+VLDL) 97 <145 mg/dL LAB CHEMISTRY METHOD 09/18/2024 7:56 AM EDT [facility] Chol/HDL Ratio 3.1 0.0 - 4.4 LAB CHEMISTRY METHOD 09/18/2024 7:56 AM EDT [facility] Blood Venous blood specimen / Unknown 09/18/2024 6:09 AM EDT 09/18/2024 7:56 AM EDT us Augustine Dan MD LAB BLOOD ORDERABLES Final Resul t [facility] [address] [place] [address], [place] [phone] * (ABNORMAL) Complete blood count (09/18/2024 6:09 AM EDT) Only the most recent of2 resultswithin the time period is included. WBC 4.3(L) 4.8 - 10.8 K/mcL LAB HEMETOLOGY METHOD 09/18/2024 8:44 AM [facility] RBC 4.00(L) 4.50 - 5.50 [facility] LAB HEMETOLOGY METHOD 09/18/2024 8:44 AM [facility] Hemoglobin 12.5(L) 13.5 - 17.5 g/dL LAB HEMETOLOGY METHOD 09/18/2024 8:44 AM T [facility] Hematocrit 38.2(L) 42.0 - 54.0 % LAB HEMETOLOGY METHOD [facility]18[facility]24 [facility] MCV 94.6 79.0 - 98.0 FL LAB HEMETOLOGY METHOD 09/18/2024 8:44 AM [facility] MCH 30.9 27.0 - 32.0 pcg LAB HEMETOLOGY METHOD 09/18/2024 8:44 AM [facility] MCHC 32.7 32.0 - 37.0 g/dL LAB HEMETOLOGY METHOD 09/18/2024 8:44 AM EDT [facility] RDW 13.8 11.0 - 15.0 % LAB HEMETOLOGY METHOD 09/18/2024 8:44 AM EDT [facility] Platelets 89(L) 130 - 400 K/mcL LAB HEMETOLOGY METHOD 09/18/2024 8:44 AM EDT [facility] MPV 10.6 7.0 - 11.0 FL LAB HEMETOLOGY METHOD 09/18/2024 8:44 AM EDT [facility] NRBC 0.0 <1.0 % LAB HEMETOLOGY METHOD 09/18/2024 8:44 AM EDT [facility] NRBC Absolute 0.00 <0.10 K/mcL LAB HEMETOLOGY METHOD 09/18/2024 8:44 AM EDT [facility] Blood Venous blood specimen / Unknown 09/18/2024 6:09 AM EDT 09/18/2024 7:51 AM EDT us Augustine Dan MD LAB BLOOD ORDERABLES Final Resul t [facility] [address] [place] [address], [place] [phone] * SST tube (08/20/2024 6:35 AM EDT) Only the most recent of2 resultswithin the time period is included. Extra Tube Hold for add-ons. 08/20/2024 9:02 AM EDT [facility] Comment:Auto resulted. Blood Venous blood specimen / Unknown 08/20/2024 6:35 AM EDT 08/20/2024 7:28 AM EDT us Augustine Dan MD LAB BLOOD ORDERABLES Final Resul t Performing Organization Address [facility] de Phone Number [facility] [address] [place] [address], [place] [phone] * (ABNORMAL) B-type natriuretic peptide (08/20/2024 6:35 AM EDT) BNP 112(H) <=100 pcg/mL LAB CHEMISTRY METHOD 08/20/2024 10:06 AM EDT [facility] Blood Venous blood specimen / Unknown 08/20/2024 6:35 AM EDT 08/20/2024 7:28 AM EDT us Augustine Dan MD LAB BLOOD ORDERABLES Final Resul t Performing Organization Address [facility] de Phone Number [facility] [address] [place] [address], [place] [phone] * Ammonia (08/20/2024 6:35 AM EDT) Ammonia 26 11 - 35 mcmol/L LAB CHEMISTRY METHOD 08/20/2024 7:53 AM EDT [facility] Blood Venous blood specimen / Unknown 08/20/2024 6:35 AM EDT 08/20/2024 7:28 AM EDT us Augustine Dan MD LAB BLOOD ORDERABLES Final Resul t Performing Organization Address [facility] de Phone Number [facility] [address] [place] [address], [place] [phone] * Valproic acid level, total (08/20/2024 6:35 AM EDT) Valproic Acid, Total 92 50 - 100 mcg/mL LAB CHEMISTRY METHOD 08/20/2024 8:51 AM EDT [facility] Blood Venous blood specimen / Unknown 08/20/2024 6:35 AM EDT 08/20/2024 7:28 AM EDT us Augustine Dan MD LAB BLOOD ORDERABLES Final Resul t [facility] [address] [place] [address], [place] [phone] * (ABNORMAL) Basic metabolic panel (08/20/2024 6:35 AM EDT) Sodium 141 133 - 145 mmol/L LAB CHEMISTRY METHOD 08/20/2024 8:38 AM [facility] Potassium 4.6 3.5 - 5.5 mmol/L LAB CHEMISTRY METHOD 08/20/2024 8:38 AM [facility] Chloride 102 96 - 110 mmol/L LAB CHEMISTRY METHOD 08/20/2024 8:38 AM [facility] CO2 35(H) 21 - 32 mmol/L LAB CHEMISTRY METHOD 08/20/2024 8:38 AM [facility] Anion Gap 4 3 - 11 LAB CHEMISTRY METHOD 08/20/2024 8:38 AM [facility] Glucose 84 70 - 100 mg/dL LAB CHEMISTRY METHOD 08/20/2024 8:38 AM [facility] BUN 17 5 - 25 mg/dL LAB CHEMISTRY METHOD 08/20/2024 8:38 AM [facility] Creatinine 0.82 0.70 - 1.30 mg/dL LAB CHEMISTRY METHOD 08/20/2024 8:38 AM [facility] eGFR 101 >=60 mL/min/1. 73m2 LAB CHEMISTRY METHOD 08/20/2024 8:38 AM [facility] Comment:Calculation based on the Chronic Kidney Disease Epidemiology Collaboration (CKD-EPI) equation refit without adjustment for race. BUN/Creatinine Ratio 20.7 LAB CHEMISTRY METHOD 08/20/2024 8:38 AM EDT [facility] Calcium 9.0 8.5 - 10.5 mg/dL LAB CHEMISTRY METHOD 08/20/2024 8:38 AM EDT [facility] ([facility] Blood Venous blood specimen / Unknown 08/20/2024 6:35 AM EDT 08/20/2024 7:28 AM EDT us Augustine Dan MD LAB BLOOD ORDERABLES Final Resul t [facility] ([facility] [address] [place] [address], [place] [phone] from Last 3 Months Insurance MEDICAID - [place] Care Teams Manager It Security Relationship Specialty Start Date End Date Augustine Dan MD [address] [place] [address] Dr [address] [place] PCP - General Internal Medicine 04/21/24
--- OUTSIDE RECORDS SUMMARY | 2024-10-14 18:22 | XMS_ITS | Encounter Summary ---
Author Organization [employer] Address [address] [facility] [address] [place] [address] Care Team Providers Care Electrical Contacts Adjuster Name Role Phone Unavailable Primary Care Provider Unavailabl e Encounter Details Date Type Department Care Team (Latest Contact Info) Description 08/30/2018 Abstract [facility] CONVERSIONS Dental, Provider, DDS Social History Tobacco [...]
--- NOTE | 2024-10-14 19:57 | PC.NURSE ---
assumed care of pt, boosted in bed, textile technical officer at bedside to help with urinal. Pt respirations even and unlabored.
[2024-10-14 20:02] LABS: Appearance Urine Clear; Glucose Urine UA Negative (Negative); PH 6.0 (5.0-9.0); Specific Gravity - Urine 1.015 (1.005-1.025)
--- NOTE | 2024-10-14 20:43 | PM.IMHP ---
History of Present Illness Date of Service: 10/14/24 Attending physician on admission: Bran Benitez Chief Complaint: AMS Patient is a 59-year-old male with a past medical history significant for cognitive impairment, hypertension, aspiration pneumonia, seizure disorder, history [facility], who resides at [facility], who presented to the ED due to altered mental status and fever. The patient had a temperature of 101.6 degrees. The patient is usually A&O x4 however today he is A&O x2. He also had a fall yesterday without a head strike onto his right arm. He does have a hematoma, x-ray negative for humerus fracture. Head CT also negative. Patient was found to be COVID positive. The patient is agitated and states I just want to rest . he denies chest pain, headache, visual changes, shortness of breath, nausea or vomiting. Review of Systems Constitutional: Constitutional: Denies body ache(s), Denies chills, Denies fatigue and Denies headache(s) Eyes: Eyes: Denies change in vision ENT: Denies headache(s), Denies nasal congestion and Denies sore throat Cardiovascular: Cardiovascular: Denies chest pain, Denies rapid heart rate, Denies lightheadedness and Denies dyspnea Respiratory: Respiratory: Denies chest congestion, Denies cough, Denies dyspnea and Denies wheezing Gastrointestinal: Gastrointestinal: Denies abdominal pain, Denies nausea and Denies vomiting Genitourinary: Genitourinary: Denies dysuria and Denies urinary urgency Musculoskeletal: Musculoskeletal: Denies myalgias Integumentary/Breasts: Skin/Breast: Denies rash Neurologic: Denies confusion and Denies headache(s) Psychiatric: Psychiatric: Denies confusion Endocrine: Endocrine: Denies fatigue Hematologic/Lymphatic: Hematologic/Lymphatic: Denies easy bleeding and Denies easy bruising Allergic/Immunologic: Allergic/Immunologic: Denies wheezing [facility] Medical History Encounter for cardioversion procedure Neurogenic bladder Constipation Resides in intermediate facility History of GI bleed Seizure disorder Urinary incontinence Osteoarthritis Rectal prolapse Cognitive impairment Hx of deep venous thrombosis Thrombocytopenia Bilateral cataracts Personal history of COVID-19 Diverticular disease Flexion contractures OCD (obsessive compulsive disorder) History of hemodialysis Depression Neuroleptic malignant syndrome Epilepsy Deformity of left hand Generalized anxiety disorder Major depressive disorder Mild cognitive impairment Hypertension Family History Sister Breast CA, Onset Age: 51 Ovarian ca, Onset Age: 55 Father Prostate CA, Onset Age: 70 Mother Colorectal cancer, Onset Age: 39 Kidney carcinoma, Onset Age: 67 Maternal Grandmother Colorectal cancer, Onset Age: 70 Maternal Aunt Colorectal cancer Surgical History History of incisional hernia repair (03/15/22) History of repair of rectocele Hx of appendectomy Hx of colonoscopy Social History Household Members: Other Household Members Other:: From [facility] Facility Housing: Alf Housing Other:: patient coming from [facility] Are you a primary outdoor emergency care technician to a significant other at home: No Unable to assess alcohol history related to: Unable to respond Alcohol intake: never Comment: [facility] Patient Tobacco Use Status: Never used Tobacco Smoked in Last 30 Days: No e-Cigarette/Vaping Use: Never Used Second Hand Smoke Exposure: No Use of substances other than those prescribed or required for medical reasons: No Advance Directives: Yes Advance Directives on File: Yes Advance Directives Date on File: 11/21/19 Nutrition Risks: No Nutritional Risk service: No Current occupational status: disabled Meds Allergies Allergy/AdvReac Type Severity Reaction Status Date / Time aripiprazole (From ABILIFY) Allergy Severe Involuntary Verified 10/14/24 15:35 Spasms droperidol (From INAPSINE) Allergy Severe Involuntary Verified 10/14/24 15:35 Spasms haloperidol (From HALDOL) Allergy Severe Involuntary Verified 10/14/24 15:35 Spasms prochlorperazine (From Allergy Severe Involuntary Verified 10/14/24 15:35 COMPAZINE) Spasms promethazine (From PHENERGAN) Allergy Severe Involuntary Verified 10/14/24 15:35 Spasms sulfamethoxazole (From Allergy Severe Anaphylaxis Verified 10/14/24 15:35 BACTRIM) trimethoprim (From BACTRIM) Allergy Severe Anaphylaxis Verified 10/14/24 15:35 Active Medications: Current Medications Acetaminophen (Acetaminophen 325 Mg Tablet) 650 mg PO Q6H PRN PRN Reason: Pain, Mild 1-3,fever,headache Calcium Carbonate (Calcium Carbonate 750 Mg Tab.Chew) 750 mg PO Q4H PRN PRN Reason: Heartburn Enoxaparin Sodium (Enoxaparin Sodium 40 Mg/0.4 Ml Syringe) 40 mg SUBCUT Q24H [facility] Last Admin: 10/14/24 20:26 Dose: 40 mg Magnesium Hydroxide (Milk Of Magnesia 30 Ml Oral.Susp) 30 ml PO DAILY PRN PRN Reason: Constipation Melatonin (Melatonin 3 Mg Tablet) 6 mg PO BEDTIME PRN PRN Reason: Insomnia Sodium Chloride (0.9 % Sodium Chloride Flush 3 Ml Syringe) 3 ml IVFLUSH QSHIFT [facility] Home Medications ?Medication ?Instructions ?Recorded ?Confirmed ?Last Taken ?Type diazepam 2 mg tablet 2 mg PO TID 11/17/19 10/14/24 07/18/24 History melatonin 1 mg tablet 1 mg PO BEDTIME 11/17/19 10/14/24 11/16/19 History cholecalciferol (vitamin D3) 25 50 mcg PO DAILY 02/13/20 10/14/24 Unknown History mcg (1,000 unit) tablet pregabalin 100 mg capsule 100 mg PO TID 02/13/20 10/14/24 03/15/22 History polyethylene glycol 3350 17 17 g PO BID 03/09/22 10/14/24 Unknown History gram/dose oral powder (Miralax) divalproex 500 mg tablet,extended 500 mg PO BID 04/20/22 10/14/24 07/18/24 History release 24 hr (Depakote ER) aluminum-mag hydroxide-simethicone 30 ml PO Q4H PRN HEARTBURN OR 05/11/22 10/14/24 Unknown History 200 mg-200 mg-20 mg/5 mL oral susp NAUSEA dextromethorphan-guaifenesin 10 10 ml PO Q4H PRN Cough/congestion 05/11/22 10/14/24 Unknown History mg-100 mg/5 mL oral syrup (Tussin DM) psyllium 1 packet PO BID 05/11/22 10/14/24 Unknown History metoprolol succinate 25 mg 25 mg PO BID 02/23/24 10/14/24 07/18/24 History tablet,extended release 24 hr midodrine 5 mg tablet 5 mg PO TID@00,1400,1800 02/23/24 10/14/24 07/18/24 History sennosides 8.6 mg-docusate sodium 1 tab-cap PO DAILY PRN Constipation 02/23/24 10/14/24 Unknown History 50 mg tablet ondansetron 4 mg disintegrating 4 mg PO Q6H PRN NAUSEA, VOMITING 03/20/24 10/14/24 Unknown History tablet lactulose 10 gram/15 mL oral 30 ml PO DAILY Constipation 06/06/24 10/14/24 Unknown History solution witch monica 20 % topical pads 1 pad topical NEEDED PRN 06/06/24 10/14/24 Unknown History Hemorrhoids on anus acetaminophen 325 mg tablet 650 mg PO Q6H PRN Fever Or Pain 09/14/24 10/14/24 Unknown History bisacodyl 10 mg rectal suppository 10 mg NJ DAILY PRN Constipation 10/14/24 10/14/24 Unknown History sennosides 8.6 mg-docusate sodium 1 tab-cap PO BEDTIME 10/14/24 10/14/24 Unknown History 50 mg tablet sodium phosphates 19 gram-7 118 ml NJ DAILY PRN Constipation 10/14/24 10/14/24 Unknown History gram/118 mL enema (Fleet Enema) Physical Exam Vital Signs and Narrative: Vital Signs: Last Vital Signs Temp 98.4 F 10/14/24 19:20 Pulse 75 10/14/24 19:20 Resp 18 10/14/24 19:20 BP 94/55 L 10/14/24 19:20 Pulse Ox 95 10/14/24 19:20 O2 Del Method Room Air 10/14/24 19:20 BMI result Body Mass Index 28.8 General: AOx3, no acute distress Resp: CTA bilaterally CVS: S1, S2, RRR GI: +BS, NT, no distention Skin: Warm, dry Neuro: Cranial nerves II-XII grossly intact bilaterally. Motor grossly intact bilaterally Extremities: No pitting edema Psych: Agitated Const: General: No confusion Orientation/consciousness: No confusion Neuro: General: No confusion Results Labs 10/14/24 15:56 10/14/24 15:56 Labs: Laboratory Results - last 24 hr 10/14/24 10/14/24 10/14/24 15:55 15:56 15:58 MCV 90.9 MCH 30.7 MCHC 33.8 RDW 13.6 Plt Count 76 L MPV 11.4 Immature Gran % (Auto) 0.3 Neut % (Auto) 63.5 Lymph % (Auto) 17.6 L [place] % (Auto) 15.4 H Eos % (Auto) 2.7 Baso % (Auto) 0.5 Lymph # (Auto) 1.1 L [place] # (Auto) 0.9 Eos # (Auto) 0.2 Baso # (Auto) 0.0 Abs Immat Gran (auto) 0.02 Absolute Neuts (auto) 3.8 Absolute Nucleated RBC 0.000 Nucleated RBC % (auto) 0.0 Anion Gap 12 Estim Creat Clear Calc 96.7 Estimated GFR > 60 Random Glucose 99 Lactic Acid 1.3 Calcium 8.7 D Magnesium 2.0 Total Bilirubin 0.4 Direct Bilirubin 0.1 AST 18 ALT 6 Alkaline Phosphatase 42 B-Natriuretic Peptide 57 Total Protein 6.4 L Albumin 3.8 Lipase 11 Urine Color Urine Appearance Urine pH Ur Specific [place] Urine Protein Urine Glucose (UA) Urine Ketones Urine Blood Urine Nitrite Ur Leukocyte Esterase COVID-19 ([facility]) Positive A COVID-19 Clin Com See Note 10/14/24 19:49 MCV MCH MCHC RDW Plt Count MPV Immature Gran % (Auto) Neut % (Auto) Lymph % (Auto) [place] % (Auto) Eos % (Auto) Baso % (Auto) Lymph # (Auto) [place] # (Auto) Eos # (Auto) Baso # (Auto) Abs Immat Gran (auto) Absolute Neuts (auto) Absolute Nucleated RBC Nucleated RBC % (auto) Anion Gap Estim Creat Clear Calc Estimated GFR Random Glucose Lactic Acid Calcium Magnesium Total Bilirubin Direct Bilirubin AST ALT Alkaline Phosphatase B-Natriuretic Peptide Total Protein Albumin Lipase Urine Color Yellow Urine Appearance Clear Urine pH 6.0 Ur Specific [place] 1.015 Urine Protein Negative Urine Glucose (UA) Negative Urine Ketones Trace Urine Blood Negative Urine Nitrite Negative Ur Leukocyte Esterase Negative COVID-19 ([facility]) COVID-19 Clin Com Assessment and Plan (1) Acute metabolic encephalopathy: Status: Acute (2) Viral sepsis: Status: Acute (3) COVID-19: Status: Acute Plan Patient is a 59-year-old male with a past medical history significant for cognitive impairment, hypertension, aspiration pneumonia, seizure disorder, history DVT/PE on Eliquis, who resides at [facility], who presented to the ED due to altered mental status and fever. Acute metabolic encephalopathy (resolving) with viral sepsis secondary to COVID - WBC normal, tachypneic, febrile, lactic acid normal, blood cultures x2 pending, not severe sepsis - chest x-ray pending - UA negative - COVID + - patient given 30 cc/kg fluid bolus of LR in ED, blood pressure is soft - started on ceftriaxone prophylactically, no bacterial infection identified at this time, we will hold on further antibiotics - supportive care with Tylenol - monitor CBC and BMP Hypertension - blood pressure soft, hold home meds at this time Seizure disorder - continue home meds History DVT/PE - continue Eliquis chronic thrombocytopenia - PLT 76, stable, not secondary to sepsis - avoid NSAIDs Med rec pending Full code VTE prophylaxis: Dennis Patient with acute metabolic encephalopathy with viral sepsis secondary to COVID, requiring admission for at least 2 midnight stay for monitoring and supportive care. Quality Stroke Does the patient have a stroke diagnosis?: No VTE Prior VTE?: Yes VTE Risk Level:: Medical - moderate - high VTE Device Contraindication: Treatment Not Indicated VTE Drug Contraindication: N/A - Med Ordered
--- NOTE | 2024-10-14 21:07 | PHA.MEDREC ---
Pharmacy Consult ? Medication Reconciliation Pharmacy has completed the medication reconciliation.Med rec complete, used list from [facility]
--- NOTE | 2024-10-14 21:29 | PC.NURSE ---
pt had b/p drop as he was sleeping deeply, pt woken to name, b/p 100/61 when rechecked, admitting provider at bedside.
[2024-10-15 05:06] LABS: MANUAL DIFF FLAG NO
[2024-10-15 05:13] LABS: Hematocrit 37.5 % (42.0-52.0); Hemoglobin 12.6 g/dl (14.0-18.0); Imm Gran Abs Auto 0.01 X10*3/uL (0.00-0.03); Imm Gran Pct Auto 0.2 % (0.0-0.4); Lymphocytes Absolute Auto 1.3 X10*3/uL (1.2-4.9); Mean Corpuscular HGB Conc 33.6 g/dl (31.0-36.0); Mean Corpuscular Hemoglobin 30.8 pg (27.0-33.0); Mean Corpuscular Volume 91.7 fL (80.0-98.0); NRBC Abs Auto 0.000 X10*3/uL (0.0-0.012); NRBC Pct Auto 0.0 /100WBC (0.0-0.2); Red Blood Count 4.09 X10*6/uL (4.60-5.80); White Blood Count 4.3 X10*3/uL (4.8-10.8)
[2024-10-15 05:14] LABS: Platelet Count 64 X10*3/uL (160-400)
[2024-10-15 05:53] LABS: Alanine Aminotransferase < 6 U/L (0-40); Albumin Level 3.3 g/dL (3.5-5.0); Alkaline Phosphatase 33 U/L (39-117); Anion Gap 15 (12-20); Aspartate Amino Transferase 21 U/L (5-37); Blood Urea Nitrogen 13 mg/dL (9-16); Calcium 8.5 mg/dL (8.4-10.2); Carbon Dioxide 27 mmol/L (22-29); Chloride 107 mmol/L (96-108); Creatinine Clr Calc Pharmacy 131.1; Estimated Glomerular Filt Rate > 60; Potassium 4.0 mmol/L (3.3-5.1); Sodium 145 mmol/L (135-145); Total Protein 6.0 g/dL (6.5-8.0)
[2024-10-15 06:14] VITALS: BP 115/73; PULSE 68; RESP 16; TEMP 37.7; O2SAT 94
[2024-10-15 07:30] VITALS: BP 107/77; PULSE 68; RESP 16; TEMP 37.6; O2SAT 94
--- NOTE | 2024-10-15 09:00 | PC.NURSE ---
Pt Awake and oriented X3. VSS trip PO well. NAD. Pt with purewick on draining large amounts clr yellow urine
[2024-10-15] MEDS: 0.9 % Sodium Chloride Flush 3 ML SYRINGE IVFLUSH ×3 (09:14→20:58)
--- NOTE | 2024-10-15 10:57 | MHC.CM.PN ---
Pt resides at [facility], His sister, Elizabeth Iraheta is his HCP, . Pt. will return to [facility] [place], via BLS. CM to follow for [place] needs. CM will inform HCP of transfer at [place], Elizabeth has said that we can call her anytime with questions, as the pt. is not able to give any history.
[2024-10-15 12:25] VITALS: BP 117/79; PULSE 73; RESP 18; O2SAT 98
--- NOTE | 2024-10-15 12:25 | PC.NURSE ---
Pt Awake and oriented but keeps repeating self stating he does not want to go home. Pt reassured he is staying for admission. Pt VSS NAD
--- NOTE | 2024-10-15 15:21 | HO.PM.IMPN ---
Subjective Subjective Date of Service: 10/15/24 Interval History: No acute issues overnight. [facility] Review of Systems Unable to obtain Physical Exam Vital Signs: Vital Signs: Last Vital Signs Temp 99.7 F 10/15/24 07:30 Pulse 73 10/15/24 12:25 Resp 18 10/15/24 12:25 BP 117/79 10/15/24 12:25 Pulse Ox 98 10/15/24 12:25 O2 Del Method Room Air 10/15/24 12:25 BMI result Body Mass Index 28.8 Const: Other: Awake alert no acute distress Resp: Other: Clear to auscultation bilaterally with only scattered expiratory wheezes Cardio: Other: No S4; positive S1-S2; no S3 murmurs rubs or gallops GI: Other: Soft nontender nondistended normoactive bowel sounds Extrem: Other: No edema bilaterally Objective Data Active Medications Acetaminophen (Acetaminophen 325 Mg Tablet) 650 mg PO Q6H PRN PRN Reason: Pain, Mild 1-3,fever,headache Al Hydroxide/Mg Hydroxide (Magnesium Hydrox/Alum Hydrox 30 Ml Oral.Susp) 30 ml PO Q4H PRN PRN Reason: HEARTBURN OR NAUSEA Apixaban (Apixaban 5 Mg Tablet) 5 mg PO BID [facility] Last Admin: 10/15/24 09:31 Dose: 5 mg Documented By: ANMOL Bisacodyl (Bisacodyl 10 Mg Supp.Rect) 10 mg [place] DAILY PRN PRN Reason: Constipation Calcium Carbonate (Calcium Carbonate 750 Mg Tab.Chew) 750 mg PO Q4H PRN PRN Reason: Heartburn Diazepam (Diazepam 2 Mg Tablet) 2 mg PO TID [facility] Last Admin: 10/15/24 14:53 Dose: 2 mg Documented By: ANMOL Divalproex Sodium (Divalproex Sodium Er 500 Mg Tab.Er.24h) 500 mg PO BID [facility] Last Admin: 10/15/24 09:06 Dose: 500 mg Documented By: ANMOL Guaifenesin/Dextromethorphan (Guaifenesin Dm 100/10/5 Ml 5 Ml Syrup) 10 ml PO Q4H PRN PRN Reason: Cough/congestion Lactulose (Lactulose 20 Gm/30 Ml Solution) 20 gm PO DAILY [facility] Last Admin: 10/15/24 09:14 Dose: 20 gm Documented By: ANMOL Magnesium Hydroxide (Milk Of Magnesia 30 Ml Oral.Susp) 30 ml PO DAILY PRN PRN Reason: Constipation Melatonin (Melatonin 3 Mg Tablet) 6 mg PO BEDTIME PRN PRN Reason: Insomnia Melatonin (Melatonin 3 Mg Tablet) 1 mg PO BEDTIME [facility] Last Admin: 10/14/24 23:00 Dose: 1 mg Documented By: JUAQUIN Midodrine (Midodrine Hcl 5 Mg Tablet) 5 mg PO TID@0900,1400,1800 [facility] Last Admin: 10/15/24 15:20 Dose: 5 mg Documented By: ANMOL Polyethylene Glycol (Polyethylene Glycol 3350 17 Gm Powd.Pack) 17 gm PO BID [facility] Last Admin: 10/15/24 09:14 Dose: 17 gm Documented By: ANMOL Pregabalin (Pregabalin 100 Mg Capsule) 100 mg PO TID [facility] Last Admin: 10/15/24 14:53 Dose: 100 mg Documented By: ANMOL Psyllium Hydrophilic Mucilloid (Psyllium Seed 3.7 Gm Packet) 3.7 gm PO BID [facility] Last Admin: 10/15/24 09:19 Dose: Not Given Documented By: ANMOL Non-Admin Reason: Med Not Available Senna/Docusate Sodium (Sennosides/Docusate Sodium Tablet) 1 tab PO BEDTIME [facility] Senna/Docusate Sodium (Sennosides/Docusate Sodium Tablet) 1 tab PO DAILY PRN PRN Reason: Constipation Sodium Biphosphate/Sodium Phosphate (Sodium Phosphate,[place]-Dibasic 133 Ml Enema) 118 ml [place] DAILY PRN PRN Reason: Constipation Sodium Chloride (0.9 % Sodium Chloride Flush 3 Ml Syringe) 3 ml IVFLUSH QSHIFT [facility] Last Admin: 10/15/24 09:14 Dose: 3 ml Documented By: ANMOL Vitamin D (Cholecalciferol (Vitamin D3) 25 Mcg Tablet) 50 mcg PO DAILY [facility] Last Admin: 10/15/24 09:06 Dose: 50 mcg Documented By: ANMOL Labs 10/15/24 04:03 10/15/24 04:03 Labs: Laboratory Results - last 24 hr 10/14/24 10/14/24 10/14/24 15:55 15:56 15:58 MCV 90.9 MCH 30.7 MCHC 33.8 RDW 13.6 Plt Count 76 L MPV 11.4 Immature Gran % (Auto) 0.3 Neut % (Auto) 63.5 Lymph % (Auto) 17.6 L [place] % (Auto) 15.4 H Eos % (Auto) 2.7 Baso % (Auto) 0.5 Lymph # (Auto) 1.1 L [place] # (Auto) 0.9 Eos # (Auto) 0.2 Baso # (Auto) 0.0 Abs Immat Gran (auto) 0.02 Absolute Neuts (auto) 3.8 Absolute Nucleated RBC 0.000 Nucleated RBC % (auto) 0.0 Anion Gap 12 Estim Creat Clear Calc 96.7 Estimated GFR > 60 Random Glucose 99 Lactic Acid 1.3 Calcium 8.7 D Magnesium 2.0 Total Bilirubin 0.4 Direct Bilirubin 0.1 AST 18 ALT 6 Alkaline Phosphatase 42 B-Natriuretic Peptide 57 Total Protein 6.4 L Albumin 3.8 Lipase 11 Urine Color Urine Appearance Urine pH Ur Specific [place] Urine Protein Urine Glucose (UA) Urine Ketones Urine Blood Urine Nitrite Ur Leukocyte Esterase COVID-19 ([facility]) Positive A COVID-19 Clin Com See Note 10/14/24 10/15/24 19:49 04:03 MCV 91.7 MCH 30.8 MCHC 33.6 RDW 13.4 Plt Count 64 L MPV 11.2 Immature Gran % (Auto) 0.2 Neut % (Auto) 45.0 Lymph % (Auto) 29.3 [place] % (Auto) 18.5 H Eos % (Auto) 6.3 H Baso % (Auto) 0.7 Lymph # (Auto) 1.3 [place] # (Auto) 0.8 Eos # (Auto) 0.3 Baso # (Auto) 0.0 Abs Immat Gran (auto) 0.01 Absolute Neuts (auto) 1.9 L Absolute Nucleated RBC 0.000 Nucleated RBC % (auto) 0.0 Anion Gap 15 Estim Creat Clear Calc 131.1 Estimated GFR > 60 Random Glucose 77 Lactic Acid Calcium 8.5 Magnesium Total Bilirubin 0.4 Direct Bilirubin AST 21 ALT < 6 Alkaline Phosphatase 33 L B-Natriuretic Peptide Total Protein 6.0 L Albumin 3.3 L Lipase Urine Color Yellow Urine Appearance Clear Urine pH 6.0 Ur Specific [place] 1.015 Urine Protein Negative Urine Glucose (UA) Negative Urine Ketones Trace Urine Blood Negative Urine Nitrite Negative Ur Leukocyte Esterase Negative COVID-19 ([facility]) COVID-19 Clin Com Assessment and Plan (1) COVID-19: Status: Acute (2) Hypertension: Status: Acute Plan Patient is a 59-year-old male with a past medical history significant for cognitive impairment, hypertension, aspiration pneumonia, seizure disorder, history DVT/PE on Eliquis, who resides at [facility], who presented to the ED due to altered mental status and fever. 1Acute metabolic encephalopathy (resolving) with viral sepsis secondary to COVID -mental status back to baseline -we will observe overnight and follow sats -COVID + workup otherwise unremarkable 2.Hypertension -acceptable control off meds -can resume at [facility] 1 3.Seizure disorder - continue home meds 4.History DVT/PE - continue Eliquis Med rec pending Full code VTE prophylaxis: Eliquis Patient with acute metabolic encephalopathy with viral sepsis secondary to COVID, requiring admission for at least 2 midnight stay for monitoring and supportive care. Quality Stroke Does the patient have a stroke diagnosis?: No VTE Prior VTE?: Yes VTE Risk Level:: Medical - moderate - high VTE Device Contraindication: Treatment Not Indicated VTE Drug Contraindication: N/A - Med Ordered
--- NOTE | 2024-10-15 15:25 | PC.NURSE ---
Pt continues to be anxious about eing discharged- reminded he is staying and pt is resting with NAD no complaints at this time.
[2024-10-15 16:45] VITALS: BP 115/62; PULSE 90; RESP 22; TEMP 38.1; O2SAT 92
--- NOTE | 2024-10-15 17:06 | PC.NURSE ---
spoke to pt's sister on the phone who told this RN that pt is on a chopped diet at [facility]. diet order updated.
--- NOTE | 2024-10-15 17:57 | PC.NURSE ---
pt rectal probe shoed temp 100.6 medicated per MAR with tylenol
--- NOTE | 2024-10-15 19:17 | PC.NURSE ---
Pt continues to yell out Ma'am very loudly. Call jones in reach. Pt educated about using callbell. PT states he wants his medications to go to sleep. Educated patient that they are ordered for 9pm.
[2024-10-15 20:02] VITALS: BMI 29.0
[2024-10-15 20:31] VITALS: BP 112/60; PULSE 65; RESP 20; TEMP 37.3; O2SAT 95
[2024-10-15] MEDS: Psyllium seed 3.7 GM PACKET PO (20:38)
[2024-10-15 23:19] VITALS: BP 113/55; PULSE 74; RESP 18; TEMP 37; O2SAT 92
[2024-10-16 03:23] VITALS: BP 108/58; PULSE 76; RESP 18; TEMP 36.8; O2SAT 93
[2024-10-16 07:53] VITALS: BP 132/70; PULSE 70; RESP 18; TEMP 36.7; O2SAT 96
[2024-10-16] MEDS: Psyllium seed 3.7 GM PACKET PO ×2 (08:16→19:31)
[2024-10-16] MEDS: 0.9 % Sodium Chloride Flush 3 ML SYRINGE IVFLUSH ×3 (08:19→19:40)
[2024-10-16 11:57] VITALS: BP 112/58; PULSE 78; RESP 20; TEMP 36.9; O2SAT 94
--- NOTE | 2024-10-16 15:21 | P.PNIM_ITS ---
Subjective Subjective Date of Service: 10/16/24 Interval History: No acute issues overnight. Sats stable on room air Review of Systems Unable to obtain Physical Exam 2 Vital Signs: Vital Signs: Last Vital Signs Temp 98.5 F 10/16/24 11:57 Pulse 78 10/16/24 11:57 Resp 20 10/16/24 11:57 BP 112/58 L 10/16/24 11:57 Pulse Ox 94 10/16/24 11:57 O2 Del Method Room Air 10/16/24 11:57 BMI result Body Mass Index 29.0 Const: Other: Awake alert no acute distress Resp: Other: Clear to auscultation bilaterally with only scattered expiratory wheezes Cardio: Other: No S4; positive S1-S2; no S3 murmurs rubs or gallops GI: Other: Soft nontender nondistended normoactive bowel sounds Extrem: Other: No edema bilaterally Objective Data Active Medications Acetaminophen (Acetaminophen 325 Mg Tablet) 650 mg PO Q6H PRN PRN Reason: Pain, Mild 1-3,fever,headache Last Admin: 10/15/24 16:51 Dose: 650 mg Documented By: ROBLES Al Hydroxide/Mg Hydroxide (Magnesium Hydrox/Alum Hydrox 30 Ml Oral.Susp) 30 ml PO Q4H PRN PRN Reason: HEARTBURN OR NAUSEA Apixaban (Apixaban 5 Mg Tablet) 5 mg PO BID [facility] Last Admin: 10/16/24 08:16 Dose: 5 mg Documented By: ARCHIE Bisacodyl (Bisacodyl 10 Mg Supp.Rect) 10 mg IN DAILY PRN PRN Reason: Constipation Calcium Carbonate (Calcium Carbonate 750 Mg Tab.Chew) 750 mg PO Q4H PRN PRN Reason: Heartburn Diazepam (Diazepam 2 Mg Tablet) 2 mg PO TID [facility] Last Admin: 10/16/24 15:07 Dose: 2 mg Documented By: ARCHIE Divalproex Sodium (Divalproex Sodium Er 500 Mg Tab.Er.24h) 500 mg PO BID [facility] Last Admin: 10/16/24 08:16 Dose: 500 mg Documented By: ARCHIE Guaifenesin/Dextromethorphan (Guaifenesin Dm 100/10/5 Ml 5 Ml Syrup) 10 ml PO Q4H PRN PRN Reason: Cough/congestion Lactulose (Lactulose 20 Gm/30 Ml Solution) 20 gm PO DAILY [facility] Last Admin: 10/16/24 08:16 Dose: 20 gm Documented By: ARCHIE Magnesium Hydroxide (Milk Of Magnesia 30 Ml Oral.Susp) 30 ml PO DAILY PRN PRN Reason: Constipation Melatonin (Melatonin 3 Mg Tablet) 6 mg PO BEDTIME PRN PRN Reason: Insomnia Melatonin (Melatonin 3 Mg Tablet) 1 mg PO BEDTIME [facility] Last Admin: 10/15/24 20:39 Dose: 1 mg Documented By: BEAU Midodrine (Midodrine Hcl 5 Mg Tablet) 5 mg PO TID@0900,1400,1800 [facility] Last Admin: 10/16/24 15:13 Dose: 5 mg Documented By: ARCHIE Polyethylene Glycol (Polyethylene Glycol 3350 17 Gm Powd.Pack) 17 gm PO BID [facility] Last Admin: 10/16/24 08:16 Dose: 17 gm Documented By: ARCHIE Pregabalin (Pregabalin 100 Mg Capsule) 100 mg PO TID [facility] Last Admin: 10/16/24 15:07 Dose: 100 mg Documented By: ARCHIE Psyllium Hydrophilic Mucilloid (Psyllium Seed 3.7 Gm Packet) 3.7 gm PO BID [facility] Last Admin: 10/16/24 08:16 Dose: 3.7 gm Documented By: ARCHIE Senna/Docusate Sodium (Sennosides/Docusate Sodium Tablet) 1 tab PO BEDTIME [facility] Last Admin: 10/15/24 20:40 Dose: 1 tab Documented By: BEAU Senna/Docusate Sodium (Sennosides/Docusate Sodium Tablet) 1 tab PO DAILY PRN PRN Reason: Constipation Sodium Biphosphate/Sodium Phosphate (Sodium Phosphate,[place]-Dibasic 133 Ml Enema) 118 ml IN DAILY PRN PRN Reason: Constipation Sodium Chloride (0.9 % Sodium Chloride Flush 3 Ml Syringe) 3 ml IVFLUSH QSHIFT [facility] Last Admin: 10/16/24 15:08 Dose: 3 ml Documented By: ARCHIE Vitamin D (Cholecalciferol (Vitamin D3) 25 Mcg Tablet) 50 mcg PO DAILY [facility] Last Admin: 10/16/24 08:15 Dose: 50 mcg Documented By: ARCHIE Labs 10/15/24 04:03 10/15/24 04:03 Microbiology Microbiology Results: Microbiology 10/14/24 16:07 Blood Culture - Preliminary Blood - Venous No growth after 24 hours. 10/14/24 15:56 Blood Culture - Preliminary Blood - Venous No growth after 24 hours. Assessment and Plan (1) Acute metabolic encephalopathy: Status: Acute (2) COVID-19: Status: Acute Plan Patient is a 59-year-old male with a past medical history significant for cognitive impairment, hypertension, aspiration pneumonia, seizure disorder, history DVT/PE on Eliquis, who resides at [facility], who presented to the ED due to altered mental status and fever. 1Acute metabolic encephalopathy (resolving) with viral sepsis secondary to COVID -mental status back to baseline -we will observe overnight and follow sats -COVID + workup otherwise unremarkable ([facility] working on private room for COVID) 2.Hypertension -acceptable control off meds -can resume at [facility] [place] 1 3.Seizure disorder - continue home meds 4.History DVT/PE - continue Eliquis Med rec pending Full code VTE prophylaxis: Eliquis Quality Stroke Does the patient have a stroke diagnosis?: No VTE Prior VTE?: Yes VTE Risk Level:: Medical - moderate - high VTE Device Contraindication: Treatment Not Indicated VTE Drug Contraindication: N/A - Med Ordered
[2024-10-16 15:40] VITALS: BP 114/64; PULSE 68; RESP 18; TEMP 36.8; O2SAT 94
[2024-10-16 19:36] VITALS: BP 121/67; PULSE 91; RESP 18; TEMP 36.8; O2SAT 93
[2024-10-17] VITALS (7 sets, daily range): BP systolic 92–130; BP diastolic 58–66; PULSE 58–71; RESP 12–18; TEMP 36.4–37.1; O2SAT 91–96
[2024-10-17] MEDS: Psyllium seed 3.7 GM PACKET PO (08:09)
[2024-10-17] MEDS: 0.9 % Sodium Chloride Flush 3 ML SYRINGE IVFLUSH ×3 (08:10→20:03)
--- NOTE | 2024-10-17 13:51 | HO.PM.IMPN ---
Subjective Subjective Date of Service: 10/17/24 Interval History: not hypoxic nor short of breath Review of Systems Review of Systems: Yes all other systems are reviewed and are negative Physical Exam Vital Signs: Vital Signs: Last Vital Signs Temp 98.1 F 10/17/24 11:57 Pulse 61 10/17/24 11:57 Resp 18 10/17/24 11:57 BP 108/66 10/17/24 11:57 Pulse Ox 93 10/17/24 11:57 O2 Del Method Room Air 10/17/24 11:57 BMI result Body Mass Index 29.0 Gen: in no acute distress HEENT: sclera anicteric, moist mucus membranes Neck: supple Lungs: clear to auscultation bilaterally Heart: regular rate and rhythm, no murmurs Abd: soft, non-tender, non-distended Ext: no edema Skin: warm/well-perfused Neuro: alert and oriented x3, no focal findings Psych: appropriate affect Objective Data Active Medications Acetaminophen (Acetaminophen 325 Mg Tablet) 650 mg PO Q6H PRN PRN Reason: Pain, Mild 1-3,fever,headache Last Admin: 10/15/24 16:51 Dose: 650 mg Documented By: ROBLES Al Hydroxide/Mg Hydroxide (Magnesium Hydrox/Alum Hydrox 30 Ml Oral.Susp) 30 ml PO Q4H PRN PRN Reason: HEARTBURN OR NAUSEA Apixaban (Apixaban 5 Mg Tablet) 5 mg PO BID [facility] Last Admin: 10/17/24 08:09 Dose: 5 mg Documented By: ARCHIE Bisacodyl (Bisacodyl 10 Mg Supp.Rect) 10 mg [place] DAILY PRN PRN Reason: Constipation Calcium Carbonate (Calcium Carbonate 750 Mg Tab.Chew) 750 mg PO Q4H PRN PRN Reason: Heartburn Diazepam (Diazepam 2 Mg Tablet) 2 mg PO TID [facility] Last Admin: 10/17/24 08:09 Dose: 2 mg Documented By: ARCHIE Divalproex Sodium (Divalproex Sodium Er 500 Mg Tab.Er.24h) 500 mg PO BID [facility] Last Admin: 10/17/24 08:09 Dose: 500 mg Documented By: ARCHIE Guaifenesin/Dextromethorphan (Guaifenesin Dm 100/10/5 Ml 5 Ml Syrup) 10 ml PO Q4H PRN PRN Reason: Cough/congestion Lactulose (Lactulose 20 Gm/30 Ml Solution) 20 gm PO DAILY [facility] Last Admin: 10/17/24 08:09 Dose: 20 gm Documented By: ARCHIE Magnesium Hydroxide (Milk Of Magnesia 30 Ml Oral.Susp) 30 ml PO DAILY PRN PRN Reason: Constipation Melatonin (Melatonin 3 Mg Tablet) 6 mg PO BEDTIME PRN PRN Reason: Insomnia Melatonin (Melatonin 3 Mg Tablet) 1 mg PO BEDTIME [facility] Last Admin: 10/16/24 19:31 Dose: 1 mg Documented By: VARSHA Midodrine (Midodrine Hcl 5 Mg Tablet) 5 mg PO TID@0900,1400,1800 [facility] Last Admin: 10/17/24 08:09 Dose: 5 mg Documented By: ARCHIE Polyethylene Glycol (Polyethylene Glycol 3350 17 Gm Powd.Pack) 17 gm PO BID [facility] Last Admin: 10/17/24 08:09 Dose: 17 gm Documented By: ARCHIE Pregabalin (Pregabalin 100 Mg Capsule) 100 mg PO TID [facility] Last Admin: 10/17/24 08:09 Dose: 100 mg Documented By: ARCHIE Psyllium Hydrophilic Mucilloid (Psyllium Seed 3.7 Gm Packet) 3.7 gm PO BID [facility] Last Admin: 10/17/24 08:09 Dose: 3.7 gm Documented By: ARCHIE Senna/Docusate Sodium (Sennosides/Docusate Sodium Tablet) 1 tab PO BEDTIME [facility] Last Admin: 10/16/24 19:31 Dose: 1 tab Documented By: VARSHA Senna/Docusate Sodium (Sennosides/Docusate Sodium Tablet) 1 tab PO DAILY PRN PRN Reason: Constipation Sodium Biphosphate/Sodium Phosphate (Sodium Phosphate,[place]-Dibasic 133 Ml Enema) 118 ml [place] DAILY PRN PRN Reason: Constipation Sodium Chloride (0.9 % Sodium Chloride Flush 3 Ml Syringe) 3 ml IVFLUSH QSHIFT [facility] Last Admin: 10/17/24 08:10 Dose: 3 ml Documented By: ARCHIE Vitamin D (Cholecalciferol (Vitamin D3) 25 Mcg Tablet) 50 mcg PO DAILY [facility] Last Admin: 10/17/24 08:09 Dose: 50 mcg Documented By: ARCHIE Labs 10/15/24 04:03 10/15/24 04:03 Microbiology Microbiology Results: Microbiology 10/14/24 16:07 Blood Culture - Preliminary Blood - Venous No growth after 48 hours. 10/14/24 15:56 Blood Culture - Preliminary Blood - Venous No growth after 48 hours. Assessment and Plan (1) Acute metabolic encephalopathy: Status: Acute (2) COVID-19: Status: Acute Plan d4, 59yo M LTC resident at [facility] with cognitive impairment, seizure disorder, HTN, hx DVT/PE on apixaban, aspiration PNA sent in with AMS/fever, fond to have Covid-19 infection acute encephalopathy due to Covid-19 infection with viral sepsis - mental status back at baseline, not hypoxic, no specific Covid-19 therapy needed seizure disorder - diazepam, valproate, pregabalin hx DVT/PE - apixaban orthostasis - midodrine VTE ppx - apixaban dispo - awaiting bed at [facility] In my clinical judgment, the patient requires continued inpatient hospitalization for the following reasons: awaiting private room at [facility] due to Covid-19 infection Quality Stroke Does the patient have a stroke diagnosis?: No VTE Prior VTE?: Yes VTE Risk Level:: Medical - moderate - high VTE Device Contraindication: Treatment Not Indicated VTE Drug Contraindication: N/A - Med Ordered
--- NOTE | 2024-10-17 14:37 | MHC.CM.PN ---
Per rounds, pt. has been medically cleared to return to [facility], message sent thru care port, no response, calls to [facility], left message for DON. [facility] can arrange to have patient pickle processor, awaiting response from them.
--- NOTE | 2024-10-17 16:22 | MHC.CM.PN ---
The DON at [facility] returned call today for pt. to return there, she will arrange a ride for pt from their SNF on 10/18/24, her cell: [phone].
[2024-10-18 03:30] VITALS: BP 118/64; PULSE 57; RESP 18; TEMP 36.6; O2SAT 92
[2024-10-18 08:00] VITALS: BP 120/61; PULSE 63; RESP 20; TEMP 36.5; O2SAT 93
[2024-10-18] MEDS: 0.9 % Sodium Chloride Flush 3 ML SYRINGE IVFLUSH (08:54)
--- NOTE | 2024-10-18 10:08 | PM.DS ---
DS: Providers Provider Date of Service: 10/18/24 Date of admission: 10/14/24 19:54 Date of discharge: 10/18/24 Primary care physician: Augustine Dan, DS: Diagnosis Discharge Diagnosis (1) COVID-19: Status: Acute (2) Viral sepsis: Status: Acute (3) Acute encephalopathy due to infection: Status: Acute DS: Summary Hospital Course Hospital Course: From the history and physical by the admitting hospitalist, Irma Lewis, 10/14/24: Patient is a 59-year-old male with a past medical history significant for cognitive impairment, hypertension, aspiration pneumonia, seizure disorder, history DVT/PE on Eliquis, who resides at [facility], who presented to the ED due to altered mental status and fever. The patient had a temperature of 101.6 degrees. The patient is usually A&O x4 however today he is A&O x2. He also had a fall yesterday without a head strike onto his right arm. He does have a hematoma, x-ray negative for humerus fracture. Head CT also negative. Patient was found to be COVID positive. The patient is agitated and states I just want to rest . he denies chest pain, headache, visual changes, shortness of breath, nausea or vomiting. 59yo M LTC resident at [facility] with cognitive impairment, seizure disorder, HTN, hx DVT/PE on apixaban, aspiration PNA sent in with AMS/fever, fond to have Covid-19 infection and admitted to the hospitalist service with acute encephalopathy due to Covid-19 infection with viral sepsis. Not hypoxic, and mental status returned to baseline; no specific Covid-19 therapy needed. He was discharged back to [facility] for ongoing long-term nursing care. Time Attestation Discharge Coordination Time (in mins): 35 Quality: Safe Use of Opioids Does Pt have an Active Cancer Diagnosis on the Problem List?: No Quality: Stroke Does the patient have a stroke diagnosis?: No Physical Exam Vital Signs: Vital Signs: Last Vital Signs Temp 97.7 F 10/18/24 08:00 Pulse 63 10/18/24 08:00 Resp 20 10/18/24 08:00 BP 120/61 10/18/24 08:00 Pulse Ox 93 10/18/24 08:00 O2 Del Method Room Air 10/18/24 08:00 BMI result Body Mass Index 29.0 Gen: in no acute distress HEENT: sclera anicteric, moist mucus membranes Neck: supple Lungs: clear to auscultation bilaterally Heart: regular rate and rhythm, no murmurs Abd: soft, non-tender, non-distended Ext: no edema Skin: warm/well-perfused Neuro: alert and oriented x3, no focal findings Psych: appropriate affect DS: Data Data Completed and Pending Completed studies during hospitalization [Text1]: Laboratory Results WBC 4.3 X10*3/uL (4.8-10.8) L 10/15/24 04:03 RBC 4.09 X10*6/uL (4.60-5.80) L 10/15/24 04:03 Hgb 12.6 g/dl (14.0-18.0) L 10/15/24 04:03 Hct 37.5 % (42.0-52.0) L 10/15/24 04:03 MCV 91.7 fL (80.0-98.0) 10/15/24 04:03 MCH 30.8 pg (27.0-33.0) 10/15/24 04:03 MCHC 33.6 g/dl (31.0-36.0) 10/15/24 04:03 RDW 13.4 % (11.0-16.0) 10/15/24 04:03 Plt Count 64 X10*3/uL (160-400) L 10/15/24 04:03 MPV 11.2 fL (9.4-12.4) 10/15/24 04:03 Immature Gran % (Auto) 0.2 % (0.0-0.4) 10/15/24 04:03 Neut % (Auto) 45.0 % (45-73) 10/15/24 04:03 Lymph % (Auto) 29.3 % (20-40) 10/15/24 04:03 Sampson % (Auto) 18.5 % (2-11) H 10/15/24 04:03 Eos % (Auto) 6.3 % (0-4) H 10/15/24 04:03 Baso % (Auto) 0.7 % (0-2) 10/15/24 04:03 Lymph # (Auto) 1.3 X10*3/uL (1.2-4.9) 10/15/24 04:03 Sampson # (Auto) 0.8 X10*3/uL (0.1-1.2) 10/15/24 04:03 Eos # (Auto) 0.3 X10*3/uL (0.0-0.4) 10/15/24 04:03 Baso # (Auto) 0.0 X10*3/uL (0.0-0.2) 10/15/24 04:03 Abs Immat Gran (auto) 0.01 X10*3/uL (0.00-0.03) 10/15/24 04:03 Absolute Neuts (auto) 1.9 x10*3/uL (2.0-8.3) L 10/15/24 04:03 Absolute Nucleated RBC 0.000 X10*3/uL (0.0-0.012) 10/15/24 04:03 Nucleated RBC % (auto) 0.0 /100WBC (0.0-0.2) 10/15/24 04:03 Sodium 145 mmol/L (135-145) 10/15/24 04:03 Potassium 4.0 mmol/L (3.3-5.1) 10/15/24 04:03 Chloride 107 mmol/L (96-108) 10/15/24 04:03 Carbon Dioxide 27 mmol/L (22-29) 10/15/24 04:03 Anion Gap 15 (12-20) 10/15/24 04:03 BUN 13 mg/dL (9-16) 10/15/24 04:03 Creatinine 0.73 mg/dL (0.5-1.4) 10/15/24 04:03 Estim Creat Clear Calc 131.1 10/15/24 04:03 Estimated GFR > 60 10/15/24 04:03 Random Glucose 77 mg/dL (60-115) 10/15/24 04:03 Lactic Acid 1.3 mmol/L (0.5-2.0) 10/14/24 15:55 Calcium 8.5 mg/dL (8.4-10.2) 10/15/24 04:03 Magnesium 2.0 mg/dL (1.6-2.6) 10/14/24 15:56 Total Bilirubin 0.4 mg/dL (0.0-1.0) 10/15/24 04:03 Direct Bilirubin 0.1 mg/dL (0.0-0.5) 10/14/24 15:56 AST 21 U/L (5-37) 10/15/24 04:03 ALT < 6 U/L (0-40) 10/15/24 04:03 Alkaline Phosphatase 33 U/L (39-117) L 10/15/24 04:03 B-Natriuretic Peptide 57 pg/mL (<100) 10/14/24 15:56 Total Protein 6.0 g/dL (6.5-8.0) L 10/15/24 04:03 Albumin 3.3 g/dL (3.5-5.0) L 10/15/24 04:03 Lipase 11 U/L (8-78) 10/14/24 15:56 Urine Color Yellow 10/14/24 19:49 Urine Appearance Clear 10/14/24 19:49 Urine pH 6.0 (5.0-9.0) 10/14/24 19:49 Ur Specific Prospect 1.015 (1.005-1.025) 10/14/24 19:49 Urine Protein Negative mg/dL (Neg-Trace) 10/14/24 19:49 Urine Glucose (UA) Negative mg/dL (Negative) 10/14/24 19:49 Urine Ketones Trace mg/dL (Negative) 10/14/24 19:49 Urine Blood Negative (Negative) 10/14/24 19:49 Urine Nitrite Negative (Negative) 10/14/24 19:49 Ur Leukocyte Esterase Negative (Negative) 10/14/24 19:49 COVID-19 (DIEGO) Positive (Negative) A 10/14/24 15:58 COVID-19 Clin Com See Note 10/14/24 15:58 Discharge Plan Discharge Anticipated Discharge Date/Time: 10/18/24 10:06 Patient Disposition: Xfer SNF Discharge Diagnosis: confusion due to Covid-19 infection Referrals: [facility] [Outside] - 1 Week Referral Note: [facility]TION OF [facility] Augustine Dan DO [Primary Care Provider, Hospitalist] - 1 Week Discharge Medications: Continued (DME) abdominal binder 2xl See Rx Instructions .Route .MEDSUPPLY Qty: 1 0RF Rx Instructions: Pt to wear binder during daytime hours - may remove for shower diazepam 2 mg Tablet 2 mg PO TID melatonin 1 mg Tablet 1 mg PO BEDTIME pregabalin 100 mg Capsule 100 mg PO TID cholecalciferol (vitamin D3) 25 mcg (1,000 unit) Tablet 50 mcg PO DAILY polyethylene glycol 3350 [Miralax] 17 gram/dose powder 17 g PO BID Rx Instructions: dilute in 6-8 ounces of fluid sennosides-docusate sodium 8.6-50 mg Tablet 1 tab-cap PO DAILY PRN (Reason: Constipation) midodrine 5 mg Tablet 5 mg PO TID@0900,1400,1800 Rx Instructions: do not give last dose of day after 6PM or within 4 hrs of bedtime metoprolol succinate 25 mg Tablet Extended Release 24 Hr 25 mg PO BID Protocol: Hold for SBP/HR < HOLD for SBP < : 100 HOLD for HR < : 60 lactulose 10 gram/15 mL Solution 30 ml PO DAILY witch monica 20 % Pads, Medicated 1 pad TOPICAL NEEDED PRN (Reason: Hemorrhoids on anus) acetaminophen 325 mg Tablet 650 mg PO Q6H PRN (Reason: Fever Or Pain) bisacodyl 10 mg Suppository 10 mg IN DAILY PRN (Reason: Constipation) Fleet Enema 19-7 gram/118 mL Enema 118 ml IN DAILY PRN (Reason: Constipation) Rx Instructions: use only if bisacodyl suppository is ineffective sennosides-docusate sodium 8.6-50 mg Tablet 1 tab-cap PO BEDTIME psyllium Packet 1 packet PO BID dextromethorphan-guaifenesin [Tussin DM] 10-100 mg/5 mL Syrup 10 ml PO Q4H PRN (Reason: Cough/congestion) alum-mag hydroxide-simeth 200-200-20 mg/5 mL Suspension 30 ml PO Q4H PRN (Reason: HEARTBURN OR NAUSEA) Rx Instructions: administer between meals and at bedtime ondansetron 4 mg Tablet,Disintegrating 4 mg PO Q6H PRN (Reason: NAUSEA, VOMITING) Eliquis 5 mg Tablet 5 mg PO BID Qty: 0 0RF divalproex [Depakote ER] 500 mg tablet extended release 24 hr 500 mg PO BID Discharge Orders: Discharge Order (Routine); Ordered 10/18/24 Ordered By: Riki Schwab Diet: Advance to usual diet Activity on Discharge: As tolerated Stand Alone Forms: Patient Portal Discharge page Print Language: Hebrew Care Plan Goals: recovery from infection Health Concerns: confusion due to Covid-19 infection Plan of Treatment: continue isolation per institutional guidelines Please follow up with your primary care doctor within 1 week. Return to the hospital if you experience recurrent or worsening symptoms. Assessment: See Discharge Summary.
--- NOTE | 2024-10-18 10:23 | MHC.CM.PN ---
Addendum entered by Ifrah Eaton 10/18/24 10:25: CM RECEIVED A RETURN CALL FROM [facility], PT WILL BE PICKED UP AT 1300 HOURS CALL PLACED TO HCP, JC NGUYEN [phone], SHE IS AWARE OF DC AND AGREEABLE Original Note: PT CLEARED TO DC BACK TO [facility] CM SPOKE TO [facility] [phone], SHE WILL ARRANGE TRANSPORT ONCE CM IS INFORMED OF TRANSPORT TIME, PTS HCP WILL BE CONTACTED
[2024-10-18 12:00] VITALS: BP 110/59; PULSE 68; RESP 20; TEMP 36.2; O2SAT 92
== END 2024-10-18 13:50 | disposition skilled nursing facility (03) | DRG 720 ==
LOC: HO.ED 17:35 → HO.EDOVER 20:02 → HO.S3 10-15 14:30 → HO.EDOVER 10-15 15:37 → HO.IMC 10-15 19:20
PROVIDERS: Admitting Provider Hospitalist; Emergency Provider Emergency Medicine; PCP Hospitalist; Visit Provider Family Medicine
DX: A41.89 Other specified sepsis (principal); U07.1 COVID-19; D69.6 Thrombocytopenia, unspecified; G40.909 Epilepsy, unspecified, not intractable, without status epilepticus; I10 Essential (primary) hypertension; Z86.718 Personal history of other venous thrombosis and embolism; Z86.711 Personal history of pulmonary embolism; Z79.01 Long term (current) use of anticoagulants; Z79.899 Other long term (current) drug therapy
CPT/HCPCS: 36415; 70450; 71045; 73060; 80048; 80053; 80076; 81003; 83605; 83690; 83735; 83880; 85025; 87040; 87635; 93005; 99285; J0131; J0696; J1650; J7120

== ENCOUNTER → 2024-10-14 15:40 | Outpatient (BNV) | payer MEDICAID, SELFPAY | PROVIDERS: Admitting Provider Hospitalist; Emergency Provider Emergency Medicine; PCP Hospitalist; Visit Provider Internal Medicine Cardiovascular Disease | DX: Z13.6 Encounter for screening for cardiovascular disorders (principal); R00.0 Tachycardia, unspecified | CPT/HCPCS: 93010 ==

== ENCOUNTER → 2024-10-14 15:53 | Outpatient (BNV) | payer MEDICAID, SELFPAY | PROVIDERS: Emergency Provider Emergency Medicine; PCP Hospitalist; Visit Provider Radiology Diagnostic Radiology | DX: S09.90XA Unspecified injury of head, initial encounter (principal); S40.021A Contusion of right upper arm, initial encounter; W19.XXXA Unspecified fall, initial encounter | CPT/HCPCS: 70450; 73060 ==

== ENCOUNTER → 2024-10-14 19:54 | Outpatient (BNV) | payer MEDICAID, SELFPAY | PROVIDERS: Admitting Provider Hospitalist; Emergency Provider Emergency Medicine; PCP Hospitalist; Visit Provider Hospitalist | DX: G93.41 Metabolic encephalopathy (principal); U07.1 COVID-19 | CPT/HCPCS: 99223; 99233 ==

== ENCOUNTER 2024-11-27 14:37 | Outpatient (AMB) | payer MEDICAID, SELFPAY ==
--- NOTE | 2024-11-27 14:40 | A.OFFVIS_ITS ---
Vital Signs 11/27/24 14:41 Height 6 ft Weight 216 lb 14.958 oz BMI 29.4 BP 120/72 Blood Pressure Location Lt brachial Position Sitting Pulse 78 Pulse Source Pulse Oximeter Intake Visit Reasons: f/up Farm Machinery Assembler Required: No Commercial Artist: Commercial Artist Present Accompanied by: Sister Allergies aripiprazole (From ABILIFY) Allergy (Severe, Verified 10/14/24 15:35) Involuntary Spasms droperidol (From INAPSINE) Allergy (Severe, Verified 10/14/24 15:35) Involuntary Spasms haloperidol (From HALDOL) Allergy (Severe, Verified 10/14/24 15:35) Involuntary Spasms prochlorperazine (From COMPAZINE) Allergy (Severe, Verified 10/14/24 15:35) Involuntary Spasms promethazine (From PHENERGAN) Allergy (Severe, Verified 10/14/24 15:35) Involuntary Spasms sulfamethoxazole (From BACTRIM) Allergy (Severe, Verified 10/14/24 15:35) Anaphylaxis trimethoprim (From BACTRIM) Allergy (Severe, Verified 10/14/24 15:35) Anaphylaxis Medication List - Last Reconciled 11/27/24 by Gabby Rodarte NP-C [abdominal binder Pt to wear binder during daytime hours - may remove for shower ] acetaminophen 650 mg PO Q6H PRN alum-mag hydroxide-simeth 200-200-20 mg/5 mL 30 mL PO Q4H PRN apixaban (Eliquis) 5 mg PO BID bisacodyl 10 mg CA DAILY PRN cholecalciferol (vitamin D3) 50 mcg PO DAILY dextromethorphan-guaifenesin 10-100 mg/5 mL (Tussin DM) 10 mL PO Q4H PRN diazepam 2 mg PO TID divalproex ER (Depakote ER) 500 mg PO BID lactulose 30 mL PO DAILY melatonin 1 mg PO BEDTIME metoprolol succinate ER 25 mg See Protocol PO BID midodrine 5 mg PO TID@0900,1400,1800 ondansetron 4 mg PO Q6H PRN polyethylene glycol 3350 (Miralax) 17 grams PO BID pregabalin 100 mg PO TID psyllium 1 packet PO BID sennosides-docusate sodium 8.6-50 mg 1 tab-cap PO DAILY PRN sennosides-docusate sodium 8.6-50 mg 1 tab-cap PO BEDTIME sodium phosphates 19-7 gram/118 mL (Fleet Enema) 118 mL CA DAILY PRN witch monica 20% 1 pad topical NEEDED PRN HPI HPI f/up: Details: Matt is a 59-year-old male with past medical history of neuroleptic malignant syndrome secondary to Abilify in 2008, chronic upper extremity contractures, anxiety, hypertension, bradycardia, atrial fibrillation with cardioversion in July 2024 who presents for follow-up. Today he presents for follow-up with his sister. She is very involved in his care and goes to all his appointments with him. Patient states that he has been doing well since his last visit. He has not had any heart palpitations since his outpatient cardioversion on 07/18/2024. No shortness of breath, PND, orthopnea. His leg edema has resovled. Sister now believes that his edema may have been related to his afib. No chest discomfort at rest or with activity. No lightheadedness, presyncope, syncope. He ambulates with the use of the walker. He resides at [facility] he takes all medications as provided. On rare occassions he will have some hemorrhoidal bleeding, not recently. [facility] Medical History Encounter for cardioversion procedure Neurogenic bladder Constipation Resides in long-term facility History of GI bleed Seizure disorder Urinary incontinence Osteoarthritis Rectal prolapse Cognitive impairment Hx of deep venous thrombosis Thrombocytopenia Bilateral cataracts Personal history of COVID-19 Diverticular disease Flexion contractures OCD (obsessive compulsive disorder) History of hemodialysis Depression Neuroleptic malignant syndrome Epilepsy Deformity of left hand Generalized anxiety disorder Major depressive disorder Mild cognitive impairment Hypertension Surgical History History of incisional hernia repair (03/15/22) History of repair of rectocele Hx of appendectomy Hx of colonoscopy Family History Sister Breast CA, Onset Age: 51 Ovarian ca, Onset Age: 55 Father Prostate CA, Onset Age: 70 Mother Colorectal cancer, Onset Age: 39 Kidney carcinoma, Onset Age: 67 Maternal Grandmother Colorectal cancer, Onset Age: 70 Maternal Aunt Colorectal cancer Social History Household Members: None Household Members Other:: From [facility] Housing: [facility] Housing Other:: [facility] Are you a primary health care facility administrator to a significant other at home: No Alcohol intake: never Comment: [facility] Patient Tobacco Use Status: Never used Tobacco e-Cigarette/Vaping Use: Never Used Second Hand Smoke Exposure: No Advance Directives Date on File: 11/21/19 service: No Current occupational status: disabled Review of Systems Const All systems reviewed & are unremarkable except as noted in HPI and below ENT Denies dizziness Card Denies chest pain, Denies chest pain at rest, Denies chest pain with activity, Denies rapid heart rate, Denies pedal edema, Denies edema, Denies leg edema, Denies lightheadedness, Denies palpitations, Denies dyspnea, Denies dyspnea on exertion and Denies orthopnea Resp Denies cough, Denies dyspnea and Denies dyspnea on exertion GI Denies hematochezia and Denies change in stool character Musc Denies abnormal gait, Denies limited range of motion, Denies muscle cramps, Denies muscle weakness, Denies numbness, Denies radiating pain into limb, Denies stiffness and Denies tingling Neuro Denies abnormal gait, Denies dizziness, Denies numbness and Denies tingling Endo Denies palpitations Physical Exam Vital Signs: BMI result Body Mass Index 29.4 Const General: cooperative, healthy appearing, comfortable and no acute distress Orientation/consciousness: patient oriented x3 Neck Neck: Yes normal visual inspection Resp Effort & Inspection: normal respiratory effort Auscultation: clear to auscultation bilaterally, no rales, no rhonchi and no wheezes Cardio Rate: regular rate Rhythm: abnormal rhythm Heart sounds: S1 normal heart sound present, S2 normal heart sound present, no gallops, no murmurs and no rubs Neuro General: patient oriented x3 Extrem Other: No leg edema General: No no pedal edema and No calf tenderness Psych Appearance: grossly normal Mental Status: mental status grossly normal Speech and movement: Normal speech and movement present Assessment & Plan Assessment & Plan (1) New onset a-fib: Code(s): I48.91 - Unspecified atrial fibrillation Category: Medical Plan: New atrial fibrillation at the time of sepsis admission at [facility] in March 2024, which remained persistent. He underwent successful cardioversion on 07/18/[address] Anthony. EKG done last visit showing normal sinus rhythm, rate 70. Echocardiogram done 03/21/2024 shows EF 60-65%, mild LVH. Clinically in SR today. Continue metoprolol XL 25 mg b.i.d. for heart rate control. Continue Eliquis 5 mg b.i.d. for anticoagulation. Cardiology follow- up 6 months, sooner if needed. (2) Hypertension: Code(s): I10 - Essential (primary) hypertension Category: Medical Plan: Blood pressure goal less than 130/80. Blood pressure has been running low for the last few months and he continues to take midodrine 3 times daily. According to sister they have tried to cut down midodrine at his long-term facility and his blood pressure again goes too low. No med changes made at this time. Reviewed need for good hydration, use caution from sitting to standing. (3) Edema: Code(s): R60.9 - Edema, unspecified Category: Medical Plan: Previously reported leg edema, had normal BNP. Edema was likely related to frequent dependent position, sedentary lifestyle, venous insufficiency not excluded. Currently swelling is resolved. Reviewed low-salt diet, leg elevation, increase ambulation, increase p.o. fluid intake and compression stocking use if able. Plan We discussed the management of atrial fibrillation, including the importance of medication adherence to prevent stroke and maintain heart rhythm stability. The patient was advised to monitor for any changes in symptoms and to report them promptly. We also reviewed the past episode of hemorrhoidal bleeding and to notify [facility] staff if this reoccurs. Patient Instructions: - Continue current medications as prescribed. - Monitor for any changes in heart rhythm or symptoms and report them immediately. - Follow up in six months or sooner if symptoms recur. Patient was informed and verbally consented to the use of an ambient scribe for clinic note documentation during this visit. Visit time spent on chart review, interview, assessment, orders, documentation. Coding Level of Care Code Est Pt Level 4 (41129) Complex EM visit Add On G2211 Diagnoses New onset a-fib I48.91 Hypertension I10 Edema R60.9 Time Spent (min) 30
[2024-11-27 14:41] VITALS: BP 120/72; PULSE 78; BMI 29.4
--- OUTSIDE RECORDS SUMMARY | 2024-11-27 18:28 | XMS_ITS | Encounter Summary ---
Author Organization [facility] Address [address] [place] [address] Care Team Providers Care Speech Language Pathology Assistant Name Role Phone Augustine Dan MD Primary Care Provider [phone] Encounter Details Date Type Department Care Team (Late st Contact Info) Description 08/20/2024 Lab Requisition [facility] - Main Lab [address] [facility] [place] [address] Augustine Dan MD [address] [place] [address] [address] KALANI Camacho Encounter for therapeutic drug level monitoring; Other buttermaker (current) drug therapy Social History Tobacco Use [...] Encounter for therapeutic drug level monitoring Other buttermaker (current) drug therapy B-TYPE NATRIURETIC PEPTIDE Routine 08/20/2024 6:35 AM EDT Encounter for therapeutic drug level monitoring Other buttermaker (current) drug therapy AMMONIA Routine 08/20/2024 6:35 AM EDT Encounter for therapeutic drug level monitoring Other buttermaker (current) drug therapy VALPROIC ACID LEVEL, TOTAL Routine 08/20/2024 6:35 AM EDT Encounter for therapeutic drug level monitoring Other [facility] drug therapy BASIC METABOLIC PANEL Routine 08/20/2024 6:35 AM EDT Encounter for therapeutic drug level monitoring Other buttermaker (current) drug therapy documented in this encounter Results * SST tube (08/20/2024 6:35 AM EDT) Extra Tube Hold for add-ons. 08/20/2024 9:[address] [facility] Comment:Auto resulted. Blood Venous blood specimen / Unknown 08/20/2024 6:35 AM EDT 08/20/2024 7:28 AM EDT us Augustine Dan MD LAB BLOOD ORDERABLES Final Resul t Performing Organization Address [facility] de Phone Number [facility] [address] [place] [address], [place] [phone] * (ABNORMAL) B-type natriuretic peptide (08/20/2024 6:35 AM EDT) BNP 112(H) <=100 pcg/mL LAB CHEMISTRY METHOD 08/20/2024 10:[address] [facility] Blood Venous blood specimen / Unknown 08/20/2024 6:35 AM EDT 08/20/2024 7:28 AM EDT us Augustine Dan MD LAB BLOOD ORDERABLES Final Resul t Performing Organization Address [facility] de Phone Number [facility] [address] [place] [address], [place] [phone] * Ammonia (08/20/2024 6:35 AM EDT) Ammonia 26 11 - 35 mcmol/L LAB CHEMISTRY METHOD 08/20/2024 7:[address] [facility] Blood Venous blood specimen / Unknown 08/20/2024 6:35 AM EDT 08/20/2024 7:28 AM EDT us Augustine Dan MD LAB BLOOD ORDERABLES Final Resul t Performing Organization Address City/[facility]/ZIP Co de Phone Number [facility] [address] [place] [address], [place] [phone] * Valproic acid level, total (08/20/2024 6:35 AM EDT) [facility] Valproic Acid, Total 92 50 - 100 mcg/mL LAB CHEMISTRY METHOD 08/20/2024 8:[address] [facility] Blood Venous blood specimen / Unknown 08/20/2024 6:35 AM EDT 08/20/2024 7:28 AM EDT us Augustine Dan MD LAB BLOOD ORDERABLES Final Resul t [facility] [address] [place] [address], [place] [phone] * (ABNORMAL) Basic metabolic panel (08/20/2024 6:35 AM EDT) [facility] Sodium 141 133 - 145 mmol/L LAB [...] LAB CHEMISTRY METHOD 08/20/2024 8:[address] [facility] eGFR 101 >=60 mL/min/1. 73m2 LAB CHEMISTRY METHOD 08/20/2024 8:[address] [facility] Comment:Calculation based on the Chronic Kidney Disease Epidemiology Collaboration (CKD-EPI) equation refit without adjustment for race. BUN/Creatinine Ratio 20.7 LAB CHEMISTRY METHOD 08/20/2024 8:[address] [facility] Calcium 9.0 8.5 - 10.5 mg/dL LAB CHEMISTRY METHOD 08/20/2024 8:[address] [facility] Blood Venous blood specimen / Unknown 08/20/2024 6:35 AM EDT 08/20/2024 7:28 AM EDT us Augustine Dan MD LAB BLOOD ORDERABLES Final Resul t [facility] [address] [place] [address], documented in this encounter Visit Diagnoses Diagnosis Encounter for therapeutic drug level monitoring Other [facility] (current) drug therapy documented in this encounter Care Teams Speech Language Pathology Assistant Relationship Specialty Start Date End Date Augustine Dan MD [address] [place] [address] Dr [address] [place], [place] PCP - General Internal Medicine 04/21/24 documented as of this encounter
--- OUTSIDE RECORDS SUMMARY | 2024-11-27 18:28 | XMS_ITS | Encounter Summary ---
Author Organization [facility] Address [address] [place] [address] Care Team Providers Care Bias Cutter Helper Name Role Phone Augustine Dan MD Primary Care Provider [phone] Encounter Details Date Type Department Care Team (Late st Contact Info) Description 09/22/2024 Lab Requisition [facility] - Main Lab [address] [place] [address] Augustine Dan MD [address] [place] [address] [address] [place] Other long-term (current) drug therapy Social History Tobacco Use [...] COUNT Routine 09/22/2024 5:40 AM EDT Other long-term (current) drug therapy documented in this encounter Results * (ABNORMAL) Platelet count (09/22/2024 5:40 AM EDT) Platelets 118(L) 130 - 400 K/mcL LAB HEMETOLOGY METHOD 09/22/2024 7:28 AM EDT [facility] MPV 10.4 7.0 - 11.0 [place] LAB HEMETOLOGY METHOD 09/22/2024 7:28 AM EDT [facility] Blood Venous blood specimen / Unknown 09/22/2024 5:40 AM EDT 09/22/2024 6:39 AM EDT us Augustine Dan MD LAB BLOOD ORDERABLES Final Resul t [facility] [address] [place] [address], documented in this encounter Visit Diagnoses Diagnosis Other director long term care (current) drug therapy documented in this encounter Care Teams Bias Cutter Helper Relationship Specialty Start Date End Date Augustine Dan MD [address] [place] [address] Dr [address] [place] PCP - General Internal Medicine 04/21/24 documented as of this encounter
--- OUTSIDE RECORDS SUMMARY | 2024-11-27 18:28 | XMS_ITS | Encounter Summary ---
Author Organization [employer] Address [address] [place] [address] Care Team Providers Care Public Service Administrator Name Role Phone Augustine Dan MD Primary Care Provider [phone] Encounter Details Date Type Department Care Team (Late st Contact Info) Description 01/20/2024 Lab Requisition [facility] - Main Lab [address] [place] [address] Augustine Dan MD [address] [place] [address] [address] KALANI Camacho Urinary tract infection, [...] reflex microscopic (01/20/2024 6:00 PM EST) Specific [place] Urine 1.029 1.003 - 1.030 LAB URINALYSIS - AUTOMATED METHOD 01/20/2024 8:20 PM EST [facility] pH, Urine 5.5 5.0 - [...] Resul t [facility] [address] [place] [address], * Culture urine (01/20/2024 6:00 PM EST) Culture, Urine No growth 01/21/2024 1:22 PM EST [facility] Urine Urine specimen obtained by clean catch procedure / Unknown 01/20/2024 6:00 PM EST 01/20/2024 8:17 PM EST us Augustine Dan MD LAB MICROBIOLOGY - GENERAL ORDER KETTY Final Result [facility] ([facility]) [facility] [address] [place] [address], documented in this encounter Visit Diagnoses Diagnosis Urinary tract infection, site not specified documented in this encounter Care Teams Public Service Administrator Relationship Specialty Start Date End Date Augustine Dan MD [address] [place] [address] Dr [address] [place], [place] PCP - General Internal Medicine 04/21/24 documented as of this encounter
--- OUTSIDE RECORDS SUMMARY | 2024-11-27 18:28 | XMS_ITS | Encounter Summary ---
Author Organization [employer] Address [address] [place] [address] Care Team Providers Care Mobile Device Engineer Name Role Phone Augustine Dan MD Primary Care Provider [phone] Encounter Details Date Type Department Care Team (Late st Contact Info) Description 09/18/2024 Lab Requisition [facility] - Main Lab [address] [facility] [place] [address] Augustine Dan MD [address] [place] [address] [address] KALANI Camacho Thrombocytopenia, unspecified (CMS/HCC [...] K/mcL LAB HEMETOLOGY METHOD 09/18/2024 8:44 AM [facility] RBC 4.00(L) 4.50 - 5.50 M/mcL LAB HEMETOLOGY METHOD 09/18/2024 8:44 AM [facility] Hemoglobin 12.5(L) 13.5 - 17.5 g/dL LAB HEMETOLOGY METHOD 09/18/2024 8:44 AM [facility] Hematocrit 38.2(L) 42.0 - 54.0 % LAB HEMETOLOGY METHOD 09/18/2024 8:44 AM [facility] MCV 94.6 79.0 - 98.0 FL LAB HEMETOLOGY METHOD 09/18/2024 8:44 AM [facility] MCH 30.9 27.0 - 32.0 pcg LAB HEMETOLOGY METHOD 09/18/2024 8:44 AM [facility] MCHC 32.7 32.0 - 37.0 g/dL LAB HEMETOLOGY METHOD 09/18/2024 8:44 AM [facility] RDW 13.8 11.0 - 15.0 % LAB HEMETOLOGY METHOD 09/18/2024 8:44 AM [facility] Platelets 89(L) 130 - 400 K/mcL LAB HEMETOLOGY METHOD 09/18/2024 8:44 AM [facility] MPV 10.6 7.0 - 11.0 FL LAB HEMETOLOGY METHOD 09/18/2024 8:44 AM [facility] NRBC 0.0 <1.0 % LAB HEMETOLOGY METHOD 09/18/2024 8:44 AM [facility] NRBC Absolute 0.00 <0.10 K/mcL LAB HEMETOLOGY METHOD 09/18/2024 8:44 AM EDT [facility] Blood Venous blood specimen / Unknown 09/18/2024 6:09 AM EDT 09/18/2024 7:51 AM EDT us Augustine Dan MD LAB BLOOD ORDERABLES Final Resul t [facility] [address] [place] [address], [place] [phone] * Lipid panel with reflex to direct LDL (09/18/2024 6:09 AM EDT) Cholesterol 144 0 - 200 mg/dL LAB CHEMISTRY METHOD 09/18/2024 7:56 AM EDT [facility] Triglycerides 72 0 - 150 mg/dL LAB CHEMISTRY METHOD 09/18/2024 7:56 AM [facility] HDL 47 >=40 mg/dL LAB CHEMISTRY METHOD 09/18/2024 7:56 AM EDT [facility] LDL Calculated 83 0 - 100 mg/dL LAB CHEMISTRY METHOD 09/18/2024 7:56 AM EDT [facility] Comment:Estimated LDL Calcul ated using equation: Total cholesterol - HDL cholesterol - (Triglycerides/5) VLDL Cholesterol Von 14.4 mg/dL LAB CHEMISTRY METHOD 09/18/2024 7:56 AM [facility] Non HDL Chol. (LDL+VLDL) 97 <145 mg/dL LAB CHEMISTRY METHOD 09/18/2024 7:56 AM T [facility] Chol/HDL Ratio 3.1 0.0 - 4.4 LAB CHEMISTRY METHOD 09/18/2024 7:56 AM [facility] Blood Venous blood specimen / Unknown 09/18/2024 6:09 AM EDT 09/18/2024 7:56 AM EDT us Augustine Dan MD LAB BLOOD ORDERABLES Final Resul t Performing Organization Address City/[facility] Co de Phone Number [facility] [address] [place] [address], [place] [phone] * Prostate specific antigen screen (09/18/2024 6:09 AM EDT) PSA 0.62 0.00 - 4.00 ng/mL LAB CHEMISTRY METHOD 09/18/2024 8:42 AM EDT [facility] Blood Venous blood specimen / Unknown 09/18/2024 6:09 AM EDT 09/18/2024 7:56 AM EDT Narrative [facility] - 09/18/2024 8:42 AM EDT The Siem[employer] Chemiluminescent Immunoassay is used. Results obtained with different assay methods or kits cannot be used interchangeably. Results cannot be interpreted as absolute evidence of the presence or absence of malignant disease. Augustine Dan MD LAB BLOOD ORDERABLES Final Resul t Performing Organization Address [facility] Co de Phone Number [facility] [address] [place] [address], [place] [phone] documented in this encounter Visit Diagnoses Diagnosis Thrombocytopenia, unspecified (CMS/HCC V24) Thrombocytopenia, unspecified Encounter for screening for malignant neoplasm of prostate Encounter for screening for lipoid disorders documented in this encounter Care Teams Mobile Device Engineer Relationship Specialty Start Date End Date Augustine Dan MD [address] [place] [address] Dr [address] KALANI Camacho PCP - General Internal Medicine 04/21/24 documented as of this encounter
--- OUTSIDE RECORDS SUMMARY | 2024-11-27 18:28 | XMS_ITS | Encounter Summary ---
Author Organization [employer] Address [address] [place] [address] Care Team Providers Care Furnace Mechanic Name Role Phone Augustine Dan MD Primary Care Provider [phone] Encounter Details Date Type Department Care Team (Late st Contact Info) Description 05/21/2024 Lab Requisition [facility] - Main Lab [address] [place] [address] Augustine Dan MD [address] [place] [address] [address] KALANI Camacho Major depressive disorder, [...] AM EDT) WBC 5.4 4.8 - 10.8 K/[facility] LAB HEMETOLOGY METHOD 05/21/2024 7:48 AM EDT [facility] RBC 4.60 4.50 - 5.50 M/[facility] LAB HEMETOLOGY METHOD 05/21/2024 7:48 AM EDT [facility] LAB HEMETOLOGY METHOD 05/21/2024 7:48 AM EDT [facility] Eosinophils Relative 8.9 % LAB HEMETOLOGY METHOD 05/21/2024 7:48 AM EDT [facility] Basophils Relative 0.7 % LAB HEMETOLOGY METHOD 05/21/2024 7:48 AM EDT [facility] Immature Granulocytes Relative 0.2 % LAB HEMETOLOGY METHOD 05/21/2024 7:48 AM EDT [facility] Neutrophils Absolute 1.95 1.50 - 7.00 K/mcL LAB HEMETOLOGY METHOD 05/21/2024 7:48 AM EDT [facility] Lymphocytes Absolute 2.35 1.00 - 5.00 K/mcL LAB HEMETOLOGY METHOD 05/21/2024 7:48 AM EDT [facility] Monocytes Absolute 0.58 0.20 - 1.00 K/mcL LAB HEMETOLOGY METHOD 05/21/2024 7:48 AM EDT [facility] Eosinophils Absolute 0.48 0.00 - 0.50 K/mcL LAB HEMETOLOGY METHOD 05/21/2024 7:48 AM EDT [facility] Basophils Absolute 0.04 0.00 - 0.20 K/mcL LAB HEMETOLOGY METHOD 05/21/2024 7:48 AM EDT [facility] Immature Granulocytes Absolute 0.01 0.00 - 0.03 K/mcL LAB HEMETOLOGY METHOD 05/21/2024 7:48 AM EDT [facility] Blood Venous blood specimen / Unknown 05/21/2024 6:15 AM EDT 05/21/2024 7:29 AM EDT us Augustine Dan MD LAB BLOOD ORDERABLES Final Resul t [facility] [address] [place] [address], documented in this encounter Visit Diagnoses Diagnosis Major depressive disorder, recurrent, unspecified (CMS/[facility] V24) documented in this encounter Care Teams Furnace Mechanic Relationship Specialty Start Date End Date Augustine Dan MD [address] [place] [address] Dr [address] KALANI Camacho PCP - General Internal Medicine 04/21/24 documented as of this encounter
--- OUTSIDE RECORDS SUMMARY | 2024-11-27 18:28 | XMS_ITS | Encounter Summary ---
Author Organization [employer] Address [address] [place] [address] Care Team Providers Care Tile Mechanic Name Role Phone Augustine Dan MD Primary Care Provider [phone] Encounter Details Date Type Department Care Team (Late st Contact Info) Description 02/05/[address] [facility] - Main Lab [address] [facility] [place] [address] Augustine Dan MD [address] [place] [address] [address] KALANI Camacho Other terminal operations manager (current) drug therapy Social History Tobacco [...] GOLD Routine 02/05/2024 6:20 AM EST Other shelter (current) drug therapy PREGABALIN Routine 02/05/2024 6:20 AM EST Other shelter (current) drug therapy LEVETIRACETAM LEVEL Routine 02/05/2024 6 :20 AM EST Other terminal operations manager (current) drug therapy COMPLETE BLOOD COUNT Routine 02/05/2024 6:20 AM EST Other terminal operations manager (current) drug therapy AMMONIA Routine 02/05/2024 6:20 AM EST Other terminal operations manager (current) drug therapy VALPROIC ACID LEVEL, TOTAL Routine 02/05/2024 6:20 AM EST Other shelter (current) drug therapy COMPREHENSIVE METABOLIC PANEL Routine 02/05/2024 6:20 AM EST Other shelter (current) drug therapy documented in this encounter Results * Valproic acid level, total (02/05/2024 6:20 AM EST) Valproic Acid, Total 92 50 - 100 mcg/mL LAB CHEMISTRY METHOD 02/05/2024 7:30 PM EST [facility] Blood Venous blood specimen / Unknown 02/05/2024 6:20 AM EST 02/05/2024 7:31 AM EST us Augustine Dan MD LAB BLOOD ORDERABLES Final Resul t Performing Organization Address City/[facility]/ZIP Co de Phone Number [facility] [address] [place] [address], [place] [phone] * SST tube (02/05/2024 6:20 AM EST) Extra Tube Hold for add-ons. 02/05/2024 9:01 AM EST [facility] Comment:Auto resulted. Blood Venous blood specimen / Unknown 02/05/2024 6:20 AM EST 02/05/2024 7:31 AM EST us Augustine Dan MD LAB BLOOD ORDERABLES Final Resul t Performing Organization Address City/[facility]/ZIP Co de Phone Number [facility] [address] [place] [address], [place] [phone] * Pregabalin (02/05/2024 6:20 AM EST) Pregabalin [...] 4:05 PM EST Performed at: 01 - [employer] [address] [place] [id number] Carbon Paste Mixer Operator: Monique Gerber [facility], Phone: [phone] us Augustine Dan MD LAB BLOOD ORDERABLES Final Resul t Performing Organization Address City/[facility]/ZIP Co de Phone Number [id number] * Levetiracetam level (02/05/2024 6:20 AM EST) Levetiracetam <1.0 3.0 - 60.0 ug/mL 02/11/2024 7:53 AM EST [facility] Comment: Steady state trough serum or plasma levels following doses of 1000 to 3000 mg/Day: 3 to 37 ug/mL. The same dosage regimen will typically result in peak levels of 10 to 60 ug/mL, at approximately 1.5 hours post dose. If applicable, any drug confirmation testing reported here was developed and the performance characteristics determined by [facility]. This confirmation testing has not been cleared or approved by the FDA. The laboratory is regulated under CLIA as qualified to perform high-complexity testing. This test is used for patient testing purposes. It should not be regarded as investigational or for research. Test performed at [facility], [address] , [place] [address] Alicia Mclain MD, PhD - Applied Technologist Blood Venous blood specimen / Unknown 02/05/2024 6:20 AM EST 02/05/2024 7:25 AM EST us Augustine Dan MD LAB BLOOD ORDERABLES Final Resul t Performing Organization Address City/[facility]/ZIP Co de Phone Number [facility] [address] [place] [address] * (ABNORMAL) Ammonia (02/05/2024 6:20 AM EST) Ammonia 39(H) 11 - 35 mcmol/L LAB CHEMISTRY METHOD 02/05/2024 7:55 AM [facility] Blood Venous blood specimen / Unknown 02/05/2024 6:20 AM EST 02/05/2024 7:25 AM EST us Augustine Dan MD LAB BLOOD ORDERABLES Final Resul t [facility] [address] [place] [address], * (ABNORMAL) Complete blood count (02/05/2024 6:20 AM EST) WBC 3.9(L) 4.8 - 10.8 K/mcL LAB HEMETOLOGY METHOD 02/05/2024 7:52 AM [facility] RBC 4.90 4.50 - 5.50 M/mcL LAB HEMETOLOGY METHOD 02/05/2024 7:52 AM [facility] Hemoglobin 14.8 13.5 - 17.5 g/dL LAB HEMETOLOGY METHOD 02/05/2024 7:52 AM [facility] Hematocrit 44.4 42.0 - 54.0 % LAB HEMETOLOGY METHOD 02/05/2024 7:52 AM [facility] MCV 91.2 79.0 - 98.0 FL LAB HEMETOLOGY METHOD 02/05/2024 7:52 AM [facility] MCH 30.4 27.0 - 32.0 pcg LAB HEMETOLOGY METHOD 02/05/2024 7:52 AM [facility] MCHC 33.3 32.0 - 37.0 g/dL LAB HEMETOLOGY METHOD 02/05/2024 7:52 AM [facility] RDW 13.4 11.0 - 15.0 % LAB HEMETOLOGY METHOD 02/05/2024 7:52 AM [facility] Platelets 111(L) 130 - 400 K/mcL LAB HEMETOLOGY METHOD 02/05/2024 7:52 AM EST [facility] MPV 11.6(H) 7.0 - 11.0 FL LAB HEMETOLOGY METHOD 02/05/2024 7:52 AM EST [facility] NRBC 0.0 <1.0 % LAB HEMETOLOGY METHOD 02/05/2024 7:52 AM EST [facility] NRBC Absolute 0.00 <0.10 K/mcL LAB HEMETOLOGY METHOD 02/05/2024 7:52 AM [facility] Blood Venous blood specimen / Unknown 02/05/2024 6:20 AM EST 02/05/2024 7:25 AM EST us Augustine Dan MD LAB BLOOD ORDERABLES Final Resul t [facility] [address] [place] [address], [place] [phone] * (ABNORMAL) Comprehensive metabolic panel (02/05/2024 6:20 AM EST) Sodium 138 133 - 145 mmol/L LAB CHEMISTRY METHOD 02/05/2024 8:23 AM [facility] Potassium 4.0 3.5 - 5.5 mmol/L LAB CHEMISTRY METHOD 02/05/2024 8:23 AM [facility] Chloride 103 96 - 110 mmol/L LAB CHEMISTRY METHOD 02/05/2024 8:23 AM [facility] CO2 31 21 - 32 mmol/L LAB CHEMISTRY METHOD 02/05/2024 8:23 AM [facility] Anion Gap 4 3 - 11 LAB CHEMISTRY METHOD 02/05/2024 8:23 AM [facility] Glucose 85 70 - 100 mg/dL LAB CHEMISTRY METHOD 02/05/2024 8:23 AM [facility] BUN 21 5 - 25 mg/dL LAB CHEMISTRY METHOD 02/05/2024 8:23 AM [facility] Creatinine 0.84 0.70 - 1.30 mg/dL LAB CHEMISTRY METHOD 02/05/2024 8:23 AM [facility] eGFR 100 >=60 mL/min/1. 73m2 LAB CHEMISTRY METHOD 02/05/2024 8:23 AM [facility] Comment:Calculation based on the Chronic Kidney Disease Epidemiology Collaboration (CKD-EPI) equation refit without adjustment for race. BUN/Creatinine Ratio 25.0 LAB CHEMISTRY METHOD 02/05/2024 8:23 AM [facility] Calcium 9.0 8.5 - 10.5 mg/dL LAB CHEMISTRY METHOD 02/05/2024 8:23 AM [facility] AST (SGOT) 9(L) 10 - 42 unit/L LAB CHEMISTRY METHOD 02/05/2024 8:23 AM [facility] Comment:Results verified by repeat testing ALT (SGPT) 14 10 - 60 unit/L LAB CHEMISTRY METHOD 02/05/2024 8:23 AM [facility] Alkaline Phosphatase 49 42 - 121 unit/L LAB CHEMISTRY METHOD 02/05/2024 8:23 AM [facility] Total Protein 7.0 6.0 - 8.0 g/dL LAB CHEMISTRY METHOD 02/05/2024 8:23 AM [facility] Albumin 3.7 3.2 - 5.0 g/dL LAB CHEMISTRY METHOD 02/05/2024 8:23 AM [facility] Total Bilirubin 0.7 0.0 - 1.4 mg/dL LAB CHEMISTRY METHOD 02/05/2024 8:23 AM [facility] Blood Venous blood specimen / Unknown 02/05/2024 6:20 AM EST 02/05/2024 7:25 AM EST us Augustine Dan MD LAB BLOOD ORDERABLES Final Resul t [facility] [address] [place] [address], documented in this encounter Visit Diagnoses Diagnosis Other shelter (current) drug therapy documented in this encounter Care Teams Tile Mechanic Relationship Specialty Start Date End Date Augustine Dan MD [address] [place], [place] PCP - General Internal Medicine 04/21/24 documented as of this encounter
--- OUTSIDE RECORDS SUMMARY | 2024-11-27 18:28 | XMS_ITS | Encounter Summary ---
Author Organization [facility] Address [address] [place] [address] Care Team Providers Care Curriculum Director Name Role Phone Augustine Dan MD Primary Care Provider [phone] Encounter Details Date Type Department Care Team (Late st Contact Info) Description 10/22/2024 Lab Requisition [facility] - Main Lab [address] [facility] [place] [address] Augustine Dan MD [address] [place] [address] [address] KALANI Camacho Deficiency of other vitamins; Encounter for therapeutic drug level monitoring; Encounter for screening for other suspected endocrine disorder; Encounter for screening for other metabolic disorders Social History Tobacco Use Types Packs/Day [...] Diagnosis Comments CBC WITH AUTO DIFFERENTIAL Routine 10/22/2024 6:08 AM EDT Deficiency of other vitamins Encounter for therapeutic drug level monitoring Encounter for screening for other suspected endocrine disorder Encounter for screening for other metabolic disorders VITAMIN D 25 HYDROXY Routine 10/22/2024 6:08 AM EDT Deficiency of other vitamins Encounter for therapeutic drug level monitoring Encounter for screening for other suspected endocrine disorder Encounter for screening for other metabolic disorders CBC AND DIFFERENTIAL Routine 10/22/2024 6:08 AM EDT Deficiency of other vitamins Encounter for therapeutic drug level monitoring Encounter for screening for other suspected endocrine disorder Encounter for screening for other metabolic disorders THYROID STIMULATING HORMONE Routine 10/22/2024 6:08 AM EDT Deficiency of other vitamins Encounter for therapeutic drug level monitoring Encounter for screening for other suspected endocrine disorder Encounter for screening for other metabolic disorders COMPREHENSIVE METABOLIC PANEL Routine 10/22/2024 6:08 AM EDT Deficiency of other vitamins Encounter for therapeutic drug level monitoring Encounter for screening for other suspected endocrine disorder Encounter for screening for other metabolic disorders documented in this encounter Results * (ABNORMAL) CBC auto differential (10/22/2024 6:08 AM EDT) [facility] WBC 4.3(L) 4.8 - 10.8 K/mcL LAB HEMETOLOGY METHOD 10/22/2024 7:00 AM [facility] RBC 4.10(L) 4.50 - 5.50 M/mcL LAB HEMETOLOGY METHOD 10/22/2024 7:00 AM [facility] Hemoglobin 12.2(L) 13.5 - 17.5 g/dL LAB HEMETOLOGY METHOD 10/22/2024 7:00 AM [facility] Hematocrit 37.8(L) 42.0 - 54.0 % LAB HEMETOLOGY METHOD 10/22/2024 7:00 AM [facility] MCV 92.6 79.0 - 98.0 FL LAB HEMETOLOGY METHOD 10/22/2024 7:00 AM [facility] MCH 29.9 27.0 - 32.0 pcg LAB HEMETOLOGY METHOD 10/22/2024 7:00 AM [facility] MCHC 32.3 32.0 - 37.0 g/dL LAB HEMETOLOGY METHOD 10/22/2024 7:00 AM [facility] RDW 13.5 11.0 - 15.0 % LAB HEMETOLOGY METHOD 10/22/2024 7:00 AM [facility] Platelets 138 130 - 400 K/mcL LAB HEMETOLOGY METHOD 10/22/2024 7:00 AM [facility] MPV 10.5 7.0 - 11.0 FL LAB HEMETOLOGY METHOD 10/22/2024 7:00 AM [facility] NRBC 0.0 <1.0 % LAB HEMETOLOGY METHOD 10/22/2024 7:00 AM [facility] NRBC Absolute 0.00 <0.10 K/mcL LAB HEMETOLOGY METHOD 10/22/2024 7:00 AM [facility] Neutrophils Relative 46.7 % LAB HEMETOLOGY METHOD 10/22/2024 7:00 AM [facility] Lymphocytes Relative 36.6 % LAB HEMETOLOGY METHOD 10/22/2024 7:00 AM [facility] Monocytes Relative 10.0 % LAB HEMETOLOGY METHOD 10/22/2024 7:00 AM [facility] Eosinophils Relative 5.8 % LAB HEMETOLOGY METHOD 10/22/2024 7:00 AM [facility] Basophils Relative 0.7 % LAB HEMETOLOGY METHOD 10/22/2024 7:00 AM [facility] Immature Granulocytes Relative 0.2 % LAB HEMETOLOGY METHOD 10/22/2024 7:00 AM [facility] Neutrophils Absolute 2.00 1.50 - 7.00 K/mcL LAB HEMETOLOGY METHOD 10/22/2024 7:00 AM [facility] Lymphocytes Absolute 1.57 1.00 - 5.00 K/mcL LAB HEMETOLOGY METHOD 10/22/2024 7:00 AM [facility] Monocytes Absolute 0.43 0.20 - 1.00 K/mcL LAB HEMETOLOGY METHOD 10/22/2024 7:00 AM [facility] Eosinophils Absolute 0.25 0.00 - 0.50 K/mcL LAB HEMETOLOGY METHOD 10/22/2024 7:00 AM [facility] Basophils Absolute 0.03 0.00 - 0.20 [facility] HEMETOLOGY METHOD 10/22/2024 7:00 AM EDT [facility] Immature Granulocytes Absolute 0.01 0.00 - 0.03 [facility] LAB HEMETOLOGY METHOD 10/22/2024 7:00 AM EDT [facility] Blood Venous blood specimen / Unknown 10/22/2024 6:08 AM EDT 10/22/2024 6:38 AM EDT us Augustine Dan MD LAB BLOOD ORDERABLES Final Resul t Performing Organization Address [facility]/ZIP Co de Phone Number [facility] [address] [place] [address], [place] [phone] * Vitamin D 25 hydroxy (10/22/2024 6:08 AM EDT) Vit D, 25-Hydroxy 70.0 30.0 - 80.0 ng/mL LAB CHEMISTRY METHOD 10/22/2024 10:21 AM EDT [facility] Blood Venous blood specimen / Unknown 10/22/2024 6:08 AM EDT 10/22/2024 6:38 AM EDT us Augustine Dan MD LAB BLOOD ORDERABLES Final Resul t Performing Organization Address [facility]/ZIP Co de Phone Number [facility] [address] [place] [address], [place] [phone] * Thyroid stimulating hormone (10/22/2024 6:08 AM EDT) TSH 2.21 0.40 - 4.00 mcIU/mL LAB CHEMISTRY METHOD 10/22/2024 10:22 AM EDT [facility] Blood Venous blood specimen / Unknown 10/22/2024 6:08 AM EDT 10/22/2024 6:38 AM EDT us Augustine Dan MD LAB BLOOD ORDERABLES Final Resul t [facility] [address] [place] [address], * (ABNORMAL) Comprehensive metabolic panel (10/22/2024 6:08 AM EDT) Sodium 144 133 - 145 mmol/L LAB CHEMISTRY METHOD 10/22/2024 7:18 AM [facility] Potassium 3.6 3.5 - 5.5 mmol/L LAB CHEMISTRY METHOD 10/22/2024 7:18 AM [facility] Chloride 106 96 - 110 mmol/L LAB CHEMISTRY METHOD 10/22/2024 7:18 AM [facility] CO2 34(H) 21 - 32 mmol/L LAB CHEMISTRY METHOD 10/22/2024 7:18 AM [facility] Anion Gap 4 3 - 11 LAB CHEMISTRY METHOD 10/22/2024 7:18 AM [facility] Glucose 84 70 - 100 mg/dL LAB CHEMISTRY METHOD 10/22/2024 7:18 AM [facility] BUN 17 5 - 25 mg/dL LAB CHEMISTRY METHOD 10/22/2024 7:18 AM [facility] Creatinine 0.68(L) 0.70 - 1.30 mg/dL LAB CHEMISTRY METHOD 10/22/2024 7:18 AM [facility] eGFR 107 >=60 mL/min/1. 73m2 LAB CHEMISTRY METHOD 10/22/2024 7:18 AM [facility] Comment:Calculation based on the Chronic Kidney Disease Epidemiology Collaboration (CKD-EPI) equation refit without adjustment for race. BUN/Creatinine Ratio 25.0 LAB CHEMISTRY METHOD 10/22/2024 7:18 AM [facility] Calcium 9.0 8.5 - 10.5 mg/dL LAB CHEMISTRY METHOD 10/22/2024 7:18 AM T [facility] AST (SGOT) 11 10 - 42 unit/L LAB CHEMISTRY METHOD 10/22/2024 7:18 AM T [facility] ALT (SGPT) 15 10 - 60 unit/L LAB CHEMISTRY METHOD 10/22/2024 7:18 AM EDT [facility] Alkaline Phosphatase 42 42 - 121 unit/L LAB CHEMISTRY METHOD 10/22/2024 7:18 AM EDT [facility] Total Protein 6.1 6.0 - 8.0 g/dL LAB CHEMISTRY METHOD 10/22/2024 7:18 AM T [facility] Albumin 3.2 3.2 - 5.0 g/dL LAB CHEMISTRY METHOD 10/22/2024 7:18 AM [facility] Total Bilirubin 0.4 0.0 - 1.4 mg/dL LAB CHEMISTRY METHOD 10/22/2024 7:18 AM EDT [facility] Blood Venous blood specimen / Unknown 10/22/2024 6:08 AM EDT 10/22/2024 6:38 AM EDT us Augustine Dan MD LAB BLOOD ORDERABLES Final Resul t [facility] [address] [place] [address], documented in this encounter Visit Diagnoses Diagnosis Deficiency of other vitamins Encounter for therapeutic drug level monitoring Encounter for screening for other suspected endocrine disorder Encounter for screening for other metabolic disorders documented in this encounter Care Teams Curriculum Director Relationship Specialty Start Date End Date Augustine Dan MD [address] [place] [address] Dr Theresa [facility] [place] PCP - General Internal Medicine 04/21/24 documented as of this encounter
--- OUTSIDE RECORDS SUMMARY | 2024-11-27 18:28 | XMS_ITS | Clinical Summary ---
Author Organization [employer] Address [address] [facility] [address] [place] [address] Care Team Providers Care Production Superintendent Hydro Name Role Phone Unavailable Primary Care Provider [...]
--- OUTSIDE RECORDS SUMMARY | 2024-11-27 18:28 | XMS_ITS | Encounter Summary ---
Author Organization [employer] Address [address] [place] [address] Care Team Providers Care Svp Research & Ebusiness Operations Name Role Phone Augustine Dan MD Primary Care Provider [phone] Encounter Details Date Type Department Care Team (Late st Contact Info) Description 02/04/2024 Lab Requisition [facility] - Main Lab [address] [facility] [place] [address] Social History Tobacco Use Types [...] on filedocumented in this encounter Care Teams Svp Research & Ebusiness Operations Relationship Specialty Start Date End Date Augustine Dan MD [address] [place] [address] [address] KALANI Camacho PCP - General Internal Medicine 04/21/24 documented as of this encounter
--- OUTSIDE RECORDS SUMMARY | 2024-11-27 18:28 | XMS_ITS | Encounter Summary ---
Author Organization [facility] Address [address] [place] [address] Care Team Providers Care Paint Spray Tender Name Role Phone Augustine Dan MD Primary Care Provider [phone] Encounter Details Date Type Department Care Team (Late st Contact Info) Description 01/25/2024 Lab Requisition [facility] - Main Lab [address] [place] [address] Augustine Dan MD [address] [place] [address] [address] KALANI Camacho [facility] AMMONIA Routine 01/25/2024 6:10 AM EST Other [facility] (current) drug therapy VALPROIC ACID LEVEL, TOTAL Routine 01/25/2024 6:10 AM EST Other exterminator helper termite (current) drug therapy documented in this encounter Results * Valproic acid level, total (01/25/2024 6:10 AM EST) Valproic Acid, Total 82 50 - 100 mcg/mL LAB CHEMISTRY METHOD 01/25/2024 7:35 AM EST [facility] Blood Venous blood specimen / Unknown 01/25/2024 6:10 AM EST 01/25/2024 6:49 AM EST us Augustine Dan MD LAB BLOOD ORDERABLES Final Resul t [facility] [address] [place] [address], [place] [phone] * Ammonia (01/25/2024 6:10 AM EST) Ammonia 22 11 - 35 mcmol/L LAB CHEMISTRY METHOD 01/25/2024 7:28 AM EST [facility] Blood Venous blood specimen / Unknown 01/25/2024 6:10 AM EST 01/25/2024 6:49 AM EST us Augustine Dan MD LAB BLOOD ORDERABLES Final Resul t [facility] [address] [place] [address], [place] [phone] documented in this encounter Visit Diagnoses Diagnosis Other [facility] ([facility] drug therapy documented in this encounter Care Teams Paint Spray Tender Relationship Specialty Start Date End Date Augustine Dan MD [address] [place] [address] Dr [address] [place] PCP - General Internal Medicine 04/21/24 documented as of this encounter
--- OUTSIDE RECORDS SUMMARY | 2024-11-27 18:28 | XMS_ITS | Encounter Summary ---
Author Organization [facility] Address [address] [place] [address] Care Team Providers Care Size Maker Name Role Phone Augustine Dan MD Primary Care Provider [phone] Encounter Details Date Type Department Care Team (Late st Contact Info) Description 01/14/2024 Lab Requisition [facility] - Main Lab [address] [place] [address] Augustine Dan MD [address] [place] [address] [address] Janice MD Malignant neuroleptic syndrome Social History Tobacco Use [...] [facility] [address] [place] [address], documented in this encounter Visit Diagnoses Diagnosis Malignant neuroleptic syndrome Neuroleptic malignant syndrome documented in this encounter Care Teams Size Maker Relationship Specialty Start Date End Date Augustine Dan MD [address] [place] [address] Dr [address] Graettinger MD PCP - General Internal Medicine 04/21/24 documented as of this encounter
--- OUTSIDE RECORDS SUMMARY | 2024-11-27 18:28 | XMS_ITS | Encounter Summary ---
Author Organization [email or web address] Address [address] [facility] [address] [place] [address] Care Team Providers Care Organisation And Methods Analyst Name Role Phone Unavailable Primary Care Provider Unavailabl e Encounter Details Date Type Department Care Team (Latest Contact Info) Description 08/30/[address] [facility] CONVERSIONS Dental, Provider, DDS Social History [...]
--- OUTSIDE RECORDS SUMMARY | 2024-11-27 18:28 | XMS_ITS | Clinical Summary ---
Author Organization 299 [facility] Address [address] [place] [address] Phone Care Team Providers Care Car Electronics Installer Name Role Phone Augustine Dan MD Primary Care Provider [phone] Encounters Date Type Department Care Team Description 11/21/2024 Lab Requisition [facility] [address] [place] [phone] Augustine Dan MD Thrombocytopenia, unspecified ([facility] V24) 10/22/2024 Lab Requisition [facility] [address] [place] [phone] Augustine Dan MD Deficiency of other vitamins; Encounter for therapeutic drug level monitoring; Encounter for screening for other suspected endocrine disorder; Encounter for screening for other metabolic disorders 09/22/2024 Lab Requisition [facility] [address] [place] [phone] Augustine Dan MD Other penitentiary (current) drug therapy 09/18/2024 Lab Requisition [facility] [address] [place] [phone] Augustine Dan MD Thrombocytopenia, unspecified ([facility] V24); Encounter for screening for malignant neoplasm of prostate; Encounter for screening for lipoid disorders from Last 3 Months Social History Tobacco Use Types Packs/Day Years Used Date Smoking Tobacco: Never Assessed Sex and Gender Information Value Date Recorded Sex Assigned at Not on file Legal Sex Male 6:57 AM EST Gender Identity Not on file Sexual Orientation Not on file Plan of Treatment Health Maintenance Due Date Last Done Comments Colorectal Cancer Screening: Colonoscopy 1965 DTaP,Tdap,and Td Vaccines (1 - Tdap) 01/23/1984 Hepatitis B Vaccines (1 of 3 - 19+ 3-dose series) 01/23/1984 Pneumococcal Vaccine: 50+ Ye ars (1 of 1 - PCV) 2015 Zoster Vaccines (1 of 2) 2015 HIV Screening 01/08/2022 Hepatitis C Screening 01/08/2022 [...] Diagnosis Comments CBC WITH AUTO DIFFERENTIAL Routine 11/21/2024 7:05 AM EDT Thrombocytopenia, unspecified ([facility] V24) CBC AND DIFFERENTIAL Routine 11/21/2024 7:05 AM EDT Thrombocytopenia, unspecified (CMS/HCC V24) CBC WITH AUTO DIFFERENTIAL Routine 10/22/2024 6:08 [...] Encounter for screening for other metabolic disorders PLATELET COUNT Routine 09/22/2024 5:40 AM EDT Other tearoom host (current) drug therapy COMPLETE BLOOD COUNT Routine 09/18/2024 6:09 AM EDT Thrombocytopenia, unspecified ([facility] V24) Encounter for screening for malignant neoplasm of prostate Encounter for screening for lipoid disorders LIPID PANEL WITH REFLEX TO DIRECT LDL Routine 09/18/2024 6:09 AM EDT Thrombocytopenia, unspecified ([facility] V24) Encounter for screening for malignant neoplasm of prostate Encounter for screening for lipoid disorders PROSTATE SPECIFIC ANTIGEN SCREEN Routine 09/18/2024 6:09 AM EDT Thrombocytopenia, unspecified ([facility] V24) Encounter for screening for malignant neoplasm of prostate Encounter for screening for lipoid disorders from Last 3 Months Results * (ABNORMAL) CBC auto differential (11/21/2024 7:05 AM EDT) Only the most recent of2 resultswithin the time period is included. [facility] Signature WBC 4.6(L) 4.8 - 10.8 K/mcL LAB HEMETOLOGY METHOD 11/21/2024 8:[address] [facility] RBC 4.40(L) 4.50 - 5.50 M/mcL LAB HEMETOLOGY METHOD 11/21/2024 8:18 AM [facility] Hemoglobin 13.2(L) 13.5 - 17.5 g/dL LAB HEMETOLOGY METHOD 11/21/2024 8:18 AM [facility] LAB Hematocrit 40.6(L) 42.0 - 54.0 % LAB HEMETOLOGY METHOD 11/21/2024 8:18 AM [facility] LAB MCV 93.1 79.0 - 98.0 FL LAB HEMETOLOGY METHOD 11/21/2024 8:18 AM [facility] LAB MCH 30.3 27.0 - 32.0 pcg LAB HEMETOLOGY METHOD 11/21/2024 8:18 AM [facility] LAB MCHC 32.5 32.0 - 37.0 g/dL LAB HEMETOLOGY METHOD 11/21/2024 8:18 AM [facility] LAB RDW 13.6 11.0 - 15.0 % LAB HEMETOLOGY METHOD 11/21/2024 8:18 AM [facility] LAB Platelets 100(L) 130 - 400 K/mcL LAB HEMETOLOGY METHOD 11/21/2024 8:18 AM [facility] LAB MPV 11.3(H) 7.0 - 11.0 FL LAB HEMETOLOGY METHOD 11/21/2024 8:18 AM [facility] LAB NRBC 0.0 <1.0 % LAB HEMETOLOGY METHOD 11/21/2024 8:18 AM [facility] LAB NRBC Absolute 0.00 <0.10 K/mcL LAB HEMETOLOGY METHOD 11/21/2024 8:18 AM [facility] Neutrophils Relative 44.8 % LAB HEMETOLOGY METHOD 11/21/2024 8:18 AM [facility] Lymphocytes Relative 36.5 % LAB HEMETOLOGY METHOD 11/21/2024 8:[address] [facility] Monocytes Relative 10.5 % LAB HEMETOLOGY METHOD 11/21/2024 8:[address] [facility] Eosinophils Relative 7.3 % LAB HEMETOLOGY METHOD 11/21/2024 8:[address] [facility] Basophils Relative 0.7 % LAB HEMETOLOGY METHOD 11/21/2024 8:[address] [facility] Immature Granulocytes Relative 0.2 % LAB HEMETOLOGY METHOD 11/21/2024 8:[address] [facility] Neutrophils Absolute 2.04 1.50 - 7.00 K/mcL LAB HEMETOLOGY METHOD 11/21/2024 8:[address] [facility] Lymphocytes Absolute 1.66 1.00 - 5.00 K/mcL LAB HEMETOLOGY METHOD 11/21/2024 8:[address] [facility] Monocytes Absolute 0.48 0.20 - 1.00 K/mcL LAB HEMETOLOGY METHOD 11/21/2024 8:[address] [facility] Eosinophils Absolute 0.33 0.00 - 0.50 K/mcL LAB HEMETOLOGY METHOD 11/21/2024 8:18 AM [facility] Basophils Absolute 0.03 0.00 - 0.20 K/mcL LAB HEMETOLOGY METHOD 11/21/2024 8:[address] [facility] Immature Granulocytes Absolute 0.01 0.00 - 0.03 K/mcL LAB HEMETOLOGY METHOD 11/21/2024 8:[address] [facility] Blood Venous blood specimen / Unknown 11/21/2024 7:05 AM EDT 11/21/2024 7:42 AM EDT us Augustine Dan MD LAB BLOOD ORDERABLES Final Resul t [facility] [address] [place] [address], [place] [phone] * Vitamin D 25 hydroxy (10/22/2024 6:08 AM EDT) [facility] Vit D, 25-Hydroxy 70.0 30.0 - 80.0 ng/mL LAB CHEMISTRY METHOD 10/22/2024 10:[address] [facility] Blood Venous blood specimen / Unknown 10/22/2024 6:08 AM EDT 10/22/2024 6:38 AM EDT us Augustine Dan MD LAB BLOOD ORDERABLES Final Resul t Performing Organization Address City/[facility]/ZIP Co de Phone Number [facility] [address] [place] [address], [place] [phone] * Thyroid stimulating hormone (10/22/2024 6:08 AM EDT) [facility] TSH 2.21 0.40 - 4.00 mcIU/mL LAB CHEMISTRY METHOD 10/22/2024 10:[address] [facility] Blood Venous blood specimen / Unknown 10/22/2024 6:08 AM EDT 10/22/2024 6:38 AM EDT us Augustine Dan MD LAB BLOOD ORDERABLES Final Resul t [facility] [address] [place] [address], [place] [phone] * (ABNORMAL) Comprehensive metabolic panel (10/22/2024 6:08 AM EDT) [facility] Sodium 144 133 - 145 mmol/L LAB CHEMISTRY METHOD 10/22/2024 7:[address] [facility] Potassium 3.6 3.5 - 5.5 mmol/L LAB CHEMISTRY METHOD 10/22/2024 7:[address] [facility] Chloride 106 96 - 110 mmol/L LAB CHEMISTRY METHOD 10/22/2024 7:18 AM [facility] CO2 34(H) 21 - 32 mmol/L LAB CHEMISTRY METHOD 10/22/2024 7:18 AM [facility] Anion Gap 4 3 - 11 LAB CHEMISTRY METHOD 10/22/2024 7:18 AM [facility] Glucose 84 70 - 100 mg/dL LAB CHEMISTRY METHOD 10/22/2024 7:18 AM [facility] BUN 17 5 - 25 mg/dL LAB CHEMISTRY METHOD 10/22/2024 7:18 AM [facility] Creatinine 0.68(L) 0.70 - 1.30 mg/dL LAB CHEMISTRY METHOD 10/22/2024 7:18 AM [facility] eGFR 107 >=60 mL/min/1. 73m2 LAB CHEMISTRY METHOD 10/22/2024 7:18 AM [facility] Comment:Calculation based on the Chronic Kidney Disease Epidemiology Collaboration (CKD-EPI) equation refit without adjustment for race. BUN/Creatinine Ratio 25.0 LAB CHEMISTRY METHOD 10/22/2024 7:18 AM [facility] Calcium 9.0 8.5 - 10.5 mg/dL LAB CHEMISTRY METHOD 10/22/2024 7:18 AM [facility] AST (SGOT) 11 10 - 42 unit/L LAB CHEMISTRY METHOD 10/22/2024 7:18 AM [facility] ALT (SGPT) 15 10 - 60 unit/L LAB CHEMISTRY METHOD 10/22/2024 7:18 AM [facility] Alkaline Phosphatase 42 42 - 121 unit/L LAB CHEMISTRY METHOD 10/22/2024 7:18 AM [facility] Total Protein 6.1 6.0 - 8.0 g/dL LAB CHEMISTRY METHOD 10/22/2024 7:18 AM [facility] Albumin 3.2 3.2 - 5.0 g/dL LAB CHEMISTRY METHOD 10/22/2024 7:[address] [facility] Total Bilirubin 0.4 0.0 - 1.4 mg/dL LAB CHEMISTRY METHOD 10/22/2024 7:[address] [facility] Blood Venous blood specimen / Unknown 10/22/2024 6:08 AM EDT 10/22/2024 6:38 AM EDT us Augustine Dan MD LAB BLOOD ORDERABLES Final Resul t Performing Organization Address [facility]/ZIP Co de Phone Number [facility] [address] [place] [address], [place] [phone] * (ABNORMAL) Platelet count (09/22/2024 5:40 AM EDT) Platelets 118(L) 130 - 400 K/mcL LAB HEMETOLOGY METHOD 09/22/2024 7:[address] [facility] MPV 10.4 7.0 - 11.0 FL LAB HEMETOLOGY METHOD 09/22/2024 7:[address] [facility] Blood Venous blood specimen / Unknown 09/22/2024 5:40 AM EDT 09/22/2024 6:39 AM EDT us Augustine Dan MD LAB BLOOD ORDERABLES Final Resul t [facility] [address] [place] [address], [place] [phone] * Prostate specific antigen screen (09/18/2024 6:09 AM EDT) PSA 0.62 0.00 - 4.00 ng/mL LAB CHEMISTRY METHOD 09/18/2024 8:[address] [facility] Blood Venous blood specimen / Unknown 09/18/2024 6:09 AM EDT 09/18/2024 7:[address] [facility] - 09/18/2024 8:42 AM EDT The Siemens Advia Centaur Chemiluminescent Immunoassay is used. Results obtained with different assay methods or kits cannot be used interchangeably. Results cannot be interpreted as absolute evidence of the presence or absence of malignant disease. us Augustine Dan MD LAB BLOOD ORDERABLES Final Resul t [facility] [address] [place] [address], [place] [phone] * Lipid panel with reflex to direct LDL (09/18/2024 6:09 AM EDT) Cholesterol 144 0 - 200 mg/dL LAB CHEMISTRY METHOD 09/18/2024 7:[address] [facility] Triglycerides 72 0 - 150 mg/dL LAB CHEMISTRY METHOD 09/18/2024 7:[address] [facility] HDL 47 >=40 mg/dL LAB CHEMISTRY METHOD 09/18/2024 7:[address] [facility] LDL Calculated 83 0 - 100 mg/dL LAB CHEMISTRY METHOD 09/18/2024 7:[address] [facility] Comment:Estimated LDL Calcul ated using equation: Total cholesterol - HDL cholesterol - (Triglycerides/5) VLDL Cholesterol Von 14.4 mg/dL LAB CHEMISTRY METHOD 09/18/2024 7:[address] [facility] Non HDL Chol. (LDL+VLDL) 97 <145 mg/dL LAB CHEMISTRY METHOD 09/18/2024 7:[address] [facility] Chol/HDL Ratio 3.1 0.0 - 4.4 LAB CHEMISTRY METHOD 09/18/2024 7:56 AM [facility] Blood Venous blood specimen / Unknown 09/18/2024 6:09 AM EDT 09/18/2024 7:56 AM EDT us Augustine Dan MD LAB BLOOD ORDERABLES Final Resul t [facility] [address] [place] [address], [place] [phone] * (ABNORMAL) Complete blood count (09/18/2024 6:09 AM EDT) WBC 4.3(L) 4.8 - 10.8 K/mcL LAB HEMETOLOGY METHOD 09/18/2024 8:[address] [facility] RBC 4.00(L) 4.50 - 5.50 M/mcL LAB HEMETOLOGY METHOD 09/18/2024 8:[address] [facility] Hemoglobin 12.5(L) 13.5 - 17.5 g/dL LAB HEMETOLOGY METHOD 09/18/2024 8:[address] [facility] Hematocrit 38.2(L) 42.0 - 54.0 % LAB HEMETOLOGY METHOD 09/18/2024 8:[address] [facility] MCV 94.6 79.0 - 98.0 FL LAB HEMETOLOGY METHOD 09/18/2024 8:[address] [facility] MCH 30.9 27.0 - 32.0 pcg LAB HEMETOLOGY METHOD 09/18/2024 8:[address] [facility] MCHC 32.7 32.0 - 37.0 g/dL LAB HEMETOLOGY METHOD 09/18/2024 8:[address] [facility] RDW 13.8 11.0 - 15.0 % LAB HEMETOLOGY METHOD 09/18/2024 8:[address] [facility] Platelets 89(L) 130 - 400 K/mcL LAB HEMETOLOGY METHOD 09/18/2024 8:[address] [facility] MPV 10.6 7.0 - 11.0 FL LAB HEMETOLOGY METHOD 09/18/2024 8:[address] [facility] NRBC 0.0 <1.0 % LAB HEMETOLOGY METHOD 09/18/2024 8:[address] [facility] NRBC Absolute 0.00 <0.10 K/mcL LAB HEMETOLOGY METHOD 09/18/2024 8:[address] [facility] Blood Venous blood specimen / Unknown 09/18/2024 6:09 AM EDT 09/18/2024 7:51 AM EDT us Augustine Dan MD LAB BLOOD ORDERABLES Final Resul t [facility] [address] [place] [address], from Last 3 Months Insurance MEDICAID - [place] Care Teams Car Electronics Installer Relationship Specialty Start Date End Date Augustine Dan MD [address] [place] [address] Suite [facility] KALANI Camacho PCP - General Internal Medicine 04/21/24
--- OUTSIDE RECORDS SUMMARY | 2024-11-27 18:28 | XMS_ITS | Encounter Summary ---
Author Organization [employer] Address [address] [place] [address] Care Team Providers Care Set Up Operator Tool Name Role Phone Augustine Dan MD Primary Care Provider [phone] Encounter Details Date Type Department Care Team (Late st Contact Info) Description 02/04/2024 Lab Requisition [facility] Lab [address] [place] [address] Augustine Dan MD [address] [place] [address] [address] KALANI Camacho Dysuria Social [...] Hold for add-ons. 02/04/2024 7:02 PM EST [facility] Comment:Auto resulted. Urine Urine specimen obtained by clean catch procedure / Unknown 02/04/2024 1:30 PM EST 02/04/2024 5:27 PM EST us Augustine Dan MD LAB URINE ORDERABLES Final Resul t [facility] [address] [place] [address], * Urinalysis with reflex microscopic and culture (02/04/2024 1:30 PM EST) Specific [place] Urine 1.015 1.003 - 1.030 LAB URINALYSIS [...] MD LAB URINE ORDERABLES Final Resul t [facility] ([facility] [address] [place] [address], documented in this encounter Visit Diagnoses Diagnosis Dysuria documented in this encounter Care Teams Set Up Operator Tool Relationship Specialty Start Date End Date Augustine Dan MD [address] [place], [place] PCP - General Internal Medicine 04/21/24 documented as of this encounter
--- OUTSIDE RECORDS SUMMARY | 2024-11-27 18:28 | XMS_ITS | Encounter Summary ---
Author Organization [employer] Address [address] [place] [address] Care Team Providers Care Glass Vial Bending Conveyor Feeder Name Role Phone Augustine Dan MD Primary Care Provider [phone] Encounter Details Date Type Department Care Team (Late st Contact Info) Description 02/20/[address] [facility] - Main Lab [address] [facility] [place] [address] Augustine Dan MD [address] [place] [address] [address] KALANI Camacho Major depressive disorder, [...] CBC auto differential (02/20/2024 6:28 AM EST) [facility] WBC 4.2(L) 4.8 - 10.8 K/mcL LAB HEMETOLOGY METHOD 02/20/2024 8:35 AM [facility] RBC 4.60 4.50 - 5.50 M/mcL LAB HEMETOLOGY METHOD 02/20/2024 8:35 AM [facility] Hemoglobin 13.9 13.5 - 17.5 g/dL LAB HEMETOLOGY METHOD 02/20/2024 8:35 AM [facility] Hematocrit 43.5 42.0 - 54.0 % LAB HEMETOLOGY METHOD 02/20/2024 8:35 AM [facility] MCV 94.8 79.0 - 98.0 FL LAB HEMETOLOGY METHOD 02/20/2024 8:35 AM [facility] MCH 30.3 27.0 - 32.0 pcg LAB HEMETOLOGY METHOD 02/20/2024 8:35 AM [facility] MCHC 32.0 32.0 - 37.0 g/dL LAB HEMETOLOGY METHOD 02/20/2024 8:35 AM [facility] RDW 13.7 11.0 - 15.0 % LAB HEMETOLOGY METHOD 02/20/2024 8:35 AM [facility] Platelets 76(L) 130 - 400 K/mcL LAB HEMETOLOGY METHOD 02/20/2024 8:35 AM [facility] Comment:reviewed by slide MPV 12.0(H) 7.0 - 11.0 FL LAB HEMETOLOGY METHOD 02/20/2024 8:35 AM [facility] NRBC 0.0 <1.0 % LAB HEMETOLOGY METHOD 02/20/2024 8:35 AM [facility] NRBC Absolute 0.00 <0.10 K/mcL LAB HEMETOLOGY METHOD 02/20/2024 8:35 AM [facility] Neutrophils Relative 42.7 % LAB HEMETOLOGY METHOD 02/20/2024 8:35 AM [facility] Lymphocytes Relative 38.4 % LAB HEMETOLOGY METHOD 02/20/2024 8:35 AM [facility] Monocytes Relative 12.1 % LAB HEMETOLOGY METHOD 02/20/2024 8:35 AM [facility] Eosinophils Relative 5.9 % LAB HEMETOLOGY METHOD 02/20/2024 8:35 AM [facility] Basophils Relative 0.7 % LAB HEMETOLOGY METHOD 02/20/2024 8:35 AM [facility] Immature Granulocytes Relative 0.2 % LAB HEMETOLOGY METHOD 02/20/2024 8:35 AM [facility] Neutrophils Absolute 1.80 1.50 - 7.00 K/[facility] LAB HEMETOLOGY METHOD 02/20/2024 8:35 AM [facility] Lymphocytes Absolute 1.62 1.00 - 5.00 K/[facility] LAB HEMETOLOGY METHOD 02/20/2024 8:35 AM [facility] Monocytes Absolute 0.51 0.20 - 1.00 K/[facility] LAB HEMETOLOGY METHOD 02/20/2024 8:35 AM [facility] Eosinophils Absolute 0.25 0.00 - 0.50 K/[facility] LAB HEMETOLOGY METHOD 02/20/2024 8:35 AM [facility] Basophils Absolute 0.03 0.00 - 0.20 K/[facility] LAB HEMETOLOGY METHOD 02/20/2024 8:35 AM [facility] Immature Granulocytes Absolute 0.01 0.00 - 0.03 K/[facility] LAB HEMETOLOGY METHOD 02/20/2024 8:35 AM [facility] Blood Venous blood specimen / Unknown 02/20/2024 6:28 AM EST 02/20/2024 7:34 AM EST us Augustine Dan MD LAB BLOOD ORDERABLES Final Resul t Performing Organization Address [facility] de Phone Number [facility] [address] [place] [address], [place] [phone] * Thyroid stimulating hormone (02/20/2024 6:28 AM EST) [facility] TSH 3.34 0.40 - 4.00 mcIU/mL LAB CHEMISTRY METHOD 02/20/2024 8:25 AM EST [facility] Blood Venous blood specimen / Unknown 02/20/2024 6:28 AM EST 02/20/2024 7:34 AM EST us Augustine Dan MD LAB BLOOD ORDERABLES Final Resul t Performing Organization Address [facility] de Phone Number [facility] [address] [place] [address], [place] [phone] * Vitamin D 25 hydroxy (02/20/2024 6:28 AM EST) [facility] Vit D, 25-Hydroxy 51.1 30.0 - 80.0 ng/mL LAB CHEMISTRY METHOD 02/20/2024 8:25 AM EST [facility] Blood Venous blood specimen / Unknown 02/20/2024 6:28 AM EST 02/20/2024 7:34 AM EST us Augustine Dan MD LAB BLOOD ORDERABLES Final Resul t Performing Organization Address [facility] Co de Phone Number [facility] [address] [place] [address], [place] [phone] * (ABNORMAL) Comprehensive metabolic panel (02/20/2024 6:28 AM EST) [facility] Sodium 142 133 - 145 mmol/L LAB CHEMISTRY METHOD 02/20/2024 8:23 AM [facility] Potassium 3.5 3.5 - 5.5 mmol/L LAB CHEMISTRY METHOD 02/20/2024 8:23 AM [facility] Chloride 105 96 - 110 mmol/L LAB CHEMISTRY METHOD 02/20/2024 8:23 AM [facility] CO2 35(H) 21 - 32 mmol/L LAB CHEMISTRY METHOD 02/20/2024 8:23 AM [facility] Anion Gap 2(L) 3 - 11 LAB CHEMISTRY METHOD 02/20/2024 8:23 AM [facility] Glucose 81 70 - 100 mg/dL LAB CHEMISTRY METHOD 02/20/2024 8:23 AM [facility] BUN 22 5 - 25 mg/dL LAB CHEMISTRY METHOD 02/20/2024 8:23 AM [facility] Creatinine 0.87 0.70 - 1.30 mg/dL LAB CHEMISTRY METHOD 02/20/2024 8:23 AM [facility] eGFR 99 >=60 mL/min/1. 73m2 LAB CHEMISTRY METHOD 02/20/2024 8:23 AM [facility] Comment:Calculation based on the Chronic Kidney Disease Epidemiology Collaboration (CKD-EPI) equation refit without adjustment for race. BUN/Creatinine Ratio 25.3 LAB CHEMISTRY METHOD 02/20/2024 8:23 AM [facility] Calcium 8.6 8.5 - 10.5 mg/dL LAB CHEMISTRY METHOD 02/20/2024 8:23 AM [facility] AST (SGOT) 10 10 - 42 unit/L LAB CHEMISTRY METHOD 02/20/2024 8:23 AM [facility] ALT (SGPT) 12 10 - 60 unit/L LAB CHEMISTRY METHOD 02/20/2024 8:23 AM [facility] Alkaline Phosphatase 46 42 - 121 unit/L LAB CHEMISTRY METHOD 02/20/2024 8:23 AM [facility] Total Protein 6.0 6.0 - 8.0 g/dL LAB CHEMISTRY METHOD 02/20/2024 8:23 AM EST [facility] Albumin 3.3 3.2 - 5.0 g/dL LAB CHEMISTRY METHOD 02/20/2024 8:23 AM EST [facility] Total Bilirubin 0.6 0.0 - 1.4 mg/dL LAB CHEMISTRY METHOD 02/20/2024 8:23 AM EST [facility] Blood Venous blood specimen / Unknown 02/20/2024 6:28 AM EST 02/20/2024 7:34 AM EST us Augustine Dan MD LAB BLOOD ORDERABLES Final Resul t [facility] [address] [place] [address], documented in this encounter Visit Diagnoses Diagnosis Major depressive disorder, recurrent, unspecified (CMS/HCC V24) documented in this encounter Care Teams Glass Vial Bending Conveyor Feeder Relationship Specialty Start Date End Date Augustine Dan MD [address] [facility] P[facility] - General Internal Medicine 04/21/24 documented as of this encounter
--- OUTSIDE RECORDS SUMMARY | 2024-11-27 18:28 | XMS_ITS | Encounter Summary ---
Author Organization [employer] Address [address] [place] [address] Care Team Providers Care Hydraulic Hammer Operator Name Role Phone Augustine Dan MD Primary Care Provider [phone] Encounter Details Date Type Department Care Team (Late st Contact Info) Description 07/20/2024 Lab Requisition [facility] - Main Lab [address] [place] [address] Augustine Dan MD [address] [place] [address] [address] KALANI Camacho Other alf (current) drug therapy Social History Tobacco Use [...] GOLD Routine 07/20/2024 7:36 AM EDT Other termite exterminator (current) drug therapy COMPLETE BLOOD COUNT Routine 07/20/2024 7:36 AM EDT Other alf (current) drug therapy documented in this encounter Results * SST tube (07/20/2024 7:36 AM EDT) Extra Tube Hold for add-ons. 07/21/2024 11:01 AM EDT [place] [facility] Comment:Auto resulted. Blood Venous blood specimen / Unknown 07/20/2024 7:36 AM EDT 07/20/2024 10:15 AM EDT us Augustine Dan MD LAB BLOOD ORDERABLES Final Resul t [facility] [address] [place] [address], * (ABNORMAL) Complete blood count (07/20/2024 7:36 AM EDT) [facility] Signature WBC 4.1(L) 4.8 - 10.8 K/mcL LAB HEMETOLOGY METHOD 07/20/2024 10:35 AM EDT [facility] RBC 4.30(L) 4.50 - 5.50 M/mcL LAB HEMETOLOGY METHOD 07/20/2024 10:35 AM EDT [facility] Hemoglobin 12.8(L) 13.5 - 17.5 g/dL LAB HEMETOLOGY METHOD 07/20/2024 10:35 AM EDT [facility] Hematocrit 41.7(L) 42.0 - 54.0 % LAB HEMETOLOGY METHOD 07/20/2024 10:35 AM EDT [facility] MCV 96.8 79.0 - 98.0 FL LAB HEMETOLOGY METHOD 07/20/2024 10:35 AM EDT [facility] MCH 29.7 27.0 - 32.0 pcg LAB HEMETOLOGY METHOD 07/[facility]24 [facility] MCHC 30.7(L) 32.0 - 37.0 g/dL LAB HEMETOLOGY METHOD 07/20/2024 10:35 AM EDT [facility] RDW 13.3 11.0 - 15.0 % LAB HEMETOLOGY METHOD 07/20/2024 10:35 AM EDT [facility] Platelets 109(L) 130 - 400 K/mcL LAB HEMETOLOGY METHOD 07/20/2024 10:35 AM EDT [facility] MPV 11.8(H) 7.0 - 11.0 FL LAB HEMETOLOGY METHOD 07/20/2024 10:35 AM EDT [facility] NRBC 0.0 <1.0 % LAB HEMETOLOGY METHOD 07/20/2024 10:35 AM EDT [facility] NRBC Absolute 0.00 <0.10 K/mcL LAB HEMETOLOGY METHOD 07/20/2024 10:35 AM EDT [facility] Blood Venous blood specimen / Unknown 07/20/2024 7:36 AM EDT 07/20/2024 10:15 AM EDT us Augustine Dan MD LAB BLOOD ORDERABLES Final Resul t [facility] [address] [place] [address], documented in this encounter Visit Diagnoses Diagnosis Other alf (current) drug therapy documented in this encounter Care Teams Hydraulic Hammer Operator Relationship Specialty Start Date End Date Augustine Dan MD [address] [place], [place] PCP - General Internal Medicine 04/21/24 documented as of this encounter
--- OUTSIDE RECORDS SUMMARY | 2024-11-27 18:28 | XMS_ITS | Encounter Summary ---
Author Organization [employer] Address [address] [place] [address] Care Team Providers Care Sales Process Manager Name Role Phone Augustine Dan MD Primary Care Provider Encounter Details Date Type Department Care Team (Late st Contact Info) Description 02/08/2024 Lab Requisition [facility] - Main Lab [address] [place] [address] Augustine Dan MD [address] [place] [address] [address] KALANI Camacho Other fdc (current) drug therapy Social History Tobacco Use [...] TOTAL Routine 02/08/2024 5:05 AM EST Other fdc (current) drug therapy documented in this encounter Results * Valproic acid level, total (02/08/2024 5:05 AM EST) Valproic Acid, Total 80 50 - 100 mcg/mL LAB CHEMISTRY METHOD 02/08/2024 6:22 AM EST [facility] Blood Venous blood specimen / Unknown 02/08/2024 5:05 AM EST 02/08/2024 5:55 AM EST us Augustine Dan MD LAB BLOOD ORDERABLES Final Resul t [facility] [address] [place] [address], documented in this encounter Visit Diagnoses Diagnosis Other exterminator termite (current) drug therapy documented in this encounter Care Teams Sales Process Manager Relationship Specialty Start Date End Date Augustine Dan MD [address] [place] [address] Dr [address] KALANI Camacho PCP - General Internal Medicine 04/21/24 documented as of this encounter
--- OUTSIDE RECORDS SUMMARY | 2024-11-27 18:28 | XMS_ITS | Encounter Summary ---
Author Organization [employer] Address [address] [place] [address] Care Team Providers Care Wind Farm Operations Manager Name Role Phone Augustine Dan MD Primary Care Provider [phone] Encounter Details Date Type Department Care Team (Late st Contact Info) Description 06/20/2024 Lab Requisition [facility] - Main Lab [address] [facility] [place] [address] Augustine Dan MD [address] [place] [address] [address] [place], [place] Major depressive disorder, recurrent, unspecified (CMS/HCC V24) [...] LAB HEMETOLOGY METHOD 06/20/2024 6:59 AM EDT [facility] RBC 4.90 4.50 - 5.50 M/[facility] LAB HEMETOLOGY METHOD 06/20/2024 6:59 AM EDT [facility] Hemoglobin 15.3 13.5 - 17.5 g/dL LAB HEMETOLOGY METHOD 06/20/2024 6:59 AM EDT [facility] Hematocrit 48.3 42.0 - 54.0 % LAB HEMETOLOGY METHOD 06/20/2024 6:59 AM EDT [facility] MCV 98.0 79.0 - 98.0 FL LAB HEMETOLOGY METHOD 06/20/2024 6:59 AM EDT [facility] MCH 31.0 27.0 - 32.0 pcg LAB HEMETOLOGY METHOD 06/20/2024 6:59 AM EDT [facility] MCHC 31.7(L) 32.0 - 37.0 g/dL LAB HEMETOLOGY METHOD 06/20/2024 6:59 AM EDT [facility] RDW 13.9 11.0 - 15.0 % LAB HEMETOLOGY METHOD 06/20/2024 6:59 AM EDT [facility] Platelets 130 130 - 400 K/mcL LAB HEMETOLOGY METHOD 06/20/2024 6:59 AM EDT [facility] MPV 11.7(H) 7.0 - 11.0 FL LAB HEMETOLOGY METHOD 06/20/2024 6:59 AM EDT [facility] NRBC 0.0 <1.0 % LAB HEMETOLOGY METHOD 06/20/2024 6:59 AM EDT [facility] NRBC Absolute 0.00 <0.10 K/mcL LAB HEMETOLOGY METHOD 06/20/2024 6:59 AM EDT [facility] Blood Venous blood specimen / Unknown 06/20/2024 5:45 AM EDT 06/20/2024 6:49 AM EDT us Augustine Dan MD LAB BLOOD ORDERABLES Final Resul t [facility] [address] [place] [address], documented in this encounter Visit Diagnoses Diagnosis Major depressive disorder, recurrent, unspecified (CMS/HCC V24) documented in this encounter Care Teams Wind Farm Operations Manager Relationship Specialty Start Date End Date Augustine Dan MD [address] KALANI Camacho PCP - General Internal Medicine 04/21/24 documented as of this encounter
--- OUTSIDE RECORDS SUMMARY | 2024-11-27 18:28 | XMS_ITS | Encounter Summary ---
Author Organization [employer] Address [address] [facility] 7[address] [place] [address] Care Team Providers Care Solaris Administrator Name Role Phone Unavailable Primary Care Provider [...]
--- OUTSIDE RECORDS SUMMARY | 2024-11-27 18:28 | XMS_ITS | Encounter Summary ---
Author Organization [employer] Address [address] [place] [address] Care Team Providers Care Cartoon Animator Name Role Phone Augustine Dan MD Primary Care Provider [phone] Encounter Details Date Type Department Care Team (Late st Contact Info) Description 01/11/2024 Lab Requisition [facility] - Main Lab [address] [facility] [place] [address] Augustine Dan MD [address] [place] [address] [address] KALANI Camacho Other fci (current) drug therapy Social History Tobacco Use [...] COUNT Routine 01/11/2024 5:10 AM EST Other coffee grinder (current) drug therapy COMPREHENSIVE METABOLIC PANEL Routine 01/11/2024 5:10 AM EST Other fci (current) drug therapy documented in this encounter Results * (ABNORMAL) Comprehensive metabolic panel (01/11/2024 5:10 AM EST) Sodium 144 133 - 145 mmol/L LAB CHEMISTRY METHOD 01/11/2024 6:57 AM EST [facility] Potassium 3.8 3.5 - 5.5 mmol/L LAB CHEMISTRY METHOD 01/11/2024 6:57 AM EST [facility] Chloride 109 96 - 110 mmol/L LAB CHEMISTRY METHOD 01/11/2024 6:57 AM EST [facility] CO2 30 21 - 32 mmol/L LAB CHEMISTRY METHOD 01/11/2024 6:57 AM [facility] Anion Gap 5 3 - 11 LAB CHEMISTRY METHOD 01/11/2024 6:57 AM [facility] Glucose 87 70 - 100 mg/dL LAB CHEMISTRY METHOD 01/11/2024 6:57 AM [facility] BUN 20 5 - 25 mg/dL LAB CHEMISTRY METHOD 01/11/2024 6:57 AM [facility] Creatinine 0.82 0.70 - 1.30 mg/dL LAB CHEMISTRY METHOD 01/11/2024 6:57 AM [facility] eGFR 102 >=60 mL/min/1. 73m2 LAB CHEMISTRY METHOD 01/11/2024 6:57 AM [facility] Comment:Calculation based on the Chronic Kidney Disease Epidemiology Collaboration (CKD-EPI) equation refit without adjustment for race. BUN/Creatinine Ratio 24.4 LAB CHEMISTRY METHOD 01/11/2024 6:57 AM [facility] Calcium 9.0 8.5 - 10.5 mg/dL LAB CHEMISTRY METHOD 01/11/2024 6:57 AM [facility] AST (SGOT) 47(H) 10 - 42 unit/L LAB CHEMISTRY METHOD 01/11/2024 6:57 AM [facility] ALT (SGPT) 19 10 - 60 unit/L LAB CHEMISTRY METHOD 01/11/2024 6:57 AM [facility] Alkaline Phosphatase 46 42 - 121 unit/L LAB CHEMISTRY METHOD 01/11/2024 6:57 AM [facility] Total Protein 6.3 6.0 - 8.0 g/dL LAB CHEMISTRY METHOD 01/11/2024 6:57 AM [facility] Albumin 3.3 3.2 - 5.0 g/dL LAB CHEMISTRY METHOD 01/11/2024 6:57 AM [facility] Total Bilirubin 0.5 0.0 - 1.4 mg/dL LAB CHEMISTRY METHOD 01/11/2024 6:57 AM [facility] Blood Venous blood specimen / Unknown 01/11/2024 5:10 AM EST 01/11/2024 6:11 AM EST us Augustine Dan MD LAB BLOOD ORDERABLES Final Resul t [facility] [address] [place] [address], [place] [phone] * (ABNORMAL) Complete blood count (01/11/2024 5:10 AM EST) WBC 6.9 4.8 - 10.8 K/mcL LAB HEMETOLOGY METHOD 01/11/2024 6:52 AM [facility] RBC 4.70 4.50 - 5.50 M/mcL LAB HEMETOLOGY METHOD 01/11/2024 6:52 AM [facility] Hemoglobin 14.3 13.5 - 17.5 g/dL LAB HEMETOLOGY METHOD 01/11/2024 6:52 AM [facility] Hematocrit 43.5 42.0 - 54.0 % LAB HEMETOLOGY METHOD 01/11/2024 6:52 AM [facility] MCV 92.8 79.0 - 98.0 FL LAB HEMETOLOGY METHOD 01/11/2024 6:52 AM [facility] MCH 30.5 27.0 - 32.0 pcg LAB HEMETOLOGY METHOD 01/11/2024 6:52 AM [facility] MCHC 32.9 32.0 - 37.0 g/dL LAB HEMETOLOGY METHOD 01/11/2024 6:52 AM [facility] RDW 13.8 11.0 - 15.0 % LAB HEMETOLOGY METHOD 01/11/2024 6:52 AM [facility] Platelets 83(L) 130 - 400 K/mcL LAB HEMETOLOGY METHOD 01/11/2024 6:52 AM EST [facility] Comment:reviewed by slide MPV 12.0(H) 7.0 - 11.0 FL LAB HEMETOLOGY METHOD 01/11/2024 6:52 AM EST [facility] NRBC 0.0 <1.0 % LAB HEMETOLOGY METHOD 01/11/2024 6:52 AM EST [facility] NRBC Absolute 0.00 <0.10 K/mcL LAB HEMETOLOGY METHOD 01/11/2024 6:52 AM EST [facility] Blood Venous blood specimen / Unknown 01/11/2024 5:10 AM EST 01/11/2024 6:11 AM EST us Augustine Dan MD LAB BLOOD ORDERABLES Final Resul t [facility] [address] [place] [address], documented in this encounter Visit Diagnoses Diagnosis Other fci (current) drug therapy documented in this encounter Care Teams Cartoon Animator Relationship Specialty Start Date End Date Augustine Dan MD [address] [place] [address] Dr [address] KALANI Camacho PCP - General Internal Medicine 04/21/24 documented as of this encounter
--- OUTSIDE RECORDS SUMMARY | 2024-11-27 18:28 | XMS_ITS | Encounter Summary ---
Author Organization [employer] Address [address] [place] [address] Care Team Providers Care Cable Former Name Role Phone Augustine Dan MD Primary Care Provider [phone] Encounter Details Date Type Department Care Team (Late st Contact Info) Description 11/21/2024 Lab Requisition [facility] - Main Lab [address] [facility] [place] [address] Augustine Dan MD [address] [place] [address] [address] [place], [place] Thrombocytopenia, unspecified (CMS/HCC V24) Social History Tobacco Use [...] AM EDT Thrombocytopenia, unspecified (CMS/HCC V24) CBC AND DIFFERENTIAL Routine 11/21/2024 7:05 AM EDT Thrombocytopenia, unspecified (CMS/HCC V24) documented in this encounter Results * (ABNORMAL) CBC auto differential (11/21/2024 7:05 AM EDT) WBC 4.6(L) 4.8 - 10.8 K/[facility] LAB HEMETOLOGY METHOD 11/21/2024 8:18 AM EDT [facility] RBC 4.40(L) 4.50 - 5.50 M/[facility] LAB HEMETOLOGY METHOD 11/21/2024 8:18 AM EDT [facility] Hemoglobin 13.2(L) 13.5 - 17.5 g/dL LAB HEMETOLOGY METHOD 11/21/2024 8:18 AM [facility] Hematocrit 40.6(L) 42.0 - 54.0 % LAB HEMETOLOGY METHOD 11/21/2024 8:18 AM [facility] MCV 93.1 79.0 - 98.0 FL LAB HEMETOLOGY METHOD [facility]/21[facility]24 [facility] MCH 30.3 27.0 - 32.0 pcg LAB HEMETOLOGY METHOD 11/21/2024 8:18 AM [facility] MCHC 32.5 32.0 - 37.0 g/dL LAB HEMETOLOGY METHOD 11/21/2024 8:18 AM [facility] RDW 13.6 11.0 - 15.0 % LAB HEMETOLOGY METHOD 11/21/2024 8:18 AM [facility] Platelets 100(L) 130 - 400 K/mcL LAB HEMETOLOGY METHOD 11/21/2024 8:18 AM [facility] MPV 11.3(H) 7.0 - 11.0 FL LAB HEMETOLOGY METHOD 11/21/2024 8:18 AM [facility] NRBC 0.0 <1.0 % LAB HEMETOLOGY METHOD 11/21/2024 8:18 AM [facility] NRBC Absolute 0.00 <0.10 K/mcL LAB HEMETOLOGY METHOD 11/21/2024 8:18 AM [facility] Neutrophils Relative 44.8 % LAB HEMETOLOGY METHOD 11/21/2024 8:18 AM [facility] Lymphocytes Relative 36.5 % LAB HEMETOLOGY METHOD 11/21/2024 8:18 AM [facility] Monocytes Relative 10.5 % LAB HEMETOLOGY METHOD 11/21/2024 8:18 AM EDT [facility] Eosinophils Relative 7.3 % LAB HEMETOLOGY METHOD 11/21/2024 8:18 AM EDT [facility] Basophils Relative 0.7 % LAB HEMETOLOGY METHOD 11/21/2024 8:18 AM EDT [facility] Immature Granulocytes Relative 0.2 % LAB HEMETOLOGY METHOD 11/21/2024 8:18 AM EDT [facility] Neutrophils Absolute 2.04 1.50 - 7.00 K/mcL LAB HEMETOLOGY METHOD 11/21/2024 8:18 AM EDT [facility] Lymphocytes Absolute 1.66 1.00 - 5.00 K/mcL LAB HEMETOLOGY METHOD 11/21/2024 8:18 AM EDT [facility] Monocytes Absolute 0.48 0.20 - 1.00 K/mcL LAB HEMETOLOGY METHOD 11/21/2024 8:18 AM EDT [facility] Eosinophils Absolute 0.33 0.00 - 0.50 K/mcL LAB HEMETOLOGY METHOD 11/21/2024 8:18 AM EDT [facility] Basophils Absolute 0.03 0.00 - 0.20 K/mcL LAB HEMETOLOGY METHOD 11/21/2024 8:18 AM EDT [facility] Immature Granulocytes Absolute 0.01 0.00 - 0.03 K/mcL LAB HEMETOLOGY METHOD 11/21/2024 8:18 AM EDT [facility] Blood Venous blood specimen / Unknown 11/21/2024 7:05 AM EDT 11/21/2024 7:42 AM EDT us Augustine Dan MD LAB BLOOD ORDERABLES Final Resul t [facility] [address] [place] [address], documented in this encounter Visit Diagnoses Diagnosis Thrombocytopenia, unspecified (CMS/HCC V24) Thrombocytopenia, unspecified documented in this encounter Care Teams Cable Former Relationship Specialty Start Date End Date Augustine Dan MD [address] [place] [address] Dr [address] KALANI Camacho PCP - General Internal Medicine 04/21/24 documented as of this encounter
--- OUTSIDE RECORDS SUMMARY | 2024-11-27 18:28 | XMS_ITS | Encounter Summary ---
Author Organization [employer] Address [address] [facility] 7[address] [place] [address] Care Team Providers Care Gripper Installer Name Role Phone Unavailable Primary Care Provider [...]
--- OUTSIDE RECORDS SUMMARY | 2024-11-27 18:28 | XMS_ITS | Encounter Summary ---
Author Organization [employer] Address [address] [place] [address] Care Team Providers Care Behaviorist Name Role Phone Augustine Dan MD Primary Care Provider [phone] Encounter Details Date Type Department Care Team (Late st Contact Info) Description 01/21/[address] [facility] - Main Lab [address] [place] [address] Augustine Dan MD [address] [place] [address] [address] KALANI Camacho Major depressive [...] AM EST) WBC 4.9 4.8 - 10.8 K/[facility] LAB HEMETOLOGY METHOD 01/21/2024 7:29 AM EST [facility] RBC 5.10 4.50 - 5.50 M/mcL LAB HEMETOLOGY METHOD 01/21/2024 7:29 AM [facility] Hemoglobin 15.5 13.5 - 17.5 g/dL LAB HEMETOLOGY METHOD 01/21/2024 7:29 AM [facility] Hematocrit 48.0 42.0 - 54.0 % LAB HEMETOLOGY METHOD 01/21/2024 7:29 AM [facility] MCV 93.9 79.0 - 98.0 FL LAB HEMETOLOGY METHOD 01/21/2024 7:29 AM [facility] MCH 30.3 27.0 - 32.0 pcg LAB HEMETOLOGY METHOD 01/21/2024 7:29 AM [facility] MCHC 32.3 32.0 - 37.0 g/dL LAB HEMETOLOGY METHOD 01/21/2024 7:29 AM [facility] RDW 13.5 11.0 - 15.0 % LAB HEMETOLOGY METHOD 01/21/2024 7:29 AM [facility] Platelets 118(L) 130 - 400 K/mcL LAB HEMETOLOGY METHOD 01/21/2024 7:29 AM [facility] MPV 11.3(H) 7.0 - 11.0 FL LAB HEMETOLOGY METHOD 01/21/2024 7:29 AM [facility] NRBC 0.0 <1.0 % LAB HEMETOLOGY METHOD 01/21/2024 7:29 AM [facility] NRBC Absolute 0.00 <0.10 K/mcL LAB HEMETOLOGY METHOD 01/21/2024 7:29 AM [facility] Neutrophils Relative 37.6 % LAB HEMETOLOGY METHOD 01/21/2024 7:29 AM [facility] Lymphocytes Relative 47.7 % LAB HEMETOLOGY METHOD 01/21/2024 7:29 AM [facility] Monocytes Relative 10.2 % LAB HEMETOLOGY METHOD 01/21/2024 7:29 AM [facility] Eosinophils Relative 3.7 % LAB HEMETOLOGY METHOD 01/21/2024 7:29 AM [facility] Basophils Relative 0.6 % LAB HEMETOLOGY METHOD 01/21/2024 7:29 AM [facility] Immature Granulocytes Relative 0.2 % LAB HEMETOLOGY METHOD 01/21/2024 7:29 AM [facility] Neutrophils Absolute 1.83 1.50 - 7.00 K/mcL LAB HEMETOLOGY METHOD 01/21/2024 7:29 AM [facility] Lymphocytes Absolute 2.33 1.00 - 5.00 K/mcL LAB HEMETOLOGY METHOD 01/21/2024 7:29 AM [facility] Monocytes Absolute 0.50 0.20 - 1.00 K/mcL LAB HEMETOLOGY METHOD 01/21/2024 7:29 AM [facility] Eosinophils Absolute 0.18 0.00 - 0.50 K/mcL LAB HEMETOLOGY METHOD 01/21/2024 7:29 AM [facility] Basophils Absolute 0.03 0.00 - 0.20 K/mcL LAB HEMETOLOGY METHOD 01/21/2024 7:29 AM EST [facility] Immature Granulocytes Absolute 0.01 0.00 - 0.03 K/mcL LAB HEMETOLOGY METHOD 01/21/2024 7:29 AM [facility] Blood Venous blood specimen / Unknown 01/21/2024 6:25 AM EST 01/21/2024 7:16 AM EST us Augustine Dan MD LAB BLOOD ORDERABLES Final Resul t [facility] [address] [place] [address], * Valproic acid level, total (01/21/2024 6:25 AM EST) Valproic Acid, Total 88 50 - 100 mcg/mL LAB CHEMISTRY METHOD 01/21/2024 7:34 AM EST [facility] Blood Venous blood specimen / Unknown 01/21/2024 6:25 AM EST 01/21/2024 7:16 AM EST us Augustine Dan MD LAB BLOOD ORDERABLES Final Resul t [facility] [address] [place] [address], [place] [phone] documented in this encounter Visit Diagnoses Diagnosis Major depressive disorder, recurrent, unspecified (CMS/HCC V24) documented in this encounter Care Teams Behaviorist Relationship Specialty Start Date End Date Augustine Dan MD [address] [place] [address] [address] [place], [place] PCP - General Internal Medicine 04/21/24 documented as of this encounter
--- OUTSIDE RECORDS SUMMARY | 2024-11-27 18:28 | XMS_ITS | Encounter Summary ---
Author Organization [employer] Address [address] [place] [address] Care Team Providers Care Senior Technical Trainer Name Role Phone Augustine Dan MD Primary Care Provider [phone] Encounter Details Date Type Department Care Team (Late st Contact Info) Description 04/21/[address] [facility] - Main Lab [address] [facility] [place] [address] Augustine Dan MD [address] [place] [address] [address] KALANI Camacho Major depressive disorder, [...] CBC auto differential (04/21/2024 4:50 AM EDT) [facility] WBC 4.3(L) 4.8 - 10.8 K/mcL LAB HEMETOLOGY METHOD 04/21/2024 5:57 AM EDT [facility] RBC 4.50 4.50 - 5.50 M/mcL LAB HEMETOLOGY METHOD 04/21/2024 5:57 AM EDT [facility] Hemoglobin 13.7 13.5 - 17.5 g/dL LAB HEMETOLOGY METHOD 04/21/2024 5:57 AM EDT [facility] Hematocrit 42.9 42.0 - 54.0 % LAB HEMETOLOGY METHOD 04/[facility]24 [facility] MCV 95.8 79.0 - 98.0 FL LAB HEMETOLOGY METHOD 04/21/2024 5:[facility] MCH 30.6 27.0 - 32.0 pcg LAB HEMETOLOGY METHOD 04/21/2024 5:57 [facility] MCHC 31.9(L) 32.0 - 37.0 g/dL LAB HEMETOLOGY METHOD 04/21/2024 5:57 [facility] RDW 14.5 11.0 - 15.0 % LAB HEMETOLOGY METHOD 04/21/2024 5:57 AM EDT [facility] Platelets 84(L) 130 - 400 K/mcL LAB HEMETOLOGY METHOD 04/21/2024 5:57 AM EDT [facility] Comment:previously verified by slide MPV 12.5(H) 7.0 - 11.0 FL LAB HEMETOLOGY METHOD 04/21/2024 5:57 [facility] NRBC 0.0 <1.0 % LAB HEMETOLOGY METHOD 04/21/2024 5:57 AM EDT [facility] NRBC Absolute 0.00 <0.10 K/mcL LAB HEMETOLOGY METHOD 04/21/2024 5:57 AM EDT [facility] Neutrophils Relative 30.0 % LAB HEMETOLOGY METHOD 04/21/2024 5:[facility] Lymphocytes Relative 50.1 % LAB HEMETOLOGY METHOD 04/21/2024 5:57 AM EDT [facility] Monocytes Relative 12.3 % LAB HEMETOLOGY METHOD 04/21/2024 5:57 AM EDT [facility] Eosinophils Relative 6.7 % LAB HEMETOLOGY METHOD 04/21/2024 5:57 AM [facility] Basophils Relative 0.7 % LAB HEMETOLOGY METHOD 04/21/2024 5:57 AM [facility] Immature Granulocytes Relative 0.2 % LAB HEMETOLOGY METHOD 04/21/2024 5:57 AM [facility] Neutrophils Absolute 1.29(L) 1.50 - 7.00 K/mcL LAB HEMETOLOGY METHOD 04/21/2024 5:57 AM [facility] Lymphocytes Absolute 2.16 1.00 - 5.00 K/mcL LAB HEMETOLOGY METHOD 04/21/2024 5:57 AM [facility] Monocytes Absolute 0.53 0.20 - 1.00 K/mcL LAB HEMETOLOGY METHOD 04/21/2024 5:57 [facility] Eosinophils Absolute 0.29 0.00 - 0.50 K/mcL LAB HEMETOLOGY METHOD 04/21/2024 5:57 [facility] Basophils Absolute 0.03 0.00 - 0.20 K/mcL LAB HEMETOLOGY METHOD 04/21/2024 5:57 AM [facility] Immature Granulocytes Absolute 0.01 0.00 - 0.03 K/mcL LAB HEMETOLOGY METHOD 04/21/2024 5:57 AM EDT [facility] Blood Venous blood specimen / Unknown 04/21/2024 4:50 AM EDT 04/21/2024 5:35 AM EDT us Augustine Dan MD LAB BLOOD ORDERABLES Final Resul t Performing Organization Address [facility]/ZIP Co de Phone Number [facility] [address] [place] [address], [place] [phone] * Vitamin D 25 hydroxy (04/21/2024 4:50 AM EDT) Pathologist [facility] Vit D, 25-Hydroxy 47.8 30.0 - 80.0 ng/mL LAB CHEMISTRY METHOD 04/21/2024 6:07 AM EDT [facility] Blood Venous blood specimen / Unknown 04/21/2024 4:50 AM EDT 04/21/2024 5:35 AM EDT us Augustine Dan MD LAB BLOOD ORDERABLES Final Resul t Performing Organization Address [facility] de Phone Number [facility] [address] [place] [address], [place] [phone] * Thyroid stimulating hormone (04/21/2024 4:50 AM EDT) [facility] TSH 2.64 0.40 - 4.00 mcIU/mL LAB CHEMISTRY METHOD 04/21/2024 6:08 AM EDT [facility] Blood Venous blood specimen / Unknown 04/21/2024 4:50 AM EDT 04/21/2024 5:35 AM EDT us Augustine Dan MD LAB BLOOD ORDERABLES Final Resul t Performing Organization Address City/[facility]/ZIP Co de Phone Number [facility] [address] [place] [address], [place] [phone] * (ABNORMAL) Comprehensive metabolic panel (04/21/2024 4:50 AM EDT) [facility] Signature Sodium 143 133 - 145 mmol/L LAB CHEMISTRY METHOD 04/21/2024 5:58 AM [facility] Potassium 4.0 3.5 - 5.5 mmol/L LAB CHEMISTRY METHOD 04/21/2024 5:58 AM [facility] Chloride 105 96 - 110 mmol/L LAB CHEMISTRY METHOD 04/21/2024 5:58 AM [facility] CO2 35(H) 21 - 32 mmol/L LAB CHEMISTRY METHOD 04/21/2024 5:58 AM [facility] Anion Gap 3 3 - 11 LAB CHEMISTRY METHOD 04/21/2024 5:58 AM [facility] Glucose 90 70 - 100 mg/dL LAB CHEMISTRY METHOD 04/21/2024 5:58 AM [facility] BUN 19 5 - 25 mg/dL LAB CHEMISTRY METHOD 04/21/2024 5:58 AM [facility] Creatinine 0.87 0.70 - 1.30 mg/dL LAB CHEMISTRY METHOD 04/21/2024 5:58 AM [facility] eGFR 99 >=60 mL/min/1. 73m2 LAB CHEMISTRY METHOD 04/21/2024 5:58 AM [facility] Comment:Calculation based on the Chronic Kidney Disease Epidemiology Collaboration (CKD-EPI) equation refit without adjustment for race. BUN/Creatinine Ratio 21.8 LAB CHEMISTRY METHOD 04/21/2024 5:58 AM [facility] Calcium 9.0 8.5 - 10.5 mg/dL LAB CHEMISTRY METHOD 04/21/2024 5:58 AM [facility] AST (SGOT) 9(L) 10 - 42 unit/L LAB CHEMISTRY METHOD 04/21/2024 5:58 AM [facility] ALT (SGPT) 11 10 - 60 unit/L LAB CHEMISTRY METHOD 04/21/2024 5:58 AM EDT [facility] Alkaline Phosphatase 43 42 - 121 unit/L LAB CHEMISTRY METHOD 04/21/2024 5:58 AM EDT [facility] Total Protein 6.3 6.0 - 8.0 g/dL LAB CHEMISTRY METHOD 04/21/2024 5:58 AM EDT [facility] Albumin 3.0(L) 3.2 - 5.0 g/dL LAB CHEMISTRY METHOD 04/21/2024 5:58 AM EDT [facility] Total Bilirubin 0.5 0.0 - 1.4 mg/dL LAB CHEMISTRY METHOD 04/21/2024 5:58 AM T [facility] Blood Venous blood specimen / Unknown 04/21/2024 4:50 AM EDT 04/21/2024 5:35 AM EDT us Augustine Dan MD LAB BLOOD ORDERABLES Final Resul t [facility] [address] [place] [address], documented in this encounter Visit Diagnoses Diagnosis Major depressive disorder, recurrent, unspecified (CMS/HCC V24) documented in this encounter Care Teams Senior Technical Trainer Relationship Specialty Start Date End Date Augustine Dan MD [address] [place] [address] Dr [address] [place] PCP - General Internal Medicine 04/21/24 documented as of this encounter
--- OUTSIDE RECORDS SUMMARY | 2024-11-27 18:28 | XMS_ITS | Encounter Summary ---
Author Organization [employer] Address [address] [place] [address] Care Team Providers Care Cota Name Role Phone Augustine Dan MD Primary Care Provider [phone] Encounter Details Date Type Department Care Team (Late st Contact Info) Description 12/12/2023 Lab Requisition [facility] - Main Lab [address] [place] [address] Augustine Dan MD [address] [place] [address] [address] KALANI Camacho Major depressive disorder, [...] AM EST) WBC 4.9 4.8 - 10.8 K/[facility] LAB HEMETOLOGY METHOD 12/12/2023 6:58 AM EST [facility] RBC 4.70 4.50 - 5.50 M/mcL [...] Resul t [facility] [address] [place] [address], [place] [phone] * Valproic acid level, total (12/12/2023 5:05 AM EST) Valproic Acid, Total 78 50 - 100 mcg/mL LAB CHEMISTRY METHOD 12/12/2023 7:01 AM EST [facility] Blood Venous blood specimen / Unknown 12/12/2023 5:05 AM EST 12/12/2023 6:26 AM EST us Augustine Dan MD LAB BLOOD ORDERABLES Final Resul t [facility] [address] [place] [address], [place] [phone] documented in this encounter Visit Diagnoses Diagnosis Major depressive disorder, recurrent, unspecified (CMS/HCC V24) documented in this encounter Care Teams Cota Relationship Specialty Start Date End Date Augustine Dan MD [address] [place] [address] Dr [address] [place], [place] PCP - General Internal Medicine 04/21/24 documented as of this encounter
== END 2024-11-27 15:35 | disposition home or self-care (01) ==
LOC: HO.HCS 14:37
PROVIDERS: PCP Hospitalist; Visit Provider Nurse Practitioner Family
DX: I48.91 Unspecified atrial fibrillation (principal); I10 Essential (primary) hypertension; R60.9 Edema, unspecified
CPT/HCPCS: 99214; G2211

== ENCOUNTER → 2024-11-27 14:37 | Outpatient (BNVA) | payer MEDICAID, SELFPAY | PROVIDERS: PCP Hospitalist; Visit Provider Nurse Practitioner Family | DX: I10 Essential (primary) hypertension (principal); I48.91 Unspecified atrial fibrillation; R60.9 Edema, unspecified | CPT/HCPCS: 99212 ==